=== PATIENT | female | born 1995 | race Caucasian/White ===

== ENCOUNTER 2017-11-08 05:49 | Emergency (ER) | payer MEDICAID, SELFPAY ==
[2017-11-08 05:50] VITALS: BP 150/94; PULSE 70; RESP 18; TEMP 36.5; O2SAT 96; BMI 27.6
--- NOTE | 2017-11-08 05:52 | ED.VISSUMM ---
- ER Visit Summary Date of Service: 11/08/17 Chief Complaint: [] Nausea and vomiting and diarrhea after eating [employer] History of Present Illness: The patient is a 21 F developed nausea vomiting 5 hours ago after eating pasta [employer]. 5 episodes of loose watery diarrhea. No home treatment. She has some stomach cramps diffusely. Physical Examination: Vital signs reviewed General: Well-nourished well-developed Head: Normocephalic atraumatic Eyes: Pupils equal round and reactive to light extraocular movements intact ENT: TMs clear no hemotympanum no trauma Neck: Nontender full range of motion Cardiovascular: Regular rate rhythm no murmurs normal S1-S2 Respiratory: No distress clear to auscultation bilaterally chest nontender Abdomen: Soft nontender nondistended normal bowel sounds no masses Back: Nontender no CVA tenderness Extremities: Nontender active range of motion ?4 extremities no trauma Skin: Normal color no trauma Neuro alert oriented cranial nerves II through XII intact normal strength sensation reflexes Test Results: [] Emergency Department Course and Treatment: This time patient has no evidence of dehydration. Resting comfortably. Given oral Zofran and Imodium. Offer IV fluids but patient declined. I do not feel she needs labs. Should last less than a day. I think she has food poisoning. Given a prescription for Zofran for home and will continue Imodium and Pepto-Bismol. Treatment Plan: [] Disposition: [] Impression: [] Nausea vomiting diarrhea suspected food poisoning This note was generated with [employer] dictation software. It may contain incorrect words, spelling, and punctuation that were not noted in review of the chart prior to signing ED Disposition - Plan for ED Patient: Chief Complaint: Nausea/Vomiting/Diarrhea Referrals: David Mckinney MD [Primary Care Provider] -
--- NOTE | 2017-11-08 05:53 | ED.DEP ---
ED Disposition - Plan for ED Patient: Disposition: Home or Assisted Living Chief Complaint: Nausea/Vomiting/Diarrhea Instructions: ED Gastroenteritis Vs Food Poison Prescriptions: Ondansetron [Zofran Odt] 8 mg PO Q8H PRN PRN #10 tab PRN Reason: Nausea Referrals: David Mckinney MD [Primary Care Provider] -
[2017-11-08] MEDS: Ondansetron ODT 4 MG Tablet 8 MG PO (05:57)
== END 2017-11-08 06:08 | disposition home or self-care (01) ==
LOC: ED 06:05
PROVIDERS: Emergency Provider Emergency Medicine; Family Provider Family Medicine; PCP Family Medicine
DX: R11.2 Nausea with vomiting, unspecified (principal); R19.7 Diarrhea, unspecified
CPT/HCPCS: 99283

== ENCOUNTER 2017-12-28 23:31 | Emergency (ER) | payer MEDICAID, SELFPAY ==
[2017-12-28 23:33] VITALS: BP 146/97; PULSE 85; RESP 14; TEMP 36.7; O2SAT 97; BMI 28.3
--- NOTE | 2017-12-29 01:38 | ED.DEP ---
ED Disposition - Plan for ED Patient: Chief Complaint: Wound Check Instructions: ED Fingernail Infec Referrals: David Mckinney MD [Primary Care Provider] -
[2017-12-29 01:51] VITALS: BP 148/99; PULSE 57; O2SAT 100
--- NOTE | 2017-12-29 01:55 | NURSING ---
DRY DRESSING APPLIED TO RIGHT MIDDLE FINGER TO ABSORB DRAINAGE.
--- NOTE | 2017-12-29 02:21 | ED.DCSUM_ITS ---
- ER Visit Summary Date of Service: 12/29/17 Chief Complaint: Right middle finger infection History of Present Illness: The patient is a 22 F presenting with right middle finger infection. She states this started last Friday. She was seen by her primary care physician on Friday and was put on Keflex. Her symptoms have not improved. She complains of persistent pain in the right middle finger. Denies fever. Denies other complaints. Physical Examination: Vitals are stable. Patient is afebrile. Alert no acute distress. HEENT exam is unremarkable. Neck is supple. Lungs are clear and equal bilaterally. Heart is regular rate and rhythm. Extremities right middle finger paronychia with no evidence of felon. Skin is warm and dry. No focal neurologic deficit. Remainder of exam is unremarkable. Emergency Department Course and Treatment: Digital block was performed. I&D was performed. Incised with 11 blade, small amount of pus was drained. Irrigated with saline. Patient tolerated this well. Advised to continue her antibiotics until complete. Advised to watch for worsening signs of infection. Advised to follow up with primary care physician. Advised return to ED if worsening complaints. Disposition: Discharge home Impression: Right middle finger paronychia, I&D This note was generated with [employer] dictation software. It may contain incorrect words, spelling, and punctuation that were not noted in review of the chart prior to signing ED Disposition - Plan for ED Patient: Disposition: Home or Assisted Living Chief Complaint: Wound Check Instructions: ED Fingernail Infec Referrals: David Mckinney MD [Primary Care Provider] -
== END 2017-12-29 01:55 | disposition home or self-care (01) ==
PROVIDERS: Emergency Provider Emergency Medicine; Family Provider Family Medicine; PCP Family Medicine
DX: L03.011 Cellulitis of right finger (principal); Z72.0 Tobacco use
CPT/HCPCS: 10060; 99282

== ENCOUNTER 2018-01-12 16:56 | Emergency (ER) | payer MEDICAID, SELFPAY ==
[2018-01-12 16:57] VITALS: BP 149/75; PULSE 98; RESP 16; TEMP 36.8; O2SAT 97; BMI 27.4
[2018-01-12 17:46] VITALS: O2SAT 99
--- NOTE | 2018-01-12 17:46 | ED.VISSUMM ---
- ER Visit Summary Date of Service: 01/12/18 Chief Complaint: [Cough] History of Present Illness: The patient is a 22 F [presents the emergency department with complaint of a cough that started about 4 days ago. Patient states that she was in [place] with family members and everybody got sick once they came back home. Patient's complaining of a sore throat and pain in both ears. Patient had low-grade fever up to 100 home. Patient is coughing up some clear phlegm at times. He denies any shortness of breath.] Physical Examination: [HEENT-PERRLA, EOMI. Cranial nerves II through XII grossly intact. TMs clear. Mucous membranes moist. No adenopathy. No pharyngeal erythema or exudates. Uvula in midline. No trismus. Cardiovascular-regular rate and rhythm without murmur or ectopy Lungs-clear to auscultation, chest wall stable without crepitus or subcu emphysema Abdomen-normoactive bowel sounds, soft, nontender, no rebound or rigidity, no peritoneal signs. Extremities-intact ?4, normal range of motion, normal pulses, atraumatic] Test Results: [None indicated] Emergency Department Course and Treatment: [I discussed with patient that I felt patient likely had a viral upper respiratory infection and recommended symptomatic treatment with antitussive. Patient advised to use ibuprofen and Tylenol for discomfort] Treatment Plan: [Patient follow-up primary care physician in 5-7 days. Patient will be given a prescription for Tessalon Perles] Disposition: [Discharged home in stable condition] Impression: [Viral upper respiratory infection] This note was generated with [employer] dictation software. It may contain incorrect words, spelling, and punctuation that were not noted in review of the chart prior to signing ED Disposition - Plan for ED Patient: Chief Complaint: Cold Sx Referrals: David Mckinney MD [Primary Care Provider] -
--- NOTE | 2018-01-12 17:48 | ED.DEP ---
ED Disposition - Plan for ED Patient: Chief Complaint: Cold Sx Instructions: ED Upper Resp Infec No Abx Tx Prescriptions: Benzonatate [Tessalon Perle] 200 mg PO TID PRN PRN #20 cap PRN Reason: Cough Referrals: David Mckinney MD [Primary Care Provider] - 5-7 Days
== END 2018-01-12 18:04 | disposition home or self-care (01) ==
PROVIDERS: Emergency Provider Emergency Medicine; Family Provider Family Medicine; PCP Family Medicine
DX: J06.9 Acute upper respiratory infection, unspecified (principal); Z72.0 Tobacco use
CPT/HCPCS: 99282

== ENCOUNTER 2018-03-13 14:35 | Emergency (ER) | payer MEDICAID, SELFPAY ==
[2018-03-13 14:36] VITALS: BP 129/84; PULSE 75; RESP 16; TEMP 37; O2SAT 98; BMI 27.9
--- NOTE | 2018-03-13 15:41 | ED.DCSUM_ITS ---
- ER Visit Summary Date of Service: 03/13/18 Chief Complaint: Sore throat History of Present Illness: The patient is a 22 F no significant past medical or surgical history. I have a 2-day history of sore throat. Patient also thinks she is early . Her menstrual periods several days late. She denies abdominal pain. She denies any pelvic pain or vaginal bleeding. She denies any fever. She has had some chills. Physical Examination: Vital signs are stable. Afebrile. Pulse ox 90% on room air no signs of hypoxia. Patient no distress. Does not look septic or toxic. H EENT exam minimal erythema posterior pharynx. Tonsils are not enlarged. They are not touching. Airway is patent. No exudate. No peritonsillar abscess. No drooling. No stridor. TMs are normal. Neck nontender. One mildly tender lymph node on the left. Trachea midline. Lungs clear to auscultation bilaterally. Heart regular rhythm no murmur. Abdomen soft and nontender. Normal bowel sounds. No peritoneal signs. Moving all 4 extremities. Neurovascular intact. Skin unremarkable. No rashes. Back nontender. Neurologically she is awake alert without focal motor deficits. Test Results: Discussed with patient and she deferred a rapid strep. She is already taken a test at home that was positive also. Emergency Department Course and Treatment: Clinically this appears to be a viral pharyngitis. She has no exudate. No significant lymphadenopathy. Treatment Plan: Plenty of fluids and rest. Warm salt water gargling. Chloraseptic spray. Tylenol. Disposition: Discharge Impression: Acute viral pharyngitis Reportedly first trimester This note was generated with [employer] (ac[employer] dictation software. It may contain incorrect words, spelling, and punctuation that were not noted in review of the chart prior to signing ED Disposition - Plan for ED Patient: Chief Complaint: Sore Throat Referrals: David Mckinney MD [Primary Care Provider] -
--- NOTE | 2018-03-13 15:41 | ED.DEP ---
ED Disposition - Plan for ED Patient: Disposition: Home or Assisted Living Chief Complaint: Sore Throat Instructions: ED Pharyngitis Viral Prescriptions: Amoxicillin 500 mg PO Q8 #30 tab Referrals: David Mckinney MD [Primary Care Provider] - 1 Week if not improving Additional Instructions: Plenty of fluids and rest. Warm salt water gargling. Chloraseptic spray. Tylenol for pain. If sore throat is getting worse instead of better you may take in 3 days but more than likely this is a virus and antibiotics will do you know good.
== END 2018-03-13 15:49 | disposition home or self-care (01) ==
PROVIDERS: Emergency Provider Emergency Medicine; Family Provider Family Medicine; PCP Family Medicine
DX: J02.9 Acute pharyngitis, unspecified (principal); Z32.01 Encounter for pregnancy test, result positive
CPT/HCPCS: 99282

== ENCOUNTER → 2018-03-25 20:31 | Outpatient (CLI) | payer MEDICAID, SELFPAY ==
[2018-03-25 22:22] LABS: Chlamydia Trachomatis by PCR Negative (Negative); Neisserai gonorrhoeae by PCR Negative (Negative); Probe Check PASS; Sample Adequacy Control PASS; Specimen Processing Control PASS
== END ==
PROVIDERS: Referring Provider Obstetrics & Gynecology; Visit Provider Obstetrics & Gynecology
DX: Z12.4 Encounter for screening for malignant neoplasm of cervix (principal); Z11.3 Encounter for screening for infections with a predominantly sexual mode of transmission
CPT/HCPCS: 87491; 87591; 88175; G0145

== ENCOUNTER → 2018-04-09 11:20 | Outpatient (CLI) | payer MEDICAID, SELFPAY ==
[2018-04-09 14:15] LABS: Absolute Lymphocyte Count 1.44 X10^3/ul (0.83-4.51); Basophil# 0.02 X10^3/uL; Basophil% 0.3 % (0-1); Color, Urine Yellow (Yellow); Eosinophil# 0.16 X10^3/uL; Eosinophils% 2.6 % (0-5); Glucose, Dipstick Normal (Normal); Hematocrit 37.8 % (37-47); Ketone-Dipstick Negative (Negative); Leukocyte Esterase-Dipstick 25 /ul (Negative); Lymphocyte # 1.44 X10^3/ul (4.0); Lymphocyte % 23.5 % (19-41); Mean Corp Hgb Conc 31.7 g/gl (32-36); Mean Corpuscular Hgb 26.1 pg (27.0-32.0); Mean Corpuscular Volume 82.4 fL (81-99); Mean Platelet Vol. 12.3 fl (6.2-12.0); Monocyte# 0.53 X10^3/uL; Monocyte% 8.7 % (0-10); Neutrophil # 3.96 X10^3/uL (2.7-7.7); Neutrophil % 64.7 % (47-70); Nitrite-Dipstick Negative (Negative); Occult Blood-Urine Negative /ul (Negative); POSITIVE COUNT NO; POSITIVE DIFFERENTIAL NO; POSITIVE MORPHOLOGY NO; Platelet Count 167 K/mm3 (150-450); Protein-Dipstick Negative (Negative); RBC Distribution Width CV 15.4 % (11.6-14.6); RBC Distribution Width SD 46.4 fl (35.1-43.9); Red Blood Count 4.59 M/mm3 (4.2-5.4); Urine Bilirubin Dipstick Negative (Negative); Urine Clarity Sl. Cloudy (Clear); Urine Urobilinogen 1 mg/dl (Normal); White Blood Count 6.1 K/mm3 (4.4-11.0)
[2018-04-09 14:29] LABS: Amphetamine Urine VISTA NEGATIVE (<1000 ng/mL); Barbiturate Urine VISTA NEGATIVE (< 200 ng/mL); Benzodiazepine Urine VISTA NEGATIVE (< 200 ng/mL); Cocaine Urine VISTA NEGATIVE (< 300 ng/mL); Ecstacy Urine VISTA NEGATIVE (< 500 ng/mL); Methadone Urine VISTA NEGATIVE (< 300 ng/mL); PCP Urine VISTA NEGATIVE (< 25 ng/mL); THC Urine VISTA NEGATIVE (< 50 ng/mL); Vista UDS pH Range 7
[2018-04-09 14:31] LABS: Thyroid Stim Hormone (TSH) 0.15 uIU/mL (0.358-3.74)
[2018-04-09 15:11] LABS: HIV - WCH Non-Reactive (Nonreactive); Rubella IgG 76.5 IU/mL
[2018-04-10 05:27] LABS: Prenatal RPR NONREACTIVE (NONREACTIVE)
[2018-04-10 08:21] LABS: HEPATITIS B SURFACE AG Negative (Negative); Hep C Antibodies <0.1 s/co ratio (0.0-0.9)
== END ==
PROVIDERS: Visit Provider Obstetrics & Gynecology
DX: Z34.81 Encounter for supervision of other normal pregnancy, first trimester (principal)
CPT/HCPCS: 36415; 80307; 81002; 84443; 85025; 86703; 86762; 86803; 87340

== ENCOUNTER 2018-04-09 16:27 | Emergency (ER) | payer MEDICAID, SELFPAY ==
[2018-04-09 16:28] VITALS: BP 161/99; PULSE 83; RESP 18; TEMP 37.1; O2SAT 98; BMI 27.9
--- NOTE | 2018-04-09 16:49 | EKG12_ITS ---
Test Reason : SYNCOPE Blood Pressure : / mmHG Vent. Rate : 062 BPM Atrial Rate : 062 BPM P-R Int : 138 ms QRS Dur : 076 ms QT Int : 418 ms P-R-T Axes : 017 059 016 degrees QTc Int : 424 ms Sinus rhythm with marked sinus arrhythmia Otherwise normal ECG Confirmed by SINAN TURNER, MONET ([id number]), communications editor VERENICE SCHERER ([id number] on 04/13/2018 12:45:41 PM Referred By: LEAH Confirmed By:MONET MENON MD
[2018-04-09] MEDS: 0.9% Normal Saline 1,000 ML 1000 ML IV (17:16)
[2018-04-09] MEDS: Ondansetron 4 MG/2 ML Vial IV (17:17)
[2018-04-09 17:52] VITALS: BP 120/70; BP 128/70; BP 128/72; BP 132/75; PULSE 70; PULSE 75; PULSE 78; PULSE 80; RESP 14; O2SAT 98
[2018-04-09 18:01] LABS: Anion Gap 7 (5-15); BUN 11 mg/dL (7-18); BUN/Creat Ratio 18.6 RATIO (10-20); Calcium,Total 9.1 mg/dL (8.5-10.1); Chloride 106 mmol/L (98-107); Creatinine, Serum 0.59 mg/dL (0.55-1.02); EST Glomerular Filtration Rate 136 mL/min (>60); Est Glom Filt Rate - Afr Amer 164 mL/min (>60); Estimated Creatinine Clearance 135.72 ml/min; Glucose 72 mg/dL (74-106); Potassium 3.9 mmol/L (3.5-5.1); Sodium Level 138 mmol/L (136-145)
--- NOTE | 2018-04-09 18:22 | ED.VISSUMM ---
- ER Visit Summary Date of Service: 04/09/18 Chief Complaint: Syncope History of Present Illness: The patient is a [address] Dotson and Dr. David Mckinney. She reports that she is a at 9 weeks . States that she had blood work this morning approximately 1130. She had a few crackers at noon, but has not eaten otherwise today. 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 States that she felt very hot. No diaphoresis. No chest pain, abdominal pain, or shortness of breath. She went into the bathroom and vomited twice. No blood or emesis. When walking back out of the bathroom she had a syncopal episode. She denies any injuries. She has never had anything like this before. Patient denies any vaginal bleeding or discharge. Physical Examination: Vitals: Stable. Afebrile. General: Well-nourished and well-developed. Head: Normocephalic atraumatic. Neck: Supple, no lymphadenopathy. No JVD. Nontender. Cardiovascular: Regular rate and rhythm. No murmurs. Respiratory: No respiratory distress. Clear to auscultation bilaterally. Abdominal: Soft, nontender, nondistended, normal bowel sounds. No guarding, rebound, or peritoneal signs. Back: Nontender. Extremities: Nontender, no edema. Skin: Normal color, no rash. Neurologic: Alert and oriented ?3. Cranial nerves II through XII are intact. Normal strength and sensation. Psych: Normal affect. Test Results: EKG is sinus at 62 with normal intervals. CBC is normal. Chem-7 is remarkable for a glucose of 72. UA is negative. TSH is 0.15. Emergency Department Course and Treatment: Patient was given a liter of normal saline. She is resting comfortably. She had negative orthostatic vital signs while here. Treatment Plan: Patient was discussed with Dr. Dotson. He reports that that TSH is normal for this stage of . She will be discharged with instructions to push fluids. Eat small frequent meals. Follow-up with Dr. Mckinney in 1-2 days if not improving. Return to the emergency department for any worsening symptoms. Disposition: To home in improved and stable condition. Impression: 1. Syncope. 2. First trimester . 3. Hypoglycemia. This note was generated with [employer] dictation software. It may contain incorrect words, spelling, and punctuation that were not noted in review of the chart prior to signing ED Disposition - Plan for ED Patient: Disposition: Home or Assisted Living Chief Complaint: Syncope Instructions: ED Fainting Unkn Cause Referrals: David Mckinney MD [Primary Care Provider] - 1-2 Days if not improving
[2018-04-09 18:42] VITALS: BP 118/70; PULSE 80; RESP 18; O2SAT 98
== END 2018-04-09 18:44 | disposition home or self-care (01) ==
LOC: ED 16:52
PROVIDERS: Emergency Provider Emergency Medicine; Family Provider Family Medicine; PCP Family Medicine
DX: O26.891 Other specified pregnancy related conditions, first trimester (principal); R55 Syncope and collapse; E16.2 Hypoglycemia, unspecified; Z3A.09 9 weeks gestation of pregnancy
CPT/HCPCS: 36415; 80048; 80307; 81002; 84443; 85025; 86703; 86762; 86803; 87340; 93005; 96361; 96374; 99284; J7030; J2405

== ENCOUNTER 2018-05-16 12:27 | Emergency (ER) | payer MEDICAID, SELFPAY ==
[2018-05-16 12:27] VITALS: BP 137/74; PULSE 104; RESP 14; TEMP 36.4; O2SAT 98; BMI 29.7
--- NOTE | 2018-05-16 12:51 | US_ITS ---
STUDY: SECOND AND THIRD TRIMESTER OBSTETRICAL ULTRASOUND - LIMITED REASON FOR EXAM: Female, 22 years old. Patient with pain. Evaluate well-being. LMP: 02/07/2018. PRIOR ULTRASOUND: None. TECHNIQUE: Transabdominal TECHNICAL QUALITY: Adequate. FINDINGS: There is a single intrauterine fetus. Fetus is in a variable presentation. There is demonstrated cardiac activity with a heart rate of 139 bpm. There is a normal amniotic fluid volume. The largest amniotic fluid pocket measures 3.5 cm. The amniotic fluid index (EDE) is measured. The placenta is posterior with a complete previa. There are Grade 0 placental changes. The cervix measures 3.9 cm cm in length. BIOMETRY: BPD: 27 mm: 14 weeks, 6 days HC: 98 mm: 14 weeks, 4 days AC: 80 mm: 14 weeks, 3 days FL: 13 mm: 14 weeks, 0 days Age by LMP: 14 weeks, 0 days. JANE by LMP: 11/14/2018. age by current US: 14 weeks, 3 days. JANE by current US: 11/11/2018. Estimated weight: 92 grams, +/- 14 grams, 48 percentile. US/OB Limited With Biometrics IMPRESSION: 1. Single live intrauterine fetus in variable presentation with an estimated gestational age of 14 weeks and 3 days. The JANE is 11/11/2018. 2. Posterior placenta with complete previa. 3. Follow-up exams are recommended. Electronically Signed: William Deutsch MD at 14:42 EST Tel , Service support ,
[2018-05-16] MEDS: 0.9% Normal Saline 1,000 ML 1000 ML IV (13:30)
[2018-05-16 14:03] LABS: Red Blood Cells-Urine 0 SEEN /hpf (0-5)
[2018-05-16 14:04] VITALS: RESP 18
[2018-05-16 14:11] LABS: Color, Urine Yellow (Yellow); Glucose, Dipstick Normal (Normal); Ketone-Dipstick 5 mg/dl (Negative); Leukocyte Esterase-Dipstick 100 /ul (Negative); Nitrite-Dipstick Negative (Negative); Occult Blood-Urine Negative /ul (Negative); Protein-Dipstick 15 mg/dl (Negative); Urine Bilirubin Dipstick Negative (Negative); Urine Clarity Sl. Cloudy (Clear); Urine Urobilinogen 1 mg/dl (Normal)
[2018-05-16 14:20] LABS: Bacteria 1+ /hpf (None Seen); Mucous, Urine 1+ /hpf (<or=2+); Squamous Epithelial Cells - UA 0-5 SEEN /hpf (5-10); White Blood Cells 0-5 SEEN /hpf (0-5)
--- NOTE | 2018-05-16 16:47 | ED.RN ---
PT LEFT ED PRIOR TO DC, PHYSICIAN NOTIFIED. PHYSICIAN TO CALL PT VIA PHONE FOR RESULTS REVIEW.
--- NOTE | 2018-05-16 16:53 | ED.VISSUMM ---
- ER Visit Summary Date of Service: 05/16/18 Chief Complaint: Abdominal pain vaginal bleeding History of Present Illness: The patient is a 22 F who was at 14 weeks has pelvic cramping only when she stands up. She had vaginal bleeding and spotting 1 week ago but that had resolved. She has no urinary symptoms. Physical Examination: Not appear in acute distress. Moist mucous membranes, no obvious facial deformity No C-spine tenderness supple neck. Regular rate and rhythm without any obvious murmurs Clear lungs bilaterally speaking in full sentences without any obvious respiratory distress Abdomen soft and nontender no guarding or rebound patient had no abdominal pain to palpation when she is lying down. exam was not done initially, patient eloped prior to me being able to do a pelvic exam. Moves all extremities without any difficulty or pain. Skin does not show any obvious rashes or lesions, no trauma. Alert oriented ?3 with no gross focal deficit Emergency Department Course and Treatment: Patient is found to have a placenta previa, this explains her symptoms. The ultrasound was done and patient apparently eloped prior to me being able to tell the patient about the diagnosis. I tried to call the phone number on record under the demographic sheet and this was unavailable. We will attempt to reach her via mail. 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 Disposition: Eloped prior to full evaluation Impression: Placenta previa This note was generated with [employer] dictation software. It may contain incorrect words, spelling, and punctuation that were not noted in review of the chart prior to signing ED Disposition - Plan for ED Patient: Chief Complaint: Abd Pain Referrals: David Mckinney MD [Primary Care Provider] -
--- NOTE | 2018-05-16 16:56 | ED.DCSUM_ITS ---
- ER Visit Summary Date of Service: 05/16/18 Chief Complaint: Abdominal pain vaginal bleeding History of Present Illness: The patient is a 22 F who was at 14 weeks has pelvic cramping only when she stands up. She had vaginal bleeding and spotting 1 week ago but that had resolved. She has no urinary symptoms. Physical Examination: Not appear in acute distress. Moist mucous membranes, no obvious facial deformity No C-spine tenderness supple neck. Regular rate and rhythm without any obvious murmurs Clear lungs bilaterally speaking in full sentences without any obvious respiratory distress Abdomen soft and nontender no guarding or rebound patient had no abdominal pain to palpation when she is lying down. exam was not done initially, patient eloped prior to me being able to do a pelvic exam. Moves all extremities without any difficulty or pain. Skin does not show any obvious rashes or lesions, no trauma. Alert oriented ?3 with no gross focal deficit Emergency Department Course and Treatment: Patient is found to have a placenta previa, this explains her symptoms. The ultrasound was done and patient apparently eloped prior to me being able to tell the patient about the diagnosis. I tried to call the phone number on record under the demographic sheet and this was unavailable. We will attempt to reach her via mail. 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 Disposition: Eloped prior to full evaluation Impression: Placenta previa This note was generated with [employer] dictation software. It may contain incorrect words, spelling, and punctuation that were not noted in review of the chart prior to signing ED Disposition - Plan for ED Patient: Chief Complaint: Abd Pain Referrals: David Mckinney MD [Primary Care Provider] -
--- NOTE | 2018-05-16 17:16 | ED.VISSUMM ---
- ER Visit Summary Date of Service: 05/16/18 Chief Complaint: [] History of Present Illness: The patient is a 22 F [] Physical Examination: [] Test Results: [] Emergency Department Course and Treatment: [] Treatment Plan: [] Disposition: [] Impression: [] This note was generated with [employer] dictation software. It may contain incorrect words, spelling, and punctuation that were not noted in review of the chart prior to signing ED Disposition - Plan for ED Patient: Chief Complaint: Abd Pain Instructions: Placenta Previa Referrals: David Mckinney MD [Primary Care Provider] - Additional Instructions: You left the emergency department prior to full evaluation. Your ultrasound is significant for something called placenta previa. This can have significant consequences on the life of your baby. 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 We attempted to call you but the number he gave us is out of service.
--- NOTE | 2018-05-16 17:18 | ED.DEP ---
ED Disposition - Plan for ED Patient: Chief Complaint: Abd Pain Instructions: Placenta Previa Referrals: David Mckinney MD [Primary Care Provider] - Additional Instructions: You left the emergency department prior to full evaluation. Your ultrasound is significant for something called placenta previa. This can have significant consequences on the life of your baby. 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 We attempted to call you but the number he gave us is out of service.
--- NOTE | 2018-05-16 19:29 | ED.RN ---
contact [facility] MARKETING UNDERWRITER about patient US results and Dr. Segal results. scallop raker nurse made aware of results . They will follow the patient at this time. no need for emergent follow up at this time
== END 2018-05-16 16:15 | disposition home or self-care (01) ==
LOC: ED 13:43
PROVIDERS: Emergency Provider Emergency Medicine; Family Provider Family Medicine; PCP Family Medicine
DX: O44.12 Complete placenta previa with hemorrhage, second trimester (principal); Z3A.14 14 weeks gestation of pregnancy
CPT/HCPCS: 76816; 81001; 96360; 99282; J7030; A4216

== ENCOUNTER → 2018-05-20 16:45 | Outpatient (CLI) | payer MEDICAID, SELFPAY ==
[2018-05-16 12:27] VITALS: BMI 29.7
--- OUTSIDE RECORDS SUMMARY | 2018-07-16 02:52 | XMS RPT_ITS ---
:1995 Author Organization OHIP Support Name Relationship Address Phone REBEKAH HURD Unavailable [address] + [place] [address] FIVE BELOW Unavailable [address] + [place] [address] REBEKAH HRUD Unavailable [address] + [place] [address] FIVE BELOW Unavailable [address] + [place] [address] REBEKAH HURD Unavailable [address] + [place] [address] SAVEALOT Unavailable [address] + [place] [address] REBEKAH HURD Unavailable [address] + [place] [address] SAVEALOT Unavailable [address] + [place] [address] REBEKAH HURD Unavailable [address] + [place] [address] LONG STEVEN SILVER Unavailable [address] + [place] [address] REBEKAH HURD Unavailable [address] + [place] [address] LONG STEVEN SILVER Unavailable . +. [place] [address] REBEKAH HURD Unavailable [address] + [place] [address] UE Unavailable Unavailable Unavailable REBEKAH HURD Unavailable [address] + [place] [address] UE Unavailable Unavailable Unavailable REBEKAH HURD Unavailable [address] + [place] [address] UE Unavailable Unavailable Unavailable REBEKAH HURD Unavailable [address] + [place] [address] VANNESSA ACOSTA Unavailable [address] [facility] [address] [address] UE Unavailable Unavailable Unavailable Care Team Providers Name Role Phone Mckinney, David Primary Care Unavailable Raul Yadav Attending Unavailable Mckinney, David Attending Unavailable Mckinney, David Primary Care Unavailable Mckinney, David Primary Care Unavailable Sarah Balderrama Attending Unavailable Mckinney, David Primary Care Unavailable Frank Boogie Attending Unavailable Mckinney, David Primary Care Unavailable Cesar Bertrand Attending Unavailable Gonzalo Dotson Attending Unavailable Gonzalo Dotson Referring Unavailable Gonzalo Dotson Attending Unavailable Jaydon López Attending Unavailable Mckinney, David Primary Care Unavailable Mckinney, David Primary Care Unavailable Alex Segal Attending Unavailable Gonzalo Dotson Attending Unavailable PROBLEMS PROBLEMS DATE TYPE CONDITION / CODE ATTENDING STATUS SOURCE 05/20/2018 Unknown Z34.81 - Gonzalo Dotson Active [place] Encounter for Community supervision of Hospital other normal Repository , first trimester / Z34.81(ICD-10) 05/20/2018 Unknown N39.0 - Urinary Gonzalo Dotson Active [place] tract infection, Community site not Hospital specified / Repository N39.0(ICD-10) 03/26/2018 Unknown Z12.4 - Encounter Gonzalo Dotson for screening for [facility] neoplasm of Repository cervix / Z12.4(ICD-10) PROCEDURES PROCEDURES No Procedure Records FoundRESULTS RESULTS Observed: 05/20/2018 Status: F Source: [place] CULTURE, URINE 3:00 PM [facility] REPOSITORY Urine Culture ORGANISM 1: Staphylococcus epidermidis [place] Count >100,000 Staphylococcus epidermidis: REACTION Benzylpenicillin NF >=0.5 R Cefoxitin *NF - Inducable Clindamycin Resistan - Gentamicin $ <=0.5 S Levofloxacin $ <=0.12 S Linezolid $$$$ 1 S Nitrofurantoin $ <=16 S Oxacillin NF <=0.25 S Rifampin $$ <=0.5 S Tetracycline NF <=1 S Vancomycin $ 1 S (NF) indicates non-formulary drug at [facility]. Approval by Infectious Disease Specialist required before non-formulary drugs may be ordered and/or dispensed. * CLSI guidelines does not recommend testing of cephalosporins. This interpretation is deduced from Beta-lactam/penicillin results. Performed By: #### M100.0650 #### [facility] [address] [place], [address] DISCHARGE INSTRUCTION Observed: 05/16/2018 Status: F Source: [place] 5:19 PM [facility] REPOSITORY [facility] Medical Records Department [address] [place] [address] Discharge Instruction 05/16/188 MR#: [id number] Acct: [id number] Name: NAE HOANG Rep #: [id number] : 1995 From: Alex Segal MD PCP: David Mckinney MD Status: REG ER ED Disposition - Plan for ED Patient: Chief Complaint: Abd Pain Instructions: Placenta Previa Referrals: David Mckinney MD [Primary Care Provider] - Additional Instructions: You left the emergency department prior to full evaluation. Your ultrasound is significant for something called placenta previa. This can have significant consequences on the life of your baby. You are not to have any sexual activity, your to be on light duty and bedrest, and you need to see her FINANCIAL SPECIALIST doctor right away. We attempted to call you but the number he gave us is out of service. What to do if you have Problems For any increased pain, shortness of breath, bleeding, nausea or vomiting, chest pain, or any unexpected problems, contact your Primary Care Provider. Call [facility] ([phone]) or report to the closest Emergency Room. Call 911 if necessary. 05/16/18 1719 <Electronically signed by Alex Segal MD> Date Alex Segal MD Cosigner Signature (If Indicated): Date CC: David Mckinney MD EMERGENCY DEPARTMENT Observed: 05/16/2018 Status: F Source: [place] SUMMARY 5:18 PM [facility] REPOSITORY [facility] Medical Records Department [address] [place] [address] Emergency Department Summary 05/16/18 1716 MR#: [id number] Acct: [id number] Name: NAE HOANG Rep #: [id number] : 1995 22 From: Alex Segal MD PCP: David Mckinney MD Status: REG ER - ER Visit Summary Date of Service: 05/16/18 Chief Complaint: [] History of Present Illness: The patient is a 22 F [] Physical Examination: [] Test Results: [] Emergency Department Course and Treatment: [] Treatment Plan: [] Disposition: [] Impression: [] This note was generated with Rent the Runwayation software. It may contain incorrect words, spelling, and punctuation that were not noted in review of the chart prior to signing ED Disposition - Plan for ED Patient: Chief Complaint: Abd Pain Instructions: Placenta Previa Referrals: David Mckinney MD [Primary Care Provider] - Additional Instructions: You left the emergency department prior to full evaluation. Your ultrasound is significant for something called placenta previa. This can have significant consequences on the life of your baby. You are not to have any sexual activity, your to be on light duty and bedrest, and you need to see her FINANCIAL SPECIALIST doctor right away. We attempted to call you but the number he gave us is out of service. What to do if you have Problems For any increased pain, shortness of breath, bleeding, nausea or vomiting, chest pain, or any unexpected problems, contact your Primary Care Provider. Call [facility] ([phone]) or report to the closest Emergency Room. Call 911 if necessary. 05/16/18 1718 <Electronically signed by Alex Segal MD> Date Alex Segal MD Cosigner Signature (If Indicated): Date CC: David Mckinney MD EMERGENCY DEPARTMENT Observed: 05/16/2018 Status: F Source: [place] SUMMARY 4:56 PM [facility] REPOSITORY [facility] Medical Records Department [address] [place] [address] Emergency Department Summary 05/16/18 1653 MR#: [id number] Acct: [id number] Name: NAE HOANG Rep #: [id number] : 1995 22 From: Alex Segal MD PCP: David Mckinney MD Status: REG ER - ER Visit Summary Date of Service: 05/16/18 Chief Complaint: Abdominal pain vaginal bleeding History of Present Illness: The patient is a 22 F who was at 14 weeks has pelvic cramping only when she stands up. She had vaginal bleeding and spotting 1 week ago but that had resolved. She has no urinary symptoms. Physical Examination: Not appear in acute distress. Moist mucous membranes, no obvious facial deformity No C-spine tenderness supple neck. Regular rate and rhythm without any obvious murmurs Clear lungs bilaterally speaking in full sentences without any obvious respiratory distress Abdomen soft and nontender no guarding or rebound patient had no abdominal pain to palpation when she is lying down. exam was not done initially, patient eloped prior to me being able to do a pelvic exam. Moves all extremities without any difficulty or pain. Skin does not show any obvious rashes or lesions, no trauma. Alert oriented 3 with no gross focal deficit Emergency Department Course and Treatment: Patient is found to have a placenta previa, this explains her symptoms. The ultrasound was done and patient apparently eloped prior to me being able to tell the patient about the diagnosis. I tried to call the phone number on record under the demographic sheet and this was unavailable. We will attempt to reach her via mail. She needs to be on bedrest and see her FINANCIAL SPECIALIST doctor right away. Disposition: Eloped prior to full evaluation Impression: Placenta previa This note was generated with Rent the Runwayation software. It may contain incorrect words, spelling, and punctuation that were not noted in review of the chart prior to signing ED Disposition - Plan for ED Patient: Chief Complaint: Abd Pain Referrals: David Mckinney MD [Primary Care Provider] - What to do if you have Problems For any increased pain, shortness of breath, bleeding, nausea or vomiting, chest pain, or any unexpected problems, contact your Primary Care Provider. Call [facility] ([phone]) or report to the closest Emergency Room. Call 911 if necessary. 05/16/18 2216 <Electronically signed by Alex Segal MD> Date Alex Segal MD Cosigner Signature (If Indicated): Date CC: David Mckinney MD URINALYSIS, COMPLETE Collected: 05/16/2018 Status: F Source: [place] 1:50 PM [facility] REPOSITORY Order Comment: Order Date: 05/16/18 Has pt arrived? Y How was Urine Obtained? CLEAN CATCH TYPE CODE TESTS RESULT OUT OF RANGE REFERENCE UNITS LAB L400.3000 Yellow COLOR Normal Yellow LAB L400.3050 Clear Normal CLARITY Sl. Cloudy LAB L400.3200 Normal mg/dl Normal GLUCOSE, UR Normal LAB L400.3300 Negative mg/dL Normal BILIRUBIN URINE Negative LAB L400.3400 Negative mg/dl High 5 KETONE UR LAB L400.3465 1.002-1.030 Normal SP.GR. DIPSTX 1.030 LAB L400.3550 5.0 - 8.0 pH UR Normal 5.0 LAB L400.3600 Negative mg/dl High PROT 15 DIPSTX LAB L400.3700 Normal mg/dl High 1 UROBILI LAB L400.3750 Negative Normal NITRITE UR Negative LAB L400.3780 Negative /ul Normal OCCULT BLOOD-UR Negative LAB L400.3800 Negative /ul High LEUK ESTERASE 100 LAB L400.4050 0-5 /hpf WBC Normal 0-5 SEEN LAB L400.4100 0-5 /hpf 0 Normal RBC-UA SEEN LAB L400.4150 5-10 /hpf SQUAM Normal EPI 0-5 SEEN LAB L400.4300 None Seen /hpf 1+ Normal BACTERIA LAB L400.4350 <or=2+ /hpf 1+ Normal MUCUS, URINE Performed By: #### L400.0001 #### [facility] [address] [place], [address] OB LIMITED WITH Observed: 05/16/2018 Status: F Source: [place] BIOMETRICS 12:55 PM [facility] REPOSITORY [facility] Imaging Services [address] [place] [address] OB Limited With Biometrics MR#: [id number] Acct: [id number] Name: NAE HOANG Rep #: [id number] : 1995 F 22 From: William Deutsch MD PCP: David Mckinney MD Status: REG ER Study: OB Limited With Biometrics Date of Exam: 05/16/18 Exam# [id number] Ordering Dr: Alex Segal MD STUDY: SECOND AND THIRD TRIMESTER OBSTETRICAL ULTRASOUND - LIMITED REASON FOR EXAM: Female, 22 years old. Patient with pain. Evaluate well-being. LMP: 02/07/2018. PRIOR ULTRASOUND: None. TECHNIQUE: Transabdominal TECHNICAL QUALITY: Adequate. FINDINGS: There is a single intrauterine fetus. Fetus is in a variable presentation. There is demonstrated cardiac activity with a heart rate of 139 bpm. There is a normal amniotic fluid volume. The largest amniotic fluid pocket measures 3.5 cm. The amniotic fluid index (EDE) is measured. The placenta is posterior with a complete previa. There are Grade 0 placental changes. The cervix measures 3.9 cm cm in length. BIOMETRY: BPD: 27 mm: 14 weeks, 6 days HC: 98 mm: 14 weeks, 4 days AC: 80 mm: 14 weeks, 3 days FL: 13 mm: 14 weeks, 0 days Age by LMP: 14 weeks, 0 days. [place] by LMP: 11/14/2018. age by current US: 14 weeks, 3 days. [place] by current US: 11/11/2018. Estimated weight: 92 grams, +/- 14 grams, 48 percentile. US/OB Limited With Biometrics IMPRESSION: 1. Single live intrauterine fetus in variable presentation with an estimated gestational age of 14 weeks and 3 days. The JANE is 11/11/2018. 2. Posterior placenta with complete previa. 3. Follow-up exams are recommended. Electronically Signed: William Deutsch MD at 14:42 EST Tel , Service support , CC: David Mckinney MD; Alex Segal MD Form Worker: Signed 12 LEAD ELECTROCARDIOGRAM Observed: 04/13/2018 Status: F Source: [place] 12:45 PM [facility] REPOSITORY [facility] Cardiovascular Services [address] [place] [address] 12 Lead EKG 04/09/18 1658 MR#: [id number] Acct: [id number] Name: NAE HOANG Rep #: [id number] : 1995 22 From: Alex Menon MD Attending Dr: Status: DEP ER Ordering Dr: Jaydon López MD Date: 04/09/18 Location: ED Sex: F C Admitted: Test Reason : SYNCOPE Blood Pressure : / mmHG Vent. Rate : 062 BPM Atrial Rate : 062 BPM P-R Int : 138 ms QRS Dur : 076 ms QT Int : 418 ms P-R-T Axes : 017 059 016 degrees QTc Int : 424 ms Sinus rhythm with marked sinus arrhythmia Otherwise normal ECG Confirmed by SINAN TURNER, ALEX ([id number]), supervising film or videotape editor VERENICE SCHERER ([id number]) on 04/13/2018 12:45:41 PM Referred By: LEAH Confirmed By:ALEX MENON MD 04/13/18 1245 Date Alex Menon MD CC: David Mckinney MD; Jaydon López MD Signed EMERGENCY DEPARTMENT Observed: 04/10/2018 Status: F Source: [place] SUMMARY 12:37 AM [facility] REPOSITORY [facility] Medical Records Department [address] [place] [address] Emergency Department Summary 04/09/18 1822 MR#: [id number] Acct: [id number] Name: NAE HOANG Rep #: [id number] : 1995 22 From: Jaydon López MD PCP: David Mckinney MD Status: DEP ER - ER Visit Summary Date of Service: 04/09/18 Chief Complaint: Syncope History of Present Illness: The patient is a [address] Dotson and Dr. David Mckinney. She reports that she is a at 9 weeks . States that she had blood work this morning approximately 1130. She had a few crackers at noon, but has not eaten otherwise today. Patient been standing at a eFolder work approximately 2-1/2 hours when she began feeling lightheaded and nauseated. States that she felt very hot. No diaphoresis. No chest pain, abdominal pain, or shortness of breath. She went into the bathroom and vomited twice. No blood or emesis. When walking back out of the bathroom she had a syncopal episode. She denies any injuries. She has never had anything like this before. Patient denies any vaginal bleeding or discharge. Physical Examination: Vitals: Stable. Afebrile. General: Well-nourished and well-developed. Head: Normocephalic atraumatic. Neck: Supple, no lymphadenopathy. No JVD. Nontender. Cardiovascular: Regular rate and rhythm. No murmurs. Respiratory: No respiratory distress. Clear to auscultation bilaterally. Abdominal: Soft, nontender, nondistended, normal bowel sounds. No guarding, rebound, or peritoneal signs. Back: Nontender. Extremities: Nontender, no edema. Skin: Normal color, no rash. Neurologic: Alert and oriented 3. Cranial nerves II through XII are intact. Normal strength and sensation. Psych: Normal affect. Test Results: EKG is sinus at 62 with normal intervals. CBC is normal. Chem-7 is remarkable for a glucose of 72. UA is negative. TSH is 0.15. Emergency Department Course and Treatment: Patient was given a liter of normal saline. She is resting comfortably. She had negative orthostatic vital signs while here. Treatment Plan: Patient was discussed with Dr. Dotson. He reports that that TSH is normal for this stage of . She will be discharged with instructions to push fluids. Eat small frequent meals. Follow-up with Dr. Mckinney in 1-2 days if not improving. Return to the emergency department for any worsening symptoms. Disposition: To home in improved and stable condition. Impression: 1. Syncope. 2. First trimester . 3. Hypoglycemia. This note was generated with Rent the Runwayation software. It may contain incorrect words, spelling, and punctuation that were not noted in review of the chart prior to signing ED Disposition - Plan for ED Patient: Disposition: Home or Assisted Living Chief Complaint: Syncope Instructions: ED Fainting Unkn Cause Referrals: David Mckinney MD [Primary Care Provider] - 1-2 Days if not improving What to do if you have Problems For any increased pain, shortness of breath, bleeding, nausea or vomiting, chest pain, or any unexpected problems, contact your Primary Care Provider. Call [facility] ([phone]) or report to the closest Emergency Room. Call 911 if necessary. 04/10/18 0037 <Electronically signed by Jaydon López MD> Date Jaydon López MD Cosigner Signature (If Indicated): Date CC: David Mckinney MD BASIC METABOLIC Collected: 04/09/2018 Status: F Source: [place] PROFILE (BMP) 5:20 PM [facility] REPOSITORY TYPE CODE TESTS RESULT OUT OF RANGE REFERENCE UNITS LAB L501.0100 74-106 mg/dL Low GLU 72 Result Comment: Please note revised GLUCOSE reference range effective 2017. LAB L501.1000 7-18 mg/dL Normal BUN 11 LAB L501.1100 0.55-1.02 mg/dL Normal CREAT,SERUM 0.59 Result Comment: The validity of the calculated GFR AND GFRAA in patients over 70 years has not been determined. Clinical correlation is essential. LAB L501.1110 >60 mL/min Normal EST GFR 136 Result Comment: Non- GFR Calc LAB L501.1115 >60 mL/min Normal EST GFR - AA 164 Result Comment: GFR Calc LAB L501.1255 ml/min Normal Estimated CRCL 135.72 LAB L501.1300 10-20 RATIO BUN/CRE Normal 18.6 LAB L501.2200 8.5-10 mg/dL .1 CA Normal 9.1 LAB L501.5300 136-14 mmol/L 5 NA Normal 138 LAB L501.5600 3.5-5. mmol/L 1 K Normal 3.9 LAB L501.5900 98-107 mmol/L CL Normal 106 LAB L501.6100 21.0-3 mmol/L 2.0 CO2 Normal 25.0 LAB L501.6200 5-15 GAP Normal 7 Performed By: #### L500.2500 #### [facility] [address] [place], [address] URINE DRUG SCREEN Collected: 04/09/2018 Status: F Source: [place] (Energy [employer]) 11:22 AM [facility] REPOSITORY Order Comment: List of Drugs Taken or Suspected? UNK TYPE CODE TESTS RESULT OUT OF RANGE REFERENCE UNITS LAB L505.0075 TO BE Normal CONFIRMED Result Comment: CONFIRMATORY TESTING FOR ALL POSITIVE URINE DRUG SCREEN RESULTS WILL ONLY BE SENT OUT UPON PHYSICIAN ORDER. VISTA Urine Drug Screen methods provide only preliminary analytical test results. A more specific alternate chemical method must be used in order to obtain a confirmed analytical result. Gas chromatography/mass spectrometery (GC/MS) is the preferred confirmatory method. Clinical consideration and professional judgement should be applied to any drug of abuse test result, particularly when preliminary positive results are used. URINE TCA TESTING MUST BE ORDERED SEPARATELY. USE TEST MNEMONIC: [facility] LAB L505.5005 VISTA UDS PH 7 Normal LAB L505.5015 <1000 ng/mL AMPHETAMINES Normal NEGATIVE LAB L505.5025 < 200 ng/mL BARBITIURATES Normal NEGATIVE LAB L505.5035 < 200 ng/mL BENZODIAZIPINE Normal NEGATIVE LAB L505.5045 < 300 ng/mL COCAINE Normal NEGATIVE LAB L505.5055 < 500 ng/mL ECSTACY Normal NEGATIVE LAB L505.5065 < 300 ng/mL METHADONE Normal NEGATIVE LAB L505.5075 < 300 ng/mL OPIATES Normal NEGATIVE LAB L505.5085 < 25 ng/mL PCP Normal NEGATIVE LAB L505.5095 < 50 ng/mL THC Normal NEGATIVE Performed By: #### L505.5000 #### [facility] [address] [place], [place], [id number] CBC W/DIFF, AUTOMATED Collected: 04/09/2018 Status: F Source: [place] 11:22 AM [facility] REPOSITORY TYPE CODE TESTS RESULT OUT OF RANGE REFERENCE UNITS LAB L100.1000 4.4-11.0 K/mm3 Normal WBC 6.1 LAB L100.1200 4.2-5.4 M/mm3 Normal RBC 4.59 LAB L100.1300 12.0-15.0 g/dl Normal HGB 12.0 LAB L100.1400 37-47 % Normal HCT 37.8 LAB L100.1500 81-99 fL Normal MCV 82.4 LAB L100.1600 27.0-32.0 pg Low MCH 26.1 LAB L100.1700 32-36 g/gl Low MCHC 31.7 LAB L100.1810 11.6-14.6 % High RDW CV 15.4 LAB L100.1820 35.1-43.9 fl High RDW SD 46.4 LAB L100.1900 150-450 K/mm3 Normal PLT 167 LAB L100.2000 6.2-12.0 fl High MPV 12.3 LAB L100.2100 47-70 % Normal NEUT% 64.7 LAB L100.2200 19-41 % Normal LY% 23.5 LAB L100.2300 0-10 % Normal MONO% 8.7 LAB L100.2400 0-5 % Normal EO% 2.6 LAB L100.2500 0-1 % Normal BASO% 0.3 LAB L100.2550 0.0-0.9 % Normal IM GRAN % 0.200 Result Comment: IG% - Immature Granulocytes (promyelocytes, myelocytes and metamyelocytes) > 1% indicates that a LEFT SHIFT is Present. LAB L100.2620 2.0-7.7 X10 3/uL Normal Absolute Neut 4.0 LAB L100.2720 0.83-4.51 X10 3/ul Normal Absolute Lymph 1.44 Performed By: #### L100.0100 #### [facility] [address] [place], [place], [address] URINALYSIS, ROUTINE Collected: 04/09/2018 Status: F Source: [place] (DIPSTICK) 11:22 AM [facility] REPOSITORY Order Comment: How was Urine Obtained? Urine, Random TYPE CODE TESTS RESULT OUT OF RANGE REFERENCE UNITS LAB L400.3000 Yellow COLOR Normal Yellow LAB L400.3050 Clear Normal CLARITY Sl. Cloudy LAB L400.3200 Normal mg/dl Normal GLUCOSE, UR Normal LAB L400.3300 Negative mg/dL Normal BILIRUBIN URINE Negative LAB L400.3400 Negative mg/dl Normal KETONE UR Negative LAB L400.3465 1.002-1.030 Normal SP.GR. DIPSTX 1.010 LAB L400.3550 5.0 - 8.0 pH UR Normal 7.0 LAB L400.3600 Negative mg/dl PROT Normal DIPSTX Negative LAB L400.3700 Normal mg/dl High 1 UROBILI LAB L400.3750 Negative Normal NITRITE UR Negative LAB L400.3780 Negative /ul Normal OCCULT BLOOD-UR Negative LAB L400.3800 Negative /ul High LEUK 25 ESTERASE Performed By: #### L400.2011 #### [facility] [address] [place], [place], [id number] THYROID STIM HORMONE Collected: 04/09/2018 Status: F Source: [place] (TSH) 11:22 AM [facility] REPOSITORY TYPE CODE TESTS RESULT OUT OF RANGE REFERENCE UNITS LAB L501.9520 0.358-3.74 uIU/mL Low TSH 0.15 Performed By: #### L501.9520 #### [facility] [address] [place], [place], [id number] RUBELLA IGG Collected: 04/09/2018 Status: F Source: [place] 11:22 AM [facility] REPOSITORY TYPE CODE TESTS RESULT OUT OF RANGE REFERENCE UNITS LAB L509.4000 IU/mL Normal Rubella IgG 76.5 Result Comment: Antibody results Interpretation of Immune Status < 5 IU/ml Presumed Non-immune 5 - < 10 IU/ml Equivocal > or = 10 IU/ml Presumed Immune Performed By: #### L509.4000, L3890.6005 #### [facility] [address] [facility] [place], [place], [id number] HIV - [facility] Collected: 04/09/2018 Status: F Source: [place] 11:22 AM [facility] REPOSITORY TYPE CODE TESTS RESULT OUT OF RANGE REFERENCE UNITS LAB L3890.6005 Nonreactive Normal HIV - [facility] Non-Reactive Performed By: #### L509.4000, L3890.6005 #### [facility] [address] [place], [place], [address] T AND S-NO Collected: 04/09/2018 Status: F Source: [place] CHARGE W/PNP 11:22 AM [facility] REPOSITORY Order Comment: Reason for Type AND Screen/Red Cells: Surgery? N TYPE CODE TESTS RESULT OUT OF RANGE REFERENCE UNITS LAB B10.0800 A Normal BLOOD POSITIVE TYPE GEL LAB B100.4050 Normal Ab SCREEN NEGATIVE GEL Performed By: #### B100.7550 #### [facility] [facility] [place], [place], [id number] RPR Collected: 04/09/2018 Status: F Source: [place] 11:22 AM [facility] REPOSITORY TYPE CODE TESTS RESULT OUT OF REFERENCE UNITS RANGE LAB L700.5100 NONREACTIVE Normal RPR NONREACTIVE Performed By: #### L700.5100 #### [facility] [address] [place] [address]. [place], [place], [address] HEPATITIS B SURFACE Collected: 04/09/2018 Status: F Source: [place] AG 11:22 AM [facility] REPOSITORY TYPE CODE TESTS RESULT OUT OF RANGE REFERENCE UNITS LAB L3100.0400 Negative Normal HB Negative SURF AG Result Comment: Performed at: [facility] [id number] Correctional Therapy Teacher: hCris Ott PhD, Phone: [phone] Performed By: #### L3100.0390, L3100.0625 #### [facility] (refer to report for specific site) refer to report for address and phone number HEPATITIS C ANTIBODIES Collected: 04/09/2018 Status: F Source: [place] 11:22 AM [facility] REPOSITORY TYPE CODE TESTS RESULT OUT OF RANGE REFERENCE UNITS LAB L3100.0650 0.0-0.9 s/co ratio Normal HEP C AB <0.1 Result Comment: Negative: < 0.8 Indeterminate: 0.8 - 0.9 Positive: > 0.9 The CDC recommends that a positive HCV antibody result be followed up with a HCV Nucleic Acid Amplification test (424918). Performed By: #### L3100.0390, L3100.0625 #### [facility] (refer to report for specific site) refer to report for address and phone number CT/NG [facility] BY PCR Collected: 03/25/2018 Status: F Source: ELGIN 11:30 AM [facility] REPOSITORY TYPE CODE TESTS RESULT OUT OF RANGE REFERENCE UNITS LAB L8200.2100 Negative Normal Chlam Negative Trac PCR LAB L8200.2200 Negative Normal NG by Negative PCR Performed By: #### L8200.1999 #### [facility] [address] [place], [address] PAP TEST I-G Collected: 03/25/2018 Status: F Source: ELGIN 11:30 AM [facility] REPOSITORY Order Comment: CYTOLOGY INFORMATION: - CLINICAL INFORMATION: - DATE LMP/MENOPAUSE: 02/07/18 LMP - COLLECTION VIAL: Thin Prep Vial - MANAGER OF SUPPLY CHAIN SOURCE: CERVICAL/ENDOCERVICAL - COLLECTION TECHNIQUE: BRUSH/SPATULA Specimen Comment: [id number] Specimen Comment: Source.............Cervix;Endocervix Specimen Comment: LMP / Prev Treat...VLE=[id number] Specimen Comment: No. of containers..01 ThinPrep Vial TYPE CODE TESTS RESULT OUT OF RANGE REFERENCE UNITS LAB L7400.0800 . Normal DIAGN Comment Result Comment: NEGATIVE FOR INTRAEPITHELIAL LESION AND MALIGNANCY. PREDOMINANCE OF COCCOBACILLI CONSISTENT WITH SHIFT IN VAGINAL KAYLENE IS PRESENT. THIS SPECIMEN WAS RESCREENED PART OF OUR SCHEDULE SUPERVISOR PROGRAM. LAB L7400.0900 . Normal ADEQ Comment Result Comment: Satisfactory for evaluation. Endocervical and/or squamous metaplastic cells (endocervical component) are present. LAB L7400.1400 . Normal PERFORM Comment Result Comment: Paris George, Eligibility Technician ([facility]) LAB L7400.1500 . Normal QC Comment REV Result Comment: Justine Martin, Supervisory Eligibility Technician ([facility]) LAB L7400.1465 . Normal TEST METHOD Comment Result Comment: This liquid based ThinPrep(R) pap test was screened with the use of an image guided system. Performed at: [facility] [id number] Correctional Therapy Teacher: Autumn Cancino MD, Phone: [phone] LAB L7400.7669 . Normal . COMM LAB L7400.2700 . Normal PAPSMR Comment Result Comment: The Pap smear is a screening test designed to aid in the detection of premalignant and malignant conditions of the uterine cervix. It is not a diagnostic procedure and should not be used as the sole means of detecting cervical cancer. Both false-positive and false-negative reports do occur. Performed By: #### L7400.0399 #### [facility] (refer to report for specific site) refer to report for address and phone number EMERGENCY DEPARTMENT Observed: 03/13/2018 Status: F Source: ELGIN SUMMARY 4:53 PM [facility] REPOSITORY [facility] Medical Records Department [address] [place] [address] Emergency Department Summary 03/13/18 1537 MR#: [id number] Acct: [id number] Name: NAE HOANG Rep #: [id number] : 1995 22 From: Cesar Bertrand MD PCP: David Mckinney MD Status: DEP ER - ER Visit Summary Date of Service: 03/13/18 Chief Complaint: Sore throat History of Present Illness: The patient is a 22 F no significant past medical or surgical history. I have a 2-day history of sore throat. Patient also thinks she is early . Her menstrual periods several days late. She denies abdominal pain. She denies any pelvic pain or vaginal bleeding. She denies any fever. She has had some chills. Physical Examination: Vital signs are stable. Afebrile. Pulse ox 90% on room air no signs of hypoxia. Patient no distress. Does not look septic or toxic. H EENT exam minimal erythema posterior pharynx. Tonsils are not enlarged. They are not touching. Airway is patent. No exudate. No peritonsillar abscess. No drooling. No stridor. TMs are normal. Neck nontender. One mildly tender lymph node on the left. Trachea midline. Lungs clear to auscultation bilaterally. Heart regular rhythm no murmur. Abdomen soft and nontender. Normal bowel sounds. No peritoneal signs. Moving all 4 extremities. Neurovascular intact. Skin unremarkable. No rashes. Back nontender. Neurologically she is awake alert without focal motor deficits. Test Results: Discussed with patient and she deferred a rapid strep. She is already taken a test at home that was positive also. Emergency Department Course and Treatment: Clinically this appears to be a viral pharyngitis. She has no exudate. No significant lymphadenopathy. Treatment Plan: Plenty of fluids and rest. Warm salt water gargling. Chloraseptic spray. Tylenol. Disposition: Discharge Impression: Acute viral pharyngitis Reportedly first trimester This note was generated with [employer] dictation software. It may contain incorrect words, spelling, and punctuation that were not noted in review of the chart prior to signing ED Disposition - Plan for ED Patient: Chief Complaint: Sore Throat Referrals: David Mckinney MD [Primary Care Provider] - What to do if you have Problems For any increased pain, shortness of breath, bleeding, nausea or vomiting, chest pain, or any unexpected problems, contact your Primary Care Provider. Call [facility] ([phone]) or report to the closest Emergency Room. Call 911 if necessary. 03/13/18 6383 <Electronically signed by Cesar Bertrand MD> Date Cesar Bertrand MD Cosigner Signature (If Indicated): Date CC: David Mckinney MD DISCHARGE INSTRUCTION Observed: 03/13/2018 Status: F Source: ELGIN 4[facility] PM [facility] Medical Records Department [address] [place] [address] Discharge Instruction 03/13/18 1541 MR#: [id number] Acct: [id number] Name: NAE HOANG Rep #: [id number] : 1995 22 From: Cesar Bertrand MD PCP: David Mckinney MD Status: [facility] ER ED Disposition - Plan for ED Patient: Disposition: Home or Assisted Living Chief Complaint: Sore Throat Instructions: ED Pharyngitis Viral Prescriptions: Amoxicillin 500 mg PO Q8 #30 tab Referrals: David Mckinney MD [Primary Care Provider] - 1 Week if not improving Additional Instructions: Plenty of fluids and rest. Warm salt water gargling. Chloraseptic spray. Tylenol for pain. If sore throat is getting worse instead of better you may take in 3 days but more than likely this is a virus and antibiotics will do you know good. What to do if you have Problems For any increased pain, shortness of breath, bleeding, nausea or vomiting, chest pain, or any unexpected problems, contact your Primary Care Provider. Call [facility] ([phone]) or report to the closest Emergency Room. Call 911 if necessary. 03/13/18 9467 <Electronically signed by Cesar Bertrand MD> Date Cesar Bertrand MD Cosigner Signature (If Indicated): Date CC: David Mckinney MD DISCHARGE INSTRUCTION Observed: 01/12/2018 Status: F Source: BARI 5:49 PM [facility] REPOSITORY [facility] Medical Records Department [address] [place] [address] Discharge Instruction 01/12/18 1748 MR#: [id number] Acct: [id number] Name: NAE HOANG Jemma Rep #: [id number] : 1995 22 From: Frank Boogie DO PCP: Hank TURNERDavid Status: PRE ER ED Disposition - Plan for ED Patient: Chief Complaint: Cold Sx Instructions: ED Upper Resp Infec No Abx Tx Prescriptions: Benzonatate [Tessalon Perle] 200 mg PO TID PRN PRN #20 cap PRN Reason: Cough Referrals: David Mckinney MD [Primary Care Provider] - 5-7 Days What to do if you have Problems For any increased pain, shortness of breath, bleeding, nausea or vomiting, chest pain, or any unexpected problems, contact your Primary Care Provider. Call [facility] ([phone]) or report to the closest Emergency Room. Call 911 if necessary. 01/12/181748 <Electronically signed by Frank Boogie DO> Date Frank Boogie DO Cosigner Signature (If Indicated): Date CC: David Mckinney MD EMERGENCY DEPARTMENT Observed: 01/12/2018 Status: F Source: ELGIN SUMMARY 5:48 PM [facility] REPOSITORY [facility] Medical Records Department [address] [facility] [place] [address] Emergency Department Summary 01/12/18 1746 MR#: [id number] Acct: [id number] Name: NAE HOANG Jemma Rep #: [id number] : 1995 22 From: Frank Boogie DO PCP: Hank TURNER,David Status: PRE ER - ER Visit Summary Date of Service: 01/12/18 Chief Complaint: [Cough] History of Present Illness: The patient is a 22 F [presents the emergency department with complaint of a cough that started about 4 days ago. Patient states that she was in [place] with family members and everybody got sick once they came back home. Patient's complaining of a sore throat and pain in both ears. Patient had low-grade fever up to 100 home. Patient is coughing up some clear phlegm at times. He denies any shortness of breath.] Physical Examination: [HEENT-PERRLA, EOMI. Cranial nerves II through XII grossly intact. TMs clear. Mucous membranes moist. No adenopathy. No pharyngeal erythema or exudates. Uvula in midline. No trismus. Cardiovascular-regular rate and rhythm without murmur or ectopy Lungs-clear to auscultation, chest wall stable without crepitus or subcu emphysema Abdomen-normoactive bowel sounds, soft, nontender, no rebound or rigidity, no peritoneal signs. Extremities-intact 4, normal range of motion, normal pulses, atraumatic] Test Results: [None indicated] Emergency Department Course and Treatment: [I discussed with patient that I felt patient likely had a viral upper respiratory infection and recommended symptomatic treatment with antitussive. Patient advised to use ibuprofen and Tylenol for discomfort] Treatment Plan: [Patient follow-up primary care physician in 5-7 days. Patient will be given a prescription for Tessalon Perles] Disposition: [Discharged home in stable condition] Impression: [Viral upper respiratory infection] This note was generated with [employer] dictation software. It may contain incorrect words, spelling, and punctuation that were not noted in review of the chart prior to signing ED Disposition - Plan for ED Patient: Chief Complaint: Cold Sx Referrals: David Mckinney MD [Primary Care Provider] - What to do if you have Problems For any increased pain, shortness of breath, bleeding, nausea or vomiting, chest pain, or any unexpected problems, contact your Primary Care Provider. Call [facility] ([phone]) or report to the closest Emergency Room. Call 911 if necessary. 01/12/18 1748 <Electronically signed by Frank Boogie DO> Date Frank Boogie DO Cosigner Signature (If Indicated): Date CC: David Mckinney MD EMERGENCY DEPARTMENT Observed: 12/29/2017 Status: F Source: BARI SUMMARY 2:21 AM [facility] REPOSITORY [facility] Medical Records Department [address] [place] [address] Emergency Department Summary 12/29/17 0217 MR#: [id number] Acct: [id number] Name: NAE HOANG Rep #: [id number] : 1995 22 From: Sarah Balderrama MD PCP: David Mckinney MD Status: DEP ER - ER Visit Summary Date of Service: 12/29/17 Chief Complaint: Right middle finger infection History of Present Illness: The patient is a 22 F presenting with right middle finger infection. She states this started last Friday. She was seen by her primary care physician on Friday and was put on Keflex. Her symptoms have not improved. She complains of persistent pain in the right middle finger. Denies fever. Denies other complaints. Physical Examination: Vitals are stable. Patient is afebrile. Alert no acute distress. HEENT exam is unremarkable. Neck is supple. Lungs are clear and equal bilaterally. Heart is regular rate and rhythm. Extremities right middle finger paronychia with no evidence of felon. Skin is warm and dry. No focal neurologic deficit. Remainder of exam is unremarkable. Emergency Department Course and Treatment: Digital block was performed. I AND D was performed. Incised with 11 blade, small amount of pus was drained. Irrigated with saline. Patient tolerated this well. Advised to continue her antibiotics until complete. Advised to watch for worsening signs of infection. Advised to follow up with primary care physician. Advised return to ED if worsening complaints. Disposition: Discharge home Impression: Right middle finger paronychia, I AND D This note was generated with [employer] dictation software. It may contain incorrect words, spelling, and punctuation that were not noted in review of the chart prior to signing ED Disposition - Plan for ED Patient: Disposition: Home or Assisted Living Chief Complaint: Wound Check Instructions: ED Fingernail Infec Referrals: David Mckinney MD [Primary Care Provider] - What to do if you have Problems For any increased pain, shortness of breath, bleeding, nausea or vomiting, chest pain, or any unexpected problems, contact your Primary Care Provider. Call [facility] ([phone]) or report to the closest Emergency Room. Call 911 if necessary. 12/29/17220 <Electronically signed by Sarah Balderrama MD> Date Sarah Balderrama MD Cosigner Signature (If Indicated): Date CC: David Mckinney MD DISCHARGE INSTRUCTION Observed: 12/29/2017 Status: F Source: BARI 1:39 AM [facility] REPOSITORY [facility] Medical Records Department [address] [place] [address] Discharge Instruction 12/29/17137 MR#: [id number] Acct: [id number] Name: NAE HOANG Rep #: [id number] : 1995 22 From: Sarah Balderrama MD PCP: David Mckinney MD Status: REG ER ED Disposition - Plan for ED Patient: Chief Complaint: Wound Check Instructions: ED Fingernail Infec Referrals: David Mckinney MD [Primary Care Provider] - What to do if you have Problems For any increased pain, shortness of breath, bleeding, nausea or vomiting, chest pain, or any unexpected problems, contact your Primary Care Provider. Call [facility] ([phone]) or report to the closest Emergency Room. Call 911 if necessary. 12/29/17138 <Electronically signed by Sarah Balderrama MD> Date Sarah Balderrama MD Cosigner Signature (If Indicated): Date CC: David Mckinney MD EMERGENCY DEPARTMENT Observed: 11/08/2017 Status: F Source: BARI SUMMARY 5:58 AM [facility] REPOSITORY [facility] Medical Records Department [address] [place] [address] Emergency Department Summary 11/08/17 0552 MR#: [id number] Acct: [id number] Name: NAE HOANG Rep #: [id number] : 1995 21 From: Raul Yadav MD PCP: David Mckinney MD Status: PRE ER - ER Visit Summary Date of Service: 11/08/17 Chief Complaint: [] Nausea and vomiting and diarrhea after eating [employer] History of Present Illness: The patient is a 21 F developed nausea vomiting 5 hours ago after eating pasta [employer]. 5 episodes of loose watery diarrhea. No home treatment. She has some stomach cramps diffusely. Physical Examination: Vital signs reviewed General: Well-nourished well-developed Head: Normocephalic atraumatic Eyes: Pupils equal round and reactive to light extraocular movements intact ENT: TMs clear no hemotympanum no trauma Neck: Nontender full range of motion Cardiovascular: Regular rate rhythm no murmurs normal S1-S2 Respiratory: No distress clear to auscultation bilaterally chest nontender Abdomen: Soft nontender nondistended normal bowel sounds no masses Back: Nontender no CVA tenderness Extremities: Nontender active range of motion 4 extremities no trauma Skin: Normal color no trauma Neuro alert oriented cranial nerves II through XII intact normal strength sensation reflexes Test Results: [] Emergency Department Course and Treatment: This time patient has no evidence of dehydration. Resting comfortably. Given oral Zofran and Imodium. Offer IV fluids but patient declined. I do not feel she needs labs. Should last less than a day. I think she has food poisoning. Given a prescription for Zofran for home and will continue Imodium and Pepto-Bismol. Treatment Plan: [] Disposition: [] Impression: [] Nausea vomiting diarrhea suspected food poisoning This note was generated with [employer] dictation software. It may contain incorrect words, spelling, and punctuation that were not noted in review of the chart prior to signing ED Disposition - Plan for ED Patient: Chief Complaint: Nausea/Vomiting/Diarrhea Referrals: David Mckinney MD [Primary Care Provider] - What to do if you have Problems For any increased pain, shortness of breath, bleeding, nausea or vomiting, chest pain, or any unexpected problems, contact your Primary Care Provider. Call [facility] ([phone]) or report to the closest Emergency Room. Call 911 if necessary. 11/08/1758 <Electronically signed by Raul Yadav MD> Date Raul Yadav MD Cosigner Signature (If Indicated): Date CC: David Mckinney MD DISCHARGE INSTRUCTION Observed: 11/08/2017 Status: F Source: ELGIN 5:58 AM [facility] REPOSITORY [facility] Medical Records Department [address] [place] [address] Discharge Instruction 11/08/17 0553 MR#: [id number] Acct: [id number] Name: NAE HOANG Jemma Rep #: [id number] : 1995 21 From: Raul Yadav MD PCP: David Mckinney MD Status: PRE ER ED Disposition - Plan for ED Patient: Disposition: Home or Assisted Living Chief Complaint: Nausea/Vomiting/Diarrhea Instructions: ED Gastroenteritis Vs Food Poison Prescriptions: Ondansetron [Zofran Odt] 8 mg PO Q8H PRN PRN #10 tab PRN Reason: Nausea Referrals: David Mckinney MD [Primary Care Provider] - What to do if you have Problems For any increased pain, shortness of breath, bleeding, nausea or vomiting, chest pain, or any unexpected problems, contact your Primary Care Provider. Call [facility] ([phone]) or report to the closest Emergency Room. Call 911 if necessary. 11/08/1758 <Electronically signed by Raul Yadav MD> Date Raul Yadav MD Cosigner Signature (If Indicated): Date CC: David Mckinney MD ALLERGIES ALLERGIES DATE TYPE / CODE NAME / CODE REACTION SEVERITY SOURCE 05/16/2018 Drug No Known Unknown [facility] Allergy/4160 Allergies/F00 Hospital 00285(SNOMED 7080661(RXNOR Repository CT) M) ENCOUNTERS ENCOUNTERS ADMIT/DISCHARGE ACCOUNT ADMITTING ENCOUNTER LOCATION SOURCE NUMBER CLASS 05/20/2018 [id number] Ambulatory [place] 7 [facility] ing:LABSPEC Repository 05/16/2018/ [id number] Emergency [place] [facility] 7 [facility] ing:ED Repository 04/09/2018/ [id number] Emergency [place] [facility] 4 [facility] ing:ED Repository 04/09/2018 [id number] Ambulatory [place] 4 [facility] ing:WOBLAB Repository 03/25/2018 [id number] Amb[place] 2 [facility] ing:LABSPEC Repository 03/13/2018/ [id number] Emergency [place] 8 9 [facility] ing:ED Repository 01/12/2018/ [id number] Emergency [place] 8 9 [facility] ing:ED Repository 12/28/2017/ [id number] Emergency [place] [facility] 2 [facility] ing:ED Repository 12/08/2017 [id number] Ambulatory [place] 9 [facility] ing:OPUS Repository 11/08/2017/ [id number] Emergency [place] [facility] 2 [facility] ing:ED Repository PAYERS PAYERS ENCOUNTER GUARANTOR PAYER SUBSCRIBER SOURCE 05/20/2018 NAE [place] Primary [id number] [id number] SPINK [facility] Number: [id number] [facility] [address]Nil: [phone] [id number] Repository [phone] () Date:2018-05-20[address]ATTN: [place] [address]YD: 05/20/2018 Secondary NOT GIVENUNK [place] Insurance:SELF PAY [facility] Number: Effective Repository Date:2018-05-20 05/16/2018 NAE D Primary NAE D [place] [id number] SPINK Insurance:CARESOURCEP CHURCHDOB: [facility] Number: [id number] Hospital [address]Utu: 330 [id number] Repository [phone] () Date:2018-05-16[address]ATTN: [place] [address]JD: 05/16/2018 Secondary NOT GIVENUNK [place] Insurance:SELF PAY [facility] Number: Effective Repository Date:2018-05-16 04/09/2018 NAE D Primary NAE D [place] [id number] SPINK Insurance:[employer]P CHURCHDOB: [facility] Number: [id number] Hospital [address]Fia: ([phone] [id number] Repository [phone] () Date:2018-04-09[address]ATTN: [place] [address]CI: 04/09/2018 Secondary NOT GIVENUNK [place] Insurance:SELF PAY [facility] Number: Effective Repository Date:2018-04-09 04/09/2018 NAE D Primary NAE D [place] [id number] SPINK Insurance:CAR[employer]OURCEP CHURCHDOB: [facility] Number: [id number] Hospital [address]Dlf: ([phone] [id number] Repository [phone] () Date:2018-04-09[address]ATTN: [place] [address]JL: 04/09/2018 Secondary NOT GIVENUNK [place] Insurance:SELF PAY [facility] Number: Effective Repository Date:2018-04-09 03/25/2018 NAE D Primary NAE D [place] [id number] SPINK Insurance:[employer] CHURCHDOB: [facility] Number: [id number] Hospital [address]Ztr: [phone] [id number] Repository [phone] () Date:2018-03-25[address]ATTN: [place] [address]RV: 03/25/2018 Secondary NOT GIVENUNK [place] Insurance:SELF PAY [facility] Number: Effective Repository Date:2018-03-25 03/13/2018 NAE D Primary NAE D [place] [id number] SPINK Insurance:[employer] CHURCHDOB: [facility] Number: [id number] Hospital [address]Maw: 330 [id number] Repository [phone] () Date:2018-03-13[address]ATTN: [place] [address]EQ: 03/13/2018 Secondary NOT GIVENUNK [place] Insurance:SELF PAY [facility] Number: Effective Repository Date:2018-03-13 01/12/2018 NAE D Primary NAE D [place] [id number] SPINK Insurance:[employer] CHURCHDOB: [facility] Number: [id number] Hospital [address]Bwk: 330 [id number] Repository [phone] () Date:2018-01-12[address]ATTN: [place] [address]JQ: 01/12/2018 Secondary NOT GIVENUNK [place] Insurance:SELF PAY [facility] Number: Effective Repository Date:2018-01-12 12/28/2017 NAE D Primary NAE D [place] [id number] SPINK Insurance:[employer]P CHURCHDOB: [facility] Number: [id number] Hospital [address]Fif: [phone] [id number] Repository [phone] () Date:2017-12-28[address]ATTN: [place] [address]TG: 12/28/2017 Secondary NOT GIVENUNK [place] Insurance:SELF PAY [facility] Number: Effective Repository Date:2017-12-28 12/08/2017 Nae D Primary Nae D [place] [id number] [place] Insurance:CARESOURCEP ChurchDOB: [facility] Number: [id number] Hospital [address]Nvg: [phone] [id number] Repository [phone] () Date:2017-12-03[address]ATTN: [place] [address]ZH: 12/08/2017 Secondary NOT GIVENUNK [place] Insurance:SELF PAY [facility] Number: Effective Repository Date:2017-12-03 11/08/2017 Nae D Primary Nae D [place] [id number] [place] Insurance:CARESOURCEP ChurchDOB: [facility] Number: [id number] Hospital [address]Qma: [phone]) [id number] Repository [phone] () Date:2017-11-08[address]ATTN: [place] [address]BF: 11/08/2017 Secondary NOT GIVENUNK [place] Insurance:SELF PAY [facility] Number: Effective Repository Date:2017-11-08
== END ==
PROVIDERS: Visit Provider Obstetrics & Gynecology
DX: O23.41 Unspecified infection of urinary tract in pregnancy, first trimester (principal); Z3A.00 Weeks of gestation of pregnancy not specified
CPT/HCPCS: 87077; 87086; 87088; 87186

== ENCOUNTER → 2018-08-19 14:34 | Outpatient (CLI) | payer MEDICAID, SELFPAY ==
[2018-08-19 17:37] LABS: Hematocrit 33.1 % (37-47); Hemoglobin 10.2 g/dl (12.0-15.0); Mean Corp Hgb Conc 30.8 g/gl (32-36); Mean Corpuscular Hgb 26.5 pg (27.0-32.0); Mean Platelet Vol. 12.3 fl (6.2-12.0); Platelet Count 199 K/mm3 (150-450); RBC Distribution Width CV 14.1 % (11.6-14.6); Red Blood Count 3.85 M/mm3 (4.2-5.4); White Blood Count 10.9 K/mm3 (4.4-11.0)
[2018-08-19 17:41] LABS: Scan Indicated on CBC? Y/N NO
[2018-08-19 18:21] LABS: Glucose Challenge Gest 1H 50g 103 mg/dL (70-140)
== END ==
PROVIDERS: Visit Provider Obstetrics & Gynecology
DX: Z34.83 Encounter for supervision of other normal pregnancy, third trimester (principal)
CPT/HCPCS: 82950; 85027

== ENCOUNTER 2018-10-07 14:35 | Outpatient (CLI) | payer MEDICAID, SELFPAY ==
[2018-10-07 14:56] VITALS: BMI 30.2
[2018-10-07 15:27] LABS: Color, Urine Yellow (Yellow); Glucose, Dipstick Normal (Normal); Ketone-Dipstick 5 mg/dl (Negative); Leukocyte Esterase-Dipstick 500 /ul (Negative); Nitrite-Dipstick Negative (Negative); Occult Blood-Urine Negative /ul (Negative); Protein-Dipstick Negative (Negative); Urine Bilirubin Dipstick Negative (Negative); Urine Clarity Cloudy (Clear); Urine Urobilinogen 1 mg/dl (Normal)
--- NOTE | 2018-10-07 17:14 | OB.TRI.NOTE ---
History of Present Illness Date of Service: 10/07/18 Was patient seen by the physician?: No Reason For Visit: R/O LABOR Date of Service: 10/07/18 Final JANE: 11/14/18 Final JANE Source: US <20 weeks Gestational age: 34 Weeks and 4 Days History of Present Illness: Admitted with mild contraction like pains. No signs of PPROM. Good movement. Allergies No Known Allergies Allergy (Verified 05/16/18 14:06) Laboratory Studies: Laboratory Tests 10/07/18 Range/Units 15:00 Urine Color Yellow (Yellow) Urine Clarity Cloudy (Clear) Urine pH 7.0 (5.0 - 8.0) Ur Specific [place] 1.010 (1.002-1.030) Urine Protein Negative (Negative) mg/dl Urine Glucose (UA) Normal (Normal) mg/dl Urine Ketones 5 H (Negative) mg/dl Urine Occult Blood Negative (Negative) /ul Urine Nitrite Negative (Negative) Urine Bilirubin Negative (Negative) mg/dL Urine Urobilinogen 1 H (Normal) mg/dl Ur Leukocyte Esterase 500 H (Negative) /ul Physical Exam General: Alert, Oriented x3, Cooperative, No apparent distress Cardiovascular: Regular rate, Regular Rhythm Lungs: Clear to auscultation, Normal air movement Abdomen: Soft, Non Tender, Non-Distended, Appropriate for Gestational Age Extremities:: No edema Neurological: Neuro grossly intact BANK COURIER: Normal external genitalia Estimated gestational size: Appropriate for gestational size Presentation: Cephalic Cervix Dilation (cm): 0 Station: -3 Effacement (%): 0 NST - FHR Rate Baby A Baseline: 120 Variability:: Moderate Accelerations:: 15 x 15 Decelerations:: None NST Reactive:: Yes, Appropriate for gestational age FHR Category:: Category I Uterine Activity:: irregular
--- NOTE | 2018-10-07 17:18 | OB.TRI.HP_ITS ---
History of Present Illness Date of Service: 10/07/18 Was patient seen by the physician?: No Reason For Visit: R/O LABOR Date of Service: 10/07/18 Final JANE: 11/14/18 Final JANE Source: US <20 weeks Gestational age: 34 Weeks and 4 Days History of Present Illness: Admitted with mild contraction like pains. No signs of PPROM. Good movement. Allergies No Known Allergies Allergy (Verified 05/16/18 14:06) Laboratory Studies: Laboratory Tests 10/07/18 Range/Units 15:00 Urine Color Yellow (Yellow) Urine Clarity Cloudy (Clear) Urine pH 7.0 (5.0 - 8.0) Ur Specific [place] 1.010 (1.002-1.030) Urine Protein Negative (Negative) mg/dl Urine Glucose (UA) Normal (Normal) mg/dl Urine Ketones 5 H (Negative) mg/dl Urine Occult Blood Negative (Negative) /ul Urine Nitrite Negative (Negative) Urine Bilirubin Negative (Negative) mg/dL Urine Urobilinogen 1 H (Normal) mg/dl Ur Leukocyte Esterase 500 H (Negative) /ul Physical Exam General: Alert, Oriented x3, Cooperative, No apparent distress Cardiovascular: Regular rate, Regular Rhythm Lungs: Clear to auscultation, Normal air movement Abdomen: Soft, Non Tender, Non-Distended, Appropriate for Gestational Age Extremities:: No edema Neurological: Neuro grossly intact TEXTILE BROKER: Normal external genitalia Estimated gestational size: Appropriate for gestational size Presentation: Cephalic Cervix Dilation (cm): 0 Station: -3 Effacement (%): 0 NST - FHR Rate Baby A Baseline: 120 Variability:: Moderate Accelerations:: 15 x 15 Decelerations:: None NST Reactive:: Yes, Appropriate for gestational age FHR Category:: Category I Uterine Activity:: irregular
== END 2018-10-07 17:05 | disposition home or self-care (01) ==
LOC: WPOUT 14:49 → WP 14:50
PROVIDERS: Referring Provider Obstetrics & Gynecology; Visit Provider Obstetrics & Gynecology
DX: O26.893 Other specified pregnancy related conditions, third trimester (principal); N85.8 Other specified noninflammatory disorders of uterus; Z3A.34 34 weeks gestation of pregnancy
CPT/HCPCS: 59025; 59050; 81002; 99218; G0378

== ENCOUNTER → 2018-10-12 17:36 | Outpatient (CLI) | payer MEDICAID, SELFPAY ==
[2018-10-07 14:56] VITALS: BMI 30.2
== END ==
PROVIDERS: Referring Provider Obstetrics & Gynecology; Visit Provider Obstetrics & Gynecology
DX: Z36.85 Encounter for antenatal screening for Streptococcus B (principal)
CPT/HCPCS: 87081

== ENCOUNTER 2018-10-28 14:25 | Outpatient (CLI) | payer MEDICAID, SELFPAY ==
[2018-10-28 14:49] VITALS: BMI 31.8
[2018-10-28 15:24] LABS: ROM Internal Control Test YES-OK TO RESULT pt. (Internal QC); ROM Patient Test Negative (Negative)
--- NOTE | 2018-10-29 01:01 | OB.TRI.NOTE ---
History of Present Illness Date of Service: 10/28/18 Was patient seen by the physician?: No Reason For Visit: R/O LABOR Date of Service: 10/28/18 Final JANE: 11/14/18 Final JANE Source: US <20 weeks Gestational age: 37 Weeks and 5 Days History of Present Illness: c/o contractions Allergies No Known Allergies Allergy (Verified 05/16/18 14:06) Laboratory Studies: Laboratory Tests 10/28/18 Range/Units 14:55 Vag Amniotic Fld Detect Negative (Negative) Physical Exam General: Alert, Oriented x3, Cooperative, No apparent distress Cardiovascular: Regular rate, Regular Rhythm Lungs: Clear to auscultation, Normal air movement Abdomen: Soft, Non Tender, Non-Distended, Gravid, Appropriate for Gestational Age Extremities:: No edema Neurological: Neuro grossly intact SENIOR STRATEGY ANALYST: Normal external genitalia Estimated gestational size: Appropriate for gestational size Presentation: Cephalic Cervix Dilation (cm): 1 Station: -3 Effacement (%): 0 NST - FHR Rate Baby A Baseline: 130s Variability:: Moderate Accelerations:: 15 x 15 Decelerations:: None NST Reactive:: Yes, Appropriate for gestational age FHR Category:: Category I Uterine Activity:: rare Impression/Plan No signs of active labor. No signs of SROM. Reassuring FHR tracing.
--- NOTE | 2018-10-29 01:04 | OB.TRI.HP_ITS ---
History of Present Illness Date of Service: 10/28/18 Was patient seen by the physician?: No Reason For Visit: R/O LABOR Date of Service: 10/28/18 Final JANE: 11/14/18 Final JANE Source: US <20 weeks Gestational age: 37 Weeks and 5 Days History of Present Illness: c/o contractions Allergies No Known Allergies Allergy (Verified 05/16/18 14:06) Laboratory Studies: Laboratory Tests 10/28/18 Range/Units 14:55 Vag Amniotic Fld Detect Negative (Negative) Physical Exam General: Alert, Oriented x3, Cooperative, No apparent distress Cardiovascular: Regular rate, Regular Rhythm Lungs: Clear to auscultation, Normal air movement Abdomen: Soft, Non Tender, Non-Distended, Gravid, Appropriate for Gestational Age Extremities:: No edema Neurological: Neuro grossly intact HUMAN RESOURCES RECRUITER: Normal external genitalia Estimated gestational size: Appropriate for gestational size Presentation: Cephalic Cervix Dilation (cm): 1 Station: -3 Effacement (%): 0 NST - FHR Rate Baby A Baseline: 130s Variability:: Moderate Accelerations:: 15 x 15 Decelerations:: None NST Reactive:: Yes, Appropriate for gestational age FHR Category:: Category I Uterine Activity:: rare Impression/Plan No signs of active labor. No signs of SROM. Reassuring FHR tracing.
== END 2018-10-28 16:55 | disposition home or self-care (01) ==
PROVIDERS: Referring Provider Obstetrics & Gynecology; Visit Provider Obstetrics & Gynecology
DX: O26.893 Other specified pregnancy related conditions, third trimester (principal); N85.8 Other specified noninflammatory disorders of uterus; Z3A.37 37 weeks gestation of pregnancy
CPT/HCPCS: 59025; 59050; 84112; 99218; G0378

== ENCOUNTER 2018-11-13 00:25 | Inpatient (IN) | payer MEDICAID, SELFPAY ==
[2018-11-12 23:38] VITALS: BMI 32.4
[2018-11-13] MEDS: Lactated Ringers 1,000 ML 50 ML IV ×3 (01:12→08:22)
[2018-11-13 01:27] LABS: Absolute Lymphocyte Count 2.48 X10^3/ul (0.83-4.51); Absolute Neutrophil Count 7.9 X10^3/uL (2.0-7.7); Basophil# 0.01 X10^3/uL; Basophil% 0.1 % (0-1); Eosinophils% 1.7 % (0-5); Hematocrit 32.8 % (37-47); Hemoglobin 10.5 g/dl (12.0-15.0); Lymphocyte # 2.48 X10^3/ul (4.0); Lymphocyte % 21.5 % (19-41); Mean Corpuscular Hgb 24.2 pg (27.0-32.0); Mean Corpuscular Volume 75.8 fL (81-99); Mean Platelet Vol. 12.5 fl (6.2-12.0); Monocyte% 7.8 % (0-10); Neutrophil # 7.87 X10^3/uL (2.7-7.7); Neutrophil % 68.4 % (47-70); POSITIVE COUNT NO; POSITIVE DIFFERENTIAL NO; POSITIVE MORPHOLOGY NO; Platelet Count 176 K/mm3 (150-450); RBC Distribution Width CV 15.5 % (11.6-14.6); RBC Distribution Width SD 41.4 fl (35.1-43.9); Red Blood Count 4.33 M/mm3 (4.2-5.4); White Blood Count 11.5 K/mm3 (4.4-11.0)
--- NOTE | 2018-11-13 02:24 | PCM.PN.BLA ---
Progress Note LABOR PROGRESS NOTE EFM 110-120s avg variability. accels to 150s UCs q 1 1/2 - 3 1/2 mins CX: 3/50/-2 on admission A/P: 39 wk EGA early labor. Admitted. GBS neg. Continue labor.
[2018-11-13] MEDS: fentaNYL-bupivacaine (epidural) 100 ML BAG EPIDURAL ×2 (03:55→08:09)
--- NOTE | 2018-11-13 07:50 | PCM.PN.BLA ---
Progress Note LABOR PROGRESS NOTE, late entry Comfortable w/ epidural AVSS no pitocin CX: 4 cm IBOW Very anterior. High. Vtx well applied against the cervix. AROM and scalp lead placed as difficult to monitor FHR EFM 110-120s , avg variability. Accels UCs 3-6 + min to now one UC in 12 mins A/P: Labor at 39 5/7 wk EGA. Early labor. ? adequacy of UCs vs poor steel pickler. order written for Pitocin prn. Watch progress. position changes for rotation and descent.
--- NOTE | 2018-11-13 07:59 | PN_ITS ---
Progress Note LABOR PROGRESS NOTE, late entry Comfortable w/ epidural AVSS no pitocin CX: 4 cm IBOW Very anterior. High. Vtx well applied against the cervix. AROM and scalp lead placed as difficult to monitor FHR EFM 110-120s , avg variability. Accels UCs 3-6 + min to now one UC in 12 mins A/P: Labor at 39 5/7 wk EGA. Early labor. ? adequacy of UCs vs poor pickle pumper. order written for Pitocin prn. Watch progress. position changes for rotation and descent.
[2018-11-13] MEDS: Oxytocin 30 units/NS 500 ml 30 UNITS/500 ML IV.SOLN IV (08:41)
[2018-11-13] MEDS: Oxytocin 30 units/NS 500 ml 30 UNITS/500 ML IV.SOLN 334 UNITS IV (12:10)
--- NOTE | 2018-11-13 12:16 | PCM.DCVAG ---
Discharge Diet: No Restrictions Discharge Activity: May Shower, May Take a Tub Bath May resume sexual activity in: 4-6 weeks Additional Activity Instructions:: Nothing in the vagina for 4-6 weeks. You may return to work/school in 6 weeks. Additional Instructions: If you experience any of the following, contact your healthcare provider. Bleeding that soaks a pad every hour for 2 hours Fever 100.4 or higher Unrelieved abdominal pain Problems urinating (including inability to urinate or burning while urinating). Visual changes Severe headache Flu-like symptoms Pain or redness in one of both of your breasts Pain, warmth, tenderness or swelling in your legs, especially the calf area Frequent nausea and vomiting Symptoms of depression or anxiety If you experience any of the following, call 911 or go to the nearest Emergency Room. Chest pain Problems breathing Seizure activity Partial or complete paralysis of a body part, slurred speech, weakness or drooping of the face, or a sudden inability to walk or hold your balance Allergies/Adverse Reactions: Allergies No Known Allergies Allergy (Verified 05/16/18 14:06) Medications to take at Discharge Ferrous Sulfate [Iron] 325 mg PO DAILY 10/07/18 Vits [Prenatabs FA] 1 tablet PO DAILY 10/07/18 Please Follow Up With: Gonzalo Dotson MD - [phone] When: Call to make an appointment with your doctor in 6 weeks. Primary Care Physician: Care Physician,No Primary [Primary Care Provider] - Test Results: Test results from this visit will be discussed in further detail at your follow-up appointment, if applicable. Proposed Discharge Date: 11/15/18
--- NOTE | 2018-11-13 12:18 | DCINST_ITS ---
Discharge Diet: No Restrictions Discharge Activity: May Shower, May Take a Tub Bath May resume sexual activity in: 4-6 weeks Additional Activity Instructions:: Nothing in the vagina for 4-6 weeks. You may return to work/school in 6 weeks. Additional Instructions: If you experience any of the following, contact your healthcare provider. * Bleeding that soaks a pad every hour for 2 hours * Fever 100.4 or higher * Unrelieved abdominal pain * Problems urinating (including inability to urinate or burning while urinating). * Visual changes * Severe headache * Flu-like symptoms * Pain or redness in one of both of your breasts * Pain, warmth, tenderness or swelling in your legs, especially the calf area * Frequent nausea and vomiting * Symptoms of depression or anxiety If you experience any of the following, call 911 or go to the nearest Emergency Room. * Chest pain * Problems breathing * Seizure activity * Partial or complete paralysis of a body part, slurred speech, weakness or drooping of the face, or a sudden inability to walk or hold your balance Allergies/Adverse Reactions: Allergies No Known Allergies Allergy (Verified 05/16/18 14:06) Medications to take at Discharge Ferrous Sulfate [Iron] 325 mg PO DAILY 10/07/18 Vits [Prenatabs FA] 1 tablet PO DAILY 10/07/18 Please Follow Up With: Gonzalo Dotson MD - [phone] When: Call to make an appointment with your doctor in 6 weeks. Primary Care Physician: Care Physician,No Primary [Primary Care Provider] - Test Results: Test results from this visit will be discussed in further detail at your follow- up appointment, if applicable. Proposed Discharge Date: 11/15/18
--- NOTE | 2018-11-13 12:18 | PCM.OPRPT ---
Vaginal Delivery Maternal Presentation: Active Labor 39 6/7 wk labor Method of Induction: Pitocin Amniotic Membrane Rupture Type: Artificial Amniotic Fluid Description: Clear Final JANE: 11/14/18 Final JANE Source: US <20 weeks Gestational age: 39 Weeks and 6 Days Date of Procedure: 11/13/18 Pre-Operative Diagnosis: 39 6/7 wk labor Post-Operative Diagnosis: same Surgery/ Procedure Performed: Spontaneous Vaginal Delivery Type of Anesthesia: Epidural Description of Procedure: of a marquez viable female over intact perineum. Head delivered ROHIT. OP and nares bulb suctioned on perineum. OP and nares bulb suctioned on perineum Shoulders delivered easily. to maternal abdomen for stimulation. Ap 8/9 Cord clamped x two and cut PP exam; no lacerations Placenta delivered by spont expression, expulsion. 3V cord normal appearing, intact with trailing membranes. EBL 250 cc Pt and tolerated delivery well. to recovery, stable condition Ray Patt counts correct times two. Presentation: Vertex, ROHIT Placental Delivery Description: Spontaneous, Expressed Placenta Disposition: [facility] Cord Vessel Description: 3 Vessels Cord Entanglement: None Estimated Blood Loss: 250 Infant A gender: Female (1 minute): 8 (5 minute): 9 Episiotomy Description: None Laceration: None Medications given after delivery: IV Pitocin Complications: None
[2018-11-13] MEDS: Oxytocin 30 units/NS 500 ml 30 UNITS/500 ML IV.SOLN 167 UNITS IV (12:41)
[2018-11-13 16:00] VITALS: BP 122/70; PULSE 91; RESP 16; TEMP 36.5
[2018-11-13] MEDS: Acetaminophen 500 MG Tablet 1000 MG PO (17:38)
[2018-11-13] MEDS: Ibuprofen 600 MG Tablet PO (19:51)
[2018-11-13 20:00] VITALS: BP 111/59; PULSE 69; RESP 16; TEMP 36.5
[2018-11-14] VITALS: BP 115/55; PULSE 65; RESP 18; TEMP 36.6
[2018-11-14] MEDS: Acetaminophen 500 MG Tablet 1000 MG PO ×2 (03:48→11:58)
[2018-11-14 03:50] VITALS: BP 103/56; PULSE 73; RESP 18; TEMP 36.5
--- NOTE | 2018-11-14 07:51 | PCM.PN.OB ---
Subjective: PPD#1 Doing well and would like to go home today. Breast feeding well. no concerns voiced. - Physical Exam General: Alert, Oriented x3, Cooperative, No apparent distress HEENT: Atraumatic Neck: Supple Neurological: Cranial nerves II-XII grossly intact Psych/Mental Status: Normal Affect Vital Signs Temp Pulse Resp BP 97.7 F L 73 18 103/56 L 11/14/18 03:50 11/14/18 03:50 11/14/18 03:50 11/14/18 03:50 Oxygen Delivery Method Room Air Weight: 88.5 kg Body Mass Index (BMI) 32.4 Intake and Output for Last 24 Hours 11/12/18 11/13/18 11/14/18 23:59 23:59 23:59 Intake Total 3329 / 3329 Output Total 2250 / 2250 Balance 1079 / 1079 Medical Necessity - Tobacco Use Smoking Status: Never smoker Assessment/Plan All Active Problems (spontaneous vaginal delivery) (Acute) 41 weeks gestation of (Acute) PPD#1 Stable postop. Dischg home today per pt request. RTO in 6 wk for check up.
--- NOTE | 2018-11-14 08:30 | CASEMGMT ---
Social Work Assessment Labor and Delivery Unit Date of Referral: 11/14/18 Time of Intervention: 8:30A Reason for Referral: SOCIAL CONCERNS History obtained from: [facility]S [facility] CHART Household composition: AREN LIVES HOME WITH MOTHER, REBEKAH HURD, STEP FATHER AND 2 YEAR OLD DAUGHTER, ARLENE HOANG. 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 Childcare/Caregiver(s): MOB STATES GOOD SUPPORT FROM FAMILY. MOB STATES HER MOTHER DOES NOT WORK AND WILL BE ABLE TO ASSIST WITH THAW SHED HEATER TENDER. Transportation: MOB DENIES ANY ISSUES Programs/Agencies Involved: [facility], [facility] Children Services/Legal Issues: NONE REPORTED Behavioral Health Issues: Mental Health History: NONE REPORTED Substance Use History: NONE REPORTED Family/Social Stressors: MOB STATES SHE AND ANI VILLASENOR ARE NO LONGER TOGETHER, BUT JACKLYN WILL HAVE SOME INVOLVEMENT WITH BABY. Support Systems: MOB STATES GOOD SUPPORT FROM PARENTS, GRANDPARENTS, EXTENDED FAMILY AND FRIENDS. Depression/Shaken Baby/Safe Sleeping ALL REVIEWED AND MOB DENIES ANY QUESTIONS. ASSESSMENT: MOB SITTING UP IN ROCKING CHAIR, BABY GIRL- [facility] IN [place] UPON THIS WORKER ENTERING ROOM. INTRODUCED ROLE AND REASON FOR REFERRAL. MOB VERBALIZED UNDERSTANDING OF REFERRAL. MOB STATES DELIVERY WENT WELL AND IS BREAST FEEDING, WHICH IS ALSO GOING WELL SO FAR. AREN STATES LIVES HOME WITH HER MOTHER AND STEP FATHER AND DAUGHTER-ARLENE. MOB REPORTS GOOD SUPPORT FROM FAMILY AND STATES HER MOTHER WILL BE ASSISTING WITH THAW SHED HEATER TENDER SHE DOES NOT WORK. MOB DENIES ANY MENTAL HEALTH OR SUBSTANCE ABUSE. MOB DENIES ANY NEEDS OR SERVICES AND IS HOPEFUL FOR D/C LATER THIS DAY. TURKISH RUBBER IS DR. JIM MCCLENDON. WILL UPDATE NURSERICHIE ON THE ABOVE PLAN: HOME BEFORE. RESOURCES OFFERED, MOB DENIES ANY NEEDS. No other services requested or indicated. -Elida Hassan, HORSES OR MULES TEAMSTER, ROUTE INSPECTOR
[2018-11-14] MEDS: Ferrous Sulfate 325 MG Tablet PO (09:35)
[2018-11-14 09:55] VITALS: BP 116/70; PULSE 50; RESP 12; TEMP 36.5
[2018-11-14] MEDS: Prenatal Vits Tablet 1 TABLET PO (11:59)
[2018-11-14 13:55] VITALS: BP 112/72; PULSE 53; RESP 12; TEMP 36.4
== END 2018-11-14 13:55 | disposition home or self-care (01) | DRG 560 ==
LOC: WPOUT 00:33 → WP 07:18
PROVIDERS: Admitting Provider Obstetrics & Gynecology; Visit Provider Obstetrics & Gynecology
DX: O80 Encounter for full-term uncomplicated delivery (principal); Z3A.39 39 weeks gestation of pregnancy; Z37.0 Single live birth; Z87.891 Personal history of nicotine dependence
CPT/HCPCS: 59050; 85025; 86850; 86900; 99218; J7120; G0378; J3490

== ENCOUNTER → 2018-11-17 12:48 | Outpatient (CLI) | payer MEDICAID, SELFPAY ==
[2018-11-12 23:38] VITALS: BMI 32.4
[2018-11-17 14:17] LABS: Absolute Lymphocyte Count 1.96 X10^3/ul (0.83-4.51); Absolute Neutrophil Count 8.3 X10^3/uL (2.0-7.7); Basophil# 0.03 X10^3/uL; Basophil% 0.3 % (0-1); Eosinophil# 0.34 X10^3/uL; Eosinophils% 2.9 % (0-5); Hematocrit 34.6 % (37-47); Hemoglobin 10.6 g/dl (12.0-15.0); Lymphocyte # 1.96 X10^3/ul (4.0); Mean Corp Hgb Conc 30.6 g/gl (32-36); Mean Corpuscular Volume 78.3 fL (81-99); Mean Platelet Vol. 11.7 fl (6.2-12.0); Monocyte# 0.85 X10^3/uL; Monocyte% 7.4 % (0-10); Neutrophil # 8.32 X10^3/uL (2.7-7.7); Neutrophil % 72.1 % (47-70); Platelet Count 199 K/mm3 (150-450); RBC Distribution Width CV 15.8 % (11.6-14.6); Red Blood Count 4.42 M/mm3 (4.2-5.4); White Blood Count 11.5 K/mm3 (4.4-11.0)
[2018-11-17 14:20] LABS: POSITIVE COUNT NO; POSITIVE DIFFERENTIAL NO
[2018-11-17 14:21] LABS: POSITIVE MORPHOLOGY NO
[2018-11-17 14:32] LABS: Anion Gap 9 (5-15); BUN 9 mg/dL (7-18); BUN/Creat Ratio 13.5 RATIO (10-20); Calcium,Total 8.6 mg/dL (8.5-10.1); Chloride 109 mmol/L (98-107); Creatinine, Serum 0.67 mg/dL (0.55-1.02); EST Glomerular Filtration Rate 118 mL/min (>60); Est Glom Filt Rate - Afr Amer 143 mL/min (>60); Ferritin 13 ng/mL (8-252); Glucose 70 mg/dL (74-106); Iron 43 ug/dL (50-170); Potassium 3.9 mmol/L (3.5-5.1); Sodium Level 141 mmol/L (136-145); Thyroid Stim Hormone (TSH) 0.89 uIU/mL (0.358-3.74)
== END ==
PROVIDERS: Referring Provider Family Medicine; Visit Provider Family Medicine
DX: H53.9 Unspecified visual disturbance (principal); D64.9 Anemia, unspecified; P59.9 Neonatal jaundice, unspecified
CPT/HCPCS: 36415; 80048; 82728; 83540; 84443; 85025

== ENCOUNTER → 2018-12-23 15:04 | Outpatient (CLI) | payer MEDICAID, SELFPAY ==
[2018-11-12 23:38] VITALS: BMI 32.4
[2018-12-23 17:28] LABS: hCG Titer Quant., Serum < 1 mIU/mL (1-3)
[2018-12-23 17:33] LABS: Progesterone Level 0.16 ng/mL (See Comment)
== END ==
PROVIDERS: Visit Provider Obstetrics & Gynecology
DX: Z30.9 Encounter for contraceptive management, unspecified (principal)
CPT/HCPCS: 36415; 84144; 84702

== ENCOUNTER 2019-02-17 22:08 | Emergency (ER) | payer MEDICAID, SELFPAY ==
[2018-11-12 23:38] VITALS: BMI 32.4
[2019-02-17 22:08] VITALS: BP 115/84; PULSE 79; RESP 16; TEMP 36.6; O2SAT 96; BMI 27.6
[2019-02-17] MEDS: 0.9% Normal Saline 1,000 ML 1000 ML IV (22:53)
[2019-02-17] MEDS: Ketorolac 30 MG/ML Syringe IV (22:53)
[2019-02-17 22:59] LABS: Red Blood Cells-Urine 0 SEEN /hpf (0-5)
[2019-02-17 23:01] LABS: Color, Urine Yellow (Yellow); Glucose, Dipstick Normal (Normal); Ketone-Dipstick 5 mg/dl (Negative); Leukocyte Esterase-Dipstick 100 /ul (Negative); Nitrite-Dipstick Negative (Negative); Occult Blood-Urine 150 /ul (Negative); Protein-Dipstick 30 mg/dl (Negative); Specific Gravity, Urine 1.025 (1.002-1.030); Urine Bilirubin Dipstick Negative (Negative); Urine Clarity Clear (Clear); Urine Urobilinogen 1 mg/dl (Normal)
[2019-02-17 23:03] LABS: Internal QC Validated? YES +Cl - CLEAR BKGD
[2019-02-17 23:03] LABS: Absolute Lymphocyte Count 2.78 X10^3/uL (0.83-4.51); Absolute Neutrophil Count 3.8 X10^3/uL (2.0-7.7); Basophil# 0.05 X10^3/uL; Basophil% 0.6 % (0-1); Eosinophil# 0.41 X10^3/uL; Eosinophils% 5.3 % (0-5); Hematocrit 39.4 % (37-47); Hemoglobin 12.5 g/dL (12.0-15.0); Lymphocyte # 2.78 X10^3/ul (4.0); Lymphocyte % 35.7 % (19-41); Mean Corp Hgb Conc 31.7 g/dL (32-36); Mean Corpuscular Hgb 26.7 pg (27.0-32.0); Monocyte# 0.71 X10^3/uL; Monocyte% 9.1 % (0-10); NRBC Flagged by Analyzer 0 % (0-5); Neutrophil # 3.82 X10^3/uL (2.7-7.7); Platelet Count 187 K/mm3 (150-450); RBC Distribution Width CV 13.7 % (11.6-14.6); RBC Distribution Width SD 41.8 fl (35.1-43.9); Red Blood Count 4.69 M/mm3 (4.2-5.4); White Blood Count 7.8 K/mm3 (4.4-11.0)
[2019-02-17 23:04] LABS: Pregnancy, Urine Negative Negative
[2019-02-17 23:08] LABS: Squamous Epithelial Cells - UA 5-10 SEEN /hpf (5-10); White Blood Cells 10-25 SEEN /hpf (0-5)
[2019-02-17 23:09] LABS: Mucous, Urine 2+ /hpf (<or=2+)
[2019-02-17 23:10] LABS: Bacteria RARE /hpf (None Seen)
[2019-02-17 23:18] LABS: AST(SGOT) 22 U/L (15-37); Alanine Aminotransfer ALT/SGPT 52 U/L (13-56); Albumin, Serum 3.8 g/dL (3.2-5.0); Alkaline Phosphatase 113 U/L (45-117); Anion Gap 3 (5-15); BUN 13 mg/dL (7-18); Calcium,Total 8.8 mg/dL (8.5-10.1); Chloride 110 mmol/L (98-107); Creatinine, Serum 0.82 mg/dL (0.55-1.02); EST Glomerular Filtration Rate 93 mL/min (>60); Est Glom Filt Rate - Afr Amer 113 mL/min (>60); Estimated Creatinine Clearance 96.83 ml/min; Globulin 3.9 g/dL (2.2-4.2); Glucose 86 mg/dL (74-106); Lipase 82 U/L (73-393); Potassium 3.7 mmol/L (3.5-5.1); Protein, Total 7.7 g/dL (6.4-8.2); Sodium Level 142 mmol/L (136-145)
--- NOTE | 2019-02-17 23:30 | ED.DCSUM_ITS ---
- ER Visit Summary Date of Service: 02/17/19 Chief Complaint: Pain History of Present Illness: The patient is a 23 F with upper abdominal pain and lumbar pain. Symptoms started this morning and gradually got worse. Nothing seemed to bring them on. Worse with bending and certain positions. Nothing seems to make it better. No history of this pain. No other associated symptoms Physical Examination: Afebrile and vital signs unremarkable. Alert and oriented. No acute distress. Heart regular. Lungs clear. Abdomen is diffusely tender, not just tender over the upper abdomen. There is no guarding or rebound. No distention. No CVA tenderness. She does have diffuse lumbar s pine tenderness to palpation with light touch. Skin appears normal. Test Results: CBC, CMP, lipase unremarkable. test negative. Urinalysis shows signs of infection. Cultures pending. Emergency Department Course and Treatment: Patient presents with back pain and abdominal pain. There are no other symptoms or features to guide diagnosis. I did start with basic labs and urine testing. She has signs of a UTI without any bleeding. No signs of sepsis or other complications. I suspect she may have pyelonephritis given that she is having back pain. I sent a urine culture and started treated with Keflex. She also received Toradol. On reevaluation, her pain had improved greatly. Will discharge on outpatient therapy Keflex 4 times a day for 14 days. Use [id number] remedies for pain. Follow-up with primary care. Treatment Plan: As above Disposition: Discharge Impression: 1. UTI pyelonephritis This note was generated with [employer] dictation software. It may contain incorrect words, spelling, and punctuation that were not noted in review of the chart prior to signing ED Disposition - Plan for ED Patient: Referrals: David Mckinney MD [Primary Care Provider] -
--- NOTE | 2019-02-17 23:34 | ED.DEP ---
ED Disposition - Plan for ED Patient: Instructions: Understanding Urinary Tract Infections (UTIs) Prescriptions: Cephalexin [Keflex] 500 mg PO Q6 14 Days #56 cap Prescription Printed Referrals: David Mckinney MD [Primary Care Provider] -
[2019-02-17] MEDS: Cephalexin 250 MG Capsule 500 MG PO (23:40)
[2019-02-17 23:42] VITALS: RESP 18
--- NOTE | 2019-02-17 23:42 | ED.RN ---
PT GIVEN WRITTEN AND VERBAL DISCHARGE INSTRUCTIONS AND HOME GOING PRESCRIPTIONS. PT VERBALIZES UNDERSTANDING AND DENIES ANY FURTHER QUESTIONS. PT IV D/C AND COVERED WITH 2X2 GAUZE AND PAPER TAPE.
--- NOTE | 2019-02-21 16:51 | ED.RN ---
PT CALLED IN AND STATED SHE HAD A VOICEMAIL FROM THE HOSPITAL BUT WAS NOT ABLE TO LISTEN TO IT. LOOKED INTO CHART, NOTICED THAT URINE CULTURE REPORTED POSITIVE. SPOKE TO DR LACY, PER DR LACY INSTRUCTED PT TO CONTINUE KEFLEX AND MAKE SURE SHE FOLLOWS UP WITH PRIMARY CARE DOCTOR. PT VERBALIZED UNDERSTANDING.
== END 2019-02-17 23:43 | disposition home or self-care (01) ==
LOC: ED 22:35
PROVIDERS: Emergency Provider Emergency Medicine; Family Provider Family Medicine; PCP Family Medicine
DX: N12 Tubulo-interstitial nephritis, not specified as acute or chronic (principal)
CPT/HCPCS: 80053; 81001; 81025; 83690; 85025; 87086; 87088; 96361; 96374; 99284; J7030; A4216

== ENCOUNTER → 2019-03-01 09:28 | Outpatient (CLI) | payer MEDICAID, SELFPAY ==
[2019-02-17 22:08] VITALS: BMI 27.6
--- NOTE | 2019-03-01 09:29 | US_ITS ---
STUDY: ULTRASOUND TRANSVAGINAL CLINICAL: Female, 23 years old. Pelvic pain, IUD placed in December, spotting since TECHNIQUE: Transvaginal COMPARISON: Previous study of April 24, 2017 FINDINGS: Normal uterine size measuring 7.4 x 5.4 x 4.4 cm. There are no myometrial masses. Normal endometrial thickness measuring 2.2 mm. There are no endometrial masses, and there is no fluid in the endometrial cavity. An IUD is seen appearing in adequate position. Normal uterine cervix. Normal right ovary, measuring 2.7 x 3.5 x 2.0 cm. There are multiple follicles without a dominant cyst. Normal left ovary, measuring 2.0 x 2.2 x 1.9 cm. There are multiple follicles without a dominant cyst. There is no free fluid in the pelvis. Polycystic ovary disease: No. US/Transvaginal Non- IMPRESSION: IUD present appearing in adequate position. Bilateral ovarian follicular cysts. There is no fluid in the cul-de-sac. Electronically Signed: Rudi Toledo MD at 17:01 EDT , Service support ,
== END ==
PROVIDERS: Family Provider Family Medicine; PCP Family Medicine; Referring Provider Family Medicine; Visit Provider Family Medicine
DX: R10.2 Pelvic and perineal pain (principal)
CPT/HCPCS: 76830

== ENCOUNTER → 2019-08-26 15:21 | Outpatient (CLI) | payer MEDICAID, SELFPAY ==
[2019-08-26 18:03] LABS: Chlamydia Trachomatis by PCR POSITIVE (Negative); Neisserai gonorrhoeae by PCR Negative (Negative); Probe Check PASS
== END ==
PROVIDERS: PCP Family Medicine; Visit Provider Obstetrics & Gynecology
DX: Z11.3 Encounter for screening for infections with a predominantly sexual mode of transmission (principal)
CPT/HCPCS: 87491; 87591

== ENCOUNTER → 2019-09-30 | Outpatient (CLI) | payer MEDICAID, SELFPAY ==
[2019-09-30 14:23] LABS: Absolute Lymphocyte Count 1.89 X10^3/uL (0.83-4.51); Absolute Neutrophil Count 4.7 X10^3/uL (2.0-7.7); Basophil# 0.04 X10^3/uL; Basophil% 0.6 % (0-1); Eosinophil# 0.17 X10^3/uL; Eosinophils% 2.4 % (0-5); Hematocrit 37.4 % (37-47); Lymphocyte # 1.89 X10^3/ul (4.0); Lymphocyte % 26.3 % (19-41); Mean Corp Hgb Conc 32.1 g/dL (32-36); Mean Corpuscular Hgb 27.3 pg (27.0-32.0); Mean Corpuscular Volume 85.2 fL (81-99); Mean Platelet Vol. 12.2 fl (6.2-12.0); Monocyte% 5.6 % (0-10); NRBC Flagged by Analyzer 0 % (0-5); Neutrophil # 4.65 X10^3/uL (2.7-7.7); Neutrophil % 64.5 % (47-70); Platelet Count 198 K/mm3 (150-450); RBC Distribution Width CV 14.2 % (11.6-14.6); RBC Distribution Width SD 43.7 fl (35.1-43.9); Red Blood Count 4.39 M/mm3 (4.2-5.4); White Blood Count 7.2 K/mm3 (4.4-11.0)
[2019-09-30 14:29] LABS: Color, Urine Yellow (Yellow); Glucose, Dipstick Normal (Normal); Ketone-Dipstick Negative (Negative); Leukocyte Esterase-Dipstick 100 /ul (Negative); Nitrite-Dipstick Negative (Negative); Occult Blood-Urine Negative /ul (Negative); Protein-Dipstick Negative (Negative); Specific Gravity, Urine 1.015 (1.002-1.030); Urine Bilirubin Dipstick Negative (Negative); Urine Clarity Cloudy (Clear); Urine Urobilinogen Normal (Normal)
[2019-09-30 14:40] LABS: Amphetamine Urine VISTA NEGATIVE (<1000 ng/mL); Barbiturate Urine VISTA NEGATIVE (< 200 ng/mL); Benzodiazepine Urine VISTA NEGATIVE (< 200 ng/mL); Cocaine Urine VISTA NEGATIVE (< 300 ng/mL); Ecstacy Urine VISTA NEGATIVE (< 500 ng/mL); Methadone Urine VISTA NEGATIVE (< 300 ng/mL); PCP Urine VISTA NEGATIVE (< 25 ng/mL); THC Urine VISTA NEGATIVE (< 50 ng/mL); Vista UDS pH Range 7
[2019-09-30 14:49] LABS: Thyroid Stim Hormone (TSH) 0.56 uIU/mL (0.358-3.74)
[2019-09-30 15:25] LABS: HIV - WCH Non-Reactive (Nonreactive); Hepatitis B Surface Antigen Non-Reactive (Nonreactive); Hepatitis C Antibody Non-Reactive (Nonreactive); Rubella IgG 39.8 IU/mL
[2019-10-07 00:51] LABS: Prenatal RPR NONREACTIVE (NONREACTIVE)
== END | disposition home or self-care (01) ==
LOC: LABSPEC 14:00
PROVIDERS: PCP Family Medicine; Referring Provider Obstetrics & Gynecology; Visit Provider Obstetrics & Gynecology
DX: Z34.81 Encounter for supervision of other normal pregnancy, first trimester (principal)
CPT/HCPCS: 80307; 81002; 84443; 85025; 86703; 86762; 86803; 87340

== ENCOUNTER → 2019-12-20 14:02 | Outpatient (CLI) | payer MEDICAID, SELFPAY | PROVIDERS: PCP Family Medicine; Visit Provider Obstetrics & Gynecology | DX: N39.0 Urinary tract infection, site not specified (principal) | CPT/HCPCS: 87086; 87088; 87186 ==

== ENCOUNTER → 2020-01-03 17:30 | Outpatient (CLI) | payer MEDICAID, SELFPAY | PROVIDERS: PCP Family Medicine; Referring Provider Obstetrics & Gynecology; Visit Provider Obstetrics & Gynecology | DX: O26.892 Other specified pregnancy related conditions, second trimester (principal); R30.0 Dysuria; Z3A.00 Weeks of gestation of pregnancy not specified | CPT/HCPCS: 87086; 87088 ==

== ENCOUNTER 2020-01-12 21:54 | Inpatient (IN) | payer MEDICAID, SELFPAY ==
[2020-01-12] VITALS (16 sets, daily range): BP systolic 121–144; BP diastolic 71–79; PULSE 105–115; TEMP 36.4–36.6; O2SAT 98–100; BMI 25.0
[2020-01-12] MEDS: Lactated Ringers 1,000 ML 50 ML IV (22:45)
[2020-01-12] MEDS: Lactated Ringers 500 ML 999 ML IV (22:50)
[2020-01-12 22:56] LABS: Absolute Neutrophil Count 20.6 X10^3/uL (2.0-7.7); Basophil# 0.08 X10^3/uL; Basophil% 0.3 % (0-1); Eosinophil# 0.07 X10^3/uL; Eosinophils% 0.3 % (0-5); Hematocrit 35.1 % (37-47); Hemoglobin 11.4 g/dL (12.0-15.0); Lymphocyte % 3.6 % (19-41); Mean Corp Hgb Conc 32.5 g/dL (32-36); Mean Corpuscular Hgb 27.5 pg (27.0-32.0); Mean Corpuscular Volume 84.6 fL (81-99); Mean Platelet Vol. 11.7 fl (6.2-12.0); Monocyte% 9.3 % (0-10); NRBC Flagged by Analyzer 0 % (0-5); Neutrophil # 20.62 X10^3/uL (2.7-7.7); Neutrophil % 82.9 % (47-70); POSITIVE DIFFERENTIAL YES; POSITIVE MORPHOLOGY YES; Platelet Count 178 K/mm3 (150-450); RBC Distribution Width CV 13.2 % (11.6-14.6); RBC Distribution Width SD 41.2 fl (35.1-43.9); Red Blood Count 4.15 M/mm3 (4.2-5.4); White Blood Count 24.9 K/mm3 (4.4-11.0)
[2020-01-12 22:59] LABS: Differential Indicated SCAN CRITERIA MET
[2020-01-12 23:18] LABS: Differential Comment SCANNED
[2020-01-12 23:40] LABS: Amphetamine Urine VISTA NEGATIVE (<1000 ng/mL); Barbiturate Urine VISTA NEGATIVE (< 200 ng/mL); Benzodiazepine Urine VISTA NEGATIVE (< 200 ng/mL); Cocaine Urine VISTA NEGATIVE (< 300 ng/mL); Ecstacy Urine VISTA NEGATIVE (< 500 ng/mL); Methadone Urine VISTA NEGATIVE (< 300 ng/mL); PCP Urine VISTA NEGATIVE (< 25 ng/mL); THC Urine VISTA NEGATIVE (< 50 ng/mL); Vista UDS pH Range 5
--- NOTE | 2020-01-12 23:55 | HP.PCM_ITS ---
- Problem List (1) 25 weeks gestation of Status: Acute (2) demise > 22 weeks, delivered, current hospitalization Status: Acute History Date of Admission: 01/12/20 Final JANE: 04/22/20 Final JANE Source: US <20 weeks Gestational age: 25 Weeks and 5 Days History of this : This is a 24 year-old, G [3], P [2], at 25 weeks gestational age. Allergies No Known Allergies Allergy (Verified 05/16/18 14:06) Home Medications: Home Medications Acetaminophen [Tylenol Extra Strength] 500 mg PO Q6H PRN PRN 01/12/20 Smoking Status: Former smoker Alcohol: None Substance Use Type: Methamphetamine - reports to RN x 1 week ago Number of Fetus(es): 1 History Past Pregnancies: PRIOR DELIVERY HISTORY DEL DATE GEST LAB WT LB WT OZ TYPE ANES LABOR TX 20 Feb 06 41 18 8 13 Vag Epidural No November 08 39 13 8 2 Vag Epidural No Labs: Mom's Labs & Results 01/12/20 01/12/20 01/12/20 22:45 22:45 22:56 WBC 24.9 H RBC 4.15 L Hgb 11.4 L Hct 35.1 L MCV 84.6 MCH 27.5 MCHC 32.5 RDW Std Deviation 41.2 RDW Coeff of Joe 13.2 Plt Count 178 MPV 11.7 Immature Gran % (Auto) 3.600 H Neut % (Auto) 82.9 H Lymph % (Auto) 3.6 L [place] % (Auto) 9.3 Eos % (Auto) 0.3 Baso % (Auto) 0.3 Absolute Neuts (auto) 20.6 H Absolute Lymphs (auto) 0.90 Nucleated RBC % 0 Differential Comment SCANNED Diff Path Review May foll Urine Color Urine Clarity Urine pH Ur Specific Christoval Urine Protein Urine Glucose (UA) Urine Ketones Urine Occult Blood Urine Nitrite Urine Bilirubin Urine Urobilinogen Ur Leukocyte Esterase Urine RBC Urine WBC Ur Squamous Epith Cells Urine Bacteria Urine Mucus Urine Opiates Screen Urine Methadone Screen Ur Barbiturates Screen Ur Phencyclidine Scrn Ur Amphetamines Screen U Methamphetamin-MDMA U Benzodiazepines Scrn Urine Cocaine Screen U Cannabinoids Screen Ur Drug Screen Comment COVID-19 (OFELIA) Pending Blood Type A POSITIVE Antibody Screen NEGATIVE 01/12/20 01/12/20 23:19 23:19 WBC RBC Hgb Hct MCV MCH MCHC RDW Std Deviation RDW Coeff of Joe Plt Count MPV Immature Gran % (Auto) Neut % (Auto) Lymph % (Auto) [place] % (Auto) Eos % (Auto) Baso % (Auto) Absolute Neuts (auto) Absolute Lymphs (auto) Nucleated RBC % Differential Comment Diff Path Review Urine Color Yellow Urine Clarity Clear Urine pH 5.0 Ur Specific Christoval 1.015 Urine Protein 30 H Urine Glucose (UA) 1000 H Urine Ketones 5 H Urine Occult Blood 250 H Urine Nitrite Negative Urine Bilirubin Negative Urine Urobilinogen 4 H Ur Leukocyte Esterase 500 H Urine RBC 5-10 SEEN Urine WBC 10-25 SEEN Ur Squamous Epith Cells 0-5 SEEN Urine Bacteria 0 SEEN Urine Mucus 0 SEEN Urine Opiates Screen NEGATIVE Urine Methadone Screen NEGATIVE Ur Barbiturates Screen NEGATIVE Ur Phencyclidine Scrn NEGATIVE Ur Amphetamines Screen NEGATIVE U Methamphetamin-MDMA NEGATIVE U Benzodiazepines Scrn NEGATIVE Urine Cocaine Screen NEGATIVE U Cannabinoids Screen NEGATIVE Ur Drug Screen Comment COVID-19 (OFELIA) Blood Type Antibody Screen Course Did the patient receive Yes care? Labs Blood Type: A RH: POSITIVE RPR/VDRL/Syphilis Nonreactive Rubella status Immune HbSAg Negative Date Done: 09/30/19 Chlamydia Positive Gonorrhea Negative HIV/AIDS Non-Reactive Group B Strep: Not Done Current Obstetrical History Gestational Diabetes No Incompetent Cervix No Infertility No IUGR No Macrosomia No Hypertension/Pre-eclampsia No Placenta Previa/Abruption No PTL/PROM No Uterine anomaly No Oligohydramnios No Polyhydramnios No Multiple gestation No Past Medical History Asthma No Diabetes No Hypertension No Heart disease No Mitral valve prolapse No Neurologic/Seizure disorder/ Yes: migraines Migraines Kidney disease No Liver disease No Varicosities No Clotting disorders/Hx of DVT No Thyroid Dysfunction No Other medical diseases No Psychiatric disorders No Major trauma No Abnormal PAP smear No Sleep apnea No Mammogram in the last 2 years No Social History Marital Status: SINGLE Alleged father Jad Weinstein Hx Smoking No Smoking Status Former smoker Substance Use Type Methamphetamine What date/time did you last last used methamphetamines 1 week ago use any of the above? Expected Infant Delivery Method: Spontaneous Vaginal Number of Visits: 6 Review of Systems Constitutional: Denies: Chills, Fever, Weight Change HEENT: Denies: Head Aches, Sinus Congestion, Sinus Drainage Cardiovascular: Denies: Chest Pain, Palpitations Respiratory: Denies: Cough, Shortness of breath at rest, Sputum production Gastrointestinal: Denies: Abdominal Pain, Nausea, Vomiting Genitourinary: Denies: Dysuria Musculoskeletal: Denies: Joint Pain, Joint Tenderness Skin: Denies: Rash, Wounds Neurological: Denies: Numbness, Tingling, Focal weakness Psychiatric: Denies: Anxiety, Depression, Homicidal Ideations, Suicidal Ideations Hematologic/ Lymphatic: Denies: Easy Bruising, Easy Bleeding Physical Exam Vitals: Vital Signs Temp Pulse BP Pulse Ox 98.7 F 136 H 156/81 H 100 01/13/20 01:11 01/13/20 02:04 01/13/20 02:04 01/13/20 01:11 General: Alert, Oriented x3, No apparent distress HEENT: Atraumatic, Normocephalic. Negative for: Thyromegaly, Lymphadenopathy Cardiovascular: Regular rate, Regular Rhythm Lungs: Clear to auscultation Abdomen: Bowel Sounds Present, Gravid Neurological: Deep Tendon Reflexes 2+/4 and Symmetrical, Neuro grossly intact UNIVERSITY EXTENSION SPECIALIST: Normal external genitalia. Negative for: Vulvar lesions Estimated gestational size: Appropriate for gestational size Presentation: Breech Cervix Dilation (cm): 2 - per MD Station: -2 Effacement (%): 75 Assessment/Plan All Active Problems 25 weeks gestation of (Acute) demise > 22 weeks, delivered, current hospitalization (Acute) (spontaneous vaginal delivery) (Acute) 41 weeks gestation of (Acute) A/P: This is a 24 year-old, G [3], P [2], at 25 weeks gestational age. Came into triage this evening with 9/[address] Dotson performed bedside ultrasound to reveal IUFD SVE per Dr. Dotson on admission /-2 Plans epidural for pain management Expect of 25 week male IUFD Procedure Criteria Procedure Type: Elective COVID Risk Discussion: The surgeon/proceduralist and patient have discussed in detail the risk of exposure to and/or potential harm posed by the COVID-19 virus with having a surgery/procedure at this time versus the risk of delaying the surgery/procedure. It is not possible to know either the risk of delaying the surgery or procedure or chance of getting an infection with perfect accuracy, but a joint decision was made between the patient and the surgeon/proceduralist to proceed at this time with the scheduled surgery/procedure as indicated on the consent form.
[2020-01-13] VITALS (23 sets, daily range): BP systolic 97–156; BP diastolic 55–81; PULSE 95–136; RESP 16–18; TEMP 36.6–37.3; O2SAT 99–100
--- NOTE | 2020-01-13 | PLAC_PTH ---
PATIENT: SHILPA HOANG LOC: WP U#:[id number] AGE/SX: ROOM: WP021 RE01/12/[address]: Kaitlynn Whittaker CNM : 1995 BED: 1 DIS: 01/13/2020 SPEC #: [id number] RECD: 01/13/20 02:36 STATUS: BRIE REMelani #: [id number] TERESA: 01/13/20 00:[address]: Kaitlynn Whittaker DEPT: SURGICAL PATHOLOGY RECD BY: Filipe García ENTERED: 01/13/20 10:19 SP TYPE: PLACENTA OTHR DR: Dr. David Mckinney MD Tissues: Placenta, NOS Procedures: Surgery Specimen Level V HEADER OPERATION: Vaginal delivery PRE-OP DIAGNOSIS: demise TISSUE SUBMITTED: Placenta MICROSCOPIC DIAGNOSIS Wright placenta (301 gm): Umbilical cord - trivascular with no inflammation. Placental membranes - consistent with acute chorioamnionitis. Placental disc - mild acute vasculitis of superficial placental vessels. Mildly increased intraparenchymal fibrin plaques. AM:zenia 01/17/20 MICROSCOPIC DESCRIPTION Slides are reviewed. GROSS DESCRIPTION SPECIMEN: PLACENTA / CLINICAL INFORMATION: A. Weight: Not noted B. Gestational Age: 25 weeks C. Sex: Male PLACENTAL WEIGHT (POST FIXATION): 301 gm PLACENTAL DIMENSIONS: 15 x 10 x 2.5 cm PLACENTAL SHAPE: Usual ovoid PLACENTAL WEIGHT FOR GESTATIONAL AGE: Within 10-99th percentile MEMBRANES - Present A. Insertion: Marginal B. Site of rupture from edge: At edge of placental disc C. Color of membrane: [place]-rocha D. Abnormalities: None UMBILICAL CORD - Present A. Color: [place]-rocha B. Insertion: Central C. Length: 36 cm D. Diameter: 1.4 cm, pink and lacerated E. Number of vessels: Three F. Abnormalities: None PLACENTAL DISC - Present A. Color of surface: [place]-rocha B. surface abnormalities: None C. Maternal cotyledons: Intact with minimal tears. Present are a few adherent blood clots. D. Attached retro placental clot: No clot E. Cut surface: Dark red and spongy F. Lesions: None G. Separate clot: Also received are multiple fragments of blood clot weighing 255 gm and measuring in aggregate 15 x 15 x 5 cm. SECTIONS SUBMITTED: 1. Membrane roll 2. Cord, maternal end 3. Cord, end 4. Placental disc, and maternal surfaces 5. Placental disc, and maternal surfaces 6. Placental disc, and maternal surfaces SJ:zenia 01/14/20 TC:2 CPT: 42762
[2020-01-13] MEDS: fentaNYL-bupivacaine (epidural) 100 ML BAG EPIDURAL (00:02)
[2020-01-13 00:23] LABS: Bacteria 0 SEEN /hpf (None Seen); Mucous, Urine 0 SEEN /hpf (<or=2+)
[2020-01-13 00:28] LABS: Color, Urine Yellow (Yellow); Glucose, Dipstick 1000 mg/dl (Normal); Ketone-Dipstick 5 mg/dl (Negative); Leukocyte Esterase-Dipstick 500 /ul (Negative); Nitrite-Dipstick Negative (Negative); Occult Blood-Urine 250 /ul (Negative); Protein-Dipstick 30 mg/dl (Negative); Specific Gravity, Urine 1.015 (1.002-1.030); Urine Bilirubin Dipstick Negative (Negative); Urine Clarity Clear (Clear); Urine Urobilinogen 4 mg/dl (Normal)
[2020-01-13 00:44] LABS: Red Blood Cells-Urine 5-10 SEEN /hpf (0-5); Squamous Epithelial Cells - UA 0-5 SEEN /hpf (5-10); White Blood Cells 10-25 SEEN /hpf (0-5)
[2020-01-13] MEDS: Oxytocin 30 units/NS 500 ml 30 UNITS/500 ML IV.SOLN 334 UNITS IV (01:45)
--- NOTE | 2020-01-13 02:18 | OP.PCM_ITS ---
Problem List (1) 25 weeks gestation of Status: Acute (2) demise > 22 weeks, delivered, current hospitalization Status: Acute Vaginal Delivery Maternal Presentation: Active Labor Amniotic Membrane Rupture Type: Spontaneous at home Amniotic Fluid Description: Clear Final JANE: 04/22/20 Final JANE Source: US <20 weeks Gestational age: 25 Weeks and 5 Days Date of Procedure: 01/13/20 Pre-Operative Diagnosis: IUFD Post-Operative Diagnosis: S/P Surgery/ Procedure Performed: Spontaneous Vaginal Delivery Type of Anesthesia: Epidural Description of Procedure: Panel Edge Painter called to bedside at 0123 with RN reporting that fetus was in the canal +2 station. On arrival to unit, patients mother at bedside with her. When attempting SVE, specification writer found male fetus had spontaneously delivered on the bed. Cord cut by CNM [facility] Placenta was noted to be sitting in the vaginal canal and easily manually removed by CNM. Small fragments of placenta manually expressed from uterus. Placenta appeared fragmented on inspection, will be sent to pathology. IV Pitocin started and fundus firmed well at u/3. No lacerations noted and EBL 150. Sponge count correct x2. Male fetus appears intact, whole on inspection. Patient declines Anora/ testing. Placental Delivery Description: Spontaneous Placenta Disposition: Routine to Lab Cord Entanglement: None Drain: Johnson to straight drain Estimated Blood Loss: 150 A gender: Male Episiotomy Description: None Laceration: None Medications given after delivery: IV Pitocin
--- NOTE | 2020-01-13 02:25 | DCINST_ITS ---
Discharge Diet: No Restrictions Discharge Activity: Return to Normal Activity, May not drive while taking narcotic pain medications., May Shower May resume sexual activity in: 4-6 weeks Additional Activity Instructions:: Nothing in the vagina for 4-6 weeks. You may return to work/school in 6 weeks. Call your doctor if your incision/area has: Continuous Slow Oozing, Sudden Increased Bleeding, Increased Pain/ Swelling, Increased Redness, Foul Smelling Discharge Additional Instructions: If you experience any of the following, contact your healthcare provider. * Bleeding that soaks a pad every hour for 2 hours * Fever 100.4 or higher * Unrelieved incision or abdominal pain * Swelling, redness, discharge or bleeding from your incision or episiotomy site * Your incision begins to separate * Problems urinating (including inability to urinate or burning while urinating). * Visual changes * Severe headache * Flu-like symptoms * Pain or redness in one of both of your breasts * Pain, warmth, tenderness or swelling in your legs, especially the calf area * Frequent nausea and vomiting * Symptoms of depression or anxiety If you experience any of the following, call 911 or go to the nearest Emergency Room. * Chest pain * Problems breathing * Seizure activity * Partial or complete paralysis of a body part, slurred speech, weakness or drooping of the face, or a sudden inability to walk or hold your balance Allergies/Adverse Reactions: Allergies No Known Allergies Allergy (Verified 05/16/18 14:06) Medications to take at Discharge Acetaminophen [Tylenol Extra Strength] 500 mg PO Q6H PRN PRN 01/12/20 Please Follow Up With: Gonzalo Dotson MD When: Call to make an appointment with your doctor in 6 weeks. Primary Care Physician: David Mckinney MD [Primary Care Provider] - Test Results: Test results from this visit will be discussed in further detail at your follow- up appointment, if applicable.
[2020-01-13 03:39] LABS: Pathology Specimen OB SEE PATHOLOGY REPORT
[2020-01-13] MEDS: 0.9% Saline Lock 10 ML Syringe IV (04:18)
[2020-01-13] MEDS: Ibuprofen 600 MG Tablet PO (09:30)
[2020-01-13] MEDS: Acetaminophen 500 MG Tablet 1000 MG PO (09:48)
[2020-01-13 12:10] LABS: Pathologist Review Reviewed
== END 2020-01-13 10:15 | disposition home or self-care (01) | DRG 560 ==
LOC: WPOUT 21:57 → WP 21:57
PROVIDERS: Obstetrics & Gynecology; Admitting Provider Obstetrics & Gynecology; PCP Family Medicine; Visit Provider Obstetrics & Gynecology
DX: O36.4XX0 Maternal care for intrauterine death, not applicable or unspecified (principal); Z3A.25 25 weeks gestation of pregnancy; Z37.1 Single stillbirth; Z87.891 Personal history of nicotine dependence
CPT/HCPCS: 76815; 80307; 81001; 85025; 86850; 86900; 86901; 87635; 88307; 99218; G2023; J7120; A4216; G0378; U0003

== ENCOUNTER 2020-01-15 13:48 | Emergency (ER) | payer MEDICAID, SELFPAY ==
[2020-01-12 21:16] VITALS: BMI 25.0
[2020-01-15] VITALS (9 sets, daily range): BP systolic 113–141; BP diastolic 73–83; PULSE 108–133; RESP 16–20; TEMP 37.1–39.6; O2SAT 98–99; BMI 25.2
--- NOTE | 2020-01-15 14:05 | US_ITS ---
STUDY: ULTRASOUND OF THE FEMALE PELVIS - COMPLETE REASON FOR EXAM: Female, 24 years old. Stillborn delivery at 25 weeks and 3 days. TECHNIQUE: Transabdominal and Transvaginal TECHNICAL QUALITY: Adequate. COMPARISON: 03/01/2019 FINDINGS: The uterus is anteverted and is in a midline position. The uterus measures 16.1 x 11.8 x 8.1 cm. Normal uterine cervix. The endometrium measures twenty-one mm in thickness, and is heterogeneous. There is no endometrial mass or retained products of conception identified. There is no demonstrated myometrial mass. The right ovary is visualized. The right ovary measures 4.4 x 3.3 x 2.7 cm. There is no right ovarian cyst or ovarian mass. There is no visualized right adnexal mass or complex lesion. There is normal arterial and normal venous vascularity. The left ovary is visualized. The left ovary measures 3.1 x 3.0 x 2.1 cm. There is no left ovarian cyst or ovarian mass. There is no visualized left adnexal mass or complex lesion. There is normal arterial and normal venous vascularity. There is no fluid in the cul-de-sac. US/Transvaginal Non- IMPRESSION: Thickened endometrium. No definite retained products of conception identified. Normal sonographic appearance of the ovaries. No evidence of ovarian torsion. Electronically Signed: Hernandez Castellon, at 15:53 EDT Tel , Service support ,
--- NOTE | 2020-01-15 14:07 | ED.VISSUMM ---
- ER Visit Summary Date of Service: 01/15/20 Chief Complaint: Fever, pelvic pain History of Present Illness: The patient is a 24 F who presents with fever and pelvic and lower abdominal pain that has been getting worse over the past 3 days. Patient states she had a recent stillborn 3 days ago. Patient states her pain has been getting worse since that time. Patient states her temperature at home was up to 102.8. Patient states she has been taking Tylenol with no improvement of her fever. Patient describes her pain as sharp. Patient states her pain is worse over the lower abdomen but also radiates into her back and left flank. Patient admits to some slight dysuria but denies any hematuria. Patient does admit to a cough. Physical Examination: Vital signs are stable except for tachycardia of 130. Patient does have a temperature of 102.1 here. Patient is in no acute distress. Oral mucosa is pink and moist. Neck is supple. Trachea is midline. There is no JVD. There is no lymphadenopathy. Heart was regular rate and rhythm. Lungs are clear and equal bilaterally. Abdomen is soft. Bowel sounds are normal. There is diffuse tenderness but worse over the lower abdomen. There is no rebound or guarding noted. Cranial nerves II through XII are intact. There are no focal motor or sensory deficits. Test Results: CBC showed a mild anemia with hemoglobin of 10.1 and hematocrit 32.6. Comprehensive metabolic profile was essentially within normal limits. Lipase was normal. Urinalysis shows 10-25 white blood cells and 10-25 red blood cells with 5-10 epithelial cells. Ultrasound of the pelvis was obtained. There is thickened endometrium but there is no retained products of conception. This was interpreted by the radiologist and reviewed by myself. Emergency Department Course and Treatment: Patient was given IV fluids. Patient was given morphine and Zofran. Patient was given Tylenol initially. Patient's temperature increased after this to 103. Patient was given ibuprofen. Patient is afebrile after this. Patient is feeling better. Dr. Dotson or his covering physician was paged. While awaiting for return phone call, patient states she wants to go home. Patient will be given prescription for Augmentin. Patient will sign out AGAINST MEDICAL ADVICE. Patient understands the risk. Patient understood that she can return if worse in any way. All questions were answered. Disposition: Discharge AGAINST MEDICAL ADVICE Impression: 1. Endometritis This note was generated with Dragon dictation software. It may contain incorrect words, spelling, and punctuation that were not noted in review of the chart prior to signing ED Disposition - Plan for ED Patient: Disposition: Against Medical Advice Diagnosis: Endometritis Instructions: ED PID Prescriptions: Amox/Clavulanate Tablet [Augmentin Tablet] 875 mg PO Q12H #20 tab Prescription Printed Referrals: Gonzalo Dotson MD [STAFF PHYSICIAN] - 3-5 Days
[2020-01-15 14:29] LABS: Hematocrit 32.6 % (37-47); Hemoglobin 10.1 g/dL (12.0-15.0); Mean Corpuscular Hgb 27.4 pg (27.0-32.0); Mean Corpuscular Volume 88.6 fL (81-99); Mean Platelet Vol. 11.3 fl (6.2-12.0); POSITIVE COUNT YES; POSITIVE MORPHOLOGY YES; Platelet Count 110 K/mm3 (150-450); RBC Distribution Width CV 13.7 % (11.6-14.6); RBC Distribution Width SD 44.2 fl (35.1-43.9); Red Blood Count 3.68 M/mm3 (4.2-5.4); White Blood Count 6.2 K/mm3 (4.4-11.0)
[2020-01-15 14:32] LABS: Differential Indicated MANUAL DIFF
[2020-01-15 14:46] LABS: ALB/GLOB Ratio 0.4 RATIO (0.9-2.4); AST(SGOT) 29 U/L (15-37); Alanine Aminotransfer ALT/SGPT 21 U/L (13-56); Alkaline Phosphatase 154 U/L (45-117); Anion Gap 5 (5-15); BUN 8 mg/dL (7-18); BUN/Creat Ratio 15.6 RATIO (10-20); Calcium,Total 8.3 mg/dL (8.5-10.1); Chloride 106 mmol/L (98-107); Creatinine, Serum 0.51 mg/dL (0.55-1.02); EST Glomerular Filtration Rate 158 mL/min (>60); Est Glom Filt Rate - Afr Amer 191 mL/min (>60); Estimated Creatinine Clearance 154.37 ml/min; Globulin 4.6 g/dL (2.2-4.2); Glucose 114 mg/dL (74-106); Lipase 55 U/L (73-393); Potassium 3.4 mmol/L (3.5-5.1); Protein, Total 6.6 g/dL (6.4-8.2); Sodium Level 136 mmol/L (136-145)
[2020-01-15] MEDS: Ondansetron 4 MG/2 ML Vial IV (14:50)
[2020-01-15] MEDS: Morphine 4 MG/ML Syringe IV (14:50)
[2020-01-15] MEDS: 0.9% Normal Saline 1,000 ML 1000 ML IV (14:52)
[2020-01-15] MEDS: Acetaminophen 500 MG Tablet 1000 MG PO (14:53)
[2020-01-15 15:00] LABS: Neutrophil-Band 4 % (0-5); Neutrophil-Segmented 81 % (47-70); Total Cells Counted 100 (MANUAL DIFF)
[2020-01-15 15:01] LABS: Hypochromasia 1+; Lymphocyte 10 % (19-41); Metamyelocyte 2 % (0-1); Monocyte 2 % (0-10); Myelocyte 1 (0-0); Platelet Estimate SLT DEC (ADEQ)
[2020-01-15 15:02] LABS: Absolute Lymphocyte Count 0.62 X10^3/uL (0.83-4.51); Absolute Neutrophil Count 5.3 X10^3/uL (2.0-7.7)
[2020-01-15] MEDS: Ibuprofen 600 MG Tablet PO (16:54)
[2020-01-15 17:06] LABS: Bacteria 0 SEEN /hpf (None Seen); Mucous, Urine 0 SEEN /hpf (<or=2+)
[2020-01-15 17:08] LABS: Color, Urine Yellow (Yellow); Glucose, Dipstick Normal (Normal); Ketone-Dipstick Negative (Negative); Leukocyte Esterase-Dipstick 100 /ul (Negative); Nitrite-Dipstick Negative (Negative); Occult Blood-Urine 150 /ul (Negative); Protein-Dipstick 30 mg/dl (Negative); Specific Gravity, Urine 1.015 (1.002-1.030); Urine Bilirubin Dipstick Negative (Negative); Urine Clarity Sl. Cloudy (Clear); Urine Urobilinogen 8 mg/dl (Normal)
[2020-01-15 17:16] LABS: Red Blood Cells-Urine 10-25 SEEN /hpf (0-5); Squamous Epithelial Cells - UA 5-10 SEEN /hpf (5-10); White Blood Cells 10-25 SEEN /hpf (0-5)
[2020-01-15] MEDS: Amox/Clavulanate 875 MG Tablet PO (19:58)
[2020-01-17 12:56] LABS: Pathologist Review Reviewed
== END 2020-01-15 19:59 | disposition left against medical advice (07) ==
PROVIDERS: Emergency Provider Emergency Medicine; PCP Family Medicine
DX: O86.12 Endometritis following delivery (principal); R93.89 Abnormal findings on diagnostic imaging of other specified body structures; R30.0 Dysuria
CPT/HCPCS: 76830; 80053; 81001; 83690; 85025; 93976; 96361; 96374; 96375; 99284; A4216; J2405

== ENCOUNTER 2020-07-20 19:31 | Emergency (ER) | payer MEDICAID, SELFPAY ==
[2020-01-15 13:50] VITALS: BMI 25.2
[2020-07-20 19:32] VITALS: BP 142/102; PULSE 108; RESP 18; TEMP 36.9; O2SAT 100
[2020-07-20 19:47] VITALS: TEMP 37.1; O2SAT 100
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
[2020-07-20 21:28] VITALS: BP 138/98; PULSE 100; RESP 18; O2SAT 95
[2020-07-20] MEDS: Naproxen 250 MG Tablet 500 MG PO (22:45)
[2020-07-20 22:46] VITALS: BP 130/83; PULSE 88; RESP 16; O2SAT 99
== END 2020-07-20 23:00 ==
PROVIDERS: Emergency Provider Emergency Medicine; PCP Family Medicine
DX: S40.012A Contusion of left shoulder, initial encounter (principal); S09.90XA Unspecified injury of head, initial encounter; V49.9XXA Car occupant (driver) (passenger) injured in unspecified traffic accident, initial encounter; Y93.9 Activity, unspecified; Y92.410 Unspecified street and highway as the place of occurrence of the external cause; Y99.9 Unspecified external cause status
CPT/HCPCS: 70450; 72125; 73030; 73610; 99284

== ENCOUNTER 2021-02-22 12:15 | Emergency (ER) | payer MEDICAID, SELFPAY ==
[2021-02-22 12:16] VITALS: BP 132/87; PULSE 92; RESP 18; TEMP 36.3; BMI 25.0
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
[2021-02-22] MEDS: Ibuprofen 400 MG Tablet 800 MG PO (14:20)
[2021-02-22] MEDS: cycloBENZAPRine HCl 10 MG Tablet PO (14:20)
== END 2021-02-22 14:26 | disposition home or self-care (01) ==
LOC: ED 14:09
PROVIDERS: Emergency Provider Emergency Medicine; PCP Family Medicine
DX: S16.1XXA Strain of muscle, fascia and tendon at neck level, initial encounter (principal); V43.62XA Car passenger injured in collision with other type car in traffic accident, initial encounter; Y99.8 Other external cause status; Y92.410 Unspecified street and highway as the place of occurrence of the external cause; F17.200 Nicotine dependence, unspecified, uncomplicated
CPT/HCPCS: 99283

== ENCOUNTER → 2021-04-23 08:30 | Outpatient (CLI) | payer MEDICAID, SELFPAY | PROVIDERS: PCP Family Medicine; Referring Provider Physician Assistant Surgical; Visit Provider Physician Assistant Surgical | DX: Z11.52 Encounter for screening for COVID-19 (principal) | CPT/HCPCS: 87635; U0005; U0003 ==

== ENCOUNTER → 2021-05-01 11:30 | Outpatient (CLI) | payer MEDICAID, SELFPAY | PROVIDERS: PCP Family Medicine; Referring Provider Physician Assistant Surgical; Visit Provider Physician Assistant Surgical | DX: Z11.52 Encounter for screening for COVID-19 (principal) | CPT/HCPCS: 87635; U0005; U0003 ==

== ENCOUNTER 2021-05-22 10:23 | Emergency (ER) | payer MEDICAID, SELFPAY ==
[2021-05-22 10:24] VITALS: BP 127/88; PULSE 79; RESP 16; TEMP 36.4; BMI 24.1
--- NOTE | 2021-05-22 11:43 | EX.ED.VIS.UR ---
HPI HPI - URI History of Present Illness Chief Complaint: Cough Informant: patient Onset/Context/Timing Onset: Days (3) Context: Gradual Onset Timing: Continuous Quality: cough Current Severity: Moderate Maximum Severity: Moderate Worsened by: - (nothing) Relieved by: - (nothing) Associated Symptoms Associated Symptoms: Positive for Myalgias, Diarrhea and Nonproductive cough; Negative for Sinus Pressure, Nausea, Vomiting, Shortness of Breath, Chest Pain and Hemoptysis Narrative Narrative: URI sx, entire household has covid. she was vaccinated w/ J&J vaccine. healthy otherwise. no dyspnea or pleuritic cp. ROS ROS ED Constitutional Constitutional ED: Reports body ache(s), chills, fatigue, fever(s), headache(s) and malaise Eyes Eyes: Denies change in vision or diplopia ENT ENT ED: Denies rhinorrhea or sore throat Cardiovascular Cardiovascular: Denies chest pain or palpitations Respiratory/Chest Respiratory/Chest: Reports cough; Denies dyspnea or dyspnea on exertion Gastrointestinal Gastrointestinal: Reports diarrhea; Denies abdominal pain, nausea or vomiting Genitourinary Genitourinary ED: Denies dysuria or hematuria Musculoskeletal Musculoskeletal: Denies back pain or neck pain Integumentary Denies abscess or rash Neurologic Neurologic: Reports headache(s); Denies paresthesias or weakness Psychiatric Psychiatric: Denies anxiety or suicidal thoughts PFSH PFSH Medical History no medical history no medical history Home Medications NK 05/22/21 [History Last Taken Unknown] Allergy/AdvReac Type Severity Reaction Status Date / Time No Known Allergies Allergy Verified 05/22/21 10:27 Surgical History no surgical history Social History Smoking Status: Former smoker EXAM Physical Exam Const Vital Signs: 05/22/21 10:24 05/22/21 11:00 Temperature 97.5 F L Temperature Source Temporal Pulse Rate 79 Respiratory Rate 16 Respiratory Effort Normal Non-Labored Respiratory Depth Normal Respiratory Pattern Normal Blood Pressure 127/88 H Blood Pressure Mean 101 Positive well nourished and well developed Constitutional Narrative: Well-appearing, no distress, conversive in full sentences. General Appearance ED: well developed and NAD HEENT Reports moist mucous membranes normocephalic and atraumatic Eyes PERRL and EOMs intact bilaterally Neck full ROM and supple Resp normal respiratory effort and clear to auscultation bilaterally Cardio regular rate, regular rhythm and no murmurs Rate: Negative for tachycardic GI non-tender and non-distended Auscultation: normoactive bowel sounds Palpation: soft Back/Spine no CVA tenderness General Back: other FROM Extremity normal to inspection and no calf tenderness General Extremety ED: Negative for edema, pulses abnormal or tenderness General Extremity: Negative for edema or pulses abnormal Neuro oriented x3, CN's II-XII intact bilaterally and no sensory deficits noted Sensorium / Orientation: awake and alert Motor Exam: strength 5/5 throughout Skin no rashes or lesions noted and no wounds MDM MDM MDM Narrative Medical decision making narrative: Rapid Covid is negative. Given her pretest probability being extremely high, I have performed a PCR send out and advised her to isolate as if she has it. Since her oxygenation is excellent as are the rest of her vital signs, she is not require any other tests or treatment at this time, given appropriate discharge instructions. Discharge Plan Triage Chief Complaint: Cough ED Provider: Nicolas Jay Dx/Rx/DC Orders Clinical Impression: Viral syndrome, Suspected COVID-19 virus infection Instructions: Coronavirus Disease 2019 (COVID-19): Caring for Yourself or Others Prescriptions: No Action NK RF: 0 Primary Care Provider: David Mckinney Referrals: David Mckinney MD [Primary Care Provider] - As Needed Activity Restrictions/Additional Instructions: Try to get a home portable pulse oximeter and closely watch your oxygen levels periodically. If you stay below 90% for more than a minute or so, and/or you are feeling like your breathing is getting worse, return to the emergency department for further evaluation. Disposition Disposition: Home, Self Care
[2021-05-22 12:24] VITALS: PULSE 82; O2SAT 100
== END 2021-05-22 12:29 | disposition home or self-care (01) ==
PROVIDERS: Emergency Provider Emergency Medicine; PCP Family Medicine
DX: B34.9 Viral infection, unspecified (principal); Z20.822 Contact with and (suspected) exposure to COVID-19; Z87.891 Personal history of nicotine dependence; R19.7 Diarrhea, unspecified; R05.9 Cough, unspecified; M79.10 Myalgia, unspecified site
CPT/HCPCS: 87426; 87635; 99282; U0005; U0003

== ENCOUNTER → 2021-06-07 15:14 | Outpatient (CLI) | payer MEDICAID, SELFPAY ==
[2021-06-12 20:07] LABS: Chlamydia By Nucleic Acid AMP Positive (Negative)
[2021-06-13 07:49] LABS: Gonococcus By Nucleic Acid AMP Negative (Negative)
[2021-06-15 09:05] LABS: HPV APTIMA, High Risk Negative (Negative)
[2021-06-15 09:51] LABS: HPV Reflexed? YES, CHARGE PATIENT
== END ==
PROVIDERS: PCP Family Medicine; Visit Provider Obstetrics & Gynecology
DX: Z12.4 Encounter for screening for malignant neoplasm of cervix (principal); Z11.3 Encounter for screening for infections with a predominantly sexual mode of transmission
CPT/HCPCS: 87491; 87591; 87624; 88175; G0145

== ENCOUNTER 2021-07-05 13:43 | Outpatient (CLI) | payer MEDICAID, SELFPAY ==
[2021-07-05 15:17] LABS: hCG Titer Quant., Serum 4587 mIU/mL (1-3)
[2021-07-09 15:07] LABS: Chlamydia By Nucleic Acid AMP Negative (Negative)
[2021-07-09 16:08] LABS: Gonococcus By Nucleic Acid AMP Negative (Negative)
== END 2021-07-05 23:59 | disposition short-term general hospital (02) ==
LOC: WOBLAB 13:44
PROVIDERS: PCP Family Medicine; Visit Provider Obstetrics & Gynecology
DX: Z34.81 Encounter for supervision of other normal pregnancy, first trimester (principal); Z11.3 Encounter for screening for infections with a predominantly sexual mode of transmission
CPT/HCPCS: 36415; 84702; 87491; 87591

== ENCOUNTER 2021-07-09 15:41 | Outpatient (CLI) | payer MEDICAID, SELFPAY ==
[2021-07-09 17:00] LABS: hCG Titer Quant., Serum 13377 mIU/mL (1-3)
== END 2021-07-09 23:59 | disposition short-term general hospital (02) ==
LOC: WOBLAB 15:42
PROVIDERS: PCP Family Medicine; Visit Provider Obstetrics & Gynecology
DX: Z34.81 Encounter for supervision of other normal pregnancy, first trimester (principal)
CPT/HCPCS: 36415; 84702

== ENCOUNTER 2021-08-01 09:30 | Outpatient (CLI) | payer MEDICAID, SELFPAY ==
[2021-08-01 10:34] LABS: Absolute Lymphocyte Count 1.99 X10^3/uL (0.83-4.51); Absolute Neutrophil Count 4.4 X10^3/uL (2.0-7.7); Basophil# 0.03 X10^3/uL; Basophil% 0.4 % (0-1); Eosinophil# 0.32 X10^3/uL; Eosinophils% 4.4 % (0-5); Hematocrit 36.4 % (37-47); Hemoglobin 12.2 g/dL (12.0-15.0); Lymphocyte # 1.99 X10^3/ul (0.83-4.51); Lymphocyte % 27.6 % (19-41); Mean Corp Hgb Conc 33.5 g/dL (32-36); Mean Corpuscular Volume 80.5 fL (81-99); Mean Platelet Vol. 11.8 fl (6.2-12.0); Monocyte# 0.47 X10^3/uL; Monocyte% 6.5 % (0-10); NRBC Flagged by Analyzer 0 % (0-5); Neutrophil # 4.36 X10^3/uL (2.7-7.7); Neutrophil % 60.7 % (47-70); Platelet Count 208 K/mm3 (150-450); RBC Distribution Width CV 16.2 % (11.6-14.6); RBC Distribution Width SD 47.8 fl (35.1-43.9); Red Blood Count 4.52 M/mm3 (4.2-5.4); White Blood Count 7.2 K/mm3 (4.4-11.0)
[2021-08-01 10:37] LABS: Color, Urine Yellow (Yellow); Glucose, Dipstick Normal (Normal); Ketone-Dipstick Negative (Negative); Leukocyte Esterase-Dipstick 100 /ul (Negative); Nitrite-Dipstick Negative (Negative); Occult Blood-Urine Negative /ul (Negative); Protein-Dipstick Negative (Negative); Specific Gravity, Urine 1.015 (1.002-1.030); Urine Bilirubin Dipstick Negative (Negative); Urine Clarity Sl. Cloudy (Clear); Urine Urobilinogen Normal (Normal)
[2021-08-01 10:58] LABS: Amphetamine Urine VISTA NEGATIVE (<1000 ng/mL); Barbiturate Urine VISTA NEGATIVE (< 200 ng/mL); Benzodiazepine Urine VISTA NEGATIVE (< 200 ng/mL); Cocaine Urine VISTA NEGATIVE (< 300 ng/mL); Ecstacy Urine VISTA NEGATIVE (< 500 ng/mL); Methadone Urine VISTA NEGATIVE (< 300 ng/mL); PCP Urine VISTA NEGATIVE (< 25 ng/mL); THC Urine VISTA NEGATIVE (< 50 ng/mL); Vista UDS pH Range 7
[2021-08-01 11:47] LABS: HIV - WCH Non-Reactive (Nonreactive); Hepatitis B Surface Antigen Non-Reactive (Nonreactive); Hepatitis C Antibody Non-Reactive (Nonreactive); Rubella IgG Reactive (Nonreactive); Syphilis Antibodies Non-reactive
[2021-08-01 12:09] LABS: Thyroid Stim Hormone (TSH) 0.43 uIU/mL (0.358-3.74)
== END 2021-08-01 23:59 | disposition home or self-care (01) ==
LOC: WOBLAB 09:31
PROVIDERS: PCP Family Medicine; Visit Provider Obstetrics & Gynecology
DX: Z34.81 Encounter for supervision of other normal pregnancy, first trimester (principal)
CPT/HCPCS: 36415; 80307; 81002; 84443; 85025; 86703; 86762; 86780; 86803; 87086; 87088; 87340

== ENCOUNTER 2021-09-13 11:19 | Emergency (ER) | payer MEDICAID, SELFPAY ==
[2021-09-13 11:20] VITALS: BP 133/94; PULSE 84; RESP 16; TEMP 36.7; O2SAT 100; BMI 27.3
--- NOTE | 2021-09-13 11:43 | EX.ED.DYSGE1 ---
HPI History of Present Illness Chief Complaint: General Illness Informant: patient Onset/Context/Timing Onset: Today Current Severity: Mild Maximum Severity: Mild Narrative Narrative: 25-year-old female no seen past medical history. Currently is 15 weeks . In her HOME VISITS NURSE's office they did a ultrasounds several weeks ago and it did show an intrauterine . She has had no vaginal bleeding. She has been feeling well. Today while at work while standing she felt weak. Said she kind of felt like she might pass out but did not. She got nauseated and diaphoretic. No LOC. No abdominal pain. No dysuria. No recent illness. No vomiting, diarrhea, fever or dysuria. Prior similar symptoms: Yes Recent Illness/Hospitalization: No PFSH PFSH Medical History Encounter for screening for COVID-19 Home Medications [id number] [ + Iron] tab PO 09/13/21 [History Last Taken Unknown] Allergy/AdvReac Type Severity Reaction Status Date / Time No Known Allergies Allergy Verified 09/13/21 11:22 Social History Smoking Status: Former smoker ROS ROS ED ROS Narrative Nausea. Review of Systems ROS Unobtainable: Denies due to encephalopathy Constitutional Constitutional ED: Denies fever(s) Eyes Eyes: Denies change in vision ENT ENT ED: Denies ear pain Cardiovascular Cardiovascular: Denies chest pain Respiratory/Chest Respiratory/Chest: Denies dyspnea Gastrointestinal Gastrointestinal: Reports nausea; Denies abdominal pain, constipation, diarrhea, melena or vomiting Genitourinary Genitourinary ED: Denies dysuria Musculoskeletal Musculoskeletal: Denies myalgias Integumentary Denies rash Neurologic Neurologic: Denies headache(s) Psychiatric Psychiatric: Denies depression Endocrine Endocrinology: Denies polyuria Allergic/Immunologic Allergic/Immunologic ED: Denies urticaria EXAM Physical Exam Narrative Exam Narrative: 25-year-old male no acute distress. Vital signs are stable and afebrile. Patient does not look septic toxic or in distress. H EENT exam unremarkable. Neck nontender. Lungs clear to auscultation. Heart regular rhythm no murmur. Rate about 80. Abdomen soft nondistended normal bowel sounds no peritoneal signs. Completely nontender. Moving all 4 extremities. Calves are nontender without edema or cords. Neurologically she is awake alert with no focal motor deficits. NIH is 0. Const Vital Signs: 09/13/21 11:20 09/13/21 11:52 09/13/21 12:02 Temperature 98.0 F Temperature Source Temporal Pulse Rate 84 Pulse Rate [Lying] 75 Pulse Rate [Sitting (for 1 minute prior to obtaining)] 73 Pulse Rate [Standing (for 1 minute prior to obtaining)] 73 Respiratory Rate 16 Respiratory Effort Normal Non-Labored Respiratory Pattern Normal Blood Pressure 133/94 H Blood Pressure [Lying] 109/65 Blood Pressure [Sitting (for 1 minute prior to obtaining)] 114/78 Blood Pressure [Standing (for 1 minute prior to obtaining)] 110/82 H Blood Pressure Mean 107 Blood Pressure Mean [Lying] 79 Blood Pressure Mean [Sitting (for 1 minute prior to obtaining)] 90 Blood Pressure Mean [Standing (for 1 minute prior to obtaining)] 91 Pulse Ox 100 Oxygen Delivery Method Room Air 09/13/21 14:29 Temperature Temperature Source Pulse Rate 76 Pulse Rate [Lying] Pulse Rate [Sitting (for 1 minute prior to obtaining)] Pulse Rate [Standing (for 1 minute prior to obtaining)] Respiratory Rate 15 Respiratory Effort Respiratory Pattern Blood Pressure 109/74 Blood Pressure [Lying] Blood Pressure [Sitting (for 1 minute prior to obtaining)] Blood Pressure [Standing (for 1 minute prior to obtaining)] Blood Pressure Mean 85 Blood Pressure Mean [Lying] Blood Pressure Mean [Sitting (for 1 minute prior to obtaining)] Blood Pressure Mean [Standing (for 1 minute prior to obtaining)] Pulse Ox 98 Oxygen Delivery Method Room Air Positive well nourished and well developed; Negative for obese, cachectic, contractures or unkempt General Appearance ED: well developed and NAD; Negative for unkempt, cachectic, contractures, cyanotic or diaphoretic Nutritional Appearance: Negative for cachectic or obese HEENT Reports moist mucous membranes Negative for trauma or tenderness Eyes PERRL and EOMs intact bilaterally Neck no lymphadenopathy, supple and no JVD General: Negative for tenderness Chest Wall inspection of chest normal and palpation of chest normal Resp normal respiratory effort and clear to auscultation bilaterally Effort and Inspection: Negative for pain with movement Auscultation: Negative for rales, rhonchi or wheezes Cardio regular rate, regular rhythm, S1 normal heart sound, S2 normal heart sound and no murmurs GI normal to inspection, nondistended, normoactive bowel sounds, non-tender, non-distended and no masses Inspection: Negative for abdominal distention Auscultation: normoactive bowel sounds Palpation: soft; Negative for tender, guarding or rebound tenderness present Back/Spine no CVA tenderness General Back: Negative for CVA tenderness Cervical Spine: Negative for cervical spine tenderness Thoracic Spine / Upper Back: Negative for thoracic spinal tenderness Extremity normal to inspection General Extremety ED: Negative for edema or tenderness General Extremity: Negative for edema Neuro oriented x3 and CN's II-XII intact bilaterally Sensorium / Orientation: alert; Negative for lethargic or stuporous Motor Exam: strength 5/5 throughout Psych mental status grossly normal Appearance: Negative for unkempt Mood & Affect: Negative for depressed or tearful Skin no rashes or lesions noted and No no wounds General Skin Exam: Negative for jaundice MDM MDM MDM Narrative Medical decision making narrative: 25-year-old female 15 weeks had a near syncopal episode exam is completely benign at this time. Screening labs are being obtained and orthostatic vital signs. Repeat exam patient is doing well at 2:30 PM to be discharged home. Orthostatic vital signs were negative per nursing. Lab Data Attestation: I reviewed the patient's lab results. Lab results narrative: CBC shows a white count 8. H&H 11.6 and 35.6. Electrolytes unremarkable gap of 3 normal BUN 8 creatinine 0.5. Glucose 78. Labs: Laboratory Results - last 24 hr 09/13/21 09/13/21 12:00 12:00 WBC 8.3 RBC 4.28 Hgb 11.6 L Hct 35.6 L MCV 83.2 MCH 27.1 MCHC 32.6 RDW Std Deviation 47.2 H RDW Coeff of Joe 15.8 H Plt Count 190 MPV 10.7 Immature Gran % (Auto) 0.600 Neut % (Auto) 67.2 Lymph % (Auto) 21.8 [place] % (Auto) 6.1 Eos % (Auto) 3.9 Baso % (Auto) 0.4 Absolute Neuts (auto) 5.6 Absolute Lymphs (auto) 1.80 Nucleated RBC % 0 Sodium 136 Potassium 4.0 Chloride 107 Carbon Dioxide 26.0 Anion Gap 3 L BUN 8 Creatinine 0.55 Estim Creat Clear Calc 141.92 Est GFR (MDRD) Af Amer 174 Est GFR (MDRD) Non-Af 144 BUN/Creatinine Ratio 14.5 Glucose 78 Calcium 8.9 Discharge Plan Triage Chief Complaint: General Illness ED Provider: Piter Bertrand Dx/Rx/DC Orders Clinical Impression: Near syncope, Second trimester Instructions: ED Near-Fainting, Uncertain Cause Prescriptions: No Action + Iron 1 mg Tablet PO RF: 0 Primary Care Provider: David Mckinney Referrals: David Mckinney MD [Primary Care Provider] - As Needed Gonzalo Dotson MD [STAFF PHYSICIAN] - As Needed Activity Restrictions/Additional Instructions: Plenty of fluids and rest. Follow-up with your HOME VISITS NURSE or primary care physician as needed. Disposition Disposition: Home, Self Care
[2021-09-13 12:02] VITALS: BP 109/65; BP 110/82; BP 114/78; PULSE 73; PULSE 75
[2021-09-13 12:12] LABS: Absolute Neutrophil Count 5.6 X10^3/uL (2.0-7.7); Basophil# 0.03 X10^3/uL; Basophil% 0.4 % (0-1); Eosinophil# 0.32 X10^3/uL; Eosinophils% 3.9 % (0-5); Hematocrit 35.6 % (37-47); Hemoglobin 11.6 g/dL (12.0-15.0); Lymphocyte % 21.8 % (19-41); Mean Corp Hgb Conc 32.6 g/dL (32-36); Mean Corpuscular Hgb 27.1 pg (27.0-32.0); Mean Corpuscular Volume 83.2 fL (81-99); Mean Platelet Vol. 10.7 fl (6.2-12.0); Monocyte% 6.1 % (0-10); NRBC Flagged by Analyzer 0 % (0-5); Neutrophil # 5.56 X10^3/uL (2.7-7.7); Neutrophil % 67.2 % (47-70); Platelet Count 190 K/mm3 (150-450); RBC Distribution Width CV 15.8 % (11.6-14.6); RBC Distribution Width SD 47.2 fl (35.1-43.9); Red Blood Count 4.28 M/mm3 (4.2-5.4); White Blood Count 8.3 K/mm3 (4.4-11.0)
[2021-09-13 12:29] LABS: Anion Gap 3 (5-15); BUN 8 mg/dL (7-18); BUN/Creat Ratio 14.5 RATIO (10-20); Calcium,Total 8.9 mg/dL (8.5-10.1); Chloride 107 mmol/L (98-107); Creatinine, Serum 0.55 mg/dL (0.55-1.02); EST Glomerular Filtration Rate 144 mL/min (>60); Est Glom Filt Rate - Afr Amer 174 mL/min (>60); Estimated Creatinine Clearance 141.92 ml/min; Glucose 78 mg/dL (74-106); Sodium Level 136 mmol/L (136-145)
[2021-09-13 14:29] VITALS: BP 109/74; PULSE 76; RESP 15; O2SAT 98
[2021-09-13 14:46] VITALS: PULSE 68; RESP 16; O2SAT 98
== END 2021-09-13 14:47 | disposition home or self-care (01) ==
PROVIDERS: Emergency Provider Emergency Medicine; PCP Family Medicine; Visit Provider Emergency Medicine
DX: O99.891 Other specified diseases and conditions complicating pregnancy (principal); R55 Syncope and collapse; R11.0 Nausea; Z3A.15 15 weeks gestation of pregnancy; Z87.891 Personal history of nicotine dependence
CPT/HCPCS: 80048; 85025; 99285

== ENCOUNTER 2021-11-03 21:05 | Outpatient (CLI) | payer MEDICAID, SELFPAY ==
[2021-11-03 21:23] VITALS: PULSE 95; O2SAT 98
[2021-11-03 21:27] VITALS: BMI 29.9
[2021-11-03 21:28] VITALS: PULSE 101; O2SAT 97
[2021-11-03 21:33] VITALS: BP 132/81; PULSE 99
[2021-11-03 22:29] LABS: Absolute Lymphocyte Count 2.51 X10^3/uL (0.83-4.51); Basophil# 0.03 X10^3/uL; Basophil% 0.3 % (0-1); Eosinophil# 0.18 X10^3/uL; Eosinophils% 1.6 % (0-5); Hematocrit 31.2 % (37-47); Hemoglobin 9.8 g/dL (12.0-15.0); Lymphocyte # 2.51 X10^3/ul (0.83-4.51); Lymphocyte % 22.1 % (19-41); Mean Corp Hgb Conc 31.4 g/dL (32-36); Mean Corpuscular Hgb 26.6 pg (27.0-32.0); Mean Corpuscular Volume 84.8 fL (81-99); Mean Platelet Vol. 11.3 fl (6.2-12.0); Monocyte# 0.61 X10^3/uL; Monocyte% 5.4 % (0-10); NRBC Flagged by Analyzer 0 % (0-5); Neutrophil # 7.96 X10^3/uL (2.7-7.7); Neutrophil % 69.8 % (47-70); Platelet Count 185 K/mm3 (150-450); RBC Distribution Width CV 14.8 % (11.6-14.6); RBC Distribution Width SD 45.6 fl (35.1-43.9); Red Blood Count 3.68 M/mm3 (4.2-5.4); White Blood Count 11.4 K/mm3 (4.4-11.0)
--- NOTE | 2021-11-03 23:08 | US_ITS ---
EXAM: US , LIMITED CLINICAL INDICATION: bleeding, hx of abruption. addie 03/05/22 -- Pls do transvaginal cervical length also.; TECHNIQUE: Real-time limited ultrasound of the maternal uterus with image documentation. This report was created using [employer] report generation technology. COMPARISON: None. FINDINGS: FETUS: Single live intrauterine fetus, cephalic presentation. measurements are symmetric and consistent with 23 weeks 2 days sonographically. HEART RATE: heart rate 158 bpm. PLACENTA: Anterior placenta, not low lying, no evidence of abruption or obvious marginal hemorrhage. 2 small anechoic foci deep in the placenta are not convincing for hemorrhage or abruption.Mildly lobulated contour of the placenta. AMNIOTIC FLUID: Adequate amniotic fluid volume. Largest amniotic fluid pocket 6 cm. CERVIX: The cervix measures 3.2 cm in length on the transabdominal exam with adjacent head, no overlying placenta. IMPRESSION: 1. No acute complications of identified. Single live IUP with symmetric measurements and adequate amniotic fluid volume. 2. No convincing retroplacental hemorrhage, marginal hemorrhage or placental abruption. Mildly lobulated contour of the placenta without significant calcifications. No previa. Electronically Signed: Delmis Watts MD at 2:15 EDT , EXAM: US , TRANSVAGINAL, LIMITED CLINICAL INDICATION: bleeding, hx of abruption. addie 03/05/22 -- Pls do transvaginal cervical length also.; TECHNIQUE: Real-time transvaginal obstetrical ultrasound of the maternal pelvis and a first trimester with image documentation. Transvaginal imaging was used for better evaluation of the fetus and adnexa. This report was created using [employer] report generation technology. CERVIX: Transvaginal images sent as a separate study. The cervix is closed and measures 3.8 cm and 3.4 cm in length. No placenta or hemorrhage over the cervix. Adjacent head. US/OB Limited With Biometrics IMPRESSION: Normal length of closed cervix. Electronically Signed: Delmis Watts MD at 2:17 EDT ,
[2021-11-03 23:09] LABS: International Normalized Ratio 1.1; Prothrombin Time (Protime)PT. 13.4 SECONDS (11.7-14.9)
--- NOTE | 2021-11-03 23:22 | OB.TRI.NOTE ---
HPI - General HPI Narrative NAE HOANG, is a 25 F who presents at 22 4/7 weeks gestation with c/o vaginal bleeding. She reports walking a lot today and when she went to the bathroom this evening she had bright red blood on tissue after wiping. Denies abdominal trauma, falls, constipation. Last intercourse > 24 hours ago. She has a history of 26w IUFD due to placental abruption. Maternal Data Information JANE Calculator Estimated Delivery Date Method Current WG Current Estimate 03/05/22 Ultrasound #1 22w 4d PFSH PFS Medical History (Updated 11/03/21 @ 23:[address] Kimberly Alejandre MD) Anxiety Cervical myofascial strain Encounter for screening for COVID-19 (spontaneous vaginal delivery) Home Medications rvqcprcj-tha-Ho-FA [ + Iron] 1 tab PO DAILY 09/13/21 [History Last Taken Unknown] Allergy/AdvReac Type Severity Reaction Status Date / Time No Known Allergies Allergy Verified 11/03/21 21:26 Social History (Updated 11/03/21 @ 23:[address] 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 : 1995 Age: 25 Address: [address] [place] [address] Phone: H) [phone] [facility] [place] [facility] [place] [id number] Emergency Contact: REBEKAH HURD [phone] ...................................................................... Final JANE: 03/05/22 By Ultrasound: 9 weeks 1 day PARITY: (G-Total Pregnancies P-Fullterm,Premature,Induced AB,Spont AB, Ectopics, Multiple,Living) JANE CONFIRMATION: By LMP: 06/02/21 Initial Exam: 03/09/22 By First Ultrasound Exam: 03/05/22 Final JANE: 03/05/22 OB PROBLEM LIST: Genetic testing declined. No meth x 6 months- continues w classes through 180. Closely spaced pregnancies LSIL on PAP--check colposcopy 8-12 weeks gestation ALLERGIES: No Known Allergies MEDICATIONS: 28 mg iron-800 mcg tablet One pill by mouth once a day promethazine 12.5 mg tablet one tab every 3 hours PRN for nausea SOCIAL HISTORY: Smoking - used to smoke but quit Alcohol Use - None Diet - balanced Diet, Occ tea and Water intake 3-4 bottles daily. Lifestyle - moderate stress lifestyle and single Exercise - active w home and family. Does yoga. 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 Rehab. No meth x 6 mo. Sexual Activity - did not discuss sexual history Residence - She and Rocky and two kids live w her mother. Place of - [place], [place] Spouse-Sig Other Name - Rocky Spouse-Sig Other Occupation - unemployed Spouse-Sig Other Phone No - [phone] Children Name(s) - Judith '17, Radha ('19) PRIOR DELIVERY HISTORY DEL DATE GEST LAB WT LB WT OZ TYPE ANES LABOR TX 20 Aug 17 41 18 8 13 Vag Epidural No Jan 09 26 3 1 14 Vag Epidural No November 08 39 13 8 2 Vag Epidural No ANTEPARTUM FLOW CHART VISIT GE RTC FU F F WI U U DATE WK MD WKS HT PN HR M SS BP ED WT WI GL D EF ST __ ____ ___ __ __ ___ __ __ __ ___ __ __ __ ___ __ Oct 10 JMW 4 20 + + 100/70 0 178 - - 16 Sep 03 JMW 5 14 + 122/62 0 169 tr ne Aug 01 JM 4 U+ 114/84 0 169 ne ne ANTEPARTUM NOTE(S): Oct 17 2021: US OK Sep 05 2021: No complaints voiced at this time, Declines AFP Aug 01 2021: Nausea at times COMPREHENSIVE ANTEPARTUM NOTE(S): Oct 17 2021: Nae and her mom are here for US at 20.1 w and visit. Feeling well. Baby starting to move most days. Excited about US photos and gender- male. No particular concerns today. MIKE. Aug 01 2021: NOB NURSE VISIT-- Nae and Rocky VILLASENOR are here for NOB nurse visit and consents. Nae is a 25 yo G 4 P 3 with a 26 week stillborn son. She has two girls at home ages 2 and 4 y. They live with her mother. She plans a vag del at [facility] w epidural using Dr David Mckinney for post disch ped care and is undecided about feeding method but leaning to . Nae has NKAD or latex. She quit Jul 05 2021: Nae presents here today with her (Mother) for Missed Menses appointment. 25 y.o. G 4 P 2 non-smoker with regular menses and LMP of 12-11-21 lasting her average of 4-5 days. UPT is positive today in our Office. Presents at 4 weeks 5 days with an approximate JANE of 03-09-22. Previous 's at [facility]. Has not started an OTC Vitamin yet, but plans to start one soon. Medication and Allergy Jul 05 2021: ok Jun 07 2021: Nae presents here today for concerns regarding having an STI check due to being in [facility] and rehab for the last year, after the of her son, she admits she relapsed. 25 y.o. G 3 P 2 non-smoker and is using nothing for control, but seeing her father of her children periodically. Currently taking an anxiety/depression medication, but unsure of the name and will call with name of same REVIEW OF SYSTEMS: GENERAL - Denies fever, or chills SKIN - Denies rash, new skin lesions, or change in moles EYES - Denies blurred vision, or change in visual acuity EARS - Denies ear pain, or difficulty hearing NOSE - Denies nasal congestion, discharge, or bleeding MOUTH - Denies sore throat, or difficulty swallowing NECK - Denies pain or swelling RESPIRATORY - Denies shortness of breath, cough, wheezing CARDIOVASCULAR - Denies palpitations, chest pain, orthopnea, PND, peripheral edema, syncope or claudication GASTROINTESTINAL - Denies nausea, vomiting, diarrhea, constipation, Denies abdominal pain, melena and or bright red blood GENITOURINARY - Denies dysuria, frequency of urination, urgency, or hesitancy MUSCULOSKELETAL - Denies joint or muscle pain, or back pain NEUROLOGICAL - Denies localized numbness, weakness, or tingling PSYCHIATRIC - Denies depression, anxiety, substance abuse or suicide attempts ENDOCRINE - Denies heat or cold intolerance, weight loss or gain, increasing thirst HEMATO-IMMUNOLOGIC - Denies easy bruising, bleeding, oral ulcerations or recurrent infections GENETICS SCREENING: Age 35+ years: No Thalassemia: No Neural Tube Defect: No Down Syndrome: No VIVIANA-SACHS: No Sickle Cell Disease: No Hemophilia: No Musc. Dystrophy: No Cystic Fibrosis: No-declines screening [place] Chorea: No Mental Retardation: No Fragile X: No Other genetic: No Other defects: No SABs/still births: Yes x1 Drugs since LMP: Yes INFECTION HISTORY: High risk AIDS: No High risk Hepatitis: No Exposed to TB: No Exposed to Herpes: No Rash/viral illness since LMP: No History of STD: No Comments: Recent Chlamydia treatment- May 2021. MENSTRUAL HISTORY: *Menses Amount/Duration: 4 daysMenses Regularity: RegularFrequency: monthlyMenarche (Age Onset): 12* LAB TEST(S) ORDERED SINCE:06/08/21 06/15/2021 PAP IG W/REFLEX HR HPV APTIMA 06/13/2021 CHLAMYDIA/GC OFELIA APTIMA 11/03/2021 PROTHROMBIN TIME W/INR 11/03/2021 PARTIAL THROMBOPLAST TIME 11/03/2021 CBC W/DIFF, AUTOMATED 08/02/2021 URINE CULTURE 08/01/2021 URINE DRUG SCREEN (VISTA) 08/01/2021 URINALYSIS, ROUTINE (DIPSTICK) 08/01/2021 THYROID STIM HORMONE (TSH) 08/01/2021 RUBELLA IGG 08/01/2021 T AND S-NO CHARGE W/PNP 08/01/2021 L509.8000 08/01/2021 HIV - [facility] 08/01/2021 HEPATITIS C ANTIBODY 08/01/2021 HEPATITIS B SURFACE ANTIGEN 08/01/2021 CBC W/DIFF, AUTOMATED 07/09/2021 HCG TITER QUANT., SERUM 07/09/2021 CHLAMYDIA/GC OFELIA APTIMA 07/05/2021 HCG TITER QUANT., SERUM == ==== Order Observation Description Value Ref_Range A* Site == ==== PARTIAL THROMBO NOTE [facility] PARTIAL THROMBO PTT 27.0 Seconds 24.1-36.2 ML PROTHROMBIN FABIAN NOTE [facility] PROTHROMBIN FABIAN PROTIME 13.4 SECONDS 11.7-14.9 ML PROTHROMBIN FABIAN INR 1.1 ML CBC W/DIFF, AUT NOTE [facility] CBC W/DIFF, AUT WBC 11.4 K/mm3 4.4-11.0 H ML CBC W/DIFF, AUT RBC 3.68 M/mm3 4.2-5.4 L ML CBC W/DIFF, AUT HGB 9.8 g/dL 12.0-15.0 L ML CBC W/DIFF, AUT HCT 31.2 37-47 L ML CBC W/DIFF, AUT MCV 84.8 fL 81-99 ML CBC W/DIFF, AUT MCH 26.6 pg 27.0-32.0 L ML CBC W/DIFF, AUT MCHC 31.4 g/dL 32-36 L ML CBC W/DIFF, AUT RDW CV 14.8 11.6-14.6 H ML CBC W/DIFF, AUT RDW SD 45.6 fl 35.1-43.9 H ML CBC W/DIFF, AUT PLT 185 K/mm3 150-450 ML CBC W/DIFF, AUT MPV 11.3 fl 6.2-12.0 ML CBC W/DIFF, AUT NEUT% 69.8 47-70 ML CBC W/DIFF, AUT LY% 22.1 19-41 ML CBC W/DIFF, AUT MONO% 5.4 0-10 ML CBC W/DIFF, AUT EO% 1.6 0-5 ML CBC W/DIFF, AUT BASO% 0.3 0-1 ML CBC W/DIFF, AUT IG% 0.800 0.0-0.9 ML IG% - Immature Granulocytes (promyelocytes, myelocytes and metamyelocytes) > 1% indicates that a LEFT SHIFT is Present. CBC W/DIFF, AUT ABSOLUTE NEUT 8.0 X10 3/uL 2.0-7.7 H ML CBC W/DIFF, AUT ABSOLUTE LYMPH 2.51 X10 3/uL 0.83-4.51 ML CBC W/DIFF, AUT NUCLEATED RBC 0 0-5 ML URINE CULTURE NOTE [facility] PN N [facility]~[address] [place], [address]~ T AND AB SCREEN GEL NEGATIVE ML THYROID STIM HO NOTE [facility] THYROID STIM HO TSH 0.43 uIU/mL 0.358-3.74 ML HEPATITIS C ANT NOTE [facility] HEPATITIS C ANT HEPATITIS C AB Non-Reactive Nonreactive ML Non Reactive: < 0.8 Equivocal: >/= 0.8 to < 1.0 Reactive: >/= 1.0 The CDC recommends that a reactive/equivocal HCV antibody result be followed up by the HCV Nucleic Acid Amplification test (580960) HEPATITIS B HERBERT NOTE HERNANDEZ HEPATITIS B HERBERT HEP B SURF AG Non-Reactive Nonreactive ML HIV - [facility] NOTE HERNANDEZ HIV - [facility] HIV Non-Reactive Nonreactive ML L509.8000 NOTE HERNAN[facility]Z L509.8000 SYPHILIS ABS Non-reactive ML RUBELLA IGG NOTE HERNAN[facility]Z RUBELLA IGG RUBELLA IGG Reactive Nonreactive ML Antibody Results Interpretation of Immune Status Non Reactive Presumed Non-Immune Equivocal Equivocal Reactive Presumed Immune URINE DRUG SCRE NOTE HERNANDEZ URINE DRUG SCRE VISTA UDS PH 7 ML URINE DRUG SCRE AMPHETAMINES NEGATIVE <1000 ng/mL ML URINE DRUG SCRE BARBITIURATES NEGATIVE < 200 ng/mL ML URINE DRUG SCRE BENZODIAZIPINE NEGATIVE < 200 ng/mL ML URINE DRUG SCRE COCAINE NEGATIVE < 300 ng/mL ML URINE DRUG SCRE ECSTACY NEGATIVE < 500 ng/mL ML URINE DRUG SCRE METHADONE NEGATIVE < 300 ng/mL ML URINE DRUG SCRE OPIATES NEGATIVE < 300 ng/mL ML URINE DRUG SCRE PCP NEGATIVE < 25 ng/mL ML URINE DRUG SCRE THC NEGATIVE < 50 ng/mL ML URINALYSIS, ROU NOTE HERNAN[facility]Z URINALYSIS, ROU COLOR Yellow Yellow ML URINALYSIS, ROU URINE CLARITY Sl. Cloudy Clear ML URINALYSIS, ROU GLUCOSE, UR Normal mg/dl Normal ML URINALYSIS, ROU BILIRUBIN URINE Negative mg/dL Negative ML URINALYSIS, ROU KETONE UR Negative mg/dl Negative ML URINALYSIS, ROU SP.GR. DIPSTX 1.015 1.002-1.030 ML URINALYSIS, ROU PH UR 8.0 5.0 - 8.0 ML URINALYSIS, ROU PROT DIPSTX Negative mg/dl Negative ML URINALYSIS, ROU UROBILI Normal mg/dl Normal ML URINALYSIS, ROU NITRITE Negative Negative ML URINALYSIS, ROU OCCULT BLOOD-UR Negative /ul Negative ML URINALYSIS, ROU LEUK ESTERASE 100 /ul Negative A ML CBC W/DIFF, AUT NOTE HERNANDEZ CBC W/DIFF, AUT WBC 7.2 K/mm3 4.4-11.0 ML CBC W/DIFF, AUT RBC 4.52 M/mm3 4.2-5.4 ML CBC W/DIFF, AUT HGB 12.2 g/dL 12.0-15.0 ML CBC W/DIFF, AUT HCT 36.4 37-47 L ML CBC W/DIFF, AUT MCV 80.5 fL 81-99 L ML CBC W/DIFF, AUT MCH 27.0 pg 27.0-32.0 ML CBC W/DIFF, AUT MCHC 33.5 g/dL 32-36 ML CBC W/DIFF, AUT RDW CV 16.2 11.6-14.6 H ML CBC W/DIFF, AUT RDW SD 47.8 fl 35.1-43.9 H ML CBC W/DIFF, AUT PLT 208 K/mm3 150-450 ML CBC W/DIFF, AUT MPV 11.8 fl 6.2-12.0 ML CBC W/DIFF, AUT NEUT% 60.7 47-70 ML CBC W/DIFF, AUT LY% 27.6 19-41 ML CBC W/DIFF, AUT MONO% 6.5 0-10 ML CBC W/DIFF, AUT EO% 4.4 0-5 ML CBC W/DIFF, AUT BASO% 0.4 0-1 ML CBC W/DIFF, AUT IG% 0.400 0.0-0.9 ML IG% - Immature Granulocytes (promyelocytes, myelocytes and metamyelocytes) > 1% indicates that a LEFT SHIFT is Present. CBC W/DIFF, AUT ABSOLUTE NEUT 4.4 X10 3/uL 2.0-7.7 ML CBC W/DIFF, AUT ABSOLUTE LYMPH 1.99 X10 3/uL 0.83-4.51 ML CBC W/DIFF, AUT NUCLEATED RBC 0 0-5 ML HCG TITER QUANT NOTE HERNANDEZ HCG TITER QUANT HCG QUANT. 06290 mIU/mL 1-3 H ML hCG levels with Gestational Age Gestational Age hCG mIU/mL (IU/L) 0.2 - 1 week 5 - 50 1-2 weeks 50 - 500 2-3 weeks 100 - 5000 3-4 weeks 500 - 86398 4-5 weeks 1000 - 07587 5-6 weeks 81677 - 100,000 6-8 weeks 38188 - 200,000 2-3 months 30955 - 100,000 CHLAMYDIA/GC NA NOTE HERNANDEZ CHLAMYDIA/GC NA CHLAMY,NUC ACID Negative Negative LCI CHLAMYDIA/GC NA GC BY NUC ACID Negative Negative LCI Performed at: =[address] [id number] [place]: Autumn Cancino MD, Phone: [phone] HCG TITER QUANT NOTE HERNANDEZ HCG TITER QUANT HCG QUANT. 4587 mIU/mL 1-3 H ML hCG levels with Gestational Age Gestational Age hCG mIU/mL (IU/L) 0.2 - 1 week 5 - 50 1-2 weeks 50 - 500 2-3 weeks 100 - 5000 3-4 weeks 500 - 97451 4-5 weeks 1000 - 73269 5-6 weeks 38888 - 100,000 6-8 weeks 98134 - 200,000 2-3 months 11052 - 100,000 PAP IG W/REFLEX NOTE HERNANDEZ PAP IG W/REFLEX DIAG Comment . A LCI EPITHELIAL CELL ABNORMALITY. LOW GRADE SQUAMOUS INTRAEPITHELIAL LESION (LSIL). PAP IG W/REFLEX ADEQ Comment . LCI Satisfactory for evaluation. Endocervical and/or squamous metaplastic cells (endocervical component) are present. PAP IG W/REFLEX PERFORM Comment . LCI Jose Alfredo Ewing, International Exchange Coordinator (ASCP) PAP IG W/REFLEX SIGN Comment . LCI Fátima Miles MD, Pathologist PAP IG W/REFLEX PATH.PROV.IDC-9 Comment . I R87.612 This liquid based ThinPrep(R) pap test was screened with the use of an image guided system. PAP IG W/REFLEX COMM . . LCI PAP IG W/REFLEX PAPSMR Comment . LCI The Pap smear is a screening test designed to aid in the detection of premalignant and malignant conditions of the uterine cervix. It is not a diagnostic procedure and should not be used as the sole means of detecting cervical cancer. Both false-positive and false-negative reports do occur. PAP IG W/REFLEX HPV RFLX Comment . LCI See below for HPV testing results. PAP IG W/REFLEX HPV APTIMA, HR Negative Negative LCI This nucleic acid amplification test detects fourteen high- risk HPV types (16,18,31,33,35,39,45,51,52,56,58,59,66,68) without differentiation. Performed at: [address], [place] [id number] [place]: Autumn Cancino MD, Phone: [phone] Performed at: =[address] [id number] [place]: Autumn Cancino MD, Phone: [phone] CHLAMYDIA/GC NA NOTE [facility] CHLAMYDIA/GC NA CHLAMY,NUC ACID Positive Negative A LCI CHLAMYDIA/GC NA GC BY NUC ACID Negative Negative LCI Performed at: =[address] [id number] [place]: Autumn Cancino MD, Phone: [phone] Mixed Gram Positive Organisms [place] Count 80,000-100,000 MIXC Mixed contaminants. Submit a new specimen if indicated. A POSITIVE History 4 Elective abortions 0 Hx Para 2 Spontaneous abortions 0 Hx # Term Pregnancies 2 Ectopic pregnancies 0 Hx # Pregnancies 1 Multiple births 0 # of living children 2 Past Pregnancies Del. Date Name GA/Weeks Outcome Route Bth Weight Gen Labor Lgth Anesthesia Del Locatn Provider FOB 02/09/17 [place] 41 live - full term [id number] Female 18 epidural [facility] Trey Alejandre 11/13/18 [place] 39 live - full term 8lb2oz Female 13 epidural [facility] Fanny KOWALSKI Constitutional Constitutional: Denies chills, fever(s), headache(s) or weakness Eyes Eyes: Denies change in vision Cardiovascular Cardiovascular: Denies abdominal pain, chest pain or dyspnea Gastrointestinal Gastrointestinal: Denies abdominal pain, constipation, cramping, diarrhea, nausea or vomiting Genitourinary Genitourinary: Denies burning urination, contractions, dysuria, urinary frequency or urinary urgency Physical Exam Const alert, oriented x3 and no apparent distress HEENT normocephalic Resp normal respiratory effort, normal air movement and clear to auscultation bilaterally Cardio regular rate and regular rhythm GI normal to inspection, nondistended, normoactive bowel sounds, soft to palpation, non-tender and non-distended GI Narrative: no suprapubic or bladder tenderness Inspection: gravid appearance of the vagina normal Speculum Exam - Cervix: cervical os closed OB / External & Speculum: bleeding and other no active bleeding with approximately 5 cc of blood with cervical mucus in the vaginal vault Extremity no calf tenderness and no pedal edema Assessment & Plan (1) 22 weeks gestation of : (2) Vaginal bleeding during , antepartum: PLAN: CBC with anemia Utox, coag pending Plan repeat CBC in am OB US to assess placentation further, cervical length, rule out partial placental abruption
[2021-11-03 23:31] VITALS: BP 127/72; PULSE 91
[2021-11-04 00:01] LABS: Amphetamine Urine VISTA NEGATIVE (<1000 ng/mL); Barbiturate Urine VISTA NEGATIVE (< 200 ng/mL); Benzodiazepine Urine VISTA NEGATIVE (< 200 ng/mL); Cocaine Urine VISTA NEGATIVE (< 300 ng/mL); Ecstacy Urine VISTA NEGATIVE (< 500 ng/mL); Methadone Urine VISTA NEGATIVE (< 300 ng/mL); PCP Urine VISTA NEGATIVE (< 25 ng/mL); THC Urine VISTA NEGATIVE (< 50 ng/mL); Vista UDS pH Range 5
[2021-11-04 04:22] VITALS: O2SAT 97
[2021-11-04 04:23] VITALS: BP 106/57; PULSE 83; TEMP 36.6
[2021-11-04 06:24] LABS: Absolute Lymphocyte Count 2.73 X10^3/uL (0.83-4.51); Absolute Neutrophil Count 5.5 X10^3/uL (2.0-7.7); Basophil# 0.04 X10^3/uL; Basophil% 0.4 % (0-1); Eosinophil# 0.29 X10^3/uL; Eosinophils% 3.1 % (0-5); Lymphocyte # 2.73 X10^3/ul (0.83-4.51); Lymphocyte % 29.1 % (19-41); Mean Corpuscular Hgb 26.3 pg (27.0-32.0); Mean Corpuscular Volume 84.8 fL (81-99); Mean Platelet Vol. 11.7 fl (6.2-12.0); Monocyte# 0.69 X10^3/uL; Monocyte% 7.4 % (0-10); NRBC Flagged by Analyzer 0 % (0-5); Neutrophil # 5.52 X10^3/uL (2.7-7.7); Neutrophil % 58.8 % (47-70); Platelet Count 184 K/mm3 (150-450); RBC Distribution Width SD 46.1 fl (35.1-43.9); Red Blood Count 3.42 M/mm3 (4.2-5.4); White Blood Count 9.4 K/mm3 (4.4-11.0)
[2021-11-04 06:53] VITALS: PULSE 80; O2SAT 98
--- NOTE | 2021-11-04 07:16 | PCM.PN.OB ---
Subjective Subjective Denies further vaginal bleeding. No contractions, leaking of fluid, cramping or abdominal pain. She feels well this morning. Objective Data Objective Data Vital Signs: Vital Signs Temp Pulse BP Pulse Ox 97.8 F 80 106/57 L 98 11/04/21 04:23 11/04/21 06:53 11/04/21 04:23 11/04/21 06:53 Weight: 81.647 kg Body Mass Index (BMI) 29.9 Lab / Micro Data Result Diagrams: 11/04/21 06:15 Labs: Laboratory Results - last 24 hr 11/03/21 22:05: WBC 11.4 H, RBC 3.68 L, Hgb 9.8 L, Hct 31.2 L, MCV 84.8, MCH 26.6 L, MCHC 31.4 L, RDW Std Deviation 45.6 H, RDW Coeff of Joe 14.8 H, Plt Count 185, MPV 11.3, Immature Gran % (Auto) 0.800, Neut % (Auto) 69.8, Lymph % (Auto) 22.1, [place] % (Auto) 5.4, Eos % (Auto) 1.6, Baso % (Auto) 0.3, Absolute Neuts (auto) 8.0 H, Absolute Lymphs (auto) 2.51, Nucleated RBC % 0 11/03/21 22:05: PT 13.4, INR 1.1, APTT 27.0 11/03/21 22:05: Blood Type A POSITIVE 11/03/21 22:28: Urine Opiates Screen NEGATIVE, Urine Methadone Screen NEGATIVE, Ur Barbiturates Screen NEGATIVE, Ur Phencyclidine Scrn NEGATIVE, Ur Amphetamines Screen NEGATIVE, MDMA (Ecstasy) Screen NEGATIVE, U Benzodiazepines Scrn NEGATIVE, Urine Cocaine Screen NEGATIVE, U Cannabinoids Screen NEGATIVE, Ur Drug Screen Comment 11/04/21 06:15: WBC 9.4, RBC 3.42 L, Hgb 9.0 L, Hct 29.0 L, MCV 84.8, MCH 26.3 L, MCHC 31.0 L, RDW Std Deviation 46.1 H, RDW Coeff of Joe 15.0 H, Plt Count 184, MPV 11.7, Immature Gran % (Auto) 1.200 H, Neut % (Auto) 58.8, Lymph % (Auto) 29.1, [place] % (Auto) 7.4, Eos % (Auto) 3.1, Baso % (Auto) 0.4, Absolute Neuts (auto) 5.5, Absolute Lymphs (auto) 2.73, Nucleated RBC % 0 Radiography Diagnostic Testing: Radiology Impression Obstetrics Ultrasound 11/03/21 23:08 IMPRESSION: Normal length of closed cervix. Electronically Signed: Delmis Watts MD at 2:17 EDT , Physical Exam Narrative GEN - NAD, AAO x 2 FHT 135 bpm ABD -soft, nontender, nondistended Assessment & Plan (1) 22 weeks gestation of : (2) Vaginal bleeding during , antepartum: PLAN: resolved, H/H stable US with no evidence of placental hematoma or abruption and cervical lengh 32mm on TVUS Plan repeat cervical length at office visit in 2 weeks d/c home
== END 2021-11-04 07:05 | disposition home or self-care (01) ==
LOC: WPOUT 21:17 → WP 21:17
PROVIDERS: PCP Family Medicine; Referring Provider Obstetrics & Gynecology; Visit Provider Obstetrics & Gynecology
DX: O46.92 Antepartum hemorrhage, unspecified, second trimester (principal); Z87.891 Personal history of nicotine dependence; Z3A.22 22 weeks gestation of pregnancy
CPT/HCPCS: 36415; 59025; 59050; 76815; 76816; 76817; 80307; 85025; 85610; 85730; 86900; 86901; 99218; G0378

== ENCOUNTER 2021-11-22 13:25 | Outpatient (CLI) | payer MEDICAID, SELFPAY ==
[2021-11-22 13:43] VITALS: BMI 30.7
[2021-11-22 13:52] VITALS: TEMP 36.8; O2SAT 99
[2021-11-22 13:53] VITALS: BP 123/57; PULSE 91
--- NOTE | 2021-11-22 18:34 | OB.TRI.HP_ITS ---
HPI - General HPI Narrative SHILPA HOANG, is a 25 F who presents with decreased movement and cramping Maternal Data Information JANE Calculator Estimated Delivery Date Method Current WG Current Estimate 03/05/22 Ultrasound #1 25w 2d PFSH PFS Medical History (Updated 11/22/21 @ 18:[address] Jose Alfredo Ewing MD) Anxiety Cervical myofascial strain Encounter for screening for COVID-19 (spontaneous vaginal delivery) Home Medications kcfrixfl-sie-Ke-FA [ + Iron] 1 tab PO DAILY 09/13/21 [History Last Taken 11/21/21 20:00] Allergy/AdvReac Type Severity Reaction Status Date / Time No Known Allergies Allergy Verified 11/03/21 21:26 Social History (Updated 11/03/21 @ 23:[address] 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 Date Name GA/Weeks Outcome Route Bth Weight Infant Gen Labor Lgth Anesthesia Del Locatn Provider FOB 02/09/17 [place] 41 live - full term [id number] Female 18 epi dural [facility] Trey Alejandre 11/13/18 [place] 39 live - full term 8lb2oz Female 13 ep idural [facility] Lucianokoaparna NST FHR Rate Baby A Baseline: 120 Variability:: Moderate Accelerations:: 10 x 10 Decelerations:: None NST Reactive:: Yes Uterine Activity:: Quiet Assessment & Plan (1) : PLAN: Patient arrives with decreased movement now feeling movement NST reactive. Pelvic cramping, cervix closed. Reassuring. Patient now asymptomatic. Okay to discharge home and follow-up scheduled appointment
== END 2021-11-22 16:26 | disposition home or self-care (01) ==
LOC: WPOUT 13:37 → WP 13:37
PROVIDERS: PCP Family Medicine; Referring Provider Obstetrics & Gynecology; Visit Provider Obstetrics & Gynecology
DX: O36.8120 Decreased fetal movements, second trimester, not applicable or unspecified (principal); Z87.891 Personal history of nicotine dependence; Z3A.25 25 weeks gestation of pregnancy
CPT/HCPCS: 59025; 59050; 99218; G0378

== ENCOUNTER → 2021-12-13 | Outpatient (CLI) | payer MEDICAID, SELFPAY ==
[2021-12-13 15:59] LABS: Hematocrit 31.6 % (37-47); Hemoglobin 9.9 g/dL (12.0-15.0); Mean Corp Hgb Conc 31.3 g/dL (32-36); Mean Corpuscular Hgb 26.7 pg (27.0-32.0); Mean Corpuscular Volume 85.2 fL (81-99); Mean Platelet Vol. 11.9 fl (6.2-12.0); Platelet Count 172 K/mm3 (150-450); RBC Distribution Width CV 15.7 % (11.6-14.6); RBC Distribution Width SD 48.6 fl (35.1-43.9); Red Blood Count 3.71 M/mm3 (4.2-5.4); White Blood Count 9.9 K/mm3 (4.4-11.0)
[2021-12-13 16:03] LABS: Glucose Challenge Gest 1H 50g 129 mg/dL (70-140)
== END | disposition home or self-care (01) ==
PROVIDERS: Obstetrics & Gynecology; PCP Family Medicine; Visit Provider Obstetrics & Gynecology
DX: Z34.83 Encounter for supervision of other normal pregnancy, third trimester (principal)
CPT/HCPCS: 36415; 82950; 85027

== ENCOUNTER 2021-12-22 21:17 | Emergency (ER) | payer MEDICAID, SELFPAY ==
[2021-12-22 21:18] VITALS: BP 115/96; PULSE 89; RESP 16; TEMP 36.6; O2SAT 97; BMI 31.6
--- NOTE | 2021-12-22 21:37 | ED.VIS.LOWEX ---
HPI History of Present Illness Chief Complaint: Lower Extremity Injury Informant: patient Onset/Context/Timing Onset: Today Context: Gradual Onset Current Severity: Moderate Maximum Severity: Moderate Narrative Narrative: Patient present secondary to swelling and pain of her distal right leg. She states she noted symptoms around 1 PM this afternoon and it has continued to worsen. She is currently 29 weeks . No recent falls or injuries. 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 ROS ROS ED Constitutional Constitutional ED: Denies chills or fever(s) Eyes Eyes: Denies change in vision or discharge from eye(s) ENT ENT ED: Denies discharge from eye(s), rhinorrhea or sore throat Cardiovascular Cardiovascular: Denies chest pain or palpitations Respiratory/Chest Respiratory/Chest: Denies cough or dyspnea Gastrointestinal Gastrointestinal: Denies abdominal pain, diarrhea, nausea or vomiting Genitourinary Genitourinary ED: Denies dysuria Musculoskeletal Musculoskeletal: Reports extremity pain; Denies back pain Integumentary Denies Abrasions or rash Neurologic Neurologic: Denies headache(s), paresthesias or weakness Allergic/Immunologic Allergic/Immunologic ED: Denies lip swelling or urticaria EXAM Physical Exam Const Vital Signs: 12/22/21 21:18 Temperature 97.8 F Temperature Source Temporal Pulse Rate 89 Respiratory Rate 16 Blood Pressure 115/96 H Blood Pressure Mean 102 Pulse Ox 97 Oxygen Delivery Method Room Air Positive well nourished and well developed General Appearance ED: well developed HEENT Reports normocephalic and head/scalp atraumatic Eyes PERRL and EOMs intact bilaterally Neck supple Chest Wall inspection of chest normal and palpation of chest normal Resp normal respiratory effort and clear to auscultation bilaterally Cardio regular rate and regular rhythm GI GI Narrative: Abdomen soft and gravid. Back/Spine no CVA tenderness Extremity Extremity Narrative: 2+ edema to right lower extremity. Mild tenderness in the right calf. No palpable cords. Strong distal pulses with good cap refill. Normal sensation throughout. Neuro oriented x3 and no sensory deficits noted Sensorium / Orientation: alert Motor Exam: strength 5/5 throughout Psych mental status grossly normal Skin no rashes or lesions noted MDM MDM MDM Narrative Medical decision making narrative: With patient having no acute injury I do not feel x-rays are indicated at this time. She will be treated with Tylenol and an Pierre wrap will be applied to her leg tonight to help with fluid reabsorption. She is coached on elevating her feet. She presents at a time when venous ultrasound is not available. She will return tomorrow for venous ultrasound of her leg to ensure no DVT. Discharge Plan Triage Chief Complaint: Lower Extremity Injury ED Provider: Margarita Griggs Dx/Rx/DC Orders Clinical Impression: Edema of right lower extremity Instructions: ED Peripheral Edema, Unilateral Prescriptions: No Action + Iron 1 mg Tablet 1 tab PO DAILY Other Ambulatory Orders: Venous Duplex US, Unilateral (Routine) Facility: [facility] - Location: [facility] Ordered By: Dr. Margarita Griggs ON-CALL NEEDED: Notify [facility] - Doppler Study Ordered (Stat) Location: None Selected Ordered By: Dr. Margarita Griggs Primary Care Provider: David Mckinney Referrals: David Mckinney MD [Primary Care Provider] - 5-7 Days Activity Restrictions/Additional Instructions: You will be called tomorrow to come in for venous ultrasound of your leg. This will ensure there is no evidence of a blood clot. Please use Tylenol as needed for pain. Disposition Disposition: Home, Self Care Discharge Date/Time: 12/22/21 21:49
[2021-12-22] MEDS: Acetaminophen 500 MG Tablet 1000 MG PO (21:46)
== END 2021-12-22 21:49 | disposition home or self-care (01) ==
LOC: ED 21:42
PROVIDERS: Emergency Provider Emergency Medicine; PCP Family Medicine; Visit Provider Emergency Medicine
DX: O26.893 Other specified pregnancy related conditions, third trimester (principal); R60.0 Localized edema; M79.604 Pain in right leg; Z3A.29 29 weeks gestation of pregnancy; Z87.891 Personal history of nicotine dependence
CPT/HCPCS: 99283

== ENCOUNTER → 2021-12-23 | Outpatient (CLI) | payer MEDICAID, SELFPAY ==
--- NOTE | 2021-12-23 12:04 | VDLE_ITS ---
Reason For Study: Swelling RIGHT GSV is normal. CFV is compressible, spontaneous, phasic, competent and demonstrates normal augmentation. FV is compressible, spontaneous, phasic, competent and demonstrates normal augmentation. POP V is compressible, spontaneous, phasic, competent and demonstrates normal augmentation. T/P Trunk is compressible. PTV is compressible. RT PerV is compressible. Procedure This is a venous duplex using B-mode, color flow and spectral Doppler. Exam performed portable in ED. A preliminary report was called and/or faxed to ED. VL/Venous Duplex US, Unilateral Interpretation Summary Deep veins of the right lower extremity are patent and compressible segmentally . There is no evidence of right lower extremity deep vein thrombosis. Valvular competence storm ears intact within the proximal deep venous system on the right . The right great saphenous vein a ppears patent and compressible segmentally. Ordering Physician: Margarita Griggs Referring Physician: David Mckinney Performed By: Sabine Justin, [place], RVT
== END | disposition home or self-care (01) ==
LOC: VL 11:57
PROVIDERS: PCP Family Medicine; Referring Provider Emergency Medicine; Visit Provider Emergency Medicine
DX: M79.89 Other specified soft tissue disorders (principal)
CPT/HCPCS: 93971

== ENCOUNTER → 2022-02-13 | Outpatient (CLI) | payer MEDICAID, SELFPAY | END | disposition home or self-care (01) | LOC: LABSPEC 16:43 | PROVIDERS: PCP Family Medicine; Visit Provider Obstetrics & Gynecology | DX: Z36.85 Encounter for antenatal screening for Streptococcus B (principal) | CPT/HCPCS: 87081 ==

== ENCOUNTER 2022-02-17 12:49 | Outpatient (CLI) | payer MEDICAID, SELFPAY ==
[2022-02-17] VITALS (20 sets, daily range): BP systolic 139; BP diastolic 69; PULSE 82–121; TEMP 36.9; O2SAT 97–99; BMI 33.1
[2022-02-17 13:39] LABS: ROM Internal Control Test YES-OK TO RESULT pt. (Internal QC); ROM Patient Test Negative (Negative)
--- NOTE | 2022-02-18 18:26 | PCM.PN.OB ---
Subjective Subjective 26-year-old G4, P3 at 37/5 weeks presenting with contractions to rule out labor, rule out rupture membranes. Objective Data Objective Data Vital Signs: Vital Signs Temp Pulse BP Pulse Ox 98.4 F 95 139/69 H 97 02/17/22 13:22 02/17/22 14:57 02/17/22 13:22 02/17/22 14:57 Weight: 90.265 kg Body Mass Index (BMI) 33.1 Physical Exam Narrative: Cervical exam unchanged per RN. NST FHR Rate Baby A Baseline: 135 Variability:: Moderate Accelerations:: 15 x 15 Decelerations:: None NST Reactive:: Yes Assessment & Plan (1) Irregular contractions: PLAN: Plan G4, P3 at 37/5 weeks. Not in labor, not ruptured. status reassuring. Discharged home with labor precautions.
== END 2022-02-17 15:11 | disposition home or self-care (01) ==
LOC: WPOUT 12:52 → WP 12:53
PROVIDERS: PCP Family Medicine; Visit Provider Student in an Organized Health Care Education/Training Program
DX: O47.1 False labor at or after 37 completed weeks of gestation (principal); Z3A.37 37 weeks gestation of pregnancy
CPT/HCPCS: 59025; 59050; 84112; G0378 ×2; 99218

== ENCOUNTER 2022-02-20 16:18 | Inpatient (IN) | payer MEDICAID, SELFPAY ==
[2022-02-20] VITALS (20 sets, daily range): BP systolic 103–150; BP diastolic 60–86; PULSE 82–101; TEMP 36.7–36.9; O2SAT 92–100; BMI 33.1
[2022-02-20] MEDS: LACTATED RINGERS 500 ML 999 ML IV ×2 (17:05→22:50)
[2022-02-20] MEDS: Lactated Ringers 1,000 ML 50 ML IV (17:11)
[2022-02-20 17:24] LABS: Hematocrit 31.9 % (37-47); Hemoglobin 10.1 g/dL (12.0-15.0); Mean Corp Hgb Conc 31.7 g/dL (32-36); Mean Corpuscular Hgb 26.4 pg (27.0-32.0); Mean Corpuscular Volume 83.3 fL (81-99); Mean Platelet Vol. 12.8 fl (6.2-12.0); Platelet Count 171 K/mm3 (150-450); RBC Distribution Width CV 14.6 % (11.6-14.6); Red Blood Count 3.83 M/mm3 (4.2-5.4); White Blood Count 10.5 K/mm3 (4.4-11.0)
[2022-02-20 17:38] LABS: AST(SGOT) 16 U/L (15-37); Alanine Aminotransfer ALT/SGPT 16 U/L (13-56); EST Glomerular Filtration Rate 204 mL/min (>60); Est Glom Filt Rate - Afr Amer 246 mL/min (>60); Estimated Creatinine Clearance 193.46 ml/min; LDH 170 U/L (84-246); Uric Acid 3.9 mg/dL (2.6-6.0)
[2022-02-20 18:13] LABS: Color, Urine Yellow (Yellow); Glucose, Dipstick 250 mg/dl (Normal); Ketone-Dipstick Negative (Negative); Leukocyte Esterase-Dipstick 500 /ul (Negative); Nitrite-Dipstick Negative (Negative); Occult Blood-Urine 250 /ul (Negative); Protein-Dipstick 15 mg/dl (Negative); Urine Bilirubin Dipstick Negative (Negative); Urine Clarity Sl. Cloudy (Clear); Urine Urobilinogen 1 mg/dl (Normal)
[2022-02-20 18:26] LABS: Protein, Urine (Random) 20.4 mg/dL (<11.9); Protein:Creat Ratio 187 mg/g CRE (0-200)
[2022-02-20 18:27] LABS: Amphetamine Urine VISTA NEGATIVE (<1000 ng/mL); Barbiturate Urine VISTA NEGATIVE (< 200 ng/mL); Benzodiazepine Urine VISTA NEGATIVE (< 200 ng/mL); Cocaine Urine VISTA NEGATIVE (< 300 ng/mL); Ecstacy Urine VISTA NEGATIVE (< 500 ng/mL); Methadone Urine VISTA NEGATIVE (< 300 ng/mL); PCP Urine VISTA NEGATIVE (< 25 ng/mL); THC Urine VISTA NEGATIVE (< 50 ng/mL); Vista UDS pH Range 6
[2022-02-20 18:40] LABS: Red Blood Cells-Urine 5-10 SEEN /hpf (0-5); Squamous Epithelial Cells - UA 10-25 SEEN /hpf (5-10); White Blood Cells 10-25 SEEN /hpf (0-5)
[2022-02-20 18:41] LABS: Bacteria 4+ /hpf (None Seen); Mucous, Urine 1+ /hpf (<or=2+); Trichomonas 0-5 SEEN /hpf (None Seen)
[2022-02-20 19:14] LABS: ALB/GLOB Ratio 0.6 RATIO (0.9-2.4); AST(SGOT) 16 U/L (15-37); Alanine Aminotransfer ALT/SGPT 16 U/L (13-56); Albumin, Serum 2.6 g/dL (3.2-5.0); Alkaline Phosphatase 194 U/L (45-117); Anion Gap 7 (5-15); BUN 7 mg/dL (7-18); Calcium,Total 8.7 mg/dL (8.5-10.1); Chloride 108 mmol/L (98-107); Creatinine, Serum 0.39 mg/dL (0.55-1.02); EST Glomerular Filtration Rate 214 mL/min (>60); Est Glom Filt Rate - Afr Amer 259 mL/min (>60); Estimated Creatinine Clearance 198.42 ml/min; Glucose 59 mg/dL (74-106); Potassium 3.8 mmol/L (3.5-5.1); Protein, Total 6.6 g/dL (6.4-8.2); Sodium Level 137 mmol/L (136-145)
--- NOTE | 2022-02-20 19:41 | PCM.HP.BLA ---
History and Physical Date of Admission: 02/20/22 Chief complaint: Induction of labor gestational hypertension History present illness: 26-year-old G4, P2 at 38 weeks and 1 day with JANE 03/05/2022 arrives with elevated blood pressures. Denies headache, vision changes, chest pain, shortness of breath, nausea vomit, right upper quadrant pain. Patient states good movement. Obstetrical history: G1: 41-week female 8 pounds 13 ounces G2: 39-week female 8 pounds 7 ounces G3: 26-week demise G4: Current Medications: vitamin Past medical history: None Past surgical history: None Allergies: No known drug allergies Family history: Denies history of DVT or PE Social history: Former smoker, former methamphetamine user, denies alcohol Review of systems: Besides above pertinent positives a full review of systems was performed and found to be negative Physical exam: Vitals: Blood pressure 123/70 pulse 82 temperature 98.1 ?F General: Normal-appearing no acute distress none HEENT: Normocephalic atraumatic no cervical of adenopathy Cardiac/respiratory: Denies accessory muscles, nonlabored breathing Abdomen: Soft, nontender, gravid Extremities: No peripheral edema normal peripheral pulses Psych: Normal affect normal demeanor nonpressured speech Labs: White blood cell count 10.5 hemoglobin 10.1 hematocrit 31.9% platelets 171. Creatinine 0.39 bilirubin 0.4. AST 16 ALT 16. LDH 170. Urine protein creatinine ratio 0.18. Blood type a positive antibody negative Assessment and plan: 26-year-old G4, P2 at 38 weeks and 1 day with gestational hypertension for induction of labor Admit labor and delivery CEFM Pitocin induction Gestational hypertension: Remains asymptomatic, HELLP labs within normal limits. We will continue to monitor blood pressures and treat appropriately. Anesthesia to see
[2022-02-20] MEDS: Oxytocin 30 units/NS 500 ml 30 UNITS/500 ML IV.SOLN IV (22:18)
[2022-02-21] VITALS (50 sets, daily range): BP systolic 103–136; BP diastolic 56–86; PULSE 72–103; RESP 16–18; TEMP 36.7–37.9; O2SAT 97–99
[2022-02-21] MEDS: fentaNYL-bupivacaine (epidural) 100 ML BAG EPIDURAL ×3 (00:02→09:49)
[2022-02-21] MEDS: Lactated Ringers 1,000 ML 200 ML IV ×2 (03:07→08:07)
--- NOTE | 2022-02-21 07:12 | PN.OBGYN_ITS ---
Subjective Subjective Patient seen and examined. Comfortable resting in bed. Objective Data Objective Data Vital Signs: Vital Signs Temp Pulse BP Pulse Ox 98.8 F 83 133/60 H 98 02/21/22 06:10 02/21/22 06:10 02/21/22 06:10 02/21/22 06:10 Weight: 90.265 kg Body Mass Index (BMI) 33.1 Intake & Output: Intake and Output for Last 24 Hours 02/19/22 02/20/22 02/21/22 23:59 23:59 23:59 Intake Total 1284.9 / 1284.9 910.30 / 910.30 Output Total 450 / 450 Balance 1284.9 / 1284.9 460.30 / 460.30 Lab / Micro Data Result Diagrams: 02/20/22 16:55 02/20/22 16:55 Labs: Laboratory Results - last 24 hr 02/20/22 16:55: WBC 10.5, RBC 3.83 L, Hgb 10.1 L, Hct 31.9 L, MCV 83.3, MCH 26.4 L, MCHC 31.7 L, RDW Std Deviation 44.0 H, RDW Coeff of Joe 14.6, Plt Count 171, MPV 12.8 H 02/20/22 16:55: Creatinine 0.40 L, Estim Creat Clear Calc 193.46, Est GFR (MDRD) Af Amer 246, Est GFR (MDRD) Non-Af 204, Uric Acid 3.9, AST 16, ALT 16, Lactate Dehydrogenase 170 02/20/22 16:55: Sodium 137, Potassium 3.8, Chloride 108 H, Carbon Dioxide 22.0, Anion Gap 7, BUN 7, Creatinine 0.39 L, Estim Creat Clear Calc 198.42, Est GFR (MDRD) Af Amer 259, Est GFR (MDRD) Non-Af 214, BUN/Creatinine Ratio 18.0, Gl ucose 59 L, Calcium 8.7, Total Bilirubin 0.40, AST 16, ALT 16, Alkaline Phosp hatase 194 H, Total Protein 6.6, Albumin 2.6 L, Globulin 4.0, Albumin/Globulin Ratio 0.6 L 02/20/22 16:55: Blood Type A POSITIVE, Antibody Screen NEGATIVE 02/20/22 17:50: Urine Color Yellow, Urine Clarity Sl. Cloudy, Urine pH 6.0, Ur Specific [place] 1.020, Urine Protein 15 H, Urine Glucose (UA) 250 H, Urine Ketones Negative, Urine Occult Blood 250 H, Urine Nitrite Negative, Urine Bilirubin Negative, Urine Urobilinogen 1 H, Ur Leukocyte Esterase 500 H, Urine RBC 5-10 SEEN, Urine WBC 10-25 SEEN, Ur Squamous Epith Cells 10-25 SEEN, Urine Bacteria 4+, Urine Mucus 1+, Urine Trichomonas 0-5 SEEN 02/20/22 17:50: U Random Total Protein 20.4 H, Urine Creatinine 109.00, Protein/Creatinin Ratio 187 02/20/22 17:50: Urine Opiates Screen NEGATIVE, Urine Methadone Screen NEGATIVE, Ur Barbiturates Screen NEGATIVE, Ur Phencyclidine Scrn NEGATIVE, Ur Amphetamines Screen NEGATIVE, MDMA (Ecstasy) Screen NEGATIVE, U Benzodiazepines Scrn NEGATIVE, Urine Cocaine Screen NEGATIVE, U Cannabinoids Screen NEGATIVE, Ur Drug Screen Comment Micro: Microbiology 02/20/22 17:15 Nasal Secretion SARS-CoV-2 Antigen (Rapid) - Final Physical Exam Const alert and oriented x3 HEENT normocephalic Resp normal respiratory effort GI non-tender and non-distended Inspection: gravid Narrative: /-1, AROM clear fluid Extremity no pedal edema NST FHR Rate Baby A Baseline: 135 Variability:: Moderate Accelerations:: 15 x 15 Decelerations:: None FHR Category:: Category I Assessment & Plan (1) Gestational hypertension: PLAN: Continued induction of labor for gestational hypertension. AROM this morning. Category 1. Continue titrating Pitocin as tolerated.
[2022-02-21] MEDS: Oxytocin 30 units/NS 500 ml 30 UNITS/500 ML IV.SOLN 334 UNITS IV (11:36)
[2022-02-21] MEDS: Methylergonovine 0.2 MG/ML Ampul IM (11:38)
--- NOTE | 2022-02-21 11:47 | EX.PCM.OBRPT ---
Maternal Data Information JANE Calculator Estimated Delivery Date Method Current WG Current Estimate 03/05/22 Ultrasound #1 38w 2d Vaginal Delivery Findings Description of Procedure: Normal spontaneous vaginal delivery of a viable male , vertex LASHONDA. Head and shoulders delivered with ease. Cord cut clamped. Baby handed off to patient. Placenta delivered via cord traction and fundal massage. Prophylactic Methergine IM given with quick and second stage. Second-degree midline perineal laceration noted and repaired in typical fashion. EBL 250 cc Apgars 8/9
[2022-02-21] MEDS: Acetaminophen 500 MG Tablet 1000 MG PO ×2 (14:21→21:31)
[2022-02-21] MEDS: Ibuprofen 600 MG Tablet PO ×2 (16:07→23:26)
[2022-02-22] VITALS (11 sets, daily range): BP systolic 116–127; BP diastolic 72–78; PULSE 64–78; RESP 16; TEMP 36.5–37.2; O2SAT 95–99
[2022-02-22] MEDS: Acetaminophen 500 MG Tablet 1000 MG PO ×2 (04:17→10:39)
[2022-02-22] MEDS: Ibuprofen 600 MG Tablet PO ×2 (08:01→14:12)
--- NOTE | 2022-02-22 08:02 | PCM.DC.BLA ---
Discharge Summary Date of Admission: 02/20/22 Date of Discharge: 02/22/22 Summary: Patient arrived in 02/20/2022 for induction of labor with gestational hypertension. Subsequently delivered vaginally on 02/21/2022. Routine recovery, blood pressures within normal limits on no medications. Labs stable. Nexplanon device placed 02/22/2022. Discharge home on 02/22/22 Meaningful Use Info Meaningful Use Diagnoses (Choose all that apply): None applicable Discharge Plan Admission Admit Date/Time: 02/20/22 16:18 Primary Reason for Your Visit: Induction of labor Attending Provider: Jose Alfredo Ewing Primary Care Provider: David Mckinney Instructions Additional Instructions / Restrictions: Regular diet. Weightbearing as tolerated. Okay to shower. No intercourse for 4 to 6 weeks. Call if chest pain, shortness of breath increased bleeding. Follow-up 1 week for blood pressure check, 4 to 6 weeks for visit Discharge Orders/Prescriptions Prescriptions: No Action + Iron 1 mg Tablet 1 tab PO DAILY ferrous sulfate [Iron (ferrous sulfate)] 325 mg (65 mg iron) Tablet 325 mg PO DAILY Referrals / Follow Up: David Mckinney MD [Primary Care Provider] - Disposition Disposition (needs filled in before D/C Order can be placed): Home, Self Care
--- NOTE | 2022-02-22 08:02 | PCM.PN.OB ---
Subjective Subjective No overnight complaints. Denies headache, vision change, chest pain, shortness of breath, nausea vomit, right upper quadrant pain. Objective Data Objective Data Vital Signs: Vital Signs Temp Pulse Resp BP Pulse Ox O2 Del Method 97.7 F L 78 16 120/78 95 Room Air 02/22/22 03:26 02/22/22 03:26 02/22/22 03:24 02/22/22 03:26 02/22/22 03:24 02/22/22 03:24 Oxygen Delivery Method Room Air Weight: 199 lb Body Mass Index (BMI) 33.1 Intake & Output: Intake and Output for Last 24 Hours 02/20/22 02/21/22 02/22/22 23:59 23:59 23:59 Intake Total 1284.9 / 1284.9 3203.87 / 3203.87 Output Total 2400 / 2400 Balance 1284.9 / 1284.9 803.87 / 803.87 Lab / Micro Data Result Diagrams: 02/20/22 16:55 02/20/22 16:55 Micro: Microbiology 02/20/22 17:15 Nasal Secretion SARS-CoV-2 Antigen (Rapid) - Final Physical Exam Const alert, oriented x3, no apparent distress, average body habitus, healthy appearing and well nourished HEENT normocephalic and moist oral mucous membranes Eyes PERRL Neck full ROM Resp normal respiratory effort, no retractions and no use of accessory muscles Extremity normal to inspection, full ROM and no clubbing, cyanosis or edema Neuro moves all extremities, no focal motor deficits and no sensory deficits noted Psych mental status grossly normal, affect normal, speech normal and activity/motor behavior normal Assessment & Plan (1) Gestational hypertension: PLAN: day 1 status post vaginal delivery. Gestational hypertension asymptomatic, labs stable. On no medications. Breast-feeding. Nexplanon insertion: Left arm sterilized 1% lidocaine 3 cc injected after appropriate measurements were taken. Nexplanon device inserted and incision covered with Steri-Strips and arm wrapped. Good hemostasis was noted
[2022-02-22] MEDS: Etonogestrel 68 MG IMPLANT SC (08:08)
--- NOTE | 2022-02-22 11:04 | CASEMGMT ---
Social Work Assessment Labor and Delivery Unit Date/Time of referral: 02/22/22 at 9:21am Referred by: Dr. Jose Alfredo Ewing Date/Time of Interventions? 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 Rocky is not the father of the other two daughters. MOB and FOB are not together, as per MOB they are best friends. JACKLYN has lived in the home for 5 years. He also helps with the other children. Guardian Status: MOB is guardian of the baby Medical History: MOB: History of anxiety and depression, gestational hypertension, lost baby in prior at 26 weeks Baby: Octaviano born 02/21/22, 4325grams. Baby's Apgars were 8 and 9 at 1 and 5 minutes. Baby is large for gestational age. Outreach Team Member: Dr. Mckinney Educational Status: Both MOB and FOB graduated high school Financial Concerns: MOB reports no concerns. 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 JACKLYN has some health issues and gets dialysis, he is in the process of getting disability. Supplies: AREN has all needed supplies including diapers, wipes, clothing, car seat, bassinet, bottles, formula. AREN does plan to breast feed. Childcare/Caregivers: AREN's mother will care for the baby when MOB returns to work. The older girls go to school. Programs/Agencies Involved: [facility]/Legal Issues: No current CSB case, pt is on probation(see below for additional information). Though the fathers of her other children are not involved, she does have one child support case open with one of the fathers. JACKLYN does have another child, MOB states there is no CSB involvement with this child either. Behavioral Health Issues: Mental Health History: AREN states has been diagnosed in the past with anxiety and depression. She has been on meds in the past but has not been on anything since her . MOB states she is doing okay not being on meds, will speak w/her PCP who prescribes meds if she feels she needs to go back on medication. 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 When she found out she was stopped using. She states when she lost her baby she had depression and started using heavily, states she went overboard. AREN denies using any other substances. She ended up getting arrested on drug related charges(possession) and spent 6 months in alf. She got out in March and went into rehab. AREN states has been sober since going into alf. She is still on probation. She is now in counseling at [facility] as well. She states nobody else is using in the home, pt states she would not be there if they were. SW inquired about CSB. She states there was a case open as her mom(the children's grandmother) had temporary custody when MOB was in alf. MOB states she has custody again however and the case was closed. Tox screen here on MOB negative, one was not done on baby. As per Dr. Wilson's note, AREN had negative tox screens during . Family/Social Stressors: She reports none Support systems: AREN's mother, Rocky(FOB), people she knows who are also in recovery who also have small children depression and anxiety/Shaken baby/Safe Sleeping/[facility] Resources/information on National suicide Hotline: SW reviewed all of this information w/MOB and in particular warning signs for depression. SW encouraged MOB to speak w/PCP or OB physician if she is having any symptoms. MOB states understanding. Assessment: MOB appropriate, answered all questions. MOB gazing at baby during assessment, appropriate interaction w/baby. MOB identifying no concerns for homegoing. SW did call CSB, spoke w/Mandy, just to make sure the CSB case is closed. Mandy confirmed it is closed, but did document the baby was born. No further needs at this time, baby home w/MOB and FOB at discharge. MELONIE Flores
--- NOTE | 2022-02-28 14:49 | NURSING ---
Follow up phone call attempted by this RN, waqasil left.
== END 2022-02-22 16:30 | disposition home or self-care (01) | DRG 560 ==
PROVIDERS: Admitting Provider Obstetrics & Gynecology; PCP Family Medicine; Visit Provider Obstetrics & Gynecology
DX: O13.4 Gestational [pregnancy-induced] hypertension without significant proteinuria, complicating childbirth (principal); Z37.0 Single live birth; O70.1 Second degree perineal laceration during delivery; Z3A.38 38 weeks gestation of pregnancy; Z87.891 Personal history of nicotine dependence
CPT/HCPCS: 59025; 59050; 80053; 80307; 81001; 82565; 82570; 83615; 84112; 84156; 84450; 84460; 84550; 85027; 86850; 86900; 86901; 87811; 99218; J7120; G0378

== ENCOUNTER → 2022-08-16 | Outpatient (CLI) | payer MEDICAID, SELFPAY | END | disposition home or self-care (01) | LOC: LABSPEC 10:44 | PROVIDERS: PCP Family Medicine; Visit Provider Obstetrics & Gynecology | DX: R30.0 Dysuria (principal) | CPT/HCPCS: 87086; 87088 ==

== ENCOUNTER → 2022-10-30 | Outpatient (CLI) | payer MEDICAID, SELFPAY ==
[2022-11-07 21:21] LABS: HPV Reflexed? NOT INDICATED
== END | disposition home or self-care (01) ==
LOC: LABSPEC 14:39
PROVIDERS: PCP Family Medicine; Visit Provider Obstetrics & Gynecology
DX: Z12.4 Encounter for screening for malignant neoplasm of cervix (principal)
CPT/HCPCS: 88175; G0145

== ENCOUNTER → 2022-12-26 | Outpatient (CLI) | payer MEDICAID, SELFPAY ==
[2022-12-26 15:04] LABS: Absolute Lymphocyte Count 1.94 X10^3/uL (0.83-4.51); Absolute Neutrophil Count 3.1 X10^3/uL (2.0-7.7); Basophil# 0.07 X10^3/uL; Basophil% 1.2 % (0-1); Eosinophil# 0.33 X10^3/uL; Eosinophils% 5.6 % (0-5); Hematocrit 43.5 % (37-47); Lymphocyte # 1.94 X10^3/ul (0.83-4.51); Mean Corp Hgb Conc 32.2 g/dL (32-36); Mean Corpuscular Hgb 27.5 pg (27.0-32.0); Mean Corpuscular Volume 85.3 fL (81-99); Mean Platelet Vol. 12.6 fl (6.2-12.0); Monocyte# 0.42 X10^3/uL; Monocyte% 7.1 % (0-10); NRBC Flagged by Analyzer 0 % (0-5); Neutrophil # 3.11 X10^3/uL (2.7-7.7); Neutrophil % 52.9 % (47-70); Platelet Count 215 K/mm3 (150-450); RBC Distribution Width CV 12.7 % (11.6-14.6); RBC Distribution Width SD 39.5 fl (35.1-43.9); White Blood Count 5.9 K/mm3 (4.4-11.0)
[2022-12-26 15:44] LABS: Ferritin 11 ng/mL (8-252); Iron 74 ug/dL (50-170); Iron Binding Capacity,Total 447 ug/dL (250-450); PERCENT IRON SATURATION 16.6 % (15.0-55.0)
== END | disposition home or self-care (01) ==
LOC: MFPLAB 11:58
PROVIDERS: PCP Family Medicine; Visit Provider Family Medicine
DX: E61.1 Iron deficiency (principal); R30.0 Dysuria
CPT/HCPCS: 36415; 82728; 83540; 83550; 85025; 87077; 87086; 87088; 87186

== ENCOUNTER 2023-01-08 15:14 | Emergency (ER) | payer MEDICAID, SELFPAY ==
[2023-01-08 15:15] VITALS: BP 122/78; PULSE 73; RESP 17; TEMP 36.2; O2SAT 98; BMI 29.6
--- NOTE | 2023-01-08 15:22 | RAD_ITS ---
EXAM: XR RIGHT TIBIA AND FIBULA, 2 VIEWS CLINICAL INDICATION: injury TECHNIQUE: Frontal and lateral views of the right tibia and fibula. COMPARISON: No relevant prior studies available. FINDINGS: BONES/JOINTS: Unremarkable. No acute fracture. No subluxation. Normal alignment. Preservation of the joint space. No sclerotic or destructive changes observed. SOFT TISSUES: Unremarkable. No soft tissue swelling or gas. No radiopaque foreign body. RAD/Tibia & Fibula 2 Views IMPRESSION: Negative right tibia and fibula x-rays. Electronically Signed: Maxi Rodriguez MD at 16:06 EDT ,
--- NOTE | 2023-01-08 15:24 | ED.VIS.LOWEX ---
HPI History of Present Illness Chief Complaint: Lower Extremity Injury Informant: patient Occured/Mechanism Mechanism/Context: Yes fall Onset/Context/Timing Onset: Days Context: Gradual Onset Current Severity: Mild Maximum Severity: Moderate Narrative Narrative: Patient presents secondary to right leg injury. Couple days ago she was coming in her house and stepped on a toy couch that her daughter had left leg out. She twisted her leg and fell. She has had pain distal to her right knee since that time. No paresthesias. She tried a dose of ibuprofen without improvement. She denies hip or back pain. [facility] Medical History Anxiety Cervical myofascial strain History of placental abruption depression (spontaneous vaginal delivery) Trauma Home Medications [id number] 1 mg tablet 1 tab PO DAILY 09/13/21 [History Last Taken 02/17/22 09:00] ferrous sulfate 325 mg (65 mg iron) tablet (Iron (ferrous sulfate)) 325 mg PO DAILY 02/17/22 [History Last Taken 02/14/22 21:00] naproxen 500 mg tablet (Naprosyn) 500 mg PO BID PRN pain #20 tabs 01/08/23 [Rx Last Taken Unknown] Allergy/AdvReac Type Severity Reaction Status Date / Time No Known Allergies Allergy Verified 01/08/23 15:15 Social History number of children: 2 Smoking Status: Former smoker alcohol intake: former 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 ROS ROS ED Constitutional Constitutional ED: Denies chills or fever(s) Eyes Eyes: Denies discharge from eye(s) ENT ENT ED: Denies discharge from eye(s) or sore throat Cardiovascular Cardiovascular: Denies chest pain Respiratory/Chest Respiratory/Chest: Denies cough or dyspnea Gastrointestinal Gastrointestinal: Denies abdominal pain, nausea or vomiting Genitourinary Genitourinary ED: Denies dysuria Musculoskeletal Musculoskeletal: Reports extremity pain; Denies back pain Integumentary Denies Abrasions or rash Neurologic Neurologic: Denies headache(s) or weakness Psychiatric Psychiatric: Denies anxiety or depression Allergic/Immunologic Allergic/Immunologic ED: Denies lip swelling or urticaria EXAM Physical Exam Const Vital Signs: 01/08/23 15:15 Temperature 97.2 F L Temperature Source Temporal Pulse Rate 73 Respiratory Rate 17 Blood Pressure 122/78 H Blood Pressure Mean 92 Pulse Ox 98 Oxygen Delivery Method Room Air Positive well nourished and well developed General Appearance ED: well developed HEENT Reports normocephalic and head/scalp atraumatic Eyes PERRL and EOMs intact bilaterally Neck supple Chest Wall inspection of chest normal and palpation of chest normal Resp normal respiratory effort and clear to auscultation bilaterally Cardio regular rate and regular rhythm GI normal to inspection, nondistended, normoactive bowel sounds Palpation: soft Extremity Extremity Narrative: Mild muscular tenderness throughout the right calf. No significant edema. No erythema, ecchymosis, or abrasions. Strong distal pulses. Good range of motion at all joints. Neuro oriented x3 and no sensory deficits noted Sensorium / Orientation: alert Motor Exam: strength 5/5 throughout Psych mental status grossly normal Skin no rashes or lesions noted MDM MDM MDM Narrative Medical decision making narrative: Patient given a dose of naproxen. Right tib-fib and right foot x-rays obtained to evaluate for fracture. Differential diagnosis includes contusion, sprain, strain, fracture. Radiography Diagnostic Testing: Clinical Impression(s) from Imaging Studies Tibia/Fibula X-Ray 01/08/23 15:22 IMPRESSION: Negative right tibia and fibula x-rays. Electronically Signed: Maxi Rodriguez MD at 16:06 EDT , Foot X-Ray 01/08/23 15:50 IMPRESSION: Negative right foot x-rays. Electronically Signed: Maxi Rodriguez MD at 16:06 EDT , Treatment and Re-Evaluation Narrative: Right tib-fib and right foot x-rays per my interpretation reveal no evidence of acute fracture. Test results discussed with the patient. She be given a prescription for naproxen and given a work note for tomorrow. Discharge Plan Triage Chief Complaint: Lower Extremity Injury ED Provider: Margarita Griggs Dx/Rx/DC Orders Clinical Impression: Contusion of leg, Fall Instructions: ED Contusion, Lower Extremity Prescriptions: New naproxen [Naprosyn] 500 mg tablet 500 mg PO BID PRN (Reason: pain) Qty: 20 0RF No Action + Iron 1 mg Tablet 1 tab PO DAILY ferrous sulfate [Iron (ferrous sulfate)] 325 mg (65 mg iron) Tablet 325 mg PO DAILY Stand Alone Forms: ED Work / School Excuse Primary Care Provider: David Mckinney Referrals: David Mckinney MD [Primary Care Provider] - 1 Week if not improving Disposition Disposition: Home, Self Care
[2023-01-08] MEDS: Naproxen 500 MG Tablet PO (15:32)
--- NOTE | 2023-01-08 15:50 | RAD_ITS ---
EXAM: XR RIGHT FOOT COMPLETE, 3 OR MORE VIEWS CLINICAL INDICATION: injury TECHNIQUE: Frontal, lateral and oblique views of the right foot. COMPARISON: No relevant prior studies available. FINDINGS: BONES/JOINTS: Unremarkable. No acute fracture. No subluxation. Normal alignment. Preservation of the joint space. No sclerotic or destructive changes observed. SOFT TISSUES: Unremarkable. No soft tissue swelling or gas. No radiopaque foreign body. RAD/Foot min 3 Views IMPRESSION: Negative right foot x-rays. Electronically Signed: Maxi Rodriguez MD at 16:06 EDT ,
[2023-01-08 16:23] VITALS: BP 126/76; PULSE 78; RESP 14; TEMP 36.6; O2SAT 99
== END 2023-01-08 16:30 | disposition home or self-care (01) ==
PROVIDERS: Emergency Provider Emergency Medicine; PCP Family Medicine; Visit Provider Emergency Medicine
DX: S80.10XA Contusion of unspecified lower leg, initial encounter (principal); W19.XXXA Unspecified fall, initial encounter; Z87.891 Personal history of nicotine dependence
CPT/HCPCS: 73590; 73630; 99283

== ENCOUNTER 2023-02-24 15:50 | Emergency (ER) | payer MEDICAID, SELFPAY ==
[2023-02-24 15:52] VITALS: BP 120/79; PULSE 106; RESP 18; TEMP 36.3; O2SAT 98; BMI 29.0
--- NOTE | 2023-02-24 16:24 | EX.ED.DYSGE1 ---
HPI History of Present Illness Chief Complaint: General Illness Informant: patient Onset/Context/Timing Onset: Days (2 days) Context: Gradual Onset Narrative Narrative: Patient presents with cold symptoms for the past 2 days. She reports cough and congestion with sore throat and headache. She complains of body aches. She did not have a COVID test. She is coughing up some yellow sputum. [facility] Medical History Anxiety Cervical myofascial strain History of placental abruption depression (spontaneous vaginal delivery) Trauma Home Medications [id number] 1 mg tablet 1 tab PO DAILY 09/13/21 [History Last Taken 02/17/22 09:00] ferrous sulfate 325 mg (65 mg iron) tablet (Iron (ferrous sulfate)) 325 mg PO DAILY 02/17/22 [History Last Taken 02/14/22 21:00] naproxen 500 mg tablet (Naprosyn) 500 mg PO BID PRN pain #20 tabs 01/08/23 [Rx Last Taken Unknown] Allergy/AdvReac Type Severity Reaction Status Date / Time No Known Allergies Allergy Verified 02/24/23 15:52 Social History number of children: 2 Smoking Status: Former smoker alcohol intake: former 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 ROS ROS ED Constitutional Constitutional ED: Reports chills; Denies fever(s) Eyes Eyes: Denies change in vision or discharge from eye(s) ENT ENT ED: Reports rhinorrhea, sore throat and other Details: Congestion ; Denies discharge from eye(s) Cardiovascular Cardiovascular: Denies chest pain or palpitations Respiratory/Chest Respiratory/Chest: Reports cough; Denies dyspnea Gastrointestinal Gastrointestinal: Denies abdominal pain, diarrhea, nausea or vomiting Genitourinary Genitourinary ED: Denies dysuria Musculoskeletal Musculoskeletal: Reports myalgias; Denies back pain or extremity pain Integumentary Denies Abrasions or rash Neurologic Neurologic: Reports headache(s); Denies weakness Psychiatric Psychiatric: Denies anxiety or depression Allergic/Immunologic Allergic/Immunologic ED: Denies lip swelling or urticaria EXAM Physical Exam Const Vital Signs: 02/24/23 15:52 02/24/23 16:26 Temperature 97.3 F L Temperature Source Temporal Pulse Rate 106 H Respiratory Rate 18 Respiratory Effort Normal Non-Labored Blood Pressure 120/79 Blood Pressure Mean 92 Pulse Ox 98 Oxygen Delivery Method Room Air Positive well nourished and well developed General Appearance ED: well developed HEENT Reports normocephalic and head/scalp atraumatic HEENT Narrative: TMs are clear bilaterally. Posterior pharynx examination reveals 1+ tonsils with posterior pharyngeal drainage. No exudate. Uvula midline. Eyes PERRL and EOMs intact bilaterally Neck supple Chest Wall inspection of chest normal and palpation of chest normal Resp normal respiratory effort and clear to auscultation bilaterally Cardio regular rate and regular rhythm GI non-tender Palpation: soft Extremity normal to inspection Neuro oriented x3 and no sensory deficits noted Sensorium / Orientation: alert Motor Exam: strength 5/5 throughout Psych mental status grossly normal Skin no rashes or lesions noted MDM MDM MDM Narrative Medical decision making narrative: Chest x-ray obtained to evaluate for acute lung pathology, cardiac size, or mediastinal abnormality. Swab for COVID and influenza obtained along with a swab for strep. Patient be given Naprosyn along with a dose of Decadron. Radiography Chest X-Ray - ED: 1 View, Read by ED Physician, Normal, Heart, Lungs, Mediastinum and No Infiltrates Treatment and Re-Evaluation :: Swab for COVID, influenza, and strep are all negative. Portable chest x-ray per my interpretation reveals no evidence of infiltrate. Test results are discussed with the patient. I believe she does have another virus causing a viral syndrome and supportive care as discussed. Return instructions given Discharge Plan Triage Chief Complaint: General Illness ED Provider: Margarita Griggs Dx/Rx/DC Orders Clinical Impression: Viral syndrome Instructions: ED Viral Syndrome (Adult) Prescriptions: No Action + Iron 1 mg Tablet 1 tab PO DAILY ferrous sulfate [Iron (ferrous sulfate)] 325 mg (65 mg iron) Tablet 325 mg PO DAILY naproxen [Naprosyn] 500 mg tablet 500 mg PO BID PRN (Reason: pain) Qty: 20 0RF Primary Care Provider: David Mckinney Referrals: David Mckinney MD [Primary Care Provider] - 10-14 Days if not better Disposition Disposition: Home, Self Care
--- NOTE | 2023-02-24 16:30 | RAD_ITS ---
INDICATION: cough EXAMINATION/TECHNIQUE: X-RAY - XR Chest 1 View COMPARISON: 05/26/2017. FINDINGS: LINES/DEVICES: None. LUNGS: No consolidation, edema or effusion. No pneumothorax. MEDIASTINUM AND CARDIOVASCULAR STRUCTURES: Cardiac silhouette not enlarged. Central airways and mediastinal contour are unremarkable. BONES AND SOFT TISSUES: Unremarkable. RAD/Chest 1 View (Portable) IMPRESSION: No radiographic evidence of acute cardiopulmonary disease. Electronically Signed: Zoë Vergara MD at 17:31 EDT Reading Location ID and State: [id number] / Tel , Service support ,
[2023-02-24] MEDS: dexAMETHasone 4 MG Tablet 10 MG PO (16:46)
[2023-02-24] MEDS: Naproxen 500 MG Tablet PO (16:47)
== END 2023-02-24 17:42 | disposition home or self-care (01) ==
PROVIDERS: Emergency Provider Emergency Medicine; PCP Family Medicine; Visit Provider Emergency Medicine
DX: B34.9 Viral infection, unspecified (principal); Z87.891 Personal history of nicotine dependence
CPT/HCPCS: 71045; 87428; 87880; 99282

== ENCOUNTER → 2023-03-12 | Outpatient (CLI) | payer MEDICAID, SELFPAY ==
[2023-03-12 10:36] LABS: Absolute Lymphocyte Count 1.89 X10^3/uL (0.83-4.51); Absolute Neutrophil Count 3.4 X10^3/uL (2.0-7.7); Basophil# 0.04 X10^3/uL; Basophil% 0.7 % (0-1); Eosinophil# 0.28 X10^3/uL; Eosinophils% 4.7 % (0-5); Hematocrit 42.5 % (37-47); Hemoglobin 13.3 g/dL (12.0-15.0); Lymphocyte # 1.89 X10^3/ul (0.83-4.51); Lymphocyte % 31.8 % (19-41); Mean Corp Hgb Conc 31.3 g/dL (32-36); Mean Corpuscular Hgb 26.9 pg (27.0-32.0); Mean Platelet Vol. 12.7 fl (6.2-12.0); Monocyte# 0.37 X10^3/uL; Monocyte% 6.2 % (0-10); NRBC Flagged by Analyzer 0 % (0-5); Neutrophil # 3.36 X10^3/uL (2.7-7.7); Neutrophil % 56.4 % (47-70); Platelet Count 183 K/mm3 (150-450); RBC Distribution Width CV 13.1 % (11.6-14.6); RBC Distribution Width SD 40.7 fl (35.1-43.9); Red Blood Count 4.94 M/mm3 (4.2-5.4)
[2023-03-15 00:06] LABS: Alternaria alternata <0.10 kU/L (Class 0); Aspergillus fumigatus <0.10 kU/L (Class 0); Bahia Grass <0.10 kU/L (Class 0); Beef <0.10 kU/L (Class 0); Bermuda Grass 0.12 kU/L (Class 0/I); Bluegrass, Kentucky <0.10 kU/L (Class 0); Cat Hair/Dander, Standard <0.10 kU/L (Class 0); Cedar, Mountain <0.10 kU/L (Class 0); Chocolate <0.10 kU/L (Class 0); Cladosporium herbarum <0.10 kU/L (Class 0); Cockroach, American <0.10 kU/L (Class 0); D farinae Mite <0.10 kU/L (Class 0); D pteronyssinus <0.10 kU/L (Class 0); Dog Epithelia <0.10 kU/L (Class 0); Egg, Whole <0.10 kU/L (Class 0); Elm, American White 0.27 kU/L (Class 0/I); Hazelnut Tree <0.10 kU/L (Class 0); Hickory, White <0.10 kU/L (Class 0); Johnson Grass 0.12 kU/L (Class 0/I); Maple/Box Elder 0.27 kU/L (Class 0/I); Milk (Cow) <0.10 kU/L (Class 0); Mucor racemosus <0.10 kU/L (Class 0); Mugwort <0.10 kU/L (Class 0); Mulberry, White 0.18 kU/L (Class 0/I); Nettle <0.10 kU/L (Class 0); Oak, White <0.10 kU/L (Class 0); Peanut 0.77 kU/L (Class II); Penicillium chrysogen <0.10 kU/L (Class 0); Pigweed, Rough <0.10 kU/L (Class 0); Plantain, English <0.10 kU/L (Class 0); Pork <0.10 kU/L (Class 0); Ragweed, Short/Common <0.10 kU/L (Class 0); Sheep Sorrel(Dock) <0.10 kU/L (Class 0); Soybean <0.10 kU/L (Class 0); Stemphylium herbarum <0.10 kU/L (Class 0); Sweet Gum <0.10 kU/L (Class 0); Sycamore, American <0.10 kU/L (Class 0); Walnut, (Food) 0.72 kU/L (Class II); Wheat 0.16 kU/L (Class 0/I)
== END | disposition home or self-care (01) ==
LOC: MTLAB 09:34
PROVIDERS: PCP Family Medicine; Referring Provider Family Medicine; Visit Provider Family Medicine
DX: T78.40XA Allergy, unspecified, initial encounter (principal)
CPT/HCPCS: 36415; 82785; 85025; 86003; 86005

== ENCOUNTER 2023-04-02 11:00 | Outpatient (RCR) | payer MEDICAID, SELFPAY ==
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
--- NOTE | 2023-04-16 11:19 | HP.PT.NRP ---
Patient Information Patient Information: SHILPA HOANG was seen in my office for initial evaluation on 03/05/23. The following Plan of Care was established for this patient: POC Established Initial Frequency: 1x/Week Initial Duration: 6 Weeks Anticipated Interventions Patient/Client Instruction: Educate patient on: Condition, Plan of Care and Risk Factors For the Purpose of:: To improve self management Therapeutic Exercise to Include: Strength training, Body mechanics, Postural training, Flexibilty training, Neuromotor development and Dynamic Lumbar Stabilization For the Purpose of:: To decrease pain, To improve muscle performance and motor function, To increase tolerance to activity/condition/position and To improve ability of physical actions for home/community/work/leisure Manual Therapy Techniques to Include: Soft tissue mobilization For the Purpose of:: To decrease pain and To improve nutrient delivery to tissue Cryotherapy (ice pack, ice massage): Yes Thermo therapy (hot pack): Yes For the Purpose of:: To decrease pain, To decrease swelling/inflammation and To improve nutrient delivery to tissue Last Seen Last Seen: This patient was last seen in our office 04/02/23. Pertinent comments regarding their Physical therapy will appear below: This patient has not returned to Physical Therapy and is appropriate to return to MD for further follow-up as needed. At this point I will be discontinuing this patient from physical therapy. I would be happy to see this patient again in the future if found appropriate by the physician. Thank you! Joanna England, PT, Cert MDT Balance/Gait/Functional tests Balance/Special Test Scores Oswestry Low Back Score: 22
== END 2023-04-02 19:00 | disposition home or self-care (01) ==
LOC: PT 11:00
PROVIDERS: PCP Family Medicine; Referring Provider Family Medicine; Visit Provider Family Medicine
DX: M54.9 Dorsalgia, unspecified (principal); G89.29 Other chronic pain; Z87.81 Personal history of (healed) traumatic fracture; R53.1 Weakness
CPT/HCPCS: 97162; 97530

== ENCOUNTER → 2023-05-01 | Outpatient (CLI) | payer MEDICAID, SELFPAY ==
[2023-05-01 17:34] LABS: Absolute Lymphocyte Count 2.12 X10^3/uL (0.83-4.51); Absolute Neutrophil Count 4.3 X10^3/uL (2.0-7.7); Basophil# 0.07 X10^3/uL; Basophil% 0.9 % (0-1); Eosinophils% 5.4 % (0-5); Hemoglobin 13.1 g/dL (12.0-15.0); Lymphocyte # 2.12 X10^3/ul (0.83-4.51); Lymphocyte % 28.7 % (19-41); Mean Corp Hgb Conc 31.2 g/dL (32-36); Mean Corpuscular Hgb 27.7 pg (27.0-32.0); Mean Corpuscular Volume 88.8 fL (81-99); Monocyte# 0.46 X10^3/uL; Monocyte% 6.2 % (0-10); NRBC Flagged by Analyzer 0 % (0-5); Neutrophil # 4.32 X10^3/uL (2.7-7.7); Neutrophil % 58.5 % (47-70); Platelet Count 215 K/mm3 (150-450); RBC Distribution Width CV 12.8 % (11.6-14.6); RBC Distribution Width SD 41.9 fl (35.1-43.9); Red Blood Count 4.73 M/mm3 (4.2-5.4); White Blood Count 7.4 K/mm3 (4.4-11.0)
[2023-05-01 19:20] LABS: AST(SGOT) 12 U/L (15-37); Alanine Aminotransfer ALT/SGPT 33 U/L (13-56); Albumin, Serum 3.9 g/dL (3.2-5.0); Alkaline Phosphatase 95 U/L (45-117); Anion Gap 6 (5-15); BUN 18 mg/dL (7-18); BUN/Creat Ratio 25.6 RATIO (10-20); Calcium,Total 8.8 mg/dL (8.5-10.1); Chloride 106 mmol/L (98-107); EST Glomerular Filtration Rate 107 mL/min (>60); Est Glom Filt Rate - Afr Amer 129 mL/min (>60); Globulin 3.9 g/dL (2.2-4.2); Glucose 90 mg/dL (74-106); Potassium 3.7 mmol/L (3.5-5.1); Prolactin 17.6 ng/mL; Protein, Total 7.8 g/dL (6.4-8.2); Sodium Level 138 mmol/L (136-145); Thyroid Stim Hormone (TSH) 0.63 uIU/mL (0.358-3.74)
== END | disposition home or self-care (01) ==
LOC: MFPLAB 14:43
PROVIDERS: PCP Family Medicine; Visit Provider Family Medicine
DX: N64.3 Galactorrhea not associated with childbirth (principal)
CPT/HCPCS: 36415; 80053; 84146; 84443; 85025

== ENCOUNTER 2023-05-11 17:06 | Emergency (ER) | payer MEDICAID, SELFPAY ==
[2023-05-11 17:06] VITALS: BP 119/98; PULSE 101; RESP 16; TEMP 36.4; O2SAT 98; BMI 29.5
--- NOTE | 2023-05-11 17:27 | EX.ED.DYSGE1 ---
HPI <DARIO Mcdaniel - Last Filed: 05/11/23 19:05> History of Present Illness Chief Complaint: Cold Sx Narrative Narrative: Patient presenting today with flulike symptoms that she has had for the past 3 days. She reports that multiple coworkers have tested positive for COVID. She has had nasal congestion, sneezing, head pressure, intermittent lightheadedness, nausea, cough, and fevers. She denies a PMH of any chronic health conditions. She denies any chest pain, abdominal pain, vomiting, and shortness of breath. PFSH <DARIO Mcdaniel - Last Filed: 05/11/23 19:05> PFSH Medical History Anxiety Cervical myofascial strain History of placental abruption depression (spontaneous vaginal delivery) Trauma Home Medications [id number] 1 mg tablet 1 tab PO DAILY 09/13/21 [History Last Taken 02/17/22 09:00] ferrous sulfate 325 mg (65 mg iron) tablet (Iron (ferrous sulfate)) 325 mg PO DAILY 02/17/22 [History Last Taken 02/14/22 21:00] naproxen 500 mg tablet (Naprosyn) 500 mg PO BID PRN pain #20 tabs 01/08/23 [Rx Last Taken Unknown] Allergy/AdvReac Type Severity Reaction Status Date / Time No Known Allergies Allergy Verified 05/11/23 17:06 Social History number of children: 2 Smoking Status: Former smoker alcohol intake: former 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 ROS <DARIO Mcdaniel - Last Filed: 05/11/23 19:05> ROS ED Constitutional Constitutional ED: Reports chills, fatigue and fever(s) ENT ENT ED: Reports nasal congestion and sinus pressure; Denies sore throat Cardiovascular Cardiovascular: Denies chest pain Respiratory/Chest Respiratory/Chest: Reports cough; Denies dyspnea or dyspnea on exertion Gastrointestinal Gastrointestinal: Reports nausea; Denies abdominal pain, diarrhea or vomiting Musculoskeletal Musculoskeletal: Denies arthralgias or myalgias Integumentary Denies rash Neurologic Neurologic: Denies weakness EXAM <DARIO Mcdaniel - Last Filed: 05/11/23 19:05> Physical Exam Const Vital Signs: 05/11/23 17:06 Temperature 97.5 F L Temperature Source Temporal Pulse Rate 101 H Respiratory Rate 16 Blood Pressure 119/98 H Blood Pressure Mean 105 Pulse Ox 98 Oxygen Delivery Method Room Air Positive well nourished, well developed and no apparent distress General Appearance ED: well developed HEENT Reports normocephalic and head/scalp atraumatic Mouth ED: Yes moist mucous membranes normal Throat: posterior oropharynx normal and uvula midline Eyes PERRL and EOMs intact bilaterally Neck full ROM and supple Chest Wall inspection of chest normal Resp normal respiratory effort and clear to auscultation bilaterally Cardio regular rate and regular rhythm GI soft to palpation, non-tender, non-distended and no masses Back/Spine normal ROM and normal to inspection Extremity normal to inspection and full ROM Neuro oriented x3, CN's II-XII intact bilaterally, moves all extremities, no focal motor deficits and no sensory deficits noted Sensorium / Orientation: awake and alert Psych mental status grossly normal and thought process normal Skin no rashes or lesions noted and no wounds <Dr. Nicolas Jay MD - Last Filed: 05/11/23 18:51> Physical Exam Const Vital Signs: 05/11/23 17:06 Temperature 97.5 F L Temperature Source Temporal Pulse Rate 101 H Respiratory Rate 16 Blood Pressure 119/98 H Blood Pressure Mean 105 Pulse Ox 98 Oxygen Delivery Method Room Air MDM <DARIO Mcdaniel - Last Filed: 05/11/23 19:05> [facility] MDM Narrative Medical decision making narrative: Patient presenting today with cold-like symptoms that she has had for the past 3 days. Several of her coworkers have tested positive for COVID and she is concerned that she could have the same. She is nontoxic-appearing, in no acute distress. Vitals are unremarkable. She will be tested for COVID and flu, these are negative, however, given her exposures I do think that this was a false negative and she likely does have COVID. Regardless, symptoms are consistent with viral illness. She has been given supportive care measures. She will be discharged home in stable condition. She will be given a work note and has been instructed to follow COVID precautions. <Dr. Nicolas Jay MD - Last Filed: 05/11/23 18:51> [facility] Treatment and Re-Evaluation Comments:: I have personally performed a face to face assessment of the patient and have reviewed the BRUNO Note. I performed a substantive portion of the visit including all aspects of the following. My baron findings include: History is 3 days of URI symptoms, no dyspnea, some nasal congestion, headache, both ears are aching, subjective fevers. Exposed to 3 coworkers that all subsequently diagnosed positive for COVID. Exam is well-appearing. TMs normal. Posterior oropharynx normal. No cervical lymphadenopathy or meningismus. Lungs clear to auscultation throughout. Medical Decison Making vital signs noted and unremarkable. COVID and flu swabs and supportive care. COVID-negative but we have high suspicion that this is a false negative. Given appropriate discharge instructions regarding this and a work note. Other additions or changes: [None] Discharge Plan Triage Chief Complaint: Cold Sx ED Midlevel Provider: Chantal Perez ED Provider: Nicolas Jay Dx/Rx/DC Orders Clinical Impression: Viral illness Instructions: ED Viral Syndrome (Adult) Prescriptions: No Action + Iron 1 mg Tablet 1 tab PO DAILY ferrous sulfate [Iron (ferrous sulfate)] 325 mg (65 mg iron) Tablet 325 mg PO DAILY naproxen [Naprosyn] 500 mg tablet 500 mg PO BID PRN (Reason: pain) Qty: 20 0RF Stand Alone Forms: ED Work / School Excuse Primary Care Provider: David Mckinney Referrals: David Mckinney MD [Primary Care Provider] - 5-7 Days Activity Restrictions/Additional Instructions: Follow-up with your PCP, return for any worsening of your symptoms. You can take [id number] cold and flu medications. Stay well-hydrated. Try to get a home portable pulse oximeter and closely watch your oxygen levels periodically. If you stay below 90% for more than a minute or so, and/or you are feeling like your breathing is getting worse, return to the emergency department for further evaluation. Currently, CDC recommendations state that you should stay home through day 5 of symptoms, then as long as symptoms are improving, if you need to go to work or somewhere else you may for days 6-10 as long as you are wearing a mask the entire time. If you are feeling better after day 10 you may resume life is normal. Disposition Disposition: Home, Self Care Discharge Date/Time: 05/11/23 18:55
== END 2023-05-11 18:55 | disposition home or self-care (01) ==
PROVIDERS: Emergency Provider Emergency Medicine; PCP Family Medicine; Visit Provider Emergency Medicine
DX: B34.9 Viral infection, unspecified (principal); Z87.891 Personal history of nicotine dependence
CPT/HCPCS: 87428; 99282

== ENCOUNTER 2023-06-10 10:54 | Emergency (ER) | payer MEDICAID, SELFPAY ==
[2023-06-10 10:55] VITALS: BP 118/82; PULSE 74; RESP 16; TEMP 36.2; O2SAT 100; BMI 29.4
--- NOTE | 2023-06-10 11:16 | EDS_ITS ---
HPI <PAULA Manuel - Last Filed: 06/10/23 11:55> History of Present Illness Chief Complaint: Weakness Narrative Narrative: Patient is a 27-year-old female with no stated medical history was a 4 para 3 who presents to the emergency department after a near syncopal episode. Patient states she woke up this morning feeling slightly nauseous. 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 Because she was at work, the work made her come here. She does feel much better at this time. She states that she would like a test because his last time this happened she was . Patient denies any chest pain or shortness of breath. Denies any recent travel, denies any history of blood clots in the legs or lungs. PFSH <PAULA Manuel - Last Filed: 06/10/23 11:55> PFSH Medical History Anxiety Cervical myofascial strain History of placental abruption depression (spontaneous vaginal delivery) Trauma Home Medications [id number] 1 mg tablet 1 tab PO DAILY 09/13/21 [History Last Taken 02/17/22 09:00] ferrous sulfate 325 mg (65 mg iron) tablet (Iron (ferrous sulfate)) 325 mg PO DAILY 02/17/22 [History Last Taken 02/14/22 21:00] naproxen 500 mg tablet (Naprosyn) 500 mg PO BID PRN pain #20 tabs 01/08/23 [Rx Last Taken Unknown] Allergy/AdvReac Type Severity Reaction Status Date / Time No Known Allergies Allergy Verified 05/11/23 17:06 Social History number of children: 2 Smoking Status: Former smoker alcohol intake: former 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 ROS <PAULA Manuel - Last Filed: 06/10/23 11:55> ROS ED ROS Narrative Constitutional: Negative for fever, chills, weight loss, weakness Eyes: Negative for vision loss, vision change, double vision ENT: Negative for any sore throat, ear pain, congestion Cardiovascular: Negative for any chest pain, tightness, palpitations Respiratory: Negative for any cough, sputum production, hemoptysis, dyspnea, dyspnea on exertion, orthopnea Gastrointestinal: Negative for any abdominal pain, nausea, vomiting, diarrhea, constipation, blood in stool, blood in vomit : Negative for any urinary frequency, dysuria, retention, blood in urine Muscle skeletal: Negative for any myalgias, arthralgias, neck pain, back pain Neurological: Negative for any headache, syncope, paresthesias. Positive for dizzy, near syncope Skin: Negative for any rashes, lumps, itching, abrasions, lacerations Psychiatric: Negative for any depression, anxiety, stress, suicidal ideation, homicidal ideation Hematologic: Negative for any easy bruising, excessive bruising, easy bleeding Allergies: Negative for any eczema, hives, rash EXAM <PAULA Manuel - Last Filed: 06/10/23 11:55> Physical Exam Narrative Exam Narrative: Vital signs reviewed. HEET: Head normocephalic atraumatic, TMs clear bilaterally. Posterior pharynx is clear, moist mucous membranes. Nares clear bilaterally. Pupils equal round reactive to light. Neck: Supple with no lymphadenopathy or tenderness. No signs of meningismus. Cardiac: Regular rate and rhythm no murmurs gallops or rubs, equal peripheral pulses bilaterally. Respiratory: Lungs clear to auscultation bilaterally. No chest tenderness. Abdomen: Soft, nontender, nondistended. No abdominal bruit or pulsatile masses. No hepatosplenomegaly Extremities: No peripheral edema, no signs of gross trauma or deformity. Active full range of motion of all extremities. Neuro: Cranial nerves II through XII intact, no focal neurological deficits. NIH stroke scale 0 Skin: Clean dry and intact with no rash, purpura, petechiae, vesicles or pustules. Backs/flank: No CVA tenderness, no midline spinal tenderness, no deformity. Psych: Normal mood and affect. No SI, HI or acute psychosis. Const Vital Signs: 06/10/23 10:55 Temperature 97.1 F L Temperature Source Temporal Pulse Rate 74 Respiratory Rate 16 Blood Pressure 118/82 H Blood Pressure Mean 94 Pulse Ox 100 Oxygen Delivery Method Room Air Positive well nourished and well developed General Appearance ED: well developed <Dr. David Felix, DO - Last Filed: 06/10/23 12:08> Physical Exam Const Vital Signs: 06/10/23 10:55 Temperature 97.1 F L Temperature Source Temporal Pulse Rate 74 Respiratory Rate 16 Blood Pressure 118/82 H Blood Pressure Mean 94 Pulse Ox 100 Oxygen Delivery Method Room Air [facility] <LA ManuelC - Last Filed: 06/10/23 11:55> [facility] Lab Data Labs: Laboratory Results - last 24 hr 06/10/23 11:25 Serum , Qual NEGATIVE Treatment and Re-Evaluation :: Patient appears generally well, patient appears nontoxic, vital signs are stable. Presenting to the emergency department with complaints of dizziness, nausea, near syncope. Differential diagnosis includes dehydration, orthostatic hypotension, POTS syndrome, . Patient will receive Zofran ODT, patient states she is generally asymptomatic at this time. However she still would like a test. She also requested a blood test. Patient received a serum test. Patient's serum blood was negative. Patient on reevaluation was feeling much better. Patient that she is asymptomatic. She was walking around the department and did not have any dizziness. She states that she would like a work note. She does not want any thing else done. She feels back to normal. All questions were answered, patient was given return precaution. All questions were answered, stable for discharge <Dr. David Felix, DO - Last Filed: 06/10/23 12:08> [facility] Narrative Medical decision making narrative: I have personally performed a face to face assessment of the patient and have reviewed the BRUNO Note. I performed a substantive portion of the visit including all aspects of the following. My baron findings include: History: Patient presents with generalized weakness that began today while she was at work. Patient states she felt lightheaded and felt like she was going to pass out. Patient states her employer told her to come to the emergency department today. Patient states last time she felt like this she was . Patient is concerned about . Exam: Vital signs are stable. Patient is afebrile. Patient is in no acute distress. Oral mucosa is pink and moist. Neck is supple. Trachea is midline. There is no JVD. Heart was regular rate and rhythm. Lungs are clear and equal bilaterally. Abdomen is soft. Bowel sounds are normal. There is no tenderness. Cranial nerves II through XII are intact. There are no focal motor or sensory deficits noted. Medical Decision Making: Differential diagnosis includes , ectopic , and viral illness. Serum hCG will be obtained to assess for . Serum hCG was reviewed and was negative. Patient was advised of her findings. Patient was instructed to drink plenty of fluids. Patient was instructed to follow-up with her primary care physician in 5 to 7 days. Patient understood and was agreeable with the plan. All questions were answered. Lab Data Labs: Laboratory Results - last 24 hr 06/10/23 11:25 Serum , Qual NEGATIVE Discharge Plan Triage Chief Complaint: Weakness ED Midlevel Provider: Alex Dubois ED Provider: David Felix Dx/Rx/DC Orders Clinical Impression: Near syncope Instructions: Causes of Syncope Prescriptions: No Action + Iron 1 mg Tablet 1 tab PO DAILY ferrous sulfate [Iron (ferrous sulfate)] 325 mg (65 mg iron) Tablet 325 mg PO DAILY naproxen [Naprosyn] 500 mg tablet 500 mg PO BID PRN (Reason: pain) Qty: 20 0RF Stand Alone Forms: ED Work / School Excuse Primary Care Provider: David Mckinney Referrals: David Mckinney MD [Primary Care Provider] - Activity Restrictions/Additional Instructions: Please ensure that you drink enough water. Please return here for any worsening symptoms Disposition Disposition: Home, Self Care
[2023-06-10] MEDS: Ondansetron ODT 4 MG Tablet PO (11:21)
[2023-06-10 11:41] LABS: Internal QC Validated? YES +Cl - CLEAR BKGD; Pregnancy, Serum, hCG Quali. NEGATIVE Negative
== END 2023-06-10 12:09 | disposition home or self-care (01) ==
PROVIDERS: Nurse Practitioner; Emergency Provider Emergency Medicine; PCP Family Medicine; Visit Provider Emergency Medicine
DX: R55 Syncope and collapse (principal); Z87.891 Personal history of nicotine dependence
CPT/HCPCS: 84703; 99282; A4216

== ENCOUNTER → 2023-07-04 | Outpatient (CLI) | payer MEDICAID, SELFPAY ==
[2023-07-04 16:50] LABS: Mucous, Urine 0 SEEN /hpf (<or=2+); Red Blood Cells-Urine 0 SEEN /hpf (0-5)
[2023-07-04 17:35] LABS: Absolute Lymphocyte Count 2.38 X10^3/uL (0.83-4.51); Absolute Neutrophil Count 6.4 X10^3/uL (2.0-7.7); Basophil# 0.08 X10^3/uL; Basophil% 0.8 % (0-1); Eosinophil# 0.74 X10^3/uL; Eosinophils% 7.3 % (0-5); Hematocrit 41.5 % (37-47); Hemoglobin 13.1 g/dL (12.0-15.0); Lymphocyte # 2.38 X10^3/ul (0.83-4.51); Lymphocyte % 23.5 % (19-41); Mean Corp Hgb Conc 31.6 g/dL (32-36); Mean Corpuscular Hgb 27.9 pg (27.0-32.0); Mean Corpuscular Volume 88.3 fL (81-99); Mean Platelet Vol. 12.6 fl (6.2-12.0); Monocyte# 0.47 X10^3/uL; Monocyte% 4.6 % (0-10); NRBC Flagged by Analyzer 0 % (0-5); Neutrophil % 63.4 % (47-70); Platelet Count 218 K/mm3 (150-450); RBC Distribution Width CV 12.5 % (11.6-14.6); RBC Distribution Width SD 40.8 fl (35.1-43.9); White Blood Count 10.1 K/mm3 (4.4-11.0)
[2023-07-04 17:38] LABS: Color, Urine Yellow (Yellow); Glucose, Dipstick Normal (Normal); Ketone-Dipstick Negative (Negative); Leukocyte Esterase-Dipstick 100 /ul (Negative); Nitrite-Dipstick Positive (Negative); Occult Blood-Urine 10 /ul (Negative); Protein-Dipstick Negative (Negative); Specific Gravity, Urine 1.015 (1.002-1.030); Urine Bilirubin Dipstick Negative (Negative); Urine Clarity Cloudy (Clear); Urine Urobilinogen Normal (Normal)
[2023-07-04 17:55] LABS: Bacteria 3+ /hpf (None Seen); Squamous Epithelial Cells - UA 5-10 SEEN /hpf (5-10); White Blood Cells 5-10 SEEN /hpf (0-5)
[2023-07-04 18:03] LABS: Internal QC Validated? YES +Cl - CLEAR BKGD; Pregnancy, Serum, hCG Quali. NEGATIVE Negative; Progesterone Level 2.17 ng/mL (See Comment)
== END | disposition home or self-care (01) ==
LOC: MFPLAB 16:48
PROVIDERS: PCP Family Medicine; Visit Provider Family Medicine
DX: Z34.90 Encounter for supervision of normal pregnancy, unspecified, unspecified trimester (principal); R30.0 Dysuria
CPT/HCPCS: 36415; 81001; 84144; 84703; 85025; 87077; 87086; 87088; 87186

== ENCOUNTER 2023-07-17 15:42 | Emergency (ER) | payer MEDICAID, SELFPAY ==
[2023-07-17 15:42] VITALS: BP 121/87; PULSE 89; RESP 18; TEMP 36.4; O2SAT 100; BMI 30.1
--- NOTE | 2023-07-17 15:45 | RAD_ITS ---
STUDY: X-RAY - RIGHT SHOULDER REASON FOR EXAM: Female, 27 years old. Pain after fall TECHNIQUE: 4 view(s) of the shoulder. COMPARISON: None. FINDINGS: Normal glenohumeral articulation. Normal acromioclavicular joint. Normal acromion. Normal humeral head and visualized proximal humerus. The soft tissue structures are unremarkable. Normal visualized pulmonary apex. RAD/Shoulder min 2 Views IMPRESSION: Normal x-ray examination of the shoulder. Electronically Signed: Norman Ryder MD at 16:49 EST ,
--- NOTE | 2023-07-17 15:45 | RAD_ITS ---
STUDY: X-RAY - RIGHT WRIST REASON FOR EXAM: Female, 27 years old. Pain after a fall TECHNIQUE: 3 view(s) of the wrist were obtained. COMPARISON: None. FINDINGS: Normal visualized distal radius and ulna. Normal radiocarpal articulation. Normal distal radioulnar articulation. Normal carpal bones. Normal carpal articulations. Normal carpometacarpal articulation of the thumb. Normal second through fifth carpometacarpal articulations. Normal visualized metacarpal bones. The soft tissue structures are unremarkable. RAD/Wrist min 3 Views IMPRESSION: Normal x-ray examination of the wrist. Electronically Signed: Norman Ryder MD at 16:48 EST ,
--- NOTE | 2023-07-17 16:50 | EX.ED.UPPERE ---
HPI History of Present Illness HPI Narrative: Slipped and fell on a wet floor while cleaning injuring her right shoulder and right wrist. She is right-hand dominant. Prior injury but no prior surgery or fracture. Did not hit her head no LOC. No other complaints. Chief Complaint: Upper Extremity Injury Informant: patient Occured/Mechanism Mechanism/Context: No injury and No blunt trauma Onset/Context/Timing Onset: Today and Hours Context: Sudden Onset Timing: Continuous Quality of Pain: Dull and Aching Current Severity: Mild Maximum Severity: Mild Associated Symptoms Associated Symptoms: Negative for Parasthesia, Weakness or Loss of Funtion Narrative Narrative: 27-year-old female was cleaning slipped and injured her right shoulder as she went down a tiled floor and right wrist. Prior similar symptoms: No Recent Illness/Hospitalization: No PFSH PFSH Medical History Anxiety Cervical myofascial strain History of placental abruption depression (spontaneous vaginal delivery) Trauma Home Medications [id number] 1 mg tablet 1 tab PO DAILY 09/13/21 [History Last Taken 02/17/22 09:00] ferrous sulfate 325 mg (65 mg iron) tablet (Iron (ferrous sulfate)) 325 mg PO DAILY 02/17/22 [History Last Taken 02/14/22 21:00] naproxen 500 mg tablet (Naprosyn) 500 mg PO BID PRN pain #20 tabs 01/08/23 [Rx Last Taken Unknown] Allergy/AdvReac Type Severity Reaction Status Date / Time No Known Allergies Allergy Verified 07/17/23 15:42 Social History number of children: 2 Smoking Status: Former smoker alcohol intake: former 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 Review of Systems ROS Unobtainable: Denies due to encephalopathy Constitutional Constitutional ED: Denies chills Eyes Eyes: Denies blurry vision ENT ENT ED: Denies ear pain Cardiovascular Cardiovascular: Denies chest pain Respiratory/Chest Respiratory/Chest: Denies cough or dyspnea Gastrointestinal Gastrointestinal: Denies abdominal pain Genitourinary Genitourinary ED: Denies dysuria Musculoskeletal Musculoskeletal: Denies back pain Integumentary Denies abscess Neurologic Neurologic: Denies headache(s) Psychiatric Psychiatric: Denies anxiety Endocrine Endocrinology: Denies cold intolerance Hematologic/Lymphatic Hematologic/Lymphatic: Denies easy bleeding, easy bruising or lymphadenopathy Allergic/Immunologic Allergic/Immunologic ED: Denies mouth swelling, tongue swelling or urticaria EXAM Physical Exam Narrative Exam Narrative: Well-appearing young female. Vital signs stable afebrile. HEENT exam unremarkable atraumatic. Pupils round reactive light. Extra motions are intact. Face and scalp nontender no hematomas. Neck nontender full range of motion. Trachea midline nontender. Back nontender spine nontender no bruising. Lungs clear to auscultation bilaterally. Heart regular rhythm no murmur. Rate about 90. Chest wall and ribs nontender. Abdomen soft nontender. Pelvic girdle intact. Moving all 4 extremities. Full range of motion no deformity both upper and lower extremities. 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 Dorsi plantarflexion intact. Mild tenderness right posterior upper shoulder no bruising. Full range of motion of the right shoulder. Able to lift her arm overhead. Full flexion extension of the right elbow nontender. Minimal tenderness to the dorsum of the right wrist no deformity normal radial pulse normal marketing automation manager strength and sensation of the right hand. Neurologically she is awake and alert with no focal motor deficits. Const Vital Signs: 07/17/23 15:42 Temperature 97.6 F L Temperature Source Temporal Pulse Rate 89 Respiratory Rate 18 Blood Pressure 121/87 H Blood Pressure Mean 98 Pulse Ox 100 Oxygen Delivery Method Room Air Positive well nourished and well developed; Negative for obese, cachectic, contractures or unkempt General Appearance ED: well developed and NAD; Negative for unkempt, cachectic, contractures, cyanotic or diaphoretic Nutritional Appearance: Negative for cachectic or obese HEENT Reports moist mucous membranes normocephalic and atraumatic; Negative for trauma or tenderness Eyes PERRL and EOMs intact bilaterally General Eye ED: Negative for other Neck full ROM and supple General: Negative for tenderness Chest Wall inspection of chest normal and palpation of chest normal Chest: Negative for other Resp normal respiratory effort and clear to auscultation bilaterally Effort and Inspection: Negative for pain with movement Auscultation: Negative for rales, rhonchi or wheezes Cardio regular rate, regular rhythm, S1 normal heart sound, S2 normal heart sound and no murmurs Rate: Negative for bradycardia or tachycardic Rhythm: Negative for abnormal rhythm GI non-tender, non-distended and no masses Inspection: Negative for abdominal distention Auscultation: normoactive bowel sounds Palpation: soft; Negative for tender or guarding Bladder / Kidney Exam: No other Back/Spine no CVA tenderness General Back: Negative for CVA tenderness Cervical Spine: Negative for cervical spine tenderness Thoracic Spine / Upper Back: Negative for thoracic spinal tenderness Lumbar Spine / Lower Back: Negative for lumbar spinal tenderness Extremity normal to inspection and full ROM Extremity Narrative: Mild tenderness right wrist. Mild tenderness right posterior shoulder. Full range of motion each. No swelling. No deformity. General Extremety ED: Negative for edema General Extremity: Negative for edema Neuro oriented x3, CN's II-XII intact bilaterally, moves all extremities, no focal motor deficits and no sensory deficits noted Sensorium / Orientation: alert, oriented to person, oriented to place and oriented to time; Negative for orientation impaired, lethargic or stuporous Motor Exam: strength 5/5 throughout Psych mental status grossly normal Appearance: Negative for unkempt Attitude: No agitated Mood & Affect: Negative for depressed, anxious or tearful Skin General Skin Exam: Negative for petechiae Lesions: no lesions Rashes: no rashes Trauma: no lacerations or abrasions; Negative for abrasion or laceration MDM MDM MDM Narrative Medical decision making narrative: 27-year-old fell cleaning x-rays were obtained in the right shoulder and wrist which were read as normal. No fracture or dislocation. Treated as a right shoulder strain and a right wrist sprain. Lab Data Labs: Right wrist x-ray 3 views interpreted by myself and the radiologist shows no acute abnormality. No fracture or dislocation. Right shoulder x-ray 4 views interpreted by myself and the radiologist shows no acute abnormality no fracture or dislocation. Radiography Diagnostic Testing: Clinical Impression(s) from Imaging Studies Shoulder X-Ray 07/17/23 15:45 IMPRESSION: Normal x-ray examination of the shoulder. Electronically Signed: Norman Ryder MD at 16:49 EST Reading Location ID and State: [address] [place] [address] , Service support , Wrist X-Ray 07/17/23 15:45 IMPRESSION: Normal x-ray examination of the wrist. Electronically Signed: Norman Ryder MD at 16:48 EST , Discharge Plan Triage Chief Complaint: Upper Extremity Injury ED Provider: Piter Bertrand Dx/Rx/DC Orders Clinical Impression: Muscle strain of right shoulder, Sprain of wrist, right Instructions: ED Muscle Strain, Extremity, ED Wrist Sprain Prescriptions: No Action + Iron 1 mg Tablet 1 tab PO DAILY ferrous sulfate [Iron (ferrous sulfate)] 325 mg (65 mg iron) Tablet 325 mg PO DAILY naproxen [Naprosyn] 500 mg tablet 500 mg PO BID PRN (Reason: pain) Qty: 20 0RF Primary Care Provider: David Mckinney Referrals: David Mckinney MD [Primary Care Provider] - 1 Week if not improving Activity Restrictions/Additional Instructions: Hot shower warm bath and heating pad to the right shoulder. You strained a muscle in your right shoulder. Ice and elevate the right wrist you have a right wrist sprain. Motrin, Advil or ibuprofen for pain and swelling. Tylenol for pain. Your x-rays were normal. Nothing broken or dislocated. This should progressively improve over the next week if not follow-up with your doctor to have it reevaluated. Disposition Disposition: Home, Self Care
--- OUTSIDE RECORDS SUMMARY | 2023-07-17 17:02 | XMS RPT_ITS | CCD ---
Author Name Unknown Address [address] [place] [address] Organization [facility] Care Team Providers Care Cell Reliner Name Role Phone Unavailable Primary Care Provider EVERARDO Pope Attending Unavailable Medications Current Medications Medication Drug Class(es) Dates Sig (Normalized) Sig (Original) amoxicillin 875 mg oral tablet (1 source) Penicillin-class Antibacterial Start: 06-07-2022 End: 06-14-2022 take 1 tablet by mouth twice daily amoxicillin (AMOXIL) 875 mg tablet Take 1 tablet by mouth twice daily for 7 days. 14 tablet 0 06/07/2022 06/14/2022 Active Problems Problem Classification Problem Date Documented Da te Episodic/Chronic Other upper respiratory infections (2 sources) Acute upper respiratory infection; Translations: [Acute upper respiratory infection, unspecified] Onset: 06-07-2022 Episodic Otitis media and related conditions (2 sources) Acute right otitis media; Translations: [Otitis media, unspecified, right ear] Onset: 06-07-2022 Episodic Results Test Name Value Interpretation Reference Range Facil ity Vital Signs Date Time Vital Sign Value Performing Clinician Faci lity 06-07-2022 18:58-0500 Body temperature 98.6 [degF] Everardo Patel APRN.CNP Work Phone: [facility] 06-07-2022 18:58-0500 Body weight 78.74 kg Everardo Patel APRN.CNP Work Phone: [facility] 06-07-2022 18:58-0500 Diastolic blood pressure 84 mm[Hg] Everardo Patel APRN.CNP Work Phone: [facility] 12-16-2022 18:58-0500 Heart rate 66 /min Evearrdo Patel APRN.RN CHEMICAL DEPENDENCY Work Phone: [facility] 06-07-2022 18:58-0500 Respiratory rate 18 /min Everardo Patel APRN.RN CHEMICAL DEPENDENCY Work Phone: [facility] 06-07-2022 18:58-0500 SaO2% (BldA) [Mass fraction] 100 % Everardo Patel APRN.RN CHEMICAL DEPENDENCY Work Phone: [facility] 06-07-2022 18:58-0500 Systolic blood pressure 136 mm[Hg] Everardo Patel APRN.RN CHEMICAL DEPENDENCY Work Phone: [facility] Encounters Encounter Date Encounter Type Care Provider Facility Start: 06-07-2022 End: 06-08-2022 ambulatory EVERARDO PATEL Facility:[facility] Start: 06-07-2022 End: 06-07-2022 Patient encounter procedure Everardo Patel APRN.RN CHEMICAL DEPENDENCY Work Phone: [facility] Plan of Treatment Date Care Activity Detail Author Start: 06-07-2022 End: 06-21-2022 Influenza virus A and B RNA and SARS-CoV-2 (COVID-19) N gene panel - Respiratory specimen by OFELIA with probe detection [facility] Work Phone: Payers Date Payer Category Payer Medicaid [facility] [id number] 2022-Present [phone] [address] [place] [address] Medicaid [id number] 2022 Medicaid [id number] Social History Date Type Detail Facility Start: 06-07-2022 Tobacco smoking stat us NMIS Never smoked tobacco [facility] Start: 06-07-2022 Tobacco use and exposure Smoke less tobacco non-user [facility] Start: 1995 Sex Assigned At Not on file [facility] Influenza virus A and B RNA and SARS-CoV-2 (COVID-19) N gene panel OFELIA+probe (Resp) 06-07-2022 Note Date & Type Note Facility 06-07-2022 Influenza virus A and B RNA and SARS-CoV-2 (COVID-19) N gene panel OFELIA+probe (Resp) COVID 19 RESULT: SARS-CoV-2 (Agent of COVID-19) Not Detected by RT-PCR or equivalent method. marina [id number] [employer] (NORBERT)_EUA This test was developed and its performance characteristics determined by [facility]'s [facility] [place]. This test has been authorized by FDA under an Emergency Use Authorization (EUA). This test has been validated in accordance with the FDA's Guidance Document Policy for Diagnostics Testing in Laboratories Certified to Perform High Complexity Testing under CLIA prior to Emergency use Authorization for Coronavirus Disease 2019 during the Public Health Emergency issued on August 21, 2019. Test performed by [facility], [facility] [place], [address] [place] [address]. INFLUENZA A PCR: Negative for Influenza A by RT-PCR INFLUENZA B PCR: Negative for Influenza B by RT-PCR [facility] Progress note 06-07-2022 Note Date & Type Note Facility 06-07-2022 Note HNO ID: [id number] Author: Everardo Patel APRN.RN CHEMICAL DEPENDENCY Service: ? Author Type: Nurse Practitioner Type: Progress Notes Filed: 06/07/2022 7:11 PM Note Text: CC: Patient presents with: Ear Pain: Bilateral ear pain and BROWNE-exposed to flu HPI: Nae Lawrence is a 26 year old female who presents to the office with complaint of head congestion and ear symptoms for a few days. Symptoms are worsening Associated symptoms includes ear pain. Denies fever, nausea, vomiting , and diarrhea. Treatments tried include nothing so far. with no relief of symptoms. Sick contacts: unknown. History of asthma, frequent episodes of bronchitis, chronic bronchitis, bronchiectasis or COPD: No Smoker: No Seasonal/environmental allergies: No The ROS is otherwise negative. The patient's pmh, medications, allergies, and past visits are reviewed. PHYSICAL EXAM: BP 136/84 Pulse 66 Temp 37 ?C (98.6 ?F) (Tympanic) Resp 18 Wt 78.7 kg (173 lb 9.6 oz) SpO2 100% General appearance: alert, cooperative, pleasant, in no acute distress Head: Normocephalic Eyes: EOM's intact, conjunctiva pink and moist, no icterus, sclera white, non-injected Ears: Right ear: External ear/canal- Normal, TM - erythematous, bulging. Left ear: External ear/canal- Normal, TM - erythematous Oropharynx:moist without lesions, No erythema, exudates or tonsillar hypertrophy. Heart: Negative. RRR without obvious murmur, gallop, or rubs. No ectopy. Lungs: clear to auscultation, without rales or wheeze, good air exchange History reviewed. No pertinent past medical history. No past surgical history on file. ALLERGIES Patient has no known allergies. MEDICATIONS amoxicillin (AMOXIL) 875 mg tablet Take 1 tablet by mouth twice daily for 7 days. No family history on file. Social History Tobacco Use Smoking status: Never Smokeless tobacco: Never ASSESSMENT/PLAN: 1. Acute otitis media, right - ICD9: 382.9, ICD10: H66.91 Amoxicillin twice a day for 7 days. Prescription instructions reviewed with patient as applicable. Potential red flag symptoms discussed with the patient. Reviewed appropriate action plan to take if red flag symptoms occur. Patient agreeable to treatment plan. Everardo Patel APRN.KAITLYNN [facility] Note 06-07-2022 Addendum Note - Everardo Patel APRN.KAITLYNN - 06/07/2022 7:56 PM EST Note Date & Type Note Facility 06-07-2022 Miscellaneous Notes Addended by: EVERARDO PATEL on: 06/07/2022 07:56 PM Modules accepted: Orders documented in this encounter [facility] History of Present illness Narrative 06-07-2022 Everardo Patel APRN.KAITLYNN - 06/07/2022 7:04 PM EST Note Date & Type Note Facility 06-07-2022 History of Presen t illness Narrative CC: Patient presents with: Ear Pain: Bilateral ear pain and BROWNE-exposed to flu HPI: Nae Lawrence is a 26 year old female who presents to the office with complaint of head congestion and ear symptoms for a few days. Symptoms are worsening Associated symptoms includes ear pain. Denies fever, nausea, vomiting , and diarrhea. Treatments tried include nothing so far. with no relief of symptoms. Sick contacts: unknown. History of asthma, frequent episodes of bronchitis, chronic bronchitis, bronchiectasis or COPD: No Smoker: No Seasonal/environmental allergies: No The ROS is otherwise negative. The patient's pmh, medications, allergies, and past visits are reviewed. PHYSICAL EXAM: BP 136/84 Pulse 66 Temp 37 C (98.6 F) (Tympanic) Resp 18 Wt 78.7 kg (173 lb 9.6 oz) SpO2 100% General appearance: alert, cooperative, pleasant, in no acute distress Head: Normocephalic Eyes: EOM's intact, conjunctiva pink and moist, no icterus, sclera white, non-injected Ears: Right ear: External ear/canal- Normal, TM - erythematous, bulging. Left ear: External ear/canal- Normal, TM - erythematous Oropharynx:moist without lesions, No erythema, exudates or tonsillar hypertrophy. Heart: Negative. RRR without obvious murmur, gallop, or rubs. No ectopy. Lungs: clear to auscultation, without rales or wheeze, good air exchange History reviewed. No pertinent past medical history. No past surgical history on file. ALLERGIES Patient has no known allergies. MEDICATIONS amoxicillin (AMOXIL) 875 mg tablet Take 1 tablet by mouth twice daily for 7 days. No family history on file. Social History Tobacco Use Smoking status: Never Smokeless tobacco: Never ASSESSMENT/PLAN: 1. Acute otitis media, right - ICD9: 382.9, ICD10: H66.91 Amoxicillin twice a day for 7 days. Prescription instructions reviewed with patient as applicable. Potential red flag symptoms discussed with the patient. Reviewed appropriate action plan to take if red flag symptoms occur. Patient agreeable to treatment plan. Everardo Patel APRN.KAITLYNN documented in this encounter [facility] Evaluation note Note Date & Type Note Facility documented in this encounter [facility] Health Concerns Infection Onset Date Last Indicated Resolved Time COVID-19 Rule-Out 06/07/2022 06/07/2022 Summary Purpose Family History No Family History Records Found Advance Directives No Advanced Directives Records Found Additional Source Comments Source Comments (unrecognize d section and content) In the event this informatio n is protected by the Federal Confidentiality of Alcohol and Drug Abuse Patient Records regulations: The Federal rules restrict any use of the information to criminally investigate or prosecute any alcohol or drug abuse patient.[facility] Reason for Visit (unrecogniz ed section and content) INFORMATION SOURCE (unrecogn ized section and content) FOR RECORDS PERTAINING TO PATIENTS WHO ARE OR HAVE BEEN ENROLLED IN A CHEMICAL DEPENDENCY/SUBSTANCEABUSE PROGRAM, SOME INFORMATION MAY BE OMITTED. This clinical summary was aggregated from multiple sources. Caution should be exercised in using it in the provision of clinical care. This summary normalizes information from multiple sources, and as a consequence, information in this document may materially change the coding, format and clinical context of patient data. In addition, data may be omitted in some cases. CLINICAL DECISIONS SHOULD BE BASED ON THE PRIMARY CLINICAL RECORDS. [facility] [employer] provides no warranty or guarantee of the accuracy or completeness of information in this document.
== END 2023-07-17 17:02 | disposition home or self-care (01) ==
LOC: ED 16:59
PROVIDERS: Emergency Provider Emergency Medicine; PCP Family Medicine; Visit Provider Emergency Medicine
DX: S46.911A Strain of unspecified muscle, fascia and tendon at shoulder and upper arm level, right arm, initial encounter (principal); Z87.891 Personal history of nicotine dependence; W19.XXXA Unspecified fall, initial encounter; S63.91XA Sprain of unspecified part of right wrist and hand, initial encounter
CPT/HCPCS: 73030; 73110; 99282

== ENCOUNTER 2023-08-10 10:17 | Emergency (ER) | payer MEDICAID, SELFPAY ==
[2023-08-10 10:18] VITALS: BP 112/46; PULSE 82; RESP 18; TEMP 36.4; O2SAT 99; BMI 30.2
--- NOTE | 2023-08-10 10:28 | EX.ED.DYSGE1 ---
HPI History of Present Illness Chief Complaint: General Illness [facility] PFS Medical History Anxiety Cervical myofascial strain History of placental abruption depression (spontaneous vaginal delivery) Trauma Home Medications [id number]-FA 1 mg tablet 1 tab PO DAILY 09/13/21 [History Last Taken 02/17/22 09:00] ferrous sulfate 325 mg (65 mg iron) tablet (Iron (ferrous sulfate)) 325 mg PO DAILY 02/17/22 [History Last Taken 02/14/22 21:00] naproxen 500 mg tablet (Naprosyn) 500 mg PO BID PRN pain #20 tabs 01/08/23 [Rx Last Taken Unknown] montelukast 10 mg tablet 10 mg PO DAILY 08/10/23 [History Last Taken Unknown] ondansetron 4 mg disintegrating tablet 4 mg PO Q8H PRN PRN Nausea #10 tabs 08/10/23 [Rx Last Taken Unknown] sertraline 100 mg tablet 100 mg PO Q24H 08/10/23 [History Last Taken Unknown] venlafaxine 37.5 mg capsule,extended release 24 hr 37.5 mg PO DAILY 08/10/23 [History Last Taken Unknown] Allergy/AdvReac Type Severity Reaction Status Date / Time No Known Allergies Allergy Verified 08/10/23 10:39 Social History number of children: 2 Smoking Status: Former smoker alcohol intake: former 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 EXAM Physical Exam Const Vital Signs: 08/10/23 10:18 08/10/23 10:42 08/10/23 11:54 Temperature 97.5 F L 98.1 F Temperature Source Temporal Oral Pulse Rate 82 62 Respiratory Rate 18 14 Respiratory Effort Normal Non-Labored Respiratory Pattern Normal Blood Pressure 112/46 L 131/76 H Blood Pressure Mean 68 94 Pulse Ox 99 100 Oxygen Delivery Method Room Air Room Air 08/10/23 12:47 Temperature 98.1 F Temperature Source Pulse Rate 62 Respiratory Rate 14 Respiratory Effort Respiratory Pattern Blood Pressure 124/87 H Blood Pressure Mean 99 Pulse Ox 100 Oxygen Delivery Method MDM MDM MDM Narrative Medical decision making narrative: HISTORY OF PRESENT ILLNESS: 27-year-old female presents with cough, congestion, nausea vomiting for last 2 days. No sick contacts at home and her . States he did not get tested. She denies any chest pain, shortness of breath or abdominal pain. Notes last episode of vomitus was this morning. Denies any hematemesis or bilious nature to her vomitus. Denies any urinary complaints. Notes body aches, headache. Patient denies sudden onset or thunderclap headache, denies maximal intensity within 1 minute, vomiting, neck pain, stiffness, changes in vision, fever, history malignancy, syncope, or seizures associated with headache. She denies any focal weakness, numbness or loss of sensation, denies any incoordination or loss ability to move. She denies any neck stiffness. REVIEW OF SYSTEMS: Pertinent positives: Cough, congestion, nausea vomiting Pertinent negatives: Chest pain, shortness of breath, focal weakness, photophobia or neck stiffness PHYSICAL EXAM: Nursing triage notes reviewed, Vital signs reviewed Constitutional: please see mdm HENT: MMM, no tonsillar edema, exudates Eyes: Pupils equal round and reactive to light, Extraocular muscles intact Neck: No stridor, no JVD, full neck ROM Lungs: Clear to auscultation, No wheezing or rales. No increased work of breathing, no conversational dyspnea, no accessory muscle use, no nasal flaring. No respiratory distress noted Heart: Regular rate and rhythm, No murmurs, No rubs and No gallops, 2+ distal pulses (radial, femoral, posterior tibial) in all extremities Abdomen: Soft, there is no tenderness, rigidity, rebound or guarding, no obvious peritoneal signs, no palpable pulsatile abdominal masses, no auscultated abdominal bruit : No CVAT Extremities: No edema Neuro: Alert and oriented x3, neuro exam at baseline, cranial nerves II through XII are intact. No pain with extraocular muscle movement. There is negative test of skew. 5 of 5 strength in upper and lower extremities in flexion extension. Intact sensation to light touch in upper and lower extremity dermatomes. No truncal or extremity ataxia. No dysdiadochokinesia. Normal gait. 2+ reflexes in upper and lower extremities. No meningeal signs. Negative Babinski. NIH of 0. Skin: No rash or lesions noted MEDICAL DECISION MAKING: Chief Complaint: Viral URI External records reviewed: Seen for similar symptoms in April 2023 Factors affecting care: none [facility] Narrative: The patient was initially hemodynamically stable. Exam without focal neurologic deficit, cardiopulmonary abnormality. Abdomen soft nontender. I considered the following differential diagnosis: COVID, flu, RSV, bacterial pneumonia, dehydration, electrolyte disturbance, I obtained a broad lab and imaging workup to further elucidate the etiology patient complaints. Symptomatic treatment in form of IV fluids and Zofran ALL IMAGES (IF OBTAINED) HAVE BEEN PERSONALLY REVIEWED AND INTERPRETED BY MYSELF. I have personally reviewed the patient's chest x-ray. Chest x-ray is unremarkable for pulmonary edema, pneumothorax, pneumonia or focal cardiopulmonary abnormality. CBC without leukocytosis, severe anemia, no thrombocytopenia. BMP without evidence of significant electrolyte abnormalities, no anion gap, no acute kidney injury. Upon reassessment patient noted complete resolution of symptoms. She was updated on results. She is appropriate discharge home. There is no clear life or limb threatening etiology that could be ascertained here in the emergency department. Patient was provided with a work note. She is given strict return precautions and follow-up instructions The patient and/or family, caregivers express understanding. The patient and/or family, caregivers agrees with the plan. Shared decision making: I will have a discussion with the patient and or visitors regarding risk/benefits of further testing or admission. They will be made aware of of the risk/benefits inherent in this decision they will be given the opportunity to voice understanding. Total critical care time today provided was at least 0 minutes. This excludes separately billable procedures. Critical care time (if documented) is secondary to the patient having high probability of clinically significant/life threatening deterioration in the patient's condition which required my urgent intervention. Impression: 1. Viral URI Dispo: Discharge This note was generated with [employer] dictation software. It may contain incorrect words, spelling, and punctuation that were not noted in review of the chart prior to signing. Lab Data Labs: Laboratory Results - last 24 hr 08/10/23 08/10/23 11:00 11:50 WBC 4.8 RBC 4.42 Hgb 12.1 Hct 37.7 MCV 85.3 MCH 27.4 MCHC 32.1 RDW Std Deviation 39.9 RDW Coeff of Joe 13.1 Plt Count 187 MPV 12.2 H Immature Gran % (Auto) 0.200 Neut % (Auto) 50.9 Lymph % (Auto) 32.8 [place] % (Auto) 9.4 Eos % (Auto) 6.1 H Baso % (Auto) 0.6 Absolute Neuts (auto) 2.4 Absolute Lymphs (auto) 1.57 Nucleated RBC % 0 Sodium 139 Potassium 3.8 Chloride 112 H Carbon Dioxide 24.0 Anion Gap 3 L BUN 9 Creatinine 0.60 Estim Creat Clear Calc 155.99 Est GFR (MDRD) Af Amer 156 Est GFR (MDRD) Non-Af 129 BUN/Creatinine Ratio 15.1 Glucose 85 Calcium 8.7 Total Bilirubin 0.30 AST 25 ALT 46 Alkaline Phosphatase 104 Total Protein 7.0 Albumin 3.3 Globulin 3.7 Albumin/Globulin Ratio 0.9 Urine Color Yellow Urine Clarity Sl. Cloudy Urine pH 6.0 Ur Specific [place] 1.015 Urine Protein Negative Urine Glucose (UA) Normal Urine Ketones Negative Urine Occult Blood Negative Urine Nitrite Negative Urine Bilirubin Negative Urine Urobilinogen 1 H Ur Leukocyte Esterase 500 H Urine RBC 0 SEEN Urine WBC 5-10 SEEN Ur Squamous Epith Cells 10-25 SEEN Urine Bacteria 3+ Urine Mucus 0 SEEN Urine Test Negative Radiography Diagnostic Testing: Clinical Impression(s) from Imaging Studies Chest X-Ray 08/10/23 10:44 IMPRESSION: No focal infiltrate or edema. Electronically Signed: Nicolas Alvarado MD at 11:11 EST , Discharge Plan Triage Chief Complaint: General Illness ED Provider: Kuldeep Vanegas Dx/Rx/DC Orders Clinical Impression: Acute dehydration, Viral upper respiratory infection, Nausea & vomiting Instructions: ED URI, Viral, No Abx (Adult), ED Vomiting (Adult) Prescriptions: New ondansetron 4 mg tablet,disintegrating 4 mg PO Q8H PRN PRN (Reason: Nausea) Qty: 10 0RF No Action + Iron 1 mg Tablet 1 tab PO DAILY ferrous sulfate [Iron (ferrous sulfate)] 325 mg (65 mg iron) Tablet 325 mg PO DAILY naproxen [Naprosyn] 500 mg tablet 500 mg PO BID PRN (Reason: pain) Qty: 20 0RF venlafaxine 37.5 mg capsule,extended release 24hr 37.5 mg PO DAILY Patient Comments: TAKE 1 CAPSULE BY MOUTH DAILY sertraline 100 mg tablet 100 mg PO Q24H Patient Comments: TAKE 1 TABLET BY MOUTH ONCE DAILY IN THE MORNING montelukast 10 mg tablet 10 mg PO DAILY Patient Comments: TAKE 1 TABLET BY MOUTH DAILY DIRECTED Stand Alone Forms: ED Work / School Excuse Primary Care Provider: David Mckinney Referrals: David Mckinney MD [Primary Care Provider] - Activity Restrictions/Additional Instructions: Thank you for trusting us with your care today! Given diagnosed with a viral upper respiratory tract infection, dehydration. Please try to take additional fluids by mouth I recommend Pedialyte, body armor or Gatorade. Please take Tylenol (2 pills, 650 mg), ibuprofen (2 pills, 400 mg) every 6 hours as needed for pain and fever control. Please take Zofran as needed for nausea and vomiting Please return to the emergency department if your symptoms change or worsen. Please follow with your primary care physician for further outpatient evaluation and management. Disposition Disposition: Home, Self Care Discharge Date/Time: 08/10/23 12:48
--- NOTE | 2023-08-10 10:44 | RAD_ITS ---
STUDY: X-RAY CHEST REASON FOR EXAM: Female, 27 years old. Cough TECHNIQUE: PA and lateral views of the chest. COMPARISON: None. FINDINGS: There are monitoring devices. Artifact from jewelry The lungs are clear and expanded. There is no demonstrated pleural abnormality. Normal size heart. Normal mediastinum and hermes. Normal visualized pulmonary arteries. Normal visualized aortic arch and descending thoracic aorta. There is mild wedging and chronic compression fractures of lower thoracic spine. Normal visualized ribs, clavicles, and shoulders. There is no demonstrated abnormality of the visualized soft tissue structures of the upper abdomen. RAD/Chest PA and Lateral IMPRESSION: No focal infiltrate or edema. Electronically Signed: Nicolas Alvarado MD at 11:11 EST ,
[2023-08-10] MEDS: 0.9% Normal Saline (1000mL) 1,000 ML 1000 ML IV (10:49)
[2023-08-10] MEDS: Ondansetron 4 MG/2 ML Vial IV (10:55)
--- OUTSIDE RECORDS SUMMARY | 2023-08-10 10:59 | XMS RPT_ITS | CCD ---
Author Name Unknown Address [address] [place] [address] Organization [facility] Care Team Providers Care Tax Adjuster Name Role Phone Unavailable Primary Care Provider [...] 98.6 [degF] Everardo Patel APRN.CNP Work Phone: [facility] 06-07-2022 18:58-0500 Body weight 78.74 kg Everardo Patel APRN.CNP Work Phone: [facility] 06-07-2022 18:58-0500 Diastolic blood pressure 84 mm[Hg] Everardo Patel APRN.CNP Work Phone: [facility] 12-16-2022 18:58-0500 Heart rate 66 /min Everardo Patel APRN.CUT OUT OPERATOR Work Phone: [facility] 06-07-2022 18:58-0500 Respiratory rate 18 /min Everardo Patel APRN.CUT OUT OPERATOR Work Phone: [facility] 06-07-2022 18:58-0500 SaO2% (BldA) [Mass fraction] 100 % Everardo Patel APRN.CUT OUT OPERATOR Work Phone: [facility] 06-07-2022 18:58-0500 Systolic blood pressure 136 mm[Hg] Everardo Patel APRN.CUT OUT OPERATOR Work Phone: [facility] Encounters Encounter Date Encounter Type Care Provider Facility Start: 06-07-2022 End: 06-08-2022 ambulatory EVERARDO PATEL Facility:[facility] Start: 06-07-2022 End: 06-07-2022 Patient encounter procedure Everardo Patel APRN.CUT OUT OPERATOR Work Phone: [facility] Plan of Treatment Date Care Activity Detail Author Start: 06-07-2022 End: 06-21-2022 Influenza virus A and B RNA and SARS-CoV-2 (COVID-19) N gene panel - Respiratory specimen by OFELIA with probe detection [facility] Work Phone: Payers Date Payer Category Payer Medicaid [facility] [id number] 2022-Present [phone] [address] [place] [address] Medicaid [id number] 2022 Medicaid [id number] Social History Date Type Detail Facility Start: 06-07-2022 Tobacco smoking stat us AKIS Never smoked tobacco [facility] Start: 06-07-2022 Tobacco use and exposure Smoke less tobacco non-user [facility] Start: 1995 Sex Assigned At Not on file [facility] Influenza virus A and B RNA and SARS-CoV-2 (COVID-19) N gene panel OFELIA+probe (Resp) 06-07-2022 Note Date & Type Note Facility 06-07-2022 Influenza virus A and B RNA and SARS-CoV-2 (COVID-19) N gene panel OFELIA+probe (Resp) COVID 19 RESULT: SARS-CoV-2 (Agent of COVID-19) Not Detected by RT-PCR or equivalent method. [place] [id number] (NORBERT)_EUA This test was developed and its performance characteristics determined by [facility]'s [facility] [place]. This test has been authorized by FDA under an Emergency Use Authorization (EUA). This test has been validated in accordance with the FDA's Guidance Document Policy for Diagnostics Testing in Laboratories Certified to Perform High Complexity Testing under CLIA prior to Emergency use Authorization for Coronavirus Disease 2019 during the Public Health Emergency issued on August 21, 2019. Test performed by [facility], [facility] [place], [address] [place] [address]. INFLUENZA A PCR: Negative for Influenza A by RT-PCR INFLUENZA B PCR: Negative for Influenza B by RT-PCR [facility] Progress note 06-07-2022 Note Date & Type Note Facility 06-07-2022 Note HNO ID: [id number] Author: Everardo Patel APRN.CUT OUT OPERATOR Service: ? Author Type: Nurse Practitioner Type: [...] agreeable to treatment plan. Everardo Patel APRN.KAITLYNN [facility] Note 06-07-2022 Addendum Note - Everardo Patel APRN.KAITLYNN - 06/07/2022 7:56 PM EST Note Date & Type Note Facility 06-07-2022 Miscellaneous Notes Addended by: EVERARDO PATEL on: 06/07/2022 07:56 PM Modules accepted: Orders documented in this encounter [facility] History of Present illness Narrative 06-07-2022 [...] Everardo Patel APRN.KAITLYNN documented in this encounter [facility] Evaluation note Note Date & Type Note Facility documented in this encounter [facility] Health Concerns Infection Onset Date Last [...] or prosecute any alcohol or drug abuse patient.[facility] Reason for Visit (unrecogniz ed section [...] BE BASED ON THE PRIMARY CLINICAL RECORDS. [facility] [employer] provides no warranty or guarantee of the accuracy or completeness of information in this document.
[2023-08-10 11:08] LABS: Absolute Lymphocyte Count 1.57 X10^3/uL (0.83-4.51); Absolute Neutrophil Count 2.4 X10^3/uL (2.0-7.7); Basophil# 0.03 X10^3/uL; Basophil% 0.6 % (0-1); Eosinophil# 0.29 X10^3/uL; Eosinophils% 6.1 % (0-5); Hematocrit 37.7 % (37-47); Hemoglobin 12.1 g/dL (12.0-15.0); Lymphocyte # 1.57 X10^3/ul (0.83-4.51); Lymphocyte % 32.8 % (19-41); Mean Corp Hgb Conc 32.1 g/dL (32-36); Mean Corpuscular Hgb 27.4 pg (27.0-32.0); Mean Corpuscular Volume 85.3 fL (81-99); Mean Platelet Vol. 12.2 fl (6.2-12.0); Monocyte# 0.45 X10^3/uL; Monocyte% 9.4 % (0-10); NRBC Flagged by Analyzer 0 % (0-5); Neutrophil # 2.44 X10^3/uL (2.7-7.7); Neutrophil % 50.9 % (47-70); Platelet Count 187 K/mm3 (150-450); RBC Distribution Width CV 13.1 % (11.6-14.6); RBC Distribution Width SD 39.9 fl (35.1-43.9); Red Blood Count 4.42 M/mm3 (4.2-5.4); White Blood Count 4.8 K/mm3 (4.4-11.0)
[2023-08-10 11:25] LABS: ALB/GLOB Ratio 0.9 RATIO (0.9-2.4); AST(SGOT) 25 U/L (15-37); Alanine Aminotransfer ALT/SGPT 46 U/L (13-56); Albumin, Serum 3.3 g/dL (3.2-5.0); Alkaline Phosphatase 104 U/L (45-117); Anion Gap 3 (5-15); BUN 9 mg/dL (7-18); BUN/Creat Ratio 15.1 RATIO (10-20); Calcium,Total 8.7 mg/dL (8.5-10.1); Chloride 112 mmol/L (98-107); EST Glomerular Filtration Rate 129 mL/min (>60); Est Glom Filt Rate - Afr Amer 156 mL/min (>60); Estimated Creatinine Clearance 155.99 ml/min; Globulin 3.7 g/dL (2.2-4.2); Glucose 85 mg/dL (74-106); Potassium 3.8 mmol/L (3.5-5.1); Sodium Level 139 mmol/L (136-145)
[2023-08-10 11:54] VITALS: BP 131/76; PULSE 62; RESP 14; TEMP 36.7; O2SAT 100
[2023-08-10 11:57] LABS: Mucous, Urine 0 SEEN /hpf (<or=2+); Red Blood Cells-Urine 0 SEEN /hpf (0-5)
[2023-08-10 12:01] LABS: Color, Urine Yellow (Yellow); Glucose, Dipstick Normal (Normal); Ketone-Dipstick Negative (Negative); Leukocyte Esterase-Dipstick 500 /ul (Negative); Nitrite-Dipstick Negative (Negative); Occult Blood-Urine Negative /ul (Negative); Protein-Dipstick Negative (Negative); Specific Gravity, Urine 1.015 (1.002-1.030); Urine Bilirubin Dipstick Negative (Negative); Urine Clarity Sl. Cloudy (Clear); Urine Urobilinogen 1 mg/dl (Normal)
[2023-08-10 12:07] LABS: Bacteria 3+ /hpf (None Seen); Squamous Epithelial Cells - UA 10-25 SEEN /hpf (5-10); White Blood Cells 5-10 SEEN /hpf (0-5)
[2023-08-10 12:35] LABS: Internal QC Validated? YES +Cl - CLEAR BKGD; Pregnancy, Urine Negative Negative
[2023-08-10 12:47] VITALS: BP 124/87; PULSE 62; RESP 14; TEMP 36.7; O2SAT 100
== END 2023-08-10 12:48 | disposition home or self-care (01) ==
PROVIDERS: Emergency Provider Emergency Medicine; PCP Family Medicine; Visit Provider Emergency Medicine
DX: J06.9 Acute upper respiratory infection, unspecified (principal); Z87.891 Personal history of nicotine dependence; R11.2 Nausea with vomiting, unspecified; E86.0 Dehydration; F41.9 Anxiety disorder, unspecified; Z79.899 Other long term (current) drug therapy
CPT/HCPCS: 71046; 80053; 81001; 81025; 85025; 87631; 96361; 96374; 99284; J7030; A4216; J2405

== ENCOUNTER 2023-11-23 08:25 | Emergency (ER) | payer MEDICAID, SELFPAY ==
[2023-11-23 08:25] VITALS: BP 123/79; PULSE 81; RESP 16; TEMP 36; O2SAT 97; BMI 31.4
--- NOTE | 2023-11-23 09:22 | US_ITS ---
INDICATION: abdominal pain EXAMINATION: Ultrasound US OB Transvaginal TECHNIQUE: Transvaginal (for optimal evaluation of the adnexa) pelvic ultrasound was performed. Grayscale, spectral waveform, and color flow Doppler evaluation of the adnexa. COMPARISON: November 04, 2021 FINDINGS: UTERUS: 11.4 x 6.3 x 8.4 cm. RIGHT OVARY: 3.9 x 2.0 x 1.9 cm. Normal. LEFT OVARY: 3.6 x 1.5 x 2.8 cm. There is a questionable 2.2 x 1.0 x 2.8 cm cyst within the left ovary. The Doppler flow to the left ovary is within normal limits. FREE FLUID: None. INTRAUTERINE GESTATIONAL SAC: Single. The mean sac diameter measures 2.47 cm. YOLK SAC: Identified POLE: Identified. The crown-rump length measures 0.97 cm. ESTIMATED GESTATION AGE: 7 weeks and 3 days. HEART MOTION: 124 bpm. PLACENTA: Not visualized due to age. SUBCHORIONIC HEMORRHAGE: None. AMNIOTIC FLUID: Qualitatively normal. US/Transvaginal w/Preg US IMPRESSION: Single live intrauterine . Estimated gestational age is 7 weeks and 3 days. Electronically Signed: Carly Glynn MD at 10:21 EDT ,
[2023-11-23 10:29] LABS: hCG Titer Quant., Serum 54925 mIU/mL (1-3)
[2023-11-23 10:39] LABS: Bacteria 0 SEEN /hpf (None Seen); Mucous, Urine 0 SEEN /hpf (<or=2+); Red Blood Cells-Urine 0 SEEN /hpf (0-5)
[2023-11-23 10:44] LABS: Color, Urine Yellow (Yellow); Glucose, Dipstick Normal (Normal); Ketone-Dipstick Negative (Negative); Leukocyte Esterase-Dipstick 25 /ul (Negative); Nitrite-Dipstick Negative (Negative); Occult Blood-Urine Negative /ul (Negative); Protein-Dipstick Negative (Negative); Urine Bilirubin Dipstick Negative (Negative); Urine Clarity Clear (Clear); Urine Urobilinogen Normal (Normal)
[2023-11-23 10:58] LABS: Squamous Epithelial Cells - UA 0-5 SEEN /hpf (5-10); White Blood Cells 0-5 SEEN /hpf (0-5)
[2023-11-23 11:00] VITALS: BP 120/68; PULSE 80; RESP 16; O2SAT 100
[2023-11-23 11:13] VITALS: BP 124/64; PULSE 80; RESP 16; TEMP 36.6; O2SAT 100
--- NOTE | 2023-11-23 15:46 | ED.VIS.GI ---
HPI HPI - GI History of Present Illness Chief Complaint: Abd Pain Narrative Narrative: 27-year-old female presenting with abdominal pain. She describes it is intermittent. Sometimes it is in the right side and sometimes to the left. She states she is 7 and half weeks . She is already had an ultrasound performed. She states nobody has done any blood work. Denies urinary or vaginal complaints. Denies fever or chills. She is not currently in any pain. [facility], [facility] Medical History History of placental abruption Trauma depression Anxiety Cervical myofascial strain (spontaneous vaginal delivery) Home Medications ?Medication ?Instructions ?Recorded ?Last Taken ?Type ihnyrhdn-yru-Hh-FA 1 mg 1 tab PO DAILY 09/13/21 02/17/22 09:00 History tablet ferrous sulfate 325 mg (65 mg 325 mg PO DAILY 02/17/22 02/14/22 21:00 History iron) tablet (Iron (ferrous sulfate)) naproxen 500 mg tablet (Naprosyn) 500 mg PO BID PRN pain #20 tabs 01/08/23 Unknown Rx montelukast 10 mg tablet 10 mg PO DAILY 08/10/23 Unknown History ondansetron 4 mg disintegrating 4 mg PO Q8H PRN PRN Nausea #10 tabs 08/10/23 Unknown Rx tablet sertraline 100 mg tablet 100 mg PO Q24H 08/10/23 Unknown History venlafaxine 37.5 mg 37.5 mg PO DAILY 08/10/23 Unknown History capsule,extended release 24 hr Allergy/AdvReac Type Severity Reaction Status Date / Time No Known Allergies Allergy Verified 11/23/23 08:27 Social History number of children: 2 Smoking Status: Current every day smoker tobacco type: cigarettes alcohol intake: former 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 ROS ROS ED Constitutional Constitutional ED: Denies chills, fever(s) or sweats Eyes Eyes: Denies blurry vision or change in vision ENT ENT ED: Denies ear pain or sore throat Cardiovascular Cardiovascular: Denies chest pain, palpitations or racing heartbeat Respiratory/Chest Respiratory/Chest: Denies cough, dyspnea or sputum Gastrointestinal Gastrointestinal: Reports abdominal pain; Denies constipation, diarrhea, nausea or vomiting Genitourinary Genitourinary ED: Denies dysuria, hematuria or urinary frequency Musculoskeletal Musculoskeletal: Denies arthralgias, myalgias or neck pain Integumentary Denies abscess, Abrasions or rash Neurologic Neurologic: Denies headache(s), paresthesias or weakness Psychiatric Psychiatric: Denies anxiety, depression, suicidal ideation or suicidal thoughts Endocrine Endocrinology: Denies polydipsia or polyuria EXAM Physical Exam Const Vital Signs: 11/23/23 08:25 11/23/23 11:00 11/23/23 11:13 Temperature 96.8 F L 98 F Temperature Source Temporal Pulse Rate 81 80 80 Respiratory Rate 16 16 16 Blood Pressure 123/79 H 120/68 124/64 H Blood Pressure Mean 93 85 84 Pulse Ox 97 100 100 Oxygen Delivery Method Room Air Positive well nourished General Appearance ED: NAD HEENT Reports moist mucous membranes normocephalic and atraumatic Resp normal respiratory effort Cardio regular rate and regular rhythm GI non-tender and non-distended Back/Spine no CVA tenderness Neuro CN's II-XII intact bilaterally Sensorium / Orientation: alert Motor Exam: strength 5/5 throughout Psych mental status grossly normal Skin no wounds MDM MDM MDM Narrative Medical decision making narrative: 27-year-old female presenting with abdominal pain. Differential includes for , round ligament pain, ectopic . She is currently 7-1/2 weeks she believes. She states that her first ultrasound was done to see how far along she was because because she was not sure. On examination she does not have any pain right now. Urinalysis is negative. hCG is 54,925. Obtained transvaginal ultrasound shows live intrauterine at 7 weeks 3 days. No other abnormalities noted heart tones noted to be 124 bpm. Patient counseled on findings. She will follow-up with OB. She does not know the name of the OB she is going to follow-up with which she has the information at home. Impression: 1. First trimester 2. Abdominal pain Lab Data Labs: Laboratory Results - last 24 hr 11/23/23 11/23/23 09:40 10:30 HCG, Quant [id number] H Urine Color Yellow Urine Clarity Clear Urine pH 8.0 Ur Specific [place] 1.010 Urine Protein Negative Urine Glucose (UA) Normal Urine Ketones Negative Urine Occult Blood Negative Urine Nitrite Negative Urine Bilirubin Negative Urine Urobilinogen Normal Ur Leukocyte Esterase 25 H Urine RBC 0 SEEN Urine WBC 0-5 SEEN Ur Squamous Epith Cells 0-5 SEEN Urine Bacteria 0 SEEN Urine Mucus 0 SEEN Radiography Diagnostic Testing: Clinical Impression(s) from Imaging Studies Obstetrics Ultrasound 11/23/23 09:22 IMPRESSION: Single live intrauterine . Estimated gestational age is 7 weeks and 3 days. Electronically Signed: Carly Glynn MD at 10:21 EDT , Discharge Plan Triage Chief Complaint: Abd Pain ED Provider: Phillip Bishop Dx/Rx/DC Orders Instructions: ED Abdominal Pain, Early Prescriptions: No Action + Iron 1 mg Tablet 1 tab PO DAILY ferrous sulfate [Iron (ferrous sulfate)] 325 mg (65 mg iron) Tablet 325 mg PO DAILY naproxen [Naprosyn] 500 mg tablet 500 mg PO BID PRN (Reason: pain) Qty: 20 0RF venlafaxine 37.5 mg capsule,extended release 24hr 37.5 mg PO DAILY Patient Comments: TAKE 1 CAPSULE BY MOUTH DAILY sertraline 100 mg tablet 100 mg PO Q24H Patient Comments: TAKE 1 TABLET BY MOUTH ONCE DAILY IN THE MORNING montelukast 10 mg tablet 10 mg PO DAILY Patient Comments: TAKE 1 TABLET BY MOUTH DAILY DIRECTED ondansetron 4 mg tablet,disintegrating 4 mg PO Q8H PRN PRN (Reason: Nausea) Qty: 10 0RF Primary Care Provider: David Mckinney Referrals: David Mckinney MD [Primary Care Provider] - Print Language: Guamanian Disposition Disposition: Home, Self Care Discharge Date/Time: 11/23/23 11:16
== END 2023-11-23 11:16 | disposition home or self-care (01) ==
PROVIDERS: Emergency Provider Student in an Organized Health Care Education/Training Program; PCP Family Medicine; Visit Provider Student in an Organized Health Care Education/Training Program
DX: O26.891 Other specified pregnancy related conditions, first trimester (principal); F17.200 Nicotine dependence, unspecified, uncomplicated; O99.331 Smoking (tobacco) complicating pregnancy, first trimester; Z3A.01 Less than 8 weeks gestation of pregnancy; R10.9 Unspecified abdominal pain
CPT/HCPCS: 76817; 81001; 84702; 99282; A4216

== ENCOUNTER 2023-11-30 09:04 | Emergency (ER) | payer MEDICAID, SELFPAY ==
[2023-11-30 09:05] VITALS: BP 122/88; PULSE 100; RESP 16; TEMP 36.3; O2SAT 100; BMI 31.2
[2023-11-30 09:07] VITALS: BP 122/88; PULSE 100; RESP 16; TEMP 36.3; O2SAT 100
[2023-11-30 10:07] VITALS: BP 122/96; PULSE 97; RESP 16; TEMP 36.7; O2SAT 97
--- NOTE | 2023-11-30 10:13 | EDS_ITS ---
HPI History of Present Illness Chief Complaint: Chest Other Informant: patient Onset/Context/Timing Onset: Today Context: Sudden Onset Timing: Continuous Quality: Sharp Location: Right chest Worsened by: Deep breathing, movement Relieved by: Rest Narrative Narrative: Patient presents with right-sided chest pain that began today. Patient states it began rather suddenly. Patient states it is over the right lower chest. Patient states it is worse with deep breathing and with movement. Patient states it is better with rest. Patient describes her pain as stabbing. Patient states it is constant. Patient denies any trauma or injury. Patient admits to some nausea and vomiting. Patient denies any shortness of breath. Patient denies any fevers or chills. Patient states she was recently started on amoxicillin for bacterial bronchitis. Patient states she had a culture done which showed haemophilus influenza B. [facility] Medical History History of placental abruption Trauma depression Anxiety Cervical myofascial strain (spontaneous vaginal delivery) Home Medications ?Medication ?Instructions ?Recorded ?Last Taken ?Type wnzklrba-hpm-Mx-FA 1 mg 1 tab PO DAILY 09/13/21 02/17/22 09:00 History tablet ferrous sulfate 325 mg (65 mg 325 mg PO DAILY 02/17/22 02/14/22 21:00 History iron) tablet (Iron (ferrous sulfate)) naproxen 500 mg tablet (Naprosyn) 500 mg PO BID PRN pain #20 tabs 01/08/23 Unknown Rx montelukast 10 mg tablet 10 mg PO DAILY 08/10/23 Unknown History ondansetron 4 mg disintegrating 4 mg PO Q8H PRN PRN Nausea #10 tabs 08/10/23 Unknown Rx tablet sertraline 100 mg tablet 100 mg PO Q24H 08/10/23 Unknown History venlafaxine 37.5 mg 37.5 mg PO DAILY 08/10/23 Unknown History capsule,extended release 24 hr Allergy/AdvReac Type Severity Reaction Status Date / Time No Known Allergies Allergy Verified 11/30/23 09:07 Surgical History no surgical history no surgical history Social History number of children: 2 Smoking Status: Current every day smoker tobacco type: cigarettes alcohol intake: former 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 ROS ROS ED Constitutional Constitutional ED: Denies chills or fever(s) Eyes Eyes: Denies blurry vision or change in vision ENT ENT ED: Denies rhinorrhea or sore throat Cardiovascular Cardiovascular: Reports chest pain; Denies palpitations Respiratory/Chest Respiratory/Chest: Denies cough or dyspnea Gastrointestinal Gastrointestinal: Reports nausea and vomiting Genitourinary Genitourinary ED: Denies dysuria or hematuria Musculoskeletal Musculoskeletal: Denies back pain or neck pain Integumentary Denies abscess or rash Neurologic Neurologic: Reports headache(s); Denies weakness Allergic/Immunologic Allergic/Immunologic ED: Denies mouth swelling or urticaria EXAM Physical Exam Const Vital Signs: 11/30/23 09:05 11/30/23 09:07 11/30/23 10:07 Temperature 97.4 F L 97.4 F L 98.1 F Temperature Source Temporal Temporal Oral Pulse Rate 100 100 97 Respiratory Rate 16 16 16 Respiratory Effort Blood Pressure 122/88 H 122/88 H 122/96 H Blood Pressure Mean 99 99 104 Pulse Ox 100 100 97 Oxygen Delivery Method Room Air Room Air Room Air 11/30/23 11:00 11/30/23 11:14 11/30/23 11:30 Temperature 97.2 F L 97.8 F Temperature Source Temporal Oral Pulse Rate 67 94 Respiratory Rate 15 20 H Respiratory Effort Normal Non-Labored Blood Pressure 125/77 H 135/94 H Blood Pressure Mean 93 107 Pulse Ox 98 93 Oxygen Delivery Method Room Air Room Air Positive well nourished and well developed General Appearance ED: well developed and NAD HEENT Reports moist mucous membranes Neck supple and no JVD Chest Wall Chest Narrative: There is tenderness to palpation over the right lower chest. There is no subcutaneous emphysema. There is no bony crepitance or step-off noted. Resp normal respiratory effort and clear to auscultation bilaterally Cardio regular rate and regular rhythm GI non-tender and non-distended Palpation: soft Extremity normal to inspection Neuro oriented x3, CN's II-XII intact bilaterally and no sensory deficits noted Psych mental status grossly normal MDM MDM MDM Narrative Medical decision making narrative: Differential diagnosis includes pneumothorax, rib fracture, intercostal strain, pneumonia, and bronchitis. Chest x-ray will be obtained to assess for pneumonia, pneumothorax, and rib fracture. CBC will be obtained to assess for leukocytosis and anemia. Basic metabolic profile will be obtained to assess for electrolyte abnormality and renal function. Lab Data Attestation: I reviewed the patient's lab results. Lab results narrative: CBC was reviewed and was within normal limits. Basic metabolic profile was reviewed. Potassium was slightly low at 3.3. The remainder was essentially within normal limits. Labs: Laboratory Results - last 24 hr 11/30/23 10:52 WBC 9.7 RBC 4.46 Hgb 12.3 Hct 36.9 L MCV 82.7 MCH 27.6 MCHC 33.3 RDW Std Deviation 40.4 RDW Coeff of Joe 13.5 Plt Count 220 MPV 11.0 Immature Gran % (Auto) 0.300 Neut % (Auto) 73.8 H Lymph % (Auto) 19.0 [place] % (Auto) 5.3 Eos % (Auto) 1.3 Baso % (Auto) 0.3 Absolute Neuts (auto) 7.1 Absolute Lymphs (auto) 1.83 Nucleated RBC % 0 Sodium 135 L Potassium 3.3 L Chloride 105 Carbon Dioxide 22.0 Anion Gap 8 BUN 7 Creatinine 0.48 L Estim Creat Clear Calc 184.61 Est GFR (MDRD) Af Amer 197 Est GFR (MDRD) Non-Af 163 BUN/Creatinine Ratio 14.4 Glucose 81 Calcium 9.3 Radiography Diagnostic Testing: Clinical Impression(s) from Imaging Studies Chest X-Ray 11/30/23 10:18 IMPRESSION: No radiographic evidence of acute cardiopulmonary disease. Electronically Signed: William Deutsch MD at 11:38 EDT , PA and lateral chest x-ray was obtained. There are 2 views. On my independent interpretation, lung connolly are clear. There is normal cardiac silhouette. Bony thorax is normal. There is no acute process noted. Radiologist also interpreted the x-ray and agrees. Treatment and Re-Evaluation :: Patient was given IV fluids. Patient was given a dose of Toradol. Patient was advised of her findings. Patient was advised that this could be a viral bronchitis causing her pain. It could also be muscular strain from coughing. Patient was instructed to continue with Tylenol and ibuprofen as needed for pain. Patient was instructed to follow-up with her primary care physician in 5 to 7 days. Patient stood and was agreeable with the plan. All questions were answered. Discharge Plan Triage Chief Complaint: Chest Other ED Provider: David Felix Dx/Rx/DC Orders Clinical Impression: Musculoskeletal chest pain, Bronchitis Instructions: ED Strain Chest Wall Prescriptions: No Action + Iron 1 mg Tablet 1 tab PO DAILY ferrous sulfate [Iron (ferrous sulfate)] 325 mg (65 mg iron) Tablet 325 mg PO DAILY naproxen [Naprosyn] 500 mg tablet 500 mg PO BID PRN (Reason: pain) Qty: 20 0RF venlafaxine 37.5 mg capsule,extended release 24hr 37.5 mg PO DAILY Patient Comments: TAKE 1 CAPSULE BY MOUTH DAILY sertraline 100 mg tablet 100 mg PO Q24H Patient Comments: TAKE 1 TABLET BY MOUTH ONCE DAILY IN THE MORNING montelukast 10 mg tablet 10 mg PO DAILY Patient Comments: TAKE 1 TABLET BY MOUTH DAILY DIRECTED ondansetron 4 mg tablet,disintegrating 4 mg PO Q8H PRN PRN (Reason: Nausea) Qty: 10 0RF Primary Care Provider: David Mckinney Referrals: David Mckinney MD [Primary Care Provider] - 5-7 Days Print Language: Uzbek Disposition Disposition: Home, Self Care
--- NOTE | 2023-11-30 10:18 | RAD_ITS ---
INDICATION: Chest pain EXAMINATION/TECHNIQUE: X-RAY - XR Chest 2 Views COMPARISON: Prior study dated: 06/09/2024 FINDINGS: LINES/DEVICES: None. LUNGS: No consolidation, edema or effusion. No pneumothorax. MEDIASTINUM AND CARDIOVASCULAR STRUCTURES: Cardiac silhouette not enlarged. Central airways and mediastinal contour are unremarkable. BONES AND SOFT TISSUES: Unremarkable. RAD/Chest PA and Lateral IMPRESSION: No radiographic evidence of acute cardiopulmonary disease. Electronically Signed: William Deutsch MD at 11:38 EDT ,
[2023-11-30 10:57] LABS: Absolute Lymphocyte Count 1.83 X10^3/uL (0.83-4.51); Absolute Neutrophil Count 7.1 X10^3/uL (2.0-7.7); Basophil# 0.03 X10^3/uL; Basophil% 0.3 % (0-1); Eosinophil# 0.13 X10^3/uL; Eosinophils% 1.3 % (0-5); Hematocrit 36.9 % (37-47); Hemoglobin 12.3 g/dL (12.0-15.0); Lymphocyte # 1.83 X10^3/ul (0.83-4.51); Mean Corp Hgb Conc 33.3 g/dL (32-36); Mean Corpuscular Hgb 27.6 pg (27.0-32.0); Mean Corpuscular Volume 82.7 fL (81-99); Monocyte# 0.51 X10^3/uL; Monocyte% 5.3 % (0-10); NRBC Flagged by Analyzer 0 % (0-5); Neutrophil # 7.12 X10^3/uL (2.7-7.7); Neutrophil % 73.8 % (47-70); Platelet Count 220 K/mm3 (150-450); RBC Distribution Width CV 13.5 % (11.6-14.6); RBC Distribution Width SD 40.4 fl (35.1-43.9); Red Blood Count 4.46 M/mm3 (4.2-5.4); White Blood Count 9.7 K/mm3 (4.4-11.0)
[2023-11-30] MEDS: 0.9% Normal Saline (1000mL) 1,000 ML 1000 ML IV (10:58)
[2023-11-30] MEDS: Ketorolac 30 MG/ML Syringe IV (10:58)
[2023-11-30 11:00] VITALS: BP 125/77; PULSE 67; RESP 15; TEMP 36.2; O2SAT 98
[2023-11-30 11:14] VITALS: BP 135/94; PULSE 94; RESP 20; TEMP 36.6; O2SAT 93
[2023-11-30 11:15] LABS: Anion Gap 8 (5-15); BUN 7 mg/dL (7-18); BUN/Creat Ratio 14.4 RATIO (10-20); Calcium,Total 9.3 mg/dL (8.5-10.1); Chloride 105 mmol/L (98-107); Creatinine, Serum 0.48 mg/dL (0.55-1.02); EST Glomerular Filtration Rate 163 mL/min (>60); Est Glom Filt Rate - Afr Amer 197 mL/min (>60); Estimated Creatinine Clearance 184.61 ml/min; Glucose 81 mg/dL (74-106); Potassium 3.3 mmol/L (3.5-5.1); Sodium Level 135 mmol/L (136-145)
[2023-11-30 12:51] VITALS: BP 125/77; PULSE 88; RESP 16; TEMP 36.7; O2SAT 98
== END 2023-11-30 12:51 | disposition home or self-care (01) ==
PROVIDERS: Emergency Provider Emergency Medicine; PCP Family Medicine; Visit Provider Emergency Medicine
DX: R07.89 Other chest pain (principal); R11.2 Nausea with vomiting, unspecified; J40 Bronchitis, not specified as acute or chronic; F17.200 Nicotine dependence, unspecified, uncomplicated
CPT/HCPCS: 71046; 80048; 85025; 99283; J7030; A4216

== ENCOUNTER 2024-01-06 10:06 | Emergency (ER) | payer MEDICAID, SELFPAY ==
[2024-01-06 10:07] VITALS: BP 133/87; PULSE 95; RESP 16; TEMP 36.2; O2SAT 97; BMI 29.8
--- NOTE | 2024-01-06 10:12 | ED.VIS.GI ---
HPI HPI - GI History of Present Illness Chief Complaint: Nausea/Vomiting Informant: patient Nausea/Vomiting/Emesis GI Symptom: Positive for Nausea; Negative for Vomiting Onset: Days Diarrhea/Melena/Hematochezia GI Symptom: Negative for Diarrhea, Melena or Hematochezia Associated Symptoms Associated Symptoms: Negative for Dysuria, Frequency or Hematuria Narrative Narrative: Patient presents with nausea, lightheadedness, dizziness, and polydipsia that has been getting worse over the past few days. Patient states it is gradually getting worse. Patient states he has been drinking lots of water but always feels thirsty. Patient is approximately 14 weeks . Patient denies any complications with the . Patient states she still feels the baby moving. Patient denies any vaginal bleeding or discharge. Patient denies any vomiting. Patient denies any diarrhea, melena, or hematochezia. Patient denies any dysuria, frequency, or hematuria. Patient states her lightheadedness and dizziness is worse with standing. Patient states she was at work today and felt like she was going to pass out. [facility] Medical History History of placental abruption Trauma depression Anxiety Cervical myofascial strain (spontaneous vaginal delivery) Home Medications ?Medication ?Instructions ?Recorded ?Last Taken ?Type sghmwyuc-[id number]-[id number]-FA 1 mg 1 tab PO DAILY 09/13/21 02/17/22 09:00 History tablet ferrous sulfate 325 mg (65 mg 325 mg PO DAILY 02/17/22 02/14/22 21:00 History iron) tablet (Iron (ferrous sulfate)) naproxen 500 mg tablet (Naprosyn) 500 mg PO BID PRN pain #20 tabs 01/08/23 Unknown Rx montelukast 10 mg tablet 10 mg PO DAILY 08/10/23 Unknown History ondansetron 4 mg disintegrating 4 mg PO Q8H PRN PRN Nausea #10 tabs 08/10/23 Unknown Rx tablet sertraline 100 mg tablet 100 mg PO Q24H 08/10/23 Unknown History venlafaxine 37.5 mg 37.5 mg PO DAILY 08/10/23 Unknown History capsule,extended release 24 hr Allergy/AdvReac Type Severity Reaction Status Date / Time No Known Allergies Allergy Verified 07/16/24 10:06 Surgical History no surgical history no surgical history Social History number of children: 2 Smoking Status: Current every day smoker tobacco type: cigarettes alcohol intake: former 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 ROS ROS ED Constitutional Constitutional ED: Denies chills or fever(s) ENT ENT ED: Denies rhinorrhea or sore throat Cardiovascular Cardiovascular: Denies chest pain or palpitations Respiratory/Chest Respiratory/Chest: Reports cough; Denies dyspnea Gastrointestinal Gastrointestinal: Reports nausea; Denies abdominal pain, diarrhea or vomiting Genitourinary Genitourinary ED: Denies dysuria, hematuria or urinary frequency Musculoskeletal Musculoskeletal: Denies back pain or neck pain Integumentary Denies abscess or rash Neurologic Neurologic: Denies headache(s) or weakness Endocrine Endocrinology: Reports polydipsia Allergic/Immunologic Allergic/Immunologic ED: Denies mouth swelling or urticaria EXAM Physical Exam Const Vital Signs: 01/06/24 10:07 Temperature 97.1 F L Temperature Source Temporal Pulse Rate 95 Respiratory Rate 16 Blood Pressure 133/87 H Blood Pressure Mean 102 Pulse Ox 97 Oxygen Delivery Method Room Air Positive well nourished and well developed General Appearance ED: well developed and NAD HEENT Reports moist mucous membranes Neck supple and no JVD Resp normal respiratory effort and clear to auscultation bilaterally Cardio regular rate and regular rhythm GI non-tender and non-distended Palpation: soft Extremity full ROM Neuro CN's II-XII intact bilaterally, moves all extremities and no sensory deficits noted Sensorium / Orientation: alert Motor Exam: strength 5/5 throughout Psych mental status grossly normal Skin no wounds MDM MDM MDM Narrative Medical decision making narrative: Differential diagnosis includes gestational diabetes, new onset diabetes, urinary tract infection, electrolyte abnormality, and gastritis. CBC will be obtained to assess for leukocytosis and anemia. Comprehensive metabolic profile will be obtained to assess for electrolyte abnormality, hepatic function, and renal function. Quantitative hCG will be obtained to assess for . Urinalysis will be obtained to assess for urinary tract infection and hematuria. Lab Data Attestation: I reviewed the patient's lab results. Lab results narrative: CBC was reviewed. There is a mild anemia with a hemoglobin of 11.3 and hematocrit of 34.6. Comprehensive metabolic profile was reviewed and was within normal limits. Quantitative hCG was reviewed [place] was [id number]. Urinalysis was reviewed. Leukocyte esterase was 500 with 5-10 white blood cells and 10-25 epithelial cells. There is 2+ bacteria. Labs: Laboratory Results - last 24 hr 01/06/24 01/06/24 10:30 11:09 WBC 6.7 RBC 4.10 L Hgb 11.3 L Hct 34.6 L MCV 84.4 MCH 27.6 MCHC 32.7 RDW Std Deviation 42.1 RDW Coeff of Joe 13.7 Plt Count 177 MPV 11.4 Immature Gran % (Auto) 0.400 Neut % (Auto) 65.5 Lymph % (Auto) 25.4 [place] % (Auto) 5.8 Eos % (Auto) 2.8 Baso % (Auto) 0.1 Absolute Neuts (auto) 4.4 Absolute Lymphs (auto) 1.70 Nucleated RBC % 0 Sodium 137 Potassium 3.6 Chloride 107 Carbon Dioxide 24.0 Anion Gap 6 BUN 10 Creatinine 0.58 Estim Creat Clear Calc 148.39 Est GFR (MDRD) Af Amer 161 Est GFR (MDRD) Non-Af 133 BUN/Creatinine Ratio 17.3 Glucose 96 Calcium 8.5 Total Bilirubin 0.20 AST 18 ALT 27 Alkaline Phosphatase 82 Total Protein 6.5 Albumin 2.9 L Globulin 3.6 Albumin/Globulin Ratio 0.8 L HCG, Quant 49102 H Urine Color Yellow Urine Clarity Sl. Cloudy Urine pH 5.0 Ur Specific [place] 1.020 Urine Protein 30 H Urine Glucose (UA) Normal Urine Ketones Negative Urine Occult Blood Negative Urine Nitrite Negative Urine Bilirubin Negative Urine Urobilinogen 4 H Ur Leukocyte Esterase 500 H Urine RBC 0 SEEN Urine WBC 5-10 SEEN Ur Squamous Epith Cells 10-25 SEEN Urine Bacteria 2+ Urine Mucus 2+ Treatment and Re-Evaluation :: Urine culture was ordered. Patient was advised of her findings. Patient was given a dose of Keflex here. Patient was given a prescription for Keflex. Patient was instructed to follow-up with her ORAL SURGERY PHYSICIAN in 3 to 5 days. Patient was instructed to return if worse in any way. Patient understood and was agreeable with the plan. All questions were answered. Discharge Plan Triage Chief Complaint: Nausea/Vomiting ED Provider: David Felix Dx/Rx/DC Orders Clinical Impression: Urinary tract infection, Instructions: ED , ED Cystitis Female Adult Prescriptions: No Action + Iron 1 mg Tablet 1 tab PO DAILY ferrous sulfate [Iron (ferrous sulfate)] 325 mg (65 mg iron) Tablet 325 mg PO DAILY naproxen [Naprosyn] 500 mg tablet 500 mg PO BID PRN (Reason: pain) Qty: 20 0RF venlafaxine 37.5 mg capsule,extended release 24hr 37.5 mg PO DAILY Patient Comments: TAKE 1 CAPSULE BY MOUTH DAILY sertraline 100 mg tablet 100 mg PO Q24H Patient Comments: TAKE 1 TABLET BY MOUTH ONCE DAILY IN THE MORNING montelukast 10 mg tablet 10 mg PO DAILY Patient Comments: TAKE 1 TABLET BY MOUTH DAILY DIRECTED ondansetron 4 mg tablet,disintegrating 4 mg PO Q8H PRN PRN (Reason: Nausea) Qty: 10 0RF Primary Care Provider: David Mckinney Referrals: David Mckinney MD [Primary Care Provider] - Kishor Veliz MD [Med Staff - Active Staff] - 3-5 Days Print Language: Georgian Disposition Disposition: Home, Self Care
[2024-01-06 10:44] LABS: Absolute Neutrophil Count 4.4 X10^3/uL (2.0-7.7); Basophil# 0.01 X10^3/uL; Basophil% 0.1 % (0-1); Eosinophil# 0.19 X10^3/uL; Eosinophils% 2.8 % (0-5); Hematocrit 34.6 % (37-47); Hemoglobin 11.3 g/dL (12.0-15.0); Lymphocyte % 25.4 % (19-41); Mean Corp Hgb Conc 32.7 g/dL (32-36); Mean Corpuscular Hgb 27.6 pg (27.0-32.0); Mean Corpuscular Volume 84.4 fL (81-99); Mean Platelet Vol. 11.4 fl (6.2-12.0); Monocyte# 0.39 X10^3/uL; Monocyte% 5.8 % (0-10); NRBC Flagged by Analyzer 0 % (0-5); Neutrophil # 4.38 X10^3/uL (2.7-7.7); Neutrophil % 65.5 % (47-70); Platelet Count 177 K/mm3 (150-450); RBC Distribution Width CV 13.7 % (11.6-14.6); RBC Distribution Width SD 42.1 fl (35.1-43.9); White Blood Count 6.7 K/mm3 (4.4-11.0)
[2024-01-06 10:59] LABS: ALB/GLOB Ratio 0.8 RATIO (0.9-2.4); AST(SGOT) 18 U/L (15-37); Alanine Aminotransfer ALT/SGPT 27 U/L (13-56); Albumin, Serum 2.9 g/dL (3.2-5.0); Alkaline Phosphatase 82 U/L (45-117); Anion Gap 6 (5-15); BUN 10 mg/dL (7-18); BUN/Creat Ratio 17.3 RATIO (10-20); Calcium,Total 8.5 mg/dL (8.5-10.1); Chloride 107 mmol/L (98-107); Creatinine, Serum 0.58 mg/dL (0.55-1.02); EST Glomerular Filtration Rate 133 mL/min (>60); Est Glom Filt Rate - Afr Amer 161 mL/min (>60); Estimated Creatinine Clearance 148.39 ml/min; Globulin 3.6 g/dL (2.2-4.2); Glucose 96 mg/dL (74-106); Potassium 3.6 mmol/L (3.5-5.1); Protein, Total 6.5 g/dL (6.4-8.2); Sodium Level 137 mmol/L (136-145)
[2024-01-06 11:16] LABS: hCG Titer Quant., Serum 30149 mIU/mL (1-3)
[2024-01-06 11:17] LABS: Red Blood Cells-Urine 0 SEEN /hpf (0-5)
[2024-01-06 11:22] LABS: Color, Urine Yellow (Yellow); Glucose, Dipstick Normal (Normal); Ketone-Dipstick Negative (Negative); Leukocyte Esterase-Dipstick 500 /ul (Negative); Nitrite-Dipstick Negative (Negative); Occult Blood-Urine Negative /ul (Negative); Protein-Dipstick 30 mg/dl (Negative); Urine Bilirubin Dipstick Negative (Negative); Urine Clarity Sl. Cloudy (Clear); Urine Urobilinogen 4 mg/dl (Normal)
[2024-01-06 11:37] LABS: Bacteria 2+ /hpf (None Seen); Mucous, Urine 2+ /hpf (<or=2+); Squamous Epithelial Cells - UA 10-25 SEEN /hpf (5-10); White Blood Cells 5-10 SEEN /hpf (0-5)
[2024-01-06 12:25] VITALS: BP 112/74; PULSE 68; RESP 14; TEMP 36.2; O2SAT 100
== END 2024-01-06 12:25 | disposition home or self-care (01) ==
PROVIDERS: Emergency Provider Emergency Medicine; PCP Family Medicine; Visit Provider Emergency Medicine
DX: O23.42 Unspecified infection of urinary tract in pregnancy, second trimester (principal); O99.332 Smoking (tobacco) complicating pregnancy, second trimester; F17.200 Nicotine dependence, unspecified, uncomplicated; Z3A.14 14 weeks gestation of pregnancy
CPT/HCPCS: 80053; 81001; 84702; 85025; 87086; 87088; 99282; J7040; A4216

== ENCOUNTER 2024-05-20 18:16 | Outpatient (CLI) | payer MEDICAID, SELFPAY ==
[2024-05-20 18:29] VITALS: PULSE 83; O2SAT 100
[2024-05-20 18:30] VITALS: BP 120/68; PULSE 82; RESP 15; TEMP 36.8; O2SAT 100
[2024-05-20 19:34] VITALS: BMI 29.7
--- NOTE | 2024-05-28 12:39 | OB.TRI.NOTE ---
HPI - General General Date of Service: 05/20/24 HPI Narrative SHILPA HOANG, is a 28 F who presents with decreased FM. Maternal Data Information JANE Calculator Estimated Delivery Date Method Current WG Current Estimate 07/04/24 Manual 34w 5d Final JANE: 07/04/24 [facility] Medical History History of placental abruption Trauma depression Anxiety Cervical myofascial strain (spontaneous vaginal delivery) Home Medications ?Medication ?Instructions ?Recorded ?Last Taken ?Type ajanarpr-gcy-[id number]-FA 1 mg 1 tab PO DAILY 09/13/21 02/17/22 09:00 History tablet ferrous sulfate 325 mg (65 mg 325 mg PO DAILY 02/17/22 02/14/22 21:00 History iron) tablet (Iron (ferrous sulfate)) sertraline 100 mg tablet 100 mg PO Q24H 08/10/23 05/19/24 History Allergy/AdvReac Type Severity Reaction Status Date / Time walnut (walnuts) Allergy Severe Swelling Verified 05/20/24 19:50 Social History number of children: 2 Smoking Status: Current every day smoker tobacco type: cigarettes alcohol intake: former 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 Date Name GA/Weeks Outcome Route Bth Weight Gen Labor Lgth Anesthesia Del Locatn Provider FOB 02/09/17 Piper 41 live - full term [id number] Female 18 epidural [facility] Trey Alejandre 11/13/18 Radha 39 live - full term 8lb2oz Female 13 epidural [facility] Fanny NST FHR Rate Baby A Baseline: 125 Variability:: Moderate Accelerations:: 15 x 15 Decelerations:: None NST Reactive:: Yes Uterine Activity:: quiet Assessment & Plan (1) Decreased movement: QUALIFIERS: Fetus number: single or unspecified fetus Trimester: third trimester Qualified Code(s): O36.8130 - Decreased movements, third trimester, not applicable or unspecified PLAN: reactive NST
== END 2024-05-20 20:05 | disposition home or self-care (01) ==
LOC: WPOUT 18:20 → WP 18:21
PROVIDERS: PCP Family Medicine; Visit Provider Obstetrics & Gynecology
DX: O36.8130 Decreased fetal movements, third trimester, not applicable or unspecified (principal); F17.210 Nicotine dependence, cigarettes, uncomplicated; O99.333 Smoking (tobacco) complicating pregnancy, third trimester; Z3A.00 Weeks of gestation of pregnancy not specified
CPT/HCPCS: 59025; 59050; 99221; G0378

== ENCOUNTER 2024-06-14 10:00 | Outpatient (CLI) | payer MEDICAID, SELFPAY ==
--- NOTE | 2024-06-14 10:45 | NURSING ---
Pt arrived on unit at 1000. Pt stated to this nurse that she felt baby move a lot yesterday and feels like he might have flipped. Per [place], this nurse also feels that baby may be vertex. Called Dr. Wei and reported findings. Asked if she could come confirm baby's position with ultrasound before starting Pt's IV and outpatient questions. Dr. Wei ok with holding off on Pt IV start and holding putting baby on the monitor until baby's position is confirmed. Dr. Wei or Dayana Connors CNM to come confirm Baby's position before starting anything per Dr. Wei.
--- NOTE | 2024-06-14 11:48 | NURSING ---
Dayana Connors CNM confirms vertex position with ultrasound. Pt good to go home.
== END 2024-06-14 11:50 | disposition home or self-care (01) ==
PROVIDERS: Anesthesiology; PCP Family Medicine; Referring Provider Advanced Practice Midwife; Visit Provider Advanced Practice Midwife
DX: Z00.00 Encounter for general adult medical examination without abnormal findings (principal)

== ENCOUNTER 2024-06-17 15:30 | Inpatient (IN) | payer MEDICAID, SELFPAY ==
[2024-06-17] VITALS (47 sets, daily range): BP systolic 110–146; BP diastolic 65–100; PULSE 86–114; RESP 14–16; TEMP 36.6–37.3; O2SAT 96–99; BMI 31.7
[2024-06-17 12:13] LABS: Hematocrit 27.7 % (37-47); Hemoglobin 8.6 g/dL (12.0-15.0); Mean Corpuscular Hgb 24.8 pg (27.0-32.0); Mean Corpuscular Volume 79.8 fL (81-99); Mean Platelet Vol. 12.5 fl (6.2-12.0); Platelet Count 143 K/mm3 (150-450); RBC Distribution Width SD 48.8 fl (35.1-43.9); Red Blood Count 3.47 M/mm3 (4.2-5.4); White Blood Count 10.8 K/mm3 (4.4-11.0)
[2024-06-17 12:37] LABS: Protein, Urine (Random) 30.5 mg/dL (<11.9); Protein:Creat Ratio 218 mg/g CRE (0-200)
[2024-06-17 12:43] LABS: AST(SGOT) 13 U/L (15-37); Alanine Aminotransfer ALT/SGPT 15 U/L (13-56); Creatinine, Serum 0.48 mg/dL (0.55-1.02); EST Glomerular Filtration Rate 164 mL/min (>60); Est Glom Filt Rate - Afr Amer 198 mL/min (>60); Estimated Creatinine Clearance 191.32 ml/min; Uric Acid 4.2 mg/dL (2.6-6.0)
--- NOTE | 2024-06-17 12:45 | OB.TRI.NOTE ---
HPI - General HPI Narrative SHILPA HOANG, is a 28 F who presents from office for elevated blood pressures. Patient reports having a migraine headache since yesterday. She has a history of GHTN with previous . Maternal Data Information JANE Calculator Estimated Delivery Date Method Current WG Current Estimate 07/04/24 Manual 37w 4d PFSH [facility] Medical History History of placental abruption Trauma depression Anxiety Cervical myofascial strain (spontaneous vaginal delivery) Home Medications ?Medication ?Instructions ?Recorded ?Last Taken ?Type synxyxsq-qfu-[id number]-FA 1 mg 1 tab PO DAILY 09/13/21 02/17/22 09:00 History tablet ferrous sulfate 325 mg (65 mg 325 mg PO DAILY 02/17/22 02/14/22 21:00 History iron) tablet (Iron (ferrous sulfate)) sertraline 100 mg tablet 100 mg PO Q24H 08/10/23 05/19/24 History aspirin 81 mg tablet,delayed 81 mg PO DAILY 06/17/24 06/14/24 21:00 History release 81 mg Allergy/AdvReac Type Severity Reaction Status Date / Time walnut (walnuts) Allergy Severe Swelling Verified 06/17/24 11:56 corn AdvReac Other Verified 06/17/24 11:56 Social History number of children: 2 Smoking Status: Current every day smoker tobacco type: cigarettes alcohol intake: former 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 Date Name GA/Weeks Outcome Route Bth Weight Gen Labor Lgth Anesthesia Del Locatn Provider FOB 02/09/17 Piper 41 live - full term [id number] Female 18 epidural [facility] Trey Alejandre 11/13/18 Radha 39 live - full term 8lb2oz Female 13 epidural [facility] Fanny Assessment & Plan (1) 37 weeks gestation of : (2) History of gestational hypertension: (3) Elevated blood pressure complicating in third trimester, antepartum:
[2024-06-17] MEDS: Sodium Ferric Gluconat/Sucrose 250 MG in 0.9% Normal Saline (250mL Bag) 250 ML 135 MG IV (13:15)
[2024-06-17] MEDS: Lactated Ringers 1,000 ML 50 ML IV (15:15)
[2024-06-17 17:04] LABS: Amphetamine Urine NEGATIVE (<1000 ng/mL); Barbiturate Urine NEGATIVE (< 200 ng/mL); Benzodiazepine Urine NEGATIVE (< 200 ng/mL); Cocaine Urine NEGATIVE (< 300 ng/mL); Ecstacy Urine NEGATIVE (< 500 ng/mL); Methadone Urine NEGATIVE (< 300 ng/mL); Opiates Urine NEGATIVE (< 300 ng/mL); PCP Urine NEGATIVE (< 25 ng/mL); THC Urine NEGATIVE (< 50 ng/mL); Vista UDS pH Range 5
--- NOTE | 2024-06-17 17:05 | HP.PCM.OB_ITS ---
HPI - General General Date of Admission: 06/17/24 HPI Narrative SHILPA HOANG, is a 28 F who presents from the office for elevated blood pressures. Maternal Data Information JANE Calculator Estimated Delivery Date Method Current WG Current Estimate 07/04/24 Manual 37w 4d PFSH [facility] Medical History (Updated 06/17/24 @ 17:08 by Johana Turner CNM) Depression Family history of hearing loss at age younger than 7 years Gestational HTN Stillborn, normal History of placental abruption Trauma depression Anxiety Cervical myofascial strain (spontaneous vaginal delivery) Home Medications ?Medication ?Instructions ?Recorded ?Last Taken ?Type qhodfpoo-oyq-Mo-FA 1 mg 1 tab PO DAILY 09/13/21 02/17/22 09:00 History tablet ferrous sulfate 325 mg (65 mg 325 mg PO DAILY 02/17/22 02/14/22 21:00 History iron) tablet (Iron (ferrous sulfate)) sertraline 100 mg tablet 100 mg PO Q24H 08/10/23 05/19/24 History aspirin 81 mg tablet,delayed 81 mg PO DAILY 06/17/24 06/14/24 21:00 History release 81 mg Allergy/AdvReac Type Severity Reaction Status Date / Time walnut (walnuts) Allergy Severe Swelling Verified 06/17/24 15:55 corn AdvReac Other Verified 06/17/24 15:55 Social History number of children: 2 Smoking Status: Former smoker alcohol intake: former 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 Date Name GA/Weeks Outcome Route Bth Weight Infant Gen Labor Lgth Anesthesia Del Locatn Provider FOB 02/09/17 Piper 41 live - full term [id number] Female 18 epi dural [facility] Trey Alejandre 11/13/18 Radha 39 live - full term 8lb2oz Female 13 ep idural [facility] Fanny NST FHR Rate Baby A Baseline: 140 Variability:: Moderate Accelerations:: 15 x 15 Decelerations:: None NST Reactive:: Yes FHR Category:: Category I Uterine Activity:: Irritability ROS Eyes Eyes: Denies blurry vision, change in vision or spots in vision ENT HEENT: Denies dizziness or headache(s) Cardiovascular Cardiovascular: Denies abdominal pain, chest pain or dyspnea Respiratory/Chest Respiratory/Chest: Denies cough, dyspnea, shortness of breath at rest or shortness of breath with exertion Gastrointestinal Gastrointestinal: Denies abdominal pain, diarrhea or vomiting Genitourinary Genitourinary: Denies change in urinary stream, difficulty urinating or dysuria Musculoskeletal Musculoskeletal: Reports none Integumentary Integumentary: Denies rash Neurologic Neurologic: Denies dizziness, headache(s), memory loss or weakness Psychiatric Psychiatric: Reports none Vital Signs Vital Signs Vital Signs: 06/17/24 11:36 06/17/24 11:36 06/17/24 11:36 Temperature Temperature Source Temporal Pulse Rate 100 Respiratory Rate Blood Pressure 142/100 H BP Systolic 142 BP Diastolic 100 Pulse Ox 06/17/24 11:36 06/17/24 11:36 06/17/24 11:37 Temperature 98.7 F Temperature Source Pulse Rate Respiratory Rate 16 Blood Pressure 146/82 H BP Systolic 146 BP Diastolic 82 Pulse Ox 06/17/24 11:37 06/17/24 11:53 06/17/24 11:53 Temperature Temperature Source Pulse Rate 96 97 Respiratory Rate Blood Pressure 131/74 H BP Systolic 131 BP Diastolic 74 Pulse Ox 06/17/24 12:09 06/17/24 12:09 06/17/24 12:23 Temperature Temperature Source Pulse Rate 106 H Respiratory Rate Blood Pressure 129/78 H 127/72 H BP Systolic 129 127 BP Diastolic 78 72 Pulse Ox 06/17/24 12:23 06/17/24 12:31 06/17/24 12:31 Temperature Temperature Source Pulse Rate 97 108 H Respiratory Rate Blood Pressure BP Systolic BP Diastolic Pulse Ox 98 06/17/24 12:36 06/17/24 12:36 06/17/24 12:39 Temperature Temperature Source Pulse Rate 96 Respiratory Rate Blood Pressure 110/65 BP Systolic 110 BP Diastolic 65 Pulse Ox 99 06/17/24 12:39 06/17/24 12:41 06/17/24 12:41 Temperature Temperature Source Pulse Rate 98 97 Respiratory Rate Blood Pressure BP Systolic BP Diastolic Pulse Ox 98 06/17/24 12:46 06/17/24 12:46 06/17/24 12:51 Temperature Temperature Source Pulse Rate 89 92 Respiratory Rate Blood Pressure BP Systolic BP Diastolic Pulse Ox 99 06/17/24 12:51 06/17/24 12:53 06/17/24 12:53 Temperature Temperature Source Pulse Rate 90 Respiratory Rate Blood Pressure 113/69 BP Systolic 113 BP Diastolic 69 Pulse Ox 99 06/17/24 12:56 06/17/24 12:56 06/17/24 13:01 Temperature Temperature Source Pulse Rate 104 H 93 Respiratory Rate Blood Pressure BP Systolic BP Diastolic Pulse Ox 99 06/17/24 13:01 06/17/24 13:06 06/17/24 13:06 Temperature Temperature Source Pulse Rate 94 Respiratory Rate Blood Pressure BP Systolic BP Diastolic Pulse Ox 98 98 06/17/24 13:08 06/17/24 13:08 06/17/24 13:11 Temperature Temperature Source Pulse Rate 94 97 Respiratory Rate Blood Pressure 117/67 BP Systolic 117 BP Diastolic 67 Pulse Ox 06/17/24 13:11 06/17/24 13:16 06/17/24 13:16 Temperature Temperature Source Pulse Rate 90 Respiratory Rate Blood Pressure BP Systolic BP Diastolic Pulse Ox 98 99 06/17/24 13:21 06/17/24 13:21 06/17/24 13:23 Temperature Temperature Source Pulse Rate 94 Respiratory Rate Blood Pressure 122/71 H BP Systolic 122 BP Diastolic 71 Pulse Ox 99 06/17/24 13:23 06/17/24 13:26 06/17/24 13:26 Temperature Temperature Source Pulse Rate 96 102 H Respiratory Rate Blood Pressure BP Systolic BP Diastolic Pulse Ox 99 06/17/24 13:31 06/17/24 13:31 06/17/24 13:36 Temperature Temperature Source Pulse Rate 91 96 Respiratory Rate Blood Pressure BP Systolic BP Diastolic Pulse Ox 98 06/17/24 13:36 06/17/24 13:39 06/17/24 13:39 Temperature Temperature Source Pulse Rate 93 Respiratory Rate Blood Pressure 122/72 H BP Systolic 122 BP Diastolic 72 Pulse Ox 98 06/17/24 13:41 06/17/24 13:41 06/17/24 13:46 Temperature Temperature Source Pulse Rate 100 92 Respiratory Rate Blood Pressure BP Systolic BP Diastolic Pulse Ox 98 06/17/24 13:46 06/17/24 13:53 06/17/24 13:53 Temperature Temperature Source Pulse Rate 90 Respiratory Rate Blood Pressure 118/68 BP Systolic 118 BP Diastolic 68 Pulse Ox 98 06/17/24 14:08 06/17/24 14:08 06/17/24 14:23 Temperature Temperature Source Pulse Rate 97 Respiratory Rate Blood Pressure 133/88 H 135/85 H BP Systolic 133 135 BP Diastolic 88 85 Pulse Ox 06/17/24 14:23 06/17/24 14:38 06/17/24 14:38 Temperature Temperature Source Pulse Rate 90 98 Respiratory Rate Blood Pressure 137/86 H BP Systolic 137 BP Diastolic 86 Pulse Ox 06/17/24 14:54 06/17/24 14:54 06/17/24 15:08 Temperature Temperature Source Pulse Rate 89 Respiratory Rate Blood Pressure 124/77 H 124/75 H BP Systolic 124 124 BP Diastolic 77 75 Pulse Ox 06/17/24 15:08 06/17/24 15:23 06/17/24 15:23 Temperature Temperature Source Pulse Rate 90 108 H Respiratory Rate Blood Pressure 126/87 H BP Systolic 126 BP Diastolic 87 Pulse Ox 06/17/24 15:39 06/17/24 15:39 06/17/24 15:53 Temperature Temperature Source Pulse Rate 94 Respiratory Rate Blood Pressure 138/91 H 137/90 H BP Systolic 138 137 BP Diastolic 91 90 Pulse Ox 06/17/24 15:53 06/17/24 16:08 06/17/24 16:08 Temperature Temperature Source Pulse Rate 98 86 Respiratory Rate Blood Pressure 137/95 H BP Systolic 137 BP Diastolic 95 Pulse Ox 06/17/24 16:24 06/17/24 16:24 Temperature Temperature Source Pulse Rate 93 Respiratory Rate Blood Pressure 135/94 H BP Systolic 135 BP Diastolic 94 Pulse Ox Weight Weight: 190 lb 14.725 oz Body Mass Index (BMI) 31.7 Physical Exam Const alert, oriented x3 and no apparent distress General Appearance: cooperative Orientation / Consciousness: awake Exam Limitations: no limitations HEENT normocephalic Head and Scalp: normal to inspection Eyes General Eye: normal appearance of both eyes Neck full ROM and no lymphadenopathy Lymph Lymphatic: no lymphadenopathy noted Chest inspection of chest normal Resp normal respiratory effort, normal air movement and clear to auscultation bilaterally Effort and Inspection: able to speak in complete sentences and symmetric chest movement Cardio regular rate and regular rhythm GI normal to inspection, nondistended, normoactive bowel sounds Manual OB Exam: presentation cephalic Back/Spine normal ROM Extremity full ROM and no calf tenderness Skin no rashes or lesions noted General Skin Exam: no breakdown Neuro oriented x3 and CN's II-XII intact bilaterally Psych mental status grossly normal and thought process normal Labs Labs Labs: Blood Type A POSITIVE Antibody Screen NEGATIVE Hct 27.7 % (37-47) L Hgb 8.6 g/dL (12.0-15.0) L Obstetrics Ultrasound Syphilis Total Ab Non-reactive Rubella IgG Antibody Reactive (Nonreactive) Hep Bs Antigen Non-Reactive (Nonreactive) Hepatitis C Antibody Non-Reactive (Nonreactive) Hepatitis C Ab (EIA) <0.1 s/co ratio (0.0-0.9) Chlamydia DNA (OFELIA) Negative (Negative) N.gonorrhoeae DNA (OFELIA) Negative (Negative) HIV 1&2 Antibody Non-Reactive (Nonreactive) Glucose 1 Hr 50 gm 129 mg/dL (70-140) Gest Glucose Tolerance MG/DL Group B Strep DNA Negative (Negative) Rhogam given: No Assessment & Plan (1) 37 weeks gestation of : (2) Positive GBS test: (3) Anemia affecting in third trimester: (4) Gestational thrombocytopenia: (5) History of drug use: COMMENT: History of Meth use- sober 2 years (6) Gestational hypertension: PLAN: Plan Blood pressures meet criteria for GHTN Admit to labor and delivery Routine labs Pre e labs normal Hgb. low at 8.6- patient receiving outpatient FE IV transfusions- Give Venofer 200 mg IV x 1 now GBS positive- start PCN 5 million units IV and continue with protocol Pain medications as indicated Dr. Cassidy notified of admission and is collaborating physician
[2024-06-17 17:19] LABS: Syphilis Antibodies Non-reactive
[2024-06-17] MEDS: Penicillin G Pot 5,000,000 UNITS in 0.9% Normal Saline (100mL MB+) 100 ML 150 UNITS IV (17:36)
[2024-06-17] MEDS: miSOPROStol 25 MCG TABLET PO ×2 (18:24→22:36)
--- NOTE | 2024-06-17 18:24 | PCM.PN.CNM ---
Subjective Subjective Patient seen at bedside. TAUS confirms vertex position. Objective Data Objective Data Vital Signs: Vital Signs Temp Pulse Resp BP Pulse Ox 98.7 F 93 16 135/94 H 98 06/17/24 11:36 06/17/24 16:24 06/17/24 11:36 06/17/24 16:24 06/17/24 13:46 Weight: 190 lb 14.725 oz Body Mass Index (BMI) 31.7 Intake & Output: Intake and Output for Last 24 Hours 06/15/24 06/16/24 06/17/24 23:59 23:59 23:59 Intake Total 270 / 270 Balance 270 / 270 Lab / Micro Data 06/17/24 11:45 06/17/24 11:45 Labs: Laboratory Results - last 24 hr 06/17/24 11:45: WBC 10.8, RBC 3.47 L, Hgb 8.6 L, Hct 27.7 L, MCV 79.8 L, MCH 24.8 L, MCHC 31.0 L, RDW Std Deviation 48.8 H, RDW Coeff of Joe 17.0 H, Plt Count 143 L, MPV 12.5 H, Creatinine 0.48 L, Estim Creat Clear Calc 191.32, Est GFR (MDRD) Af Amer 198, Est GFR (MDRD) Non-Af 164, Uric Acid 4.2, AST 13 L, ALT 15, U Random Total Protein 30.5 H, Urine Creatinine 140.00, Protein/Creatinin Ratio 218 H 06/17/24 15:30: Urine Opiates Screen NEGATIVE, Urine Methadone Screen NEGATIVE, Ur Barbiturates Screen NEGATIVE, Ur Phencyclidine Scrn NEGATIVE, Ur Amphetamines Screen NEGATIVE, MDMA (Ecstasy) Screen NEGATIVE, U Benzodiazepines Scrn NEGATIVE, Urine Cocaine Screen NEGATIVE, U Cannabinoids Screen NEGATIVE, Ur Drug Screen Comment , Syphilis Total Ab Non-reactive, Blood Type A POSITIVE, Antibody Screen NEGATIVE Assessment & Plan (1) Gestational hypertension: (2) History of drug use: COMMENT: History of Meth use- sober 2 years (3) Gestational thrombocytopenia: (4) Anemia affecting in third trimester: (5) Positive GBS test: (6) 37 weeks gestation of : PLAN: Plan CE- Closed/thick/high Vertex Start Cytotec 25 mcg PO x 1 dose now and will reevaluate CE Pain medications when indicated Dr. Cassidy updated on plan of care
[2024-06-17] MEDS: DiphenhydrAMINE 25 MG Capsule PO (19:24)
[2024-06-17] MEDS: Acetaminophen 500 MG Tablet PO (21:39)
[2024-06-17] MEDS: Penicillin G 3,000,000 Units 50 ML 100 UNITS IV (21:39)
[2024-06-18] VITALS (68 sets, daily range): BP systolic 114–148; BP diastolic 58–84; PULSE 72–104; RESP 14–17; TEMP 36.1–37.2; O2SAT 96–100
[2024-06-18] MEDS: Penicillin G 3,000,000 Units 50 ML 100 UNITS IV ×2 (01:32→05:42)
[2024-06-18] MEDS: fentaNYL-bupivacaine (epidural) 100 ML BAG EPIDURAL ×2 (03:24→09:11)
[2024-06-18] MEDS: Lactated Ringers 1,000 ML 50 ML IV (03:32)
[2024-06-18] MEDS: Oxytocin 15 Units/NS 250ml 15 UNITS/250 ML IV.SOLN 2 UNITS IV (03:32)
--- NOTE | 2024-06-18 06:58 | PCM.PN.OB ---
Subjective Subjective Patient seen at bedside. Comfortable with epidural. Objective Data Objective Data Vital Signs: Vital Signs Temp Pulse Resp BP Pulse Ox 98.2 F 96 14 126/63 H 99 06/18/24 06:25 06/18/24 06:26 06/18/24 06:25 06/18/24 06:26 06/18/24 04:44 Weight: 190 lb 14.725 oz Body Mass Index (BMI) 31.7 Intake & Output: Intake and Output for Last 24 Hours 06/16/24 06/17/24 06/18/24 23:59 23:59 23:59 Intake Total 657.5 / 657.5 877.66 / 877.66 Output Total 400 / 400 Balance 657.5 / 657.5 477.66 / 477.66 Lab / Micro Data 06/17/24 11:45 06/17/24 11:45 Labs: Laboratory Results - last 24 hr 06/17/24 11:45: WBC 10.8, RBC 3.47 L, Hgb 8.6 L, Hct 27.7 L, MCV 79.8 L, MCH 24.8 L, MCHC 31.0 L, RDW Std Deviation 48.8 H, RDW Coeff of Joe 17.0 H, Plt Count 143 L, MPV 12.5 H, Creatinine 0.48 L, Estim Creat Clear Calc 191.32, Est GFR (MDRD) Af Amer 198, Est GFR (MDRD) Non-Af 164, Uric Acid 4.2, AST 13 L, ALT 15, U Random Total Protein 30.5 H, Urine Creatinine 140.00, Protein/Creatinin Ratio 218 H 06/17/24 15:30: Urine Opiates Screen NEGATIVE, Urine Methadone Screen NEGATIVE, Ur Barbiturates Screen NEGATIVE, Ur Phencyclidine Scrn NEGATIVE, Ur Amphetamines Screen NEGATIVE, MDMA (Ecstasy) Screen NEGATIVE, U Benzodiazepines Scrn NEGATIVE, Urine Cocaine Screen NEGATIVE, U Cannabinoids Screen NEGATIVE, Ur Drug Screen Comment , Syphilis Total Ab Non-reactive, Blood Type A POSITIVE, Antibody Screen NEGATIVE Assessment & Plan (1) Gestational hypertension: (2) History of drug use: COMMENT: History of Meth use- sober 2 years (3) Gestational thrombocytopenia: (4) Anemia affecting in third trimester: (5) Positive GBS test: PLAN: Plan CE /-2- ballotable Cat. 1 tracing Pitocin 8 mu/min IV continue to increase per orders GBS positive- Continue PCN IV every [address] Alcala updated and assuming management
[2024-06-18] MEDS: Acetaminophen 500 MG Tablet PO (08:21)
--- NOTE | 2024-06-18 08:28 | PCM.PN.OB ---
Subjective Subjective Headache gone now. Feeling tired. Swelling has resolved. Reviewed BPs and symptoms to watch at home. Will send with sneha. Has an appointment on Friday Objective Data Objective Data Vital Signs: Vital Signs Temp Pulse Resp BP Pulse Ox 98.0 F 99 16 134/63 H 98 06/18/24 08:10 06/18/24 08:15 06/18/24 08:10 06/18/24 08:11 06/18/24 08:15 Weight: 86.6 kg Body Mass Index (BMI) 31.7 Intake & Output: Intake and Output for Last 24 Hours 06/16/24 06/17/24 06/18/24 23:59 23:59 23:59 Intake Total 657.5 / 657.5 877.66 / 877.66 Output Total 400 / 400 Balance 657.5 / 657.5 477.66 / 477.66 Lab / Micro Data 06/17/24 11:45 06/17/24 11:45 Labs: Laboratory Results - last 24 hr 06/17/24 11:45: WBC 10.8, RBC 3.47 L, Hgb 8.6 L, Hct 27.7 L, MCV 79.8 L, MCH 24.8 L, MCHC 31.0 L, RDW Std Deviation 48.8 H, RDW Coeff of Joe 17.0 H, Plt Count 143 L, MPV 12.5 H, Creatinine 0.48 L, Estim Creat Clear Calc 191.32, Est GFR (MDRD) Af Amer 198, Est GFR (MDRD) Non-Af 164, Uric Acid 4.2, AST 13 L, ALT 15, U Random Total Protein 30.5 H, Urine Creatinine 140.00, Protein/Creatinin Ratio 218 H 06/17/24 15:30: Urine Opiates Screen NEGATIVE, Urine Methadone Screen NEGATIVE, Ur Barbiturates Screen NEGATIVE, Ur Phencyclidine Scrn NEGATIVE, Ur Amphetamines Screen NEGATIVE, MDMA (Ecstasy) Screen NEGATIVE, U Benzodiazepines Scrn NEGATIVE, Urine Cocaine Screen NEGATIVE, U Cannabinoids Screen NEGATIVE, Ur Drug Screen Comment , Syphilis Total Ab Non-reactive, Blood Type A POSITIVE, Antibody Screen NEGATIVE ROS Constitutional Constitutional: Denies fatigue, fever(s) or malaise Eyes Eyes: Denies change in vision ENT HEENT: Denies dizziness or headache(s) Cardiovascular Cardiovascular: Denies chest pain, dyspnea or lightheadedness Respiratory/Chest Respiratory/Chest: Denies cough or dyspnea Gastrointestinal Gastrointestinal: Denies change in bowel habits Genitourinary Genitourinary: Denies burning urination or genital lesions Integumentary Integumentary: Denies rash Neurologic Neurologic: Denies confusion, dizziness, headache(s), numbness or weakness Physical Exam Const alert General Appearance: cooperative Assessment & Plan (1) hypertension: PLAN: Plan Discharge home with procardia and return precautions. Has appointment on 06/22
[2024-06-18] MEDS: Penicillin G 3,000,000 Units 50 ML 50 UNITS IV (09:35)
[2024-06-18] MEDS: Oxytocin 15 Units/NS 250ml 15 UNITS/250 ML IV.SOLN 83 UNITS IV (12:29)
--- NOTE | 2024-06-18 13:15 | OB.VAGDELI_ITS ---
Assessment & Plan (1) Gestational hypertension: QUALIFIERS: Trimester: third trimester Qualified Code(s): O13.3 - Gestational [-induced] hypertension without significant proteinuria, third trimester (2) 37 weeks gestation of : (3) (spontaneous vaginal delivery): Maternal Data Information JANE Calculator Estimated Delivery Date Method Current WG Current Estimate 07/04/24 Manual 37w 5d Final JANE: 07/04/24 Gestational age: 37+5 Vaginal Delivery Maternal Presentation Maternal Presentation: Medically Indicated Induction Maternal Presentation: IOL for GHTN Type of Induction: Pitocin and Amniotomy Medical Reason for Induction: Gestational Hypertension Vaginal Delivery Information Procedure Performed: Spontaneous Vaginal Delivery Surgeon/Practitioner: Margarita Alcala Date of Procedure: 06/18/24 Pre-Procedure Diagnosis: GHTN Post-Procedure Diagnosis: same Type of anesthesia: Epidural Estimated Blood Loss: 100 cc Time of Delivery: 11:56 Findings Description of procedure: Patient progressed to complete quickly after AROM. She pushed over and intact perineum to deliver OA with a nuchal cord around the neck x 1. It was easily reduced. The anterior and posterior shoulders delivered quickly followed the remainder of the body. The cried upon delivery and was placed on the maternal abdomen. The cord was clamped and cut after one minute. The placental delivered with manual traction. There were no lacerations in need of repair. 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
[2024-06-18] MEDS: Sertraline 100 MG Tablet PO (13:20)
[2024-06-18] MEDS: Acetaminophen 500 MG Tablet 1000 MG PO ×2 (15:39→22:30)
[2024-06-18] MEDS: Ibuprofen 600 MG Tablet PO (20:15)
[2024-06-19] VITALS (9 sets, daily range): BP systolic 131–140; BP diastolic 77–91; PULSE 71–96; RESP 16–18; TEMP 36.5–36.8; O2SAT 97–98
--- NOTE | 2024-06-19 04:48 | PCM.DC.SUM ---
Providers Date of Admission: 06/17/24 Date of Discharge: 06/18/24 Primary Care Physician: Dr. David Mckinney MD Reason For Visit: VAGINAL DELIVERY Diagnosis Discharge Diagnosis (1) Gestational hypertension: Status: Acute Code(s): O13.9 - Gestational [-induced] hypertension without significant proteinuria, unspecified trimester Qualifiers: Trimester: third trimester Qualified Code(s): O13.3 - Gestational [-induced] hypertension without significant proteinuria, third trimester (2) 37 weeks gestation of : Status: Acute Code(s): Z3A.37 - 37 weeks gestation of (3) (spontaneous vaginal delivery): Status: Acute Code(s): O80 - Encounter for full-term uncomplicated delivery Plan Discharge home with procardia and return precautions. Has appointment on 06/22 Medications at Discharge Home Medications kfrvlvvq-esl-Mv-FA 1 mg tablet 1 tab PO DAILY 09/13/21 ferrous sulfate 325 mg (65 mg iron) tablet (Iron (ferrous sulfate)) 325 mg PO DAILY 02/17/22 sertraline 100 mg tablet 100 mg PO Q24H 08/10/23 Hospital Course Operations None Procedures None Summary of Care Provided Minutes Spent on Discharge: 20 Hospital Course: IOL for GHTN. without complication. BP normal to mild. Asymptomatic. Breast feeding Physical Exam Const alert and no apparent distress Narrative: Fundus firm, below umbilicus. Weight / BMI Weight Weight: 86.6 kg Body Mass Index (BMI) 31.7 ABG / Lab / Microbiology Data 06/17/24 11:45 06/17/24 11:45 D/C Instructions May resume sexual activity in: 6 weeks DC O2, CPAP, BIPAP Needs Home O2 Discharge instructions: No Please Follow Up With: Martha Kelly MD When: Follow up with our office in 1-2 and 6 weeks or as needed. [phone] Meaningful Use Info Meaningful Use Meaningful Use Diagnoses (Choose all that apply): None applicable Ischemic Stroke Statin Dosing Therapy Reference: STATIN DOSE THERAPY REFERENCE: * Patients > 75 years receive moderate or high dose statin therapy. * Patients 75 years or YOUNGER should receive HIGH intensity statin dose unless contraindicated. You will be required to document reason for non-treatment if statin daily dose does not meet guidelines. HIGH DOSE STATIN THERAPY DAILY Atorvastatin > than or = to 40 mg Rosuvastatin > than or = to 20 mg Amlodipine + Atorvastatin > than or = to 2.5/40 mg Ezetimibe + Simvastatin 10/80 mg Simvastatin 80mg Discharge Plan Admission Admit Date/Time: 06/17/24 15:30 Primary Reason for Your Visit: HTN Attending Provider: Johana Turner Primary Care Provider: David Mckinney Discharge Orders/Prescriptions Prescriptions: Continued rfqywxha-isf-Ji-FA 1 mg Tablet 1 tab PO DAILY ferrous sulfate [Iron (ferrous sulfate)] 325 mg (65 mg iron) Tablet 325 mg PO DAILY sertraline 100 mg tablet 100 mg PO Q24H Patient Comments: TAKE 1 TABLET BY MOUTH ONCE DAILY IN THE MORNING Discontinued aspirin 81 mg tablet,delayed release (DR/EC) 81 mg PO DAILY Referrals / Follow Up: David Mckinney MD [Primary Care Provider] - Disposition Disposition (needs filled in before D/C Order can be placed): Home, Self Care
[2024-06-19] MEDS: Sertraline 100 MG Tablet PO (10:11)
[2024-06-19] MEDS: Acetaminophen 500 MG Tablet 1000 MG PO (10:13)
--- NOTE | 2024-06-19 11:41 | PCM.PN.OB ---
Subjective Subjective Doing well. Ambulating and voiding without difficulty. Mild lochia. Breast feeding. Objective Data Objective Data Vital Signs: Vital Signs Temp Pulse Resp BP Pulse Ox O2 Del Method 98.3 F 76 16 139/84 H 97 Room Air 06/19/24 08:38 06/19/24 11:29 06/19/24 08:38 06/19/24 11:29 06/19/24 04:05 06/19/24 04:05 Oxygen Delivery Method Room Air Weight: 86.6 kg Body Mass Index (BMI) 31.7 Intake & Output: Intake and Output for Last 24 Hours 06/17/24 06/18/24 06/19/24 23:59 23:59 23:59 Intake Total 657.5 / 657.5 / Output Total 2450 / 2450 Balance 657.5 / 657.5 -461.01 / -461.01 Lab / Micro Data 06/17/24 11:45 06/17/24 11:45 ROS Constitutional Constitutional: Denies fatigue, fever(s) or malaise Eyes Eyes: Denies change in vision ENT HEENT: Denies dizziness or headache(s) Cardiovascular Cardiovascular: Denies chest pain, dyspnea or lightheadedness Respiratory/Chest Respiratory/Chest: Denies cough or dyspnea Gastrointestinal Gastrointestinal: Denies change in bowel habits Genitourinary Genitourinary: Denies burning urination or genital lesions Integumentary Integumentary: Denies rash Neurologic Neurologic: Denies confusion, dizziness, headache(s), numbness or weakness Physical Exam Const alert and no apparent distress Narrative: Fundus firm, below umbilicus. Assessment & Plan (1) (spontaneous vaginal delivery): (2) Gestational hypertension: QUALIFIERS: Trimester: third trimester Qualified Code(s): O13.3 - Gestational [-induced] hypertension without significant proteinuria, third trimester PLAN: Plan Possible discharge this afternoon Reviewed BP monitoring
[2024-06-19] MEDS: Ibuprofen 600 MG Tablet PO (14:04)
--- NOTE | 2024-06-19 15:50 | CASEMGMT ---
Social Work Assessment Labor and Delivery Unit Patient Address: [address] [place] [address] Phone number: [phone] Date of Referral: 06/17/24 Time of Referral: 15:49 Referred By: Johana Turner Date of Intervention: 06/19/2024 Time of Intervention: 15:50 Reason for Referral: History of drug abuse, anxiety and depression History obtained from: Medical records, mother of baby (MOB) and father of baby (FOB).? Household composition: MOB (Nae Lawrence, age 27), FOB (Sarath Boateng), MOB?s daughters Judith, age 7, Radha, age 5, son Octaviano, age 2 and son Barry Lawrence, born 06/18/2024, all currently reside with ?s maternal grandmother (MGM), Gris. Patient's parent/guardian status: MOB and FOB have been together for 3 years and for 1 year. ??Both are actively involved and will be providing care for baby. Medical History: : 5, Para:Now 4, and 1 IAB. MOB received care through the [facility] beginning at 6 weeks and 4 days.? Visits appeared to be routine. Apgars: 8 and 9. Weight: 7lbs, 6 oz. Security Assessor: Dr. David Mckinney through [place]. Educational Status: MOB and FOB denied any issues or concerns with reading or writing. MOB is a high school graduate and the FOB went to school through some of his senior year. Financial Status: MOB and FOB reported their income is sufficient to meet the needs of their family at this time. MOB is currently a dxtx-na-warn mom however plans on getting a job in the future.? FOB is currently employed timekeeper as a counter clerk tractor parts at [employer]. Infant Supplies: MOB and FOB reported they have all the supplies they need for baby at this time including but not limited to: Car seat, bassinet, pack-n-play, crib, diapers, bottles, breast pump and clothing. Childcare/Caregiver(s):? MOB reported she will be the primary caregiver as a [id number]-ms-niyw mom and that ?s MGM will also be a big help when needed. FOB will help provide care during the time he is not at work and is at home. ? Transportation:? MOB and FOB reported they are both licensed drivers and have a reliable vehicle to take baby to and from all medical appointments. No transportation issues identified. Programs/Agencies Involved: [facility] is currently involved/Medicaid. AREN also reported she currently gets food stamps. WIC is involved, [facility] has previously been involved and MOB used to attend counseling through [facility]. [facility] has been involved and both MOB and FOB do have a legal history. JACKLYN just got off of a 2 year probation that was related to a paraphernalia charge. Children Services/Legal Issues:? Denied. Behavioral Health Issues: ??Mental Health History: MOB: Anxiety and Depression. MOB is currently on Zoloft which she reports works well and manages symptoms. FOAll denied any mental health issues. Substance Use History: MOB and FOAll both have a history of drug abuse, specifically meth.? MOB has been sober for 4 years and JACKLYN has been sober for 4 years from meth. ?Family History: ?s paternal grandfather (PGF) is reported to abuse meth, alcohol and ?anything he can get his hands on?. ???Drug Screens: MOB: All negative. : None obtained. ? Family/Social Stressors: After assessment, when psychosocial rehabilitation counselor was talking with the MOB alone, MOB described the FOB as ?mean? and stated she is in the process of preparing to file for a divorce and is also trying to get the FOB evicted from the home as he refuses to leave. MOB reported they recently and the MOB is going to get paternity testing done on as it may not be MOB?s , Sarath. MOB reported the ?FOB? was yelling at her earlier on this date because of the ?s name which is why the MOB asked ?s MFG to come to the hospital. MOB did deny any previous or current DV with the FOB and reported feeling safe at home. Support Systems: ?MOB identified her biggest supports as her mother, Gris. MOB stated the FOB is also supportive at times. Depression/Shaken Baby/Safe Sleeping: hop worker provided verbal and written education on PPD, Safe Sleeping and Shaken Baby.? Parents verbalized an understanding. ??? ASSESSMENT:? MOB and FOB provided consent to social work visit. Upon arrival, MOB was lying in the hospital bed and the FOB and MGM were by the crib getting dressed for discharge. Both MOB and FOB were ok with the MGM being present during the visit. hop worker observed positive interaction between all of the adults in the room and also observed positive interaction between the FOB and the MGM towards the as they were getting him dressed. Both MOB and FOB were verbally engaged throughout the visit and when psychosocial rehabilitation counselor asked the FOB and MGM step out of the room so the MOB could be interviewed alone, the FOB kissed before leaving the room. There was a time during the assessment when the MOB was holding and and MOB smiled at , was attentive and gentle with . No other needs or concerns noted at this time. Safe Plan of Care for related to substance use: N/A; not needed. ? PLAN:? Baby to be discharged home when ready.? hop worker also provided written information on depression, depression resources and [facility] as additional resources offered by psychosocial rehabilitation counselor which MOB and FOB accepted. No other services requested or indicated. Margarita Wood, SENIOR HEALTH EDUCATOR, FLATWORK FOLDER
== END 2024-06-19 16:30 | disposition home or self-care (01) | DRG 560 ==
LOC: WPOUT 15:38 → WP 15:41
PROVIDERS: Obstetrics & Gynecology; Admitting Provider Advanced Practice Midwife; PCP Family Medicine; Referring Provider Advanced Practice Midwife; Visit Provider Advanced Practice Midwife
DX: O13.4 Gestational [pregnancy-induced] hypertension without significant proteinuria, complicating childbirth (principal); Z37.0 Single live birth; D64.9 Anemia, unspecified; O99.02 Anemia complicating childbirth; O69.81X0 Labor and delivery complicated by cord around neck, without compression, not applicable or unspecified; Z3A.37 37 weeks gestation of pregnancy; O99.824 Streptococcus B carrier state complicating childbirth; Z79.82 Long term (current) use of aspirin; Z79.899 Other long term (current) drug therapy; Z87.891 Personal history of nicotine dependence
CPT/HCPCS: 59025; 59050; 76815; 80307; 82565; 82570; 84156; 84450; 84460; 84550; 85027; 86780; 86850; 86900; 86901; 99221; G0378; J2916

== ENCOUNTER 2024-10-02 22:37 | Emergency (ER) | payer MEDICAID, SELFPAY ==
[2024-10-02 22:37] VITALS: BP 137/85; PULSE 105; RESP 16; TEMP 36; O2SAT 98; BMI 26.1
--- NOTE | 2024-10-02 22:43 | EDS_ITS ---
HPI History of Present Illness Chief Complaint: Dental [facility] Medical History (Updated 10/02/24 @ 23:[address] Kuldeep Vanegas, DO) (spontaneous vaginal delivery) Depression Family history of hearing loss at age younger than 7 years Gestational HTN Stillborn, normal History of placental abruption Trauma depression Anxiety Cervical myofascial strain Home Medications ?Medication ?Instructions ?Recorded ?Last Taken ?Type dihywaax-zkv-Fh-FA 1 mg 1 tab PO DAILY pregna ncy 09/13/21 02/17/22 09:00 History tablet ferrous sulfate 325 mg (65 mg 325 mg PO DAILY pregnanc y 02/17/22 02/14/22 21:00 History iron) tablet (Iron (ferrous sulfate)) sertraline 100 mg tablet 100 mg PO Q24H 08/10/2304/24 History amoxicillin 875 mg-potassium 1 tab PO BID 7 days #14 t abs 10/02/24 Unknown Rx clavulanate 125 mg tablet Allergy/AdvReac Type Severity Reaction Status Date / Time walnut (walnuts) Allergy Severe Swelling Verified 10/02/24 22:37 corn AdvReac Other Verified 10/02/24 22:37 Social History number of children: 2 Smoking Status: Former smoker alcohol intake: former 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 Notes 5 days of dental pain that slightly improved afew days ago then today she noted some bleeding. Notes bleeding is improved since onset. Notes she has not seen dentistry. Notes she is early . No abd pain, vaginal bleeding, passage of tissue etc. REVIEW OF SYSTEMS: Pertinent positives: Dental pain, bleeding Pertinent negatives: Abdominal pain, vaginal discharge PHYSICAL EXAM: Nursing triage notes reviewed, Vital signs reviewed Constitutional: please see mdm HENT: MMM, bilateral TMs pearly rocha, no hyperemia or erythema. Poor dentition. Dental caries. No palpable abscess noted. No signs of ANUG. No active bleeding noted there does appear to be a clot along the right lower molar. No pooling secretions in the posterior oropharynx. No pharyngeal erythema or edema. Uvula midline. No submandibular edema Neck: No stridor, no JVD, full neck ROM, positive lymphadenopathy right anterior cervical chain Lungs: Clear to auscultation, No wheezing or rales. No increased work of breathing, no conversational dyspnea, no accessory muscle use, no nasal flaring. No respiratory distress noted Heart: Regular rate and rhythm, No murmurs, No rubs and No gallops, 2+ distal pulses (radial, femoral, posterior tibial) in all extremities. MEDICAL DECISION MAKING: Chief Complaint: please see HPI External records reviewed: Reviewed prior ED evaluation Factors affecting care: First trimester Social determinants of health: none History obtained from others: Significant other Consults: none [facility] Narrative: The patient was initially hemodynamically stable, afebrile and nontoxic- appearing. Exam without evidence of dental abscess, ANUG, ongoing bleeding. Exam most consistent with dental caries. Gave topical let here to further achieve hemostasis. Gave Tylenol. Gave prophylactic antibiotics. Instructed the patient not to take NSAIDs given early status. She had no related symptoms at this time. No indication for further testing in terms of labs. Gave dental resources The patient and/or family, caregivers express understanding. The patient and/or family, caregivers agrees with the plan. Shared decision making: I will have a discussion with the patient and or visitors regarding risk/benefits of further testing or admission. They will be made aware of of the risk/benefits inherent in this decision they will be given the opportunity to voice understanding. Total critical care time today provided was at least 0 minutes. This excludes separately billable procedures. Critical care time (if documented) is secondary to the patient having high probability of clinically significant/life threatening deterioration in the patient's condition which required my urgent intervention. Impression: 1. Acute dental pain 2. Gum hemorrhage (resolved) Dispo: Discharge This note was generated with Clever dictation software. It may contain incorrect words, spelling, and punctuation that were not noted in review of the chart prior to signing. Discharge Plan Triage Chief Complaint: Dental ED Provider: Kuldeep Vanegas Dx/Rx/DC Orders Clinical Impression: Gingiva hemorrhage, Pain due to dental caries Instructions: ED Dental Pain Prescriptions: New amoxicillin-pot clavulanate 875-125 mg tablet 1 tab PO BID 7 Days Qty: 14 0RF No Action [id number]-[id number]-[id number]-FA 1 mg Tablet 1 tab PO DAILY ferrous sulfate [Iron (ferrous sulfate)] 325 mg (65 mg iron) Tablet 325 mg PO DAILY sertraline 100 mg tablet 100 mg PO Q24H Patient Comments: TAKE 1 TABLET BY MOUTH ONCE DAILY IN THE MORNING Primary Care Provider: David Mckinney Referrals: David Mckinney MD [Primary Care Provider] - Activity Restrictions/Additional Instructions: Thank you for trusting us with your care today! Please take Tylenol (2 pills, 650 mg), every 6 hours as needed for pain and feve r control. Please take antibiotics until course completed. Please return to the emergency department if your symptoms change or worsen. Specifically develop vomiting, if you develop severe swelling underneath your jaw. Please follow with dentistry (separate handout/resources provided) for further outpatient evaluation and management. Print Language: Chinese Disposition Disposition: Home, Self Care Discharge Date/Time: 10/02/24 23:21
[2024-10-02 23:04] VITALS: BP 132/80; PULSE 100; RESP 16; TEMP 36; O2SAT 98
[2024-10-02] MEDS: Lidocaine/Epi/Tetracaine 50 ML 1 APPLIC TOPICAL (23:16)
[2024-10-02] MEDS: Amox/Clavulanate 875 MG Tablet PO (23:16)
== END 2024-10-02 23:21 | disposition home or self-care (01) ==
PROVIDERS: Emergency Provider Emergency Medicine; PCP Family Medicine; Visit Provider Emergency Medicine
DX: O99.611 Diseases of the digestive system complicating pregnancy, first trimester (principal); K02.9 Dental caries, unspecified; Z87.891 Personal history of nicotine dependence; K08.89 Other specified disorders of teeth and supporting structures; K06.8 Other specified disorders of gingiva and edentulous alveolar ridge; Z3A.00 Weeks of gestation of pregnancy not specified
CPT/HCPCS: 99283

== ENCOUNTER 2024-10-11 23:39 | Emergency (ER) | payer MEDICAID, SELFPAY ==
[2024-10-11 23:39] VITALS: BP 141/92; PULSE 80; RESP 16; TEMP 36.6; O2SAT 99; BMI 26.7
[2024-10-12] MEDS: Ondansetron 4 MG/2 ML Vial IV (00:17)
[2024-10-12] MEDS: 0.9% Normal Saline (1000mL) 1,000 ML 999 ML IV (00:17)
[2024-10-12 00:27] LABS: Absolute Lymphocyte Count 2.83 X10^3/uL (0.83-4.51); Basophil# 0.04 X10^3/uL; Basophil% 0.5 % (0-1); Eosinophil# 0.52 X10^3/uL; Eosinophils% 6.5 % (0-5); Hematocrit 37.6 % (37-47); Hemoglobin 12.2 g/dL (12.0-15.0); Lymphocyte # 2.83 X10^3/ul (0.83-4.51); Lymphocyte % 35.3 % (19-41); Mean Corp Hgb Conc 32.4 g/dL (32-36); Mean Corpuscular Hgb 26.1 pg (27.0-32.0); Mean Corpuscular Volume 80.5 fL (81-99); Mean Platelet Vol. 11.3 fl (6.2-12.0); Monocyte# 0.59 X10^3/uL; Monocyte% 7.4 % (0-10); NRBC Flagged by Analyzer 0 % (0-5); Neutrophil # 4.02 X10^3/uL (2.7-7.7); Neutrophil % 50.1 % (47-70); Platelet Count 213 K/mm3 (150-450); RBC Distribution Width CV 14.3 % (11.6-14.6); RBC Distribution Width SD 41.6 fl (35.1-43.9); Red Blood Count 4.67 M/mm3 (4.2-5.4)
[2024-10-12 00:50] LABS: AST(SGOT) 14 U/L (<=31); Alanine Aminotransfer ALT/SGPT 14 U/L (<=34); Albumin, Serum 4.3 g/dL (3.5-5.0); Alkaline Phosphatase 92 U/L (35-104); Anion Gap 11 (5-15); BUN 15 mg/dL (4-19); BUN/Creat Ratio 17.4 RATIO (10-20); Bilirubin, Direct 0.11 mg/dL (0.00-0.30); Calcium,Total 9.2 mg/dL (7.6-11.0); Carbon Dioxide 22.3 mmol/L (21.0-32.0); Chloride 104 mmol/L (98-108); Creatinine, Serum 0.87 mg/dL (0.70-1.20); EST Glomerular Filtration Rate 94 (>60); Estimated Creatinine Clearance 97.15 ml/min (50-250); Globulin 3.1 g/dL (2.2-4.2); Glucose 100 mg/dL (70-99); Lipase 26 U/L (13-75); Protein, Total 7.4 g/dL (5.9-8.4); Sodium Level 137 mmol/L (133-145); Total Bilirubin 0.25 mg/dL (0.00-1.30)
[2024-10-12 01:16] LABS: hCG Titer Quant., Serum 37256 mIU/mL (<9 non-preg)
[2024-10-12 01:24] LABS: Color, Urine Yellow (Yellow); Glucose, Dipstick Normal (Normal); Ketone-Dipstick Negative (Negative); Leukocyte Esterase-Dipstick 500 /ul (Negative); Mucous, Urine 0 SEEN /hpf (<or=2+); Nitrite-Dipstick Negative (Negative); Occult Blood-Urine Negative /ul (Negative); Protein-Dipstick 15 mg/dl (Negative); Red Blood Cells-Urine 0 SEEN /hpf (0-5); Specific Gravity, Urine 1.015 (1.002-1.030); Urine Bilirubin Dipstick Negative (Negative); Urine Clarity Sl. Cloudy (Clear); Urine Urobilinogen Normal (Normal); Urine pH 6.5 (5.0 - 8.0)
[2024-10-12 01:32] VITALS: BP 136/89; PULSE 83; RESP 12; O2SAT 97
[2024-10-12 01:59] LABS: White Blood Cells >100 SEEN /hpf (0-5)
[2024-10-12 02:00] LABS: Amorphous Sediment 2+; Bacteria 2+ /hpf (None Seen); Squamous Epithelial Cells - UA 25-50 SEEN /hpf (5-10)
[2024-10-12] MEDS: AMOXICILLIN 500 MG CAPSULE PO (02:08)
--- NOTE | 2024-10-12 02:14 | EX.ED.DYSGE1 ---
HPI History of Present Illness Chief Complaint: Nausea/Vomiting Informant: patient Narrative Narrative: Patient is a with 1 spontaneous miscarriage who reports that she is approximately 10 weeks . She states that her most recent was delivered at 37 weeks secondary to hypertension and has been doing well at home and is approximately 4 months old. She states that based on her last menstrual cycle she believes she is approximately 10 to 12 weeks . She reports that over the last 2 to 3 days she has been having lower abdominal cramping slightly greater on the left. She reports that she has been nauseated as well without bouts of vomiting. She denies any fevers or chills vaginal bleeding discharge or dysuria. She states that today the cramping has been slightly more intense than it has been over the past few days and secondary to this comes in for evaluation. [facility] Medical History (Updated 10/12/24 @ 02:[address] Rizwan Cárdenas DO) (spontaneous vaginal delivery) Depression Family history of hearing loss at age younger than 7 years Gestational HTN Stillborn, normal History of placental abruption Trauma depression Anxiety Cervical myofascial strain Home Medications ?Medication ?Instructions ?Recorded ?Last Taken ?Type emijpiil-ksd-Qt-FA 1 mg 1 tab PO DAILY 09/13/21 02/17/22 09:00 History tablet amoxicillin 500 mg capsule 500 mg PO TID 7 days #21 caps 10/12/24 Unknown Rx ondansetron 4 mg disintegrating 4 mg PO TID PRN nausea and 10/12/24 Unknown Rx tablet vomiting #21 tabs Allergy/AdvReac Type Severity Reaction Status Date / Time walnut (walnuts) Allergy Severe Swelling Verified 10/11/24 23:39 corn AdvReac Other Verified 10/11/24 23:39 Social History number of children: 2 Smoking Status: Former smoker alcohol intake: former 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 ROS ROS ED Constitutional Constitutional ED: Denies chills or fever(s) Eyes Eyes: Denies change in vision ENT ENT ED: Denies sore throat Cardiovascular Cardiovascular: Denies chest pain Respiratory/Chest Respiratory/Chest: Denies cough or dyspnea Gastrointestinal Gastrointestinal: Reports abdominal pain and nausea; Denies diarrhea or vomiting Genitourinary Genitourinary ED: Denies dysuria or hematuria Musculoskeletal Musculoskeletal: Denies back pain Integumentary Denies rash Neurologic Neurologic: Denies headache(s) Hematologic/Lymphatic Hematologic/Lymphatic: Denies easy bleeding or easy bruising EXAM Physical Exam Const Vital Signs: 10/11/24 23:39 10/12/24 01:32 Temperature 97.8 F Temperature Source Oral Pulse Rate 80 83 Respiratory Rate 16 12 Blood Pressure 141/92 H 136/89 H Blood Pressure Mean 108 104 Pulse Ox 99 97 Oxygen Delivery Method Room Air Room Air Positive well nourished and well developed General Appearance ED: well developed; Negative for pallor HEENT Reports dry mucous membranes HEENT Narrative: Mucous membranes are mildly dry and tacky No tongue or lip swelling no oral lesions no airway edema or compromise No secondary findings in the posterior pharynx to suggest infection Mouth ED: Yes dry mucous membranes Mouth: dry mucous membranes Eyes PERRL and EOMs intact bilaterally General Eye ED: Negative for scleral icterus Neck supple Neck Narrative: No nuchal rigidity or meningeal signs noted Resp normal respiratory effort and clear to auscultation bilaterally Cardio regular rate and regular rhythm Rate: other Other Details: Regular rate and rhythm without murmurs rubs or gallops Radial and carotid pulses are equal and symmetric GI non-distended and no masses GI Narrative: Abdomen is soft and nondistended with hyperactive bowel sounds There is mild pain with palpation in the right lower and suprapubic region. No voluntary guarding or rigidity. No pulsatile mass. The fundus is not palpated which is consistent with reported gestational age. Of note the patient reported her cramping has been in the left lower quadrant but there is no pain with palpation at this site. Auscultation: hyperactive bowel sounds Palpation: soft Back/Spine no CVA tenderness Extremity normal to inspection Extremity Narrative: No asymmetric edema no pitting edema negative Homans' sign bilaterally Neuro oriented x3, CN's II-XII intact bilaterally and no sensory deficits noted Sensorium / Orientation: alert Motor Exam: strength 5/5 throughout Psych mental status grossly normal Skin no rashes or lesions noted and no wounds Skin Narrative: Skin turgor is slightly increased General Skin Exam: Negative for jaundice or pallor MDM MDM MDM Narrative Medical decision making narrative: Patient presented to the ER with a soft nonsurgical abdomen. She reported nausea as well as lower abdominal cramping. Differential diagnosis is for viral stomach infection such as norovirus versus rotavirus versus hyperemesis gravidarum. As patient's physical exam does show changes consistent with mild dehydration there is concern for LEONA or clinically significant electrolyte abnormality. Patient also could have a potential UTI. There is concern for spontaneous miscarriage versus ectopic . Blood work revealed no clinically significant findings. White count is normal going against systemic infection creatinine is normal going against LEONA and electrolytes revealed no clinically significant changes. Patient's urine sample does show +2 bacteria but there is contamination. No blood is noted. As she is I will place her on antibiotics while the urine is sent for culture. I did do a bedside transabdominal ultrasound. Based on this study there appears to be a gestational sac and yolk sac within the uterus consistent with an IUP. The patient's quantitative hCG value is approximately 37,000 which does correlate with a 10 to 12-week status. At this time as the hCG value correlates with her reported gestational age bedside ultrasound does not reveal an empty uterus or obvious external mass and she has been pain-free with palpation in the location she was reported the most significant cramping/pain I do not feel there is need for an emergent formal ultrasound. I feel patient can wait a few hours until normal business functioning and have an outpatient ultrasound obtained to further assess her status. After IV hydration and Zofran patient reported feeling better. We discussed the need for emergent versus outpatient ultrasound in the next few hours. The patient states that as she has has had spontaneous improvement of her symptoms and she is not having bleeding she feels that outpatient ultrasound is also the most appropriate option. Therefore should be discharged home with prescriptions for Zofran and amoxicillin to help with potential UTI and nausea as well as an order form for outpatient transvaginal ultrasound to further assess her status. She agrees to return to the ER if she develops worsening pain fever or vaginal bleeding. History & Record Review Discussion w/independent historian: Patient Lab Data Attestation: I reviewed the patient's lab results. Labs: Laboratory Results - last 24 hr 10/11/24 10/12/24 10/12/24 00:22 00:19 01:18 WBC 8.0 RBC 4.67 Hgb 12.2 Hct 37.6 MCV 80.5 L MCH 26.1 L MCHC 32.4 RDW Std Deviation 41.6 RDW Coeff of Joe 14.3 Plt Count 213 MPV 11.3 Immature Gran % (Auto) 0.200 Neut % (Auto) 50.1 Lymph % (Auto) 35.3 [place] % (Auto) 7.4 Eos % (Auto) 6.5 H Baso % (Auto) 0.5 Absolute Neuts (auto) 4.0 Absolute Lymphs (auto) 2.83 Nucleated RBC % 0 Sodium 137 Potassium 4.0 Chloride 104 Carbon Dioxide 22.3 Anion Gap 11 BUN 15 Creatinine 0.87 Estim Creat Clear Calc 97.15 Est GFR (MDRD) Non-Af 94 BUN/Creatinine Ratio 17.4 Glucose 100 H Calcium 9.2 Total Bilirubin 0.25 Direct Bilirubin 0.11 AST 14 ALT 14 Alkaline Phosphatase 92 Total Protein 7.4 Albumin 4.3 Globulin 3.1 Lipase 26 HCG, Quant 61936 H Urine Color Yellow Urine Clarity Sl. Cloudy Urine pH 6.5 Ur Specific [place] 1.015 Urine Protein 15 H Urine Glucose (UA) Normal Urine Ketones Negative Urine Occult Blood Negative Urine Nitrite Negative Urine Bilirubin Negative Urine Urobilinogen Normal Ur Leukocyte Esterase 500 H Urine RBC 0 SEEN Urine WBC >100 SEEN Ur Squamous Epith Cells 25-50 SEEN Amorphous Sediment 2+ Urine Bacteria 2+ Urine Mucus 0 SEEN Blood Type A POSITIVE Discharge Plan Triage Chief Complaint: Nausea/Vomiting ED Provider: Rizwan Cárdenas Dx/Rx/DC Orders Clinical Impression: Abdominal pain affecting , UTI (urinary tract infection), Nausea, Mild dehydration Instructions: When to Call Up to ..., Abdominal Pain Prescriptions: New amoxicillin 500 mg capsule 500 mg PO TID 7 Days Qty: 21 0RF ondansetron 4 mg tablet,disintegrating 4 mg PO TID PRN (Reason: nausea and vomiting) Qty: 21 2RF No Action mrgcibmq-zsu-Hc-FA 1 mg Tablet 1 tab PO DAILY Other Ambulatory Orders: Transvaginal w/Preg US (Routine) Facility: [facility] - Location: [facility] Ordered By: Dr. Rizwan Cárdenas Primary Care Provider: David Mckinney Referrals: David Mckinney MD [Primary Care Provider] - Margarita Alcala MD [Med Staff - Active Staff] - Activity Restrictions/Additional Instructions: Your urine sample today showed changes concerning for a UTI and therefore take the antibiotic as directed. Continue with Zofran to prevent further bouts of nausea and keep yourself well-hydrated. In order to further assess the cause of your abdominal pain during obtain the outpatient transvaginal ultrasound as ordered. If you develop worsening pain a fever or vaginal bleeding or have any further concerns please return to the ER for repeat evaluation. Print Language: Belarusian Disposition Disposition: Home, Self Care Discharge Date/Time: 10/12/24 02:22
== END 2024-10-12 02:22 | disposition home or self-care (01) ==
PROVIDERS: Emergency Provider Emergency Medicine; PCP Family Medicine; Visit Provider Emergency Medicine
DX: O99.891 Other specified diseases and conditions complicating pregnancy (principal); O23.41 Unspecified infection of urinary tract in pregnancy, first trimester; O21.9 Vomiting of pregnancy, unspecified; Z87.891 Personal history of nicotine dependence; R10.9 Unspecified abdominal pain; Z3A.10 10 weeks gestation of pregnancy; O99.281 Endocrine, nutritional and metabolic diseases complicating pregnancy, first trimester; E86.0 Dehydration
CPT/HCPCS: 80048; 80076; 81001; 83690; 84702; 85025; 86900; 86901; 87086; 87088; 96361; 96374; 99284; A4216; J2405

== ENCOUNTER → 2024-10-21 | Outpatient (CLI) | payer MEDICAID, SELFPAY ==
--- NOTE | 2024-10-21 16:34 | US_ITS ---
PROCEDURE: TRANSVAGINAL W/PREG US 10/21/2024 REASON FOR EXAM: ABDOMINAL PAIN TECHNIQUE: High resolution obstetric ultrasound performed using a 2D transducer. Standard views obtained, including biometry, anatomy survey, and Doppler studies. FINDINGS Transabdominal and transvaginal imaging The uterus measures 12.1 x 7.8 x 6.3 cm and appears within limits. The cervix appears closed. The right ovary measures 3 x 1.9 x 1.7 cm and the left ovary measures 2.6 x 2.7 x 1 cm. The ovaries appear within limits. No evidence of adnexal mass. No free fluid seen. A single live intrauterine fundal portion of the uterus with heart tones 161 beats per minute measures 7 weeks and 6 days by mean sac diameter and 7 weeks 6 days by crown-rump length. Estimated gestational age by ultrasound 7 weeks and 6 days, JANE 06/03/2025. Estimated gestational age by LMP 9 weeks 1 day, JANE 05/25/2025. 3 mm yolk sac is present. There is a debi sac subchorionic hemorrhage measuring 2.4 x 0.9 x 1.5 cm. US/Transvaginal w/Preg US IMPRESSION: A single live intrauterine fundal portion of the uterus with he art tones 161 beats per minute. There is a debi sac subchorionic hemorrhage measuring 2.4 x 0.9 x 1.5 cm. Estimated gestational age by ultrasound 7 weeks and 6 days, JANE 06/03/2025. Est imated gestational age by LMP 9 weeks 1 day, JANE 05/25/2025. Reading Location: [id number]
== END | disposition home or self-care (01) ==
LOC: US 16:33
PROVIDERS: PCP Family Medicine; Referring Provider Emergency Medicine; Visit Provider Emergency Medicine
DX: R10.9 Unspecified abdominal pain (principal)
CPT/HCPCS: 76817

== ENCOUNTER 2024-12-11 13:46 | Emergency (ER) | payer MEDICAID, SELFPAY ==
[2024-12-11 13:47] VITALS: BP 132/79; PULSE 93; RESP 16; TEMP 37.1; O2SAT 99; BMI 28.6
--- NOTE | 2024-12-11 13:53 | ED.RN ---
consulted dr gomez pt sent to OB for evaluation.
--- NOTE | 2024-12-11 14:25 | EKG12_ITS ---
Test Reason : CP Blood Pressure : */* mmHG Vent. Rate : 75 BPM Atrial Rate : 75 BPM P-R Int : 132 ms QRS Dur : 82 ms QT Int : 402 ms P-R-T Axes : 15 66 49 degrees QTcB Int : 448 ms Normal sinus rhythm Normal ECG Confirmed by Josh Dudley ([id number]), film or videotape editor RADHAMES OSPINA ([id number]) on 12/14/2024 11:47:52 AM Referred By: [facility]G Confirmed By: Josh Dudley
--- NOTE | 2024-12-11 14:25 | EDS_ITS ---
HPI HPI - GI History of Present Illness Chief Complaint: Abd Pain Informant: patient Narrative Narrative: G5, P4 15-16 with gestation followed by [facility]. Awake and abdominal discomfort this morning that resolved she had lightheaded symptoms. No urinary symptoms. No vaginal bleeding. No cough. No chest pains. She has seen her OB team confirm intrauterine . Prior similar symptoms: No PFSH PFSH Medical History (spontaneous vaginal delivery) Depression Family history of hearing loss at age younger than 7 years Gestational HTN Stillborn, normal History of placental abruption Trauma depression Anxiety Cervical myofascial strain Home Medications ?Medication ?Instructions ?Recorded ?Last Taken ?Type mkooaxtb-vqi-Gp-FA 1 mg 1 tab PO DAILY pregna ncy 09/13/21 02/17/22 09:00 History tablet amoxicillin 500 mg capsule 500 mg PO TID 7 days #21 ca ps 10/12/24 Unknown Rx ondansetron 4 mg disintegrating 4 mg PO TID PRN nausea and 10/12/24 Unknown Rx tablet vomiting #21 tabs nitrofurantoin 100 mg PO Q12 #10 CAPSULES 0 12/11/24 Unknown Rx monohydrate/macrocrystals 100 mg capsule Allergy/AdvReac Type Severity Reaction Status Date / Time walnut (walnuts) Allergy Severe Swelling Verified 12/11/24 13:47 corn AdvReac Other Verified 12/11/24 13:47 Social History number of children: 2 Smoking Status: Former smoker alcohol intake: former 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 ROS ROS ED Constitutional Constitutional ED: Denies chills, fever(s) or sweats ENT ENT ED: Denies sore throat Cardiovascular Cardiovascular: Reports other Details: Lightheaded ; Denies chest pain, leg edema, palpitations or racing heartbeat Respiratory/Chest Respiratory/Chest: Denies cough, dyspnea or dyspnea on exertion Gastrointestinal Gastrointestinal: Reports abdominal pain; Denies diarrhea, nausea or vomiting Genitourinary Genitourinary ED: Denies dysuria, hematuria or urinary frequency Musculoskeletal Musculoskeletal: Denies back pain, extremity pain or neck pain Integumentary Denies rash or wounds Neurologic Neurologic: Denies headache(s), paresthesias or weakness EXAM Physical Exam Const Vital Signs: 12/11/24 13:47 Temperature 98.8 F Temperature Source Oral Pulse Rate 93 Respiratory Rate 16 Blood Pressure 132/79 H Blood Pressure Mean 96 Pulse Ox 99 Oxygen Delivery Method Room Air Positive well nourished and well developed General Appearance ED: well developed and NAD HEENT Reports moist mucous membranes normocephalic and atraumatic Eyes General Eye ED: Yes normal appearance of both eyes Neck full ROM Chest Wall Chest: Negative for tenderness Resp normal respiratory effort and normal air movement Effort and Inspection: symmetric chest movement; Negative for respiratory distress Cardio regular rate, regular rhythm and no murmurs Peripheral Pulses: pulses 2+ throughout GI normal to inspection, nondistended, normoactive bowel sounds and non-tender GI Narrative: Negative Langley's or McBurney's tenderness. Palpation: Negative for guarding or rebound tenderness present Extremity normal to inspection General Extremety ED: Negative for edema or tenderness General Extremity: Negative for edema Neuro oriented x3 and no sensory deficits noted Sensorium / Orientation: awake and alert Skin no rashes or lesions noted and no wounds MDM MDM MDM Narrative Medical decision making narrative: Interventions / MDM: Differential diagnosis: First trimester , abdominal pain, UTI and Diagnosis considered but do not suspect: N/A My EKG interpretation: Sinus rate of 75, no ST or T wave changes QTc 448. Imaging independently reviewed and interpreted by myself: N/A External documents reviewed: N/A Test considered but not ordered:N/A ED course: Transabdominal pain. Lightheaded symptoms. EKG normal. Will check abdominal labs and urine. Will reevaluate. 1515: Bedside ultrasound intrauterine heart tone 154. Symptoms staying away. Labs stable normal lipase normal creatinine normal electrolytes white count 7.5. Awaiting urine. While awaiting urine, patient reported nursing she had to leave but she has children at home. Discussed with patient we will call her with results. 2255: Results of the urine positive for infection urine culture sent. Called the patient left message to hop picker prescription at her pharmacy. Re-evaluation: stable Disposition discussed with patient/family/significant other: Patient Case discussed with consulting clinician: N/A This note was generated with [employer] dictation software. It may contain incorrect words, spelling, and punctuation that were not noted in checking the note before signing. Lab Data Attestation: I reviewed the patient's lab results. Labs: Laboratory Results - last 24 hr 12/11/24 12/11/24 14:30 15:40 WBC 7.5 RBC 3.98 L Hgb 11.0 L Hct 34.1 L MCV 85.7 MCH 27.6 MCHC 32.3 RDW Std Deviation 45.6 H RDW Coeff of Joe 14.6 Plt Count 176 MPV 12.0 Immature Gran % (Auto) 0.400 Neut % (Auto) 69.3 Lymph % (Auto) 20.5 [place] % (Auto) 4.6 Eos % (Auto) 4.7 Baso % (Auto) 0.5 Absolute Neuts (auto) 5.2 Absolute Lymphs (auto) 1.53 Nucleated RBC % 0 Sodium 137 Potassium 3.5 Chloride 107 Carbon Dioxide 18.6 L Anion Gap 12 BUN 6 Creatinine 0.53 L Estim Creat Clear Calc 164.63 Est GFR (MDRD) Non-Af 130 BUN/Creatinine Ratio 12.0 Glucose 125 H Calcium 8.5 Total Bilirubin 0.24 AST 17 ALT 16 Alkaline Phosphatase 85 Total Protein 6.2 Albumin 3.3 L Globulin 2.9 Albumin/Globulin Ratio 1.1 Lipase 22 Urine Color Straw Urine Clarity Cloudy Urine pH 6.0 Ur Specific [place] 1.025 Urine Protein 15 H Urine Glucose (UA) Normal Urine Ketones Negative Urine Occult Blood Negative Urine Nitrite Negative Urine Bilirubin Negative Urine Urobilinogen Normal Ur Leukocyte Esterase 500 H Urine RBC 0-5 SEEN Urine WBC 10-25 SEEN Ur Squamous Epith Cells 0-5 SEEN Urine Bacteria 2+ Urine Mucus 0 SEEN Discharge Plan Triage Chief Complaint: Abd Pain ED Provider: [place] Dx/Rx/DC Orders Clinical Impression: Abdominal pain, Second trimester , UTI in Instructions: 2nd Trimester [employer], ED Abdominal Pain Unkn Cause Fem Prescriptions: New nitrofurantoin monohyd/m-cryst 100 mg capsule 100 mg PO Q12 Qty: 10 0RF No Action pknitptw-nrb-Qx-FA 1 mg Tablet 1 tab PO DAILY amoxicillin 500 mg capsule 500 mg PO TID 7 Days Qty: 21 0RF ondansetron 4 mg tablet,disintegrating 4 mg PO TID PRN (Reason: nausea and vomiting) Qty: 21 2RF Primary Care Provider: David Mckinney Referrals: David Mckinney MD [Primary Care Provider] - Margarita Alcala MD [Med Staff - Active Staff] - Keep Vianey appointment Activity Restrictions/Additional Instructions: heart rate 154 on bedside ultrasound. Your abdominal labs were normal. Your urine results were pending however you needed to leave before results. No urinary symptoms. Keep your follow-up with your OB team. Print Language: Latvian Disposition Disposition: Home, Self Care Discharge Date/Time: 12/11/24 16:00
--- OUTSIDE RECORDS SUMMARY | 2024-12-11 14:43 | XMS RPT_ITS | CCD ---
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 CORN 11/10/2023 5 - Intolerance SEASONAL ALLERGIES 11/10/2023 3 - Cough Date Reviewed: 11/18/2024 Reviewed by: Shahzad Romero MA - Fully Assessed Reason for Visit: PRAF [4193] Prescriptions as of 11/19/2024 - aspirin, enteric coated (ECOTRIN LOW STRENGTH) 81 mg EC tablet Take 1 tablet by mouth once daily. - ondansetron orally disintegrating (ZOFRAN ODT) 4 mg disintegrating tablet TAKE 1 TABLET BY MOUTH THREE TIMES DAILY NEEDED FOR NAUSEA and FOR VOMITING - pantoprazole DR (PROTONIX) 20 mg tablet Take 1 tablet by mouth once daily. - PNV no.393-[id number]-[id number] e 29-1 mg tab Take 1 tablet by mouth once daily. - ferrous sulfate 325 mg (65 mg iron) tablet Take 1 tablet by mouth once daily. Problem List As Of Date 11/19/2024 Noted Resolved Supervision of high risk in third tri*11/13/2023 07/01/2024 History of IUFD [Z87.59] 11/13/2023 11/13/2023 Endometritis [N71.9] 11/13/2023 07/01/2024 History of gestational hypertension [Z87.59] 11/13/2023 History of IUFD [Z87.59] 11/13/2023 07/01/2024 History of drug abuse (HCC) [F19.11] 11/13/2023 Antepartum anemia complicating in thi*04/14/2024 07/01/2024 Polyhydramnios in third trimester [O40.3XX0] 05/14/2024 07/29/2024 Obesity complicating , third trimester*06/03/2024 07/01/2024 Benign gestational thrombocytopenia in third tr*06/03/2024 07/01/2024 Maternal iron deficiency anemia complicating pr*06/09/2024 Breech presentation with problem [O32*06/11/2024 07/01/2024 Positive GBS test [B95.1] 06/14/2024 07/01/2024 Late care (HCC) [O09.30] 11/18/2024 Generalized anxiety disorder [F41.1] Vapes nicotine containing substance [Z72.0] 11/18/2024 Encounter for supervision of high risk pregnanc*11/18/2024 Encounter Status:Closed by JUSTIN VALENTINO on 11/19/24 Normal [facility] PCINUDCE79 PLUSon 11-19-2024 Cell-free DNA./Cell-free DNA.total Dosage of chromosome-specific cfDNA (cfDNA) [Molar fraction] 16% Normal [facility] Comment on above: Order Comment: Speci men Type: BLOOD SPECIMENOrdering Facility: [facility] Address: [address] [place] [address] Performed By: #### M AT21 ####[employer] LABCLIA [id number] [facility] [place] [address] Chr 13+18+21+X+Y aneuploidy Dosage of chromosome-specific cfDNA Ql (cfDNA) Negative Normal [facility] Comment on above: Order Comment: Speci men Type: BLOOD SPECIMENOrdering Facility: [facility] Address: [address] [place] [address] Performed By: #### M AT21 ####[employer] LABCLIA [id number] [place] [id number] Chr 21 trisomy Dosage of chromosome-specific cfDNA Ql (cfDNA) Negative Normal [facility] Comment on above: Order Comment: Speci men Type: BLOOD SPECIMENOrdering Facility: [facility] Address: [address] [place] [address] Performed By: #### M AT21 ####[facility] LABCLIA [id number] [place] [address] Chr X and Y aneuploidy risk Sequencing Ql (cfDNA) [Interp] Not detected Normal [facility] Comment on above: Order Comment: Speci men Type: BLOOD SPECIMENOrdering Facility: [facility] Address: [address] [place] [address] Result Comment: Not Detected Not Detected Performed By: #### M AT21 ####[facility] LABCLIA [id number] [place] [address] Citation Jose (Reference lab test) Comment Normal [facility] Comment on above: Order Comment: Speci men Type: BLOOD SPECIMENOrdering Facility: [facility] Address: [address] [place] [address] Result Comment: 1. P sonali HAYS, et al. Jahaira Med. 2012;14(3):296-305. 2. Latha WADE, et al. Prenat Diag. 2013;33(6):591-597. 3. Bryn C, et al. Clin Chem. 2015 Apr;61(4):608-616. 4. Paul HAYS, et al. Jahaira Med. 2011;13(11):913-920. 5. ACOG/[facility] Practice Bulletin No. 226, Mar 2020. Performed By: #### M AT21 ####[facility] LABCLIA [id number] [place] [address] Gestational age Estimated from conception date Marquez Normal [facility] Comment on above: Order Comment: Speci men Type: BLOOD SPECIMENOrdering Facility: [facility] Address: [address] [place] [address] Performed By: #### M AT21 ####[facility] LABCLIA [id number] [place] [address] GESTATIONALAGE AGE > OR = 9W Yes Normal [facility] Comment on above: Order Comment: Speci men Type: BLOOD SPECIMENOrdering Facility: [facility] Address: [address] [place] [address] Performed By: #### M AT21 ####[facility] LABCLIA [id number] [place] [address] Laboratory comment Jose (Report) Comment Normal [facility] Comment on above: Order Comment: Speci men Type: BLOOD SPECIMENOrdering Facility: [facility] Address: [address] [place] [address] Result Comment: The MaterniT(R) 21 PLUS laboratory-developed test (LDT) analyzes circulating cell-free DNA from a maternal blood sample. This test is used for screening purposes and not diagnostic. Clinical correlation is recommended. Validation data on twin pregnancies is limited and the ability of this test to detect aneuploidy in higher multiple gestations has not yet been validated. Performed By: #### M AT21 ####[employer] LABCLIA [id number] [place] [address] director of user experience name Nom (Provider) Comment Normal [facility] Comment on above: Order Comment: Speci men Type: BLOOD SPECIMENOrdering Facility: [facility] Address: [address] [place] [address] Result Comment: This specimen showed an expected representation of chromosome 21, 18 and 13 material. Clinical correlation is suggested. Comment Torito Butler MD, PhD, Director, Minus Performed By: #### M AT21 ####[employer] LABCLIA [id number] [place] [address] LIMITATIONS OF THE TEST Comment Normal [facility] Comment on above: Order Comment: Speci men Type: BLOOD SPECIMENOrdering Facility: [facility] Address: [address] [place] [address] [place] [address] Result Comment: Kayli talbot the results of these tests are highly reliable, discordant results, including inaccurate sex prediction, may occur due to placental, maternal, or mosaicism or neoplasm; vanishing twin; prior maternal organ transplant; or other causes. These tests are screening tests and not diagnostic; they do not replace the accuracy and precision of diagnosis with CVS or amniocentesis. A patient with a positive test result should be referred for genetic counseling and offered invasive diagnosis for confirmation of test results.[5] The results of this testing, including the benefits and limitations, should be discussed with a qualified healthcare provider. management decisions, including termination of the , should not be based on the results of these tests alone. The healthcare provider is responsible for the use of this information in the management of their patient. Sex chromosomal aneuploidies are not reportable for known multiple gestations. A negative result does not ensure an unaffected nor does it exclude the possibility of other chromosomal abnormalities or defects which are not a part of these tests. An uninformative result may be reported, the causes of which may include, but are not limited to, insufficient sequencing coverage, noise or artifacts in the region, amplification or sequencing bias, or insufficient fraction. These tests are not intended to identify pregnancies at risk for neural tube defects or ventral wall defects. Testing for whole chromosome abnormalities (including sex chromosomes) and for subchromosomal abnormalities could lead to the potential discovery of both and maternal genomic abnormalities that could have major, minor, or no, clinical significance. Evaluating the significance of a positive or a non-reportable result may involve both invasive testing and additional studies on the mother. Such investigations may lead to a diagnosis of maternal chromosomal or subchromosomal abnormalities, which on occasion may be associated with benign or malignant maternal neoplasms. These tests may not accurately identify triploidy, balanced rearrangements, or the precise location of subchromosomal duplications or deletions; these may be detected by diagnosis with CVS or amniocentesis. The ability to report results may be impacted by maternal BMI, maternal weight, maternal systemic lupus erythematosus (SLE) and/or by certain pharmaceutical agents such as low molecular weight heparin (for example: Lovenox(R), Xaparin(R), Clexane(R) and Fragmin(R)). Performed By: #### M AT21 ####[employer] [facility] LABCLIA [id number] [place] [address] Monosomy X risk Dosage of chromosome-specific cfDNA Ql (Plasma cell-free+WBC DNA) [Interp] Not detected Normal [facility] Comment on above: Order Comment: Costa bergeron Type: BLOOD SPECIMENOrdering Facility: [facility] Address: [address] [place] [address] Performed By: #### M AT21 ####[facility] LABCLIA [id number] [place] [address] NEGATIVE PREDICTIVE VALUE Note Normal [facility] Comment on above: Order Comment: Costa elyssa Type: BLOOD SPECIMENOrdering Facility: [facility] Address: [address] [place] [address] Result Comment: The Negative Predictive Value (NPV) for trisomy 21, 18, and 13 is greater than 99%. The NPV for SCA and ESS cannot be calculated as SCA and ESS are only reported when an abnormality is detected. Performed By: #### M AT21 ####[employer] LABCLIA [id number] [place] [address] PERFORMANCE CHARACTERISTICS Note Normal [facility] Comment on above: Order Comment: Costa bergeron Type: BLOOD SPECIMENOrdering Facility: [facility] Address: [address] [place] [address] Result Comment: ! Sex ! Accuracy: 99.4% ! ! ! ! Region (associated syndrome) ! Est. Sens# ! Est. Spec ! ! ! ! Trisomy 21 (Down Syndrome) ! 99.1% ! 99.9% ! ! ! ! Trisomy 18 (Millan Syndrome) ! >99.9% ! 99.6% ! ! ! ! Trisomy 13 (Patau Syndrome) ! 91.7% ! 99.7% ! ! ! ! Sex Chromosome Aneuploidies## ! 96.2% ! 99.7% ! ! ! * As reported in ISCA database nstd37 [https://www.ncbi.nlm.nih.gov/dbvar/studies/nstd37/ ] # Estimated Sensitivity. Sensitivity estimated across the observed size distribution of each syndrome [per ISCA database nstd37] and across the range of fractions observed in routine clinical NIPT. Actual sensitivity can also be influenced by other factors such as the size of the event, total sequence counts, amplification bias, or sequence bias. ## Marquez gestation only. Performed By: #### M AT21 ####[employer] [id number] [place] [address] POSITIVE PREDICTIVE VALUE N/A Normal [facility] Comment on above: Order Comment: Speci men Type: BLOOD SPECIMENOrdering Facility: [facility] Address: [address] [place] [address] Performed By: #### M AT21 ####[facility] LABCLIA [id number] [place] [address] Reference Lab Test Method Comment Normal [facility] Comment on above: Order Comment: Speci men Type: BLOOD SPECIMENOrdering Facility: [facility] Address: [address] [place] [address] Result Comment: See Notes Circulating cell-free DNA was purified from the plasma component of maternal blood. The extracted DNA was then converted into a genomic DNA library for aneuploidy analysis of chromosomes 21, 18, and 13 via next generation sequencing.[1] Optional findings based on the test order include sex chromosome aneuploidy (SCA)[2], and enhanced sequencing series (ESS)[3], which will only be reported on as an additional finding when an abnormality is detected. SCA testing includes information on X and Y representation, while ESS testing includes deletions in selected regions (22q, 15q, 11q, 8q, 5p, 4p, 1p) and trisomy of chromosomes 16 and 22. Performed By: #### M AT21 ####[employer] LABCLIA [id number] [place] [address] Service comment (Unsp spec) [Interp] Comment Normal [facility] Comment on above: Order Comment: Speci men Type: BLOOD SPECIMENOrdering Facility: [facility] Address: [address] [place] [address] Result Comment: See Notes [employer] is a subsidiary of [employer], using the brand [facility]. This test was developed and its performance characteristics determined by [employer]. It has not been cleared or approved by the Food and Drug Administration. This laboratory is certified under the Clinical Laboratory Improvement Amendments (CLIA) as qualified to perform high complexity clinical laboratory testing and accredited by the [employer] (CAP). If there is future clinical need for adding MaterniT GENOME testing, this specimen will be available until term. [facility] samples will not be retained beyond 60 days. [facility] patients will have to send a new sample for re-sequencing ([facility] Test Code: 639922). Performed By: #### M AT21 ####[employer] LABCLIA [id number] [place] [address] Sex Dosage of chromosome-specific cfDNA Nom (cfDNA) Comment Normal [facility] Comment on above: Order Comment: Speci men Type: BLOOD SPECIMENOrdering Facility: [facility] Address: [address] [place] [address] Result Comment: Cons istent with Female Performed By: #### M AT21 ####[facility] LABCLIA [id number] [place] [address] Test performance information Jose (Unsp spec) Comment Normal [facility] Comment on above: Order Comment: Speci men Type: BLOOD SPECIMENOrdering Facility: [facility] Address: [address] [place] [address] Result Comment: The performance characteristics of the MaterniT(R) 21 PLUS laboratory-developed test (LDT) have been determined in a clinical validation study with women at increased risk for chromosomal aneuploidy.[1-4] Performed By: #### M AT21 ####[employer] LABCLIA [id number] [place] [address] Trisomy 13 risk Dosage of chromosome-specific cfDNA Ql (cfDNA) [Interp] Negative Normal [facility] Comment on above: Order Comment: Speci men Type: BLOOD SPECIMENOrdering Facility: [facility] Address: [address] [place] [address] Performed By: #### M AT21 ####[facility] LABCLIA [id number] [place] [address] Trisomy 18 risk Dosage of chromosome-specific cfDNA Ql (Plasma cell-free+WBC DNA) [Interp] Negative Normal [facility] Comment on above: Order Comment: Speci men Type: BLOOD SPECIMENOrdering Facility: [facility] Address: [address] [place] [address] Performed By: #### M AT21 ####[employer] LABCLIA [id number] [place] [address] C. trachomatis+N. gonorrhoea e DNA OFELIA+probe Ql (Unsp spec)on 11-18-2024 C. trachomatis rRNA OFELIA+probe Ql (Unsp spec) Not detected Normal Not detected [facility] Comment on above: Order Comment: Speci men Type: BLOOD SPECIMEN [facility] Address: [address] [place] [address] Performed By: #### 5 8410-2 #### [facility] CLIA [id number] [address] [place] [address] N. gonorrhoeae rRNA OFELIA+probe Ql (Unsp spec) Not detected Normal Not detected [facility] Comment on above: Order Comment: Speci men Type: BLOOD SPECIMEN [facility] Address: [address] [place] [address] Performed By: #### 5 8410-2 #### [facility] CLIA [id number] [address] [place] [address] OF [facility] POC QUILL MACHINE OPERATOR ULTRASOUNDon 11-19-19 25 Indication Viability; confirm cardiac activity, Uncertain dates Impression Single intrauterine gestational sac, cardiac activity is visualized, CRL indicates discrepancy from clinical dates, JANE based on today's ultrasound Recommendations Follow up for 1st Trimester Anatomy with Nuchal Translucency as clinically indicated if desired. Method Transabdominal ultrasound examination. Marquez . Number of fetuses: 1 Dating LMP on: 08/19/2024 GA by LMP 13 w + 0 d JANE by LMP: 05/26/2025 Ultrasound examination on: 11/18/2024 GA by U/S based upon: CRL GA by U/S 12 w + 1 d JANE by U/S: 06/01/2025 Assigned: based on ultrasound (CRL), selected on 11/18/2024 Assigned GA 12 w + 1 d Assigned JANE: 06/01/2025 Biometry Standard CRL 56.0 mm 12w 1d 37% Hadlock Assessment CRL 56.0 mm 12w 1d 37% Hadlock Performed By: Johana Turner CNM Read By: Johana Turner CNM MATERNAL MEDICINE [facility] Radiology Study observation (narrative) [facility] CBC panel Auto (Bld)on 11-11 Erythrocyte distribution width (RBC) [Ratio] 15.1 % High 11.5-15.0 [facility] Comment on above: Order Comment: Speci men Type: BLOOD SPECIMEN [facility] Address: [address] [place] [address] Performed By: #### 5 8410-2 #### [facility] CLIA [id number] [address] [place] [address] [place] Hematocrit (Bld) [Volume fraction] 34.1 % Low 36.0-46.0 [facility] Comment on above: Order Comment: Speci men Type: BLOOD SPECIMEN [facility] Address: [address] [place] [address] Performed By: #### 5 8410-2 #### [facility] CLIA [id number] [address] [place] [address] [place] Hemoglobin (Bld) [Mass/Vol] 11.0 g/dL Low 11.5-15.5 [facility] Comment on above: Order Comment: Speci men Type: BLOOD SPECIMEN [facility] Address: [address] [place] [address] Performed By: #### 5 8410-2 #### [facility] CLIA [id number] [address] [place] [address] [place] MCH (RBC) [Entitic mass] 26.8 pg Normal 26.0-34.0 [facility] Comment on above: Order Comment: Speci men Type: BLOOD SPECIMEN [facility] Address: [address] [place] [address] Performed By: #### 5 8410-2 #### [facility] [id number] [address] [place] [address] [place] MCHC (RBC) [Mass/Vol] 32.3 g/dL Normal 30.5-36.0 [facility] Comment on above: Order Comment: Speci men Type: BLOOD SPECIMEN [facility] Address: [address] [place] [address] Performed By: #### 5 8410-2 #### [facility] CLIA [id number] [address] [place] [address] [place] MCV (RBC) [Entitic vol] 83.2 fL Normal 80.0-100.0 [facility] Comment on above: Order Comment: Speci men Type: BLOOD SPECIMEN [facility] Address: [address] [place] [address] Performed By: #### 5 8410-2 #### [facility] CLIA [id number] [address] [place] [address] [place] Nucleated RBC (Bld) [#/Vol] 10*3/uL Normal <0.01 [facility] Comment on above: Order Comment: Speci men Type: BLOOD SPECIMEN [facility] Address: [address] [place] [address] Performed By: #### 5 8410-2 #### [facility] CLIA [id number] [address] [place] [address] [place] Platelet mean volume (Bld) [Entitic vol] 10.9 fL Normal 9.0-12.7 [facility] Comment on above: Order Comment: Speci men Type: BLOOD SPECIMEN [facility] Address: [address] [place] [address] Performed By: #### 5 8410-2 #### [facility] CLIA [id number] [address] [place] [address] [place] Platelets (Bld) [#/Vol] 197 10*3/uL Normal 150-400 [facility] Comment on above: Order Comment: Speci men Type: BLOOD SPECIMEN [facility] Address: [address] [place] [address] Performed By: #### 5 8410-2 #### [facility] [id number] [address] [place] [address] [place] RBC (Bld) [#/Vol] 4.10 10*6/uL Normal 3.90-5.20 [facility] Comment on above: Order Comment: Speci men Type: BLOOD SPECIMEN [facility] Address: [address] [place] [address] Performed By: #### 5 8410-2 #### [facility] [id number] [address] [place] [address] [place] WBC (Bld) [#/Vol] 6.72 10*3/uL Normal 3.70-11.00 [facility] Comment on above: Order Comment: Speci men Type: BLOOD SPECIMEN [facility] Address: [address] [place] [address] Performed By: #### 5 8410-2 #### [facility] [id number] [address] [place] [address] [place] HBV surface Ag Ser Qlon 10-22 HBV surface Ag Ql (S) Negative Normal Negative [facility] Comment on above: Order Comment: Speci men Type: BLOOD SPECIMENOrdering Facility: [facility] Address: [address] [place] [address] Performed By: #### 5 195-3, 20882-5, 70330-6 ####[facility] LABCLIA [id number] [place] [address] [place] HCV Ab Ser Qlon 11-11-2024 HCV Ab Ql (S) Negative Normal Negative [facility] Comment on above: Order Comment: Speci men Type: BLOOD SPECIMENOrdering Facility: [facility] Address: [address] [place] [address] Result Comment: The result suggests no evidence of infection with Hepatitis C virus. Should recent infection be suspected, repeat testing may be considered 4-6 weeks after this draw. Performed By: #### 1 6128-1 ####[facility] LABIA [id number] [place] [address] [place] HIV 1+2 Ab IA Qlon 5 HIV 1 and 2 Ab IA.rapid Nom (S/P/Bld) Normal [facility] Comment on above: Order Comment: Speci men Type: BLOOD SPECIMENOrdering Facility: [facility] Address: [address] [place] [address] Result Comment: Test not indicated. Performed By: #### 5 195-3, 22062-5, 52775-9 ####[facility] [id number] [place] [address] [place] HIV 1+2 Ab+HIV1 p24 Ag IA Ql Non-Reactive Normal Nonreactive [facility] Comment on above: Order Comment: Speci men Type: BLOOD SPECIMENOrdering Facility: [facility] Address: [address] [place] [address] Performed By: #### 5 195-3, 87897-0, 80624-4 ####[facility] [id number] [place] [address] [place] HIV immunoassay testing algorithm interpretation (S/P/Bld) [Interp] Normal [facility] Comment on above: Order Comment: Speci men Type: BLOOD SPECIMENOrdering Facility: [facility] Address: [address] [place] [address] Result Comment: No e vidence of HIV-1 or HIV-2 infection. Should recent infection be suspected, repeat testing may be considered 2-3 weeks after this draw. [place] Rev. Code 3701.243(E): This information has been disclosed to you from confidential records protected from disclosure by state law. You shall make no further disclosure of this information without the specific, written, and informed release of the individual to whom it pertains or as otherwise permitted by state law. A general authorization for the release of medical or other information is not sufficient for the purpose of the release of HIV test results or diagnoses. Performed By: #### 5 195-3, 22190-9, 80234-0 ####[facility] [id number] [address] OF [facility] HbA1c (Bld)on 11-11-2024 Average glucose Estimated from glycated hemoglobin (Bld) [Mass/Vol] 88 mg/dL Normal [facility] Comment on above: Order Comment: Speci men Type: BLOOD SPECIMENOrdering Facility: [facility] Address: [address] [place] [address] Result Comment: eAG: (Estimated average glucose) is a calculated value from HgbA1c and is automotive leasing sales representative of the average blood glucose level in the last 2-3 month period. Performed By: #### 5 5454-3 ####[facility] LABIA [id number] [address] STATES [facility] HbA1c (Bld) [Mass fraction] 4.7 % Normal 4.3-5.6 [facility] Comment on above: Order Comment: Speci men Type: BLOOD SPECIMENOrdering Facility: [facility] Address: [address] [place] [address] Result Comment: Amer [place] Diabetes Association guidelines indicate that patients with HgbA1c in the range 5.7-6.4% are at increased risk for development of diabetes, and intervention by lifestyle modification may be beneficial. HgbA1c greater or equal to 6.5% is considered diagnostic of diabetes. Performed By: #### 5 5454-3 ####[facility]IA [id number] [address] OF [place] RUBELLA IGG ANTIBODYon 11-11 RUBELLA IGG AB, QUAL Positive Normal Positive [facility] Comment on above: Order Comment: Speci men Type: BLOOD SPECIMENOrdering Facility: [facility] Address: [address] [place] [address] Result Comment: The result suggests recent or past exposure to Rubella virus or history of Rubella vaccination. Positive result may also be seen due to presence of passively-transferred antibodies. Please correlate with patient's history. Performed By: #### R UBIGG ####[facility] LABIA [id number] [place] [id number] [place] Reagin and Treponema pallidu m IgG and IgM [Interp]on 11-11-2024 T. pallidum IgG+IgM IA Ql (S) Non-Reactive Normal Nonreactive [facility] Comment on above: Order Comment: Speci men Type: BLOOD SPECIMENOrdering Facility: [facility] Address: [address] [place] [address] Performed By: #### 5 195-3, 14691-2, 78016-4 ####[facility] LABIA [id number] [place] [address] [place] Reagin+T pallidum IgG+IgM Se rPl-Impon 11-11-2024 Reagin and Treponema pallidum IgG and IgM [Interp] Cannot exclude recent Treponemal infection if specimen collected within 7-10 days after appearance of suspect lesions or 2-3 weeks after an exposure. Clinical correlation is required. Normal [facility] Comment on above: Order Comment: Speci men Type: BLOOD SPECIMENOrdering Facility: [facility] Address: [address] [place] [address] Performed By: #### 5 195-3, 41198-6, 17473-8 ####[facility]IA [id number] [place] [id number] [place] TYPE + SCREEN PRENATALon ABO A Normal [facility] Comment on above: Order Comment: Speci men Type: BLOOD SPECIMEN [facility] Address: [address] [place] [address] Performed By: #### 5 8410-2 #### [facility] CLIA [id number] [address] [place] [address] [place] Rh Nom (Bld) Positive Normal [facility] Comment on above: Order Comment: Speci men Type: BLOOD SPECIMEN [facility] Address: [address] [place] [address] Performed By: #### 5 8410-2 #### [facility] CLIA [id number] [address] [place] [address] TYPE AND SCREEN EXPIRATION 11/14/2024 23:59 Normal [facility] Comment on above: Order Comment: Speci men Type: BLOOD SPECIMEN [facility] Address: [address] [place] [address] Performed By: #### 5 8410-2 #### [facility] CLIA [id number] [address] [place] [id number] [place] [address] [place] Transvaginal w/Preg USon Transvaginal w/Preg US [facility] [address] [place] [address] Transvaginal w/Preg US MR#: [id number] Acct: [id number] Name: SHILPA HOANG Rep #: [id number] : 1995 F 28 From: Keyon Tapia MD PCP: Dr. David Mckinney MD Status: REG CLI Study: Transvaginal w/Preg US Date of Exam: 10/21/24 Exam# [id number] Ordering Dr: Rizwan Cárdenas DO PROCEDURE: TRANSVAGINAL W/PREG US 10/21/2024 REASON FOR EXAM: ABDOMINAL PAIN TECHNIQUE: High resolution obstetric ultrasound performed using a 2D transducer. Standard views obtained, including biometry, anatomy survey, and Doppler studies. FINDINGS Transabdominal and transvaginal imaging The uterus measures 12.1 x 7.8 x 6.3 cm and appears within limits. The cervix appears closed. The right ovary measures 3 x 1.9 x 1.7 cm and the left ovary measures 2.6 x 2.7 x 1 cm. The ovaries appear within limits. No evidence of adnexal mass. No free fluid seen. A single live intrauterine fundal portion of the uterus with heart tones 161 beats per minute measures 7 weeks and 6 days by mean sac diameter and 7 weeks 6 days by crown-rump length. Estimated gestational age by ultrasound 7 weeks and 6 days, JANE 06/03/2025. Estimated gestational age by LMP 9 weeks 1 day, JANE 05/25/2025. 3 mm yolk sac is present. There is a debi sac subchorionic hemorrhage measuring 2.4 x 0.9 x 1.5 cm. US/Transvaginal w/Preg US IMPRESSION: A single live intrauterine fundal portion of the uterus with heart tones 161 beats per minute. There is a debi sac subchorionic hemorrhage measuring 2.4 x 0.9 x 1.5 cm. Estimated gestational age by ultrasound 7 weeks and 6 days, JANE 06/03/2025. Estimated gestational age by LMP 9 weeks 1 day, JANE 05/25/2025. Reading Location: [id number] CC: Dr. David Mckinney MD; Rizwan Cárdenas DO Sterile Tech: Signed Normal [facility] Urine Cultureon 10-14-2024 URC Below infection leve l. Mixed Gram Positive Organisms [place] Count 1000-10,000 MIXC Mixed contaminants. Submit a new specimen if indicated. Normal [facility] Comment on above: Performed By: #### L 100.0100, L500.4050, L700.8000 #### [facility] [address] [place], [address] [facility] 10-13-2024 [facility] Telephone (OBiRatesWM) SHILPA HOANG ([id number]) 1995 F Date Time Provider Department 10/13/24 SARAH HUBER OBGYWM During your visit today, we recorded the following information about you: Emily ScottMARYAM 10/13/2024 4:39 PM Signed Lmp: 08/18/24 and was seen at [facility] for cramping yesterday and was told she was . Patient dx w/ UTI and given amoxicillin and zofran [place] nausea. [place] [address] and ED doctor told her she was 10 to 12 weeks. Denies vaginal bleeding, no fever. Patient has new ob appointment 10/25/24. Patient asking if she needs seen sooner for ED f/u. Sarah Huber MD 10/13/2024 5:36 PM Signed No- 10/25 is fine. Margarita Hearn RN 10/14/2024 8:27 AM Signed Left message for patient to call office. CHANA Gonzalez Trisha, RN 10/14/2024 8:33 AM Signed Patient notified. Anca Broussard RN Allergies As of Date: 10/13/2024 Noted Allergy Reaction WALNUT 11/10/2023 10 - Anaphylaxis CORN 11/10/2023 5 - Intolerance SEASONAL ALLERGIES 11/10/2023 3 - Cough Date Reviewed: 09/16/2024 Reviewed by: Hortencia Gould APRN.NEON PUMPER - Fully Assessed Reason for Visit: Patient Update [1234] Cmt: ED follow up Prescriptions as of 10/14/2024 - albuterol HFA (PROVENTIL HFA, VENTOLIN HFA) 90 mcg/actuation inhaler INHALE 2 PUFFS BY MOUTH and into the lungs EVERY 4 HOURS NEEDED for cough - sertraline (ZOLOFT) 100 mg tablet Take 100 mg by mouth once daily. - acetaminophen (TYLENOL) 500 mg tablet - ferrous sulfate 325 mg (65 mg iron) tablet Take 1 tablet by mouth once daily. Problem List As Of Date 10/13/2024 Noted Resolved Supervision of high risk in third tri*11/13/2023 07/01/2024 History of IUFD [Z87.59] 11/13/2023 11/13/2023 Endometritis [N71.9] 11/13/2023 07/01/2024 History of gestational hypertension [Z87.59] 11/13/2023 History of IUFD [Z87.59] 11/13/2023 07/01/2024 History of drug abuse (HCC) [F19.11] 11/13/2023 Antepartum anemia complicating in thi*04/14/2024 07/01/2024 Polyhydramnios in third trimester [O40.3XX0] 05/14/2024 07/29/2024 Obesity complicating , third trimester*06/03/2024 07/01/2024 Benign gestational thrombocytopenia in third tr*06/03/2024 07/01/2024 Maternal iron deficiency anemia complicating pr*06/09/2024 Breech presentation with problem [O32*06/11/2024 07/01/2024 Positive GBS test [B95.1] 06/14/2024 07/01/2024 Encounter Status:Closed by ANCA BROUSSARD on 10/14/24 Normal [facility] Absolute lymphocyte countOrd ered By: Rizwan Cárdenas on 10-12-2024 Lymphocytes Auto (Unsp spec) [#/Vol] 2.83 10*3/uL 0.83-4.51 [facility] Absolute neutrophil countOrd ered By: Rizwan Cárdenas on 10-12-2024 Neutrophils (Bld) [#/Vol] 4.0 10*3/uL 2.0-7.7 [facility] Amorphous sediment detection in urine sediment by light microscopyOrdered By: Rizwan Cárdenas on 10-12-2024 Amorphous sediment LM Ql (Urine sed) 2+ [facility] Anion gap in Serum or Plasma Ordered By: Rizwan Cárdenas on 10-12-2024 Anion gap [Moles/Vol] 11 mmol/L 5-15 [facility] Automated lymphocyte count a s percentage of total leukocytesOrdered By: Rizwan Cárdenas on 10-12-2024 Lymphocytes/100 WBC Auto (Unsp spec) 35.3 % 19-41 [facility] [id number] 10-12-2024 ABO and Rh group Nom (Bld) Blood group A Rh(D) positive Normal [facility] Comment on above: Performed By: #### L 505.5000 #### [facility] [address] [place], [address] BUN/creatinine ratioOrdered By: Rizwan Cárdenas on 10-12-2024 Urea nitrogen/Creatinine [Mass ratio] 17.4 mg/mg 10- [facility] Basic Metabolic Profile (BMP )on 10-12-2024 BUN/CRE 17.4 RATIO Normal - [facility] Comment on above: Performed By: #### L 505.5000 #### [facility] [address] [place], [address] Calcium [Mass/Vol] 9.2 mg/dL Normal 7.6-11.0 [facility] Comment on above: Performed By: #### L 505.5000 #### [facility] [address] [place], [address] Chloride [Moles/Vol] 104 mmol/L Normal 98-108 [facility] Comment on above: Performed By: #### L 505.5000 #### [facility] [address] [place], [address] CO2 [Moles/Vol] 22.3 mmol/L Normal 21.0-32.0 [facility] Comment on above: Performed By: #### L 505.5000 #### [facility] [address] [place], [address] Creatinine [Mass/Vol] 0.87 mg/dL Normal 0.70-1.20 [facility] Comment on above: Performed By: #### L 505.5000 #### [facility] [address] [place], [address] ECRCL 97.15 ml/min Normal 50-250 [facility] Comment on above: Performed By: #### L 505.5000 #### [facility] [address] [place], [address] GAP 11 Normal 5-15 [facility] Comment on above: Performed By: #### L 505.5000 #### [facility] [address] [place], [address] GFR/1.73 sq M.predicted among non-blacks MDRD (S/P/Bld) [Vol rate/Area] 94 mL/min/{1.73_m2} Normal >60 [facility] Comment on above: Result Comment: mL/m in/1.73m2 CKD-EPI Creatinine Equation (2020) Performed By: #### L 505.5000 #### [facility] [address] [place], [address] Glucose [Mass/Vol] 100 mg/dL High 70-99 [facility] Comment on above: Performed By: #### L 505.5000 #### [facility] [address] [place], [address] Potassium [Moles/Vol] 4.0 mmol/L Normal 3.3-5.1 [facility] Comment on above: Performed By: #### L 505.5000 #### [facility] [address] [place], [address] Sodium [Moles/Vol] 137 mmol/L Normal 133-145 [facility] Comment on above: Performed By: #### L 505.5000 #### [facility] [address] [place], [address] Urea nitrogen [Mass/Vol] 15 mg/dL Normal 4-19 [facility] Comment on above: Performed By: #### L 505.5000 #### [facility] [address] [place], [address] Basophil percentageOrdered B y: Rizwan Cárdenas on 10-12-2024 Basophils/100 WBC (Bld) 0.5 % 0-1 [facility] Bilirubin Test strip Ql (U)O rdered By: Rizwan Cárdenas on 10-12-2024 Bilirubin Ql (U) Negative Negative [facility] Bilirubin directOrdered By: Rizwan Cárdenas on 10-12-2024 Bilirubin.direct [Mass/Vol] 0.11 mg/dL 0.00-0.30 [facility] Bilirubin, totalOrdered By: Rizwan Cárdenas on 10-12-2024 Bilirubin [Mass/Vol] 0.25 mg/dL 0.00-1.30 [facility] CBC W/Diff, Automatedon 09-22 Absolute Lymph 2.83 X10 3/uL Normal 0.83-4.51 [facility] Comment on above: Performed By: #### L 505.5000 #### [facility] [address] [place], [address] Absolute Neut 4.0 X10 3/uL Normal 2.0-7.7 [facility] Comment on above: Performed By: #### L 505.5000 #### [facility] [address] [place], [address] Basophils/100 WBC (Bld) 0.5 % Normal 0-1 [facility] Comment on above: Performed By: #### L 505.5000 #### [facility] [address] [place], [address] Eosinophils/100 WBC (Bld) 6.5 % High 0-5 [facility] Comment on above: Performed By: #### L 505.5000 #### [facility] [address] [place], [address] Erythrocyte distribution width (RBC) [Ratio] 14.3 % Normal 11.6-14.6 [facility] Comment on above: Performed By: #### L 505.5000 #### [facility] [address] [place], [address] Hematocrit (Bld) [Volume fraction] 37.6 % Normal 37-47 [facility] Comment on above: Performed By: #### L 505.5000 #### [facility] [address] [place], [address] Hemoglobin (Bld) [Mass/Vol] 12.2 g/dL Normal 12.0-15.0 [facility] Comment on above: Performed By: #### L 505.5000 #### [facility] [address] [place], [address] IG% 0.200 Normal 0.0-0.9 [facility] Comment on above: Result Comment: IG% - Immature Granulocytes (promyelocytes, myelocytes and metamyelocytes) > 1% indicates that a LEFT SHIFT is Present. Performed By: #### L 505.5000 #### [facility] [address] [place], [address] Lymphocytes/100 WBC (Bld) 35.3 % Normal 19-41 [facility] Comment on above: Performed By: #### L 505.5000 #### [facility] [address] [place], [address] MCH (RBC) [Entitic mass] 26.1 pg Low 27.0-32.0 [facility] Comment on above: Performed By: #### L 505.5000 #### [facility] [address] [place], [address] MCHC (RBC) [Mass/Vol] 32.4 g/dL Normal 32-36 [facility] Comment on above: Performed By: #### L 505.5000 #### [facility] [address] [place], [address] MCV (RBC) [Entitic vol] 80.5 fL Low 81-99 [facility] Comment on above: Performed By: #### L 505.5000 #### [facility] [address] [place], [address] Monocytes/100 WBC (Bld) 7.4 % Normal 0-10 [facility] Comment on above: Performed By: #### L 505.5000 #### [facility] [address] [place], [address] Neutrophils/100 WBC (Bld) 50.1 % Normal 47-70 [facility] Comment on above: Performed By: #### L 505.5000 #### [facility] [address] [place], [address] Nucleated RBC (Bld) [#/Vol] 0 10*3/uL Normal 0-5 [facility] Comment on above: Performed By: #### L 505.5000 #### [facility] [address] [place], [address] Platelet mean volume (Bld) [Entitic vol] 11.3 fL Normal 6.2-12.0 [facility] Comment on above: Performed By: #### L 505.5000 #### [facility] [address] [place], [address] Platelets (Bld) [#/Vol] 213 10*3/uL Normal 150-450 [facility] Comment on above: Performed By: #### L 505.5000 #### [facility] [address] [place], [address] RBC (Bld) [#/Vol] 4.67 10*6/uL Normal 4.2-5.4 [facility] Comment on above: Performed By: #### L 505.5000 #### [facility] [address] [place], [address] RDW SD 41.6 fl Normal 35.1-43.9 [facility] Comment on above: Performed By: #### L 505.5000 #### [facility] [address] [place], [address] WBC (Bld) [#/Vol] 8.0 10*3/uL Normal 4.4-11.0 [facility] Comment on above: Performed By: #### L 505.5000 #### [facility] [address] [place], [address] Carbon dioxide, total [Moles /volume] in Central venous bloodOrdered By: Rizwan Cárdenas on 10-12-2024 CO2 [Moles/Vol] 22.3 mmol/L 21.0-32.0 [facility] Chloride assayOrdered By: Chelsi Cárdenas on 10-12-2024 Chloride [Moles/Vol] 104 mmol/L 98-108 [facility] Emergency Department Summary on 10-12-2024 Emergency Department Summary [facility] Medical Records Department [address] [place] [address] Emergency Department Summary 10/12/24 MR#: [id number] Acct: [id number] Name: SHILPA HOANG Rep #: [id number] : 1995 28 From: Rizwan Cárdenas DO PCP: Dr. David Mckinney MD Status:DEP ER Location: ED HPI History of Present Illness Chief Complaint: Nausea/Vomiting Informant: patient Narrative Narrative: Patient is a with 1 spontaneous miscarriage who reports that she is approximately 10 weeks . She states that her most recent was delivered at 37 weeks secondary to hypertension and has been doing well at home and is approximately 4 months old. She states that based on her last menstrual cycle she believes she is approximately 10 to 12 weeks . She reports that over the last 2 to 3 days she has been having lower abdominal cramping slightly greater on the left. She reports that she has been nauseated as well without bouts of vomiting. She denies any fevers or chills vaginal bleeding discharge or dysuria. She states that today the cramping has been slightly more intense than it has been over the past few days and secondary to this comes in for evaluation. [facility] Medical History (Updated 10/12/24 @ 02:[address] Rizwan Cárdenas DO) (spontaneous vaginal delivery) Depression Family history of hearing loss at age younger than 7 years Gestational HTN Stillborn, normal History of placental abruption Trauma depression Anxiety Cervical myofascial strain Home Medications ???Medication ???Instructions ???Recorded ???Last Taken ???Type ekvftxmj-xau-Cw-FA 1 mg 1 tab PO DAILY 09/13/21 02/17/22 09:00 History tablet amoxicillin 500 mg capsule 500 mg PO TID 7 days #21 caps 09/22 08/17 Unknown Rx ondansetron 4 mg disintegrating 4 mg PO TID PRN nausea and 5 Unknown Rx tablet vomiting #21 tabs Allergy/AdvReac Type Severity Reaction Status Date / Time walnut (walnuts) Allergy Severe Swelling Verified 10/11/24 23:39 corn AdvReac Other Verified 10/11/24 23:39 Social History number of children: 2 Smoking Status: Former smoker alcohol intake: former 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 ROS ROS ED Constitutional Constitutional ED: Denies chills or fever(s) Eyes Eyes: Denies change in vision ENT ENT ED: Denies sore throat Cardiovascular Cardiovascular: Denies chest pain Respiratory/Chest Respiratory/Chest: Denies cough or dyspnea Gastrointestinal Gastrointestinal: Reports abdominal pain and nausea; Denies diarrhea or vomiting Genitourinary Genitourinary ED: Denies dysuria or hematuria Musculoskeletal Musculoskeletal: Denies back pain Integumentary Denies rash Neurologic Neurologic: Denies headache(s) Hematologic/Lymphatic Hematologic/Lymphatic: Denies easy bleeding or easy bruising EXAM Physical Exam Const Vital Signs: 10/11/24 23:39 10/12/24 01:32 Temperature 97.8 F Temperature Source Oral Pulse Rate 80 83 Respiratory Rate 16 12 Blood Pressure 141/92 H 136/89 H Blood Pressure Mean 108 104 Pulse Ox 99 97 Oxygen Delivery Method Room Air Room Air Positive well nourished and well developed General Appearance ED: well developed; Negative for pallor HEENT Reports dry mucous membranes HEENT Narrative: Mucous membranes are mildly dry and tacky No tongue or lip swelling no oral lesions no airway edema or compromise No secondary findings in the posterior pharynx to suggest infection Mouth ED: Yes dry mucous membranes Mouth: dry mucous membranes Eyes PERRL and EOMs intact bilaterally General Eye ED: Negative for scleral icterus Neck supple Neck Narrative: No nuchal rigidity or meningeal signs noted Resp normal respiratory effort and clear to auscultation bilaterally Cardio regular rate and regular rhythm Rate: other Other Details: Regular rate and rhythm without murmurs rubs or gallops Radial and carotid pulses are equal and symmetric GI non-distended and no masses GI Narrative: Abdomen is soft and nondistended with hyperactive bowel sounds There is mild pain with palpation in the right lower and suprapubic region. No voluntary guarding or rigidity. No pulsatile mass. The fundus is not palpated which is consistent with reported gestational age. Of note the patient reported her cramping has been in the left lower quadrant but there is no pain with palpation at this site. Auscultation: hyperactive bowel sounds Palpation: soft Back/Spine no CVA tenderness Extremity normal to inspection Extremity Narrative: No asymmetric edema no pitting edema negative Homans' sign bilaterally Neuro oriented x3, CN's II-XI (more content not included)... Normal [facility] Eosinophil percentageOrdered By: Rizwan Cárdenas on 10-12-2024 Eosinophils/100 WBC (Bld) 6.5 % High 0-5 [facility] Epithelial cells.squamous LM Ql (Urine sed)Ordered By: Rizwan Cárdenas on 10-12-2024 Epithelial cells.squamous LM.HPF (Urine sed) [#/Area] 25 /[HPF] 5-10 [facility] Erythrocyte distribution wid th (RBC) [Ratio]Ordered By: Rizwan Cárdenas on 10-12-2024 Erythrocyte distribution width (RBC) [Entitic vol] 41.6 fL 35.1-43.9 [facility] Erythrocyte distribution wid th ratioOrdered By: Rizwan Cárdenas on 10-12-2024 Erythrocyte distribution width (RBC) [Ratio] 14.3 % 11.6-14.6 [facility] Erythrocyte distribution wid th standard deviationOrdered By: Rizwan Cárdenas on 10-12-2024 Erythrocyte distribution width (RBC) [Ratio] 41.6 fl 35.1-43.9 [facility] Estimation of creatinine morgan aranceOrdered By: Rizwan Cárdenas on 10-12-2024 Estimated Creatinine Clearance Calc 97.15 ml/min 50-250 [facility] GFR/1.73 sq M.predicted ankita g non-blacks MDRD (S/P/Bld) [Vol rate/Area]Ordered By: Rizwan Cárdenas on 10-12-2024 Estimated GFR (MDRD) Non-Af Amer 94 >60 [facility] Comment on above: mL/min/1.73m2 CKD-EP I Creatinine Equation (2020) Glomerular filtration rate ( GFR) estimation/1.73 sq m using serum, plasma, or whole bOrdered By: Rizwan Cárdenas on 10-12-2024 GFR/1.73 sq M.predicted among non-blacks MDRD (S/P/Bld) [Vol rate/Area] 94 mL/min/{1.73_m2} >60 [facility] Comment on above: mL/min/1.73m2 CKD-EP I Creatinine Equation (2020) Glucose Ql (U)Ordered By: Chelsi Cárdenas on 10-12-2024 Urine Glucose (UA) Normal mg/dl Normal [facility] HCG ( test) QlOrder ed By: Rizwan Cárdeans on 10-12-2024 Human Chorionic Gonadotropin, Quant 27348 mIU/mL High <9 [facility] Comment on above: Gestational Age0.2-1 Week: 5-50 mIU/mL1-2 Weeks: 50-500 mIU/mL2-3 Weeks: 100-5000 mIU/mL3-4 Weeks: 500-10,000 mIU/mL4-5 Weeks:1000-50,000 mIU/mL5-6 Weeks: 10,000-100,000 mIU/mL6-8 Weeks: 15,000-200,000 mIU/mL2-3 Months:10,000-100,000 mIU/mL Hematocrit Auto (Bld) [Volum e fraction]Ordered By: Rizwan Cárdenas on 10-12-2024 Hematocrit (Bld) [Volume fraction] 37.6 % 37-47 [facility] Hemoglobin measurementOrdere d By: Rizwan Cárdenas on 10-12-2024 Hemoglobin (Bld) [Mass/Vol] 12.2 g/dL 12.0-15.0 [facility] Immature granulocytes/100 WB C Auto (Bld)Ordered By: Rizwan Cárdenas on 10-12-2024 Immature granulocytes/100 WBC (Bld) 0.200 % 0.0-0.9 [facility] Comment on above: IG% - Immature Granu locytes (promyelocytes, myelocytes and metamyelocytes) > 1% indicates that a LEFT SHIFT is Present. Ketones Test strip Ql (U)Ord ered By: Rizwan Cárdenas on 10-12-2024 Ketones Ql (U) Negative Negative [facility] - Chemistry and C hemistry - challengeOrdered By: Rizwan Cárdenas on 10-12-2024 AST [Catalytic activity/Vol] 14 U/L <32 [facility] Lipaseon 10-12-2024 Lipase [Catalytic activity/Vol] 26 U/L Normal 13-75 [facility] Comment on above: Result Comment: Raj redman note: LIPASE revised reference range effective 22. New Lipase methodology. Expected to produce lower values than the previous assay method. NEW Reference Range: 13 - 75 U/L Performed By: #### L 505.5000 #### [facility] [address] [facility] [address] Lipase measurementOrdered By : Rizwan Cárdenas on 10-12-2024 Lipase [Catalytic activity/Vol] 26 U/L 13-75 [facility] Comment on above: Please note:LIPASE r evised reference range effective 22. New Lipase methodology. Expected to produce lower values than the previous assay method. NEW Reference Range: 13 - 75 U/L Liver Profileon 10-12-2024 Albumin [Mass/Vol] 4.3 g/dL Normal 3.5-5.0 [facility] Comment on above: Performed By: #### L 505.5000 #### [facility] [address] [facility] [address] ALK PHOS 92 U/L Normal 35-104 [facility] Comment on above: Performed By: #### L 505.5000 #### [facility] [address] [place], [address] ALT [Catalytic activity/Vol] 14 U/L Normal <=34 [facility] Comment on above: Performed By: #### L 505.5000 #### [facility] [address] [place], [address] AST [Catalytic activity/Vol] 14 U/L Normal <=31 [facility] Comment on above: Performed By: #### L 505.5000 #### [facility] [address] [place], [address] Bilirubin [Mass/Vol] 0.25 mg/dL Normal 0.00-1.30 [facility] Comment on above: Performed By: #### L 505.5000 #### [facility] [address] [place], [address] Bilirubin.direct [Mass/Vol] 0.11 mg/dL Normal 0.00-0.30 [facility] Comment on above: Performed By: #### L 505.5000 #### [facility] [address] [place], [address] Globulin (S) [Mass/Vol] 3.1 g/dL Normal 2.2-4.2 [facility] Comment on above: Performed By: #### L 505.5000 #### [facility] [address] [place], [address] T PROT 7.4 g/dL Normal 5.9-8.4 [facility] Comment on above: Performed By: #### L 505.5000 #### [facility] [address] [place], [address] Lymphocytes Auto (Unsp spec) [#/Vol]Ordered By: Rizwan Cárdenas on 10-12-2024 Lymphocytes (Bld) [#/Vol] 2.83 10*3/uL 0.83-4.51 [facility] Lymphocytes/100 WBC Auto (Un sp spec)Ordered By: Rizwan Cárdenas on 10-12-2024 Lymphocytes/100 WBC (Bld) 35.3 % 19-41 [facility] MCV (mean corpuscular volume ) determinationOrdered By: Rizwan Cárdenas on 10-12-2024 MCV (RBC) [Entitic vol] 80.5 fL Low 81-99 [facility] Mean corpuscular hemoglobin (MCH) determinationOrdered By: Rizwan Cárdenas on 10-12-2024 MCH (RBC) [Entitic mass] 26.1 pg Low 27.0-32.0 [facility] Mean corpuscular hemoglobin concentration (MCHC) determinationOrdered By: Rizwan Cárdenas on 10-12-2024 MCHC (RBC) [Mass/Vol] 32.4 g/dL 32-36 [facility] Mean platelet volume determi nationOrdered By: Rizwan Cárdenas on 10-12-2024 Platelet mean volume (Bld) [Entitic vol] 11.3 fL 6.2-12.0 [facility] Microscopic analysis of urin e for red blood cells (RBC)Ordered By: Rizwan Cárdenas on 10-12-2024 Microscopic analysis of urine for red blood cells (RBC) 0 SEEN /hpf 0-5 [facility] Urine RBC 0 SEEN /hpf 0-5 [facility] Monocyte percentageOrdered B y: Rizwan Cárdenas on 10-12-2024 Monocytes/100 WBC (Bld) 7.4 % 0-10 [facility] Mucus LM Ql (Urine sed)Order ed By: Rizwan Cárdenas on 10-12-2024 Mucus Ql (Urine sed) 0 SEEN /hpf [facility] Neutrophil percentageOrdered By: Rizwan Cárdenas on 10-12-2024 Neutrophils/100 WBC (Bld) 50.1 % 47-70 [facility] Nitrite Test strip Ql (U)Ord ered By: Rizwan Cárdenas on 10-12-2024 Nitrite Ql (U) Negative Negative [facility] Nucleated red blood cell per centageOrdered By: Rizwan Cárdenas on 10-12-2024 Nucleated RBC/100 WBC (Bld) [Ratio] 0 % 0-5 [facility] Platelet countOrdered By: Chelsi Cárdenas on 10-12-2024 Platelets (Bld) [#/Vol] 213 10*3/uL 150-450 [facility] Potassium (Unsp spec) [Mass/ Vol]Ordered By: Rizwan Cárdenas on 10-12-2024 Potassium [Moles/Vol] 4.0 mmol/L 3.3-5.1 [facility] Potassium measurement (mass/ volume)Ordered By: Rizwan Cárdenas on 10-12-2024 Potassium (Unsp spec) [Mass/Vol] 4.0 mmol/L 3.3-5.1 [facility] Protein Test strip Ql (U)Ord ered By: Rizwan Cárdenas on 10-12-2024 Protein Ql (U) 15 mg/dl High Negative [facility] RBC Auto (Bld) [#/Vol]Ordere d By: Rizwan Cárdenas on 10-12-2024 RBC (Bld) [#/Vol] 4.67 10*6/uL 4.2-5.4 [facility] Serum creatinine measurement (mass/volume)Ordered By: Rizwan Cárdenas on 10-12-2024 Creatinine [Mass/Vol] 0.87 mg/dL 0.70-1.20 [facility] Serum globulin measurementOr dered By: Rizwan Cárdenas on 10-12-2024 Globulin (S) [Mass/Vol] 3.1 g/dL 2.2-4.2 [facility] Serum glucose measurement (m ass/volume)Ordered By: Rizwan Cárdenas on 10-12-2024 Glucose [Mass/Vol] 100 mg/dL High 70-99 [facility] Serum human chorionic gonado tropin detection for pregnancyOrdered By: Rizwan Cárdenas on 10-12-2024 HCG ( test) Ql [address] mIU/mL High <9 [facility] Comment on above: Gestational Age0.2-1 Week: 5-50 mIU/mL1-2 Weeks: 50-500 mIU/mL2-3 Weeks: 100-5000 mIU/mL3-4 Weeks: 500-10,000 mIU/mL4-5 Weeks:1000-50,000 mIU/mL5-6 Weeks: 10,000-100,000 mIU/mL6-8 Weeks: 15,000-200,000 mIU/mL2-3 Months:10,000-100,000 mIU/mL Serum or plasma alanine rivero otransferase (ALT) measurementOrdered By: Rizwan Cárdenas on 10-12-2024 ALT [Catalytic activity/Vol] 14 U/L <35 [facility] Serum or plasma albumin roopa urement (mass/volume)Ordered By: Rizwan Cárdenas on 10-12-2024 Albumin [Mass/Vol] 4.3 g/dL 3.5-5.0 [facility] Serum or plasma alkaline robert sphatase measurementOrdered By: Rizwan Cárdenas on 10-12-2024 ALP [Catalytic activity/Vol] 92 U/L 35-104 [facility] Serum or plasma calcium roopa urement (mass/volume)Ordered By: Rizwan Cárdenas on 10-12-2024 Calcium [Mass/Vol] 9.2 mg/dL 7.6-11.0 [facility] Serum or plasma urea nitroge n measurement (mass/volume)Ordered By: Rizwan Cárdenas on 10-12-2024 Urea nitrogen [Mass/Vol] 15 mg/dL 4-19 [facility] Sodium levelOrdered By: Nav Cárdenas on 10-12-2024 Sodium [Moles/Vol] 137 mmol/L 133-145 [facility] Squamous epithelial cells de tection in urine sediment by light microscopyOrdered By: Rizwan Cárdenas on 10-12-2024 Epithelial cells.squamous LM Ql (Urine sed) 25-50 SEEN /hpf 5-10 [facility] Total proteinOrdered By: Giancarlo Cárdenas on 10-12-2024 Protein [Mass/Vol] 7.4 g/dL 5.9-8.4 [facility] Urinalysis, Completeon 10-12 AMORPHOUS 2+ Normal [facility] Comment on above: Order Comment: CLEAN CATCH Performed By: #### L 505.5000 #### [facility] [address] [place], [address] BACTERIA 2+ /hpf Normal None Seen [facility] Comment on above: Order Comment: CLEAN CATCH Performed By: #### L 505.5000 #### [facility] [address] [place], [address] EPI,SQUAMOUS 25-50 SEEN Normal 5-10 [facility] Comment on above: Order Comment: CLEAN CATCH Performed By: #### L 505.5000 #### [facility] [address] [place], [address] WBC >100 SEEN Normal 0-5 [facility] Comment on above: Order Comment: CLEAN CATCH Performed By: #### L 505.5000 #### [facility] [address] [place], [address] BILIRUBIN URINE Negative Normal Negative [facility] Comment on above: Order Comment: CLEAN CATCH Performed By: #### L 505.5000 #### [facility] [address] [place], [address] Clarity (U) Sl. Cloudy Normal Clear [facility] Comment on above: Order Comment: CLEAN CATCH Performed By: #### L 505.5000 #### [facility] [address] [place] [id number] Color (U) Yellow Normal Yellow [facility] Comment on above: Order Comment: CLEAN CATCH Performed By: #### L 505.5000 #### [facility] [address] [place] [address] GLUCOSE, UR Normal Normal Normal [facility] Comment on above: Order Comment: CLEAN CATCH Performed By: #### L 505.5000 #### [facility] [address] [place] [address] KETONE UR Negative Normal Negative [facility] Comment on above: Order Comment: CLEAN CATCH Performed By: #### L 505.5000 #### [facility] [address] [place], [place], [facility] LEUK ESTERASE 500 /ul Abnormal Negative [facility] Comment on above: Order Comment: CLEAN CATCH Performed By: #### L 505.5000 #### [facility] [address] [place] [address] Mucus Ql (Urine sed) 0 SEEN Normal [facility] Comment on above: Order Comment: CLEAN CATCH Performed By: #### L 505.5000 #### [facility] [address] [place], [address] Nitrite Ql (U) Negative Normal Negative [facility] Comment on above: Order Comment: CLEAN CATCH Performed By: #### L 505.5000 #### [facility] [address] [place] [phone] OCCULT BLOOD-UR Negative Normal Negative [facility] Comment on above: Order Comment: CLEAN CATCH Performed By: #### L 505.5000 #### [facility] [address] [place], [address] pH UR 6.5 Normal 5.0 - 8.0 [facility] Comment on above: Order Comment: CLEAN CATCH Performed By: #### L 505.5000 #### [facility] [address] [place], [address] PROT DIPSTX 15 mg/dl Abnormal Negative [facility] Comment on above: Order Comment: CLEAN CATCH Performed By: #### L 505.5000 #### [facility] [address] [place], [address] RBC 0 SEEN Normal 0-5 [facility] Comment on above: Order Comment: CLEAN CATCH Performed By: #### L 505.5000 #### [facility] [address] [place], [address] SP.GR. DIPSTX 1.015 Normal 1.002-1.030 [facility] Comment on above: Order Comment: CLEAN CATCH Performed By: #### L 505.5000 #### [facility] [address] [place], [address] UROBILI Normal Normal Normal [facility] Comment on above: Order Comment: CLEAN CATCH Performed By: #### L 505.5000 #### [facility] [address] [place], [address] Urine blood detectionOrdered By: Rizwan Cárdenas on 10-12-2024 Urine Occult Blood Negative Negative [facility] Urine clarityOrdered By: Giancarlo Cárdenas on 10-12-2024 Clarity (U) Sl. Cloudy Clear [facility] Urine color determinationOrd ered By: Rizwan Cárdenas on 10-12-2024 Color (U) Yellow Yellow [facility] Urine cultureOrdered By: Giancarlo Cárdenas on 10-12-2024 Bacteria identified Cx Nom (U) Positive Abnormal [facility] Urine glucose detectionOrder ed By: Rizwan Cárdenas on 10-12-2024 Glucose Ql (U) Normal mg/dl Normal [facility] Urine leukocyte esterase det ection by dipstickOrdered By: Rizwan Cárdenas on 10-12-2024 Leukocyte esterase Test strip Ql (U) 500 /ul High Negative [facility] Urine pHOrdered By: Rizwan rivera on 10-12-2024 pH (U) 6.5 [pH] 5.0 - 8.0 [facility] Urine sediment bacteria coun t by microscopy (number/high power field)Ordered By: Rizwan Cárdenas on 10-12-2024 Bacteria LM.HPF (Urine sed) [#/Area] 2 /[HPF] None Seen [facility] Urine specific gravity measu rementOrdered By: Rizwan Cárdenas on 10-12-2024 Specific gravity (U) [Rel density] 1.015 1.002-1.030 [facility] Urine urobilinogen measureme ntOrdered By: Rizwan Cárdenas on 10-12-2024 Urobilinogen Ql (U) Normal mg/dl Normal [facility] Urobilinogen Ql (U)Ordered B y: Rizwan Cárdenas on 10-12-2024 Urine Urobilinogen Normal mg/dl Normal [facility] White blood cell (WBC) count Ordered By: Rizwan Cárdenas on 10-12-2024 WBC (Bld) [#/Vol] 8.0 10*3/uL 4.4-11.0 [facility] White blood cell countOrdere d By: Rizwan Cárdenas on 10-12-2024 Urine WBC >100 SEEN /hpf 0-5 [facility] White blood cell count >100 SEEN /hpf 0-5 [facility] hCG Titer Quant., Serumon HCG QUANT. 10629 mIU/mL High <9 non-preg [facility] Comment on above: Result Comment: Gest ational Age 0.2-1 Week: 5-50 mIU/mL 1-2 Weeks: 50-500 mIU/mL 2-3 Weeks: 100-5000 mIU/mL 3-4 Weeks: 500-10,000 mIU/mL 4-5 Weeks:1000-50,000 mIU/mL 5-6 Weeks: 10,000-100,000 mIU/mL 6-8 Weeks: 15,000-200,000 mIU/mL 2-3 Months:10,000-100,000 mIU/mL Performed By: #### L 505.5000 #### [facility] [address] [place], [address] [facility]24 [facility] Telephone ([id number]) SHILPA HOANG ([id number]) 1995 F Date Time Provider Department 10/08/24 MARGARITA HERNANDEZ [id number] During your visit today, we recorded the following information about you: Margarita Hernandez RN 10/08/2024 1:36 PM Signed ----- Message from Jennifer Carrizales sent at 10/08/2024 1:32 PM EDT ----- Regarding: New OB - Answered yes to condition that could affect Patient has been identified by name and Date of : Yes Patient: Shilpa Hoang Date of : 1995 Provider for this encounter : LUNA [facility] Reason for call: 1st OB visit Was an appointment scheduled: No Reason for requesting visit (RFV/signs and symptoms/diagnosis) : New , patient answered yes to having condition that could affect (hypertension) Person calling: self Return call to: self Call patient at: [phone] (cell), it is OK to leave message Payor: [facility] / Plan: [facility] MEDICAID / Product Type: Medicaid / Margarita Calzada RN 10/08/2024 1:41 PM Signed Call placed to patient to triage for new OB appt. Name and identified. LMP? 08/19/2024 Gestational age 7w1d When did you have a + test? A week ago PNV? Not yet Any cats in the home? no If so, is patient aware of litter box precautions? Pelvic pain? no Miscarriage and ectopic precautions given Vaginal bleeding? no Patient given bleeding precautions. Nausea with or without vomiting? mild If patient is vomiting, how often and is she keeping down fluids? No vomiting at this time Patient given precautions for vomiting Any medical history that can effect the ? GHTN that lead to CHTN. No meds at this time. Office/provider patient wishes to establish care to? [facility] Patient aware to sign up for My Chart if she does not already have it, so she can receive the transitional care manager messages. Will forward this encounter to the schedulers in this office. Carla Mckinney RN 10/13/2024 10:27 AM Signed Patient has appt - closing encounter. Carla Mckinney RN Allergies As of Date: 10/08/2024 Noted Allergy Reaction WALNUT 11/10/2023 10 - Anaphylaxis CORN 11/10/2023 5 - Intolerance SEASONAL ALLERGIES 11/10/2023 3 - Cough Date Reviewed: 09/16/2024 Reviewed by: Hortencia Gould, ADONIS.NEON PUMPER - Fully Assessed Reason for Visit: Sustainability Director - Other [3602] Cmt: Initial OB RN CC pool Prescriptions as of 10/13/2024 - albuterol HFA (PROVENTIL HFA, VENTOLIN HFA) 90 mcg/actuation inhaler INHALE 2 PUFFS BY MOUTH and into the lungs EVERY 4 HOURS NEEDED for cough - sertraline (ZOLOFT) 100 mg tablet Take 100 mg by mouth once daily. - acetaminophen (TYLENOL) 500 mg tablet - ferrous sulfate 325 mg (65 mg iron) tablet Take 1 tablet by mouth once daily. Problem List As Of Date 10/08/2024 Noted Resolved Supervision of high risk in third tri*11/13/2023 07/01/2024 History of IUFD [Z87.59] 11/13/2023 11/13/2023 Endometritis [N71.9] 11/13/2023 07/01/2024 History of gestational hypertension [Z87.59] 11/13/2023 History of IUFD [Z87.59] 11/13/2023 07/01/2024 History of drug abuse (HCC) [F19.11] 11/13/2023 Antepartum anemia complicating in thi*04/14/2024 07/01/2024 Polyhydramnios in third trimester [O40.3XX0] 05/14/2024 07/29/2024 Obesity complicating , third trimester*06/03/2024 07/01/2024 Benign gestational thrombocytopenia in third tr*06/03/2024 07/01/2024 Maternal iron deficiency anemia complicating pr*06/09/2024 Breech presentation with problem [O32*06/11/2024 07/01/2024 Positive GBS test [B95.1] 06/14/2024 07/01/2024 Encounter Status:Closed by [facility] [place] on 10/13/24 Normal [facility] Emergency Department Summary on 10-02-2024 Emergency Department Summary [facility] Medical Records Department [address] [place] [address] Emergency Department Summary 10/02/24 MR#: [id number] Acct: [id number] Name: SHILPA HOANG Rep #: [id number] : 1995 28 From: Kuldeep Vanegas DO PCP: Dr. David Mckinney MD Status:DEP ER Location: ED [facility] History of Present Illness Chief Complaint: Dental PFSH [facility] Medical History (Updated 10/02/24 @ 23:[address] Kuldeep Vanegas DO) (spontaneous vaginal delivery) Depression Family history of hearing loss at age younger than 7 years Gestational HTN Stillborn, normal History of placental abruption Trauma depression Anxiety Cervical myofascial strain Home Medications ???Medication ???Instructions ???Recorded ???Last Taken ???Type ladptrfa-pym-Ub-FA 1 mg 1 tab PO DAILY 09/13/21 02/17/22 09:00 History tablet ferrous sulfate 325 mg (65 mg 325 mg PO DAILY 02/17/22 02/14/22 21:00 History iron) tablet (Iron (ferrous sulfate)) sertraline 100 mg tablet 100 mg PO Q24H 08/10/23 05/19/24 H istory amoxicillin 875 mg-potassium 1 tab PO BID 7 days #14 tabs 10/02 Unknown Rx clavulanate 125 mg tablet Allergy/AdvReac Type Severity Reaction Status Date / Time walnut (walnuts) Allergy Severe Swelling Verified 10/02/24 22:37 corn AdvReac Other Verified 10/02/24 22:37 Social History number of children: 2 Smoking Status: Former smoker alcohol intake: former 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 Notes 5 days of dental pain that slightly improved afew days ago then today she noted some bleeding. Notes bleeding is improved since onset. Notes she has not seen dentistry. Notes she is early . No abd pain, vaginal bleeding, passage of tissue etc. REVIEW OF SYSTEMS: Pertinent positives: Dental pain, bleeding Pertinent negatives: Abdominal pain, vaginal discharge PHYSICAL EXAM: Nursing triage notes reviewed, Vital signs reviewed Constitutional: please see mdm HENT: MMM, bilateral TMs pearly rocha, no hyperemia or erythema. Poor dentition. Dental caries. No palpable abscess noted. No signs of ANUG. No active bleeding noted there does appear to be a clot along the right lower molar. No pooling secretions in the posterior oropharynx. No pharyngeal erythema or edema. Uvula midline. No submandibular edema Neck: No stridor, no JVD, full neck ROM, positive lymphadenopathy right anterior cervical chain Lungs: Clear to auscultation, No wheezing or rales. No increased work of breathing, no conversational dyspnea, no accessory muscle use, no nasal flaring. No respiratory distress noted Heart: Regular rate and rhythm, No murmurs, No rubs and No gallops, 2+ distal pulses (radial, femoral, posterior tibial) in all extremities. MEDICAL DECISION MAKING: Chief Complaint: please see HPI External records reviewed: Reviewed prior ED evaluation Factors affecting care: First trimester Social determinants of health: none History obtained from others: Significant other Consults: none MDM Narrative: The patient was initially hemodynamically stable, afebrile and nontoxic-appearing. Exam without evidence of dental abscess, ANUG, ongoing bleeding. Exam most consistent with dental caries. Gave topical let here to further achieve hemostasis. Gave Tylenol. Gave prophylactic antibiotics. Instructed the patient not to take NSAIDs given early status. She had no related symptoms at this time. No indication for further testing in terms of labs. Gave dental resources The patient and/or family, caregivers express understanding. The patient and/or family, caregivers agrees with the plan. Shared decision making: I will have a discussion with the patient and or visitors regarding risk/benefits of further testing or admission. They will be made aware of of the risk/benefits inherent in this decision they will be given the opportunity to voice understanding. Total critical care time today provided was at least 0 minutes. This excludes separately billable procedures. Critical care time (if documented) is secondary to the patient having high probability of clinically significant/life t (more content not included)... 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 Shilpa presents today for IUD insertion for contraception. Patient's last menstrual period was 08/19/2024. States her menses should have started a couple of days ago. She had unprotected intercourse a week ago. Does not want IUD inserted if IUD would possible disrupt a . Thought about cancelling this appointment but decided to keep it to discuss options. .ASSESSMENT/PLAN: 1. Encounter for IUD insertion - ICD9: V25.11, ICD10: Z30.430 - IUD not inserted today. She will call to reschedule when she starts her menses and will not have intercourse until that appointment. - UA DIP,URINE HCG (POC) - negative Follow-up at IUD insertion. All questions answered to her satisfaction. Hortencia Gould APRN.KAITLYNN I spent a total of 15 minutes on the date of the service which included preparing to see the patient, [id number] patient care, completing clinical documentation, obtaining and/or reviewing separately obtained history, performing a medically appropriate examination, counseling and educating the patient/family/caregive r, and ordering medications, tests, or procedures. Babita Blankenship LPN 09/16/2024 1:33 PM Signed POST IUD INSTRUCTIONS You may have irregular bleeding during the first 3 months of use. You may have mild-severe cramping for the next 48 hours. You may use over the counter medication (Motrin, Tylenol) as needed. Your IUD must be removed or replaced based on the following table: IUD Type Removed or replaced within: Hilda 3 years Kyleena 5 years Mirena 8 years Liletta 8 years Paragard 10 years Call the office for signs/symptoms of infection such as severe cramping, fever, or unusual bleeding. Check for string placement as instructed by your doctor. If you have any additional questions, please contact the office. Referring Provider: SHARDA VALERO [[id number]] Allergies As of Date: 09/16/2024 Noted Allergy Reaction WALNUT 11/10/2023 10 - Anaphylaxis CORN 11/10/2023 5 - Intolerance SEASONAL ALLERGIES 11/10/2023 3 - Cough Date Reviewed: 09/16/2024 Reviewed by: Hortencia Gould APRN.CNP - Fully Assessed Reason for Visit: Insertion Of IUD [291] Primary Visit Diagnosis:Encounter for IUD insertion [Z30.430] Order(s):UA DIP,URINE HCG (POC) [0829000] Order #: [id number] Prescriptions as of 09/16/2024 - albuterol HFA (PROVENTIL HFA, VENTOLIN HFA) 90 mcg/actuation inhaler INHALE 2 PUFFS BY MOUTH and into the lungs EVERY 4 HOURS NEEDED for cough - sertraline (ZOLOFT) 100 mg tablet Take 100 mg by mouth once daily. - acetaminophen (TYLENOL) 500 mg tablet - ferrous sulfate 325 mg (65 mg iron) tablet Take 1 tablet by mouth once daily. Problem List As Of Date 09/16/2024 Noted Resolved Supervision of high risk in third tri*11/13/2023 07/01/2024 History of IUFD [Z87.59] 11/13/2023 11/13/2023 Endometritis [N71.9] 11/13/2023 07/01/2024 History of gestational hypertension [Z87.59] 11/13/2023 History of IUFD [Z87.59] 11/13/2023 07/01/2024 History of drug abuse (HCC) [F19.11] 11/13/2023 Antepartum anemia complicating in thi*04/14/2024 07/01/2024 Polyhydramnios in third trimester [O40.3XX0] 05/14/2024 07/29/2024 Obesity complicating , third trimester*06/03/2024 07/01/2024 Benign gestational thrombocytopenia in third tr*06/03/2024 07/01/2024 Maternal iron deficiency anemia complicating pr*06/09/2024 Breech presentation with problem [O32*06/11/2024 07/01/2024 Positive GBS test [B95.1] 06/14/2024 07/01/2024 Other instructions from your clinician: POST IUD INSTRUCTIONS You may have irregular bleeding during the first 3 months of use. You may have mild-severe cramping for the next 48 hours. You may use over the counter medication (Motrin, Tylenol) as needed. Your IUD must be removed or replaced based on the following table: IUD Type Removed or replaced within: Hilda 3 years Kyleena 5 years Mirena 8 years Liletta 8 years Paragard 10 years Call the office for signs/symptoms of infection such as severe cramping, fever, or unusual bleeding. Check for string placement as instructed by your doctor. If you have any additional questions, please contact the office. Encounter Status:Closed by HORTENCIA GOULD on 09/16/24 Normal [facility] UA DIP,URINE HCG (POC)on Beta HCG ( test) Ql (U) Negative Negative [facility] Comment on above: Location:[facility], [address] [facility], [place] [address] Human Resource Internship (POCT) Internal QC OK [facility] Location:[facility], [facility] [address] POINT OF CARE [facility] CNCOon 08-12-2024 CNCO Letter Text Normal [facility] PAP TESTon 07-29-2024 ADEQUACY Normal [facility] Comment on above: Order Comment: Speci men Type: BLOOD SPECIMEN Ordering Facility: [facility] Address: [address] [place] [address] Result Comment: Sati sfactory for interpretation. Obscuring inflammation Performed By: #### 5 8410-2 #### [facility] CLIA [id number] [address] [place] [address] [place] CASE REPORT Normal [facility] Comment on above: Order Comment: Gingeri men Type: BLOOD SPECIMEN Ordering Facility: [facility] Address: [address] [place] [address] Result Comment: Gyne cologic Cytology Report Case: [id number] Authorizing Provider: Sharda Valero APRN.NEON PUMPER Collected: 07/29/2024 01:48 PM Ordering Location: OB/Gynecology Received: 07/29/2024 04:10 PM First Screen: Aramouni, Ailyn, CT, ASCP Specimen: Pap Test, ThinPrep, Cervix Performed By: #### 5 8410-2 #### [facility] CLIA [id number] [address] [place] [address] [place] CLINICAL HISTORY, CYTOLOGY, INSTRUCTIONAL SUPPORT SPECIALIST Normal [facility] Comment on above: Order Comment: Speci men Type: BLOOD SPECIMEN Ordering Facility: [facility] Address: [address] [place] [address] Result Comment: Post (Indicate Weeks) No Menses, Other (Specify) Performed By: #### 5 8410-2 #### [facility] CLIA [id number] [address] [place] [address] [place] CYTOLOGY PAP OTHER INTERPRETATION Trichomonas vaginalis. Normal [facility] Comment on above: Order Comment: Speci men Type: BLOOD SPECIMEN Ordering Facility: [facility] Address: [address] [place] [address] Performed By: #### 5 8410-2 #### [facility] CLIA [id number] [address] [place] [address] [place] FINAL PERFORMING LAB Normal [facility] Comment on above: Order Comment: Speci men Type: BLOOD SPECIMEN Ordering Facility: [facility] Address: [address] [place] [address] Result Comment: Tech nical component, yeast stacker screening performed at [facility], [address] [place], [place] [id number] CLIA# [id number] Diagnostic interpretation performed at [facility], [address] [place] [address] CLIA# [id number] Paper Carrier: Cordell Shields M.D. Performed By: #### 5 8410-2 #### [facility] CLIA [id number] [address] [place] [address] [place] INTERPRETATION, CYTOLOGY, INSTRUCTIONAL SUPPORT SPECIALIST Normal [facility] Comment on above: Order Comment: Speci men Type: BLOOD SPECIMEN Ordering Facility: [facility] Address: [address] [place] [address] Result Comment: Nega tive for intraepithelial lesion or malignancy. at 1633 EST Performed By: #### 5 8410-2 #### [facility] CLIA [id number] [address] [place] [address] [place] PAP DISCLAIMER COMMENT The Pap Smear is a screening test for cervical cancer. False negative results occur with all screening tests, emphasizing the need for rescreening at recommended intervals, and clinical correlation. Normal [facility] Comment on above: Order Comment: Speci men Type: BLOOD SPECIMEN Ordering Facility: [facility] Address: [facility] [place] [address] Performed By: #### 5 8410-2 #### [facility] CLIA [id number] [address] OF [place] MR/OB.VAGDELIon 06-18-2024 MR/OB.VAGDELI [facility] Medical Records Department [address] [place] [address] OB VAGINAL DELIVERY 06/18/24 1315 MR#: [id number] Acct: [id number] Name: SHILPA HOANG Rep #: [id number] : 1995 28 From: Margarita Alcala MD PCP: Dr. David Mckinney MD Status:ADM IN Location: [id number] Assessment Plan (1) Gestational hypertension: QUALIFIERS: Trimester: third trimester Qualified Code(s): O13.3 - Gestational [-induced] hypertension without significant proteinuria, third trimester (2) 37 weeks gestation of : (3) (spontaneous vaginal delivery): Maternal Data Information JANE Calculator Estimated Delivery Date Method Current WG Current Estimate 07/04/24 Manual 37w 5d Final JANE: 07/04/24 Gestational age: 37+5 Vaginal Delivery Maternal Presentation Maternal Presentation: Medically Indicated Induction Maternal Presentation: IOL for GHTN Type of Induction: Pitocin and Amniotomy Medical Reason for Induction: Gestational Hypertension Vaginal Delivery Information Procedure Performed: Spontaneous Vaginal Delivery Surgeon/Practitioner: Margarita Alcala Date of Procedure: 06/18/24 Pre-Procedure Diagnosis: GHTN Post-Procedure Diagnosis: same Type of anesthesia: Epidural Estimated Blood Loss: 100 cc Time of Delivery: 11:56 Findings Description of procedure: Patient progressed to complete quickly after AROM. She pushed over and intact perineum to deliver OA with a nuchal cord around the neck x 1. It was easily reduced. The anterior and posterior shoulders delivered quickly followed the remainder of the body. The infant cried upon delivery and was placed on the maternal abdomen. The cord was clamped and cut after one minute. The placental delivered with manual traction. There were no lacerations in need of repair. Presentation: Vertex and ROHIT Amniotic Membrane Rupture Type: Artificial Amniotic Fluid Description: Clear Placental Delivery Description: Spontaneous Placenta Disposition: [facility] Cord Vessel Description: 3 Vessels Cord Entanglement: Around neck x 1, loose Nuchal Cord Compression: Without compression Infant A Gender: Male (1 minute): 8 (5 minute): 9 Delayed Cord Clamping: Yes Control Chemist used car lot attendant: No Post Vaginal Deli Medications given after delivery: IV Pitocin Episiotomy Description: None Laceration: None Complication Complications: No 06/18/241801 Cosigner Signature (if applicable): CC: RUBINA Turner; Dr. David Mckinney MD; Dr. Margarita Alcala MD Signed Normal [facility] Urine Drug Screen (VISTA)on 06-18-2024 AMPHETAMINES Normal <1000 ng/mL [facility] Comment on above: Result Comment: Canc elled via OM: MD Ordered Performed By: #### L 505.5000 #### [facility] [address] [facility] [place] [id number] BARBITIURATES Normal < 200 ng/mL [facility] Comment on above: Result Comment: Canc elled via OM: MD Ordered Performed By: #### L 505.5000 #### [facility] [address] [facility] [address] BENZODIAZIPINE Normal < 200 ng/mL [facility] Comment on above: Result Comment: Canc elled via OM: MD Ordered Performed By: #### L 505.5000 #### [facility] [address] [facility] [id number] COCAINE Normal < 300 ng/mL [facility] Comment on above: Result Comment: Canc elled via OM: MD Ordered Performed By: #### L 505.5000 #### [facility] [address] [place], [address] DRUG CONFIRM Normal [facility] Comment on above: Result Comment: Canc elled via OM: MD Ordered Performed By: #### L 505.5000 #### [facility] [address] [place], [address] ECSTACY Normal < 500 ng/mL [facility] Comment on above: Result Comment: Canc elled via OM: MD Ordered Performed By: #### L 505.5000 #### [facility] [address] [place], [address] METHADONE Normal < 300 ng/mL [facility] Comment on above: Result Comment: Canc elled via OM: MD Ordered Performed By: #### L 505.5000 #### [facility] [address] [place], [address] OPIATES Normal < 300 ng/mL [facility] Comment on above: Result Comment: Canc elled via OM: MD Ordered Performed By: #### L 505.5000 #### [facility] [address] [place], [address] PCP Normal < 25 ng/mL [facility] Comment on above: Result Comment: Canc elled via OM: MD Ordered Performed By: #### L 505.5000 #### [facility] [address] [place], [address] THC Normal < 50 ng/mL [facility] Comment on above: Result Comment: Canc elled via OM: MD Ordered Performed By: #### L 505.5000 #### [facility] [address] [place], [address] VISTA UDS PH Normal [facility] Comment on above: Result Comment: Canc elled via OM: MD Ordered Performed By: #### L 505.5000 #### [facility] [address] [place], [address] AST(SGOT)on 12-26-2024 AST [Catalytic activity/Vol] 13 U/L Low 15-37 [facility] Comment on above: Performed By: #### L 100.0100, L500.4050, L700.8000 #### [facility] [address] [place], [address] Alanine Aminotransferas (SGP T)on 06-17-2024 ALT [Catalytic activity/Vol] 15 U/L Normal 13-56 [facility] Comment on above: Performed By: #### L 100.0100, L500.4050, L700.8000 #### [facility] [address] [place], [address] CBC-Complete Blood Cnt No Di ffon 06-17-2024 Erythrocyte distribution width (RBC) [Ratio] 17.0 % High 11.6-14.6 [facility] Comment on above: Performed By: #### L 100.0100, L500.4050, L700.8000 #### [facility] [address] [place], [address] Hematocrit (Bld) [Volume fraction] 27.7 % Low 37-47 [facility] Comment on above: Performed By: #### L 100.0100, L500.4050, L700.8000 #### [facility] [address] [place], [address] Hemoglobin (Bld) [Mass/Vol] 8.6 g/dL Low 12.0-15.0 [facility] Comment on above: Performed By: #### L 100.0100, L500.4050, L700.8000 #### [facility] [address] [place], [address] MCH (RBC) [Entitic mass] 24.8 pg Low 27.0-32.0 [facility] Comment on above: Performed By: #### L 100.0100, L500.4050, L700.8000 #### [facility] [address] [place], [address] MCHC (RBC) [Mass/Vol] 31.0 g/dL Low 32-36 [facility] Comment on above: Performed By: #### L 100.0100, L500.4050, L700.8000 #### [facility] [address] [place], [address] MCV (RBC) [Entitic vol] 79.8 fL Low 81-99 [facility] Comment on above: Performed By: #### L 100.0100, L500.4050, L700.8000 #### [facility] [address] [place], [address] Platelet mean volume (Bld) [Entitic vol] 12.5 fL High 6.2-12.0 [facility] Comment on above: Performed By: #### L 100.0100, L500.4050, L700.8000 #### [facility] [address] [place], [address] Platelets (Bld) [#/Vol] 143 10*3/uL Low 150-450 [facility] Comment on above: Performed By: #### L 100.0100, L500.4050, L700.8000 #### [facility] [address] [place], [address] RBC (Bld) [#/Vol] 3.47 10*6/uL Low 4.2-5.4 [facility] Comment on above: Performed By: #### L 100.0100, L500.4050, L700.8000 #### [facility] [address] [place], [address] RDW SD 48.8 fl High 35.1-43.9 [facility] Comment on above: Performed By: #### L 100.0100, L500.4050, L700.8000 #### [facility] [address] [place], [address] WBC (Bld) [#/Vol] 10.8 10*3/uL Normal 4.4-11.0 [facility] Comment on above: Performed By: #### L 100.0100, L500.4050, L700.8000 #### [facility] [address] [place], [address] Erythrocyte distribution wid th (RBC) [Ratio]Ordered By: Johana Turner on 06-17-2024 Erythrocyte distribution width (RBC) [Entitic vol] 48.8 fL High 35.1-43.9 [facility] Erythrocyte distribution wid th ratioOrdered By: Johana Turner on 06-17-2024 Erythrocyte distribution width (RBC) [Ratio] 17.0 % High 11.6-14.6 [facility] Estimated glomerular filtrat ion rate (GFR) AmericanOrdered By: Johana Turner on 06-17-2024 Estimated GFR (MDRD) Amer 198 mL/min >60 [facility] Comment on above: GFR Calc Estimation of creatinine morgan aranceOrdered By: Johana Turner on 06-17-2024 Estimated Creatinine Clearance Calc 191.32 ml/min [facility] Glomerular filtration rate ( GFR) estimationOrdered By: Johana Turner on 06-17-2024 Estimated GFR (MDRD) Non-Af Amer 164 mL/min >60 [facility] Comment on above: Non- GFR Calc H AND P Exam - OB/GYNon 05-24 H&P Exam - CORE INSERTER [facility] Medical Records Department [address] [place] [address] H P Exam - CORE INSERTER 06/17/24 1705 MR#: [id number] Acct: [id number] Name: SHILPA HOANG Rep #: [id number] : 1995 28 From: Johana Turner CNNilda PCP: Dr. David Mckinney MD Status:ADM IN Location: [id number] HPI - General General Date of Admission: 06/17/24 HPI Narrative SHILPA HOANG, is a 28 F who presents from the office for elevated blood pressures. Maternal Data Information JANE Calculator Estimated Delivery Date Method Current WG Current Estimate 07/04/24 Manual 37w 4d PFSH PFSH Medical History (Updated 06/17/24 @ 17:08 by Johana Turner CNM) Depression Family history of hearing loss at age younger than 7 years Gestational HTN Stillborn, normal History of placental abruption Trauma depression Anxiety Cervical myofascial strain (spontaneous vaginal delivery) Home Medications ???Medication ???Instructions ???Recorded ???Last Taken ???Type oomicelv-cet-Mc-FA 1 mg 1 tab PO DAILY 09/13/21 02/17/22 09:00 History tablet ferrous sulfate 325 mg (65 mg 325 mg PO DAILY 02/17/22 02/14/22 21:00 History iron) tablet (Iron (ferrous sulfate)) sertraline 100 mg tablet 100 mg PO Q24H 08/10/23 05/19/24 History aspirin 81 mg tablet,delayed 81 mg PO DAILY 06/17/24 06/14/24 21:00 History release 81 mg Allergy/AdvReac Type Severity Reaction Status Date / Time walnut (walnuts) Allergy Severe Swelling Verified 06/17/24 15:55 corn AdvReac Other Verified 06/17/24 15:55 Social History number of children: 2 Smoking Status: Former smoker alcohol intake: former 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 Date Name GA/Weeks Outcome Route Bth Weight Infant Gen Labor Lgth Anesthesia Del Locatn Provider FOB 02/09/17 Piper 41 live - full term [id number] Female 18 epidural [facility] [place] 11/13/18 Radha 39 live - full term [id number] Female 13 epidural [facility] [place] NST FHR Rate Baby A Baseline: 140 Variability:: Moderate Accelerations:: 15 x 15 Decelerations:: None NST Reactive:: Yes FHR Category:: Category I Uterine Activity:: Irritability ROS Eyes Eyes: Denies blurry vision, change in vision or spots in vision ENT HEENT: Denies dizziness or headache(s) Cardiovascular Cardiovascular: Denies abdominal pain, chest pain or dyspnea Respiratory/Chest Respiratory/Chest: Denies cough, dyspnea, shortness of breath at rest or shortness of breath with exertion Gastrointestinal Gastrointestinal: Denies abdominal pain, diarrhea or vomiting Genitourinary Genitourinary: Denies change in urinary stream, difficulty urinating or dysuria Musculoskeletal Musculoskeletal: Reports none Integumentary Integumentary: Denies rash Neurologic Neurologic: Denies dizziness, headache(s), memory loss or weakness Psychiatric Psychiatric: Reports none Vital Signs Vital Signs Vital Signs: 06/17/24 11:36 06/17/24 11:36 06/17/24 11:36 Temperature Temperature Source Temporal Pulse Rate 100 Respiratory Rate Blood Pressure 142/100 H BP Systolic 142 BP Diastolic 100 Pulse Ox 06/17/24 11:36 06/17/24 11:36 06/17/24 11:37 Temperature 98.7 F Temperature Source Pulse Rate Respiratory Rate 16 Blood Pressure 146/82 H BP Systolic 146 BP Diastolic 82 Pulse Ox 06/17/24 11:37 06/17/24 11:53 06/17/24 11:53 Temperature Temperature Source Pulse Rate 96 97 Respiratory Rate Blood Pressure 131/74 H BP Systolic 131 BP Diastolic 74 Pulse Ox 06/17/24 12:09 06/17/24 12:09 06/17/24 12:23 Temperature Temperature Source Pulse Rate 106 H Respiratory Rate Blood Pressure 129/78 H 127/72 H BP Systolic 129 127 BP Diastolic 78 72 Pulse Ox 06/17/24 12:23 06/17/24 12:31 06/17/24 12:31 Temperature Temperature Source Pulse Rate 97 108 H Respiratory Rate Blood Pressure BP Systolic BP Diastolic Pulse Ox 98 06/17/24 12:36 06/17/24 12:36 06/17/24 12:39 Temperature Temperature Source Pulse Rate 96 Respiratory Rate Blood Pressure 110/65 BP Systolic 110 BP Diastolic 65 Pulse Ox 99 06/17/24 12:39 06/17/24 12:41 06/17/24 12:41 Temperature Temperature Source Pulse Rate 98 97 Respiratory Rate Blood Pressure BP (more content not included)... Normal [facility] Hematocrit Auto (Bld) [Volum e fraction]Ordered By: Johana Turner on 06-17-2024 Hematocrit (Bld) [Volume fraction] 27.7 % Low 37-47 [facility] Hemoglobin measurementOrdere d By: Johana Turner on 06-17-2024 Hemoglobin (Bld) [Mass/Vol] 8.6 g/dL Low 12.0-15.0 [facility] L509.8000on 06-17-2024 Syphilis Abs Non-Reactive Normal [facility] Comment on above: Performed By: #### L 505.5000 #### [facility] [address] [place], [place], [id number] Laboratory - Chemistry and C hemistry - challengeOrdered By: Johana Turner on 06-17-2024 AST [Catalytic activity/Vol] 13 U/L Low 15-37 [facility] MCV (mean corpuscular volume ) determinationOrdered By: Johana Turner on 06-17-2024 MCV (RBC) [Entitic vol] 79.8 fL Low 81-99 [facility] Mean corpuscular hemoglobin (MCH) determinationOrdered By: Johana Turner on 06-17-2024 MCH (RBC) [Entitic mass] 24.8 pg Low 27.0-32.0 [facility] Mean corpuscular hemoglobin concentration (MCHC) determinationOrdered By: Johana Turner on 06-17-2024 MCHC (RBC) [Mass/Vol] 31.0 g/dL Low 32-36 [facility] Mean platelet volume determi nationOrdered By: Johana Turner on 06-17-2024 Platelet mean volume (Bld) [Entitic vol] 12.5 fL High 6.2-12.0 [facility] Methadone, urineOrdered By: Johana Turner on 06-17-2024 Urine Methadone Screen Negative < 300 ng/mL [facility] No Panel InformationOrdered By: Johana Turner on 06-17-2024 Urine Drug Screen Comment [facility] Comment on above: CONFIRMATORY TESTING FOR ALL POSITIVE URINE DRUG SCREENRESULTS WILL ONLY BE SENT OUT UPON PHYSICIAN ORDER. VISTA Urine Drug Screen methods provide only preliminaryanalytical test results. A more specific alternate chemicalmethod must be used in order to obtain a confirmedanalytical result. Gas chromatography/mass spectrometery(GC/MS) is the preferred confirmatory method. Clinicalconsideration and professional judgement should be appliedto any drug of abuse test result, particularly whenpreliminary positive results are used. URINE TCA TESTING MUST BE ORDERED SEPARATELY. USE TESTMNEMONIC: [facility] Platelet countOrdered By: Alanna Turner on 06-17-2024 Platelets (Bld) [#/Vol] 143 10*3/uL Low 150-450 [facility] Protein+Creatinine Ratio,Uri neon 06-17-2024 PROT:CRE RATIO 218 mg/g CRE High 0-200 [facility] Comment on above: Performed By: #### L 100.0100, L500.4050, L700.8000 #### [facility] [address] [place], [address] Protein (U) [Mass/Vol] 30.5 mg/dL High <11.9 [facility] Comment on above: Performed By: #### L 100.0100, L500.4050, L700.8000 #### [facility] [address] [place], [address] UR CREAT 140.00 mg/dL Normal NO RANGE EST. [facility] Comment on above: Performed By: #### L 100.0100, L500.4050, L700.8000 #### [facility] [address] [place], [address] Protein/Creatinine (U) [Mass ratio]Ordered By: Johana Turner on 06-17-2024 Urine Protein/Creatinine Ratio 218 mg/g CRE High 0-200 [facility] Quantitative urine opiates m easurementOrdered By: Johana Turner on 06-17-2024 Opiates Ql (U) Negative < 300 ng/mL [facility] RBC Auto (Bld) [#/Vol]Ordere d By: Johana Turner on 06-17-2024 RBC (Bld) [#/Vol] 3.47 10*6/uL Low 4.2-5.4 [facility] Random urine protein measure mentOrdered By: Johana Turner on 06-17-2024 Protein (U) [Mass/Vol] 30.5 mg/dL High 0.0-11.8 [facility] Serum Creatinine AND GFRon 1 08-18-2023 Creatinine [Mass/Vol] 0.48 mg/dL Low 0.55-1.02 [facility] Comment on above: Result Comment: The validity of the calculated GFR GFRAA in patients over 70 years has not been determined. Clinical correlation is essential. Performed By: #### L 100.0100, L500.4050, L700.8000 #### [facility] [address] [place], [address] ECRCL 191.32 ml/min Normal [facility] Comment on above: Performed By: #### L 100.0100, L500.4050, L700.8000 #### [facility] [address] [place], [address] EST GFR - AA 198 mL/min Normal >60 [facility] Comment on above: Result Comment: Afri can Tunisian GFR Calc Performed By: #### L 100.0100, L500.4050, L700.8000 #### [facility] [address] [place], [address] GFR/1.73 sq M.predicted among non-blacks MDRD (S/P/Bld) [Vol rate/Area] 164 mL/min/{1.73_m2} Normal >60 [facility] Comment on above: Result Comment: Non- GFR Calc Performed By: #### L 100.0100, L500.4050, L700.8000 #### [facility] [address] [place], [address] Serum or plasma alanine rivero otransferase (ALT) measurementOrdered By: Johana Turner on 06-17-2024 ALT [Catalytic activity/Vol] 15 U/L 13-56 [facility] Serum or plasma creatinine m easurement (mass/volume)Ordered By: Johana Turner on 06-17-2024 Creatinine [Mass/Vol] 0.48 mg/dL Low 0.55-1.02 [facility] Comment on above: The validity of the calculated GFR & GFRAA in patients over 70 years has not been determined. Clinical correlation is essential. Serum or plasma uric acid me asurement (mass/volume)Ordered By: Johana Turner on 06-17-2024 Urate [Mass/Vol] 4.2 mg/dL 2.6-6.0 [facility] Comment on above: The drugs N-Acetylcy steine and Metamizole may falsely depress this assay. Treponema sp Ab Ql (S)Ordere d By: Olivia Cassidy on 06-17-2024 Syphilis Total Antibody Non-Reactive [facility] Type AND Screenon 06-17-2024 ABO and Rh group Nom (Bld) Blood group A Rh(D) positive Normal [facility] Comment on above: Order Comment: Labor Performed By: #### L 100.0100, L500.4050, L700.8000 #### [facility] [address] [place], [place], [id number] URINE OB DIP B/Oon Glucose Ql (U) Negative Neg mg/dL [facility] Protein.monoclonal (U) [Mass/Vol] Negative Neg mg/dL [facility] Uric Acidon 06-17-2024 URIC 4.2 mg/dL Normal 2.6-6.0 [facility] Comment on above: Result Comment: The drugs N-Acetylcysteine and Metamizole may falsely depress this assay. Performed By: #### L 100.0100, L500.4050, L700.8000 #### [facility] [address] [place], [place], [id number] Urine Drug Screen (VISTA)on 06-17-2024 AMPHETAMINES Negative Normal <1000 ng/mL [facility] Comment on above: Order Comment: amphe tamines Performed By: #### L 100.0100, L500.4050, L700.8000 #### [facility] [address] [facility] [address] BARBITIURATES Negative Normal < 200 ng/mL [facility] Comment on above: Order Comment: amphe tamines Performed By: #### L 100.0100, L500.4050, L700.8000 #### [facility] [address] [place] [id number] BENZODIAZIPINE Negative Normal < 200 ng/mL [facility] Comment on above: Order Comment: amphe tamines Performed By: #### L 100.0100, L500.4050, L700.8000 #### [facility] [address] [place] [id number] COCAINE Negative Normal < 300 ng/mL [facility] Comment on above: Order Comment: amphe tamines Performed By: #### L 100.0100, L500.4050, L700.8000 #### [facility] [address] [place] [id number] ECSTACY Negative Normal < 500 ng/mL [facility] Comment on above: Order Comment: amphe tamines Performed By: #### L 100.0100, L500.4050, L700.8000 #### [facility] [address] [place] [id number] METHADONE Negative Normal < 300 ng/mL [facility] Comment on above: Order Comment: amphe tamines Performed By: #### L 100.0100, L500.4050, L700.8000 #### [facility] [address] [place] [address] OPIATES Negative Normal < 300 ng/mL [facility] Comment on above: Order Comment: amphe tamines Performed By: #### L 100.0100, L500.4050, L700.8000 #### [facility] [address] [place] [id number] PCP Negative Normal < 25 ng/mL [facility] Comment on above: Order Comment: amphe tamines Performed By: #### L 100.0100, L500.4050, L700.8000 #### [facility] [address] [place], [address] THC Negative Normal < 50 ng/mL [facility] Comment on above: Order Comment: amphe tamines Performed By: #### L 100.0100, L500.4050, L700.8000 #### [facility] [address] [place], [place], [address] VISTA UDS PH 5 Normal [facility] Comment on above: Order Comment: amphe tamines Performed By: #### L 100.0100, L500.4050, L700.8000 #### [facility] [address] [place], [place], [id number] Urine amphetamine measuremen tOrdered By: Johana Turner on 06-17-2024 Amphetamines Ql (U) Negative <1000 ng/mL [facility] Urine barbiturates measureme ntOrdered By: Johana Turner on 06-17-2024 Urine Barbiturates Screen Negative < 200 ng/mL [facility] Urine benzodiazepine levelOr dered By: Johana Turner on 06-17-2024 Benzodiazepines Ql (U) Negative < 200 ng/mL [facility] Urine cocaine levelOrdered B y: Johana Turner on 06-17-2024 Cocaine Ql (U) Negative < 300 ng/mL [facility] Urine creatinine measurement (mass/volume)Ordered By: Johana Turner on 06-17-2024 Creatinine (U) [Mass/Vol] 140.00 mg/dL NO RANGE EST. [facility] Urine ryhce-4-fhsjoteztjmjzt abinol (THC) measurementOrdered By: Johana Turner on 06-17-2024 Cannabinoids Screen Ql (U) Negative < 50 ng/mL [facility] Urine methylenedioxymethamph etamine (MDMA) measurementOrdered By: Johana Turner on 06-17-2024 MDMA (Ecstasy) Screen Negative < 500 ng/mL [facility] Urine phencyclidine (PCP) de tectionOrdered By: Johana Turner on 06-17-2024 Phencyclidine Ql (U) Negative < 25 ng/mL [facility] White blood cell (WBC) count Ordered By: Johana Turner on 06-17-2024 WBC (Bld) [#/Vol] 10.8 10*3/uL 4.4-11.0 [facility] CNPNon 06-14-2024 CNPN Telephone (OBGYWM) SHILPA HOANG ([id number]) 1995 F Date Time Provider Department 06/14/24 SARAH HUBER OBGYWM During your visit today, we recorded the following information about you: Jennifer Roldan 06/14/2024 10:[address] [facility] OB is requesting HANDP to be faxed to [phone]. Margarita Hearn RN 06/14/2024 11:06 AM Signed Faxed via [employer]. Margarita Hearn RN Allergies As of Date: 06/14/2024 Noted Allergy Reaction WALNUT 11/10/2023 10 - Anaphylaxis CORN 11/10/2023 5 - Intolerance SEASONAL ALLERGIES 11/10/2023 3 - Cough Date Reviewed: 06/11/2024 Reviewed by: Terrie Ramirez MA - Fully Assessed Reason for Visit: Release Of Medical Records [2017] Prescriptions as of 06/14/2024 - FLUoxetine HCl 20 mg tablet Take 1 tablet by mouth every afternoon. - AMOXICILLIN ORAL Take by mouth. - acetaminophen (TYLENOL) 500 mg tablet - ferrous sulfate 325 mg (65 mg iron) tablet Take 1 tablet by mouth once daily. - folic acid 1 mg tablet Take 1 tablet by mouth once daily. - aspirin, enteric coated (ECOTRIN LOW STRENGTH) 81 mg EC tablet Take 1 tablet by mouth once daily. Problem List As Of Date 06/14/2024 Noted Resolved Supervision of high risk in third tri*11/13/2023 History of IUFD [Z87.59] 11/13/2023 11/13/2023 Endometritis [N71.9] 11/13/2023 History of gestational hypertension [Z87.59] 11/13/2023 History of IUFD [Z87.59] 11/13/2023 History of drug abuse (HCC) [F19.11] 11/13/2023 Antepartum anemia complicating in thi*04/14/2024 Polyhydramnios in third trimester [O40.3XX0] 05/14/2024 Obesity complicating , third trimester*06/03/2024 Benign gestational thrombocytopenia in third tr*06/03/2024 Maternal iron deficiency anemia complicating pr*06/09/2024 Breech presentation with problem [O32*06/11/2024 Positive GBS test [B95.1] 06/14/2024 Encounter Status:Closed by MARGARITA HEARN on 06/14/24 Normal [facility] Examination level ultrasound on 06-12-2024 [facility] Examination level ultrasound on 06-11-2024 Radiology Study observation (narrative) [facility] ROUTINE, GROUP B ST REP PCRon 06-11-2024 ROUTINE, GROUP B STREP PCR GROUP B STREP PCR: Positive for Group B Streptococcus by PCR. Abnormal [facility] Comment on above: Performed By: #### G BPCR ####[facility] LABCLIA [id number] [place] [address] [place] URINE OB DIP B/Oon Glucose Ql (U) Negative Neg mg/dL [facility] Protein.monoclonal (U) [Mass/Vol] trace Neg mg/dL [facility] FERRITINon 06-05-2024 Ferritin [Mass/Vol] 11.4 ng/mL Low 14.7 - 2 05.1 ng/mL [facility] Ferritin [Mass/Vol]on 12-14- 2024 Interpretation and review of laboratory results Abnormal [facility] Iron and Iron binding capaci ty panelon 06-05-2024 Interpretation and review of laboratory results Abnormal [facility] Iron [Mass/Vol] 25 ug/dL Low 41 - 186 ug/dL [facility] Iron binding capacity [Mass/Vol] 490 ug/dL High 232 - 386 ug/dL [facility] Iron/TIBC [Molar ratio] 5.1 % Low 15.0 - 57.0 % [facility] Ferritin SerPl-mCncon 2023 Ferritin [Mass/Vol] 11.4 ng/mL Low 14.7-205.1 [facility] Comment on above: Order Comment: Speci men Type: BLOOD SPECIMENOrdering Facility: [facility] Address: [address] [place] [address] Performed By: #### 2 276-4, 41310-2 ####[facility] LABCLIA [id number] [place] [address] [place] Iron and Iron binding capaci ty panelon 06-04-2024 Iron [Mass/Vol] 25 ug/dL Low 41-186 [facility] Comment on above: Order Comment: Speci men Type: BLOOD SPECIMENOrdering Facility: [facility] Address: [address] [place] [address] Performed By: #### 2 276-4, 22661-9 ####[facility] LABCLIA [id number] [place] [address] [place] Iron binding capacity [Mass/Vol] 490 ug/dL High 232-386 [facility] Comment on above: Order Comment: Speci men Type: BLOOD SPECIMENOrdering Facility: [facility] Address: [address] [place] [address] Performed By: #### 2 276-4, 99898-3 ####[facility] LABCLIA [id number] [place] [address] [place] Iron/TIBC [Molar ratio] 5.1 % Low 15.0-57.0 [facility] Comment on above: Order Comment: Speci men Type: BLOOD SPECIMENOrdering Facility: [facility] Address: [address] [place] [address] Performed By: #### 2 276-4, 85776-7 ####[facility] LABCLIA [id number] [place] [id number] STATES OF [facility] CBC panel Auto (Bld)on 06-03 Erythrocyte distribution width (RBC) [Ratio] 16.8 % High 11.5 - 15.0 % [facility] Hematocrit (Bld) [Volume fraction] 27.9 % Low 36.0 - 46.0 % [facility] Hemoglobin (Bld) [Mass/Vol] 8.8 g/dL Low 11.5 - 15.5 g/dL [facility] Interpretation and review of laboratory results Abnormal [facility] MCH (RBC) [Entitic mass] 26.0 pg 26.0 - 34.0 pg [facility] MCHC (RBC) [Mass/Vol] 31.5 g/dL 30.5 - 36.0 g/dL [facility] MCV (RBC) [Entitic vol] 82.3 fL 80.0 - 100.0 fL [facility] Nucleated RBC (Bld) [#/Vol] NINF [facility] Platelet mean volume (Bld) [Entitic vol] 12.5 fL 9.0 - 12.7 fL [facility] Platelets (Bld) [#/Vol] 123 10*3/uL Low [facility] Comment on above: No clot detected. RBC (Bld) [#/Vol] 3.39 10*6/uL Low 3.90 - 5.2 0 m/uL [facility] WBC (Bld) [#/Vol] 9.56 10*3/uL [facility] Erythrocyte distribution width (RBC) [Ratio] 16.8 % High 11.5-15.0 [facility] Comment on above: Order Comment: Speci men Type: BLOOD SPECIMEN [facility] Address: [address] [place] [address] Performed By: #### 5 8410-2 #### [facility] CLIA [id number] [address] [place] [address] [place] Hematocrit (Bld) [Volume fraction] 27.9 % Low 36.0-46.0 [facility] Comment on above: Order Comment: Speci men Type: BLOOD SPECIMEN [facility] Address: [address] [place] [address] Performed By: #### 5 8410-2 #### [facility] [id number] [address] [place] [address] [place] Hemoglobin (Bld) [Mass/Vol] 8.8 g/dL Low 11.5-15.5 [facility] Comment on above: Order Comment: Speci men Type: BLOOD SPECIMEN [facility] Address: [address] [place] [address] Performed By: #### 5 8410-2 #### [facility] [id number] [address] [place] [address] [place] MCH (RBC) [Entitic mass] 26.0 pg Normal 26.0-34.0 [facility] Comment on above: Order Comment: Speci men Type: BLOOD SPECIMEN [facility] Address: [address] [place] [address] Performed By: #### 5 8410-2 #### [facility] [id number] [address] [place] [address] [place] MCHC (RBC) [Mass/Vol] 31.5 g/dL Normal 30.5-36.0 [facility] Comment on above: Order Comment: Speci men Type: BLOOD SPECIMEN [facility] Address: [address] [place] [address] Performed By: #### 5 8410-2 #### [facility] CLIA [id number] [address] [place] [address] [place] MCV (RBC) [Entitic vol] 82.3 fL Normal 80.0-100.0 C [facility] Comment on above: Order Comment: Speci men Type: BLOOD SPECIMEN [facility] Address: [address] [place] [address] Performed By: #### 5 8410-2 #### [facility] CLIA [id number] [address] [place] [address] [place] Nucleated RBC (Bld) [#/Vol] 10*3/uL Normal <0.01 [facility] Comment on above: Order Comment: Speci men Type: BLOOD SPECIMEN [facility] Address: [address] [place] [address] Performed By: #### 5 8410-2 #### [facility] CLIA [id number] [address] [place] [address] [place] Platelet mean volume (Bld) [Entitic vol] 12.5 fL Normal 9.0-12.7 [facility] Comment on above: Order Comment: Speci men Type: BLOOD SPECIMEN [facility] Address: [address] [place] [address] Performed By: #### 5 8410-2 #### [facility] CLIA [id number] [address] [place] [address] [place] Platelets (Bld) [#/Vol] 123 10*3/uL Low 150-400 [facility] Comment on above: Order Comment: Speci men Type: BLOOD SPECIMEN [facility] Address: [address] [place] [address] Result Comment: No c lot detected. Performed By: #### 5 8410-2 #### [facility] CLIA [id number] [address] [place] [address] [place] RBC (Bld) [#/Vol] 3.39 10*6/uL Low 3.90-5.20 [facility] Comment on above: Order Comment: Speci men Type: BLOOD SPECIMEN [facility] Address: [address] [place] [address] [place] [address] Performed By: #### 5 8410-2 #### [facility] CLIA [id number] [address] [place] [address] [place] WBC (Bld) [#/Vol] 9.56 10*3/uL Normal 3.70-11.00 [facility] Comment on above: Order Comment: Speci men Type: BLOOD SPECIMEN [facility] Address: [address] [place] [id number] Performed By: #### 5 8410-2 #### [facility] CLIA [id number] [address] [place] [address] OF [facility] CNPKaelyn 06-03-2024 RUTH Telephone (OBGYWM) SHILPA HOANG ([id number]) 1995 F Date Time Provider Department 06/03/24 HALLE ORELLANA During your visit today, we recorded the following information about you: Halle Orellana APRN.CNP 06/03/2024 3:08 PM Signed Hemoglobin 8.8. Blood management referral placed. Please assist in arranging. GLORIA Oscar Jennifer, RN 06/03/2024 3:16 PM Signed Patient will need to have iron studies drawn first before Blood Management can work on referral. Please file pending orders. Will then call patient. CHANA Gonzalez Jennifer, RN 06/03/2024 3:54 PM Signed 35w4d Patient notified. Will have iron studies drawn tomorrow. Margarita Hearn RN Allergies As of Date: 06/03/2024 Noted Allergy Reaction WALNUT 11/10/2023 10 - Anaphylaxis CORN 11/10/2023 5 - Intolerance SEASONAL ALLERGIES 11/10/2023 3 - Cough Date Reviewed: 06/03/2024 Reviewed by: Halle Orellana APRN.NEON PUMPER - Fully Assessed Reason for Visit: Results [95] Primary Visit Diagnosis:Anemia complicating , third trimester [O99.013] Other Visit Diagnosis:Antepartum anemia complicating in third trimester [O99.013] Order(s):BLOOD MANAGEMENT REFERRAL [9149512] Order #: [id number]: 1 FERRITIN [SQFERR] Order #: [id number] FUTURE IRON AND TIBC [SQIRON] Order #: [id number] FUTURE Prescriptions as of 06/07/2024 - FLUoxetine HCl 20 mg tablet Take 1 tablet by mouth every afternoon. - AMOXICILLIN ORAL Take by mouth. - acetaminophen (TYLENOL) 500 mg tablet - ferrous sulfate 325 mg (65 mg iron) tablet Take 1 tablet by mouth once daily. - folic acid 1 mg tablet Take 1 tablet by mouth once daily. - aspirin, enteric coated (ECOTRIN LOW STRENGTH) 81 mg EC tablet Take 1 tablet by mouth once daily. Problem List As Of Date 06/03/2024 Noted Resolved Supervision of high risk in third tri*11/13/2023 History of IUFD [Z87.59] 11/13/2023 11/13/2023 Endometritis [N71.9] 11/13/2023 History of gestational hypertension [Z87.59] 11/13/2023 History of IUFD [Z87.59] 11/13/2023 History of drug abuse (HCC) [F19.11] 11/13/2023 Antepartum anemia complicating in thi*04/14/2024 Polyhydramnios in third trimester [O40.3XX0] 05/14/2024 Obesity complicating , third trimester*06/03/2024 Benign gestational thrombocytopenia in third tr*06/03/2024 Encounter Status:Closed by KHUSHBOO ABRAHAM on 06/07/24 Normal [facility] URINE OB DIP B/OOrdered By: Alicia Holliday on 06-03-2024 Glucose Ql (U) Negative Neg mg/dL [facility] Interpretation and review of laboratory results Normal [facility] Protein.monoclonal (U) [Mass/Vol] Negative Neg mg/dL [facility] OB Triage Physician Noteon 1 07-29-2023 OB Triage Physician Note [facility] Medical Records Department [address] [place] [address] OB Triage Physician Note 05/28/24 1239 MR#: [id number] Acct: [id number] Name: SHILPA HOANG Rep #: [id number] : 1995 28 From: Jeanette Patel MD PCP: Dr. David Mckinney MD Status:DEP CLI Y Location: [facility] HPI - General General Date of Service: 05/20/24 HPI Narrative SHILPA HOANG, is a 28 F who presents with decreased FM. Maternal Data Information JANE Calculator Estimated Delivery Date Method Current WG Current Estimate 07/04/24 Manual 34w 5d Final JANE: 07/04/24 [facility] Medical History History of placental abruption Trauma depression Anxiety Cervical myofascial strain (spontaneous vaginal delivery) Home Medications ???Medication ???Instructions ???Recorded ???Last Taken ???Type gosslxzc-vrs-Oy-FA 1 mg 1 tab PO DAILY 09/13/21 02/17/22 09:00 History tablet ferrous sulfate 325 mg (65 mg 325 mg PO DAILY 02/17/22 02/14/22 21:00 History iron) tablet (Iron (ferrous sulfate)) sertraline 100 mg tablet 100 mg PO Q24H 08/10/23 05/19/24 History Allergy/AdvReac Type Severity Reaction Status Date / Time walnut (walnuts) Allergy Severe Swelling Verified 05/20/24 19:50 Social History number of children: 2 Smoking Status: Current every day smoker tobacco type: cigarettes alcohol intake: former 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 Date Name GA/Weeks Outcome Route Bth Weight Infant Gen Labor Lgth Anesthesia Del Locatn Provider FOB 02/09/17 Piper 41 live - full term [id number] Female [address] [facility] [place] 11/13/18 Radha 39 live - full term 8lb2oz Female [address] [facility] [place] NST FHR Rate Baby A Baseline: 125 Variability:: Moderate Accelerations:: 15 x 15 Decelerations:: None NST Reactive:: Yes Uterine Activity:: quiet Assessment Plan (1) Decreased movement: QUALIFIERS: Fetus number: single or unspecified fetus Trimester: third trimester Qualified Code(s): O36.8130 - Decreased movements, third trimester, not applicable or unspecified PLAN: reactive NST 05/28/24 1241 Date Jeanette Patel MD Cosign Signature (if applicable): Date CC: Dr. David Mckinney MD; Dr. Jeanette Patel MD Signed Normal [facility] URINE OB DIP B/Oon 4 Glucose Ql (U) Negative Neg mg/dL [facility] Interpretation and review of laboratory results Normal [facility] Protein.monoclonal (U) [Mass/Vol] Negative Neg mg/dL [facility] Examination level ultrasound on 05-12-2024 [facility] Radiology Study observation (narrative) Judie easton [facility] ([id number]) 1995 F Date Time Provider Department 04/29/24 JESS, MARGARITA OBGYWM During your visit today, we recorded the following information about you: Nicci Mckeon RN 04/29/2024 9:36 AM Signed Margarita Alcala MD P [facility] Ob-Director Style Pool This patient is also suppose to be weekly NSTs at 32 weeks because of HX of IUFD ([facility] recommended) She was suppose to schedule theses as she left and it does not appear she did. Nicci Mckeon RN 04/29/2024 9:36 AM Signed Pt notified of need for weekly NSTs starting at 32 weeks. Appointments set up for next 3 weeks. Nicci Mckeon RN Allergies As of Date: 04/29/2024 Noted Allergy Reaction WALNUT 11/10/2023 10 - Anaphylaxis CORN 11/10/2023 5 - Intolerance SEASONAL ALLERGIES 11/10/2023 3 - Cough Date Reviewed: 04/28/2024 Reviewed by: Margarita Alcala MD - Fully Assessed Prescriptions as of 04/29/2024 - FLUoxetine HCl 20 mg tablet Take 1 tablet by mouth every afternoon. - AMOXICILLIN ORAL Take by mouth. - acetaminophen (TYLENOL) 500 mg tablet - ferrous sulfate 325 mg (65 mg iron) tablet Take 1 tablet by mouth once daily. - folic acid 1 mg tablet Take 1 tablet by mouth once daily. - aspirin, enteric coated (ECOTRIN LOW STRENGTH) 81 mg EC tablet Take 1 tablet by mouth once daily. Problem List As Of Date 04/29/2024 Noted Resolved Encounter for supervision of normal i*11/13/2023 History of IUFD [Z87.59] 11/13/2023 11/13/2023 Endometritis [N71.9] 11/13/2023 History of gestational hypertension [Z87.59] 11/13/2023 History of IUFD [Z87.59] 11/13/2023 History of drug abuse (HCC) [F19.11] 11/13/2023 Antepartum anemia complicating in thi*04/14/2024 Encounter Status:Closed by NICCI MCKEON on 04/29/24 [facility] 04-22-2024 [facility] Telephone (OBGYWM) SHILPA HOANG ([id number]) 1995 F Date Time Provider Department 04/22/24 JOHANA TURNERWNilda During your visit today, we recorded the following information about you: Margarita Hearn RN 04/22/2024 12:49 PM Signed .29w4d Patient called with c/o pelvic pain and pressure. Last night her pain was a 6 out of 10. The pain stopped this morning at 6 AM, but she still has the pelvic pressure. Denies leaking of fluid, urinary frequency or dysuria. Would you like patient seen in office today? If so, where can patient be added. Thank you. CHANA Gonzalez Courtney, APRN.CNM 04/22/2024 3:08 PM Signed If patient is not having any current pain or cramping, and feeling positive movement, I am fine for her to monitor at home. She can be seen tomorrow in office if needed. Johana Turner APRN.ANIL Margarita Hearn RN 04/22/2024 4:43 PM Signed Left detailed message on identified voicemail. Margarita Hearn RN Allergies As of Date: 04/22/2024 Noted Allergy Reaction WALNUT 11/10/2023 10 - Anaphylaxis CORN 11/10/2023 5 - Intolerance SEASONAL ALLERGIES 11/10/2023 3 - Cough Date Reviewed: 04/14/2024 Reviewed by: Margarita Alcala MD - Fully Assessed Reason for Visit: OB Pain [Other] Prescriptions as of 04/22/2024 - FLUoxetine HCl 20 mg tablet Take 1 tablet by mouth every afternoon. - AMOXICILLIN ORAL Take by mouth. - acetaminophen (TYLENOL) 500 mg tablet - ferrous sulfate 325 mg (65 mg iron) tablet Take 1 tablet by mouth once daily. - folic acid 1 mg tablet Take 1 tablet by mouth once daily. - aspirin, enteric coated (ECOTRIN LOW STRENGTH) 81 mg EC tablet Take 1 tablet by mouth once daily. Problem List As Of Date 04/22/2024 Noted Resolved Encounter for supervision of normal i*11/13/2023 History of IUFD [Z87.59] 11/13/2023 11/13/2023 Endometritis [N71.9] 11/13/2023 History of gestational hypertension [Z87.59] 11/13/2023 History of IUFD [Z87.59] 11/13/2023 History of drug abuse (HCC) [F19.11] 11/13/2023 Antepartum anemia complicating in thi*04/14/2024 Encounter Status:Closed by JOHANA TURNER on 04/22/24 Normal [facility] 04-19-2024 CNPN Telephone (OGFVWE) SHILPA HOANG ([id number]) 1995 F Date Time Provider Department 04/19/24 NURSE LOG SNAKER [facility] O[facility] During your visit today, we recorded the following information about you: Carla Mckinney RN 04/19/2024 8:48 AM Signed 3rd risk assessment form submitted 04/19/24 Carla Mckinney RN Allergies As of Date: 04/19/2024 Noted Allergy Reaction WALNUT 11/10/2023 10 - Anaphylaxis CORN 11/10/2023 5 - Intolerance SEASONAL ALLERGIES 11/10/2023 3 - Cough Date Reviewed: 04/14/2024 Reviewed by: Margarita Alcala MD - Fully Assessed Reason for Visit: PRAF [4193] Prescriptions as of 04/19/2024 - FLUoxetine HCl 20 mg tablet Take 1 tablet by mouth every afternoon. - AMOXICILLIN ORAL Take by mouth. - acetaminophen (TYLENOL) 500 mg tablet - ferrous sulfate 325 mg (65 mg iron) tablet Take 1 tablet by mouth once daily. - folic acid 1 mg tablet Take 1 tablet by mouth once daily. - aspirin, enteric coated (ECOTRIN LOW STRENGTH) 81 mg EC tablet Take 1 tablet by mouth once daily. Problem List As Of Date 04/19/2024 Noted Resolved Encounter for supervision of normal i*11/13/2023 History of IUFD [Z87.59] 11/13/2023 11/13/2023 Endometritis [N71.9] 11/13/2023 History of gestational hypertension [Z87.59] 11/13/2023 History of IUFD [Z87.59] 11/13/2023 History of drug abuse (HCC) [F19.11] 11/13/2023 Antepartum anemia complicating in thi*04/14/2024 Encounter Status:Closed by CARLA MCKINNEY on 04/19/24 Normal [facility] Examination level ultrasound on 04-14-2024 [facility] Radiology Study observation (narrative) [facility] CBC W Auto Differential pane l (Bld)on 04-13-2024 Basophils (Bld) [#/Vol] 0.04 10*3/uL Normal <0.11 [facility] Comment on above: Order Comment: Speci men Type: BLOOD SPECIMENOrdering Facility: [facility] Address: [address] [place] [address] Performed By: #### 5 7021-8 ####[facility] [id number] [place] [address] [place] Basophils/100 WBC (Bld) 0.4 % Normal [facility] Comment on above: Order Comment: Speci men Type: BLOOD SPECIMENOrdering Facility: [facility] Address: [address] [place] [address] Performed By: #### 5 7021-8 ####[facility] [id number] [place] [address] [place] Differential cell count method Nom (Bld) Auto Normal [facility] Comment on above: Order Comment: Speci men Type: BLOOD SPECIMENOrdering Facility: [facility] Address: [address] [place] [address] Performed By: #### 5 7021-8 ####[facility] [id number] [place] [address] [place] Eosinophils (Bld) [#/Vol] 0.21 10*3/uL Normal <0.46 [facility] Comment on above: Order Comment: Speci men Type: BLOOD SPECIMENOrdering Facility: [facility] Address: [address] [place] [address] Performed By: #### 5 7021-8 ####[facility]OSPITALQINGA [id number] [place] [address] [place] Eosinophils/100 WBC (Bld) 2.3 % Normal [facility] Comment on above: Order Comment: Speci men Type: BLOOD SPECIMENOrdering Facility: [facility] Address: [address] [place] [address] Performed By: #### 5 7021-8 ####[facility] [id number] [place] [address] [place] Erythrocyte distribution width (RBC) [Ratio] 13.7 % Normal 11.5-15.0 [facility] Comment on above: Order Comment: Speci men Type: BLOOD SPECIMENOrdering Facility: [facility] Address: [address] [place] [address] Performed By: #### 5 7021-8 ####[facility]ITALQINGMere [id number] [place] [address] [place] Hematocrit (Bld) [Volume fraction] 32.2 % Low 36.0-46.0 [facility] Comment on above: Order Comment: Speci men Type: BLOOD SPECIMENOrdering Facility: [facility] Address: [address] [place] [address] Performed By: #### 5 7021-8 ####[facility]ITALNCLIA [id number] [place] [address] [place] Hemoglobin (Bld) [Mass/Vol] 10.2 g/dL Low 11.5-15.5 [facility] Comment on above: Order Comment: Speci men Type: BLOOD SPECIMENOrdering Facility: [facility] Address: [address] [place] [address] Performed By: #### 5 7021-8 ####[facility]ITALNCTHE [facility] [id number] [place] [address] [place] Immature granulocytes (Bld) [#/Vol] 0.14 10*3/uL High <0.10 [facility] Comment on above: Order Comment: Speci men Type: BLOOD SPECIMENOrdering Facility: [facility] Address: [address] [place] [address] Performed By: #### 5 7021-8 ####[facility] [id number] [place] [address] [place] Immature granulocytes/100 WBC (Bld) 1.5 % Normal [facility] Comment on above: Order Comment: Speci men Type: BLOOD SPECIMENOrdering Facility: [facility] Address: [address] [place] [address] Performed By: #### 5 7021-8 ####[facility] [id number] [place] [address] [place] Lymphocytes (Bld) [#/Vol] 2.19 10*3/uL Normal 1.00-4.00 [facility] Comment on above: Order Comment: Speci men Type: BLOOD SPECIMENOrdering Facility: [facility] Address: [address] [place] [address] Performed By: #### 5 7021-8 ####[facility] [id number] [place] [address] [place] Lymphocytes/100 WBC (Bld) 23.5 % Normal [facility] Comment on above: Order Comment: Speci men Type: BLOOD SPECIMENOrdering Facility: [facility] Address: [address] [place] [address] Performed By: #### 5 7021-8 ####[facility] HOSPITALJOON [id number] [address] [place] [facility] MCH (RBC) [Entitic mass] 26.6 pg Normal 26.0-34.0 [facility] Comment on above: Order Comment: Speci men Type: BLOOD SPECIMENOrdering Facility: [facility] Address: [address] [place] [address] Performed By: #### 5 7021-8 ####[facility]ITALNCT[facility] [id number] [place] [address] [place] MCHC (RBC) [Mass/Vol] 31.7 g/dL Normal 30.5-36.0 [facility] Comment on above: Order Comment: Speci men Type: BLOOD SPECIMENOrdering Facility: [facility] Address: [address] [place] [address] Performed By: #### 5 7021-8 ####[facility] [id number] [place] [address] [place] MCV (RBC) [Entitic vol] 83.9 fL Normal 80.0-100.0 [facility] Comment on above: Order Comment: Speci men Type: BLOOD SPECIMENOrdering Facility: [facility] Address: [address] [place] [address] Performed By: #### 5 7021-8 ####[facility]ITALNCLIA [id number] [place] [address] [place] Monocytes (Bld) [#/Vol] 0.49 10*3/uL Normal <0.87 [facility] Comment on above: Order Comment: Speci men Type: BLOOD SPECIMENOrdering Facility: [facility] Address: [address] [place] [address] Performed By: #### 5 7021-8 ####[facility] CASEYWBRENDALIA [id number] [place] [address] [place] Monocytes/100 WBC (Bld) 5.3 % Normal [facility] Comment on above: Order Comment: Speci men Type: BLOOD SPECIMENOrdering Facility: [facility] Address: [address] [place] [address] Performed By: #### 5 7021-8 ####[facility] [id number] [place] [address] [place] Neutrophils (Bld) [#/Vol] 6.23 10*3/uL Normal 1.45-7.50 [facility] Comment on above: Order Comment: Speci men Type: BLOOD SPECIMENOrdering Facility: [facility] Address: [address] [place] [address] Performed By: #### 5 7021-8 ####[facility] [id number] [place] [address] [place] Neutrophils/100 WBC (Bld) 67.0 % Normal [facility] Comment on above: Order Comment: Speci men Type: BLOOD SPECIMENOrdering Facility: [facility] Address: [address] [place] [address] Performed By: #### 5 7021-8 ####[facility]ITALA [id number] [place] [address] [place] Nucleated RBC (Bld) [#/Vol] 10*3/uL Normal <0.01 [facility] Comment on above: Order Comment: Speci men Type: BLOOD SPECIMENOrdering Facility: [facility] Address: [address] [place] [address] Performed By: #### 5 7021-8 ####[facility]ITALNCLIA [id number] [place] [address] [place] Nucleated RBC/100 WBC (Bld) [Ratio] 0.0 /100 WBC Normal [facility] Comment on above: Order Comment: Speci men Type: BLOOD SPECIMENOrdering Facility: [facility] Address: [address] [place] [address] Performed By: #### 5 7021-8 ####[facility]ITALNCT[facility] [id number] [place] [address] [place] Platelet mean volume (Bld) [Entitic vol] 11.5 fL Normal 9.0-12.7 [facility] Comment on above: Order Comment: Speci men Type: BLOOD SPECIMENOrdering Facility: [facility] Address: [address] [place] [address] Performed By: #### 5 7021-8 ####[facility] [id number] [place] [address] [place] Platelets (Bld) [#/Vol] 176 10*3/uL Normal 150-400 [facility] Comment on above: Order Comment: Speci men Type: BLOOD SPECIMENOrdering Facility: [facility] Address: [address] [place] [address] Performed By: #### 5 7021-8 ####[facility] [id number] [place] [address] [place] RBC (Bld) [#/Vol] 3.84 10*6/uL Low 3.90-5.20 [facility] Comment on above: Order Comment: Speci men Type: BLOOD SPECIMENOrdering Facility: [facility] Address: [address] [place] [address] Performed By: #### 5 7021-8 ####[facility] [id number] [place] [address] [place] WBC (Bld) [#/Vol] 9.30 10*3/uL Normal 3.70-11.00 [facility] Comment on above: Order Comment: Speci men Type: BLOOD SPECIMENOrdering Facility: [facility] Address: [address] [place], [place] [address] Performed By: #### 5 7021-8 ####[facility] [id number] [place] [address] [place] GESTATIONAL GLUCOSE SCREEN, 1-HOUR, 50 GRAM, NON-FASTINGon 04-13-2024 Glucose [Mass/Vol] 119 mg/dL Normal 74-134 [facility] Comment on above: Order Comment: Costa bergeron Type: BLOOD SPECIMEN [facility] Address: [address] [place] [address] Result Comment: [facility] Congress of Obstetricians and Gynecologists (Jamel/Amber) guidelines state a gestational diabetes mellitus positive screen is made, in women not previously diagnosed with overt diabetes, when the 1 hr plasma glucose level is equal to or above 140 mg/dL. The [facility] Order Make Up Clerk and [facility] recommends a 135 mg/dL cutoff. Performed By: #### 5 8410-2 #### [facility] CLIA [id number] [address] [place] [address] [place] Reagin and Treponema pallidu m IgG and IgM [Interp]on 04-13-2024 T. pallidum IgG+IgM IA Ql (S) Non-Reactive Normal Nonreactive [facility] Comment on above: Order Comment: Costa bergeron Type: BLOOD SPECIMEN [facility] Address: [address] [place], [place] [address] Performed By: #### 5 8410-2 #### [facility] CLIA [id number] [address] [place] [address] [place] Reagin+T pallidum IgG+IgM Se rPl-Impon 04-13-2024 Reagin and Treponema pallidum IgG and IgM [Interp] Cannot exclude recent Treponemal infection if specimen collected within 7-10 days after appearance of suspect lesions or 2-3 weeks after an exposure. Clinical correlation is required. Normal [facility] Comment on above: Order Comment: Speci men Type: BLOOD SPECIMEN [facility] Address: [address] [place] [id number] Performed By: #### 5 8410-2 #### [facility] CLIA [id number] [address] [place] [id number] [place] Examination level ultrasound on 03-17-2024 [facility] Radiology Study observation (narrative) Judie easton [facility] CNPNon 02-18-2024 CNPN Telephone (OGFVWE) SHILPA HOANG ([id number]) 1995 F Date Time Provider Department 02/18/24 [facility] During your visit today, we recorded the following information about you: Carla Mckinney RN 02/18/2024 9:53 AM Signed 2nd risk assessment form submitted 02/18/24 Carla Mckinney RN Allergies As of Date: 02/18/2024 Noted Allergy Reaction WALNUT 11/10/2023 10 - Anaphylaxis CORN 11/10/2023 5 - Intolerance SEASONAL ALLERGIES 11/10/2023 3 - Cough Date Reviewed: 02/17/2024 Reviewed by: Margarita Alcala MD - Fully Assessed Reason for Visit: PRAF [4193] Prescriptions as of 02/18/2024 - amoxicillin-clavulanate potassium (AUGMENTIN) 875-125 mg per tablet Take 1 tablet by mouth every 12 hours. - ferrous sulfate 325 mg (65 mg iron) tablet Take 1 tablet by mouth once daily. - folic acid 1 mg tablet Take 1 tablet by mouth once daily. - aspirin, enteric coated (ECOTRIN LOW STRENGTH) 81 mg EC tablet Take 1 tablet by mouth once daily. Problem List As Of Date 02/18/2024 Noted Resolved Encounter for supervision of normal i*11/13/2023 History of IUFD [Z87.59] 11/13/2023 11/13/2023 Endometritis [N71.9] 11/13/2023 History of gestational hypertension [Z87.59] 11/13/2023 History of IUFD [Z87.59] 11/13/2023 History of drug abuse (HCC) [F19.11] 11/13/2023 Encounter Status:Closed by CARLA MCKINNEY on 02/18/24 Normal [facility] Examination level ultrasound on 02-17-2024 Indication Detailed anatomic survey, History of intrauterine demise, Maternal obesity, BMI >30 Impression The patient is referred for a detailed anatomic survey. - Single, live, intrauterine . - biometry is consistent with the established gestational age. - No malformations were visualized on a complete detailed anatomic survey. - The amniotic fluid volume is normal amount. - The placenta is anterior, fundal. - The Transabdominal cervical length measures 42.9 mm with no evidence of funneling or other dynamic changes. - Not all structural malformations can be detected by ultrasound examination. Recommendations Monthly growth ultrasound Maternal Assessment Height 163 cm Height (ft) 5 ft Height (in) 4 in Weight 78 kg Weight (lb) 173 lb BMI 29.70 kg/m Physical Exam Initial weight (lb) 177 lb Initial BMI 30.38 kg/m Method Transabdominal ultrasound examination. View: Adequate visualization Marquez . Number of fetuses: 1 Dating LMP on: 09/28/2023 GA by LMP 20 w + 2 d JANE by LMP: 07/04/2024 Ultrasound examination on: 02/17/2024 GA by U/S based upon: AC, BPD, Femur, HC GA by U/S 20 w + 1 d JANE by U/S: 07/05/2024 Assigned: based on the LMP, selected on 01/01/2024 Assigned GA 20 w + 2 d Assigned JANE: 07/04/2024 General Evaluation Cardiac activity present. FHR 151 bpm. movements: present. Presentation: oblique, breech Placenta: Placental site: anterior, fundal Umbilical cord: Cord vessels: 3 vessel cord, normal insertion. Insertion site: normal insertion Amniotic fluid: Amount of AF: normal amount. MVP 4.4 cm Growth Overview Exam date GA BPD (mm) HC (mm) AC (mm) FL (mm) HL (mm) EFW (g) 02/17/2024 20w 2d 45.5 28% 176 44% 165.3 83% 28.6 14% 28.8 20% 349 49% Biometry Standard BPD 45.5 mm 19w 5d 28% Hadlock OFD 64.2 mm 20w 3d 80% Nicolaides HC 176.0 mm 20w 1d 44% Ed Cerebellum tr 21.5 mm 20w 2d 73% Hill Nuchal fold 3.4 mm AC 165.3 mm 21w 4d 83% Hadlock Femur 28.6 mm 18w 6d 14% Ed Humerus 28.8 mm 19w 2d 20% Ed EFW 349 g 20w 2d 49% Hadlock EFW (lb) 0 lb EFW (oz) 12 oz EFW by: Hadlock (HC-AC-FL) Extended [employer] Installer 5.9 mm CM 2.1 mm <1% Nicolaides Nasal bone 7.0 mm Extremities / Bony Struc FL / HC 0.17 4% Hadlock Other Structures FHR 151 bpm Anatomy Cranium: normal Lateral ventricles: normal Choroid plexus: normal Midline falx: normal Cavum septi pellucidi: normal Cerebellum: normal Cisterna magna: normal Head / Neck Vermis: normal Neck: normal Nuchal fold: normal Lips: normal Profile: normal Nose: normal Face Maxilla: normal Mandible: normal Orbits: normal Lens: normal 4-chamber view: normal RVOT view: normal LVOT view: normal 3-vessel view: normal 1-zkzpge-ljhhcou view: normal Heart / Thorax Situs: situs solitus (normal) Aortic arch view: normal SVC: normal IVC: normal Cardiac axis: normal Rt lung: normal Lt lung: normal Diaphragm: normal Cord insertion: normal Stomach: normal Kidneys: normal Bladder: normal Genitals: normal Abdomen Abdom. wall: normal Cervical spine: normal Thoracic spine: normal Lumbar spine: normal Sacral spine: normal Arms: normal Legs: normal Rt upper arm: normal Rt forearm: normal Rt hand: normal Rt fingers: normal Lt upper arm: normal Lt forearm: normal Lt hand: normal Lt fingers: normal Rt upper leg: normal Rt lower leg: normal Rt foot: normal Lt upper leg: normal Lt lower leg: normal Lt foot: normal sex: male Wants to know sex: yes Maternal Structures Uterus / Cervix Uterus: Visualized Cervix: Visualized Approach: Transabdominal Cervical length 42.9 mm Other: Patient declined transvaginal ultrasound for cervical length. Performed By: Yue Milan RDMS Read By: Tyler [place] M.D. MATERNAL MEDICINE [facility] Radiology Study observation (narrative) [facility] SEQUENTIAL SCN SECOND TRIMon 01-20-2024 AFP [Mass/Vol] 15.5 ng/mL Normal [facility] Comment on above: Order Comment: Speci men Type: BLOOD SPECIMENOrdering Facility: [facility] Address: [address] [place] [address] Performed By: #### S EQ2 ####[facility] LABCLIA [id number] [place] [address] AFP adjusted [MoM] 0.56 Normal [facility] Comment on above: Order Comment: Speci men Type: BLOOD SPECIMENOrdering Facility: [facility] Address: [address] [place] [address] Performed By: #### S EQ2 ####[employer] LABCLIA [id number] [place] [address] [age] Normal [facility] Comment on above: Order Comment: Speci men Type: BLOOD SPECIMENOrdering Facility: [facility] Address: [address] [place] [address] Performed By: #### S EQ2 ####[facility] LABCLIA [id number] [place] [address] Collection date (Specimen) Date: Normal [facility] Comment on above: Order Comment: Speci men Type: BLOOD SPECIMENOrdering Facility: [facility] Address: [address] [place] [address] Result Comment: 12/23 Performed By: #### S EQ2 ####[facility] LABCLIA [id number] [place] [address] E3.unconjugated [Mass/Vol] 0.84 ng/mL Normal [facility] Comment on above: Order Comment: Speci men Type: BLOOD SPECIMENOrdering Facility: [facility] Address: [address] [place] [address] Performed By: #### S EQ2 ####[facility] LABCLIA [id number] [place] [address] E3.unconjugated adjusted [MoM] 0.95 Normal [facility] Comment on above: Order Comment: Speci men Type: BLOOD SPECIMENOrdering Facility: [facility] Address: [address] [place] [address] Performed By: #### S EQ2 ####[facility] LABCLIA [id number] [place] [address] [place] Rump length US 72.3 mm Normal [facility] Comment on above: Order Comment: Speci men Type: BLOOD SPECIMENOrdering Facility: [facility] Address: [address] [place] [address] Performed By: #### S EQ2 ####[facility] LABCLIA [id number] [place] [address] Nuchal fold [Multiple of the median] Thickness US 0.88 Normal [facility] Comment on above: Order Comment: Speci men Type: BLOOD SPECIMENOrdering Facility: [facility] Address: [address] [place] [address] Performed By: #### S EQ2 ####[facility] LABCLIA [id number] [place] [address] Nuchal fold Thickness US 1.4 mm Normal [facility] Comment on above: Order Comment: Speci men Type: BLOOD SPECIMENOrdering Facility: [facility] Address: [address] [place] [address] Performed By: #### S EQ2 ####[facility] LABCLIA [id number] [place] [address] First and Second trimester integrated maternal screen [Interp] Comment Normal [facility] Comment on above: Order Comment: Speci men Type: BLOOD SPECIMENOrdering Facility: [facility] Address: [address] [place] [address] Result Comment: Scre en Negative for Open Spina Bifida. Comment Screen Negative for Down syndrome Comment Screen Negative for Trisomy 18 Performed By: #### S EQ2 ####[facility] LABCLIA [id number] [place] [address] FIRST TRIMESTER SAMPLE Comment Normal [facility] Comment on above: Order Comment: Speci men Type: BLOOD SPECIMENOrdering Facility: [facility] Address: [address] [place] [address] Performed By: #### S EQ2 ####[facility] LABCLIA [id number] [place] [address] Gestational age 15.9 weeks Normal [facility] [facility] Comment on above: Order Comment: Speci men Type: BLOOD SPECIMENOrdering Facility: [facility] Address: [address] [place] [address] Performed By: #### S EQ2 ####[facility] LABCLIA [id number] [place] [address] HCG adjusted [MoM] 1.25 Normal [facility] Comment on above: Order Comment: Speci men Type: BLOOD SPECIMENOrdering Facility: [facility] Address: [address] [place] [address] Performed By: #### S EQ2 ####[facility] LABCLIA [id number] [place] [address] HCG Qn 41.6 IU/mL Normal [facility] Comment on above: Order Comment: Speci men Type: BLOOD SPECIMENOrdering Facility: [facility] Address: [address] [place] [address] Performed By: #### S EQ2 ####[facility] LABCLIA [id number] [place] [address] Inhibin A [Mass/Vol] 114.6 pg/mL Normal [facility] Comment on above: Order Comment: Speci men Type: BLOOD SPECIMENOrdering Facility: [facility] Address: [address] [place] [address] Performed By: #### S EQ2 ####[facility] LABCLIA [id number] [place] [address] Inhibin A adjusted [MoM] 0.81 Normal [facility] Comment on above: Order Comment: Speci men Type: BLOOD SPECIMENOrdering Facility: [facility] Address: [address] [place] [address] Performed By: #### S EQ2 ####[facility] LABCLIA [id number] [place] [address] Insulin dependent diabetes mellitus Ql No Normal [facility] Comment on above: Order Comment: Speci men Type: BLOOD SPECIMENOrdering Facility: [facility] Address: [address] [place] [address] Performed By: #### S EQ2 ####[facility] LABCLIA [id number] [place] [address] Laboratory comment Jose (Report) Comment Normal [facility] Comment on above: Order Comment: Speci men Type: BLOOD SPECIMENOrdering Facility: [facility] Address: [address] [place] [address] Result Comment: The [place] [employer] recommends that all women be counseled regarding the differences between screening and invasive diagnostic testing. Performed By: #### S EQ2 ####[facility] LABCLIA [id number] [place] [address] Mother's race Normal [facility] Comment on above: Order Comment: Speci men Type: BLOOD SPECIMENOrdering Facility: [facility] Address: [address] [place] [address] Performed By: #### S EQ2 ####[facility] LABCLIA [id number] [place] [address] Neural tube defect risk Qn (fetus) Screening Risk: Normal [facility] Comment on above: Order Comment: Speci men Type: BLOOD SPECIMENOrdering Facility: [facility] Address: [address] [place] [address] Result Comment: <1 [place] [id number] Performed By: #### S EQ2 ####[facility] LABCLIA [id number] [place] [address] NOTE: Comment Normal [facility] Comment on above: Order Comment: Speci men Type: BLOOD SPECIMENOrdering Facility: [facility] Address: [address] [place] [address] Result Comment: Raj redman verify all clinical data used in this risk assessment and call [phone] with any corrections. Betzy Nuñez, Ph.D., [facility] Director References: Available upon request Open Spina Bifida (OSB) MoM Cutoffs Marquez 2.5 Black 2.8 IDD 2.0 Twins 4.5 Risk Cutoffs Down Syndrome (DS) cutoff 1:270 Trisomy 18 (T18) cutoff 1:100 For further inquiries contact [employer] Customer Service at [phone]. This test was developed and its performance characteristics determined by [employer]. It has not been cleared or approved by the Food and Drug Administration. Performed By: #### S EQ2 ####[facility] LABCLIA [id number] [place] [address] Number of fetuses by US 1 Normal [facility] Comment on above: Order Comment: Speci men Type: BLOOD SPECIMENOrdering Facility: [facility] Address: [address] [place] [address] Performed By: #### S EQ2 ####[employer] LABCLIA [id number] [place] [address] associated plasma protein A [Mass/Vol] 396.8 ng/mL Normal [facility] Comment on above: Order Comment: Speci men Type: BLOOD SPECIMENOrdering Facility: [facility] Address: [address] [place] [address] Performed By: #### S EQ2 ####[facility] LABCLIA [id number] [place] [address] associated plasma protein A adjusted [MoM] 0.38 Normal [facility] Comment on above: Order Comment: Speci men Type: BLOOD SPECIMENOrdering Facility: [facility] Address: [address] [place] [address] Performed By: #### S EQ2 ####[facility] LABCLIA [id number] [place] [address] RESULTS Report Normal [facility] Comment on above: Order Comment: Speci men Type: BLOOD SPECIMENOrdering Facility: [facility] Address: [address] [place] [address] Performed By: #### S EQ2 ####[facility] LABCLIA [id number] [place] [address] SECOND TRIMESTER SAMPLE Comment Normal [facility] Comment on above: Order Comment: Speci men Type: BLOOD SPECIMENOrdering Facility: [facility] Address: [address] [place] [address] Performed By: #### S EQ2 ####[facility] LABCLIA [id number] [place] [address] [employer] [Identifier] [id number] Normal [facility] Comment on above: Order Comment: Speci men Type: BLOOD SPECIMENOrdering Facility: [facility] Address: [address] [place] [address] Performed By: #### S EQ2 ####[facility] LABCLIA [id number] [place] [address] Trisomy 18 risk Based on maternal age Qn (fetus) Age Risk: Normal [facility] Comment on above: Order Comment: Speci men Type: BLOOD SPECIMENOrdering Facility: [facility] Address: [address] [place] [address] Result Comment: [id number] Performed By: #### S EQ2 ####[facility] LABCLIA [id number] [place] [address] Trisomy 18 risk Qn (fetus) Screening Risk: Normal [facility] Comment on above: Order Comment: Speci men Type: BLOOD SPECIMENOrdering Facility: [facility] Address: [address] [place] [address] Result Comment: <1 i n [id number] Performed By: #### S EQ2 ####[facility] LABCLIA [id number] [place] [address] Trisomy 21 risk Based on maternal age Qn (fetus) Age Risk: Normal [facility] Comment on above: Order Comment: Speci men Type: BLOOD SPECIMENOrdering Facility: [facility] Address: [address] [place] [address] Result Comment: 1 in 8 Performed By: #### S EQ2 ####[facility] LABCLIA [id number] [place] [address] Trisomy 21 risk Qn (fetus) Screening Risk: Normal [facility] Comment on above: Order Comment: Speci men Type: BLOOD SPECIMENOrdering Facility: [facility] Address: [address] [place] [address] Result Comment: 1 in 3800 Performed By: #### S EQ2 ####[facility] LABCLIA [id number] [place] [address] Ultrasound date Date: Normal [facility] Comment on above: Order Comment: Speci men Type: BLOOD SPECIMENOrdering Facility: [facility] Address: [address] [place] [address] Result Comment: 12/21 Performed By: #### S EQ2 ####[facility] LABCLIA [id number] [place] [address] Urine Cultureon 01-07-2024 URC Mixed Gram Positive Organisms [place] Count 1000-10,000 MIXC Mixed contaminants. Submit a new specimen if indicated. Normal [facility] Comment on above: Performed By: #### L 100.0100, L500.4050, L700.8000 #### [facility] [address] [place], [address] CBC W/Diff, Automatedon 12-21 Absolute Lymph 1.70 X10 3/uL Normal 0.83-4.51 [facility] Comment on above: Performed By: #### L 100.0100, L500.4050, L700.8000 #### [facility] [address] [place], [address] Absolute Neut 4.4 X10 3/uL Normal 2.0-7.7 [facility] Comment on above: Performed By: #### L 100.0100, L500.4050, L700.8000 #### [facility] [address] [place], [address] Basophils/100 WBC (Bld) 0.1 % Normal 0-1 [facility] Comment on above: Performed By: #### L 100.0100, L500.4050, L700.8000 #### [facility] [address] [place], [address] Eosinophils/100 WBC (Bld) 2.8 % Normal 0-5 [facility] Comment on above: Performed By: #### L 100.0100, L500.4050, L700.8000 #### [facility] [address] [place], [address] Erythrocyte distribution width (RBC) [Ratio] 13.7 % Normal 11.6-14.6 [facility] Comment on above: Performed By: #### L 100.0100, L500.4050, L700.8000 #### [facility] [address] [place], [address] Hematocrit (Bld) [Volume fraction] 34.6 % Low 37-47 [facility] Comment on above: Performed By: #### L 100.0100, L500.4050, L700.8000 #### [facility] [address] [place], [address] Hemoglobin (Bld) [Mass/Vol] 11.3 g/dL Low 12.0-15.0 [facility] Comment on above: Performed By: #### L 100.0100, L500.4050, L700.8000 #### [facility] [address] [place], [address] IG% 0.400 Normal 0.0-0.9 [facility] Comment on above: Result Comment: IG% - Immature Granulocytes (promyelocytes, myelocytes and metamyelocytes) > 1% indicates that a LEFT SHIFT is Present. Performed By: #### L 100.0100, L500.4050, L700.8000 #### [facility] [address] [place], [address] Lymphocytes/100 WBC (Bld) 25.4 % Normal 19-41 [facility] Comment on above: Performed By: #### L 100.0100, L500.4050, L700.8000 #### [facility] [address] [facility] [place], [address] MCH (RBC) [Entitic mass] 27.6 pg Normal 27.0-32.0 [facility] Comment on above: Performed By: #### L 100.0100, L500.4050, L700.8000 #### [facility] [address] [facility] [place], [address] MCHC (RBC) [Mass/Vol] 32.7 g/dL Normal 32-36 [facility] Comment on above: Performed By: #### L 100.0100, L500.4050, L700.8000 #### [facility] [address] [facility] [place], [address] MCV (RBC) [Entitic vol] 84.4 fL Normal 81-99 [facility] Comment on above: Performed By: #### L 100.0100, L500.4050, L700.8000 #### [facility] [address] [place], [address] Monocytes/100 WBC (Bld) 5.8 % Normal 0-10 [facility] Comment on above: Performed By: #### L 100.0100, L500.4050, L700.8000 #### [facility] [address] [place], [address] Neutrophils/100 WBC (Bld) 65.5 % Normal 47-70 [facility] Comment on above: Performed By: #### L 100.0100, L500.4050, L700.8000 #### [facility] [address] [place], [address] Nucleated RBC (Bld) [#/Vol] 0 10*3/uL Normal 0-5 [facility] Comment on above: Performed By: #### L 100.0100, L500.4050, L700.8000 #### [facility] [address] [place], [address] Platelet mean volume (Bld) [Entitic vol] 11.4 fL Normal 6.2-12.0 [facility] Comment on above: Performed By: #### L 100.0100, L500.4050, L700.8000 #### [facility] [address] [place], [address] Platelets (Bld) [#/Vol] 177 10*3/uL Normal 150-450 [facility] Comment on above: Performed By: #### L 100.0100, L500.4050, L700.8000 #### [facility] [address] [place], [address] RBC (Bld) [#/Vol] 4.10 10*6/uL Low 4.2-5.4 [facility] Comment on above: Performed By: #### L 100.0100, L500.4050, L700.8000 #### [facility] [address] [place], [address] RDW SD 42.1 fl Normal 35.1-43.9 [facility] Comment on above: Performed By: #### L 100.0100, L500.4050, L700.8000 #### [facility] [address] [place], [address] WBC (Bld) [#/Vol] 6.7 10*3/uL Normal 4.4-11.0 [facility] Comment on above: Performed By: #### L 100.0100, L500.4050, L700.8000 #### [facility] [address] [place], [address] Comprehensive Metabolic Prof [facility] 01-06-2024 Albumin [Mass/Vol] 2.9 g/dL Low 3.2-5.0 [facility] Comment on above: Performed By: #### L 100.0100, L500.4050, L700.8000 #### [facility] [address] [place], [address] Albumin/Globulin [Mass ratio] 0.8 {ratio} Low 0.9-2.4 [facility] Comment on above: Performed By: #### L 100.0100, L500.4050, L700.8000 #### [facility] [address] [place], [address] ALK P 82 U/L Normal 45-117 [facility] Comment on above: Performed By: #### L 100.0100, L500.4050, L700.8000 #### [facility] [address] [place], [address] ALT [Catalytic activity/Vol] 27 U/L Normal 13-56 [facility] Comment on above: Performed By: #### L 100.0100, L500.4050, L700.8000 #### [facility] [address] [place], [address] AST [Catalytic activity/Vol] 18 U/L Normal 15-37 [facility] Comment on above: Performed By: #### L 100.0100, L500.4050, L700.8000 #### [facility] [address] [place], [address] Bilirubin [Mass/Vol] 0.20 mg/dL Normal 0.20-1.00 [facility] Comment on above: Result Comment: For patients on eltrombopag therapy, use of Dimension [place] TBIL is not recommended. Performed By: #### L 100.0100, L500.4050, L700.8000 #### [facility] [address] [place], [address] BUN/CRE 17.3 RATIO Normal 10-20 [facility] Comment on above: Performed By: #### L 100.0100, L500.4050, L700.8000 #### [facility] [address] [place], [address] CA,Total 8.5 mg/dL Normal 8.5-10.1 [facility] Comment on above: Performed By: #### L 100.0100, L500.4050, L700.8000 #### [facility] [address] [place], [address] Chloride [Moles/Vol] 107 mmol/L Normal 98-107 [facility] Comment on above: Performed By: #### L 100.0100, L500.4050, L700.8000 #### [facility] [address] [place], [address] CO2 [Moles/Vol] 24.0 mmol/L Normal 21.0-32.0 [facility] Comment on above: Performed By: #### L 100.0100, L500.4050, L700.8000 #### [facility] [address] [place], [address] Creatinine [Mass/Vol] 0.58 mg/dL Normal 0.55-1.02 [facility] Comment on above: Result Comment: The validity of the calculated GFR GFRAA in patients over 70 years has not been determined. Clinical correlation is essential. Performed By: #### L 100.0100, L500.4050, L700.8000 #### [facility] [address] [place], [address] ECRCL 148.39 ml/min Normal [facility] Comment on above: Performed By: #### L 100.0100, L500.4050, L700.8000 #### [facility] [address] [place], [address] EST GFR - AA 161 mL/min Normal >60 [facility] Comment on above: Result Comment: Afri can [place] GFR Calc Performed By: #### L 100.0100, L500.4050, L700.8000 #### [facility] [address] [place], [address] GAP 6 Normal 5-15 [facility] Comment on above: Performed By: #### L 100.0100, L500.4050, L700.8000 #### [facility] [address] [place], [address] GFR/1.73 sq M.predicted among non-blacks MDRD (S/P/Bld) [Vol rate/Area] 133 mL/min/{1.73_m2} Normal >60 [facility] Comment on above: Result Comment: Non- GFR Calc Performed By: #### L 100.0100, L500.4050, L700.8000 #### [facility] [address] [place], [address] Globulin (S) [Mass/Vol] 3.6 g/dL Normal 2.2-4.2 [facility] Comment on above: Performed By: #### L 100.0100, L500.4050, L700.8000 #### [facility] [address] [place], [address] Glucose [Mass/Vol] 96 mg/dL Normal 74-106 [facility] Comment on above: Performed By: #### L 100.0100, L500.4050, L700.8000 #### [facility] [address] [place], [address] Potassium [Moles/Vol] 3.6 mmol/L Normal 3.5-5.1 [facility] Comment on above: Performed By: #### L 100.0100, L500.4050, L700.8000 #### [facility] [address] [place], [address] Sodium [Moles/Vol] 137 mmol/L Normal 136-145 [facility] Comment on above: Performed By: #### L 100.0100, L500.4050, L700.8000 #### [facility] [address] [place], [address] T PROT 6.5 g/dL Normal 6.4-8.2 [facility] Comment on above: Performed By: #### L 100.0100, L500.4050, L700.8000 #### [facility] [address] [place], [address] Urea nitrogen [Mass/Vol] 10 mg/dL Normal 7-18 [facility] Comment on above: Performed By: #### L 100.0100, L500.4050, L700.8000 #### [facility] [address] [place], [address] Emergency Department Summary on 01-06-2024 Emergency Department Summary [facility] Medical Records Department [address] [place] [address] Emergency Department Summary 01/06/24 MR#: [id number] Acct: [id number] Name: SHILPA HOANG Rep #: [id number] : 1995 28 From: David Felix DO PCP: Dr. David Mckinney MD Status:DEP ER Location: ED HPI HPI - GI History of Present Illness Chief Complaint: Nausea/Vomiting Informant: patient Nausea/Vomiting/Emesis GI Symptom: Positive for Nausea; Negative for Vomiting Onset: Days Diarrhea/Melena/Hematoc hezia GI Symptom: Negative for Diarrhea, Melena or Hematochezia Associated Symptoms Associated Symptoms: Negative for Dysuria, Frequency or Hematuria Narrative Narrative: Patient presents with nausea, lightheadedness, dizziness, and polydipsia that has been getting worse over the past few days. Patient states it is gradually getting worse. Patient states he has been drinking lots of water but always feels thirsty. Patient is approximately 14 weeks . Patient denies any complications with the . Patient states she still feels the baby moving. Patient denies any vaginal bleeding or discharge. Patient denies any vomiting. Patient denies any diarrhea, melena, or hematochezia. Patient denies any dysuria, frequency, or hematuria. Patient states her lightheadedness and dizziness is worse with standing. Patient states she was at work today and felt like she was going to pass out. [facility] Medical History History of placental abruption Trauma depression Anxiety Cervical myofascial strain (spontaneous vaginal delivery) Home Medications ???Medication ???Instructions ???Recorded ???Last Taken ???Type hfnwqhjo-gfk-Iy-FA 1 mg 1 tab PO DAILY 09/13/21 02/17/22 09:00 History tablet ferrous sulfate 325 mg (65 mg 325 mg PO DAILY 02/17/22 02/14/22 21:00 History iron) tablet (Iron (ferrous sulfate)) naproxen 500 mg tablet (Naprosyn) 500 mg PO BID PRN pain #20 tabs 01/08/23 Unknown Rx montelukast 10 mg tablet 10 mg PO DAILY 08/10/23 Unknown History ondansetron 4 mg disintegrating 4 mg PO Q8H PRN PRN Nausea #10 tabs 08/10/23 Unknown Rx tablet sertraline 100 mg tablet 100 mg PO Q24H 08/10/23 Unknown History venlafaxine 37.5 mg 37.5 mg PO DAILY 08/10/23 Unknown History capsule,extended release 24 hr Allergy/AdvReac Type Severity Reaction Status Date / Time No Known Allergies Allergy Verified 01/06/24 10:06 Surgical History no surgical history no surgical history Social History number of children: 2 Smoking Status: Current every day smoker tobacco type: cigarettes alcohol intake: former 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 ROS ROS ED Constitutional Constitutional ED: Denies chills or fever(s) ENT ENT ED: Denies rhinorrhea or sore throat Cardiovascular Cardiovascular: Denies chest pain or palpitations Respiratory/Chest Respiratory/Chest: Reports cough; Denies dyspnea Gastrointestinal Gastrointestinal: Reports nausea; Denies abdominal pain, diarrhea or vomiting Genitourinary Genitourinary ED: Denies dysuria, hematuria or urinary frequency Musculoskeletal Musculoskeletal: Denies back pain or neck pain Integumentary Denies abscess or rash Neurologic Neurologic: Denies headache(s) or weakness Endocrine Endocrinology: Reports polydipsia Allergic/Immunologic Allergic/Immunologic ED: Denies mouth swelling or urticaria EXAM Physical Exam Const Vital Signs: 01/06/24 10:07 Temperature 97.1 F L Temperature Source Temporal Pulse Rate 95 Respiratory Rate 16 Blood Pressure 133/87 H Blood Pressure Mean 102 Pulse Ox 97 Oxygen Delivery Method Room Air Positive well nourished and well developed General Appearance ED: well developed and NAD HEENT Reports moist mucous membranes Neck supple and no JVD Resp normal respiratory effort and clear to auscultation bilaterally Cardio regular rate and regular rhythm GI non-tender and non-distended Palpation: soft Extremity full ROM Neuro CN's II-XII intact bilaterally, moves all extremities and no sensory deficits noted Sensorium / Orientation: alert Motor Exam: strength 5/5 throughout Psych mental status grossly normal Skin no wounds MDM MDM MDM Narrative Medical decision making narrative: Differential diagnosis includes gestational diabetes, new onset diabetes, urinary tract infection, electrolyte abnormality, and gastritis. CBC will be obtained to assess for leukocytosis and anemia. Comprehensive metabolic profile will be obtained to assess for electrolyte abnormality, hepatic function, and renal function. Quantitative hC (more content not included)... Normal [facility] Urinalysis, Completeon 01-05 BACTERIA 2+ /hpf Normal None Seen [facility] Comment on above: Order Comment: COLLE CTOR TO SPECIFY Performed By: #### L 400.0001 #### [facility] [address] [place], [address] EPI,SQUAMOUS 10-25 SEEN Normal 5-10 [facility] Comment on above: Order Comment: ANTONIA CTOR TO SPECIFY Performed By: #### L 400.0001 #### [facility] [address] [place], [address] Mucus Ql (Urine sed) 2+ /hpf Normal [facility] Comment on above: Order Comment: ANTONIA CTOR TO SPECIFY Performed By: #### L 400.0001 #### [facility] [address] [place], [address] WBC 5-10 SEEN Normal 0-5 [facility] Comment on above: Order Comment: ANTONIA CTOR TO SPECIFY Performed By: #### L 400.0001 #### [facility] [address] [place], [address] RBC 0 SEEN Normal 0-5 [facility] Comment on above: Order Comment: ANTONIA CTOR TO SPECIFY Performed By: #### L 400.0001 #### [facility] [address] [place], [address] hCG Titer Quant., Serumon HCG QUANT. 42532 mIU/mL High 1-3 [facility] Comment on above: Result Comment: hCG levels with Gestational Age Gestational Age hCG mIU/mL (IU/L) 0.2 - 1 week 5 - 50 1-2 weeks 50 - 500 2-3 weeks 100 - 5000 3-4 weeks 500 - 91623 4-5 weeks 1000 - 59046 5-6 weeks 49419 - 100,000 6-8 weeks 52070 - 200,000 2-3 months 80153 - 100,000 Performed By: #### L 100.0100, L500.4050, L700.8000 #### [facility] [address] [place], [address] CBC panel Auto (Bld)on 12-31 Erythrocyte distribution width (RBC) [Ratio] 14.2 % 11.5 - 15.0 % [facility] Hematocrit (Bld) [Volume fraction] 37.5 % 36.0 - 46.0 % [facility] Hemoglobin (Bld) [Mass/Vol] 12.4 g/dL 11.5 - 15.5 g/dL [facility] Interpretation and review of laboratory results Normal [facility] MCH (RBC) [Entitic mass] 28.1 pg 26.0 - 34.0 pg [facility] MCHC (RBC) [Mass/Vol] 33.1 g/dL 30.5 - 36.0 g/dL [facility] MCV (RBC) [Entitic vol] 85.0 fL 80.0 - 100.0 fL [facility] Nucleated RBC (Bld) [#/Vol] NINF [facility] Platelet mean volume (Bld) [Entitic vol] 12.1 fL 9.0 - 12.7 fL [facility] Platelets (Bld) [#/Vol] 181 10*3/uL [facility] RBC (Bld) [#/Vol] 4.41 10*6/uL 3.90 - 5.2 0 m/uL [facility] WBC (Bld) [#/Vol] 9.21 10*3/uL [facility] Erythrocyte distribution width (RBC) [Ratio] 14.2 % Normal 11.5-15.0 [facility] Comment on above: Order Comment: Speci men Type: BLOOD SPECIMEN Ordering Facility: [facility] Address: [address] [place] [address] Performed By: #### 5 8410-2 #### [facility] [id number] [address] [place] [address] STATES OF [facility] Hematocrit (Bld) [Volume fraction] 37.5 % Normal 36.0-46.0 [facility] Comment on above: Order Comment: Speci men Type: BLOOD SPECIMEN Ordering Facility: [facility] Address: [address] [place] [address] Performed By: #### 5 8410-2 #### [facility] [id number] [address] [place] [address] [place] Hemoglobin (Bld) [Mass/Vol] 12.4 g/dL Normal 11.5-15.5 [facility] Comment on above: Order Comment: Speci men Type: BLOOD SPECIMEN Ordering Facility: [facility] Address: [address] [place] [address] Performed By: #### 5 8410-2 #### [facility] CLIA [id number] [address] [place] [address] [place] MCH (RBC) [Entitic mass] 28.1 pg Normal 26.0-34.0 [facility] Comment on above: Order Comment: Speci men Type: BLOOD SPECIMEN Ordering Facility: [facility] Address: [address] [place] [address] Performed By: #### 5 8410-2 #### [facility] CLIA [id number] [address] [place] [address] [place] MCHC (RBC) [Mass/Vol] 33.1 g/dL Normal 30.5-36.0 [facility] Comment on above: Order Comment: Speci men Type: BLOOD SPECIMEN Ordering Facility: [facility] Address: [address] [place] [address] Performed By: #### 5 8410-2 #### [facility] CLIA [id number] [address] [place] [address] [place] MCV (RBC) [Entitic vol] 85.0 fL Normal 80.0-100.0 [facility] Comment on above: Order Comment: Speci men Type: BLOOD SPECIMEN Ordering Facility: [facility] Address: [address] [place] [address] Performed By: #### 5 8410-2 #### [facility] CLIA [id number] [address] [place] [address] [place] Nucleated RBC (Bld) [#/Vol] 10*3/uL Normal <0.01 [facility] Comment on above: Order Comment: Speci men Type: BLOOD SPECIMEN Ordering Facility: [facility] Address: [address] [place] [address] Performed By: #### 5 8410-2 #### [facility] CLIA [id number] [address] [place] [address] [place] Platelet mean volume (Bld) [Entitic vol] 12.1 fL Normal 9.0-12.7 [facility] Comment on above: Order Comment: Speci men Type: BLOOD SPECIMEN Ordering Facility: [facility] Address: [address] [place] [address] Performed By: #### 5 8410-2 #### [facility] CLIA [id number] [address] [place] [address] [place] Platelets (Bld) [#/Vol] 181 10*3/uL Normal 150-400 [facility] Comment on above: Order Comment: Speci men Type: BLOOD SPECIMEN Ordering Facility: [facility] Address: [address] [place] [address] Performed By: #### 5 8410-2 #### [facility] CLIA [id number] [address] [place] [address] [place] RBC (Bld) [#/Vol] 4.41 10*6/uL Normal 3.90-5.20 [facility] Comment on above: Order Comment: Speci men Type: BLOOD SPECIMEN Ordering Facility: [facility] Address: [address] [place], [place] [address] Performed By: #### 5 8410-2 #### [facility] CLIA [id number] [address] [place] [address] [place] WBC (Bld) [#/Vol] 9.21 10*3/uL Normal 3.70-11.00 [facility] Comment on above: Order Comment: Speci men Type: BLOOD SPECIMEN Ordering Facility: [facility] Address: [address] [place] [address] Performed By: #### 5 8410-2 #### [facility] CLIA [id number] [address] [place] [address] [place] nuchal translucency me asured by Abdi 01-01-2024 Indication First trimester anatomic survey IUFD 26 weeks, Obesity, BMI >30 Impression REMOTE READ The patient is referred for a first trimester anatomy scan including nuchal translucency measurement as clinically indicated. - Single, live, intrauterine . - [place] rump length measurement is consistent with the established gestational age. - A qualitative screen of the nuchal translucency and other anatomic structures were unremarkable on a complete first trimester anatomic assessment. - Not all structural malformations can be detected by ultrasound examination. Maternal Structures: Right Ovary: Size 21 mm x 19 mm x 14 mm Left Ovary: Size 33 mm x 27 mm x 17 mm Recommendations - A standard anatomic survey at 16 weeks and a detailed exam at 20 weeks is recommended for increased risk. Maternal Assessment Height 163 cm Height (ft) 5 ft Height (in) 4 in Physical Exam Initial weight (lb) 177 lb Initial BMI 30.38 kg/m Maternal assessment other: 5 Para 3 Method Transabdominal ultrasound examination Marquez . Number of fetuses: 1 Dating LMP on: 09/28/2023 GA by LMP 13 w + 4 d JANE by LMP: 07/04/2024 Ultrasound examination on: 01/01/2024 GA by U/S based upon: CRL GA by U/S 13 w + 3 d JANE by U/S: 07/05/2024 Assigned: based on the LMP, selected on 01/01/2024 Assigned GA 13 w + 4 d Assigned JANE: 07/04/2024 General Evaluation Cardiac activity present Placenta: anterior Cord vessels: 3 vessel cord Amniotic fluid: normal amount Biometry Standard FHR 160 bpm CRL 72.3 mm 13w 3d 36% Hadlock NT 1.40 mm First Trimester Anatomy Calvarium: normal Falx cerebri: normal Choroid plexus: normal Profile: normal Nasal bone: normal Retronasal triangle: normal Maxilla: normal Mandible: normal Nuchal translucency: Subjectively normal Situs: normal Cardiac position: normal Cardiac axis: normal 4-chamber view: normal 4-chamber view with color: normal 4-yuacza-tosynkk view: normal Abdominal cord insertion: normal Stomach: normal Kidneys: normal Bladder: normal Color doppler of perivesical umbilical arteries: normal Vertebral alignment: normal Arms: normal Hands: normal Legs: normal Feet: normal Maternal Structures Uterus / Cervix Uterus: Visualized Uterus length 138 mm Uterus width 94 mm Uterus height 72 mm Uterus Vol 486.8 cm Ovaries / Tubes / Adnexa Rt ovary: Visualized Rt ovary D1 21 mm Rt ovary D2 19 mm Rt ovary D3 14 mm Rt ovary Vol 2.9 cm Lt ovary: Visualized Lt ovary D1 33 mm Lt ovary D2 27 mm Lt ovary D3 17 mm Lt ovary Vol 7.6 cm Performed By: Khushboo Easley, THEODORE, RVT Read By: Tyler [place] M.D. MATERNAL MEDICINE [facility] Radiology Study observation (narrative) [facility] HBV surface Ag Ser Qlon 12-21 HBV surface Ag Ql (S) Negative Normal Negative [facility] Comment on above: Order Comment: Speci men Type: BLOOD SPECIMENOrdering Facility: [facility] Address: [address] [place] [address] Performed By: #### 5 195-3, 73882-6, 70565-3 ####[facility] [id number] [place] [address] [place] HCV Ab Ser Qlon 01-01-2024 HCV Ab Ql (S) Negative Normal Negative [facility] Comment on above: Order Comment: Speci men Type: BLOOD SPECIMENOrdering Facility: [facility] Address: [address] [place] [address] Result Comment: The result suggests no evidence of active infection with Hepatitis C virus. Should recent infection be suspected, repeat testing may be considered 4-6 weeks after this draw. Performed By: #### 1 6128-1 ####[facility] [id number] [place] [address] [place] HIV 1+2 Ab IA Qlon HIV 1 and 2 Ab IA.rapid Nom (S/P/Bld) Normal [facility] Comment on above: Order Comment: Speci men Type: BLOOD SPECIMENOrdering Facility: [facility] Address: [address] [place] [address] Result Comment: Test not indicated. Performed By: #### 5 195-3, 14267-2, 19841-8 ####[facility] [id number] [place] [address] [place] HIV 1+2 Ab+HIV1 p24 Ag IA Ql Non-Reactive Normal Nonreactive [facility] Comment on above: Order Comment: Speci men Type: BLOOD SPECIMENOrdering Facility: [facility] Address: [address] [place] [address] Performed By: #### 5 195-3, 12833-7, 66822-0 ####[facility] [id number] [place] [address] [place] HIV immunoassay testing algorithm interpretation (S/P/Bld) [Interp] Normal [facility] Comment on above: Order Comment: Speci men Type: BLOOD SPECIMENOrdering Facility: [facility] Address: [address] [place] [address] Result Comment: No e vidence of HIV-1 or HIV-2 infection. Should recent infection be suspected, repeat testing may be considered 2-3 weeks after this draw. [place] Rev. Code 3701.243(E): This information has been disclosed to you from confidential records protected from disclosure by state law. ???You shall make no further disclosure of this information without the specific, written, and informed release of the individual to whom it pertains or as otherwise permitted by state law. A general authorization for the release of medical or other information is not sufficient for the purpose of the release of HIV test results or diagnoses. Performed By: #### 5 195-3, 83292-5, 80056-7 ####[facility] LABIA [id number] [place] [address] [place] HbA1c (Bld)on 01-01-2024 Average glucose Estimated from glycated hemoglobin (Bld) [Mass/Vol] 82 mg/dL Normal [facility] Comment on above: Order Comment: Speci men Type: BLOOD SPECIMENOrdering Facility: [facility] Address: [address] [place] [address] Result Comment: eAG: (Estimated average glucose) is a calculated value from HgbA1c and is automotive leasing sales representative of the average blood glucose level in the last 2-3 month period. Performed By: #### 5 5454-3 ####[facility] LABCLIA [id number] [place] [address] [place] HbA1c (Bld) [Mass fraction] 4.5 % Normal 4.3-5.6 [facility] Comment on above: Order Comment: Speci men Type: BLOOD SPECIMENOrdering Facility: [facility] Address: [address] [place] [address] Result Comment: Amer [place] Diabetes Association guidelines indicate that patients with HgbA1c in the range 5.7-6.4% are at increased risk for development of diabetes, and intervention by lifestyle modification may be beneficial. HgbA1c greater or equal to 6.5% is considered diagnostic of diabetes. Performed By: #### 5 5454-3 ####[facility] LABCLIA [id number] [place] [address] [place] RUBELLA IGG ANTIBODYon 12-31 RUBELLA IGG AB, QUAL Positive Normal Positive [facility] Comment on above: Order Comment: Gingeri elyssa Type: BLOOD SPECIMEN [facility] Facility: [facility] Address: [address] [place] [address] Result Comment: The result suggests recent or past exposure to Rubella virus or history of Rubella vaccination. Positive result may also be seen due to presence of passively-transferred antibodies. Please correlate with patient's history. Performed By: #### 5 8410-2 #### [facility] CLIA [id number] [address] [place] [address] [place] Reagin and Treponema pallidu m IgG and IgM [Interp]on 01-01-2024 T. pallidum IgG+IgM IA Ql (S) Non-Reactive Normal Nonreactive [facility] Comment on above: Order Comment: Speci men Type: BLOOD SPECIMENOrdering Facility: [facility] Address: [address] [place] [address] Performed By: #### 5 195-3, 16980-2, 96547-4 ####[facility] LABCLIA [id number] [place] [address] [place] Reagin+T pallidum IgG+IgM Se rPl-Impon 01-01-2024 Reagin and Treponema pallidum IgG and IgM [Interp] Cannot exclude recent Treponemal infection if specimen collected within 7-10 days after appearance of suspect lesions or 2-3 weeks after an exposure. Clinical correlation is required. Normal [facility] Comment on above: Order Comment: Speci men Type: BLOOD SPECIMENOrdering Facility: [facility] Address: [address] [place] [address] Performed By: #### 5 195-3, 42554-8, 74815-9 ####[facility] LABCLIA [id number] [place] [address] [place] SEQUENTIAL SCN FIRST TRIMEST Zac 01-01-2024 Age at delivery 28.5 yr Normal [facility] Comment on above: Order Comment: Speci men Type: BLOOD SPECIMENOrdering Facility: [facility] Address: [address] [place] [address] Performed By: #### S EQ1 ####[facility] LABCLIA [id number] [place] [address] [place] Rump length US 72.3 mm Normal [facility] Comment on above: Order Comment: Speci men Type: BLOOD SPECIMENOrdering Facility: [facility] Address: [address] [place] [address] Performed By: #### S EQ1 ####[facility] LABCLIA [id number] [place] [address] Nuchal fold [Multiple of the median] Thickness US 0.88 Normal [facility] Comment on above: Order Comment: Speci men Type: BLOOD SPECIMENOrdering Facility: [facility] Address: [address] [place] [address] Performed By: #### S EQ1 ####[facility] LABCLIA [id number] [place] [address] Nuchal fold Thickness US 1.4 mm Normal [facility] Comment on above: Order Comment: Speci men Type: BLOOD SPECIMENOrdering Facility: [facility] Address: [address] [place] [address] Performed By: #### S EQ1 ####[facility] LABCLIA [id number] [place] [address] First and Second trimester integrated maternal screen [Interp] Comment Normal [facility] Comment on above: Order Comment: Speci men Type: BLOOD SPECIMENOrdering Facility: [facility] Address: [address] [place] [address] Result Comment: The risk for Down syndrome is less than the 1:45 cutoff. Comment The risk for trisomy 18 is less than the 1:100 cutoff. Performed By: #### S EQ1 ####[facility] LABCLIA [id number] [place] [address] Gestational age 13.1 weeks Normal [facility] Comment on above: Order Comment: Speci men Type: BLOOD SPECIMENOrdering Facility: [facility] Address: [address] [place] [address] Performed By: #### S EQ1 ####[facility] LABCLIA [id number] [place] [address] HCG adjusted [MoM] 0.81 Normal [facility] Comment on above: Order Comment: Speci men Type: BLOOD SPECIMENOrdering Facility: [facility] Address: [address] [place] [address] Performed By: #### S EQ1 ####[facility] LABCLIA [id number] [place] [address] HCG Qn 59.5 IU/mL Normal [facility] Comment on above: Order Comment: Speci men Type: BLOOD SPECIMENOrdering Facility: [facility] Address: [address] [place] [address] Performed By: #### S EQ1 ####[facility] LABCLIA [id number] [place] [address] Laboratory comment Jose (Report) Comment Normal [facility] Comment on above: Order Comment: Speci men Type: BLOOD SPECIMENOrdering Facility: [facility] Address: [address] [place] [address] Result Comment: Raj redman submit a second trimester sample between 15.0 - 21.9 weeks gestation to complete risk assessment for Down syndrome, trisomy 18 and open spina bifida. The [place] [employer] recommends that all women be counseled regarding the differences between screening and invasive diagnostic testing. Performed By: #### S EQ1 ####[facility] LABCLIA [id number] [place] [address] Mother's race Normal [facility] Comment on above: Order Comment: Speci men Type: BLOOD SPECIMENOrdering Facility: [facility] Address: [address] [place] [address] Performed By: #### S EQ1 ####[facility] LABCLIA [id number] [place] [address] NOTE: Comment Normal [facility] Comment on above: Order Comment: Specraul bergeron Type: BLOOD SPECIMENOrdering Facility: [facility] Address: [address] [place] [address] Result Comment: Raj redman verify all clinical data used in this risk assessment and call [phone] with any corrections. Betzy Nuñez, Ph.D., [facility] Director References: Available upon request Open Spina Bifida (OSB) MoM Cutoffs Marquez 2.5 Black 2.8 IDD 2.0 Twins 4.5 Risk Cutoffs Down Syndrome (DS) cutoff 1:270 Trisomy 18 (T18) cutoff 1:100 For further inquiries contact [employer] Customer Service at [phone]. This test was developed and its performance characteristics determined by [facility]. It has not been cleared or approved by the Food and Drug Administration. Performed By: #### S EQ1 ####[facility] LABCLIA [id number] [place] [address] Number of fetuses by US 1 Normal C [facility] Comment on above: Order Comment: Speci men Type: BLOOD SPECIMENOrdering Facility: [facility] Address: [address] [place] [address] Performed By: #### S EQ1 ####[facility] LABCLIA [id number] [place] [address] associated plasma protein A [Mass/Vol] 396.8 ng/mL Normal [facility] Comment on above: Order Comment: Speci men Type: BLOOD SPECIMENOrdering Facility: [facility] Address: [address] [place] [address] Performed By: #### S EQ1 ####[facility] LABCLIA [id number] [place] [address] associated plasma protein A adjusted [MoM] 0.38 Normal [facility] Comment on above: Order Comment: Speci men Type: BLOOD SPECIMENOrdering Facility: [facility] Address: [address] [place] [address] Performed By: #### S EQ1 ####[facility] LABCLIA [id number] [place] [address] RESULTS Report Normal [facility] Comment on above: Order Comment: Speci men Type: BLOOD SPECIMENOrdering Facility: [facility] Address: [address] [place] [address] Performed By: #### S EQ1 ####[facility] LABCLIA [id number] [place] [address] [employer] [Identifier] [id number] Normal [facility] Comment on above: Order Comment: Speci men Type: BLOOD SPECIMENOrdering Facility: [facility] Address: [address] [place] [address] Performed By: #### S EQ1 ####[facility] LABCLIA [id number] [place] [address] SUBMIT PART 2 SAMPLE USING Date: Normal [facility] Comment on above: Order Comment: Speci men Type: BLOOD SPECIMENOrdering Facility: [facility] Address: [address] [place] [address] Result Comment: Sequ ential 2 Test Code 652996 Based on gest age provided, draw sample after: 01/14/2024 Performed By: #### S EQ1 ####[facility] LABCLIA [id number] [place] [address] Trisomy 18 risk Based on maternal age Qn (fetus) Age Risk: Normal [facility] Comment on above: Order Comment: Speci men Type: BLOOD SPECIMENOrdering Facility: [facility] Address: [address] [place] [address] Result Comment: 1 in 3654 Performed By: #### S EQ1 ####[facility] LABCLIA [id number] [place] [address] Trisomy 18 risk Qn (fetus) Screening Risk: Normal [facility] Comment on above: Order Comment: Speci men Type: BLOOD SPECIMENOrdering Facility: [facility] Address: [address] [place] [address] Result Comment: 1 in 1700 Performed By: #### S EQ1 ####[facility] LABCLIA [id number] [place] [address] Trisomy 21 risk Based on maternal age Qn (fetus) Age Risk: Normal [facility] Comment on above: Order Comment: Speci men Type: BLOOD SPECIMENOrdering Facility: [facility] Address: [address] [place] [address] Result Comment: 1 in 938 Performed By: #### S EQ1 ####[facility] LABCLIA [id number] [place] [address] Trisomy 21 risk Qn (fetus) Screening Risk: Normal [facility] Comment on above: Order Comment: Speci men Type: BLOOD SPECIMENOrdering Facility: [facility] Address: [address] [place] [address] Result Comment: 1 in 6000 Performed By: #### S EQ1 ####[facility] LABCLIA [id number] [place] [address] Ultrasound date Date: Normal [facility] Comment on above: Order Comment: Speci men Type: BLOOD SPECIMENOrdering Facility: [facility] Address: [address] [place] [address] Result Comment: 12/21 Performed By: #### S EQ1 ####[facility] LABCLIA [id number] [place] [address] TYPE + SCREEN PRENATALon ABO A Normal [facility] Comment on above: Order Comment: Speci men Type: BLOOD SPECIMEN [facility] Address: [address] [place] [address] Performed By: #### 5 8410-2 #### [facility] CLIA [id number] [address] [place] [address] [place] HISTORICAL AB SCR STATUS Negative Normal [facility] Comment on above: Order Comment: Speci men Type: BLOOD SPECIMEN [facility] Address: [address] [place] [address] Performed By: #### 5 8410-2 #### [facility] CLIA [id number] [address] [place] [address] [place] Rh Nom (Bld) Positive Normal [facility] Comment on above: Order Comment: Speci men Type: BLOOD SPECIMEN [facility] Address: [address] [place] [address] Performed By: #### 5 8410-2 #### [facility] CLIA [id number] [address] [place] [address] [place] TYPE AND SCREEN EXPIRATION 01/04/2024 23:59 Normal [facility] Comment on above: Order Comment: Speci men Type: BLOOD SPECIMEN [facility] Address: [address] [place] [address] Performed By: #### 5 8410-2 #### [facility] CLIA [id number] [address] OF [facility] Tay 12-22-2023 CNPN Telephone (OBGYWM) NATALYASHILPA ([id number]) 1995 F Date Time Provider Department 12/22/23 SARAH HUBER OBGYWM During your visit today, we recorded the following information about you: Margarita Hearn RN 12/22/2023 2:43 PM Signed 12w1d Patient asking for medication for N/V. Has tried Vitamin B6 without the [employer] and had little relief. Vomiting once a day. Keeping fluids down. Eating very little. Recommended patient eat small snacks and include some protein to keep BS regulated. Can something be called in for her? CHANA Gonzalez Deidre, MD 12/22/2023 2:52 PM Signed Phenergan ordered Khushboo Abraham RN 12/22/2023 3:04 PM Signed Patient notified and voiced understanding. Please file pended order. CHANA Gleason Deidre, MD 12/22/2023 3:06 PM Signed signed Allergies As of Date: 12/22/2023 Noted Allergy Reaction WALNUT 11/10/2023 10 - Anaphylaxis CORN 11/10/2023 5 - Intolerance SEASONAL ALLERGIES 11/10/2023 3 - Cough Date Reviewed: 11/13/2023 Reviewed by: Rachana Montanez LPN - Fully Assessed Reason for Visit: OB N/V [Other] Order(s):promethazine (PHENERGAN) 12.5 mg tabletTake 1 tablet by mouth every 6 hours as needed for nausea/vomiting.Disp: 30 tabletRfl: 0 Prescriptions as of 12/22/2023 - promethazine (PHENERGAN) 12.5 mg tablet Take 1 tablet by mouth every 6 hours as needed for nausea/vomiting. - aspirin, enteric coated (ECOTRIN LOW STRENGTH) 81 mg EC tablet Take 1 tablet by mouth once daily. Problem List As Of Date 12/22/2023 Noted Resolved Encounter for supervision of normal i*11/13/2023 History of IUFD [Z87.59] 11/13/2023 11/13/2023 Endometritis [N71.9] 11/13/2023 History of gestational hypertension [Z87.59] 11/13/2023 History of IUFD [Z87.59] 11/13/2023 History of drug abuse (HCC) [F19.11] 11/13/2023 Prescriptions ordered this encounter Disp Refills Start End PROMETHAZINE 12.5 MG TABLET 30 t* 0 12/22/2023 01/21/2024 Route: ORAL Sig: Take 1 tablet by mouth every 6 hours as needed for nausea/vomiting. Encounter Status:Closed by NICCI MCKEON on 12/22/23 Normal [facility] Basic Metabolic Profile (BMP )on 11-30-2023 BUN/CRE 14.4 RATIO Normal 10-20 [facility] Comment on above: Performed By: #### L 100.0100, L500.2500 #### [facility] [address] [place], [address] CA,Total 9.3 mg/dL Normal 8.5-10.1 [facility] Comment on above: Performed By: #### L 100.0100, L500.2500 #### [facility] [address] [place], [address] Chloride [Moles/Vol] 105 mmol/L Normal 98-107 [facility] Comment on above: Performed By: #### L 100.0100, L500.2500 #### [facility] [address] [facility] [place] [place], [address] CO2 [Moles/Vol] 22.0 mmol/L Normal 21.0-32.0 [facility] Comment on above: Performed By: #### L 100.0100, L500.2500 #### [facility] [address] [place], [address] Creatinine [Mass/Vol] 0.48 mg/dL Low 0.55-1.02 [facility] Comment on above: Result Comment: The validity of the calculated GFR GFRAA in patients over 70 years has not been determined. Clinical correlation is essential. Performed By: #### L 100.0100, L500.2500 #### [facility] [address] [place], [address] ECRCL 184.61 ml/min Normal [facility] Comment on above: Performed By: #### L 100.0100, L500.2500 #### [facility] [address] [place], [address] EST GFR - AA 197 mL/min Normal >60 [facility] Comment on above: Result Comment: Afri can Tun[place]ian GFR Calc Performed By: #### L 100.0100, L500.2500 #### [facility] [address] [place], [address] GAP 8 Normal 5-15 [facility] Comment on above: Performed By: #### L 100.0100, L500.2500 #### [facility] [address] [place], [address] GFR/1.73 sq M.predicted among non-blacks MDRD (S/P/Bld) [Vol rate/Area] 163 mL/min/{1.73_m2} Normal >60 [facility] Comment on above: Result Comment: Non- GFR Calc Performed By: #### L 100.0100, L500.2500 #### [facility] [address] [place], [address] Glucose [Mass/Vol] 81 mg/dL Normal 74-106 [facility] Comment on above: Performed By: #### L 100.0100, L500.2500 #### [facility] [address] [place], [address] Potassium [Moles/Vol] 3.3 mmol/L Low 3.5-5.1 [facility] Comment on above: Performed By: #### L 100.0100, L500.2500 #### [facility] [address] [place], [address] Sodium [Moles/Vol] 135 mmol/L Low 136-145 [facility] Comment on above: Performed By: #### L 100.0100, L500.2500 #### [facility] [address] [place], [address] Urea nitrogen [Mass/Vol] 7 mg/dL Normal 7-18 [facility] Comment on above: Performed By: #### L 100.0100, L500.2500 #### [facility] [address] [place], [address] CBC W/Diff, Automatedon 06-0 9-2024 Absolute Lymph 1.83 X10 3/uL Normal 0.83-4.51 [facility] Comment on above: Performed By: #### L 100.0100, L500.2500 #### [facility] [address] [place], [address] Absolute Neut 7.1 X10 3/uL Normal 2.0-7.7 [facility] Comment on above: Performed By: #### L 100.0100, L500.2500 #### [facility] [address] [place], [address] Basophils/100 WBC (Bld) 0.3 % Normal 0-1 [facility] Comment on above: Performed By: #### L 100.0100, L500.2500 #### [facility] [address] [place], [address] Eosinophils/100 WBC (Bld) 1.3 % Normal 0-5 [facility] Comment on above: Performed By: #### L 100.0100, L500.2500 #### [facility] [address] [place], [address] Erythrocyte distribution width (RBC) [Ratio] 13.5 % Normal 11.6-14.6 [facility] Comment on above: Performed By: #### L 100.0100, L500.2500 #### [facility] [address] [place], [address] Hematocrit (Bld) [Volume fraction] 36.9 % Low 37-47 [facility] Comment on above: Performed By: #### L 100.0100, L500.2500 #### [facility] [address] [place], [address] Hemoglobin (Bld) [Mass/Vol] 12.3 g/dL Normal 12.0-15.0 [facility] Comment on above: Performed By: #### L 100.0100, L500.2500 #### [facility] [address] [place], [address] IG% 0.300 Normal 0.0-0.9 [facility] Comment on above: Result Comment: IG% - Immature Granulocytes (promyelocytes, myelocytes and metamyelocytes) > 1% indicates that a LEFT SHIFT is Present. Performed By: #### L 100.0100, L500.2500 #### [facility] [address] [place], [address] Lymphocytes/100 WBC (Bld) 19.0 % Normal 19-41 [facility] Comment on above: Performed By: #### L 100.0100, L500.2500 #### [facility] [address] [place], [address] MCH (RBC) [Entitic mass] 27.6 pg Normal 27.0-32.0 [facility] Comment on above: Performed By: #### L 100.0100, L500.2500 #### [facility] [address] [place], [address] MCHC (RBC) [Mass/Vol] 33.3 g/dL Normal 32-36 [facility] Comment on above: Performed By: #### L 100.0100, L500.2500 #### [facility] [address] [place], [address] MCV (RBC) [Entitic vol] 82.7 fL Normal 81-99 [facility] Comment on above: Performed By: #### L 100.0100, L500.2500 #### [facility] [address] [place], [address] Monocytes/100 WBC (Bld) 5.3 % Normal 0-10 [facility] Comment on above: Performed By: #### L 100.0100, L500.2500 #### [facility] [address] [place], [address] Neutrophils/100 WBC (Bld) 73.8 % High 47-70 [facility] Comment on above: Performed By: #### L 100.0100, L500.2500 #### [facility] [address] [place], [address] Nucleated RBC (Bld) [#/Vol] 0 10*3/uL Normal 0-5 [facility] Comment on above: Performed By: #### L 100.0100, L500.2500 #### [facility] [address] [place], [address] Platelet mean volume (Bld) [Entitic vol] 11.0 fL Normal 6.2-12.0 [facility] Comment on above: Performed By: #### L 100.0100, L500.2500 #### [facility] [address] [place], [address] Platelets (Bld) [#/Vol] 220 10*3/uL Normal 150-450 [facility] Comment on above: Performed By: #### L 100.0100, L500.2500 #### [facility] [address] [place], [address] RBC (Bld) [#/Vol] 4.46 10*6/uL Normal 4.2-5.4 [facility] Comment on above: Performed By: #### L 100.0100, L500.2500 #### [facility] [address] [place], [address] RDW SD 40.4 fl Normal 35.1-43.9 [facility] Comment on above: Performed By: #### L 100.0100, L500.2500 #### [facility] [address] [place], [address] WBC (Bld) [#/Vol] 9.7 10*3/uL Normal 4.4-11.0 [facility] Comment on above: Performed By: #### L 100.0100, L500.2500 #### [facility] [address] [place], [address] Chest PA and Lateralon 11-29 Chest PA and Lateral [facility] Imaging Services [address] [place] [address] Chest PA and Lateral MR#: [id number] Acct: [id number] Name: SHILPA HOANG Rep #: [id number] : 1995 F 27 From: William Easton PCP: Dr. David Mckinney MD Status: [facility] ER Study: Chest PA and Lateral Date of Exam: 11/30/23 Exam# [id number] Ordering Dr: [place] [id number] INDICATION: Chest pain EXAMINATION/TECHNIQUE: X-RAY - XR Chest 2 Views COMPARISON: Prior study dated: 06/09/2024 FINDINGS: LINES/DEVICES: None. LUNGS: No consolidation, edema or effusion. No pneumothorax. MEDIASTINUM AND CARDIOVASCULAR STRUCTURES: Cardiac silhouette not enlarged. Central airways and mediastinal contour are unremarkable. BONES AND SOFT TISSUES: Unremarkable. RAD/Chest PA and Lateral IMPRESSION: No radiographic evidence of acute cardiopulmonary disease. Electronically Signed: William Deutsch MD at 11:38 EDT , CC: Dr. David Felix DO; Dr. David Mckinney MD Sterile Tech: Signed Normal [facility] Emergency Department Summary on 11-30-2023 Emergency Department Summary [facility] Medical Records Department [address] [place] [address] Emergency Department Summary 11/30/23 MR#: [id number] Acct: [id number] Name: SHILPA HOANG Rep #: [id number] : 1995 27 From: David Felix DO PCP: Dr. David Mckinney MD Status:DEP ER Location: ED HPI History of Present Illness Chief Complaint: Chest Other Informant: patient Onset/Context/Timing Onset: Today Context: Sudden Onset Timing: Continuous Quality: Sharp Location: Right chest Worsened by: Deep breathing, movement Relieved by: Rest Narrative Narrative: Patient presents with right-sided chest pain that began today. Patient states it began rather suddenly. Patient states it is over the right lower chest. Patient states it is worse with deep breathing and with movement. Patient states it is better with rest. Patient describes her pain as stabbing. Patient states it is constant. Patient denies any trauma or injury. Patient admits to some nausea and vomiting. Patient denies any shortness of breath. Patient denies any fevers or chills. Patient states she was recently started on amoxicillin for bacterial bronchitis. Patient states she had a culture done which showed haemophilus influenza B. [facility] Medical History History of placental abruption Trauma depression Anxiety Cervical myofascial strain (spontaneous vaginal delivery) Home Medications ???Medication ???Instructions ???Recorded ???Last Taken ???Type frkhgliv-cvj-Ho-FA 1 mg 1 tab PO DAILY 09/13/21 02/17/22 09:00 History tablet ferrous sulfate 325 mg (65 mg 325 mg PO DAILY 02/17/22 02/14/22 21:00 History iron) tablet (Iron (ferrous sulfate)) naproxen 500 mg tablet (Naprosyn) 500 mg PO BID PRN pain #20 tabs 01/08/23 Unknown Rx montelukast 10 mg tablet 10 mg PO DAILY 08/10/23 Unknown History ondansetron 4 mg disintegrating 4 mg PO Q8H PRN PRN Nausea #10 tabs 08/10/23 Unknown Rx tablet sertraline 100 mg tablet 100 mg PO Q24H 08/10/23 Unknown History venlafaxine 37.5 mg 37.5 mg PO DAILY 08/10/23 Unknown History capsule,extended release 24 hr Allergy/AdvReac Type Severity Reaction Status Date / Time No Known Allergies Allergy Verified 11/30/23 09:07 Surgical History no surgical history no surgical history Social History number of children: 2 Smoking Status: Current every day smoker tobacco type: cigarettes alcohol intake: former 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 ROS ROS ED Constitutional Constitutional ED: Denies chills or fever(s) Eyes Eyes: Denies blurry vision or change in vision ENT ENT ED: Denies rhinorrhea or sore throat Cardiovascular Cardiovascular: Reports chest pain; Denies palpitations Respiratory/Chest Respiratory/Chest: Denies cough or dyspnea Gastrointestinal Gastrointestinal: Reports nausea and vomiting Genitourinary Genitourinary ED: Denies dysuria or hematuria Musculoskeletal Musculoskeletal: Denies back pain or neck pain Integumentary Denies abscess or rash Neurologic Neurologic: Reports headache(s); Denies weakness Allergic/Immunologic Allergic/Immunologic ED: Denies mouth swelling or urticaria EXAM Physical Exam Const Vital Signs: 11/30/23 09:05 11/30/23 09:07 11/30/23 10:07 Temperature 97.4 F L 97.4 F L 98.1 F Temperature Source Temporal Temporal Oral Pulse Rate 100 100 97 Respiratory Rate 16 16 16 Respiratory Effort Blood Pressure 122/88 H 122/88 H 122/96 H Blood Pressure Mean 99 99 104 Pulse Ox 100 100 97 Oxygen Delivery Method Room Air Room Air Room Air 11/30/23 11:00 11/30/23 11:14 11/30/23 11:30 Temperature 97.2 F L 97.8 F Temperature Source Temporal Oral Pulse Rate 67 94 Respiratory Rate 15 20 H Respiratory Effort Normal Non-Labored Blood Pressure 125/77 H 135/94 H Blood Pressure Mean 93 107 Pulse Ox 98 93 Oxygen Delivery Method Room Air Room Air Positive well nourished and well developed General Appearance ED: well developed and NAD HEENT Reports moist mucous membranes Neck supple and no JVD Chest Wall Chest Narrative: There is tenderness to palpation over the right lower chest. There is no subcutaneous emphysema. There is no bony crepitance or step-off noted. Resp normal respiratory effort and clear to auscultation bilaterally Cardio regular rate and regular rhythm GI non-tender and non-distended Palpation: soft Extremity normal to inspection Neuro oriented x3, CN's II-XII intact bilaterally and no sensory deficits noted Psych mental status grossly normal MDM MDM MDM Narrative Medical decision (more content not included)... Normal [facility] Emergency Department Summary on 11-23-2023 Emergency Department Summary [facility] Medical Records Department [address] [place] [address] Emergency Department Summary 11/23/23 MR#: [id number] Acct: [id number] Name: SHILPA HOANG Rep #: [id number] : 1995 27 From: Phillip Bishop DO PCP: Dr. David Mckinney MD Status:DEP ER Location: ED HPI HPI - GI History of Present Illness Chief Complaint: Abd Pain Narrative Narrative: 27-year-old female presenting with abdominal pain. She describes it is intermittent. Sometimes it is in the right side and sometimes to the left. She states she is 7 and half weeks . She is already had an ultrasound performed. She states nobody has done any blood work. Denies urinary or vaginal complaints. Denies fever or chills. She is not currently in any pain. PFSH PFSH Medical History History of placental abruption Trauma depression Anxiety Cervical myofascial strain (spontaneous vaginal delivery) Home Medications ???Medication ???Instructions ???Recorded ???Last Taken ???Type titkgmpu-wwg-An-FA 1 mg 1 tab PO DAILY 09/13/21 02/17/22 09:00 History tablet ferrous sulfate 325 mg (65 mg 325 mg PO DAILY 02/17/22 02/14/22 21:00 History iron) tablet (Iron (ferrous sulfate)) naproxen 500 mg tablet (Naprosyn) 500 mg PO BID PRN pain #20 tabs 01/08/23 Unknown Rx montelukast 10 mg tablet 10 mg PO DAILY 08/10/23 Unknown History ondansetron 4 mg disintegrating 4 mg PO Q8H PRN PRN Nausea #10 tabs 08/10/23 Unknown Rx tablet sertraline 100 mg tablet 100 mg PO Q24H 08/10/23 Unknown History venlafaxine 37.5 mg 37.5 mg PO DAILY 08/10/23 Unknown History capsule,extended release 24 hr Allergy/AdvReac Type Severity Reaction Status Date / Time No Known Allergies Allergy Verified 11/23/23 08:27 Social History number of children: 2 Smoking Status: Current every day smoker tobacco type: cigarettes alcohol intake: former 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 ROS ROS ED Constitutional Constitutional ED: Denies chills, fever(s) or sweats Eyes Eyes: Denies blurry vision or change in vision ENT ENT ED: Denies ear pain or sore throat Cardiovascular Cardiovascular: Denies chest pain, palpitations or racing heartbeat Respiratory/Chest Respiratory/Chest: Denies cough, dyspnea or sputum Gastrointestinal Gastrointestinal: Reports abdominal pain; Denies constipation, diarrhea, nausea or vomiting Genitourinary Genitourinary ED: Denies dysuria, hematuria or urinary frequency Musculoskeletal Musculoskeletal: Denies arthralgias, myalgias or neck pain Integumentary Denies abscess, Abrasions or rash Neurologic Neurologic: Denies headache(s), paresthesias or weakness Psychiatric Psychiatric: Denies anxiety, depression, suicidal ideation or suicidal thoughts Endocrine Endocrinology: Denies polydipsia or polyuria EXAM Physical Exam Const Vital Signs: 11/23/23 08:25 11/23/23 11:00 11/23/23 11:13 Temperature 96.8 F L 98 F Temperature Source Temporal Pulse Rate 81 80 80 Respiratory Rate 16 16 16 Blood Pressure 123/79 H 120/68 124/64 H Blood Pressure Mean 93 85 84 Pulse Ox 97 100 100 Oxygen Delivery Method Room Air Positive well nourished General Appearance ED: NAD HEENT Reports moist mucous membranes normocephalic and atraumatic Resp normal respiratory effort Cardio regular rate and regular rhythm GI non-tender and non-distended Back/Spine no CVA tenderness Neuro CN's II-XII intact bilaterally Sensorium / Orientation: alert Motor Exam: strength 5/5 throughout Psych mental status grossly normal Skin no wounds MDM MDM MDM Narrative Medical decision making narrative: 27-year-old female presenting with abdominal pain. Differential includes for , round ligament pain, ectopic . She is currently 7-1/2 weeks she believes. She states that her first ultrasound was done to see how far along she was because because she was not sure. On examination she does not have any pain right now. Urinalysis is negative. hCG is 54,925. Obtained transvaginal ultrasound shows live intrauterine at 7 weeks 3 days. No other abnormalities noted heart tones noted to be 124 bpm. Patient counseled on findings. She will follow-up with OB. She does not know the name of the OB she is going to follow-up with which she has the information at home. Impression: 1. First trimester 2. Abdominal pain Lab Data Labs: Laboratory Results - last 24 hr 11/23/23 11/23/23 09:40 10:30 HCG, Quant [id number] H Urine Color Yellow Urine Clarity Clear Urine pH 8.0 Ur Specif (more content not included)... Normal [facility] Transvaginal w/Preg USon Transvaginal w/Preg [facility] Imaging Services [address] [place] [address] Transvaginal w/Preg MR#: [id number] Acct: [id number] Name: SHILPA HOANG Rep #: [id number] : 1995 F 27 From: Carly Glynn MD PCP: Dr. David Mckinney MD Status: [facility] Study: Transvaginal w/Preg US Date of Exam: 11/23/23 Exam# [id number] Ordering Dr: [place] [id number] INDICATION: abdominal pain EXAMINATION: Ultrasound US OB Transvaginal TECHNIQUE: Transvaginal (for optimal evaluation of the adnexa) pelvic ultrasound was performed. Grayscale, spectral waveform, and color flow Doppler evaluation of the adnexa. COMPARISON: November 04, 2021 FINDINGS: UTERUS: 11.4 x 6.3 x 8.4 cm. RIGHT OVARY: 3.9 x 2.0 x 1.9 cm. Normal. LEFT OVARY: 3.6 x 1.5 x 2.8 cm. There is a questionable 2.2 x 1.0 x 2.8 cm cyst within the left ovary. The Doppler flow to the left ovary is within normal limits. FREE FLUID: None. INTRAUTERINE GESTATIONAL SAC: Single. The mean sac diameter measures 2.47 cm. YOLK SAC: Identified POLE: Identified. The crown-rump length measures 0.97 cm. ESTIMATED GESTATION AGE: 7 weeks and 3 days. HEART MOTION: 124 bpm. PLACENTA: Not visualized due to age. SUBCHORIONIC HEMORRHAGE: None. AMNIOTIC FLUID: Qualitatively normal. US/Transvaginal w/Preg US IMPRESSION: Single live intrauterine . Estimated gestational age is 7 weeks and 3 days. Electronically Signed: Carly Glynn MD at 10:21 EDT , CC: Dr. Phillip Bishop DO; Dr. David Mckinney MD Sterile Tech: Signed Normal [facility] Urinalysis, Completeon 11-22 EPI,SQUAMOUS 0-5 SEEN Normal 5-10 [facility] Comment on above: Order Comment: ANTONIA CTOR TO SPECIFY Performed By: #### L 400.0001 #### [facility] [address] [place], [address] WBC 0-5 SEEN Normal 0-5 [facility] Comment on above: Order Comment: ANTONIA CTOR TO SPECIFY Performed By: #### L 400.0001 #### [facility] [address] [place], [address] BACTERIA 0 SEEN Normal None Seen [facility] Comment on above: Order Comment: ANTONIA CTOR TO SPECIFY Performed By: #### L 400.0001 #### [facility] [address] [place], [address] Mucus Ql (Urine sed) 0 SEEN Normal [facility] Comment on above: Order Comment: ANTONIA CTOR TO SPECIFY Performed By: #### L 400.0001 #### [facility] [address] [place], [address] RBC 0 SEEN Normal 0-5 [facility] Comment on above: Order Comment: ANTONIA CTOR TO SPECIFY Performed By: #### L 400.0001 #### [facility] [address] [place], [address] hCG Titer Quant., Serumon HCG QUANT. 45850 mIU/mL High 1-3 [facility] Comment on above: Result Comment: hCG levels with Gestational Age Gestational Age hCG mIU/mL (IU/L) 0.2 - 1 week 5 - 50 1-2 weeks 50 - 500 2-3 weeks 100 - 5000 3-4 weeks 500 - 38553 4-5 weeks 1000 - 97936 5-6 weeks 67302 - 100,000 6-8 weeks 69167 - 200,000 2-3 months 13467 - 100,000 Performed By: #### L 505.5000 #### [facility] [address] [place], [address] C. trachomatis+N. gonorrhoea e DNA OFELIA+probe Ql (Unsp spec)on 11-14-2023 C. trachomatis rRNA OFELIA+probe Ql (Unsp spec) Negative Negative for Chlamydia trachomatis by amplificaton [facility] Interpretation and review of laboratory results Normal [facility] N. gonorrhoeae rRNA OFELIA+probe Ql (Unsp spec) Negative Negative for Neisseria gonorrhoeae by amplification [facility] QUILL MACHINE OPERATOR ULTRASOUNDon 11-13-19 Indication Confirmation of intrauterine . Confirmation of cardiac activity Impression 1. Single, live, intrauterine . 2. An intrauterine gestational sac with a yolk sac and pole are present. 3. [place] rump length measurement is consistent with the established gestational age. 4. heart tones are within normal limits. Recommendations Follow up as clinically indicated. Method Transvaginal ultrasound examination. View: Adequate visualization Marquez . Number of embryos: 1 Dating LMP on: 09/28/2023 GA by LMP 6 w + 4 d JANE by LMP: 07/04/2024 Ultrasound examination on: 11/13/2023 GA by U/S based upon: CRL GA by U/S 5 w + 5 d JANE by U/S: 07/10/2024 Assigned: based on the LMP, selected on 11/13/2023 Assigned GA 6 w + 4 d Assigned JANE: 07/04/2024 Biometry Standard FHR 107 bpm CRL 2.1 mm 5w 5d <1% [facility] Assessment Gestational sac: visualized Location: intrauterine Yolk sac: visualized Embryo: visualized CRL 2.1 mm 5w 5d <1% [facility] Cardiac activity: present FHR 107 bpm General Evaluation Cardiac activity present. FHR 107 bpm Performed By: Sharda Valero CNP Read By: Sharda Valero CNP MATERNAL MEDICINE [facility] Radiology Study observation (narrative) [facility] Absolute lymphocyte countOrd ered By: Kuldeep Vanegas on 08-10-2023 Lymphocytes Auto (Unsp spec) [#/Vol] 1.57 10*3/uL 0.83-4.51 [facility] Automated lymphocyte count a s percentage of total leukocytesOrdered By: Kuldeep Vanegas on 08-10-2023 Lymphocytes/100 WBC Auto (Unsp spec) 32.8 % 19-41 [facility] Basophil percentageOrdered B y: Kuldeep Vanegas on 08-10-2023 Basophil percentage 5-10 SEEN /hpf 0-5 [facility] Basophils/100 WBC (Bld) 0.6 % 0-1 [facility] Bilirubin [Mass/Vol] 0.30 mg/dL 0.20-1.00 [facility] Comment on above: For patients on eltr ombopag therapy, use of Dimension [place] TBIL is not recommended. Chloride [Moles/Vol] 112 mmol/L 98-107 [facility] Eosinophils/100 WBC (Bld) 6.1 % 0-5 [facility] Glucose [Mass/Vol] 85 mg/dL 74-106 [facility] Hemoglobin (Bld) [Mass/Vol] 12.1 g/dL 12.0-15.0 [facility] Monocytes/100 WBC (Bld) 9.4 % 0-10 [facility] Neutrophils (Bld) [#/Vol] 2.4 10*3/uL 2.0-7.7 [facility] Neutrophils/100 WBC (Bld) 50.9 % 47-70 [facility] Potassium [Moles/Vol] 3.8 mmol/L 3.5-5.1 [facility] Protein [Mass/Vol] 7.0 g/dL 6.4-8.2 [facility] Sodium [Moles/Vol] 139 mmol/L 136-145 [facility] WBC (Bld) [#/Vol] 4.8 10*3/uL 4.4-11.0 [facility] Bilirubin Test strip Ql (U)O rdered By: Kuldeep Vanegas on 08-10-2023 Bilirubin Ql (U) Negative Negative [facility] Determination of erythrocyte mean corpuscular volume (MCV)Ordered By: Kuldeep Vanegas on 08-10-2023 MCV (RBC) [Entitic vol] 85.3 fL 81-99 [facility] Erythrocyte distribution wid th ratioOrdered By: Kuldeep Vanegas on 08-10-2023 Erythrocyte distribution width (RBC) [Ratio] 13.1 % 11.6-14.6 [facility] Erythrocyte distribution wid th standard deviationOrdered By: Kuldeep Vanegas on 08-10-2023 Erythrocyte distribution width (RBC) [Entitic vol] 39.9 fL 35.1-43.9 [facility] Hematocrit Auto (Bld) [Volum e fraction]Ordered By: Kuldeep Vanegas on 08-10-2023 Hematocrit (Bld) [Volume fraction] 37.7 % 37-47 [facility] Immature granulocytes/100 WB C Auto (Bld)Ordered By: Kuldeep Vanegas on 08-10-2023 Immature granulocytes/100 WBC (Bld) 0.200 % 0.0-0.9 [facility] Comment on above: IG% - Immature Granu locytes (promyelocytes, myelocytes and metamyelocytes) > 1% indicates that a LEFT SHIFT is Present. Ketones Test strip Ql (U)Ord ered By: Kuldeep Vanegas on 08-10-2023 Ketones Ql (U) Negative Negative [facility] Laboratory - Chemistry and C hemistry - challengeOrdered By: Kuldeep Vanegas on 08-10-2023 HCG ( test) Ql (U) Negative [facility] Comment on above: Very dilute urine sp ecimens, as indicated by a low specificgravity, may not contain automotive leasing sales representative levels of hCG. If is still suspected, a first morning urinespecimen should be collected 48 hours later and tested. Albumin/Globulin [Mass ratio] 0.9 {ratio} 0.9-2.4 [facility] ALP [Catalytic activity/Vol] 104 U/L 45-117 [facility] ALT [Catalytic activity/Vol] 46 U/L 13-56 [facility] CO2 [Moles/Vol] 24.0 mmol/L 21.0-32.0 [facility] Globulin (S) [Mass/Vol] 3.7 g/dL 2.2-4.2 [facility] Urea nitrogen/Creatinine [Mass ratio] 15.1 mg/mg 10-20 [facility] Laboratory - Hematology and Cell countsOrdered By: Kuldeep Vanegas on 08-10-2023 MCH (RBC) [Entitic mass] 27.4 pg 27.0-32.0 [facility] MCHC (RBC) [Mass/Vol] 32.1 g/dL 32-36 [facility] Nucleated RBC/100 WBC (Bld) [Ratio] 0 % 0-5 [facility] Platelet mean volume (Bld) [Entitic vol] 12.2 fL 6.2-12.0 [facility] Platelets (Bld) [#/Vol] 187 10*3/uL 150-450 [facility] - Microbiology an d Antimicrobial susceptibilityOrdered By: Kuldeep Vanegas on 08-10-2023 SARS-CoV-2 (COVID-19) RNA OFELIA+probe Ql (Unsp spec) [facility] Mucus LM Ql (Urine sed)Order ed By: Kuldeep Vanegas on 08-10-2023 Mucus Ql (Urine sed) 0 SEEN /hpf [facility] Nitrite Test strip Ql (U)Ord ered By: Kuldeep Vanegas on 08-10-2023 Nitrite Ql (U) Negative Negative [facility] No Panel InformationOrdered By: Kuldeep Vanegas on 08-10-2023 Urine RBC 0 SEEN /hpf 0-5 [facility] Estimated Creatinine Clearance Calc 155.99 ml/min [facility] Estimated GFR (MDRD) Amer 156 mL/min >60 [facility] Comment on above: GFR Calc Estimated GFR (MDRD) Non-Af Amer 129 mL/min >60 [facility] Comment on above: Non- GFR Calc Protein Test strip Ql (U)Ord ered By: Kuldeep Vanegas on 08-10-2023 Protein Ql (U) Negative Negative [facility] RBC Auto (Bld) [#/Vol]Ordere d By: Kuldeep Vanegas on 08-10-2023 RBC (Bld) [#/Vol] 4.42 10*6/uL 4.2-5.4 [facility] Serum or plasma calcium roopa urement (mass/volume)Ordered By: Kuldeep Vanegas on 08-10-2023 Calcium [Mass/Vol] 8.7 mg/dL 8.5-10.1 [facility] Serum or plasma creatinine m easurement (mass/volume)Ordered By: Kuldeep Vanegas on 08-10-2023 Creatinine [Mass/Vol] 0.60 mg/dL 0.55-1.02 [facility] Comment on above: The validity of the calculated GFR & GFRAA in patients over 70 years has not been determined. Clinical correlation is essential. Serum or plasma urea nitroge n measurement (mass/volume)Ordered By: Kuldeep Vanegas on 08-10-2023 Urea nitrogen [Mass/Vol] 9 mg/dL 7-18 [facility] Squamous epithelial cells de tection in urine sediment by light microscopyOrdered By: Kuldeep Vanegas on 08-10-2023 Epithelial cells.squamous LM Ql (Urine sed) 10-25 SEEN /hpf 5-10 [facility] Thin prep Papanicolaou smear with manual screeningOrdered By: Kuldeep Vanegas on 08-10-2023 Thin prep Papanicolaou smear with manual screening 3.3 g/dL 3.2-5.0 [facility] Thin prep Papanicolaou smear with manual screening 25 U/L 15-37 [facility] Thin prep Papanicolaou smear with manual screening 3 5-15 [facility] Urine blood detectionOrdered By: Kuldeep Vanegas on 08-10-2023 RBC Ql (U) Negative Negative [facility] Urine clarityOrdered By: Iker Vanegas on 08-10-2023 Clarity (U) Sl. Cloudy Clear [facility] Urine color determinationOrd ered By: Kuldeep Vanegas on 08-10-2023 Color (U) Yellow Yellow [facility] Urine glucose detectionOrder ed By: Kuldeep Vanegas on 08-10-2023 Glucose Ql (U) Normal mg/dl Normal [facility] Urine leukocyte esterase det ection by dipstickOrdered By: Kuldeep Vanegas on 08-10-2023 Leukocyte esterase Test strip Ql (U) 500 /ul Negative [facility] Urine pHOrdered By: Kuldeep patel on 08-10-2023 pH (U) 6.0 [pH] 5.0 - 8.0 [facility] Urine sediment bacteria coun t by microscopy (number/high power field)Ordered By: Kuldeep Vanegas on 08-10-2023 Bacteria LM.HPF (Urine sed) [#/Area] 3 /[HPF] None Seen [facility] Urine specific gravity measu rementOrdered By: Kuldeep Vanegas on 08-10-2023 Specific gravity (U) [Rel density] 1.015 1.002-1.030 [facility] Urine urobilinogen measureme ntOrdered By: Kuldeep Vanegas on 08-10-2023 Urobilinogen Ql (U) 1 mg/dl Normal [facility] Absolute lymphocyte countOrd ered By: David Mckinney on 07-04-2023 Lymphocytes Auto (Unsp spec) [#/Vol] 2.38 10*3/uL 0.83-4.51 [facility] Basophil percentageOrdered B y: David Mckinney on 07-04-2023 Basophil percentage 5-10 SEEN /hpf 0-5 [facility] Basophils/100 WBC (Bld) 0.8 % 0-1 [facility] Eosinophils/100 WBC (Bld) 7.3 % 0-5 [facility] Neutrophils (Bld) [#/Vol] 6.4 10*3/uL 2.0-7.7 [facility] Neutrophils/100 WBC (Bld) 63.4 % 47-70 [facility] WBC (Bld) [#/Vol] 10.1 10*3/uL 4.4-11.0 [facility] Beta hCG serum qualOrdered B y: David Mckinney on 07-04-2023 Beta HCG ( test) Ql Negative [facility] Bilirubin Test strip Ql (U)O rdered By: David Mckinney on 07-04-2023 Bilirubin Ql (U) Negative Negative [facility] Blood erythrocytes count (nu mber/volume)Ordered By: David Mckinney on 07-04-2023 RBC (Bld) [#/Vol] 4.70 10*6/uL 4.2-5.4 [facility] Blood hemoglobin measurement (mass/volume)Ordered By: David Mckinney on 07-04-2023 Hemoglobin (Bld) [Mass/Vol] 13.1 g/dL 12.0-15.0 [facility] Blood lymphocytes/100 leukoc ytesOrdered By: David Mckinney on 07-04-2023 Lymphocytes/100 WBC (Bld) 23.5 % 19-41 [facility] Blood monocytes/100 leukocyt esOrdered By: David Mckinney on 07-04-2023 Monocytes/100 WBC (Bld) 4.6 % 0-10 [facility] Blood platelet mean volumeOr dered By: David Mckinney on 07-04-2023 Platelet mean volume (Bld) [Entitic vol] 12.6 fL 6.2-12.0 [facility] Culture, urineOrdered By: Davidson Mckinney on 07-04-2023 Bacteria identified Cx Nom (U) Escherichia coli [facility] Determination of erythrocyte mean corpuscular volume (MCV)Ordered By: David Mckinney on 07-04-2023 MCV (RBC) [Entitic vol] 88.3 fL 81-99 [facility] Hematocrit Auto (Bld) [Volum e fraction]Ordered By: David Mckinney on 07-04-2023 Hematocrit (Bld) [Volume fraction] 41.5 % 37-47 [facility] Ketones Test strip Ql (U)Ord ered By: David Mckinney on 07-04-2023 Ketones Ql (U) Negative Negative [facility] Laboratory - Hematology and Cell countsOrdered By: David Mckinney on 07-04-2023 Erythrocyte distribution width (RBC) [Entitic vol] 40.8 fL 35.1-43.9 [facility] Erythrocyte distribution width (RBC) [Ratio] 12.5 % 11.6-14.6 [facility] Immature granulocytes/100 WBC (Bld) 0.400 % 0.0-0.9 [facility] Comment on above: IG% - Immature Granu locytes (promyelocytes, myelocytes and metamyelocytes) > 1% indicates that a LEFT SHIFT is Present. MCH (RBC) [Entitic mass] 27.9 pg 27.0-32.0 [facility] Nucleated RBC/100 WBC (Bld) [Ratio] 0 % 0-5 [facility] MCHC Auto (RBC) [Mass/Vol]Or dered By: David Mckinney on 07-04-2023 MCHC (RBC) [Mass/Vol] 31.6 g/dL 32-36 [facility] Mucus LM Ql (Urine sed)Order ed By: David Mckinney on 07-04-2023 Mucus Ql (Urine sed) 0 SEEN /hpf [facility] Nitrite Test strip Ql (U)Ord ered By: David Mckinney on 07-04-2023 Nitrite Ql (U) Positive Negative [facility] Platelets bldOrdered By: Maya Mckinney on 01-12-2024 Platelets (Bld) [#/Vol] 218 10*3/uL 150-450 [facility] Protein Test strip Ql (U)Ord ered By: David Mckinney on 07-04-2023 Protein Ql (U) Negative Negative [facility] Serum or plasma progesterone measurement (mass/volume)Ordered By: David Mckinney on 07-04-2023 Progesterone [Mass/Vol] 2.17 ng/mL See Comment [facility] Comment on above: Progesterone Referen ce Table: UNITS Female: Follicular 0.15 - 1.40 ng/mL Luteal 3.34 - 25.56 ng/mL Mid-luteal 4.44 - 28.03 ng/mL Postmenopausal 0.0 - 0.73 ng/mL : 1st Trimester 11.22 - 90.00 ng/mL 2nd Trimester 25.55 - 89.40 ng/mL 3rd Trimester 48.40 -422.50 ng/mL Squamous epithelial cells de tection in urine sediment by light microscopyOrdered By: David Mckinney on 07-04-2023 Epithelial cells.squamous LM Ql (Urine sed) 5-10 SEEN /hpf 5-10 [facility] Urine blood detectionOrdered By: David Mckinney on 07-04-2023 RBC Ql (U) 10 /ul Negative [facility] RBC Ql (U) 0 SEEN /hpf 0-5 [facility] Urine clarityOrdered By: Maya Mckinney on 07-04-2023 Clarity (U) Cloudy Clear [facility] Urine color determinationOrd ered By: David Mckinney on 07-04-2023 Color (U) Yellow Yellow [facility] Urine glucose detectionOrder ed By: David Mckinney on 07-04-2023 Glucose Ql (U) Normal mg/dl Normal [facility] Urine leukocyte esterase det ection by dipstickOrdered By: David Mckinney on 07-04-2023 Leukocyte esterase Test strip Ql (U) 100 /ul Negative [facility] Urine pHOrdered By: David aviles on 07-04-2023 pH (U) 6.0 [pH] 5.0 - 8.0 [facility] Urine sediment bacteria coun t by microscopy (number/high power field)Ordered By: David Mckinney on 07-04-2023 Bacteria LM.HPF (Urine sed) [#/Area] 3 /[HPF] None Seen [facility] Urine specific gravity measu rementOrdered By: David Mckinney on 07-04-2023 Specific gravity (U) [Rel density] 1.015 1.002-1.030 [facility] Urobilinogen Auto test strip Ql (U)Ordered By: David Mckinney on 07-04-2023 Urobilinogen Ql (U) Normal mg/dl Normal [facility] Beta hCG serum qualOrdered B y: Alex Dubois on 06-10-2023 Beta HCG ( test) Ql Negative [facility] Influenza virus A and B and SARS-CoV-2 (COVID-19) Ag panel - Upper respiratory specimOrdered By: Chantal Perez on 05-11-2023 SARS-CoV-2 (COVID-19) RNA OFELIA+probe Ql (Resp) [facility] Upper respiratory specimen i nfluenza A virus, influenza B virus, and severe acute respiratory syndromOrdered By: Chantal Perez on 05-11-2023 Upper respiratory specimen influenza A virus, influenza B virus, and severe acute respiratory syndrom [facility] Absolute lymphocyte countOrd ered By: David Mckinney on 05-01-2023 Lymphocytes Auto (Unsp spec) [#/Vol] 2.12 10*3/uL 0.83-4.51 [facility] Basophil percentageOrdered B y: David Mckinney on 05-01-2023 Basophils/100 WBC (Bld) 0.9 % 0-1 [facility] Bilirubin [Mass/Vol] 0.30 mg/dL 0.20-1.00 [facility] Comment on above: For patients on eltr ombopag therapy, use of Dimension [place] TBIL is not recommended. Chloride [Moles/Vol] 106 mmol/L 98-107 [facility] Eosinophils/100 WBC (Bld) 5.4 % 0-5 [facility] Glucose [Mass/Vol] 90 mg/dL 74-106 [facility] Neutrophils (Bld) [#/Vol] 4.3 10*3/uL 2.0-7.7 [facility] Neutrophils/100 WBC (Bld) 58.5 % 47-70 [facility] Potassium [Moles/Vol] 3.7 mmol/L 3.5-5.1 [facility] Protein [Mass/Vol] 7.8 g/dL 6.4-8.2 [facility] Sodium [Moles/Vol] 138 mmol/L 136-145 [facility] WBC (Bld) [#/Vol] 7.4 10*3/uL 4.4-11.0 [facility] Blood erythrocytes count (nu mber/volume)Ordered By: David Mckinney on 05-01-2023 RBC (Bld) [#/Vol] 4.73 10*6/uL 4.2-5.4 [facility] Blood hemoglobin measurement (mass/volume)Ordered By: David Mckinney on 05-01-2023 Hemoglobin (Bld) [Mass/Vol] 13.1 g/dL 12.0-15.0 [facility] Blood lymphocytes/100 leukoc ytesOrdered By: David Mckinney on 05-01-2023 Lymphocytes/100 WBC (Bld) 28.7 % 19-41 [facility] Blood monocytes/100 leukocyt esOrdered By: David Mckinney on 05-01-2023 Monocytes/100 WBC (Bld) 6.2 % 0-10 [facility] Blood platelet mean volumeOr dered By: David Mckinney on 05-01-2023 Platelet mean volume (Bld) [Entitic vol] 13.0 fL 6.2-12.0 [facility] Determination of erythrocyte mean corpuscular volume (MCV)Ordered By: David Mckinney on 05-01-2023 MCV (RBC) [Entitic vol] 88.8 fL 81-99 [facility] Hematocrit Auto (Bld) [Volum e fraction]Ordered By: David Mckinney on 05-01-2023 Hematocrit (Bld) [Volume fraction] 42.0 % 37-47 [facility] Laboratory - Chemistry and C hemistry - challengeOrdered By: David Mckinney on 05-01-2023 ALP [Catalytic activity/Vol] 95 U/L 45-117 [facility] ALT [Catalytic activity/Vol] 33 U/L 13-56 [facility] CO2 [Moles/Vol] 26.0 mmol/L 21.0-32.0 [facility] Globulin (S) [Mass/Vol] 3.9 g/dL 2.2-4.2 [facility] Urea nitrogen/Creatinine [Mass ratio] 25.6 mg/mg 10-20 [facility] - Hematology and Cell countsOrdered By: David Mckinney on 05-01-2023 Erythrocyte distribution width (RBC) [Entitic vol] 41.9 fL 35.1-43.9 [facility] Erythrocyte distribution width (RBC) [Ratio] 12.8 % 11.6-14.6 [facility] Immature granulocytes/100 WBC (Bld) 0.300 % 0.0-0.9 [facility] Comment on above: IG% - Immature Granu locytes (promyelocytes, myelocytes and metamyelocytes) > 1% indicates that a LEFT SHIFT is Present. MCH (RBC) [Entitic mass] 27.7 pg 27.0-32.0 [facility] Nucleated RBC/100 WBC (Bld) [Ratio] 0 % 0-5 [facility] MCHC Auto (RBC) [Mass/Vol]Or dered By: David Mckinney on 05-01-2023 MCHC (RBC) [Mass/Vol] 31.2 g/dL 32-36 [facility] No Panel InformationOrdered By: David Mckinney on 05-01-2023 Estimated GFR (MDRD) Amer 129 mL/min >60 [facility] Comment on above: GFR Calc Estimated GFR (MDRD) Non-Af Amer 107 mL/min >60 [facility] Comment on above: Non- GFR Calc Thyroid Stimulating Hormone (TSH) 0.63 uIU/mL 0.358-3.74 [facility] Platelets bldOrdered By: Maya Mckinney on 05-01-2023 Platelets (Bld) [#/Vol] 215 10*3/uL 150-450 [facility] Serum or plasma albumin roopa urement (mass/volume)Ordered By: David Mckinney on 05-01-2023 Albumin [Mass/Vol] 3.9 g/dL 3.2-5.0 [facility] Serum or plasma albumin/glob ulin mass ratioOrdered By: David Mckinney on 05-01-2023 Albumin/Globulin [Mass ratio] 1.0 {ratio} 0.9-2.4 [facility] Serum or plasma calcium roopa urement (mass/volume)Ordered By: David Mckinney on 05-01-2023 Calcium [Mass/Vol] 8.8 mg/dL 8.5-10.1 [facility] Serum or plasma creatinine m easurement (mass/volume)Ordered By: David Mckniney on 05-01-2023 Creatinine [Mass/Vol] 0.70 mg/dL 0.55-1.02 [facility] Comment on above: The validity of the calculated GFR & GFRAA in patients over 70 years has not been determined. Clinical correlation is essential. Serum or plasma prolactin me asurement (mass/volume)Ordered By: David Mckinney on 05-01-2023 Prolactin [Mass/Vol] 17.6 ng/mL [facility] Comment on above: NORMAL REFERENCE RAN GES FEMALE NON- 2.2 - 30.3 ng/mL 8.1 - 347.6 ng/mL POST-MENOPAUSAL 0.7 - 31.5 ng/mL MALE 2.5 - 17.4 ng/mL Serum or plasma urea nitroge n measurement (mass/volume)Ordered By: David Mckinney on 05-01-2023 Urea nitrogen [Mass/Vol] 18 mg/dL 7-18 [facility] Thin prep Papanicolaou smear with manual screeningOrdered By: David Mckinney on 05-01-2023 Thin prep Papanicolaou smear with manual screening 12 U/L 15-37 [facility] Thin prep Papanicolaou smear with manual screening 6 5-15 [facility] Absolute lymphocyte countOrd ered By: David Mckinney on 03-12-2023 Lymphocytes Auto (Unsp spec) [#/Vol] 1.89 10*3/uL 0.83-4.51 [facility] Alternaria alternata IgE ser umOrdered By: David Mckinney on 03-12-2023 A. alternata IgE Qn (S) <0.10 kU/L Class 0 [facility] A. alternata IgE Qn (S) Not Reportable [facility] Basophil percentageOrdered B y: David Mckinney on 03-12-2023 Basophils/100 WBC (Bld) 0.7 % 0-1 [facility] Eosinophils/100 WBC (Bld) 4.7 % 0-5 [facility] Neutrophils (Bld) [#/Vol] 3.4 10*3/uL 2.0-7.7 [facility] Neutrophils/100 WBC (Bld) 56.4 % 47-70 [facility] WBC (Bld) [#/Vol] 6.0 10*3/uL 4.4-11.0 [facility] Blood erythrocytes count (nu mber/volume)Ordered By: David Mckinney on 03-12-2023 RBC (Bld) [#/Vol] 4.94 10*6/uL 4.2-5.4 [facility] Blood hemoglobin measurement (mass/volume)Ordered By: David Mckinney on 03-12-2023 Hemoglobin (Bld) [Mass/Vol] 13.3 g/dL 12.0-15.0 [facility] Blood lymphocytes/100 leukoc ytesOrdered By: David Mckinney on 03-12-2023 Lymphocytes/100 WBC (Bld) 31.8 % 19-41 [facility] Blood monocytes/100 leukocyt esOrdered By: David Mckinney on 03-12-2023 Monocytes/100 WBC (Bld) 6.2 % 0-10 [facility] Blood platelet mean volumeOr dered By: David Mckinney on 03-12-2023 Platelet mean volume (Bld) [Entitic vol] 12.7 fL 6.2-12.0 [facility] Chocolate RASTOrdered By: Davidson Mckinney on 03-12-2023 Chocolate IgE Qn (S) <0.10 kU/L Class 0 [facility] Comment on above: Effective March 24, 2023 [id number] Allergen Profile, BasicFood be made non-orderable. [facility] offers [id number](14). Determination of erythrocyte mean corpuscular volume (MCV)Ordered By: David Mckinney on 03-12-2023 MCV (RBC) [Entitic vol] 86.0 fL 81-99 [facility] Hematocrit Auto (Bld) [Volum e fraction]Ordered By: David Mckinney on 03-12-2023 Hematocrit (Bld) [Volume fraction] 42.5 % 37-47 [facility] Laboratory - AllergyOrdered By: David Mckinney on 03-12-2023 Sweet gum IgE RAST class (S) <0.10 kU/L Class 0 [facility] - Hematology and Cell countsOrdered By: David Mckinney on 03-12-2023 Erythrocyte distribution width (RBC) [Entitic vol] 40.7 fL 35.1-43.9 [facility] Erythrocyte distribution width (RBC) [Ratio] 13.1 % 11.6-14.6 [facility] Immature granulocytes/100 WBC (Bld) 0.200 % 0.0-0.9 [facility] Comment on above: IG% - Immature Granu locytes (promyelocytes, myelocytes and metamyelocytes) > 1% indicates that a LEFT SHIFT is Present. MCH (RBC) [Entitic mass] 26.9 pg 27.0-32.0 [facility] Nucleated RBC/100 WBC (Bld) [Ratio] 0 % 0-5 [facility] - Miscellaneous t estsOrdered By: David Mckinney on 03-12-2023 Service comment (Unsp spec) [Interp] Comment . [facility] Comment on above: Levels of Specific I gE Class Description of Class ----- < 0.10 0 Negative 0.10 - 0.31 0/I Equivocal/Low 0.32 - 0.55 I Low 0.56 - 1.40 II Moderate 1.41 - 3.90 III High 3.91 - 19.00 IV Very High 19.01 - 100.00 V Very High >100.00 [facility] MCHC Auto (RBC) [Mass/Vol]Or dered By: David Mckinney on 03-12-2023 MCHC (RBC) [Mass/Vol] 31.3 g/dL 32-36 [facility] No Panel InformationOrdered By: David Mckinney on 03-12-2023 Aspergillus fumigatus Allergen <0.10 kU/L Class 0 [facility] Common Ragweed (Short) Allergen <0.10 kU/L Class 0 [facility] Gabonese Plantain Allergen (RAST) <0.10 kU/L Class 0 [facility] Maple ([place]) Allergen IgE Ab 0.27 kU/L Class 0/I [facility] Seafood Group Allergens (RAST) Negative . [facility] Comment on above: Allergens in this mi x are: Blue mussel Fish [place] Shrimp TunaEffective March 24, 2023 [id number] Food Mix(Seafoods) will be made non-orderable. [facility] [id number] Allergens(5). [place] Tree Allergen <0.10 kU/L Class 0 [facility] Cat Hair Allergen Not Reportable [facility] Immunoglobulin E See comment [facility] Comment on above: TEST RESULT LIMITSCl ass Description: Levels of Specific IgE Class Description of Class ----- < 0.10 0 Negative 0.10 - 0.31 0/I Equivocal/Low 0.32 - 0.55 I Low 0.56 - 1.40 II Moderate 1.41 - 3.90 III High 3.91 - 19.00 IV Very High19.01 - 100.00 V Very High >100.00 Very [id number] D pteronyssinus <0.10 kU/L Class 5W013-SuV D farinae <0.10 kU/L Class 8H398-BwK Cat Dander <0.10 kU/L Class 4W167-PlS Dog Dander <0.10 kU/L Class 1R979-AfK B[place] Grass 0.11 Abnormal kU/L Class 0/VA363-GxC [place] Grass, Perennial <0.10 kU/L Class 8Z761-NdX Reece Grass 0.10 Abnormal kU/L Class 0/TP763-JvN Bahia Grass <0.10 kU/L Class 0*X248-OjE Cockroach, Tunisian <0.10 kU/L Class 3S980-IeN Penicillium chrysogen <0.10 kU/L Class 9A966-NmZ Cladosporium herbarum <0.10 kU/L Class 9R722-XfN Aspergillus fumigatus <0.10 kU/L Class 7Q270-YbV Mucor racemosus <0.10 kU/L Class 9W948-CmW Alternaria alternata <0.10 kU/L Class 0V096-DcR Stemphylium herbarum <0.10 kU/L Class 6X821-NsN Elm, Tunisian 0.27 Abnormal kU/L Class 0/PB024-KfM Eucalyptus <0.10 kU/L Class 8W304-JaE Maple/[place] 0.37 Abnormal kU/L Class MK500-VtZ Strang, Argentine <0.10 kU/L Class 0*J414-YuJ Pepper Tree 0.20 Abnormal kU/L Class 0/I*O842-OlC Cheraw, Live/Radha <0.10 kU/L Class 3U062-AoV Privet, Common <0.10 kU/L Class 0*I805-RqN Bayberry/Sweet Gale <0.10 kU/L Class 0Q539-ZfA Palm, Batista <0.10 kU/L Class 6C692-IvY Ragweed, Short 0.11 Abnormal kU/L Class 0/PN782-JdL Plantain, Gabonese <0.10 kU/L Class 5V342-KyF Long's Quarters <0.10 kU/L Class 1B477-HnQ Sheep [place] <0.10 kU/L Class 0*N137-RwP Fennel, Dog <0.10 kU/L Class 0Tests with asterisk (*) were developed and had performancecharacteristics determined by [facility]. These tests have not been cleared or approved by the U.S. Food and Drug Administration.The FDA has determined that such clearance or approval is notnecessary. These tests are used for clinical purposes. These tests should not be regarded as investigational or for research. ____ TESTING PERFORMED AT [facility] [employer] [facility]. ORIGINAL REPORT ON FILE IN LAB CONTAINS ADDITIONAL TEST SITE INFORMATION. Mouse Urine Allergen IgE Antibody Not Reportable [facility] Platelets bldOrdered By: Maya Mckinney on 03-12-2023 Platelets (Bld) [#/Vol] 183 10*3/uL 150-450 [facility] Rough pigweed specific IgE a ntibody assayOrdered By: David Mckinney on 03-12-2023 Rough Pigweed IgE Qn (S) <0.10 kU/L Class 0 [facility] Serum Aspergillus fumigatus IgE antibody assay (units/volume)Ordered By: David Mckinney on 03-12-2023 A. fumigatus IgE Qn (S) Not Reportable [facility] Serum Bermuda grass IgE anti body assay (units/volume)Ordered By: David Mckinney on 03-12-2023 Bermuda grass IgE Qn (S) 0.12 kU/L Class 0/I [facility] Bermuda grass IgE Qn (S) Not Reportable [facility] Serum Cladosporium herbarum IgE antibody assay (units/volume)Ordered By: David Mckinney on 03-12-2023 C. herbarum IgE Qn (S) <0.10 kU/L Class 0 [facility] C. herbarum IgE Qn (S) Not Reportable [facility] Serum Dermatophagoides farin ae specific IgE antibody assay (units/volume)Ordered By: David Mckinney on 03-12-2023 Tunisian house dust mite IgE Qn (S) <0.10 kU/L Class 0 [facility] Serum house dust mi te IgE antibody assay (units/volume)Ordered By: David Mckinney on 03-12-2023 house dust mite IgE Qn (S) <0.10 kU/L Class 0 [facility] house dust mite IgE Qn (S) Not Reportable [facility] Serum Reece grass IgE anti body assay (units/volume)Ordered By: David Mckinney on 03-12-2023 Reece grass IgE Qn (S) 0.12 kU/L Class 0/I [facility] Serum [place] blue grass Ig E antibody assay (units/volume)Ordered By: David Mckinney on 03-12-2023 [place] blue grass IgE Qn (S) <0.10 kU/L Class 0 [facility] Serum Mucor racemosus IgE an tibody assay (units/volume)Ordered By: David Mckinney on 03-12-2023 Mucor racemosus IgE Qn (S) <0.10 kU/L Class 0 [facility] Serum Penicillium notatum Ig E antibody assay (units/volume)Ordered By: David Mckinney on 03-12-2023 P. notatum IgE Qn (S) <0.10 kU/L Class 0 [facility] Serum Periplaneta americana IgE antibody assay (units/volume)Ordered By: David Mckinney on 03-12-2023 Tunisian Cockroach IgE Qn (S) <0.10 kU/L Class 0 [facility] Serum Swiss thistle specif ic IgE antibody assayOrdered By: David Mckinney on 03-12-2023 Saltwort IgE Qn (S) Not Reportable [facility] Serum bahia grass IgE antibo dy assay (units/volume)Ordered By: David Mckinney on 03-12-2023 Bahia grass IgE Qn (S) <0.10 kU/L Class 0 [facility] Serum beef IgE antibody assa y (units/volume)Ordered By: David Mckinney on 03-12-2023 Beef IgE Qn (S) <0.10 kU/L Class 0 [facility] Serum birch specific IgE ant ibody assayOrdered By: David Mckinney on 03-12-2023 Silver Birch IgE Qn (S) Not Reportable [facility] Serum black walnut IgE antib pinky assay (units/volume)Ordered By: David Mckinney on 03-12-2023 Black [place] IgE Qn (S) 0.72 kU/L Class II [facility] Comment on above: Performed at: [address] [id number] Director: Jordan Chew MD, Phone: [phone] Black [place] IgE Qn (S) Not Reportable [facility] Serum cat dander IgE antibod y assay (units/volume)Ordered By: David Mckinney on 03-12-2023 Cat dander IgE Qn (S) <0.10 kU/L Class 0 [facility] Serum corn IgE antibody assa y (units/volume)Ordered By: David Mckinney on 03-12-2023 [place] IgE Qn (S) 0.60 kU/L Class II [facility] Serum cottonwood IgE antibod y assay (units/volume)Ordered By: David Mckinney on 03-12-2023 Brule IgE Qn (S) Not Reportable [facility] Serum cow milk IgE antibody assay (units/volume)Ordered By: David Mckinney on 03-12-2023 Cow milk IgE Qn (S) <0.10 kU/L Class [address] [facility] [place] dog epithelium IgE ant ibody assay (units/volume)Ordered By: David Mckinney on 03-12-2023 Dog epithelium IgE Qn (S) <0.10 kU/L Class 0 [facility] Serum hazelnut pollen IgE an tibody assay (units/volume)Ordered By: David Mckinney on 03-12-2023 Hazelnut Pollen IgE Qn (S) <0.10 kU/L Class 0 [facility] Serum mountain cedar specifi c IgE antibody assayOrdered By: David Mckinney on 03-12-2023 Mountain Juniper IgE Qn (S) <0.10 kU/L Class 0 [facility] Serum mugwort IgE antibody a ssay (units/volume)Ordered By: David Mckinney on 03-12-2023 Mugwort IgE Qn (S) <0.10 kU/L Class 0 [facility] Serum nettle IgE antibody as say (units/volume)Ordered By: David Mckinney on 03-12-2023 Nettle IgE Qn (S) <0.10 kU/L Class 0 [facility] Serum peanut IgE antibody as say (units/volume)Ordered By: David Mckinney on 03-12-2023 Peanut IgE Qn (S) 0.77 kU/L Class II [facility] Serum pecan or hickory nut I gE antibody assay (units/volume)Ordered By: David Mckinney on 03-12-2023 Pecan or [place] Nut IgE Qn (S) Not Reportable [facility] Serum pork IgE antibody assa y (units/volume)Ordered By: David Mckinney on 03-12-2023 Pork IgE Qn (S) <0.10 kU/L Class 0 [facility] Serum sheep sorrel IgE antib pinky assay (units/volume)Ordered By: David Mckinney on 03-12-2023 Sheep [place] IgE Qn (S) <0.10 kU/L Class 0 [facility] Sheep [place] IgE Qn (S) Not Reportable [facility] Serum soybean IgE antibody a ssay (units/volume)Ordered By: David Mckinney on 03-12-2023 Soybean IgE Qn (S) <0.10 kU/L Class 0 [facility] Serum prosper IgE antibody a ssay (units/volume)Ordered By: David Mckinney on 03-12-2023 Prosper IgE Qn (S) Not Reportable [facility] Serum wheat IgE antibody ass ay (units/volume)Ordered By: David Mckinney on 03-12-2023 Wheat IgE Qn (S) 0.16 kU/L Class 0/I [facility] Serum white deandre IgE antibody assay (units/volume)Ordered By: David Mckinney on 03-12-2023 White Deandre IgE Qn (S) Not Reportable [facility] Serum white elm IgE antibody assay (units/volume)Ordered By: David Mckinney on 03-12-2023 White Elm IgE Qn (S) 0.27 kU/L Class 0/I [facility] White Elm IgE Qn (S) Not Reportable [facility] Serum white hickory IgE anti body assay (units/volume)Ordered By: David Mckinney on 03-12-2023 White [place] IgE Qn (S) <0.10 kU/L Class 0 [facility] Serum white mulberry IgE ant ibody assay (units/volume)Ordered By: David Mckinney on 03-12-2023 White mulberry IgE Qn (S) 0.18 kU/L Class 0/I [facility] White mulberry IgE Qn (S) Not Reportable [facility] Serum white oak IgE antibody assay (units/volume)Ordered By: David Mckinney on 03-12-2023 [place] IgE Qn (S) <0.10 kU/L Class 0 [facility] Serum whole egg IgE antibody assay (units/volume)Ordered By: David Mckinney on 03-12-2023 Whole Egg IgE Qn (S) <0.10 kU/L Class 0 [facility] Stemphylium herbarum IgE ser umOrdered By: David Mckinney on 03-12-2023 Stemphylium botryosum IgE Qn (S) <0.10 kU/L Class 0 [facility] Influenza virus A and B and SARS-CoV-2 (COVID-19) Ag panel - Upper respiratory specimOrdered By: Margarita Griggs on 02-24-2023 SARS-CoV-2 (COVID-19) RNA OFELIA+probe Ql (Resp) [facility] SARS-CoV-2 (COVID-19) RNA OFELIA+probe Ql (Resp) [facility] Throat Streptococcus pyogene s antigen detection by immunofluorescenceOrdered By: Margarita Griggs on 02-24-2023 S. pyogenes Ag IF Ql (Throat) [facility] S. pyogenes Ag IF Ql (Throat) [facility] Absolute lymphocyte countOrd ered By: Zamzam Olson on 12-26-2022 Lymphocytes Auto (Unsp spec) [#/Vol] 1.94 10*3/uL 0.83-4.51 [facility] Basophil percentageOrdered B y: Zamzam Olson on 12-26-2022 Basophils/100 WBC (Bld) 1.2 % 0-1 [facility] Eosinophils/100 WBC (Bld) 5.6 % 0-5 [facility] Neutrophils (Bld) [#/Vol] 3.1 10*3/uL 2.0-7.7 [facility] Neutrophils/100 WBC (Bld) 52.9 % 47-70 [facility] WBC (Bld) [#/Vol] 5.9 10*3/uL 4.4-11.0 [facility] Blood erythrocytes count (nu mber/volume)Ordered By: Zamzam Olson on 12-26-2022 RBC (Bld) [#/Vol] 5.10 10*6/uL 4.2-5.4 [facility] Blood hemoglobin measurement (mass/volume)Ordered By: Zamzam Olson on 12-26-2022 Hemoglobin (Bld) [Mass/Vol] 14.0 g/dL 12.0-15.0 [facility] Blood lymphocytes/100 leukoc ytesOrdered By: Zamzam Olson on 12-26-2022 Lymphocytes/100 WBC (Bld) 33.0 % 19-41 [facility] Blood monocytes/100 leukocyt esOrdered By: Zamzam Olson on 12-26-2022 Monocytes/100 WBC (Bld) 7.1 % 0-10 [facility] Blood platelet mean volumeOr dered By: Zamzam Olson on 12-26-2022 Platelet mean volume (Bld) [Entitic vol] 12.6 fL 6.2-12.0 [facility] Culture, urineOrdered By: Ame Olson on 12-26-2022 Bacteria identified Cx Nom (U) Escherichia coli [facility] Determination of erythrocyte mean corpuscular volume (MCV)Ordered By: Zamzam Olson on 12-26-2022 MCV (RBC) [Entitic vol] 85.3 fL 81-99 [facility] Hematocrit Auto (Bld) [Volum e fraction]Ordered By: Zamzam Olson on 12-26-2022 Hematocrit (Bld) [Volume fraction] 43.5 % 37-47 [facility] Iron measurement (mass/mass) Ordered By: Zamzam Olson on 12-26-2022 Iron (Unsp spec) [Mass/Mass] 74 ug/dL 50-170 [facility] Laboratory - Hematology and Cell countsOrdered By: Zamzam Olson on 12-26-2022 Erythrocyte distribution width (RBC) [Entitic vol] 39.5 fL 35.1-43.9 [facility] Erythrocyte distribution width (RBC) [Ratio] 12.7 % 11.6-14.6 [facility] Immature granulocytes/100 WBC (Bld) 0.200 % 0.0-0.9 [facility] Comment on above: IG% - Immature Granu locytes (promyelocytes, myelocytes and metamyelocytes) > 1% indicates that a LEFT SHIFT is Present. MCH (RBC) [Entitic mass] 27.5 pg 27.0-32.0 [facility] Nucleated RBC/100 WBC (Bld) [Ratio] 0 % 0-5 [facility] MCHC Auto (RBC) [Mass/Vol]Or dered By: Zamzam Olson on 12-26-2022 MCHC (RBC) [Mass/Vol] 32.2 g/dL 32-36 [facility] No Panel InformationOrdered By: Zamzam Olson on 12-26-2022 Total Iron Binding Capacity 447 ug/dL 250-450 [facility] Platelets bldOrdered By: Elizabeth Olson on 12-26-2022 Platelets (Bld) [#/Vol] 215 10*3/uL 150-450 [facility] Serum or plasma ferritin naersh surement (mass/volume)Ordered By: Kaushalnora Wesley on 12-26-2022 Ferritin [Mass/Vol] 11 ng/mL 8-252 [facility] Serum or plasma iron saturat ion measurement (mass fraction)Ordered By: Kaushalnora Olson on 12-26-2022 Iron saturation [Mass fraction] 16.6 % 15.0-55.0 [facility] Cervical or vagninal specime n microscopic examination by cytology stain (reported asOrdered By: Jorge Ewing on 10-30-2022 Cytology report Cyto stain Doc (Cvx/Vag) Comment . [facility] Comment on above: The Pap smear is a s creening test designed to aid in thedetection of premalignant and malignant conditions of theuterine cervix. It is not a diagnostic procedure andshould not be used as the sole means of detecting cervicalcancer. Both false-positive and false-negative reports dooccur. Laboratory - CytologyOrdered By: Jorge Ewing on 10-30-2022 Jacker Feeder Cyto stain Nom (Cvx/Vag) [ID] Comment . [facility] Comment on above: Francesco Walsh totskylerologist (ASCP) Laboratory - Miscellaneous t estsOrdered By: Jorge Ewing on 10-30-2022 Service comment (Unsp spec) [Interp] Comment . [facility] Comment on above: This liquid based Th inPrep(R) pap test was screened withthe use of an image guided system. Service comment (Unsp spec) [Interp] . . [facility] No Panel InformationOrdered By: Jorge Ewing on 10-30-2022 Human Papillomavirus Screen Comment . [facility] Comment on above: The HPV DNA reflex c tenisha were not met with this specimenresult therefore, no HPV testing was performed.Performed at: [address] [id number] Director: Autumn Cancino MD, Phone: [phone] Pathology report final diagnosis Narrative Comment . [facility] Comment on above: NEGATIVE FOR INTRAEP ITHELIAL LESION OR MALIGNANCY.TRICHOMONAS VAGINALIS IS PRESENT. Culture, urineOrdered By: Dr Tameka Ewing on 08-17-2022 Bacteria identified Cx Nom (U) Positive [facility] Basophil percentageon 2021 Basophil percentage 10-25 SEEN /hpf 0-5 [facility] Work Phone: [phone] Bilirubin [Mass/Vol] 0.40 mg/dL 0.20-1.00 [facility] Work Phone: [phone] Comment on above: For patients on eltr ombopag therapy, use of Dimension [place] TBIL is not recommended. Chloride [Moles/Vol] 108 mmol/L 98-107 [facility] Work Phone: [phone] Glucose [Mass/Vol] 59 mg/dL 74-106 [facility] Work Phone: [phone] Potassium [Moles/Vol] 3.8 mmol/L 3.5-5.1 [facility] Work Phone: [phone] Protein [Mass/Vol] 6.6 g/dL 6.4-8.2 [facility] Work Phone: Sodium [Moles/Vol] 137 mmol/L 136-145 [facility] Work Phone: [phone] WBC (Bld) [#/Vol] 10.5 10*3/uL 4.4-11.0 [facility] Work Phone: Bilirubin Test strip Ql (U)o n 02-20-2022 Bilirubin Ql (U) Negative Negative [facility] Work Phone: [phone] Blood erythrocytes count (nu mber/volume)on 02-20-2022 RBC (Bld) [#/Vol] 3.83 10*6/uL 4.2-5.4 [facility] Work Phone: [phone] Blood hemoglobin measurement (mass/volume)on 02-20-2022 Hemoglobin (Bld) [Mass/Vol] 10.1 g/dL 12.0-15.0 [facility] Work Phone: Blood platelet mean volumeon 02-20-2022 Platelet mean volume (Bld) [Entitic vol] 12.8 fL 6.2-12.0 [facility] Work Phone: Determination of erythrocyte mean corpuscular volume (MCV)on 02-20-2022 MCV (RBC) [Entitic vol] 83.3 fL 81-99 [facility] Work Phone: Hematocrit Auto (Bld) [Volum e fraction]on 02-20-2022 Hematocrit (Bld) [Volume fraction] 31.9 % 37-47 [facility] Work Phone: Ketones Test strip Ql (U)on 02-20-2022 Ketones Ql (U) Negative Negative [facility] Work Phone: Laboratory - Chemistry and C hemistry - challengeon 02-20-2022 ALP [Catalytic activity/Vol] 194 U/L 45-117 [facility] Work Phone: ALT [Catalytic activity/Vol] 16 U/L 13-56 [facility] Work Phone: CO2 [Moles/Vol] 22.0 mmol/L 21.0-32.0 [facility] Work Phone: Globulin (S) [Mass/Vol] 4.0 g/dL 2.2-4.2 [facility] Work Phone: Urea nitrogen/Creatinine [Mass ratio] 18.0 mg/mg 10-20 [facility] Work Phone: Laboratory - Drug toxicology on 02-20-2022 Benzodiazepines Ql (U) Negative < 200 ng/mL [facility] Work Phone: Cannabinoids Screen Ql (U) Negative < 50 ng/mL [facility] Work Phone: Cocaine Ql (U) Negative < 300 ng/mL [facility] Work Phone: Opiates Ql (U) Negative < 300 ng/mL [facility] Work Phone: Laboratory - Hematology and Cell countson 02-20-2022 Erythrocyte distribution width (RBC) [Entitic vol] 44.0 fL 35.1-43.9 [facility] Work Phone: Erythrocyte distribution width (RBC) [Ratio] 14.6 % 11.6-14.6 [facility] Work Phone: MCH (RBC) [Entitic mass] 26.4 pg 27.0-32.0 [facility] Work Phone: MCHC Auto (RBC) [Mass/Vol]on 02-20-2022 MCHC (RBC) [Mass/Vol] 31.7 g/dL 32-36 [facility] Work Phone: Mucus LM Ql (Urine sed)on Mucus Ql (Urine sed) 1+ /hpf [facility] Work Phone: Nitrite Test strip Ql (U)on 02-20-2022 Nitrite Ql (U) Negative Negative [facility] Work Phone: No Panel Informationon 02-20 MDMA (Ecstasy) Screen Negative < 500 ng/mL [facility] Work Phone: Urine Barbiturates Screen Negative < 200 ng/mL [facility] Work Phone: Urine Drug Screen Comment [facility] Work Phone: Comment on above: CONFIRMATORY TESTING FOR ALL POSITIVE URINE DRUG SCREENRESULTS WILL ONLY BE SENT OUT UPON PHYSICIAN ORDER. VISTA Urine Drug Screen methods provide only preliminaryanalytical test results. A more specific alternate chemicalmethod must be used in order to obtain a confirmedanalytical result. Gas chromatography/mass spectrometery(GC/MS) is the preferred confirmatory method. Clinicalconsideration and professional judgement should be appliedto any drug of abuse test result, particularly whenpreliminary positive results are used. URINE TCA TESTING MUST BE ORDERED SEPARATELY. USE TESTMNEMONIC: [facility] Urine Methadone Screen Negative < 300 ng/mL [facility] Work Phone: Urine Trichomonas 0-5 SEEN /hpf None Seen [facility] Work Phone: Estimated Creatinine Clearance Calc 198.42 ml/min [facility] Work Phone: Estimated GFR (MDRD) Amer 259 mL/min >60 [facility] Work Phone: Comment on above: GFR Calc Estimated GFR (MDRD) Non-Af Amer 214 mL/min >60 [facility] Work Phone: Comment on above: Non- GFR Calc Platelets bldon 02-20-2022 Platelets (Bld) [#/Vol] 171 10*3/uL 150-450 [facility] Work Phone: Protein Test strip Ql (U)on 02-20-2022 Protein Ql (U) 15 mg/dl Negative [facility] Work Phone: Serum or plasma albumin roopa urement (mass/volume)on 02-20-2022 Albumin [Mass/Vol] 2.6 g/dL 3.2-5.0 [facility] Work Phone: Serum or plasma albumin/glob ulin mass ratioon 02-20-2022 Albumin/Globulin [Mass ratio] 0.6 {ratio} 0.9-2.4 [facility] Work Phone: Serum or plasma calcium roopa urement (mass/volume)on 02-20-2022 Calcium [Mass/Vol] 8.7 mg/dL 8.5-10.1 [facility] Work Phone: Serum or plasma creatinine m easurement (mass/volume)on 02-20-2022 Creatinine [Mass/Vol] 0.39 mg/dL 0.55-1.02 [facility] Work Phone: Comment on above: The validity of the calculated GFR & GFRAA in patients over 70 years has not been determined. Clinical correlation is essential. Serum or plasma urea nitroge n measurement (mass/volume)on 02-20-2022 Urea nitrogen [Mass/Vol] 7 mg/dL 7-18 [facility] Work Phone: Serum or plasma uric acid me asurement (mass/volume)on 02-20-2022 Urate [Mass/Vol] 3.9 mg/dL 2.6-6.0 [facility] Work Phone: Comment on above: The drugs N-Acetylcy steine and Metamizole may falsely depress this assay. Squamous epithelial cells de tection in urine sediment by light microscopyon 02-20-2022 Epithelial cells.squamous LM Ql (Urine sed) 10-25 SEEN /hpf 5-10 [facility] Work Phone: Thin prep Papanicolaou smear with manual screeningon 02-20-2022 Thin prep Papanicolaou smear with manual screening 16 U/L 15-37 [facility] Work Phone: Thin prep Papanicolaou smear with manual screening 7 5-15 [facility] Work Phone: Thin prep Papanicolaou smear with manual screening 170 U/L 84-246 [facility] Work Phone: Urine amphetamine measuremen t (moles/volume)on 02-20-2022 Amphetamine (U) [Moles/Vol] Negative <1000 ng/mL [facility] Work Phone: Urine blood detectionon - RBC Ql (U) 250 /ul Negative [facility] Work Phone: RBC Ql (U) 5-10 SEEN /hpf 0-5 [facility] Work Phone: Urine clarityon 02-20-2022 Clarity (U) Sl. Cloudy Clear [facility] Work Phone: Urine color determinationon 02-20-2022 Color (U) Yellow Yellow [facility] Work Phone: Urine creatinine measurement (mass/volume)on 02-20-2022 Creatinine (U) [Mass/Vol] 109.00 mg/dL NO RANGE EST. [facility] Work Phone: Urine glucose detectionon Glucose Ql (U) 250 mg/dl Normal [facility] Work Phone: Urine leukocyte esterase det ection by dipstickon 02-20-2022 Leukocyte esterase Test strip Ql (U) 500 /ul Negative [facility] Work Phone: Urine pHon 02-20-2022 pH (U) 6.0 [pH] 5.0 - 8.0 [facility] Work Phone: Urine phencyclidine (PCP) de tectionon 02-20-2022 Phencyclidine Ql (U) Negative < 25 ng/[facility]: Urine protein measurement (m ass/volume)on 02-20-2022 Protein (U) [Mass/Vol] 20.4 mg/dL 0.0-11.8 [facility] Work Phone: Urine protein/creatinine mas s ratioon 02-20-2022 Protein/Creatinine (U) [Mass ratio] 187 mg/g CRE 0-200 [facility] Work Phone: Urine sediment bacteria coun t by microscopy (number/high power field)on 02-20-2022 Bacteria LM.HPF (Urine sed) [#/Area] 4 /[HPF] None Seen [facility] Work Phone: Urine specific gravity measu rementon 02-20-2022 Specific gravity (U) [Rel density] 1.020 1.002-1.030 [facility] Work Phone: Urobilinogen Auto test strip Ql (U)on 02-20-2022 Urobilinogen Ql (U) 1 mg/dl Normal [facility] Work Phone: No Panel Informationon 02-17 Vaginal Amniotic Fluid Detection Negative Negative [facility] Work Phone: Comment on above: Amniotic fluid not p resent indicates No Rupture of FetalMembranes at time of specimen collection. Basophil percentageon 2021 WBC (Bld) [#/Vol] 9.9 10*3/uL 4.4-11.0 [facility] Work Phone: Blood erythrocytes count (nu mber/volume)on 12-13-2021 RBC (Bld) [#/Vol] 3.71 10*6/uL 4.2-5.4 [facility] Work Phone: Blood hemoglobin measurement (mass/volume)on 12-13-2021 Hemoglobin (Bld) [Mass/Vol] 9.9 g/dL 12.0-15.0 [facility] Work Phone: [phone] Blood platelet mean volumeon 12-13-2021 Platelet mean volume (Bld) [Entitic vol] 11.9 fL 6.2-12.0 [facility] Work Phone: Determination of erythrocyte mean corpuscular volume (MCV)on 12-13-2021 MCV (RBC) [Entitic vol] 85.2 fL 81-99 [facility] Work Phone: Gestational diabetes screen 1-hour screen with 50g oral glucose loadon 12-13-2021 Glucose 1 Hr post 50 g glucose PO [Mass/Vol] 129 mg/dL 70-140 [facility] Work Phone: [phone] Hematocrit Auto (Bld) [Volum e fraction]on 12-13-2021 Hematocrit (Bld) [Volume fraction] 31.6 % 37-47 [facility] Work Phone: Laboratory - Hematology and Cell countson 12-13-2021 Erythrocyte distribution width (RBC) [Entitic vol] 48.6 fL 35.1-43.9 [facility] Work Phone: Erythrocyte distribution width (RBC) [Ratio] 15.7 % 11.6-14.6 [facility] Work Phone: [phone] MCH (RBC) [Entitic mass] 26.7 pg 27.0-32.0 [facility] Work Phone: [phone] MCHC Auto (RBC) [Mass/Vol]on 12-13-2021 MCHC (RBC) [Mass/Vol] 31.3 g/dL 32-36 [facility] Work Phone: [phone] Platelets bldon 12-13-2021 Platelets (Bld) [#/Vol] 172 10*3/uL 150-450 [facility] Work Phone: Absolute lymphocyte counton 11-04-2021 Lymphocytes Auto (Unsp spec) [#/Vol] 2.73 10*3/uL 0.83-4.51 [facility] Work Phone: Basophil percentageon 2021 Basophils/100 WBC (Bld) 0.4 % 0-1 [facility] Work Phone: Eosinophils/100 WBC (Bld) 3.1 % 0-5 [facility] Work Phone: Neutrophils (Bld) [#/Vol] 5.5 10*3/uL 2.0-7.7 [facility] Work Phone: Neutrophils/100 WBC (Bld) 58.8 % 47-70 [facility] Work Phone: WBC (Bld) [#/Vol] 9.4 10*3/uL 4.4-11.0 [facility] Work Phone: Blood erythrocytes count (nu mber/volume)on 11-04-2021 RBC (Bld) [#/Vol] 3.42 10*6/uL 4.2-5.4 [facility] Work Phone: Blood hemoglobin measurement (mass/volume)on 11-04-2021 Hemoglobin (Bld) [Mass/Vol] 9.0 g/dL 12.0-15.0 [facility] Work Phone: Blood lymphocytes/100 leukoc yteson 11-04-2021 Lymphocytes/100 WBC (Bld) 29.1 % 19-41 [facility] Work Phone: Blood monocytes/100 leukocyt eson 11-04-2021 Monocytes/100 WBC (Bld) 7.4 % 0-10 [facility] Work Phone: Blood platelet mean volumeon 11-04-2021 Platelet mean volume (Bld) [Entitic vol] 11.7 fL 6.2-12.0 [facility] Work Phone: Determination of erythrocyte mean corpuscular volume (MCV)on 11-04-2021 MCV (RBC) [Entitic vol] 84.8 fL 81-99 [facility] Work Phone: Hematocrit Auto (Bld) [Volum e fraction]on 11-04-2021 Hematocrit (Bld) [Volume fraction] 29.0 % 37-47 [facility] Work Phone: [phone] Laboratory - Hematology and Cell countson 11-04-2021 Erythrocyte distribution width (RBC) [Entitic vol] 46.1 fL 35.1-43.9 [facility] Work Phone: Erythrocyte distribution width (RBC) [Ratio] 15.0 % 11.6-14.6 [facility] Work Phone: Immature granulocytes/100 WBC (Bld) 1.200 % 0.0-0.9 [facility] Work Phone: Comment on above: IG% - Immature Granu locytes (promyelocytes, myelocytes and metamyelocytes) > 1% indicates that a LEFT SHIFT is Present. MCH (RBC) [Entitic mass] 26.3 pg 27.0-32.0 [facility] Work Phone: Nucleated RBC/100 WBC (Bld) [Ratio] 0 % 0-5 [facility] Work Phone: MCHC Auto (RBC) [Mass/Vol]on 11-04-2021 MCHC (RBC) [Mass/Vol] 31.0 g/dL 32-36 [facility] Work Phone: Platelets bldon 11-04-2021 Platelets (Bld) [#/Vol] 184 10*3/uL 150-450 [facility] Work Phone: [phone] INR in Blood by Coagulation assayon 11-03-2021 INR Coag (Bld) [Relative time] 1.1 {INR} [facility] Work Phone: [phone] Laboratory - Coagulationon 0 11-03-2021 aPTT Coag (Bld) [Time] 27.0 s 24.1-36.2 [facility] Work Phone: PT Coag (PPP) [Time] 13.4 s 11.7-14.9 [facility] Work Phone: Laboratory - Drug toxicology on 11-03-2021 Amphetamines Ql (U) Negative <1000 ng/mL [facility] Work Phone: Benzodiazepines Ql (U) Negative < 200 ng/mL [facility] Work Phone: Cannabinoids Screen Ql (U) Negative < 50 ng/mL [facility] Work Phone: Cocaine Ql (U) Negative < 300 ng/mL [facility] Work Phone: Opiates Ql (U) Negative < 300 ng/mL [facility] Work Phone: No Panel Informationon 11-03 MDMA (Ecstasy) Screen Negative < 500 ng/mL [facility] Work Phone: Urine Barbiturates Screen Negative < 200 ng/mL [facility] Work Phone: Urine Drug Screen Comment [facility] Work Phone: Comment on above: CONFIRMATORY TESTING FOR ALL POSITIVE URINE DRUG SCREENRESULTS WILL ONLY BE SENT OUT UPON PHYSICIAN ORDER. VISTA Urine Drug Screen methods provide only preliminaryanalytical test results. A more specific alternate chemicalmethod must be used in order to obtain a confirmedanalytical result. Gas chromatography/mass spectrometery(GC/MS) is the preferred confirmatory method. Clinicalconsideration and professional judgement should be appliedto any drug of abuse test result, particularly whenpreliminary positive results are used. URINE TCA TESTING MUST BE ORDERED SEPARATELY. USE TESTMNEMONIC: [facility] Urine Methadone Screen Negative < 300 ng/mL [facility] Work Phone: Urine phencyclidine (PCP) de tectionon 11-03-2021 Phencyclidine Ql (U) Negative < 25 ng/mL [facility] Work Phone: Absolute lymphocyte counton 09-13-2021 Lymphocytes Auto (Unsp spec) [#/Vol] 1.80 10*3/uL 0.83-4.51 [facility] Work Phone: Basophil percentageon 2021 Basophils/100 WBC (Bld) 0.4 % 0-1 [facility] Work Phone: Chloride [Moles/Vol] 107 mmol/L 98-107 [facility] Work Phone: Eosinophils/100 WBC (Bld) 3.9 % 0-5 [facility] Work Phone: Glucose [Mass/Vol] 78 mg/dL 74-106 [facility] Work Phone: Neutrophils (Bld) [#/Vol] 5.6 10*3/uL 2.0-7.7 [facility] Work Phone: Neutrophils/100 WBC (Bld) 67.2 % 47-70 [facility] Work Phone: Potassium [Moles/Vol] 4.0 mmol/L 3.5-5.1 [facility] Work Phone: Sodium [Moles/Vol] 136 mmol/L 136-145 [facility] Work Phone: WBC (Bld) [#/Vol] 8.3 10*3/uL 4.4-11.0 [facility] Work Phone: Blood erythrocytes count (nu mber/volume)on 09-13-2021 RBC (Bld) [#/Vol] 4.28 10*6/uL 4.2-5.4 [facility] Work Phone: Blood hemoglobin measurement (mass/volume)on 09-13-2021 Hemoglobin (Bld) [Mass/Vol] 11.6 g/dL 12.0-15.0 [facility] Work Phone: Blood lymphocytes/100 leukoc yteson 09-13-2021 Lymphocytes/100 WBC (Bld) 21.8 % 19-41 [facility] Work Phone: Blood monocytes/100 leukocyt eson 09-13-2021 Monocytes/100 WBC (Bld) 6.1 % 0-10 [facility] Work Phone: Blood platelet mean volumeon 09-13-2021 Platelet mean volume (Bld) [Entitic vol] 10.7 fL 6.2-12.0 [facility] Work Phone: Determination of erythrocyte mean corpuscular volume (MCV)on 09-13-2021 MCV (RBC) [Entitic vol] 83.2 fL 81-99 [facility] Work Phone: Hematocrit Auto (Bld) [Volum e fraction]on 09-13-2021 Hematocrit (Bld) [Volume fraction] 35.6 % 37-47 [facility] Work Phone: Laboratory - Chemistry and C hemistry - challengeon 09-13-2021 CO2 [Moles/Vol] 26.0 mmol/L 21.0-32.0 [facility] Work Phone: Urea nitrogen/Creatinine [Mass ratio] 14.5 mg/mg 10-20 [facility] Work Phone: Laboratory - Hematology and Cell countson 09-13-2021 Erythrocyte distribution width (RBC) [Entitic vol] 47.2 fL 35.1-43.9 [facility] Work Phone: [phone] Erythrocyte distribution width (RBC) [Ratio] 15.8 % 11.6-14.6 [facility] Work Phone: Immature granulocytes/100 WBC (Bld) 0.600 % 0.0-0.9 [facility] Work Phone: Comment on above: IG% - Immature Granu locytes (promyelocytes, myelocytes and metamyelocytes) > 1% indicates that a LEFT SHIFT is Present. MCH (RBC) [Entitic mass] 27.1 pg 27.0-32.0 [facility] Work Phone: [phone] Nucleated RBC/100 WBC (Bld) [Ratio] 0 % 0-5 [facility] Work Phone: MCHC Auto (RBC) [Mass/Vol]on 09-13-2021 MCHC (RBC) [Mass/Vol] 32.6 g/dL 32-36 [facility] Work Phone: No Panel Informationon 09-13 Estimated Creatinine Clearance Calc 141.92 ml/min [facility] Work Phone: Estimated GFR (MDRD) Amer 174 mL/min >60 [facility] Work Phone: Comment on above: GFR Calc Estimated GFR (MDRD) Non-Af Amer 144 mL/min >60 [facility] Work Phone: Comment on above: Non- GFR Calc Platelets bldon 09-13-2021 Platelets (Bld) [#/Vol] 190 10*3/uL 150-450 [facility] Work Phone: Serum or plasma calcium roopa urement (mass/volume)on 09-13-2021 Calcium [Mass/Vol] 8.9 mg/dL 8.5-10.1 [facility] Work Phone: Serum or plasma creatinine m easurement (mass/volume)on 09-13-2021 Creatinine [Mass/Vol] 0.55 mg/dL 0.55-1.02 [facility] Work Phone: Comment on above: The validity of the calculated GFR & GFRAA in patients over 70 years has not been determined. Clinical correlation is essential. Serum or plasma urea nitroge n measurement (mass/volume)on 09-13-2021 Urea nitrogen [Mass/Vol] 8 mg/dL 7-18 [facility] Work Phone: Thin prep Papanicolaou smear with manual screeningon 09-13-2021 Thin prep Papanicolaou smear with manual screening 3 5-15 [facility] Work Phone: Absolute lymphocyte counton 08-01-2021 Lymphocytes Auto (Unsp spec) [#/Vol] 1.99 10*3/uL 0.83-4.51 [facility] Work Phone: Basophil percentageon 2021 Basophils/100 WBC (Bld) 0.4 % 0-1 [facility] Work Phone: Eosinophils/100 WBC (Bld) 4.4 % 0-5 [facility] Work Phone: Neutrophils (Bld) [#/Vol] 4.4 10*3/uL 2.0-7.7 [facility] Work Phone: Neutrophils/100 WBC (Bld) 60.7 % 47-70 [facility] Work Phone: WBC (Bld) [#/Vol] 7.2 10*3/uL 4.4-11.0 [facility] Work Phone: [phone] Bilirubin Test strip Ql (U)o n 08-01-2021 Bilirubin Ql (U) Negative Negative [facility] Work Phone: Blood erythrocytes count (nu mber/volume)on 08-01-2021 RBC (Bld) [#/Vol] 4.52 10*6/uL 4.2-5.4 [facility] Work Phone: [phone] Blood hemoglobin measurement (mass/volume)on 08-01-2021 Hemoglobin (Bld) [Mass/Vol] 12.2 g/dL 12.0-15.0 [facility] Work Phone: Blood lymphocytes/100 leukoc yteson 08-01-2021 Lymphocytes/100 WBC (Bld) 27.6 % 19-41 [facility] Work Phone: Blood monocytes/100 leukocyt eson 08-01-2021 Monocytes/100 WBC (Bld) 6.5 % 0-10 [facility] Work Phone: Blood platelet mean volumeon 08-01-2021 Platelet mean volume (Bld) [Entitic vol] 11.8 fL 6.2-12.0 [facility] Work Phone: [phone] Culture, urineon 08-01-2021 Bacteria identified Cx Nom (U) Positive [facility] Work Phone: [phone] Determination of erythrocyte mean corpuscular volume (MCV)on 08-01-2021 MCV (RBC) [Entitic vol] 80.5 fL 81-99 [facility] Work Phone: HIV 1 and HIV-2 antibody ass ay with HIV-1 p24 antigen detectionon 08-01-2021 HIV 1+2 Ab+HIV1 p24 Ag IA Ql Non-Reactive Nonreactive [facility] Work Phone: Hematocrit Auto (Bld) [Volum e fraction]on 08-01-2021 Hematocrit (Bld) [Volume fraction] 36.4 % 37-47 [facility] Work Phone: Ketones Test strip Ql (U)on 08-01-2021 Ketones Ql (U) Negative Negative [facility] Work Phone: Laboratory - Drug toxicology on 08-01-2021 Amphetamines Ql (U) Negative [facility] Work Phone: Benzodiazepines Ql (U) Negative [facility] Work Phone: Cannabinoids Screen Ql (U) Negative [facility] Work Phone: Cocaine Ql (U) Negative [facility] Work Phone: Opiates Ql (U) Negative [facility] Work Phone: Laboratory - Hematology and Cell countson 08-01-2021 Erythrocyte distribution width (RBC) [Entitic vol] 47.8 fL 35.1-43.9 [facility] Work Phone: Erythrocyte distribution width (RBC) [Ratio] 16.2 % 11.6-14.6 [facility] Work Phone: Immature granulocytes/100 WBC (Bld) 0.400 % 0.0-0.9 [facility] Work Phone: Comment on above: IG% - Immature Granu locytes (promyelocytes, myelocytes and metamyelocytes) > 1% indicates that a LEFT SHIFT is Present. MCH (RBC) [Entitic mass] 27.0 pg 27.0-32.0 [facility] Work Phone: Nucleated RBC/100 WBC (Bld) [Ratio] 0 % 0-5 [facility] Work Phone: MCHC Auto (RBC) [Mass/Vol]on 08-01-2021 MCHC (RBC) [Mass/Vol] 33.5 g/dL 32-36 [facility] Work Phone: Nitrite Test strip Ql (U)on 08-01-2021 Nitrite Ql (U) Negative Negative [facility] Work Phone: No Panel Informationon 08-01 Hepatitis B Surface Antigen Non-Reactive Nonreactive [facility] Work Phone: Hepatitis C Antibody Non-Reactive Nonreactive [facility] Work Phone: Comment on above: Non Reactive: < 0.8 Equivocal: >/= 0.8 to < 1.0 Reactive: >/= 1.0The [facility] recommends that a reactive/equivocal HCV antibody result be followed up by the HCV Nucleic Acid Amplificationtest (150957) Rubella IgG Antibody Reactive Nonreactive [facility] Work Phone: Comment on above: Antibody Results Int erpretation of Immune Status Non Reactive Presumed Non-Immune Equivocal Equivocal Reactive Presumed Immune Thyroid Stimulating Hormone (TSH) 0.43 uIU/mL 0.358-3.74 [facility] Work Phone: Urine Barbiturates Screen Negative [facility] Work Phone: Urine Drug Screen Comment [facility] Work Phone: Comment on above: CONFIRMATORY TESTING FOR ALL POSITIVE URINE DRUG SCREENRESULTS WILL ONLY BE SENT OUT UPON PHYSICIAN ORDER. VISTA Urine Drug Screen methods provide only preliminaryanalytical test results. A more specific alternate chemicalmethod must be used in order to obtain a confirmedanalytical result. Gas chromatography/mass spectrometery(GC/MS) is the preferred confirmatory method. Clinicalconsideration and professional judgement should be appliedto any drug of abuse test result, particularly whenpreliminary positive results are used. URINE TCA TESTING MUST BE ORDERED SEPARATELY. USE TESTMNEMONIC: [facility] Urine Methadone Screen Negative [facility] Work Phone: Urine Methamphetamine-MDMA Screen Negative [facility] Work Phone: Platelets bldon 08-01-2021 Platelets (Bld) [#/Vol] 208 10*3/uL 150-450 [facility] Work Phone: [phone] Protein Test strip Ql (U)on 08-01-2021 Protein Ql (U) Negative Negative [facility] Work Phone: [phone] Serum Treponema species anti body detectionon 08-01-2021 Treponema sp Ab Ql (S) Non-Reactive [facility] Work Phone: [phone] Urine blood detectionon - RBC Ql (U) Negative Negative [facility] Work Phone: [phone] Urine clarityon 08-01-2021 Clarity (U) Sl. Cloudy Clear [facility] Work Phone: [phone] Urine color determinationon 08-01-2021 Color (U) Yellow Yellow [facility] Work Phone: [phone] Urine glucose detectionon Glucose Ql (U) Normal mg/dl Normal [facility] Work Phone: [phone] Urine leukocyte esterase det ection by dipstickon 08-01-2021 Leukocyte esterase Test strip Ql (U) 100 /ul Negative [facility] Work Phone: [phone] Urine pHon 08-01-2021 pH (U) 8.0 [pH] [facility] Work Phone: [phone] Urine phencyclidine (PCP) de tectionon 08-01-2021 Phencyclidine Ql (U) Negative [facility] Work Phone: [phone] Urine specific gravity measu rementon 08-01-2021 Specific gravity (U) [Rel density] 1.015 [facility] Work Phone: [phone] Urobilinogen Auto test strip Ql (U)on 08-01-2021 Urobilinogen Ql (U) Normal mg/dl Normal [facility] Work Phone: [phone] No Panel Informationon 07-19 POC SARS CoV-2 Antigen Negative [facility] Work Phone: [phone] Serum or plasma choriogonado tropin detectionon 07-09-2021 HCG ( test) Ql 11554 mIU/mL <4 [facility] Work Phone: Comment on above: hCG levels with Gest ational AgeGestational Age hCG mIU/mL (IU/L)0.2 - 1 week 5 - 501-2 weeks 50 - 5002-3 weeks 100 - 90607-4 weeks 500 - 426108-7 weeks 1000 - 237990-3 weeks 04089 - 100,0006-8 weeks 37583 - 200,0002-3 months 26246 - 100,000 No Panel Information Group B Streptococcus Culture Group B Beta Streptococcus is not isolated. [facility] Work Phone: Vital Signs Date Time Vital Sign Value Performing Clinician Facility 11-18-2024 13:12-0400 Body height 165.1 cm Johana Turner BARTENDER MANAGER.CNM Work Phone: [facility] 11-18-2024 13:12-0400 Body mass index (BMI) [Ratio] 26.79 kg/m2 Johana Turner BARTENDER MANAGER.CNM Work Phone: [facility] 11-18-2024 13:12-0400 Body weight 73.03 kg Johana Turner BARTENDER MANAGER.CNM Work Phone: [facility] 11-18-2024 13:12-0400 Diastolic blood pressure 82 mm[Hg] Johana Plotts BARTENDER MANAGER.CNM Work Phone: [facility] 11-18-2024 13:12-0400 Systolic blood pressure 118 mm[Hg] Johana Turner BARTENDER MANAGER.CNM Work Phone: [facility] 10-12-2024 01:32-0400 Diastolic blood pressure 89 mm[Hg] Dr. David Mckinney MD Work Phone: [facility] 10-12-2024 01:32-0400 Heart rate 83 /min Dr. David Mckinney MD Work Phone: [facility] 10-12-2024 01:32-0400 Respiratory rate 12 /min Dr. David Mckinney MD Work Phone: [facility] 10-12-2024 01:32-0400 SaO2% (BldA) [Mass fraction] 97 % Dr. David Mckinney MD Work Phone: [facility] 10-12-2024 01:32-0400 Systolic blood pressure 136 mm[Hg] Dr. David Easton Work Phone: [phone] [place] [address] 10-11-2024 23:39-0400 Body height 165.[address] David Mckinney MD Work Phone: [phone] [place] [address] 10-11-2024 23:39-0400 Body mass index (BMI) [Ratio] 26.7 kg/m2 Dr. David Mckinney MD Work Phone: [phone])[phone] [place] [address] 10-11-2024 23:39-0400 Body temperature 97.8 [degF] Dr. David Mckinney MD Work Phone: [phone])459-080703 [place] [address] 10-11-2024 23:39-0400 Body weight 72.[address] David Mckinney MD Work Phone: 0(051)802-423334 [place] [address] 10-02-2024 23:04-0400 Body temperature 96.8 [degF] Dr. David Mckinney MD Work Phone: 8(859)980-388834 [place] [address] 10-02-2024 23:04-0400 Diastolic blood pressure 80 mm[Hg] Dr. David Mckinney MD Work Phone: 6(093)795-386834 [place] [address] 10-02-2024 23:04-0400 Heart rate 100 /min Dr. David Mckinney MD Work Phone: 3(058)919-535734 [place] [address] 10-02-2024 23:04-0400 Respiratory rate 16 /min Dr. David Mckinney MD Work Phone: 0(672)653-921834 [place] [address] 10-02-2024 23:04-0400 SaO2% (BldA) [Mass fraction] 98 % Dr. David Mckinney MD Work Phone: 2(174)310-613034 [place] [address] 10-02-2024 23:04-0400 Systolic blood pressure 132 mm[Hg] Dr. David Easton Work Phone: 0(074)506-402934 [place] [address] 10-02-2024 22:37-0400 Body height 165.[address] David Mckinney MD Work Phone: [facility] 10-02-2024 22:37-0400 Body mass index (BMI) [Ratio] 26.1 kg/m2 Dr. David Mckinney MD Work Phone: [facility] 10-02-2024 22:37-0400 Body weight 71.[address] David Mckinney MD Work Phone: [facility] 09-16-2024 14:38-0400 Body mass index (BMI) [Ratio] 27.88 kg/m2 Hortencia Gould BARTENDER MANAGER.NEON PU[employer]ER Work Phone: [facility] 09-16-2024 14:38-0400 Body weight 73.66 kg Hortencia Gould BARTENDER MANAGER.[employer]ON [employer] Work Phone: [facility] 09-16-2024 14:38-0400 Diastolic blood pressure 65 mm[Hg] Hortencia Gould BARTENDER MANAGER.[employer]ON PU[employer]ER Work Phone: [facility] 09-16-2024 14:38-0400 Systolic blood pressure 106 mm[Hg] Hortencia Gould BARTENDER MANAGER.[employer]ON PU[employer]ER Work Phone: [facility] 07-29-2024 13:20-0500 Body height 162.6 cm Sharda Grenola BARTENDER MANAGER.NEON PU[employer]ER Work Phone: [facility] 07-29-2024 13:20-0500 Body mass index (BMI) [Ratio] 29.01 kg/m2 Sharda Grenola BARTENDER MANAGER.[employer]ON PU[employer]ER Work Phone: [facility] 07-29-2024 13:20-0500 Body weight 76.66 kg Sharda Grenola BARTENDER MANAGER.[employer]ON PU[employer]ER Work Phone: [facility] 07-29-2024 13:20-0500 Diastolic blood pressure 76 mm[Hg] Sharda Grenola BARTENDER MANAGER.NEON PU[employer]ER Work Phone: [facility] 07-29-2024 13:20-0500 Systolic blood pressure 112 mm[Hg] Sharda Anjum BARTENDER MANAGER.NEON PU[employer]ER Work Phone: [facility] 07-01-2024 11:22-0500 Body mass index (BMI) [Ratio] 28.97 kg/m2 Jeanette Patel MD Work Phone: [facility] 07-01-2024 11:22-0500 Body weight 76.57 kg Jeanette Patel MD Work Phone: [facility] 07-01-2024 11:22-0500 Diastolic blood pressure 84 mm[Hg] Jeanette Patel MD Work Phone: [facility] 07-01-2024 11:22-0500 Systolic blood pressure 120 mm[Hg] Jeanette Patel MD Work Phone: [facility] 06-19-2024 14:07-0500 Diastolic blood pressure 86 mm[Hg] Dr. Dvaid Mckinney MD Work Phone: [facility] 06-19-2024 14:07-0500 Heart rate 76 /min Dr. David Mckinney MD Work Phone: [facility] 06-19-2024 14:07-0500 Systolic blood pressure 135 mm[Hg] Dr. David Easton Work Phone: [facility] 06-19-2024 14:00-0500 Body temperature 98 [degF] Dr. David Mckinney MD Work Phone: [facility] 06-19-2024 14:00-0500 Respiratory rate 16 /min Dr. David Mckinney MD Work Phone: [facility] 06-19-2024 04:05-0500 SaO2% (BldA) [Mass fraction] 97 % Dr. David Mckinney MD Work Phone: [facility] 06-17-2024 11:34-0500 Body mass index (BMI) [Ratio] 31.7 kg/m2 Dr. David Mckinney MD Work Phone: [facility] 06-17-2024 11:34-0500 Body weight 86.[address] David Mckinney MD Work Phone: [facility] 06-17-2024 08:46-0500 Body mass index (BMI) [Ratio] 32.61 kg/m2 Nst Wstr Work Phone: [facility] 06-17-2024 08:46-0500 Body weight 86.18 kg Nst Wstr Work Phone: [facility] 06-17-2024 08:46-0500 Diastolic blood pressure 88 mm[Hg] Nst Wstr Work Phone: [facility] 06-17-2024 08:46-0500 Systolic blood pressure 131 mm[Hg] Nst Wstr Work Phone: [facility] 06-11-2024 10:53-0500 Body mass index (BMI) [Ratio] 33.3 kg/m2 Sarah Solomon MD Work Phone: [facility] 06-11-2024 10:53-0500 Body weight 88 kg Sarah Solomon MD Work Phone: [facility] 06-11-2024 10:53-0500 Diastolic blood pressure 82 mm[Hg] Sarah Solomon MD Work Phone: [facility] 06-11-2024 10:53-0500 Systolic blood pressure 124 mm[Hg] Sarah Solomon MD Work Phone: [facility] 06-03-2024 13:57-0500 Body mass index (BMI) [Ratio] 33.47 kg/m2 Halle Orellana APRN.NEON PUMPER Work Phone: [facility] 06-03-2024 13:57-0500 Body weight 88.45 kg Hallelobo Orellana BARTENDER MANAGER.NEON PU[employer]ER Work Phone: [facility] 06-03-2024 13:57-0500 Diastolic blood pressure 83 mm[Hg] Halle Haury BARTENDER MANAGER.[employer]ON PU[employer]ER Work Phone: [facility] 06-03-2024 13:57-0500 Systolic blood pressure 121 mm[Hg] Halle Haury BARTENDER MANAGER.[employer]ON PU[employer]ER Work Phone: [facility] 05-25-2024 13:29-0500 Body mass index (BMI) [Ratio] 33.64 kg/m2 Jeanette Patel MD Work Phone: [facility] 05-25-2024 13:29-0500 Body weight 88.91 kg Jeanette Patel MD Work Phone: [facility] 05-25-2024 13:29-0500 Diastolic blood pressure 79 mm[Hg] Jeanette Patel MD Work Phone: [facility] Comment on above: machine (LT) arm 05-25-2024 13:29-0500 Systolic blood pressure 122 mm[Hg] Jeanette Patel MD Work Phone: [facility] Comment on above: machine (LT) arm 05-12-2024 15:35-0500 Body mass index (BMI) [Ratio] 31.93 kg/m2 Sarah Solomon MD Work Phone: [facility] 05-12-2024 15:35-0500 Body weight 84.37 kg Sarah Solomon MD Work Phone: [facility] 05-12-2024 15:35-0500 Diastolic blood pressure 74 mm[Hg] Sarah Solomon MD Work Phone: [facility] 05-12-2024 15:35-0500 Systolic blood pressure 110 mm[Hg] Sarah Solomon MD Work Phone: [facility] 04-28-2024 13:36-0500 Body mass index (BMI) [Ratio] 31.76 kg/m2 Margarita Alcala MD Work Phone: [facility] 04-28-2024 13:36-0500 Body weight 83.92 kg Margarita Alcala MD Work Phone: [facility] 04-28-2024 13:36-0500 Diastolic blood pressure 78 mm[Hg] Margarita Alcala MD Work Phone: [facility] 04-28-2024 13:36-0500 Systolic blood pressure 122 mm[Hg] Margarita Alcala MD Work Phone: [facility] 04-14-2024 10:28-0400 Body mass index (BMI) [Ratio] 30.97 kg/m2 Margarita Alcala MD Work Phone: [facility] 04-14-2024 10:28-0400 Body weight 81.83 kg Margarita Alcala MD Work Phone: [facility] 04-14-2024 10:28-0400 Diastolic blood pressure 62 mm[Hg] Margarita Alcala MD Work Phone: [facility] 04-14-2024 10:28-0400 Systolic blood pressure 100 mm[Hg] Margarita Alcala MD Work Phone: [facility] 04-02-2024 16:17-0400 Body mass index (BMI) [Ratio] 30.73 kg/m2 Marcela Connors BARTENDER MANAGER.CNM Work Phone: [facility] 04-02-2024 16:17-0400 Body weight 81.19 kg Marcela Connors BARTENDER MANAGER.CNM Work Phone: [facility] 04-02-2024 16:17-0400 Diastolic blood pressure 68 mm[Hg] Marcela Connors BARTENDER MANAGER.CNM Work Phone: [facility] 04-02-2024 16:17-0400 Systolic blood pressure 116 mm[Hg] Marcela Connors BARTENDER MANAGER.CNM Work Phone: [facility] 03-17-2024 15:01-0400 Body mass index (BMI) [Ratio] 30.04 kg/m2 Jt Lugo MD Work Phone: [facility] 03-17-2024 15:01-0400 Body weight 79.38 kg Jt Lugo MD Work Phone: [facility] 03-17-2024 15:01-0400 Diastolic blood pressure 62 mm[Hg] Jt Lugo MD Work Phone: [facility] 03-17-2024 15:01-0400 Systolic blood pressure 114 mm[Hg] Jt Lugo MD Work Phone: [facility] 02-17-2024 11:06-0400 Body mass index (BMI) [Ratio] 29.7 kg/m2 Margarita Alcala MD Work Phone: [facility] 02-17-2024 11:06-0400 Body weight 78.47 kg Margarita Alcala MD Work Phone: [facility] 02-17-2024 11:06-0400 Diastolic blood pressure 76 mm[Hg] Margarita Alcala MD Work Phone: [facility] 02-17-2024 11:06-0400 Systolic blood pressure 116 mm[Hg] Margarita Alcala MD Work Phone: [facility] 02-17-2024 08:30-0400 Body mass index (BMI) [Ratio] 29.7 kg/m2 Tyler Farrell MD Work Phone: [facility] 02-17-2024 08:30-0400 Body weight 78.47 kg Tyler Farrell MD Work Phone: [facility] 02-17-2024 08:30-0400 Diastolic blood pressure 76 mm[Hg] Tyler Easton Work Phone: [facility] 02-17-2024 08:30-0400 Systolic blood pressure 116 mm[Hg] Tyler Farrell MD Work Phone: [facility] 01-20-2024 14:48-0400 Body weight 80.2872 kg HALLE REYNA [facility] Comment on above: Order Comment: Specimen Type: BLOOD SPEC IMENOrdering Facility: [facility] Address: [address] [place] [id number] Performed By: #### S EQ2 ####[facility] LABCLIA [id number] [place] [address] 01-20-2024 14:21-0400 Body mass index (BMI) [Ratio] 29.18 kg/m2 Sarah Solomon MD Work Phone: [facility] 01-20-2024 14:21-0400 Body weight 77.11 kg Sarah Solomon MD Work Phone: [facility] 01-20-2024 14:21-0400 Diastolic blood pressure 78 mm[Hg] Sarah Solomon MD Work Phone: [facility] 01-20-2024 14:21-0400 Systolic blood pressure 114 mm[Hg] Sarah Solomon MD Work Phone: [facility] 01-01-2024 10:39-0400 Body weight 80.2872 kg HALLE ORELLANA [facility] Comment on above: Order Comment: Specimen Type: BLOOD SPEC IMENOrdering Facility: [facility] Address: [address] [place] [address] Performed By: #### S EQ1 ####[employer] LABCLIA [id number] [place] [address] 01-01-2024 09:55-0400 Body mass index (BMI) [Ratio] 30.38 kg/m2 Jeanette Patel MD Work Phone: [facility] 01-01-2024 09:55-0400 Body weight 80.29 kg Jeanette Patel MD Work Phone: [facility] 01-01-2024 09:55-0400 Diastolic blood pressure 68 mm[Hg] Jeanette Patel MD Work Phone: [facility] 01-01-2024 09:55-0400 Systolic blood pressure 110 mm[Hg] Jeanette Patel MD Work Phone: [facility] 12-01-2023 12:02-0400 Body mass index (BMI) [Ratio] 30.73 kg/m2 Tyshawn Lorenzana MD Work Phone: [facility] 12-01-2023 12:02-0400 Body weight 81.19 kg Tyshawn Lorenzana MD Work Phone: [facility] 12-01-2023 12:02-0400 Diastolic blood pressure 76 mm[Hg] Tyshawn Lorenzana MD Work Phone: [facility] 12-01-2023 12:02-0400 Systolic blood pressure 112 mm[Hg] Tyshawn Lorenzana MD Work Phone: [facility] 11-13-2023 14:35-0400 Body height 162.6 cm Sharda Grenola BARTENDER MANAGER.NEON PUMPER Work Phone: [facility] 11-13-2023 14:35-0400 Body mass index (BMI) [Ratio] 30.52 kg/m2 Sharda Anjum BARTENDER MANAGER.NEON PUMPER Work Phone: [facility] 11-13-2023 14:35-0400 Body weight 80.65 kg Sharda Anjum BARTENDER MANAGER.NEON PUMPER Work Phone: [facility] 11-13-2023 14:35-0400 Diastolic blood pressure 80 mm[Hg] Sharda Grenola BARTENDER MANAGER.NEON PUMPER Work Phone: [facility] 11-13-2023 14:35-0400 Systolic blood pressure 120 mm[Hg] Sharda Anjum BARTENDER MANAGER.NEON PUMPER Work Phone: [facility] 08-10-2023 12:47-0500 Body temperature 98.1 [degF] [facility] 08-10-2023 12:47-0500 Diastolic blood pressure 87 mm[Hg] [facility] 08-10-2023 12:47-0500 Heart rate 62 /min [facility] 08-10-2023 12:47-0500 Respiratory rate 14 /min [facility] 08-10-2023 12:47-0500 SaO2% (BldA) [Mass fraction] 100 % [facility] 08-10-2023 12:47-0500 Systolic blood pressure 124 mm[Hg] [facility] 08-10-2023 10:18-0500 Body height 167.64 cm [facility] 08-10-2023 10:18-0500 Body mass index (BMI) [Ratio] 30.2 kg/m2 [facility] 08-10-2023 10:18-0500 Body weight 84.91 kg [facility] 07-17-2023 15:42-0500 Body height 167.64 cm [facility] 07-17-2023 15:42-0500 Body mass index (BMI) [Ratio] 30.1 kg/m2 [facility] 07-17-2023 15:42-0500 Body temperature 97.6 [degF] [facility] 07-17-2023 15:42-0500 Body weight 84.68 kg [facility] 07-17-2023 15:42-0500 Diastolic blood pressure 87 mm[Hg] [facility] 07-17-2023 15:42-0500 Heart rate 89 /min [facility] 07-17-2023 15:42-0500 Respiratory rate 18 /min [facility] 07-17-2023 15:42-0500 SaO2% (BldA) [Mass fraction] 100 % [facility] 07-17-2023 15:42-0500 Systolic blood pressure 121 mm[Hg] [facility] 06-10-2023 10:55-0500 Body height 167.64 cm [facility] 06-10-2023 10:55-0500 Body mass index (BMI) [Ratio] 29.4 kg/m2 [facility] 06-10-2023 10:55-0500 Body temperature 97.1 [degF] [facility] 06-10-2023 10:55-0500 Body weight 82.59 kg [facility] 06-10-2023 10:55-0500 Diastolic blood pressure 82 mm[Hg] [facility] 06-10-2023 10:55-0500 Heart rate 74 /min [facility] 06-10-2023 10:55-0500 Respiratory rate 16 /min [facility] 06-10-2023 10:55-0500 SaO2% (BldA) [Mass fraction] 100 % [facility] 06-10-2023 10:55-0500 Systolic blood pressure 118 mm[Hg] [facility] 05-11-2023 17:06-0500 Body height 167.64 cm [facility] 05-11-2023 17:06-0500 Body mass index (BMI) [Ratio] 29.5 kg/m2 [facility] 05-11-2023 17:06-0500 Body temperature 97.5 [degF] [facility] 05-11-2023 17:06-0500 Body weight 83 kg [facility] 05-11-2023 17:06-0500 Diastolic blood pressure 98 mm[Hg] [facility] 05-11-2023 17:06-0500 Heart rate 101 /min [facility] 05-11-2023 17:06-0500 Respiratory rate 16 /min [facility] 05-11-2023 17:06-0500 SaO2% (BldA) [Mass fraction] 98 % [facility] 05-11-2023 17:06-0500 Systolic blood pressure 119 mm[Hg] [facility] 02-24-2023 15:52-0400 Body height 167.64 cm [facility] 02-24-2023 15:52-0400 Body mass index (BMI) [Ratio] 29 kg/m2 [facility] 02-24-2023 15:52-0400 Body temperature 97.3 [degF] [facility] 02-24-2023 15:52-0400 Body weight 81.78 kg [facility] 02-24-2023 15:52-0400 Diastolic blood pressure 79 mm[Hg] [facility] 02-24-2023 15:52-0400 Heart rate 106 /min [facility] 02-24-2023 15:52-0400 Respiratory rate 18 /min [facility] 02-24-2023 15:52-0400 SaO2% (BldA) [Mass fraction] 98 % [facility] 02-24-2023 15:52-0400 Systolic blood pressure 120 mm[Hg] [facility] 01-08-2023 16:23-0400 Body temperature 97.8 [degF] [facility] 01-08-2023 16:23-0400 Diastolic blood pressure 76 mm[Hg] [facility] 01-08-2023 16:23-0400 Heart rate 78 /min [facility] 01-08-2023 16:23-0400 Respiratory rate 14 /min [facility] 01-08-2023 16:23-0400 SaO2% (BldA) [Mass fraction] 99 % [facility] 01-08-2023 16:23-0400 Systolic blood pressure 126 mm[Hg] [facility] 01-08-2023 15:15-0400 Body height 167.64 cm [facility] 01-08-2023 15:15-0400 Body mass index (BMI) [Ratio] 29.6 kg/m2 [facility] 01-08-2023 15:15-0400 Body weight 83.27 kg [facility] 06-07-2022 18:58-0500 Body temperature 98.6 [degF] Everardo Patel APRN.NEON PUMPER Work Phone: [facility] 06-07-2022 18:58-0500 Body weight 78.74 kg Everardo Patel APRN.NEON PUMPER Work Phone: [facility] 06-07-2022 18:58-0500 Diastolic blood pressure 84 mm[Hg] Everardo Patel APRN.NEON PUMPER Work Phone: [facility] 06-07-2022 18:58-0500 Heart rate 66 /min Everardo Patel APRN.NEON PUMPER Work Phone: [facility] 06-07-2022 18:58-0500 Respiratory rate 18 /min Everardo Patel APRN.NEON PUMPER Work Phone: [facility] 06-07-2022 18:58-0500 SaO2% (BldA) [Mass fraction] 100 % Everardo Patel APRN.NEON PUMPER Work Phone: [facility] 06-07-2022 18:58-0500 Systolic blood pressure 136 mm[Hg] Everardo Patel APRN.NEON PUMPER Work Phone: [facility] 02-22-2022 16:09-0400 Body temperature 98.7 [degF] [facility] Work Phone: 02-22-2022 16:09-0400 Diastolic blood pressure 77 mm[Hg] [facility] Work Phone: 02-22-2022 16:09-0400 Heart rate 72 /min [facility] Work Phone: 02-22-2022 16:09-0400 Respiratory rate 16 /min [facility] Work Phone: 02-22-2022 16:09-0400 SaO2% (BldA) [Mass fraction] 98 % [facility] Work Phone: 02-22-2022 16:09-0400 Systolic blood pressure 116 mm[Hg] [facility] Work Phone: 02-20-2022 16:39-0400 Body height 165.1 cm [facility] Work Phone: 02-20-2022 16:39-0400 Body mass index (BMI) [Ratio] 33.1 kg/m2 [facility] Work Phone: 02-20-2022 16:39-0400 Body weight 90.26 kg [facility] Work Phone: 02-17-2022 14:57-0400 Heart rate 95 /min [facility] Work Phone: 02-17-2022 14:57-0400 SaO2% (BldA) [Mass fraction] 97 % [facility] Work Phone: 02-17-2022 13:22-0400 Body temperature 98.4 [degF] [facility] Work Phone: 02-17-2022 13:22-0400 Diastolic blood pressure 69 mm[Hg] [facility] Work Phone: 02-17-2022 13:22-0400 Systolic blood pressure 139 mm[Hg] [facility] Work Phone: 02-17-2022 12:53-0400 Body height 165.1 cm [facility] Work Phone: 02-17-2022 12:53-0400 Body mass index (BMI) [Ratio] 33.1 kg/m2 [facility] Work Phone: 02-17-2022 12:53-0400 Body weight 90.26 kg [facility] Work Phone: 12-22-2021 21:18-0400 Body height 165.1 cm [facility] Work Phone: 12-22-2021 21:18-0400 Body mass index (BMI) [Ratio] 31.6 kg/m2 [facility] Work Phone: 12-22-2021 21:18-0400 Body temperature 97.8 [degF] [facility] Work Phone: 12-22-2021 21:18-0400 Body weight 86.18 kg [facility] Work Phone: 12-22-2021 21:18-0400 Diastolic blood pressure 96 mm[Hg] [facility] Work Phone: 12-22-2021 21:18-0400 Heart rate 89 /min [facility] Work Phone: 12-22-2021 21:18-0400 Respiratory rate 16 /min [facility] Work Phone: 12-22-2021 21:18-0400 SaO2% (BldA) [Mass fraction] 97 % [facility] Work Phone: 12-22-2021 21:18-0400 Systolic blood pressure 115 mm[Hg] [facility] Work Phone: 11-22-2021 13:53-0400 Diastolic blood pressure 57 mm[Hg] [facility] Work Phone: 11-22-2021 13:53-0400 Heart rate 91 /min [facility] Work Phone: 11-22-2021 13:53-0400 Systolic blood pressure 123 mm[Hg] [facility] Work Phone: 11-22-2021 13:52-0400 Body temperature 98.2 [degF] [facility] Work Phone: 11-22-2021 13:52-0400 SaO2% (BldA) [Mass fraction] 99 % [facility] Work Phone: 11-22-2021 13:43-0400 Body height 165.1 cm [facility] Work Phone: 11-22-2021 13:43-0400 Body mass index (BMI) [Ratio] 30.7 kg/m2 [facility] Work Phone: 11-22-2021 13:43-0400 Body weight 83.9 kg [facility] Work Phone: 11-04-2021 06:53-0400 Heart rate 80 /min Dr. David Mckinney Work Phone: [facility] Work Phone: 11-04-2021 06:53-0400 SaO2% (BldA) [Mass fraction] 98 % Dr. David Mckinney Work Phone: [facility] Work Phone: 11-04-2021 04:23-0400 Body temperature 97.8 [degF] Dr. David Mckinney Work Phone: [facility] Work Phone: 11-04-2021 04:23-0400 Diastolic blood pressure 57 mm[Hg] Dr. David Mckinney Work Phone: [facility] Work Phone: 11-04-2021 04:23-0400 Systolic blood pressure 106 mm[Hg] Dr. David Mckinney Work Phone: [facility] Work Phone: 11-03-2021 21:27-0400 Body height 165.[address] David Mckinney Work Phone: [facility] Work Phone: 11-03-2021 21:27-0400 Body mass index (BMI) [Ratio] 29.9 kg/m2 Dr. David Mckinney Work Phone: [facility] Work Phone: 11-03-2021 21:27-0400 Body weight 81.[address] David Mckinney Work Phone: [facility] Work Phone: 09-13-2021 14:46-0400 Heart rate 68 /min Dr. David Mckinney Work Phone: [facility] Work Phone: 09-13-2021 14:46-0400 Respiratory rate 16 /min Dr. David Mckinney Work Phone: [facility] Work Phone: 09-13-2021 14:46-0400 SaO2% (BldA) [Mass fraction] 98 % Dr. Dvaid Mckinney Work Phone: [facility] Work Phone: 09-13-2021 14:29-0400 Diastolic blood pressure 74 mm[Hg] Dr. David Mckinney Work Phone: [facility] Work Phone: 09-13-2021 14:29-0400 Systolic blood pressure 109 mm[Hg] Dr. David Mckinney Work Phone: [facility] Work Phone: 09-13-2021 11:20-0400 Body mass index (BMI) [Ratio] 27.3 kg/m2 Dr. David Mckinney Work Phone: [facility] Work Phone: 09-13-2021 11:20-0400 Body temperature 98 [degF] Dr. David Mckinney Work Phone: [facility] Work Phone: 09-13-2021 11:20-0400 Body weight 74.[address] David Mckinney Work Phone: [facility] Work Phone: 07-19-2021 09:45-0500 Body mass index (BMI) [Ratio] 27.9 kg/m2 Dr. David Mckinney Work Phone: [facility] Work Phone: 07-19-2021 09:45-0500 Body temperature 98 [degF] Dr. David Mckinney Work Phone: [facility] Work Phone: 07-19-2021 09:45-0500 Body weight 76.[address] David Mckinney Work Phone: [facility] Work Phone: 07-19-2021 09:45-0500 Diastolic blood pressure 72 mm[Hg] Dr. David Mckinney Work Phone: [facility] Work Phone: 07-19-2021 09:45-0500 Heart rate 111 /min Dr. David Mckinney Work Phone: [facility] Work Phone: 07-19-2021 09:45-0500 Respiratory rate 16 /min Dr. David Mckinney Work Phone: [facility] Work Phone: 07-19-2021 09:45-0500 SaO2% (BldA) [Mass fraction] 99 % Dr. David Mckinney Work Phone: [facility] Work Phone: 07-19-2021 09:45-0500 Systolic blood pressure 116 mm[Hg] Dr. David Mckinney Work Phone: [facility] Work Phone: Encounters Encounter Date Encounter Type Care Provider Facility Start: 11-19-2024 End: 11-19-2024 ambulatory JOHANA TURNER Facility:[facility] Start: 11-19-2024 End: 11-19-2024 Telephone encounter Justin Valentino RN Obstetrics/Gynecolo gy Comment on above: [facility] Start: 11-18-2024 End: 11-18-2024 Patient encounter procedure Johana Turner BARTENDER MANAGER.CNM Work Phone: OB/Gynecology Comment on above: with uncer tain dates, antepartum (HCC) (Primary Dx); 12 weeks gestation of (HCC); History of gestational hypertension; Late care (HCC); Generalized anxiety disorder; History of drug abuse (HCC); Vapes nicotine containing substance; Encounter for supervision of high risk in second trimester, antepartum (HCC); History of IUFD Start: 11-18-2024 End: 11-18-2024 ambulatory JOHANA TURNER Facility:[facility] Start: 11-11-2024 End: 11-11-2024 ambulatory SHARDA VALERO Facility:[facility] Start: 10-22-2024 End: 10-22-2024 E-mail encounter from caregiver Halle Orellana APRNTamekaNEON PUMPER Work Phone: OB/Gynecology Start: 10-22-2024 End: 10-22-2024 Patient encounter procedure Halle Orellana APRAlexandraNEON PUMPER Work Phone: OB/Gynecology Comment on above: New Ob appointment Start: 10-21-2024 End: 10-21-[address] David Mckinney MD Work Phone: [facility] Work Phone: Start: 10-21-2024 End: 10-21-2024 Patient encounter procedure Rizwan Cárdenas DO -Ultrasound, [facility] Work Phone: Start: 10-21-2024 End: 10-21-2024 ambulatory [facility] Facility:[facility] Start: 10-11-2024 End: 10-12-2024 Emergency department patient visit Dr. David Mckinney MD Work Phone: -Emergency Department Work Phone: Start: 10-08-2024 End: 10-13-2024 Telephone encounter Margraita Hernandez RN Maternal Medicine Comment on above: Sustainability Director - O ther (Initial OB RN CC pool/) Start: 10-02-2024 End: 10-02-2024 Emergency department patient visit Dr. David Mckinney MD Work Phone: -Emergency Department Work Phone: Start: 09-16-2024 End: 09-16-2024 ambulatory HORTENCIA GOULD Facility:[facility] Start: 09-16-2024 End: 09-16-2024 Patient encounter procedure Hortencia Gould APRN.NEON PUMPER Work Phone: OB/Gynecology Comment on above: Encounter for IUD in sertion (Primary Dx) Start: 08-06-2024 End: 10-06-2024 Follow-up encounter Sharda Valero ADONIS.NEON PUMPER Work Phone: OB/Gynecology Comment on above: Results Start: 07-29-2024 End: 07-29-2024 ambulatory SHARDA VALERO Facility:[facility] Start: 07-29-2024 End: 07-29-2024 Patient encounter procedure Sharda Valero BARTENDER MANAGER.NEON PUMPER Work Phone: OB/Gynecology Comment on above: care and examination (Primary Dx); Screening for malignant neoplasm of cervix; Encounter for other general counseling or advice on contraception Start: 07-14-2024 Encounter for genera l adult medical examination without abnormal findings [facility] Start: 07-01-2024 End: 07-01-2024 ambulatory MARGARITA ALCALA Facility:[facility] Start: 07-01-2024 End: 07-01-2024 Patient encounter procedure Jeanette Patel MD Work Phone: OB/Gynecology Comment on above: care and examination immediately after delivery (Primary Dx) Start: 06-18-2024 End: 06-21-2024 ambulatory Margarita Alcala MD Work Phone: OB/Gynecology Comment on above: Ob Delivery Note Start: 06-17-2024 End: 06-19-2024 Evaluation and management of inpatient Johana Turner CNM -[facility] Work Phone: Start: 06-17-2024 End: 06-17-2024 ambulatory JOHANA TURNER Facility:[facility] Start: 06-17-2024 End: 06-17-2024 Patient encounter procedure Johana Turner BARTENDER MANAGER.CNM Work Phone: OB/Gynecology Comment on above: Supervision of high risk in third trimester (Primary Dx); Antepartum anemia complicating in third trimester; Polyhydramnios in third trimester complication, single or unspecified fetus; Obesity affecting in third trimester, unspecified obesity type; History of gestational hypertension; History of IUFD Start: 06-14-2024 End: 06-14-2024 Telephone encounter Sarah Solomon MD Work Phone: OB/Gynecology Comment on above: Release Of Medical R ecords Start: 06-14-2024 End: 06-14-2024 ambulatory Marcela Connors Facility:[facility] Start: 06-14-2024 End: 06-14-2024 Patient encounter procedure Marcelabria Connors CNM [facility] Work Phone: Start: 06-11-2024 End: 06-11-2024 ambulatory SARAH SOLOMON Facility:[facility] Start: 06-11-2024 End: 06-11-2024 Patient encounter procedure Sarah Solomon MD Work Phone: OB/Gynecology Comment on above: Supervision of high risk in third trimester (Primary Dx); Antepartum anemia complicating in third trimester; History of gestational hypertension; History of IUFD; Leg swelling in in third trimester; Breech presentation with problem, single or unspecified fetus; 36 weeks gestation of Encounter for ultras ound to check growth (Primary Dx); Polyhydramnios in third trimester complication, single or unspecified fetus; History of IUFD; Obesity affecting in third trimester, unspecified obesity type; 36 weeks gestation of Start: 06-09-2024 End: 06-09-2024 ambulatory Carlos Morales RNdocumentation analyst [facility] Comment on above: Blood Management Start: 06-04-2024 End: 06-04-2024 ambulatory HALLE ORELLANA Facility:[facility] Start: 06-03-2024 End: 06-03-2024 Patient encounter procedure Halle Orellana APRN.CNP Work Phone: OB/Gynecology Comment on above: Supervision of high risk in third trimester (Primary Dx); 35 weeks gestation of ; Polyhydramnios in third trimester complication, single or unspecified fetus; History of IUFD; History of gestational hypertension; Antepartum anemia complicating in third trimester; Obesity affecting in third trimester, unspecified obesity type Start: 06-03-2024 End: 06-03-2024 ambulatory HALLE ORELLANA Facility:[facility] Start: 06-03-2024 End: 06-07-2024 Telephone encounter Halle Orellana APRN.CNP Work Phone: OB/Gynecology Comment on above: Results Start: 05-25-2024 End: 05-25-2024 ambulatory JEANETTE PATEL Facility:[facility] Start: 05-25-2024 End: 05-25-2024 Patient encounter procedure Jeanette Patel MD Work Phone: OB/Gynecology Comment on above: Supervision of high risk in third trimester (Primary Dx); 34 weeks gestation of Start: 05-20-2024 End: 05-20-2024 ambulatory Deanna Olivares RN NURSE DIAMOND SETTER Comment on above: Patient Update Start: 05-12-2024 End: 05-12-2024 Patient encounter procedure [employer] [facility] Maternal Medicine Comment on above: Encounter for ultras ound to check growth (Primary Dx); 32 weeks gestation of ; History of IUFD; Supervision of other high risk pregnancies, third trimester; Polyhydramnios in third trimester complication, single or unspecified fetus Supervision of high risk in third trimester (Primary Dx); History of IUFD; 32 weeks gestation of Start: 05-12-2024 End: 05-12-2024 ambulatory JT LUGO Facility:[facility] Start: 04-29-2024 End: 04-29-2024 Telephone encounter Margarita Alcala MD Work Phone: OB/Gynecology Start: 04-28-2024 End: 04-28-2024 ambulatory MARGARITA ALCALA Facility:[facility] Start: 04-28-2024 End: 04-28-2024 Office outpatient visit 15 minutes Margarita Alcala MD Work Phone: OB/Gynecology Comment on above: Supervision of high risk in third trimester (Primary Dx); 30 weeks gestation of ; History of IUFD Start: 04-22-2024 End: 04-22-2024 Telephone encounter Johana Turner APRN.CNM Work Phone: OB/Gynecology Comment on above: OB Pain Start: 04-19-2024 End: 04-19-2024 Telephone encounter Nurse [employer] Shelley Mathews Work Phone: Obstetrics/Gynecology Comment on above: PRAF Start: 04-14-2024 End: 04-14-2024 Patient encounter procedure [employer] [facility] [employer] Work Phone: Maternal Medicine Comment on above: Encounter for ultras ound to check growth (Primary Dx); History of IUFD; 28 weeks gestation of ; Polyhydramnios in third trimester complication, single or unspecified fetus Supervision of other high risk pregnancies, third trimester (Primary Dx); Polyhydramnios in third trimester complication, single or unspecified fetus; History of IUFD Start: 04-14-2024 End: 04-14-2024 ambulatory MARGARITA ALCALA Facility:[facility] Start: 04-14-2024 End: 04-14-2024 Office outpatient visit 15 minutes Margarita Alcala MD Work Phone: OB/Gynecology Comment on above: 28 weeks gestation o f (Primary Dx); Supervision of high risk in second trimester; History of IUFD; Need for vaccination Start: 04-13-2024 End: 04-13-2024 ambulatory JT LUGO Facility:[facility] Start: 04-02-2024 End: 04-02-2024 ambulatory MARCELA CONNORS Facility:[facility] Start: 04-02-2024 End: 04-02-2024 Patient encounter procedure Marcela Connors APRN.CNM Work Phone: OB/Gynecology Comment on above: Supervision of high risk in second trimester (Primary Dx); Abdominal pain during in second trimester; 26 weeks gestation of Start: 03-17-2024 End: 03-17-2024 ambulatory JEANETTE PATEL Facility:[facility] Start: 03-17-2024 End: 03-17-2024 Patient encounter procedure Jt Lugo MD Work Phone: OB/Gynecology Comment on above: Supervision of high risk in second trimester (Primary Dx); History of IUFD; History of gestational hypertension; 24 weeks gestation of Encounter for ultras ound to check growth (Primary Dx); History of IUFD; 24 weeks gestation of Start: 02-18-2024 End: 02-18-2024 Telephone encounter Nurse [employer] Shelley Mathews Work Phone: Obstetrics/Gynecology Comment on above: PRAF Start: 02-17-2024 End: 02-17-2024 Office outpatient visit 15 minutes Margarita Alcala MD Work Phone: OB/Gynecology Comment on above: Encounter for superv ision of other normal in second trimester (Primary Dx); 20 weeks gestation of ; History of IUFD; History of gestational hypertension Start: 02-17-2024 End: 02-17-2024 [facility] Start: 02-17-2024 End: 02-17-2024 ambulatory JEANETTE PATEL Facility:[facility] Start: 02-17-2024 End: 02-17-2024 Patient encounter procedure Tyler Farrell MD Work Phone: Maternal Medicine Comment on above: History of IUFD (Loida yaniv Dx); Encounter for supervision of other normal in second trimester; History of gestational hypertension; History of drug abuse (HCC); 20 weeks gestation of ; Obesity affecting in second trimester, unspecified obesity type History of IUFD (Loida yaniv Dx) Start: 01-20-2024 End: 01-20-2024 [facility] Start: 01-20-2024 End: 01-20-2024 Patient encounter procedure Sarah Solomon MD Work Phone: OB/Gynecology Comment on above: Supervision of high risk in second trimester (Primary Dx); History of IUFD; History of gestational hypertension; 16 weeks gestation of Start: 01-08-2024 ambulatory Jeanette Easton Work Phone: OB/Gynecology Comment on above: 14 weeks pregt Start: 01-06-2024 Telephone encounter Jeanette daly MD Work Phone: OB/Gynecology Comment on above: Opened In Error Start: 01-06-2024 End: 01-06-2024 Emergency department patient visit David Mckinney Facility:[facility] Start: 01-01-2024 End: 01-01-2024 ambulatory JEANETTE PATEL Facility:[facility] Start: 01-01-2024 End: 01-01-2024 ambulatory SHARDA VALERO Facility:[facility] Start: 01-01-2024 End: 01-01-2024 Patient encounter procedure Jeanette Patel MD Work Phone: OB/Gynecology Comment on above: Encounter for superv ision of other normal in second trimester (Primary Dx); 13 weeks gestation of ; History of IUFD Encounter for (NT) n uchal translucency scan (Primary Dx); 13 weeks gestation of ; Encounter for screening for malformation using ultrasound Start: 12-22-2023 Telephone encounter Sarah Solomon MD Work Phone: OB/Gynecology Comment on above: OB N/V Start: 12-01-2023 End: 12-01-2023 ambulatory TYSHAWN OLRENZANA Facility:[facility] Start: 12-01-2023 End: 12-01-2023 Patient encounter procedure Tyshawn Lorenzana MD Work Phone: OB/Gynecology Comment on above: Encounter for superv ision of normal in multigravida in first trimester (Primary Dx); 9 weeks gestation of Start: 11-30-2023 End: 11-30-2023 Emergency department patient visit [facility] Start: 11-23-2023 End: 11-23-2023 Emergency department patient visit [facility] Start: 11-14-2023 Telephone encounter Liza Champagne RN Obstetrics/Gynecology Comment on above: PRAF Start: 11-13-2023 End: 11-13-2023 Patient encounter procedure Sharda Valero APRN.CNP Work Phone: OB/Gynecology Comment on above: 6 weeks gestation of (Primary Dx); care, subsequent in first trimester; Encounter for supervision of normal in multigravida in first trimester; History of gestational hypertension; History of IUFD Start: 08-10-2023 End: 08-10-2023 Emergency department patient visit [facility] Work Phone: Start: 07-17-2023 End: 07-17-2023 Emergency department patient visit [facility] Work Phone: Start: 07-04-2023 End: 07-04-2023 ambulatory [facility] Work Phone: Start: 07-04-2023 End: 07-04-2023 Patient encounter procedure [facility] Start: 06-10-2023 End: 06-10-2023 Emergency department patient visit [facility] Work Phone: Start: 05-11-2023 End: 05-11-2023 Emergency department patient visit [facility] Work Phone: Start: 05-01-2023 End: 05-01-2023 ambulatory [facility] Work Phone: Start: 05-01-2023 End: 05-01-2023 Patient encounter procedure [facility] Start: 04-02-2023 End: 04-02-2023 ambulatory [facility] Work Phone: Start: 04-02-2023 End: 04-02-2023 Discharged Recurring [facility] Work Phone: Start: 03-12-2023 End: 03-12-2023 Patient encounter procedure [facility] Work Phone: Start: 02-24-2023 End: 02-24-2023 Emergency department patient visit [facility] Work Phone: Start: 01-08-2023 End: 01-08-2023 Emergency department patient visit [facility] Work Phone: Start: 12-26-2022 End: 12-26-2022 ambulatory [facility] Work Phone: Start: 12-26-2022 End: 12-26-2022 Patient encounter procedure [facility] Start: 10-30-2022 End: 10-30-2022 ambulatory [facility] Work Phone: Start: 10-30-2022 End: 10-30-2022 Patient encounter procedure [facility]Laboratory, Specimen Start: 08-16-2022 End: 08-16-2022 ambulatory [facility] Work Phone: Start: 08-16-2022 End: 08-16-2022 Patient encounter procedure [facility], Specimen Start: 06-07-2022 End: 06-07-2022 Patient encounter procedure Everardo Jorge [facility] Work Phone: [facility] Comment on above: Acute otitis media, right (Primary Dx); URI, acute Start: 02-20-2022 End: 02-22-2022 [facility] Start: 02-17-2022 End: 02-17-2022 ambulatory [facility] Work Phone: Start: 02-17-2022 End: 02-17-2022 Patient encounter procedure [facility] Outpatients Start: 02-13-2022 End: 02-13-2022 ambulatory [facility] Work Phone: Start: 02-13-2022 End: 02-13-2022 Patient encounter procedure [facility], Specimen Start: 12-23-2021 End: 12-23-2021 Patient encounter procedure [facility] Start: 12-22-2021 End: 12-22-2021 Emergency department patient visit [facility] Start: 12-13-2021 End: 12-13-2021 Patient encounter procedure [facility], [place] fitting 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 David Mckinney Work Phone: [facility], Outpatients Start: 09-13-2021 End: 09-13-2021 Emergency department patient [facility] Start: 08-01-2021 End: 08-01-[address] David Mckinney Work Phone: [facility], [place] fitting supervisor Off Start: 07-19-2021 End: 07-19-[address] David Mckinney Work Phone: [facility] Start: 07-09-2021 End: 07-09-[address] David Mckinney Work Phone: [facility], [place] fitting supervisor Off Procedures Date Procedure Procedure Detail Performing Clinician Start: 11-18-2024 Us uterus l imited 1/ fetuses Johana Turner APRNTamekaCNNilda Work Phone: Start: 11-11-2024 Antibody screen HALLE DURBIN Comment on above: Order Comment: Speci men Type: BLOOD SPECIMEN Ordering Facility: [facility] Address: [address] [place] [address] Performed By: #### 5 8410-2 #### [facility] [id number] [address] [place] [address] [place] Start: 10-21-2024 Transvaginal obstetr ic ultrasonography Dr. David Mckinney MD Work Phone: Start: 10-12-[address] David Mckinney MD Work Phone: Start: 10-12-2024 Urnls dip stick/tabl et reagent auto microscopy Dr. David Mckinney MD Work Phone: Start: 10-12-[address] David Mckinney MD Work Phone: Start: 09-16-2024 UA DIP,URINE HCG (POC) Hortencia Gould APRN.NEON PUMPER Work Phone: Start: 06-17-2024 Urnls dip stick/tabl et rgnt non-auto w/o micrscp Johana Turner BARTENDER MANAGER.CNM Work Phone: Start: 06-11-2024 Urnls dip stick/tabl et rgnt non-auto w/o micrscp Sarah Solomon MD Work Phone: Start: 06-11-2024 Us preg uterus after 1st trimest / gestation Jt Lugo MD Work Phone: Start: 06-03-2024 Urnls dip stick/tabl et rgnt non-auto w/o micrscp Halle Reyna BARTENDER MANAGER.NEON PUMPER Work Phone: Start: 05-25-2024 Urnls dip stick/tabl et rgnt non-auto w/o micrscp Jeanette Patel MD Work Phone: Start: 05-12-2024 RSV VACCINE, BIVALEN T (ABRYSVO) Sarah Solomon MD Work Phone: Start: 05-12-2024 Us preg uterus after 1st trimest 1/1st gestation Jt Lugo MD Work Phone: Start: 04-14-2024 Us preg uterus after 1st trimest /1st gestation Jeanette Patel MD Work Phone: Start: 03-17-2024 Us preg uterus after 1st trimest / gestation Jeanette Patel MD Work Phone: Start: 02-17-2024 Us preg uterus after 1st trimest /1st gestation Jeanette Patel MD Work Phone: Start: 01-01-2024 Antibody screen HALLE H GIFTY Comment on above: Order Comment: Speci men Type: BLOOD SPECIMEN Ordering Facility: [facility] Address: [address] [place] [address] [place] [address] Performed By: #### 5 8410-2 #### [facility] [id number] [address] [place] [address] [place] Start: 01-01-2024 Us nuchal moncada slucency 1st gestation Sharda Laif BARTENDER MANAGER.NEON PUMPER Work Phone: Start: 11-13-2023 Iadna chlamydia trac homatis amplified probe tq Sharda Laif BARTENDER MANAGER.NEON PUMPER Work Phone: Start: 11-13-2023 Us uterus l imited 1/> fetuses Shardadodie Laif BARTENDER MANAGER.NEON PUMPER Work Phone: Start: 08-10-2023 SARS-CoV-2, Influenz a & RSV (PCR) Start: 08-10-2023 Plain chest X-ray Start: 07-17-2023 Plain X-ray of shoulder Start: 07-17-2023 Plain x-ray of wrist Start: 07-04-2023 Bacteria identified in Urine by Culture Start: 07-04-2023 Urine culture Start: 05-11-2023 SARS-CoV-2 & FLU Ant igen (Rapid) Start: 05-11-2023 Viral antigen assay Start: 02-24-2023 Plain chest X-ray Start: 02-24-2023 SARS-CoV-2 & FLU Ant igen (Rapid) Start: 02-24-2023 Streptococcus pyogen es antigen assay Start: 01-08-2023 X-ray of both feet Start: 01-08-2023 Plain X-ray of tibia and fibula Start: 12-26-2022 Urine culture Start: 11-04-2021 Transvaginal obstetr ic ultrasonography Dr. David Mckinney Work Phone: Start: 11-03-2021 Ultrasound scan for growth Dr. David Mckinney Work Phone: Start: 08-01-[address] David Mckinney Work Phone: Group B Streptococcu s Culture Urine culture Viral antigen assay Plan of Treatment Date Care Activity Detail Author Start: 04-14-2034 Urine microalbumin profile DTaP,Tdap,Td Vaccine (8 - Td or Tdap) [facility] Start: 07-29-2027 Screening for malign ant neoplasm of cervix Cervical Cancer Screening [facility] Start: 08-01-2025 End: 08-01-2025 Patient encounter procedure 08/01/2025 3:30 PM EST Office Visit OB/Gynecology [address] [place] [address] Sharda Valero APRN.NEON PUMPER [address] [place] [address] Annual OB/Gynecology Comment on above: Annual Start: 02-21-2025 Influenza vaccination Influenz a Vaccine (Season Ended) [facility] Start: 12-17-2024 End: 12-17-2024 Patient encounter procedure 12/17/2024 12:50 PM EDT Routine Office Visit OB/Gynecology [address] [place] [address] Margarita Alcala MD [address] [place] [address] 1st OB - LMP 08/19/24 OB/Gynecology Comment on above: 1st OB - LMP 08/19/24 Start: 11-22-2024 End: 11-22-2024 Patient encounter procedure 11/22/2024 12:50 PM EDT Routine Office Visit OB/Gynecology [address] [place] [address] Margarita Alcala MD [address] [place] [address] New ob lmp 08/19/24 OB/Gynecology Comment on above: New ob lmp 08/19/24 Start: 11-18-2024 End: 02-17-2025 Chromosome 21 trisomy [Presence] in Blood or Tissue by Cytogenetics [facility] Comment on above: Expected: 11/18/2024 , Expires: 02/17/2025 Start: 11-18-2024 End: 11-18-2025 OBSTETRIC ULTRASOUND WHI OBSTETRIC ULTRASOUND WHI Anc Imaging Routine with uncertain dates, antepartum (HCC) 12 weeks gestation of (HCC) Expected: 11/18/2024, Expires: 11/18/2025 [facility] Comment on above: Expected: 11/18/2024 , Expires: 11/18/2025 Start: 11-18-2024 End: 02-17-2025 TYPE + SCREEN TYPE + SCREEN Blood Bank Routine with uncertain dates, antepartum (HCC) 12 weeks gestation of (HCC) Expected: 11/18/2024, Expires: 02/17/2025 [facility] Work Phone: Comment on above: Expected: 11/18/2024 , Expires: 02/17/2025 Start: 11-12-2024 End: 02-11-2025 CBC panel - Blood by Automated count COMPLETE BLOOD COUNT Lab Routine 6 weeks gestation of care, subsequent in first trimester Expected: 11/12/2024, Expires: 02/11/2025 [facility] Work Phone: Comment on above: Expected: 11/12/2024 , Expires: 02/11/2025 Start: 11-12-2024 End: 02-11-2025 Hemoglobin A1c in Blood HEMOGLOBIN A1C Lab Routine 6 weeks gestation of care, subsequent in first trimester Expected: 11/12/2024, Expires: 02/11/2025 [facility] Comment on above: Expected: 11/12/2024 , Expires: 02/11/2025 Start: 11-12-2024 End: 02-11-2025 Hepatitis B virus surface Ag [Presence] in Serum HEPATITIS B SURFACE ANTIGEN Lab Routine 6 weeks gestation of care, subsequent in first trimester Expected: 11/12/2024, Expires: 02/11/2025 [facility] Comment on above: Expected: 11/12/2024 , Expires: 02/11/2025 Start: 11-12-2024 End: 02-11-2025 Hepatitis C virus Ab [Presence] in Serum HEPATITIS C ANTIBODY IA WITH CONFIRMATION Lab Routine 6 weeks gestation of care, subsequent in first trimester Expected: 11/12/2024, Expires: 02/11/2025 [facility] Comment on above: Expected: 11/12/2024 , Expires: 02/11/2025 Start: 11-12-2024 End: 02-11-2025 HIV 1+2 Ab [Presence] in Serum or Plasma by Immunoassay HIV 1/2 COMBO WITH REFLEX TO DIFFERENTIATION Lab Routine 6 weeks gestation of care, subsequent in first trimester Expected: 11/12/2024, Expires: 02/11/2025 [facility] Comment on above: Expected: 11/12/2024 , Expires: 02/11/2025 Start: 11-12-2024 End: 02-11-2025 RUBELLA IGG ANTIBODY RUBELLA IGG ANTIBODY Lab Routine 6 weeks gestation of care, subsequent in first trimester Expected: 11/12/2024, Expires: 02/11/2025 [facility] Comment on above: Expected: 11/12/2024 , Expires: 02/11/2025 Start: 11-12-2024 End: 02-11-2025 SYPHILIS TOTAL W/REFLEX SYPHILIS TOTAL W/REFLEX Lab Routine 6 weeks gestation of care, subsequent in first trimester Expected: 11/12/2024, Expires: 02/11/2025 [facility] Comment on above: Expected: 11/12/2024 , Expires: 02/11/2025 Start: 11-12-2024 End: 02-11-2025 TYPE + SCREEN TYPE + SCREEN Blood Bank Routine 6 weeks gestation of care, subsequent in first trimester Expected: 11/12/2024, Expires: 02/11/2025 [facility] Comment on above: Expected: 11/12/2024 , Expires: 02/11/2025 Start: 11-12-2024 End: 11-12-2024 ambulatory 11/12/2024 11:15 AM EDT Results Only [place] [facility] [address] [place] [address] [place] [facility] Start: 10-25-2024 End: 10-25-2024 Patient encounter procedure 10/25/2024 11:00 AM EDT Initial Office Visit OB/Gynecology [address] [place] [address] Halle Orellana APRN.NEON PUMPER [address] [place] [address] New ob lmp 08/19/24 OB/Gynecology Comment on above: New ob lmp 08/19/24 Start: 10-12-2024 Bacteria identified in Urine by Culture Urine Culture [facility] Start: 10-12-2024 Transvaginal obstetr ic ultrasonography [facility] Start: 10-12-2024 [facility] Start: 10-02-2024 End: 10-02-2024 [facility] Start: 08-03-2024 End: 08-03-2024 Patient encounter procedure 08/03/2024 9:30 AM EST Office Visit OB/Gynecology [address] [place] [address] Sharda Valero, ADONIS.NEON PUMPER [address] [place] [address] IUD insert OB/Gynecology Comment on above: IUD insert Start: 07-29-2024 End: 07-29-2024 Patient encounter procedure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 cervical lesions, physiologic discharge present, normal appearing perineal body and perianal region BIMANUAL: uterus normal size, shape and consistency, no adnexal masses, and non-tender NEURO: alert and oriented x3,exam grossly non-focal EXTREMITIES: normal ASSESSMENT AND PLAN: 28 year old status post with normal course. Contraception plan: IUD - Mirena Follow up: RTC for insertion of IUD Sharda Valero APRN.NEON PUMPER [facility] 07-29-2024 History of Presen t illness Narrative VISIT Shilpa Hoang is a 28 year old year old here for visit. Delivery Summary: 06/18/24 ROS/ Recovery: Feeding: Bottle feeding problems: n/a Menses since delivery: n/a Menstrual pattern prior to : Regular periods [place] since delivery: Not resumed Depression: denies symptoms of depression. OB Depression and Anxiety Screening- This Encounter (since 07/28/2024) Over the past 2 weeks have you felt down, depressed, or hopeless? Negative Over the past two weeks, have you felt little interest or pleasure in doing things? Negative Feeling nervous, anxious or on edge 0-Not at all Not being able to stop or control worrying 0-Not al all Anxiety Pre-Screening Total (If >/= 3 additional questions will be reviewed) 0 Emotional support: Yes Bowel symptoms: No nausea, vomiting, or diarrhea, No heartburn or reflux symptoms, Negative for abdominal discomfort, blood in stools or black stools, and change in bowel habits Abdomen: She reports no incisional redness, tenderness, erythema Bladder symptoms: No dysuria, gross hematuria, urinary frequency, urinary urgency, or incontinence Other issues: None Last Pap: none in epic PAST MEDICAL HISTORY Diagnosis Date 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) Generalized anxiety disorder PAST SURGICAL HISTORY Procedure Laterality Date NONE FAMILY HISTORY Problem Relation Age of Onset Hypertension Mother Asthma Mother Cancer Father No Known Problems Sister No Known Problems Sister Hypertension Maternal Grandmother Hypertension Maternal Grandfather Diabetes Maternal Grandfather No Known Problems Paternal Grandmother No Known Problems Paternal Grandfather Seizures Half-brother No Known Problems Half-brother No Known Problems Half-brother Social History Tobacco Use Smoking status: Former Current packs/day: 2.00 Types: Cigarettes Passive exposure: Current Smokeless tobacco: Never Vaping Use Vaping status: Never Used Substance Use Topics Alcohol use: Not Currently Drug use: Not Currently Types: Amphetamines Comment: No drug use since 2020 PHYSICAL EXAMINATION: SENSITIVE EXAM: The sensitive examination was discussed with the Patient or Patient's Authorized Frozen Food Department Manager. As applicable, any other physician, advance practice provider, medical student, or other health professional student that will be observing or involved in the sensitive examination for educational or training purposes was discussed with the Patient or Authorized Frozen Food Department Manager. The Patient or Authorized Frozen Food Department Manager has agreed to proceed with the sensitive examination. (Sensitive examination includes inspection and/or palpation of the breasts, pelvis, prostate and anorectal regions). BP 112/76 Ht 5' 4 (1.63m) Wt 169 lb (76.7kg) LMP 09/28/2023 BMI 28.99 kg/(m^2). GENERAL: pleasant, female in no apparent distress HEENT: Normocephalic, atraumatic, mucus membranes moist, and no lesions NECK: Supple, full range of motion, no adenopathy, and thyroid normal DERMATOLOGY: Normal, without lesions, non-icteric, and non-hirsute BREAST: soft, non-tender, symmetric, no dominant mass, normal nipple-areolar complex, no lymphadenopathy, and no nipple discharge CHEST: Normal inspiratory effort ABDOMEN: soft, non-tender, and no masses. INCISION: N/A PELVIC: external genitalia normal, normal Bartholin's glands, urethra, [place]'s glands, no vulvar lesions, no cervical lesions, physiologic discharge present, normal appearing perineal body and perianal region BIMANUAL: uterus normal size, shape and consistency, no adnexal masses, and non-tender NEURO: alert and oriented x3,exam grossly non-focal EXTREMITIES: normal ASSESSMENT AND PLAN: 28 year old status post with normal course. Contraception plan: IUD - Mirena Follow up: RTC for insertion of IUD Sharda Valero APRN.KAITLYNN documented in this encounter [facility] 07-01-2024 Note HNO ID: [id number] Author: JEANETTE PATEL MD Service: ? Author Type: Physician Type: Progress Notes Filed: 07/01/2024 12:42 Note Text: EARLY VISIT Shilpa Hoang is a 28 year old here for 2 week visit. Delivery Summary: 06/18/2024 ROS: General: Denies any fever or chills Hypertension Screening: Headache? No. Visual Changes? No Epigastric Pain? No Increased Swelling? No Taking any BP medications at home? Yes - she can't remember the name If applicable, monitoring BP at home? (If Yes, include results) Yes / 130's/90's Mood: normal Depression: denies symptoms of depression. OB Depression and Anxiety Screening- This Encounter (since 06/30/2024) Over the past 2 weeks have you felt down, depressed, or hopeless? Negative Over the past two weeks, have you felt little interest or pleasure in doing things?? Negative Feeling nervous, anxious or on edge 1-Several days Not being able to stop or control worrying 1-Several days Anxiety Pre-Screening Total (If >/= 3 additional questions will be reviewed) 2 Feeding: Breast feeding problems: Trouble with getting full supply of milk Bladder: No dysuria, gross hematuria, urinary frequency, urinary urgency, or incontinence Bowel symptoms: Negative for abdominal discomfort, blood in stools or black stools and change in bowel habits Abdomen: N/A Bleeding: light flow Bottom and Perineum: No issues Sleep: no sleep concerns and sleeps in bassinet/crib in parent's room, feels rested [place] since delivery: Not resumed Emotional support: Yes Exercise: N/A Other issues: None SENSITIVE EXAM: Sensitive exam not performed. PHYSICAL EXAMINATION: BP 120/84 Wt 76.6 kg (168 lb 12.8 oz) LMP 09/28/2023 (Approximate) Yes BMI 28.97 kg/m? General: pleasant,female in no apparent distress, AANDO x 3. Skin warm and intact. Breast: Deferred Abdomen: Deferred /Incision: N/A Pelvic: Deferred Bimanual: Deferred ASSESSMENT AND PLAN: 28 year old status post with normal course. and course complicated by gestational hypertension. Contraception plan: undecided . Reinforced 6-week pelvic rest. Encouraged condom usage should patient deviate. Education: resources provided - see MA/RN note Gestational hypertension - continue BP monitoring at home AND send log weekly. Patient to message BP med later today (likely procardia XL). Follow up: Return to Clinic for 6 week visit and as needed Jeanette Patel MD [facility] 07-01-2024 History of Presen t illness Narrative EARLY VISIT Shilpa Hoang is a 28 year old here for 2 week visit. Delivery Summary: 06/18/2024 ROS: General: Denies any fever or chills Hypertension Screening: Headache? No. Visual Changes? No Epigastric Pain? No Increased Swelling? No Taking any BP medications at home? Yes - she can't remember the name If applicable, monitoring BP at home? (If Yes, include results) Yes / 130's/90's Mood: normal Depression: denies symptoms of depression. OB Depression and Anxiety Screening- This Encounter (since 06/30/2024) Over the past 2 weeks have you felt down, depressed, or hopeless? Negative Over the past two weeks, have you felt little interest or pleasure in doing things? Negative Feeling nervous, anxious or on edge 1-Several days Not being able to stop or control worrying 1-Several days Anxiety Pre-Screening Total (If >/= 3 additional questions will be reviewed) 2 Feeding: Breast feeding problems: Trouble with getting full supply of milk Bladder: No dysuria, gross hematuria, urinary frequency, urinary urgency, or incontinence Bowel symptoms: Negative for abdominal discomfort, blood in stools or black stools and change in bowel habits Abdomen: N/A Bleeding: light flow Bottom and Perineum: No issues Sleep: no sleep concerns and sleeps in bassinet/crib in parent's room, feels rested [place] since delivery: Not resumed Emotional support: Yes Exercise: N/A Other issues: None SENSITIVE EXAM: Sensitive exam not performed. PHYSICAL EXAMINATION: BP 120/84 Wt 76.6 kg (168 lb 12.8 oz) LMP 09/28/2023 (Approximate) Yes BMI 28.97 kg/m General: pleasant,female in no apparent distress, A&O x 3. Skin warm and intact. Breast: Deferred Abdomen: Deferred /Incision: N/A Pelvic: Deferred Bimanual: Deferred ASSESSMENT AND PLAN: 28 year old status post with normal course. and course complicated by gestational hypertension. Contraception plan: undecided . Reinforced 6-week pelvic rest. Encouraged condom usage should patient deviate. Education: resources provided - see MA/RN note Gestational hypertension - continue BP monitoring at home & send log weekly. Patient to message BP med later today (likely procardia XL). Follow up: Return to Clinic for 6 week visit and as needed Jeanette Patel MD documented in this encounter [facility] 06-21-2024 Note HNO ID: [id number] Author: MARGARITA HEARN RN Service: ? Author Type: Registered Nurse Type: Progress Notes Filed: 06/21/2024 10:56 Note Text: Patient delivered via at [facility] on 06/18/24 per Margarita Alcala MD . See OB Outcome note. Margarita Hearn RN [facility] 06-21-2024 History of Presen t illness Narrative Patient delivered via at [facility] on 06/18/24 per Margarita Alcala MD . See OB Outcome note. Margarita Hearn RN documented in this encounter [facility] 06-19-2024 Note [facility] Medical Records Department [address] [place] [address] Discharge Summary 06/19/24 0448 MR#: [id number] Acct: [id number] Name: SHILPA HOANG Rep #: [id number] : 1995 28 From: Margarita Alcala MD PCP: Dr. David Mckinney MD Status:DIS IN Location: [id number] Providers Date of Admission: 06/17/24 Date of Discharge: 06/18/24 Primary Care Physician: Dr. David Mckinney MD Reason For Visit: VAGINAL DELIVERY Diagnosis Discharge Diagnosis (1) Gestational hypertension: Status: Acute Code(s): O13.9 - Gestational [-induced] hypertension without significant proteinuria, unspecified trimester Qualifiers: Trimester: third trimester Qualified Code(s): O13.3 - Gestational [-induced] hypertension without significant proteinuria, third trimester (2) 37 weeks gestation of : Status: Acute Code(s): Z3A.37 - 37 weeks gestation of (3) (spontaneous vaginal delivery): Status: Acute Code(s): O80 - Encounter for full-term uncomplicated delivery Plan Discharge home with procardia and return precautions. Has appointment on 06/22 Medications at Discharge Home Medications [id number]-[id number]-FA 1 mg tablet 1 tab PO DAILY 09/13/21 ferrous sulfate 325 mg (65 mg iron) tablet (Iron (ferrous sulfate)) 325 mg PO DAILY 02/17/22 sertraline 100 mg tablet 100 mg PO Q24H 08/10/23 Hospital Course Operations None Procedures None Summary of Care Provided Minutes Spent on Discharge: 20 Hospital Course: IOL for GHTN. without complication. BP normal to mild. Asymptomatic. Breast feeding Physical Exam Const alert and no apparent distress Narrative: Fundus firm, below umbilicus. Weight / BMI Weight Weight: 86.6 kg Body Mass Index (BMI) 31.7 ABG / Lab / Microbiology Data 06/17/24 11:45 06/17/24 11:45 D/C Instructions May resume sexual activity in: 6 weeks DC O2, CPAP, BIPAP Needs Home O2 Discharge instructions: No Please Follow Up With: Jt Lugo MD When: Follow up with our office in 1-2 and 6 weeks or as needed. [phone] Meaningful Use Info Meaningful Use Meaningful Use Diagnoses (Choose all that apply): None applicable Ischemic Stroke Statin Dosing Therapy Reference: STATIN DOSE THERAPY REFERENCE: * Patients > 75 years receive moderate or high dose statin therapy. * Patients 75 years or YOUNGER should receive HIGH intensity statin dose unless contraindicated. You will be required to document reason for non-treatment if statin daily dose does not meet guidelines. HIGH DOSE STATIN THERAPY DAILY Atorvastatin > than or = to 40 mg Rosuvastatin > than or = to 20 mg Amlodipine + Atorvastatin > than or = to 2.5/40 mg Ezetimibe + Simvastatin 10/80 mg Simvastatin 80mg Discharge Plan Admission Admit Date/Time: 06/17/24 15:30 Primary Reason for Your Visit: HTN Attending Provider: Johana Turner Primary Care Provider: David Mckinney Discharge Orders/Prescriptions Prescriptions: Continued pfvvchwk-erz-Pl-FA 1 mg Tablet 1 tab PO DAILY ferrous sulfate [Iron (ferrous sulfate)] 325 mg (65 mg iron) Tablet 325 mg PO DAILY sertraline 100 mg tablet 100 mg PO Q24H Patient Comments: TAKE 1 TABLET BY MOUTH ONCE DAILY IN THE MORNING Discontinued aspirin 81 mg tablet,delayed release (DR/EC) 81 mg PO DAILY Referrals / Follow Up: David Mckinney MD [Primary Care Provider] - Disposition Disposition (needs filled in before D/C Order can be placed): Home, Self Care 06/20/24 9915 Cosigner Signature (if applicable): CC: Dr. David Mckinney MD; Dr. Margarita Alcala MD Signed [facility] 06-17-2024 Evaluation note Diagnosis Onset Date Resolution 37 weeks gestation of acute June 17, 2 024 3:30pm Anemia affecting in third trimester acute June 17 024 3:30pm Gestational hypertension acute June 17, 2024 3:30pm Gestational thrombocytopenia acute June 17, 2024 3:30pm History of drug use acute Decem kadie 2023 3:30pm Positive GBS test acute Decembe r 2023 3:30pm hypertension acute D ecember 2023 3:30pm (spontaneous vaginal delivery) acute June 17 024 3:30pm [facility] Work Phone: [phone] 724-832612-26-2024 Progress note* Quick Notes - Johana Turner APRN.RUBINA - 06/17/2024 8:46 AM EST S: Shilpa Hoang is a 28 year old female who presents at 37 weeks for routine OB with NST. NST reactive. Patient planned on ECV but was vertex upon arrival. Positive movements. C/O migraine since yesterday. Taking Tylenol with minimal relief. Reports long history of migraines. Denies chest pain, shortness of breath, RUQ pain, vaginal bleeding, leakage of fluid, or dysuria. O: See flow sheet Gen: No apparent distress Abd: Gravid, nontender True BP today - 131/88 ASSESSMENT/PLAN: 1. Supervision of high risk in third trimester - ICD9: V23.9, ICD10: O09.93 (primary diagnosis) 2. Antepartum anemia complicating in third trimester - ICD9: 648.23, 285.9, ICD10: O99.013 3. Polyhydramnios in third trimester complication, single or unspecified fetus - ICD9: 657.03, ICD10: O40.3XX0 4. Obesity affecting in third trimester, unspecified obesity type - ICD9: 649.13, ICD10: O99.213 5. History of gestational hypertension - ICD9: V13.29, ICD10: Z87.59 6. History of IUFD - ICD9: V13.29, ICD10: Z87.59 - NST reactive - Blood pressures elevated- with headache and hx of GHTN, patient sent to L&D for monitoring and Pre e labs - Dr. Cassidy involved with plan of care - RTO 1 week for NST/PEGGY Turner APRN.CNM [facility]12-26-2024 Miscellaneous Notes* Quick Notes - Johana Turner APRN.CNM - 06/17/2024 8:46 AM EST S: Shilpa Hoang is a 28 year old female who presents at 37 weeks for routine OB with NST. NST reactive. Patient planned on ECV but was vertex upon arrival. Positive movements. C/O migraine since yesterday. Taking Tylenol with minimal relief. Reports long history of migraines. Denies chest pain, shortness of breath, RUQ pain, vaginal bleeding, leakage of fluid, or dysuria. O: See flow sheet Gen: No apparent distress Abd: Gravid, nontender True BP today - 131/88 ASSESSMENT/PLAN: 1. Supervision of high risk in third trimester - ICD9: V23.9, ICD10: O09.93 (primary diagnosis) 2. Antepartum anemia complicating in third trimester - ICD9: 648.23, 285.9, ICD10: O99.013 3. Polyhydramnios in third trimester complication, single or unspecified fetus - ICD9: 657.03, ICD10: O40.3XX0 4. Obesity affecting in third trimester, unspecified obesity type - ICD9: 649.13, ICD10: O99.213 5. History of gestational hypertension - ICD9: V13.29, ICD10: Z87.59 6. History of IUFD - ICD9: V13.29, ICD10: Z87.59 - NST reactive - Blood pressures elevated- with headache and hx of GHTN, patient sent to L&D for monitoring and Pre e labs - Dr. Cassidy involved with plan of care - RTO 1 week for NST/PEGGY Turner APRN.CNM [facility]24 NoteHNO ID: [id number] Author: JOHANA TURNER APRN.CNM Service: ? Author Type: Bench Examiner Type: Progress Notes Filed: 06/17/2024 10:25 Note Text: NST SUMMARY PROVIDER ASSESSMENT AND INTERPRETATION Shilpa Hoang is a 28 year old female, , who is at 37w4d with an JANE of 07/04/2024, by Last Menstrual Period dating method. Indications for NST: Obesity and Previous IUFD Baseline: 135 Variability: Moderate Accelerations: Present 15 X 15 Decelerations: None Contractions: TOCO: None Interpretation: Reactive SIGNATURE: Joh[facility] History of Present illness Narrative* Johana Turner APRN.CNM - 06/17/2024 8:45 AM EST NST SUMMARY PROVIDER ASSESSMENT AND INTERPRETATION Shilpa Hoang is a 28 year old female, , who is at 37w4d with an JANE of 07/04/2024, by Last Menstrual Period dating method. Indications for NST: Obesity and Previous IUFD Baseline: 135 Variability: Moderate Accelerations: Present 15 X 15 Decelerations: None Contractions: TOCO: None Interpretation: Reactive SIGNATURE: Johana Turner APRN.CNM [facility] Instructions* Patient Instructions* Terrie Ramirez MA - 06/17/2024 8:43 AM EST SEQUENTIAL SCREENINGS The [facility] offers sequential screenings for women who are interested in screenings for chromosomal abnormalities and certain defects during a . The sequential screen combinesultrasound and blood tests to determine the risk of chromosomal abnormalities, including Down's Syndrome (Trisomy 21) and Trisomy 18, as well as open neural tube defects including spina bifida. Ultrasound examination is performed between 11 weeks and 13 weeks gestational age. Blood tests are drawn after the ultrasound and again later in the between 15 and 21 weeks gestational age. Please let your physician know if you are interested in this testing. It will require an appointment withour technician's helper. This is not an ultrasound performed by a physician in our office during a routine visit. SIGNS AND SYMPTOMS OF LABOR 1. Contractions every 10 minutes or more often 2. Clear, pink, or brownish fluid (water) leaking from vagina 3. Feeling that baby is pushing down, pressure 4. Low, dull backache 5. Cramps that feel like a period 6. Cramps with or without diarrhea If you notice any of the above symptoms, contact our office at [phone] and ask to speak with anurse. After hours, you can call doctors registry at [phone] OR call [facility] at [phone] ask to have the doctor nurse practitioner hospitalist paged. If you consider this an emergency, dial 9-7-4 or go to your nearest emergency department. NEED HELP? Are you dealing with a violent or abusive relationship? Are you a victim of rape or sexual assult? Call [facility] ([place]) 24 hour Crisis Hotline: 984.636.6562 or 400-590-4175. MANUAL Your Guide to a Healthy manual is now on-line. Visit the [email or web address] to download your free copy documented in this encounter[facility] Telephone encounter Note * Telephone Encounter - Margarita Hearn RN - 06/14/2024 11:06 AM EST Faxed via [employer]. Margarita Hearn RN [facility]12-23-2024 Miscellaneous Notes* Telephone Encounter - Margarita Hearn RN - 06/14/2024 11:06 AM EST Faxed via [employer]. Margarita Hearn RN * Telephone Encounter - Jennifer Roldan - 06/14/2024 10:[address] [facility] OB is requesting H&P to be faxed to [phone]. documented in this encounter[facility]24 Telephone encounter Note * Telephone Encounter - Jennifer Roldan - 06/14/2024 10:[address] [facility] OB is requesting H&P to be faxed to [phone]. [facility]12-21-2024 Note Indication Evaluation of growth, Evaluation of well-being History of intrauterine demise 26 weeks, Maternal obesity, BMI >30 Impression - Single, live, intrauterine . - The biometry is consistent with the assigned gestational dating. - The EFW is 3157 g, at the 69%. AC is at the 95%. - The amniotic fluid volume is mild polyhydramnios with an MVP of 7.7 cm and an EDE of 24.2 cm. - The placenta is posterior, fundal. - BPP 6/8. - No malformations visualized on a limited survey as detailed below. Recommendations For office NST Continue planned surveillance Maternal Assessment Height 163 cm Height (ft) 5 ft Height (in) 4 in Physical Exam Initial weight (lb) 177 lb Initial BMI 30.38 kg/m Maternal assessment other: 5 Para 3 Method Transabdominal ultrasound examination. View: Suboptimal view: limited by late gestational age Marquez . Number of fetuses: 1 Dating LMP on: 09/28/2023 GA by LMP 36 w + 5 d JANE by LMP: 07/04/2024 GA by prior assessment 36 w + 5 d JANE by prior assessment: 07/04/2024 Ultrasound examination on: 06/11/2024 GA by U/S based upon: AC, BPD, Femur GA by U/S 36 w + 4 d JANE by U/S: 07/05/2024 Assigned: based on the LMP, selected on 01/01/2024 Assigned GA 36 w + 5 d Assigned JANE: 07/04/2024 General Evaluation Cardiac activity present. FHR 124 bpm. movements: present. Presentation: breech Placenta: Placental site: posterior, fundal Umbilical cord: Cord vessels: 3 vessel cord Amniotic fluid: Amount of AF: mild polyhydramnios. MVP 7.7 cm. EDE 24.2 cm. Q1 7.1 cm, Q2 5.9 cm, Q3 7.7 cm, Q4 3.5 cm Biophysical Profile 0: breathing movements 2: Gross body movements 2: tone 2: Amniotic fluid volume 6/8 Biophysical profile score Growth Overview Exam date GA BPD (mm) HC (mm) AC (mm) FL (mm) HL (mm) EFW (g) 02/17/2024 20w 2d 45.5 28% 176 44% 165.3 83% 28.6 14% 28.8 20% 349 49% 03/17/2024 24w 3d 59.6 39% 231.7 66% 207.7 70% 40.9 24% 713 47% 04/14/2024 28w 3d 73.5 72% 275.5 74% 244.1 50% 47.9 4% 1163 24% 05/12/2024 32w 3d 87.4 98% 323.5 94% 299.4 87% 57.9 10% 2154 66% 06/11/2024 36w 5d 94.5 95% 346.7 89% 345.7 95% 63.6 2% 3157 69% Biometry Standard BPD 94.5 mm 38w 4d 95% Hadlock OFD 122.4 mm -/- 90% Nicolaides HC 346.7 mm -/- 89% Ed AC 345.7 mm 38w 3d 95% Hadlock Femur 63.6 mm 32w 5d 2% Ed EFW 3,157 g 37w 4d 69% Hadlock EFW (lb) 6 lb EFW (oz) 15 oz EFW by: Hadlock (HC-AC-FL) [employer] 5.7 mm Extremities / Bony Struc FL / HC 0.18 Other Structures FHR 124 bpm Anatomy Lateral ventricles: normal Cavum septi pellucidi: normal Cerebellum: normal Cisterna magna: normal 4-chamber view: normal RVOT view: normal LVOT view: normal 3-vessel view: normal Heart / Thorax Situs: situs solitus (normal) Diaphragm: normal Stomach: normal Kidneys: normal Bladder: normal sex: male Wants to know sex: yes Performed By: Khushboo Easley RDMS, RVT Read By: Tyler Farrell M.D.MATERNAL [id number] NoteHNO ID: [id number] Author: SARAH HUBER MD Service: ? Author Type: Physician Type: Progress Notes Filed: 06/11/2024 12:05 Note Text: NST SUMMARY PROVIDER ASSESSMENT AND INTERPRETATION Shilpa Hoang is a 28 year old female, , who is at 36w5d with an JANE of 07/04/2024, by Last Menstrual Period dating method. Indications for NST: Other: BPP 6/8, -2 breathing, h/o IUFD (trauma) Baseline: 120 Variability: Moderate Accelerations: Present 15 X 15 Decelerations: None Contractions: TOCO: None Interpretation: Category I and Reactive SIGNATURE: Sarah Warner [facility]12-20-2024 History of Present illness Narrative* Sarah Huber MD - 06/11/2024 12:04 PM EST NST SUMMARY PROVIDER ASSESSMENT AND INTERPRETATION Shilpa Hoang is a 28 year old female, , who is at 36w5d with an JANE of 07/04/2024, by Last Menstrual Period dating method. Indications for NST: Other: BPP 6/8, -2 breathing, h/o IUFD (trauma) Baseline: 120 Variability: Moderate Accelerations: Present 15 X 15 Decelerations: None Contractions: TOCO: None Interpretation: Category I and Reactive SIGNATURE: Sarah Warner MD documented in this encounter[facility]12-[facility]-2024 Progress note* Quick Notes - Sarah Huber MD - 06/11/2024 12:00 PM EST DM-Pt doing well. Denies vaginal Bleeding, Leaking fluid, or regular Contractions. Pt reports good movement. Pt with rash - reports eczema all over body- legs/arm/face Physical Exam: Gen: female in no apparent distress Abd: soft, Gravid. Non tender to palpation. See flow sheet @ 36.5 weeks Assessment & Plan Supervision of high risk in third trimester BPP 6/8 -2 breathing, NST today Orders: URINE OB DIP B/O Antepartum anemia complicating in third trimester History of gestational hypertension History of IUFD Growth every 4 weeks- pending today- EDE wnl now (h/o poly at 28cm) Leg swelling in in third trimester Discussed relief measures Breech presentation with problem, single or unspecified fetus - discussed ECV vs primary cs at 39 weeks. Pt would like to proceed with ECV. Risks benefits reviewed. Consent signed. Scheduled for 06/14/24 36 weeks gestation of Orders: ROUTINE, GROUP B STREP PCR Sarah Warner MD [facility]12-20-2024 Miscellaneous Notes* Quick Notes - Sarah Huber MD - 06/11/2024 12:00 PM EST DM-Pt doing well. Denies vaginal Bleeding, Leaking fluid, or regular Contractions. Pt reports good movement. Pt with rash - reports eczema all over body- legs/arm/face Physical Exam: Gen: female in no apparent distress Abd: soft, Gravid. Non tender to palpation. See flow sheet @ 36.5 weeks Assessment & Plan Supervision of high risk in third trimester BP 68 -2 breathing, NST today Orders: URINE OB DIP B/O Antepartum anemia complicating in third trimester History of gestational hypertension History of IUFD Growth every 4 weeks- pending today- EDE wnl now (h/o poly at 28cm) Leg swelling in in third trimester Discussed relief measures Breech presentation with problem, single or unspecified fetus - discussed ECV vs primary cs at 39 weeks. Pt would like to proceed with ECV. Risks benefits reviewed. Consent signed. Scheduled for 06/14/24 36 weeks gestation of Orders: ROUTINE, GROUP B STREP PCR Sarah Warner MD documented in this encounterKind[facility]12-[facility]-2024 Instructions* Patient Instructions* Terrie RamirezELIGIO - 06/11/2024 10:48 AM EST SEQUENTIAL SCREENINGS The [facility] offers sequential screenings for women who are interested in screenings for chromosomal abnormalities and certain defects during a . The sequential screen combinesultrasound and blood tests to determine the risk of chromosomal abnormalities, including Down's Syndrome (Trisomy 21) and Trisomy 18, as well as open neural tube defects including spina bifida. Ultrasound examination is performed between 11 weeks and 13 weeks gestational age. Blood tests are drawn after the ultrasound and again later in the between 15 and 21 weeks gestational age. Please let your physician know if you are interested in this testing. It will require an appointment withour technician's helper. This is not an ultrasound performed by a physician in our office during a routine visit. SIGNS AND SYMPTOMS OF LABOR 1. Contractions every 10 minutes or more often 2. Clear, pink, or brownish fluid (water) leaking from vagina 3. Feeling that baby is pushing down, pressure 4. Low, dull backache 5. Cramps that feel like a period 6. Cramps with or without diarrhea If you notice any of the above symptoms, contact our office at [phone] and ask to speak with anurse. After hours, you can call doctors registry at [phone] OR call [facility] at [phone] ask to have the doctor nurse practitioner hospitalist paged. If you consider this an emergency, dial 9--1 or go to your nearest emergency department. NEED HELP? Are you dealing with a violent or abusive relationship? Are you a victim of rape or sexual assult? Call [facility] ([place]) 24 hour Crisis Hotline: 334.273.6453 or 394-150-0040. MANUAL Your Guide to a Healthy manual is now on-line. Visit the [email or web address] to download your free copy documented in this encounterKind[facility]12-18-2024 NoteHNO ID: [id number] Author: CARLOS MORALES RN Service: ? Author Type: Registered Nurse Type: Progress Notes Filed: 06/09/2024 13:23 Note Text: Patient referred to Blood Management for evaluation and treatment of pre-surgical anemia and/or iron deficiency. Non-surgical: anemia in Date of surgery: NA Medical/Surgical History: PAST MEDICAL HISTORY Diagnosis Date 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) Generalized anxiety disorder No past surgical history on file. Other significant Medical/Surgical history: - None Current Outpatient Medications Medication Sig FLUoxetine HCl 20 mg tablet Take 1 tablet by mouth every afternoon. AMOXICILLIN ORAL Take by mouth. (Patient not taking: Reported on 05/25/2024) acetaminophen (TYLENOL) 500 mg tablet ferrous sulfate 325 mg (65 mg iron) tablet Take 1 tablet by mouth once daily. folic acid 1 mg tablet Take 1 tablet by mouth once daily. aspirin, enteric coated (ECOTRIN LOW STRENGTH) 81 mg EC tablet Take 1 tablet by mouth once daily. No current facility-administered medications for this visit. Current medications that may affect iron absorption and/or blood loss: - Aspirin Baseline laboratory values: WBC (k/uL) Date Value 06/03/2024 9.56 RBC (m/uL) Date Value 06/03/2024 3.39 (L) Hemoglobin (g/dL) Date Value 06/03/2024 8.8 (L) Hematocrit (%) Date Value 06/03/2024 27.9 (L) MCV (fL) Date Value 06/03/2024 82.3 MCH (pg) Date Value 06/03/2024 26.0 MCHC (g/dL) Date Value 06/03/2024 31.5 RDW-CV (%) Date Value 06/03/2024 16.8 (H) Platelet Count (k/uL) Date Value 06/03/2024 123 (L) MPV (fL) Date Value 06/03/2024 12.5 Iron Date Value Ref Range Status 06/04/2024 25 (L) 41 - 186 ug/dL Final TIBC Date Value Ref Range Status 06/04/2024 490 (H) 232 - 386 ug/dL Final Ferritin Date Value Ref Range Status 06/04/2024 11.4 (L) 14.7 - 205.1 ng/mL Final Transferrin Saturation Date Value Ref Range Status 06/04/2024 5.1 (L) 15.0 - 57.0 % Final Assess for the need to augment a patient?s natural red blood cell production: - Blood transfusion avoidance - Iron depletion Recommendations according to Blood Management patient care guidelines: - Iron Sucrose 200 mg, IV infusion, dose(s) 5 total iron deficit using Ganzoni equation = 928 mg (Pre- wt 81 kg/goal hgb 11 g/dl) Clinical information is sent to a provider for review and evaluation for treatment.[facility]12-18-20[facility] History of Present illness Narrative* Carlos Morales, CHANA - 06/09/2024 1:16 PM EST Patient referred to Blood Management for evaluation and treatment of pre- surgical anemia and/or iron deficiency. Non-surgical: anemia in Date of surgery: NA Medical/Surgical History: PAST MEDICAL HISTORY Diagnosis Date 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) Generalized anxiety disorder No past surgical history on file. Other significant Medical/Surgical history: - None Current Outpatient Medications Medication Sig FLUoxetine HCl 20 mg tablet Take 1 tablet by mouth every afternoon. AMOXICILLIN ORAL Take by mouth. (Patient not taking: Reported on 05/25/2024) acetaminophen (TYLENOL) 500 mg tablet ferrous sulfate 325 mg (65 mg iron) tablet Take 1 tablet by mouth once daily. folic acid 1 mg tablet Take 1 tablet by mouth once daily. aspirin, enteric coated (ECOTRIN LOW STRENGTH) 81 mg EC tablet Take 1 tablet by mouth once daily. No current facility-administered medications for this visit. Current medications that may affect iron absorption and/or blood loss: - Aspirin Baseline laboratory values: WBC (k/uL) Date Value 06/03/2024 9.56 RBC (m/uL) Date Value 06/03/2024 3.39 (L) Hemoglobin (g/dL) Date Value 06/03/2024 8.8 (L) Hematocrit (%) Date Value 06/03/2024 27.9 (L) MCV (fL) Date Value 06/03/2024 82.3 MCH (pg) Date Value 06/03/2024 26.0 MCHC (g/dL) Date Value 06/03/2024 31.5 RDW-CV (%) Date Value 06/03/2024 16.8 (H) Platelet Count (k/uL) Date Value 06/03/2024 123 (L) MPV (fL) Date Value 06/03/2024 12.5 Iron Date Value Ref Range Status 06/04/2024 25 (L) 41 - 186 ug/dL Final TIBC Date Value Ref Range Status 06/04/2024 490 (H) 232 - 386 ug/dL Final Ferritin Date Value Ref Range Status 06/04/2024 11.4 (L) 14.7 - 205.1 ng/mL Final Transferrin Saturation Date Value Ref Range Status 06/04/2024 5.1 (L) 15.0 - 57.0 % Final Assess for the need to augment a patient s natural red blood cell production: - Blood transfusion avoidance - Iron depletion Recommendations according to Blood Management patient care guidelines: - Iron Sucrose 200 mg, IV infusion, dose(s) 5 total iron deficit using Ganzoni equation = 928 mg (Pre- wt 81 kg/goal hgb 11 g/dl) Clinical information is sent to a provider for review and evaluation for treatment. documented [facility] Telephone encounter Note * Telephone Encounter - Margarita Hearn RN - 06/03/2024 3:54 PM EST 35w4d Patient notified. Will have iron studies drawn tomorrow. Margarita Hearn RN [facility]12-12-2024 Miscellaneous Notes* Telephone Encounter - Margarita Hearn RN - 06/03/2024 3:54 PM EST 35w4d Patient notified. Will have iron studies drawn tomorrow. Margarita Hearn RN * Telephone Encounter - Margarita Hearn RN - 06/03/2024 3:15 PM EST Patient will need to have iron studies drawn first before Blood Management can work on referral. Please file pending orders. Will then call patient. Margarita Hearn RN * Telephone Encounter - Halle Orellana APRN.CNP - 06/03/2024 3:07 PM EST Hemoglobin 8.8. Blood management referral placed. Please assist in arranging. Halle Orellana APRN.CNP documented in this [facility]24 Telephone encounter Note * Telephone Encounter - Margarita Hearn RN - 06/03/2024 3:15 PM EST Patient will need to have iron studies drawn first before Blood Management can work on referral. Please file pending orders. Will then call patient. Margarita Hearn RN [facility]12-12-2024 Telephone encounter Note* Telephone Encounter - Halle Orellana APRN.CNP - 06/03/2024 3:07 PM EST Hemoglobin 8.8. Blood management referral placed. Please assist in arranging. Halle Orellana APRN.CNP [facility]12-12-2024 NoteHNO ID: [id number] Author: HALLE ORELLANA APRN.CNP Service: ? Author Type: Nurse Practitioner Type: Procedures Filed: 06/03/2024 14:58 Note Text: NST SUMMARY PROVIDER ASSESSMENT AND INTERPRETATION Indications for NST: Previous IUFD Baseline: 120 Variability: Moderate Accelerations: Present 15 X 15 Decelerations: None Interpretation: Reactive SIGNATURE: Halle Orellana APRN.CNPLou[facility] Procedure note* Halle Orellana APRN.CNP - 06/03/2024 2:04 PM EST NST SUMMARY PROVIDER ASSESSMENT AND INTERPRETATION Indications for NST: Previous IUFD Baseline: 120 Variability: Moderate Accelerations: Present 15 X 15 Decelerations: None Interpretation: Reactive SIGNATURE: Halle Orellana APRN.CNP [facility]12-12-2024 Procedure note* Halle Orellana APRN.CNP - 06/03/2024 2:04 PM EST NST SUMMARY PROVIDER ASSESSMENT AND INTERPRETATION Indications for NST: Previous IUFD Baseline: 120 Variability: Moderate Accelerations: Present 15 X 15 Decelerations: None Interpretation: Reactive SIGNATURE: Halle Orellana APRN.CNP documented in this encounterKindred [facility]12-12-2024 Progress note* Quick Notes - Halle Orellana APRN.CNP - 06/03/2024 1:46 PM EST EH - S: Shilpa is a 28 year old female who presents at 35w4d for a routine visit. Feeling movement. Denies headache, visual changes, chest pain, shortness of breath, vaginal bleeding, leakage of fluid, or dysuria. Feeling well, no complaints. O: See flow sheet Gen: No apparent distress Abd: Gravid, nontender, S=D ASSESSMENT/PLAN: 1. Supervision of high risk in third trimester - ICD9: V23.9, ICD10: O09.93 (primary diagnosis) 2. 35 weeks gestation of - ICD9: V22.2, ICD10: Z3A.35 - GBS next visit at 36 weeks 3. Polyhydramnios in third trimester complication, single or unspecified fetus - ICD9: 657.03, ICD10: O40.3XX0 - 28.8 cm on 05/12/24 - Growth scheduled for 06/11 4. History of IUFD - ICD9: V13.29, ICD10: Z87.59 - Continue weekly NST - Growth every 4 weeks 5. History of gestational hypertension - ICD9: V13.29, ICD10: Z87.59 - BP remains stable 6. Antepartum anemia complicating in third trimester - ICD9: 648.23, 285.9, ICD10: O99.013 - 10.2 on 04/13 - Continue oral iron - Recheck CBC today Labor precautions and kick counts reviewed. RTO 1 in week or sooner as needed. Halle Orellana APRN.NEON PUMPER [facility]12-12-2024 Miscellaneous Notes* Quick Notes - Halle Orellana APRN.NEON PUMPER - 06/03/2024 1:46 PM EST EH - S: Shilpa is a 28 year old female who presents at 35w4d for a routine visit. Feeling movement. Denies headache, visual changes, chest pain, shortness of breath, vaginal bleeding, leakage of fluid, or dysuria. Feeling well, no complaints. O: See flow sheet Gen: No apparent distress Abd: Gravid, nontender, S=D ASSESSMENT/PLAN: 1. Supervision of high risk in third trimester - ICD9: V23.9, ICD10: O09.93 (primary diagnosis) 2. 35 weeks gestation of - ICD9: V22.2, ICD10: Z3A.35 - GBS next visit at 36 weeks 3. Polyhydramnios in third trimester complication, single or unspecified fetus - ICD9: 657.03, ICD10: O40.3XX0 - 28.8 cm on 05/12/24 - Growth scheduled for 06/11 4. History of IUFD - ICD9: V13.29, ICD10: Z87.59 - Continue weekly NST - Growth every 4 weeks 5. History of gestational hypertension - ICD9: V13.29, ICD10: Z87.59 - BP remains stable 6. Antepartum anemia complicating in third trimester - ICD9: 648.23, 285.9, ICD10: O99.013 - 10.2 on 04/13 - Continue oral iron - Recheck CBC today Labor precautions and kick counts reviewed. RTO 1 in week or sooner as needed. Halle Orellana APRN.NEON PUMPER documented in this encounterKind[facility]12-12-2024 Instructions* Patient Instructions* Alicia Holliday MA - 06/03/2024 1:45 PM EST SEQUENTIAL SCREENINGS The [facility] offers sequential screenings for women who are interested in screenings for chromosomal abnormalities and certain defects during a . The sequential screen combinesultrasound and blood tests to determine the risk of chromosomal abnormalities, including Down's Syndrome (Trisomy 21) and Trisomy 18, as well as open neural tube defects including spina bifida. Ultrasound examination is performed between 11 weeks and 13 weeks gestational age. Blood tests are drawn after the ultrasound and again later in the between 15 and 21 weeks gestational age. Please let your physician know if you are interested in this testing. It will require an appointment withour technician's helper. This is not an ultrasound performed by a physician in our office during a routine visit. SIGNS AND SYMPTOMS OF LABOR 1. Contractions every 10 minutes or more often 2. Clear, pink, or brownish fluid (water) leaking from vagina 3. Feeling that baby is pushing down, pressure 4. Low, dull backache 5. Cramps that feel like a period 6. Cramps with or without diarrhea If you notice any of the above symptoms, contact our office at [phone] and ask to speak with anurse. After hours, you can call doctors registry at [phone] OR call [facility] at [phone] ask to have the doctor nurse practitioner hospitalist paged. If you consider this an emergency, dial 9-1-1 or go to your nearest emergency department. NEED HELP? Are you dealing with a violent or abusive relationship? Are you a victim of rape or sexual assult? Call [facility] ([place]) 24 hour Crisis Hotline: 230.176.2451 or 367-797-0469. MANUAL Your Guide to a Healthy manual is now on-line. Visit the [email or web address] to download your free copy documented in this encounterKindred [facility]12-03-2024 NoteHNO ID: [id number] Author: JEANETTE PATEL MD Service: ? Author Type: Physician Type: Progress Notes Filed: 05/25/2024 13:45 Note Text: NST SUMMARY PROVIDER ASSESSMENT AND INTERPRETATION Shilpa Hoang is a 28 year old female, , who is at 34w2d with an JANE of 07/04/2024, by Last Menstrual Period dating method. Indications for NST: IUGR Baseline: 125 Variability: Moderate Accelerations: Present 15 X 15 Decelerations: None Contractions: TOCO: None Interpretation: Reactive SIGNATURE: Jeanette Patel [facility]12-03-2024 History of Present illness Narrative* Jeanette Patel MD - 05/25/2024 1:45 PM EST NST SUMMARY PROVIDER ASSESSMENT AND INTERPRETATION Shilpa Hoang is a 28 year old female, , who is at 34w2d with an JANE of 07/04/2024, by Last Menstrual Period dating method. Indications for NST: IUGR Baseline: 125 Variability: Moderate Accelerations: Present 15 X 15 Decelerations: None Contractions: TOCO: None Interpretation: Reactive SIGNATURE: Jeanette Patel MD documented in this encounterKind[facility]12-[facility]-2024 Progress note* Quick Notes - Jeanette Patel MD - 05/25/2024 1:37 PM EST KJ - VB No. LOF No. CTXS No. Movement: present. Other c/o: No. Medication list reviewed. Physical Exam See Flow Sheet Gen: no accute distress, well appearing A/P 34w2d Estimated Date of Delivery: 07/04/24 H/o IUFD - continue weekly NSTs PTL precautions reviewed, Kick counts reviewed. Jeanette Patel MD [facility]12-03-2024 Miscellaneous Notes* Quick Notes - Jeanette Patel MD - 05/25/2024 1:37 PM EST KJ - VB No. LOF No. CTXS No. Movement: present. Other c/o: No. Medication list reviewed. Physical Exam See Flow Sheet Gen: no accute distress, well appearing A/P 34w2d Estimated Date of Delivery: 07/04/24 H/o IUFD - continue weekly NSTs PTL precautions reviewed, Kick counts reviewed. Jeanette Patel MD documented in this encounterKind[facility]12-03-2024 Instructions* Patient Instructions* Babita Blankenship LPN - 05/25/2024 1:15 PM EST SEQUENTIAL SCREENINGS The [facility] offers sequential screenings for women who are interested in screenings for chromosomal abnormalities and certain defects during a . The sequential screen combinesultrasound and blood tests to determine the risk of chromosomal abnormalities, including Down's Syndrome (Trisomy 21) and Trisomy 18, as well as open neural tube defects including spina bifida. Ultrasound examination is performed between 11 weeks and 13 weeks gestational age. Blood tests are drawn after the ultrasound and again later in the between 15 and 21 weeks gestational age. Please let your physician know if you are interested in this testing. It will require an appointment withour technician's helper. This is not an ultrasound performed by a physician in our office during a routine visit. SIGNS AND SYMPTOMS OF LABOR 1. Contractions every 10 minutes or more often 2. Clear, pink, or brownish fluid (water) leaking from vagina 3. Feeling that baby is pushing down, pressure 4. Low, dull backache 5. Cramps that feel like a period 6. Cramps with or without diarrhea If you notice any of the above symptoms, contact our office at [phone] and ask to speak with anurse. After hours, you can call doctors registry at [phone] OR call [facility] at [phone] ask to have the doctor nurse practitioner hospitalist paged. If you consider this an emergency, dial 9--1 or go to your nearest emergency department. NEED HELP? Are you dealing with a violent or abusive relationship? Are you a victim of rape or sexual assult? Call [facility] ([place]) 24 hour Crisis Hotline: 333.596.1562 or 476-642-3369. MANUAL Your Guide to a Healthy manual is now on-line. Visit [email or web address] to download your free copy documented in this encounterKind[facility]11-28-2024 Telephone encounter Note * Telephone Encounter - Rex Nam RN - 05/20/2024 3:57 PM EST Reason for call: Patient's calling regarding [employer] page sent. Patient missed the call fromprovider, requesting that another page be sent. Outcome: Conferenced to [place] [employer] Answering Service [ ] to speak with provider priscilla for Dr. Alcala. Per Boo at answering service, calls needs to be handled by [employer]. Transferred to [facility] tool grinder operator (), states that page was sent for [employer] nurse practitioner hospitalist. Updated patient's on plan of care, verbalized understanding, no further questions/concerns at this time. GO TO THE EMERGENCY ROOM OR CALL 911 IF: * You develop any new symptoms * Your condition worsens * You are concerned or anxious about your condition for any other reason. If you have any questions, you can call Nurse ammonium nitrate neutralizer back. [facility]-28-2024 Miscellaneous Notes* Telephone Encounter - Rex Nam RN - 05/20/2024 3:57 PM EST Reason for call: Patient's calling regarding [employer] page sent. Patient missed the call fromprovider, requesting that another page be sent. Outcome: Conferenced to [place] [employer] [facility] [facility]swering Service [ ] to speak with provider priscilla for Dr. Alcala. Per Boo at answering service, calls needs to be handled by Cu[employer]. Transferred to [facility] tool grinder operator (), states that page was sent for [employer] nurse practitioner hospitalist. Updated patient's on plan of care, verbalized understanding, no further questions/concerns at this time. GO TO THE EMERGENCY ROOM OR CALL 911 IF: * You develop any new symptoms * Your condition worsens * You are concerned or anxious about your condition for any other reason. If you have any questions, you can call Nurse ammonium nitrate neutralizer back. documented in this encounterKindred [facility]11-28-2024 Telephone encounter Note * Telephone Encounter - Deanna Olivares RN - 05/20/2024 3:36 PM EST Patient calling regarding she is 34 weeks and is having swelling in her feet and hands. Conferenced to [place] [employer] Answering [phone] to speak with provider nurse practitioner hospitalist for Dr. Margarita Alcala. [facility]11-28-2024 Miscellaneous Notes* Telephone Encounter - Deanna Olivares RN - 05/20/2024 3:36 PM EST Patient calling regarding she is 34 weeks and is having swelling in her feet and hands. Conferenced to [place] [employer] Answering [phone] to speak with provider nurse practitioner hospitalist for Dr. Margarita Alcala. documented in this encounterKindred [facility]11-20-2024 Progress note* Quick Notes - Sarah Huber MD - 05/12/2024 3:59 PM EST DM-Pt doing well. Denies vaginal Bleeding, Leaking fluid, or regular Contractions. Pt reports good movement. Had growth us and bpp today. Physical Exam: Gen: female in no apparent distress Abd: soft, Gravid. Non tender to palpation. See flow sheet @ 32.3 [facility] Assessment & Plan Supervision of high risk in third trimester History of IUFD 32 weeks gestation of Orders: RSV VACCINE, BIVALENT (ABRYSVO) weekly NSTs Kick counts , RTO 2 wks routine OB, NST weekly Needs to start Iron Sarah Warner MD [facility]11-20-2024 Miscellaneous Notes* Quick Notes - Sarah Huber MD - 05/12/2024 3:59 PM EST DM-Pt doing well. Denies vaginal Bleeding, Leaking fluid, or regular Contractions. Pt reports good movement. Had growth us and bpp today. Physical Exam: Gen: female in no apparent distress Abd: soft, Gravid. Non tender to palpation. See flow sheet @ 32.3 [facility] Assessment & Plan Supervision of high risk in third trimester History of IUFD 32 weeks gestation of Orders: RSV VACCINE, BIVALENT (ABRYSVO) weekly NSTs Kick counts , RTO 2 wks routine OB, NST weekly Needs to start Iron Sarah Warner MD documented in this encounterKindred [facility]11-20-2024 Note Indication Evaluation of growth, Evaluation of well-being IUFD 26 weeks, Maternal obesity, BMI >30 Impression REMOTE READ - Single, live, intrauterine . - The biometry is consistent with the assigned gestational dating. - The EFW is 2154 g, at the 66%. AC is at the 87%. - The amniotic fluid volume is mild polyhydramnios with an MVP of 8.7 cm and an EDE of 28.8 cm. - The placenta is anterior, fundal. - BPP 01/28. - No malformations visualized on a limited survey as detailed below. Recommendations Continue testing Maternal Assessment Height 163 cm Height (ft) 5 ft Height (in) 4 in Physical Exam Initial weight (lb) 177 lb Initial BMI 30.38 kg/m Maternal assessment other: 5 Para 3 Method Transabdominal ultrasound examination Marquez . Number of fetuses: 1 Dating LMP on: 09/28/2023 GA by LMP 32 w + 3 d JANE by LMP: 07/04/2024 GA by prior assessment 32 w + 3 d JANE by prior assessment: 07/04/2024 Ultrasound examination on: 05/12/2024 GA by U/S based upon: AC, BPD, Femur, HC GA by U/S 33 w + 6 d JANE by U/S: 06/24/2024 Assigned: based on the LMP, selected on 01/01/2024 Assigned GA 32 w + 3 d Assigned JANE: 07/04/2024 General Evaluation Cardiac activity present. FHR 138 bpm. movements: present. Presentation: cephalic Placenta: Placental site: anterior, fundal Umbilical cord: Cord vessels: 3 vessel cord Amniotic fluid: Amount of AF: mild polyhydramnios. MVP 8.7 cm. EDE 28.8 cm. Q1 6.7 cm, Q2 8.7 cm, Q3 5.3 cm, Q4 8.1 cm Biophysical Profile 2: breathing movements 2: Gross body movements 2: tone 2: Amniotic fluid volume 8 Biophysical profile score Growth Overview Exam date GA BPD (mm) HC (mm) AC (mm) FL (mm) HL (mm) EFW (g) 02/17/2024 20w 2d 45.5 28% 176 44% 165.3 83% 28.6 14% 28.8 20% 349 49% 03/17/2024 24w 3d 59.6 39% 231.7 66% 207.7 70% 40.9 24% 713 47% 04/14/2024 28w 3d 73.5 72% 275.5 74% 244.1 50% 47.9 4% 1163 24% 05/12/2024 32w 3d 87.4 98% 323.5 94% 299.4 87% 57.9 10% 2154 66% Biometry Standard BPD 87.4 mm 35w 2d 98% Hadlock OFD 114.3 mm 35w 5d 91% Nicolaides HC 323.5 mm 35w 5d 94% Ed AC 299.4 mm 33w 6d 87% Hadlock Femur 57.9 mm 30w 2d 10% Ed EFW 2,154 g 33w 0d 66% Hadlock EFW (lb) 4 lb EFW (oz) 12 oz EFW by: Hadlock (HC-AC-FL) Extended [employer] Installer 3.5 mm Extremities / Bony Struc FL / HC 0.18 Other Structures FHR 138 bpm Anatomy Lateral ventricles: normal Cavum septi pellucidi: normal Cerebellum: normal Cisterna magna: normal 4-chamber view: normal RVOT view: normal LVOT view: normal 3-vessel view: normal Heart / Thorax Situs: situs solitus (normal) Diaphragm: normal Stomach: normal Kidneys: normal Bladder: normal sex: male Wants to know sex: yes Performed By: Khushboo Easley RDMS, RVT Read By: Tyler Farrell M.D.MATERNAL [id number] Instructions* Patient Instructions* Terrie Ramirez MA - 05/12/2024 3:26 PM EST SEQUENTIAL SCREENINGS The [facility] offers sequential screenings for women who are interested in screenings for chromosomal abnormalities and certain defects during a . The sequential screen combinesultrasound and blood tests to determine the risk of chromosomal abnormalities, including Down's Syndrome (Trisomy 21) and Trisomy 18, as well as open neural tube defects including spina bifida. Ultrasound examination is performed between 11 weeks and 13 weeks gestational age. Blood tests are drawn after the ultrasound and again later in the between 15 and 21 weeks gestational age. Please let your physician know if you are interested in this testing. It will require an appointment withour technician's helper. This is not an ultrasound performed by a physician in our office during a routine visit. SIGNS AND SYMPTOMS OF LABOR 1. Contractions every 10 minutes or more often 2. Clear, pink, or brownish fluid (water) leaking from vagina 3. Feeling that baby is pushing down, pressure 4. Low, dull backache 5. Cramps that feel like a period 6. Cramps with or without diarrhea If you notice any of the above symptoms, contact our office at [phone] and ask to speak with anurse. After hours, you can call [facility] at [phone] OR call [facility] at [phone] ask to have the doctor nurse practitioner hospitalist paged. If you consider this an emergency, dial or go to your nearest emergency department. NEED HELP? Are you dealing with a violent or abusive relationship? Are you a victim of rape or sexual assult? Call [facility] ([place]) 24 hour Crisis Hotline: 554.248.4594 or 231-211-6600. MANUAL Your Guide to a Healthy manual is now on-line. Visit [email or web address] to download your free copy documented in this encounterKind[facility]24 Telephone encounter Note * Telephone Encounter - Nicci Mckeon RN - 04/29/2024 9:35 AM EST Pt notified of need for weekly NSTs starting at 32 weeks. Appointments set up for next 3 weeks. Nicci Mckeon RN [facility]11-07-2024 Telephone encounter Note* Telephone Encounter - Nicci Mckeon RN - 04/29/2024 9:35 AM EST Images from the original note were not included. Margarita Alcala MD [facility] Ob-Director Style Pool This patient is also suppose to be weekly NSTs at 32 weeks because of HX of IUFD ([facility] recommended) She was suppose to schedule theses as she left and it does not appear she did. [facility]11-07-2024 Miscellaneous Notes* Telephone Encounter - Nicci Mckeon RN - 04/29/2024 9:35 AM EST Pt notified of need for weekly NSTs starting at 32 weeks. Appointments set up for next 3 weeks. Nicci Mckeon RN * Telephone Encounter - Nicci Mckeon RN - 04/29/2024 9:35 AM EST Images from the original note were not included. Margarita Alcala MD [facility] Ob-Director Style Pool This patient is also suppose to be weekly NSTs at 32 weeks because of HX of IUFD ([facility] recommended) She was suppose to schedule theses as she left and it does not appear she did. documented in this encounterKind[facility]-2024 Progress note* Quick Notes - Margarita Alcala MD - 04/28/2024 5:04 PM EST S: Shilpa Hoang is a 28 year old female who presents at 07/04/2024, by Last Menstrual Period for aroutine visit. Denies headache, visual changes, chest pain, shortness of breath, vaginal bleeding, leakage of fluid, or dysuria. Feeling well, no complaints. Good movement, No contractions O: See flow sheet Gen: No apparent distress Abd: Gravid, nontender ASSESSMENT/PLAN: 1. Supervision of high risk in third trimester - ICD9: V23.9, ICD10: O09.93 (primary diagnosis) 2. 30 weeks gestation of - ICD9: V22.2, ICD10: Z3A.30 PTL precautions 3. History of IUFD - ICD9: V13.29, ICD10: Z87.59 Weekly NSTs at 32 weeks - NON-STRESS TEST Margarita Alcala MD [facility]11-06-2024 Miscellaneous Notes* Quick Notes - Margarita Alcala MD - 04/28/2024 5:04 PM EST S: Shilpa Hoang is a 28 year old female who presents at 07/04/2024, by Last Menstrual Period for aroutine visit. Denies headache, visual changes, chest pain, shortness of breath, vaginal bleeding, leakage of fluid, or dysuria. Feeling well, no complaints. Good movement, No contractions O: See flow sheet Gen: No apparent distress Abd: Gravid, nontender ASSESSMENT/PLAN: 1. Supervision of high risk in third trimester - ICD9: V23.9, ICD10: O09.93 (primary diagnosis) 2. 30 weeks gestation of - ICD9: V22.2, ICD10: Z3A.30 PTL precautions 3. History of IUFD - ICD9: V13.29, ICD10: Z87.59 Weekly NSTs at 32 weeks - NON-STRESS TEST Margarita Alcala MD documented in this encounterKind[facility]11-[facility]-2024 Instructions* Patient Instructions* Terrie Ramirez MA - 04/28/2024 1:29 PM EST SEQUENTIAL SCREENINGS The [facility] offers sequential screenings for women who are interested in screenings for chromosomal abnormalities and certain defects during a . The sequential screen combinesultrasound and blood tests to determine the risk of chromosomal abnormalities, including Down's Syndrome (Trisomy 21) and Trisomy 18, as well as open neural tube defects including spina bifida. Ultrasound examination is performed between 11 weeks and 13 weeks gestational age. Blood tests are drawn after the ultrasound and again later in the between 15 and 21 weeks gestational age. Please let your physician know if you are interested in this testing. It will require an appointment withour technician's helper. This is not an ultrasound performed by a physician in our office during a routine visit. SIGNS AND SYMPTOMS OF LABOR 1. Contractions every 10 minutes or more often 2. Clear, pink, or brownish fluid (water) leaking from vagina 3. Feeling that baby is pushing down, pressure 4. Low, dull backache 5. Cramps that feel like a period 6. Cramps with or without diarrhea If you notice any of the above symptoms, contact our office at [phone] and ask to speak with anurse. After hours, you can call doctors registry at [phone] OR call [facility] at [phone] ask to have the doctor nurse practitioner hospitalist paged. If you consider this an emergency, dial 9--1 or go to your nearest emergency department. NEED HELP? Are you dealing with a violent or abusive relationship? Are you a victim of rape or sexual assult? Call [facility] ([place]) 24 hour Crisis Hotline: 772.972.4368 or 155-653-4626. MANUAL Your Guide to a Healthy manual is now on-line. Visit [email or web address] to download your free copy documented in this encounter[facility] Telephone encounter Note * Telephone Encounter - Margarita Hearn RN - 04/22/2024 4:43 PM EDT Left detailed message on identified voicemail. Margarita Hearn RN [facility]10-31-2024 Miscellaneous Notes* Telephone Encounter - Margarita Hearn RN - 04/22/2024 4:43 PM EDT Left detailed message on identified voicemail. Margarita Hearn RN * Telephone Encounter - Johana Turner APRN.CNM - 04/22/2024 3:06 PM EDT If patient is not having any current pain or cramping, and feeling positive movement, I am fine forher to monitor at home. She can be seen tomorrow in office if needed. Johana Turner APRN.CNM * Telephone Encounter - Margarita Hearn RN - 04/22/2024 12:47 PM EDT .29w4d Patient called with c/o pelvic pain and pressure. Last night her pain was a 6 out of 10. The pain stopped this morning at 6 AM, but she still has the pelvic pressure. Denies leaking of fluid, urinaryfrequency or dysuria. Would you like patient seen in office today? If so, where can patient be added. Thank you. Margarita Hearn RN documented in this [facility]10-31-2024 Telephone encounter Note * Telephone Encounter - Johana Turner APRN.CNM - 04/22/2024 3:06 PM EDT If patient is not having any current pain or cramping, and feeling positive movement, I am fine forher to monitor at home. She can be seen tomorrow in office if needed. Johana Turner APRN.CNM [facility] Work Phone: 1(117) 406-577110-31-2024 Telephone encounter Note* Telephone Encounter - Margarita Hearn RN - 04/22/2024 12:47 PM EDT .29w4d Patient called with c/o pelvic pain and pressure. Last night her pain was a 6 out of 10. The pain stopped this morning at 6 AM, but she still has the pelvic pressure. Denies leaking of fluid, urinaryfrequency or dysuria. Would you like patient seen in office today? If so, where can patient be added. Thank you. Margarita Hearn RN [facility]10-28-2024 Telephone encounter Note* Telephone Encounter - Carla Mckinney RN - 04/19/2024 8:48 AM EDT 3rd risk assessment form submitted 04/19/24 Carla Mckinney RN [facility]10-28-2024 Miscellaneous Notes* Telephone Encounter - Carla Mckinney RN - 04/19/2024 8:48 AM EDT 3rd risk assessment form submitted 04/19/24 Carla D Faye RN documented in this encounterKindred [facility]10-23-2024 Note Indication Evaluation of growth Maternal obesity, BMI >30, IUFD 26 weeks Impression REMOTE READ - Single, live, intrauterine . - The biometry is consistent with the assigned gestational dating. - The EFW is 1163 g, at the 24%. AC is at the 50%. - The amniotic fluid volume is mild polyhydramnios with an MVP of 8.1 cm and an EDE of 23.8 cm. - The placenta is anterior, fundal. - No malformations visualized on a limited survey as detailed below. Ultrasound Consultation Mild polyhydramnios was identified. Polyhydramnios is typically defined by an amniotic fluid index > 24 cm or a MVP > 8 cm. The leading diagnosis for increased fluid in the third trimester is idiopathic (i.e. normal variant). The differential diagnosis also includes maternal conditions such as diabetes mellitus or insulin resistance. Rare causes include hydrops, absence of swallowing which can be secondary to neurologic conditions or GI obstruction such as esophageal atresia or duodenal atresia. There is no evidence of any structural abnormalities on ultrasound. With any ultrasound there is potential for non-visualized malformations. Recommend repeat assessment of growth and fluid in four weeks. Recommendations Growth in four weeks Maternal Assessment Height 163 cm Height (ft) 5 ft Height (in) 4 in Physical Exam Initial weight (lb) 177 lb Initial BMI 30.38 kg/m Maternal assessment other: 5 Para 3 Method Transabdominal ultrasound examination. View: Suboptimal view: limited by late gestational age Marquez . Number of fetuses: 1 Dating LMP on: 09/28/2023 GA by LMP 28 w + 3 d JANE by LMP: 07/04/2024 GA by prior assessment 28 w + 3 d JANE by prior assessment: 07/04/2024 Ultrasound examination on: 04/14/2024 GA by U/S based upon: AC, BPD, Femur, HC GA by U/S 28 w + 3 d JANE by U/S: 07/04/2024 Assigned: based on the LMP, selected on 01/01/2024 Assigned GA 28 w + 3 d Assigned JANE: 07/04/2024 General Evaluation Cardiac activity present. FHR 138 bpm. movements: present. Presentation: breech Placenta: Placental site: anterior, fundal Umbilical cord: Cord vessels: 3 vessel cord Amniotic fluid: Amount of AF: mild polyhydramnios. MVP 8.1 cm. EDE 23.8 cm. Q1 3.9 cm, Q2 6.5 cm, Q3 5.3 cm, Q4 8.1 cm Growth Overview Exam date GA BPD (mm) HC (mm) AC (mm) FL (mm) HL (mm) EFW (g) 02/17/2024 20w 2d 45.5 28% 176 44% 165.3 83% 28.6 14% 28.8 20% 349 49% 03/17/2024 24w 3d 59.6 39% 231.7 66% 207.7 70% 40.9 24% 713 47% 04/14/2024 28w 3d 73.5 72% 275.5 74% 244.1 50% 47.9 4% 1163 24% Biometry Standard BPD 73.5 mm 29w 3d 72% Hadlock OFD 98.0 mm 29w 0d 76% Nicolaides HC 275.5 mm 29w 3d 74% Ed AC 244.1 mm 28w 5d 50% Hadlock Femur 47.9 mm 26w 1d 4% Ed EFW 1,163 g 27w 5d 24% Hadlock EFW (lb) 2 lb EFW (oz) 9 oz EFW by: Hadlock (HC-AC-FL) [employer] Installer 3.5 mm Extremities / Bony Struc FL / HC 0.17 Other Structures FHR 138 bpm Anatomy Lateral ventricles: normal Cavum septi pellucidi: normal Cerebellum: normal Cisterna magna: normal 4-chamber view: normal RVOT view: normal LVOT view: normal 3-vessel view: normal Heart / Thorax Situs: situs solitus (normal) Diaphragm: normal Stomach: normal Kidneys: normal Bladder: normal sex: male Wants to know sex: yes Performed By: Khushboo Easley RDMS, RVT Read By: Tyler Farrell M.D.MATERNAL [id number] Progress note* Quick Notes - Margarita Alcaal MD - 04/14/2024 10:42 AM EDT S: Shilpa Hoang is a 28 year old female who presents at 07/04/2024, by Last Menstrual Period for aroutine visit. Denies headache, visual changes, chest pain, shortness of breath, vaginal bleeding, leakage of fluid, or dysuria. Feeling well, no complaints. Good movement, No contractions O: See flow sheet Gen: No apparent distress Abd: Gravid, nontender TDAp today Declined LARC US- EFW 27%, EDE 23 Reviewed 28 week labs Hgb 10.2- has iron supplement but hasn't been taking it ASSESSMENT/PLAN: 1. 28 weeks gestation of - ICD9: V22.2, ICD10: Z3A.28 (primary diagnosis) 2. Supervision of high risk in second trimester - ICD9: V23.9, ICD10: O09.92 3. History of IUFD - ICD9: V13.29, ICD10: Z87.59 With trauma 4. Need for vaccination - ICD9: V05.9, ICD10: Z23 Tdap today Margarita Alcala MD [facility]10-23-2024 Miscellaneous Notes* Quick Notes - Margarita Alcala MD - 04/14/2024 10:42 AM EDT S: Shilpa Hoang is a 28 year old female who presents at 07/04/2024, by Last Menstrual Period for aroutine visit. Denies headache, visual changes, chest pain, shortness of breath, vaginal bleeding, leakage of fluid, or dysuria. Feeling well, no complaints. Good movement, No contractions O: See flow sheet Gen: No apparent distress Abd: Gravid, nontender TDAp today Declined LARC US- EFW 27%, EDE 23 Reviewed 28 week labs Hgb 10.2- has iron supplement but hasn't been taking it ASSESSMENT/PLAN: 1. 28 weeks gestation of - ICD9: V22.2, ICD10: Z3A.28 (primary diagnosis) 2. Supervision of high risk in second trimester - ICD9: V23.9, ICD10: O09.92 3. History of IUFD - ICD9: V13.29, ICD10: Z87.59 With trauma 4. Need for vaccination - ICD9: V05.9, ICD10: Z23 Tdap today Margarita Alcala MD documented in this encounterKindred [facility]10-23-2024 NoteHNO ID: [id number] Author: IDA CISNEROS MA Service: ? Author Type: [employer] Business [employer] Type: Progress Notes Filed: 04/14/2024 11:09 Note Text: Patient identified by name and date of . Shilpa Hoang presents today for a vaccination of Tdap. Patient denies an allergy to latex: yes Patient denies a severe (life-threatening) allergy to a previous dose of Tdap, DTP, DTaP, DT or Td vaccine. Yes Patient denies history of epilepsy or neurological problems: Yes Patient is afebrile and denies being moderately or severely ill: Yes Patient denies history of Guillain-Stinnett Syndrome (a severe paralytic illness): Yes Tdap Adacel injection was given without incident. See immunizations for details of immunizations administered today. VIS sheet provided: Yes Provider Margarita Alcala MD was present in office at time of injection. Ida Cisneros [facility]10-23-2024 History of Present illness Narrative* Ida Cisneros MA - 04/14/2024 10:28 AM EDT Patient identified by name and date of . Shilpa Hoang presents today for a vaccination of Tdap. Patient denies an allergy to latex: yes Patient denies a severe (life-threatening) allergy to a previous dose of Tdap, DTP, DTaP, DT or Td vaccine. Yes Patient denies history of epilepsy or neurological problems: Yes Patient is afebrile and denies being moderately or severely ill: Yes Patient denies history of Guillain-Stinnett Syndrome (a severe paralytic illness): Yes Tdap Adacel injection was given without incident. See immunizations for details of immunizations administered today. VIS sheet provided: Yes Provider Margarita Alcala MD was present in office at time of injection. Ida Cisneros MA documented in this encounterKindred [facility]10-23-2024 Instructions* Patient Instructions* Ida Cisneros MA - 04/14/2024 10:26 AM EDT SEQUENTIAL SCREENINGS The [facility] offers sequential screenings for women who are interested in screenings for chromosomal abnormalities and certain defects during a . The sequential screen combinesultrasound and blood tests to determine the risk of chromosomal abnormalities, including Down's Syndrome (Trisomy 21) and Trisomy 18, as well as open neural tube defects including spina bifida. Ultrasound examination is performed between 11 weeks and 13 weeks gestational age. Blood tests are drawn after the ultrasound and again later in the between 15 and 21 weeks gestational age. Please let your physician know if you are interested in this testing. It will require an appointment withour technician's helper. This is not an ultrasound performed by a physician in our office during a routine visit. SIGNS AND SYMPTOMS OF LABOR 1. Contractions every 10 minutes or more often 2. Clear, pink, or brownish fluid (water) leaking from vagina 3. Feeling that baby is pushing down, pressure 4. Low, dull backache 5. Cramps that feel like a period 6. Cramps with or without diarrhea If you notice any of the above symptoms, contact our office at [phone] and ask to speak with anurse. After hours, you can call doctors registry at [phone] OR call [facility] at [phone] ask to have the doctor nurse practitioner hospitalist paged. If you consider this an emergency, dial 9-1-0 or go to your nearest emergency department. NEED HELP? Are you dealing with a violent or abusive relationship? Are you a victim of rape or sexual assult? Call [facility] ([facility] 24 hour Crisis Hotline: 747.478.9258 or 841-359-5377. MANUAL Your Guide to a Healthy manual is now on-line. Visit [email or web address] to download your free copy documented in this encounterKindred [facility]10-11-2024 Progress note* Quick Notes - Marcela Connors APRN.CNM - 04/02/2024 4:21 PM EDT KEARA-S: Shilpa Hoang is a 28 year old female who presents at 26w5d with JANE:07/04/2024, by Last Menstrual Period for a routine visit. Denies headache, visual changes, chest pain, shortness of breath, vaginal bleeding, leakage of fluid, or dysuria. Dry cough, aches, hot flashes. No fever, no sinus pressure. Went to urgent care and given Amoxicillin. Pressure coming and going and will stay for several minutes. No urinary complaints. O: See flow sheet Gen: No apparent distress Abd: Gravid, nontender ASSESSMENT/PLAN: 1. Supervision of high risk in second trimester 2. Abdominal pain during in second trimester -Reviewed URI and can cause all over body aches. Rest, hydration, warm bath and continue course of Amoxicillin. If worsening or new symptoms arise to call. -No signs of PTL at this time but reviewed. 3. 27 weeks gestation of PTL precautions reviewed and when to call RTO as scheduled for routine visit Marcela Connors APRN.CNM [facility] Work Phone: 1(565) 929-324410-11-2024 Miscellaneous Notes* Quick Notes - Marcela Connors APRN.CNM - 04/02/2024 4:21 PM EDT KEARA-S: Shilpa Hoang is a 28 year old female who presents at 26w5d with JANE:07/04/2024, by Last Menstrual Period for a routine visit. Denies headache, visual changes, chest pain, shortness of breath, vaginal bleeding, leakage of fluid, or dysuria. Dry cough, aches, hot flashes. No fever, no sinus pressure. Went to urgent care and given Amoxicillin. Pressure coming and going and will stay for several minutes. No urinary complaints. O: See flow sheet Gen: No apparent distress Abd: Gravid, nontender ASSESSMENT/PLAN: 1. Supervision of high risk in second trimester 2. Abdominal pain during in second trimester -Reviewed URI and can cause all over body aches. Rest, hydration, warm bath and continue course of Amoxicillin. If worsening or new symptoms arise to call. -No signs of PTL at this time but reviewed. 3. 27 weeks gestation of PTL precautions reviewed and when to call RTO as scheduled for routine visit Marcela Connors APRN.CNM documented in this encounterKindred [facility]10-11-2024 Instructions* Patient Instructions* Shahzad Romero MA - 04/02/2024 4:18 PM EDT SEQUENTIAL SCREENINGS The [facility] offers sequential screenings for women who are interested in screenings for chromosomal abnormalities and certain defects during a . The sequential screen combinesultrasound and blood tests to determine the risk of chromosomal abnormalities, including Down's Syndrome (Trisomy 21) and Trisomy 18, as well as open neural tube defects including spina bifida. Ultrasound examination is performed between 11 weeks and 13 weeks gestational age. Blood tests are drawn after the ultrasound and again later in the between 15 and 21 weeks gestational age. Please let your physician know if you are interested in this testing. It will require an appointment withour technician's helper. This is not an ultrasound performed by a physician in our office during a routine visit. SIGNS AND SYMPTOMS OF LABOR 1. Contractions every 10 minutes or more often 2. Clear, pink, or brownish fluid (water) leaking from vagina 3. Feeling that baby is pushing down, pressure 4. Low, dull backache 5. Cramps that feel like a period 6. Cramps with or without diarrhea If you notice any of the above symptoms, contact our office at [phone] and ask to speak with anurse. After hours, you can call doctors registry at [phone] OR call [facility] at [phone] ask to have the doctor nurse practitioner hospitalist paged. If you consider this an emergency, dial 9-1-1 or go to your nearest emergency department. NEED HELP? Are you dealing with a violent or abusive relationship? Are you a victim of rape or sexual assult? Call [facility] ([place]) 24 hour Crisis Hotline: 429.973.6884 or 072-300-6053. MANUAL Your Guide to a Healthy manual is now on-line. Visit [email or web address] to download your free copy documented in this encounterKindred [facility]09-25-2024 Note Indication Evaluation of growth IUFD 26 weeks, Obesity, BMI >30 Impression REMOTE READ - Single, live, intrauterine . - The biometry is consistent with the assigned gestational dating. - The EFW is 713 g, at the 47%. AC is at the 70%. - Amniotic fluid volume is normal amount with an MVP of 5.1 cm and EDE of 15.4 cm. - The placenta is anterior, fundal. - No malformations visualized on a limited survey as detailed below. Recommendations Growth in four weeks Maternal Assessment Height 163 cm Height (ft) 5 ft Height (in) 4 in Physical Exam Initial weight (lb) 177 lb Initial BMI 30.38 kg/m Maternal assessment other: 5 Para 3 Method Transabdominal ultrasound examination Marquez . Number of fetuses: 1 Dating LMP on: 09/28/2023 GA by LMP 24 w + 3 d JANE by LMP: 07/04/2024 GA by prior assessment 24 w + 3 d JANE by prior assessment: 07/04/2024 Ultrasound examination on: 03/17/2024 GA by U/S based upon: AC, BPD, Femur, HC GA by U/S 24 w + 4 d JANE by U/S: 07/03/2024 Assigned: based on the LMP, selected on 01/01/2024 Assigned GA 24 w + 3 d Assigned JANE: 07/04/2024 General Evaluation Cardiac activity present. FHR 140 bpm. movements: present. Presentation: cephalic Placenta: Placental site: anterior, fundal Umbilical cord: Cord vessels: 3 vessel cord Amniotic fluid: Amount of AF: normal amount. MVP 5.1 cm. EDE 15.4 cm. Q1 3.0 cm, Q2 5.1 cm, Q3 4.7 cm, Q4 2.7 cm Growth Overview Exam date GA BPD (mm) HC (mm) AC (mm) FL (mm) HL (mm) EFW (g) 02/17/2024 20w 2d 45.5 28% 176 44% 165.3 83% 28.6 14% 28.8 20% 349 49% 03/17/2024 24w 3d 59.6 39% 231.7 66% 207.7 70% 40.9 24% 713 47% Biometry Standard BPD 59.6 mm 24w 2d 39% Hadlock OFD 83.9 mm 25w 2d 89% Nicolaides HC 231.7 mm 25w 0d 66% Ed AC 207.7 mm 25w 2d 70%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 aspirin Jeanette Patel MD [facility]07-11-2024 Miscellaneous Notes* Quick Notes - Jeanette Patel MD - 01/01/2024 10:47 AM EDT KJ - VB No. LOF No. CTXS No. Movement: absent. Other c/o: No. Medication list reviewed. Physical Exam See Flow Sheet Gen: no accute distress, well appearing A/P 13w4d Estimated Date of Delivery: 07/04/24 NT with sequential H/o IUFD - MFM consult with Anatomy US H/o gestational hypertension - continue aspirin Jeanette Patel MD documented in this encounterKindred [facility]07-11-2024 Instructions* Patient Instructions* Shahzad Romero MA - 01/01/2024 9:55 AM EDT SEQUENTIAL SCREENINGS The [facility] offers sequential screenings for women who are interested in screenings for chromosomal abnormalities and certain defects during a . The sequential screen combinesultrasound and blood tests to determine the risk of chromosomal abnormalities, including Down's Syndrome (Trisomy 21) and Trisomy 18, as well as open neural tube defects including spina bifida. Ultrasound examination is performed between 11 weeks and 13 weeks gestational age. Blood tests are drawn after the ultrasound and again later in the between 15 and 21 weeks gestational age. Please let your physician know if you are interested in this testing. It will require an appointment withour technician's helper. This is not an ultrasound performed by a physician in our office during a routine visit. SIGNS AND SYMPTOMS OF LABOR 1. Contractions every 10 minutes or more often 2. Clear, pink, or brownish fluid (water) leaking from vagina 3. Feeling that baby is pushing down, pressure 4. Low, dull backache 5. Cramps that feel like a period 6. Cramps with or without diarrhea If you notice any of the above symptoms, contact our office at [phone] and ask to speak with anurse. After hours, you can call doctors registry at [phone] OR call [facility] at [phone] ask to have the doctor nurse practitioner hospitalist paged. If you consider this an emergency, dial 9-1-4 or go to your nearest emergency department. NEED HELP? Are you dealing with a violent or abusive relationship? Are you a victim of rape or sexual assult? Call [facility] ([place]) 24 hour Crisis Hotline: 325.653.3407 or 038-342-1287. MANUAL Your Guide to a Healthy manual is now on-line. Visit [email or web address] to download your free copy documented in this encounterKindred [facility]07-01-2024 Telephone encounter Note * Telephone Encounter - Sarah Huber MD - 12/22/2023 3:06 PM EDT signed [facility] Miscellaneous Notes* Telephone Encounter - Sarah Huber MD - 12/22/2023 3:06 PM EDT signed * Telephone Encounter - Khushboo Abraham RN - 12/22/2023 3:04 PM EDT Patient notified and voiced understanding. Please file pended order. Khushboo Abraham RN * Telephone Encounter - Sarah Huber MD - 12/22/2023 2:51 PM EDT Phenergan ordered * Telephone Encounter - Margarita Hearn RN - 12/22/2023 2:41 PM EDT 12w1d Patient asking for medication for N/V. Has tried Vitamin B6 without the Unisom and had little relief. Vomiting once a day. Keeping fluids down. Eating very little. Recommended patient eat small snacks and include some protein to keep BS regulated. Can something be called in for her? Margarita Hearn RN documented in this encounterKindred [facility]07-01-2024 Telephone encounter Note * Telephone Encounter - Khushboo Abraham RN - 12/22/2023 3:04 PM EDT Patient notified and voiced understanding. Please file pended order. Khushboo Abraham RN [facility]07-01-2024 Telephone encounter Note* Telephone Encounter - Sarah Huber MD - 12/22/2023 2:51 PM EDT Phenergan ordered [facility]07-01-2024 Telephone encounter Note* Telephone Encounter - Margarita Hearn RN - 12/22/2023 2:41 PM EDT 12w1d Patient asking for medication for N/V. Has tried Vitamin B6 without the Unisom and had little relief. Vomiting once a day. Keeping fluids down. Eating very little. Recommended patient eat small snacks and include some protein to keep BS regulated. Can something be called in for her? Margarita Hearn RN [facility]-20[facility] Progress note* Quick Notes - Tyshawn Lorenzana MD - 12/01/2023 12:16 PM EDT Pt is a multip presenting at 9w1d with c/o cramping in the absence of UTI and concerns regarding status. Recent trips t0 [facility] ER with dx of URI/viral and currently on amox per Dr. Irina Mckinney, Pt denies bleeding and is refraining from intercourse (last time 2 days ago) with exacerbation of cramps. Trans abdominal sono reveals heart activity. IMP viable IUP at 9w1d Plan no intercourse and otherwise activity other than heavy lifting. RTO PNC as scheduled Tyshawn Lorenzana MD . [facility] Work Phone: [phone] 198-561406-10-2024 Miscellaneous Notes* Quick Notes - Tyshawn Lorenzana MD - 12/01/2023 12:16 PM EDT Pt is a multip presenting at 9w1d with c/o cramping in the absence of UTI and concerns regarding status. Recent trips t0 [facility] ER with dx of URI/viral and currently on amox per Dr. Irina Mckinney, Pt denies bleeding and is refraining from intercourse (last time 2 days ago) with exacerbation of cramps. Trans abdominal sono reveals heart activity. IMP viable IUP at 9w1d Plan no intercourse and otherwise activity other than heavy lifting. RTO PNC as scheduled Tyshawn Lorenzana MD . documented in this encounterKind[facility]-10-[facility]24 Instructions* Patient Instructions* La Bowden MA - 12/01/2023 12:00 PM EDT SEQUENTIAL SCREENINGS The [facility] offers sequential screenings for women who are interested in screenings for chromosomal abnormalities and certain defects during a . The sequential screen combinesultrasound and blood tests to determine the risk of chromosomal abnormalities, including Down's Syndrome (Trisomy 21) and Trisomy 18, as well as open neural tube defects including spina bifida. Ultrasound examination is performed between 11 weeks and 13 weeks gestational age. Blood tests are drawn after the ultrasound and again later in the between 15 and 21 weeks gestational age. Please let your physician know if you are interested in this testing. It will require an appointment withour technician's helper. This is not an ultrasound performed by a physician in our office during a routine visit. SIGNS AND SYMPTOMS OF LABOR 1. Contractions every 10 minutes or more often 2. Clear, pink, or brownish fluid (water) leaking from vagina 3. Feeling that baby is pushing down, pressure 4. Low, dull backache 5. Cramps that feel like a period 6. Cramps with or without diarrhea If you notice any of the above symptoms, contact our office at [phone] and ask to speak with anurse. After hours, you can call doctors registry at [phone] OR call [facility] at [phone] ask to have the doctor nurse practitioner hospitalist paged. If you consider this an emergency, dial [phone] or go to your nearest emergency department. NEED HELP? Are you dealing with a violent or abusive relationship? Are you a victim of rape or sexual assult? Call [facility] ([place]) 24 hour Crisis Hotline: 243.658.9430 or 321-121-3028. MANUAL Your Guide to a Healthy manual is now on-line. Visit [email or web address] to download your free copy documented in this encounterKindred [facility]05-24-2024 Telephone encounter Note * Telephone Encounter - Liza Champagne RN - 11/14/2023 9:56 AM EDT 1st risk assessment form submitted 11/14/2023 6w 5d today [facility] Miscellaneous Notes* Telephone Encounter - Liza Champagne RN - 11/14/2023 9:56 AM EDT 1st risk assessment form submitted 11/14/2023 6w 5d today documented in this encounterKindred [facility]05-20-2024 History of Present illness Narrative* Sharda Valero APRN.KAITLYNN - 11/10/2023 3:12 PM EDT INITIAL OB ASSESSMENT HPI: Shilpa is a 27 year old No obstetric history on file. White here to establish Obstetrical Care. NoLMP recorded. from OB Dating Form. was unplanned but accepted Complaints: Abdominal pain OB History No obstetric history on file. Previous history: Prior : never History of 4th degree laceration: No History of shoulder dystocia: No History of Hypertensive disorders including pre-eclampsia or gestational hypertension: Yes History of gestational diabetes: No Patient's Risk Screening for delivery: Have you had a prior marquez between 20w and 36w6d? Yes Did you present in active spontaneous labor or have ruptured membranes, or advanced cervical dilation (greater than or equal to4 cm) or effacement? Yes How many pregnancies have you had before? 5 Did you have a previous baby with a GBS Infection? No Please select all that apply for any prior : N/A MEDICAL/PSYCHOSOCIAL HISTORY: History of hemorrhage or bleeding concerns: No Thyroid Disease: No History of chronic hypertension: No History of pre-existing diabetes: No No results found for: ABORHD No weight on file for this encounter. Last Pap: 2021 History of abnormal pap: Yes Prior treatment for cervical dysplasia: none. History of STDs: chlamydia Partner History of STDs: None and chlamydia Did you have a partner with Herpes? No Tobacco use: No E-Cigarette/Vaping Use: No Caffeine use: Yes Drug use: No Alcohol use: No Multivitamin with Folic acid: No Would refuse blood transfusion if medically necessary: No Social Needs: How often does this describe you? I don't have enough money to pay my bills: Sometimes Within the past 12 months, have you worried that your food would run out before you had money to buy more? Never In the past 12 months, has lack of reliable transportation kept you from going to medical appointments or work, or from getting things needed for daily living? Never In the past 12 months, have you had any concerns about having a place to live, or about the condition or quality of your housing? Never Would you like more information on any of the following (please check all that apply)? Social History: Do you have any history of depression, anxiety, PTSD, or other mood problems? Yes Do you have a history of abuse or trauma that may impact your experience? No Are you currently employed? Yes Depression/Anxiety Screening: denies, admits to symptoms of depression. OB Depression and Anxiety Screening- This Encounter (since 11/09/2023) None Genetic Screening: Partner present: No Patient verbalized knowledge of partner family health history: Yes Do you or your partner have any personal or family history of defects not previously discussed: No Do you have history of a complicated by anomaly, genetic condition, or demise: No Low Dose ASA Screening: Screening for low dose aspirin use for the prevention of pre-eclampsia: High risk factors: high BP during last Moderate risk ractors: Obesity (body mass index greater than 30) OB Risk Screening: Completed, no positive findings documented. 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 No past surgical history on file. No current outpatient medications on file. No current facility-administered medications for this visit. Allergies As of Date: 11/13/2023 (No Known Allergies) Fully Assessed 06/07/2022 Does patient have penicillin allergy: No REVIEW OF SYSTEMS: GENERAL: Negative for: Fever or Chills HEENT: Negative for: Headache, Impaired Vision, Ringing in Ears, Nosebleeds NECK: Negative for: Swelling, Pain, Stiffness RESPIRATORY: Negative for: Cough, Shortness of breath, Wheezing GASTROINTESTINAL: Negative for: Heartburn, Constipation, Diarrhea, Blood in stool, Vomiting and Positive for: Nausea MUSCULOSKELETAL: Negative for: Muscle or joint pain, stiffness, Joint swelling NEUROLOGIC/PSYCHIATRIC: Negative for: Weakness, Paralysis, Numbness, Tingling, Tremor, Anxiety, Depression, Memory loss SKIN: Negative for: Rash, Itching GENITOURINARY: Negative for: vaginal itching, vaginal discharge, hematuria or dysuria PHYSICAL EXAM: There were no vitals taken for this visit. GENERAL: pleasant in no apparent distress DERMATOLOGY: Normal, without lesions, non-icteric, and non-hirsute NECK: Supple, full range of motion, no adenopathy, and thyroid normal CHEST: Normal inspiratory effort BREAST: soft, non-tender, symmetric, no dominant mass, normal nipple-areolar complex, no lymphadenopathy, and no nipple discharge ABDOMEN: soft, non-tender, and no masses NEURO: alert and oriented x3,exam grossly non-focal PELVIS: External genitalia normal without lesions. Perineal body intact. No vaginal or cervical lesions. Cervix closed. No adnexal masses or tenderness. Clinical Pelvimetry: Pelvimetry clinically assessed as adequate Limited OB ultrasound exam: single intrauterine , positive cardiac activity, and POCUS performed. +cardiac activity, CRL consistent with LMP. Sharda Valero, BARTENDER MANAGER.NEON PUMPER ASSESSMENT: 27 year old No obstetric history on file. at Unknown wks gestational age PLAN: 1) Patient oriented to practice. Patient given new OB orientation folder. Discussed nutrition, folic acid supplementation, dietary guidelines, exercise, smoking, alcohol, caffeine, and drug use. Discussed gestational weight gain guidelines. Discussed routine OB labs including STD/HIV. Discussed how to access Your guide to a health and the Veterinary Anatomist. Discussed hemoglobin electrophoresis. Patient: Declines Reviewed midwifery and marketing and public relations manager services that are available. 2) Screening: Hemoglobin A1C: ordered Baby Aspirin: The patient has been counseled about the potential benefits of low dose aspirin in and our recommendation that this be offered to all patients, regardless of whether they meet the high risk criteria specified above. She Accepts Aneuploidy Screening: Discussed aneuploidy screening, nuchal translucency/first trimester early anatomy ultrasound and NIPT. The risks/benefits and limitations of NIPT/aneuploidy screening were reviewed including the potential for false negative and false positive results. The availability of genetic counseling was reviewed. Information on aneuploidy screening was provided. The patient chooses toproceed with First trimester early anatomy ultrasound (12-13w6d) Myriad Carrier Screening: Discussed myriad carrier screening. We discussed the availability of professional-society guided carrier screening and reviewed the conditions screened and limitations of screening. The availability of genetic counseling was reviewed. Information on carrier screening was provided. The patient will check with insurance 3) Patient offered option of Virtual Visits. Patient unsure. May consider in future. 4) Obesity (BMI >30), will order early glucose screen or Hemoglobin A1C. Follow up in 5 weeks or sooner prn. Sharda Valero APRN.KAITLYNN documented in this encounterKindred [facility]05-20-2024 Instructions* Patient Instructions* Rachana Montanez LPN - 11/10/2023 3:12 PM EDT Please select the following link to access the [facility] Your Guide to a Healthy . [email or web address] Please select the following link to access the [facility] Your Guide to a Healthy . [email or web address] documented in this encounterKindred Hospital [facility]01-25-2024 Discharge summary Author Piter Bertrand [facility] July 17, 2023 4:54pm Note Date/Time July 17, 2023 4 :55pm [facility] Medical Records Department [address] [place] [address] Emergency Department Summary 07/17/23 MR#: [id number] Acct: [id number] Name: SHILPA HOANG Rep #:[id number] : 1995 27 From: Piter Bertrand MD PCP: Dr. David Mckinney MD Status:PRE ER Location: ED HPI History of Present Illness HPI Narrative: Slipped and fell on a wet floor while cleaning injuring her right shoulder and right wrist. She is right-hand dominant. Prior injury but no prior surgery or fracture. Did not hit her head no LOC. No other complaints. Chief Complaint: Upper Extremity Injury Informant: patient Occured/Mechanism Mechanism/Context: No injury and No blunt trauma Onset/Context/Timing Onset: Today and Hours Context: Sudden Onset Timing: Continuous Quality of Pain: Dull and Aching Current Severity: Mild Maximum Severity: Mild Associated Symptoms Associated Symptoms: Negative for Parasthesia, Weakness or Loss of Funtion Narrative Narrative: 27-year-old female was cleaning slipped and injured her right shoulder as she went down a tiled floor and right wrist. Prior similar symptoms: No Recent Illness/Hospitalization: No PFSH PFSH Medical History Anxiety Cervical myofascial strain History of placental abruption depression (spontaneous vaginal delivery) Trauma Home Medications [id number]-FA 1 mg tablet 1 tab PO DAILY 09/13/21 [History Last Taken 02/17/22 09:00] ferrous sulfate 325 mg (65 mg iron) tablet (Iron (ferrous sulfate)) 325 mg PO DAILY 02/17/22 [History Last Taken 02/14/22 21:00] naproxen 500 mg tablet (Naprosyn) 500 mg PO BID PRN pain #20 tabs 01/08/23 [Rx Last Taken Unknown] Allergy/AdvReac Type Severity Reaction Status Date / Time No Known Allergies Allergy Verified 07/17/23 15:42 Social History number of children: 2 Smoking Status: Former smoker alcohol intake: former 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 Review of Systems ROS Unobtainable: Denies due to encephalopathy Constitutional Constitutional ED: Denies chills Eyes Eyes: Denies blurry vision ENT ENT ED: Denies ear pain Cardiovascular Cardiovascular: Denies chest pain Respiratory/Chest Respiratory/Chest: Denies cough or dyspnea Gastrointestinal Gastrointestinal: Denies abdominal pain Genitourinary Genitourinary ED: Denies dysuria Musculoskeletal Musculoskeletal: Denies back pain Integumentary Denies abscess Neurologic Neurologic: Denies headache(s) Psychiatric Psychiatric: Denies anxiety Endocrine Endocrinology: Denies cold intolerance Hematologic/Lymphatic Hematologic/Lymphatic: Denies easy bleeding, easy bruising or lymphadenopathy Allergic/Immunologic Allergic/Immunologic ED: Denies mouth swelling, tongue swelling or urticaria EXAM Physical Exam Narrative Exam Narrative: Well-appearing young female. Vital signs stable afebrile. HEENT exam unremarkable atraumatic. Pupils round reactive light. Extra motions are intact. Face and scalp nontender no hematomas. Neck nontender full range of motion. Trachea midline nontender. Back nontender spine nontender no bruising. Lungs clear to auscultation bilaterally. Heart regular rhythm no murmur. Rateabout 90. Chest wall and ribs nontender. Abdomen soft nontender. Pelvic girdle intact. Moving all 4 extremities. Full range of motion no deformity both upper and lower extremities. 5 out of 5 tester regulator strength bilaterally. Dorsi plantarflexion intact. Mild tenderness right posterior upper shoulder no bruising. Full range of motion of the right shoulder. Able to lift her arm overhead. Full flexion extension of the right elbow nontender. Minimal tenderness to the dorsum of the right wrist no deformity normal radial pulse normal tester regulator strength and sensation of the right hand. Neurologically she is awake and alert with no focal motor deficits. Const Vital Signs: 07/17/23 15:42 Temperature 97.6 F L Temperature Source Temporal Pulse Rate 89 Respiratory Rate 18 Blood Pressure 121/87 H Blood Pressure Mean 98 Pulse Ox 100 Oxygen Delivery Method Room Air Positive well nourished and well developed; Negative for obese, cachectic, contractures or unkempt General Appearance ED: well developed and NAD; Negative for unkempt, cachectic, contractures, cyanotic or diaphoretic Nutritional Appearance: Negative for cachectic or obese HEENT Reports moist mucous membranes normocephalic and atraumatic; Negative for trauma or tenderness Eyes PERRL and EOMs intact bilaterally General Eye ED: Negative for other Neck full ROM and supple General: Negative for tenderness Chest Wall inspection of chest normal and palpation of chest normal Chest: Negative for other Resp normal respiratory effort and clear to auscultation bilaterally Effort and Inspection: Negative for pain with movement Auscultation: Negative for rales, rhonchi or wheezes Cardio regular rate, regular rhythm, S1 normal heart sound, S2 normal heart sound and no murmurs Rate: Negative for bradycardia or tachycardic Rhythm: Negative for abnormal rhythm GI non-tender, non-distended and no masses Inspection: Negative for abdominal distention Auscultation: normoactive bowel sounds Palpation: soft; Negative for tender or guarding Bladder / Kidney Exam: No other Back/Spine no CVA tenderness General Back: Negative for CVA tenderness Cervical Spine: Negative for cervical spine tenderness Thoracic Spine / Upper Back: Negative for thoracic spinal tenderness Lumbar Spine / Lower Back: Negative for lumbar spinal tenderness Extremity normal to inspection and full ROM Extremity Narrative: Mild tenderness right wrist. Mild tenderness right posterior shoulder. Full range of motion each. No swelling. No deformity. General Extremety ED: Negative for edema General Extremity: Negative for edema Neuro oriented x3, CN's II-XII intact bilaterally, moves all extremities, no focal motor deficits and no sensory deficits noted Sensorium / Orientation: alert, oriented to person, oriented to place and oriented to time; Negative for orientation impaired, lethargic or stuporous Motor Exam: strength 5/5 throughout Psych mental status grossly normal Appearance: Negative for unkempt Attitude: No agitated Mood & Affect: Negative for depressed, anxious or tearful Skin General Skin Exam: Negative for petechiae Lesions: no lesions Rashes: no rashes Trauma: no lacerations or abrasions; Negative for abrasion or laceration MDM MDM MDM Narrative Medical decision making narrative: 27-year-old fell cleaning x-rays were obtained in the right shoulder and wrist which were read as normal. No fracture or dislocation. Treated as a right shoulder strain and a right wrist sprain. Lab Data Labs: Right wrist x-ray 3 views interpreted by myself and the radiologist shows no acute abnormality. No fracture or dislocation. Right shoulder x-ray 4 views interpreted by myself and the radiologist shows no acute abnormality no fracture or dislocation. Radiography Diagnostic Testing: Clinical Impression(s) from Imaging Studies Shoulder X-Ray 07/17/23 15:45 IMPRESSION: Normal x-ray examination of the shoulder. Electronically Signed: Norman Ryder MD at 16:49 EST Reading Location ID and State: [facility] / [place] , Service support , Wrist X-Ray 07/17/23 15:45 IMPRESSION: Normal x-ray examination of the wrist. Electronically Signed: Norman Ryder MD at 16:48 EST , Discharge Plan Triage Chief Complaint: Upper Extremity Injury ED Provider: Piter Bertrand Dx/Rx/DC Orders Clinical Impression: Muscle strain of right shoulder, Sprain of wrist, right Instructions: ED Muscle Strain, Extremity, ED Wrist Sprain Prescriptions: No Action + Iron 1 mg Tablet 1 tab PO DAILY ferrous sulfate [Iron (ferrous sulfate)] 325 mg (65 mg iron) Tablet 325 mg PO DAILY naproxen [Naprosyn] 500 mg tablet 500 mg PO BID PRN (Reason: pain) Qty: 20 0RF Primary Care Provider: David Mckinney Referrals: David Mckinney MD [Primary Care Provider] - 1 Week if not improving Activity Restrictions/Additional Instructions: Hot shower warm bath and heating pad to the right shoulder. You strained a muscle in your right shoulder. Ice and elevate the right wrist you have a rightwrist sprain. Motrin, Advil or ibuprofen for pain and swelling. Tylenol for pain. Your x-rays were normal. Nothing broken or dislocated. This should progressively improve over the next week if not follow-up with your doctor to have it reevaluated. Disposition Disposition: Home, Self Care What to do if you have Problems For any increased pain, shortness of breath, bleeding, nausea or vomiting, chestpain, or any unexpected problems, contact your Primary Care Provider. Call Doctors Registry ([phone]) or report to the closest Emergency Room. Call 911 if necessary. 07/17/23 6989 <Electronically signed by Piter Bertrand MD> Cosigner Signature (if applicable): CC: Dr. David Mckinney MD ~ Signed [facility] Work Phone: 1(848) 405-901810-25-2023 Discharge summary Author Jaonna England [facility] April 16, 2023 11:19am Note Date/Time April 16, 2023 1 1:19am [facility] Physical [facility] [address] [place] [address]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 gestation of state, incidental Obesity affecting in second trimester, unspecified obesity type Supervision of high risk in second trimester- Primary Unspecified high-risk History of IUFD History of gestational hypertension 24 weeks gestation of state, incidental Supervision of high risk in third trimester- Primary Unspecified high-risk Antepartum anemia complicating in third trimester History of gestational hypertension History of IUFD Leg swelling in in third trimester Breech presentation with problem, single or unspecified fetus 36 weeks gestation of state, incidental care and examination immediately after delivery- Primary [facility] Diagnosis History of IUFD- Primary Encounter for supervision of other normal in second trimester History of gestational hypertension History of drug abuse (HCC) Other, mixed, or unspecified nondependent drug abuse, in remission 20 weeks gestation of state, incidental Obesity affecting in second trimester, unspecified obesity type Supervision of high risk in second trimester- Primary Unspecified high-risk History of IUFD History of gestational hypertension 24 weeks gestation of state, incidental Supervision of high risk in third trimester- Primary Unspecified high-risk Antepartum anemia complicating in third trimester History of gestational hypertension History of IUFD Leg swelling in in third trimester Breech presentation with problem, single or unspecified fetus 36 weeks gestation of state, incidental care and examination- Primary Routine follow-up Screening for malignant neoplasm of cervix Screening for malignant neoplasm of the cervix Encounter for other general counseling or advice on contraception documented in this encounter [facility] note* Diagnosis History of IUFD- Primary Encounter for supervision of other normal in second trimester History of gestational hypertension History of drug abuse (HCC) Other, mixed, or unspecified nondependent drug abuse, in remission 20 weeks gestation of state, incidental Obesity affecting in second trimester, unspecified obesity type Supervision of high risk in second trimester- Primary Unspecified high-risk History of IUFD History of gestational hypertension 24 weeks gestation of state, incidental Supervision of high risk in third trimester- Primary Unspecified high-risk Antepartum anemia complicating in third trimester History of gestational hypertension History of IUFD Leg swelling in in third trimester Breech presentation with problem, single or unspecified fetus 36 weeks gestation of state, incidental Encounter for IUD insertion- Primary Encounter for insertion of intrauterine contraceptive device [facility] History of [facility]- Primary Encounter for supervision of other normal in second trimester ([facility]) History of gestational hypertension History of drug abuse ([facility]) Other, mixed, or unspecified nondependent drug abuse, in remission 20 weeks gestation of ([facility]) state, incidental Obesity affecting in second trimester, unspecified obesity type ([facility]) Supervision of high risk in second trimester ([facility])- Primary Unspecified high-risk History of IUFD History of gestational hypertension 24 weeks gestation of ([facility]) state, incidental Supervision of high risk in third trimester ([facility])- Primary Unspecified high-risk Antepartum anemia complicating in third trimester ([facility]) History of gestational hypertension History of IUFD Leg swelling in in third trimester ([facility]) Breech presentation with problem, single or unspecified fetus ([facility]) 36 weeks gestation of ([facility]) state, incidental with uncertain dates, antepartum ([facility])- Primary state, incidental 12 weeks gestation of ([facility]) state, incidental History of gestational hypertension Late care ([facility]) Insufficient care Generalized anxiety disorder History of drug abuse ([facility]) Other, mixed, or unspecified nondependent drug abuse, in remission Vapes nicotine containing substance Encounter for supervision of high risk in second trimester, antepartum ([facility]) History of IUFD [facility] Work Phone: Hospital Discharge instructionsAmbulatory Orders* ON- CALL NEEDED: [facility]ify [facility] Doppler Study Ordered Location: None Selected Additional Instructions You will be called tomorrow to come in for venous ultrasound of your leg. This will ensure there is no evidence of a blood clot. Please use Tylenol as needed for pain.[facility] Work Phone: Hospital Discharge instructionsWParkview Health Work Phone: Hospital Discharge instructions Additional Instructions Follow-up with your PCP, return for any worsening of your symptoms. You can take [id number] cold and flu medications. Stay well-hydrated. Try to get a home portable pulse oximeter and closely watch your oxygen levels periodically. If you stay below 90% for more than a minute or so, and/or you are feeling like your breathing is getting worse, return to the emergency department for further evaluation. Currently, CDC recommendations state that you should stay home through day 5 of symptoms, then as long as symptoms are improving, if you need to go to work or somewhere else you may for days 6-10 as long as you are wearing a mask the entire time. If you are feeling better after day 10 you may resume life is normal.[facility] Work Phone: Hospital Discharge instructions Additional Instructions Please ensure that you drink enough water. Please return here for any worsening symptomsWParkview Health Work Phone: Hospital Discharge instructions Additional Instructions Hot shower warm bath and heating pad to the right shoulder. You strained a muscle in your right shoulder. Ice and elevate the right wrist you have a right wrist sprain. Motrin, Advil or ibuprofen for pain and swelling. Tylenol for pain. Your x-rays were normal. Nothing broken or dislocated. This should progressively improve over the next week if not follow-up with your doctor to have it reevaluated.[facility] Work Phone: Hospital Discharge instructions Additional Instructions Thank you for trusting us with your care today! Given diagnosed with a viral upper respiratory tract infection, dehydration. Please try to take additional fluids by mouth I recommend Pedialyte, body armor or Gatorade. Please take Tylenol (2 pills, 650 mg), ibuprofen (2 pills, 400 mg) every 6 hours as needed for pain and fever control. Please take Zofran as needed for nausea and vomiting Please return to the emergency department if your symptoms change or worsen. Please follow with your primary care physician for further outpatient evaluation and management.[facility] Work Phone: Hospital Discharge instructions Additional Instructions Thank you for trusting us with your care today! Please take Tylenol (2 pills, 650 mg), every 6 hours as needed for pain and fever control. Please take antibiotics until course completed. Please return to the emergency department if your symptoms change or worsen. Specifically develop vomiting, if you develop severe swelling underneath your jaw. Please follow with dentistry (separate handout/resources provided) for further outpatient evaluation and management.[facility] Work Phone: Hospital Discharge instructions Additional Instructions Your urine sample today showed changes concerning for a UTI and therefore take the antibiotic as directed. Continue with Zofran to prevent further bouts of nausea and keep yourself well-hydrated. In order to further assess the cause of your abdominal pain during obtain the outpatient transvaginal ultrasound as ordered. If you develop worsening pain a fever or vaginal bleeding or have any further concerns please return to the ER for repeat evaluation.[facility] Work Phone: Reason for referral (narrative)* Diagnostic Procedure Only (Routine) - Authorized Specialty Diagnoses / Procedures Referred By Contac t Referred To Contact [facility] Diagnoses 6 weeks gestation of Procedures NUCHAL TRANSLUCENCY WHI US NUCHAL TRANSLUCENCY 1ST GESTATION Sharda Valero APRN.CNP [address] [place] [address] [place] [id number] [place] [id number] Referral ID Status Reason Start Date Expiration Date Visits Requested Visits Authorized [id number] Authorized Auto-Generat ed Referral 11/13/2023 11/12/2024 1 1 [facility] for referral (narrative)* Diagnostic Procedure Only (Routine) - New Request Specialty Diagnoses / Procedures Referred By Contac t Referred To Contact [facility] Diagnoses History of IUFD Procedures OBSTETRIC ULTRASOUND WHI US PREG UTERUS AFTER 1ST TRIMEST GESTATION Jeanette Patel MD [address] [place] [address] [facility] [place] [address] Referral ID Status Reason Start Date Expiration Date Visits Requested Visits Authorized [id number] New Request Auto-Generat ed Referral 02/17/2024 02/16/2025 2 1 [facility] for referral (narrative)* Diagnostic Procedure Only (Routine) - New Request Specialty Diagnoses / Procedures Referred By Contac t Referred To Contact [facility] Diagnoses Supervision of other high risk pregnancies, third trimester Polyhydramnios in third trimester complication, single or unspecified fetus History of IUFD Procedures OBSTETRIC ULTRASOUND WHI US PREG UTERUS AFTER 1ST TRIMEST GESTATION Jt Lugo MD [address] [place] [address] [address] Referral ID Status Reason Start Date Expiration Date Visits Requested Visits Authorized [id number] New Request Auto-Generat ed Referral 04/14/2025 3 1 [facility] for referral (narrative)* Outpatient Procedure (Routine) - New Request Specialty Diagnoses / Procedures Referred By Contac t Referred To Contact [facility] Diagnoses History of IUFD Procedures NON-STRESS TEST NON-STRESS TEST Margarita Alcala MD [address] [place] [address] [address] Referral ID Status Reason Start Date Expiration Date Visits Requested Visits Authorized [id number] New Request Auto-Generat ed Referral 04/28/2024 04/28/2025 1 1 [facility] for referral (narrative)* Outpatient Procedure (Routine) - Authorized Specialty Diagnoses / Procedures Referred By Contac t Referred To Contact [facility] Diagnoses Encounter for other general counseling or advice on contraception Procedures INSERT INTRAUTERINE DEVICE LEVONORGESTREL IU 52MG 5 YR INSERT INTRAUTERINE DEVICE Sharda Valero APRN.CNP [address] [place] [address] [address] Referral ID Status Reason Start Date Expiration Date Visits Requested Visits Authorized [id number] Authorized Auto-Generat ed Referral 07/29/2024 07/29/2025 1 1 [facility])No reason for referral information availableWParkview Health Work Phone: Chief Complaint and Reason for Visit Chief Complaint REPEAT HCG COVID FOR TRAVEL DIZZINESS, ABD PAIN R/O LABOR Reason for Visit 22 weeks gestation o f Vaginal bleeding during , antepartum Chief Complaint DIZZINESS, ABD PAIN R/O LABOR RULE OUT LABOR Reason for Visit 22 weeks gestation o f Vaginal bleeding during , antepartum Chief Complaint DIZZINESS, ABD PAIN R/O LABOR RULE OUT LABOR Reason for Visit 22 weeks gestation o f Vaginal bleeding during , antepartum Chief Complaint DIZZINESS, ABD PAIN R/O LABOR RULE OUT LABOR RIGHT FOOT SWELLING Reason for Visit 22 weeks gestation o f Vaginal bleeding during , antepartum Chief Complaint DIZZINESS, ABD PAIN R/O LABOR RULE OUT LABOR RIGHT FOOT SWELLING E ORDER Reason for Visit 22 weeks gestation o f Vaginal bleeding during , antepartum Chief Complaint R/O LABOR RULE OUT LABOR RIGHT FOOT SWELLING E ORDER RULE OUT LABOR VAG DELIVERY Reason for Visit 22 weeks gestation o f Vaginal bleeding during , antepartum Irregular contractions Gestational hypertension Chief Complaint R/O LABOR RULE OUT LABOR RIGHT FOOT SWELLING E ORDER RULE OUT LABOR Reason for Visit 22 weeks gestation o f Vaginal bleeding during , antepartum Chief Complaint right leg Chief Complaint right leg general illness Chief Complaint right leg general illness BACK PAIN/RX HERE Chief Complaint general illness BACK PAIN/RX HERE COLD SX Chief Complaint general illness BACK PAIN/RX HERE COLD SX weakness Chief Complaint BACK PAIN/RX HERE COLD SX weakness Chief Complaint BACK PAIN/RX HERE COLD SX weakness ARM INJURY Chief Complaint COLD SX weakness ARM INJURY GENERAL ILLNESS Chief Complaint Admit Date VERSION June 14, 2024 10:00am VAGINAL DELIVERY June 17, 2024 3:30pm DENTAL October 02, 2024 10: 37pm Reason for Visit Admit Date 37 weeks gestation of June 17, 2024 3:30pm Anemia affecting in third trim dayanna June 17, 2024 3:30pm Gestational hypertension June 17, 2024 3:30pm Gestational thrombocytopenia June 172023 3:30pm History of drug use June 17, 2024 3:30pm Positive GBS test June 17, 2024 3:30pm hypertension June 17, 2 024 3:30pm (spontaneous vaginal delivery) Decem kadie 2023 3:30pm Chief Complaint Admit Date VERSION June 14, 2024 10:00am VAGINAL DELIVERY June 17, 2024 3:30pm DENTAL October 02, 2024 10: 37pm NAUSEA October 11, 2024 11: 39pm Chief Complaint Admit Date DENTAL October 02, 2024 10: 37pm NAUSEA October 11, 2024 11: 39pm ABD PAIN October 21, 2024 4:31pm Advance Directives No Advanced Directives Records Found Advance Directive Response Recorded Date/ Time Advance Directives No June 30, 2016 6:49pm Living Will No September 13, 2021 11:23am Power of Button Reclaimer No September 13 11:23am Advance Directive Response Recorded Date/ Time Advance Directives No June 30, 2016 6:49pm Living Will No December 22, 2021 9 :23pm Power of Button Reclaimer No December 22, 2021 9:23pm Advance Directive Response Recorded Date/ Time Advance Directives No June 30, 2016 6:49pm Living Will No February 20 5:12pm Power of Button Reclaimer No February 20 2 022 5:12pm Advance Directive Response Recorded Date/ Time Advance Directives No June 30, 2016 5:49pm Living Will No February 20 4:12pm Power of Button Reclaimer No February 20 2 022 4:12pm Advance Directive Response Recorded Date/ Time Advance Directives No June 30, 2016 6:49pm Living Will No January 08, 2023 3:14pm Power of Button Reclaimer No January 08 3:14pm Advance Directive Response Recorded Date/ Time Advance Directives No June 30, 2016 6:49pm Living Will No February 24, 2 023 4:26pm Power of Button Reclaimer No February 24, 2023 4:26pm Advance Directive Response Recorded Date/ Time Advance Directives No June 30, 2016 5:49pm Living Will No February 24, 2 023 3:26pm Power of Button Reclaimer No February 24, 2023 3:26pm Advance Directive Response Recorded Date/ Time Advance Directives No June 30, 2016 5:49pm Living Will No May 11, 2 023 5:41pm Power of Button Reclaimer No May 11, 2023 5:41pm Advance Directive Response Recorded Date/ Time Advance Directives No June 30, 2016 5:49pm Living Will No June 10, 023 12:08pm Power of Button Reclaimer No June 10, 2023 12:08pm Advance Directive Response Recorded Date/ Time Advance Directives No June 30, 2016 5:49pm Living Will No July 17 4:36pm Power of Button Reclaimer No July 17, 2023 4:36pm Advance Directive Response Recorded Date/ Time Advance Directives No June 30, 2016 5:49pm Living Will No August 10 024 10:41am Power of Button Reclaimer No August 10, 2023 10:41am Advance Directive Response Recorded Date/ Time Living Will No October 02, 2024 10:46pm Do you have a Healthcare Power of Button Reclaimer? No October 02, 2024 10:46pm Living Will No June 17 024 4:41pm Do you have a Healthcare Power of Button Reclaimer? No June 17, 2024 4:41pm Advance Directives No June 30, 2016 6:49pm Advance Directive Response Recorded Date/ Time Living Will No October 02, 2024 10:46pm Do you have a Healthcare Power of Button Reclaimer? No October 02, 2024 10:46pm Living Will No June 17 4:41pm Do you have a Healthcare Power of Button Reclaimer? No June 17, 2024 4:41pm Living Will No October 11, 2024 11:41pm Do you have a Healthcare Power of Button Reclaimer? No October 11, 2024 11:41pm Advance Directives No June 30, 2016 6:49pm Advance Directive Response Recorded Date/ Time Living Will No October 02, 2024 10:46pm Do you have a Healthcare Power of Button Reclaimer? No October 02, 2024 10:46pm Living Will No October 11, 2024 11:41pm Do you have a Healthcare Power of Button Reclaimer? No October 11, 2024 11:41pm Advance Directives No June 30, 2016 6:49pm Health Concerns Infection Onset Date Last Indicated Resolved Time COVID-19 Rule-Out 06/07/2022 06/07/2022 Reason for Referral Specialty Diagnoses / Procedures Referred By Contac t Referred To Contact Diagnoses History of IUFD Procedures CONSULT TO MATERNAL MEDI OFFICE/OUTPATIENT [facility] 60 MINUTES Jeanette Patel MD [address] [place] [address] Referral ID Status Reason Start Date Expiration Date Visits Requested Visits Authorized [id number] Authorized PCP Requested Referral Auto-Generate d Referral 01/01/2024 12/31/2024 1 1 Specialty Diagnoses / Procedures Referred By Contjerry t Referred To Contact [facility] Diagnoses Encounter for supervision of other normal in second trimester History of IUFD Procedures OBSTETRIC ULTRASOUND WHI US PREG UTERUS AFTER 1ST TRIMEST GESTATION Jeanette Patel MD [address] [place] [address] [facility] [address] [place] [address] Referral ID Status Reason Start Date Expiration Date Visits Requested Visits Authorized [id number] Authorized Auto-Generat ed Referral 01/01/2024 12/31/2024 1 1 Summary Purpose Family History No Family History Records FoundNo Family History Records Found Additional Source Comments Goals (unrecognized section and content) Goals may be documented in a n alternate sectionGoals may be documented in an alternate sectionGoals may be documented in an alternate sectionGoals may be documented in an alternate sectionGoals may be documented in an alternate sectionGoals may be documented in an alternate sectionGoals may be documented in an alternate sectionGoals may be documented in an alternate sectionGoals may be documented in an alternate sectionGoals may be documented in an alternate sectionGoals may be documented in an alternate sectionGoals may be documented in an alternate sectionGoals may be documented in an alternate sectionGoals may be documented in an alternate sectionGoals may be documented in an alternate sectionGoals may be documented in an alternate sectionGoals may be documented in an alternate sectionGoals may be documented in an alternate sectionGoals may be documented in an alternate sectionGoals may be documented in an alternate section Source Comments (unrecognize d section and content) In the event this informatio n is protected by the Federal Confidentiality of Alcohol and Drug Abuse Patient Records regulations: The Federal rules restrict any use of the information to criminally investigate or prosecute any alcohol or drug abuse patient.[facility] the event this information is protected by the Federal Confidentiality of Alcohol and Drug Abuse Patient Records regulations: The Federal rules restrict any use of the information to criminally investigate or prosecute any alcohol or drug abuse patient.[facility]imaIn the event this information is protected by the Federal Confidentiality of Alcohol and Drug Abuse Patient Records regulations: The Federal rules restrict any use of the information to criminally investigate or prosecute any alcohol or drug abuse patient.[facility]imaIn the event this information is protected by the Federal Confidentiality of Alcohol and Drug Abuse Patient Records regulations: The Federal rules restrict any use of the information to criminally investigate or prosecute any alcohol or drug abuse patient.[facility]imaIn the event this information is protected by the Federal Confidentiality of Alcohol and Drug Abuse Patient Records regulations: The Federal rules restrict any use of the information to criminally investigate or prosecute any alcohol or drug abuse patient.[facility]imaIn the event this information is protected by the Federal Confidentiality of Alcohol and Drug Abuse Patient Records regulations: The Federal rules restrict any use of the information to criminally investigate or prosecute any alcohol or drug abuse patient.[facility]imaIn the event this information is protected by the Federal Confidentiality of Alcohol and Drug Abuse Patient Records regulations: The Federal rules restrict any use of the information to criminally investigate or prosecute any alcohol or drug abuse patient.[facility]imaIn the event this information is protected by the Federal Confidentiality of Alcohol and Drug Abuse Patient Records regulations: The Federal rules restrict any use of the information to criminally investigate or prosecute any alcohol or drug abuse patient.[facility]imaIn the event this information is protected by the Federal Confidentiality of Alcohol and Drug Abuse Patient Records regulations: The Federal rules restrict any use of the information to criminally investigate or prosecute any alcohol or drug abuse patient.[facility]imaIn the event this information is protected by the Federal Confidentiality of Alcohol and Drug Abuse Patient Records regulations: The Federal rules restrict any use of the information to criminally investigate or prosecute any alcohol or drug abuse patient.[facility]imaIn the event this information is protected by the Federal Confidentiality of Alcohol and Drug Abuse Patient Records regulations: The Federal rules restrict any use of the information to criminally investigate or prosecute any alcohol or drug abuse patient.[facility]imaIn the event this information is protected by the Federal Confidentiality of Alcohol and Drug Abuse Patient Records regulations: The Federal rules restrict any use of the information to criminally investigate or prosecute any alcohol or drug abuse patient.[facility]imaIn the event this information is protected by the Federal Confidentiality of Alcohol and Drug Abuse Patient Records regulations: The Federal rules restrict any use of the information to criminally investigate or prosecute any alcohol or drug abuse patient.[facility]imaIn the event this information is protected by the Federal Confidentiality of Alcohol and Drug Abuse Patient Records regulations: The Federal rules restrict any use of the information to criminally investigate or prosecute any alcohol or drug abuse patient.[facility]imaIn the event this information is protected by the Federal Confidentiality of Alcohol and Drug Abuse Patient Records regulations: The Federal rules restrict any use of the information to criminally investigate or prosecute any alcohol or drug abuse patient.[facility]imaIn the event this information is protected by the Federal Confidentiality of Alcohol and Drug Abuse Patient Records regulations: The Federal rules restrict any use of the information to criminally investigate or prosecute any alcohol or drug abuse patient.[facility]imaIn the event this information is protected by the Federal Confidentiality of Alcohol and Drug Abuse Patient Records regulations: The Federal rules restrict any use of the information to criminally investigate or prosecute any alcohol or drug abuse patient.[facility]imaIn the event this information is protected by the Federal Confidentiality of Alcohol and Drug Abuse Patient Records regulations: The Federal rules restrict any use of the information to criminally investigate or prosecute any alcohol or drug abuse patient.[facility]imaIn the event this information is protected by the Federal Confidentiality of Alcohol and Drug Abuse Patient Records regulations: The Federal rules restrict any use of the information to criminally investigate or prosecute any alcohol or drug abuse patient.[facility]imaIn the event this information is protected by the Federal Confidentiality of Alcohol and Drug Abuse Patient Records regulations: The Federal rules restrict any use of the information to criminally investigate or prosecute any alcohol or drug abuse patient.[facility]imaIn the event this information is protected by the Federal Confidentiality of Alcohol and Drug Abuse Patient Records regulations: The Federal rules restrict any use of the information to criminally investigate or prosecute any alcohol or drug abuse patient.[facility]imaIn the event this information is protected by the Federal Confidentiality of Alcohol and Drug Abuse Patient Records regulations: The Federal rules restrict any use of the information to criminally investigate or prosecute any alcohol or drug abuse patient.[facility]imaIn the event this information is protected by the Federal Confidentiality of Alcohol and Drug Abuse Patient Records regulations: The Federal rules restrict any use of the information to criminally investigate or prosecute any alcohol or drug abuse patient.[facility]imaIn the event this information is protected by the Federal Confidentiality of Alcohol and Drug Abuse Patient Records regulations: The Federal rules restrict any use of the information to criminally investigate or prosecute any alcohol or drug abuse patient.[facility]imaIn the event this information is protected by the Federal Confidentiality of Alcohol and Drug Abuse Patient Records regulations: The Federal rules restrict any use of the information to criminally investigate or prosecute any alcohol or drug abuse patient.[facility]imaIn the event this information is protected by the Federal Confidentiality of Alcohol and Drug Abuse Patient Records regulations: The Federal rules restrict any use of the information to criminally investigate or prosecute any alcohol or drug abuse patient.[facility]imaIn the event this information is protected by the Federal Confidentiality of Alcohol and Drug Abuse Patient Records regulations: The Federal rules restrict any use of the information to criminally investigate or prosecute any alcohol or drug abuse patient.[facility]imaIn the event this information is protected by the Federal Confidentiality of Alcohol and Drug Abuse Patient Records regulations: The Federal rules restrict any use of the information to criminally investigate or prosecute any alcohol or drug abuse patient.[facility]imaIn the event this information is protected by the Federal Confidentiality of Alcohol and Drug Abuse Patient Records regulations: The Federal rules restrict any use of the information to criminally investigate or prosecute any alcohol or drug abuse patient.[facility]imaIn the event this information is protected by the Federal Confidentiality of Alcohol and Drug Abuse Patient Records regulations: The Federal rules restrict any use of the information to criminally investigate or prosecute any alcohol or drug abuse patient.[facility]imaIn the event this information is protected by the Federal Confidentiality of Alcohol and Drug Abuse Patient Records regulations: The Federal rules restrict any use of the information to criminally investigate or prosecute any alcohol or drug abuse patient.[facility] the event this information is protected by the Federal Confidentiality of Alcohol and Drug Abuse Patient Records regulations: The Federal rules restrict any use of the information to criminally investigate or prosecute any alcohol or drug abuse patient.[facility]ima[facility] the event this information is protected by the Federal Confidentiality of Alcohol and Drug Abuse Patient Records regulations: The Federal rules restrict any use of the information to criminally investigate or prosecute any alcohol or drug abuse patient.[facility]ima[facility] the event this information is protected by the Federal Confidentiality of Alcohol and Drug Abuse Patient Records regulations: The Federal rules restrict any use of the information to criminally investigate or prosecute any alcohol or drug abuse patient.[facility]ima[facility] the event this information is protected by the Federal Confidentiality of Alcohol and Drug Abuse Patient Records regulations: The Federal rules restrict any use of the information to criminally investigate or prosecute any alcohol or drug abuse patient.[facility]ima[facility] the event this information is protected by the Federal Confidentiality of Alcohol and Drug Abuse Patient Records regulations: The Federal rules restrict any use of the information to criminally investigate or prosecute any alcohol or drug abuse patient.[facility]ima[facility] the event this information is protected by the Federal Confidentiality of Alcohol and Drug Abuse Patient Records regulations: The Federal rules restrict any use of the information to criminally investigate or prosecute any alcohol or drug abuse patient.[facility]ima[facility] the event this information is protected by the Federal Confidentiality of Alcohol and Drug Abuse Patient Records regulations: The Federal rules restrict any use of the information to criminally investigate or prosecute any alcohol or drug abuse patient.[facility]ima[facility] the event this information is protected by the Federal Confidentiality of Alcohol and Drug Abuse Patient Records regulations: The Federal rules restrict any use of the information to criminally investigate or prosecute any alcohol or drug abuse patient.[facility]ima[facility] the event this information is protected by the Federal Confidentiality of Alcohol and Drug Abuse Patient Records regulations: The Federal rules restrict any use of the information to criminally investigate or prosecute any alcohol or drug abuse patient.[facility]ima[facility] the event this information is protected by the Federal Confidentiality of Alcohol and Drug Abuse Patient Records regulations: The Federal rules restrict any use of the information to criminally investigate or prosecute any alcohol or drug abuse patient.[facility]ima[facility] the event this information is protected by the Federal Confidentiality of Alcohol and Drug Abuse Patient Records regulations: The Federal rules restrict any use of the information to criminally investigate or prosecute any alcohol or drug abuse patient.[facility]ima[facility] the event this information is protected by the Federal Confidentiality of Alcohol and Drug Abuse Patient Records regulations: The Federal rules restrict any use of the information to criminally investigate or prosecute any alcohol or drug abuse patient.[facility]imaIn the event this information is protected by the Federal Confidentiality of Alcohol and Drug Abuse Patient Records regulations: The Federal rules restrict any use of the information to criminally investigate or prosecute any alcohol or drug abuse patient.[facility]imaIn the event this information is protected by the Federal Confidentiality of Alcohol and Drug Abuse Patient Records regulations: The Federal rules restrict any use of the information to criminally investigate or prosecute any alcohol or drug abuse patient.[facility] Reason for Visit (unrecogniz ed section and content) Reason Comments Ear Pain Bilateral ear pain a nd HERNADEZ-exposed to flu Reason Comments Initial OB Visit Reason Comments PRAF Reason Comments OB N/V Reason Onset Date Comments Care 01/01/2024 Reason Comments US Specialty Diagnoses / Procedures Referred By Nina salazar Referred To Contact [facility] Diagnoses 6 weeks gestation of Procedures NUCHAL TRANSLUCENCY WHI US NUCHAL TRANSLUCENCY 1ST GESTATION Sharda Valero, BARTENDER MANAGER.NEON PUMPER [address] [place] [address] [facility] [address] [place] [address] Referral ID Status Reason Start Date Expiration Date V isits Requested Visits Authorized [id number] Closed Auto-Generate d Referral 11/13/2023 11/12/2024 1 1 Reason Comments Consult Ordered by Dr. Patel Specialty Diagnoses / Procedures Referred By Nina salazar Referred To Contact [facility] Diagnoses Encounter for supervision of other normal in second trimester History of IUFD Procedures OBSTETRIC ULTRASOUND WHI US PREG UTERUS AFTER 1ST TRIMEST GESTATION Jeanette Patel MD [address] [place] [address] [address] Referral ID Status Reason Start Date Expiration Date V isits Requested Visits Authorized [id number] Closed Auto-Generate d Referral 01/01/2024 12/31/2024 1 1 Reason Onset Date Comments Care 02/17/2024 Reason Onset Date Comments Care 03/17/2024 Pt reported inte rmittent bilateral swelling feet. Specialty Diagnoses / Procedures Referred By Nina t Referred To Contact [facility] Diagnoses History of IUFD Procedures OBSTETRIC ULTRASOUND WHI US PREG UTERUS AFTER 1ST TRIMEST GESTATION Jeanette Patel MD [address] [place] [address] [address] Referral ID Status Reason Start Date Expiration Date V isits Requested Visits Authorized [id number] Closed Auto-Generate d Referral 02/17/2024 02/16/2025 2 1 Reason Onset Date Comments Care 04/02/2024 Reason Onset Date Comments Care 04/14/2024 Reason Comments Opened In Error Reason Onset Date Comments Care 12/01/2023 Reason Comments OB Pain Reason Onset Date Comments Care 04/28/2024 Specialty Diagnoses / Procedures Referred By Contac t Referred To Contact [facility] Diagnoses Supervision of other high risk pregnancies, third trimester Polyhydramnios in third trimester complication, single or unspecified fetus History of IUFD Procedures OBSTETRIC ULTRASOUND WHI US PREG UTERUS AFTER 1ST TRIMEST GESTATION Jt Lugo MD [address] [place] [address] [address] Referral ID Status Reason Start Date Expiration Date Visits Requested Visits Authorized [id number] Authorized Auto-Generat ed Referral 06/22/2024 3 3 Reason Onset Date Comments Care 05/12/2024 Reason Comments Patient Update Reason Onset Date Comments Care 05/25/2024 Patient c/o bila teral swelling hands/feet x1 week, denied Hernadez. Reason Onset Date Comments Care 06/03/2024 Reason Comments Results Reason Comments Blood Management Reason Onset Date Comments Care 06/11/2024 Reason Comments Release Of Medical Records Reason Onset Date Comments Care 06/17/2024 Reason Comments Ob Delivery Note Reason Comments Early Reason Comments Care Reason Onset Date Comments Insertion Of IUD 09/16/2024 Specialty Diagnoses / Procedures Referred By Contac t Referred To Contact [facility] Diagnoses Encounter for other general counseling or advice on contraception Procedures INSERT INTRAUTERINE DEVICE LEVONORGESTREL IU 52MG 5 YR INSERT INTRAUTERINE DEVICE Sharda Valero APRN.[employer]ON PUMPER [address] [place] [address] Phone: tel: fax: [facility] [address] [place] [address] Referral ID Status Reason Start Date Expiration Date V isits Requested Visits Authorized [id number] Closed Auto-Generate d Referral 07/29/2024 07/29/2025 1 1 Reason Onset Date Comments Results 08/06/2024 Reason Comments Sustainability Director - Other Initial OB RN C C pool Care Teams (unrecognized sec tion and content) Team Status: Active Member Role Status Dates Dr. David Mckinney MD Family Provider Active Dr. David Mckinney MD Primary Care Provider Active Team Status: Inactive Member Role Status Dates Dr. David Mckinney MD Primary Care Provider Active Dr. Jorge Ewing MD Attending Provider Active Team Status: Inactive Member Role Status Dates Dr. David Mckinney MD Primary Care Provider Active Zamzam Olson MD Attending Provider Active Team Status: Inactive Member Role Status Dates Dr. David Mckinney MD Primary Care Provider Active Dr. Margarita Griggs MD Emergency Provider Active Team Status: Inactive Member Role Status Dates Dr. David Mckinney MD Primary Care Provider Active Dr. Margarita Griggs MD Attending Provider, Emergency Provider Active Team Status: Inactive Member Role Status Dates Dr. David Mckinney MD Primary Care Provide r, Attending Provider, Referring Provider Active Team Status: Inactive Member Role Status Dates Dr. David Mckinney MD Primary Care Provider, Attending P rovider Active Team Status: Inactive Member Role Status Dates Dr. David Mckinney MD Primary Care Provider Active Dr. Nicolas Jay MD Emergency Provider Active Team Status: Inactive Member Role Status Dates Dr. David Mckinney MD Primary Care Provider Active Dr. Nicolas Jay MD Attending Provider, Emergency Provider Active Team Status: Inactive Member Role Status Dates Dr. David Mckinney MD Primary Care Provider Active Dr. David Felix DO Emergency Provider Active Team Status: Inactive Member Role Status Dates Dr. David Mckinney MD Primary Care Provider Active Dr. David Felix DO Attending Provider, Emergency P rovider Active Team Status: Inactive Member Role Status Dates Dr. David Mckinney MD Primary Care Provider Active Dr. Piter Bertrand MD Emergency Provider Active Team Status: Inactive Member Role Status Dates Dr. David Mckinney MD Primary Care Provider Active Dr. Piter Bertrand MD Attending Provider, Emergency Pro vider Active Team Status: Inactive Member Role Status Dates Dr. David Mckinney MD Primary Care Provider Active Dr. Kuldeep Vanegas DO Emergency Provider Active Team Status: Active Member Role Status Dates Dr. David Mckinney MD Primary Care Provider Active Team Status: Inactive Member Role Status Dates Dr. David Mckinney MD Primary Care Provider Active Start: June 14, 2024 End: June 14, 2024 Marcela Connors CNM Attending Provider Active St art: June 14, 2024 End: June 14, 2024 Marcela Connors CNM Referring Provider Active St art: June 14, 2024 End: June 14, 2024 Team Status: Inactive Member Role Status Dates Dr. David Mckinney MD Primary Care Provider Active Start: June 17, 2024 End: June 19, 2024 Johana Turner CNM Admit Provider Active Star t: June 17, 2024 End: June 19, 2024 Johana Turner CNM Attending Provider Active Start: June 17, 2024 End: June 19, 2024 Johana Turner CNM Referring Provider Active Start: June 17, 2024 End: June 19, 2024 Team Status: Inactive Member Role Status Dates Dr. David Mckinney MD Primary Care Provider Active Start: October 02, 2024 End: October 02, 2024 Dr. Kuldeep Vanegas DO Emergency Provider Active Start: October 02, 2024 End: October 02, 2024 Team Status: Inactive Member Role Status Dates Dr. David Mckinney MD Primary Care Provider Active Start: October 02, 2024 End: October 02, 2024 Dr. Kuldeep Vanegas DO Attending Provider Active Start: October 02, 2024 End: October 02, 2024 Dr. Kuldeep Vanegas DO Emergency Provider Active Start: October 02, 2024 End: October 02, 2024 Team Status: Inactive Member Role Status Dates Dr. David Mckinney MD Primary Care Provider Active Start: October 11, 2024 End: October 12, 2024 Dr. Rizwan Cárdenas DO Emergency Provider Active Start: October 11, 2024 End: October 12, 2024 Team Status: Inactive Member Role Status Dates Dr. David Mckinney MD Primary Care Provider Active Start: October 11, 2024 End: October 12, 2024 Dr. Rizwan Cárdenas DO Attending Provider Active Start: October 11, 2024 End: October 12, 2024 Dr. Rizwan Cárdenas DO Emergency Provider Active Start: October 11, 2024 End: October 12, 2024 Team Status: Inactive Member Role Status Dates Dr. David Mckinney MD Primary Care Provider Active Start: October 21, 2024 End: October 21, 2024 Dr. Rizwan Cárdenas DO Attending Provider Active Start: October 21, 2024 End: October 21, 2024 Dr. Rizwan Cárdenas DO Referring Provider Active Start: October 21, 2024 End: October 21, 2024 INFORMATION SOURCE (unrecogn ized section and content) DATE CREATED AUTHOR 10/31/2024 [facility] DATE CREATED AUTHOR AUTHOR'S ANGUSIZ ATION 11/26/2024 [facility] FOR RECORDS PERTAINING TO PATIENTS WHO ARE [...] BE BASED ON THE PRIMARY CLINICAL RECORDS. [employer] provides no warranty or guarantee of the accuracy or completeness of information in this document.
[2024-12-11 14:44] LABS: Absolute Lymphocyte Count 1.53 X10^3/uL (0.83-4.51); Absolute Neutrophil Count 5.2 X10^3/uL (2.0-7.7); Basophil# 0.04 X10^3/uL; Basophil% 0.5 % (0-1); Eosinophil# 0.35 X10^3/uL; Eosinophils% 4.7 % (0-5); Hematocrit 34.1 % (37-47); Lymphocyte # 1.53 X10^3/ul (0.83-4.51); Lymphocyte % 20.5 % (19-41); Mean Corp Hgb Conc 32.3 g/dL (32-36); Mean Corpuscular Hgb 27.6 pg (27.0-32.0); Mean Corpuscular Volume 85.7 fL (81-99); Monocyte# 0.34 X10^3/uL; Monocyte% 4.6 % (0-10); NRBC Flagged by Analyzer 0 % (0-5); Neutrophil # 5.18 X10^3/uL (2.7-7.7); Neutrophil % 69.3 % (47-70); Platelet Count 176 K/mm3 (150-450); RBC Distribution Width CV 14.6 % (11.6-14.6); RBC Distribution Width SD 45.6 fl (35.1-43.9); Red Blood Count 3.98 M/mm3 (4.2-5.4); White Blood Count 7.5 K/mm3 (4.4-11.0)
[2024-12-11 15:11] LABS: ALB/GLOB Ratio 1.1 RATIO (0.9-2.4); AST(SGOT) 17 U/L (<=31); Alanine Aminotransfer ALT/SGPT 16 U/L (<=34); Albumin, Serum 3.3 g/dL (3.5-5.0); Alkaline Phosphatase 85 U/L (35-104); Anion Gap 12 (5-15); BUN 6 mg/dL (4-19); Calcium,Total 8.5 mg/dL (7.6-11.0); Carbon Dioxide 18.6 mmol/L (21.0-32.0); Chloride 107 mmol/L (98-108); Creatinine, Serum 0.53 mg/dL (0.70-1.20); EST Glomerular Filtration Rate 130 (>60); Estimated Creatinine Clearance 164.63 ml/min (50-250); Globulin 2.9 g/dL (2.2-4.2); Glucose 125 mg/dL (70-99); Lipase 22 U/L (13-75); Potassium 3.5 mmol/L (3.3-5.1); Protein, Total 6.2 g/dL (5.9-8.4); Sodium Level 137 mmol/L (133-145); Total Bilirubin 0.24 mg/dL (0.00-1.30)
[2024-12-11 15:52] LABS: Mucous, Urine 0 SEEN /hpf (<or=2+)
[2024-12-11 16:50] LABS: Color, Urine Straw (Yellow); Glucose, Dipstick Normal (Normal); Ketone-Dipstick Negative (Negative); Leukocyte Esterase-Dipstick 500 /ul (Negative); Nitrite-Dipstick Negative (Negative); Occult Blood-Urine Negative /ul (Negative); Protein-Dipstick 15 mg/dl (Negative); Specific Gravity, Urine 1.025 (1.002-1.030); Urine Bilirubin Dipstick Negative (Negative); Urine Clarity Cloudy (Clear); Urine Urobilinogen Normal (Normal)
[2024-12-11 17:40] LABS: White Blood Cells 10-25 SEEN /hpf (0-5)
[2024-12-11 17:41] LABS: Bacteria 2+ /hpf (None Seen); Red Blood Cells-Urine 0-5 SEEN /hpf (0-5); Squamous Epithelial Cells - UA 0-5 SEEN /hpf (5-10)
== END 2024-12-11 16:00 | disposition home or self-care (01) ==
PROVIDERS: Emergency Provider Emergency Medicine; PCP Family Medicine; Visit Provider Emergency Medicine
DX: O99.891 Other specified diseases and conditions complicating pregnancy (principal); R10.9 Unspecified abdominal pain; Z87.891 Personal history of nicotine dependence; O23.42 Unspecified infection of urinary tract in pregnancy, second trimester; Z3A.00 Weeks of gestation of pregnancy not specified
CPT/HCPCS: 80053; 81001; 83690; 85025; 93005; 99283; A4216

== ENCOUNTER → 2025-02-01 | Outpatient (CLI) | payer MEDICAID, SELFPAY ==
[2025-02-01 11:59] LABS: Hematocrit 30.6 % (37-47); Hemoglobin 10.0 g/dL (12.0-15.0); Immature Granulocytes Count 0.050 X10^3/uL (0.0-0.0); Mean Corp Hgb Conc 32.7 g/dL (32-36); Mean Corpuscular Volume 85.7 fL (81-99); Mean Platelet Vol. 12.6 fl (6.2-12.0); NRBC Flagged by Analyzer 0 % (0-5); Platelet Count 180 K/mm3 (150-450); RBC Distribution Width CV 14.9 % (11.6-14.6); RBC Distribution Width SD 46.1 fl (35.1-43.9); Red Blood Count 3.57 M/mm3 (4.2-5.4); White Blood Count 8.4 K/mm3 (4.4-11.0)
[2025-02-01 13:19] LABS: AST(SGOT) 12 U/L (<=31); Alanine Aminotransfer ALT/SGPT 11 U/L (<=34); Albumin, Serum 3.1 g/dL (3.5-5.0); Alkaline Phosphatase 99 U/L (35-104); Anion Gap 12 (5-15); BUN 5 mg/dL (4-19); BUN/Creat Ratio 10.3 RATIO (10-20); Calcium,Total 8.2 mg/dL (7.6-11.0); Carbon Dioxide 19.0 mmol/L (21.0-32.0); Chloride 106 mmol/L (98-108); Ferritin 11 ng/mL (22-378); Globulin 2.8 g/dL (2.2-4.2); Glucose 94 mg/dL (70-99); Potassium 3.3 mmol/L (3.3-5.1)
--- OUTSIDE RECORDS SUMMARY | 2025-02-01 20:11 | XMS RPT_ITS | CCD ---
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 BLOOD SPECIMENOrdering Facility: [facility] Address: [address] [place] [address] Performed By: #### 5 8410-2 ####[facility] [id number] [place] [address] [place] Hematocrit (Bld) [Volume fraction] 33.7 % Low 36.0-46.0 [facility] Comment on above: Order Comment: Speci men Type: BLOOD SPECIMENOrdering Facility: [facility] Address: [address] [place] [address] Performed By: #### 5 8410-2 ####[facility] [id number] [place] [address] [place] Hemoglobin (Bld) [Mass/Vol] 11.2 g/dL Low 11.5-15.5 [facility] Comment on above: Order Comment: Speci men Type: BLOOD SPECIMENOrdering Facility: [facility] Address: [address] [place] [address] Performed By: #### 5 8410-2 ####[facility] [id number] [place] [address] [place] MCH (RBC) [Entitic mass] 27.7 pg Normal 26.0-34.0 [facility] Comment on above: Order Comment: Speci men Type: BLOOD SPECIMENOrdering Facility: [facility] Address: [address] [place] [address] Performed By: #### 5 8410-2 ####[facility] [id number] [place] [address] [place] MCHC (RBC) [Mass/Vol] 33.2 g/dL Normal 30.5-36.0 [facility] Comment on above: Order Comment: Speci men Type: BLOOD SPECIMENOrdering Facility: [facility] Address: [address] [place] [address] Performed By: #### 5 8410-2 ####[facility]ENTERJOON [id number] [place] [address] [place] MCV (RBC) [Entitic vol] 83.2 fL Normal 80.0-100.0 [facility] Comment on above: Order Comment: Speci men Type: BLOOD SPECIMENOrdering Facility: [facility] Address: [address] [place] [address] Performed By: #### 5 8410-2 ####[facility]ENTER[facility] [id number] [place] [address] [place] Nucleated RBC (Bld) [#/Vol] 10*3/uL Normal <0.01 [facility] Comment on above: Order Comment: Speci men Type: BLOOD SPECIMENOrdering Facility: [facility] Address: [address] [place] [address] Performed By: #### 5 8410-2 ####[facility] CENTERQINGA [id number] [place] [address] [place] Platelet mean volume (Bld) [Entitic vol] 11.5 fL Normal 9.0-12.7 [facility] Comment on above: Order Comment: Speci men Type: BLOOD SPECIMENOrdering Facility: [facility] Address: [address] [place] [address] Performed By: #### 5 8410-2 ####[facility] CENTERNCLIMere [id number] [place] [address] [place] Platelets (Bld) [#/Vol] 203 10*3/uL Normal 150-400 [facility] Comment on above: Order Comment: Speci men Type: BLOOD SPECIMENOrdering Facility: [facility] Address: [address] [place] [address] Performed By: #### 5 8410-2 ####[facility] ERWNCLIA [id number] [place] [address] [place] RBC (Bld) [#/Vol] 4.05 10*6/uL Normal 3.90-5.20 [facility] Comment on above: Order Comment: Speci men Type: BLOOD SPECIMENOrdering Facility: [facility] Address: [address] [place] [address] Performed By: #### 5 8410-2 ####[facility] CENTERNCA [id number] [place] [address] [place] WBC (Bld) [#/Vol] 11.61 10*3/uL High 3.70-11.00 [facility] Comment on above: Order Comment: Speci men Type: BLOOD SPECIMENOrdering Facility: [facility] Address: [address] [place] [address] Performed By: #### 5 8410-2 ####[facility]ENTERNCLIA [id number] [place] [address] [place] Comprehensive metabolic 2000 panelon 01-10-2025 Albumin [Mass/Vol] 3.7 g/dL Low 3.9-4.9 [facility] Comment on above: Order Comment: Speci men Type: BLOOD SPECIMENOrdering Facility: [facility] Address: [address] [place], [place] [address] Performed By: #### 2 4323-8 ####[facility]ENTERNCLIA [id number] [place] [address] [place] ALP [Catalytic activity/Vol] 97 U/L Normal 34-123 [facility] Comment on above: Order Comment: Speci men Type: BLOOD SPECIMENOrdering Facility: [facility] Address: [address] [place] [address] Performed By: #### 2 4323-8 ####[facility] ERJamalNCLIA [id number] [place] [address] [place] ALT [Catalytic activity/Vol] 7 U/L Normal 7-38 [facility] Comment on above: Order Comment: Speci men Type: BLOOD SPECIMENOrdering Facility: [facility] Address: [address] [place] [address] Performed By: #### 2 4323-8 ####[facility]ENTERNCLIA [id number] [place] [address] [place] Anion gap [Moles/Vol] 14 mmol/L Normal 8-15 [facility] Comment on above: Order Comment: Speci men Type: BLOOD SPECIMENOrdering Facility: [facility] Address: [address] [place] [address] Performed By: #### 2 4323-8 ####[facility]ENTERNCLIA [id number] [place] [address] [place] AST [Catalytic activity/Vol] 9 U/L Low 13-35 [facility] Comment on above: Order Comment: Speci men Type: BLOOD SPECIMENOrdering Facility: [facility] Address: [address] [place] [address] Performed By: #### 2 4323-8 ####[facility]ENTERNCLIA [id number] [place] [address] [place] Bilirubin [Mass/Vol] 0.2 mg/dL Normal 0.2-1.3 [facility] Comment on above: Order Comment: Speci men Type: BLOOD SPECIMENOrdering Facility: [facility] Address: [address] [place] [address] Performed By: #### 2 4323-8 ####[facility] MILLWNCLIA [id number] [place] [address] [place] Calcium [Mass/Vol] 9.1 mg/dL Normal 8.5-10.2 [facility] Comment on above: Order Comment: Speci men Type: BLOOD SPECIMENOrdering Facility: [facility] Address: [address] [place] [address] Performed By: #### 2 4323-8 ####[facility] ERWNCLIA [id number] [place] [address] [place] Chloride [Moles/Vol] 102 mmol/L Normal 98-107 [facility] Comment on above: Order Comment: Speci men Type: BLOOD SPECIMENOrdering Facility: [facility] Address: [address] [place] [address] Performed By: #### 2 4323-8 ####[facility]ITALLIA [id number] [place] [address] [place] CO2 [Moles/Vol] 19 mmol/L Low 22-30 [facility] Comment on above: Order Comment: Speci men Type: BLOOD SPECIMENOrdering Facility: [facility] Address: [address] [place] [address] Performed By: #### 2 4323-8 ####[facility]ENTERNCLIA [id number] [place] [address] [place] Creatinine [Mass/Vol] 0.45 mg/dL Low 0.58-0.96 [facility] Comment on above: Order Comment: Speci men Type: BLOOD SPECIMENOrdering Facility: [facility] Address: [address] [place] [address] Performed By: #### 2 4323-8 ####[facility]ENTERNCLIA [id number] [place] [address] [place] eGFRcr SerPlBld CKD-EPI 2021 135 mL/min/1.73m??? Normal >=60 [facility] Comment on above: Order Comment: Costa bergeron Type: BLOOD SPECIMENOrdering Facility: [facility] Address: [address] [place] [address] Result Comment: Sameera mated Glomerular Filtration Rate (eGFR) is calculated using the 2020 CKD-EPI creatinine equation. This equation utilizes serum creatinine, sex, and age as parameters. The creatinine assay has traceable calibration to isotope dilution-mass spectrometry. Refer to KDIGO guidelines for clinical interpretation. In patients with unstable renal function, e.g. those with acute kidney injury, the eGFR may not accurately reflect actual GFR. Performed By: #### 2 4323-8 ####[facility] [id number] [place] [address] [place] Glucose [Mass/Vol] 105 mg/dL High 74-99 [facility] Comment on above: Order Comment: Costa bergeron Type: BLOOD SPECIMENOrdering Facility: [facility] Address: [address] [place] [address] Result Comment: The [place] Diabetes [employer] (ADA) provides guidance for cutoff values for fasting glucose and random glucose. The ADA defines fasting as no caloric intake for at least 8 hours. Fasting plasma glucose results between 100 to 125 mg/dL indicate increased risk for diabetes (prediabetes). Fasting plasma glucose results greater than or equal to 126 mg/dL meet the criteria for diagnosis of diabetes. In the absence of unequivocal hyperglycemia, results should be confirmed by repeat testing. In a patient with classic symptoms of hyperglycemia or hyperglycemic crisis, random plasma glucose results greater than or equal to 200 mg/dL meet the criteria for diagnosis of diabetes. Reference: Standards of Medical Care in Diabetes 2016, [place] Diabetes Association. Diabetes Care. 2016.39(Suppl 1). Performed By: #### 2 4323-8 ####[facility] [id number] [place] [address] [place] Potassium [Moles/Vol] 4.2 mmol/L Normal 3.7-5.1 [facility] Comment on above: Order Comment: Speci men Type: BLOOD SPECIMENOrdering Facility: [facility] Address: [address] [place] [address] Performed By: #### 2 4323-8 ####[facility] CASEYWNCLIA [id number] [place] [address] [place] Protein [Mass/Vol] 6.8 g/dL Normal 6.3-8.0 [facility] Comment on above: Order Comment: Speci men Type: BLOOD SPECIMENOrdering Facility: [facility] Address: [address] [place] [address] Performed By: #### 2 4323-8 ####[facility]ENTERNCLIA [id number] [place] [address] [place] Sodium [Moles/Vol] 135 mmol/L Low 136-144 [facility] Comment on above: Order Comment: Speci men Type: BLOOD SPECIMENOrdering Facility: [facility] Address: [address] [place] [address] Performed By: #### 2 4323-8 ####[facility] CENTERNCLIA [id number] [place] [address] [place] Urea nitrogen [Mass/Vol] 9 mg/dL Normal 7-21 [facility] Comment on above: Order Comment: Speci men Type: BLOOD SPECIMENOrdering Facility: [facility] Address: [address] [place] [address] Performed By: #### 2 4323-8 ####[facility] ERWNCLIA [id number] [place] [address] [place] ONNJAYNS22 PLUSon 01-10-2025 Cell-free DNA./Cell-free DNA.total Dosage of chromosome-specific cfDNA (cfDNA) [Molar fraction] Normal [facility] Comment on above: Order Comment: Speci men Type: BLOOD SPECIMENOrdering Facility: [facility] Address: [address] [place] [address] Performed By: #### M AT21 ####[facility] LABCLIA [id number] [place] [address] Chr 13+18+21+X+Y aneuploidy Dosage of chromosome-specific cfDNA Ql (cfDNA) Abnormal [facility] Comment on above: Order Comment: Speci men Type: BLOOD SPECIMENOrdering Facility: [facility] Address: [address] [place] [address] Result Comment: Test not performed. Performed By: #### M AT21 ####[facility] LABCLIA [id number] [place] [address] Citation Jose (Reference lab test) Comment Normal [facility] Comment on above: Order Comment: Speci men Type: BLOOD SPECIMENOrdering Facility: [facility] Address: [address] [place] [address] Result Comment: 1. P sonali HAYS, et al. Jahaira Med. 2012;14(3):296-305. 2. Latha WADE et al. Prenat Diag. 2013;33(6):591-597. 3. Clemente C, et al. Clin Chem. 2015 Apr;61(4):608-616. 4. Paul HAYS, et al. Jahaira Med. 2011;13(11):913-920. 5. ACOG/SMFM Practice Bulletin No. 226, Mar 2020. Performed By: #### M AT21 ####[facility] LABCLIA [id number] [place] [address] Gestational age Estimated from conception date Marquez Normal [facility] Comment on above: Order Comment: Speci men Type: BLOOD SPECIMENOrdering Facility: [facility] Address: [address] [place] [address] Performed By: #### M AT21 ####[facility] LABCLIA [id number] [place] [address] GESTATIONALAGE AGE > OR = 9W Yes Normal [facility] Comment on above: Order Comment: Speci men Type: BLOOD SPECIMENOrdering Facility: [facility] Address: [address] [place] [address] Performed By: #### M AT21 ####[facility] LABCLIA [id number] [place] [address] Laboratory comment Jose (Report) Comment Normal [facility] Comment on above: Order Comment: Costa bergerno Type: BLOOD SPECIMENOrdering Facility: [facility] Address: [address] [place] [address] Result Comment: The MaterniT(R) 21 PLUS laboratory-developed test (LDT) analyzes circulating cell-free DNA from a maternal blood sample. This test is used for screening purposes and not diagnostic. Clinical correlation is recommended. Validation data on twin pregnancies is limited and the ability of this test to detect aneuploidy in higher multiple gestations has not yet been validated. Performed By: #### M AT21 ####[facility] LABCLIA [id number] [place] [address] grants director name Nom (Provider) Comment Normal [facility] Comment on above: Order Comment: Costa bergeron Type: BLOOD SPECIMENOrdering Facility: [facility] Address: [address] [place] [address] Result Comment: Test not performed. Duplicate tests ordered. For inquiries, the physician may contact Client Services at [phone]. Comment Torito Butler MD, PhD, Director, [employer] Performed By: #### M AT21 ####[facility] LABCLIA [id number] [place] [address] LIMITATIONS OF THE TEST Comment Normal [facility] Comment on above: Order Comment: Costa bergeron Type: BLOOD SPECIMENOrdering Facility: [facility] Address: [address] [place] [address] Result Comment: Kayli talbot the results of [...] and Fragmin(R)). Performed By: #### M AT21 ####[facility] LABIA [id number] [place] [address] NEGATIVE PREDICTIVE VALUE Comment Normal [facility] Comment on above: Order Comment: Speci men Type: BLOOD SPECIMENOrdering Facility: [facility] Address: [address] [place] [address] [place] [address] Result Comment: The Negative Predictive Value (NPV) for trisomy 21, 18, and 13 is greater than 99%. The NPV for SCA and ESS cannot be calculated as SCA and ESS are only reported when an abnormality is detected. Performed By: #### M AT21 ####[facility] LABNORTHEASTERN [facility] [id number] [place] [address] PERFORMANCE CHARACTERISTICS Comment Normal [facility] Comment on above: Order Comment: Gingeri elyssa Type: BLOOD SPECIMENOrdering Facility: [facility] Address: [address] [place] [address] Result Comment: ! Sex ! Accuracy: 99.4% [...] gestation only. Performed By: #### M AT21 ####[employer] [id number] [place] [address] Reference Lab Test Method Comment Normal [facility] Comment on above: Order Comment: Speci men Type: BLOOD SPECIMENOrdering Facility: [facility] Address: [address] [place] [address] Result Comment: Circ ulating cell-free DNA was purified from the plasma [...] and 22. Performed By: #### M AT21 ####[facility] [facility] LABAngstroIA [id number] [place] [address] Service comment ([facility] spec) [Interp] Comment Normal [facility] Comment on above: Order Comment: Costa bergeron Type: BLOOD SPECIMENOrdering Facility: [facility] Address: [address] [place] [address] Result Comment: [employer] is a subsidiary of [employer], using the brand [employer]. This test was developed and its performance characteristics determined by [employer]. It has not been cleared or approved by the Food and Drug Administration. This laboratory is certified under the Clinical Laboratory Improvement Amendments (CLIA) as qualified to perform high complexity clinical laboratory testing and accredited by the College of [place] [employer] (CAP). Performed By: #### M AT21 ####[facility] SystemsIA [id number] [place] [address] Test performance information Jose (Unsp spec) Comment Normal [facility] Comment on above: Order Comment: Costa bergeron Type: BLOOD SPECIMENOrdering Facility: [facility] Address: [address] [place] [address] Result Comment: The performance characteristics of the MaterniT(R) 21 PLUS laboratory-developed test (LDT) have been determined in a clinical validation study with women at increased risk for chromosomal aneuploidy.[1-4] Performed By: #### M AT21 ####[facility] LABCLIA [id number] [place] [address] Prot/Creat Uron 01-10-2025 Protein/Creatinine (U) [Mass ratio] 0.14 mg/mg Normal <0.15 [facility] Comment on above: Order Comment: Costa bergeron Type: BLOOD SPECIMEN [facility] Address: [address] [place] [address] Result Comment: Adul t Proteinuria Categories: <0.15 mg/mg is considered normal to mildly increased 0.15 - 0.50 mg/mg is considered moderately increased >0.50 mg/mg is considered severely increased KDIGO. (2013). KDIGO 2012 Clinical Practice Guideline for the Evaluation and Management of Chronic Kidney Disease. Official Journal of the International Society of Nephrology, 3(1), 1-150. Performed By: #### 5 195-3, 23889-8, 14432-6 #### [facility] CLIA [id number] [address] [place] [address] [place] Protein/Creatinine (U) [Mass ratio]on 01-10-2025 Creatinine (U) [Mass/Vol] 79.9 mg/dL Normal 20.0-300.0 [facility] Comment on above: Order Comment: Speci men Type: BLOOD SPECIMEN [facility] Address: [address] [place] [address] Performed By: #### 5 195-3, 06135-7, 33263-7 #### [facility] CLIA [id number] [address] [place] [address] [place] Protein (U) [Mass/Vol] 11 mg/dL Normal 0-20 [facility] Comment on above: Order Comment: Speci men Type: BLOOD SPECIMEN [facility] Address: [address] [place] [address] Performed By: #### 5 195-3, 81747-0, 66064-5 #### [facility] CLIA [id number] [address] [place] [address] [place] TOXICOLOGY SCREEN, ROUTINE U RINEon 01-10-2025 Amphetamines Confirm (U) [Mass/Vol] Negative Normal Negative [facility] Comment on above: Order Comment: Speci men Type: BLOOD SPECIMEN [facility] Address: [address] [place] [address] Result Comment: Cuto ff threshold at 1000 ng/mL. Performed By: #### 5 195-3, 38601-8, 07137-9 #### [facility] CLIA [id number] [address] [place] [address] [place] BARBITURATES, URINE Negative Normal Negative [facility] Comment on above: Order Comment: Speci men Type: BLOOD SPECIMEN [facility] Address: [address] [place] [address] Result Comment: Cuto ff threshold at 200 ng/mL. Performed By: #### 5 195-3, 39402-5, 66082-2 #### [facility] CLIA [id number] [address] [place] [address] [place] BENZODIAZEPINES, URINE Negative Normal Negative [facility] Comment on above: Order Comment: Speci men Type: BLOOD SPECIMEN [facility] Address: [address] [place] [address] Result Comment: Cuto ff threshold at 200 ng/mL. Performed By: #### 5 195-3, 05459-1, 98891-0 #### [facility] CLIA [id number] [address] [place] [address] [place] Cannabinoids Screen Ql (U) Negative Normal Negative [facility] Comment on above: Order Comment: Speci men Type: BLOOD SPECIMEN [facility] Address: [address] [place] [address] Result Comment: Cuto ff threshold at 50 ng/mL. Performed By: #### 5 195-3, 86340-8, 37910-8 #### [facility] CLIA [id number] [address] [place] [address] [place] Cocaine Ql (U) Negative Normal Negative [facility] Comment on above: Order Comment: Speci men Type: BLOOD SPECIMEN [facility] Address: [address] [place] [address] Result Comment: Cuto ff threshold at 300 ng/mL. Performed By: #### 5 195-3, 18550-2, 97801-1 #### [facility] CLIA [id number] [address] [place] [address] [place] Ethanol (U) [Mass/Vol] <11 Normal <11 [facility] Comment on above: Order Comment: Speci men Type: BLOOD SPECIMEN [facility] Address: [address] [place] [address] Performed By: #### 5 195-3, 09339-4, 56190-5 #### [facility] CLIA [id number] [address] [place] [address] [place] fentaNYL Screen Ql (U) Negative Normal Negative [facility] Comment on above: Order Comment: Speci men Type: BLOOD SPECIMEN [facility] Address: [address] [place] [address] Result Comment: Cuto ff threshold at 5 ng/mL. Performed By: #### 5 195-3, 62400-0, 86527-7 #### [facility] CLIA [id number] [address] [place] [address] [place] Opiates Screen Ql (U) Negative Normal Negative [facility] Comment on above: Order Comment: Speci men Type: BLOOD SPECIMEN [facility] Address: [address] [place] [address] Result Comment: Cuto ff threshold at 300 ng/mL. Performed By: #### 5 195-3, 87116-7, 42094-2 #### [facility] CLIA [id number] [address] [place] [address] [place] oxyCODONE cutoff Screen (U) [Mass/Vol] Negative Normal Negative [facility] Comment on above: Order Comment: Speci men Type: BLOOD SPECIMEN [facility] Address: [address] [place] [address] Result Comment: Cuto ff threshold at 100 ng/mL. Performed By: #### 5 195-3, 41350-5, 05581-5 #### [facility] CLIA [id number] [address] [place] [address] [place] Phencyclidine Ql (U) Negative Normal Negative [facility] Comment on above: Order Comment: Speci men Type: BLOOD SPECIMEN [facility] Address: [address] [place] [address] Result Comment: Cuto ff threshold at 25 ng/mL. Performed By: #### 5 195-3, 67778-9, 75912-7 #### [facility] CLIA [id number] [address] [place] [address] [place] [facility] 12 Lead EKGon 12-11-2024 12 Lead EKG [facility] Cardiovascular Services [address] [place] [address] 12 Lead EKG 12/11/24 1413 MR#: [id number] Acct: [id number] Name: SHILPA HOANG Rep #: [id number] : 1995 28 From: Josh Dudley MD Attending Dr: Status: DEP ER Ordering Dr: Lake Mirza DO Date: 12/11/24 Location: ED Sex: F C Admitted: Test Reason : CP Blood Pressure : */* mmHG Vent. Rate : 75 BPM Atrial Rate : 75 BPM P-R Int : 132 ms QRS Dur : 82 ms QT Int : 402 ms P-R-T Axes : 15 66 49 degrees QTcB Int : 448 ms Normal sinus rhythm Normal ECG Confirmed by Josh Dudley ([id number]), newspaper copy editor IDA OSPINA ([id number]) on 12/14/2024 11:47:52 AM Referred By: UG Confirmed By: Josh Dudley 12/14/24 1147 Date Josh Dudley MD CC: Dr. David Mckinney MD; Dr. Lake Mirza DO Signed Normal [facility] Absolute lymphocyte countOrd ered By: Lake Mirza on 12-11-2024 Lymphocytes Auto (Unsp spec) [#/Vol] 1.53 10*3/uL 0.83-4.51 [facility] Absolute neutrophil countOrd ered By: Lake Mirza on 12-11-2024 Neutrophils (Bld) [#/Vol] 5.2 10*3/uL 2.0-7.7 [facility] Anion gap in Serum or Plasma Ordered By: Lake Mirza on 12-11-2024 Anion gap [Moles/Vol] 12 mmol/L 5-15 [facility] Automated lymphocyte count a s percentage of total leukocytesOrdered By: Lake Mirza on 12-11-2024 Lymphocytes/100 WBC Auto (Unsp spec) 20.5 % - [facility] BUN/creatinine ratioOrdered By: Lake Mirza on 12-11-2024 Urea nitrogen/Creatinine [Mass ratio] 12.0 mg/mg 10-20 [facility] Basophil percentageOrdered B y: Lake Mirza on 12-11-2024 Basophils/100 WBC (Bld) 0.5 % 0-1 [facility] Bilirubin Test strip Ql (U)O rdered By: Lake Mirza on 12-11-2024 Bilirubin Ql (U) Negative Negative [facility] Bilirubin, totalOrdered By: Lake Mirza on 12-11-2024 Bilirubin [Mass/Vol] 0.24 mg/dL 0.00-1.30 [facility] CBC W/Diff, Automatedon 11-22 Absolute Lymph 1.53 X10 3/uL Normal 0.83-4.51 [facility] Comment on above: Performed By: #### L 100.0100, L500.4050, L501.2450 ####[facility] [address] [place], [address] Absolute Neut 5.2 X10 3/uL Normal 2.0-7.7 [facility] Comment on above: Performed By: #### L 100.0100, L500.4050, L501.2450 ####[facility] [address] [place], [address] Basophils/100 WBC (Bld) 0.5 % Normal 0-1 [facility] Comment on above: Performed By: #### L 100.0100, L500.4050, L501.2450 ####[facility] [address] [place], [address] Eosinophils/100 WBC (Bld) 4.7 % Normal 0-5 [facility] Comment on above: Performed By: #### L 100.0100, L500.4050, L501.2450 ####[facility] [address] [place], [address] Erythrocyte distribution width (RBC) [Ratio] 14.6 % Normal 11.6-14.6 [facility] Comment on above: Performed By: #### L 100.0100, L500.4050, L501.2450 ####[facility] [address] [place], [address] Hematocrit (Bld) [Volume fraction] 34.1 % Low 37-47 [facility] Comment on above: Performed By: #### L 100.0100, L500.4050, L501.2450 ####[facility] [address] [place], [address] Hemoglobin (Bld) [Mass/Vol] 11.0 g/dL Low 12.0-15.0 [facility] Comment on above: Performed By: #### L 100.0100, L500.4050, L501.2450 ####[facility] [address] [place], [address] IG% 0.400 Normal 0.0-0.9 [facility] Comment on above: Result Comment: IG% - Immature Granulocytes (promyelocytes, myelocytes and metamyelocytes) > 1% indicates that a LEFT SHIFT is Present. Performed By: #### L 100.0100, L500.4050, L501.2450 ####[facility] [address] [place], [address] Lymphocytes/100 WBC (Bld) 20.5 % Normal 19-41 [facility] Comment on above: Performed By: #### L 100.0100, L500.4050, L501.2450 ####[facility] [address] [place], [address] MCH (RBC) [Entitic mass] 27.6 pg Normal 27.0-32.0 [facility] Comment on above: Performed By: #### L 100.0100, L500.4050, L501.2450 ####[facility] [address] [place], [address] MCHC (RBC) [Mass/Vol] 32.3 g/dL Normal 32-36 [facility] Comment on above: Performed By: #### L 100.0100, L500.4050, L501.2450 ####[facility] [address] [place], [address] MCV (RBC) [Entitic vol] 85.7 fL Normal 81-99 [facility] Comment on above: Performed By: #### L 100.0100, L500.4050, L501.2450 ####[facility] [address] [place], [address] Monocytes/100 WBC (Bld) 4.6 % Normal 0-10 [facility] Comment on above: Performed By: #### L 100.0100, L500.4050, L501.2450 ####[facility] [address] [place], [address] Neutrophils/100 WBC (Bld) 69.3 % Normal 47-70 [facility] Comment on above: Performed By: #### L 100.0100, L500.4050, L501.2450 ####[facility] [address] [place], [address] Nucleated RBC (Bld) [#/Vol] 0 10*3/uL Normal 0-5 [facility] Comment on above: Performed By: #### L 100.0100, L500.4050, L501.2450 ####[facility] [address] [place], [address] Platelet mean volume (Bld) [Entitic vol] 12.0 fL Normal 6.2-12.0 [facility] Comment on above: Performed By: #### L 100.0100, L500.4050, L501.2450 ####[facility] [address] [place], [address] Platelets (Bld) [#/Vol] 176 10*3/uL Normal 150-450 [facility] Comment on above: Performed By: #### L 100.0100, L500.4050, L501.2450 ####[facility] [address] [place], [address] RBC (Bld) [#/Vol] 3.98 10*6/uL Low 4.2-5.4 [facility] Comment on above: Performed By: #### L 100.0100, L500.4050, L501.2450 ####[facility] [address] [place], [address] RDW SD 45.6 fl High 35.1-43.9 [facility] Comment on above: Performed By: #### L 100.0100, L500.4050, L501.2450 ####[facility] [address] [place], [address] WBC (Bld) [#/Vol] 7.5 10*3/uL Normal 4.4-11.0 [facility] Comment on above: Performed By: #### L 100.0100, L500.4050, L501.2450 ####[facility] [address] [place], [address] Carbon dioxide, total [Moles /volume] in Central venous bloodOrdered By: Lake Mirza on 12-11-2024 CO2 [Moles/Vol] 18.6 mmol/L Low 21.0-32.0 [facility] Chloride assayOrdered By: Bhavik Mirza on 12-11-2024 Chloride [Moles/Vol] 107 mmol/L 98-108 [facility] Comprehensive Metabolic Prof ilon 12-11-2024 Albumin [Mass/Vol] 3.3 g/dL Low 3.5-5.0 [facility] Comment on above: Performed By: #### L 100.0100, L500.4050, L501.2450 ####[facility] [address] [place], [address] Albumin/Globulin [Mass ratio] 1.1 {ratio} Normal 0.9-2.4 [facility] Comment on above: Performed By: #### L 100.0100, L500.4050, L501.2450 ####[facility] [address] [place], [address] ALK PHOS 85 U/L Normal 35-104 [facility] Comment on above: Performed By: #### L 100.0100, L500.4050, L501.2450 ####[facility] [address] [place], [address] ALT [Catalytic activity/Vol] 16 U/L Normal <=34 [facility] Comment on above: Performed By: #### L 100.0100, L500.4050, L501.2450 ####[facility] [address] [place], [address] AST [Catalytic activity/Vol] 17 U/L Normal <=31 [facility] Comment on above: Performed By: #### L 100.0100, L500.4050, L501.2450 ####[facility] [address] [place], [address] Bilirubin [Mass/Vol] 0.24 mg/dL Normal 0.00-1.30 [facility] Comment on above: Performed By: #### L 100.0100, L500.4050, L501.2450 ####[facility] [address] [place], [address] BUN/CRE 12.0 RATIO Normal 10-20 [facility] Comment on above: Performed By: #### L 100.0100, L500.4050, L501.2450 ####[facility] [address] [place], [address] Calcium [Mass/Vol] 8.5 mg/dL Normal 7.6-11.0 [facility] Comment on above: Performed By: #### L 100.0100, L500.4050, L501.2450 ####[facility] [address] [place], [address] Chloride [Moles/Vol] 107 mmol/L Normal 98-108 [facility] Comment on above: Performed By: #### L 100.0100, L500.4050, L501.2450 ####[facility] [address] [place], [address] CO2 [Moles/Vol] 18.6 mmol/L Low 21.0-32.0 [facility] Comment on above: Performed By: #### L 100.0100, L500.4050, L501.2450 ####[facility] [address] [place], [address] Creatinine [Mass/Vol] 0.53 mg/dL Low 0.70-1.20 [facility] Comment on above: Performed By: #### L 100.0100, L500.4050, L501.2450 ####[facility] [address] [place], [address] ECRCL 164.63 ml/min Normal 50-250 [facility] Comment on above: Performed By: #### L 100.0100, L500.4050, L501.2450 ####[facility] [address] [place], [address] GAP 12 Normal 5-15 [facility] Comment on above: Performed By: #### L 100.0100, L500.4050, L501.2450 ####[facility] [address] [place], [address] GFR/1.73 sq M.predicted among non-blacks MDRD (S/P/Bld) [Vol rate/Area] 130 mL/min/{1.73_m2} Normal >60 [facility] Comment on above: Result Comment: mL/m in/1.73m2 CKD-EPI Creatinine Equation (2020) Performed By: #### L 100.0100, L500.4050, L501.2450 ####[facility] [address] [place], [address] Globulin (S) [Mass/Vol] 2.9 g/dL Normal 2.2-4.2 [facility] Comment on above: Performed By: #### L 100.0100, L500.4050, L501.2450 ####[facility] [address] [place], [address] Glucose [Mass/Vol] 125 mg/dL High 70-99 [facility] Comment on above: Performed By: #### L 100.0100, L500.4050, L501.2450 ####[facility] [address] [place], [address] Potassium [Moles/Vol] 3.5 mmol/L Normal 3.3-5.1 [facility] Comment on above: Performed By: #### L 100.0100, L500.4050, L501.2450 ####[facility] [address] [place], [address] Sodium [Moles/Vol] 137 mmol/L Normal 133-145 [facility] Comment on above: Performed By: #### L 100.0100, L500.4050, L501.2450 ####[facility] [address] [place], [address] T PROT 6.2 g/dL Normal 5.9-8.4 [facility] Comment on above: Performed By: #### L 100.0100, L500.4050, L501.2450 ####[facility] [address] [place], [address] Urea nitrogen [Mass/Vol] 6 mg/dL Normal 4-19 [facility] Comment on above: Performed By: #### L 100.0100, L500.4050, L501.2450 ####[facility] [address] [place], [address] Emergency Department Summary on 12-11-[address] [facility] Medical Records Department [address] [place] [address] Emergency Department Summary 12/11/24 MR#: [id number] Acct: [id number] Name: SHILPA HOANG Rep #: [id number] : 1995 28 From: [place] PCP: Dr. David Mckinney MD Status:DEP ER Location: ED HPI HPI - GI History of Present Illness Chief Complaint: Abd Pain Informant: patient Narrative Narrative: G5, P4 15-16 with gestation followed by [facility]. Awake and abdominal discomfort this morning that resolved she had lightheaded symptoms. No urinary symptoms. No vaginal bleeding. No cough. No chest pains. She has seen her OB team confirm intrauterine . Prior similar symptoms: No PFSH PFSH Medical History (spontaneous vaginal delivery) Depression Family history of hearing loss at age younger than 7 years Gestational HTN Stillborn, normal History of placental abruption Trauma depression Anxiety Cervical myofascial strain Home Medications ???Medication ???Instructions ???Recorded ???Last Taken ???Type gmhooxzn-znj-Be-FA 1 mg 1 tab PO DAILY 09/13/21 02/17/22 09:00 History tablet amoxicillin 500 mg capsule 500 mg PO TID 7 days #21 caps 09/22 08/17 Unknown Rx ondansetron 4 mg disintegrating 4 mg PO TID PRN nausea and 5 Unknown Rx tablet vomiting #21 tabs nitrofurantoin 100 mg PO Q12 #10 CAPSULES 5 Unknown Rx monohydrate/macrocrysta ls 100 mg capsule Allergy/AdvReac Type Severity Reaction Status Date / Time walnut (walnuts) Allergy Severe Swelling Verified 12/11/24 13:47 corn AdvReac Other Verified 12/11/24 13:47 Social History number of children: 2 Smoking Status: Former smoker alcohol intake: former 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 ROS ROS ED Constitutional Constitutional ED: Denies chills, fever(s) or sweats ENT ENT ED: Denies sore throat Cardiovascular Cardiovascular: Reports other Details: Lightheaded ; Denies chest pain, leg edema, palpitations or racing heartbeat Respiratory/Chest Respiratory/Chest: Denies cough, dyspnea or dyspnea on exertion Gastrointestinal Gastrointestinal: Reports abdominal pain; Denies diarrhea, nausea or vomiting Genitourinary Genitourinary ED: Denies dysuria, hematuria or urinary frequency Musculoskeletal Musculoskeletal: Denies back pain, extremity pain or neck pain Integumentary Denies rash or wounds Neurologic Neurologic: Denies headache(s), paresthesias or weakness EXAM Physical Exam Const Vital Signs: 12/11/24 13:47 Temperature 98.8 F Temperature Source Oral Pulse Rate 93 Respiratory Rate 16 Blood Pressure 132/79 H Blood Pressure Mean 96 Pulse Ox 99 Oxygen Delivery Method Room Air Positive well nourished and well developed General Appearance ED: well developed and NAD HEENT Reports moist mucous membranes normocephalic and atraumatic Eyes General Eye ED: Yes normal appearance of both eyes Neck full ROM Chest Wall Chest: Negative for tenderness Resp normal respiratory effort and normal air movement Effort and Inspection: symmetric chest movement; Negative for respiratory distress Cardio regular rate, regular rhythm and no murmurs Peripheral Pulses: pulses 2+ throughout GI normal to inspection, nondistended, normoactive bowel sounds and non-tender GI Narrative: Negative Langley's or McBurney's tenderness. Palpation: Negative for guarding or rebound tenderness present Extremity normal to inspection General Extremety ED: Negative for edema or tenderness General Extremity: Negative for edema Neuro oriented x3 and no sensory deficits noted Sensorium / Orientation: awake and alert Skin no rashes or lesions noted and no wounds MDM MDM MDM Narrative Medical decision making narrative: Interventions / MDM: Differential diagnosis: First trimester , abdominal pain, UTI and Diagnosis considered but do not suspect: N/A My EKG interpretation: Sinus rate of 75, no ST or T wave changes QTc 448. Imaging independently reviewed and interpreted by myself: N/A External documents reviewed: N/A Test considered but not ordered:N/A ED course: Transabdominal pain. Lightheaded symptoms. EKG normal. Will check abdominal labs and urine. Will reevaluate. 1515: Bedside ultrasound intrauterine heart tone 154. Symptoms staying away. Labs stable normal lipase normal creatinine normal electrolytes white count 7.5. Awaiting urine. While awaiting urine, patient reported nursing she had to leave but she has children at home. Discussed with patient we will call her with results. 22 (more content not included)... Normal [facility] Eosinophil percentageOrdered By: Lake Mirza on 12-11-2024 Eosinophils/100 WBC (Bld) 4.7 % 0-5 [facility] Erythrocyte distribution wid th ratioOrdered By: Lake Mirza on 12-11-2024 Erythrocyte distribution width (RBC) [Ratio] 14.6 % 11.6-14.6 [facility] Erythrocyte distribution wid th standard deviationOrdered By: Lake Mirza on 12-11-2024 Erythrocyte distribution width (RBC) [Ratio] 45.6 fl High 35.1-43.9 [facility] Glomerular filtration rate ( GFR) estimation/1.73 sq m using serum, plasma, or whole bOrdered By: Lake Mirza on 12-11-2024 GFR/1.73 sq M.predicted among non-blacks MDRD (S/P/Bld) [Vol rate/Area] 130 mL/min/{1.73_m2} >60 [facility] Comment on above: mL/min/1.73m2 CKD-EP I Creatinine Equation (2020) Hematocrit Auto (Bld) [Volum e fraction]Ordered By: Lake Mirza on 12-11-2024 Hematocrit (Bld) [Volume fraction] 34.1 % Low 37-47 [facility] Hemoglobin measurementOrdere d By: Lake Mirza on 12-11-2024 Hemoglobin (Bld) [Mass/Vol] 11.0 g/dL Low 12.0-15.0 [facility] Immature granulocytes/100 WB C Auto (Bld)Ordered By: Lake Mirza on 12-11-2024 Immature granulocytes/100 WBC (Bld) 0.400 % 0.0-0.9 [facility] Comment on above: IG% - Immature Granu locytes (promyelocytes, myelocytes and metamyelocytes) > 1% indicates that a LEFT SHIFT is Present. Ketones Test strip Ql (U)Ord ered By: Lake Mirza on 12-11-2024 Ketones Ql (U) Negative Negative [facility] Laboratory - Chemistry and C hemistry - challengeOrdered By: Lake Mirza on 12-11-2024 AST [Catalytic activity/Vol] 17 U/L <32 [facility] Lipaseon 12-11-2024 Lipase [Catalytic activity/Vol] 22 U/L Normal 13-75 [facility] Comment on above: Result Comment: Plea se note: LIPASE revised reference range effective 22. New Lipase methodology. Expected to produce lower values than the previous assay method. NEW Reference Range: 13 - 75 U/L Performed By: #### L 100.0100, L500.4050, L501.2450 ####[facility] [address] [place], [address] Lipase measurementOrdered By : Lake Mirza on 12-11-2024 Lipase [Catalytic activity/Vol] 22 U/L 13-75 [facility] Comment on above: Please note:LIPASE r evised reference range effective 22. New Lipase methodology. Expected to produce lower values than the previous assay method. NEW Reference Range: 13 - 75 U/L MCV (mean corpuscular volume ) determinationOrdered By: Lake Mirza on 12-11-2024 MCV (RBC) [Entitic vol] 85.7 fL 81-99 [facility] Mean corpuscular hemoglobin (MCH) determinationOrdered By: Lake Mirza on 12-11-2024 MCH (RBC) [Entitic mass] 27.6 pg 27.0-32.0 [facility] Mean corpuscular hemoglobin concentration (MCHC) determinationOrdered By: Lake Mirza on 12-11-2024 MCHC (RBC) [Mass/Vol] 32.3 g/dL 32-36 [facility] Mean platelet volume determi nationOrdered By: Lake Mirza on 12-11-2024 Platelet mean volume (Bld) [Entitic vol] 12.0 fL 6.2-12.0 [facility] Microscopic analysis of urin e for red blood cells (RBC)Ordered By: Lake Mirza on 12-11-2024 Microscopic analysis of urine for red blood cells (RBC) 0-5 SEEN /hpf 0-5 [facility] Monocyte percentageOrdered B y: Lake Mirza on 12-11-2024 Monocytes/100 WBC (Bld) 4.6 % 0-10 [facility] Mucus LM Ql (Urine sed)Order ed By: Lake Mirza on 12-11-2024 Mucus Ql (Urine sed) 0 SEEN /hpf [facility] Neutrophil percentageOrdered By: Lake Mirza on 12-11-2024 Neutrophils/100 WBC (Bld) 69.3 % 47-70 [facility] Nitrite Test strip Ql (U)Ord ered By: Lake Mirza on 12-11-2024 Nitrite Ql (U) Negative Negative [facility] Nucleated red blood cell per centageOrdered By: Lake Mirza on 12-11-2024 Nucleated RBC/100 WBC (Bld) [Ratio] 0 % 0-5 [facility] Platelet countOrdered By: Bhavik Mirza on 12-11-2024 Platelets (Bld) [#/Vol] 176 10*3/uL 150-450 [facility] Potassium measurement (mass/ volume)Ordered By: Lake Mirza on 12-11-2024 Potassium (Unsp spec) [Mass/Vol] 3.5 mmol/L 3.3-5.1 [facility] Protein Test strip Ql (U)Ord ered By: Lake Mirza on 12-11-2024 Protein Ql (U) 15 mg/dl High Negative [facility] RBC Auto (Bld) [#/Vol]Ordere d By: Lake Mirza on 12-11-2024 RBC (Bld) [#/Vol] 3.98 10*6/uL Low 4.2-5.4 [facility] Serum creatinine measurement (mass/volume)Ordered By: Lake Mirza on 12-11-2024 Creatinine [Mass/Vol] 0.53 mg/dL Low 0.70-1.20 [facility] Serum globulin measurementOr dered By: Lake Mirza on 12-11-2024 Globulin (S) [Mass/Vol] 2.9 g/dL 2.2-4.2 [facility] Serum glucose measurement (m ass/volume)Ordered By: Lake Mirza on 12-11-2024 Glucose [Mass/Vol] 125 mg/dL High 70-99 [facility] Serum or plasma alanine rivero otransferase (ALT) measurementOrdered By: Lake Mirza on 12-11-2024 ALT [Catalytic activity/Vol] 16 U/L <35 [facility] Serum or plasma albumin roopa urement (mass/volume)Ordered By: Lkae Mirza on 12-11-2024 Albumin [Mass/Vol] 3.3 g/dL Low 3.5-5.0 [facility] Serum or plasma albumin/glob ulin mass ratioOrdered By: Lake Mirza on 12-11-2024 Albumin/Globulin [Mass ratio] 1.1 {ratio} 0.9-2.4 [facility] Serum or plasma alkaline robert sphatase measurementOrdered By: Lake Mirza on 12-11-2024 ALP [Catalytic activity/Vol] 85 U/L 35-104 [facility] Serum or plasma calcium roopa urement (mass/volume)Ordered By: Lake Mirza on 12-11-2024 Calcium [Mass/Vol] 8.5 mg/dL 7.6-11.0 [facility] Serum or plasma urea nitroge n measurement (mass/volume)Ordered By: Lake Mirza on 12-11-2024 Urea nitrogen [Mass/Vol] 6 mg/dL 4-19 [facility] Sodium levelOrdered By: Lake Mirza on 12-11-2024 Sodium [Moles/Vol] 137 mmol/L 133-145 [facility] Squamous epithelial cells de tection in urine sediment by light microscopyOrdered By: Lake Mirza on 12-11-2024 Epithelial cells.squamous LM Ql (Urine sed) 0-5 SEEN /hpf 5-10 [facility] Total proteinOrdered By: Danny Mirza on 12-11-2024 Protein [Mass/Vol] 6.2 g/dL 5.9-8.4 [facility] Urinalysis, Completeon 12-11 BACTERIA 2+ /hpf Normal None Seen [facility] Comment on above: Order Comment: CLEAN CATCH Performed By: #### L 400.0001 ####[facility] [address] [place], [address] EPI,SQUAMOUS 0-5 SEEN Normal 5-10 [facility] Comment on above: Order Comment: CLEAN CATCH Performed By: #### L 400.0001 ####[facility] [address] [place], [address] RBC 0-5 SEEN Normal 0-5 [facility] Comment on above: Order Comment: CLEAN CATCH Performed By: #### L 400.0001 ####[facility] [address] [place], [address] WBC 10-25 SEEN Normal 0-5 [facility] Comment on above: Order Comment: CLEAN CATCH Performed By: #### L 400.0001 ####[facility] [address] [place], [address] Mucus Ql (Urine sed) 0 SEEN Normal [facility] Comment on above: Order Comment: CLEAN CATCH Performed By: #### L 400.0001 ####[facility] [address] [place], [place], [address] Urine clarityOrdered By: Danny Mirza on 12-11-2024 Clarity (U) Cloudy Clear [facility] Urine color determinationOrd ered By: Lake Mirza on 12-11-2024 Color (U) Straw Yellow [facility] Urine glucose detectionOrder ed By: Lake Mirza on 12-11-2024 Glucose Ql (U) Normal mg/dl Normal [facility] Urine leukocyte esterase det ection by dipstickOrdered By: Lake Mirza on 12-11-2024 Leukocyte esterase Test strip Ql (U) 500 /ul High Negative [facility] Urine pHOrdered By: Lake Mirza on 12-11-2024 pH (U) 6.0 [pH] 5.0 - 8.0 [facility] Urine sediment bacteria coun t by microscopy (number/high power field)Ordered By: Lake Mirza on 12-11-2024 Bacteria LM.HPF (Urine sed) [#/Area] 2 /[HPF] None Seen [facility] Urine specific gravity measu rementOrdered By: Lake Mirza on 12-11-2024 Specific gravity (U) [Rel density] 1.025 1.002-1.030 [facility] Urine urobilinogen measureme ntOrdered By: Lake Mirza on 12-11-2024 Urobilinogen Ql (U) Normal mg/dl Normal [facility] White blood cell (WBC) count Ordered By: Lake Mirza on 12-11-2024 WBC (Bld) [#/Vol] 7.5 10*3/uL 4.4-11.0 [facility] White blood cell countOrdere d By: Lake Mirza on 12-11-2024 White blood cell count 10-25 SEEN /hpf 0-5 [facility] CNPNon 11-19-2024 CNPN Telephone (FARIDAOBA) SHILPA HOANG ([id number]) 1995 F Date Time Provider Department 11/19/24 [...] tablet by mouth once daily. - PNV no.[id number] e 29-1 mg tab Take 1 tablet [...] Encounter Status:Closed by JUSTIN VALENTINO on 11/19/24 [facility] [id number] PLUSon 05-30-2025 Cell-free DNA./Cell-free DNA.total Dosage of chromosome-specific cfDNA (cfDNA) [Molar fraction] 16% Normal [facility] Comment on above: Order Comment: Speci men Type: BLOOD SPECIMENOrdering Facility: [facility] Address: [address] [place] [address] Performed By: #### M AT21 ####[facility] LABCLIA [id number] [place] [address] Chr 13+18+21+X+Y aneuploidy Dosage of chromosome-specific cfDNA Ql (cfDNA) Negative Normal [facility] Comment on above: Order Comment: Speci men Type: BLOOD SPECIMENOrdering Facility: [facility] Address: [address] [place] [address] Performed By: #### M AT21 ####[employer] LABCLIA [id number] [place] [address] Chr 21 trisomy Dosage of chromosome-specific cfDNA Ql (cfDNA) Negative Normal [facility] Comment on above: Order Comment: Speci men Type: BLOOD SPECIMENOrdering Facility: [facility] Address: [address] [place] [address] Performed By: #### M AT21 ####[employer] LABCLIA [id number] [place] [address] Chr X and Y aneuploidy risk Sequencing Ql (cfDNA) [Interp] Not detected Normal [facility] Comment on above: Order Comment: Speci men Type: BLOOD SPECIMENOrdering Facility: [facility] Address: [address] [place] [address] Result Comment: Not Detected Not Detected Performed By: #### M AT21 ####[employer] LABCLIA [id number] [place] [address] Citation Jose (Reference lab test) Comment Normal [facility] Comment on above: Order Comment: Speci men Type: BLOOD SPECIMENOrdering Facility: [facility] Address: [address] [place] [address] Result Comment: 1. Abdirahman HAYS, et al. Jahaira Med. 2012;14(3):296-305. 2. Latha WADE et al. Prenat Diag. 2013;33(6):591-597. 3. Clemente C, et al. Clin Chem. 2015 Apr;61(4):608-616. 4. Paul HAYS et al. Jahaira Med. 2011;13(11):913-920. 5. ACOG/SMFM Practice Bulletin No. 226, Mar 2020. Performed By: #### M AT21 ####[facility] LABCLIA [id number] [place] [address] Gestational age Estimated from conception date Marquez Normal [facility] Comment on above: Order Comment: Costa bergeron Type: BLOOD SPECIMENOrdering Facility: [facility] Address: [address] [place] [address] Performed By: #### M AT21 ####[facility] LABCLIA [id number] [place] [address] GESTATIONALAGE AGE > OR = 9W Yes Normal [facility] Comment on above: Order Comment: Speci elyssa Type: BLOOD SPECIMENOrdering Facility: [facility] Address: [address] [place] [address] Performed By: #### M AT21 ####[facility] LABCLIA [id number] [place] [address] Laboratory comment Jose (Report) Comment Normal [facility] Comment on above: Order Comment: Costa bergeron Type: BLOOD SPECIMENOrdering Facility: [facility] Address: [address] [place] [address] Result Comment: The MaterniT(R) 21 PLUS laboratory-developed test (LDT) analyzes circulating cell-free DNA from a maternal blood sample. This test is used for screening purposes and not diagnostic. Clinical correlation is recommended. Validation data on twin pregnancies is limited and the ability of this test to detect aneuploidy in higher multiple gestations has not yet been validated. Performed By: #### M AT21 ####[facility] LABCLIA [id number] [place] [address] grants director name Nom (Provider) Comment Normal [facility] Comment on above: Order Comment: Speci men Type: BLOOD SPECIMENOrdering Facility: [facility] Address: [address] [place] [address] Result Comment: This specimen showed an expected representation of chromosome 21, 18 and 13 material. Clinical correlation is suggested. Comment Torito Butler MD, PhD, Director, [employer] Performed By: #### M AT21 ####[facility] LABCLIA [id number] [place] [address] LIMITATIONS OF THE TEST Comment [facility] Comment on above: Order Comment: Speci men Type: BLOOD SPECIMENOrdering Facility: [facility] Address: [address] [place] [address] Result Comment: Kayli talbot the results of [...] and Fragmin(R)). Performed By: #### M AT21 ####[employer] [id number] [place] [address] Monosomy X risk Dosage of chromosome-specific cfDNA Ql (Plasma cell-free+WBC DNA) [Interp] Not detected Normal [facility] Comment on above: Order Comment: Costa bergeron Type: BLOOD SPECIMENOrdering Facility: [facility] Address: [address] [place] [address] Performed By: #### M AT21 ####[employer] Storage SystemsIA [id number] [place] [address] NEGATIVE PREDICTIVE VALUE Note Normal [facility] Comment on above: Order Comment: Costa bergeron Type: BLOOD SPECIMENOrdering Facility: [facility] Address: [address] [place] [address] Result Comment: The Negative Predictive Value (NPV) for trisomy 21, 18, and 13 is greater than 99%. The NPV for SCA and ESS cannot be calculated as SCA and ESS are only reported when an abnormality is detected. Performed By: #### M AT21 ####[employer] Storage SystemsIA [id number] [place] [address] PERFORMANCE CHARACTERISTICS Note Normal [facility] Comment on above: Order Comment: Costa bergeron Type: BLOOD SPECIMENOrdering Facility: [facility] Address: [address] [place] [address] Result Comment: ! Sex ! Accuracy: 99.4% [...] ! ! ! * As reported in [facility] database nstd37 [https://www.ncbi.nlm.nih.gov/dbvar/studies/nstd37/ ] # Estimated Sensitivity. [...] gestation only. Performed By: #### M AT21 ####[employer] LABAngstroIA [id number] [place] [address] POSITIVE PREDICTIVE VALUE N/A Normal [facility] Comment on above: Order Comment: Speci men Type: BLOOD SPECIMENOrdering Facility: [facility] Address: [address] [place] [address] Performed By: #### M AT21 ####[employer] LABCLIA [id number] [place] [address] Reference Lab Test Method Comment Normal [facility] Comment on above: Order Comment: Gingeri elyssa Type: BLOOD SPECIMENOrdering Facility: [facility] Address: [address] [place] [address] Result Comment: See Notes Circulating cell-free DNA [...] and 22. Performed By: #### M AT21 ####[facility] LABCLIA [id number] [place] [address] Service comment (Unsp spec) [Interp] Comment Normal [facility] Comment on above: Order Comment: Speci men Type: BLOOD SPECIMENOrdering Facility: [facility] Address: [address] [place] [address] Result Comment: See Notes [employer]. is a subsidiary of [employer], using the brand [employer]. This test was developed and its performance characteristics determined by [employer]. It has not been cleared or approved by the Food and Drug Administration. This laboratory is certified under the Clinical Laboratory Improvement Amendments (CLIA) as qualified to perform high complexity clinical laboratory testing and accredited by the [employer] (CAP). If there is future clinical need for adding MaterniT GENOME testing, this specimen will be available until term. [facility] samples will not be retained beyond 60 days. [facility] patients will have to send a new sample for re-sequencing ([facility] Test Code: 517120). Performed By: #### M AT21 ####[employer] LABCLIA [id number] [place] [address] Sex Dosage of chromosome-specific cfDNA Nom (cfDNA) Comment Normal [facility] Comment on above: Order Comment: Speci men Type: BLOOD SPECIMENOrdering Facility: [facility] Address: [address] [place] [address] Result Comment: Cons istent with Female Performed By: #### M AT21 ####[employer] LABAngstroIA [id number] [place] [address] Test performance information Jose (Unsp spec) Comment Normal [facility] Comment on above: Order Comment: Speci men Type: BLOOD SPECIMENOrdering Facility: [facility] Address: [address] [place] [address] Result Comment: The performance characteristics of the MaterniT(R) 21 PLUS laboratory-developed test (LDT) have been determined in a clinical validation study with women at increased risk for chromosomal aneuploidy.[1-4] Performed By: #### M AT21 ####[employer] LABCLIA [id number] [place] [address] Trisomy 13 risk Dosage of chromosome-specific cfDNA Ql (cfDNA) [Interp] Negative Normal [facility] Comment on above: Order Comment: Speci men Type: BLOOD SPECIMENOrdering Facility: [facility] Address: [address] [place] [address] Performed By: #### M AT21 ####[employer] LABCLIA [id number] [place] [address] Trisomy 18 risk Dosage of chromosome-specific cfDNA Ql (Plasma cell-free+WBC DNA) [Interp] Negative Normal [facility] Comment on above: Order Comment: Speci men Type: BLOOD SPECIMENOrdering Facility: [facility] Address: [address] [place] [address] Performed By: #### M AT21 ####[employer] LABCLIA [id number] [place] [address] C. trachomatis+N. gonorrhoea e DNA OFELIA+probe Ql (Unsp spec)on 11-18-2024 C. trachomatis rRNA OFELIA+probe Ql (Unsp spec) Not detected Normal Not detected [facility] Comment on above: Order Comment: Speci men Type: BLOOD SPECIMEN [facility] Address: [address] [place] [address] Performed By: #### 5 195-3, 64688-1, 81307-1 #### [facility] CLIA [id number] [address] [place] [address] [place] N. gonorrhoeae rRNA OFELAI+probe Ql (Unsp spec) Not detected Normal Not detected [facility] Comment on above: Order Comment: Speci men Type: BLOOD SPECIMEN [facility] Address: [address] [place] [address] Performed By: #### 5 195-3, 45380-7, 80256-1 #### [facility] CLIA [id number] [address] [place] [address] [place] POC DIETETIC TECH ULTRASOUNDon 11-19-19 Indication Viability; confirm cardiac activity, Uncertain dates [...] Read By: Johana Turner CNM MATERNAL MEDICINE [facility] Radiology Study observation (narrative) [facility] CBC panel Auto (Bld)on 11-11 Erythrocyte distribution width (RBC) [Ratio] 15.1 % High 11.5-15.0 [facility] Comment on above: Order Comment: Costa bergeron Type: BLOOD SPECIMEN [facility] Address: [address] [place] [address] Performed By: #### 5 195-3, 83044-5, 28708-2 #### [facility] CLIA [id number] [address] [place] [address] [place] Hematocrit (Bld) [Volume fraction] 34.1 % Low 36.0-46.0 [facility] Comment on above: Order Comment: Costa bergeron Type: BLOOD SPECIMEN [facility] Address: [address] [place] [address] Performed By: #### 5 195-3, 76100-7, 14311-3 #### [facility] CLIA [id number] [address] [place] [address] [place] Hemoglobin (Bld) [Mass/Vol] 11.0 g/dL Low 11.5-15.5 [facility] Comment on above: Order Comment: Costa bergeron Type: BLOOD SPECIMEN [facility] Address: [address] [place] [address] Performed By: #### 5 195-3, 09683-3, 89640-9 #### [facility] CLIA [id number] [address] [place] [address] [place] MCH (RBC) [Entitic mass] 26.8 pg Normal 26.0-34.0 [facility] Comment on above: Order Comment: Speci men Type: BLOOD SPECIMEN [facility] Address: [address] [place] [address] Performed By: #### 5 195-3, 87921-5, 38162-2 #### [facility] CLIA [id number] [address] [place] [address] [place] MCHC (RBC) [Mass/Vol] 32.3 g/dL Normal 30.5-36.0 [facility] Comment on above: Order Comment: Speci men Type: BLOOD SPECIMEN [facility] Address: [address] [place] [address] Performed By: #### 5 195-3, 47513-5, 72362-7 #### [facility] CLIA [id number] [address] [place] [address] [place] MCV (RBC) [Entitic vol] 83.2 fL Normal 80.0-100.0 C [facility] Comment on above: Order Comment: Speci men Type: BLOOD SPECIMEN [facility] Address: [address] [place] [address] Performed By: #### 5 195-3, 06495-2, 13543-4 #### [facility] CLIA [id number] [address] [place] [address] [place] Nucleated RBC (Bld) [#/Vol] 10*3/uL Normal <0.01 [facility] Comment on above: Order Comment: Speci men Type: BLOOD SPECIMEN [facility] Address: [address] [place] [address] Performed By: #### 5 195-3, 11476-1, 39861-3 #### [facility] CLIA [id number] [address] [place] [address] [place] Platelet mean volume (Bld) [Entitic vol] 10.9 fL Normal 9.0-12.7 [facility] Comment on above: Order Comment: Speci men Type: BLOOD SPECIMEN [facility] Address: [address] [place] [address] Performed By: #### 5 195-3, 55579-9, 90259-6 #### [facility] CLIA [id number] [address] [place] [address] [place] Platelets (Bld) [#/Vol] 197 10*3/uL Normal 150-400 [facility] Comment on above: Order Comment: Speci men Type: BLOOD SPECIMEN [facility] Address: [address] [place] [address] Performed By: #### 5 195-3, 68745-0, 39793-8 #### [facility] CLIA [id number] [address] [place] [address] [place] RBC (Bld) [#/Vol] 4.10 10*6/uL Normal 3.90-5.20 [facility] Comment on above: Order Comment: Speci men Type: BLOOD SPECIMEN [facility] Address: [address] [place] [address] Performed By: #### 5 195-3, 28704-2, 70863-8 #### [facility] CLIA [id number] [address] [place] [address] [place] WBC (Bld) [#/Vol] 6.72 10*3/uL Normal 3.70-11.00 [facility] Comment on above: Order Comment: Speci men Type: BLOOD SPECIMEN [facility] Address: [address] [place], [place] [address] Performed By: #### 5 195-3, 82116-2, 72124-9 #### [facility] CLIA [id number] [address] [place] [address] [place] HBV surface Ag Ser Qlon 10-22 HBV surface Ag Ql (S) Negative Normal Negative [facility] Comment on above: Order Comment: Speci men Type: BLOOD SPECIMEN [facility] Address: [address] [place] [address] Performed By: #### 5 195-3, 00059-1, 58715-2 #### [facility] CLIA [id number] [address] [place] [address] [place] HCV Ab Ser Qlon 11-11-2024 HCV Ab Ql (S) Negative Normal Negative [facility] Comment on above: Order Comment: Speci men Type: BLOOD SPECIMENOrdering Facility: [facility] Address: [address] [place] [address] Result Comment: The result suggests no evidence of infection with Hepatitis C virus. Should recent infection be suspected, repeat testing may be considered 4-6 weeks after this draw. Performed By: #### 1 6128-1 ####[facility] LABCLIA [id number] [place] [address] [place] HIV 1+2 Ab IA Qlon HIV 1 and 2 Ab IA.rapid Nom (S/P/Bld) Normal [facility] Comment on above: Order Comment: Speci men Type: BLOOD SPECIMEN [facility] Address: [address] [place] [address] Result Comment: Test not indicated. Performed By: #### 5 195-3, 63745-6, 74655-8 #### [facility] CLIA [id number] [address] [place] [address] [place] HIV 1+2 Ab+HIV1 p24 Ag IA Ql Non-Reactive Normal Nonreactive [facility] Comment on above: Order Comment: Speci men Type: BLOOD SPECIMEN [facility] Address: [address] [place] [address] Performed By: #### 5 195-3, 06414-9, 09081-5 #### [facility] CLIA [id number] [address] [place] [address] [place] HIV immunoassay testing algorithm interpretation (S/P/Bld) [Interp] Normal [facility] Comment on above: Order Comment: Speci men Type: BLOOD SPECIMEN [facility] Address: [address] [place] [address] Result Comment: No e vidence of HIV-1 or HIV-2 infection. Should recent infection be suspected, repeat testing may be considered 2-3 weeks after this draw. [place] Rev. Code 3701.243(E): This information has been [...] or diagnoses. Performed By: #### 5 195-3, 45681-5, 78839-3 #### [facility] CLIA [id number] [address] [place] [address] [place] HbA1c (Bld)on 11-11-2024 Average glucose Estimated from glycated hemoglobin (Bld) [Mass/Vol] 88 mg/dL Normal [facility] Comment on above: Order Comment: Speci men Type: BLOOD SPECIMENOrdering Facility: [facility] Address: [address] [place] [address] Result Comment: eAG: (Estimated average glucose) is a calculated value from HgbA1c and is ict sales representative of the average blood glucose level in the last 2-3 month period. Performed By: #### 5 5454-3 ####[facility] LABCLIA [id number] [place] [address] [place] HbA1c (Bld) [Mass fraction] 4.7 % Normal 4.3-5.6 [facility] Comment on above: Order Comment: Costa bergeron Type: BLOOD SPECIMENOrdering Facility: [facility] Address: [address] [place] [address] Result Comment: Amer ican Diabetes Association guidelines indicate that patients with HgbA1c in the range 5.7-6.4% are at increased risk for development of diabetes, and intervention by lifestyle modification may be beneficial. HgbA1c greater or equal to 6.5% is considered diagnostic of diabetes. Performed By: #### 5 5454-3 ####[facility] LABCLIA [id number] [address] RUBELLA IGG ANTIBODYon 11-11 RUBELLA IGG AB, QUAL Positive Normal Positive [facility] Comment on above: Order Comment: Costa bergeron Type: BLOOD SPECIMENOrdering Facility: [facility] Address: [address] [place] [address] Result Comment: The result suggests recent or past exposure to Rubella virus or history of Rubella vaccination. Positive result may also be seen due to presence of passively-transferred antibodies. Please correlate with patient's history. Performed By: #### R UBIGG ####[facility] LABCLIA [id number] [address] [place] Reagin and Treponema pallidu m IgG and IgM [Interp]on 11-11-2024 T. pallidum IgG+IgM IA Ql (S) Non-Reactive Normal Nonreactive [facility] Comment on above: Order Comment: Costa bergeron Type: BLOOD SPECIMEN [facility] Address: [address] [place] [address] Performed By: #### 5 195-3, 20473-9, 63396-6 #### [facility] CLIA [id number] [address] [place] [address] [place] Reagin+T pallidum IgG+IgM Se rPl-Impon 11-11-2024 Reagin and Treponema pallidum IgG and IgM [Interp] Cannot exclude recent Treponemal infection if specimen collected within 7-10 days after appearance of suspect lesions or 2-3 weeks after an exposure. Clinical correlation is required. Normal [facility] Comment on above: Order Comment: Speci men Type: BLOOD SPECIMEN [facility] Address: [address] [place] [address] Performed By: #### 5 195-3, 67424-4, 17535-1 #### [facility] CLIA [id number] [address] [place] [address] [place] TYPE + SCREEN PRENATALon ABO A Normal [facility] Comment on above: Order Comment: Speci men Type: BLOOD SPECIMEN [facility] Address: [address] [place] [address] Performed By: #### 5 195-3, 09184-8, 15432-1 #### [facility] CLIA [id number] [address] [place] [address] [place] Rh Nom (Bld) Positive Normal [facility] Comment on above: Order Comment: Speci men Type: BLOOD SPECIMEN [facility] Address: [address] [place] [address] Performed By: #### 5 195-3, 15816-0, 33701-2 #### [facility] CLIA [id number] [address] [place] [address] [place] TYPE AND SCREEN EXPIRATION 11/14/2024 23:59 Normal [facility] Comment on above: Order Comment: Speci men Type: BLOOD SPECIMEN [facility] Address: [address] [place] [address] Performed By: #### 5 195-3, 90734-5, 07686-7 #### [facility] CLIA [id number] [address] [place] [address] [place] Transvaginal w/Preg USon Transvaginal w/Preg US [facility] [address] [place], [place] [address] Transvaginal w/Preg US MR#: [id number] Acct: [id number] Name: SHILPA HOANG Rep #: [id number] : 1995 F 28 From: Keyon Tapia MD PCP: Dr. David Mckinney MD Status: REG CLI Study: Transvaginal w/Preg US Date of Exam: 10/21/24 Exam# [id number] Ordering Dr: Rizwan Cárdenas DO PROCEDURE: TRANSVAGINAL [...] weeks 1 day, JANE 05/25/2025. Reading Location: [id number] CC: Dr. David Mckinney MD; Rizwan Cárdenas DO Newsperson: Signed Normal [facility] Urine Cultureon 10-14-2024 URC Below infection leve l. Mixed Gram Positive Organisms [place] Count 1000-10,000 MIXC Mixed contaminants. Submit a new specimen if indicated. Normal [facility] Comment on above: Performed By: #### L 501.1105, L100.0500, L501.1400, L501.4100, L501.4405, L501.0900 #### [facility] [address] [place], [place], [address] [facility] CNPN Telephone (OBGYWM) SHILPA HOANG ([id number]) 1995 F Date Time Provider Department 10/13/24 SARAH HUBER OBGYWM During your visit today, we recorded the following information about you: Emily ScottMARYAM 10/13/2024 4:39 PM Signed Lmp: 08/18/24 and was seen [facility] yesterday and was told she was . Patient dx w/ UTI and given amoxicillin and zofran [place]. [place] [address] and ED doctor told her she was 10 to 12 weeks. Denies vaginal bleeding, no fever. Patient has new ob appointment 10/25/24. Patient asking if she needs seen sooner for ED f/u. Sarah Huber MD 10/13/2024 5:36 PM Signed No- 10/25 is fine. Margarita Hearn, CHANA 10/14/2024 8:27 AM Signed Left message for patient to call office. Margarita HighCHANA adam Trisha, RN 10/14/2024 8:33 AM Signed Patient notified. Anca Broussard RN Allergies As of Date: 10/13/2024 Noted Allergy Reaction WALNUT 11/10/2023 10 - Anaphylaxis CORN 11/10/2023 5 - Intolerance SEASONAL ALLERGIES 11/10/2023 3 - Cough Date Reviewed: 09/16/2024 Reviewed by: Hortencia Gould APRN.LEGAL ADVISOR - Fully Assessed Reason for Visit: Patient [...] Status:Closed by ANCA BROUSSARD on 10/14/24 Normal [facility] Absolute lymphocyte countOrd ered By: Rizwan Cárdenas on 10-12-2024 Lymphocytes Auto (Unsp spec) [#/Vol] 2.83 10*3/uL 0.83-4.51 [facility] Absolute neutrophil countOrd ered By: Rizwan Cárdenas on 10-12-2024 Neutrophils (Bld) [#/Vol] 4.0 10*3/uL 2.0-7.7 [facility] Amorphous sediment detection in urine sediment by light microscopyOrdered By: Rizwan Cárdenas on 10-12-2024 Amorphous sediment LM Ql (Urine sed) 2+ [facility] Anion gap in Serum or Plasma Ordered By: Rizwan Cárdenas on 10-12-2024 Anion gap [Moles/Vol] 11 mmol/L 5-15 [facility] Automated lymphocyte count a s percentage of total leukocytesOrdered By: Rizwan Cárdenas on 10-12-2024 Lymphocytes/100 WBC Auto (Unsp spec) 35.3 % 19-41 [facility] [id number] 10-12-2024 ABO and Rh group Nom (Bld) Blood group A Rh(D) positive Normal [facility] Comment on above: Performed By: #### L 500.2500, B882-1, L501.2450, L500.3400, L700.8000, L100.0100 ####[facility] [address] [place], [place], [id number] BUN/creatinine ratioOrdered By: Rizwan Cárdenas on 10-12-2024 Urea nitrogen/Creatinine [Mass ratio] 17.4 mg/mg 10- [facility] Basic Metabolic Profile (BMP )on 10-12-2024 BUN/CRE 17.4 RATIO Normal 04-11 [facility] Comment on above: Performed By: #### L 500.2500, B882-1, L501.2450, L500.3400, L700.8000, L100.0100 #### [facility] [address] [place], [address] Calcium [Mass/Vol] 9.2 mg/dL Normal 7.6-11.0 [facility] Comment on above: Performed By: #### L 500.2500, B882-1, L501.2450, L500.3400, L700.8000, L100.0100 #### [facility] [address] [place], [address] Chloride [Moles/Vol] 104 mmol/L Normal 98-108 [facility] Comment on above: Performed By: #### L 500.2500, B882-1, L501.2450, L500.3400, L700.8000, L100.0100 #### [facility] [address] [place], [address] CO2 [Moles/Vol] 22.3 mmol/L Normal 21.0-32.0 [facility] Comment on above: Performed By: #### L 500.2500, B882-1, L501.2450, L500.3400, L700.8000, L100.0100 #### [facility] [address] [place], [address] Creatinine [Mass/Vol] 0.87 mg/dL Normal 0.70-1.20 [facility] Comment on above: Performed By: #### L 500.2500, B882-1, L501.2450, L500.3400, L700.8000, L100.0100 #### [facility] [address] [place], [address] ECRCL 97.15 ml/min Normal 50-250 [facility] Comment on above: Performed By: #### L 500.2500, B882-1, L501.2450, L500.3400, L700.8000, L100.0100 #### [facility] [address] [place], [address] GAP 11 Normal 5-15 [facility] Comment on above: Performed By: #### L 500.2500, B882-1, L501.2450, L500.3400, L700.8000, L100.0100 #### [facility] [address] [place], [address] GFR/1.73 sq M.predicted among non-blacks MDRD (S/P/Bld) [Vol rate/Area] 94 mL/min/{1.73_m2} Normal >60 [facility] Comment on above: Result Comment: mL/m in/1.73m2 CKD-EPI Creatinine Equation (2020) Performed By: #### L 500.2500, B882-1, L501.2450, L500.3400, L700.8000, L100.0100 #### [facility] [address] [place], [address] Glucose [Mass/Vol] 100 mg/dL High 70-99 [facility] Comment on above: Performed By: #### L 500.2500, B882-1, L501.2450, L500.3400, L700.8000, L100.0100 #### [facility] [address] [place], [address] Potassium [Moles/Vol] 4.0 mmol/L Normal 3.3-5.1 [facility] Comment on above: Performed By: #### L 500.2500, B882-1, L501.2450, L500.3400, L700.8000, L100.0100 #### [facility] [address] [place], [address] Sodium [Moles/Vol] 137 mmol/L Normal 133-145 [facility] Comment on above: Performed By: #### L 500.2500, B882-1, L501.2450, L500.3400, L700.8000, L100.0100 #### [facility] [address] [place], [address] Urea nitrogen [Mass/Vol] 15 mg/dL Normal 4-19 [facility] Comment on above: Performed By: #### L 500.2500, B882-1, L501.2450, L500.3400, L700.8000, L100.0100 #### [facility] [address] [place], [address] Basophil percentageOrdered B y: Rizwan Cárdenas on 10-12-2024 Basophils/100 WBC (Bld) 0.5 % 0-1 [facility] Bilirubin Test strip Ql (U)O rdered By: Rizwan Cárdenas on 10-12-2024 Bilirubin Ql (U) Negative Negative [facility] Bilirubin directOrdered By: Rizwan Cárdenas on 10-12-2024 Bilirubin.direct [Mass/Vol] 0.11 mg/dL 0.00-0.30 [facility] Bilirubin, totalOrdered By: Rizwan Cárdenas on 10-12-2024 Bilirubin [Mass/Vol] 0.25 mg/dL 0.00-1.30 [facility] CBC W/Diff, Automatedon 09-22 Absolute Lymph 2.83 X10 3/uL Normal 0.83-4.51 [facility] Comment on above: Performed By: #### L 500.2500, B882-1, L501.2450, L500.3400, L700.8000, L100.0100 #### [facility] [address] [place], [address] Absolute Neut 4.0 X10 3/uL Normal 2.0-7.7 [facility] Comment on above: Performed By: #### L 500.2500, B882-1, L501.2450, L500.3400, L700.8000, L100.0100 #### [facility] [address] [place], [address] Basophils/100 WBC (Bld) 0.5 % Normal 0-1 [facility] Comment on above: Performed By: #### L 500.2500, B882-1, L501.2450, L500.3400, L700.8000, L100.0100 #### [facility] [address] [place], [address] Eosinophils/100 WBC (Bld) 6.5 % High 0-5 [facility] Comment on above: Performed By: #### L 500.2500, B882-1, L501.2450, L500.3400, L700.8000, L100.0100 #### [facility] [address] [place], [address] Erythrocyte distribution width (RBC) [Ratio] 14.3 % Normal 11.6-14.6 [facility] Comment on above: Performed By: #### L 500.2500, B882-1, L501.2450, L500.3400, L700.8000, L100.0100 #### [facility] [address] [place], [address] Hematocrit (Bld) [Volume fraction] 37.6 % Normal 37-47 [facility] Comment on above: Performed By: #### L 500.2500, B882-1, L501.2450, L500.3400, L700.8000, L100.0100 #### [facility] [address] [place], [address] Hemoglobin (Bld) [Mass/Vol] 12.2 g/dL Normal 12.0-15.0 [facility] Comment on above: Performed By: #### L 500.2500, B882-1, L501.2450, L500.3400, L700.8000, L100.0100 #### [facility] [address] [place], [address] IG% 0.200 Normal 0.0-0.9 [facility] Comment on above: Result Comment: IG% - Immature Granulocytes (promyelocytes, myelocytes and metamyelocytes) > 1% indicates that a LEFT SHIFT is Present. Performed By: #### L 500.2500, B882-1, L501.2450, L500.3400, L700.8000, L100.0100 #### [facility] [address] [place], [address] Lymphocytes/100 WBC (Bld) 35.3 % Normal 19-41 [facility] Comment on above: Performed By: #### L 500.2500, B882-1, L501.2450, L500.3400, L700.8000, L100.0100 #### [facility] [address] [place], [address] MCH (RBC) [Entitic mass] 26.1 pg Low 27.0-32.0 [facility] Comment on above: Performed By: #### L 500.2500, B882-1, L501.2450, L500.3400, L700.8000, L100.0100 #### [facility] [address] [place], [address] MCHC (RBC) [Mass/Vol] 32.4 g/dL Normal 32-36 [facility] Comment on above: Performed By: #### L 500.2500, B882-1, L501.2450, L500.3400, L700.8000, L100.0100 #### [facility] [address] [place], [address] MCV (RBC) [Entitic vol] 80.5 fL Low 81-99 [facility] Comment on above: Performed By: #### L 500.2500, B882-1, L501.2450, L500.3400, L700.8000, L100.0100 #### [facility] [address] [place], [address] Monocytes/100 WBC (Bld) 7.4 % Normal 0-10 [facility] Comment on above: Performed By: #### L 500.2500, B882-1, L501.2450, L500.3400, L700.8000, L100.0100 #### [facility] [address] [place], [address] Neutrophils/100 WBC (Bld) 50.1 % Normal 47-70 [facility] Comment on above: Performed By: #### L 500.2500, B882-1, L501.2450, L500.3400, L700.8000, L100.0100 #### [facility] [address] [place], [address] Nucleated RBC (Bld) [#/Vol] 0 10*3/uL Normal 0-5 [facility] Comment on above: Performed By: #### L 500.2500, B882-1, L501.2450, L500.3400, L700.8000, L100.0100 #### [facility] [address] [place], [address] Platelet mean volume (Bld) [Entitic vol] 11.3 fL Normal 6.2-12.0 [facility] Comment on above: Performed By: #### L 500.2500, B882-1, L501.2450, L500.3400, L700.8000, L100.0100 #### [facility] [address] [place], [address] Platelets (Bld) [#/Vol] 213 10*3/uL Normal 150-450 [facility] Comment on above: Performed By: #### L 500.2500, B882-1, L501.2450, L500.3400, L700.8000, L100.0100 #### [facility] [address] [place], [address] RBC (Bld) [#/Vol] 4.67 10*6/uL Normal 4.2-5.4 [facility] Comment on above: Performed By: #### L 500.2500, B882-1, L501.2450, L500.3400, L700.8000, L100.0100 #### [facility] [address] [place], [address] RDW SD 41.6 fl Normal 35.1-43.9 [facility] Comment on above: Performed By: #### L 500.2500, B882-1, L501.2450, L500.3400, L700.8000, L100.0100 #### [facility] [address] [place], [address] WBC (Bld) [#/Vol] 8.0 10*3/uL Normal 4.4-11.0 [facility] Comment on above: Performed By: #### L 500.2500, B882-1, L501.2450, L500.3400, L700.8000, L100.0100 #### [facility] [address] [place], [address] Carbon dioxide, total [Moles /volume] in Central venous bloodOrdered By: Rizwan Cárdenas on 10-12-2024 CO2 [Moles/Vol] 22.3 mmol/L 21.0-32.0 [facility] Chloride assayOrdered By: Chelsi Cárdenas on 10-12-2024 Chloride [Moles/Vol] 104 mmol/L 98-108 [facility] Emergency Department Summary on 10-12-[address] [facility] Medical Records Department [address] [place] [address] Emergency Department Summary 10/12/24 MR#: [id number] Acct: [id number] Name: SHILPA HOANG Rep #: [id number] : 1995 28 From: Rizwan Cárdenas DO [...] secondary to this comes in for evaluation. [facility] Medical History (Updated 10/12/24 @ 02:[address] Rizwan Cárdenas, ) (spontaneous vaginal delivery) Depression Family history of hearing loss at age younger than 7 years Gestational HTN Stillborn, normal History of placental abruption Trauma depression Anxiety Cervical myofascial strain Home Medications ???Medication ???Instructions ???Recorded ???Last Taken ???Type [id number] 1 mg 1 tab PO DAILY 09/13/21 [...] CN's II-XI (more content not included)... Normal [facility] Eosinophil percentageOrdered By: Rizwan Cárdenas on 10-12-2024 Eosinophils/100 WBC (Bld) 6.5 % High 0-5 [facility] Epithelial cells.squamous LM Ql (Urine sed)Ordered By: Rizwan Cárdenas on 10-12-2024 Epithelial cells.squamous LM.HPF (Urine sed) [#/Area] 25 /[HPF] 5-10 [facility] Erythrocyte distribution wid th (RBC) [Ratio]Ordered By: Rizwan Cárdenas on 10-12-2024 Erythrocyte distribution width (RBC) [Entitic vol] 41.6 fL 35.1-43.9 [facility] Erythrocyte distribution wid th ratioOrdered By: Rizwan Cárdenas on 10-12-2024 Erythrocyte distribution width (RBC) [Ratio] 14.3 % 11.6-14.6 [facility] Erythrocyte distribution wid th standard deviationOrdered By: Rizwan Cárdenas on 10-12-2024 Erythrocyte distribution width (RBC) [Ratio] 41.6 fl 35.1-43.9 [facility] Estimation of creatinine morgan aranceOrdered By: Rizwan Cárdenas on 10-12-2024 Estimated Creatinine Clearance Calc 97.15 ml/min 50-250 [facility] GFR/1.73 sq M.predicted ankita g non-blacks MDRD (S/P/Bld) [Vol rate/Area]Ordered By: Rizwan Cárdenas on 10-12-2024 Estimated GFR (MDRD) Non-Af Amer 94 >60 [facility] Comment on above: mL/min/1.73m2 CKD-EP I Creatinine Equation (2020) Glomerular filtration rate ( GFR) estimation/1.73 sq m using serum, plasma, or whole bOrdered By: Rizwan Cárdenas on 10-12-2024 GFR/1.73 sq M.predicted among non-blacks MDRD (S/P/Bld) [Vol rate/Area] 94 mL/min/{1.73_m2} >60 [facility] Comment on above: mL/min/1.73m2 CKD-EP I Creatinine Equation (2020) Glucose Ql (U)Ordered By: Chelsi Cárdenas on 10-12-2024 Urine Glucose (UA) Normal mg/dl Normal [facility] HCG ( test) QlOrder ed By: Rizwan Cárdenas on 10-12-2024 Human Chorionic Gonadotropin, Quant 23330 mIU/mL High <9 [facility] Comment on above: Gestational Age0.2-1 Week: 5-50 mIU/mL1-2 Weeks: 50-500 mIU/mL2-3 Weeks: 100-5000 mIU/mL3-4 Weeks: 500-10,000 mIU/mL4-5 Weeks:1000-50,000 mIU/mL5-6 Weeks: 10,000-100,000 mIU/mL6-8 Weeks: 15,000-200,000 mIU/mL2-3 Months:10,000-100,000 mIU/mL Hematocrit Auto (Bld) [Volum e fraction]Ordered By: Rizwan Cárdenas on 10-12-2024 Hematocrit (Bld) [Volume fraction] 37.6 % 37-47 [facility] Hemoglobin measurementOrdere d By: Rizwan Cárdenas on 10-12-2024 Hemoglobin (Bld) [Mass/Vol] 12.2 g/dL 12.0-15.0 [facility] Immature granulocytes/100 WB C Auto (Bld)Ordered By: Rizwan Cárdenas on 10-12-2024 Immature granulocytes/100 WBC (Bld) 0.200 % 0.0-0.9 [facility] Comment on above: IG% - Immature Granu locytes (promyelocytes, myelocytes and metamyelocytes) > 1% indicates that a LEFT SHIFT is Present. Ketones Test strip Ql (U)Ord ered By: Rizwan Cárdenas on 10-12-2024 Ketones Ql (U) Negative Negative [facility] - Chemistry and C hemistry - challengeOrdered By: Rizwan Cárdenas on 10-12-2024 AST [Catalytic activity/Vol] 14 U/L <32 [facility] Lipaseon 10-12-2024 Lipase [Catalytic activity/Vol] 26 U/L Normal 13-75 [facility] Comment on above: Result Comment: Raj redman note: LIPASE revised reference range effective 22. New Lipase methodology. Expected to produce lower values than the previous assay method. NEW Reference Range: 13 - 75 U/L Performed By: #### L 500.2500, B882-1, L501.2450, L500.3400, L700.8000, L100.0100 ####[facility] [address] [place], [place], [id number] Lipase measurementOrdered By : Rizwan Cárdenas on 10-12-2024 Lipase [Catalytic activity/Vol] 26 U/L 13-75 [facility] Comment on above: Please note:LIPASE r evised reference range effective 22. New Lipase methodology. Expected to produce lower values than the previous assay method. NEW Reference Range: 13 - 75 U/L Liver Profileon 10-12-2024 Albumin [Mass/Vol] 4.3 g/dL Normal 3.5-5.0 [facility] Comment on above: Performed By: #### L 500.2500, B882-1, L501.2450, L500.3400, L700.8000, L100.0100 ####[facility] [address] [place], [address] ALK PHOS 92 U/L Normal 35-104 [facility] Comment on above: Performed By: #### L 500.2500, B882-1, L501.2450, L500.3400, L700.8000, L100.0100 ####[facility] [address] [place], [address] ALT [Catalytic activity/Vol] 14 U/L Normal <=34 [facility] Comment on above: Performed By: #### L 500.2500, B882-1, L501.2450, L500.3400, L700.8000, L100.0100 ####[facility] [address] [place], [address] AST [Catalytic activity/Vol] 14 U/L Normal <=31 [facility] Comment on above: Performed By: #### L 500.2500, B882-1, L501.2450, L500.3400, L700.8000, L100.0100 ####[facility] [address] [place], [address] Bilirubin [Mass/Vol] 0.25 mg/dL Normal 0.00-1.30 [facility] Comment on above: Performed By: #### L 500.2500, B882-1, L501.2450, L500.3400, L700.8000, L100.0100 ####[facility] [address] [place], [address] Bilirubin.direct [Mass/Vol] 0.11 mg/dL Normal 0.00-0.30 [facility] Comment on above: Performed By: #### L 500.2500, B882-1, L501.2450, L500.3400, L700.8000, L100.0100 ####[facility] [address] [place], [address] Globulin (S) [Mass/Vol] 3.1 g/dL Normal 2.2-4.2 [facility] Comment on above: Performed By: #### L 500.2500, B882-1, L501.2450, L500.3400, L700.8000, L100.0100 ####[facility] [address] [place], [address] T PROT 7.4 g/dL Normal 5.9-8.4 [facility] Comment on above: Performed By: #### L 500.2500, B882-1, L501.2450, L500.3400, L700.8000, L100.0100 ####[facility] [address] [place], [address] Lymphocytes Auto (Unsp spec) [#/Vol]Ordered By: Rizwan Cárdenas on 10-12-2024 Lymphocytes (Bld) [#/Vol] 2.83 10*3/uL 0.83-4.51 [facility] Lymphocytes/100 WBC Auto (Un sp spec)Ordered By: Rizwan Cárdenas on 10-12-2024 Lymphocytes/100 WBC (Bld) 35.3 % 19-41 [facility] MCV (mean corpuscular volume ) determinationOrdered By: Rizwan Cárdenas on 10-12-2024 MCV (RBC) [Entitic vol] 80.5 fL Low 81-99 [facility] Mean corpuscular hemoglobin (MCH) determinationOrdered By: Rizwan Cárdenas on 10-12-2024 MCH (RBC) [Entitic mass] 26.1 pg Low 27.0-32.0 [facility] Mean corpuscular hemoglobin concentration (MCHC) determinationOrdered By: Rizwan Cárdenas on 10-12-2024 MCHC (RBC) [Mass/Vol] 32.4 g/dL 32-36 [facility] Mean platelet volume determi nationOrdered By: Rizwan Cárdenas on 10-12-2024 Platelet mean volume (Bld) [Entitic vol] 11.3 fL 6.2-12.0 [facility] Microscopic analysis of urin e for red blood cells (RBC)Ordered By: Rizwan Cárdenas on 10-12-2024 Microscopic analysis of urine for red blood cells (RBC) 0 SEEN /hpf 0-5 [facility] Urine RBC 0 SEEN /hpf 0-5 [facility] Monocyte percentageOrdered B y: Rizwan Cárdenas on 10-12-2024 Monocytes/100 WBC (Bld) 7.4 % 0-10 [facility] Mucus LM Ql (Urine sed)Order ed By: Rizwan Cárdenas on 10-12-2024 Mucus Ql (Urine sed) 0 SEEN /hpf [facility] Neutrophil percentageOrdered By: Rizwan Cárdenas on 10-12-2024 Neutrophils/100 WBC (Bld) 50.1 % 47-70 [facility] Nitrite Test strip Ql (U)Ord ered By: Rizwan Cárdenas on 10-12-2024 Nitrite Ql (U) Negative Negative [facility] Nucleated red blood cell per centageOrdered By: Rizwan Cárdenas on 10-12-2024 Nucleated RBC/100 WBC (Bld) [Ratio] 0 % 0-5 [facility] Platelet countOrdered By: hCelsi Cárdenas on 10-12-2024 Platelets (Bld) [#/Vol] 213 10*3/uL 150-450 [facility] Potassium (Unsp spec) [Mass/ Vol]Ordered By: Rizwan Cárdenas on 10-12-2024 Potassium [Moles/Vol] 4.0 mmol/L 3.3-5.1 [facility] Potassium measurement (mass/ volume)Ordered By: Rizwan Cárdenas on 10-12-2024 Potassium (Unsp spec) [Mass/Vol] 4.0 mmol/L 3.3-5.1 [facility] Protein Test strip Ql (U)Ord ered By: Rizwan Cárdenas on 10-12-2024 Protein Ql (U) 15 mg/dl High Negative [facility] RBC Auto (Bld) [#/Vol]Ordere d By: Rizwan Cárdenas on 10-12-2024 RBC (Bld) [#/Vol] 4.67 10*6/uL 4.2-5.4 [facility] Serum creatinine measurement (mass/volume)Ordered By: Rizwan Cárdenas on 10-12-2024 Creatinine [Mass/Vol] 0.87 mg/dL 0.70-1.20 [facility] Serum globulin measurementOr dered By: Rizwan Cárdenas on 10-12-2024 Globulin (S) [Mass/Vol] 3.1 g/dL 2.2-4.2 [facility] Serum glucose measurement (m ass/volume)Ordered By: Rizwan Cárdenas on 10-12-2024 Glucose [Mass/Vol] 100 mg/dL High 70-99 [facility] Serum human chorionic gonado tropin detection for pregnancyOrdered By: Rizwan Cárdenas on 10-12-2024 HCG ( test) [place]l [address] mIU/mL High <9 [facility] Comment on above: Gestational Age0.2-1 Week: 5-50 mIU/mL1-2 Weeks: 50-500 mIU/mL2-3 Weeks: 100-5000 mIU/mL3-4 Weeks: 500-10,000 mIU/mL4-5 Weeks:1000-50,000 mIU/mL5-6 Weeks: 10,000-100,000 mIU/mL6-8 Weeks: 15,000-200,000 mIU/mL2-3 Months:10,000-100,000 mIU/mL Serum or plasma alanine rivero otransferase (ALT) measurementOrdered By: Rizwan Cárdenas on 10-12-2024 ALT [Catalytic activity/Vol] 14 U/L <35 [facility] Serum or plasma albumin roopa urement (mass/volume)Ordered By: Rizwan Cárdenas on 10-12-2024 Albumin [Mass/Vol] 4.3 g/dL 3.5-5.0 [facility] Serum or plasma alkaline robert sphatase measurementOrdered By: Rizwan Cárdenas on 10-12-2024 ALP [Catalytic activity/Vol] 92 U/L 35-104 [facility] Serum or plasma calcium roopa urement (mass/volume)Ordered By: Rizwan Cárdenas on 10-12-2024 Calcium [Mass/Vol] 9.2 mg/dL 7.6-11.0 [facility] Serum or plasma urea nitroge n measurement (mass/volume)Ordered By: Rizwan Cárdenas on 10-12-2024 Urea nitrogen [Mass/Vol] 15 mg/dL 4-19 [facility] Sodium levelOrdered By: Nav Cárdenas on 10-12-2024 Sodium [Moles/Vol] 137 mmol/L 133-145 [facility] Squamous epithelial cells de tection in urine sediment by light microscopyOrdered By: Rizwan Cárdenas on 10-12-2024 Epithelial cells.squamous LM Ql (Urine sed) 25-50 SEEN /hpf - [facility] Total proteinOrdered By: Giancarlo Cárdenas on 10-12-2024 Protein [Mass/Vol] 7.4 g/dL 5.9-8.4 [facility] Urinalysis, Completeon 10-12 AMORPHOUS 2+ Normal [facility] Comment on above: Order Comment: CLEAN CATCH Performed By: #### L 501.1105, L100.0500, L501.1400, L501.4100, L501.4405, L501.0900 #### [facility] [address] [place], [address] BACTERIA 2+ /hpf Normal None Seen [facility] Comment on above: Order Comment: CLEAN CATCH Performed By: #### L 501.1105, L100.0500, L501.1400, L501.4100, L501.4405, L501.0900 #### [facility] [address] [place], [address] EPI,SQUAMOUS 25-50 SEEN Normal -10 [facility] Comment on above: Order Comment: CLEAN CATCH Performed By: #### L 501.1105, L100.0500, L501.1400, L501.4100, L501.4405, L501.0900 #### [facility] [address] [place], [address] WBC >100 SEEN Normal 0-5 [facility] Comment on above: Order Comment: CLEAN CATCH Performed By: #### L 501.1105, L100.0500, L501.1400, L501.4100, L501.4405, L501.0900 #### [facility] [address] [place], [address] BILIRUBIN URINE Negative Normal Negative [facility] Comment on above: Order Comment: CLEAN CATCH Performed By: #### L 501.1105, L100.0500, L501.1400, L501.4100, L501.4405, L501.0900 #### [facility] [address] [place], [address] Clarity (U) Sl. Cloudy Normal Clear [facility] Comment on above: Order Comment: CLEAN CATCH Performed By: #### L 501.1105, L100.0500, L501.1400, L501.4100, L501.4405, L501.0900 #### [facility] [address] [place], [address] Color (U) Yellow Normal Yellow [facility] Comment on above: Order Comment: CLEAN CATCH Performed By: #### L 501.1105, L100.0500, L501.1400, L501.4100, L501.4405, L501.0900 #### [facility] [address] [place], [address] GLUCOSE, UR Normal Normal Normal [facility] Comment on above: Order Comment: CLEAN CATCH Performed By: #### L 501.1105, L100.0500, L501.1400, L501.4100, L501.4405, L501.0900 #### [facility] [address] [place], [address] KETONE UR Negative Normal Negative [facility] Comment on above: Order Comment: CLEAN CATCH Performed By: #### L 501.1105, L100.0500, L501.1400, L501.4100, L501.4405, L501.0900 #### [facility] [address] [place], [address] LEUK ESTERASE 500 /ul Abnormal Negative [facility] Comment on above: Order Comment: CLEAN CATCH Performed By: #### L 501.1105, L100.0500, L501.1400, L501.4100, L501.4405, L501.0900 #### [facility] [address] [place], [address] Mucus Ql (Urine sed) 0 SEEN Normal [facility] Comment on above: Order Comment: CLEAN CATCH Performed By: #### L 501.1105, L100.0500, L501.1400, L501.4100, L501.4405, L501.0900 #### [facility] [address] [place], [address] Nitrite Ql (U) Negative Normal Negative [facility] Comment on above: Order Comment: CLEAN CATCH Performed By: #### L 501.1105, L100.0500, L501.1400, L501.4100, L501.4405, L501.0900 #### [facility] [address] [place], [address] OCCULT BLOOD-UR Negative Normal Negative [facility] Comment on above: Order Comment: CLEAN CATCH Performed By: #### L 501.1105, L100.0500, L501.1400, L501.4100, L501.4405, L501.0900 #### [facility] [address] [place], [address] pH UR 6.5 Normal 5.0 - 8.0 [facility] Comment on above: Order Comment: CLEAN CATCH Performed By: #### L 501.1105, L100.0500, L501.1400, L501.4100, L501.4405, L501.0900 #### [facility] [address] [place], [address] PROT DIPSTX 15 mg/dl Abnormal Negative [facility] Comment on above: Order Comment: CLEAN CATCH Performed By: #### L 501.1105, L100.0500, L501.1400, L501.4100, L501.4405, L501.0900 #### [facility] [address] [place], [address] RBC 0 SEEN Normal 0-5 [facility] Comment on above: Order Comment: CLEAN CATCH Performed By: #### L 501.1105, L100.0500, L501.1400, L501.4100, L501.4405, L501.0900 #### [facility] [address] [place], [address] SP.GR. DIPSTX 1.015 Normal 1.002-1.030 [facility] Comment on above: Order Comment: CLEAN CATCH Performed By: #### L 501.1105, L100.0500, L501.1400, L501.4100, L501.4405, L501.0900 #### [facility] [address] [place], [address] UROBILI Normal Normal Normal [facility] Comment on above: Order Comment: CLEAN CATCH Performed By: #### L 501.1105, L100.0500, L501.1400, L501.4100, L501.4405, L501.0900 #### [facility] [address] [place], [address] Urine blood detectionOrdered By: Rizwan Cárdenas on 10-12-2024 Urine Occult Blood Negative Negative [facility] Urine clarityOrdered By: Giancarlo Cárdenas on 10-12-2024 Clarity (U) Sl. Cloudy Clear [facility] Urine color determinationOrd ered By: Rizwan Cárdenas on 10-12-2024 Color (U) Yellow Yellow [facility] Urine cultureOrdered By: Giancarlo Cárdenas on 10-12-2024 Bacteria identified Cx Nom (U) Positive Abnormal [facility] Urine glucose detectionOrder ed By: Rizwan Cárdenas on 10-12-2024 Glucose Ql (U) Normal mg/dl Normal [facility] Urine leukocyte esterase det ection by dipstickOrdered By: Rizwan Cárdenas on 10-12-2024 Leukocyte esterase Test strip Ql (U) 500 /ul High Negative [facility] Urine pHOrdered By: Rizwan rivera on 10-12-2024 pH (U) 6.5 [pH] 5.0 - 8.0 [facility] Urine sediment bacteria coun t by microscopy (number/high power field)Ordered By: Rizwan Cárdenas on 10-12-2024 Bacteria LM.HPF (Urine sed) [#/Area] 2 /[HPF] None Seen [facility] Urine specific gravity measu rementOrdered By: Rizwan Cárdenas on 10-12-2024 Specific gravity (U) [Rel density] 1.015 1.002-1.030 [facility] Urine urobilinogen measureme ntOrdered By: Rizwan Cárdenas on 10-12-2024 Urobilinogen Ql (U) Normal mg/dl Normal [facility] Urobilinogen Ql (U)Ordered B y: Rizwan Cárdenas on 10-12-2024 Urine Urobilinogen Normal mg/dl Normal [facility] White blood cell (WBC) count Ordered By: Rizwan Cárdenas on 10-12-2024 WBC (Bld) [#/Vol] 8.0 10*3/uL 4.4-11.0 [facility] White blood cell countOrdere d By: Rizwan Cárdenas on 10-12-2024 Urine WBC >100 SEEN /hpf 0-5 [facility] White blood cell count >100 SEEN /hpf 0-5 [facility] hCG Titer Quant., Serumon HCG QUANT. 37736 mIU/mL High <9 non-preg [facility] Comment on above: Result Comment: Gest ational Age 0.2-1 Week: 5-50 mIU/mL 1-2 Weeks: 50-500 mIU/mL 2-3 Weeks: 100-5000 mIU/mL 3-4 Weeks: 500-10,000 mIU/mL 4-5 Weeks:1000-50,000 mIU/mL 5-6 Weeks: 10,000-100,000 mIU/mL 6-8 Weeks: 15,000-200,000 mIU/mL 2-3 Months:10,000-100,000 mIU/mL Performed By: #### L 500.2500, B882-1, L501.2450, L500.3400, L700.8000, L100.0100 ####[facility] [address] [place], [address] [facility] 10-08-2024 [facility] Telephone ([id number]) SHILPA HOANG ([id number]) 1995 F Date Time Provider Department 10/08/24 MARGARITA HERNANDEZ [id number] During your visit today, we recorded the [...] Return call to: self Call patient at: [phone] (cell), it is OK to leave message Payor: [facility] MEDICAID / Plan: [facility] MEDICAID / Product Type: Medicaid / Margarita [...] Office/provider patient wishes to establish care to? [place] Patient aware to sign up for My Chart if she does not already have it, so she can receive the certified social workers in health care messages. Will forward this encounter to the schedulers in this office. Carla Mckinney, CHANA 10/13/2024 10:27 AM Signed Patient has appt - closing encounter. Carla Mckinney RN Allergies As of Date: 10/08/2024 Noted Allergy Reaction WALNUT 11/10/2023 10 - Anaphylaxis CORN 11/10/2023 5 - Intolerance SEASONAL ALLERGIES 11/10/2023 3 - Cough Date Reviewed: 09/16/2024 Reviewed by: Hortencia Gould, HIGH SCHOOL COACH.LEGAL ADVISOR - Fully Assessed Reason for Visit: Hose Builder - Other [9308] Cmt: Initial OB RN CC pool Prescriptions [...] Status:Closed by [place] on 10/13/24 Normal [facility] Emergency Department Summary on 10-02-[address] [facility] Medical Records Department [address] [place] [address] Emergency Department Summary 10/02/24 MR#: [id number] Acct: [id number] Name: SHILPA HOANG Rep #: [id number] : 1995 28 From: Kuldeep Vanegas DO PCP: Dr. David Mckinney MD Status:DEP ER Location: ED [facility] History of Present Illness Chief Complaint: Dental PFSH PFS Medical History (Updated 10/02/24 @ 23:[address] Kuldeep Vanegas DO) (spontaneous vaginal delivery) Depression Family history of hearing loss at age younger than 7 years Gestational HTN Stillborn, normal History of placental abruption Trauma depression Anxiety Cervical myofascial strain Home Medications ???Medication ???Instructions ???Recorded ???Last Taken ???Type adgawdgr-mmx-Gx-FA 1 mg 1 tab PO DAILY 09/13/21 [...] 98 98 Oxygen Delivery Method Room Air [facility] Narrative Medical decision making narrative: HISTORY OF [...] significant/life t (more content not included)... 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 Shilpa presents today for IUD insertion for [...] which included preparing to see the patient, [id number] patient care, completing clinical documentation, obtaining and/or [...] contact the office. Referring Provider: SHARDA VALERO [[id number]] Allergies As of Date: 09/16/2024 Noted Allergy Reaction WALNUT 11/10/2023 10 - Anaphylaxis CORN 11/10/2023 5 - Intolerance SEASONAL ALLERGIES 11/10/2023 3 - Cough Date Reviewed: 09/16/2024 Reviewed by: Hortencia Gould APRN.LEGAL ADVISOR - Fully Assessed Reason for Visit: Insertion Of IUD [291] Primary Visit Diagnosis:Encounter for IUD insertion [Z30.430] Order(s):UA DIP,URINE HCG (POC) [4774902] Order #: [id number]. #[id number] Prescriptions as of 09/16/2024 - albuterol [...] Status:Closed by HORTENCIA GOULD on 09/16/24 Normal [facility] UA DIP,URINE HCG (POC)on Beta HCG ( test) Ql (U) Negative Negative [facility] Comment on above: Location:[facility], [address] [place] [address], [facility] [address] Edi Architect (POCT) Internal QC OK [facility] Location:[facility], [address] [place] [address], [place], [address] [facility] POINT OF CARE [facility] CNCOon 08-12-2024 CNCO Letter Text Normal [facility] PAP TESTon 07-29-2024 ADEQUACY Normal [facility] Comment on above: Order Comment: Speci men Type: BLOOD SPECIMEN Ordering Facility: [facility] Address: [address] [place] [address] Result Comment: Sati sfactory for interpretation. Obscuring inflammation Performed By: #### 5 195-3, 83397-1, 70055-2 #### [facility] CLIA [id number] [address] [place], [place] [address] [address] [place] CASE REPORT Normal [facility] Comment on above: Order Comment: Speci men Type: BLOOD SPECIMEN Ordering Facility: [facility] Address: [address] [place] [address] Result Comment: Gyne cologic Cytology Report Case: [id number] Authorizing Provider: Sharda Valero APRN.LEGAL ADVISOR Collected: 07/29/2024 01:48 PM Ordering Location: OB/Gynecology Received: 07/29/2024 04:10 PM First Screen: Aramouni, Ailyn, CT, ASCP Specimen: Pap Test, ThinPrep, Cervix Performed By: #### 5 195-3, 08310-2, 85710-7 #### [facility] CLIA [id number] [address] [place] [address] [place] CLINICAL HISTORY, CYTOLOGY, LEGAL EXECUTIVE ASSISTANT Normal [facility] Comment on above: Order Comment: Speci men Type: BLOOD SPECIMEN Ordering Facility: [facility] Address: [address] [place] [address] Result Comment: Post (Indicate Weeks) No Menses, Other (Specify) Performed By: #### 5 195-3, 38581-5, 22039-9 #### [facility] CLIA [id number] [address] [place] [address] [place] CYTOLOGY PAP OTHER INTERPRETATION Trichomonas vaginalis. Normal [facility] Comment on above: Order Comment: Speci men Type: BLOOD SPECIMEN Ordering Facility: [facility] Address: [address] [place] [address] Performed By: #### 5 195-3, 48492-9, 29751-5 #### [facility] CLIA [id number] [address] [place] [address] [place] FINAL PERFORMING LAB Normal [facility] Comment on above: Order Comment: Speci men Type: BLOOD SPECIMEN Ordering Facility: [facility] Address: [address] [place] [address] Result Comment: Tech nical component, university services program associate screening performed at [facility], [address] [place] [address] CLIA# [id number] Diagnostic interpretation performed at [facility], [address] [place] [address] CLIA# [id number] Embedded Software Developer: Cordell Shields M.D. Performed By: #### 5 195-3, 28048-2, 91369-6 #### [facility] CLIA [id number] [address] [place] [address] [place] INTERPRETATION, CYTOLOGY, LEGAL EXECUTIVE ASSISTANT Normal [facility] Comment on above: Order Comment: Speci men Type: BLOOD SPECIMEN Ordering Facility: [facility] Address: [address] [place] [address] Result Comment: Nega tive for intraepithelial lesion or malignancy. at 1633 EST Performed By: #### 5 195-3, 74587-4, 39914-2 #### [facility] CLIA [id number] [address] [place], [place] [address] [place] PAP DISCLAIMER COMMENT The Pap Smear is a screening test for cervical cancer. False negative results occur with all screening tests, emphasizing the need for rescreening at recommended intervals, and clinical correlation. Normal [facility] Comment on above: Order Comment: Speci men Type: BLOOD SPECIMEN Ordering Facility: [facility] Address: [address] [place] [address] Performed By: #### 5 195-3, 10564-6, 40577-0 #### [facility] CLIA [id number] [address] [place], [place] [address] [place] MR/OB.VAGDELIon 06-18-2024 MR/OB.VAGDELI [facility] Medical Records Department [address] [place] [address] OB VAGINAL DELIVERY 06/18/24 1315 MR#: [id number] Acct: [id number] Name: SHILPA HOANG Rep #: [id number] : 1995 28 From: Margarita Alcala MD PCP: Dr. David Mckinney MD Status:ADM IN Location: [id number] Assessment Plan (1) Gestational hypertension: QUALIFIERS: Trimester: [...] followed the remainder of the body. The cried upon delivery and was placed on [...] 1, loose Nuchal Cord Compression: Without compression A Gender: Male (1 minute): 8 (5 minute): 9 Delayed Cord Clamping: Yes Liaison Planner mental retardation aide: No Post Vaginal Deli Medications given after delivery: IV Pitocin Episiotomy Description: None Laceration: None Complication Complications: No 06/18/241801 Cosigner Signature (if applicable): CC: RUBINA Turner; Dr. David Mckinney MD; Dr. Margarita Alcala MD Signed Normal [facility] Urine Drug Screen (VISTA)on 06-18-2024 AMPHETAMINES Normal <1000 ng/mL [facility] Comment on above: Result Comment: Brad rangel via OM: Ordered Performed By: #### L 505.5000 ####[facility] [address] [place], [place], [address] BARBITIURATES Normal < 200 ng/mL [facility] Comment on above: Result Comment: Canc elled via OM: MD Ordered Performed By: #### L 505.5000 ####[facility] [address] [place], [address] BENZODIAZIPINE Normal < 200 ng/mL [facility] Comment on above: Result Comment: Canc elled via OM: MD Ordered Performed By: #### L 505.5000 ####[facility] [address] [place], [address] COCAINE Normal < 300 ng/mL [facility] Comment on above: Result Comment: Canc elled via OM: MD Ordered Performed By: #### L 505.5000 ####[facility] [address] [place], [address] DRUG CONFIRM Normal [facility] Comment on above: Result Comment: Canc elled via OM: MD Ordered Performed By: #### L 505.5000 ####[facility] [address] [place], [address] ECSTACY Normal < 500 ng/mL [facility] Comment on above: Result Comment: Canc elled via OM: MD Ordered Performed By: #### L 505.5000 ####[facility] [address] [place], [address] METHADONE Normal < 300 ng/mL [facility] Comment on above: Result Comment: Canc elled via OM: MD Ordered Performed By: #### L 505.5000 ####[facility] [address] [place], [address] OPIATES Normal < 300 ng/mL [facility] Comment on above: Result Comment: Canc elled via OM: MD Ordered Performed By: #### L 505.5000 ####[facility] [address] [place], [address] PCP Normal < 25 ng/mL [facility] Comment on above: Result Comment: Canc elled via OM: MD Ordered Performed By: #### L 505.5000 ####[facility] [address] [place], [address] THC Normal < 50 ng/mL [facility] Comment on above: Result Comment: Canc elled via OM: MD Ordered Performed By: #### L 505.5000 ####[facility] [address] [place], [address] VISTA UDS PH Normal [facility] Comment on above: Result Comment: Canc elled via OM: MD Ordered Performed By: #### L 505.5000 ####[facility] [address] [place], [address] AST(SGOT)on 06-17-2024 AST [Catalytic activity/Vol] 13 U/L Low 15-37 [facility] Comment on above: Performed By: #### L 501.1105, L100.0500, L501.1400, L501.4100, L501.4405, L501.0900 #### [facility] [address] [place], [address] Alanine Aminotransferas (SGP T)on 06-17-2024 ALT [Catalytic activity/Vol] 15 U/L Normal 13-56 [facility] Comment on above: Performed By: #### L 501.1105, L100.0500, L501.1400, L501.4100, L501.4405, L501.0900 #### [facility] [address] [place], [address] CBC-Complete Blood Cnt No Di ffon 06-17-2024 Erythrocyte distribution width (RBC) [Ratio] 17.0 % High 11.6-14.6 [facility] Comment on above: Performed By: #### L 501.1105, L100.0500, L501.1400, L501.4100, L501.4405, L501.0900 #### [facility] [address] [place], [address] Hematocrit (Bld) [Volume fraction] 27.7 % Low 37-47 [facility] Comment on above: Performed By: #### L 501.1105, L100.0500, L501.1400, L501.4100, L501.4405, L501.0900 #### [facility] [address] [place], [address] Hemoglobin (Bld) [Mass/Vol] 8.6 g/dL Low 12.0-15.0 [facility] Comment on above: Performed By: #### L 501.1105, L100.0500, L501.1400, L501.4100, L501.4405, L501.0900 #### [facility] [address] [place], [address] MCH (RBC) [Entitic mass] 24.8 pg Low 27.0-32.0 [facility] Comment on above: Performed By: #### L 501.1105, L100.0500, L501.1400, L501.4100, L501.4405, L501.0900 #### [facility] [address] [place], [address] MCHC (RBC) [Mass/Vol] 31.0 g/dL Low 32-36 [facility] Comment on above: Performed By: #### L 501.1105, L100.0500, L501.1400, L501.4100, L501.4405, L501.0900 #### [facility] [address] [place], [address] MCV (RBC) [Entitic vol] 79.8 fL Low 81-99 [facility] Comment on above: Performed By: #### L 501.1105, L100.0500, L501.1400, L501.4100, L501.4405, L501.0900 #### [facility] [address] [place], [address] Platelet mean volume (Bld) [Entitic vol] 12.5 fL High 6.2-12.0 [facility] Comment on above: Performed By: #### L 501.1105, L100.0500, L501.1400, L501.4100, L501.4405, L501.0900 #### [facility] [address] [place], [address] Platelets (Bld) [#/Vol] 143 10*3/uL Low 150-450 [facility] Comment on above: Performed By: #### L 501.1105, L100.0500, L501.1400, L501.4100, L501.4405, L501.0900 #### [facility] [address] [place], [address] RBC (Bld) [#/Vol] 3.47 10*6/uL Low 4.2-5.4 [facility] Comment on above: Performed By: #### L 501.1105, L100.0500, L501.1400, L501.4100, L501.4405, L501.0900 #### [facility] [address] [place] [place], [address] RDW SD 48.8 fl High 35.1-43.9 [facility] Comment on above: Performed By: #### L 501.1105, L100.0500, L501.1400, L501.4100, L501.4405, L501.0900 #### [facility] [address] [place], [address] WBC (Bld) [#/Vol] 10.8 10*3/uL Normal 4.4-11.0 [facility] Comment on above: Performed By: #### L 501.1105, L100.0500, L501.1400, L501.4100, L501.4405, L501.0900 #### [facility] [address] [place], [address] Erythrocyte distribution wid th (RBC) [Ratio]Ordered By: Johana Turner on 06-17-2024 Erythrocyte distribution width (RBC) [Entitic vol] 48.8 fL High 35.1-43.9 [facility] Erythrocyte distribution wid th ratioOrdered By: Johana Turner on 06-17-2024 Erythrocyte distribution width (RBC) [Ratio] 17.0 % High 11.6-14.6 [facility] Estimated glomerular filtrat ion rate (GFR) AmericanOrdered By: Johana Turner on 06-17-2024 Estimated GFR (MDRD) Amer 198 mL/min >60 [facility] Comment on above: GFR Calc Estimation of creatinine morgan aranceOrdered By: Johana Turner on 06-17-2024 Estimated Creatinine Clearance Calc 191.32 ml/min [facility] Glomerular filtration rate ( GFR) estimationOrdered By: Johana Turner on 06-17-2024 Estimated GFR (MDRD) Non-Af Amer 164 mL/min >60 [facility] Comment on above: Non- GFR Calc H AND P Exam - OB/GYNon 05-24 H&P Exam - INDUSTRIAL COOK [facility] Medical Records Department [address] [place] [address] H P Exam - INDUSTRIAL COOK 06/17/24 1705 MR#: [id number] Acct: [id number] Name: SHILPA HOANGN Rep #: [id number] : 1995 28 From: Johana Turner CNM PCP: Dr. David Mckinney MD Status:ADM IN Location: [id number] HPI - General General Date of Admission: [...] Medications ???Medication ???Instructions ???Recorded ???Last Taken ???Type jtuthmlo-tjh-Ki-FA 1 mg 1 tab PO DAILY 09/13/21 [...] 02/09/17 Piper 41 live - full term [id number] Female 18 epidural WC [place] 11/13/18 Radha 39 live [...] Pressure BP (more content not included)... Normal [facility] Hematocrit Auto (Bld) [Volum e fraction]Ordered By: Johana Turner on 06-17-2024 Hematocrit (Bld) [Volume fraction] 27.7 % Low 37-47 [facility] Hemoglobin measurementOrdere d By: Johana Turner on 06-17-2024 Hemoglobin (Bld) [Mass/Vol] 8.6 g/dL Low 12.0-15.0 [facility] L509.8000on 06-17-2024 Syphilis Abs Non-Reactive Normal [facility] Comment on above: Performed By: #### L 509.8000 ####[facility] [address] [place], [address] Laboratory - Chemistry and C hemistry - challengeOrdered By: Johana Turner on 06-17-2024 AST [Catalytic activity/Vol] 13 U/L Low 15-37 [facility] MCV (mean corpuscular volume ) determinationOrdered By: Johana Turner on 06-17-2024 MCV (RBC) [Entitic vol] 79.8 fL Low 81-99 [facility] Mean corpuscular hemoglobin (MCH) determinationOrdered By: Johana Turner on 06-17-2024 MCH (RBC) [Entitic mass] 24.8 pg Low 27.0-32.0 [facility] Mean corpuscular hemoglobin concentration (MCHC) determinationOrdered By: Johana Turner on 06-17-2024 MCHC (RBC) [Mass/Vol] 31.0 g/dL Low 32-36 [facility] Mean platelet volume determi nationOrdered By: Johana Turner on 06-17-2024 Platelet mean volume (Bld) [Entitic vol] 12.5 fL High 6.2-12.0 [facility] Methadone, urineOrdered By: Johana Turner on 06-17-2024 Urine Methadone Screen Negative < 300 ng/mL [facility] No Panel InformationOrdered By: Johana Turner on 06-17-2024 Urine Drug Screen Comment [facility] Comment on above: CONFIRMATORY TESTING FOR [...] Platelets (Bld) [#/Vol] 143 10*3/uL Low 150-450 [facility] Protein+Creatinine Ratio,Uri neon 06-17-2024 PROT:CRE RATIO 218 mg/g CRE High 0-200 [facility] Comment on above: Performed By: #### L 501.1105, L100.0500, L501.1400, L501.4100, L501.4405, L501.0900 #### [facility] [address] [place], [address] Protein (U) [Mass/Vol] 30.5 mg/dL High <11.9 [facility] Comment on above: Performed By: #### L 501.1105, L100.0500, L501.1400, L501.4100, L501.4405, L501.0900 #### [facility] [address] [place], [address] UR CREAT 140.00 mg/dL Normal NO RANGE EST. [facility] Comment on above: Performed By: #### L 501.1105, L100.0500, L501.1400, L501.4100, L501.4405, L501.0900 #### [facility] [address] [place], [address] Protein/Creatinine (U) [Mass ratio]Ordered By: Johana Turner on 06-17-2024 Urine Protein/Creatinine Ratio 218 mg/g CRE High 0-200 [facility] Quantitative urine opiates m easurementOrdered By: Johana Turner on 06-17-2024 Opiates Ql (U) Negative < 300 ng/mL [facility] RBC Auto (Bld) [#/Vol]Ordere d By: Johana Turner on 06-17-2024 RBC (Bld) [#/Vol] 3.47 10*6/uL Low 4.2-5.4 [facility] Random urine protein measure mentOrdered By: Johana Turner on 06-17-2024 Protein (U) [Mass/Vol] 30.5 mg/dL High 0.0-11.8 [facility] Serum Creatinine AND GFRon 1 08-18-2023 Creatinine [Mass/Vol] 0.48 mg/dL Low 0.55-1.02 [facility] Comment on above: Result Comment: The validity of the calculated GFR GFRAA in patients over 70 years has not been determined. Clinical correlation is essential. Performed By: #### L 501.1105, L100.0500, L501.1400, L501.4100, L501.4405, L501.0900 #### [facility] [address] [place], [address] ECRCL 191.32 ml/min Normal [facility] Comment on above: Performed By: #### L 501.1105, L100.0500, L501.1400, L501.4100, L501.4405, L501.0900 #### [facility] [address] [place], [address] EST GFR - AA 198 mL/min Normal >60 [facility] Comment on above: Result Comment: Afri can Syrian GFR Calc Performed By: #### L 501.1105, L100.0500, L501.1400, L501.4100, L501.4405, L501.0900 #### [facility] [address] [place], [address] GFR/1.73 sq M.predicted among non-blacks MDRD (S/P/Bld) [Vol rate/Area] 164 mL/min/{1.73_m2} Normal >60 [facility] Comment on above: Result Comment: Non- GFR Calc Performed By: #### L 501.1105, L100.0500, L501.1400, L501.4100, L501.4405, L501.0900 #### [facility] [address] [place], [address] Serum or plasma alanine rivero otransferase (ALT) measurementOrdered By: Johana Turner on 06-17-2024 ALT [Catalytic activity/Vol] 15 U/L [facility] Serum or plasma creatinine m easurement (mass/volume)Ordered By: Johana Turner on 06-17-2024 Creatinine [Mass/Vol] 0.48 mg/dL Low 0.55-1.02 [facility] Comment on above: The validity of the calculated GFR & GFRAA in patients over 70 years has not been determined. Clinical correlation is essential. Serum or plasma uric acid me asurement (mass/volume)Ordered By: Johana Turner on 06-17-2024 Urate [Mass/Vol] 4.2 mg/dL 2.6-6.0 [facility] Comment on above: The drugs N-Acetylcy steine and Metamizole may falsely depress this assay. Treponema sp Ab Ql (S)Ordere d By: Soy Cassidy on 06-17-2024 Syphilis Total Antibody Non-Reactive [facility] Type AND Screenon 06-17-2024 ABO and Rh group Nom (Bld) Blood group A Rh(D) positive Normal [facility] Comment on above: Order Comment: Labor Performed By: #### L 501.1105, L100.0500, L501.1400, L501.4100, L501.4405, L501.0900 #### [facility] [address] [place], [address] URINE OB DIP B/Oon Glucose Ql (U) Negative Neg mg/dL [facility] Protein.monoclonal (U) [Mass/Vol] Negative Neg mg/dL [facility] Uric Acidon 06-17-2024 URIC 4.2 mg/dL Normal 2.6-6.0 [facility] Comment on above: Result Comment: The drugs N-Acetylcysteine and Metamizole may falsely depress this assay. Performed By: #### L 501.1105, L100.0500, L501.1400, L501.4100, L501.4405, L501.0900 #### [facility] [address] [place], [address] Urine Drug Screen (VISTA)on 06-17-2024 AMPHETAMINES Negative Normal <1000 ng/mL [facility] Comment on above: Order Comment: amphe tamines Performed By: #### L 501.1105, L100.0500, L501.1400, L501.4100, L501.4405, L501.0900 #### [facility] [address] [place], [address] BARBITIURATES Negative Normal < 200 ng/mL [facility] Comment on above: Order Comment: amphe tamines Performed By: #### L 501.1105, L100.0500, L501.1400, L501.4100, L501.4405, L501.0900 #### [facility] [address] [place], [place], [facility] BENZODIAZIPINE Negative Normal < 200 ng/mL [facility] Comment on above: Order Comment: amphe tamines Performed By: #### L 501.1105, L100.0500, L501.1400, L501.4100, L501.4405, L501.0900 #### [facility] [address] [place], [place], [facility] COCAINE Negative Normal < 300 ng/mL [facility] Comment on above: Order Comment: amphe tamines Performed By: #### L 501.1105, L100.0500, L501.1400, L501.4100, L501.4405, L501.0900 #### [facility] [address] [place], [address] ECSTACY Negative Normal < 500 ng/mL [facility] Comment on above: Order Comment: amphe tamines Performed By: #### L 501.1105, L100.0500, L501.1400, L501.4100, L501.4405, L501.0900 #### [facility] [address] [place], [address] METHADONE Negative Normal < 300 ng/mL [facility] Comment on above: Order Comment: amphe tamines Performed By: #### L 501.1105, L100.0500, L501.1400, L501.4100, L501.4405, L501.0900 #### [facility] [address] [place], [address] OPIATES Negative Normal < 300 ng/mL [facility] Comment on above: Order Comment: amphe tamines Performed By: #### L 501.1105, L100.0500, L501.1400, L501.4100, L501.4405, L501.0900 #### [facility] [address] [place], [address] PCP Negative Normal < 25 ng/mL [facility] Comment on above: Order Comment: amphe tamines Performed By: #### L 501.1105, L100.0500, L501.1400, L501.4100, L501.4405, L501.0900 #### [facility] [address] [place], [address] THC Negative Normal < 50 ng/mL [facility] Comment on above: Order Comment: amphe tamines Performed By: #### L 501.1105, L100.0500, L501.1400, L501.4100, L501.4405, L501.0900 #### [facility] [address] [place], [address] VISTA UDS PH 5 Normal [facility] Comment on above: Order Comment: amphe tamines Performed By: #### L 501.1105, L100.0500, L501.1400, L501.4100, L501.4405, L501.0900 #### [facility] [address] [place], [address] Urine amphetamine measuremen tOrdered By: Johana Turner on 06-17-2024 Amphetamines Ql (U) Negative <1000 ng/mL [facility] Urine barbiturates measureme ntOrdered By: Johana Turner on 06-17-2024 Urine Barbiturates Screen Negative < 200 ng/mL [facility] Urine benzodiazepine levelOr dered By: Johana Turner on 06-17-2024 Benzodiazepines Ql (U) Negative < 200 ng/mL [facility] Urine cocaine levelOrdered B y: Johana Turner on 06-17-2024 Cocaine Ql (U) Negative < 300 ng/mL [facility] Urine creatinine measurement (mass/volume)Ordered By: Johana Turner on 06-17-2024 Creatinine (U) [Mass/Vol] 140.00 mg/dL NO RANGE EST. [facility] Urine cyvbh-2-lwszkillitnjqi abinol (THC) measurementOrdered By: Johana Turner on 06-17-2024 Cannabinoids Screen Ql (U) Negative < 50 ng/mL [facility] Urine methylenedioxymethamph etamine (MDMA) measurementOrdered By: Johana Turner on 06-17-2024 MDMA (Ecstasy) Screen Negative < 500 ng/mL [facility] Urine phencyclidine (PCP) de tectionOrdered By: Johana Turner on 06-17-2024 Phencyclidine Ql (U) Negative < 25 ng/mL [facility] White blood cell (WBC) count Ordered By: Johana Turner on 06-17-2024 WBC (Bld) [#/Vol] 10.8 10*3/uL 4.4-11.0 [facility] CNPNon 06-14-2024 CNPN Telephone (OBGYWM) SHILPA HOANG ([id number]) 1995 F Date Time Provider Department 06/14/24 SARAH HUBER During your visit today, we recorded the following information about you: Jennifer Roldan 06/14/2024 10:30 AM Signed [facility] is requesting HANDP to be faxed to [phone]. Margarita Hearn RN 06/14/2024 11:06 AM Signed Faxed via [employer]. Margarita Hearn RN Allergies As of Date: [...] Status:Closed by MARGARITA HEARN on 06/14/24 Normal [facility] Examination level ultrasound on 06-12-2024 [facility] Examination level ultrasound on 06-11-2024 Radiology Study observation (narrative) [facility] ROUTINE, GROUP B ST REP PCRon 06-11-2024 ROUTINE, GROUP B STREP PCR GROUP B STREP PCR: Positive for Group B Streptococcus by PCR. Abnormal [facility] Comment on above: Performed By: #### 5 195-3, 96354-3, 64843-8 #### [facility] CLIA [id number] [address] [place] [address] [place] URINE OB DIP B/Oon Glucose Ql (U) Negative Neg mg/dL [facility] Protein.monoclonal (U) [Mass/Vol] trace Neg mg/dL [facility] FERRITINon 06-05-2024 Ferritin [Mass/Vol] 11.4 ng/mL Low 14.7 - 2 05.1 ng/mL [facility] Ferritin [Mass/Vol]on 2023 Interpretation and review of laboratory results Abnormal [facility] Iron and Iron binding capaci ty panelon 06-05-2024 Interpretation and review of laboratory results Abnormal [facility] Iron [Mass/Vol] 25 ug/dL Low 41 - 186 ug/dL [facility] Iron binding capacity [Mass/Vol] 490 ug/dL High 232 - 386 ug/dL [facility] Iron/TIBC [Molar ratio] 5.1 % Low 15.0 - 57.0 % [facility] Ferritin SerPl-mCncon 2023 Ferritin [Mass/Vol] 11.4 ng/mL Low 14.7-205.1 [facility] Comment on above: Order Comment: Speci men Type: BLOOD SPECIMENOrdering Facility: [facility] Address: [address] [place] [address] Performed By: #### 2 276-4, 11533-1 ####[facility] [id number] [address] [place] Iron and Iron binding capaci ty panelon 06-04-2024 Iron [Mass/Vol] 25 ug/dL Low 41-186 [facility] Comment on above: Order Comment: Speci men Type: BLOOD SPECIMENOrdering Facility: [facility] Address: [address] [place] [address] Performed By: #### 2 276-4, 16444-8 ####[facility]CLIA [id number] [place] [address] [place] Iron binding capacity [Mass/Vol] 490 ug/dL High 232-386 [facility] Comment on above: Order Comment: Speci men Type: BLOOD SPECIMENOrdering Facility: [facility] Address: [address] [place] [address] Performed By: #### 2 276-4, 15841-8 ####[facility]CLIA [id number] [place] [address] [place] Iron/TIBC [Molar ratio] 5.1 % Low 15.0-57.0 [facility] Comment on above: Order Comment: Speci men Type: BLOOD SPECIMENOrdering Facility: [facility] Address: [address] [place] [address] Performed By: #### 2 276-4, 88296-2 ####[facility]IA [id number] [place] [address] [place] CBC panel Auto (Bld)on 06-03 Erythrocyte distribution width (RBC) [Ratio] 16.8 % High 11.5 - 15.0 % [facility] Hematocrit (Bld) [Volume fraction] 27.9 % Low 36.0 - 46.0 % [facility] Hemoglobin (Bld) [Mass/Vol] 8.8 g/dL Low 11.5 - 15.5 g/dL [facility] Interpretation and review of laboratory results Abnormal [facility] MCH (RBC) [Entitic mass] 26.0 pg 26.0 - 34.0 pg [facility] MCHC (RBC) [Mass/Vol] 31.5 g/dL 30.5 - 36.0 g/dL [facility] MCV (RBC) [Entitic vol] 82.3 fL 80.0 - 100.0 fL [facility] Nucleated RBC (Bld) [#/Vol] NINF [facility] Platelet mean volume (Bld) [Entitic vol] 12.5 fL 9.0 - 12.7 fL [facility] Platelets (Bld) [#/Vol] 123 10*3/uL Low [facility] Comment on above: No clot detected. RBC (Bld) [#/Vol] 3.39 10*6/uL Low 3.90 - 5.2 0 m/uL [facility] WBC (Bld) [#/Vol] 9.56 10*3/uL [facility] Erythrocyte distribution width (RBC) [Ratio] 16.8 % High 11.5-15.0 [facility] Comment on above: Order Comment: Speci men Type: BLOOD SPECIMEN Ordering Facility: [facility] Address: [address] [place] [address] Performed By: #### 5 195-3, 25648-2, 31464-0 #### [facility] CLIA [id number] [address] [place] [address] [place] [facility] Hematocrit (Bld) [Volume fraction] 27.9 % Low 36.0-46.0 [facility] Comment on above: Order Comment: Gingeri men Type: BLOOD SPECIMEN Ordering Facility: [facility] Address: [address] [place] [address] Performed By: #### 5 195-3, 15728-6, 09325-9 #### [facility] CLIA [id number] [address] [place] [address] [place] Hemoglobin (Bld) [Mass/Vol] 8.8 g/dL Low 11.5-15.5 [facility] Comment on above: Order Comment: Speci men Type: BLOOD SPECIMEN Ordering Facility: [facility] Address: [address] [place] [address] Performed By: #### 5 195-3, 51917-5, 24438-2 #### [facility] CLIA [id number] [address] [place] [address] [place] MCH (RBC) [Entitic mass] 26.0 pg Normal 26.0-34.0 [facility] Comment on above: Order Comment: Speci men Type: BLOOD SPECIMEN Ordering Facility: [facility] Address: [address] [place] [address] Performed By: #### 5 195-3, 13024-7, 32719-9 #### [facility] CLIA [id number] [address] [place] [address] [place] MCHC (RBC) [Mass/Vol] 31.5 g/dL Normal 30.5-36.0 [facility] Comment on above: Order Comment: Speci men Type: BLOOD SPECIMEN Ordering Facility: [facility] Address: [address] [place] [address] Performed By: #### 5 195-3, 42176-5, 93211-3 #### [facility] CLIA [id number] [address] [place] [address] [place] MCV (RBC) [Entitic vol] 82.3 fL Normal 80.0-100.0 [facility] Comment on above: Order Comment: Speci men Type: BLOOD SPECIMEN Ordering Facility: [facility] Address: [address] [place] [address] Performed By: #### 5 195-3, 51026-0, 96640-1 #### [facility] CLIA [id number] [address] [place] [address] [place] Nucleated RBC (Bld) [#/Vol] 10*3/uL Normal <0.01 [facility] Comment on above: Order Comment: Speci men Type: BLOOD SPECIMEN Ordering Facility: [facility] Address: [address] [place] [address] Performed By: #### 5 195-3, 71065-7, 21847-4 #### [facility] CLIA [id number] [address] [place] [address] [place] Platelet mean volume (Bld) [Entitic vol] 12.5 fL Normal 9.0-12.7 [facility] Comment on above: Order Comment: Speci men Type: BLOOD SPECIMEN Ordering Facility: [facility] Address: [address] [place] [address] Performed By: #### 5 195-3, 26406-7, 94689-7 #### [facility] CLIA [id number] [address] [place] [address] [place] Platelets (Bld) [#/Vol] 123 10*3/uL Low 150-400 [facility] Comment on above: Order Comment: Speci men Type: BLOOD SPECIMEN Ordering Facility: [facility] Address: [address] [place] [address] Result Comment: No c lot detected. Performed By: #### 5 195-3, 79862-6, 50859-2 #### [facility] CLIA [id number] [address] [place] [address] [place] RBC (Bld) [#/Vol] 3.39 10*6/uL Low 3.90-5.20 [facility] Comment on above: Order Comment: Speci men Type: BLOOD SPECIMEN Ordering Facility: [facility] Address: [address] [place] [address] Performed By: #### 5 195-3, 48513-8, 82037-1 #### [facility] CLIA [id number] [address] [place] [address] [place] WBC (Bld) [#/Vol] 9.56 10*3/uL Normal 3.70-11.00 [facility] Comment on above: Order Comment: Speci men Type: BLOOD SPECIMEN Ordering Facility: [facility] Address: [address] [place] [address] Performed By: #### 5 195-3, 80189-9, 16620-4 #### [facility] CLIA [id number] [address] [place] [address] [facility] Tay 06-03-2024 KAITLYNNN Telephone (OBGYWM) NATALYASHILPA ([id number]) 1995 F Date Time Provider Department 06/03/24 HALLE ORELLANA OBGYWM During your visit today, we recorded the following information about you: Halle Orellana APRN.CNP 06/03/2024 3:08 PM Signed Hemoglobin 8.8. Blood management referral placed. Please assist in arranging. Halle Orellana APRN.Margarita Quintanilla RN 06/03/2024 3:16 PM Signed Patient will [...] Date Reviewed: 06/03/2024 Reviewed by: Halle Orellana APRN.CNP - Fully Assessed Reason for Visit: Results [95] Primary Visit Diagnosis:Anemia complicating , third trimester [O99.013] Other Visit Diagnosis:Antepartum anemia complicating in third trimester [O99.013] Order(s):BLOOD MANAGEMENT REFERRAL [[id number]] Order #: [id number]: 1 FERRITIN [SQFERR] Order #: [id number] FUTURE IRON AND TIBC [SQIRON] Order #: [id number] FUTURE Prescriptions as of 06/07/2024 - FLUoxetine [...] Status:Closed by KHUSHBOO ABRAHAM on 06/07/24 Normal [facility] URINE OB DIP B/OOrdered By: Alicia Holliday on 06-03-2024 Glucose Ql (U) Negative Neg mg/dL [facility] Interpretation and review of laboratory results Normal [facility] Protein.monoclonal (U) [Mass/Vol] Negative Neg mg/dL [facility] OB Triage Physician Noteon 1 07-29-2023 OB Triage Physician Note [facility] Medical Records Department [address] [place] [address] OB Triage Physician Note 05/28/24 1239 MR#: [id number] Acct: [id number] Name: SHILPA HOANG Rep #: [id number] : 1995 28 From: Jeanette Patel MD PCP: Dr. David Mckinney MD Status:DEP CLI Y Location: [facility] HPI - General General Date of Service: 05/20/24 HPI Narrative SHILPA HOANG, is a 28 F who presents with decreased FM. Maternal Data Information JANE Calculator Estimated Delivery Date Method Current WG Current Estimate 07/04/24 Manual 34w 5d Final JANE: 07/04/24 PFSH PFSH Medical History History of placental abruption Trauma depression Anxiety Cervical myofascial strain (spontaneous vaginal delivery) Home Medications ???Medication ???Instructions ???Recorded ???Last Taken ???Type yijdrxzf-bvf-Rf-FA 1 mg 1 tab PO DAILY 09/13/21 [...] 02/09/17 Piper 41 live - full term [id number] Female 18 epidural [facility] [place] 11/13/18 Radha 39 live - full term [id number] Female 13 epidural [facility] [place] NST FHR Rate Baby A Baseline: 125 Variability:: Moderate Accelerations:: 15 x 15 Decelerations:: None NST Reactive:: Yes Uterine Activity:: quiet Assessment Plan (1) Decreased movement: QUALIFIERS: Fetus number: single or unspecified fetus Trimester: third trimester Qualified Code(s): O36.8130 - Decreased movements, third trimester, not applicable or unspecified PLAN: reactive NST 05/28/24 1241 Date Jeanette Patel MD Cosigner Signature (if applicable): Date CC: Dr. David Mckinney MD; Dr. Jeanette Patel MD Signed Normal [facility] URINE OB DIP B/Oon Glucose Ql (U) Negative Neg mg/dL [facility] Interpretation and review of laboratory results Normal [facility] Protein.monoclonal (U) [Mass/Vol] Negative Neg mg/dL [facility] Examination level ultrasound on 05-12-2024 [facility] Radiology Study observation (narrative) [facility] CNPNon 04-29-2024 CNPN Telephone (OBGYWM) SHILPA HOANG ([id number]) 1995 F Date Time Provider Department 04/29/24 MARGARITA ALCALA During your visit today, we recorded the following information about you: Nicci Mckeon RN 04/29/2024 9:36 AM Signed Margarita Alcala MD P Wstr [employer] Professor Pool This patient is also suppose to [...] Encounter Status:Closed by NICCI MCKEON on 04/29/24 [facility] 04-22-2024 CNPN Telephone (OBGYWM) SHILPA HOANG ([id number]) 1995 F Date Time Provider Department 04/22/24 JOHANA TURNER OBERIKAWNilda During your visit today, we recorded the following information about you: Margarita Hearn, CHANA 04/22/2024 12:49 PM Signed .29w4d Patient called [...] be added. Thank you. CHANA Gonzalez Courtney, APRN.RUBINA 04/22/2024 3:08 PM Signed If patient is not having any current pain or cramping, and feeling positive movement, I am fine for her to monitor at home. She can be seen tomorrow in office if needed. 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 DENNISW ERICK OGFVWE During your visit today, we recorded [...] Status:Closed by CARLA MCKINNEY on 04/19/24 Normal [facility] Examination level ultrasound on 04-14-2024 [facility] Radiology Study observation (narrative) Luizan [facility] CBC W Auto Differential pane l (Bld)on 04-13-2024 Basophils (Bld) [#/Vol] 0.04 10*3/uL Normal <0.11 [facility] Comment on above: Order Comment: Speci men Type: BLOOD SPECIMEN [facility]ing Facility: [facility] Address: [address] [place] [address] Performed By: #### 5 7021-8 #### [facility] CLIA [id number] [address] [place] [address] [place] Basophils/100 WBC (Bld) 0.4 % Normal [facility] Comment on above: Order Comment: Speci men Type: BLOOD SPECIMEN Ordering Facility: [facility] Address: [address] [place] [address] Performed By: #### 5 7021-8 #### [facility] CLIA [id number] [address] [place] [address] [place] Differential cell count method Nom (Bld) Auto Normal [facility] Comment on above: Order Comment: Speci men Type: BLOOD SPECIMEN Ordering Facility: [facility] Address: [address] [place] [address] Performed By: #### 5 7021-8 #### [facility] CLIA [id number] [address] [place] [address] [place] Eosinophils (Bld) [#/Vol] 0.21 10*3/uL Normal <0.46 [facility] Comment on above: Order Comment: Speci men Type: BLOOD SPECIMEN Ordering Facility: [facility] Address: [address] [place] [address] Performed By: #### 5 7021-8 #### [facility] CLIA [id number] [address] [place] [address] [place] Eosinophils/100 WBC (Bld) 2.3 % Normal [facility] Comment on above: Order Comment: Speci men Type: BLOOD SPECIMEN Ordering Facility: [facility] Address: [address] [place] [address] Performed By: #### 5 7021-8 #### [facility] CLIA [id number] [address] [place] [address] [place] Erythrocyte distribution width (RBC) [Ratio] 13.7 % Normal 11.5-15.0 [facility] Comment on above: Order Comment: Speci men Type: BLOOD SPECIMEN Ordering Facility: [facility] Address: [address] [place] [address] Performed By: #### 5 7021-8 #### [facility] CLIA [id number] [address] [place] [address] [place] Hematocrit (Bld) [Volume fraction] 32.2 % Low 36.0-46.0 [facility] Comment on above: Order Comment: Speci men Type: BLOOD SPECIMEN Ordering Facility: [facility] Address: [address] [place] [address] Performed By: #### 5 7021-8 #### [facility] CLIA [id number] [address] [place] [address] [place] Hemoglobin (Bld) [Mass/Vol] 10.2 g/dL Low 11.5-15.5 [facility] Comment on above: Order Comment: Speci men Type: BLOOD SPECIMEN Ordering Facility: [facility] Address: [address] [place] [address] Performed By: #### 5 7021-8 #### [facility] CLIA [id number] [address] [place] [address] [place] Immature granulocytes (Bld) [#/Vol] 0.14 10*3/uL High <0.10 [facility] Comment on above: Order Comment: Speci men Type: BLOOD SPECIMEN Ordering Facility: [facility] Address: [address] [place] [address] Performed By: #### 5 7021-8 #### [facility] CLIA [id number] [address] [place] [address] [place] Immature granulocytes/100 WBC (Bld) 1.5 % Normal [facility] Comment on above: Order Comment: Speci men Type: BLOOD SPECIMEN Ordering Facility: [facility] Address: [address] [place] [address] Performed By: #### 5 7021-8 #### [facility] CLIA [id number] [address] [place] [address] [place] Lymphocytes (Bld) [#/Vol] 2.19 10*3/uL Normal 1.00-4.00 [facility] Comment on above: Order Comment: Speci men Type: BLOOD SPECIMEN Ordering Facility: [facility] Address: [address] [place] [address] Performed By: #### 5 7021-8 #### [facility] CLIA [id number] [address] [place] [address] [place] Lymphocytes/100 WBC (Bld) 23.5 % Normal [facility] Comment on above: Order Comment: Speci men Type: BLOOD SPECIMEN Ordering Facility: [facility] Address: [address] [place] [address] Performed By: #### 5 7021-8 #### [facility] CLIA [id number] [address] [place] [address] [place] MCH (RBC) [Entitic mass] 26.6 pg Normal 26.0-34.0 [facility] Comment on above: Order Comment: Speci men Type: BLOOD SPECIMEN Ordering Facility: [facility] Address: [address] [place] [address] Performed By: #### 5 7021-8 #### [facility] CLIA [id number] [address] [place] [address] [place] MCHC (RBC) [Mass/Vol] 31.7 g/dL Normal 30.5-36.0 [facility] Comment on above: Order Comment: Speci men Type: BLOOD SPECIMEN Ordering Facility: [facility] Address: [address] [place] [address] Performed By: #### 5 7021-8 #### [facility] CLIA [id number] [address] [place] [address] [place] MCV (RBC) [Entitic vol] 83.9 fL Normal 80.0-100.0 [facility] Comment on above: Order Comment: Speci men Type: BLOOD SPECIMEN Ordering Facility: [facility] Address: [address] [place] [address] Performed By: #### 5 7021-8 #### [facility] CLIA [id number] [address] [place] [address] [place] Monocytes (Bld) [#/Vol] 0.49 10*3/uL Normal <0.87 [facility] Comment on above: Order Comment: Speci men Type: BLOOD SPECIMEN Ordering Facility: [facility] Address: [address] [place] [address] Performed By: #### 5 7021-8 #### [facility] CLIA [id number] [address] [place] [address] [place] Monocytes/100 WBC (Bld) 5.3 % Normal [facility] Comment on above: Order Comment: Speci men Type: BLOOD SPECIMEN Ordering Facility: [facility] Address: [address] [place] [address] Performed By: #### 5 7021-8 #### [facility] CLIA [id number] [address] [place] [address] [place] Neutrophils (Bld) [#/Vol] 6.23 10*3/uL Normal 1.45-7.50 [facility] Comment on above: Order Comment: Speci men Type: BLOOD SPECIMEN Ordering Facility: [facility] Address: [address] [place] [address] Performed By: #### 5 7021-8 #### [facility] CLIA [id number] [address] [place] [address] [place] Neutrophils/100 WBC (Bld) 67.0 % Normal [facility] Comment on above: Order Comment: Speci men Type: BLOOD SPECIMEN Ordering Facility: [facility] Address: [address] [place] [address] Performed By: #### 5 7021-8 #### [facility] CLIA [id number] [address] [place] [address] [place] Nucleated RBC (Bld) [#/Vol] 10*3/uL Normal <0.01 [facility] Comment on above: Order Comment: Speci men Type: BLOOD SPECIMEN Ordering Facility: [facility] Address: [address] [place] [address] Performed By: #### 5 7021-8 #### [facility] CLIA [id number] [address] [place] [address] [place] Nucleated RBC/100 WBC (Bld) [Ratio] 0.0 /100 WBC Normal [facility] Comment on above: Order Comment: Speci men Type: BLOOD SPECIMEN Ordering Facility: [facility] Address: [address] [place] [address] Performed By: #### 5 7021-8 #### [facility] CLIA [id number] [address] [place] [address] [place] Platelet mean volume (Bld) [Entitic vol] 11.5 fL Normal 9.0-12.7 [facility] Comment on above: Order Comment: Speci men Type: BLOOD SPECIMEN Ordering Facility: [facility] Address: [address] [place] [address] Performed By: #### 5 7021-8 #### [facility] CLIA [id number] [address] [place] [address] [place] Platelets (Bld) [#/Vol] 176 10*3/uL Normal 150-400 [facility] Comment on above: Order Comment: Speci men Type: BLOOD SPECIMEN Ordering Facility: [facility] Address: [address] [place] [address] Performed By: #### 5 7021-8 #### [facility] CLIA [id number] [address] [place] [address] [place] RBC (Bld) [#/Vol] 3.84 10*6/uL Low 3.90-5.20 [facility] Comment on above: Order Comment: Speci men Type: BLOOD SPECIMEN Ordering Facility: [facility] Address: [address] [place] [address] Performed By: #### 5 7021-8 #### [facility] CLIA [id number] [address] [place] [address] [place] WBC (Bld) [#/Vol] 9.30 10*3/uL Normal 3.70-11.00 [facility] Comment on above: Order Comment: Speci men Type: BLOOD SPECIMEN Ordering Facility: [facility] Address: [address] [place] [address] Performed By: #### 5 7021-8 #### [facility] CLIA [id number] [address] [place] [address] [place] GESTATIONAL GLUCOSE SCREEN, 1-HOUR, 50 GRAM, NON-FASTINGon 04-13-2024 Glucose [Mass/Vol] 119 mg/dL Normal 74-134 [facility] Comment on above: Order Comment: Speci men Type: BLOOD SPECIMEN Ordering Facility: [facility] Address: [address] [place] [address] Result Comment: [facility] Congress of Obstetricians and Gynecologists (Jamel/Amber) guidelines state a gestational diabetes mellitus positive screen is made, in women not previously diagnosed with overt diabetes, when the 1 hr plasma glucose level is equal to or above 140 mg/dL. The [facility] [employer] [facility] [employer] recommends a 135 mg/dL cutoff. Performed By: #### 5 195-3, 22811-6, 76150-5 #### [facility] CLIA [id number] [address] [place] [address] [place] Reagin and Treponema pallidu m IgG and IgM [Interp]on 04-13-2024 T. pallidum IgG+IgM IA Ql (S) Non-Reactive Normal Nonreactive [facility] Comment on above: Order Comment: Speci men Type: BLOOD SPECIMEN Ordering Facility: [facility] Address: [address] [place] [address] Performed By: #### 5 195-3, 99330-1, 78491-7 #### [facility] CLIA [id number] [address] [place] [address] [place] Reagin+T pallidum IgG+IgM Se rPl-Impon 04-13-2024 Reagin and Treponema pallidum IgG and IgM [Interp] Cannot exclude recent Treponemal infection if specimen collected within 7-10 days after appearance of suspect lesions or 2-3 weeks after an exposure. Clinical correlation is required. Normal [facility] Comment on above: Order Comment: Costa bergeron Type: BLOOD SPECIMEN Ordering Facility: [facility] Address: [address] [place] [address] Performed By: #### 5 195-3, 45117-5, 82515-7 #### [facility] IA [id number] [address] [place], [place] [address] [place] Examination level ultrasound on 03-17-2024 [facility] Radiology Study observation (narrative) Judie Cross 02-18-2024 RUTH Telephone (OGFVWE) SHILPA HOANG ([id number]) 1995 F Date Time Provider Department 02/18/24 NURSE [employer]SET [facility] During your visit today, we recorded the following information about you: Carla Mckinney, RN 02/18/2024 9:53 AM Signed 2nd risk [...] Status:Closed by CARLA MCKINNEY on 02/18/24 Normal [facility] Examination level ultrasound on 02-17-2024 Indication Detailed [...] 12 oz EFW by: [employer]lock (HC-AC-FL) [employer] Reinforcing [employer] Erector 5.9 mm CM 2.1 mm <1% Nicolaides [...] normal LVOT view: normal 3-vessel view: normal 5-xiwuul-bpiwsxa view: normal Heart / Thorax Situs: situs [...] By: Yue Milan RDMS Read By: Tyler Farrlel M.D. MATERNAL MEDICINE [facility] Radiology Study observation (narrative) [facility] SEQUENTIAL SCN SECOND TRIMon 01-20-2024 AFP [Mass/Vol] 15.5 ng/mL Normal [facility] Comment on above: Order Comment: Speci men Type: BLOOD SPECIMENOrdering Facility: [facility] Address: [address] [place] [address] Performed By: #### S EQ2 ####[facility] LABCLIA [id number] [place] [address] AFP adjusted [MoM] 0.56 [facility] Comment on above: Order Comment: Speci men Type: BLOOD SPECIMENOrdering Facility: [facility] Address: [address] [place] [address] Performed By: #### S EQ2 ####[facility] LABCLIA [id number] [place] [address] [age] Normal [facility] Comment on above: Order Comment: Speci men Type: BLOOD SPECIMENOrdering Facility: [facility] Address: [address] [place] [address] Performed By: #### S EQ2 ####[facility] LABCLIA [id number] [place] [address] Collection date (Specimen) Date: Normal [facility] Comment on above: Order Comment: Speci men Type: BLOOD SPECIMENOrdering Facility: [facility] Address: [address] [place] [address] Result Comment: 12/23 Performed By: #### S EQ2 ####[facility] LABCLIA [id number] [place] [address] E3.unconjugated [Mass/Vol] 0.84 ng/mL Normal [facility] Comment on above: Order Comment: Speci men Type: BLOOD SPECIMENOrdering Facility: [facility] Address: [address] [place] [address] Performed By: #### S EQ2 ####[facility] LABCLIA [id number] [place] [address] E3.unconjugated adjusted [MoM] 0.95 Normal [facility] Comment on above: Order Comment: Speci men Type: BLOOD SPECIMENOrdering Facility: [facility] Address: [address] [place] [address] Performed By: #### S EQ2 ####[facility] LABCLIA [id number] [place] [address] [place] Rump length US 72.3 mm Normal [facility] Comment on above: Order Comment: Speci men Type: BLOOD SPECIMENOrdering Facility: [facility] Address: [address] [place] [address] Performed By: #### S EQ2 ####[facility] LABCLIA [id number] [place] [address] Nuchal fold [Multiple of the median] Thickness US 0.88 Normal [facility] Comment on above: Order Comment: Speci men Type: BLOOD SPECIMENOrdering Facility: [facility] Address: [address] [place] [address] Performed By: #### S EQ2 ####[facility] LABCLIA [id number] [place] [address] Nuchal fold Thickness US 1.4 mm Normal [facility] Comment on above: Order Comment: Speci men Type: BLOOD SPECIMENOrdering Facility: [facility] Address: [address] [place] [address] Performed By: #### S EQ2 ####[facility] LABCLIA [id number] [place] [address] First and Second trimester integrated maternal screen [Interp] Comment Normal [facility] Comment on above: Order Comment: Speci men Type: BLOOD SPECIMENOrdering Facility: [facility] Address: [address] [place] [address] Result Comment: Scre en Negative for Open Spina Bifida. Comment Screen Negative for Down syndrome Comment Screen Negative for Trisomy 18 Performed By: #### S EQ2 ####[facility] LABCLIA [id number] [place] [address] FIRST TRIMESTER SAMPLE Comment Normal [facility] Comment on above: Order Comment: Speci men Type: BLOOD SPECIMENOrdering Facility: [facility] Address: [address] [place] [address] Performed By: #### S EQ2 ####[facility] LABCLIA [id number] [place] [address] Gestational age 15.9 weeks Normal [facility] Comment on above: Order Comment: Speci men Type: BLOOD SPECIMENOrdering Facility: [facility] Address: [address] [place] [address] Performed By: #### S EQ2 ####[facility] LABCLIA [id number] [place] [address] HCG adjusted [MoM] 1.25 [facility] Comment on above: Order Comment: Speci men Type: BLOOD SPECIMENOrdering Facility: [facility] Address: [address] [place] [address] Performed By: #### S EQ2 ####[facility] LABCLIA [id number] [place] [address] HCG Qn 41.6 IU/mL Normal [facility] Comment on above: Order Comment: Speci men Type: BLOOD SPECIMENOrdering Facility: [facility] Address: [address] [place] [address] Performed By: #### S EQ2 ####[facility] LABCLIA [id number] [place] [address] Inhibin A [Mass/Vol] 114.6 pg/mL Normal [facility] Comment on above: Order Comment: Speci men Type: BLOOD SPECIMENOrdering Facility: [facility] Address: [address] [place] [address] Performed By: #### S EQ2 ####[facility] LABCLIA [id number] [place] [address] Inhibin A adjusted [MoM] 0.81 Normal [facility] Comment on above: Order Comment: Speci men Type: BLOOD SPECIMENOrdering Facility: [facility] Address: [address] [place] [address] Performed By: #### S EQ2 ####[facility] LABCLIA [id number] [place] [address] Insulin dependent diabetes mellitus Ql No Normal [facility] Comment on above: Order Comment: Speci men Type: BLOOD SPECIMENOrdering Facility: [facility] Address: [address] [place] [address] Performed By: #### S EQ2 ####[facility] LABCLIA [id number] [place] [address] Laboratory comment Jose (Report) Comment Normal [facility] Comment on above: Order Comment: Speci men Type: BLOOD SPECIMENOrdering Facility: [facility] Address: [address] [place] [address] Result Comment: The [place] [employer] recommends that all women be counseled regarding the differences between screening and invasive diagnostic testing. Performed By: #### S EQ2 ####[facility] LABCLIA [id number] [place] [address] Mother's race Normal [facility] Comment on above: Order Comment: Speci men Type: BLOOD SPECIMENOrdering Facility: [facility] Address: [address] [place] [address] Performed By: #### S EQ2 ####[facility] LABCLIA [id number] [place] [address] Neural tube defect risk Qn (fetus) Screening Risk: Normal [facility] Comment on above: Order Comment: Speci men Type: BLOOD SPECIMENOrdering Facility: [facility] Address: [address] [place] [address] Result Comment: <1 [place] n [phone] Performed By: #### S EQ2 ####[facility] LABCLIA [id number] [place] [address] NOTE: Comment Normal [facility] Comment on above: Order Comment: Speci men Type: BLOOD SPECIMENOrdering Facility: [facility] Address: [address] [place] [address] Result Comment: Raj redman verify all clinical data used in this risk assessment and call [phone] with any corrections. Betzy Nuñez, Ph.D., [facility] Director References: Available upon request Open Spina Bifida (OSB) MoM Cutoffs Marquez 2.5 Black 2.8 IDD 2.0 Twins 4.5 Risk Cutoffs Down Syndrome (DS) cutoff 1:270 Trisomy 18 (T18) cutoff 1:100 For further inquiries contact [employer] Customer Service at [phone]. This test was developed and its performance characteristics determined by [facility]. It has not been cleared or approved by the Food and Drug Administration. Performed By: #### S EQ2 ####[facility] LABCLIA [id number] [place] [address] Number of fetuses by US 1 Normal C [facility] Comment on above: Order Comment: Speci men Type: BLOOD SPECIMENOrdering Facility: [facility] Address: [address] [place] [address] Performed By: #### S EQ2 ####[facility] LABCLIA [id number] [place] [address] associated plasma protein A [Mass/Vol] 396.8 ng/mL Normal [facility] Comment on above: Order Comment: Speci men Type: BLOOD SPECIMENOrdering Facility: [facility] Address: [address] [place] [address] Performed By: #### S EQ2 ####[facility] LABCLIA [id number] [place] [address] associated plasma protein A adjusted [MoM] 0.38 Normal [facility] Comment on above: Order Comment: Speci men Type: BLOOD SPECIMENOrdering Facility: [facility] Address: [address] [place] [address] Performed By: #### S EQ2 ####[facility] LABCLIA [id number] [place] [address] RESULTS Report Normal [facility] Comment on above: Order Comment: Speci men Type: BLOOD SPECIMENOrdering Facility: [facility] Address: [address] [place] [address] Performed By: #### S EQ2 ####[facility] LABCLIA [id number] [place] [address] SECOND TRIMESTER SAMPLE Comment Normal [facility] Comment on above: Order Comment: Speci men Type: BLOOD SPECIMENOrdering Facility: [facility] Address: [address] [place] [address] Performed By: #### S EQ2 ####[facility] LABCLIA [id number] [place] [address] Customer Support Engineer [Identifier] [id number] Normal [facility] Comment on above: Order Comment: Speci men Type: BLOOD SPECIMENOrdering Facility: [facility] Address: [address] [place] [address] Performed By: #### S EQ2 ####[facility] LABCLIA [id number] [place] [address] Trisomy 18 risk Based on maternal age Qn (fetus) Age Risk: Normal [facility] Comment on above: Order Comment: Speci men Type: BLOOD SPECIMENOrdering Facility: [facility] Address: [address] [place] [address] Result Comment: 1 in [phone] Performed By: #### S EQ2 ####[facility] LABCLIA [id number] [place] [address] Trisomy 18 risk Qn (fetus) Screening Risk: Normal [facility] Comment on above: Order Comment: Speci men Type: BLOOD SPECIMENOrdering Facility: [facility] Address: [address] [place] [address] Result Comment: <1 i n [phone] Performed By: #### S EQ2 ####[facility] LABCLIA [id number] [place] [address] Trisomy 21 risk Based on maternal age Qn (fetus) Age Risk: Normal [facility] Comment on above: Order Comment: Speci men Type: BLOOD SPECIMENOrdering Facility: [facility] Address: [address] [place] [address] Result Comment: 1 in 93 Performed By: #### S EQ2 ####[facility] LABCLIA [id number] [place] [address] Trisomy 21 risk Qn (fetus) Screening Risk: Normal [facility] Comment on above: Order Comment: Speci men Type: BLOOD SPECIMENOrdering Facility: [facility] Address: [address] [place] [address] Result Comment: 1 in [phone] Performed By: #### S EQ2 ####[facility] LABCLIA [id number] [place] [address] Ultrasound date Date: Normal [facility] Comment on above: Order Comment: Speci men Type: BLOOD SPECIMENOrdering Facility: [facility] Address: [address] [place] [address] Result Comment: 12/21 Performed By: #### S EQ2 ####[facility] LABCLIA [id number] [place] [address] CBC panel Auto (Bld)on 12-31 Erythrocyte distribution width (RBC) [Ratio] 14.2 % 11.5 - 15.0 % [facility] Hematocrit (Bld) [Volume fraction] 37.5 % 36.0 - 46.0 % [facility] Hemoglobin (Bld) [Mass/Vol] 12.4 g/dL 11.5 - 15.5 g/dL [facility] Interpretation and review of laboratory results Normal [facility] MCH (RBC) [Entitic mass] 28.1 pg 26.0 - 34.0 pg [facility] MCHC (RBC) [Mass/Vol] 33.1 g/dL 30.5 - 36.0 g/dL [facility] MCV (RBC) [Entitic vol] 85.0 fL 80.0 - 100.0 fL [facility] Nucleated RBC (Bld) [#/Vol] NINF [facility] Platelet mean volume (Bld) [Entitic vol] 12.1 fL 9.0 - 12.7 fL [facility] Platelets (Bld) [#/Vol] 181 10*3/uL [facility] RBC (Bld) [#/Vol] 4.41 10*6/uL 3.90 - 5.2 0 m/uL [facility] WBC (Bld) [#/Vol] 9.21 10*3/uL [facility] nuchal translucency me asured by Abdi 01-01-2024 Indication First trimester anatomic survey IUFD 26 weeks, Obesity, BMI >30 Impression REMOTE READ The patient is referred for a first trimester anatomy scan including nuchal translucency measurement as clinically indicated. - Single, live, intrauterine . - [place] rump length measurement is consistent with the [...] view: normal 4-chamber view with color: normal 2-jqjcpz-wanamux view: normal Abdominal cord insertion: normal Stomach: [...] Read By: Tyler Farrell M.D. MATERNAL MEDICINE [facility] Radiology Study observation (narrative) [facility] C. trachomatis+N. gonorrhoea e DNA OFELIA+probe Ql (Unsp spec)on 11-14-2023 C. trachomatis rRNA OFELIA+probe Ql (Unsp spec) Negative Negative for Chlamydia trachomatis by amplificaton [facility] Interpretation and review of laboratory results Normal [facility] N. gonorrhoeae rRNA OFELIA+probe Ql (Unsp spec) Negative Negative for Neisseria gonorrhoeae by amplification [facility] POC DIETETIC TECH ULTRASOUNDon 11-13-19 Indication Confirmation of intrauterine . Confirmation of cardiac activity Impression 1. Single, live, intrauterine . 2. An intrauterine gestational sac with a yolk sac and pole are present. 3. [place] rump length measurement is consistent with the [...] Read By: Sharda Valero CNP MATERNAL MEDICINE [facility] Radiology Study observation (narrative) [facility] Absolute lymphocyte countOrd ered By: Kuldeep Vanegas on 08-10-2023 Lymphocytes Auto (Unsp spec) [#/Vol] 1.57 10*3/uL 0.83-4.51 [facility] Automated lymphocyte count a s percentage of total leukocytesOrdered By: Kuldeep Vanegas on 08-10-2023 Lymphocytes/100 WBC Auto (Unsp spec) 32.8 % 19-41 [facility] Basophil percentageOrdered B y: Kuldeep Vanegas on 08-10-2023 Basophil percentage 5-10 SEEN /hpf 0-5 [facility] Basophils/100 WBC (Bld) 0.6 % 0-1 [facility] Bilirubin [Mass/Vol] 0.30 mg/dL 0.20-1.00 [facility] [facility] Comment on above: For patients on eltr ombopag therapy, use of Dimension [place] TBIL is not recommended. Chloride [Moles/Vol] 112 mmol/L 98-107 [facility] Eosinophils/100 WBC (Bld) 6.1 % 0-5 [facility] Glucose [Mass/Vol] 85 mg/dL 74-106 [facility] Hemoglobin (Bld) [Mass/Vol] 12.1 g/dL 12.0-15.0 [facility] Monocytes/100 WBC (Bld) 9.4 % 0-10 [facility] Neutrophils (Bld) [#/Vol] 2.4 10*3/uL 2.0-7.7 [facility] Neutrophils/100 WBC (Bld) 50.9 % 47-70 [facility] Potassium [Moles/Vol] 3.8 mmol/L 3.5-5.1 [facility] Protein [Mass/Vol] 7.0 g/dL 6.4-8.2 [facility] Sodium [Moles/Vol] 139 mmol/L 136-145 [facility] WBC (Bld) [#/Vol] 4.8 10*3/uL 4.4-11.0 [facility] Bilirubin Test strip Ql (U)O rdered By: Kuldeep Vanegas on 08-10-2023 Bilirubin Ql (U) Negative Negative [facility] Determination of erythrocyte mean corpuscular volume (MCV)Ordered By: Kuldeep Vanegas on 08-10-2023 MCV (RBC) [Entitic vol] 85.3 fL 81-99 [facility] Erythrocyte distribution wid th ratioOrdered By: Kuldeep Vanegas on 08-10-2023 Erythrocyte distribution width (RBC) [Ratio] 13.1 % 11.6-14.6 [facility] Erythrocyte distribution wid th standard deviationOrdered By: Kuldeep Vanegas on 08-10-2023 Erythrocyte distribution width (RBC) [Entitic vol] 39.9 fL 35.1-43.9 [facility] Hematocrit Auto (Bld) [Volum e fraction]Ordered By: Kuldeep Vanegas on 08-10-2023 Hematocrit (Bld) [Volume fraction] 37.7 % 37-47 [facility] Immature granulocytes/100 WB C Auto (Bld)Ordered By: Kuldeep Vanegas on 08-10-2023 Immature granulocytes/100 WBC (Bld) 0.200 % 0.0-0.9 [facility] Comment on above: IG% - Immature Granu locytes (promyelocytes, myelocytes and metamyelocytes) > 1% indicates that a LEFT SHIFT is Present. Ketones Test strip Ql (U)Ord ered By: Kuldeep Vanegas on 08-10-2023 Ketones Ql (U) Negative Negative [facility] Laboratory - Chemistry and C hemistry - challengeOrdered By: Kuldeep Vanegas on 08-10-2023 HCG ( test) Ql (U) Negative [facility] Comment on above: Very dilute urine sp ecimens, as indicated by a low specificgravity, may not contain ict sales representative levels of hCG. If is still suspected, a first morning urinespecimen should be collected 48 hours later and tested. Albumin/Globulin [Mass ratio] 0.9 {ratio} 0.9-2.4 [facility] ALP [Catalytic activity/Vol] 104 U/L 45-117 [facility] ALT [Catalytic activity/Vol] 46 U/L 13-56 [facility] CO2 [Moles/Vol] 24.0 mmol/L 21.0-32.0 [facility] Globulin (S) [Mass/Vol] 3.7 g/dL 2.2-4.2 [facility] Urea nitrogen/Creatinine [Mass ratio] 15.1 mg/mg 10-20 [facility] - Hematology and Cell countsOrdered By: Kuldeep Vanegas on 08-10-2023 MCH (RBC) [Entitic mass] 27.4 pg 27.0-32.0 [facility] MCHC (RBC) [Mass/Vol] 32.1 g/dL 32-36 [facility] Nucleated RBC/100 WBC (Bld) [Ratio] 0 % 0-5 [facility] Platelet mean volume (Bld) [Entitic vol] 12.2 fL 6.2-12.0 [facility] Platelets (Bld) [#/Vol] 187 10*3/uL 150-450 [facility] - Microbiology an d Antimicrobial susceptibilityOrdered By: Kuldeep Vanegas on 08-10-2023 SARS-CoV-2 (COVID-19) RNA OFELIA+probe Ql (Unsp spec) [facility] Mucus LM Ql (Urine sed)Order ed By: Kuldeep Vanegas on 08-10-2023 Mucus Ql (Urine sed) 0 SEEN /hpf [facility] Nitrite Test strip Ql (U)Ord ered By: Kuldeep Vanegas on 08-10-2023 Nitrite Ql (U) Negative Negative [facility] No Panel InformationOrdered By: Kuldeep Vanegas on 08-10-2023 Urine RBC 0 SEEN /hpf 0-5 [facility] Estimated Creatinine Clearance Calc 155.99 ml/min [facility] Estimated GFR (MDRD) Amer 156 mL/min >60 [facility] Comment on above: GFR Calc Estimated GFR (MDRD) Non-Af Amer 129 mL/min >60 [facility] Comment on above: Non- GFR Calc Protein Test strip Ql (U)Ord ered By: Kuldeep Vanegas on 08-10-2023 Protein Ql (U) Negative Negative [facility] RBC Auto (Bld) [#/Vol]Ordere d By: Kuldeep Vanegas on 08-10-2023 RBC (Bld) [#/Vol] 4.42 10*6/uL 4.2-5.4 [facility] [place] Serum or plasma calcium roopa urement (mass/volume)Ordered By: Kuldeep Vanegas on 08-10-2023 Calcium [Mass/Vol] 8.7 mg/dL 8.5-10.1 [facility] Serum or plasma creatinine m easurement (mass/volume)Ordered By: Kuldeep Vanegas on 08-10-2023 Creatinine [Mass/Vol] 0.60 mg/dL 0.55-1.02 [facility] Comment on above: The validity of the calculated GFR & GFRAA in patients over 70 years has not been determined. Clinical correlation is essential. Serum or plasma urea nitroge n measurement (mass/volume)Ordered By: Kuldeep Vanegas on 08-10-2023 Urea nitrogen [Mass/Vol] 9 mg/dL 7-18 [facility] Squamous epithelial cells de tection in urine sediment by light microscopyOrdered By: Kuldeep Vanegas on 08-10-2023 Epithelial cells.squamous LM Ql (Urine sed) 10-25 SEEN /hpf 5-10 [facility] Thin prep Papanicolaou smear with manual screeningOrdered By: Kuldeep Vanegas on 08-10-2023 Thin prep Papanicolaou smear with manual screening 3.3 g/dL 3.2-5.0 [facility] Thin prep Papanicolaou smear with manual screening 25 U/L 15-37 [facility] Thin prep Papanicolaou smear with manual screening 3 5-15 [facility] Urine blood detectionOrdered By: Kuldeep Vanegas on 08-10-2023 RBC Ql (U) Negative Negative [facility] Urine clarityOrdered By: Iker Vanegas on 08-10-2023 Clarity (U) Sl. Cloudy Clear [facility] Urine color determinationOrd ered By: Kuldeep Vanegas on 08-10-2023 Color (U) Yellow Yellow [facility] Urine glucose detectionOrder ed By: Kuldeep Vanegas on 08-10-2023 Glucose Ql (U) Normal mg/dl Normal [facility] Urine leukocyte esterase det ection by dipstickOrdered By: Kuldeep Vanegas on 08-10-2023 Leukocyte esterase Test strip Ql (U) 500 /ul Negative [facility] Urine pHOrdered By: Kuldeep patel on 08-10-2023 pH (U) 6.0 [pH] 5.0 - 8.0 [facility] Urine sediment bacteria coun t by microscopy (number/high power field)Ordered By: Kuldeep Vanegas on 08-10-2023 Bacteria LM.HPF (Urine sed) [#/Area] 3 /[HPF] None Seen [facility] Urine specific gravity measu rementOrdered By: Kuldeep Vanegas on 08-10-2023 Specific gravity (U) [Rel density] 1.015 1.002-1.030 [facility] Urine urobilinogen measureme ntOrdered By: Kuldeep Vanegas on 08-10-2023 Urobilinogen Ql (U) 1 mg/dl Normal [facility] [place] Absolute lymphocyte countOrd ered By: David Mckinney on 07-04-2023 Lymphocytes Auto (Unsp spec) [#/Vol] 2.38 10*3/uL 0.83-4.51 [facility] Basophil percentageOrdered B y: David Mckinney on 07-04-2023 Basophil percentage 5-10 SEEN /hpf 0-5 [facility] Basophils/100 WBC (Bld) 0.8 % 0-1 [facility] Eosinophils/100 WBC (Bld) 7.3 % 0-5 [facility] Neutrophils (Bld) [#/Vol] 6.4 10*3/uL 2.0-7.7 [facility] Neutrophils/100 WBC (Bld) 63.4 % 47-70 [facility] WBC (Bld) [#/Vol] 10.1 10*3/uL 4.4-11.0 [facility] [place] Beta hCG serum qualOrdered B y: David Mckinney on 07-04-2023 Beta HCG ( test) Ql Negative [facility] Bilirubin Test strip Ql (U)O rdered By: David Mckinney on 07-04-2023 Bilirubin Ql (U) Negative Negative [facility] Blood erythrocytes count (nu mber/volume)Ordered By: David Mckinney on 07-04-2023 RBC (Bld) [#/Vol] 4.70 10*6/uL 4.2-5.4 [facility] [place] Blood hemoglobin measurement (mass/volume)Ordered By: David Mckinney on 07-04-2023 Hemoglobin (Bld) [Mass/Vol] 13.1 g/dL 12.0-15.0 [facility] Blood lymphocytes/100 leukoc ytesOrdered By: David Mckinney on 07-04-2023 Lymphocytes/100 WBC (Bld) 23.5 % 19-41 [facility] Blood monocytes/100 leukocyt esOrdered By: David Mckinney on 07-04-2023 Monocytes/100 WBC (Bld) 4.6 % 0-10 [facility] Blood platelet mean volumeOr dered By: David Mckinney on 07-04-2023 Platelet mean volume (Bld) [Entitic vol] 12.6 fL 6.2-12.0 [facility] Culture, urineOrdered By: Davidson Mckinney on 07-04-2023 Bacteria identified Cx Nom (U) Escherichia coli [facility] Determination of erythrocyte mean corpuscular volume (MCV)Ordered By: David Mckinney on 07-04-2023 MCV (RBC) [Entitic vol] 88.3 fL 81-99 [facility] Hematocrit Auto (Bld) [Volum e fraction]Ordered By: David Mckinney on 07-04-2023 Hematocrit (Bld) [Volume fraction] 41.5 % 37-47 [facility] Ketones Test strip Ql (U)Ord ered By: David Mckinney on 07-04-2023 Ketones Ql (U) Negative Negative [facility] - Hematology and Cell countsOrdered By: David Mckinney on 07-04-2023 Erythrocyte distribution width (RBC) [Entitic vol] 40.8 fL 35.1-43.9 [facility] Erythrocyte distribution width (RBC) [Ratio] 12.5 % 11.6-14.6 [facility] Immature granulocytes/100 WBC (Bld) 0.400 % 0.0-0.9 [facility] Comment on above: IG% - Immature Granu locytes (promyelocytes, myelocytes and metamyelocytes) > 1% indicates that a LEFT SHIFT is Present. MCH (RBC) [Entitic mass] 27.9 pg 27.0-32.0 [facility] Nucleated RBC/100 WBC (Bld) [Ratio] 0 % 0-5 [facility] MCHC Auto (RBC) [Mass/Vol]Or dered By: David Mckinney on 07-04-2023 MCHC (RBC) [Mass/Vol] 31.6 g/dL 32-36 [facility] Mucus LM Ql (Urine sed)Order ed By: David Mckinney on 07-04-2023 Mucus Ql (Urine sed) 0 SEEN /hpf [facility] Nitrite Test strip Ql (U)Ord ered By: David Mckinney on 07-04-2023 Nitrite Ql (U) Positive Negative [facility] Platelets bldOrdered By: Maya Mckinney on 07-04-2023 Platelets (Bld) [#/Vol] 218 10*3/uL 150-450 [facility] Protein Test strip Ql (U)Ord ered By: David Mckinney on 07-04-2023 Protein Ql (U) Negative Negative [facility] Serum or plasma progesterone measurement (mass/volume)Ordered By: David Mckinney on 07-04-2023 Progesterone [Mass/Vol] 2.17 ng/mL See Comment [facility] Comment on above: Progesterone Referen ce [...] Ql (Urine sed) 5-10 SEEN /hpf 5-10 [facility] Urine blood detectionOrdered By: David Mckinney on 07-04-2023 RBC Ql (U) 10 /ul Negative [facility] RBC Ql (U) 0 SEEN /hpf 0-5 [facility] Urine clarityOrdered By: Maya Mckinney on 07-04-2023 Clarity (U) Cloudy Clear [facility] Urine color determinationOrd ered By: David Mckinney on 07-04-2023 Color (U) Yellow Yellow [facility] Urine glucose detectionOrder ed By: David Mckinney on 07-04-2023 Glucose Ql (U) Normal mg/dl Normal [facility] Urine leukocyte esterase det ection by dipstickOrdered By: David Mckinney on 07-04-2023 Leukocyte esterase Test strip Ql (U) 100 /ul Negative [facility] Urine pHOrdered By: David aviles on 07-04-2023 pH (U) 6.0 [pH] 5.0 - 8.0 [facility] Urine sediment bacteria coun t by microscopy (number/high power field)Ordered By: David Mckinney on 07-04-2023 Bacteria LM.HPF (Urine sed) [#/Area] 3 /[HPF] None Seen [facility] Urine specific gravity measu rementOrdered By: David Mckinney on 07-04-2023 Specific gravity (U) [Rel density] 1.015 1.002-1.030 [facility] Urobilinogen Auto test strip Ql (U)Ordered By: David Mckinney on 07-04-2023 Urobilinogen Ql (U) Normal mg/dl Normal [facility] Beta hCG serum qualOrdered B y: Alex Dubois on 06-10-2023 Beta HCG ( test) Ql Negative [facility] Influenza virus A and B and SARS-CoV-2 (COVID-19) Ag panel - Upper respiratory specimOrdered By: Chantal Perez on 05-11-2023 SARS-CoV-2 (COVID-19) RNA OFELIA+probe Ql (Resp) [facility] Upper respiratory specimen i nfluenza A virus, influenza B virus, and severe acute respiratory syndromOrdered By: Chantal Perez on 05-11-2023 Upper respiratory specimen influenza A virus, influenza B virus, and severe acute respiratory syndrom [facility] Absolute lymphocyte countOrd ered By: David Mckinney on 05-01-2023 Lymphocytes Auto (Unsp spec) [#/Vol] 2.12 10*3/uL 0.83-4.51 [facility] Basophil percentageOrdered B y: David Mckinney on 05-01-2023 Basophils/100 WBC (Bld) 0.9 % 0-1 [facility] Bilirubin [Mass/Vol] 0.30 mg/dL 0.20-1.00 [facility] Comment on above: For patients on eltr ombopag therapy, use of Dimension [place] TBIL is not recommended. Chloride [Moles/Vol] 106 mmol/L 98-107 [facility] Eosinophils/100 WBC (Bld) 5.4 % 0-5 [facility] Glucose [Mass/Vol] 90 mg/dL 74-106 [facility] Neutrophils (Bld) [#/Vol] 4.3 10*3/uL 2.0-7.7 [facility] Neutrophils/100 WBC (Bld) 58.5 % 47-70 [facility] Potassium [Moles/Vol] 3.7 mmol/L 3.5-5.1 [facility] Protein [Mass/Vol] 7.8 g/dL 6.4-8.2 [facility] Sodium [Moles/Vol] 138 mmol/L 136-145 [facility] WBC (Bld) [#/Vol] 7.4 10*3/uL 4.4-11.0 [facility] Blood erythrocytes count (nu mber/volume)Ordered By: David Mckinney on 05-01-2023 RBC (Bld) [#/Vol] 4.73 10*6/uL 4.2-5.4 [facility] [place] Blood hemoglobin measurement (mass/volume)Ordered By: David Mckinney on 05-01-2023 Hemoglobin (Bld) [Mass/Vol] 13.1 g/dL 12.0-15.0 [facility] Blood lymphocytes/100 leukoc ytesOrdered By: David Mckinney on 05-01-2023 Lymphocytes/100 WBC (Bld) 28.7 % 19-41 [facility] Blood monocytes/100 leukocyt esOrdered By: David Mckinney on 05-01-2023 Monocytes/100 WBC (Bld) 6.2 % 0-10 [facility] Blood platelet mean volumeOr dered By: David Mckinney on 05-01-2023 Platelet mean volume (Bld) [Entitic vol] 13.0 fL 6.2-12.0 [facility] Determination of erythrocyte mean corpuscular volume (MCV)Ordered By: David Mckinney on 05-01-2023 MCV (RBC) [Entitic vol] 88.8 fL 81-99 [facility] Hematocrit Auto (Bld) [Volum e fraction]Ordered By: David Mckinney on 05-01-2023 Hematocrit (Bld) [Volume fraction] 42.0 % 37-47 [facility] - Chemistry and C hemistry - challengeOrdered By: David Mckinney on 05-01-2023 ALP [Catalytic activity/Vol] 95 U/L 45-117 [facility] ALT [Catalytic activity/Vol] 33 U/L 13-56 [facility] CO2 [Moles/Vol] 26.0 mmol/L 21.0-32.0 [facility] Globulin (S) [Mass/Vol] 3.9 g/dL 2.2-4.2 [facility] Urea nitrogen/Creatinine [Mass ratio] 25.6 mg/mg 10-20 [facility] - Hematology and Cell countsOrdered By: David Mckinney on 05-01-2023 Erythrocyte distribution width (RBC) [Entitic vol] 41.9 fL 35.1-43.9 [facility] Erythrocyte distribution width (RBC) [Ratio] 12.8 % 11.6-14.6 [facility] Immature granulocytes/100 WBC (Bld) 0.300 % 0.0-0.9 [facility] Comment on above: IG% - Immature Granu locytes (promyelocytes, myelocytes and metamyelocytes) > 1% indicates that a LEFT SHIFT is Present. MCH (RBC) [Entitic mass] 27.7 pg 27.0-32.0 [facility] Nucleated RBC/100 WBC (Bld) [Ratio] 0 % 0-5 [facility] MCHC Auto (RBC) [Mass/Vol]Or dered By: David Mckinney on 05-01-2023 MCHC (RBC) [Mass/Vol] 31.2 g/dL 32-36 [facility] No Panel InformationOrdered By: David Mckinney on 05-01-2023 Estimated GFR (MDRD) Amer 129 mL/min >60 [facility] Comment on above: GFR Calc Estimated GFR (MDRD) Non-Af Amer 107 mL/min >60 [facility] Comment on above: Non- GFR Calc Thyroid Stimulating Hormone (TSH) 0.63 uIU/mL 0.358-3.74 [facility] Platelets bldOrdered By: Maya Mckinney on 05-01-2023 Platelets (Bld) [#/Vol] 215 10*3/uL 150-450 [facility] Serum or plasma albumin roopa urement (mass/volume)Ordered By: David Mckinney on 05-01-2023 Albumin [Mass/Vol] 3.9 g/dL 3.2-5.0 [facility] Serum or plasma albumin/glob ulin mass ratioOrdered By: David Mckinney on 05-01-2023 Albumin/Globulin [Mass ratio] 1.0 {ratio} 0.9-2.4 [facility] Serum or plasma calcium roopa urement (mass/volume)Ordered By: David Mckinney on 05-01-2023 Calcium [Mass/Vol] 8.8 mg/dL 8.5-10.1 [facility] Serum or plasma creatinine m easurement (mass/volume)Ordered By: David Mckinney on 05-01-2023 Creatinine [Mass/Vol] 0.70 mg/dL 0.55-1.02 [facility] Comment on above: The validity of the calculated GFR & GFRAA in patients over 70 years has not been determined. Clinical correlation is essential. Serum or plasma prolactin me asurement (mass/volume)Ordered By: David Mckinney on 05-01-2023 Prolactin [Mass/Vol] 17.6 ng/mL [facility] Comment on above: NORMAL REFERENCE RAN GES FEMALE NON- 2.2 - 30.3 ng/mL 8.1 - 347.6 ng/mL POST-MENOPAUSAL 0.7 - 31.5 ng/mL MALE 2.5 - 17.4 ng/mL Serum or plasma urea nitroge n measurement (mass/volume)Ordered By: David Mckinney on 05-01-2023 Urea nitrogen [Mass/Vol] 18 mg/dL 7-18 [facility] Thin prep Papanicolaou smear with manual screeningOrdered By: David Mckinney on 05-01-2023 Thin prep Papanicolaou smear with manual screening 12 U/L 15-37 [facility] Thin prep Papanicolaou smear with manual screening 6 5-15 [facility] Absolute lymphocyte countOrd ered By: David Mckinney on 03-12-2023 Lymphocytes Auto (Unsp spec) [#/Vol] 1.89 10*3/uL 0.83-4.51 [facility] Alternaria alternata IgE ser umOrdered By: David Mckinney on 03-12-2023 A. alternata IgE Qn (S) <0.10 kU/L Class 0 [facility] A. alternata IgE Qn (S) Not Reportable [facility] Basophil percentageOrdered B y: David Mckinney on 03-12-2023 Basophils/100 WBC (Bld) 0.7 % 0-1 [facility] Eosinophils/100 WBC (Bld) 4.7 % 0-5 [facility] Neutrophils (Bld) [#/Vol] 3.4 10*3/uL 2.0-7.7 [facility] Neutrophils/100 WBC (Bld) 56.4 % 47-70 [facility] WBC (Bld) [#/Vol] 6.0 10*3/uL 4.4-11.0 [facility] Blood erythrocytes count (nu mber/volume)Ordered By: David Mckinnye on 03-12-2023 RBC (Bld) [#/Vol] 4.94 10*6/uL 4.2-5.4 [facility] [place] Blood hemoglobin measurement (mass/volume)Ordered By: David Mckinney on 03-12-2023 Hemoglobin (Bld) [Mass/Vol] 13.3 g/dL 12.0-15.0 [facility] Blood lymphocytes/100 leukoc ytesOrdered By: David Mckinney on 03-12-2023 Lymphocytes/100 WBC (Bld) 31.8 % 19-41 [facility] Blood monocytes/100 leukocyt esOrdered By: David Mckinney on 03-12-2023 Monocytes/100 WBC (Bld) 6.2 % 0-10 [facility] Blood platelet mean volumeOr dered By: David Mckinney on 03-12-2023 Platelet mean volume (Bld) [Entitic vol] 12.7 fL 6.2-12.0 [facility] Chocolate RASTOrdered By: Davidson Mckinney on 03-12-2023 Chocolate IgE Qn (S) <0.10 kU/L Class 0 [facility] Comment on above: Effective March 24, 2023 [id number] Allergen Profile, BasicFood be made non-orderable. [facility] offers [id number](14). Determination of erythrocyte mean corpuscular volume (MCV)Ordered By: David Mckinney on 03-12-2023 MCV (RBC) [Entitic vol] 86.0 fL 81-99 [facility] Hematocrit Auto (Bld) [Volum e fraction]Ordered By: David Mckinney on 03-12-2023 Hematocrit (Bld) [Volume fraction] 42.5 % 37-47 [facility] - AllergyOrdered By: David Mckinney on 03-12-2023 Sweet gum IgE RAST class (S) <0.10 kU/L Class 0 [facility] - Hematology and Cell countsOrdered By: David Mckinney on 03-12-2023 Erythrocyte distribution width (RBC) [Entitic vol] 40.7 fL 35.1-43.9 [facility] Erythrocyte distribution width (RBC) [Ratio] 13.1 % 11.6-14.6 [facility] Immature granulocytes/100 WBC (Bld) 0.200 % 0.0-0.9 [facility] Comment on above: IG% - Immature Granu locytes (promyelocytes, myelocytes and metamyelocytes) > 1% indicates that a LEFT SHIFT is Present. MCH (RBC) [Entitic mass] 26.9 pg 27.0-32.0 [facility] Nucleated RBC/100 WBC (Bld) [Ratio] 0 % 0-5 [facility] - Miscellaneous t estsOrdered By: David Mckinney on 03-12-2023 Service comment (Unsp spec) [Interp] Comment . [facility] Comment on above: Levels of Specific [...] 03-12-2023 MCHC (RBC) [Mass/Vol] 31.3 g/dL 32-36 [facility] No Panel InformationOrdered By: David Mckinney on 03-12-2023 Aspergillus fumigatus Allergen <0.10 kU/L Class 0 [facility] Common Ragweed (Short) Allergen <0.10 kU/L Class 0 [facility] Venezuelan Plantain Allergen (RAST) <0.10 kU/L Class 0 [facility] Maple (Troup) Allergen IgE Ab 0.27 kU/L Class 0/I [facility] Seafood Group Allergens (RAST) Negative . [facility] Comment on above: Allergens in this mi x are: Blue mussel Fish [place] Shrimp TunaEffective March 24, 2023 [id number] Food Mix(Seafoods) will be made non-orderable. [facility] [id number] Allergens(5). [place] Tree Allergen <0.10 kU/L Class 0 [facility] Cat Hair Allergen Not Reportable [facility] Immunoglobulin E See comment [facility] Comment on above: TEST RESULT LIMITSCl ass Description: Levels of Specific IgE Class Description of Class ----- < 0.10 0 Negative 0.10 - 0.31 0/I Equivocal/Low 0.32 - 0.55 I Low 0.56 - 1.40 II Moderate 1.41 - 3.90 III High 3.91 - 19.00 IV Very High19.01 - 100.00 V Very High >100.00 Very ImdtD234-RzL D pteronyssinus <0.10 kU/L Class 2N438-MqN D farinae <0.10 kU/L Class 0D153-FeQ Cat Dander <0.10 kU/L Class 9Z659-OoA Dog Dander <0.10 kU/L Class 3I009-HlA Bermuda Grass 0.11 Abnormal kU/L Class 0/JS971-UgF [place] Grass, Perennial <0.10 kU/L Class 8W499-DjG Reece Grass 0.10 Abnormal kU/L Class 0/OE563-BwB Bahia Grass <0.10 kU/L Class 0*V925-HzQ Cockroach, Syrian <0.10 kU/L Class 8V815-DbE Penicillium chrysogen <0.10 kU/L Class 1Q891-WgF Cladosporium herbarum <0.10 kU/L Class 8S199-HdE Aspergillus fumigatus <0.10 kU/L Class 3B547-GvM Mucor racemosus <0.10 kU/L Class 9F216-ThC Alternaria alternata <0.10 kU/L Class 4S875-QbD Stemphylium herbarum <0.10 kU/L Class 0E312-MgX Elm, Syrian 0.27 Abnormal kU/L Class 0/TA368-UvF Eucalyptus <0.10 kU/L Class 3T442-FvN Maple/Troup 0.37 Abnormal kU/L Class YN117-NfN [place]ley, Serbian <0.10 kU/L Class 0*D903-GmV Pepper Tree 0.20 Abnormal kU/L Class 0/I*G999-ZkA [place], Live/Radha <0.10 kU/L Class 2N759-JaP Privet, Common <0.10 kU/L Class 0*B615-WbU Bayberry/Sweet Gale <0.10 kU/L Class 9I039-HsU Palm, Batista <0.10 kU/L Class 9X882-RaY Ragweed, Short 0.11 Abnormal kU/L Class 0/NY581-OxQ Plantain, Venezuelan <0.10 kU/L Class 4F143-FxR Long's Quarters <0.10 kU/L Class 4N800-EyA Sheep [place] <0.10 kU/L Class 0*G751-AwW Fennel, Dog <0.10 kU/L Class 0Tests with asterisk (*) were developed and had performancecharacteristics determined by [facility]. These tests have not been cleared or approved by the U.S. Food and Drug Administration.The FDA has determined that such clearance or approval is notnecessary. These tests are used for clinical purposes. These tests should not be regarded as investigational or for research. ____ TESTING PERFORMED AT [facility]. ORIGINAL REPORT ON FILE IN LAB CONTAINS ADDITIONAL TEST SITE INFORMATION. Mouse Urine Allergen IgE Antibody Not Reportable [facility] Platelets bldOrdered By: Maya Mckinney on 03-12-2023 Platelets (Bld) [#/Vol] 183 10*3/uL 150-450 [facility] Rough pigweed specific IgE a ntibody assayOrdered By: David Mckinney on 03-12-2023 Rough Pigweed IgE Qn (S) <0.10 kU/L Class 0 [facility] Serum Aspergillus fumigatus IgE antibody assay (units/volume)Ordered By: David Mckinney on 03-12-2023 A. fumigatus IgE Qn (S) Not Reportable [facility] Serum Bermuda grass IgE anti body assay (units/volume)Ordered By: David Mckinney on 03-12-2023 Bermuda grass IgE Qn (S) 0.12 kU/L Class 0/I [facility] Bermuda grass IgE Qn (S) Not Reportable [facility] Serum Cladosporium herbarum IgE antibody assay (units/volume)Ordered By: David Mckinney on 03-12-2023 C. herbarum IgE Qn (S) <0.10 kU/L Class 0 [facility] C. herbarum IgE Qn (S) Not Reportable [facility] Serum Dermatophagoides farin ae specific IgE antibody assay (units/volume)Ordered By: David Mckineny on 03-12-2023 Syrian house dust mite IgE Qn (S) <0.10 kU/L Class 0 [facility] Serum house dust mi te IgE antibody assay (units/volume)Ordered By: David Mckinney on 03-12-2023 house dust mite IgE Qn (S) <0.10 kU/L Class 0 [facility] house dust mite IgE Qn (S) Not Reportable [facility] Serum Reece grass IgE anti body assay (units/volume)Ordered By: David Mckinney on 03-12-2023 Reece grass IgE Qn (S) 0.12 kU/L Class 0/I [facility] Serum [place] blue grass Ig E antibody assay (units/volume)Ordered By: David Mckinney on 03-12-2023 [place] blue grass IgE Qn (S) <0.10 kU/L Class 0 [facility] Serum Mucor racemosus IgE an tibody assay (units/volume)Ordered By: David Mckinney on 03-12-2023 Mucor racemosus IgE Qn (S) <0.10 kU/L Class 0 [facility] Serum Penicillium notatum Ig E antibody assay (units/volume)Ordered By: David Mckinney on 03-12-2023 P. notatum IgE Qn (S) <0.10 kU/L Class 0 [facility] Serum Periplaneta americana IgE antibody assay (units/volume)Ordered By: David Mckinney on 03-12-2023 Syrian Cockroach IgE Qn (S) <0.10 kU/L Class 0 [facility] Serum Polish thistle specif ic IgE antibody assayOrdered By: David Mckinney on 03-12-2023 Saltwort IgE Qn (S) Not Reportable [facility] Serum bahia grass IgE antibo dy assay (units/volume)Ordered By: David Mckinney on 03-12-2023 Bahia grass IgE Qn (S) <0.10 kU/L Class 0 [facility] Serum beef IgE antibody assa y (units/volume)Ordered By: David Mckinney on 03-12-2023 Beef IgE Qn (S) <0.10 kU/L Class 0 [facility] Serum birch specific IgE ant ibody assayOrdered By: David Mckinney on 03-12-2023 Silver Birch IgE Qn (S) Not Reportable [facility] Serum black walnut IgE antib pinky assay (units/volume)Ordered By: David Mckinney on 03-12-2023 Black [place] IgE Qn (S) 0.72 kU/L Class II [facility] Comment on above: Performed at: [address] [id number] Director: Jordan Chew MD, Phone: [phone] Black [place] IgE Qn (S) Not Reportable [facility] Serum cat dander IgE antibod y assay (units/volume)Ordered By: David Mckinney on 03-12-2023 Cat dander IgE Qn (S) <0.10 kU/L Class 0 [facility] Serum corn IgE antibody assa y (units/volume)Ordered By: David Mckinney on 03-12-2023 [place] IgE Qn (S) 0.60 kU/L Class II [facility] Serum cottonwood IgE antibod y assay (units/volume)Ordered By: David Mckinney on 03-12-2023 [place] IgE Qn (S) Not Reportable [facility] Serum cow milk IgE antibody assay (units/volume)Ordered By: David Mckinney on 03-12-2023 Cow milk IgE Qn (S) <0.10 kU/L Class 0 [facility] [place] Serum dog epithelium IgE ant ibody assay (units/volume)Ordered By: David Mckinney on 03-12-2023 Dog epithelium IgE Qn (S) <0.10 kU/L Class 0 [facility] Serum hazelnut pollen IgE an tibody assay (units/volume)Ordered By: David Mckinney on 03-12-2023 Hazelnut Pollen IgE Qn (S) <0.10 kU/L Class 0 [facility] Serum mountain cedar specifi c IgE antibody assayOrdered By: David Mckinney on 03-12-2023 Mountain Juniper IgE Qn (S) <0.10 kU/L Class 0 [facility] Serum mugwort IgE antibody a ssay (units/volume)Ordered By: David Mckinney on 03-12-2023 Mugwort IgE Qn (S) <0.10 kU/L Class 0 [facility] Serum nettle IgE antibody as say (units/volume)Ordered By: David Mckinney on 03-12-2023 Nettle IgE Qn (S) <0.10 kU/L Class 0 [facility] Serum peanut IgE antibody as say (units/volume)Ordered By: David Mckinney on 03-12-2023 Peanut IgE Qn (S) 0.77 kU/L Class II [facility] Serum pecan or hickory nut I gE antibody assay (units/volume)Ordered By: David Mckinney on 03-12-2023 Pecan or Luce Nut IgE Qn (S) Not Reportable [facility] Serum pork IgE antibody assa y (units/volume)Ordered By: David Mckinney on 03-12-2023 Pork IgE Qn (S) <0.10 kU/L Class 0 [facility] Serum sheep sorrel IgE antib pinky assay (units/volume)Ordered By: David Mckinney on 03-12-2023 [place] IgE Qn (S) <0.10 kU/L Class 0 [facility] Sheep [place] IgE Qn (S) Not Reportable [facility] Serum soybean IgE antibody a ssay (units/volume)Ordered By: David Mckinney on 03-12-2023 Soybean IgE Qn (S) <0.10 kU/L Class 0 [facility] Serum prosper IgE antibody a ssay (units/volume)Ordered By: David Mckinney on 03-12-2023 Prosper IgE Qn (S) Not Reportable [facility] Serum wheat IgE antibody ass ay (units/volume)Ordered By: David Mckinney on 03-12-2023 Wheat IgE Qn (S) 0.16 kU/L Class 0/I [facility] Serum white deandre IgE antibody assay (units/volume)Ordered By: David Mckinney on 03-12-2023 White Deandre IgE Qn (S) Not Reportable [facility] Serum white elm IgE antibody assay (units/volume)Ordered By: David Mckinney on 03-12-2023 White Elm IgE Qn (S) 0.27 kU/L Class 0/I [facility] White Elm IgE Qn (S) Not Reportable [facility] Serum white hickory IgE anti body assay (units/volume)Ordered By: David Mckinney on 03-12-2023 White Luce IgE Qn (S) <0.10 kU/L Class 0 [facility] Serum white mulberry IgE ant ibody assay (units/volume)Ordered By: David Mckinney on 03-12-2023 White mulberry IgE Qn (S) 0.18 kU/L Class 0/I [facility] White mulberry IgE Qn (S) Not Reportable [facility] Serum white oak IgE antibody assay (units/volume)Ordered By: David Mckinney on 03-12-2023 Conception IgE Qn (S) <0.10 kU/L Class 0 [facility] Serum whole egg IgE antibody assay (units/volume)Ordered By: David Mckinney on 03-12-2023 Whole Egg IgE Qn (S) <0.10 kU/L Class 0 [facility] Stemphylium herbarum IgE ser umOrdered By: David Mckinney on 03-12-2023 Stemphylium botryosum IgE Qn (S) <0.10 kU/L Class 0 [facility] Influenza virus A and B and SARS-CoV-2 (COVID-19) Ag panel - Upper respiratory specimOrdered By: Margarita Griggs on 02-24-2023 SARS-CoV-2 (COVID-19) RNA OFELIA+probe Ql (Resp) [facility] SARS-CoV-2 (COVID-19) RNA OFELIA+probe Ql (Resp) [facility] Throat Streptococcus pyogene s antigen detection by immunofluorescenceOrdered By: Margarita Griggs on 02-24-2023 S. pyogenes Ag IF Ql (Throat) [facility] S. pyogenes Ag IF Ql (Throat) [facility] Absolute lymphocyte countOrd ered By: Zamzam Olson on 12-26-2022 Lymphocytes Auto (Unsp spec) [#/Vol] 1.94 10*3/uL 0.83-4.51 [facility] Basophil percentageOrdered B y: Zamzam Olson on 12-26-2022 Basophils/100 WBC (Bld) 1.2 % 0-1 [facility] Eosinophils/100 WBC (Bld) 5.6 % 0-5 [facility] Neutrophils (Bld) [#/Vol] 3.1 10*3/uL 2.0-7.7 [facility] Neutrophils/100 WBC (Bld) 52.9 % 47-70 [facility] WBC (Bld) [#/Vol] 5.9 10*3/uL 4.4-11.0 [facility] Blood erythrocytes count (nu mber/volume)Ordered By: Zamzam Olson on 12-26-2022 RBC (Bld) [#/Vol] 5.10 10*6/uL 4.2-5.4 [facility] [place] Blood hemoglobin measurement (mass/volume)Ordered By: Zamzam Olson on 12-26-2022 Hemoglobin (Bld) [Mass/Vol] 14.0 g/dL 12.0-15.0 [facility] Blood lymphocytes/100 leukoc ytesOrdered By: Zamzam Olson on 12-26-2022 Lymphocytes/100 WBC (Bld) 33.0 % 19-41 [facility] Blood monocytes/100 leukocyt esOrdered By: Zamzam Olson on 12-26-2022 Monocytes/100 WBC (Bld) 7.1 % 0-10 [facility] Blood platelet mean volumeOr dered By: Zamzam Olson on 12-26-2022 Platelet mean volume (Bld) [Entitic vol] 12.6 fL 6.2-12.0 [facility] Culture, urineOrdered By: Ame Olson on 12-26-2022 Bacteria identified Cx Nom (U) Escherichia coli [facility] Determination of erythrocyte mean corpuscular volume (MCV)Ordered By: Zamzam Olson on 12-26-2022 MCV (RBC) [Entitic vol] 85.3 fL 81-99 [facility] Hematocrit Auto (Bld) [Volum e fraction]Ordered By: Zamzam Olson on 12-26-2022 Hematocrit (Bld) [Volume fraction] 43.5 % 37-47 [facility] Iron measurement (mass/mass) Ordered By: Zamzam Olson on 12-26-2022 Iron (Unsp spec) [Mass/Mass] 74 ug/dL 50-170 [facility] Laboratory - Hematology and Cell countsOrdered By: Zamzam Olson on 12-26-2022 Erythrocyte distribution width (RBC) [Entitic vol] 39.5 fL 35.1-43.9 [facility] Erythrocyte distribution width (RBC) [Ratio] 12.7 % 11.6-14.6 [facility] Immature granulocytes/100 WBC (Bld) 0.200 % 0.0-0.9 [facility] Comment on above: IG% - Immature Granu locytes (promyelocytes, myelocytes and metamyelocytes) > 1% indicates that a LEFT SHIFT is Present. MCH (RBC) [Entitic mass] 27.5 pg 27.0-32.0 [facility] Nucleated RBC/100 WBC (Bld) [Ratio] 0 % 0-5 [facility] MCHC Auto (RBC) [Mass/Vol]Or dered By: Zamzam Olson on 12-26-2022 MCHC (RBC) [Mass/Vol] 32.2 g/dL 32-36 [facility] No Panel InformationOrdered By: Zamzam Olson on 12-26-2022 Total Iron Binding Capacity 447 ug/dL 250-450 [facility] Platelets bldOrdered By: Elizabeth Olson on 12-26-2022 Platelets (Bld) [#/Vol] 215 10*3/uL 150-450 [facility] Serum or plasma ferritin naresh surement (mass/volume)Ordered By: Zamzam Olson on 12-26-2022 Ferritin [Mass/Vol] 11 ng/mL 8-252 [facility] [place] Serum or plasma iron saturat ion measurement (mass fraction)Ordered By: Zamzam Olson on 12-26-2022 Iron saturation [Mass fraction] 16.6 % 15.0-55.0 [facility] Cervical or vagninal specime n microscopic examination by cytology stain (reported asOrdered By: Jorge Ewing on 10-30-2022 Cytology report Cyto stain Doc (Cvx/Vag) Comment . [facility] Comment on above: The Pap smear is a s creening test designed to aid in thedetection of premalignant and malignant conditions of theuterine cervix. It is not a diagnostic procedure andshould not be used as the sole means of detecting cervicalcancer. Both false-positive and false-negative reports dooccur. Laboratory - CytologyOrdered By: Jorge Ewing on 10-30-2022 Anesthesiologist Assistant Certified Cyto stain Nom (Cvx/Vag) [ID] Comment . [facility] Comment on above: Francesco Walsh totskylerologist (ASCP) Laboratory - Miscellaneous t estsOrdered By: Jorge Ewing on 10-30-2022 Service comment (Unsp spec) [Interp] Comment . [facility] Comment on above: This liquid based Th inPrep(R) pap test was screened withthe use of an image guided system. Service comment (Unsp spec) [Interp] . . [facility] No Panel InformationOrdered By: Jorge Ewing on 10-30-2022 Human Papillomavirus Screen Comment . [facility] Comment on above: The HPV DNA reflex c tenisha were not met with this specimenresult therefore, no HPV testing was performed.Performed at: [address], [place] [id number] Director: Autumn Cancino MD, Phone: [phone] Pathology report final diagnosis Narrative Comment . [facility] Comment on above: NEGATIVE FOR INTRAEP ITHELIAL LESION OR MALIGNANCY.TRICHOMONAS VAGINALIS IS PRESENT. Culture, urineOrdered By: Dr Tameka Ewing on 08-17-2022 Bacteria identified Cx Nom (U) Positive [facility] Basophil percentageon 2021 Basophil percentage 10-25 SEEN /hpf 0-5 [facility] Work Phone: [phone] Bilirubin [Mass/Vol] 0.40 mg/dL 0.20-1.00 [facility] Work Phone: [phone] Comment on above: For patients on eltr ombopag therapy, use of Dimension [place] TBIL is not recommended. Chloride [Moles/Vol] 108 mmol/L 98-107 [facility] Work Phone: Glucose [Mass/Vol] 59 mg/dL 74-106 [facility] Work Phone: [phone] Potassium [Moles/Vol] 3.8 mmol/L 3.5-5.1 [facility] Work Phone: [phone] Protein [Mass/Vol] 6.6 g/dL 6.4-8.2 [facility] Work Phone: [phone] Sodium [Moles/Vol] 137 mmol/L 136-145 [facility] Work Phone: [phone] WBC (Bld) [#/Vol] 10.5 10*3/uL 4.4-11.0 [facility] Work Phone: [phone] Bilirubin Test strip Ql (U)o n 02-20-2022 Bilirubin Ql (U) Negative Negative [facility] Work Phone: [phone] Blood erythrocytes count (nu mber/volume)on 02-20-2022 RBC (Bld) [#/Vol] 3.83 10*6/uL 4.2-5.4 [facility] Work Phone: Blood hemoglobin measurement (mass/volume)on 02-20-2022 Hemoglobin (Bld) [Mass/Vol] 10.1 g/dL 12.0-15.0 [facility] Work Phone: Blood platelet mean volumeon 02-20-2022 Platelet mean volume (Bld) [Entitic vol] 12.8 fL 6.2-12.0 [facility] Work Phone: Determination of erythrocyte mean corpuscular volume (MCV)on 02-20-2022 MCV (RBC) [Entitic vol] 83.3 fL 81-99 [facility] Work Phone: Hematocrit Auto (Bld) [Volum e fraction]on 02-20-2022 Hematocrit (Bld) [Volume fraction] 31.9 % 37-47 [facility] Work Phone: Ketones Test strip Ql (U)on 02-20-2022 Ketones Ql (U) Negative Negative [facility] Work Phone: Laboratory - Chemistry and C hemistry - challengeon 02-20-2022 ALP [Catalytic activity/Vol] 194 U/L 45-117 [facility] Work Phone: ALT [Catalytic activity/Vol] 16 U/L 13-56 [facility] Work Phone: CO2 [Moles/Vol] 22.0 mmol/L 21.0-32.0 [facility] Work Phone: Globulin (S) [Mass/Vol] 4.0 g/dL 2.2-4.2 [facility] Work Phone: Urea nitrogen/Creatinine [Mass ratio] 18.0 mg/mg 10-20 [facility] Work Phone: Laboratory - Drug toxicology on 02-20-2022 Benzodiazepines Ql (U) Negative < 200 ng/mL [facility] Work Phone: Cannabinoids Screen Ql (U) Negative < 50 ng/mL [facility] Work Phone: Cocaine Ql (U) Negative < 300 ng/mL [facility] Work Phone: Opiates Ql (U) Negative < 300 ng/mL [facility] Work Phone: Laboratory - Hematology and Cell countson 02-20-2022 Erythrocyte distribution width (RBC) [Entitic vol] 44.0 fL 35.1-43.9 [facility] Work Phone: Erythrocyte distribution width (RBC) [Ratio] 14.6 % 11.6-14.6 [facility] Work Phone: MCH (RBC) [Entitic mass] 26.4 pg 27.0-32.0 [facility] Work Phone: MCHC Auto (RBC) [Mass/Vol]on 02-20-2022 MCHC (RBC) [Mass/Vol] 31.7 g/dL 32-36 [facility] Work Phone: Mucus LM Ql (Urine sed)on Mucus Ql (Urine sed) 1+ /hpf [facility] Work Phone: Nitrite Test strip Ql (U)on 02-20-2022 Nitrite Ql (U) Negative Negative [facility] Work Phone: No Panel Informationon 02-20 MDMA (Ecstasy) Screen Negative < 500 ng/mL [facility] Work Phone: Urine Barbiturates Screen Negative < 200 ng/mL [facility] Work Phone: Urine Drug Screen Comment [facility] Work Phone: Comment on above: CONFIRMATORY [...] Methadone Screen Negative < 300 ng/mL [facility] Work Phone: Urine Trichomonas 0-5 SEEN /hpf None Seen [facility] Work Phone: Estimated Creatinine Clearance Calc 198.42 ml/min [facility] Work Phone: Estimated GFR (MDRD) Amer 259 mL/min >60 [facility] Work Phone: Comment on above: GFR Calc Estimated GFR (MDRD) Non-Af Amer 214 mL/min >60 [facility] Work Phone: Comment on above: Non- GFR Calc Platelets bldon 02-20-2022 Platelets (Bld) [#/Vol] 171 10*3/uL 150-450 [facility] Work Phone: Protein Test strip Ql (U)on 02-20-2022 Protein Ql (U) 15 mg/dl Negative [facility] Work Phone: Serum or plasma albumin roopa urement (mass/volume)on 02-20-2022 Albumin [Mass/Vol] 2.6 g/dL 3.2-5.0 [facility] Work Phone: Serum or plasma albumin/glob ulin mass ratioon 02-20-2022 Albumin/Globulin [Mass ratio] 0.6 {ratio} 0.9-2.4 [facility] Work Phone: Serum or plasma calcium roopa urement (mass/volume)on 02-20-2022 Calcium [Mass/Vol] 8.7 mg/dL 8.5-10.1 [facility] Work Phone: Serum or plasma creatinine m easurement (mass/volume)on 02-20-2022 Creatinine [Mass/Vol] 0.39 mg/dL 0.55-1.02 [facility] Work Phone: Comment on above: The validity of the calculated GFR & GFRAA in patients over 70 years has not been determined. Clinical correlation is essential. Serum or plasma urea nitroge n measurement (mass/volume)on 02-20-2022 Urea nitrogen [Mass/Vol] 7 mg/dL 7-18 [facility] Work Phone: Serum or plasma uric acid me asurement (mass/volume)on 02-20-2022 Urate [Mass/Vol] 3.9 mg/dL 2.6-6.0 [facility] Work Phone: Comment on above: The drugs N-Acetylcy steine and Metamizole may falsely depress this assay. Squamous epithelial cells de tection in urine sediment by light microscopyon 02-20-2022 Epithelial cells.squamous LM Ql (Urine sed) 10-25 SEEN /hpf 5-10 [facility] Work Phone: Thin prep Papanicolaou smear with manual screeningon 02-20-2022 Thin prep Papanicolaou smear with manual screening 16 U/L 15-37 [facility] Work Phone: Thin prep Papanicolaou smear with manual screening 7 5-15 [facility] Work Phone: Thin prep Papanicolaou smear with manual screening 170 U/L 84-246 [facility] Work Phone: Urine amphetamine measuremen t (moles/volume)on 02-20-2022 Amphetamine (U) [Moles/Vol] Negative <1000 ng/mL [facility] Work Phone: Urine blood detectionon 08- RBC Ql (U) 250 /ul Negative [facility] Work Phone: RBC Ql (U) 5-10 SEEN /hpf 0-5 [facility] Work Phone: Urine clarityon 02-20-2022 Clarity (U) Sl. Cloudy Clear [facility] Work Phone: Urine color determinationon 02-20-2022 Color (U) Yellow Yellow [facility] Work Phone: Urine creatinine measurement (mass/volume)on 02-20-2022 Creatinine (U) [Mass/Vol] 109.00 mg/dL NO RANGE EST. [facility] Work Phone: Urine glucose detectionon Glucose Ql (U) 250 mg/dl Normal [facility] Work Phone: [phone] Urine leukocyte esterase det ection by dipstickon 02-20-2022 Leukocyte esterase Test strip Ql (U) 500 /ul Negative [facility] Work Phone: [phone] Urine pHon 02-20-2022 pH (U) 6.0 [pH] 5.0 - 8.0 [facility] Work Phone: Urine phencyclidine (PCP) de tectionon 02-20-2022 Phencyclidine Ql (U) Negative < 25 ng/mL [facility] Work Phone: Urine protein measurement (m ass/volume)on 02-20-2022 Protein (U) [Mass/Vol] 20.4 mg/dL 0.0-11.8 [facility] Work Phone: [phone] Urine protein/creatinine mas s ratioon 02-20-2022 Protein/Creatinine (U) [Mass ratio] 187 mg/g CRE 0-200 [facility] Work Phone: Urine sediment bacteria coun t by microscopy (number/high power field)on 02-20-2022 Bacteria LM.HPF (Urine sed) [#/Area] 4 /[HPF] None Seen [facility] Work Phone: Urine specific gravity measu rementon 02-20-2022 Specific gravity (U) [Rel density] 1.020 1.002-1.030 [facility] Work Phone: Urobilinogen Auto test strip Ql (U)on 02-20-2022 Urobilinogen Ql (U) 1 mg/dl Normal [facility] [place] Work Phone: No Panel Informationon 02-17 Vaginal Amniotic Fluid Detection Negative Negative [facility] Work Phone: Comment on above: Amniotic fluid not p resent indicates No Rupture of FetalMembranes at time of specimen collection. Basophil percentageon 2021 WBC (Bld) [#/Vol] 9.9 10*3/uL 4.4-11.0 [facility] Work Phone: Blood erythrocytes count (nu mber/volume)on 12-13-2021 RBC (Bld) [#/Vol] 3.71 10*6/uL 4.2-5.4 [facility] Work Phone: Blood hemoglobin measurement (mass/volume)on 12-13-2021 Hemoglobin (Bld) [Mass/Vol] 9.9 g/dL 12.0-15.0 [facility] Work Phone: Blood platelet mean volumeon 12-13-2021 Platelet mean volume (Bld) [Entitic vol] 11.9 fL 6.2-12.0 [facility] Work Phone: Determination of erythrocyte mean corpuscular volume (MCV)on 12-13-2021 MCV (RBC) [Entitic vol] 85.2 fL 81-99 [facility] Work Phone: Gestational diabetes screen 1-hour screen with 50g oral glucose loadon 12-13-2021 Glucose 1 Hr post 50 g glucose PO [Mass/Vol] 129 mg/dL 70-140 [facility] Work Phone: Hematocrit Auto (Bld) [Volum e fraction]on 12-13-2021 Hematocrit (Bld) [Volume fraction] 31.6 % 37-47 [facility] Work Phone: Laboratory - Hematology and Cell countson 12-13-2021 Erythrocyte distribution width (RBC) [Entitic vol] 48.6 fL 35.1-43.9 [facility] Work Phone: Erythrocyte distribution width (RBC) [Ratio] 15.7 % 11.6-14.6 [facility] Work Phone: MCH (RBC) [Entitic mass] 26.7 pg 27.0-32.0 [facility] Work Phone: MCHC Auto (RBC) [Mass/Vol]on 12-13-2021 MCHC (RBC) [Mass/Vol] 31.3 g/dL 32-36 [facility] Work Phone: Platelets bldon 12-13-2021 Platelets (Bld) [#/Vol] 172 10*3/uL 150-450 [facility] Work Phone: Absolute lymphocyte counton 11-04-2021 Lymphocytes Auto (Unsp spec) [#/Vol] 2.73 10*3/uL 0.83-4.51 [facility] Work Phone: Basophil percentageon 2021 Basophils/100 WBC (Bld) 0.4 % 0-1 [facility] Work Phone: Eosinophils/100 WBC (Bld) 3.1 % 0-5 [facility] Work Phone: Neutrophils (Bld) [#/Vol] 5.5 10*3/uL 2.0-7.7 [facility] Work Phone: Neutrophils/100 WBC (Bld) 58.8 % 47-70 [facility] Work Phone: WBC (Bld) [#/Vol] 9.4 10*3/uL 4.4-11.0 [facility] Work Phone: Blood erythrocytes count (nu mber/volume)on 11-04-2021 RBC (Bld) [#/Vol] 3.42 10*6/uL 4.2-5.4 [facility] Work Phone: Blood hemoglobin measurement (mass/volume)on 11-04-2021 Hemoglobin (Bld) [Mass/Vol] 9.0 g/dL 12.0-15.0 [facility] Work Phone: Blood lymphocytes/100 leukoc yteson 11-04-2021 Lymphocytes/100 WBC (Bld) 29.1 % 19-41 [facility] Work Phone: Blood monocytes/100 leukocyt eson 11-04-2021 Monocytes/100 WBC (Bld) 7.4 % 0-10 [facility] Work Phone: Blood platelet mean volumeon 11-04-2021 Platelet mean volume (Bld) [Entitic vol] 11.7 fL 6.2-12.0 [facility] Work Phone: [phone] Determination of erythrocyte mean corpuscular volume (MCV)on 11-04-2021 MCV (RBC) [Entitic vol] 84.8 fL 81-99 [facility] Work Phone: Hematocrit Auto (Bld) [Volum e fraction]on 11-04-2021 Hematocrit (Bld) [Volume fraction] 29.0 % 37-47 [facility] Work Phone: Laboratory - Hematology and Cell countson 11-04-2021 Erythrocyte distribution width (RBC) [Entitic vol] 46.1 fL 35.1-43.9 [facility] Work Phone: [phone] Erythrocyte distribution width (RBC) [Ratio] 15.0 % 11.6-14.6 [facility] Work Phone: [phone] Immature granulocytes/100 WBC (Bld) 1.200 % 0.0-0.9 [facility] Work Phone: [phone] Comment on above: IG% - Immature Granu locytes (promyelocytes, myelocytes and metamyelocytes) > 1% indicates that a LEFT SHIFT is Present. MCH (RBC) [Entitic mass] 26.3 pg 27.0-32.0 [facility] Work Phone: [phone] Nucleated RBC/100 WBC (Bld) [Ratio] 0 % 0-5 [facility] Work Phone: MCHC Auto (RBC) [Mass/Vol]on 11-04-2021 MCHC (RBC) [Mass/Vol] 31.0 g/dL 32-36 [facility] Work Phone: Platelets bldon 11-04-2021 Platelets (Bld) [#/Vol] 184 10*3/uL 150-450 [facility] Work Phone: [phone] INR in Blood by Coagulation assayon 11-03-2021 INR Coag (Bld) [Relative time] 1.1 {INR} [facility] Work Phone: Laboratory - Coagulationon 0 11-03-2021 aPTT Coag (Bld) [Time] 27.0 s 24.1-36.2 [facility] Work Phone: PT Coag (PPP) [Time] 13.4 s 11.7-14.9 [facility] Work Phone: Laboratory - Drug toxicology on 11-03-2021 Amphetamines Ql (U) Negative <1000 ng/mL [facility] Work Phone: Benzodiazepines Ql (U) Negative < 200 ng/mL [facility] Work Phone: Cannabinoids Screen Ql (U) Negative < 50 ng/mL [facility] Work Phone: Cocaine Ql (U) Negative < 300 ng/mL [facility] Work Phone: Opiates Ql (U) Negative < 300 ng/mL [facility] Work Phone: No Panel Informationon 11-03 MDMA (Ecstasy) Screen Negative < 500 ng/mL [facility] Work Phone: Urine Barbiturates Screen Negative < 200 ng/mL [facility] Work Phone: Urine Drug Screen Comment [facility] Work Phone: Comment on above: CONFIRMATORY [...] Urine Methadone Screen Negative < 300 ng/mL [facility] Work Phone: Urine phencyclidine (PCP) de tectionon 11-03-2021 Phencyclidine Ql (U) Negative < 25 ng/mL [facility] Work Phone: Absolute lymphocyte counton 09-13-2021 Lymphocytes Auto (Unsp spec) [#/Vol] 1.80 10*3/uL 0.83-4.51 [facility] Work Phone: Basophil percentageon 2021 Basophils/100 WBC (Bld) 0.4 % 0-1 [facility] Work Phone: Chloride [Moles/Vol] 107 mmol/L 98-107 [facility] Work Phone: Eosinophils/100 WBC (Bld) 3.9 % 0-5 [facility] Work Phone: Glucose [Mass/Vol] 78 mg/dL 74-106 [facility] Work Phone: Neutrophils (Bld) [#/Vol] 5.6 10*3/uL 2.0-7.7 [facility] Work Phone: Neutrophils/100 WBC (Bld) 67.2 % 47-70 [facility] Work Phone: Potassium [Moles/Vol] 4.0 mmol/L 3.5-5.1 [facility] Work Phone: Sodium [Moles/Vol] 136 mmol/L 136-145 [facility] Work Phone: WBC (Bld) [#/Vol] 8.3 10*3/uL 4.4-11.0 [facility] Work Phone: Blood erythrocytes count (nu mber/volume)on 09-13-2021 RBC (Bld) [#/Vol] 4.28 10*6/uL 4.2-5.4 [facility] [place] Work Phone: Blood hemoglobin measurement (mass/volume)on 09-13-2021 Hemoglobin (Bld) [Mass/Vol] 11.6 g/dL 12.0-15.0 [facility] Work Phone: Blood lymphocytes/100 leukoc yteson 03-24-2022 Lymphocytes/100 WBC (Bld) 21.8 % 19-41 [facility] Work Phone: Blood monocytes/100 leukocyt eson 09-13-2021 Monocytes/100 WBC (Bld) 6.1 % 0-10 [facility] Work Phone: Blood platelet mean volumeon 09-13-2021 Platelet mean volume (Bld) [Entitic vol] 10.7 fL 6.2-12.0 [facility] Work Phone: [phone] Determination of erythrocyte mean corpuscular volume (MCV)on 09-13-2021 MCV (RBC) [Entitic vol] 83.2 fL 81-99 [facility] Work Phone: [phone] Hematocrit Auto (Bld) [Volum e fraction]on 09-13-2021 Hematocrit (Bld) [Volume fraction] 35.6 % 37-47 [facility] Work Phone: [phone] Laboratory - Chemistry and C hemistry - challengeon 09-13-2021 CO2 [Moles/Vol] 26.0 mmol/L 21.0-32.0 [facility] Work Phone: [phone] Urea nitrogen/Creatinine [Mass ratio] 14.5 mg/mg 10-20 [facility] Work Phone: [phone] Laboratory - Hematology and Cell countson 09-13-2021 Erythrocyte distribution width (RBC) [Entitic vol] 47.2 fL 35.1-43.9 [facility] Work Phone: [phone] Erythrocyte distribution width (RBC) [Ratio] 15.8 % 11.6-14.6 [facility] Work Phone: [phone] Immature granulocytes/100 WBC (Bld) 0.600 % 0.0-0.9 [facility] Work Phone: [phone] Comment on above: IG% - Immature Granu locytes (promyelocytes, myelocytes and metamyelocytes) > 1% indicates that a LEFT SHIFT is Present. MCH (RBC) [Entitic mass] 27.1 pg 27.0-32.0 [facility] Work Phone: [phone] Nucleated RBC/100 WBC (Bld) [Ratio] 0 % 0-5 [facility] Work Phone: MCHC Auto (RBC) [Mass/Vol]on 09-13-2021 MCHC (RBC) [Mass/Vol] 32.6 g/dL 32-36 [facility] Work Phone: No Panel Informationon 09-13 Estimated Creatinine Clearance Calc 141.92 ml/min [facility] Work Phone: Estimated GFR (MDRD) Amer 174 mL/min >60 [facility] Work Phone: Comment on above: GFR Calc Estimated GFR (MDRD) Non-Af Amer 144 mL/min >60 [facility] Work Phone: Comment on above: Non- GFR Calc Platelets bldon 09-13-2021 Platelets (Bld) [#/Vol] 190 10*3/uL 150-450 [facility] Work Phone: Serum or plasma calcium roopa urement (mass/volume)on 09-13-2021 Calcium [Mass/Vol] 8.9 mg/dL 8.5-10.1 [facility] Work Phone: Serum or plasma creatinine m easurement (mass/volume)on 09-13-2021 Creatinine [Mass/Vol] 0.55 mg/dL 0.55-1.02 [facility] Work Phone: Comment on above: The validity of the calculated GFR & GFRAA in patients over 70 years has not been determined. Clinical correlation is essential. Serum or plasma urea nitroge n measurement (mass/volume)on 09-13-2021 Urea nitrogen [Mass/Vol] 8 mg/dL 7-18 [facility] Work Phone: Thin prep Papanicolaou smear with manual screeningon 09-13-2021 Thin prep Papanicolaou smear with manual screening 3 5-15 [facility] Work Phone: Absolute lymphocyte counton 08-01-2021 Lymphocytes Auto (Unsp spec) [#/Vol] 1.99 10*3/uL 0.83-4.51 [facility] Work Phone: Basophil percentageon 2021 Basophils/100 WBC (Bld) 0.4 % 0-1 [facility] Work Phone: Eosinophils/100 WBC (Bld) 4.4 % 0-5 [facility] Work Phone: Neutrophils (Bld) [#/Vol] 4.4 10*3/uL 2.0-7.7 [facility] Work Phone: Neutrophils/100 WBC (Bld) 60.7 % 47-70 [facility] Work Phone: WBC (Bld) [#/Vol] 7.2 10*3/uL 4.4-11.0 [facility] Work Phone: [phone] Bilirubin Test strip Ql (U)o n 08-01-2021 Bilirubin Ql (U) Negative Negative [facility] Work Phone: [phone] Blood erythrocytes count (nu mber/volume)on 08-01-2021 RBC (Bld) [#/Vol] 4.52 10*6/uL 4.2-5.4 [facility] [place] Work Phone: [phone] Blood hemoglobin measurement (mass/volume)on 08-01-2021 Hemoglobin (Bld) [Mass/Vol] 12.2 g/dL 12.0-15.0 [facility] Work Phone: Blood lymphocytes/100 leukoc yteson 08-01-2021 Lymphocytes/100 WBC (Bld) 27.6 % 19-41 [facility] Work Phone: Blood monocytes/100 leukocyt eson 08-01-2021 Monocytes/100 WBC (Bld) 6.5 % 0-10 [facility] Work Phone: Blood platelet mean volumeon 08-01-2021 Platelet mean volume (Bld) [Entitic vol] 11.8 fL 6.2-12.0 [facility] Work Phone: [phone] Culture, urineon 08-01-2021 Bacteria identified Cx Nom (U) Positive [facility] Work Phone: Determination of erythrocyte mean corpuscular volume (MCV)on 08-01-2021 MCV (RBC) [Entitic vol] 80.5 fL 81-99 [facility] Work Phone: HIV 1 and HIV-2 antibody ass ay with HIV-1 p24 antigen detectionon 08-01-2021 HIV 1+2 Ab+HIV1 p24 Ag IA Ql Non-Reactive Nonreactive [facility] Work Phone: Hematocrit Auto (Bld) [Volum e fraction]on 08-01-2021 Hematocrit (Bld) [Volume fraction] 36.4 % 37-47 [facility] Work Phone: Ketones Test strip Ql (U)on 08-01-2021 Ketones Ql (U) Negative Negative [facility] Work Phone: Laboratory - Drug toxicology on 08-01-2021 Amphetamines Ql (U) Negative [facility] [place] Work Phone: Benzodiazepines Ql (U) Negative [facility] Work Phone: Cannabinoids Screen Ql (U) Negative [facility] Work Phone: Cocaine Ql (U) Negative [facility] Work Phone: Opiates Ql (U) Negative [facility] Work Phone: Laboratory - Hematology and Cell countson 08-01-2021 Erythrocyte distribution width (RBC) [Entitic vol] 47.8 fL 35.1-43.9 [facility] Work Phone: Erythrocyte distribution width (RBC) [Ratio] 16.2 % 11.6-14.6 [facility] Work Phone: Immature granulocytes/100 WBC (Bld) 0.400 % 0.0-0.9 [facility] Work Phone: Comment on above: IG% - Immature Granu locytes (promyelocytes, myelocytes and metamyelocytes) > 1% indicates that a LEFT SHIFT is Present. MCH (RBC) [Entitic mass] 27.0 pg 27.0-32.0 [facility] Work Phone: Nucleated RBC/100 WBC (Bld) [Ratio] 0 % 0-5 [facility] Work Phone: MCHC Auto (RBC) [Mass/Vol]on 08-01-2021 MCHC (RBC) [Mass/Vol] 33.5 g/dL 32-36 [facility] Work Phone: Nitrite Test strip Ql (U)on 08-01-2021 Nitrite Ql (U) Negative Negative [facility] Work Phone: No Panel Informationon 08-01 Hepatitis B Surface Antigen Non-Reactive Nonreactive [facility] Work Phone: Hepatitis C Antibody Non-Reactive Nonreactive [facility] Work Phone: Comment on above: Non Reactive: < 0.8 Equivocal: >/= 0.8 to < 1.0 Reactive: >/= 1.0The CDC recommends that a reactive/equivocal HCV antibody result be followed up by the HCV Nucleic Acid Amplificationtest (907068) Rubella IgG Antibody Reactive Nonreactive [facility] Work Phone: Comment on above: Antibody Results Int erpretation of Immune Status Non Reactive Presumed Non-Immune Equivocal Equivocal Reactive Presumed Immune Thyroid Stimulating Hormone (TSH) 0.43 uIU/mL 0.358-3.74 [facility] Work Phone: Urine Barbiturates Screen Negative [facility] Work Phone: Urine Drug Screen Comment [facility] Work Phone: Comment on above: CONFIRMATORY [...] USE TESTMNEMONIC: [facility] Urine Methadone Screen Negative [facility] Work Phone: [phone] Urine Methamphetamine-MDMA Screen Negative [facility] Work Phone: [phone] Platelets bldon 08-01-2021 Platelets (Bld) [#/Vol] 208 10*3/uL 150-450 [facility] Work Phone: [phone] Protein Test strip Ql (U)on 08-01-2021 Protein Ql (U) Negative Negative [facility] Work Phone: [phone] Serum Treponema species anti body detectionon 08-01-2021 Treponema sp Ab Ql (S) Non-Reactive [facility] Work Phone: [phone] Urine blood detectionon - RBC Ql (U) Negative Negative [facility] Work Phone: [phone] Urine clarityon 08-01-2021 Clarity (U) Sl. Cloudy Clear [facility] Work Phone: [phone] Urine color determinationon 08-01-2021 Color (U) Yellow Yellow [facility] Work Phone: [phone] Urine glucose detectionon Glucose Ql (U) Normal mg/dl Normal [facility] Work Phone: [phone] Urine leukocyte esterase det ection by dipstickon 08-01-2021 Leukocyte esterase Test strip Ql (U) 100 /ul Negative [facility] Work Phone: [phone] Urine pHon 08-01-2021 pH (U) 8.0 [pH] [facility] Work Phone: [phone] Urine phencyclidine (PCP) de tectionon 08-01-2021 Phencyclidine Ql (U) Negative [facility] Work Phone: [phone] Urine specific gravity measu rementon 08-01-2021 Specific gravity (U) [Rel density] 1.015 [facility] Work Phone: [phone] Urobilinogen Auto test strip Ql (U)on 08-01-2021 Urobilinogen Ql (U) Normal mg/dl Normal [facility] Work Phone: No Panel Informationon 07-19 POC SARS CoV-2 Antigen Negative [facility] Work Phone: Serum or plasma choriogonado tropin detectionon 07-09-2021 HCG ( test) Ql 7[address]80 mIU/mL <4 [facility] Work Phone: Comment on above: hCG levels with Gest ational AgeGestational Age hCG mIU/mL (IU/L)0.2 - 1 week 5 - 501-2 weeks 50 - 5002-3 weeks 100 - 11773-9 weeks 500 - 758979-3 weeks 1000 - 956122-8 weeks 14508 - 100,0006-8 weeks 46800 - 200,0002-3 months 95790 - 100,000 No Panel Information Group B Streptococcus Culture Group B Beta Streptococcus is not isolated. [facility] Work Phone: Vital Signs Date Time Vital Sign Value Performing Clinician Facility 01-28-2025 10:32-0400 Body height 165.[address] David Mckinney MD Work Phone: [facility] 01-12-2025 09:53-0400 Body mass index (BMI) [Ratio] 28.12 kg/m2 Sarah Solomon MD Work Phone: [facility] [place] 01-12-2025 09:53-0400 Body weight 76.66 kg Sarah Solomon MD Work Phone: [facility] [place] 01-12-2025 09:53-0400 Diastolic blood pressure 70 mm[Hg] Sarah Solomon MD Work Phone: [facility] [place] 01-12-2025 09:53-0400 Systolic blood pressure 108 mm[Hg] Sarah Solomon MD Work Phone: [facility] [place] 12-31-2024 13:21-0400 Body mass index (BMI) [Ratio] 26.63 kg/m2 Soy Cassidy MD Work Phone: [facility] [place] 12-31-2024 13:21-0400 Body weight 72.58 kg Soy Cassidy MD Work Phone: [facility] [place] 12-31-2024 13:21-0400 Diastolic blood pressure 88 mm[Hg] Soy Cassidy MD Work Phone: [facility] [place] 12-31-2024 13:21-0400 Systolic blood pressure 128 mm[Hg] Soy Cassidy MD Work Phone: [facility] [place] 12-11-2024 13:47-0400 Body height 165.[address] David Mckinney MD Work Phone: [facility] 12-11-2024 13:47-0400 Body mass index (BMI) [Ratio] 28.6 kg/m2 Dr. David Mckinney MD Work Phone: [facility] 12-11-2024 13:47-0400 Body temperature 98.8 [degF] Dr. David Mckinney MD Work Phone: [facility] 12-11-2024 13:47-0400 Body weight 78.[address] David Mckinney MD Work Phone: [facility] 12-11-2024 13:47-0400 Diastolic blood pressure 79 mm[Hg] Dr. David Mckinney MD Work Phone: [facility] 12-11-2024 13:47-0400 Heart rate 93 /min Dr. David Mckinney MD Work Phone: [facility] 12-11-2024 13:47-0400 Respiratory rate 16 /min Dr. David Mckinney MD Work Phone: [facility] 12-11-2024 13:47-0400 SaO2% (BldA) [Mass fraction] 99 % Dr. David Mckinney MD Work Phone: [facility] 12-11-2024 13:47-0400 Systolic blood pressure 132 mm[Hg] Dr. David Easton Work Phone: [facility] 11-18-2024 13:12-0400 Body height 165.1 cm Johana Plotts [employer].CNM Work Phone: [facility] [place] 11-18-2024 13:12-0400 Body mass index (BMI) [Ratio] 26.79 kg/m2 Johana Turner [employer]CHO[employer].CNM Work Phone: [facility] [place] 11-18-2024 13:12-0400 Body weight 73.03 kg Johana Turner [employer]IGH [employer]CHO[employer].CNM Work Phone: [facility] [place] 11-18-2024 13:12-0400 Diastolic blood pressure 82 mm[Hg] Johana Turner [employer].CNM Work Phone: [facility] [place] 11-18-2024 13:12-0400 Systolic blood pressure 118 mm[Hg] Johana Turner [employer]CHO[employer].CNM Work Phone: [facility] [place] 10-12-2024 01:32-0400 Diastolic blood pressure 89 mm[Hg] Dr. David Mckinney MD Work Phone: [facility] 10-12-2024 01:32-0400 Heart rate 83 /min Dr. David Mckinney MD Work Phone: [facility] 10-12-2024 01:32-0400 Respiratory rate 12 /min Dr. David Mckinney MD Work Phone: [facility] 10-12-2024 01:32-0400 SaO2% (BldA) [Mass fraction] 97 % Dr. David Mckinney MD Work Phone: [facility] 10-12-2024 01:32-0400 Systolic blood pressure 136 mm[Hg] Dr. David Easton Work Phone: [facility] 10-11-2024 23:39-0400 Body height 165.[address] David Mckinney MD Work Phone: [facility] 10-11-2024 23:39-0400 Body mass index (BMI) [Ratio] 26.7 kg/m2 Dr. David Mckinney MD Work Phone: [facility] 10-11-2024 23:39-0400 Body temperature 97.8 [degF] Dr. David Mckinney MD Work Phone: [facility] 10-11-2024 23:39-0400 Body weight 72.[address] David Mckinney MD Work Phone: 3(713)474-442058 [place] [address] 10-02-2024 23:04-0400 Body temperature 96.8 [degF] Dr. David Mckinney MD Work Phone: [phone])136-17[address] [place] [address] 10-02-2024 23:04-0400 Diastolic blood pressure 80 mm[Hg] Dr. David Mckinney MD Work Phone: 6(740)196-698991 [place] [address] 10-02-2024 23:04-0400 Heart rate 100 /min Dr. David Mckinney MD Work Phone: [phone])281-902791 [place] [address] 10-02-2024 23:04-0400 Respiratory rate 16 /min Dr. David Mckinney MD Work Phone: 8(108)244-702891 [place] [address] 10-02-2024 23:04-0400 SaO2% (BldA) [Mass fraction] 98 % Dr. David Mckinney MD Work Phone: [phone])477-866891 [place] [address] 10-02-2024 23:04-0400 Systolic blood pressure 132 mm[Hg] Dr. David Easton Work Phone: 0(987)424-343158 [place] [address] 10-02-2024 22:37-0400 Body height 165.[address] David Mckinney MD Work Phone: 9(690)710-984291 [place] [address] 10-02-2024 22:37-0400 Body mass index (BMI) [Ratio] 26.1 kg/m2 Dr. David Mckinney MD Work Phone: 6(599)503-937458 [place] [address] 10-02-2024 22:37-0400 Body weight 71.[address] David Mckinney MD Work Phone: 7(073)458-226691 [place] [address] 09-16-2024 14:38-0400 Body mass index (BMI) [Ratio] 27.88 kg/m2 Hortencia Gould APRN.CNP Work Phone: [facility] [place] 09-16-2024 14:38-0400 Body weight 73.66 kg Hortencia Gould HIGH SCHOOL COACH.LEGAL ADVISOR Work Phone: [facility] [place] 09-16-2024 14:38-0400 Diastolic blood pressure 65 mm[Hg] Hortencia Gould HIGH SCHO[employer] COACH.LEGAL ADVISOR Work Phone: [facility] [place] 09-16-2024 14:38-0400 Systolic blood pressure 106 mm[Hg] Hortencia Gould HIGH SCHOOL COACH.LEGAL ADVISOR Work Phone: [facility] [place] 07-29-2024 13:20-0500 Body height 162.6 cm Sharda Anjum HIGH SCHOOL COACH.LEGAL ADVISOR Work Phone: [facility] [place] 07-29-2024 13:20-0500 Body mass index (BMI) [Ratio] 29.01 kg/m2 Sharda Anjum HIGH SCHOOL COACH.LEGAL ADVISOR Work Phone: [facility] [place] 07-29-2024 13:20-0500 Body weight 76.66 kg Sharda Anjum HIGH SCHOOL COACH.LEGAL ADVISOR Work Phone: [facility] [place] 07-29-2024 13:20-0500 Diastolic blood pressure 76 mm[Hg] Sharda Dallas [employer]IGH SCHO[employer] COACH.LEGAL ADVISOR Work Phone: [facility] [place] 07-29-2024 13:20-0500 Systolic blood pressure 112 mm[Hg] Sharda Dallas HIGH SCHOOL COACH.LEGAL ADVISOR Work Phone: [facility] [place] 07-01-2024 11:22-0500 Body mass index (BMI) [Ratio] 28.97 kg/m2 Jeanette Patel MD Work Phone: [facility] [place] 07-01-2024 11:22-0500 Body weight 76.57 kg Jeanette Patel MD Work Phone: [facility] [place] 07-01-2024 11:22-0500 Diastolic blood pressure 84 mm[Hg] Jeanette Patel MD Work Phone: [facility] [place] 07-01-2024 11:22-0500 Systolic blood pressure 120 mm[Hg] Jeanette Patel MD Work Phone: [facility] [place] 06-19-2024 14:07-0500 Diastolic blood pressure 86 mm[Hg] Dr. David Mckinney MD Work Phone: [facility] 06-19-2024 14:07-0500 Heart rate 76 /min Dr. David Mckinney MD Work Phone: [facility] 06-19-2024 14:07-0500 Systolic blood pressure 135 mm[Hg] Dr. David Easton Work Phone: [facility] 06-19-2024 14:00-0500 Body temperature 98 [degF] Dr. David Mckinney MD Work Phone: [facility] 06-19-2024 14:00-0500 Respiratory rate 16 /min Dr. David Mckinney MD Work Phone: [facility] 06-19-2024 04:05-0500 SaO2% (BldA) [Mass fraction] 97 % Dr. David Mckinney MD Work Phone: [facility] 06-17-2024 11:34-0500 Body mass index (BMI) [Ratio] 31.7 kg/m2 Dr. David Mckinney MD Work Phone: [facility] 06-17-2024 11:34-0500 Body weight 86.[address] David Mckinney MD Work Phone: [facility] 06-17-2024 08:46-0500 Body mass index (BMI) [Ratio] 32.61 kg/m2 Nst Wstr Work Phone: [facility] [place] 06-17-2024 08:46-0500 Body weight 86.18 kg Nst Wstr Work Phone: [facility] [place] 06-17-2024 08:46-0500 Diastolic blood pressure 88 mm[Hg] Nst Wstr Work Phone: [facility] [place] 06-17-2024 08:46-0500 Systolic blood pressure 131 mm[Hg] Nst Wstr Work Phone: [facility] [place] 06-11-2024 10:53-0500 Body mass index (BMI) [Ratio] 33.3 kg/m2 Sarah Solomon MD Work Phone: [facility] [place] 06-11-2024 10:53-0500 Body weight 88 kg Sarah Solomon MD Work Phone: [facility] [place] 06-11-2024 10:53-0500 Diastolic blood pressure 82 mm[Hg] Sarah Solomon MD Work Phone: [facility] [place] 06-11-2024 10:53-0500 Systolic blood pressure 124 mm[Hg] Sarah Solomon MD Work Phone: [facility] [place] 06-03-2024 13:57-0500 Body mass index (BMI) [Ratio] 33.47 kg/m2 Halle Haury [employer]IGH SCHOOL COACH.LEGAL ADVISOR Work Phone: [facility] [place] 06-03-2024 13:57-0500 Body weight 88.45 kg Halle Haury HIGH SCHOOL COACH.LEGAL ADVISOR Work Phone: [facility] [place] 06-03-2024 13:57-0500 Diastolic blood pressure 83 mm[Hg] Halle Haury HIGH SCHOOL COACH.LEGAL ADVISOR Work Phone: [facility] [place] 06-03-2024 13:57-0500 Systolic blood pressure 121 mm[Hg] Halle Haury HIGH SCHOOL COACH.LEGAL ADVISOR Work Phone: [facility] [place] 05-25-2024 13:29-0500 Body mass index (BMI) [Ratio] 33.64 kg/m2 Jeanette Patel MD Work Phone: [facility] [place] 05-25-2024 13:29-0500 Body weight 88.91 kg Jeanette Patel MD Work Phone: [facility] [place] 05-25-2024 13:29-0500 Diastolic blood pressure 79 mm[Hg] Jeanette Patel MD Work Phone: [facility] [place] Comment on above: machine (LT) arm 05-25-2024 13:29-0500 Systolic blood pressure 122 mm[Hg] Jeanette Patel MD Work Phone: [facility] Comment on above: machine (LT) arm 05-12-2024 15:35-0500 Body mass index (BMI) [Ratio] 31.93 kg/m2 Sarah Solomon MD Work Phone: [facility] [place] 05-12-2024 15:35-0500 Body weight 84.37 kg Sarah Solomon MD Work Phone: [facility] [place] 05-12-2024 15:35-0500 Diastolic blood pressure 74 mm[Hg] Sarah Solomon MD Work Phone: [facility] [place] 05-12-2024 15:35-0500 Systolic blood pressure 110 mm[Hg] Sarah Solomon MD Work Phone: [facility] [place] 04-28-2024 13:36-0500 Body mass index (BMI) [Ratio] 31.76 kg/m2 Margarita Alcala MD Work Phone: [facility] [place] 04-28-2024 13:36-0500 Body weight 83.92 kg Margarita Alcala MD Work Phone: [facility] [place] 04-28-2024 13:36-0500 Diastolic blood pressure 78 mm[Hg] Margarita Alcala MD Work Phone: [facility] [place] 04-28-2024 13:36-0500 Systolic blood pressure 122 mm[Hg] Margarita Alcala MD Work Phone: [facility] [place] 04-14-2024 10:28-0400 Body mass index (BMI) [Ratio] 30.97 kg/m2 Margarita Alcala MD Work Phone: [facility] [place] 04-14-2024 10:28-0400 Body weight 81.83 kg Margarita Alcala MD Work Phone: [facility] [place] 04-14-2024 10:28-0400 Diastolic blood pressure 62 mm[Hg] Margarita Alcala MD Work Phone: [facility] [place] 04-14-2024 10:28-0400 Systolic blood pressure 100 mm[Hg] Margarita Alcala MD Work Phone: [facility] [place] 04-02-2024 16:17-0400 Body mass index (BMI) [Ratio] 30.73 kg/m2 Marcela Connors [employer]IGH [employer]CHO[employer] COACH.CNM Work Phone: [facility] [place] 04-02-2024 16:17-0400 Body weight 81.19 kg Marcela Waylon [employer]CHOOL COACH.CNM Work Phone: [facility] [place] 04-02-2024 16:17-0400 Diastolic blood pressure 68 mm[Hg] Marcela Connors [employer]CHO[employer] COACH.CNM Work Phone: [facility] [place] 04-02-2024 16:17-0400 Systolic blood pressure 116 mm[Hg] Marcelabria Connors HIGH SCHO[employer] COACH.CNM Work Phone: [facility] [place] 03-17-2024 15:01-0400 Body mass index (BMI) [Ratio] 30.04 kg/m2 Jt Lugo MD Work Phone: [facility] [place] 03-17-2024 15:01-0400 Body weight 79.38 kg Jt Lugo MD Work Phone: [facility] [place] 03-17-2024 15:01-0400 Diastolic blood pressure 62 mm[Hg] Jt Lugo MD Work Phone: [facility] [facility] [place] 03-17-2024 15:01-0400 Systolic blood pressure 114 mm[Hg] Jt Lugo MD Work Phone: [facility] [place] 02-17-2024 11:06-0400 Body mass index (BMI) [Ratio] 29.7 kg/m2 Margarita Alcala MD Work Phone: [facility] [place] 02-17-2024 11:06-0400 Body weight 78.47 kg Margarita Alcala MD Work Phone: [facility] [place] 02-17-2024 11:06-0400 Diastolic blood pressure 76 mm[Hg] Margartia Alcala MD Work Phone: [facility] [place] 02-17-2024 11:06-0400 Systolic blood pressure 116 mm[Hg] Margarita Alcala MD Work Phone: [facility] [place] 02-17-2024 08:30-0400 Body mass index (BMI) [Ratio] 29.7 kg/m2 Tyler Farrell MD Work Phone: [facility] [place] 02-17-2024 08:30-0400 Body weight 78.47 kg Tyler Farrell MD Work Phone: [facility] [place] 02-17-2024 08:30-0400 Diastolic blood pressure 76 mm[Hg] Tyler Easton Work Phone: [facility] [place] 02-17-2024 08:30-0400 Systolic blood pressure 116 mm[Hg] Tyler Farrell MD Work Phone: [facility] [place] 01-20-2024 14:48-0400 Body weight 80.2872 kg SHARDA VALERO [facility] Comment on above: Order Comment: Specimen Type: BLOOD SPEC IMENOrdering Facility: [facility] Address: [address] [place] [address] Performed By: #### S EQ2 ####[facility] [id number] [place] [address] 01-20-2024 14:21-0400 Body mass index (BMI) [Ratio] 29.18 kg/m2 Sarah Solomon MD Work Phone: [facility] [place] 01-20-2024 14:21-0400 Body weight 77.11 kg Sarah Solomon MD Work Phone: [facility] [place] 01-20-2024 14:21-0400 Diastolic blood pressure 78 mm[Hg] Sarah Solomon MD Work Phone: [facility] [place] 01-20-2024 14:21-0400 Systolic blood pressure 114 mm[Hg] Sarah Solomon MD Work Phone: [facility] [place] 01-01-2024 09:55-0400 Body mass index (BMI) [Ratio] 30.38 kg/m2 Jeanette Patel MD Work Phone: [facility] [place] 01-01-2024 09:55-0400 Body weight 80.29 kg Jeanette Patel MD Work Phone: [facility] [place] 01-01-2024 09:55-0400 Diastolic blood pressure 68 mm[Hg] Jeanette Patel MD Work Phone: [facility] [place] 01-01-2024 09:55-0400 Systolic blood pressure 110 mm[Hg] Jeanette Patel MD Work Phone: [facility] [place] 12-01-2023 12:02-0400 Body mass index (BMI) [Ratio] 30.73 kg/m2 Tyshawn Lorenzana MD Work Phone: [facility] [place] 12-01-2023 12:02-0400 Body weight 81.19 kg Tyshawn Lorenzana MD Work Phone: [facility] [place] 12-01-2023 12:02-0400 Diastolic blood pressure 76 mm[Hg] Tyshawn Lorenzana MD Work Phone: [facility] [place] 12-01-2023 12:02-0400 Systolic blood pressure 112 mm[Hg] Tyshawn Lorenzana MD Work Phone: [facility] [place] 11-13-2023 14:35-0400 Body height 162.6 cm Sharda Dallas HIGH SCHOOL COACH.LEGAL ADVISOR Work Phone: [facility] [place] 11-13-2023 14:35-0400 Body mass index (BMI) [Ratio] 30.52 kg/m2 Sharda Anjum HIGH SCHOOL COACH.LEGAL ADVISOR Work Phone: [facility] [place] 11-13-2023 14:35-0400 Body weight 80.65 kg Sharda Dallas HIGH SCHOOL COACH.LEGAL ADVISOR Work Phone: [facility] [place] 11-13-2023 14:35-0400 Diastolic blood pressure 80 mm[Hg] Sharda Dallas HIGH SCHOOL COACH.LEGAL ADVISOR Work Phone: [facility] [place] 11-13-2023 14:35-0400 Systolic blood pressure 120 mm[Hg] Sharda Dallas HIGH SCHOOL COACH.LEGAL ADVISOR Work Phone: [facility] [place] 08-10-2023 12:47-0500 Body temperature 98.1 [degF] [facility] 08-10-2023 12:47-0500 Diastolic blood pressure 87 mm[Hg] [facility] 08-10-2023 12:47-0500 Heart rate 62 /min [facility] 08-10-2023 12:47-0500 Respiratory rate 14 /min [facility] 08-10-2023 12:47-0500 SaO2% (BldA) [Mass fraction] 100 % [facility] 08-10-2023 12:47-0500 Systolic blood pressure 124 mm[Hg] [facility] 08-10-2023 10:18-0500 Body height 167.64 cm [facility] 08-10-2023 10:18-0500 Body mass index (BMI) [Ratio] 30.2 kg/m2 [facility] 08-10-2023 10:18-0500 Body weight 84.91 kg [facility] 07-17-2023 15:42-0500 Body height 167.64 cm [facility] 07-17-2023 15:42-0500 Body mass index (BMI) [Ratio] 30.1 kg/m2 [facility] 07-17-2023 15:42-0500 Body temperature 97.6 [degF] [facility] 07-17-2023 15:42-0500 Body weight 84.68 kg [facility] 07-17-2023 15:42-0500 Diastolic blood pressure 87 mm[Hg] [facility] 07-17-2023 15:42-0500 Heart rate 89 /min [facility] 07-17-2023 15:42-0500 Respiratory rate 18 /min [facility] 07-17-2023 15:42-0500 SaO2% (BldA) [Mass fraction] 100 % [facility] 07-17-2023 15:42-0500 Systolic blood pressure 121 mm[Hg] [facility] 06-10-2023 10:55-0500 Body height 167.64 cm [facility] 06-10-2023 10:55-0500 Body mass index (BMI) [Ratio] 29.4 kg/m2 [facility] 06-10-2023 10:55-0500 Body temperature 97.1 [degF] [facility] 06-10-2023 10:55-0500 Body weight 82.59 kg [facility] 06-10-2023 10:55-0500 Diastolic blood pressure 82 mm[Hg] [facility] 06-10-2023 10:55-0500 Heart rate 74 /min [facility] 06-10-2023 10:55-0500 Respiratory rate 16 /min [facility] 06-10-2023 10:55-0500 SaO2% (BldA) [Mass fraction] 100 % [facility] 06-10-2023 10:55-0500 Systolic blood pressure 118 mm[Hg] [facility] 05-11-2023 17:06-0500 Body height 167.64 cm [facility] 05-11-2023 17:06-0500 Body mass index (BMI) [Ratio] 29.5 kg/m2 [facility] 05-11-2023 17:06-0500 Body temperature 97.5 [degF] [facility] 05-11-2023 17:06-0500 Body weight 83 kg [facility] 05-11-2023 17:06-0500 Diastolic blood pressure 98 mm[Hg] [facility] 05-11-2023 17:06-0500 Heart rate 101 /min [facility] 05-11-2023 17:06-0500 Respiratory rate 16 /min [facility] 05-11-2023 17:06-0500 SaO2% (BldA) [Mass fraction] 98 % [facility] 05-11-2023 17:06-0500 Systolic blood pressure 119 mm[Hg] [facility] 02-24-2023 15:52-0400 Body height 167.64 cm [facility] 02-24-2023 15:52-0400 Body mass index (BMI) [Ratio] 29 kg/m2 [facility] 02-24-2023 15:52-0400 Body temperature 97.3 [degF] [facility] 02-24-2023 15:52-0400 Body weight 81.78 kg [facility] 02-24-2023 15:52-0400 Diastolic blood pressure 79 mm[Hg] [facility] 02-24-2023 15:52-0400 Heart rate 106 /min [facility] 02-24-2023 15:52-0400 Respiratory rate 18 /min [facility] 02-24-2023 15:52-0400 SaO2% (BldA) [Mass fraction] 98 % [facility] 02-24-2023 15:52-0400 Systolic blood pressure 120 mm[Hg] [facility] 01-08-2023 16:23-0400 Body temperature 97.8 [degF] [facility] 01-08-2023 16:23-0400 Diastolic blood pressure 76 mm[Hg] [facility] 01-08-2023 16:23-0400 Heart rate 78 /min [facility] 01-08-2023 16:23-0400 Respiratory rate 14 /min [facility] 01-08-2023 16:23-0400 SaO2% (BldA) [Mass fraction] 99 % [facility] 01-08-2023 16:23-0400 Systolic blood pressure 126 mm[Hg] [facility] 01-08-2023 15:15-0400 Body height 167.64 cm [facility] 01-08-2023 15:15-0400 Body mass index (BMI) [Ratio] 29.6 kg/m2 [facility] 01-08-2023 15:15-0400 Body weight 83.27 kg [facility] 06-07-2022 18:58-0500 Body temperature 98.6 [degF] Everardo Patel APRN.LEGAL ADVISOR Work Phone: [facility] [place] 06-07-2022 18:58-0500 Body weight 78.74 kg Everardo Patel APRN.LEGAL ADVISOR Work Phone: [facility] [place] 06-07-2022 18:58-0500 Diastolic blood pressure 84 mm[Hg] Everardo Patel APRN.LEGAL ADVISOR Work Phone: [facility] [place] 06-07-2022 18:58-0500 Heart rate 66 /min Everardo Patel APRN.LEGAL ADVISOR Work Phone: [facility] [place] 06-07-2022 18:58-0500 Respiratory rate 18 /min Everardo Patel APRN.LEGAL ADVISOR Work Phone: [facility] [place] 06-07-2022 18:58-0500 SaO2% (BldA) [Mass fraction] 100 % Everardo Patel APRN.LEGAL ADVISOR Work Phone: [facility] [place] 06-07-2022 18:58-0500 Systolic blood pressure 136 mm[Hg] Everardo Patel APRN.LEGAL ADVISOR Work Phone: [facility] [place] 02-22-2022 16:09-0400 Body temperature 98.7 [degF] [facility] Work Phone: 02-22-2022 16:09-0400 Diastolic blood pressure 77 mm[Hg] [facility] Work Phone: 02-22-2022 16:09-0400 Heart rate 72 /min [facility] Work Phone: 02-22-2022 16:09-0400 Respiratory rate 16 /min [facility] Work Phone: 02-22-2022 16:09-0400 SaO2% (BldA) [Mass fraction] 98 % [facility] Work Phone: 02-22-2022 16:09-0400 Systolic blood pressure 116 mm[Hg] [facility] Work Phone: 02-20-2022 16:39-0400 Body height 165.1 cm [facility] Work Phone: 02-20-2022 16:39-0400 Body mass index (BMI) [Ratio] 33.1 kg/m2 [facility] Work Phone: 02-20-2022 16:39-0400 Body weight 90.26 kg [facility] Work Phone: 02-17-2022 14:57-0400 Heart rate 95 /min [facility] Work Phone: 02-17-2022 14:57-0400 SaO2% (BldA) [Mass fraction] 97 % [facility] Work Phone: 02-17-2022 13:22-0400 Body temperature 98.4 [degF] [facility] Work Phone: 02-17-2022 13:22-0400 Diastolic blood pressure 69 mm[Hg] [facility] Work Phone: 02-17-2022 13:22-0400 Systolic blood pressure 139 mm[Hg] [facility] Work Phone: 02-17-2022 12:53-0400 Body height 165.1 cm [facility] Work Phone: 02-17-2022 12:53-0400 Body mass index (BMI) [Ratio] 33.1 kg/m2 [facility] Work Phone: 02-17-2022 12:53-0400 Body weight 90.26 kg [facility] Work Phone: 12-22-2021 21:18-0400 Body height 165.1 cm [facility] Work Phone: 12-22-2021 21:18-0400 Body mass index (BMI) [Ratio] 31.6 kg/m2 [facility] Work Phone: 12-22-2021 21:18-0400 Body temperature 97.8 [degF] [facility] Work Phone: 12-22-2021 21:18-0400 Body weight 86.18 kg [facility] Work Phone: 12-22-2021 21:18-0400 Diastolic blood pressure 96 mm[Hg] [facility] Work Phone: 12-22-2021 21:18-0400 Heart rate 89 /min [facility] Work Phone: 12-22-2021 21:18-0400 Respiratory rate 16 /min [facility] Work Phone: 12-22-2021 21:18-0400 SaO2% (BldA) [Mass fraction] 97 % [facility] Work Phone: 12-22-2021 21:18-0400 Systolic blood pressure 115 mm[Hg] [facility] Work Phone: 11-22-2021 13:53-0400 Diastolic blood pressure 57 mm[Hg] [facility] Work Phone: 11-22-2021 13:53-0400 Heart rate 91 /min [facility] Work Phone: 11-22-2021 13:53-0400 Systolic blood pressure 123 mm[Hg] [facility] Work Phone: 11-22-2021 13:52-0400 Body temperature 98.2 [degF] [facility] Work Phone: 11-22-2021 13:52-0400 SaO2% (BldA) [Mass fraction] 99 % [facility] Work Phone: 11-22-2021 13:43-0400 Body height 165.1 cm [facility] Work Phone: 11-22-2021 13:43-0400 Body mass index (BMI) [Ratio] 30.7 kg/m2 [facility] Work Phone: 11-22-2021 13:43-0400 Body weight 83.9 kg [facility] Work Phone: 11-04-2021 06:53-0400 Heart rate 80 /min Dr. David Mckinney Work Phone: [facility] Work Phone: 11-04-2021 06:53-0400 SaO2% (BldA) [Mass fraction] 98 % Dr. David Mckinney Work Phone: [facility] Work Phone: 11-04-2021 04:23-0400 Body temperature 97.8 [degF] Dr. David Mckinney Work Phone: [facility] Work Phone: 11-04-2021 04:23-0400 Diastolic blood pressure 57 mm[Hg] Dr. David Mckinney Work Phone: [facility] Work Phone: 11-04-2021 04:23-0400 Systolic blood pressure 106 mm[Hg] Dr. David Mckinney Work Phone: [facility] Work Phone: 11-03-2021 21:27-0400 Body height 165.[address] David Mckinney Work Phone: [facility] Work Phone: 11-03-2021 21:27-0400 Body mass index (BMI) [Ratio] 29.9 kg/m2 Dr. David Mckinney Work Phone: [facility] Work Phone: 11-03-2021 21:27-0400 Body weight 81.[address] David Mckinney Work Phone: [facility] Work Phone: 09-13-2021 14:46-0400 Heart rate 68 /min Dr. David Mckinney Work Phone: [facility] Work Phone: 09-13-2021 14:46-0400 Respiratory rate 16 /min Dr. David Mckinney Work Phone: [facility] Work Phone: 09-13-2021 14:46-0400 SaO2% (BldA) [Mass fraction] 98 % Dr. David Mckinney Work Phone: [facility] Work Phone: 09-13-2021 14:29-0400 Diastolic blood pressure 74 mm[Hg] Dr. David Mckinney Work Phone: [facility] Work Phone: 09-13-2021 14:29-0400 Systolic blood pressure 109 mm[Hg] Dr. David Mckinney Work Phone: [facility] Work Phone: 09-13-2021 11:20-0400 Body mass index (BMI) [Ratio] 27.3 kg/m2 Dr. David Mckinney Work Phone: [facility] Work Phone: 09-13-2021 11:20-0400 Body temperature 98 [degF] Dr. David Mckinney Work Phone: [facility] Work Phone: 09-13-2021 11:20-0400 Body weight 74.[address] David Mckinney Work Phone: [facility] Work Phone: 07-19-2021 09:45-0500 Body mass index (BMI) [Ratio] 27.9 kg/m2 Dr. David Mckinney Work Phone: [facility] Work Phone: 07-19-2021 09:45-0500 Body temperature 98 [degF] Dr. David Mckinney Work Phone: [facility] Work Phone: 07-19-2021 09:45-0500 Body weight 76.[address] David Mckinney Work Phone: [facility] Work Phone: 07-19-2021 09:45-0500 Diastolic blood pressure 72 mm[Hg] Dr. David Mckinney Work Phone: [facility] Work Phone: 07-19-2021 09:45-0500 Heart rate 111 /min Dr. David Mckinney Work Phone: [facility] Work Phone: 07-19-2021 09:45-0500 Respiratory rate 16 /min Dr. David Mckinney Work Phone: [facility] Work Phone: 07-19-2021 09:45-0500 SaO2% (BldA) [Mass fraction] 99 % Dr. David Mckinney Work Phone: [facility] Work Phone: 07-19-2021 09:45-0500 Systolic blood pressure 116 mm[Hg] Dr. David Mckinney Work Phone: [facility] Work Phone: Encounters Encounter Date Encounter Type Care Provider Facility Start: 01-28-2025 End: 01-28-2025 Patient encounter procedure Kale Zimmerman [place] [facility] Work Phone: Start: 01-28-2025 End: 01-28-[address] David Mckinney MD Work Phone: [facility] Start: 01-13-2025 End: 01-13-2025 Telephone encounter Nurse Shot Man [facility] Work Phone: Obstetrics/Gynecology Comment on above: PRAF Start: 01-12-2025 End: 01-12-2025 Patient encounter procedure Sarah Solomon MD Work Phone: OB/Gynecology Comment on above: Encounter for superv ision of high risk in second trimester, antepartum (HCC) (Primary Dx); Chronic hypertension complicating or reason for care during childbirth (HCC); Late care (HCC); History of gestational hypertension; History of drug abuse (HCC); Vapes nicotine containing substance; 20 weeks gestation of (HCC) Encounter for umma arnel screening for malformation using ultrasound (HCC) (Primary Dx); 20 weeks gestation of (HCC) Start: 01-12-2025 End: 01-12-2025 ambulatory SARAH SOLOMON Facility:[facility] Start: 01-10-2025 End: 01-10-2025 ambulatory SOY CASSIDY Facility:[facility] Start: 12-31-2024 End: 12-31-2024 ambulatory SOY CASSIDY Facility:[facility] Start: 12-31-2024 End: 12-31-2024 Patient encounter procedure Soy Cassidy MD Work Phone: OB/Gynecology Comment on above: History of gestation al hypertension (Primary Dx); History of drug abuse (HCC); Late care (HCC); Encounter for supervision of high risk in second trimester, antepartum (HCC); Vapes nicotine containing substance; Generalized anxiety disorder; 18 weeks gestation of (HCC); Dysuria; Elevated blood pressure reading without diagnosis of hypertension Start: 2024 End: 2024 ambulatory Jo Sweeney RN NURSE ELECTRICAL DESIGNER DRAFTER Comment on above: Headache Start: 12-11-2024 End: 12-11-2024 Emergency department patient visit Dr. David Mckinney MD Work Phone: -Emergency Department Work Phone: Start: 11-25-2024 End: 01-25-2025 Follow-up encounter Johana Turner APRN.CNM Work Phone: OB/Gynecology Start: 11-19-2024 End: 11-19-2024 ambulatory JOHANA TRAN Facility:[facility] Start: 11-19-2024 End: 11-19-2024 Telephone encounter Justin Valentino RN Obstetrics/Gynecolo gy Comment on above: PRAF Start: 11-18-2024 End: 11-18-2024 Patient encounter procedure Johana Turner APRN.CNM Work Phone: OB/Gynecology Comment on above: with uncer tain dates, antepartum (HCC) (Primary Dx); 12 weeks gestation of (HCC); History of gestational hypertension; Late care (HCC); Generalized anxiety disorder; History of drug abuse (HCC); Vapes nicotine containing substance; Encounter for supervision of high risk in second trimester, antepartum (HCC); History of IUFD Start: 11-18-2024 End: 11-18-2024 ambulatory JOHANA TRAN Facility:[facility] Start: 11-11-2024 End: 11-11-2024 ambulatory SHARDA NIEVESF Facility:[facility] Start: 10-22-2024 End: 10-22-2024 E-mail encounter from caregiver Halle Orellana APRN.CNP Work Phone: OB/Gynecology Start: 10-22-2024 End: 10-22-2024 Patient encounter procedure Halle Orellana APRN.CNP Work Phone: OB/Gynecology Comment on above: New Ob appointment Start: 10-21-2024 End: 10-21-[address] David Mckinney MD Work Phone: [facility] Work Phone: Start: 10-21-2024 End: 10-21-2024 Patient encounter procedure Rizwan Cárdenas DO -Ultrasound, [facility] Work Phone: Start: 10-21-2024 End: 10-21-2024 ambulatory David Mckinney Facility:[facility] Start: 10-11-2024 End: 10-12-2024 Emergency department patient visit Dr. David Mckinney MD Work Phone: -Emergency Department Work Phone: Start: 10-08-2024 End: 10-13-2024 Telephone encounter Margarita Hernandez RN Maternal Medicine Comment on above: Hose Builder - O ther (Initial OB RN CC pool/) Start: 10-02-2024 End: 10-02-2024 Emergency department patient visit Dr. David Mckinney MD Work Phone: -Emergency Department Work Phone: Start: 09-16-2024 End: 09-16-2024 ambulatory SHARDA BEE SPRING Facility:[facility] Start: 09-16-2024 End: 09-16-2024 Patient encounter procedure Hortencia Gould APRN.LEGAL ADVISOR Work Phone: OB/Gynecology Comment on above: Encounter for IUD in sertion (Primary Dx) Start: 08-06-2024 End: 10-06-2024 Follow-up encounter Sharda Valero APRN.LEGAL ADVISOR Work Phone: OB/Gynecology Comment on above: Results Start: 07-29-2024 End: 07-29-2024 ambulatory [facility] Facility:[facility] Start: 07-29-2024 End: 07-29-2024 Patient encounter procedure Sharda Valero APRN.CNP Work Phone: OB/Gynecology Comment on above: care and examination (Primary Dx); Screening for malignant neoplasm of cervix; Encounter for other general counseling or advice on contraception Start: 07-14-2024 Encounter for genera l adult medical examination without abnormal findings Marcela Connors [facility] Start: 07-01-2024 End: 07-01-2024 ambulatory MARGARITA ALCALA Facility:[facility] Start: 07-01-2024 End: 07-01-2024 Patient encounter procedure Jeanette Patel MD Work Phone: OB/Gynecology Comment on above: care and examination immediately after delivery (Primary Dx) Start: 06-18-2024 End: 06-21-2024 ambulatory Margarita Alcala MD Work Phone: OB/Gynecology Comment on above: Ob Delivery Note Start: 06-17-2024 End: 06-19-2024 Evaluation and management of inpatient Johana Turner CNM [facility] Work Phone: Start: 06-17-2024 End: 06-17-2024 ambulatory [facility] Facility:[facility] Start: 06-17-2024 End: 06-17-2024 Patient encounter procedure Johana Ethanbruna HIGH SCHOOL COACH.CNM Work Phone: OB/Gynecology Comment on above: Supervision [...] R ecords Start: 06-14-2024 End: 06-14-2024 ambulatory David Mckinney Facility:[facility] Start: 06-14-2024 End: 06-14-2024 Patient encounter procedure Marcela Connors CN[facility] Work Phone: Start: 06-11-2024 End: 06-11-2024 ambulatory [facility] Facility:[facility] Start: 06-11-2024 End: 06-11-2024 Patient encounter procedure [...] Start: 06-09-2024 End: 06-09-2024 ambulatory Carlos Morales RNfashion stylist Ma in [place] Comment on above: Blood Management Start: 06-04-2024 End: 06-04-2024 ambulatory HALLE ORELLANA Facility:[facility] Start: 06-03-2024 End: 06-03-2024 Patient encounter procedure [...] Start: 06-03-2024 End: 06-03-2024 ambulatory HALLE ORELLANA Facility:[facility] Start: 06-03-2024 End: 06-07-2024 Telephone encounter Halle Orellana APRN.LEGAL ADVISOR Work Phone: OB/Gynecology Comment on above: Results Start: 05-25-2024 End: 05-25-2024 ambulatory JEANETTE PATEL Facility:[facility] Start: 05-25-2024 End: 05-25-2024 Patient encounter procedure Jeanette Patel MD Work Phone: OB/Gynecology Comment on above: Supervision of high risk in third trimester (Primary Dx); 34 weeks gestation of Start: 05-20-2024 End: 05-20-2024 ambulatory Deanna Olivares RN NURSE ELECTRICAL DESIGNER DRAFTER Comment on above: Patient Update Start: 05-12-2024 End: 05-12-2024 Patient encounter procedure Whi Tech 1 Shot Man [facility] Maternal Medicine Comment on [...] Start: 05-12-2024 End: 05-12-2024 ambulatory JT LUGO Facility:[facility] Start: 04-29-2024 End: 04-29-2024 Telephone encounter Margarita Alcala MD Work Phone: OB/Gynecology Start: 04-28-2024 End: 04-28-2024 ambulatory MARGARITA ALCALA Facility:[facility] Start: 04-28-2024 End: 04-28-2024 Office outpatient visit 15 minutes Margarita Alcala MD Work Phone: OB/Gynecology Comment on above: Supervision of high risk in third trimester (Primary Dx); 30 weeks gestation of ; History of IUFD Start: 04-22-2024 End: 04-22-2024 Telephone encounter Johana Turner APRN.CNM Work Phone: OB/Gynecology Comment on above: OB Pain Start: 04-19-2024 End: 04-19-2024 Telephone encounter Nurse Shot Man Shelley Mathews Work Phone: Obstetrics/Gynecology Comment on above: PRAF Start: 04-14-2024 End: 04-14-2024 Patient encounter procedure Shot Man [facility] [employer] [employer] Work Phone: Maternal [...] Start: 04-14-2024 End: 04-14-2024 ambulatory MARGARITA ALCALA Facility:[facility] Start: 04-14-2024 End: 04-14-2024 Office outpatient visit 15 minutes Margarita Alcala MD Work Phone: OB/Gynecology Comment on above: 28 weeks gestation o f (Primary Dx); Supervision of high risk in second trimester; History of IUFD; Need for vaccination Start: 04-13-2024 End: 04-13-2024 ambulatory JT LUGO Facility:[facility] Start: 04-02-2024 End: 04-02-2024 ambulatory MARCELA CONNORS Facility:[facility] Start: 04-02-2024 End: 04-02-2024 Patient encounter procedure Marcela Waylon EPPS Work Phone: OB/Gynecology Comment on above: Supervision of high risk in second trimester (Primary Dx); Abdominal pain during in second trimester; 26 weeks gestation of Start: 03-17-2024 End: 03-17-2024 ambulatory JT LUGO Facility:[facility] Start: 03-17-2024 End: 03-17-2024 Patient encounter procedure Jt Lugo MD Work Phone: OB/Gynecology Comment on above: Supervision of high risk in second trimester (Primary Dx); History of IUFD; History of gestational hypertension; 24 weeks gestation of Encounter for ultras ound to check growth (Primary Dx); History of IUFD; 24 weeks gestation of Start: 02-18-2024 End: 02-18-2024 Telephone encounter Nurse Shot Man Shelley Mathews Work Phone: Obstetrics/Gynecology Comment on above: PRAF Start: 02-17-2024 End: 02-17-2024 Office outpatient visit 15 minutes Margarita Alcala MD Work Phone: OB/Gynecology Comment on above: Encounter for superv ision of other normal in second trimester (Primary Dx); 20 weeks gestation of ; History of IUFD; History of gestational hypertension Start: 02-17-2024 End: 02-17-2024 ambulatory JEANETTE PATEL Facility:[facility] Start: 02-17-2024 End: 02-17-2024 ambulatory TYLER FARRELL Facility:[facility] Start: 02-17-2024 End: 02-17-2024 Patient encounter [...] yaniv Dx) Start: 01-20-2024 End: 01-20-2024 ambulatory JEANETTE PATEL Facility:[facility] Start: 01-20-2024 End: 01-20-2024 Patient encounter procedure [...] Comment on above: Opened In Error Start: 01-01-2024 End: 01-01-2024 Patient encounter procedure [...] above: OB N/V Start: 12-01-2023 End: 12-01-2023 Patient encounter procedure Tyshawn Lorenzana MD Work Phone: OB/Gynecology Comment on above: Encounter for superv ision of normal in multigravida in first trimester (Primary Dx); 9 weeks gestation of Start: 11-14-2023 Telephone encounter Liza Champagne RN Obstetrics/Gynecology Comment on above: PRAF Start: 11-13-2023 End: 11-13-2023 Patient encounter procedure Sharda nAjum RIVERALEGAL ADVISOR Work Phone: OB/Gynecology Comment on above: 6 weeks gestation of (Primary Dx); care, subsequent in first trimester; Encounter for supervision of normal in multigravida in first trimester; History of gestational hypertension; History of IUFD Start: 08-10-2023 End: 08-10-2023 Emergency department patient visit [facility] Work Phone: Start: 07-17-2023 End: 07-17-2023 Emergency department patient visit [facility] Work Phone: Start: 07-04-2023 End: 07-04-2023 ambulatory [facility] Work Phone: Start: 07-04-2023 End: 07-04-2023 Patient encounter procedure [facility] Start: 06-10-2023 End: 06-10-2023 Emergency department patient visit [facility] Work Phone: Start: 05-11-2023 End: 05-11-2023 Emergency department patient visit [facility] Work Phone: Start: 05-01-2023 End: 05-01-2023 ambulatory [facility] Work Phone: Start: 05-01-2023 End: 05-01-2023 Patient encounter procedure [facility] Start: 04-02-2023 End: 04-02-2023 ambulatory [facility] Work Phone: Start: 04-02-2023 End: 04-02-2023 Discharged Recurring [facility] Work Phone: Start: 03-12-2023 End: 03-12-2023 Patient encounter procedure [facility] Work Phone: Start: 02-24-2023 End: 02-24-2023 Emergency department patient visit [facility] Work Phone: Start: 01-08-2023 End: 01-08-2023 Emergency department patient visit [facility] Work Phone: Start: 12-26-2022 End: 12-26-2022 ambulatory [facility] Work Phone: Start: 12-26-2022 End: 12-26-2022 [facility] encounter [facility] Start: 10-30-2022 End: 10-30-2022 ambulatory [facility] Work Phone: Start: 10-30-2022 End: 10-30-2022 Patient encounter procedure [facility], Specimen Start: 08-16-2022 End: 08-16-2022 ambulatory [facility] Work Phone: Start: 08-16-2022 End: 08-16-2022 Patient encounter procedure [facility], Specimen Start: 06-07-2022 End: 06-07-2022 Patient encounter procedure Everardo Patel APRN.[facility] Work Phone: [facility] Comment on above: Acute otitis media, right (Primary Dx); URI, acute Start: 02-20-2022 End: 02-22-2022 Evaluation and management of inpatient [facility] Start: 02-17-2022 End: 02-17-2022 ambulatory [facility] Work Phone: Start: 02-17-2022 End: 02-17-2022 Patient encounter procedure [facility] Outpatients Start: 02-13-2022 End: 02-13-2022 ambulatory [facility] Work Phone: Start: 02-13-2022 End: 02-13-2022 Patient encounter procedure [facility], Specimen Start: 12-23-2021 End: 12-23-2021 Patient encounter procedure [facility] Start: 12-22-2021 End: 12-22-2021 [facility] Start: 12-13-2021 End: 12-13-2021 Patient encounter procedure [facility] [place] ground mixer Off Start: 11-22-2021 End: 11-22-2021 Patient encounter procedure [facility] Outpatients Start: 11-03-2021 End: 11-04-[address] David Mckinney Work Phone: [facility], Outpatients Start: 09-13-2021 End: 09-13-2021 Emergency department patient visit Dr. David Mckinney [facility] Start: 08-01-2021 End: 08-01-[address] David Mckinney Work Phone: [facility] [place] ground mixer Off Start: 07-19-2021 End: 07-19-[address] David Mckinney Work Phone: [facility] Start: 07-09-2021 End: 07-09-[address] David Mckinney Work Phone: [facility] ground mixer Off Procedures Date Procedure Procedure Detail Performing Clinician Start: 01-12-2025 Us preg uterus after 1st trimest 1/1st gestation Johana Turner HIGH SCHO[employer] COACH.CNM Work Phone: Start: 12-11-2024 Urnls dip stick/tabl et reagent auto microscopy Dr. David Mckinney MD Work Phone: Start: 12-11-[address] David Mckinney MD Work Phone: Start: 11-18-2024 Us uterus l imited 1/> fetuses Johana Turner HIGH SCHO[employer] COACH.CNM Work Phone: Start: 11-11-2024 Antibody screen SHARDA Munguia ETCALF Comment on above: Order Comment: Speci men Type: BLOOD SPECIMEN Ordering Facility: [facility] Address: [address] [place], [place] [id number] Performed By: #### 5 [id number], [id number], [id number] #### [facility] CLIA [id number] [address] [place] [address] [place] Start: 10-21-2024 Transvaginal obstetr ic ultrasonography Dr. David Mckinney MD Work Phone: Start: 10-12-[address] David Mckinney MD Work Phone: Start: 10-12-2024 Urnls dip stick/tabl et reagent auto microscopy Dr. David Mckinney MD Work Phone: Start: 10-12-[address] David Mckinney MD Work Phone: Start: 09-16-2024 UA DIP,URINE HCG (POC) Hortencia Gould HIGH SCHOOL COACH.LEGAL ADVISOR Work Phone: Start: 06-17-2024 Urnls dip stick/tabl et rgnt non-auto w/o micrscp Johana Turner [employer]IGH SCHO[employer] COACH.CNM Work Phone: Start: 06-11-2024 Urnls dip stick/tabl et rgnt non-auto w/o micrscp Sarah Solomon MD Work Phone: Start: 06-11-2024 Us preg uterus after 1st trimest 06/23 gestation Jt Lugo MD Work Phone: Start: 06-03-2024 Urnls dip stick/tabl et rgnt non-auto w/o micrscp Halle Orellana HIGH SCHOOL COACH.LEGAL ADVISOR Work Phone: Start: 05-25-2024 Urnls dip stick/tabl et rgnt non-auto w/o micrscp Jeanette Patel MD Work Phone: Start: 05-12-2024 RSV VACCINE, BIVALEN T (ABRYSVO) Sarah Solomon MD Work Phone: Start: 05-12-2024 Us preg uterus after 1st trimest 06/23 gestation Jt Lugo MD Work Phone: Start: 04-14-2024 Us preg uterus after 1st trimest 06/23 gestation Jeanette Patel MD Work Phone: Start: 03-17-2024 Us preg uterus after 1st trimest 06/23 gestation Jeanette Patel MD Work Phone: Start: 02-17-2024 Us preg uterus after 1st trimest 06/23 gestation Jeanette Patel MD Work Phone: Start: 01-01-2024 Us nuchal moncada slucency 1st gestation [facility] HIGH SCHOOL COACH.LEGAL ADVISOR Work Phone: Start: 11-13-2023 Iadna chlamydia trac homatis amplified probe tq [facility] HIGH SCHOOL COACH.LEGAL ADVISOR Work Phone: Start: 11-13-2023 [facility] l [facility] [employer]IGH S[facility]OL COACH.LEGAL ADVISOR Work Phone: Start: 08-10-2023 SARS-CoV-2, Influenz a [...] DTaP,Tdap,Td Vaccine (8 - Td or Tdap) [facility] Start: 07-29-2027 Screening for malign ant neoplasm of cervix Cervical Cancer Screening [facility] Start: 08-01-2025 End: 08-01-2025 Patient encounter procedure 08/01/2025 3:30 PM EST Office Visit OB/Gynecology [address] [place], [place] [id number] Sharda Valero APRN.LEGAL ADVISOR [address] [place] [address] Annual OB/Gynecology Comment on above: Annual Start: 02-21-[address] [facility] Start: 02-09-2025 End: 02-09-2025 Patient encounter procedure 02/09/2025 10:10 AM EDT Routine Office Visit OB/Gynecology [address] [place] [address] Jt Lugo MD [address] [place] [address] OB OB/Gynecology Comment on above: OB Start: 01-12-2025 End: 01-12-2025 Patient encounter procedure [facility] Comment on above: Anatomy Anatomy US at 9am /O B Start: 12-31-2024 End: 04-01-2025 Bacteria identified in Urine by Culture BACTERIAL CULTURE, URINE Microbiology Routine Dysuria Expected: 12/31/2024, Expires: 04/01/2025 [facility] Comment on above: Expected: 12/31/2024 , Expires: 04/01/2025 Start: 12-31-2024 End: 04-01-2025 CBC panel - Blood by Automated count COMPLETE BLOOD COUNT Lab Routine History of gestational hypertension 18 weeks gestation of (HCC) Expected: 12/31/2024, Expires: 04/01/2025 [facility] Comment on above: Expected: 12/31/2024 , Expires: 04/01/2025 Start: 12-31-2024 End: 04-01-2025 Comprehensive metabolic 2000 panel - Serum or Plasma COMPREHENSIVE METABOLIC PANEL Lab Routine History of gestational hypertension Expected: 12/31/2024, Expires: 04/01/2025 [facility] Work Phone: Comment on above: Expected: 12/31/2024 , Expires: 04/01/2025 Start: 12-31-2024 End: 04-01-2025 Protein/Creatinine [Mass Ratio] in Urine PROTEIN / CREATININE RATIO Lab Routine History of gestational hypertension Expected: 12/31/2024, Expires: 04/01/2025 [facility] Comment on above: Expected: 12/31/2024 , Expires: 04/01/2025 Start: 12-31-2024 End: 04-01-2025 TOXICOLOGY SCREEN, ROUTINE URINE TOXICOLOGY SCREEN, ROUTINE URINE Lab Routine History of drug abuse (HCC) Expected: 12/31/2024 (Approximate), Expires: 04/01/2025 [facility] Comment on above: Expected: 12/31/2024 (Approximate), Expires: 04/01/2025 Start: 12-31-2024 End: 12-31-2024 Patient encounter procedure 12/31/2024 1:10 PM EDT Routine Office Visit OB/Gynecology [address] [place] [address] Soy Cassidy MD [address] [place] [address] 1st OB - LMP 08/19/24 OB/Gynecology Comment on above: 1st OB - LMP 08/19/24 Start: 12-17-2024 End: 12-17-2024 Patient encounter procedure 12/17/2024 12:50 PM EDT Routine Office Visit OB/Gynecology [address] [place] [address] Margarita Alcala MD [address] [place] [address] 1st OB - LMP 08/19/24 OB/Gynecology Comment on above: 1st OB - LMP 08/19/24 Start: 12-11-2024 [facility] Start: 12-11-2024 [facility] Start: 11-22-2024 End: 11-22-2024 Patient encounter procedure 11/22/2024 12:50 PM EDT Routine Office Visit OB/Gynecology [address] [place] [address] Margarita Alcala MD [address] [place] [address] New ob lmp 08/19/24 OB/Gynecology Comment on above: New ob lmp 08/19/24 Start: 11-18-2024 End: 02-17-2025 Chromosome 21 trisomy [Presence] in Blood or Tissue by Cytogenetics [facility] Comment on above: Expected: 11/18/2024 , Expires: 02/17/2025 Start: 11-18-2024 End: 11-18-2025 OBSTETRIC ULTRASOUND WHI OBSTETRIC ULTRASOUND WHI Anc Imaging Routine with uncertain dates, antepartum (HCC) 12 weeks gestation of (HCC) Expected: 11/18/2024, Expires: 11/18/2025 [facility] Comment on above: Expected: 11/18/2024 , Expires: 11/18/2025 Start: 11-18-2024 End: 02-17-2025 TYPE + SCREEN TYPE + SCREEN Blood Bank Routine with uncertain dates, antepartum (HCC) 12 weeks gestation of (HCC) Expected: 11/18/2024, Expires: 02/17/2025 [facility] Work Phone: Comment on above: Expected: 11/18/2024 , Expires: 02/17/2025 Start: 11-12-2024 End: 02-11-2025 CBC panel - Blood by Automated count COMPLETE BLOOD COUNT Lab Routine 6 weeks gestation of care, subsequent in first trimester Expected: 11/12/2024, Expires: 02/11/2025 [facility] Work Phone: Comment on above: Expected: 11/12/2024 , Expires: 02/11/2025 Start: 11-12-2024 End: 02-11-2025 Hemoglobin A1c in Blood HEMOGLOBIN A1C Lab Routine 6 weeks gestation of care, subsequent in first trimester Expected: 11/12/2024, Expires: 02/11/2025 [facility] Comment on above: Expected: 11/12/2024 , Expires: 02/11/2025 Start: 11-12-2024 End: 02-11-2025 Hepatitis B virus surface Ag [Presence] in Serum HEPATITIS B SURFACE ANTIGEN Lab Routine 6 weeks gestation of care, subsequent in first trimester Expected: 11/12/2024, Expires: 02/11/2025 [facility] Comment on above: Expected: 11/12/2024 , Expires: 02/11/2025 Start: 11-12-2024 End: 02-11-2025 Hepatitis C virus Ab [Presence] in Serum HEPATITIS C ANTIBODY IA WITH CONFIRMATION Lab Routine 6 weeks gestation of care, subsequent in first trimester Expected: 11/12/2024, Expires: 02/11/2025 [facility] Comment on above: Expected: 11/12/2024 , Expires: 02/11/2025 Start: 11-12-2024 End: 02-11-2025 HIV 1+2 Ab [Presence] in Serum or Plasma by Immunoassay HIV 1/2 COMBO WITH REFLEX TO DIFFERENTIATION Lab Routine 6 weeks gestation of care, subsequent in first trimester Expected: 11/12/2024, Expires: 02/11/2025 [facility] Comment on above: Expected: 11/12/2024 , Expires: 02/11/2025 Start: 11-12-2024 End: 02-11-2025 RUBELLA IGG ANTIBODY RUBELLA IGG ANTIBODY Lab Routine 6 weeks gestation of care, subsequent in first trimester Expected: 11/12/2024, Expires: 02/11/2025 [facility] Comment on above: Expected: 11/12/2024 , Expires: 02/11/2025 Start: 11-12-2024 End: 02-11-2025 SYPHILIS TOTAL W/REFLEX SYPHILIS TOTAL W/REFLEX Lab Routine 6 weeks gestation of care, subsequent in first trimester Expected: 11/12/2024, Expires: 02/11/2025 [facility] Comment on above: Expected: 11/12/2024 , Expires: 02/11/2025 Start: 11-12-2024 End: 02-11-2025 TYPE + SCREEN TYPE + SCREEN Blood Bank Routine 6 weeks gestation of care, subsequent in first trimester Expected: 11/12/2024, Expires: 02/11/2025 [facility] Comment on above: Expected: 11/12/2024 , Expires: 02/11/2025 Start: 11-12-2024 End: 11-12-2024 ambulatory 11/12/2024 11:15 AM EDT Results Only [place] [place] [facility] [address] [place] [address] [facility] Start: 10-25-2024 End: 10-25-2024 Patient encounter procedure 10/25/2024 11:00 AM EDT Initial Office Visit OB/Gynecology [address] [place] [address] Halle Orellana APRN.LEGAL ADVISOR [address] [place] [address] New ob lmp 08/19/24 OB/Gynecology Comment on above: New ob lmp 08/19/24 Start: 10-12-2024 Bacteria identified in Urine by Culture Urine Culture [facility] Start: 10-12-2024 Transvaginal obstetr ic ultrasonography [facility] Start: 10-12-2024 [facility] Start: 10-02-2024 End: 10-02-2024 [facility] Start: 08-03-2024 End: 08-03-2024 Patient encounter procedure 08/03/2024 9:30 AM EST Office Visit OB/Gynecology [address] [place] [address] Sharda Valero APRN.LEGAL ADVISOR [address] [place] [address] IUD insert OB/Gynecology Comment on above: IUD insert Start: 07-29-2024 End: 07-29-2024 Patient encounter procedure 07/29/2024 1:30 PM EST Office Visit OB/Gynecology [address] [place] [address] Sharda Valero APRN.LEGAL ADVISOR [address] [place] [address] PP OB/Gynecology Comment on above: PP Start: 07-05-2024 End: 07-05-2024 ambulatory 07/05/2024 1:30 PM EST Infusion Center Hematology/Oncology [address] [place] [address] 200 MG IRON SUCROSE 5/ 5 DOSES AUTH 06/22 * Hematology/Oncology Comment on above: 200 MG IRON SUCROSE 5/ 5 DOSES AUTH 06/22 * Start: 06-30-2024 End: 06-30-2024 ambulatory 06/30/2024 3:00 PM EST Infusion Center Hematology/Oncology [address] [place] [address] 200 MG IRON SUCROSE 3/ 5 DOSES AUTH 06/22 * Hematology/Oncology Comment on above: 200 MG IRON SUCROSE 3/ 5 DOSES AUTH 06/22 * Start: 06-28-2024 End: 06-28-2024 ambulatory 06/28/2024 9:00 AM EST Infusion Center Hematology/Oncology [address] [place] [address] 200 MG IRON SUCROSE / 5 DOSES AUTH 06/22 * Hematology/Oncology Comment on above: 200 MG IRON SUCROSE / 5 DOSES AUTH 06/22 * Start: 06-22-2024 End: 06-22-2024 ambulatory 06/22/2024 8:30 AM EST Infusion Center Hematology/Oncology [address] [place] [address] 200 MG IRON SUCROSE 2/ 5 DOSES AUTH 06/22 * Hematology/Oncology Comment on above: 200 MG IRON SUCROSE 2/ 5 DOSES AUTH 06/22 * Start: 06-19-2024 Patient discharge [facility] Start: 06-18-2024 Administration of medication [facility] Start: 06-18-2024 Application of ice collar, cap or bag [facility] Start: 06-18-2024 Catheterization of vein [facility] Start: 06-18-2024 Introduction of urin liu catheter [facility] Start: 06-18-2024 Measuring intake and output [facility] Start: 06-18-2024 Notification of physician [facility] Start: 06-18-2024 Procedure discontinued [facility] Start: 06-18-2024 Provision of activit y privileges [facility] Start: 06-18-2024 Vital signs measurements [facility] Start: 06-18-2024 End: 06-18-2024 [facility] Start: 06-18-2024 Documentation procedure [facility] Start: 06-17-2024 Admission procedure [facility] Start: 06-17-2024 End: 06-17-2024 ambulatory 06/17/2024 3:00 PM [facility] Infusion Center Hematology/Oncology [address] [place] [address] START 200 MG IRON SUCROSE 1/ 5 DOSES AUTH EXP 06/22 * Hematology/Oncology Comment on above: START 200 MG IRON FLYNN CROSE 1/ 5 DOSES AUTH EXP 06/22 * Start: 06-17-2024 End: 06-17-2024 Patient encounter procedure OB/Gynecology Comment on above: OB Routine OB/NST Start: 06-17-2024 Consultation [facility] Start: 06-14-2024 Bertrand's obstetrical version Version with Anesthesia (Not Applicable) [facility] Start: 06-14-2024 Catheterization of vein [facility] Start: 06-14-2024 Nonstress test [facility] Start: 06-14-2024 [facility] Start: 06-11-2024 End: 06-11-2024 Patient encounter procedure [...] RSV Vaccine (1 - Risk 1-dose series) [facility] Start: 04-28-2024 End: 04-28-2024 Patient encounter procedure 04/28/2024 1:30 PM EST Routine Office Visit OB/Gynecology [address] [place] [id number] Margarita Alcala MD [address] [place] [address] Routine OB OB/Gynecology Comment on above: Routine OB Start: 04-14-2024 End: 04-14-2024 Patient encounter procedure Maternal Medicine Comment on above: Growth US OB Routine OB/Growth Start: 04-13-2024 End: 04-13-2024 Patient encounter procedure OB/Gynecology Comment on above: [facility]GGY Start: 03-19-2024 End: 03-19-2024 ambulatory 03/19/2024 2:00 PM EDT Results Only [place] [facility] [address] [place] [address] Bari Medina [facility] Start: 03-17-2024 End: 03-17-2024 Patient encounter procedure OB/Gynecology Comment on above: growth OB Start: 03-17-2024 End: 06-16-2024 CBC W Auto Differential panel - Blood COMPLETE BLOOD COUNT AND DIFFERENTIAL Lab Routine History of IUFD History of gestational hypertension Supervision of high risk in second trimester 24 weeks gestation of Expected: 03/17/2024, Expires: 06/16/2024 [facility] Comment on above: Expected: 03/17/2024 , Expires: 06/16/2024 Start: 03-17-2024 End: 06-16-2024 GESTATIONAL GLUCOSE SCREEN, 1-HOUR, 50 GRAM, NON-FASTING GESTATIONAL GLUCOSE SCREEN, 1-HOUR, 50 GRAM, NON-FASTING Lab Routine History of IUFD History of gestational hypertension Supervision of high risk in second trimester 24 weeks gestation of Expected: 03/17/2024, Expires: 06/16/2024 [facility] Work Phone: Comment on above: Expected: 03/17/2024 , Expires: 06/16/2024 Start: 03-17-2024 End: 06-16-2024 SYPHILIS TOTAL W/REFLEX SYPHILIS TOTAL W/REFLEX Lab Routine History of IUFD History of gestational hypertension Supervision of high risk in second trimester 24 weeks gestation of Expected: 03/17/2024, Expires: 06/16/2024 [facility] Comment on above: Expected: 03/17/2024 , Expires: 06/16/2024 Start: 03-16-2024 End: 03-16-2024 Patient encounter procedure 03/16/2024 10:10 AM EDT Routine Office Visit OB/Gynecology [address] [place], [place] [id number] Jt Lugo MD [address] [place], [place] [id number] [facility]GG[facility] OB/Gynecology Comment on above: PEGGY Start: 02-22-2024 Covid-19 Vaccine ( season) Covid-19 Vaccine ( season) [facility] Start: 02-22-[address] [facility] Start: 02-17-2024 End: 02-17-2024 Patient encounter procedure [facility] Comment on above: Anatomy OB AnatomyMFM consult Start: 01-20-2024 End: 01-20-2024 Patient encounter procedure Maternal Medicine Comment on above: Growth/MFM CONSULT OB Start: 01-01-2024 End: 04-01-2024 Hemoglobin A1c in Blood [facility] Comment on above: Expected: 01/01/2024 , Expires: 04/01/2024 Start: 01-01-2024 End: 04-01-2024 Hepatitis B virus surface Ag [Presence] in Serum [facility] Comment on above: Expected: 01/01/2024 , Expires: 04/01/2024 Start: 01-01-2024 End: 04-01-2024 Hepatitis C virus Ab [Presence] in Serum [facility] Comment on above: Expected: 01/01/2024 , Expires: 04/01/2024 Start: 01-01-2024 End: 04-01-2024 HIV 1+2 Ab [Presence] in Serum or Plasma by Immunoassay [facility] Comment on above: Expected: 01/01/2024 , Expires: 04/01/2024 Start: 01-01-2024 End: 12-31-2024 OBSTETRIC ULTRASOUND WHI OBSTETRIC ULTRASOUND WHI Anc Imaging Routine Encounter for supervision of other normal in second trimester History of IUFD Expected: 01/01/2024, Expires: 12/31/2024 [facility] Work Phone: Comment on above: Expected: 01/01/2024 , Expires: 12/31/2024 Start: 01-01-2024 End: 04-01-2024 RUBELLA IGG ANTIBODY [facility] Comment on above: Expected: 01/01/2024 , Expires: 04/01/2024 Start: 01-01-2024 End: 04-01-2024 SEQUENTIAL SCN FIRST TRIMESTER [facility] Comment on above: Expected: 01/01/2024 , Expires: 04/01/2024 Start: 01-01-2024 End: 04-01-2024 SEQUENTIAL SCN SECOND TRIM SEQUENTIAL SCN SECOND TRIM Lab Routine Encounter for supervision of other normal in second trimester Expected: 01/01/2024, Expires: 04/01/2024 [facility] [place] Comment on above: Expected: 01/01/2024 , Expires: 04/01/2024 Start: 01-01-2024 End: 04-01-2024 SYPHILIS TOTAL W/REFLEX [facility] [place] Comment on above: Expected: 01/01/2024 , Expires: 04/01/2024 Start: 01-01-2024 End: 04-01-2024 TYPE + SCREEN [facility] [place] Comment on above: Expected: 01/01/2024 , Expires: 04/01/2024 Start: 01-01-2024 End: 01-01-2024 Patient encounter procedure OB/Gynecology Comment on above: Nuchal ob LMP 09/27 Start: 11-13-2023 End: 11-12-2024 NUCHAL TRANSLUCENCY WHI NUCHAL TRANSLUCENCY WHI Anc Imaging Routine 6 weeks gestation of Expected: 11/13/2023, Expires: 11/12/2024 [facility] Comment on above: Expected: 11/13/2023 , Expires: 11/12/2024 Start: 08-10-2023 [facility] Start: 07-17-2023 [facility] Start: 06-23-2023 Behavioral Health Screening Behavioral Health Screening [facility] [place] Start: 02-24-2023 [facility] Start: 02-24-2023 Streptococcus pyogen es antigen assay Group A Streptococcus Rapid Screen [facility] Start: 02-21-2023 Covid-19 Vaccine ( season) Covid-19 Vaccine () [facility] Start: 06-07-2022 End: 06-21-2022 Influenza virus A and B RNA and SARS-CoV-2 (COVID-19) N gene panel - Respiratory specimen by OFELIA with probe detection [facility] Work Phone: Comment on above: Expected: 06/07/2022 , Expires: 06/21/2022 Start: 02-22-2022 Patient discharge [facility] Work Phone: Start: 02-22-2022 Consultation [facility] Work Phone: Start: 02-21-2022 Influenza vaccination INFLUENZA (#1) [facility] Start: 02-21-2022 Administration of medication [facility] Work Phone: Start: 02-21-2022 Application of ice collar, cap or bag [facility] Work Phone: Start: 02-21-2022 Catheterization of vein [facility] Work Phone: Start: 02-21-2022 Introduction of urin liu catheter [facility] Work Phone: Start: 02-21-2022 Measuring intake and output [facility] Work Phone: Start: 02-21-2022 Notification of physician [facility] Work Phone: Start: 02-21-2022 Procedure discontinued [facility] Work Phone: Start: 02-21-2022 Provision of activit y privileges [facility] Work Phone: Start: 02-21-2022 Vital signs measurements [facility] Work Phone: Start: 02-21-2022 [facility] Work Phone: Start: 02-20-2022 Admission procedure [facility] Work Phone: Start: 02-17-2022 Eval c/v amniotic fl uid protein qual ea specimen EVAL AMNIOTIC FLUID PROTEIN [facility] Work Phone: Start: 02-17-2022 monitoring lab or phys written report MONITOR W/REPORT [facility] Work Phone: Start: 02-17-2022 nonstress test NON-STRES S TEST [facility] Work Phone: Start: 02-17-2022 Nonstress test [facility] Work Phone: Start: 02-17-2022 Obstetric monitoring [facility] Work Phone: Start: 02-17-2022 Vital signs measurements [facility] Work Phone: Start: 02-17-2022 [facility] Work Phone: Start: 02-17-2022 Patient discharge [facility] Work Phone: Start: 12-22-2021 US.doppler Lower extremity vein [facility] Work Phone: Start: 12-22-2021 [facility] Work Phone: Start: 11-22-2021 Nonstress test [facility] Work Phone: Start: 11-22-2021 Obstetric monitoring [facility] Work Phone: Start: 11-22-2021 Vital signs measurements [facility] Work Phone: Start: 11-22-2021 [facility] Work Phone: Start: 11-04-2021 [facility] Start: 11-03-2021 Nonstress test [facility] Work Phone: Start: 11-03-2021 Obstetric monitoring [facility] Work Phone: Start: 11-03-2021 Vital signs measurements [facility] Work Phone: Start: 11-03-2021 End: 11-03-2021 [facility] Work Phone: Start: 06-23-2021 DEPRESSION ASSESSMENT DEPRESSION ASS ESSMENT [facility] [place] Start: 03-13-2021 COVID-19 VACCINE (2 - Moderna series) COVID-19 VACCINE (2 - Moderna series) [facility] [place] Start: 03-19-2020 Urine microalbumin profile DTaP,Tdap,Td Vaccine (7 - Td or Tdap) [facility] [place] Start: 2017 PAP TESTING PAP TESTING [facility] [place] Start: 2017 Screening for malign ant neoplasm of cervix [facility] Start: 12-28-2015 Urine microalbumin profile DTAP,TDAP,TD (1 - Tdap) [facility] [place] Start: 2014 Anxiety Screening Anxiety Screening [facility] Start: 2014 Depression Screening Depression Scre ening [facility] Start: 2014 HEPATITIS C SCREENING HEPATITIS C [facility] Start: 2014 Hepatitis C screening [facility]atitis [facility] Start: 2014 HIV SCREENING HIV SCREENING [facility] Start: 2014 HIV screening HIV Screening [facility] Start: 2010 PEDS TO ADULT TRANSI TION ANNUAL ASSESSMENT PEDS TO ADULT TRANSITION ANNUAL ASSESSMENT [facility] Start: 2008 PEDS TO ADULT TRANSI TION INITIAL DISCUSSION PEDS TO ADULT TRANSITION INITIAL DISCUSSION [facility] [place] Start: 12-28-2007 HPV VACCINE (1 - 2-d ose series) HPV VACCINE (1 - 2-dose series) [facility] [place] Start: 1996 HEPATITIS B (1 of 3 - 3-dose series) HEPATITIS B (1 of 3 - 3-dose series) [facility] Bacteria identified in Urine by Culture URINE CULTURE Microbiology Routine 6 weeks gestation of care, subsequent in first trimester 11/13/2023 3:27 PM EDT [facility] Bilirubin measuremen t, urine [facility] Chlamydia trachomatis+Neisseria gonorrhoeae DNA [Presence] in Unspecified specimen by OFELIA with probe detection GONORRHEA/CHLAMYDIA NAAT Lab Routine with uncertain dates, antepartum (HCC) 12 weeks gestation of (HCC) 11/18/2024 1:57 PM EDT [facility] nonstress test NON-S TRESS TEST Procedures Routine History of IUFD Ordered: 04/28/2024 [facility] Work Phone: Comment on above: Ordered: 04/28/2024 Hemoglobin [Presence ] in Urine [facility] Insertion intrauteri ne device iud INSERT INTRAUTERINE DEVICE Procedures Routine Encounter for other general counseling or advice on contraception Ordered: 07/29/2024 [facility] Work Phone: Comment on above: Ordered: 07/29/2024 Measurement of keton es in urine using dipstick [facility] Microscopic urinalysis [facility] End: 04-16-2024 OBSTETRIC ULTRASOUND WHI OBSTETRIC ULTRASOUND WHI Anc Imaging Routine History of IUFD Once per month for 2 Occurrences starting 02/17/2024 until 04/16/2024 [facility] Work Phone: Comment on above: Once per month for 2 Occurrences starting 02/17/2024 until 04/16/2024 End: 07-23-2024 OBSTETRIC ULTRASOUND WHI OBSTETRIC ULTRASOUND WHI Anc Imaging Routine Supervision of other high risk pregnancies, third trimester Polyhydramnios in third trimester complication, single or unspecified fetus History of IUFD Every 3 weeks for 3 Occurrences starting 04/14/2024 until 07/23/2024 [facility] Work Phone: Comment on above: Every 3 weeks for 3 Occurrences starting 04/14/2024 until 07/23/2024 End: 05-31-2025 OBSTETRIC ULTRASOUND WHI OBSTETRIC ULTRASOUND I Anc Imaging Routine Encounter for supervision of high risk in second trimester, antepartum (HCC) Chronic hypertension complicating or reason for care during childbirth (HCC) Once per month for 6 Occurrences starting 01/12/2025 until 05/31/2025 [facility] Work Phone: Comment on above: Once per month for 6 Occurrences starting 01/12/2025 until 05/31/2025 Organism count, microscopic method [facility] PAP TEST PAP TEST Lab Tonny chase care and examination Screening for malignant neoplasm of cervix 07/29/2024 1:48 PM EST [facility] Path report.final Dx Spec [facility] Patient Education [facility] Work Phone: Patient referral [facility] Work Phone: pH of Urine [facility] ROUTINE, GR OUP B STREP PCR ROUTINE, GROUP B STREP PCR Microbiology Routine 36 weeks gestation of 06/11/2024 11:55 AM EST [facility] Work Phone: Specific gravity of Urine [facility] Urine culture [facility] Urine dipstick for glucose [facility] Urine dipstick for leukocyte esterase [facility] Urine dipstick for nitrite [facility] Urine dipstick for protein [facility] Urine examination [facility] Urine microscopy: epithelial cells [facility] Urine microscopy: re d cells [facility] URINE OB DIP B/O URINE OB DIP B/ O Lab Routine Encounter for supervision of normal in multigravida in first trimester 9 weeks gestation of Ordered: 12/01/2023 [facility] Work Phone: Comment on above: Ordered: 12/01/2023 Urobilinogen [Presen ce] in Urine [facility] White blood cell count [facility] Immunizations Immunization Date Immunization Notes Care Provider Darya mallory 05-12-2024 respiratory syncytia l virus (RSV) vaccine, bivalent (ABRYSVO) Whi Mob [facility] 04-14-2024 tetanus toxoid, redu anju diphtheria toxoid, and acellular pertussis vaccine, adsorbed Margarita Alcala MD Work Phone: [facility] 02-13-2021 COVID-19 original vaccine, full dose, monovalent (MODERNA) Margarita Alcala MD Work Phone: [facility] [place] 02-10-2017 measles, mumps and rubella virus vaccine Dr. David Mckinney Work Phone: [facility] 01-05-2014 human papilloma viru s vaccine, quadrivalent Margarita Alcala MD Work Phone: [facility] [place] 03-19-2010 human papilloma viru s vaccine, quadrivalent Margarita Alcala MD Work Phone: [facility] [place] 03-19-2010 tetanus toxoid, redu anju diphtheria toxoid, and acellular pertussis vaccine, adsorbed Margarita Alcala MD Work Phone: [facility] [place] 03-19-2010 varicella virus vaccine Jo-Ann Alcala MD Work Phone: [facility] [place] 01-05-2001 diphtheria, tetanus toxoids and acellular pertussis vaccine, unspecified formulation Margarita Alcala MD Work Phone: [facility] [place] 01-05-2001 measles, mumps and rubella virus vaccine Margarita Alcala MD Work Phone: [facility] [place] 01-05-2001 poliovirus vaccine, inactivated Margarita Alcala MD Work Phone: [facility] [place] 09-20-1999 varicella virus vaccine Jo-Ann Alcala MD Work Phone: [facility] [place] 09-10-1999 diphtheria, tetanus toxoids and acellular pertussis vaccine, unspecified formulation Margarita Alcala MD Work Phone: [facility] [place] 11-13-1998 diphtheria, tetanus toxoids and acellular pertussis vaccine, unspecified formulation Margarita Alcala MD Work Phone: [facility] [place] 11-13-1998 poliovirus vaccine, inactivated Margarita Alcala MD Work Phone: [facility] [place] 02-21-1998 haemophilus influenz ae type b vaccine, HbOC conjugate Margarita Alcala MD Work Phone: [facility] [place] 02-21-1998 hepatitis B vaccine, pediatric or pediatric/adolescent dosage Margarita Alcala MD Work Phone: [facility] 02-21-1998 measles, mumps and rubella virus vaccine Margarita Alcala MD Work Phone: [facility] 12-20-1997 diphtheria, tetanus toxoids and acellular pertussis vaccine, unspecified formulation Margarita Alcala MD Work Phone: [facility] [place] 12-20-1997 haemophilus influenz ae type b vaccine, HbOC conjugate Margarita Alcala MD Work Phone: [facility] [place] 12-20-1997 poliovirus vaccine, inactivated Margarita Alcala MD Work Phone: [facility] [place] 11-11-1997 diphtheria, tetanus toxoids and acellular pertussis vaccine, unspecified formulation Margarita Alcala MD Work Phone: [facility] [place] 11-11-1997 haemophilus influenz ae type b vaccine, HbOC conjugate Margarita Alcala MD Work Phone: [facility] [place] 11-11-1997 hepatitis B vaccine, pediatric or pediatric/adolescent dosage Margarita Alcala MD Work Phone: [facility] [place] 11-11-1997 poliovirus vaccine, inactivated Margarita Alcala MD Work Phone: [facility] 1996 hepatitis B vaccine, pediatric or pediatric/adolescent dosage Margarita Alcala MD Work Phone: [facility] [place] Payers Date Payer Category Payer Self-pay [id number] 2022 Medicaid [id number] 2017 Unknown [id number] 2017 Unknown [id number] [id number] Unknown [id number] [id number] Unknown [id number] [id number] Unknown [id number] [id number] Unknown [id number] [id number] Unknown [id number] [id number] Unknown [id number] [id number] [id number] Unknown [id number] [id number] Social History Date Type Detail Facility [facility] Work Phone: Start: 11-03-2021 End: 08-10-2023 Tobacco smoking status NDIS Unknown if ever smoked [facility] Start: 01-13-2020 None [facility] Start: 1995 Sex Assigned At Female W [facility] Start: 06-07-2022 End: 11-13-2023 Tobacco smoking status NDIS Never smoked tobacco [facility] Start: 06-07-2022 End: 02-17-2024 Tobacco use and exposure Smokeless tobacco non-user [facility] Start: 1995 Sex Assigned At Not on file C [facility] History of tobacco use Passive smoker [facility] Start: 11-13-2023 End: 11-18-2024 Alcohol intake Ex-drinker (finding) [facility] Start: 11-13-2023 End: 11-18-2024 History of Social function [facility] Start: 11-13-2023 End: 11-18-2024 Tobacco use panel [facility] National Score (1-100), lower number is lower risk 90 [facility] Start: 11-10-2023 Education 13 [facility] Start: 10-12-2023 [facility] Start: 11-12-2023 Gender identity Identifies as female gender (finding) [facility] Start: 11-12-2023 Sexual orientation Heterosexual (troy de paz) [facility] Start: 02-17-2024 End: 01-28-2025 Tobacco smoking status NHIS Ex-smoker [facility] History of tobacco use Current smoker [facility] History of tobacco use Cigarette Smoker [facility] Start: 10-02-2024 End: 10-12-2024 Sex Female (finding) [facility] NEGATED: Highlighted row [facility] Goals Date Patient Goal Desired Activity /State Personal health goal Personal health goal Mental Status Date Assessment Result Facility 08-10-2023 Cognitive function Level Of Cons ciousness Awake;Alert;Appropriate;Follow s Commands [facility] Work Phone: 06-10-2023 Cognitive function Level Of Cons ciousness Awake;Alert;Appropriate;Drowsy [facility] Work Phone: 05-11-2023 Cognitive function Level Of Cons ciousness Awake;Alert;Appropriate [facility] Work Phone: 02-24-2023 Cognitive function Level Of Cons ciousness Awake;Alert;Appropriate [facility] Work Phone: 09-13-2021 Cognitive function Level Of Cons ciousness Awake;Alert;Appropriate;Follow s Commands [facility] Work Phone: Clinical Notes 02-22-2022 to 01-13-2025 Telephone Encounter - Carla Mckinney RN - 01/13/2025 9:59 AM EDTTelephone Encounter - Carla Mckinney, RN - 01/13/2025 9:59 AM EDTPatient Soy Leon MD - 01/04/2025 8:29 AM EDT Note Date & Type Note Facility 01-13-2025 Telephone encount er Note 2nd risk assessment form submitted 01/13/25 Carla Mckinney RN [facility] [place] 01-13-2025 Miscellaneous Notes Formattin g of this note might be different from the original. 2nd risk assessment form submitted 01/13/25 Carla Mckinney RN documented in this encounter [facility] 01-12-2025 Progress note Formatting of t his note might be different from the original. DM-Pt doing well. Denies vaginal Bleeding, Leaking fluid, or regular Contractions. Pt reports good movement. Was started on labetalol 100mg tid by PCP- doing well average bp at home 130/70s- reports has an occasional low. Physical Exam: Gen: female in no apparent distress Abd: soft, Gravid. Non tender to palpation. See flow sheet @ 20.1 weeks Assessment & Plan Encounter for supervision of high risk in second trimester, antepartum ([facility]) Orders: OBSTETRIC ULTRASOUND WHI; Standing Chronic hypertension complicating or reason for care during childbirth ([facility]) Continue Labetalol 100mg tid Continue PO ASA Discussed changing positions slowly if has frequent low BP notify office. Orders: OBSTETRIC ULTRASOUND WHI; Standing Late care ([facility]) History of gestational hypertension Continue ASA History of drug abuse ([facility]) Vapes nicotine containing substance 20 weeks gestation of ([facility]) Anatomy us pending today RTO 4 wks Sarah Warner MD [facility] [place] 01-12-2025 Miscellaneous Notes Formattin g of this note might be different from the original. DM-Pt doing well. Denies vaginal Bleeding, Leaking fluid, or regular Contractions. Pt reports good movement. Was started on labetalol 100mg tid by PCP- doing well average bp at home 130/70s- reports has an occasional low. Physical Exam: Gen: female in no apparent distress Abd: soft, Gravid. Non tender to palpation. See flow sheet @ 20.1 weeks Assessment & Plan Encounter for supervision of high risk in second trimester, antepartum (HCC) Orders: OBSTETRIC ULTRASOUND WHI; Standing Chronic hypertension complicating or reason for care during childbirth (HCC) Continue Labetalol 100mg tid Continue PO ASA Discussed changing positions slowly if has frequent low BP notify office. Orders: OBSTETRIC ULTRASOUND WHI; Standing Late care (HCC) History of gestational hypertension Continue ASA History of drug abuse (HCC) Vapes nicotine containing substance 20 weeks gestation of (HCC) Anatomy us pending today RTO 4 wks Sarah Warner MD documented in this encounter [facility] 01-12-2025 Instructions Terrie Ramirez MA - 01/12/2025 9:10 AM EDT SEQUENTIAL SCREENINGS The [facility] offers sequential screenings for women who are interested in screenings for chromosomal abnormalities and certain defects during a . The sequential screen combines ultrasound and blood tests to determine the risk [...] this testing. It will require an appointment with our pulmonary function technician. This is not an ultrasound performed by [...] the above symptoms, contact our office at [phone] and ask to speak with a nurse. After hours, you can call doctors registry at [phone] OR call [facility] at [phone] and ask to have the doctor hospice nurse practitioner paged. If you consider this an emergency, dial [phone]- or go to your nearest emergency department. NEED HELP? Are you dealing with a violent or abusive relationship? Are you a victim of rape or sexual assult? Call [facility] ([place]) 24 hour Crisis Hotline: 395.676.9548 or 737-774-2061. MANUAL Your Guide to a Healthy manual is now on-line. Visit [email or web address] to download your free copy documented in this encounter [facility] 01-04-2025 Note HNO ID: [id number] Author: SOY CASSIDY MD Service: ? Author Type: Physician Type: Progress Notes Filed: 01/04/2025 08:40 Note Text: SW- pt doing well. No pain, vb, lof. PE: Gen- NAD well appearing Abd- Soft, NT See flowsheet A/p 19 wk gestation History of drug use: Sober for 5-6 years. Discussed urine drug screen with next urine sample with patient and her partner. The patient consents to having a urine drug screen completed H/o gHTN: Possible cHTN? Patient reports at PCP's office her BP was 140's/80's and home her BP today was 142/88. Her PCP started her on Labetalol 100 mg TID. Cont home BP monitoring. Discussed importance of calling our office or coming into our office for further management rather than PCP office throughout . Check baseline pre e labs. Growth US q 4 weeks and antepartum testing 32 weeks UTI: Patient reports completion of antibiotic as prescribed by her PCP for UTI. Unable to provide urine sample today. Needs CFC and orders placed for lab Schedule anatomy US RTO for anatomy US and visit Soy Cassidy DO [facility] 01-04-2025 History of Presen t illness Narrative SW- pt doing well. No pain, vb, lof. PE: Gen- NAD well appearing Abd- Soft, NT See flowsheet A/p 19 wk gestation History of drug use: Sober for 5-6 years. Discussed urine drug screen with next urine sample with patient and her partner. The patient consents to having a urine drug screen completed H/o gHTN: Possible cHTN? Patient reports at PCP's office her BP was 140's/80's and home her BP today was 142/88. Her PCP started her on Labetalol 100 mg TID. Cont home BP monitoring. Discussed importance of calling our office or coming into our office for further management rather than PCP office throughout . Check baseline pre e labs. Growth US q 4 weeks and antepartum testing 32 weeks UTI: Patient reports completion of antibiotic as prescribed by her PCP for UTI. Unable to provide urine sample today. Needs CFC and orders placed for lab Schedule anatomy US RTO for anatomy US and visit Soy Cassidy DO documented in this encounter [facility] 12-31-2024 Progress note Formatting of t his note might be different from the original. SW- No pain, vb, lof. Feeling flutters PE: Gen- NAD, well appearing See flowsheet A/p 18 wk gestation - Possible cHTN? Patient reports BP at PCP office was 140's/80's. At home she reports most recent BP 142/88. PCP started her on Labetalol 100 mg TID. Discussed LDA. Discussed home BP monitoring - Recently completed antibiotic for UTI through PCP. Recommend urine CFC - Sober for 6 year [facility] 12-31-2024 Miscellaneous Notes Formattin g of this note might be different from the original. SW- No pain, vb, lof. Feeling flutters PE: Gen- NAD, well appearing See flowsheet A/p 18 wk gestation - Possible cHTN? Patient reports BP at PCP office was 140's/80's. At home she reports most recent BP 142/88. PCP started her on Labetalol 100 mg TID. Discussed LDA. Discussed home BP monitoring - Recently completed antibiotic for UTI through PCP. Recommend urine CFC - Sober for 6 year documented in this encounter [facility] [place] 12-31-2024 Emily Vu LPN - 12/31/2024 1:17 PM EDT SEQUENTIAL SCREENINGS The [facility] offers sequential screenings for women who are interested in screenings for chromosomal abnormalities and certain defects during a . The sequential screen combines ultrasound and blood tests to determine the risk [...] this testing. It will require an appointment with our pulmonary function technician. This is not an ultrasound performed by [...] the above symptoms, contact our office at [phone] and ask to speak with a nurse. After hours, you can call doctors registry at [phone] OR call [facility] at [phone] and ask to have the doctor hospice nurse practitioner paged. If you consider this an emergency, dial 9-1-8 or go to your nearest emergency department. NEED HELP? Are you dealing with a violent or abusive relationship? Are you a victim of rape or sexual assult? Call [facility] ([place]) 24 hour Crisis Hotline: 636.842.6096 or 415-659-3840. MANUAL Your Guide to a Healthy manual is now on-line. Visit [email or web address] [email or web address] to download your free copy documented in this encounter [facility] 2024 Telephone encount er Note Reason for Call: H/A and numbness of the right side of her face Outcome: She is calling 911 [facility] 2024 Miscellaneous Notes Formattin g of this note might be different from the original. Reason for Call: H/A and numbness of the right side of her face Outcome: She is calling 911 Reason for Disposition [1] Numbness of the face, arm or leg on one side of the body AND [2] new-onset C/o 8/10 H/A and numbness of the right side of her face. Protocols used: - Jxgiakba-CWUMC-TW documented in this encounter [facility] 2024 Telephone encount er Note Reason for Disposition [1] Numbness of the face, arm or leg on one side of the body AND [2] new-onset C/o 8/10 H/A and numbness of the right side of her face. Protocols used: - Lbcztwqb-FVUVQ-ED [facility] 11-19-2024 Telephone encount er Note 1st risk assessment form submitted 11/19/24. Justin Valentino RN [facility] 11-19-2024 Miscellaneous Notes Formattin g of this note might be different from the original. 1st risk assessment form submitted 11/19/24. Justin Valentino RN documented in this encounter [facility] 11-18-2024 Progress note Formatting of t his note might be different from the original. Patient is at 12w4d gestation here for NOB. This is patient's first visit. See progress note. Johana Turner APRN.CNM [facility] 11-18-2024 Miscellaneous Notes Formattin g of this note might be different from the original. Patient is at 12w4d gestation here for NOB. This is patient's first visit. See progress note. Johana Turner APRN.CNM documented in this encounter [facility] 11-18-2024 Instructions Shahzad Romero MA - 11/18/2024 12:58 PM EDT Please select the following link to access the [facility] Your Guide to a Healthy . [email or web address] documented in this encounter [facility] 11-18-2024 Note HNO ID: [id number] Author: JOHANA TURNER APRN.CNM Service: ? Author Type: [employer] Line Worker Type: Progress Notes Filed: 11/18/2024 14:45 Note [...] the following (please check all that apply)? [employer] Worker care Social History: Do you have any [...] Status: Partner: Name: Sarath Age: 33 Occupation: [employer] Gender: Male PAST MEDICAL HISTORY Diagnosis Date Drug addiction in remission ([facility]) Generalized anxiety disorder Polyhydramnios in third trimester ([facility]) 05/14/2024 PAST SURGICAL HISTORY Procedure Laterality Date [...] medications for this (more content not included)... [facility] 11-18-2024 History of Presen t illness Narrative [...] the following (please check all that apply)? [employer] Worker care Social History: Do you have any [...] Status: Partner: Name: Sarath Age: 33 Occupation: [employer] Gender: Male PAST MEDICAL HISTORY Diagnosis Date Drug addiction in remission ([facility]) Generalized anxiety disorder Polyhydramnios in third trimester ([facility]) 05/14/2024 PAST SURGICAL HISTORY Procedure Laterality Date [...] Anxiety, Depression, Memory loss Hx of depression. [facility] physician . Zoloft 50 mg PO daily- stopped when found out SKIN: Negative for: Rash, Itching GENITOURINARY: Negative for: vaginal itching, vaginal discharge, hematuria or dysuria SENSITIVE EXAM: The sensitive examination was discussed with the Patient or Patient's Authorized Cribbing Setter. As applicable, any other physician, advance practice provider, medical student, or other health professional student that will be observing or involved in the sensitive examination for educational or training purposes was discussed with the Patient or Authorized Cribbing Setter. The Patient or Authorized Cribbing Setter has agreed to proceed with the sensitive [...] activity, and crown-rump length 12w 2 days [facility] to room for dating verification SBIRT Shilpa Hoang was given the 4P's screening [...] Your guide to a health and the Optical Laboratory Technician. 2) Screening: Hemoglobin A1C: ordered Baby Aspirin: [...] in 4 weeks for PEGGY or sooner pravi Turner APRN.CNM documented in this encounter [facility] 10-22-2024 Radiology Diagnostic study note [facility] Services [address] [place] [address] Transvaginal w/Preg US MR#: [id number] Acct: [id number] Name: SHILPA HOANG Rep #: [id number] : 1995 F 28 From: Peggy Tapia MD PCP: Dr. David Mckinney MD Status: [facility] CLI Study:Transvaginal w/Preg US Date of Exam: 10/21/24 Exam# [id number] Ordering Dr: Chelsi Cárdenas DO PROCEDURE: TRANSVAGINAL [...] weeks 1 day, JANE 05/25/2025. Reading Location: [id number] CC: Dr. David Mckinney MD; Rizwan Cárdenas DO ~ [place]: Signed [facility] 10-13-2024 Telephone encount er Note Patient has appt - closing encounter. Carla Mckinney RN [facility] 10-13-2024 Miscellaneous Notes Formattin g of this [...] have it, so she can receive the certified social workers in health care messages. Will forward this encounter to the [...] Return call to: self Call patient at: [phone] (cell), it is OK to leave message Payor: [facility] Plan: [facility] MEDICAID / Product Type: Medicaid / Jennifer Roldan documented in this encounter [facility] 10-08-2024 Telephone encount er Note Call placed [...] have it, so she can receive the certified social workers in health care messages. Will forward this encounter to the schedulers in this office. [facility] 10-08-2024 Telephone encount er Note ----- Message [...] Return call to: self Call patient at: [phone] (cell), it is OK to leave message Payor: [employer] MEDICAID / Plan: [facility] MEDICAID / Product Type: Medicaid / Jennifer Roldan [facility] 09-16-2024 Note HNO ID: [id number] Author: HORTENCIA GOULD APRN.CNP Service: ? Author Type: Nurse Practitioner Type: Progress Notes Filed: 09/16/2024 17:11 Note Text: Patient declined salesforce business analyst. Shilpa presents today for IUD insertion for [...] questions answered to her satisfaction. Hortencia Gould APRN.CNP I spent a total of 15 minutes on the date of the service which included preparing to see the patient, [id number] patient care, completing clinical documentation, obtaining and/or reviewing separately obtained history, performing a medically appropriate examination, counseling and educating the patient/family/caregiver, and ordering medications, tests, or procedures. [facility] 09-16-2024 History of Presen t illness Narrative Patient declined salesforce business analyst. Shilpa presents today for IUD insertion for [...] questions answered to her satisfaction. Hortencia Gould APRN.CNP I spent a total of 15 minutes on the date of the service which included preparing to see the patient, jexq-cw-roks patient care, completing clinical documentation, obtaining and/or reviewing separately obtained history, performing a medically appropriate examination, counseling and educating the patient/family/caregiver, and ordering medications, tests, or procedures. documented in this encounter [facility] 09-16-2024 Instructions Babita Blankenship LPN - 09/16/2024 [...] contact the office. documented in this encounter [facility] 08-06-2024 Telephone encount er Note Please let the pt know that her Pap is normal, but it showed that she was Trich positive. I would like her to come in for a vaginal culture to confirm as pap is not the reliable test. Sharda Valero APRN.CNP [facility] 08-06-2024 Miscellaneous Notes Formattin g of this note might be different from the original. Please let the pt know that her Pap is normal, but it showed that she was Trich positive. I would like her to come in for a vaginal culture to confirm as pap is not the reliable test. Sharda Valero APRN.CNP documented in this encounter [facility] 07-29-2024 Note HNO ID: [id number] Author: SHARDA VALERO APRN.CNP Service: ? Author Type: Nurse Practitioner Type: Progress Notes Filed: 07/29/2024 13:46 Note Text: VISIT Shilpa Hoang is a 28 year old year old here for visit. Delivery Summary: 06/18/24 ROS/ Recovery: Feeding: Bottle feeding problems: n/a Menses since delivery: n/a Menstrual pattern prior to : Regular periods [place] since delivery: Not resumed Depression: denies symptoms [...] discussed with the Patient or Patient's Authorized Cribbing Setter. As applicable, any other physician, advance practice provider, medical student, or other health professional student that will be observing or involved in the sensitive examination for educational or training purposes was discussed with the Patient or Authorized Cribbing Setter. The Patient or Authorized Cribbing Setter has agreed to proceed with the sensitive [...] external genitalia normal, normal Bartholin's glands, urethra, [place]'s glands, no vulvar lesions, no cervical lesions, physiologic discharge present, normal appearing perineal body and perianal region BIMANUAL: uterus normal size, shape and consistency, no adnexal masses, and non-tender NEURO: alert and oriented x3,exam grossly non-focal EXTREMITIES: normal ASSESSMENT AND PLAN: 28 year old status post with normal course. Contraception plan: IUD - Mirena Follow up: RTC for insertion of IUD Sharda Valero APRN.[facility] 07-29-2024 History of Presen t illness Narrative VISIT Shilpa Hoang is a 28 year old year old here for visit. Delivery Summary: 06/18/24 ROS/ Recovery: Feeding: Bottle feeding problems: n/a Menses since delivery: n/a Menstrual pattern prior to : Regular periods [place] since delivery: Not resumed Depression: denies symptoms [...] discussed with the Patient or Patient's Authorized Cribbing Setter. As applicable, any other physician, advance practice provider, medical student, or other health professional student that will be observing or involved in the sensitive examination for educational or training purposes was discussed with the Patient or Authorized Cribbing Setter. The Patient or Authorized Cribbing Setter has agreed to proceed with the sensitive [...] external genitalia normal, normal Bartholin's glands, urethra, [place]'s glands, no vulvar lesions, no cervical lesions, physiologic discharge present, normal appearing perineal body and perianal region BIMANUAL: uterus normal size, shape and consistency, no adnexal masses, and non-tender NEURO: alert and oriented x3,exam grossly non-focal EXTREMITIES: normal ASSESSMENT AND PLAN: 28 year old status post with normal course. Contraception plan: IUD - Mirena Follow up: RTC for insertion of IUD Sharda Valero APRN.LEGAL ADVISOR documented in this encounter [facility] 07-01-2024 Note HNO ID: [id number] Author: JEANETTE PATEL MD Service: ? Author [...] in bassinet/crib in parent's room, feels rested [place] since delivery: Not resumed Emotional support: Yes [...] visit and as needed Jeanette Patel MD [facility] 07-01-2024 History of Presen t illness Narrative [...] in bassinet/crib in parent's room, feels rested [place] since delivery: Not resumed Emotional support: Yes [...] Jeanette Patel MD documented in this encounter [facility] 06-21-2024 Note HNO ID: [id number] Author: MARGARITA HEARN RN Service: ? Author Type: Registered Nurse Type: Progress Notes Filed: 06/21/2024 10:56 Note Text: Patient delivered via at [facility] on 06/18/24 per Margarita Alcala MD . See OB Outcome note. Margarita Hearn RN [facility] 06-21-2024 History of Presen t illness Narrative Patient delivered via at [facility] on 06/18/24 per Margarita Alcala MD . See OB Outcome note. Margarita Hearn RN documented in this encounter [facility] 06-19-2024 Note [facility] Medical Records Department [address] [place] [address] Discharge Summary 06/19/24 0448 MR#: [id number] Acct: [id number] Name: SHILPA HOANG Rep #: [id number] : 1995 From: Margarita Alcala MD PCP: Dr. David Mckinney MD Status:DIS IN Location: PS240-1 Providers Date of Admission: 06/17/24 Date of [...] on 06/22 Medications at Discharge Home Medications wwdukmse-qez-Nj-FA 1 mg tablet 1 tab PO DAILY [...] 1-2 and 6 weeks or as needed. [phone] Meaningful Use Info Meaningful Use Meaningful Use [...] Provider: David Mckinney Discharge Orders/Prescriptions Prescriptions: Continued qtrgmgza-efz-Rj-FA 1 mg Tablet 1 tab PO DAILY [...] can be placed): Home, Self Care 06/20/24 1515 Cosigner Signature (if applicable): CC: Dr. David Mckinney MD; Dr. Margarita Alcala MD Signed [facility] 06-17-2024 Evaluation note Diagnosis Onset Date Resolution 37 weeks gestation of acute June 17 3:30pm Anemia affecting in third trimester acute June 17 3:30pm Gestational hypertension acute June 17, 2024 3:30pm Gestational thrombocytopenia acute Ivan 26th, 2024 3:30pm History of drug use acute Decem kadie 2023 3:30pm Positive GBS test acute Decembe r 2023 3:30pm hypertension acute D ecember 2023 3:30pm (spontaneous vaginal delivery) acute June 17, 2 024 3:30pm [facility] Work Phone: [phone] Progress note* Quick Notes - Johana Turner APRN.CNM - [...] RTO 1 week for NST/PEGGY Turner APRN.CNM [facility]12-26-2024 Miscellaneous Notes* Quick Notes - Johana Turner [...] of care - RTO 1 week for MADI/PEGGY Turner APRN.CNM [facility] [place] NoteHNO ID: [id number] Author: JOHANA TURNER APRN.CNM Service: ? Author Type: [employer] Line Worker Type: Progress Notes Filed: 06/17/2024 10:25 Note [...] TOCO: None Interpretation: Reactive SIGNATURE: Joh[facility] Turner APRN.[facility] History of Present illness Narrative* Johana Turner [...] SIGNATURE: Johana Turner APRN.CNM [facility] [place] Instructions* Patient Instructions* Terrie Ramirez MA - 06/17/2024 8:43 AM EST SEQUENTIAL SCREENINGS The [facility] offers sequential screenings for women who are [...] testing. It will require an appointment withour pulmonary function technician. This is not an ultrasound performed by [...] the above symptoms, contact our office at [phone] and ask to speak with anurse. After hours, you can call doctors registry at [phone] OR call [facility] at [phone] ask to have the doctor hospice nurse practitioner paged. If you consider this an emergency, dial 02-21- or go to your nearest emergency department. NEED HELP? Are you dealing with a violent or abusive relationship? Are you a victim of rape or sexual assult? Call [facility] 24 hour Crisis Hotline: 858.527.2269 or 441-887-4029. MANUAL Your Guide to a Healthy manual is now on-line. Visit [email or web address] to download your free copy [facility] [place] Telephone encounter Note * Telephone Encounter - Margarita Hearn RN - 06/14/2024 11:06 AM EST Faxed via [employer]. Margarita Hearn RN [facility]12-23-2024 Miscellaneous Notes* Telephone Encounter - Margarita Hearn RN - 06/14/2024 11:06 AM EST Faxed via [employer]. Margarita Hearn, RN * Telephone Encounter - Jennifer Roldan - 06/14/2024 10:28 AM EST [facility] OB is requesting H&P to be faxed to [phone]. [facility] [place] Telephone encounter Note * Telephone Encounter - Jennifer Roldan - 06/14/2024 10:28 AM EST [facility] OB is requesting H&P to be faxed to [phone]. [facility]12-21-2024 Note Indication Evaluation of growth, Evaluation of [...] 15 oz EFW by: [employer] (HC-AC-FL) Extended Reinforcing Steel Erector 5.7 mm Extremities / Bony Struc [place] [...] to know sex: yes Performed By: Khushboo Easley, THEODORE, RVT Read By: Tyler Farrell M.D.MATERNAL [id number] NoteHNO ID: [id number] Author: SARAH HUBER MD Service: ? Author [...] None Interpretation: Category I and Reactive SIGNATURE: [facility] History of Present illness Narrative* Sarah Huber [...] SIGNATURE: Sarah Warner MD documented [facility] [place] Progress note* Quick Notes - Sarah Huber [...] GROUP B STREP PCR Sarah Warner MD [facility]12-20-2024 Miscellaneous Notes* Quick Notes - Sarah Huber [...] Supervision of high risk in third trimester [facility] [place] 11/28 -2 breathing, NST today Orders: URINE [...] PCR Sarah Warner MD documented in [facility] [place] Instructions* Patient Instructions* Terrie Ramirez MA - 06/11/2024 10:48 AM EST SEQUENTIAL SCREENINGS The [facility] offers sequential screenings for women who are [...] testing. It will require an appointment withour pulmonary function technician. This is not an ultrasound performed by [...] the above symptoms, contact our office at [phone] and ask to speak with anurse. After hours, you can call doctors registry at [phone] OR call [facility] at [phone] ask to have the doctor hospice nurse practitioner paged. If you consider this an emergency, dial 9-1-1 or go to your nearest emergency department. NEED HELP? Are you dealing with a violent or abusive relationship? Are you a victim of rape or sexual assult? Call [facility] 24 hour Crisis Hotline: 810.914.2299 or 450-100-9529. MANUAL Your Guide to a Healthy manual is now on-line. Visit [email or web address] to download your free copy documented [facility] [place]24 NoteHNO ID: [id number] Author: CARLOS MORALES RN Service: ? Author [...] a provider for review and evaluation for treatment.[facility]12-18-2024 History of Present illness Narrative* Carlos Morales RN - 06/09/2024 1:16 PM EST Patient referred [...] and evaluation for treatment. documented [facility] [place] Telephone encounter Note * Telephone Encounter - Margarita Hearn RN - 06/03/2024 3:54 PM EST 35w4d Patient notified. Will have iron studies drawn tomorrow. Margarita Hearn RN [facility]12-12-2024 Miscellaneous Notes* Telephone Encounter - Margarita Hearn RN - 06/03/2024 3:54 PM EST 35w4d Patient notified. Will have iron studies drawn tomorrow. Margarita Hearn RN * Telephone Encounter - Margarita Hearn RN - 06/03/2024 3:15 PM EST Patient will need to have iron studies drawn first before Blood Management can work on referral. Please file pending orders. Will then call patient. Margarita Highman, RN * Telephone Encounter - Halle Orellana APRN.CNP - 06/03/2024 3:07 PM EST Hemoglobin 8.8. Blood management referral placed. Please assist in arranging. Halle Orellana APRN.CNP documented in [facility] [place] Telephone encounter Note * Telephone Encounter - Margarita Hearn RN - 06/03/2024 3:15 PM EST Patient will need to have iron studies drawn first before Blood Management can work on referral. Please file pending orders. Will then call patient. Margarita Hearn RN [facility]12-12-2024 Telephone encounter Note* Telephone Encounter - Halle Orellana APRN.CNP - 06/03/2024 3:07 PM EST Hemoglobin 8.8. Blood management referral placed. Please assist in arranging. Halle Orellana APRN.CNP [facility]12-12-2024 NoteHNO ID: [id number] Author: HALLE ORELLANA APRN.CNP Service: ? Author Type: Nurse Practitioner Type: Procedures Filed: 06/03/2024 14:58 Note Text: NST SUMMARY PROVIDER ASSESSMENT AND INTERPRETATION Indications for NST: Previous IUFD Baseline: 120 Variability: Moderate Accelerations: Present 15 X 15 Decelerations: None Interpretation: Reactive SIGNATURE: [facility] Procedure note* Halle Orellana APRN.CNP - 06/03/2024 2:04 PM EST NST SUMMARY PROVIDER ASSESSMENT AND INTERPRETATION Indications for NST: Previous IUFD Baseline: 120 Variability: Moderate Accelerations: Present 15 X 15 Decelerations: None Interpretation: Reactive SIGNATURE: Halle Orellana APRN.CNP [facility] [place]12-12-2024 Procedure note* Halle Orellana APRN.CNP - 06/03/2024 2:04 PM EST NST SUMMARY PROVIDER ASSESSMENT AND INTERPRETATION Indications for NST: Previous IUFD Baseline: 120 Variability: Moderate Accelerations: Present 15 X 15 Decelerations: None Interpretation: Reactive SIGNATURE: Halle Orellana APRN.CNP documented in this encounter[facility] [place] Progress note* Quick Notes - Halle Orellana [...] week or sooner as needed. Halle Orellana APRN.KAITLYNN [facility] [place]12-12-2024 Miscellaneous Notes* Quick Notes - Halle Orellana APRN.CNP - [...] week or sooner as needed. Halle Orellana APRN.CNP documented in this encounterSelect [facility] [place] Instructions* Patient Instructions* Alicia Holliday MA - 06/03/2024 1:45 PM EST SEQUENTIAL SCREENINGS The [facility] [place] offers sequential screenings for women who are [...] testing. It will require an appointment withour pulmonary function technician. This is not an ultrasound performed by [...] the above symptoms, contact our office at [phone] and ask to speak with anurse. After hours, you can call doctors registry at [phone] OR call [facility] at [phone] ask to have the doctor hospice nurse practitioner paged. If you consider this an emergency, dial 9-1-1 or go to your nearest emergency department. NEED HELP? Are you dealing with a violent or abusive relationship? Are you a victim of rape or sexual assult? Call [facility] ([place]) 24 hour Crisis Hotline: 776.787.4564 or 841-615-6984. MANUAL Your Guide to a Healthy manual is now on-line. Visit [email or web address] to download your free copy documented in this encounterSelect [facility] [place]24 NoteHNO ID: [id number] Author: JEANETTE PATEL MD Service: ? Author [...] Contractions: TOCO: None Interpretation: Reactive SIGNATURE: Jeanette Ptael [facility]12-03-2024 History of Present illness Narrative* Jeanette [...] SIGNATURE: Jeanette Patel MD documented in this encounterSelect [facility] [place] Progress note* Quick Notes - Jeanette Patel MD - 05/25/2024 1:37 PM EST KJ - VB No. LOF No. CTXS No. Movement: present. Other c/o: No. Medication list reviewed. Physical Exam See Flow Sheet Gen: no accute distress, well appearing A/P 34w2d Estimated Date of Delivery: 07/04/24 H/o IUFD - continue weekly NSTs PTL precautions reviewed, Kick counts reviewed. Jeanette Patel MD [facility] [place]12-03-2024 Miscellaneous Notes* Quick Notes - Jeanette Patel [...] reviewed. Jeanette Patel MD documented in this encounterSelect [facility] [place]12-[facility]-2024 Instructions* Patient Instructions* Babita Blankenship LPN - 05/25/2024 1:15 PM EST SEQUENTIAL SCREENINGS The [facility] [place] offers sequential screenings for women who are [...] testing. It will require an appointment withour pulmonary function technician. This is not an ultrasound performed by [...] the above symptoms, contact our office at [phone] and ask to speak with anurse. After hours, you can call doctors registry at [phone] OR call [facility] at [phone] ask to have the doctor hospice nurse practitioner paged. If you consider this an emergency, dial 9--0 or go to your nearest emergency department. NEED HELP? Are you dealing with a violent or abusive relationship? Are you a victim of rape or sexual assult? Call [facility] ([place]) 24 hour Crisis Hotline: 253.953.9938 or 194-882-8129. MANUAL Your Guide to a Healthy manual is now on-line. Visit [email or web address] to download your free copy documented in this encounterSelect [facility] [place]11-28-2024 Telephone encounter Note * Telephone Encounter - Rex Nam RN - 05/20/2024 3:57 PM EST Reason for call: Patient's calling regarding [employer] page sent. Patient missed the call fromprovider, requesting that another page be sent. Outcome: Conferenced to [place] [employer] [facility] [ ] to speak with provider oncall for Dr. Alcala. Per Boo at answering service, calls needs to be handled by Cueto. Transferred to [facility] proof operator (), states that page was sent for [employer] hospice nurse practitioner. Updated patient's on plan of care, verbalized understanding, no further questions/concerns at this time. GO TO THE EMERGENCY ROOM OR CALL 911 IF: * You develop any new symptoms * Your condition worsens * You are concerned or anxious about your condition for any other reason. If you have any questions, you can call Nurse etch operator [employer] back. [facility] [place]11-28-2024 Miscellaneous Notes* Telephone Encounter - Rex Nam RN - 05/20/2024 3:57 PM EST Reason for call: Patient's calling regarding [employer] page sent. Patient missed the call fromprovider, requesting that another page be sent. Outcome: Conferenced to [place] [employer] [facility] [ ] to speak with provider priscilla for Dr. Alcala. Per Boo at answering service, calls needs to be handled by Nory. Transferred to [facility] proof operator (), states that page was sent for [employer] hospice nurse practitioner. Updated patient's on plan of care, verbalized understanding, no further questions/concerns at this time. GO TO THE EMERGENCY ROOM OR CALL 911 IF: * You develop any new symptoms * Your condition worsens * You are concerned or anxious about your condition for any other reason. If you have any questions, you can call Nurse etch operator [employer] back. documented in this encounterSelect [facility] [place]11-28-2024 Telephone encounter Note * Telephone Encounter - Deanna Olivares RN - 05/20/2024 3:36 PM EST Patient calling regarding she is 34 weeks and is having swelling in her feet and hands. Conferenced to [place] [employer] [facility] [phone] to speak with provider hospice nurse practitioner for Dr. Margarita Alcala. [facility] [place]11-28-2024 Miscellaneous Notes* Telephone Encounter - Deanna Olivares RN - 05/20/2024 3:36 PM EST Patient calling regarding she is 34 weeks and is having swelling in her feet and hands. Conferenced to [place] [employer] [facility] [phone] to speak with provider hospice nurse practitioner for Dr. Margarita Alcala. documented in this encounterSelect [facility] [place]2024 Progress note* Quick Notes - Sarah Huber MD - 05/12/2024 3:59 PM EST DM-Pt doing well. Denies vaginal Bleeding, Leaking fluid, or regular Contractions. Pt reports good movement. Had growth us and bpp today. Physical Exam: Gen: female in no apparent distress Abd: soft, Gravid. Non tender to palpation. See flow sheet @ 32.3 [facility] Assessment & Plan Supervision of high risk in third trimester History of IUFD 32 weeks gestation of Orders: RSV VACCINE, BIVALENT (ABRYSVO) weekly NSTs Kick counts , RTO 2 wks routine OB, NST weekly Needs to start Iron Sarah Warner MD [facility] [place]11-20-2024 Miscellaneous Notes* Quick Notes - Sarah Huber MD - 05/12/2024 3:59 PM EST DM-Pt doing well. Denies vaginal Bleeding, Leaking fluid, or regular Contractions. Pt reports good movement. Had growth us and bpp today. Physical Exam: Gen: female in no apparent distress Abd: soft, Gravid. Non tender to palpation. See flow sheet @ 32.3 [facility] Assessment & Plan Supervision of high risk in third trimester History of IUFD 32 weeks gestation of Orders: RSV VACCINE, BIVALENT (ABRYSVO) weekly NSTs Kick counts , RTO 2 wks routine OB, NST weekly Needs to start Iron Sarah Warner MD documented in this encounterSelect [facility] [place]2024 Note Indication Evaluation of growth, Evaluation of [...] movements 2: tone 2: Amniotic fluid volume 01/28 Biophysical profile score Growth Overview Exam date [...] 12 oz EFW by: Hadlock (HC-AC-FL) Extended Reinforcing Steel Erector 3.5 mm Extremities / Bony Struc FL [...] RDMS, RVT Read By: Tyler Farrell M.D.MATERNAL [id number] Instructions* Patient Instructions* Terrie Ramirez MA - 05/12/2024 3:26 PM EST SEQUENTIAL SCREENINGS The [facility] [place] offers sequential screenings for women who are [...] testing. It will require an appointment withour pulmonary function technician. This is not an ultrasound performed by [...] the above symptoms, contact our office at [phone] and ask to speak with anurse. After hours, you can call doctors registry at [phone] OR call [facility] at [phone] ask to have the doctor hospice nurse practitioner paged. If you consider this an emergency, dial or go to your nearest emergency department. NEED HELP? Are you dealing with a violent or abusive relationship? Are you a victim of rape or sexual assult? Call [facility] ([place]) 24 hour Crisis Hotline: 485.136.6164 or 612-608-3046. MANUAL Your Guide to a Healthy manual is now on-line. Visit [email or web address] to download your free copy documented in this encounterSelect [facility] [place]11-07-2024 Telephone encounter Note * Telephone Encounter - Nicci Mckeon RN - 04/29/2024 9:35 AM EST Pt notified of need for weekly NSTs starting at 32 weeks. Appointments set up for next 3 weeks. Nicci Mckeon RN [facility] [place]11-07-2024 Telephone encounter Note* Telephone Encounter - Nicci Mckeon RN - 04/29/2024 9:35 AM EST Images from the original note were not included. Margarita Alcala MD P [facility] [[email or web address] [employer]Contracts Law Professor Pool This patient is also suppose to be weekly NSTs at 32 weeks because of HX of IUFD (MFM recommended) She was suppose to schedule theses as she left and it does not appear she did. [facility] [place]11-07-2024 Miscellaneous Notes* Telephone Encounter - Nicci Mckeon RN - 04/29/2024 9:35 AM EST Pt notified of need for weekly NSTs starting at 32 weeks. Appointments set up for next 3 weeks. Nicci Mckeon RN * Telephone Encounter - Nicci Mckeon RN - 04/29/2024 9:35 AM EST Images from the original note were not included. Margarita Alcala MD P [facility] [[email or web address]] Ob-Contracts Law Professor Pool This patient is also suppose to be weekly NSTs at 32 weeks because of HX of IUFD (MFM recommended) She was suppose to schedule theses as she left and it does not appear she did. documented in this encounterSelect [facility] [place]11-06-2024 Progress note* Quick Notes - Margarita Alcala [...] weeks - NON-STRESS TEST Margarita Alcala MD [facility] [place]11-06-2024 Miscellaneous Notes* Quick Notes - Margarita Alcala [...] TEST Margarita Alcala MD documented in this encounterSelect [facility] [place]11-06-2024 Instructions* Patient Instructions* Terrie Ramirez MA - 04/28/2024 1:29 PM EST SEQUENTIAL SCREENINGS The [facility] [place] offers sequential screenings for women who are [...] testing. It will require an appointment withour pulmonary function technician. This is not an ultrasound performed by [...] the above symptoms, contact our office at [phone] and ask to speak with anurse. After hours, you can call doctors registry at [phone] OR call [facility] at [phone] ask to have the doctor hospice nurse practitioner paged. If you consider this an emergency, dial 9-1-9 or go to your nearest emergency department. NEED HELP? Are you dealing with a violent or abusive relationship? Are you a victim of rape or sexual assult? Call [facility] ([facility] 24 hour Crisis Hotline: 463.919.3218 or 885-435-7103. MANUAL Your Guide to a Healthy manual is now on-line. Visit [email or web address]/[email or web address] to download your free copy documented in this encounterSelect [facility] [place]10-31-2024 Telephone encounter Note * Telephone Encounter - Margarita Hearn RN - 04/22/2024 4:43 PM EDT Left detailed message on identified voicemail. Margarita Hearn RN [facility] [place]10-31-2024 Miscellaneous Notes* Telephone Encounter - Margarita Hearn [...] you. Margarita Hearn RN documented in this encounterSelect Medical [facility] [place]10-31-2024 Telephone encounter Note * Telephone Encounter - Johana Turner APRN.CNM - 04/22/2024 3:06 PM EDT If patient is not having any current pain or cramping, and feeling positive movement, I am fine forher to monitor at home. She can be seen tomorrow in office if needed. Johana Turner APRN.CNM [facility] [place] Work Phone: 1(749) 486-844110-31-2024 Telephone encounter Note* Telephone Encounter - Margarita [...] can patient be added. Thank you. Margarita Hearn, RN [facility] [place]10-28-2024 Telephone encounter Note* Telephone Encounter - Carla Mckinney RN - 04/19/2024 8:48 AM EDT 3rd risk assessment form submitted 04/19/24 Carla Mckinney RN [facility] [place]10-28-2024 Miscellaneous Notes* Telephone Encounter - Carla Mckinney RN - 04/19/2024 8:48 AM EDT 3rd risk assessment form submitted 04/19/24 Carla Mckinney RN documented in this encounterSelect [facility] [place]10-23-2024 Note Indication Evaluation of growth Maternal obesity, [...] 9 oz EFW by: Hadlock (HC-AC-FL) Extended Reinforcing Steel Erector 3.5 mm Extremities / Bony Struc FL [...] RDMS, RVT Read By: Tyler Farrell M.D.MATERNAL [id number] Progress note* Quick Notes - Margarita Alcala [...] ICD10: Z23 Tdap today Margarita Alcala MD [facility] [place]10-23-2024 Miscellaneous Notes* Quick Notes - Margarita Alcala [...] today Margarita Alcala MD documented in this encounterSelect [facility] [place]10-23-2024 NoteHNO ID: [id number] Author: IDA CISNEROS MA Service: ? Author Type: Painting Technician Type: Progress Notes Filed: 04/14/2024 11:09 Note [...] severely ill: Yes Patient denies history of Guillain-[place] Syndrome (a severe paralytic illness): Yes Tdap Adacel injection was given without incident. See immunizations for details of immunizations administered today. VIS sheet provided: Yes Provider Margarita Alcala MD was present in office at time of injection. [facility] History of Present illness Narrative* Ida Cisneros [...] severely ill: Yes Patient denies history of Guillain-[place] Syndrome (a severe paralytic illness): Yes Tdap Adacel injection was given without incident. See immunizations for details of immunizations administered today. VIS sheet provided: Yes Provider Margarita Alcala MD was present in office at time of injection. Ida Cisneros MA documented in this encounterSelect Medical [facility] [place]-2024 Instructions* Patient Instructions* Ida Cisneros MA - 04/14/2024 10:26 AM EDT SEQUENTIAL SCREENINGS The [facility] [place] offers sequential screenings for women who are [...] testing. It will require an appointment withour pulmonary function technician. This is not an ultrasound performed by [...] the above symptoms, contact our office at [phone] and ask to speak with anurse. After hours, you can call doctors registry at [phone] OR call [facility] at [phone] ask to have the doctor hospice nurse practitioner paged. If you consider this an emergency, dial or go to your nearest emergency department. NEED HELP? Are you dealing with a violent or abusive relationship? Are you a victim of rape or sexual assult? Call [facility] ([place]) 24 hour Crisis Hotline: 225.601.9537 or 453-277-8746. MANUAL Your Guide to a Healthy manual is now on-line. Visit [email or web address] to download your free copy documented in this encounterSelect [facility] [place]10-[facility]-2024 Progress note* Quick Notes - Marcela Connors APRN.CNM - 04/02/2024 4:21 PM EDT FRANCISS: Shilpa Hoang is a 28 year old [...] scheduled for routine visit Marcela Connors APRN.CNM [facility] [place] Work Phone: [phone] Miscellaneous Notes* Quick Notes - Marcela Connors [...] visit Marcela Connors APRN.CNM documented in this encounterSelect Medical [facility] [place]10-11-2024 Instructions* Patient Instructions* Shahzad Romero MA - 04/02/2024 4:18 PM EDT SEQUENTIAL SCREENINGS The [facility] [place] offers sequential screenings for women who are [...] testing. It will require an appointment withour pulmonary function technician. This is not an ultrasound performed by [...] the above symptoms, contact our office at [phone] and ask to speak with anurse. After hours, you can call doctors registry at [phone] OR call [facility] at [phone] ask to have the doctor hospice nurse practitioner paged. If you consider this an emergency, dial 9-1-4 or go to your nearest emergency department. NEED HELP? Are you dealing with a violent or abusive relationship? Are you a victim of rape or sexual assult? Call [facility] ([place]) 24 hour Crisis Hotline: 736.915.4177 or 763-401-6865. MANUAL Your Guide to a Healthy manual is now on-line. Visit [email or web address] to download your free copy documented in this encounterSelect Medical [facility] [place]09-25-2024 Note Indication Evaluation of growth IUFD 26 [...] 9 oz EFW by: Hadlock (HC-AC-FL) Extended Reinforcing Steel Erector 3.3 mm Extremities / Bony Struc FL [...] RDMS, RVT Read By: Tyler Farrell M.D.MATERNAL [id number] Progress note* Quick Notes - Jt Lugo [...] SYPHILIS TOTAL W/REFLEX; Future Jt Lugo M.D. [facility] [place]09-25-2024 Miscellaneous Notes* Quick Notes - Jt Lugo [...] Future Jt Lugo M.D. documented in this encounterSelect Medical [facility] [place]09-25-2024 Instructions* Patient Instructions* Babita Blankenship LPN - 03/17/2024 2:46 PM EDT SEQUENTIAL SCREENINGS The [facility] [place] offers sequential screenings for women who are [...] testing. It will require an appointment withour pulmonary function technician. This is not an ultrasound performed by [...] the above symptoms, contact our office at [phone] and ask to speak with anurse. After hours, you can call doctors registry at [phone] OR call [facility] at [phone] ask to have the doctor hospice nurse practitioner paged. If you consider this an emergency, dial 91-0 or go to your nearest emergency department. NEED HELP? Are you dealing with a violent or abusive relationship? Are you a victim of rape or sexual assult? Call [facility] 24 hour Crisis Hotline: 424.927.2169 or 639-334-3348. MANUAL Your Guide to a Healthy manual is now on-line. Visit [email or web address] to download your free copy SEQUENTIAL SCREENINGS The [facility] [place] offers sequential screenings for women who are [...] testing. It will require an appointment withour pulmonary function technician. This is not an ultrasound performed by [...] the above symptoms, contact our office at [phone] and ask to speak with anurse. After hours, you can call doctors registry at [phone] OR call [facility] at [phone] ask to have the doctor hospice nurse practitioner paged. If you consider this an emergency, dial 02-21-1 or go to your nearest emergency department. NEED HELP? Are you dealing with a violent or abusive relationship? Are you a victim of rape or sexual assult? Call [facility] ([place]) 24 hour Crisis Hotline: 771.911.1833 or 247-076-3465. MANUAL Your Guide to a Healthy manual is now on-line. Visit [email or web address] to download your free copy documented in this encounterSelect [facility] [place]24 Telephone encounter Note * Telephone Encounter - Carla Mckinney RN - 02/18/2024 9:53 AM EDT 2nd risk assessment form submitted 02/18/24 Carla Mckinney RN [facility] [place]08-28-2024 Miscellaneous Notes* Telephone Encounter - Carla Mckinney RN - 02/18/2024 9:53 AM EDT 2nd risk assessment form submitted 02/18/24 Carla Mckinney RN documented in this encounterSelect [facility] [place]08-27-2024 Progress note* Quick Notes - Margarita Alcala [...] ICD10: Z87.59 Nml BP Margarita Alcala MD [facility] [place]08-27-2024 Miscellaneous Notes* Quick Notes - Margarita Alcala [...] BP Margarita Alcala MD documented in this encounterSelect [facility] [place]08-27-2024 Instructions* Patient Instructions* Ida Cisneros MA - 02/17/2024 9:23 AM EDT SEQUENTIAL SCREENINGS The [facility] [place] offers sequential screenings for women who are [...] testing. It will require an appointment withour pulmonary function technician. This is not an ultrasound performed by [...] the above symptoms, contact our office at [phone] and ask to speak with anurse. After hours, you can call doctors registry at [phone] OR call [facility] at [phone] ask to have the doctor hospice nurse practitioner paged. If you consider this an emergency, dial 9-1-1 or go to your nearest emergency department. NEED HELP? Are you dealing with a violent or abusive relationship? Are you a victim of rape or sexual assult? Call [facility] ([place]) 24 hour Crisis Hotline: 598.165.9946 or 129-212-5554. MANUAL Your Guide to a Healthy manual is now on-line. Visit [email or web address]/[email or web address] to download your free copy documented in this encounterSelect Medical Cleveland [facility] [place]08-27-2024 NoteHNO ID: [id number] Author: TYLER FARRELL MD Service: ? Author Type: Physician Type: Progress Notes Filed: 02/17/2024 09:38 Note Text: [employer] [place] OUTPATIENT VISIT DATE February 17, 2024 OUTPATIENT VISIT TYPE CONSULT REFERRING PROVIDER: Jeanette Patel MD Recommendations from today's consultation will be conveyed through the electronic medical record. 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 [employer] OUTPATIENT VISIT DATE February 17, 2024 OUTPATIENT VISIT TYPE CONSULT REFERRING PROVIDER: Jeanette Patel MD Recommendations from today's consultation will be conveyed through the electronic medical record. History of Present Illness: 28 year old at 20w2d with Estimated Date of Delivery: 07/04/24 presenting for consultation with Maternal- Medicine at the [facility] [place] in the setting of complicated history of [...] Living: Demise, Comments: IUFD, placenta fragmented-manually removed, [id number], pt went to [facility] for fever and [...] Reported on 02/17/2024) Allergies: ALLERGIES Allergen Reactions [place] Anaphylaxis [employer] Intolerance Seasonal Allergies Cough Social History: Social [...] Recommendations: Problem List Items Addressed This Visit INDUSTRIAL [employer]OOK History of gestational hypertension - Primary Current [...] 17, 2024 9:08 AM documented [facility] [place] Miscellaneous Notes* Quick Notes - Sarah Huber MD - 01/20/2024 3:03 PM EDT DM-Pt doing well. Denies vaginal Bleeding, Leaking fluid, or regular Contractions. Pt reports good movement Physical Exam: Gen: female in no apparent distress Abd: soft, Gravid. Non tender to palpation. See flow sheet A/P: @ 16.2 weeks 1) anatomy us scheduled with [facility] 2) continue ASA 3) second trimester screen today 4) RTO 4 wks. Sarah Warner MD documented in [facility] [place] Progress note* Quick Notes - Sarah Huber MD - 01/20/2024 3:03 PM EDT DM-Pt doing well. Denies vaginal Bleeding, Leaking fluid, or regular Contractions. Pt reports good movement Physical Exam: Gen: female in no apparent distress Abd: soft, Gravid. Non tender to palpation. See flow sheet A/P: @ 16.2 weeks 1) anatomy us scheduled with M 2) continue ASA 3) second trimester screen today 4) RTO 4 wks. Sarah Warner MD [facility] [place]07-19-2024 Telephone encounter Note* Telephone Encounter - Jeanette Patel MD - 01/09/2024 10:37 AM EDT Noted & agree Jeanette Patel MD [facility] [place]07-19-2024 Miscellaneous Notes* Telephone Encounter - Jeanette Patel [...] pain. Margarita Hearn RN documented in this encounter[facility] [place] Telephone encounter Note * Telephone Encounter - Margarita Hearn RN - 01/09/2024 8:36 AM EDT 14w5d Called and spoke with patient. She had light pink spotting during intercourse. Once intercourse discontinued, her spotting stopped. Not having any this morning. Denies pain last night or today. Advised to call the office if her bleeding returns or if she develops pain. Margarita Hearn RN [facility] [place]07-11-2024 Progress note* Quick Notes - Jeanette Patel [...] hypertension - continue aspirin Jeanette Patel MD [facility] [place]07-11-2024 Miscellaneous Notes* Quick Notes - Jeanette Patel [...] aspirin Jeanette Patel MD documented [facility] [place] Instructions* Patient Instructions* Shahzad Romero MA - 01/01/2024 9:55 AM EDT SEQUENTIAL SCREENINGS The [facility] [place] offers sequential screenings for women who are [...] testing. It will require an appointment withour pulmonary function technician. This is not an ultrasound performed by [...] the above symptoms, contact our office at [phone] and ask to speak with anurse. After hours, you can call doctors registry at [phone] OR call [facility] at [phone] ask to have the doctor hospice nurse practitioner paged. If you consider this an emergency, dial 9--6 or go to your nearest emergency department. NEED HELP? Are you dealing with a violent or abusive relationship? Are you a victim of rape or sexual assult? Call [facility] ([place]) 24 hour Crisis Hotline: 669.375.9889 or 263-071-0450. MANUAL Your Guide to a Healthy manual is now on-line. Visit [email or web address] to download your free copy documented [facility] [place] Telephone encounter Note * Telephone Encounter - Sarah Huber MD - 12/22/2023 3:06 PM EDT signed [facility] [place]07-01-2024 Miscellaneous Notes* Telephone Encounter - Sarah Huber MD - 12/22/2023 3:06 PM EDT signed * Telephone Encounter - Khushboo bAraham RN - 12/22/2023 3:04 PM EDT Patient [...] her? Margarita Hearn RN documented in this encounter[facility] [place] Telephone encounter Note * Telephone Encounter - Khushboo Abraham RN - 12/22/2023 3:04 PM EDT Patient notified and voiced understanding. Please file pended order. Khushboo Abraham RN [facility] [place]07-01-2024 Telephone encounter Note* Telephone Encounter - Sarah Huber MD - 12/22/2023 2:51 PM EDT Phenergan ordered [facility] [place]07-01-2024 Telephone encounter Note* Telephone Encounter - Margarita [...] called in for her? Margarita Hearn RN [facility] [place]06-10-2024 Progress note* Quick Notes - Tyshawn Lorenzana MD - 12/01/2023 12:16 PM EDT Pt is a multip presenting at 9w1d with c/o cramping in the absence of UTI and concerns regarding status. Recent trips t0 [facility] ER with dx of URI/viral and currently on amox per Dr. Irina Mckinney, Pt denies bleeding and is refraining from intercourse (last time 2 days ago) with exacerbation of cramps. Trans abdominal sono reveals heart activity. IMP viable IUP at 9w1d Plan no intercourse and otherwise activity other than heavy lifting. RTO PNC as scheduled Tyshawn Lorenzana MD . [facility] [place] Work Phone: 1(942) 707-375206-10-2024 Miscellaneous Notes* Quick Notes - Tyshawn Lorenzana MD - 12/01/2023 12:16 PM EDT Pt is a multip presenting at 9w1d with c/o cramping in the absence of UTI and concerns regarding status. Recent trips t0 [facility] ER with dx of URI/viral and currently on amox per Dr. Irina Mckinney, Pt denies bleeding and is refraining from intercourse (last time 2 days ago) with exacerbation of cramps. Trans abdominal sono reveals heart activity. IMP viable IUP at 9w1d Plan no intercourse and otherwise activity other than heavy lifting. RTO PNC as scheduled Tyshawn Lorenzana MD . documented in this encounter[facility] [place] Instructions* Patient Instructions* La Bowden MA - 12/01/2023 12:00 PM EDT SEQUENTIAL SCREENINGS The [facility] [place] offers sequential screenings for women who are [...] testing. It will require an appointment withour pulmonary function technician. This is not an ultrasound performed by [...] the above symptoms, contact our office at [phone] and ask to speak with anurse. After hours, you can call doctors registry at [phone] OR call [facility] at [phone] ask to have the doctor hospice nurse practitioner paged. If you consider this an emergency, dial 1 or go to your nearest emergency department. NEED HELP? Are you dealing with a violent or abusive relationship? Are you a victim of rape or sexual assult? Call [facility] ([place]) 24 hour Crisis Hotline: 257.297.5771 or 897-631-7697. MANUAL Your Guide to a Healthy manual is now on-line. Visit [email or web address] to download your free copy documented in this encounter[facility] [place] Telephone encounter Note * Telephone Encounter - Liza Champagne RN - 11/14/2023 9:56 AM EDT 1st risk assessment form submitted 11/14/2023 6w 5d today [facility] [place]05-24-2024 Miscellaneous Notes* Telephone Encounter - Liza Champagne RN - 11/14/2023 9:56 AM EDT 1st risk assessment form submitted 11/14/2023 6w 5d today documented in this encounter[facility] [place]24 History of Present illness Narrative* Sharda Valero APRN.LEGAL ADVISOR - 11/10/2023 3:12 PM EDT INITIAL OB [...] Status:Co-habitating Partner: Name: Sarath Age: 31 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 Sharda Valero APRN.CNP ASSESSMENT: 27 year old No obstetric history on file. at Unknown wks gestational age PLAN: 1) Patient oriented to practice. Patient given new OB orientation folder. Discussed nutrition, folic acid supplementation, dietary guidelines, exercise, smoking, alcohol, caffeine, and drug use. Discussed gestational weight gain guidelines. Discussed routine OB labs including STD/HIV. Discussed how to access Your guide to a health and the Optical Laboratory Technician. Discussed hemoglobin electrophoresis. Patient: Declines Reviewed midwifery and sales support rep services that are available. 2) Screening: Hemoglobin [...] 5 weeks or sooner prn. Sharda Valero APRN.CNP documented in this encounter[facility] [place]-20-2024 Instructions* Patient Instructions* Rachana Mnotanez LPN - 11/10/2023 3:12 PM EDT Please select the following link to access the [facility] [place] Your Guide to a Healthy . [email or web address] Please select the following link to access the [facility] [place] Your Guide to a Healthy . [email or web address] documented in this encounterSelect [facility] [place]01-[facility]-2024 Discharge summary Author Piter Bertrand [facility] July 17, 2023 4:54pm Note Date/Time July 17, 2023 4 :55pm [facility] Medical Records Department [address] [place] [address] Emergency Department Summary 07/17/23 MR#: [id number] Acct: [id number] Name: SHILPA HOANG Rep #:[id number] : [...] depression (spontaneous vaginal delivery) Trauma Home Medications [id number] 1 mg tablet 1 tab PO DAILY [...] and lower extremities. 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 Dorsi plantarflexion intact. Mild tenderness right posterior upper shoulder no bruising. Full range of motion of the right shoulder. Able to lift her arm overhead. Full flexion extension of the right elbow nontender. Minimal tenderness to the dorsum of the right wrist no deformity normal radial pulse normal retail delivery driver strength and sensation of the right hand. [...] 16:49 EST Reading Location ID and State: [address] [place] [address] , Service support , Wrist X-Ray 07/17/23 [...] your Primary Care Provider. Call Doctors Registry ([phone]) or report to the closest Emergency Room. Call 911 if necessary. 07/17/23 8877 <Electronically signed by Piter Bertrand MD> Cosigner Signature (if applicable): CC: Dr. David Mckinney MD ~ Signed [facility] Work Phone: 1(115) 447-717210-25-2023 Discharge summary Author Joanna England [facility] April 16, 2023 11:19am Note Date/Time April 16, 2023 1 1:19am [facility] Physical Therapy [facility] [address] [place] [address] [address] [place] [address] / REHABILITATION SERVICES DISCHARGE SUMMARY MR#: [id number] Acct: [id number] Name: SHILPA HOANG Rep #: [id number] : 1995 27 From: Joanna England PT, Cert. T Referring Dr.: Dr. David Mckinney MD Status: REG [facility] Insurance: [facility] SELF PAY INSURANCE Patient Information Patient Information: [...] Dr. David Mckinney MD ~ DENICE Signed [facility] Work Phone: 1(326) 194-611105-10-2023 NotePap Smear Specimen AdequacyMay 2022 1:29pmComment.Satisfactory for evaluation. Endocervical and/or squamous metaplasticcells (endocervical component)are present.Areas of partially obscuring inflammatory exudate are present.[facility] INTER[facility]ACED A#[id number] HospitalComp[facility] on above:Satisfactory for evaluation. Endocervical and/or squamous metaplasticcells (endocervical component)are present.Areas of partially obscuring inflammatory exudate are present.10-30-2022 NotePap Smear Specimen AdequacyMay 2022 1:29pmComment.Satisfactory for evaluation. Endocervical and/or squamous metaplasticcells (endocervical component)are present.Areas of partially obscuring inflammatory exudate are present.[facility] INTERFACED A#[id number] HospitalComprom[facility] on above:Satisfactory for evaluation. Endocervical and/or squamous metaplasticcells (endocervical component)are present.Areas of partially obscuring inflammatory exudate are present.10-30-2022 NotePap Smear Specimen AdequacyMay 2022 1:29pmComment. Satisfactory for evaluation. Endocervical and/or squamous metaplasticcells (endocervical component)are present.Areas of partially obscuring inflammatory exudate are present.[facility] INTERFACED A#[id number] Hospital Comment on above:Satisfactory for evaluation. Endocervical and/or squamous metaplasticcells (endocervical component)are present.Areas of partially obscuring inflammatory exudate are present.06-07-2022 Miscellaneous Notes* Addendum Note - Everardo Patel APRN.CNP - 06/07/2022 7:56 PM ESTAddended by: EVERARDO PATEL on: 06/07/2022 07:56 PM Modules accepted: Orders documented in this encounter[facility] [place] History of Present illness Narrative* Everardo Patel APRN.CNP - 06/07/2022 7:04 PM EST CC: Patient [...] Patient agreeable to treatment plan. Everardo Patel APRN.LEGAL ADVISOR documented in this encounter[facility] [place]-2022 Hospital Discharge instructions Additional Instructions Regular diet. Weightbearing as tolerated. Okay to shower. No intercourse for 4 to 6 weeks. Call if chest pain, shortness of breath increased bleeding. Follow-up 1 week for blood pressure check, 4 to 6 weeks for visit Date of Discharge: 02/22/22[facility] Work Phone: Evaluation note* Diagnosis Onset Date Resolution Status 22 weeks gestation of acute Vaginal bleeding during , antepartum acute [facility] Work Phone: Evaluation note* Diagnosis Onset Date Resolution Status 22 weeks gestation of acute Vaginal bleeding during , antepartum acute [facility] Work Phone: evaluation note* Diagnosis Onset Date Resolution Status 22 weeks gestation of acute Vaginal bleeding during , antepartum acute acute Irregular contractions acute Gestational hypertension acu [facility] Work Phone: evaluation note* Diagnosis Acute otitis media, right- Primary Unspecified otitis media URI, acute Acute upper respiratory infections of unspecified site documented [facility] this encounter [facility] noteNo assessment information availableWTriHealth Work Phone: Evaluation note* Diagnosis 6 weeks gestation of - Primary state, incidental care, subsequent in first trimester Encounter for supervision of normal in multigravida in first trimester History of gestational hypertension History of IUFD documented in this encounter [facility] note* Diagnosis Encounter for supervision of other normal in second trimester- Primary 13 weeks gestation of state, incidental History of IUFD documented in this encounter [facility] note* Diagnosis Encounter for (NT) nuchal translucency scan- Primary Other specified screening 13 weeks gestation of state, incidental Encounter for screening for malformation using ultrasound documented in this encounter [facility] note* Diagnosis Supervision of high risk in second trimester- Primary Unspecified high-risk History of IUFD History of gestational hypertension 16 weeks gestation of state, incidental documented in this encounter [facility] note* Diagnosis History of IUFD- Primary Encounter [...] at 32 weeks documented in this encounter [facility] note* Diagnosis History of IUFD- Primary Encounter [...] of gestational hypertension documented in this encounter [facility] note* Diagnosis History of IUFD- Primary Encounter for supervision of other normal in second trimester History of gestational hypertension History of drug abuse (HCC) Other, mixed, or unspecified nondependent drug abuse, in remission 20 weeks gestation of state, incidental Obesity affecting in second trimester, unspecified obesity type History of IUFD- Primary documented in this encounter [facility] note* Diagnosis History of IUFD- Primary Encounter [...] TOTAL W/REFLEX; Future documented in this encounter [facility] note* Diagnosis History of IUFD- Primary Encounter [...] of state, incidental documented in this encounter [facility] note* Diagnosis History of IUFD- Primary Encounter [...] of state, incidental documented in this encounter [facility] note* Diagnosis History of IUFD- Primary Encounter [...] unspecified single disease [facility]* Diagnosis History of IUFD- Primary Encounter [...] or unspecified fetus [facility]* Diagnosis History of IUFD- Primary Encounter [...] History of IUFD documented [facility] this encounter [facility]* Diagnosis Encounter for supervision of normal in multigravida in first trimester- Primary 9 weeks gestation of state, incidental documented in this encounter [facility] note* Diagnosis History of IUFD- Primary Encounter [...] History of IUFD documented in this encounter [facility] note* Diagnosis History of IUFD- Primary Encounter [...] of state, incidental documented in this encounter [facility] note* Diagnosis History of IUFD- Primary Encounter [...] History of IUFD documented in this encounter [facility] note* Diagnosis History of IUFD- Primary Encounter [...] of state, incidental documented in this encounter [facility]* Diagnosis History of IUFD- Primary Encounter [...] unspecified obesity type [facility]* Diagnosis History of IUFD- Primary Encounter [...] in third trimester [facility]* Diagnosis History of IUFD- Primary Encounter [...] third trimester- Primary documented in this encounter [facility] note* Diagnosis History of IUFD- Primary Encounter [...] of high risk in third trimester BPP / -2 breathing, NST today Orders: URINE OB [...] poly at 28cm) documented [facility]* Diagnosis History of IUFD- Primary Encounter [...] of state, incidental documented in this encounter [facility] note* Diagnosis History of IUFD- Primary Encounter [...] History of IUFD documented in this encounter [facility] note* Diagnosis History of IUFD- Primary Encounter [...] after delivery- Primary documented in this encounter [facility]* Diagnosis History of IUFD- Primary Encounter [...] advice on contraception documented in this encounter [facility]* Diagnosis History of IUFD- Primary Encounter [...] intrauterine contraceptive device [facility]* Diagnosis History of IUFD- Primary Encounter for supervision of other normal in second trimester (HCC) History of gestational hypertension History of drug abuse (HCC) Other, mixed, or unspecified nondependent drug abuse, in remission 20 weeks gestation of (HCC) state, incidental Obesity affecting in second trimester, unspecified obesity type ([facility]) Supervision of high risk in second trimester ([facility])- Primary Unspecified high-risk History of IUFD History of gestational hypertension 24 weeks gestation of ([facility]) state, incidental Supervision of high risk in third trimester ([facility])- Primary Unspecified high-risk Antepartum anemia complicating in third trimester ([facility]) History of gestational hypertension History of IUFD Leg swelling in in third trimester ([facility]) Breech presentation with problem, single or unspecified fetus ([facility]) 36 weeks gestation of ([facility]) state, incidental with uncertain dates, antepartum ([facility])- Primary state, incidental 12 weeks gestation of ([facility]) state, incidental History of gestational hypertension Late care ([facility]) Insufficient care Generalized anxiety disorder History of drug abuse ([facility]) Other, mixed, or unspecified nondependent drug abuse, in remission Vapes nicotine containing substance Encounter for supervision of high risk in second trimester, antepartum ([facility]) History of IUFD documented in this encounter [facility]* Diagnosis History of IUFD- Primary Encounter for supervision of other normal in second trimester ([facility]) History of gestational hypertension History of drug abuse ([facility]) Other, mixed, or unspecified nondependent drug abuse, in remission 20 weeks gestation of ([facility]) state, incidental Obesity affecting in second trimester, unspecified obesity type ([facility]) Supervision of high risk in second trimester ([facility])- Primary Unspecified high-risk History of IUFD History of gestational hypertension 24 weeks gestation of ([facility] [facility]) state, incidental Supervision of high risk in third trimester ([facility])- Primary Unspecified high-risk Antepartum anemia complicating in third trimester ([facility]) History of gestational hypertension History of IUFD Leg swelling in in third trimester ([facility]) Breech presentation with problem, single or unspecified fetus ([facility]) 36 weeks gestation of ([facility]) state, incidental History of gestational hypertension- Primary History of drug abuse ([facility]) Other, mixed, or unspecified nondependent drug abuse, in remission Late care ([facility]) Insufficient care Encounter for supervision of high risk in second trimester, antepartum ([facility]) Vapes nicotine containing substance Generalized anxiety disorder 18 weeks gestation of ([facility]) state, incidental Dysuria Elevated blood pressure reading without diagnosis of hypertension documented in [facility] Diagnosis History of IUFD- Primary Encounter for supervision of other normal in second trimester ([facility]) History of gestational hypertension History of drug abuse ([facility]) Other, mixed, or unspecified nondependent drug abuse, in remission 20 weeks gestation of ([facility]) state, incidental Obesity affecting in second trimester, unspecified obesity type ([facility]) Supervision of high risk in second trimester ([facility])- Primary Unspecified high-risk History of IUFD History of gestational hypertension 24 weeks gestation of ([facility]) state, incidental Supervision of high risk in third trimester ([facility])- Primary Unspecified high-risk Antepartum anemia complicating in third trimester ([facility]) History of gestational hypertension History of IUFD Leg swelling in in third trimester ([facility]) Breech presentation with problem, single or unspecified fetus ([facility]) 36 weeks gestation of ([facility]) state, incidental Encounter for supervision of high risk in second trimester, antepartum ([facility])- Primary Chronic hypertension complicating or reason for care during childbirth ([facility]) Benign essential hypertension complicating , childbirth, and the puerperium, unspecified as to episode of care Late care ([facility]) Insufficient care History of gestational hypertension History of drug abuse ([facility]) Other, mixed, or unspecified nondependent drug abuse, in remission Vapes nicotine containing substance 20 weeks gestation of ([facility]) state, incidental * Assessment & Plan Note - Sarah Huber MD - 01/12/2025 10:10 AM EDTAssociated Problem(s): Encounter for supervision of high risk in second trimester, antepartum ([facility]) Orders: OBSTETRIC ULTRASOUND WHI; Standing * Assessment & Plan Note - Sarah Huber MD - 01/12/2025 10:10 AM EDTAssociated Problem(s): Chronic hypertension complicating or reason for care during childbirth ([facility]) Continue Labetalol 100mg tid Continue PO ASA Discussed changing positions slowly if has frequent low BP notify office. Orders: OBSTETRIC ULTRASOUND WHI; Standing * Assessment & Plan Note - Sarah Huber MD - 01/12/2025 10:10 AM EDTAssociated Problem(s): Late care ([facility]) * Assessment & Plan Note - Sarah Huber MD - 01/12/2025 10:10 AM EDTAssociated Problem(s): History of gestational hypertension Continue ASA * Assessment & Plan Note - Sarah Huber MD - 01/12/2025 10:10 AM EDTAssociated Problem(s): History of drug abuse ([facility]) * Assessment & Plan Note - Sarah Huber MD - 01/12/2025 10:10 AM EDTAssociated Problem(s): Vapes nicotine containing substance documented [facility] this encounter [facility]* Diagnosis History of IUFD- Primary Encounter for supervision of other normal in second trimester ([facility]) History of gestational hypertension History of drug abuse ([facility]) Other, mixed, or unspecified nondependent drug abuse, in remission 20 weeks gestation of ([facility]) state, incidental Obesity affecting in second trimester, unspecified obesity type ([facility]) Supervision of high risk in second trimester ([facility])- Primary Unspecified high-risk History of IUFD History of gestational hypertension 24 weeks gestation of ([facility]) state, incidental Supervision of high risk in third trimester ([facility])- Primary Unspecified high-risk Antepartum anemia complicating in third trimester ([facility]) History of gestational hypertension History of IUFD Leg swelling in in third trimester ([facility]) Breech presentation with problem, single or unspecified fetus ([facility]) 36 weeks gestation of ([facility]) state, incidental Encounter for screening for malformation using ultrasound ([facility])- Primary 20 weeks gestation of ([facility]) state, incidental Encounter for supervision of high risk in second trimester, antepartum ([facility])- Primary Chronic hypertension complicating or reason for care during childbirth ([facility]) Benign essential hypertension complicating , childbirth, and the puerperium, unspecified as to episode of care Late care ([facility]) Insufficient care History of gestational hypertension History of drug abuse ([facility]) Other, mixed, or unspecified nondependent drug abuse, in remission Vapes nicotine containing substance 20 weeks gestation of ([facility]) state, incidental [facility]WT[facility] Work Phone: Hospital Discharge instructionsAmbulatory Orders* ON- CALL NEEDED: [facility]ify [facility] - Doppler Study Ordered Location: None Selected Additional Instructions You will be called tomorrow to come in for venous ultrasound of your leg. This will ensure there is no evidence of a blood clot. Please use Tylenol as needed for pain.[facility] Work Phone: Hospital Discharge instructionsWTriHealth Work Phone: Hospital Discharge instructions Additional Instructions Follow-up with your PCP, return for any worsening of your symptoms. You can take [id number] cold and flu medications. Stay well-hydrated. Try [...] day 10 you may resume life is normal.[facility] Work Phone: Hospital Discharge instructions Additional Instructions Please ensure that you drink enough water. Please return here for any worsening symptomsW[facility]Ber[facility] Work Phone: Hospital Discharge instructions Additional [...] follow-up with your doctor to have it reevaluated.[facility] Work Phone: Hospital Discharge instructions Additional [...] care physician for further outpatient evaluation and management.[facility] Work Phone: Hospital Discharge instructions Additional [...] handout/resources provided) for further outpatient evaluation and management.[facility] Work Phone: Hospital Discharge instructions Additional [...] please return to the ER for repeat evaluation.[facility] Work Phone: Hospital Discharge instructions Additional Instructions heart rate 154 on bedside ultrasound. Your abdominal labs were normal. Your urine results were pending however you needed to leave before results. No urinary symptoms. Keep your follow-up with your OB team.[facility] Work Phone: Reason for referral (narrative)* Diagnostic Procedure Only (Routine) - Authorized Specialty Diagnoses / Procedures Referred By Contac t Referred To Contact [facility] Diagnoses 6 weeks gestation of Procedures NUCHAL TRANSLUCENCY WHI US NUCHAL TRANSLUCENCY 1ST GESTATION Sharda Valero APRN.CNP [address] [place] [address] [place] [id number] [place] [id number] Referral ID Status Reason Start Date Expiration Date Visits Requested Visits Authorized [id number] Authorized Auto-Generat ed Referral 11/13/2023 11/12/2024 1 1 [facility] for referral (narrative)* Diagnostic Procedure Only (Routine) - New Request Specialty Diagnoses / Procedures Referred By Contac t Referred To Contact [facility] Diagnoses History of IUFD Procedures OBSTETRIC ULTRASOUND WHI US PREG UTERUS AFTER 1ST TRIMEST GESTATION Jeanette Patel MD [address] [place] [address] [facility] [place] [address] Referral ID Status Reason Start Date Expiration Date Visits Requested Visits Authorized [id number] New Request Auto-Generat ed Referral 02/17/2024 02/16/2025 2 1 [facility] for referral (narrative)* Diagnostic Procedure Only (Routine) - New Request Specialty Diagnoses / Procedures Referred By Contac t Referred To Contact [facility] Diagnoses Supervision of other high risk pregnancies, third trimester Polyhydramnios in third trimester complication, single or unspecified fetus History of IUFD Procedures OBSTETRIC ULTRASOUND WHI US PREG UTERUS AFTER 1ST TRIMEST GESTATION Jt Lugo MD [address] [place] [address] [address] Referral ID Status Reason Start Date Expiration Date Visits Requested Visits Authorized [id number] New Request Auto-Generat ed Referral 04/14/2025 3 1 [facility] for referral (narrative)* Outpatient Procedure (Routine) - New Request Specialty Diagnoses / Procedures Referred By Contac t Referred To Contact [facility] Diagnoses History of IUFD Procedures NON-STRESS TEST NON-STRESS TEST Margarita Alcala MD [address] [place] [address] [address] Referral ID Status Reason Start Date Expiration Date Visits Requested Visits Authorized [id number] New Request Auto-Generat ed Referral 04/28/2024 04/28/2025 1 1 [facility] for referral (narrative)* Outpatient Procedure (Routine) - Authorized Specialty Diagnoses / Procedures Referred By Contac t Referred To Contact [facility] Diagnoses Encounter for other general counseling or advice on contraception Procedures INSERT INTRAUTERINE DEVICE LEVONORGESTREL IU 52MG 5 YR INSERT INTRAUTERINE DEVICE Sharda Valero APRN.CNP [address] [place] [address] [address] Referral ID Status Reason Start Date Expiration Date Visits Requested Visits Authorized [id number] Authorized Auto-Generat ed Referral 07/29/2024 07/29/2025 1 1 [facility] (narrative)No reason for referral information availableWTriHealth Work Phone: Chief Complaint and Reason for [...] 39pm ABD PAIN October 21, 2024 4:31pm Chief Complaint Admit Date DENTAL October 02, 2024 10: 37pm NAUSEA October 11, 2024 11: 39pm ABD PAIN October 21, 2024 4:31pm abd pain December 11, 2024 1:46 pm Chief Complaint Admit Date DENTAL October 02, 2024 10: 37pm NAUSEA October 11, 2024 11: 39pm ABD PAIN October 21, 2024 4:31pm abd pain December 11, 2024 1:46 pm [facility] January 28 2 025 10:34am Advance Directives No Advanced Directives Records Found Advance Directive Response Recorded Date/ Time Advance Directives No June 30, 2016 6:49pm Living Will No September 13, 2021 11:23am Power of Rippler No September 13 11:23am Advance Directive Response Recorded Date/ Time Advance Directives No June 30, 2016 6:49pm Living Will No December 22, 2021 9 :23pm Power of Rippler No December 22, 2021 9:23pm Advance Directive Response Recorded Date/ Time Advance Directives No June 30, 2016 6:49pm Living Will No February 20 5:12pm Power of Rippler No February 20 022 5:12pm Advance Directive Response Recorded Date/ Time Advance Directives No June 30, 2016 5:49pm Living Will No February 20 4:12pm Power of Rippler No February 20 022 4:12pm Advance Directive Response Recorded Date/ Time Advance Directives No June 30, 2016 6:49pm Living Will No January 08, 2023 3:14pm Power of Rippler No January 08 3:14pm Advance Directive Response Recorded Date/ Time Advance Directives No June 30, 2016 6:49pm Living Will No February 24 023 4:26pm Power of Rippler No February 24, 2023 4:26pm Advance Directive Response Recorded Date/ Time Advance Directives No June 30, 2016 5:49pm Living Will No February 24, 2 023 3:26pm Power of Rippler No February 24, 2023 3:26pm Advance Directive Response Recorded Date/ Time Advance Directives No June 30, 2016 5:49pm Living Will No May 11, 2 023 5:41pm Power of Rippler No May 11, 2023 5:41pm Advance Directive Response Recorded Date/ Time Advance Directives No June 30, 2016 5:49pm Living Will No June 10, 2 023 12:08pm Power of Rippler No June 10, 2023 12:08pm Advance Directive Response Recorded Date/ Time Advance Directives No June 30, 2016 5:49pm Living Will No July 17 4:36pm Power of Rippler No July 17, 2023 4:36pm Advance Directive Response Recorded Date/ Time Advance Directives No June 30, 2016 5:49pm Living Will No August 10 024 10:41am Power of Rippler No August 10, 2023 10:41am Advance Directive Response Recorded Date/ Time Living Will No October 02, 2024 10:46pm Do you have a Healthcare Power of Rippler? No October 02, 2024 10:46pm Living Will No June 17 024 4:41pm Do you have a Healthcare Power of Rippler? No June 17, 2024 4:41pm Advance Directives No June 30, 2016 6:49pm Advance Directive Response Recorded Date/ Time Living Will No October 02, 2024 10:46pm Do you have a Healthcare Power of Rippler? No October 02, 2024 10:46pm Living Will No June 17, 2 024 4:41pm Do you have a Healthcare Power of Rippler? No June 17, 2024 4:41pm Living Will No October 11, 2024 11:41pm Do you have a Healthcare Power of Rippler? No October 11, 2024 11:41pm Advance Directives No June 30, 2016 6:49pm Advance Directive Response Recorded Date/ Time Living Will No October 02, 2024 10:46pm Do you have a Healthcare Power of Rippler? No October 02, 2024 10:46pm Living Will No October 11, 2024 11:41pm Do you have a Healthcare Power of Rippler? No October 11, 2024 11:41pm Advance Directives No June 30, 2016 6:49pm Advance Directive Response Recorded Date/ Time Living Will No October 02, 2024 10:46pm Do you have a Healthcare Power of Rippler? No October 02, 2024 10:46pm Living Will No October 11, 2024 11:41pm Do you have a Healthcare Power of Rippler? No October 11, 2024 11:41pm Do you have a Healthcare Power of Rippler? No December 11, 2024 2:19pm Advance Directives No June 30, 2016 6:49pm Advance Directive Response Recorded Date/ Time Advance Directives No January 28 025 10:32am Living Will No October 02, 2024 10:46pm Do you have a Healthcare Power of Rippler? No October 02, 2024 10:46pm Living Will No October 11, 2024 11:41pm Do you have a Healthcare Power of Rippler? No October 11, 2024 11:41pm Do you have a Healthcare Power of Rippler? No December 11, 2024 2:19pm Health Concerns Infection Onset Date Last Indicated Resolved Time COVID-19 Rule-Out 06/07/2022 06/07/2022 Reason for Referral Specialty Diagnoses / Procedures Referred By Contac t Referred To Contact Diagnoses History of IUFD Procedures CONSULT TO MATERNAL MEDI OFFICE/OUTPATIENT [facility] 60 MINUTES Jeanette Patel MD [address] [place] [address] Referral ID Status Reason Start Date Expiration Date Visits Requested Visits Authorized [id number] Authorized PCP Requested Referral Auto-Generate d Referral 01/01/2024 12/31/2024 1 1 Specialty Diagnoses / Procedures Referred By Contac t Referred To Contact [facility] Diagnoses Encounter for supervision of other normal in second trimester History of IUFD Procedures OBSTETRIC ULTRASOUND WHI US PREG UTERUS AFTER 1ST TRIMEST GESTATION Jeanette Patel MD [address] [place] [address] [facility] [address] [place] [address] Referral ID Status Reason Start Date Expiration Date Visits Requested Visits Authorized [id number] Authorized Auto-Generat ed Referral 01/01/2024 12/31/2024 1 [...] or prosecute any alcohol or drug abuse patient.[facility] the event this information is protected by the Federal Confidentiality of Alcohol and Drug Abuse Patient Records regulations: The Federal rules restrict any use of the information to criminally investigate or prosecute any alcohol or drug abuse patient.[facility] the event this information is protected by the Federal Confidentiality of Alcohol and Drug Abuse Patient Records regulations: The Federal rules restrict any use of the information to criminally investigate or prosecute any alcohol or drug abuse patient.[facility] [place]In the event this information is protected by the Federal Confidentiality of Alcohol and Drug Abuse Patient Records regulations: The Federal rules restrict any use of the information to criminally investigate or prosecute any alcohol or drug abuse patient.[facility] [place] the event this information is protected by the Federal Confidentiality of Alcohol and Drug Abuse Patient Records regulations: The Federal rules restrict any use of the information to criminally investigate or prosecute any alcohol or drug abuse patient.[facility] [place]In the event this information is protected by the Federal Confidentiality of Alcohol and Drug Abuse Patient Records regulations: The Federal rules restrict any use of the information to criminally investigate or prosecute any alcohol or drug abuse patient.[facility] [place] the event this information is protected by the Federal Confidentiality of Alcohol and Drug Abuse Patient Records regulations: The Federal rules restrict any use of the information to criminally investigate or prosecute any alcohol or drug abuse patient.[facility] [place]In the event this information is protected by the Federal Confidentiality of Alcohol and Drug Abuse Patient Records regulations: The Federal rules restrict any use of the information to criminally investigate or prosecute any alcohol or drug abuse patient.[facility] [place]woodIn the event this information is protected by the Federal Confidentiality of Alcohol and Drug Abuse Patient Records regulations: The Federal rules restrict any use of the information to criminally investigate or prosecute any alcohol or drug abuse patient.[facility] [place]woodIn the event this information is protected by the Federal Confidentiality of Alcohol and Drug Abuse Patient Records regulations: The Federal rules restrict any use of the information to criminally investigate or prosecute any alcohol or drug abuse patient.[facility] [place]woodIn the event this information is protected by the Federal Confidentiality of Alcohol and Drug Abuse Patient Records regulations: The Federal rules restrict any use of the information to criminally investigate or prosecute any alcohol or drug abuse patient.[facility] [place]woodIn the event this information is protected by the Federal Confidentiality of Alcohol and Drug Abuse Patient Records regulations: The Federal rules restrict any use of the information to criminally investigate or prosecute any alcohol or drug abuse patient.[facility] [place]woodIn the event this information is protected by the Federal Confidentiality of Alcohol and Drug Abuse Patient Records regulations: The Federal rules restrict any use of the information to criminally investigate or prosecute any alcohol or drug abuse patient.[facility] [place]woodIn the event this information is protected by the Federal Confidentiality of Alcohol and Drug Abuse Patient Records regulations: The Federal rules restrict any use of the information to criminally investigate or prosecute any alcohol or drug abuse patient.[facility] [place]woodIn the event this information is protected by the Federal Confidentiality of Alcohol and Drug Abuse Patient Records regulations: The Federal rules restrict any use of the information to criminally investigate or prosecute any alcohol or drug abuse patient.[facility] [place]In the event this information is protected by the Federal Confidentiality of Alcohol and Drug Abuse Patient Records regulations: The Federal rules restrict any use of the information to criminally investigate or prosecute any alcohol or drug abuse patient.[facility] [place]woodIn the event this information is protected by the Federal Confidentiality of Alcohol and Drug Abuse Patient Records regulations: The Federal rules restrict any use of the information to criminally investigate or prosecute any alcohol or drug abuse patient.[facility] [place]In the event this information is protected by the Federal Confidentiality of Alcohol and Drug Abuse Patient Records regulations: The Federal rules restrict any use of the information to criminally investigate or prosecute any alcohol or drug abuse patient.[facility] [place]woodIn the event this information is protected by the Federal Confidentiality of Alcohol and Drug Abuse Patient Records regulations: The Federal rules restrict any use of the information to criminally investigate or prosecute any alcohol or drug abuse patient.[facility] [place]woodIn the event this information is protected by the Federal Confidentiality of Alcohol and Drug Abuse Patient Records regulations: The Federal rules restrict any use of the information to criminally investigate or prosecute any alcohol or drug abuse patient.[facility] [place]woodIn the event this information is protected by the Federal Confidentiality of Alcohol and Drug Abuse Patient Records regulations: The Federal rules restrict any use of the information to criminally investigate or prosecute any alcohol or drug abuse patient.[facility] [place]woodIn the event this information is protected by the Federal Confidentiality of Alcohol and Drug Abuse Patient Records regulations: The Federal rules restrict any use of the information to criminally investigate or prosecute any alcohol or drug abuse patient.[facility] [place]woodIn the event this information is protected by the Federal Confidentiality of Alcohol and Drug Abuse Patient Records regulations: The Federal rules restrict any use of the information to criminally investigate or prosecute any alcohol or drug abuse patient.[facility] [place]woodIn the event this information is protected by the Federal Confidentiality of Alcohol and Drug Abuse Patient Records regulations: The Federal rules restrict any use of the information to criminally investigate or prosecute any alcohol or drug abuse patient.[facility] [place]woodIn the event this information is protected by the Federal Confidentiality of Alcohol and Drug Abuse Patient Records regulations: The Federal rules restrict any use of the information to criminally investigate or prosecute any alcohol or drug abuse patient.[facility] [place]woodIn the event this information is protected by the Federal Confidentiality of Alcohol and Drug Abuse Patient Records regulations: The Federal rules restrict any use of the information to criminally investigate or prosecute any alcohol or drug abuse patient.[facility], [place]woodIn the event this information is protected by the Federal Confidentiality of Alcohol and Drug Abuse Patient Records regulations: The Federal rules restrict any use of the information to criminally investigate or prosecute any alcohol or drug abuse patient.[facility], [place]woodIn the event this information is protected by the Federal Confidentiality of Alcohol and Drug Abuse Patient Records regulations: The Federal rules restrict any use of the information to criminally investigate or prosecute any alcohol or drug abuse patient.[facility], [place]woodIn the event this information is protected by the Federal Confidentiality of Alcohol and Drug Abuse Patient Records regulations: The Federal rules restrict any use of the information to criminally investigate or prosecute any alcohol or drug abuse patient.[facility], [place]woodIn the event this information is protected by the Federal Confidentiality of Alcohol and Drug Abuse Patient Records regulations: The Federal rules restrict any use of the information to criminally investigate or prosecute any alcohol or drug abuse patient.[facility], [place]woodIn the event this information is protected by the Federal Confidentiality of Alcohol and Drug Abuse Patient Records regulations: The Federal rules restrict any use of the information to criminally investigate or prosecute any alcohol or drug abuse patient.[facility], [place]woodIn the event this information is protected by the Federal Confidentiality of Alcohol and Drug Abuse Patient Records regulations: The Federal rules restrict any use of the information to criminally investigate or prosecute any alcohol or drug abuse patient.[facility], [place]woodIn the event this information is protected by the Federal Confidentiality of Alcohol and Drug Abuse Patient Records regulations: The Federal rules restrict any use of the information to criminally investigate or prosecute any alcohol or drug abuse patient.[facility], [place]woodIn the event this information is protected by the Federal Confidentiality of Alcohol and Drug Abuse Patient Records regulations: The Federal rules restrict any use of the information to criminally investigate or prosecute any alcohol or drug abuse patient.[facility], [place]woodIn the event this information is protected by the Federal Confidentiality of Alcohol and Drug Abuse Patient Records regulations: The Federal rules restrict any use of the information to criminally investigate or prosecute any alcohol or drug abuse patient.[facility], [place]woodIn the event this information is protected by the Federal Confidentiality of Alcohol and Drug Abuse Patient Records regulations: The Federal rules restrict any use of the information to criminally investigate or prosecute any alcohol or drug abuse patient.[facility], [place]woodIn the event this information is protected by the Federal Confidentiality of Alcohol and Drug Abuse Patient Records regulations: The Federal rules restrict any use of the information to criminally investigate or prosecute any alcohol or drug abuse patient.[facility], [place]woodIn the event this information is protected by the Federal Confidentiality of Alcohol and Drug Abuse Patient Records regulations: The Federal rules restrict any use of the information to criminally investigate or prosecute any alcohol or drug abuse patient.[facility], [place]woodIn the event this information is protected by the Federal Confidentiality of Alcohol and Drug Abuse Patient Records regulations: The Federal rules restrict any use of the information to criminally investigate or prosecute any alcohol or drug abuse patient.[facility], [place]woodIn the event this information is protected by the Federal Confidentiality of Alcohol and Drug Abuse Patient Records regulations: The Federal rules restrict any use of the information to criminally investigate or prosecute any alcohol or drug abuse patient.[facility], [place]woodIn the event this information is protected by the Federal Confidentiality of Alcohol and Drug Abuse Patient Records regulations: The Federal rules restrict any use of the information to criminally investigate or prosecute any alcohol or drug abuse patient.[facility], [place]woodIn the event this information is protected by the Federal Confidentiality of Alcohol and Drug Abuse Patient Records regulations: The Federal rules restrict any use of the information to criminally investigate or prosecute any alcohol or drug abuse patient.[facility], [place]woodIn the event this information is protected by the Federal Confidentiality of Alcohol and Drug Abuse Patient Records regulations: The Federal rules restrict any use of the information to criminally investigate or prosecute any alcohol or drug abuse patient.[facility], [place]woodIn the event this information is protected by the Federal Confidentiality of Alcohol and Drug Abuse Patient Records regulations: The Federal rules restrict any use of the information to criminally investigate or prosecute any alcohol or drug abuse patient.[facility], [place]woodIn the event this information is protected by the Federal Confidentiality of Alcohol and Drug Abuse Patient Records regulations: The Federal rules restrict any use of the information to criminally investigate or prosecute any alcohol or drug abuse patient.[facility], [place]woodIn the event this information is protected by the Federal Confidentiality of Alcohol and Drug Abuse Patient Records regulations: The Federal rules restrict any use of the information to criminally investigate or prosecute any alcohol or drug abuse patient.[facility], [place]woodIn the event this information is protected by the Federal Confidentiality of Alcohol and Drug Abuse Patient Records regulations: The Federal rules restrict any use of the information to criminally investigate or prosecute any alcohol or drug abuse patient.[facility], [place]woodIn the event this information is protected by the Federal Confidentiality of Alcohol and Drug Abuse Patient Records regulations: The Federal rules restrict any use of the information to criminally investigate or prosecute any alcohol or drug abuse patient.[facility], [place]woodIn the event this information is protected by the Federal Confidentiality of Alcohol and Drug Abuse Patient Records regulations: The Federal rules restrict any use of the information to criminally investigate or prosecute any alcohol or drug abuse patient.[facility], [place]woodIn the event this information is protected by the Federal Confidentiality of Alcohol and Drug Abuse Patient Records regulations: The Federal rules restrict any use of the information to criminally investigate or prosecute any alcohol or drug abuse patient.[facility], [place]woodIn the event this information is protected by the Federal Confidentiality of Alcohol and Drug Abuse Patient Records regulations: The Federal rules restrict any use of the information to criminally investigate or prosecute any alcohol or drug abuse patient.[facility] [place] Reason for Visit (unrecogniz ed section and content) Reason Comments Ear Pain Bilateral ear pain a nd HERNADEZ-exposed to flu Reason Comments Initial OB Visit Reason Comments PRAF Reason Comments OB N/V Reason Onset Date Comments Care 01/01/2024 Reason Comments US Specialty Diagnoses / Procedures Referred By Contac t Referred To Contact 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 Patel Specialty Diagnoses / Procedures Referred By Contac t Referred To Contact [facility] Diagnoses Encounter for supervision of other normal in second trimester History of IUFD Procedures OBSTETRIC ULTRASOUND WHI US PREG UTERUS AFTER 1ST TRIMEST GESTATION Jeanette Patel MD [address] [place] [address] [address] Referral ID Status Reason Start Date Expiration Date V isits Requested Visits Authorized [id number] Closed Auto-Generate d Referral 01/01/2024 12/31/2024 1 1 Reason Onset Date Comments Care 02/17/2024 Reason Onset Date Comments Care 03/17/2024 Pt reported inte rmittent bilateral swelling feet. Specialty Diagnoses / Procedures Referred By Contac t Referred To Contact [facility] Diagnoses History of IUFD Procedures OBSTETRIC ULTRASOUND WHI US PREG UTERUS AFTER 1ST TRIMEST GESTATION Jeanette Patel MD [address] [place] [address] [address] Referral ID Status Reason Start Date Expiration Date V isits Requested Visits Authorized [id number] Closed Auto-Generate d Referral 02/17/2024 02/16/2025 2 1 Reason Onset Date Comments Care 04/02/2024 Reason Onset Date Comments Care 04/14/2024 Reason Comments Opened In Error Reason Onset Date Comments Care 12/01/2023 Reason Comments OB Pain Reason Onset Date Comments Care 04/28/2024 Specialty Diagnoses / Procedures Referred By Contac t Referred To Contact [facility] Diagnoses Supervision of other high risk pregnancies, third trimester Polyhydramnios in third trimester complication, single or unspecified fetus History of IUFD Procedures OBSTETRIC ULTRASOUND WHI US PREG UTERUS AFTER 1ST TRIMEST GESTATION Jt Lugo MD [address] [place] [address] [address] Referral ID Status Reason Start Date Expiration Date Visits Requested Visits Authorized [id number] Authorized Auto-Generat ed Referral 4 06/22/2024 3 3 Reason Onset Date Comments [...] Referred By Contac t Referred To Contact [facility] Diagnoses Encounter for other general counseling or advice on contraception Procedures INSERT INTRAUTERINE DEVICE LEVONORGESTREL IU 52MG 5 YR INSERT INTRAUTERINE DEVICE Sharda Valero APRN.KAITLYNN [address] [place] [address] Phone: tel: fax: [address] [address] Referral ID Status Reason Start Date Expiration Date V isits Requested Visits Authorized [id number] Closed Auto-Generate d Referral 07/29/2024 07/29/2025 1 1 Reason Onset Date Comments Results 08/06/2024 Reason Comments 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 CHANA saravia Reason Comments Headache Reason Onset Date Comments Care 12/31/2024 Reason Onset Date Comments Care 01/12/2025 Specialty Diagnoses / Procedures Referred By Contac t Referred To Contact [facility] Diagnoses with uncertain dates, antepartum (HCC) 13 weeks gestation of (HCC) Procedures OBSTETRIC ULTRASOUND WHI US PREG UTERUS AFTER 1ST TRIMEST GESTATION Johana Turner APRN.CNM [address] [place] [address] Phone: tel: fax: [facility] [address] [place] [address] Referral ID Status Reason Start Date Expiration Date V isits Requested Visits Authorized [id number] Closed Auto-Generate d Referral 11/18/2024 11/18/2025 1 1 Care Teams (unrecognized sec tion and content) [...] October 21, 2024 End: October 21, 2024 Team Status: Inactive Member Role Status Dates Dr. David Mckinney MD Primary Care Provider Active Start: December 11, 2024 End: December 11, 2024 Dr. Lake Mirza DO Emergency Provider Active Start : December 11, 2024 End: December 11, 2024 Team Status: Active Member Role/Relationship Status Dates Dr. David Mckinney MD Primary Care Provider Active Team Status: Inactive Member Role/Relationship Status Dates Dr. David Mckinney MD Primary Care Provider Active Start: October 02, 2024 End: October 02, 2024 Dr. Kuldeep Vanegas DO Attending Provider Active Start: October 02, 2024 End: October 02, 2024 Dr. Kuldeep Vanegas DO Emergency Provider Active Start: October 02, 2024 End: October 02, 2024 Team Status: Inactive Member Role/Relationship Status Dates Dr. David Mckinney MD Primary Care Provider Active Start: October 11, 2024 End: October 12, 2024 Dr. Rizwan Cárdenas DO Attending Provider Active Start: October 11, 2024 End: October 12, 2024 Dr. Rizwan Cárdenas DO Emergency Provider Active Start: October 11, 2024 End: October 12, 2024 Team Status: Inactive Member Role/Relationship Status Dates Dr. David Mckinney MD Primary Care Provider Active Start: October 21, 2024 End: October 21, 2024 Dr. Rizwan Cárdenas DO Attending Provider Active Start: October 21, 2024 End: October 21, 2024 Dr. Rizwan Cárdenas DO Referring Provider Active Start: October 21, 2024 End: October 21, 2024 Team Status: Inactive Member Role/Relationship Status Dates Dr. David Mckinney MD Primary Care Provider Active Start: December 11, 2024 End: December 11, 2024 Dr. Lake Mirza DO Attending Provider Active Start : December 11, 2024 End: December 11, 2024 Dr. Lake Mirza DO Emergency Provider Active Start : December 11, 2024 End: December 11, 2024 Team Status: Inactive Member Role/Relationship Status Dates Dr. David Mckinney MD Primary Care Provider Active Start: January 28, 2025 End: January 28, 2025 Dr. David Mckinney MD Referring Provider Active St art: January 28, 2025 End: January 28, 2025 Kale BISHOP PA Attending Provider Active Sta rt: January 28, 2025 End: January 28, 2025 INFORMATION SOURCE (unrecogn ized section and content) DATE CREATED AUTHOR 01/15/2025 [facility] DATE CREATED AUTHOR AUTHOR'S ORGANIZ ATION 01/30/2025 [facility] FOR RECORDS PERTAINING TO PATIENTS WHO ARE [...] BE BASED ON THE PRIMARY CLINICAL RECORDS. [employer] provides no warranty or guarantee of the accuracy or completeness of information in this document.
== END | disposition home or self-care (01) ==
LOC: MFPLAB 10:33
PROVIDERS: PCP Family Medicine; Referring Provider Family Medicine; Visit Provider Family Medicine
DX: R42 Dizziness and giddiness (principal); R55 Syncope and collapse; E86.0 Dehydration
CPT/HCPCS: 36415; 80053; 82728; 84443; 85025

== ENCOUNTER → 2025-02-03 | Outpatient (CLI) | payer MEDICAID, SELFPAY ==
[2025-02-03 15:55] LABS: Mucous, Urine 0 SEEN /hpf (<or=2+)
[2025-02-03 19:52] LABS: Color, Urine Yellow (Yellow); Glucose, Dipstick Normal (Normal); Ketone-Dipstick Negative (Negative); Leukocyte Esterase-Dipstick Negative /ul (Negative); Nitrite-Dipstick Negative (Negative); Occult Blood-Urine Negative /ul (Negative); Protein-Dipstick Negative (Negative); Specific Gravity, Urine 1.010 (1.002-1.030); Urine Bilirubin Dipstick Negative (Negative)
[2025-02-03 22:05] LABS: Red Blood Cells-Urine 0-5 SEEN /hpf (0-5); Squamous Epithelial Cells - UA 0-5 SEEN /hpf (5-10)
== END | disposition home or self-care (01) ==
LOC: LABSPEC 15:50
PROVIDERS: PCP Family Medicine; Referring Provider Family Medicine; Visit Provider Family Medicine
DX: E86.0 Dehydration (principal)
CPT/HCPCS: 81001; 87086; 87088

== ENCOUNTER 2025-03-10 12:30 | Emergency (ER) | payer MEDICAID, SELFPAY ==
[2025-03-10 12:30] VITALS: BP 119/89; PULSE 90; RESP 18; TEMP 36.6; O2SAT 98; BMI 28.3
--- NOTE | 2025-03-10 14:27 | EDS_ITS ---
HPI HPI - URI History of Present Illness Chief Complaint: Cough Informant: patient Narrative Narrative: Patient is a 29-year-old female is currently 28 weeks presenting for URI symptoms and headache. States that she has had 3 days of nonproductive cough, fatigue, headache that is pressure in her head, congestion and some mild shortness of breath. Denies any nausea or vomiting. Notes some mild swelling of her legs but not sure along its been there. She thought she was fatigued and was anemic but then developed more URI symptoms. Was worried her headache could be related to her blood pressure being high or preeclampsia so she came to the ER. She denies any vaginal bleeding, leakage of fluids and reports good movement from the baby. Follows with [facility]. Been taking Tylenol for symptoms her last dose was last night. No other complaints or concerns reported at this time. Unsure of any sick contacts. ROS ROS ED Constitutional Constitutional ED: Denies chills or fever(s) ENT ENT ED: Reports ear pain, rhinorrhea, sore throat and other Details: Nasal congestion Cardiovascular Cardiovascular: Denies chest pain Respiratory/Chest Respiratory/Chest: Reports cough and dyspnea Gastrointestinal Gastrointestinal: Denies nausea or vomiting Genitourinary Genitourinary ED: Reports other Details: 28 weeks . Denies any leakage of fluid or vaginal bleeding ; Denies urinary frequency Musculoskeletal Musculoskeletal: Denies arthralgias or myalgias Neurologic Neurologic: Reports headache(s); Denies paresthesias or weakness Hematologic/Lymphatic Hematologic/Lymphatic: Denies easy bleeding or easy bruising [facility] Medical History (spontaneous vaginal delivery) Depression Family history of hearing loss at age younger than 7 years Gestational HTN Stillborn, normal History of placental abruption Trauma depression Anxiety Cervical myofascial strain Home Medications ?Medication ?Instructions ?Recorded ?Last Taken ?Type uskrbbii-zqh-Tf-FA 1 mg 1 tab PO DAILY pregna ncy 09/13/21 02/17/22 09:00 History tablet amoxicillin 500 mg capsule 500 mg PO TID 7 days #21 ca ps 10/12/24 Unknown Rx ondansetron 4 mg disintegrating 4 mg PO TID PRN nausea and 10/12/24 Unknown Rx tablet vomiting #21 tabs nitrofurantoin 100 mg PO Q12 #10 CAPSULES 0 12/11/24 Unknown Rx monohydrate/macrocrystals 100 mg capsule fluticasone propionate 50 1 spray intranasal BID 2 weantione ks #16 03/10/25 Unknown Rx mcg/actuation nasal grams spray,suspension (Flonase Allergy Relief) pseudoephedrine-guaifenesin ER 120 1 tab PO Q12H PRN c old symptoms 03/10/25 Unknown Rx mg-1,200 mg tab,extend release #20 tabs 12hr (Mucinex D Maximum Strength) Allergy/AdvReac Type Severity Reaction Status Date / Time walnut (walnuts) Allergy Severe Swelling Verified 03/10/25 12:31 corn AdvReac Other Verified 03/10/25 12:31 Social History number of children: 2 Smoking Status: Former smoker alcohol intake: former 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 EXAM Physical Exam Const Vital Signs: 03/10/25 12:30 03/10/25 12:47 03/10/25 14:30 Temperature 98 F Temperature Source Temporal Pulse Rate 90 81 Respiratory Rate 18 14 Respiratory Depth Normal Respiratory Pattern Normal Blood Pressure 119/89 H 121/79 H Blood Pressure Mean 99 93 Pulse Ox 98 98 Oxygen Delivery Method Room Air Room Air Room Air 03/10/25 14:53 Temperature 97 F L Temperature Source Pulse Rate 98 Respiratory Rate 14 Respiratory Depth Respiratory Pattern Blood Pressure 115/79 Blood Pressure Mean 91 Pulse Ox 98 Oxygen Delivery Method Positive well nourished and well developed General Appearance ED: well developed HEENT Reports moist mucous membranes HEENT Narrative: Uvula midline. No trismus. Slightly hoarse voice consistent with laryngitis. Nasal congestion present. Normal bilateral tympanic membranes and ear canals. Serous fluid noted behind the left TM. Face and Sinus: sinus tenderness Throat: posterior oropharynx normal; Negative for tonsils abnormal Neck supple, no meningeal signs and no JVD Resp normal respiratory effort Cardio no murmurs Rate: regular rate Rhythm: regular rhythm GI non-tender and non-distended GI Narrative: Gravid abdomen above the level of the umbilicus present. Extremity normal to inspection Extremity Narrative: Trace pitting edema lower legs. Neuro oriented x3 Sensorium / Orientation: alert Psych mental status grossly normal Skin Lesions: no lesions Rashes: no rashes MDM MDM MDM Narrative Medical decision making narrative: Patient evaluated for 3 days of worsening viral symptoms. Also has associated headache. Is approximately 28 weeks . Differential includes sinus headache, viral syndrome, COVID. Blood pressure normal in the ER low suspicion for preeclampsia/eclampsia. Headache is consistent with her viral syndrome. She is clear breath sounds bilaterally and no fever so lower suspicion for pneumonia. Patient treated symptomatically ER with Mucinex and Tylenol. On repeat evaluation she does seem more comfortable. Case is discussed with [facility] call for [facility], Dr. Kelly. She is comfortable with patient be discharged home with symptomatic treatment. Confirms that decongestants are safe in at this point. Patient be discharged home with prescription for Mucinex DM and Flonase. Also counseled she can use Afrin but not to use it for more than 3 days in a row because of the risk of rebound rhinorrhea. Can also take Tylenol as needed for headache. Given return precautions. Discharged home in stable condition. Management Discussion w/another healthcare provider: [facility] Discharge Plan Triage Chief Complaint: Cough ED Provider: Mindy Jorge Dx/Rx/DC Orders Clinical Impression: Acute viral syndrome Instructions: ED Viral Syndrome (Adult) Prescriptions: New fluticasone propionate [Flonase Allergy Relief] 50 mcg/actuation spray,suspension 1 spray intranasal BID 14 Days Qty: 16 0RF Rx Instructions: administer into each nostril pseudoephedrine-guaifenesin [Mucinex D Maximum Strength] 120-1,200 mg tablet extended release 12 hr 1 tab PO Q12H PRN (Reason: cold symptoms) Qty: 20 0RF No Action ygiiafgd-rsb-Hm-FA 1 mg Tablet 1 tab PO DAILY amoxicillin 500 mg capsule 500 mg PO TID 7 Days Qty: 21 0RF ondansetron 4 mg tablet,disintegrating 4 mg PO TID PRN (Reason: nausea and vomiting) Qty: 21 2RF nitrofurantoin monohyd/m-cryst 100 mg capsule 100 mg PO Q12 Qty: 10 0RF Primary Care Provider: David Mckinney Referrals: David Mckinney MD [Primary Care Provider, Family Practice] Activity Restrictions/Additional Instructions: Follow up with your family doctor and [facility]. You may take zpgg-cud-ddbznxf decongestant such as Tylenol Cold and flu or Mucinex DM. You been given a prescription for Mucinex DM. You may also use Flonase which is available inux-gkj-xjgfmtd. Use as directed do not use for more than 3 days because of the increased risk of rebound congestion. If you have worsening symptoms, fever or difficulty breathing please return to the emergency room. Print Language: Colombian Disposition Disposition: Home, Self Care Discharge Date/Time: 03/10/25 14:55
[2025-03-10 14:30] VITALS: BP 121/79; PULSE 81; RESP 14; O2SAT 98
[2025-03-10 14:53] VITALS: BP 115/79; PULSE 98; RESP 14; TEMP 36.1; O2SAT 98
== END 2025-03-10 14:55 | disposition home or self-care (01) ==
PROVIDERS: Emergency Provider Emergency Medicine; PCP Family Medicine; Visit Provider Emergency Medicine
DX: O98.513 Other viral diseases complicating pregnancy, third trimester (principal); O99.013 Anemia complicating pregnancy, third trimester; Z87.891 Personal history of nicotine dependence; Z3A.28 28 weeks gestation of pregnancy; R06.02 Shortness of breath; B34.9 Viral infection, unspecified; D64.9 Anemia, unspecified; R51.9 Headache, unspecified; R05.9 Cough, unspecified
CPT/HCPCS: 87631; 99282

== ENCOUNTER 2025-04-09 16:10 | Emergency (ER) | payer MEDICAID, SELFPAY ==
[2025-04-09 16:11] VITALS: BP 135/90; PULSE 120; RESP 18; TEMP 36.6; O2SAT 99
--- OUTSIDE RECORDS SUMMARY | 2025-04-09 17:21 | XMS RPT_ITS | CCD ---
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 easy bruising PFSH PFSH Medical History (spontaneous vaginal delivery) Depression Family history of hearing loss at age younger than 7 years Gestational HTN Stillborn, normal History of placental abruption Trauma depression Anxiety Cervical myofascial strain Home Medications ???Medication ???Instructions ???Recorded ???Last Taken ???Type veqbxlyc-ktz-Pp-FA 1 mg 1 tab PO DAILY 09/13/21 02/17/22 09:00 History tablet amoxicillin 500 mg capsule 500 mg PO TID 7 days #21 caps 09/22 08/17 Unknown Rx ondansetron 4 mg disintegrating 4 mg PO TID PRN nausea and 5 Unknown Rx tablet vomiting #21 tabs nitrofurantoin 100 mg PO Q12 #10 CAPSULES 5 Unknown Rx monohydrate/macrocrysta ls 100 mg capsule fluticasone propionate 50 1 spray intranasal BID 2 weeks #16 03/10/25 Unknown Rx mcg/actuation nasal grams spray,suspension (Flonase Allergy Relief) pseudoephedrine-guaifen esin ER 120 1 tab PO Q12H PRN cold symptoms 03/10/25 Unknown Rx mg-1,200 mg tab,extend release #20 tabs 12hr (Mucinex D Maximum Strength) Allergy/AdvReac Type Severity Reaction Status Date / Time walnut (walnuts) Allergy Severe Swelling Verified 03/10/25 12:31 corn AdvReac Other Verified 03/10/25 12:31 Social History number of children: 2 Smoking Status: Former smoker alcohol intake: former 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 EXAM Physical Exam Const Vital Signs: 03/10/25 12:30 03/10/25 12:47 03/10/25 14:30 Temperature 98 F Temperature Source Temporal Pulse Rate 90 81 Respiratory Rate 18 14 Respiratory Depth Normal Respiratory Pattern Normal Blood Pressure 119/89 H 121/79 H Blood Pressure Mean 99 93 Pulse Ox 98 98 Oxygen Delivery Method Room Air Room Air Room Air 03/10/25 14:53 Temperature 97 F L Temperature Source Pulse Rate 98 Respiratory Rate 14 Respiratory Depth Respiratory Pattern Blood Pressure 115/79 Blood Pressure Mean 91 Pulse Ox 98 Oxygen Delivery Method Positive well nourished and well developed General Appearance ED: well developed HEENT Reports moist mucous membranes HEENT Narrative: Uvula midline. No trismus. Slightly hoarse voice consistent with laryngitis. Nasal congestion present. Normal bilateral tympanic membranes and ear canals. Serous fluid noted behind the left TM. Face and Sinus: sinus tenderness Throat: posterior oropharynx normal; Negative for tonsils abnormal Neck supple, no meningeal signs and no JVD Resp normal respiratory effort Cardio no murmurs Rate: regular rate Rhythm: regular rhythm GI non-tender and non-diste (more content not included)... Normal [facility] Influenza virus A and B and SARS-CoV-2 (COVID-19) and Respiratory syncytial virus RNAOrdered By: Mindy Jorge on 03-10-2025 SARS-CoV-2 (COVID-19) RNA OFELIA+probe Ql (Unsp spec) [facility] M100.678on 03-10-2025 M100.678 Normal Reference Ran ge = Negative GeneXpert Instrument, PCR method SARS-CoV-2 (COVID 19) Negative INFLUENZA A Negative INFLUENZA B Negative RSV PCR Negative Normal [facility] Comment on above: Performed By: #### L 501.4100, L501.0900, L501.1105, L100.0500, L501.1400, L501.4405 #### [facility] [address] [place] [address]. [place], [place], [id number] CBC W Auto Differential pane l (Bld)on 02-10-2025 Basophils (Bld) [#/Vol] 0.05 10*3/uL Normal <0.11 [facility] Comment on above: Order Comment: Speci men Type: BLOOD SPECIMEN Ordering Facility: [facility] Address: [address] [place] [address] Performed By: #### 7 3752-8 #### [facility] CLIA [id number] [address] [place] [address] [address] [place] Basophils/100 WBC (Bld) 0.4 % Normal [facility] Comment on above: Order Comment: Speci men Type: BLOOD SPECIMEN Ordering Facility: [facility] Address: [address] [place] [address] Performed By: #### 7 3752-8 #### [facility] CLIA [id number] [address] [place] [address] [place] Differential cell count method Nom (Bld) Auto Normal [facility] Comment on above: Order Comment: Speci men Type: BLOOD SPECIMEN Ordering Facility: [facility] Address: [address] [place] [address] Performed By: #### 7 3752-8 #### [facility] CLIA [id number] [address] [place] [address] [place] Eosinophils (Bld) [#/Vol] 0.47 10*3/uL High <0.46 [facility] Comment on above: Order Comment: Speci men Type: BLOOD SPECIMEN Ordering Facility: [facility] Address: [address] [place] [address] Performed By: #### 7 3752-8 #### [facility] CLIA [id number] [address] [place] [address] [place] Eosinophils/100 WBC (Bld) 4.0 % Normal [facility] Comment on above: Order Comment: Speci men Type: BLOOD SPECIMEN Ordering Facility: [facility] Address: [address] [place] [address] Performed By: #### 7 3752-8 #### [facility] CLIA [id number] [address] [place] [address] [place] Erythrocyte distribution width (RBC) [Ratio] 14.9 % Normal 11.5-15.0 [facility] Comment on above: Order Comment: Speci men Type: BLOOD SPECIMEN Ordering Facility: [facility] Address: [address] [place] [address] Performed By: #### 7 3752-8 #### [facility] CLIA [id number] [address] [place] [address] [place] Hematocrit (Bld) [Volume fraction] 34.0 % Low 36.0-46.0 [facility] Comment on above: Order Comment: Speci men Type: BLOOD SPECIMEN Ordering Facility: [facility] Address: [address] [place] [address] Performed By: #### 7 3752-8 #### [facility] CLIA [id number] [address] [place] [address] [place] Hemoglobin (Bld) [Mass/Vol] 10.5 g/dL Low 11.5-15.5 [facility] Comment on above: Order Comment: Speci men Type: BLOOD SPECIMEN Ordering Facility: [facility] Address: [address] [place] [address] Performed By: #### 7 3752-8 #### [facility] CLIA [id number] [address] [place] [address] [place] Immature granulocytes (Bld) [#/Vol] 0.12 10*3/uL High <0.10 [facility] Comment on above: Order Comment: Speci men Type: BLOOD SPECIMEN Ordering Facility: [facility] Address: [address] [place] [address] Performed By: #### 7 3752-8 #### [facility] CLIA [id number] [address] [place] [address] [place] Immature granulocytes/100 WBC (Bld) 1.0 % Normal [facility] Comment on above: Order Comment: Speci men Type: BLOOD SPECIMEN Ordering Facility: [facility] Address: [address] [place] [address] Performed By: #### 7 3752-8 #### [facility] CLIA [id number] [address] [place] [address] [place] Lymphocytes (Bld) [#/Vol] 2.78 10*3/uL Normal 1.00-4.00 [facility] Comment on above: Order Comment: Speci men Type: BLOOD SPECIMEN Ordering Facility: [facility] Address: [address] [place] [address] Performed By: #### 7 3752-8 #### [facility] CLIA [id number] [address] [place] [address] [place] Lymphocytes/100 WBC (Bld) 23.4 % Normal [facility] Comment on above: Order Comment: Speci men Type: BLOOD SPECIMEN Ordering Facility: [facility] Address: [address] [place] [address] Performed By: #### 7 3752-8 #### [facility] CLIA [id number] [address] [place] [address] [place] MCH (RBC) [Entitic mass] 27.0 pg Normal 26.0-34.0 [facility] Comment on above: Order Comment: Speci men Type: BLOOD SPECIMEN Ordering Facility: [facility] Address: [address] [place] [address] Performed By: #### 7 3752-8 #### [facility] CLIA [id number] [address] [place] [address] [place] MCHC (RBC) [Mass/Vol] 30.9 g/dL Normal 30.5-36.0 [facility] Comment on above: Order Comment: Speci men Type: BLOOD SPECIMEN Ordering Facility: [facility] Address: [address] [place] [address] Performed By: #### 7 3752-8 #### [facility] CLIA [id number] [address] [place] [address] [place] MCV (RBC) [Entitic vol] 87.4 fL Normal 80.0-100.0 [facility] Comment on above: Order Comment: Speci men Type: BLOOD SPECIMEN Ordering Facility: [facility] Address: [address] [place] [address] Performed By: #### 7 3752-8 #### [facility] CLIA [id number] [address] [place] [address] [place] Monocytes (Bld) [#/Vol] 0.86 10*3/uL Normal <0.87 [facility] Comment on above: Order Comment: Speci men Type: BLOOD SPECIMEN Ordering Facility: [facility] Address: [address] [place] [address] Performed By: #### 7 3752-8 #### [facility] CLIA [id number] [address] [place] [address] [place] Monocytes/100 WBC (Bld) 7.2 % Normal [facility] Comment on above: Order Comment: Speci men Type: BLOOD SPECIMEN Ordering Facility: [facility] Address: [address] [place] [address] Performed By: #### 7 3752-8 #### [facility] CLIA [id number] [address] [place] [address] [place] Neutrophils (Bld) [#/Vol] 7.61 10*3/uL High 1.45-7.50 [facility] Comment on above: Order Comment: Speci men Type: BLOOD SPECIMEN Ordering Facility: [facility] Address: [address] [place] [address] Performed By: #### 7 3752-8 #### [facility] CLIA [id number] [address] [place] [address] [place] Neutrophils/100 WBC (Bld) 64.0 % Normal [facility] Comment on above: Order Comment: Speci men Type: BLOOD SPECIMEN Ordering Facility: [facility] Address: [address] [place] [address] Performed By: #### 7 3752-8 #### [facility] CLIA [id number] [address] [place] [address] [place] Nucleated RBC (Bld) [#/Vol] 10*3/uL Normal <0.01 [facility] Comment on above: Order Comment: Speci men Type: BLOOD SPECIMEN Ordering Facility: [facility] Address: [address] [place] [address] Performed By: #### 7 3752-8 #### [facility] CLIA [id number] [address] [place] [address] [place] Nucleated RBC/100 WBC (Bld) [Ratio] 0.0 /100 WBC Normal [facility] Comment on above: Order Comment: Speci men Type: BLOOD SPECIMEN Ordering Facility: [facility] Address: [address] [place] [address] Performed By: #### 7 3752-8 #### [facility] CLIA [id number] [address] [place] [address] [place] Platelet mean volume (Bld) [Entitic vol] 12.4 fL Normal 9.0-12.7 [facility] Comment on above: Order Comment: Speci men Type: BLOOD SPECIMEN Ordering Facility: [facility] Address: [address] [place] [address] Performed By: #### 7 3752-8 #### [facility] CLIA [id number] [address] [place] [address] [place] Platelets (Bld) [#/Vol] 223 10*3/uL Normal 150-400 [facility] Comment on above: Order Comment: Speci men Type: BLOOD SPECIMEN Ordering Facility: [facility] Address: [address] [place] [address] Performed By: #### 7 3752-8 #### [facility] CLIA [id number] [address] [place] [address] [place] RBC (Bld) [#/Vol] 3.89 10*6/uL Low 3.90-5.20 [facility] Comment on above: Order Comment: Speci men Type: BLOOD SPECIMEN Ordering Facility: [facility] Address: [address] [place] [address] Performed By: #### 7 3752-8 #### [facility] CLIA [id number] [address] [place] [address] [place] WBC (Bld) [#/Vol] 11.89 10*3/uL High 3.70-11.00 [facility] Comment on above: Order Comment: Speci men Type: BLOOD SPECIMEN Ordering Facility: [facility] Address: [address] [place] [address] Performed By: #### 7 3752-8 #### [facility] CLIA [id number] [address] [place] [address] [place] Ferritin SerPl-ncon 2024 Ferritin [Mass/Vol] 16.4 ng/mL Normal 14.7-205.1 [facility] Comment on above: Order Comment: Speci men Type: BLOOD SPECIMEN Ordering Facility: [facility] Address: [address] [place] [address] Performed By: #### 7 3752-8 #### [facility] CLIA [id number] [address] [place] [address] [place] Iron and Iron binding capaci panelon 02-10-2025 Iron [Mass/Vol] 60 ug/dL Normal 41-186 [facility] Comment on above: Order Comment: Speci men Type: BLOOD SPECIMEN Ordering Facility: [facility] Address: [address] [place] [address] Performed By: #### 7 3752-8 #### [facility] CLIA [id number] [address] [place] [address] [place] Iron binding capacity [Mass/Vol] >560 High 232-386 [facility] Comment on above: Order Comment: Speci men Type: BLOOD SPECIMEN Ordering Facility: [facility] Address: [address] [place] [address] Performed By: #### 7 3752-8 #### [facility] CLIA [id number] [address] [place] [address] [place] Iron/TIBC [Molar ratio] <10.7 Low 15.0-57.0 [facility] Comment on above: Order Comment: Speci men Type: BLOOD SPECIMEN Ordering Facility: [facility] Address: [address] [place] [address] Performed By: #### 7 3752-8 #### [facility] CLIA [id number] [address] [place] [address] [place] Reagin and Treponema pallidu m IgG and IgM [Interp]on 02-10-2025 T. pallidum IgG+IgM IA Ql (S) Non-Reactive Normal Nonreactive [facility] Comment on above: Order Comment: Speci men Type: BLOOD SPECIMEN Ordering Facility: [facility] Address: [address] [place] [address] Performed By: #### 7 3752-8 #### [facility] CLIA [id number] [address] [place] [address] [place] Reagin+T pallidum IgG+IgM Se rPl-Impon 02-10-2025 Reagin and Treponema pallidum IgG and IgM [Interp] Cannot exclude recent Treponemal infection if specimen collected within 7-10 days after appearance of suspect lesions or 2-3 weeks after an exposure. Clinical correlation is required. Normal [facility] Comment on above: Order Comment: Speci men Type: BLOOD SPECIMEN Ordering Facility: [facility] Address: [address] [place] [address] Performed By: #### 7 3752-8 #### [facility] CLIA [id number] [address] [place] [address] [place] URINE OB DIP B/Oon 5 Glucose Ql (U) Negative Neg mg/dL [facility] Interpretation and review of laboratory results Normal [facility] Protein.monoclonal (U) [Mass/Vol] Negative Neg mg/dL [facility] Urine Cultureon 02-05-2025 URC Below infection leve l. Mixed Gram Positive Organisms [place] Count 1000-10,000 MIXC Mixed contaminants. Submit a new specimen if indicated. Normal [facility] Comment on above: Performed By: #### M 100.2200, L400.0001 #### [facility] [address] [place], [place], [id number] Bilirubin Test strip Ql (U)O rdered By: David Mckinney on 02-03-2025 Bilirubin Ql (U) Negative Negative [facility] Ketones Test strip Ql (U)Ord ered By: David Mckinney on 02-03-2025 Ketones Ql (U) Negative Negative [facility] Microscopic analysis of urin e for red blood cells (RBC)Ordered By: David Mckinney on 02-03-2025 Microscopic analysis of urine for red blood cells (RBC) 0-5 SEEN /hpf 0-5 [facility] Mucus LM Ql (Urine sed)Order ed By: David Mckinney on 02-03-2025 Mucus Ql (Urine sed) 0 SEEN /hpf [facility] Nitrite Test strip Ql (U)Ord ered By: David Mckinney on 02-03-2025 Nitrite Ql (U) Negative Negative [facility] Protein Test strip Ql (U)Ord ered By: David Mckinney on 02-03-2025 Protein Ql (U) Negative Negative [facility] Squamous epithelial cells de tection in urine sediment by light microscopyOrdered By: David Mckinney on 02-03-2025 Epithelial cells.squamous LM Ql (Urine sed) 0-5 SEEN /hpf 5-10 [facility] Urinalysis, Completeon 02-03 EPI,SQUAMOUS 0-5 SEEN Normal 5-10 [facility] Comment on above: Order Comment: CLEAN CATCH Performed By: #### M 100.2200, L400.0001 #### [facility] [address] [place], [address] RBC 0-5 SEEN Normal 0-5 [facility] Comment on above: Order Comment: CLEAN CATCH Performed By: #### M 100.2200, L400.0001 #### [facility] [address] [place], [address] WBC 0-5 SEEN Normal 0-5 [facility] Comment on above: Order Comment: CLEAN CATCH Performed By: #### M 100.2200, L400.0001 #### [facility] [address] [place], [address] BACTERIA 0 SEEN Normal None Seen [facility] Comment on above: Order Comment: CLEAN CATCH Performed By: #### M 100.2200, L400.0001 #### [facility] [address] [place], [address] Mucus Ql (Urine sed) 0 SEEN Normal [facility] Comment on above: Order Comment: CLEAN CATCH Performed By: #### M 100.2200, L400.0001 #### [facility] [address] [place], [address] Urine clarityOrdered By: Maya Mckinney on 02-03-2025 Clarity (U) Clear Clear [facility] Urine color determinationOrd ered By: David Mckinney on 02-03-2025 Color (U) Yellow Yellow [facility] Urine cultureOrdered By: Maya Mckinney on 02-03-2025 Bacteria identified Cx Nom (U) Positive Abnormal [facility] Urine glucose detectionOrder ed By: David Mckinney on 02-03-2025 Glucose Ql (U) Normal mg/dl Normal [facility] Urine leukocyte esterase det ection by dipstickOrdered By: David Mckinney on 02-03-2025 Leukocyte esterase Test strip Ql (U) Negative Negative [facility] Urine pHOrdered By: David aviles on 02-03-2025 pH (U) 7.0 [pH] 5.0 - 8.0 [facility] Urine sediment bacteria coun t by microscopy (number/high power field)Ordered By: David Mckinney on 02-03-2025 Bacteria LM.HPF (Urine sed) [#/Area] 0 /[HPF] None Seen [facility] Urine specific gravity measu rementOrdered By: David Mckinney on 02-03-2025 Specific gravity (U) [Rel density] 1.010 1.002-1.030 [facility] Urine urobilinogen measureme ntOrdered By: David Mckinney on 02-03-2025 Urobilinogen Ql (U) Normal mg/dl Normal [facility] White blood cell countOrdere d By: David Mckinney on 02-03-2025 White blood cell count 0-5 SEEN /hpf 0-5 [facility] Office Visit Reporton 2024 Office Visit Report [facility] [address] [place] [address] OFFICE VISIT Date of Service: 01/28/25 MR#: [id number] Acct: [id number] Patient: SHILPA HOANG Rep #: [id number] : 1995 Provider: DARIO Pizano Age/Sex: 29/F Location: [facility] Status: Signed Intake Vital Signs 12/11/24 13:47 01/28/25 10:32 Height 5 ft 5 in 5 ft 5 in Intake Visit Reasons: [employer] BAT/[employer].. ONLY DID BAT Allergies walnut (walnuts) Allergy (Severe, Verified 12/11/24 13:47) Swelling corn Adverse Reaction (Verified 12/11/24 13:47) Other Office Procedures [facility] Billing Sheet Testing Breath Alcohol in [facility]: Yes 02/03/25 0750 Date Kale BISHOP Cosigner Signature: Date (if applicable) CC: Normal [facility] Absolute lymphocyte countOrd ered By: David Mckinney on 02-01-2025 Lymphocytes Auto (Unsp spec) [#/Vol] 2.15 10*3/uL 0.83-4.51 [facility] Absolute neutrophil countOrd ered By: David Mckinney on 02-01-2025 Neutrophils (Bld) [#/Vol] 5.4 10*3/uL 2.0-7.7 [facility] Anion gap in Serum or Plasma Ordered By: David Mckinney on 02-01-2025 Anion gap [Moles/Vol] 12 mmol/L 5-15 [facility] Automated lymphocyte count a s percentage of total leukocytesOrdered By: David Mckinney on 02-01-2025 Lymphocytes/100 WBC Auto (Unsp spec) 25.6 % 19-41 [facility] BUN/creatinine ratioOrdered By: David Mckinney on 02-01-2025 Urea nitrogen/Creatinine [Mass ratio] 10.3 mg/mg 10-20 [facility] Basophil percentageOrdered B y: David Mckinney on 02-01-2025 Basophils/100 WBC (Bld) 0.5 % 0-1 [facility] Bilirubin, totalOrdered By: David Mckinney on 02-01-2025 Bilirubin [Mass/Vol] 0.17 mg/dL 0.00-1.30 [facility] CBC W/Diff, Automatedon 01-21 Absolute Lymph 2.15 X10 3/uL Normal 0.83-4.51 [facility] Comment on above: Performed By: #### L 501.4100, L501.0900, L501.1105, L100.0500, L501.1400, L501.4405 #### [facility] [address] [place], [address] Absolute Neut 5.4 X10 3/uL Normal 2.0-7.7 [facility] Comment on above: Performed By: #### L 501.4100, L501.0900, L501.1105, L100.0500, L501.1400, L501.4405 #### [facility] [address] [place], [address] Basophils/100 WBC (Bld) 0.5 % Normal 0-1 [facility] Comment on above: Performed By: #### L 501.4100, L501.0900, L501.1105, L100.0500, L501.1400, L501.4405 #### [facility] [address] [place], [address] Eosinophils/100 WBC (Bld) 5.1 % High 0-5 [facility] Comment on above: Performed By: #### L 501.4100, L501.0900, L501.1105, L100.0500, L501.1400, L501.4405 #### [facility] [address] [place], [address] Erythrocyte distribution width (RBC) [Ratio] 14.9 % High 11.6-14.6 [facility] Comment on above: Performed By: #### L 501.4100, L501.0900, L501.1105, L100.0500, L501.1400, L501.4405 #### [facility] [address] [place], [address] Hematocrit (Bld) [Volume fraction] 30.6 % Low 37-47 [facility] Comment on above: Performed By: #### L 501.4100, L501.0900, L501.1105, L100.0500, L501.1400, L501.4405 #### [facility] [address] [place], [address] Hemoglobin (Bld) [Mass/Vol] 10.0 g/dL Low 12.0-15.0 [facility] Comment on above: Performed By: #### L 501.4100, L501.0900, L501.1105, L100.0500, L501.1400, L501.4405 #### [facility] [address] [place], [address] IG% 0.600 Normal 0.0-0.9 [facility] Comment on above: Result Comment: IG% - Immature Granulocytes (promyelocytes, myelocytes and metamyelocytes) > 1% indicates that a LEFT SHIFT is Present. Performed By: #### L 501.4100, L501.0900, L501.1105, L100.0500, L501.1400, L501.4405 #### [facility] [address] [place], [address] Lymphocytes/100 WBC (Bld) 25.6 % Normal 19-41 [facility] Comment on above: Performed By: #### L 501.4100, L501.0900, L501.1105, L100.0500, L501.1400, L501.4405 #### [facility] [address] [place], [address] MCH (RBC) [Entitic mass] 28.0 pg Normal 27.0-32.0 [facility] Comment on above: Performed By: #### L 501.4100, L501.0900, L501.1105, L100.0500, L501.1400, L501.4405 #### [facility] [address] [place], [address] MCHC (RBC) [Mass/Vol] 32.7 g/dL Normal 32-36 [facility] Comment on above: Performed By: #### L 501.4100, L501.0900, L501.1105, L100.0500, L501.1400, L501.4405 #### [facility] [address] [place], [address] MCV (RBC) [Entitic vol] 85.7 fL Normal 81-99 [facility] Comment on above: Performed By: #### L 501.4100, L501.0900, L501.1105, L100.0500, L501.1400, L501.4405 #### [facility] [address] [place], [address] Monocytes/100 WBC (Bld) 4.5 % Normal 0-10 [facility] Comment on above: Performed By: #### L 501.4100, L501.0900, L501.1105, L100.0500, L501.1400, L501.4405 #### [facility] [address] [place], [address] Neutrophils/100 WBC (Bld) 63.7 % Normal 47-70 [facility] Comment on above: Performed By: #### L 501.4100, L501.0900, L501.1105, L100.0500, L501.1400, L501.4405 #### [facility] [address] [place], [address] Nucleated RBC (Bld) [#/Vol] 0 10*3/uL Normal 0-5 [facility] Comment on above: Performed By: #### L 501.4100, L501.0900, L501.1105, L100.0500, L501.1400, L501.4405 #### [facility] [address] [place], [address] Platelet mean volume (Bld) [Entitic vol] 12.6 fL High 6.2-12.0 [facility] Comment on above: Performed By: #### L 501.4100, L501.0900, L501.1105, L100.0500, L501.1400, L501.4405 #### [facility] [address] [place], [address] Platelets (Bld) [#/Vol] 180 10*3/uL Normal 150-450 [facility] Comment on above: Performed By: #### L 501.4100, L501.0900, L501.1105, L100.0500, L501.1400, L501.4405 #### [facility] [address] [place], [address] RBC (Bld) [#/Vol] 3.57 10*6/uL Low 4.2-5.4 [facility] Comment on above: Performed By: #### L 501.4100, L501.0900, L501.1105, L100.0500, L501.1400, L501.4405 #### [facility] [address] [place], [address] RDW SD 46.1 fl High 35.1-43.9 [facility] Comment on above: Performed By: #### L 501.4100, L501.0900, L501.1105, L100.0500, L501.1400, L501.4405 #### [facility] [address] [place], [address] WBC (Bld) [#/Vol] 8.4 10*3/uL Normal 4.4-11.0 [facility] Comment on above: Performed By: #### L 501.4100, L501.0900, L501.1105, L100.0500, L501.1400, L501.4405 #### [facility] [address] [place], [address] Carbon dioxide, total [Moles /volume] in Central venous bloodOrdered By: David Mckinney on 02-01-2025 CO2 [Moles/Vol] 19.0 mmol/L Low 21.0-32.0 [facility] Chloride assayOrdered By: Davidson Mckinney on 02-01-2025 Chloride [Moles/Vol] 106 mmol/L 98-108 [facility] Comprehensive Metabolic Prof ilon 02-01-2025 Albumin [Mass/Vol] 3.1 g/dL Low 3.5-5.0 [facility] Comment on above: Performed By: #### L 501.4100, L501.0900, L501.1105, L100.0500, L501.1400, L501.4405 #### [facility] [address] [place], [address] Albumin/Globulin [Mass ratio] 1.1 {ratio} Normal 0.9-2.4 [facility] Comment on above: Performed By: #### L 501.4100, L501.0900, L501.1105, L100.0500, L501.1400, L501.4405 #### [facility] [address] [place], [address] ALK PHOS 99 U/L Normal 35-104 [facility] Comment on above: Performed By: #### L 501.4100, L501.0900, L501.1105, L100.0500, L501.1400, L501.4405 #### [facility] [address] [place], [address] ALT [Catalytic activity/Vol] 11 U/L Normal <=34 [facility] Comment on above: Performed By: #### L 501.4100, L501.0900, L501.1105, L100.0500, L501.1400, L501.4405 #### [facility] [address] [place], [address] AST [Catalytic activity/Vol] 12 U/L Normal <=31 [facility] Comment on above: Performed By: #### L 501.4100, L501.0900, L501.1105, L100.0500, L501.1400, L501.4405 #### [facility] [address] [place], [address] Bilirubin [Mass/Vol] 0.17 mg/dL Normal 0.00-1.30 [facility] Comment on above: Performed By: #### L 501.4100, L501.0900, L501.1105, L100.0500, L501.1400, L501.4405 #### [facility] [address] [place], [address] BUN/CRE 10.3 RATIO Normal 10-20 [facility] Comment on above: Performed By: #### L 501.4100, L501.0900, L501.1105, L100.0500, L501.1400, L501.4405 #### [facility] [address] [place], [address] Calcium [Mass/Vol] 8.2 mg/dL Normal 7.6-11.0 [facility] Comment on above: Performed By: #### L 501.4100, L501.0900, L501.1105, L100.0500, L501.1400, L501.4405 #### [facility] [address] [place], [address] Chloride [Moles/Vol] 106 mmol/L Normal 98-108 [facility] Comment on above: Performed By: #### L 501.4100, L501.0900, L501.1105, L100.0500, L501.1400, L501.4405 #### [facility] [address] [place], [address] CO2 [Moles/Vol] 19.0 mmol/L Low 21.0-32.0 [facility] Comment on above: Performed By: #### L 501.4100, L501.0900, L501.1105, L100.0500, L501.1400, L501.4405 #### [facility] [address] [place], [address] Creatinine [Mass/Vol] 0.45 mg/dL Low 0.70-1.20 [facility] Comment on above: Performed By: #### L 501.4100, L501.0900, L501.1105, L100.0500, L501.1400, L501.4405 #### [facility] [address] [place], [address] GAP 12 Normal 5-15 [facility] Comment on above: Performed By: #### L 501.4100, L501.0900, L501.1105, L100.0500, L501.1400, L501.4405 #### [facility] [address] [place], [address] GFR/1.73 sq M.predicted among non-blacks MDRD (S/P/Bld) [Vol rate/Area] 134 mL/min/{1.73_m2} Normal >60 [facility] Comment on above: Result Comment: mL/m in/1.73m2 CKD-EPI Creatinine Equation (2020) Performed By: #### L 501.4100, L501.0900, L501.1105, L100.0500, L501.1400, L501.4405 #### [facility] [address] [place], [address] Globulin (S) [Mass/Vol] 2.8 g/dL Normal 2.2-4.2 [facility] Comment on above: Performed By: #### L 501.4100, L501.0900, L501.1105, L100.0500, L501.1400, L501.4405 #### [facility] [address] [place], [address] Glucose [Mass/Vol] 94 mg/dL Normal 70-99 [facility] Comment on above: Performed By: #### L 501.4100, L501.0900, L501.1105, L100.0500, L501.1400, L501.4405 #### [facility] [address] [place], [address] Potassium [Moles/Vol] 3.3 mmol/L Normal 3.3-5.1 [facility] Comment on above: Performed By: #### L 501.4100, L501.0900, L501.1105, L100.0500, L501.1400, L501.4405 #### [facility] [address] [place], [address] Sodium [Moles/Vol] 137 mmol/L Normal 133-145 [facility] Comment on above: Performed By: #### L 501.4100, L501.0900, L501.1105, L100.0500, L501.1400, L501.4405 #### [facility] [address] [place], [address] T PROT 5.9 g/dL Normal 5.9-8.4 [facility] Comment on above: Performed By: #### L 501.4100, L501.0900, L501.1105, L100.0500, L501.1400, L501.4405 #### [facility] [address] [place], [address] Urea nitrogen [Mass/Vol] 5 mg/dL Normal 4-19 [facility] Comment on above: Performed By: #### L 501.4100, L501.0900, L501.1105, L100.0500, L501.1400, L501.4405 #### [facility] [address] [place], [place], [address] Eosinophil percentageOrdered By: David Mckinney on 02-01-2025 Eosinophils/100 WBC (Bld) 5.1 % High 0-5 [facility] Erythrocyte distribution wid th ratioOrdered By: David Mckinney on 02-01-2025 Erythrocyte distribution width (RBC) [Ratio] 14.9 % High 11.6-14.6 [facility] Erythrocyte distribution wid th standard deviationOrdered By: David Mckinney on 02-01-2025 Erythrocyte distribution width (RBC) [Ratio] 46.1 fl High 35.1-43.9 [facility] Ferritinon 02-01-2025 Ferritin [Mass/Vol] 11 ng/mL Low 22-378 [facility] Comment on above: Performed By: #### L 501.4100, L501.0900, L501.1105, L100.0500, L501.1400, L501.4405 #### [facility] [address] [place], [address] Glomerular filtration rate ( GFR) estimation/1.73 sq m using serum, plasma, or whole bOrdered By: David Mckinney on 02-01-2025 GFR/1.73 sq M.predicted among non-blacks MDRD (S/P/Bld) [Vol rate/Area] 134 mL/min/{1.73_m2} >60 [facility] Comment on above: mL/min/1.73m2 CKD-EP I Creatinine Equation (2020) Hematocrit Auto (Bld) [Volum e fraction]Ordered By: David Mckinney on 02-01-2025 Hematocrit (Bld) [Volume fraction] 30.6 % Low 37-47 [facility] Hemoglobin measurementOrdere d By: David Mckinney on 02-01-2025 Hemoglobin (Bld) [Mass/Vol] 10.0 g/dL Low 12.0-15.0 [facility] Immature granulocytes/100 WB C Auto (Bld)Ordered By: David Mckinney on 02-01-2025 Immature granulocytes/100 WBC (Bld) 0.600 % 0.0-0.9 [facility] Comment on above: IG% - Immature Granu locytes (promyelocytes, myelocytes and metamyelocytes) > 1% indicates that a LEFT SHIFT is Present. Laboratory - Chemistry and C hemistry - challengeOrdered By: David Mckinney on 02-01-2025 AST [Catalytic activity/Vol] 12 U/L <32 [facility] MCV (mean corpuscular volume ) determinationOrdered By: David Mckinney on 02-01-2025 MCV (RBC) [Entitic vol] 85.7 fL 81-99 [facility] Mean corpuscular hemoglobin (MCH) determinationOrdered By: David Mckinney on 02-01-2025 MCH (RBC) [Entitic mass] 28.0 pg 27.0-32.0 [facility] Mean corpuscular hemoglobin concentration (MCHC) determinationOrdered By: David Mckinney on 02-01-2025 MCHC (RBC) [Mass/Vol] 32.7 g/dL 32-36 [facility] Mean platelet volume determi nationOrdered By: David Mckinney on 02-01-2025 Platelet mean volume (Bld) [Entitic vol] 12.6 fL High 6.2-12.0 [facility] Monocyte percentageOrdered B y: David Mckinney on 02-01-2025 Monocytes/100 WBC (Bld) 4.5 % 0-10 [facility] Neutrophil percentageOrdered By: David Mckinney on 02-01-2025 Neutrophils/100 WBC (Bld) 63.7 % 47-70 [facility] Nucleated red blood cell per centageOrdered By: David Mckinney on 02-01-2025 Nucleated RBC/100 WBC (Bld) [Ratio] 0 % 0-5 [facility] Platelet countOrdered By: Davidson Mckinney on 02-01-2025 Platelets (Bld) [#/Vol] 180 10*3/uL 150-450 [facility] Potassium measurement (mass/ volume)Ordered By: David Mckinney on 02-01-2025 Potassium (Unsp spec) [Mass/Vol] 3.3 mmol/L 3.3-5.1 [facility] RBC Auto (Bld) [#/Vol]Ordere d By: David Mckinney on 02-01-2025 RBC (Bld) [#/Vol] 3.57 10*6/uL Low 4.2-5.4 [facility] Serum creatinine measurement (mass/volume)Ordered By: David Mckinney on 02-01-2025 Creatinine [Mass/Vol] 0.45 mg/dL Low 0.70-1.20 [facility] Serum globulin measurementOr dered By: David Mckinney on 02-01-2025 Globulin (S) [Mass/Vol] 2.8 g/dL 2.2-4.2 [facility] Serum glucose measurement (m ass/volume)Ordered By: David Mckinney on 02-01-2025 Glucose [Mass/Vol] 94 mg/dL 70-99 [facility] Serum or plasma alanine rivero otransferase (ALT) measurementOrdered By: David Mckinney on 02-01-2025 ALT [Catalytic activity/Vol] 11 U/L <35 [facility] Serum or plasma albumin roopa urement (mass/volume)Ordered By: David Mckinney on 02-01-2025 Albumin [Mass/Vol] 3.1 g/dL Low 3.5-5.0 [facility] Serum or plasma albumin/glob ulin mass ratioOrdered By: David Mckinney on 02-01-2025 Albumin/Globulin [Mass ratio] 1.1 {ratio} 0.9-2.4 [facility] Serum or plasma alkaline robert sphatase measurementOrdered By: aDvid Mckinney on 02-01-2025 ALP [Catalytic activity/Vol] 99 U/L 35-104 [facility] Serum or plasma calcium roopa urement (mass/volume)Ordered By: David Mckinney on 02-01-2025 Calcium [Mass/Vol] 8.2 mg/dL 7.6-11.0 [facility] Serum or plasma ferritin naresh surement (mass/volume)Ordered By: David Mckinney on 02-01-2025 Ferritin [Mass/Vol] 11 ng/mL Low 22-378 [facility] Serum or plasma urea nitroge n measurement (mass/volume)Ordered By: David Mckinney on 02-01-2025 Urea nitrogen [Mass/Vol] 5 mg/dL 4-19 [facility] Sodium levelOrdered By: David Mckinney on 02-01-2025 Sodium [Moles/Vol] 137 mmol/L 133-145 [facility] TSH DL <= 0.005 mIU/L QnOrde red By: David Mckinney on 02-01-2025 TSH Qn 0.340 uIU/mL 0.300-4.200 [facility] Thyroid Stim Hormone (TSH)on 02-01-2025 TSH 0.340 uIU/mL Normal 0.300-4.200 [facility] Comment on above: Performed By: #### L 501.4100, L501.0900, L501.1105, L100.0500, L501.1400, L501.4405 #### [facility] [address] [place] [address], [address] Total proteinOrdered By: Maya Mckinney on 02-01-2025 Protein [Mass/Vol] 5.9 g/dL 5.9-8.4 [facility] White blood cell (WBC) count Ordered By: David Mckinney on 02-01-2025 WBC (Bld) [#/Vol] 8.4 10*3/uL 4.4-11.0 [facility] CNPNon 01-13-2025 CNPN Telephone (OGFVWE) SHILPA HOANG ([id number]) 1995 F Date Time Provider Department 01/13/25 [employer] [employer] FRJamal LIPSCOMB OGFVWE During your visit today, we recorded the following information about you: Carla Mckinney, RN 01/13/2025 10:05 AM Signed 2nd risk [...] tablet by mouth once daily. - PNV no.214-yjcw-ncfaxpngiey e 29-1 mg tab Take 1 tablet [...] Status:Closed by CARLA MCKINNEY on 01/13/25 Normal [facility] Examination level ultrasound on 01-12-2025 Indication Standard [...] 12 oz EFW by: Hadlock (HC-AC-FL) Extended Human Machine Interface Engineer 6.0 mm CM 4.1 mm 22% Nicolaides [...] normal LVOT view: normal 3-vessel view: normal 8-rzrieo-ipdfwnd view: normal Heart / Thorax Situs: situs [...] By: Khushboo Easley RDMS, RVT Read By: Vilma Farrell M.D. MATERNAL MEDICINE [facility] Radiology Study observation (narrative) [facility] Bacteria Ur Culton Bacteria identified Cx Nom (U) ORGANISM ID: 1 10,000 -<50,000 CFU/ml Normal urogenital casimiro Normal [facility] Comment on above: Performed By: #### 6 30-4 ####[facility] LABCLIA [id number] [place] [address] [place] CBC panel Auto (Bld)on 01-10 Erythrocyte distribution width (RBC) [Ratio] 14.5 % Normal 11.5-15.0 [facility] Comment on above: Order Comment: Speci men Type: BLOOD SPECIMENOrdering Facility: [facility] Address: [address] [place] [address] Performed By: #### 5 8410-2 ####[facility] CASEYANGELA [id number] [place] [address] [place] Hematocrit (Bld) [Volume fraction] 33.7 % Low 36.0-46.0 [facility] Comment on above: Order Comment: Speci men Type: BLOOD SPECIMENOrdering Facility: [facility] Address: [address] [place] [address] Performed By: #### 5 8410-2 ####[facility] HOSPITALNCMICHELLE [id number] [place] [address] [place] Hemoglobin (Bld) [Mass/Vol] 11.2 g/dL Low 11.5-15.5 [facility] Comment on above: Order Comment: Speci men Type: BLOOD SPECIMENOrdering Facility: [facility] Address: [address] [place] [address] Performed By: #### 5 8410-2 ####[facility] HOSPITALNCA [id number] [place] [address] [place] MCH (RBC) [Entitic mass] 27.7 pg Normal 26.0-34.0 [facility] Comment on above: Order Comment: Speci men Type: BLOOD SPECIMENOrdering Facility: [facility] Address: [address] [place] [address] Performed By: #### 5 8410-2 ####[facility] HOSPITALNCLIA [id number] [place] [address] [place] MCHC (RBC) [Mass/Vol] 33.2 g/dL Normal 30.5-36.0 [facility] Comment on above: Order Comment: Speci men Type: BLOOD SPECIMENOrdering Facility: [facility] Address: [address] [place] [address] Performed By: #### 5 8410-2 ####[facility] HOSPITALBRENDALIA [id number] [place] [address] [place] MCV (RBC) [Entitic vol] 83.2 fL Normal 80.0-100.0 [facility] Comment on above: Order Comment: Speci men Type: BLOOD SPECIMENOrdering Facility: [facility] Address: [address] [place] [address] Performed By: #### 5 8410-2 ####[facility] [id number] [place] [address] [place] Nucleated RBC (Bld) [#/Vol] 10*3/uL Normal <0.01 [facility] Comment on above: Order Comment: Speci men Type: BLOOD SPECIMENOrdering Facility: [facility] Address: [address] [place] [address] Performed By: #### 5 8410-2 ####[facility] [id number] [place] [address] [place] Platelet mean volume (Bld) [Entitic vol] 11.5 fL Normal 9.0-12.7 [facility] Comment on above: Order Comment: Speci men Type: BLOOD SPECIMENOrdering Facility: [facility] Address: [address] [place] [address] Performed By: #### 5 8410-2 ####[facility] [id number] [place] [address] [place] Platelets (Bld) [#/Vol] 203 10*3/uL Normal 150-400 [facility] Comment on above: Order Comment: Speci men Type: BLOOD SPECIMENOrdering Facility: [facility] Address: [address] [place] [address] Performed By: #### 5 8410-2 ####[facility] [id number] [place] [address] [place] RBC (Bld) [#/Vol] 4.05 10*6/uL Normal 3.90-5.20 [facility] Comment on above: Order Comment: Speci men Type: BLOOD SPECIMENOrdering Facility: [facility] Address: [address] [place] [address] Performed By: #### 5 8410-2 ####[facility] HOSPITALQINGA [id number] [place] [address] [place] WBC (Bld) [#/Vol] 11.61 10*3/uL High 3.70-11.00 [facility] Comment on above: Order Comment: Speci men Type: BLOOD SPECIMENOrdering Facility: [facility] Address: [address] [place] [address] Performed By: #### 5 8410-2 ####[facility] HOSPITALNCMICHELLE [id number] [place] [address] [place] Comprehensive metabolic 2000 panelon 01-10-2025 Albumin [Mass/Vol] 3.7 g/dL Low 3.9-4.9 [facility] Comment on above: Order Comment: Speci men Type: BLOOD SPECIMENOrdering Facility: [facility] Address: [address] [place] [address] Performed By: #### 2 4323-8 ####[facility] HOSPITALQINGA [id number] [place] [address] [place] ALP [Catalytic activity/Vol] 97 U/L Normal 34-123 [facility] Comment on above: Order Comment: Speci men Type: BLOOD SPECIMENOrdering Facility: [facility] Address: [address] [place] [address] Performed By: #### 2 4323-8 ####[facility] HOSPITALWNCLIA [id number] [place] [address] [place] ALT [Catalytic activity/Vol] 7 U/L Normal 7-38 [facility] Comment on above: Order Comment: Speci men Type: BLOOD SPECIMENOrdering Facility: [facility] Address: [address] [place] [address] Performed By: #### 2 4323-8 ####[facility] HOSPITALWNCLIA [id number] [place] [address] [place] Anion gap [Moles/Vol] 14 mmol/L Normal 8-15 [facility] Comment on above: Order Comment: Speci men Type: BLOOD SPECIMENOrdering Facility: [facility] Address: [address] [place] [address] Performed By: #### 2 4323-8 ####[facility] SPRINGFIELDLIA [id number] [place] [address] [place] AST [Catalytic activity/Vol] 9 U/L Low 13-35 [facility] Comment on above: Order Comment: Speci men Type: BLOOD SPECIMENOrdering Facility: [facility] Address: [address] [place] [address] Performed By: #### 2 4323-8 ####[facility] [id number] [place] [address] [place] Bilirubin [Mass/Vol] 0.2 mg/dL Normal 0.2-1.3 [facility] Comment on above: Order Comment: Speci men Type: BLOOD SPECIMENOrdering Facility: [facility] Address: [address] [place] [address] Performed By: #### 2 4323-8 ####[facility] SPRINGFIELDLIA [id number] [place] [address] [place] Calcium [Mass/Vol] 9.1 mg/dL Normal 8.5-10.2 [facility] Comment on above: Order Comment: Speci men Type: BLOOD SPECIMENOrdering Facility: [facility] Address: [address] [place] [address] Performed By: #### 2 4323-8 ####[facility] HOSPITALWNCLIA [id number] [place] [address] [place] Chloride [Moles/Vol] 102 mmol/L Normal 98-107 [facility] Comment on above: Order Comment: Speci men Type: BLOOD SPECIMENOrdering Facility: [facility] Address: [address] [place] [address] Performed By: #### 2 4323-8 ####[facility] SPRINGFIELDLIA [id number] [place] [address] [place] CO2 [Moles/Vol] 19 mmol/L Low 22-30 [facility] Comment on above: Order Comment: Speci men Type: BLOOD SPECIMENOrdering Facility: [facility] Address: [address] [place] [address] Performed By: #### 2 4323-8 ####[facility] SPRINGFIELDLIA [id number] [place] [address] [place] Creatinine [Mass/Vol] 0.45 mg/dL Low 0.58-0.96 [facility] Comment on above: Order Comment: Speci men Type: BLOOD SPECIMENOrdering Facility: [facility] Address: [address] [place] [address] Performed By: #### 2 4323-8 ####[facility] [id number] [place] [address] [place] eGFRcr SerPlBld CKD-EPI 2020 135 mL/min/1.73m??? Normal >=60 [facility] Comment on above: Order Comment: Speci men Type: BLOOD SPECIMENOrdering Facility: [facility] Address: [address] [place] [address] Result Comment: Sameera mated Glomerular Filtration Rate [...] actual GFR. Performed By: #### 2 4323-8 ####[facility]AL[facility] [id number] [place] [address] [place] Glucose [Mass/Vol] 105 mg/dL High 74-99 [facility] Comment on above: Order Comment: Speci men Type: BLOOD SPECIMENOrdering Facility: [facility] Address: [address] [place] [address] Result Comment: The [place] Diabetes Association (ADA) provides guidance for cutoff [...] Standards of Medical Care in Diabetes 2016, [place] Diabetes Association. Diabetes Care. 2016.39(Suppl 1). Performed By: #### 2 4323-8 ####[facility]FIEL[facility] [id number] [place] [address] [place] Potassium [Moles/Vol] 4.2 mmol/L Normal 3.7-5.1 [facility] Comment on above: Order Comment: Speci men Type: BLOOD SPECIMENOrdering Facility: [facility] Address: [address] [place] [address] Performed By: #### 2 4323-8 ####[facility]ITAL[facility]CL[facility] [id number] [place] [address] [place] Protein [Mass/Vol] 6.8 g/dL Normal 6.3-8.0 [facility] Comment on above: Order Comment: Speci men Type: BLOOD SPECIMENOrdering Facility: [facility] Address: [address] [place] [address] Performed By: #### 2 4323-8 ####[facility] [id number] [place] [address] [place] Sodium [Moles/Vol] 135 mmol/L Low 136-144 [facility] Comment on above: Order Comment: Speci men Type: BLOOD SPECIMENOrdering Facility: [facility] Address: [address] [place] [address] Performed By: #### 2 4323-8 ####[facility] [id number] [place] [address] [place] Urea nitrogen [Mass/Vol] 9 mg/dL Normal 7-21 [facility] Comment on above: Order Comment: Speci men Type: BLOOD SPECIMENOrdering Facility: [facility] Address: [address] [place] [address] Performed By: #### 2 4323-8 ####[facility] [id number] [place] [address] [place] [id number] PLUSon 01-10-2025 Cell-free DNA./Cell-free DNA.total Dosage of chromosome-specific cfDNA (cfDNA) [Molar fraction] Normal [facility] Comment on above: Order Comment: Speci men Type: BLOOD SPECIMENOrdering Facility: [facility] Address: [address] [place] [address] Performed By: #### M AT21 ####[facility] LABCLIA [id number] [place] [address] Chr 13+18+21+X+Y aneuploidy Dosage of chromosome-specific cfDNA Ql (cfDNA) Abnormal [facility] Comment on above: Order Comment: Speci men Type: BLOOD SPECIMENOrdering Facility: [facility] Address: [address] [place] [address] Result Comment: Test not performed. Performed By: #### M AT21 ####[facility] LABCLIA [id number] [place] [address] Citation Jose (Reference lab test) Comment Normal [facility] Comment on above: Order Comment: Speci men Type: BLOOD SPECIMENOrdering Facility: [facility] Address: [address] [place] [address] Result Comment: 1. P sonali HAYS et al. Jahaira Med. 2012;14(3):296-305. 2. Latha WADE, et al. Prenat Diag. 2013;33(6):591-597. 3. Bryn C, et al. Clin Chem. 2015 Sep;61(4):608-616. 4. Paul HAYS et al. Jahaira Med. 2011;13(11):913-920. 5. ACOG/SMFM Practice Bulletin No. 226, Mar 2020. Performed By: #### M AT21 ####[facility] LABCLIA [id number] [place] [address] Gestational age Estimated from conception date Marquez Normal [facility] Comment on above: Order Comment: Speci men Type: BLOOD SPECIMENOrdering Facility: [facility] Address: [address] [place] [address] Performed By: #### M AT21 ####[facility] LABCLIA [id number] [place] [address] GESTATIONALAGE AGE > OR = 9W Yes Normal [facility] Comment on above: Order Comment: Speci men Type: BLOOD SPECIMENOrdering Facility: [facility] Address: [address] [place] [address] Performed By: #### M AT21 ####[facility] LABCLIA [id number] [place] [address] Laboratory comment Jose (Report) Comment Normal [facility] Comment on above: Order Comment: Speci men Type: BLOOD SPECIMENOrdering Facility: [facility] Address: [address] [place], [place] [address] Result Comment: The MaterniT(R) 21 PLUS laboratory-developed test (LDT) analyzes circulating cell-free DNA from a maternal blood sample. This test is used for screening purposes and not diagnostic. Clinical correlation is recommended. Validation data on twin pregnancies is limited and the ability of this test to detect aneuploidy in higher multiple gestations has not yet been validated. Performed By: #### M AT21 ####[facility] LABCLIA [id number] [place] [phone] television newscast director name Nom (Provider) Comment Normal [facility] Comment on above: Order Comment: Speci men Type: BLOOD SPECIMENOrdering Facility: [facility] Address: [address] [place] [address] Result Comment: Test not performed. Duplicate tests ordered. For inquiries, the physician may contact Client Services at [phone]. Comment Torito Butler MD, PhD, Director, [employer] Performed By: #### M AT21 ####[facility] LABCLIA [id number] [place] [address] LIMITATIONS OF THE TEST Comment Normal [facility] Comment on above: Order Comment: Speci men Type: BLOOD SPECIMENOrdering Facility: [facility] Address: [address] [place] [address] Result Comment: Kayli talbot the results of [...] and Fragmin(R)). Performed By: #### M AT21 ####[employer] [id number] [place] [address] NEGATIVE PREDICTIVE VALUE Comment Normal [facility] Comment on above: Order Comment: Costa bergeron Type: BLOOD SPECIMENOrdering Facility: [facility] Address: [address] [place] [address] Result Comment: The Negative Predictive Value (NPV) for trisomy 21, 18, and 13 is greater than 99%. The NPV for SCA and ESS cannot be calculated as SCA and ESS are only reported when an abnormality is detected. Performed By: #### M AT21 ####[facility] WindIA [id number] [place] [address] PERFORMANCE CHARACTERISTICS Comment Normal [facility] Comment on above: Order Comment: Costa bergeron Type: BLOOD SPECIMENOrdering Facility: [facility] Address: [address] [place] [address], [place] [address] Result Comment: ! Sex ! Accuracy: 99.4% [...] gestation only. Performed By: #### M AT21 ####[facility] LABCLIA [id number] [place] [phone] Reference Lab Test Method Comment Normal [facility] Comment on above: Order Comment: Speci men Type: BLOOD SPECIMENOrdering Facility: [facility] Address: [address] [place] [address] Result Comment: Circ ulating cell-free DNA was [...] and 22. Performed By: #### M AT21 ####[facility] LABCLIA [id number] [place] [address] Service comment (Unsp spec) [Interp] Comment Normal [facility] Comment on above: Order Comment: Speci men Type: BLOOD SPECIMENOrdering Facility: [facility] Address: [address] [place] [address] Result Comment: [employer] is a subsidiary of [employer], using the brand [employer]. This test was developed and its performance characteristics determined by [employer]. It has not been cleared or approved by the Food and Drug Administration. This laboratory is certified under the Clinical Laboratory Improvement Amendments (CLIA) as qualified to perform high complexity clinical laboratory testing and accredited by the College of [place] Pathologists (CAP). Performed By: #### M AT21 ####[facility] LABCLIA [id number] [place] [address] Test performance information Jose (Unsp spec) Comment Normal [facility] Comment on above: Order Comment: Speci men Type: BLOOD SPECIMENOrdering Facility: [facility] Address: [address] [place] [address] Result Comment: The performance characteristics of the MaterniT(R) 21 PLUS laboratory-developed test (LDT) have been determined in a clinical validation study with women at increased risk for chromosomal aneuploidy.[1-4] Performed By: #### M AT21 ####[facility] LABCLIA [id number] [place] [address] Prot/Creat Uron 01-10-2025 Protein/Creatinine (U) [Mass ratio] 0.14 mg/mg Normal <0.15 [facility] Comment on above: Order Comment: Speci men Type: URINE SPECIMENOrdering Facility: [facility] Address: [address] [place] [address] Result Comment: Adul t Proteinuria Categories: <0.15 mg/mg is considered normal to mildly increased 0.15 - 0.50 mg/mg is considered moderately increased >0.50 mg/mg is considered severely increased KDIGO. (2013). KDIGO 2012 Clinical Practice Guideline for the Evaluation and Management of Chronic Kidney Disease. Official Journal of the International Society of Nephrology, 3(1), 1-150. Performed By: #### 2 890-2, UTOX2 ####[facility] LABCLIA [id number] [place] [address] [place] Protein/Creatinine (U) [Mass ratio]on 01-10-2025 Creatinine (U) [Mass/Vol] 79.9 mg/dL Normal 20.0-300.0 [facility] Comment on above: Order Comment: Speci men Type: URINE SPECIMENOrdering Facility: [facility] Address: [address] [place] [address] Performed By: #### 2 890-2, UTOX2 ####[facility] LABCLIA [id number] [place] [id number] [place] Protein (U) [Mass/Vol] 11 mg/dL Normal 0-20 [facility] Comment on above: Order Comment: Speci men Type: URINE SPECIMENOrdering Facility: [facility] Address: [address] [place] [address] Performed By: #### 2 890-2, UTOX2 ####[facility] LABIA [id number] [place] [address] [place] TOXICOLOGY SCREEN, ROUTINE U RINEon 01-10-2025 Amphetamines Confirm (U) [Mass/Vol] Negative Normal Negative [facility] Comment on above: Order Comment: Speci men Type: URINE SPECIMENOrdering Facility: [facility] Address: [address] [place] [address] Result Comment: Cuto ff threshold at 1000 ng/mL. Performed By: #### 2 890-2, UTOX2 ####[facility] LABIA [id number] [place] [address] [place] BARBITURATES, URINE Negative Normal Negative [facility] Comment on above: Order Comment: Speci men Type: URINE SPECIMENOrdering Facility: [facility] Address: [address] [place] [address] Result Comment: Cuto ff threshold at 200 ng/mL. Performed By: #### 2 890-2, UTOX2 ####[facility] LABIA [id number] [place] [id number] [place] BENZODIAZEPINES, URINE Negative Normal Negative [facility] Comment on above: Order Comment: Speci men Type: URINE SPECIMENOrdering Facility: [facility] Address: [address] [place] [address] Result Comment: Cuto ff threshold at 200 ng/mL. Performed By: #### 2 890-2, UTOX2 ####[facility] [id number] [place] [address] [place] Cannabinoids Screen Ql (U) Negative Normal Negative [facility] Comment on above: Order Comment: Speci men Type: URINE SPECIMENOrdering Facility: [facility] Address: [address] [place] [address] Result Comment: Cuto ff threshold at 50 ng/mL. Performed By: #### 2 890-2, UTOX2 ####[facility] [id number] [address] [place] Cocaine Ql (U) Negative Normal Negative [facility] Comment on above: Order Comment: Speci men Type: URINE SPECIMENOrdering Facility: [facility] Address: [address] [place] [address] Result Comment: Cuto ff threshold at 300 ng/mL. Performed By: #### 2 890-2, UTOX2 ####[facility] [id number] [place] [address] [place] Ethanol (U) [Mass/Vol] <11 Normal <11 [facility] Comment on above: Order Comment: Speci men Type: URINE SPECIMENOrdering Facility: [facility] Address: [address] [place] [address] Performed By: #### 2 890-2, UTOX2 ####[facility] [id number] [place] [address] [place] fentaNYL Screen Ql (U) Negative Normal Negative Cl [facility] Comment on above: Order Comment: Speci men Type: URINE SPECIMENOrdering Facility: [facility] Address: [address] [place] [address] Result Comment: Cuto ff threshold at 5 ng/mL. Performed By: #### 2 890-2, UTOX2 ####[facility] [id number] [place] [address] [place] Opiates Screen Ql (U) Negative Normal Negative [facility] Comment on above: Order Comment: Speci men Type: URINE SPECIMENOrdering Facility: [facility] Address: [address] [place] [address] Result Comment: Cuto ff threshold at 300 ng/mL. Performed By: #### 2 890-2, UTOX2 ####[facility] [id number] [place] [address] [place] oxyCODONE cutoff Screen (U) [Mass/Vol] Negative Normal Negative [facility] Comment on above: Order Comment: Speci men Type: URINE SPECIMENOrdering Facility: [facility] Address: [address] [place] [address] Result Comment: Cuto ff threshold at 100 ng/mL. Performed By: #### 2 890-2, UTOX2 ####[facility] [id number] [place] [address] [place] Phencyclidine Ql (U) Negative Normal Negative [facility] Comment on above: Order Comment: Speci men Type: URINE SPECIMENOrdering Facility: [facility] Address: [address] [place] [address] Result Comment: Cuto ff threshold at 25 ng/mL. Performed By: #### 2 890-2, UTOX2 ####[facility] [id number] [place] [address] [place] 12 Lead EKGon 12-11-2024 12 Lead EKG [facility] [address] [place] [address] 12 Lead EKG 12/11/24 1413 MR#: [id number] Acct: [id number] Name: NATALYASHILPA ZAINAB Rep #: [id number] : 1995 28 From: Josh Dudley MD [...] rhythm Normal ECG Confirmed by Josh Dudley ([id number]), editorial clerk IDA OSPINA ([id number]) on 12/14/2024 11:47:52 AM Referred By: UG Confirmed By: Josh Dudley 12/14/24 1147 Date Josh Dudley MD CC: Dr. David Mckinney MD; Dr. Lake Mirza DO Signed Normal [facility] Absolute lymphocyte countOrd ered By: Lake Mirza on 12-11-2024 Lymphocytes Auto (Unsp spec) [#/Vol] 1.53 10*3/uL 0.83-4.51 [facility] Absolute neutrophil countOrd ered By: Lake Mirza on 12-11-2024 Neutrophils (Bld) [#/Vol] 5.2 10*3/uL 2.0-7.7 [facility] Anion gap in Serum or Plasma Ordered By: Lake Mirza on 12-11-2024 Anion gap [Moles/Vol] 12 mmol/L - [facility] Automated lymphocyte count a s percentage of total leukocytesOrdered By: Lake Mirza on 12-11-2024 Lymphocytes/100 WBC Auto (Unsp spec) 20.5 % - [facility] BUN/creatinine ratioOrdered By: Lake Mirza on 12-11-2024 Urea nitrogen/Creatinine [Mass ratio] 12.0 mg/mg 10- [facility] Basophil percentageOrdered B y: Lake Mirza on 12-11-2024 Basophils/100 WBC (Bld) 0.5 % 0-1 [facility] Bilirubin Test strip Ql (U)O rdered By: Lake Mirza on 12-11-2024 Bilirubin Ql (U) Negative Negative [facility] Bilirubin, totalOrdered By: Lake Mirza on 12-11-2024 Bilirubin [Mass/Vol] 0.24 mg/dL 0.00-1.30 [facility] CBC W/Diff, Automatedon 11-22 Absolute Lymph 1.53 X10 3/uL Normal 0.83-4.51 [facility] Comment on above: Performed By: #### L 501.4100, L501.0900, L501.1105, L100.0500, L501.1400, L501.4405 #### [facility] [address] [place], [address] Absolute Neut 5.2 X10 3/uL Normal 2.0-7.7 [facility] Comment on above: Performed By: #### L 501.4100, L501.0900, L501.1105, L100.0500, L501.1400, L501.4405 #### [facility] [address] [place], [address] Basophils/100 WBC (Bld) 0.5 % Normal 0-1 [facility] Comment on above: Performed By: #### L 501.4100, L501.0900, L501.1105, L100.0500, L501.1400, L501.4405 #### [facility] [address] [place], [address] Eosinophils/100 WBC (Bld) 4.7 % Normal 0-5 [facility] Comment on above: Performed By: #### L 501.4100, L501.0900, L501.1105, L100.0500, L501.1400, L501.4405 #### [facility] [address] [place], [address] Erythrocyte distribution width (RBC) [Ratio] 14.6 % Normal 11.6-14.6 [facility] Comment on above: Performed By: #### L 501.4100, L501.0900, L501.1105, L100.0500, L501.1400, L501.4405 #### [facility] [address] [place], [address] Hematocrit (Bld) [Volume fraction] 34.1 % Low 37-47 [facility] Comment on above: Performed By: #### L 501.4100, L501.0900, L501.1105, L100.0500, L501.1400, L501.4405 #### [facility] [address] [place], [address] Hemoglobin (Bld) [Mass/Vol] 11.0 g/dL Low 12.0-15.0 [facility] Comment on above: Performed By: #### L 501.4100, L501.0900, L501.1105, L100.0500, L501.1400, L501.4405 #### [facility] [address] [place], [address] IG% 0.400 Normal 0.0-0.9 [facility] Comment on above: Result Comment: IG% - Immature Granulocytes (promyelocytes, myelocytes and metamyelocytes) > 1% indicates that a LEFT SHIFT is Present. Performed By: #### L 501.4100, L501.0900, L501.1105, L100.0500, L501.1400, L501.4405 #### [facility] [address] [place], [address] Lymphocytes/100 WBC (Bld) 20.5 % Normal 19-41 [facility] Comment on above: Performed By: #### L 501.4100, L501.0900, L501.1105, L100.0500, L501.1400, L501.4405 #### [facility] [address] [place], [address] MCH (RBC) [Entitic mass] 27.6 pg Normal 27.0-32.0 [facility] Comment on above: Performed By: #### L 501.4100, L501.0900, L501.1105, L100.0500, L501.1400, L501.4405 #### [facility] [address] [place], [address] MCHC (RBC) [Mass/Vol] 32.3 g/dL Normal 32-36 [facility] Comment on above: Performed By: #### L 501.4100, L501.0900, L501.1105, L100.0500, L501.1400, L501.4405 #### [facility] [address] [place], [address] MCV (RBC) [Entitic vol] 85.7 fL Normal 81-99 [facility] Comment on above: Performed By: #### L 501.4100, L501.0900, L501.1105, L100.0500, L501.1400, L501.4405 #### [facility] [address] [place], [address] Monocytes/100 WBC (Bld) 4.6 % Normal 0-10 [facility] Comment on above: Performed By: #### L 501.4100, L501.0900, L501.1105, L100.0500, L501.1400, L501.4405 #### [facility] [address] [place], [address] Neutrophils/100 WBC (Bld) 69.3 % Normal 47-70 [facility] Comment on above: Performed By: #### L 501.4100, L501.0900, L501.1105, L100.0500, L501.1400, L501.4405 #### [facility] [address] [place], [address] Nucleated RBC (Bld) [#/Vol] 0 10*3/uL Normal 0-5 [facility] Comment on above: Performed By: #### L 501.4100, L501.0900, L501.1105, L100.0500, L501.1400, L501.4405 #### [facility] [address] [place], [address] Platelet mean volume (Bld) [Entitic vol] 12.0 fL Normal 6.2-12.0 [facility] Comment on above: Performed By: #### L 501.4100, L501.0900, L501.1105, L100.0500, L501.1400, L501.4405 #### [facility] [address] [place], [address] Platelets (Bld) [#/Vol] 176 10*3/uL Normal 150-450 [facility] Comment on above: Performed By: #### L 501.4100, L501.0900, L501.1105, L100.0500, L501.1400, L501.4405 #### [facility] [address] [place], [address] RBC (Bld) [#/Vol] 3.98 10*6/uL Low 4.2-5.4 [facility] Comment on above: Performed By: #### L 501.4100, L501.0900, L501.1105, L100.0500, L501.1400, L501.4405 #### [facility] [address] [place], [address] RDW SD 45.6 fl High 35.1-43.9 [facility] Comment on above: Performed By: #### L 501.4100, L501.0900, L501.1105, L100.0500, L501.1400, L501.4405 #### [facility] [address] [place], [address] WBC (Bld) [#/Vol] 7.5 10*3/uL Normal 4.4-11.0 [facility] Comment on above: Performed By: #### L 501.4100, L501.0900, L501.1105, L100.0500, L501.1400, L501.4405 #### [facility] [address] [place], [address] Carbon dioxide, total [Moles /volume] in Central venous bloodOrdered By: Lake Mirza on 12-11-2024 CO2 [Moles/Vol] 18.6 mmol/L Low 21.0-32.0 [facility] Chloride assayOrdered By: Bhavik Mirza on 12-11-2024 Chloride [Moles/Vol] 107 mmol/L 98-108 [facility] Comprehensive Metabolic Prof ilon 12-11-2024 Albumin [Mass/Vol] 3.3 g/dL Low 3.5-5.0 [facility] Comment on above: Performed By: #### L 501.4100, L501.0900, L501.1105, L100.0500, L501.1400, L501.4405 #### [facility] [address] [place], [address] Albumin/Globulin [Mass ratio] 1.1 {ratio} Normal 0.9-2.4 [facility] Comment on above: Performed By: #### L 501.4100, L501.0900, L501.1105, L100.0500, L501.1400, L501.4405 #### [facility] [address] [place], [address] ALK PHOS 85 U/L Normal 35-104 [facility] Comment on above: Performed By: #### L 501.4100, L501.0900, L501.1105, L100.0500, L501.1400, L501.4405 #### [facility] [address] [place], [address] ALT [Catalytic activity/Vol] 16 U/L Normal <=34 [facility] Comment on above: Performed By: #### L 501.4100, L501.0900, L501.1105, L100.0500, L501.1400, L501.4405 #### [facility] [address] [place], [address] AST [Catalytic activity/Vol] 17 U/L Normal <=31 [facility] Comment on above: Performed By: #### L 501.4100, L501.0900, L501.1105, L100.0500, L501.1400, L501.4405 #### [facility] [address] [place], [address] Bilirubin [Mass/Vol] 0.24 mg/dL Normal 0.00-1.30 [facility] Comment on above: Performed By: #### L 501.4100, L501.0900, L501.1105, L100.0500, L501.1400, L501.4405 #### [facility] [address] [place], [address] BUN/CRE 12.0 RATIO Normal 10-20 [facility] Comment on above: Performed By: #### L 501.4100, L501.0900, L501.1105, L100.0500, L501.1400, L501.4405 #### [facility] [address] [place], [address] Calcium [Mass/Vol] 8.5 mg/dL Normal 7.6-11.0 [facility] Comment on above: Performed By: #### L 501.4100, L501.0900, L501.1105, L100.0500, L501.1400, L501.4405 #### [facility] [address] [place], [address] Chloride [Moles/Vol] 107 mmol/L Normal 98-108 [facility] Comment on above: Performed By: #### L 501.4100, L501.0900, L501.1105, L100.0500, L501.1400, L501.4405 #### [facility] [address] [place], [address] CO2 [Moles/Vol] 18.6 mmol/L Low 21.0-32.0 [facility] Comment on above: Performed By: #### L 501.4100, L501.0900, L501.1105, L100.0500, L501.1400, L501.4405 #### [facility] [address] [place], [address] Creatinine [Mass/Vol] 0.53 mg/dL Low 0.70-1.20 [facility] Comment on above: Performed By: #### L 501.4100, L501.0900, L501.1105, L100.0500, L501.1400, L501.4405 #### [facility] [address] [place], [address] ECRCL 164.63 ml/min Normal 50-250 [facility] Comment on above: Performed By: #### L 501.4100, L501.0900, L501.1105, L100.0500, L501.1400, L501.4405 #### [facility] [address] [place], [address] GAP 12 Normal 5-15 [facility] Comment on above: Performed By: #### L 501.4100, L501.0900, L501.1105, L100.0500, L501.1400, L501.4405 #### [facility] [address] [place], [address] GFR/1.73 sq M.predicted among non-blacks MDRD (S/P/Bld) [Vol rate/Area] 130 mL/min/{1.73_m2} Normal >60 [facility] Comment on above: Result Comment: mL/m in/1.73m2 CKD-EPI Creatinine Equation (2020) Performed By: #### L 501.4100, L501.0900, L501.1105, L100.0500, L501.1400, L501.4405 #### [facility] [address] [place], [address] Globulin (S) [Mass/Vol] 2.9 g/dL Normal 2.2-4.2 [facility] Comment on above: Performed By: #### L 501.4100, L501.0900, L501.1105, L100.0500, L501.1400, L501.4405 #### [facility] [address] [place], [address] Glucose [Mass/Vol] 125 mg/dL High 70-99 [facility] Comment on above: Performed By: #### L 501.4100, L501.0900, L501.1105, L100.0500, L501.1400, L501.4405 #### [facility] [address] [place], [address] Potassium [Moles/Vol] 3.5 mmol/L Normal 3.3-5.1 [facility] Comment on above: Performed By: #### L 501.4100, L501.0900, L501.1105, L100.0500, L501.1400, L501.4405 #### [facility] [address] [place], [address] Sodium [Moles/Vol] 137 mmol/L Normal 133-145 [facility] Comment on above: Performed By: #### L 501.4100, L501.0900, L501.1105, L100.0500, L501.1400, L501.4405 #### [facility] [address] [place], [address] T PROT 6.2 g/dL Normal 5.9-8.4 [facility] Comment on above: Performed By: #### L 501.4100, L501.0900, L501.1105, L100.0500, L501.1400, L501.4405 #### [facility] [address] [place], [address] Urea nitrogen [Mass/Vol] 6 mg/dL Normal 4-19 [facility] Comment on above: Performed By: #### L 501.4100, L501.0900, L501.1105, L100.0500, L501.1400, L501.4405 #### [facility] [address] [place], [address] Emergency Department Summary on 12-11-2024 Emergency Department Summary [facility] Medical Records Department [address] [place] [address] Emergency Department Summary 12/11/24 MR#: [id number] Acct: [id number] Name: SHILPA HOANG Rep #: [id number] : 1995 28 From: [place] PCP: Dr. David Mckinney MD Status:DEP ER Location: ED HPI HPI - GI History of Present Illness Chief Complaint: Abd Pain Informant: patient Narrative Narrative: G5, P4 15-16 with gestation followed by [facility]. Awake and abdominal discomfort this morning [...] Medications ???Medication ???Instructions ???Recorded ???Last Taken ???Type [id number]-[id number] 1 mg 1 tab PO DAILY 09/13/21 [...] results. 22 (more content not included)... Normal [facility] Eosinophil percentageOrdered By: [place] on 12-11-2024 Eosinophils/100 WBC (Bld) 4.7 % 0-5 [facility] Erythrocyte distribution wid th ratioOrdered By: [place] on 12-11-2024 Erythrocyte distribution width (RBC) [Ratio] 14.6 % 11.6-14.6 [facility] Erythrocyte distribution wid th standard deviationOrdered By: [place] on 12-11-2024 Erythrocyte distribution width (RBC) [Ratio] 45.6 fl High 35.1-43.9 [facility] Glomerular filtration rate ( GFR) estimation/1.73 sq m using serum, plasma, or whole bOrdered By: [place] on 12-11-2024 GFR/1.73 sq M.predicted among non-blacks MDRD (S/P/Bld) [Vol rate/Area] 130 mL/min/{1.73_m2} >60 [facility] Comment on above: mL/min/1.73m2 CKD-EP I Creatinine Equation (2020) Hematocrit Auto (Bld) [Volum e fraction]Ordered By: [place] on 12-11-2024 Hematocrit (Bld) [Volume fraction] 34.1 % Low 37-47 [facility] Hemoglobin measurementOrdere d By: [place] on 12-11-2024 Hemoglobin (Bld) [Mass/Vol] 11.0 g/dL Low 12.0-15.0 [facility] Immature granulocytes/100 WB C Auto (Bld)Ordered By: [place] on 12-11-2024 Immature granulocytes/100 WBC (Bld) 0.400 % 0.0-0.9 [facility] Comment on above: IG% - Immature Granu locytes (promyelocytes, myelocytes and metamyelocytes) > 1% indicates that a LEFT SHIFT is Present. Ketones Test strip Ql (U)Ord ered By: [place] on 12-11-2024 Ketones Ql (U) Negative Negative [facility] - Chemistry and C hemistry - challengeOrdered By: [place] on 12-11-2024 AST [Catalytic activity/Vol] 17 U/L <32 [facility] Lipaseon 12-11-2024 Lipase [Catalytic activity/Vol] 22 U/L Normal 13-75 [facility] Comment on above: Result Comment: Raj redman note: LIPASE revised reference range effective 22. New Lipase methodology. Expected to produce lower values than the previous assay method. NEW Reference Range: 13 - 75 U/L Performed By: #### L 501.4100, L501.0900, L501.1105, L100.0500, L501.1400, L501.4405 #### [facility] [address] [place], [address] Lipase measurementOrdered By : [place] on 12-11-2024 Lipase [Catalytic activity/Vol] 22 U/L 13-75 [facility] Comment on above: Please note:LIPASE r evised reference range effective 22. New Lipase methodology. Expected to produce lower values than the previous assay method. NEW Reference Range: 13 - 75 U/L MCV (mean corpuscular volume ) determinationOrdered By: [place] on 12-11-2024 MCV (RBC) [Entitic vol] 85.7 fL 81-99 [facility] Mean corpuscular hemoglobin (MCH) determinationOrdered By: [place] on 12-11-2024 MCH (RBC) [Entitic mass] 27.6 pg 27.0-32.0 [facility] Mean corpuscular hemoglobin concentration (MCHC) determinationOrdered By: [place] on 12-11-2024 MCHC (RBC) [Mass/Vol] 32.3 g/dL 32-36 [facility] Mean platelet volume determi nationOrdered By: [place] on 12-11-2024 Platelet mean volume (Bld) [Entitic vol] 12.0 fL 6.2-12.0 [facility] Microscopic analysis of urin e for red blood cells (RBC)Ordered By: [place] on 12-11-2024 Microscopic analysis of urine for red blood cells (RBC) 0-5 SEEN /hpf 0-5 [facility] Monocyte percentageOrdered B y: [place] on 12-11-2024 Monocytes/100 WBC (Bld) 4.6 % 0-10 [facility] Mucus LM Ql (Urine sed)Order ed By: [place] on 12-11-2024 Mucus Ql (Urine sed) 0 SEEN /hpf [facility] Neutrophil percentageOrdered By: [place] on 12-11-2024 Neutrophils/100 WBC (Bld) 69.3 % 47-70 [facility] Nitrite Test strip Ql (U)Ord ered By: [place] on 12-11-2024 Nitrite Ql (U) Negative Negative [facility] Nucleated red blood cell per centageOrdered By: [place] on 12-11-2024 Nucleated RBC/100 WBC (Bld) [Ratio] 0 % 0-5 [facility] Platelet countOrdered By: Bhavik Mirza on 12-11-2024 Platelets (Bld) [#/Vol] 176 10*3/uL 150-450 [facility] Potassium measurement (mass/ volume)Ordered By: [place] on 12-11-2024 Potassium (Unsp spec) [Mass/Vol] 3.5 mmol/L 3.3-5.1 [facility] Protein Test strip Ql (U)Ord ered By: [place] on 12-11-2024 Protein Ql (U) 15 mg/dl High Negative [facility] RBC Auto (Bld) [#/Vol]Ordere d By: [place] on 12-11-2024 RBC (Bld) [#/Vol] 3.98 10*6/uL Low 4.2-5.4 [facility] Serum creatinine measurement (mass/volume)Ordered By: [place] on 12-11-2024 Creatinine [Mass/Vol] 0.53 mg/dL Low 0.70-1.20 [facility] Serum globulin measurementOr dered By: [place] on 12-11-2024 Globulin (S) [Mass/Vol] 2.9 g/dL 2.2-4.2 [facility] Serum glucose measurement (m ass/volume)Ordered By: [place] on 12-11-2024 Glucose [Mass/Vol] 125 mg/dL High 70-99 [facility] Serum or plasma alanine rivero otransferase (ALT) measurementOrdered By: [place] on 12-11-2024 ALT [Catalytic activity/Vol] 16 U/L <35 [facility] Serum or plasma albumin roopa urement (mass/volume)Ordered By: [place] on 12-11-2024 Albumin [Mass/Vol] 3.3 g/dL Low 3.5-5.0 [facility] Serum or plasma albumin/glob ulin mass ratioOrdered By: [place] on 12-11-2024 Albumin/Globulin [Mass ratio] 1.1 {ratio} 0.9-2.4 [facility] Serum or plasma alkaline robert sphatase measurementOrdered By: [place] on 12-11-2024 ALP [Catalytic activity/Vol] 85 U/L 35-104 [facility] Serum or plasma calcium roopa urement (mass/volume)Ordered By: [place] on 12-11-2024 Calcium [Mass/Vol] 8.5 mg/dL 7.6-11.0 [facility] Serum or plasma urea nitroge n measurement (mass/volume)Ordered By: [place] on 12-11-2024 Urea nitrogen [Mass/Vol] 6 mg/dL 4-19 [facility] Sodium levelOrdered By: [place] on 12-11-2024 Sodium [Moles/Vol] 137 mmol/L 133-145 [facility] Squamous epithelial cells de tection in urine sediment by light microscopyOrdered By: [place] on 12-11-2024 Epithelial cells.squamous LM Ql (Urine sed) 0-5 SEEN /hpf 5-10 [facility] Total proteinOrdered By: Danny Mirza on 12-11-2024 Protein [Mass/Vol] 6.2 g/dL 5.9-8.4 [facility] Urinalysis, Completeon 12-11 BACTERIA 2+ /hpf Normal None Seen [facility] Comment on above: Order Comment: CLEAN CATCH Performed By: #### L 501.4100, L501.0900, L501.1105, L100.0500, L501.1400, L501.4405 #### [facility] [address] [place], [address] EPI,SQUAMOUS 0-5 SEEN Normal -10 [facility] Comment on above: Order Comment: CLEAN CATCH Performed By: #### L 501.4100, L501.0900, L501.1105, L100.0500, L501.1400, L501.4405 #### [facility] [address] [place], [address] RBC 0-5 SEEN Normal 0-5 [facility] Comment on above: Order Comment: CLEAN CATCH Performed By: #### L 501.4100, L501.0900, L501.1105, L100.0500, L501.1400, L501.4405 #### [facility] [address] [place], [address] WBC 10-25 SEEN Normal 0-5 [facility] Comment on above: Order Comment: CLEAN CATCH Performed By: #### L 501.4100, L501.0900, L501.1105, L100.0500, L501.1400, L501.4405 #### [facility] [address] [place], [address] Mucus Ql (Urine sed) 0 SEEN Normal [facility] Comment on above: Order Comment: CLEAN CATCH Performed By: #### L 501.4100, L501.0900, L501.1105, L100.0500, L501.1400, L501.4405 #### [facility] [place], [address] Urine clarityOrdered By: Danny Mirza on 12-11-2024 Clarity (U) Cloudy Clear [facility] Urine color determinationOrd ered By: [place] on 12-11-2024 Color (U) Straw Yellow [facility] Urine glucose detectionOrder ed By: [place] on 12-11-2024 Glucose Ql (U) Normal mg/dl Normal [facility] Urine leukocyte esterase det ection by dipstickOrdered By: [place] on 12-11-2024 Leukocyte esterase Test strip Ql (U) 500 /ul High Negative [facility] Urine pHOrdered By: [place] on 12-11-2024 pH (U) 6.0 [pH] 5.0 - 8.0 [facility] Urine sediment bacteria coun t by microscopy (number/high power field)Ordered By: [place] on 12-11-2024 Bacteria LM.HPF (Urine sed) [#/Area] 2 /[HPF] None Seen [facility] Urine specific gravity measu rementOrdered By: [place] on 12-11-2024 Specific gravity (U) [Rel density] 1.025 1.002-1.030 [facility] Urine urobilinogen measureme ntOrdered By: [place] on 12-11-2024 Urobilinogen Ql (U) Normal mg/dl Normal [facility] White blood cell (WBC) count Ordered By: [place] on 12-11-2024 WBC (Bld) [#/Vol] 7.5 10*3/uL 4.4-11.0 [facility] White blood cell countOrdere d By: [place] on 12-11-2024 White blood cell count 10-25 SEEN /hpf 0-5 [facility] CNPNon 11-19-2024 CNPN Telephone ([employer]) NATALYASHILPA ([id number]) 1995 F Date Time Provider Department 11/19/24 [...] tablet by mouth once daily. - PNV no.837-qlmd-flubhboxzlp e 29-1 mg tab Take 1 tablet [...] Status:Closed by JUSTIN VALENTINO on 11/19/24 Normal [facility] [id number] PLUSon 11-19-2024 Cell-free DNA./Cell-free DNA.total Dosage of chromosome-specific cfDNA (cfDNA) [Molar fraction] 16% Normal [facility] Comment on above: Order Comment: Speci men Type: BLOOD SPECIMENOrdering Facility: [facility] Address: [address] [place] [address] Performed By: #### M AT21 ####[employer] LABCLIA [id number] [place] [address] Chr 13+18+21+X+Y aneuploidy Dosage of chromosome-specific cfDNA Ql (cfDNA) Negative Normal [facility] Comment on above: Order Comment: Speci men Type: BLOOD SPECIMENOrdering Facility: [facility] Address: [address] [place] [address] Performed By: #### M AT21 ####[facility] LABCLIA [id number] [place] [address] Chr 21 trisomy Dosage of chromosome-specific cfDNA Ql (cfDNA) Negative Normal [facility] Comment on above: Order Comment: Speci men Type: BLOOD SPECIMENOrdering Facility: [facility] Address: [address] [place] [address] Performed By: #### M AT21 ####[facility] LABCLIA [id number] [place] [address] Chr X and Y aneuploidy risk Sequencing Ql (cfDNA) [Interp] Not detected Normal [facility] Comment on above: Order Comment: Speci men Type: BLOOD SPECIMENOrdering Facility: [facility] Address: [address] [place] [address] Result Comment: Not Detected Not Detected Performed By: #### M AT21 ####[facility] LABCLIA [id number] [place] [address] Citation Jose (Reference lab test) Comment Normal [facility] Comment on above: Order Comment: Speci men Type: BLOOD SPECIMENOrdering Facility: [facility] Address: [address] [place] [address] Result Comment: 1. P sonali HAYS, et al. Jahaira Med. 2012;14(3):296-305. 2. Latha WADE et al. Prenat Diag. 2013;33(6):591-597. 3. Bryn C, et al. Clin Chem. 2015 Apr;61(4):608-616. 4. Paul HAYS et al. Jahaira Med. 2011;13(11):913-920. 5. ACOG/SMFM Practice Bulletin No. 226, Mar 2020. Performed By: #### M AT21 ####[facility] LABCLIA [id number] [place] [address] Gestational age Estimated from conception date Marquez Normal [facility] Comment on above: Order Comment: Speci men Type: BLOOD SPECIMENOrdering Facility: [facility] Address: [address] [place] [address] Performed By: #### M AT21 ####[facility] LABCLIA [id number] [place] [address] GESTATIONALAGE AGE > OR = 9W Yes Normal [facility] Comment on above: Order Comment: Speci men Type: BLOOD SPECIMENOrdering Facility: [facility] Address: [address] [place] [address] Performed By: #### M AT21 ####[facility] LABCLIA [id number] [place] [id number] Laboratory comment Jose (Report) Comment Normal [facility] Comment on above: Order Comment: Costa bergeron Type: BLOOD SPECIMENOrdering Facility: [facility] Address: [address] [place] [address] Result Comment: The MaterniT(R) 21 PLUS laboratory-developed test (LDT) analyzes circulating cell-free DNA from a maternal blood sample. This test is used for screening purposes and not diagnostic. Clinical correlation is recommended. Validation data on twin pregnancies is limited and the ability of this test to detect aneuploidy in higher multiple gestations has not yet been validated. Performed By: #### M AT21 ####[employer] WindIA [id number] [place] [address] television newscast director name Nom (Provider) Comment Normal [facility] Comment on above: Order Comment: Costa bergeron Type: BLOOD SPECIMENOrdering Facility: [facility] Address: [address] [place] [address] Result Comment: This specimen showed an expected representation of chromosome 21, 18 and 13 material. Clinical correlation is suggested. Comment Torito Butler MD, PhD, Director, [employer] Performed By: #### M AT21 ####[employer] [id number] [place] [address] LIMITATIONS OF THE TEST Comment Normal [facility] Comment on above: Order Comment: Costa bergeron Type: BLOOD SPECIMENOrdering Facility: [facility] Address: [address] [place] [address] Result Comment: Kayli talbot the results of [...] and Fragmin(R)). Performed By: #### M AT21 ####nooked LABAlfrescoIA [id number] [place] [address] Monosomy X risk Dosage of chromosome-specific cfDNA Ql (Plasma cell-free+WBC DNA) [Interp] Not detected Normal [facility] Comment on above: Order Comment: Speci men Type: BLOOD SPECIMENOrdering Facility: [facility] Address: [address] [place] [address] Performed By: #### M AT21 ####[employer] LABCLIA [id number] [place] [address] NEGATIVE PREDICTIVE VALUE Note Normal [facility] Comment on above: Order Comment: Speci men Type: BLOOD SPECIMENOrdering Facility: [facility] Address: [address] [place] [address] Result Comment: The Negative Predictive Value (NPV) for trisomy 21, 18, and 13 is greater than 99%. The NPV for SCA and ESS cannot be calculated as SCA and ESS are only reported when an abnormality is detected. Performed By: #### M AT21 ####[facility] LABIA [id number] [place] [address] PERFORMANCE CHARACTERISTICS Note Normal [facility] Comment on above: Order Comment: Costa bergeron Type: BLOOD SPECIMENOrdering Facility: [facility] Address: [address] [place] [address] Result Comment: ! Sex ! Accuracy: 99.4% [...] ! ! ! * As reported in [facility] database nstd37 [https://www.ncbi.nlm.nih.gov/dbvar/studies/nstd37/ ] # Estimated Sensitivity. Sensitivity estimated across the observed size distribution of each syndrome [per [facility] database nstd37] and across the range of fractions observed in routine clinical NIPT. Actual sensitivity can also be influenced by other factors such as the size of the event, total sequence counts, amplification bias, or sequence bias. ## Marquez gestation only. Performed By: #### M AT21 ####[employer] [id number] [place] [address] POSITIVE PREDICTIVE VALUE N/A Normal [facility] Comment on above: Order Comment: Costa bergeron Type: BLOOD SPECIMENOrdering Facility: [facility] Address: [address] [place] [address] Performed By: #### M AT21 ####[employer] LABCLIA [id number] [place] [address] Reference Lab Test Method Comment Normal [facility] Comment on above: Order Comment: Costa bergeron Type: BLOOD SPECIMENOrdering Facility: [facility] Address: [address] [place] [address] Result Comment: See Notes Circulating cell-free DNA [...] and 22. Performed By: #### M AT21 ####[employer] LABCLIA [id number] [place] [address] Service comment (Unsp spec) [Interp] Comment Normal [facility] Comment on above: Order Comment: Speci men Type: BLOOD SPECIMENOrdering Facility: [facility] Address: [address] [place] [address] Result Comment: See Notes [employer] is a subsidiary of [employer], using the brand [employer]. This test was developed and its performance characteristics determined by [employer]. It has not been cleared or approved by the Food and Drug Administration. This laboratory is certified under the Clinical Laboratory Improvement Amendments (CLIA) as qualified to perform high complexity clinical laboratory testing and accredited by the [employer] ([employer]). If there is future clinical need for adding MaterniT GENOME testing, this specimen will be available until term. [facility] samples will not be retained beyond 60 days. [facility] patients will have to send a new sample for re-sequencing ([facility] Test Code: [id number]). Performed By: #### M AT21 ####[employer] LABCLIA [id number] [place] [address] Sex Dosage of chromosome-specific cfDNA Nom (cfDNA) Comment Normal [facility] Comment on above: Order Comment: Speci men Type: BLOOD SPECIMENOrdering Facility: [facility] Address: [address] [place] [address] Result Comment: Cons istent with Female Performed By: #### M AT21 ####[facility] LABCLIA [id number] [place] [address] Test performance information Jose (Unsp spec) Comment Normal [facility] Comment on above: Order Comment: Speci men Type: BLOOD SPECIMENOrdering Facility: [facility] Address: [address] [place] [address] Result Comment: The performance characteristics of the MaterniT(R) 21 PLUS laboratory-developed test (LDT) have been determined in a clinical validation study with women at increased risk for chromosomal aneuploidy.[1-4] Performed By: #### M AT21 ####[facility] LABCLIA [id number] [place] [address] Trisomy 13 risk Dosage of chromosome-specific cfDNA Ql (cfDNA) [Interp] Negative Normal [facility] Comment on above: Order Comment: Speci men Type: BLOOD SPECIMENOrdering Facility: [facility] Address: [address] [place] [address] Performed By: #### M AT21 ####[employer] LABCLIA [id number] [place] [address] Trisomy 18 risk Dosage of chromosome-specific cfDNA Ql (Plasma cell-free+WBC DNA) [Interp] Negative Normal [facility] Comment on above: Order Comment: Speci men Type: BLOOD SPECIMENOrdering Facility: [facility] Address: [address] [place] [address] Performed By: #### M AT21 ####[employer] LABCLIA [id number] [place] [address] C. trachomatis+N. gonorrhoea e DNA OFELIA+probe Ql (Unsp spec)on 11-18-2024 C. trachomatis rRNA OFELIA+probe Ql (Unsp spec) Not detected Normal Not detected [facility] Comment on above: Order Comment: Speci men Type: SWABOrdering Facility: [facility] Address: [address] [place] [address] Performed By: #### 3 6902-5 ####[facility] LABCLIA [id number] [address] OF [place] N. gonorrhoeae rRNA OFELIA+probe Ql (Unsp spec) Not detected Normal Not detected [facility] Comment on above: Order Comment: Speci men Type: SWABOrdering Facility: [facility] Address: [address] [place], [place] [address] Performed By: #### 3 6902-5 ####[facility] LABCLIA [id number] [facility] [id number] [place] [address] [place] POC AUDIOLOGY ASSISTANT ULTRASOUNDon 11-19-19 25 Indication Viability; confirm cardiac [...] Johana Turner CNM MATERNAL MEDICINE [facility] Radiology Study observation (narrative) [facility] CBC panel Auto (Bld)on 11-11 Erythrocyte distribution width (RBC) [Ratio] 15.1 % High 11.5-15.0 [facility] Comment on above: Order Comment: Speci men Type: BLOOD SPECIMEN [facility] Address: [address] [place], [place] [address] [address] Performed By: #### 5 8410-2 #### [facility] CLIA [id number] [address] [place] [address] [place] Hematocrit (Bld) [Volume fraction] 34.1 % Low 36.0-46.0 [facility] Comment on above: Order Comment: Speci men Type: BLOOD SPECIMEN [facility] Address: [address] [place] [address] Performed By: #### 5 8410-2 #### [facility] CLIA [id number] [address] [place] [address] [place] Hemoglobin (Bld) [Mass/Vol] 11.0 g/dL Low 11.5-15.5 [facility] Comment on above: Order Comment: Speci men Type: BLOOD SPECIMEN [facility] Address: [address] [place] [address] Performed By: #### 5 8410-2 #### [facility] [id number] [address] [place] [address] [place] MCH (RBC) [Entitic mass] 26.8 pg Normal 26.0-34.0 [facility] Comment on above: Order Comment: Speci men Type: BLOOD SPECIMEN [facility] Address: [address] [place] [address] Performed By: #### 5 8410-2 #### [facility] [id number] [address] [place] [address] [place] MCHC (RBC) [Mass/Vol] 32.3 g/dL Normal 30.5-36.0 [facility] Comment on above: Order Comment: Speci men Type: BLOOD SPECIMEN [facility] Address: [address] [place] [address] Performed By: #### 5 8410-2 #### [facility] [id number] [address] [place] [address] [place] MCV (RBC) [Entitic vol] 83.2 fL Normal 80.0-100.0 [facility] Comment on above: Order Comment: Speci men Type: BLOOD SPECIMEN [facility] Address: [address] [place] [address] Performed By: #### 5 8410-2 #### [facility] CLIA [id number] [address] [place] [address] [place] Nucleated RBC (Bld) [#/Vol] 10*3/uL Normal <0.01 [facility] Comment on above: Order Comment: Speci men Type: BLOOD SPECIMEN [facility] Address: [address] [place] [address] Performed By: #### 5 8410-2 #### [facility] CLIA [id number] [address] [place] [address] [place] Platelet mean volume (Bld) [Entitic vol] 10.9 fL Normal 9.0-12.7 [facility] Comment on above: Order Comment: Speci men Type: BLOOD SPECIMEN [facility] Address: [address] [place] [address] Performed By: #### 5 8410-2 #### [facility] CLIA [id number] [address] [place] [address] [place] Platelets (Bld) [#/Vol] 197 10*3/uL Normal 150-400 [facility] Comment on above: Order Comment: Speci men Type: BLOOD SPECIMEN [facility] Address: [address] [place] [address] Performed By: #### 5 8410-2 #### [facility] CLIA [id number] [address] [place] [address] [place] RBC (Bld) [#/Vol] 4.10 10*6/uL Normal 3.90-5.20 [facility] Comment on above: Order Comment: Speci men Type: BLOOD SPECIMEN [facility] Address: [address] [place] [address] Performed By: #### 5 8410-2 #### [facility] CLIA [id number] [address] [place] [address] [place] WBC (Bld) [#/Vol] 6.72 10*3/uL Normal 3.70-11.00 [facility] Comment on above: Order Comment: Speci men Type: BLOOD SPECIMEN [facility] Address: [address] [place] [address] Performed By: #### 5 8410-2 #### [facility] [id number] [address] [place] [address] [place] HBV surface Ag Ser Qlon 10-22 HBV surface Ag Ql (S) Negative Normal Negative [facility] Comment on above: Order Comment: Speci men Type: BLOOD SPECIMENOrdering Facility: [facility] Address: [address] [place] [address] Performed By: #### 5 195-3, 70130-0, 47546-1 ####[facility] LABCLIA [id number] [place] [address] [place] HCV Ab Ser Qlon 11-11-2024 HCV Ab Ql (S) Negative Normal Negative [facility] Comment on above: Order Comment: Speci men Type: BLOOD SPECIMENOrdering Facility: [facility] Address: [address] [place] [address] Result Comment: The result suggests no evidence of infection with Hepatitis C virus. Should recent infection be suspected, repeat testing may be considered 4-6 weeks after this draw. Performed By: #### 1 6128-1 ####[facility] LABCLIA [id number] [place] [address] [place] HIV 1+2 Ab IA Qlon HIV 1 and 2 Ab IA.rapid Nom (S/P/Bld) Normal [facility] Comment on above: Order Comment: Speci men Type: BLOOD SPECIMENOrdering Facility: [facility] Address: [address] [place] [address] Result Comment: Test not indicated. Performed By: #### 5 195-3, 28320-2, 88744-0 ####[facility] LABIA [id number] [place] [id number] [place] HIV 1+2 Ab+HIV1 p24 Ag IA Ql Non-Reactive Normal Nonreactive [facility] Comment on above: Order Comment: Speci men Type: BLOOD SPECIMENOrdering Facility: [facility] Address: [address] [place] [address] Performed By: #### 5 195-3, 12364-5, 16241-9 ####[facility] [id number] [place] [address] [place] HIV immunoassay testing algorithm interpretation (S/P/Bld) [Interp] Normal [facility] Comment on above: Order Comment: Speci men Type: BLOOD SPECIMENOrdering Facility: [facility] Address: [address] [place] [address] Result Comment: No e vidence of HIV-1 or HIV-2 infection. Should recent infection be suspected, repeat testing may be considered 2-3 weeks after this draw. [place] Rev. Code 3701.243(E): This information has been [...] or diagnoses. Performed By: #### 5 195-3, 01913-6, 07399-6 ####[facility] [id number] [address] [address] [place] HbA1c (Bld)on 11-11-2024 Average glucose Estimated from glycated hemoglobin (Bld) [Mass/Vol] 88 mg/dL Normal [facility] Comment on above: Order Comment: Speci men Type: BLOOD SPECIMENOrdering Facility: [facility] Address: [address], [place] [address] Result Comment: eAG: (Estimated average glucose) is a calculated value from HgbA1c and is passenger service representative of the average blood glucose level in the last 2-3 month period. Performed By: #### 5 5454-3 ####[facility] LABIA [id number] [place] [address] [place] HbA1c (Bld) [Mass fraction] 4.7 % Normal 4.3-5.6 [facility] Comment on above: Order Comment: Speci men Type: BLOOD SPECIMENOrdering Facility: [facility] Address: [address] [place] [address] Result Comment: [place] Diabetes Association guidelines indicate that patients with HgbA1c in the range 5.7-6.4% are at increased risk for development of diabetes, and intervention by lifestyle modification may be beneficial. HgbA1c greater or equal to 6.5% is considered diagnostic of diabetes. Performed By: #### 5 5454-3 ####[facility] LABIA [id number] [address] [place] RUBELLA IGG ANTIBODYon 11-11 RUBELLA IGG AB, QUAL Positive Normal Positive [facility] Comment on above: Order Comment: Costa bergeron Type: BLOOD SPECIMENOrdering Facility: [facility] Address: [address] [place] [address] Result Comment: The result suggests recent or past exposure to Rubella virus or history of Rubella vaccination. Positive result may also be seen due to presence of passively-transferred antibodies. Please correlate with patient's history. Performed By: #### R UBIGG ####[facility] LABIA [id number] [place] [address] [place] Reagin and Treponema pallidu m IgG and IgM [Interp]on 11-11-2024 T. pallidum IgG+IgM IA Ql (S) Non-Reactive Normal Nonreactive [facility] Comment on above: Order Comment: Costa [facility] Type: BLOOD SPECIMENOrdering Facility: [facility] Address: [address] [place] [address] Performed By: #### 5 195-3, 02819-7, 03858-3 ####[facility] LABCLIA [id number] [place] [address] [place] Reagin+T pallidum IgG+IgM Se rPl-Impon 11-11-2024 Reagin and Treponema pallidum IgG and IgM [Interp] Cannot exclude recent Treponemal infection if specimen collected within 7-10 days after appearance of suspect lesions or 2-3 weeks after an exposure. Clinical correlation is required. Normal [facility] Comment on above: Order Comment: Speci men Type: BLOOD SPECIMENOrdering Facility: [facility] Address: [address] [place] [address] Performed By: #### 5 195-3, 17871-6, 73024-3 ####[facility] LABIA [id number] [place] [address] [place] TYPE + SCREEN PRENATALon ABO A Normal [facility] Comment on above: Order Comment: Speci men Type: BLOOD SPECIMENOrdering Facility: [facility] Address: [address] [place] [address] Performed By: #### T SPN ####[facility] BLOOD BANKIA [id number] [place] [address] [place] Rh Nom (Bld) Positive Normal [facility] Comment on above: Order Comment: Speci men Type: BLOOD SPECIMENOrdering Facility: [facility] Address: [address] [place] [address] Performed By: #### T SPN ####[facility] BLOOD BANKIA [id number] [place] [address] [place] TYPE AND SCREEN EXPIRATION 11/14/2024 23:59 Normal [facility] Comment on above: Order Comment: Speci men Type: BLOOD SPECIMENOrdering Facility: [facility] Address: [address] [place] [address] Performed By: #### T SPN ####[facility] BLOOD BANKIA [id number] [address] [address] [place] Transvaginal w/Preg USon Transvaginal w/Preg US [facility] [address] [place] [address] Transvaginal w/Preg US MR#: [id number] Acct: [id number] Name: SHILPA HOANG Rep #: [id number] : 1995 F 28 From: Keyon Tapia MD PCP: Dr. David Mckinney MD Status: REG CLI Study: Transvaginal w/Preg US Date of Exam: 10/21/24 Exam# [id number] Ordering Dr: Rizwan Cárdenas DO PROCEDURE: TRANSVAGINAL [...] weeks 1 day, JANE 05/25/2025. Reading Location: [id number] CC: Dr. David Mckinney MD; Rizwan Cárdenas DO Banquet Manager: Signed Normal [facility] Urine Cultureon 10-14-2024 URC Below infection leve l. Mixed Gram Positive Organisms [place] Count 1000-10,000 MIXC Mixed contaminants. Submit a new specimen if indicated. Normal [facility] Comment on above: Performed By: #### L 501.4100, L501.0900, L501.1105, L100.0500, L501.1400, L501.4405 #### [facility] [address] [place], [address] [facility] CNPN Telephone (OBGYWM) SHILPA HOANG ([id number]) 1995 F Date Time Provider Department 10/13/24 SARAH HUBER OBGYWM During your visit today, we recorded the following information about you: Tyler EmilyMARYAM 10/13/2024 4:39 PM Signed Lmp: 08/18/24 and was seen at health system for cramping yesterday and was told she was . Patient dx w/ UTI and given amoxicillin and zofran [place]. [place] [address] and ED doctor told her she was 10 to 12 weeks. Denies vaginal bleeding, no fever. Patient has new ob appointment 10/25/24. Patient asking if she needs seen sooner for ED f/u. Sarah Huber MD 10/13/2024 5:36 PM Signed No- 5/5 is fine. Margarita Haern RN 10/14/2024 8:27 AM Signed Left message for patient to call office. CHANA Gonzalez Trisha, RN 10/14/2024 8:33 AM Signed Patient notified. Anca Broussard RN Allergies As of Date: 10/13/2024 Noted Allergy Reaction WALNUT 11/10/2023 10 - Anaphylaxis CORN 11/10/2023 5 - Intolerance SEASONAL ALLERGIES 11/10/2023 3 - Cough Date Reviewed: 09/16/2024 Reviewed by: Hortencia Gould, ADONIS.COSTUME SHOP COORDINATOR - Fully Assessed Reason for Visit: Patient [...] Status:Closed by ANCA BROUSSARD on 10/14/24 Normal [facility] Absolute lymphocyte countOrd ered By: Rizwan Cárdenas on 10-12-2024 Lymphocytes Auto (Unsp spec) [#/Vol] 2.83 10*3/uL 0.83-4.51 [facility] Absolute neutrophil countOrd ered By: Rizwan Cárdenas on 10-12-2024 Neutrophils (Bld) [#/Vol] 4.0 10*3/uL 2.0-7.7 [facility] Amorphous sediment detection in urine sediment by light microscopyOrdered By: Rizwan Cárdenas on 10-12-2024 Amorphous sediment LM Ql (Urine sed) 2+ [facility] Anion gap in Serum or Plasma Ordered By: Rizwan Cárdenas on 10-12-2024 Anion gap [Moles/Vol] 11 mmol/L 5-15 [facility] Automated lymphocyte count a s percentage of total leukocytesOrdered By: Rizwan Cárdenas on 10-12-2024 Lymphocytes/100 WBC Auto (Unsp spec) 35.3 % 19-41 [facility] [id number] 10-12-2024 ABO and Rh group Nom (Bld) Blood group A Rh(D) positive Normal [facility] Comment on above: Performed By: #### L 501.4100, L501.0900, L501.1105, L100.0500, L501.1400, L501.4405 #### [facility] [address] [place], [place], [id number] BUN/creatinine ratioOrdered By: Rizwan Cárdenas on 10-12-2024 Urea nitrogen/Creatinine [Mass ratio] 17.4 mg/mg - [facility] Basic Metabolic Profile (BMP )on 10-12-2024 BUN/CRE 17.4 RATIO Normal 04-11 [facility] Comment on above: Performed By: #### L 100.0100, L500.2500, B882-1, L501.2450, L500.3400, L700.8000 #### [facility] [address] [place], [address] Calcium [Mass/Vol] 9.2 mg/dL Normal 7.6-11.0 [facility] Comment on above: Performed By: #### L 100.0100, L500.2500, B882-1, L501.2450, L500.3400, L700.8000 #### [facility] [address] [place], [address] Chloride [Moles/Vol] 104 mmol/L Normal 98-108 [facility] Comment on above: Performed By: #### L 100.0100, L500.2500, B882-1, L501.2450, L500.3400, L700.8000 #### [facility] [address] [place], [address] CO2 [Moles/Vol] 22.3 mmol/L Normal 21.0-32.0 [facility] Comment on above: Performed By: #### L 100.0100, L500.2500, B882-1, L501.2450, L500.3400, L700.8000 #### [facility] [address] [place], [address] Creatinine [Mass/Vol] 0.87 mg/dL Normal 0.70-1.20 [facility] Comment on above: Performed By: #### L 100.0100, L500.2500, B882-1, L501.2450, L500.3400, L700.8000 #### [facility] [address] [place], [address] ECRCL 97.15 ml/min Normal 50-250 [facility] Comment on above: Performed By: #### L 100.0100, L500.2500, B882-1, L501.2450, L500.3400, L700.8000 #### [facility] [address] [place], [address] GAP 11 Normal 5-15 [facility] Comment on above: Performed By: #### L 100.0100, L500.2500, B882-1, L501.2450, L500.3400, L700.8000 #### [facility] [address] [place], [address] GFR/1.73 sq M.predicted among non-blacks MDRD (S/P/Bld) [Vol rate/Area] 94 mL/min/{1.73_m2} Normal >60 [facility] Comment on above: Result Comment: mL/m in/1.73m2 CKD-EPI Creatinine Equation (2020) Performed By: #### L 100.0100, L500.2500, B882-1, L501.2450, L500.3400, L700.8000 #### [facility] [address] [place], [address] Glucose [Mass/Vol] 100 mg/dL High 70-99 [facility] Comment on above: Performed By: #### L 100.0100, L500.2500, B882-1, L501.2450, L500.3400, L700.8000 #### [facility] [address] [place], [address] Potassium [Moles/Vol] 4.0 mmol/L Normal 3.3-5.1 [facility] Comment on above: Performed By: #### L 100.0100, L500.2500, B882-1, L501.2450, L500.3400, L700.8000 #### [facility] [address] [place], [address] Sodium [Moles/Vol] 137 mmol/L Normal 133-145 [facility] Comment on above: Performed By: #### L 100.0100, L500.2500, B882-1, L501.2450, L500.3400, L700.8000 #### [facility] [address] [place], [address] Urea nitrogen [Mass/Vol] 15 mg/dL Normal 4-19 [facility] Comment on above: Performed By: #### L 100.0100, L500.2500, B882-1, L501.2450, L500.3400, L700.8000 #### [facility] [address] [place], [address] Basophil percentageOrdered B y: Rizwan Cárdenas on 10-12-2024 Basophils/100 WBC (Bld) 0.5 % 0-1 [facility] Bilirubin Test strip Ql (U)O rdered By: Rizwan Cárdenas on 10-12-2024 Bilirubin Ql (U) Negative Negative [facility] Bilirubin directOrdered By: Rizwan Cárdenas on 10-12-2024 Bilirubin.direct [Mass/Vol] 0.11 mg/dL 0.00-0.30 [facility] Bilirubin, totalOrdered By: Rizwan Cárdenas on 10-12-2024 Bilirubin [Mass/Vol] 0.25 mg/dL 0.00-1.30 [facility] CBC W/Diff, Automatedon 09-22 Absolute Lymph 2.83 X10 3/uL Normal 0.83-4.51 [facility] Comment on above: Performed By: #### L 100.0100, L500.2500, B882-1, L501.2450, L500.3400, L700.8000 #### [facility] [address] [place], [address] Absolute Neut 4.0 X10 3/uL Normal 2.0-7.7 [facility] Comment on above: Performed By: #### L 100.0100, L500.2500, B882-1, L501.2450, L500.3400, L700.8000 #### [facility] [address] [place], [address] Basophils/100 WBC (Bld) 0.5 % Normal 0-1 [facility] Comment on above: Performed By: #### L 100.0100, L500.2500, B882-1, L501.2450, L500.3400, L700.8000 #### [facility] [address] [place], [address] Eosinophils/100 WBC (Bld) 6.5 % High 0-5 [facility] Comment on above: Performed By: #### L 100.0100, L500.2500, B882-1, L501.2450, L500.3400, L700.8000 #### [facility] [address] [place], [address] Erythrocyte distribution width (RBC) [Ratio] 14.3 % Normal 11.6-14.6 [facility] Comment on above: Performed By: #### L 100.0100, L500.2500, B882-1, L501.2450, L500.3400, L700.8000 #### [facility] [address] [place], [address] Hematocrit (Bld) [Volume fraction] 37.6 % Normal 37-47 [facility] Comment on above: Performed By: #### L 100.0100, L500.2500, B882-1, L501.2450, L500.3400, L700.8000 #### [facility] [address] [place], [address] Hemoglobin (Bld) [Mass/Vol] 12.2 g/dL Normal 12.0-15.0 [facility] Comment on above: Performed By: #### L 100.0100, L500.2500, B882-1, L501.2450, L500.3400, L700.8000 #### [facility] [address] [place], [address] IG% 0.200 Normal 0.0-0.9 [facility] Comment on above: Result Comment: IG% - Immature Granulocytes (promyelocytes, myelocytes and metamyelocytes) > 1% indicates that a LEFT SHIFT is Present. Performed By: #### L 100.0100, L500.2500, B882-1, L501.2450, L500.3400, L700.8000 #### [facility] [address] [place], [address] Lymphocytes/100 WBC (Bld) 35.3 % Normal 19-41 [facility] Comment on above: Performed By: #### L 100.0100, L500.2500, B882-1, L501.2450, L500.3400, L700.8000 #### [facility] [address] [place], [address] MCH (RBC) [Entitic mass] 26.1 pg Low 27.0-32.0 [facility] Comment on above: Performed By: #### L 100.0100, L500.2500, B882-1, L501.2450, L500.3400, L700.8000 #### [facility] [address] [place], [address] MCHC (RBC) [Mass/Vol] 32.4 g/dL Normal 32-36 [facility] Comment on above: Performed By: #### L 100.0100, L500.2500, B882-1, L501.2450, L500.3400, L700.8000 #### [facility] [address] [place], [address] MCV (RBC) [Entitic vol] 80.5 fL Low 81-99 [facility] Comment on above: Performed By: #### L 100.0100, L500.2500, B882-1, L501.2450, L500.3400, L700.8000 #### [facility] [address] [place], [address] Monocytes/100 WBC (Bld) 7.4 % Normal 0-10 [facility] Comment on above: Performed By: #### L 100.0100, L500.2500, B882-1, L501.2450, L500.3400, L700.8000 #### [facility] [address] [place], [address] Neutrophils/100 WBC (Bld) 50.1 % Normal 47-70 [facility] Comment on above: Performed By: #### L 100.0100, L500.2500, B882-1, L501.2450, L500.3400, L700.8000 #### [facility] [address] [place], [address] Nucleated RBC (Bld) [#/Vol] 0 10*3/uL Normal 0-5 [facility] Comment on above: Performed By: #### L 100.0100, L500.2500, B882-1, L501.2450, L500.3400, L700.8000 #### [facility] [address] [place], [address] Platelet mean volume (Bld) [Entitic vol] 11.3 fL Normal 6.2-12.0 [facility] Comment on above: Performed By: #### L 100.0100, L500.2500, B882-1, L501.2450, L500.3400, L700.8000 #### [facility] [address] [place], [address] Platelets (Bld) [#/Vol] 213 10*3/uL Normal 150-450 [facility] Comment on above: Performed By: #### L 100.0100, L500.2500, B882-1, L501.2450, L500.3400, L700.8000 #### [facility] [address] [place], [address] RBC (Bld) [#/Vol] 4.67 10*6/uL Normal 4.2-5.4 [facility] Comment on above: Performed By: #### L 100.0100, L500.2500, B882-1, L501.2450, L500.3400, L700.8000 #### [facility] [address] [place], [address] RDW SD 41.6 fl Normal 35.1-43.9 [facility] Comment on above: Performed By: #### L 100.0100, L500.2500, B882-1, L501.2450, L500.3400, L700.8000 #### [facility] [address] [place], [address] WBC (Bld) [#/Vol] 8.0 10*3/uL Normal 4.4-11.0 [facility] Comment on above: Performed By: #### L 100.0100, L500.2500, B882-1, L501.2450, L500.3400, L700.8000 #### [facility] [address] [place], [address] Carbon dioxide, total [Moles /volume] in Central venous bloodOrdered By: Rizwan Cárdenas on 10-12-2024 CO2 [Moles/Vol] 22.3 mmol/L 21.0-32.0 [facility] Chloride assayOrdered By: Chelsi Cárdenas on 10-12-2024 Chloride [Moles/Vol] 104 mmol/L 98-108 [facility] Emergency Department Summary on 10-12-2024 Emergency Department Summary [facility] Medical Records Department [address] [place] [address] Emergency Department Summary 10/12/24 MR#: [id number] Acct: [id number] Name: SHILPA HOANG Rep #: [id number] : 1995 28 From: Rizwan Cárdenas DO [...] secondary to this comes in for evaluation. [facility] Medical History (Updated 10/12/24 @ 02:[address] Rizwan Cárdenas DO) (spontaneous vaginal delivery) Depression Family history of hearing loss at age younger than 7 years Gestational HTN Stillborn, normal History of placental abruption Trauma depression Anxiety Cervical myofascial strain Home Medications ???Medication ???Instructions ???Recorded ???Last Taken ???Type jubncojt-tpa-Xh-FA 1 mg 1 tab PO DAILY 09/13/21 [...] CN's II-XI (more content not included)... Normal [facility] Eosinophil percentageOrdered By: Rizwan Cárdenas on 10-12-2024 Eosinophils/100 WBC (Bld) 6.5 % High 0-5 [facility] Epithelial cells.squamous LM Ql (Urine sed)Ordered By: Rizwan Cárdenas on 10-12-2024 Epithelial cells.squamous LM.HPF (Urine sed) [#/Area] 25 /[HPF] 5-10 [facility] Erythrocyte distribution wid th (RBC) [Ratio]Ordered By: Rizwan Cárdenas on 10-12-2024 Erythrocyte distribution width (RBC) [Entitic vol] 41.6 fL 35.1-43.9 [facility] Erythrocyte distribution wid th ratioOrdered By: Rizwan Cárdenas on 10-12-2024 Erythrocyte distribution width (RBC) [Ratio] 14.3 % 11.6-14.6 [facility] Erythrocyte distribution wid th standard deviationOrdered By: Rizwan Cárdenas on 10-12-2024 Erythrocyte distribution width (RBC) [Ratio] 41.6 fl 35.1-43.9 [facility] Estimation of creatinine morgan aranceOrdered By: Rizwan Cárdenas on 10-12-2024 Estimated Creatinine Clearance Calc 97.15 ml/min 50-250 [facility] GFR/1.73 sq M.predicted ankita g non-blacks MDRD (S/P/Bld) [Vol rate/Area]Ordered By: Rizwan Cárdenas on 10-12-2024 Estimated GFR (MDRD) Non-Af Amer 94 >60 [facility] Comment on above: mL/min/1.73m2 CKD-EP I Creatinine Equation (2020) Glomerular filtration rate ( GFR) estimation/1.73 sq m using serum, plasma, or whole bOrdered By: Rizwan Cárdenas on 10-12-2024 GFR/1.73 sq M.predicted among non-blacks MDRD (S/P/Bld) [Vol rate/Area] 94 mL/min/{1.73_m2} >60 [facility] Comment on above: mL/min/1.73m2 CKD-EP I Creatinine Equation (2020) Glucose Ql (U)Ordered By: Chelsi Cárdenas on 10-12-2024 Urine Glucose (UA) Normal mg/dl Normal [facility] HCG ( test) QlOrder ed By: Rizwan Cárdenas on 10-12-2024 Human Chorionic Gonadotropin, Quant 09522 mIU/mL High <9 [facility] Comment on above: Gestational Age0.2-1 Week: 5-50 mIU/mL1-2 Weeks: 50-500 mIU/mL2-3 Weeks: 100-5000 mIU/mL3-4 Weeks: 500-10,000 mIU/mL4-5 Weeks:1000-50,000 mIU/mL5-6 Weeks: 10,000-100,000 mIU/mL6-8 Weeks: 15,000-200,000 mIU/mL2-3 Months:10,000-100,000 mIU/mL Hematocrit Auto (Bld) [Volum e fraction]Ordered By: Rizwan Cárdenas on 10-12-2024 Hematocrit (Bld) [Volume fraction] 37.6 % 37-47 [facility] Hemoglobin measurementOrdere d By: Rizwan Cárdenas on 10-12-2024 Hemoglobin (Bld) [Mass/Vol] 12.2 g/dL 12.0-15.0 [facility] Immature granulocytes/100 WB C Auto (Bld)Ordered By: Rizwan Cárdenas on 10-12-2024 Immature granulocytes/100 WBC (Bld) 0.200 % 0.0-0.9 [facility] Comment on above: IG% - Immature Granu locytes (promyelocytes, myelocytes and metamyelocytes) > 1% indicates that a LEFT SHIFT is Present. Ketones Test strip Ql (U)Ord ered By: Rizwan Cárdenas on 10-12-2024 Ketones Ql (U) Negative Negative [facility] Laboratory - Chemistry and C hemistry - challengeOrdered By: Rizwan Cárdenas on 10-12-2024 AST [Catalytic activity/Vol] 14 U/L <32 [facility] Lipaseon 10-12-2024 Lipase [Catalytic activity/Vol] 26 U/L Normal 13-75 [facility] Comment on above: Result Comment: Raj redman note: LIPASE revised reference range effective 22. New Lipase methodology. Expected to produce lower values than the previous assay method. NEW Reference Range: 13 - 75 U/L Performed By: #### L 501.4100, L501.0900, L501.1105, L100.0500, L501.1400, L501.4405 #### [facility] [address] [place], [address] Lipase measurementOrdered By : Rizwan Cárdenas on 10-12-2024 Lipase [Catalytic activity/Vol] 26 U/L 13-75 [facility] Comment on above: Please note:LIPASE r evised reference range effective 22. New Lipase methodology. Expected to produce lower values than the previous assay method. NEW Reference Range: 13 - 75 U/L Liver Profileon 10-12-2024 Albumin [Mass/Vol] 4.3 g/dL Normal 3.5-5.0 [facility] Comment on above: Performed By: #### L 501.4100, L501.0900, L501.1105, L100.0500, L501.1400, L501.4405 #### [facility] [address] [place], [address] ALK PHOS 92 U/L Normal 35-104 [facility] Comment on above: Performed By: #### L 501.4100, L501.0900, L501.1105, L100.0500, L501.1400, L501.4405 #### [facility] [address] [place], [address] ALT [Catalytic activity/Vol] 14 U/L Normal <=34 [facility] Comment on above: Performed By: #### L 501.4100, L501.0900, L501.1105, L100.0500, L501.1400, L501.4405 #### [facility] [address] [place], [address] AST [Catalytic activity/Vol] 14 U/L Normal <=31 [facility] Comment on above: Performed By: #### L 501.4100, L501.0900, L501.1105, L100.0500, L501.1400, L501.4405 #### [facility] [address] [place], [address] Bilirubin [Mass/Vol] 0.25 mg/dL Normal 0.00-1.30 [facility] Comment on above: Performed By: #### L 501.4100, L501.0900, L501.1105, L100.0500, L501.1400, L501.4405 #### [facility] [address] [place], [address] Bilirubin.direct [Mass/Vol] 0.11 mg/dL Normal 0.00-0.30 [facility] Comment on above: Performed By: #### L 501.4100, L501.0900, L501.1105, L100.0500, L501.1400, L501.4405 #### [facility] [address] [place], [address] Globulin (S) [Mass/Vol] 3.1 g/dL Normal 2.2-4.2 [facility] Comment on above: Performed By: #### L 501.4100, L501.0900, L501.1105, L100.0500, L501.1400, L501.4405 #### [facility] [address] [place], [address] T PROT 7.4 g/dL Normal 5.9-8.4 [facility] Comment on above: Performed By: #### L 501.4100, L501.0900, L501.1105, L100.0500, L501.1400, L501.4405 #### [facility] [address] [place], [address] Lymphocytes Auto (Unsp spec) [#/Vol]Ordered By: Rizwan Cárdenas on 10-12-2024 Lymphocytes (Bld) [#/Vol] 2.83 10*3/uL 0.83-4.51 [facility] Lymphocytes/100 WBC Auto (Un sp spec)Ordered By: Rizwan Cárdenas on 10-12-2024 Lymphocytes/100 WBC (Bld) 35.3 % 19-41 [facility] MCV (mean corpuscular volume ) determinationOrdered By: Rizwan Cárdenas on 10-12-2024 MCV (RBC) [Entitic vol] 80.5 fL Low 81-99 [facility] Mean corpuscular hemoglobin (MCH) determinationOrdered By: Rizwan Cárdenas on 10-12-2024 MCH (RBC) [Entitic mass] 26.1 pg Low 27.0-32.0 [facility] Mean corpuscular hemoglobin concentration (MCHC) determinationOrdered By: Rizwan Cárdenas on 10-12-2024 MCHC (RBC) [Mass/Vol] 32.4 g/dL 32-36 [facility] Mean platelet volume determi nationOrdered By: Rizwan Cárdenas on 10-12-2024 Platelet mean volume (Bld) [Entitic vol] 11.3 fL 6.2-12.0 [facility] Microscopic analysis of urin e for red blood cells (RBC)Ordered By: Rizwan Cárdenas on 10-12-2024 Microscopic analysis of urine for red blood cells (RBC) 0 SEEN /hpf 0-5 [facility] Urine RBC 0 SEEN /hpf 0-5 [facility] Monocyte percentageOrdered B y: Rizwan Cárdenas on 10-12-2024 Monocytes/100 WBC (Bld) 7.4 % 0-10 [facility] Mucus LM Ql (Urine sed)Order ed By: Rizwan Cárdenas on 10-12-2024 Mucus Ql (Urine sed) 0 SEEN /hpf [facility] Neutrophil percentageOrdered By: Rizwan Cárdenas on 10-12-2024 Neutrophils/100 WBC (Bld) 50.1 % 47-70 [facility] Nitrite Test strip Ql (U)Ord ered By: Rizwan Cárdenas on 10-12-2024 Nitrite Ql (U) Negative Negative [facility] Nucleated red blood cell per centageOrdered By: Rizwan Cárdenas on 10-12-2024 Nucleated RBC/100 WBC (Bld) [Ratio] 0 % 0-5 [facility] Platelet countOrdered By: Chelsi Cárdenas on 10-12-2024 Platelets (Bld) [#/Vol] 213 10*3/uL 150-450 [facility] Potassium (Unsp spec) [Mass/ Vol]Ordered By: Rizwan Cárdenas on 10-12-2024 Potassium [Moles/Vol] 4.0 mmol/L 3.3-5.1 [facility] Potassium measurement (mass/ volume)Ordered By: Rizwan Cárdenas on 10-12-2024 Potassium (Unsp spec) [Mass/Vol] 4.0 mmol/L 3.3-5.1 [facility] Protein Test strip Ql (U)Ord ered By: Rizwan Cárdenas on 10-12-2024 Protein Ql (U) 15 mg/dl High Negative [facility] RBC Auto (Bld) [#/Vol]Ordere d By: Rizwan Cárdenas on 10-12-2024 RBC (Bld) [#/Vol] 4.67 10*6/uL 4.2-5.4 [facility] Serum creatinine measurement (mass/volume)Ordered By: Rizwan Cárdenas on 10-12-2024 Creatinine [Mass/Vol] 0.87 mg/dL 0.70-1.20 [facility] Serum globulin measurementOr dered By: Rizwan Cárdenas on 10-12-2024 Globulin (S) [Mass/Vol] 3.1 g/dL 2.2-4.2 [facility] Serum glucose measurement (m ass/volume)Ordered By: Rizwan Cárdenas on 10-12-2024 Glucose [Mass/Vol] 100 mg/dL High 70-99 [facility] Serum human chorionic gonado tropin detection for pregnancyOrdered By: Rizwan Cárdenas on 10-12-2024 HCG ( test) [place]l [address] mIU/mL High <9 [facility] Comment on above: Gestational Age0.2-1 Week: 5-50 mIU/mL1-2 Weeks: 50-500 mIU/mL2-3 Weeks: 100-5000 mIU/mL3-4 Weeks: 500-10,000 mIU/mL4-5 Weeks:1000-50,000 mIU/mL5-6 Weeks: 10,000-100,000 mIU/mL6-8 Weeks: 15,000-200,000 mIU/mL2-3 Months:10,000-100,000 mIU/mL Serum or plasma alanine rivero otransferase (ALT) measurementOrdered By: Rizwan Cárdenas on 10-12-2024 ALT [Catalytic activity/Vol] 14 U/L <35 [facility] Serum or plasma albumin roopa urement (mass/volume)Ordered By: Rizwan Cárdenas on 10-12-2024 Albumin [Mass/Vol] 4.3 g/dL 3.5-5.0 [facility] Serum or plasma alkaline robert sphatase measurementOrdered By: Rizwan Cárdenas on 10-12-2024 ALP [Catalytic activity/Vol] 92 U/L 35-104 [facility] Serum or plasma calcium roopa urement (mass/volume)Ordered By: Rizwan Cárdenas on 10-12-2024 Calcium [Mass/Vol] 9.2 mg/dL 7.6-11.0 [facility] Serum or plasma urea nitroge n measurement (mass/volume)Ordered By: Rizwan Cárdenas on 10-12-2024 Urea nitrogen [Mass/Vol] 15 mg/dL 4-19 [facility] Sodium levelOrdered By: Nav Cárdenas on 10-12-2024 Sodium [Moles/Vol] 137 mmol/L 133-145 [facility] Squamous epithelial cells de tection in urine sediment by light microscopyOrdered By: Rizwan Cárdenas on 10-12-2024 Epithelial cells.squamous LM Ql (Urine sed) 25-50 SEEN /hpf 5-10 [facility] Total proteinOrdered By: Giancarlo Cárdenas on 10-12-2024 Protein [Mass/Vol] 7.4 g/dL 5.9-8.4 [facility] Urinalysis, Completeon 10-12 AMORPHOUS 2+ Normal [facility] Comment on above: Order Comment: CLEAN CATCH Performed By: #### L 501.4100, L501.0900, L501.1105, L100.0500, L501.1400, L501.4405 #### [facility] [address] [place], [address] BACTERIA 2+ /hpf Normal None Seen [facility] Comment on above: Order Comment: CLEAN CATCH Performed By: #### L 501.4100, L501.0900, L501.1105, L100.0500, L501.1400, L501.4405 #### [facility] [address] [place], [address] EPI,SQUAMOUS 25-50 SEEN Normal 5-10 [facility] Comment on above: Order Comment: CLEAN CATCH Performed By: #### L 501.4100, L501.0900, L501.1105, L100.0500, L501.1400, L501.4405 #### [facility] [address] [place], [address] WBC >100 SEEN Normal 0-5 [facility] Comment on above: Order Comment: CLEAN CATCH Performed By: #### L 501.4100, L501.0900, L501.1105, L100.0500, L501.1400, L501.4405 #### [facility] [address] [place], [address] BILIRUBIN URINE Negative Normal Negative [facility] Comment on above: Order Comment: CLEAN CATCH Performed By: #### L 501.4100, L501.0900, L501.1105, L100.0500, L501.1400, L501.4405 #### [facility] [address] [place], [address] Clarity (U) Sl. Cloudy Normal Clear [facility] Comment on above: Order Comment: CLEAN CATCH Performed By: #### L 501.4100, L501.0900, L501.1105, L100.0500, L501.1400, L501.4405 #### [facility] [address] [place], [address] Color (U) Yellow Normal Yellow [facility] Comment on above: Order Comment: CLEAN CATCH Performed By: #### L 501.4100, L501.0900, L501.1105, L100.0500, L501.1400, L501.4405 #### [facility] [address] [place], [address] GLUCOSE, UR Normal Normal Normal [facility] Comment on above: Order Comment: CLEAN CATCH Performed By: #### L 501.4100, L501.0900, L501.1105, L100.0500, L501.1400, L501.4405 #### [facility] [address] [place], [address] KETONE UR Negative Normal Negative [facility] Comment on above: Order Comment: CLEAN CATCH Performed By: #### L 501.4100, L501.0900, L501.1105, L100.0500, L501.1400, L501.4405 #### [facility] [address] [place], [address] LEUK ESTERASE 500 /ul Abnormal Negative [facility] Comment on above: Order Comment: CLEAN CATCH Performed By: #### L 501.4100, L501.0900, L501.1105, L100.0500, L501.1400, L501.4405 #### [facility] [address] [place], [address] Mucus Ql (Urine sed) 0 SEEN Normal [facility] Comment on above: Order Comment: CLEAN CATCH Performed By: #### L 501.4100, L501.0900, L501.1105, L100.0500, L501.1400, L501.4405 #### [facility] [address] [place], [address] Nitrite Ql (U) Negative Normal Negative [facility] Comment on above: Order Comment: CLEAN CATCH Performed By: #### L 501.4100, L501.0900, L501.1105, L100.0500, L501.1400, L501.4405 #### [facility] [address] [place], [address] OCCULT BLOOD-UR Negative Normal Negative [facility] Comment on above: Order Comment: CLEAN CATCH Performed By: #### L 501.4100, L501.0900, L501.1105, L100.0500, L501.1400, L501.4405 #### [facility] [address] [place], [address] pH UR 6.5 Normal 5.0 - 8.0 [facility] Comment on above: Order Comment: CLEAN CATCH Performed By: #### L 501.4100, L501.0900, L501.1105, L100.0500, L501.1400, L501.4405 #### [facility] [address] [place], [address] PROT DIPSTX 15 mg/dl Abnormal Negative [facility] Comment on above: Order Comment: CLEAN CATCH Performed By: #### L 501.4100, L501.0900, L501.1105, L100.0500, L501.1400, L501.4405 #### [facility] [address] [place], [address] RBC 0 SEEN Normal 0-5 [facility] Comment on above: Order Comment: CLEAN CATCH Performed By: #### L 501.4100, L501.0900, L501.1105, L100.0500, L501.1400, L501.4405 #### [facility] [address] [place], [address] SP.GR. DIPSTX 1.015 Normal 1.002-1.030 [facility] Comment on above: Order Comment: CLEAN CATCH Performed By: #### L 501.4100, L501.0900, L501.1105, L100.0500, L501.1400, L501.4405 #### [facility] [address] [place], [address] UROBILI Normal Normal Normal [facility] Comment on above: Order Comment: CLEAN CATCH Performed By: #### L 501.4100, L501.0900, L501.1105, L100.0500, L501.1400, L501.4405 #### [facility] [place], [address] Urine blood detectionOrdered By: Rizwan Cárdenas on 10-12-2024 Urine Occult Blood Negative Negative [facility] Urine clarityOrdered By: Giancarlo Cárdenas on 10-12-2024 Clarity (U) Sl. Cloudy Clear [facility] Urine color determinationOrd ered By: Rizwan Cárdenas on 10-12-2024 Color (U) Yellow Yellow [facility] Urine cultureOrdered By: Giancarlo Cárdenas on 10-12-2024 Bacteria identified Cx Nom (U) Positive Abnormal [facility] Urine glucose detectionOrder ed By: Rizwan Cárdenas on 10-12-2024 Glucose Ql (U) Normal mg/dl Normal [facility] Urine leukocyte esterase det ection by dipstickOrdered By: Rizwan Cárdenas on 10-12-2024 Leukocyte esterase Test strip Ql (U) 500 /ul High Negative [facility] Urine pHOrdered By: Rizwan rivera on 10-12-2024 pH (U) 6.5 [pH] 5.0 - 8.0 [facility] Urine sediment bacteria coun t by microscopy (number/high power field)Ordered By: Rizwan Cárdenas on 10-12-2024 Bacteria LM.HPF (Urine sed) [#/Area] 2 /[HPF] None Seen [facility] Urine specific gravity measu rementOrdered By: Rizwan Cárdenas on 10-12-2024 Specific gravity (U) [Rel density] 1.015 1.002-1.030 [facility] Urine urobilinogen measureme ntOrdered By: Rizwan Cárdenas on 10-12-2024 Urobilinogen Ql (U) Normal mg/dl Normal [facility] Urobilinogen Ql (U)Ordered B y: Rizwan Cárdenas on 10-12-2024 Urine Urobilinogen Normal mg/dl Normal [facility] White blood cell (WBC) count Ordered By: Rizwan Cárdenas on 10-12-2024 WBC (Bld) [#/Vol] 8.0 10*3/uL 4.4-11.0 [facility] White blood cell countOrdere d By: Rizwan Cárdenas on 10-12-2024 Urine WBC >100 SEEN /hpf 0-5 [facility] White blood cell count >100 SEEN /hpf 0-5 [facility] hCG Titer Quant., Serumon HCG QUANT. 41152 mIU/mL High <9 non-preg [facility] Comment on above: Result Comment: Gest ational Age 0.2-1 Week: 5-50 mIU/mL 1-2 Weeks: 50-500 mIU/mL 2-3 Weeks: 100-5000 mIU/mL 3-4 Weeks: 500-10,000 mIU/mL 4-5 Weeks:1000-50,000 mIU/mL 5-6 Weeks: 10,000-100,000 mIU/mL 6-8 Weeks: 15,000-200,000 mIU/mL 2-3 Months:10,000-100,000 mIU/mL Performed By: #### L 501.4100, L501.0900, L501.1105, L100.0500, L501.1400, L501.4405 #### [facility] [address] [place], [address] [facility] 10-08-2024 [facility] Telephone ([id number]) SHILPA HOANG ([id number]) 1995 F Date Time Provider Department 10/08/24 MARGARITA HERNANDEZ [id number] During your visit today, we recorded the [...] : 1995 Provider for this encounter : CC [facility] Reason for call: 1st OB visit Was an appointment scheduled: No Reason for requesting visit (RFV/signs and symptoms/diagnosis) : New , patient answered yes to having condition that could affect (hypertension) Person calling: self Return call to: self Call patient at: [phone] (cell), it is OK to leave message Payor: [facility] MEDICAID / Plan: [facility] MEDICAID / Product Type: Medicaid / Jennifer Margarita Thomas RN 10/08/2024 1:41 PM Signed Call placed [...] have it, so she can receive the direct care specialist messages. Will forward this encounter to the schedulers in this office. Carla Mckinney RN 10/13/2024 10:27 AM Signed Patient has appt - closing encounter. Carla Mckinney RN Allergies As of Date: 10/08/2024 Noted Allergy Reaction WALNUT 11/10/2023 10 - Anaphylaxis CORN 11/10/2023 5 - Intolerance SEASONAL ALLERGIES 11/10/2023 3 - Cough Date Reviewed: 09/16/2024 Reviewed by: Hortencia Gould APRN.COSTUME SHOP COORDINATOR - Fully Assessed Reason for Visit: 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 [3602] Cmt: Initial OB RN [...] Encounter Status:Closed by BLAKE PLAZA on 10/13/24 [facility] Emergency Department Summary on 10-02-2024 Emergency Department Summary [facility] Medical Records Department [address] [place] [address] Emergency Department Summary 10/02/24 MR#: [id number] Acct: [id number] Name: SHILPA HOANG Rep #: [id number] : 1995 28 From: Kuldeep Vanegas DO PCP: Dr. David Mckinney MD Status:DEP ER Location: ED HPI History of Present Illness Chief Complaint: Dental PFSH PFS Medical History (Updated 10/02/24 @ 23:[address] Kuldeep Vanegas DO) (spontaneous vaginal delivery) Depression Family history of hearing loss at age younger than 7 years Gestational HTN Stillborn, normal History of placental abruption Trauma depression Anxiety Cervical myofascial strain Home Medications ???Medication ???Instructions ???Recorded ???Last Taken ???Type oqhdhyee-xul-Wu-FA 1 mg 1 tab PO DAILY 09/13/21 [...] 98 98 Oxygen Delivery Method Room Air [facility] MDM Narrative Medical decision making narrative: HISTORY [...] obtained from others: Significant other Consults: none [facility] Narrative: The patient was initially hemodynamically stable, [...] significant/life t (more content not included)... 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 Shilpa presents today for IUD insertion for [...] which included preparing to see the patient, [id number] patient care, completing clinical documentation, obtaining and/or [...] contact the office. Referring Provider: SHARDA VALERO [[id number]] Allergies As of Date: 09/16/2024 Noted Allergy Reaction WALNUT 11/10/2023 10 - Anaphylaxis CORN 11/10/2023 5 - Intolerance SEASONAL ALLERGIES 11/10/2023 3 - Cough Date Reviewed: 09/16/2024 Reviewed by: Hortencia Gould APRN.COSTUME SHOP COORDINATOR - Fully Assessed Reason for Visit: Insertion Of IUD [291] Primary Visit Diagnosis:Encounter for IUD insertion [Z30.430] Order(s):UA DIP,URINE HCG (POC) [2274786] Order #: [id number]. #:[id number] Prescriptions as of 09/16/2024 - albuterol [...] Status:Closed by HORTENCIA GOULD on 09/16/24 Normal [facility] UA DIP,URINE HCG (POC)on Beta HCG ( test) Ql (U) Negative Negative [facility] Comment on above: Location:[facility] [address], [place], [address] Lube Man (POCT) Internal QC OK [facility] [facility], [facility], [place], [place], [id number] [place] [address] POINT OF CARE [facility] CNCOon 08-12-2024 CNCO Letter Text Normal [facility] PAP TESTon 07-29-2024 ADEQUACY Normal [facility] Comment on above: Order Comment: Speci men Type: BLOOD SPECIMEN Ordering Facility: [facility] Address: [address] [place] [address] Result Comment: Sati sfactory for interpretation. Obscuring inflammation Performed By: #### 7 3752-8 #### [facility] CLIA [id number] [address] [place], [place] [address] [place] [address] [place] CASE REPORT Normal [facility] Comment on above: Order Comment: Speci men Type: BLOOD SPECIMEN Ordering Facility: [facility] Address: [address] [place] [address] Result Comment: Gyne cologic Cytology Report Case: [id number] Authorizing Provider: Sharda Valero APRN.COSTUME SHOP COORDINATOR Collected: 07/29/2024 01:48 PM Ordering Location: OB/Gynecology Received: 07/29/2024 04:10 PM First Screen: Aramouni, Ailyn, CT, ASCP Specimen: Pap Test, ThinPrep, Cervix Performed By: #### 7 3752-8 #### [facility] CLIA [id number] [address] [place] [address] [place] CLINICAL HISTORY, CYTOLOGY, UNIVERSITY ARCHIVIST Normal [facility] Comment on above: Order Comment: Speci men Type: BLOOD SPECIMEN Ordering Facility: [facility] Address: [address] [place] [address] Result Comment: Post (Indicate Weeks) No Menses, Other (Specify) Performed By: #### 7 3752-8 #### [facility] CLIA [id number] [address] [place] [address] STATES OF [facility] CYTOLOGY PAP OTHER INTERPRETATION Trichomonas vaginalis. Normal [facility] Comment on above: Order Comment: Speci men Type: BLOOD SPECIMEN Ordering Facility: [facility] Address: [address] [place] [address] Performed By: #### 7 3752-8 #### [facility] CLIA [id number] [address] [place] [address] STATES OF GIRISH FINAL PERFORMING LAB Normal [facility] Comment on above: Order Comment: Speci men Type: BLOOD SPECIMEN Ordering Facility: [facility] Address: [address] [place] [address] Result Comment: Tech nical component, baking assistant screening performed at [facility], [address] [place] [address] CLIA# [id number] Diagnostic interpretation performed at [facility], [address] [place] [address] CLIA# [id number] Veterinary Surgeon: Cordell Shields M.D. Performed By: #### 7 3752-8 #### [facility] CLIA [id number] [address] [place] [address] [place] INTERPRETATION, CYTOLOGY, UNIVERSITY ARCHIVIST Normal [facility] Comment on above: Order Comment: Speci men Type: BLOOD SPECIMEN Ordering Facility: [facility] Address: [address] [place] [address] Result Comment: Nega tive for intraepithelial lesion or malignancy. at 1633 EST Performed By: #### 7 3752-8 #### [facility] CLIA [id number] [address] [place] [address] [place] PAP DISCLAIMER COMMENT The Pap Smear is a screening test for cervical cancer. False negative results occur with all screening tests, emphasizing the need for rescreening at recommended intervals, and clinical correlation. Normal [facility] Comment on above: Order Comment: Speci men Type: BLOOD SPECIMEN Ordering Facility: [facility] Address: [address] [place] [address] Performed By: #### 7 3752-8 #### [facility] CLIA [id number] [address] [place] [address] [place] MR/OB.VAGDELIon 06-18-2024 [facility] Department [address] [place] [address] OB VAGINAL DELIVERY 06/18/24 1315 MR#: [id number] Acct: [id number] Name: SHILPA HOANG Rep #: [id number] : 1995 28 From: Margarita Alcala MD PCP: Dr. 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 David Mckinney MD; Dr. Margarita Alcala MD Signed Normal [facility] Urine Drug Screen (VISTA)on 06-18-2024 AMPHETAMINES Normal <1000 ng/mL [facility] Comment on above: Result Comment: Brad rangel via OM: Ordered Performed By: #### L 501.4100, L501.0900, L501.1105, L100.0500, L501.1400, L501.4405 #### [facility] [place], [address] BARBITIURATES Normal < 200 ng/mL [facility] Comment on above: Result Comment: Canc elled via OM: MD Ordered Performed By: #### L 501.4100, L501.0900, L501.1105, L100.0500, L501.1400, L501.4405 #### [facility] [address] [place], [address] BENZODIAZIPINE Normal < 200 ng/mL [facility] Comment on above: Result Comment: Canc elled via OM: MD Ordered Performed By: #### L 501.4100, L501.0900, L501.1105, L100.0500, L501.1400, L501.4405 #### [facility] [address] [place], [address] COCAINE Normal < 300 ng/mL [facility] Comment on above: Result Comment: Canc elled via OM: MD Ordered Performed By: #### L 501.4100, L501.0900, L501.1105, L100.0500, L501.1400, L501.4405 #### [facility] [address] [place], [address] DRUG CONFIRM Normal [facility] Comment on above: Result Comment: Canc elled via OM: MD Ordered Performed By: #### L 501.4100, L501.0900, L501.1105, L100.0500, L501.1400, L501.4405 #### [facility] [address] [place], [address] ECSTACY Normal < 500 ng/mL [facility] Comment on above: Result Comment: Canc elled via OM: MD Ordered Performed By: #### L 501.4100, L501.0900, L501.1105, L100.0500, L501.1400, L501.4405 #### [facility] [address] [place], [address] METHADONE Normal < 300 ng/mL [facility] Comment on above: Result Comment: Canc elled via OM: MD Ordered Performed By: #### L 501.4100, L501.0900, L501.1105, L100.0500, L501.1400, L501.4405 #### [facility] [address] [place], [address] OPIATES Normal < 300 ng/mL [facility] Comment on above: Result Comment: Canc elled via OM: MD Ordered Performed By: #### L 501.4100, L501.0900, L501.1105, L100.0500, L501.1400, L501.4405 #### [facility] [address] [place], [address] PCP Normal < 25 ng/mL [facility] Comment on above: Result Comment: Canc elled via OM: MD Ordered Performed By: #### L 501.4100, L501.0900, L501.1105, L100.0500, L501.1400, L501.4405 #### [facility] [address] [place], [address] THC Normal < 50 ng/mL [facility] Comment on above: Result Comment: Canc elled via OM: MD Ordered Performed By: #### L 501.4100, L501.0900, L501.1105, L100.0500, L501.1400, L501.4405 #### [facility] [address] [place], [address] VISTA UDS PH Normal [facility] Comment on above: Result Comment: Canc elled via OM: MD Ordered Performed By: #### L 501.4100, L501.0900, L501.1105, L100.0500, L501.1400, L501.4405 #### [facility] [address] [place], [address] AST(SGOT)on 06-17-2024 AST [Catalytic activity/Vol] 13 U/L Low 15-37 [facility] Comment on above: Performed By: #### L 501.4100, L501.0900, L501.1105, L100.0500, L501.1400, L501.4405 #### [facility] [address] [place], [address] Alanine Aminotransferas (SGP T)on 06-17-2024 ALT [Catalytic activity/Vol] 15 U/L Normal 13-56 [facility] Comment on above: Performed By: #### L 501.4100, L501.0900, L501.1105, L100.0500, L501.1400, L501.4405 #### [facility] [address] [facility] [place], [address] CBC-Complete Blood Cnt No Di ffon 06-17-2024 Erythrocyte distribution width (RBC) [Ratio] 17.0 % High 11.6-14.6 [facility] Comment on above: Performed By: #### L 501.4100, L501.0900, L501.1105, L100.0500, L501.1400, L501.4405 #### [facility] [address] [facility] [place], [address] Hematocrit (Bld) [Volume fraction] 27.7 % Low 37-47 [facility] Comment on above: Performed By: #### L 501.4100, L501.0900, L501.1105, L100.0500, L501.1400, L501.4405 #### [facility] [address] [place], [address] Hemoglobin (Bld) [Mass/Vol] 8.6 g/dL Low 12.0-15.0 [facility] Comment on above: Performed By: #### L 501.4100, L501.0900, L501.1105, L100.0500, L501.1400, L501.4405 #### [facility] [address] [place], [address] MCH (RBC) [Entitic mass] 24.8 pg Low 27.0-32.0 [facility] Comment on above: Performed By: #### L 501.4100, L501.0900, L501.1105, L100.0500, L501.1400, L501.4405 #### [facility] [address] [place], [address] MCHC (RBC) [Mass/Vol] 31.0 g/dL Low 32-36 [facility] Comment on above: Performed By: #### L 501.4100, L501.0900, L501.1105, L100.0500, L501.1400, L501.4405 #### [facility] [address] [place], [address] MCV (RBC) [Entitic vol] 79.8 fL Low 81-99 [facility] Comment on above: Performed By: #### L 501.4100, L501.0900, L501.1105, L100.0500, L501.1400, L501.4405 #### [facility] [address] [place], [address] Platelet mean volume (Bld) [Entitic vol] 12.5 fL High 6.2-12.0 [facility] Comment on above: Performed By: #### L 501.4100, L501.0900, L501.1105, L100.0500, L501.1400, L501.4405 #### [facility] [address] [place], [address] Platelets (Bld) [#/Vol] 143 10*3/uL Low 150-450 [facility] Comment on above: Performed By: #### L 501.4100, L501.0900, L501.1105, L100.0500, L501.1400, L501.4405 #### [facility] [address] [place], [address] RBC (Bld) [#/Vol] 3.47 10*6/uL Low 4.2-5.4 [facility] Comment on above: Performed By: #### L 501.4100, L501.0900, L501.1105, L100.0500, L501.1400, L501.4405 #### [facility] [address] [place], [address] RDW SD 48.8 fl High 35.1-43.9 [facility] Comment on above: Performed By: #### L 501.4100, L501.0900, L501.1105, L100.0500, L501.1400, L501.4405 #### [facility] [address] [place], [address] WBC (Bld) [#/Vol] 10.8 10*3/uL Normal 4.4-11.0 [facility] Comment on above: Performed By: #### L 501.4100, L501.0900, L501.1105, L100.0500, L501.1400, L501.4405 #### [facility] [address] [place], [address] Erythrocyte distribution wid th (RBC) [Ratio]Ordered By: Johana Turner on 06-17-2024 Erythrocyte distribution width (RBC) [Entitic vol] 48.8 fL High 35.1-43.9 [facility] Erythrocyte distribution wid th ratioOrdered By: Johana Turner on 06-17-2024 Erythrocyte distribution width (RBC) [Ratio] 17.0 % High 11.6-14.6 [facility] Estimated glomerular filtrat ion rate (GFR) AmericanOrdered By: Johana Turner on 06-17-2024 Estimated GFR (MDRD) Amer 198 mL/min >60 [facility] Comment on above: GFR Calc Estimation of creatinine morgan aranceOrdered By: Johana Turner on 06-17-2024 Estimated Creatinine Clearance Calc 191.32 ml/min [facility] Glomerular filtration rate ( GFR) estimationOrdered By: Johana Turner on 06-17-2024 Estimated GFR (MDRD) Non-Af Amer 164 mL/min >60 [facility] Comment on above: Non- GFR Calc H AND P Exam - OB/GYNon 05-24 H&P Exam - HISTORICAL INTERPRETER [facility] Medical Records Department [address] [place] [address] H P Exam - HISTORICAL INTERPRETER 06/17/24 1705 MR#: [id number] Acct: [id number] Name: SHILPA HOANG Rep #: [id number] : 1995 28 From: Johana Turner CNM PCP: Dr. David Mckinney MD Status:ADM IN Location: [id number] HPI - General General Date of Admission: [...] Medications ???Medication ???Instructions ???Recorded ???Last Taken ???Type bzsoqtsc-esz-Yc-FA 1 mg 1 tab PO DAILY 09/13/21 [...] 02/09/17 Piper 42 live - full term [id number] Female 18 epidural [facility] 11/13/18 Bethany 40 live - full term 8lb2oz Female [...] Pressure BP (more content not included)... Normal [facility] Hematocrit Auto (Bld) [Volum e fraction]Ordered By: Johana Turner on 06-17-2024 Hematocrit (Bld) [Volume fraction] 27.7 % Low 37-47 [facility] Hemoglobin measurementOrdere d By: Johana Turner on 06-17-2024 Hemoglobin (Bld) [Mass/Vol] 8.6 g/dL Low 12.0-15.0 [facility] L509.8000on 06-17-2024 Syphilis Abs Non-Reactive Normal [facility] Comment on above: Performed By: #### L 501.4100, L501.0900, L501.1105, L100.0500, L501.1400, L501.4405 #### [facility] [address] [facility] [place], [address] Laboratory - Chemistry and C hemistry - challengeOrdered By: Johana Turner on 06-17-2024 AST [Catalytic activity/Vol] 13 U/L Low 15-37 [facility] MCV (mean corpuscular volume ) determinationOrdered By: Johana Turner on 06-17-2024 MCV (RBC) [Entitic vol] 79.8 fL Low 81-99 [facility] Mean corpuscular hemoglobin (MCH) determinationOrdered By: Johana Turner on 06-17-2024 MCH (RBC) [Entitic mass] 24.8 pg Low 27.0-32.0 [facility] Mean corpuscular hemoglobin concentration (MCHC) determinationOrdered By: Johana Turner on 06-17-2024 MCHC (RBC) [Mass/Vol] 31.0 g/dL Low 32-36 [facility] Mean platelet volume determi nationOrdered By: Johana Turner on 06-17-2024 Platelet mean volume (Bld) [Entitic vol] 12.5 fL High 6.2-12.0 [facility] Methadone, urineOrdered By: Johana Turner on 06-17-2024 Urine Methadone Screen Negative < 300 ng/mL [facility] No Panel InformationOrdered By: Johana Turenr on 06-17-2024 Urine Drug Screen Comment [facility] Comment on above: CONFIRMATORY TESTING FOR ALL [...] Platelets (Bld) [#/Vol] 143 10*3/uL Low 150-450 [facility] Protein+Creatinine Ratio,Uri neon 06-17-2024 PROT:CRE RATIO 218 mg/g CRE High 0-200 [facility] Comment on above: Performed By: #### L 501.4100, L501.0900, L501.1105, L100.0500, L501.1400, L501.4405 #### [facility] [address] [place], [place] [address]rd[place], [address] Protein (U) [Mass/Vol] 30.5 mg/dL High <11.9 [facility] Comment on above: Performed By: #### L 501.4100, L501.0900, L501.1105, L100.0500, L501.1400, L501.4405 #### [facility] [address] [place], [address] UR CREAT 140.00 mg/dL Normal NO RANGE EST. [facility] Comment on above: Performed By: #### L 501.4100, L501.0900, L501.1105, L100.0500, L501.1400, L501.4405 #### [facility] [address] [place], [address] Protein/Creatinine (U) [Mass ratio]Ordered By: Johana Turner on 06-17-2024 Urine Protein/Creatinine Ratio 218 mg/g CRE High 0-200 [facility] Quantitative urine opiates m easurementOrdered By: Johana Turner on 06-17-2024 Opiates Ql (U) Negative < 300 ng/mL [facility] RBC Auto (Bld) [#/Vol]Ordere d By: Johana Turner on 06-17-2024 RBC (Bld) [#/Vol] 3.47 10*6/uL Low 4.2-5.4 [facility] Random urine protein measure mentOrdered By: Johana Turner on 06-17-2024 Protein (U) [Mass/Vol] 30.5 mg/dL High 0.0-11.8 [facility] Serum Creatinine AND GFRon 1 08-18-2023 Creatinine [Mass/Vol] 0.48 mg/dL Low 0.55-1.02 [facility] Comment on above: Result Comment: The validity of the calculated GFR GFRAA in patients over 70 years has not been determined. Clinical correlation is essential. Performed By: #### L 501.4100, L501.0900, L501.1105, L100.0500, L501.1400, L501.4405 #### [facility] [address] [place], [address] ECRCL 191.32 ml/min Normal [facility] Comment on above: Performed By: #### L 501.4100, L501.0900, L501.1105, L100.0500, L501.1400, L501.4405 #### [facility] [address] [place], [place], [id number] EST GFR - AA 198 mL/min Normal >60 [facility] Comment on above: Result Comment: Afri can Pakistani GFR Calc Performed By: #### L 501.4100, L501.0900, L501.1105, L100.0500, L501.1400, L501.4405 #### [facility] [address] [place], [place], [address] GFR/1.73 sq M.predicted among non-blacks MDRD (S/P/Bld) [Vol rate/Area] 164 mL/min/{1.73_m2} Normal >60 [facility] Comment on above: Result Comment: Non- GFR Calc Performed By: #### L 501.4100, L501.0900, L501.1105, L100.0500, L501.1400, L501.4405 #### [facility] [address] [place], [place], [address] Serum or plasma alanine rivero otransferase (ALT) measurementOrdered By: Johana Turner on 06-17-2024 ALT [Catalytic activity/Vol] 15 U/L 13-56 [facility] Serum or plasma creatinine m easurement (mass/volume)Ordered By: Johana Turner on 06-17-2024 Creatinine [Mass/Vol] 0.48 mg/dL Low 0.55-1.02 [facility] Comment on above: The validity of the calculated GFR & GFRAA in patients over 70 years has not been determined. Clinical correlation is essential. Serum or plasma uric acid me asurement (mass/volume)Ordered By: Johana Turner on 06-17-2024 Urate [Mass/Vol] 4.2 mg/dL 2.6-6.0 [facility] Comment on above: The drugs N-Acetylcy steine and Metamizole may falsely depress this assay. Treponema sp Ab Ql (S)Ordere d By: Soy Cassidy on 06-17-2024 Syphilis Total Antibody Non-Reactive [facility] Type AND Screenon 06-17-2024 ABO and Rh group Nom (Bld) Blood group A Rh(D) positive Normal [facility] Comment on above: Order Comment: Labor Performed By: #### L 501.4100, L501.0900, L501.1105, L100.0500, L501.1400, L501.4405 #### [facility] [address] [place], [place], [id number] (135 URINE OB DIP B/Oon Glucose Ql (U) Negative Neg mg/dL [facility] Protein.monoclonal (U) [Mass/Vol] Negative Neg mg/dL [facility] Uric Acidon 06-17-2024 URIC 4.2 mg/dL Normal 2.6-6.0 [facility] Comment on above: Result Comment: The drugs N-Acetylcysteine and Metamizole may falsely depress this assay. Performed By: #### L 501.4100, L501.0900, L501.1105, L100.0500, L501.1400, L501.4405 #### [facility] [address] [place], [place], [address] Urine Drug Screen (VISTA)on 06-17-2024 AMPHETAMINES Negative Normal <1000 ng/mL [facility] Comment on above: Order Comment: amphe tamines Performed By: #### L 501.4100, L501.0900, L501.1105, L100.0500, L501.1400, L501.4405 #### [facility] [address] [place], [address] BARBITIURATES Negative Normal < 200 ng/mL [facility] Comment on above: Order Comment: amphe tamines Performed By: #### L 501.4100, L501.0900, L501.1105, L100.0500, L501.1400, L501.4405 #### [facility] [address] [place], [address] BENZODIAZIPINE Negative Normal < 200 ng/mL [facility] Comment on above: Order Comment: amphe tamines Performed By: #### L 501.4100, L501.0900, L501.1105, L100.0500, L501.1400, L501.4405 #### [facility] [address] [place], [address] COCAINE Negative Normal < 300 ng/mL [facility] Comment on above: Order Comment: amphe tamines Performed By: #### L 501.4100, L501.0900, L501.1105, L100.0500, L501.1400, L501.4405 #### [facility] [address] [place], [place], [facility] ECSTACY Negative Normal < 500 ng/mL [facility] Comment on above: Order Comment: amphe tamines Performed By: #### L 501.4100, L501.0900, L501.1105, L100.0500, L501.1400, L501.4405 #### [facility] [address] [place], [place], [facility] METHADONE Negative Normal < 300 ng/mL [facility] Comment on above: Order Comment: amphe tamines Performed By: #### L 501.4100, L501.0900, L501.1105, L100.0500, L501.1400, L501.4405 #### [facility] [address] [place], [address] OPIATES Negative Normal < 300 ng/mL [facility] Comment on above: Order Comment: amphe tamines Performed By: #### L 501.4100, L501.0900, L501.1105, L100.0500, L501.1400, L501.4405 #### [facility] [address] [place], [address] PCP Negative Normal < 25 ng/mL [facility] Comment on above: Order Comment: amphe tamines Performed By: #### L 501.4100, L501.0900, L501.1105, L100.0500, L501.1400, L501.4405 #### [facility] [address] [place], [address] THC Negative Normal < 50 ng/mL [facility] Comment on above: Order Comment: amphe tamines Performed By: #### L 501.4100, L501.0900, L501.1105, L100.0500, L501.1400, L501.4405 #### [facility] [address] [place], [address] VISTA UDS PH 5 Normal [facility] Comment on above: Order Comment: amphe tamines Performed By: #### L 501.4100, L501.0900, L501.1105, L100.0500, L501.1400, L501.4405 #### [facility] [address] [place], [address] Urine amphetamine measuremen tOrdered By: Johana Turner on 06-17-2024 Amphetamines Ql (U) Negative <1000 ng/mL [facility] Urine barbiturates measureme ntOrdered By: Johana Turner on 06-17-2024 Urine Barbiturates Screen Negative < 200 ng/mL [facility] Urine benzodiazepine levelOr dered By: Johana Turner on 06-17-2024 Benzodiazepines Ql (U) Negative < 200 ng/mL [facility] Urine cocaine levelOrdered B y: Johana Turner on 06-17-2024 Cocaine Ql (U) Negative < 300 ng/mL [facility] Urine creatinine measurement (mass/volume)Ordered By: Johana Turner on 06-17-2024 Creatinine (U) [Mass/Vol] 140.00 mg/dL NO RANGE EST. [facility] Urine exeip-1-vdfalqjfxzblmg abinol (THC) measurementOrdered By: Johana Turner on 06-17-2024 Cannabinoids Screen Ql (U) Negative < 50 ng/mL [facility] Urine methylenedioxymethamph etamine (MDMA) measurementOrdered By: Johana Turner on 06-17-2024 MDMA (Ecstasy) Screen Negative < 500 ng/mL [facility] Urine phencyclidine (PCP) de tectionOrdered By: Johana Turner on 06-17-2024 Phencyclidine Ql (U) Negative < 25 ng/mL [facility] White blood cell (WBC) count Ordered By: Johana Turner on 06-17-2024 WBC (Bld) [#/Vol] 10.8 10*3/uL 4.4-11.0 [facility] CNPNon 06-14-2024 CNPN Telephone (OBGYWM) SHILPA HOANG ([id number]) 1995 F Date Time Provider Department 06/14/24 SARAH HUBER OBGY During your visit today, we recorded the following information about you: Jennifer Roldan 06/14/2024 10:30 AM Signed [facility] is requesting HANDP to be faxed to [phone]. Margarita Hearn RN 06/14/2024 11:06 AM Signed Faxed via R&V. Margarita Hearn RN Allergies As of Date: [...] Status:Closed by MARGARITA HEARN on 06/14/24 Normal [facility] Examination level ultrasound on 06-12-2024 [facility] Examination level ultrasound on 06-11-2024 Radiology Study observation (narrative) [facility] ROUTINE, GROUP B ST REP PCRon 06-11-2024 ROUTINE, GROUP B STREP PCR GROUP B STREP PCR: Positive for Group B Streptococcus by PCR. Abnormal [facility] Comment on above: Performed By: #### G BPCR ####[facility] LABCLIA [id number] [place] [address] [place] URINE OB DIP B/Oon Glucose Ql (U) Negative Neg mg/dL [facility] Protein.monoclonal (U) [Mass/Vol] trace Neg mg/dL [facility] FERRITINon 06-05-2024 Ferritin [Mass/Vol] 11.4 ng/mL Low 14.7 - 2 05.1 ng/mL [facility] Ferritin [Mass/Vol]on 2023 Interpretation and review of laboratory results Abnormal [facility] Iron and Iron binding capaci ty panelon 06-05-2024 Interpretation and review of laboratory results Abnormal [facility] Iron [Mass/Vol] 25 ug/dL Low 41 - 186 ug/dL [facility] Iron binding capacity [Mass/Vol] 490 ug/dL High 232 - 386 ug/dL [facility] Iron/TIBC [Molar ratio] 5.1 % Low 15.0 - 57.0 % [facility] Ferritin SerPl-mCncon 2023 Ferritin [Mass/Vol] 11.4 ng/mL Low 14.7-205.1 [facility] Comment on above: Order Comment: Speci men Type: BLOOD SPECIMENOrdering Facility: [facility] Address: [address] [place] [address] Performed By: #### 5 0190-8, 2275- ####[facility] LABIA [id number] [address] STATES OF [facility] Iron and Iron binding capaci ty panelon 06-04-2024 Iron [Mass/Vol] 25 ug/dL Low 41-186 [facility] Comment on above: Order Comment: Speci men Type: BLOOD SPECIMENOrdering Facility: [facility] Address: [address] [place] [address] Performed By: #### 5 0190-8, 2275- ####[facility] LABCLIA [id number] [address] Iron binding capacity [Mass/Vol] 490 ug/dL High 232-386 [facility] Comment on above: Order Comment: Speci men Type: BLOOD SPECIMENOrdering Facility: [facility] Address: [address] [place] [address] Performed By: #### 5 0190-8, 2275-4 ####[facility] LABCLIA [id number] [place] [address] [place] Iron/TIBC [Molar ratio] 5.1 % Low 15.0-57.0 [facility] Comment on above: Order Comment: Speci men Type: BLOOD SPECIMENOrdering Facility: [facility] Address: [address] [place] [address] Performed By: #### 5 0190-8, 2275-4 ####[facility] LABCLIA [id number] [place] [address] [place] CBC panel Auto (Bld)on 06-03 Erythrocyte distribution width (RBC) [Ratio] 16.8 % High 11.5 - 15.0 % [facility] Hematocrit (Bld) [Volume fraction] 27.9 % Low 36.0 - 46.0 % [facility] Hemoglobin (Bld) [Mass/Vol] 8.8 g/dL Low 11.5 - 15.5 g/dL [facility] Interpretation and review of laboratory results Abnormal [facility] MCH (RBC) [Entitic mass] 26.0 pg 26.0 - 34.0 pg [facility] MCHC (RBC) [Mass/Vol] 31.5 g/dL 30.5 - 36.0 g/dL [facility] MCV (RBC) [Entitic vol] 82.3 fL 80.0 - 100.0 fL [facility] Nucleated RBC (Bld) [#/Vol] NINF [facility] Platelet mean volume (Bld) [Entitic vol] 12.5 fL 9.0 - 12.7 fL [facility] Platelets (Bld) [#/Vol] 123 10*3/uL Low [facility] Comment on above: No clot detected. RBC (Bld) [#/Vol] 3.39 10*6/uL Low 3.90 - 5.2 0 m/uL [facility] WBC (Bld) [#/Vol] 9.56 10*3/uL [facility] Erythrocyte distribution width (RBC) [Ratio] 16.8 % High 11.5-15.0 [facility] Comment on above: Order Comment: Speci men Type: BLOOD SPECIMEN [facility] Address: [address] [place] [address] Performed By: #### 7 3752-8 #### [facility] CLIA [id number] [address] [place] [address] [place] Hematocrit (Bld) [Volume fraction] 27.9 % Low 36.0-46.0 [facility] Comment on above: Order Comment: Speci men Type: BLOOD SPECIMEN [facility] Address: [address] [place] [address] Performed By: #### 7 3752-8 #### [facility] CLIA [id number] [address] [place] [address] [place] Hemoglobin (Bld) [Mass/Vol] 8.8 g/dL Low 11.5-15.5 [facility] Comment on above: Order Comment: Speci men Type: BLOOD SPECIMEN [facility] Address: [address] [place] [address] Performed By: #### 7 3752-8 #### [facility] CLIA [id number] [address] [place] [address] [place] MCH (RBC) [Entitic mass] 26.0 pg Normal 26.0-34.0 [facility] Comment on above: Order Comment: Speci men Type: BLOOD SPECIMEN [facility] Address: [address] [place] [address] Performed By: #### 7 3752-8 #### [facility] CLIA [id number] [address] [place] [address] [place] MCHC (RBC) [Mass/Vol] 31.5 g/dL Normal 30.5-36.0 [facility] Comment on above: Order Comment: Speci men Type: BLOOD SPECIMEN [facility] Address: [address] [place] [address] Performed By: #### 7 3752-8 #### [facility] CLIA [id number] [address] [place] [address] [place] MCV (RBC) [Entitic vol] 82.3 fL Normal 80.0-100.0 [facility] Comment on above: Order Comment: Speci men Type: BLOOD SPECIMEN [facility] Address: [address] [place] [address] Performed By: #### 7 3752-8 #### [facility] CLIA [id number] [address] [place] [address] [place] Nucleated RBC (Bld) [#/Vol] 10*3/uL Normal <0.01 [facility] Comment on above: Order Comment: Speci men Type: BLOOD SPECIMEN [facility] Address: [address] [place] [address] Performed By: #### 7 3752-8 #### [facility] CLIA [id number] [address] [place] [address] [place] Platelet mean volume (Bld) [Entitic vol] 12.5 fL Normal 9.0-12.7 [facility] Comment on above: Order Comment: Speci men Type: BLOOD SPECIMEN [facility] Address: [address] [place] [address] Performed By: #### 7 3752-8 #### [facility] CLIA [id number] [address] [place] [address] [place] Platelets (Bld) [#/Vol] 123 10*3/uL Low 150-400 [facility] Comment on above: Order Comment: Speci men Type: BLOOD SPECIMEN [facility] Address: [address] [place] [address] Result Comment: No c lot detected. Performed By: #### 7 3752-8 #### [facility] CLIA [id number] [address] [id number] [address] [place] RBC (Bld) [#/Vol] 3.39 10*6/uL Low 3.90-5.20 [facility] Comment on above: Order Comment: Costa bergeron Type: BLOOD SPECIMEN [facility] Address: [address] [place] [address] Performed By: #### 7 3752-8 #### [facility] CLIA [id number] [address] [place] [address] [place] WBC (Bld) [#/Vol] 9.56 10*3/uL Normal 3.70-11.00 [facility] Comment on above: Order Comment: Costa bergeron Type: BLOOD SPECIMEN [facility] Address: [address] [place] [address] Performed By: #### 7 3752-8 #### [facility] CLIA [id number] [address] [place] [address] OF [facility] Tay 06-03-2024 RUTH Telephone (OBGYWM) SHILPA HOANG ([id number]) 1995 F Date Time Provider Department 06/03/24 HALLE ORELLANA During your visit today, we recorded the following information about you: Halle Orellana APRN.CNP 06/03/2024 3:08 PM Signed Hemoglobin 8.8. Blood management referral placed. Please assist in arranging. Halle Orellana APRN.Margarita Quintanilla, CHANA 06/03/2024 3:16 PM Signed Patient will need to have iron studies drawn first before Blood Management can work on referral. Please file pending orders. Will then call patient. CHANA Gonzalez JenniferCHANA 06/03/2024 3:54 PM Signed 35w4d Patient notified. Will have iron studies drawn tomorrow. Margarita Hearn RN Allergies As of Date: 06/03/2024 Noted Allergy Reaction [place] 11/10/2023 10 - Anaphylaxis CORN 11/10/2023 5 - Intolerance SEASONAL ALLERGIES 11/10/2023 3 - Cough Date Reviewed: 06/03/2024 Reviewed by: Halle Orellana APRN.COSTUME SHOP COORDINATOR - Fully Assessed Reason for Visit: Results [95] Primary Visit Diagnosis:Anemia complicating , third trimester [O99.013] Other Visit Diagnosis:Antepartum anemia complicating in third trimester [O99.013] Order(s):BLOOD MANAGEMENT REFERRAL [[id number]] Order #: [id number]: 1 FERRITIN [SQFERR] Order #: [id number] FUTURE IRON AND TIBC [SQIRON] Order #: [id number] FUTURE Prescriptions as of 06/07/2024 - FLUoxetine [...] Encounter Status:Closed by KHUSHBOO ABRAHAM on 06/07/24 [facility] DIP B/OOrdered By: Alicia Holliday on 06-03-2024 Glucose Ql (U) Negative Neg mg/dL [facility] Interpretation and review of laboratory results Normal [facility] Protein.monoclonal (U) [Mass/Vol] Negative Neg mg/dL [facility] OB Triage Physician Noteon 1 07-29-2023 OB Triage Physician Note [facility] Medical Records Department [address] [place] [address] OB Triage Physician Note 05/28/24 1239 MR#: [id number] Acct: [id number] Name: SHILPA HOANG Rep #: [id number] : 1995 28 From: Jeanette Patel MD PCP: Dr. David Mckinney MD Status:DEP CLI Y Location: [email or web address] HPI - General General Date of Service: [...] Medications ???Medication ???Instructions ???Recorded ???Last Taken ???Type pohlbtuz-ngt-Mf-FA 1 mg 1 tab PO DAILY 09/13/21 [...] 02/09/17 Piper 41 live - full term [id number] Female 18 epidural [facility] [place] 11/13/18 Bethany 39 live - full term 8lb2oz Female 13 epidural WC Be nekos NST FHR Rate Baby A [...] MD; Dr. Jeanette Patel MD Signed Normal [facility] URINE OB DIP B/Oon 4 Glucose Ql (U) Negative Neg mg/dL [facility] Interpretation and review of laboratory results Normal [facility] Protein.monoclonal (U) [Mass/Vol] Negative Neg mg/dL [facility] Examination level ultrasound on 05-12-2024 [facility] Radiology [facility]ative[facility] Tay 04-29-2024 KAITLYNNN Telephone (OBGYWM) SHILPA HOANG ([id number]) 1995 F Date Time Provider Department 04/29/24 MARGARITA ALCALA OBERIKAWNilda During your visit today, we recorded the following information about you: Nicci Mckeon RN 04/29/2024 9:36 AM Signed Margarita Alcala MD P [facility] Ob-Supervisor [employer] This patient is also suppose to be weekly NSTs at 32 weeks because of HX of IUFD ([facility] recommended) She was suppose to schedule [...] Encounter Status:Closed by NICCI MCKEON on 04/29/24 Normal [facility] 04-22-2024 CNPN Telephone (OBGYWM) SHILPA HOANG ([id number]) 1995 F Date Time Provider Department 04/22/24 JOHANA TURNER OBGYWM During your visit today, we recorded [...] Signed Left detailed message on identified voicemail. aMrgarita Hearn RN Allergies As of Date: 04/22/2024 [...] Encounter Status:Closed by JOHANA TURNER on 04/22/24 [facility] 04-19-2024 CNPN Telephone (OGFVWE) SHILPA HOANG ([id number]) 1995 F Date Time Provider Department 04/19/24 [employer] FRVW LIPSCOMB OGFVWE During your visit today, we recorded [...] Status:Closed by CARLA MCKINNEY on 04/19/24 Normal [facility] Examination level ultrasound on 04-14-2024 [facility] Radiology Study observation (narrative) [facility] CBC W Auto Differential pane l (Bld)on 04-13-2024 Basophils (Bld) [#/Vol] 0.04 10*3/uL Normal <0.11 [facility] Comment on above: Order Comment: Speci men Type: BLOOD SPECIMENOrdering Facility: [facility] Address: [address] [place] [address] Performed By: #### 5 7021-8 ####[facility] [id number] [place] [address] [place] Basophils/100 WBC (Bld) 0.4 % Normal [facility] Comment on above: Order Comment: Speci men Type: BLOOD SPECIMENOrdering Facility: [facility] Address: [address] [place] [address] Performed By: #### 5 7021-8 ####[facility] [id number] [place] [address] [place] Differential cell count method Nom (Bld) Auto Normal [facility] Comment on above: Order Comment: Speci men Type: BLOOD SPECIMENOrdering Facility: [facility] Address: [address] [place] [address] Performed By: #### 5 7021-8 ####[facility] CASEYJamalNCMICHELLE [id number] [place] [address] [place] Eosinophils (Bld) [#/Vol] 0.21 10*3/uL Normal <0.46 [facility] Comment on above: Order Comment: Speci men Type: BLOOD SPECIMENOrdering Facility: [facility] Address: [address] [place] [address] Performed By: #### 5 7021-8 ####[facility]ITAL[facility] [id number] [place] [address] [place] Eosinophils/100 WBC (Bld) 2.3 % Normal [facility] Comment on above: Order Comment: Speci men Type: BLOOD SPECIMENOrdering Facility: [facility] Address: [address] [place] [address] Performed By: #### 5 7021-8 ####[facility]ITALNCGAR[facility] [id number] [place] [address] [place] Erythrocyte distribution width (RBC) [Ratio] 13.7 % Normal 11.5-15.0 [facility] Comment on above: Order Comment: Speci men Type: BLOOD SPECIMENOrdering Facility: [facility] Address: [address] [place] [address] Performed By: #### 5 7021-8 ####[facility]ITALNCLIA [id number] [place] [address] [place] Hematocrit (Bld) [Volume fraction] 32.2 % Low 36.0-46.0 [facility] Comment on above: Order Comment: Speci men Type: BLOOD SPECIMENOrdering Facility: [facility] Address: [address] [place] [address] Performed By: #### 5 7021-8 ####[facility]ITALNCLIA [id number] [place] [address] [place] Hemoglobin (Bld) [Mass/Vol] 10.2 g/dL Low 11.5-15.5 [facility] Comment on above: Order Comment: Speci men Type: BLOOD SPECIMENOrdering Facility: [facility] Address: [address] [place] [address] Performed By: #### 5 7021-8 ####[facility]ITALNCLIA [id number] [place] [address] [place] Immature granulocytes (Bld) [#/Vol] 0.14 10*3/uL High <0.10 [facility] Comment on above: Order Comment: Speci men Type: BLOOD SPECIMENOrdering Facility: [facility] Address: [address] [place] [address] Performed By: #### 5 7021-8 ####[facility]ITALNCLIA [id number] [place] [address] [place] Immature granulocytes/100 WBC (Bld) 1.5 % Normal [facility] Comment on above: Order Comment: Speci men Type: BLOOD SPECIMENOrdering Facility: [facility] Address: [address] [place] [address] Performed By: #### 5 7021-8 ####[facility]ITALNCLIA [id number] [place] [address] [place] Lymphocytes (Bld) [#/Vol] 2.19 10*3/uL Normal 1.00-4.00 [facility] Comment on above: Order Comment: Speci men Type: BLOOD SPECIMENOrdering Facility: [facility] Address: [address] [place] [address] Performed By: #### 5 7021-8 ####[facility] SPRINGFIELDLIMere [id number] [place] [address] [place] Lymphocytes/100 WBC (Bld) 23.5 % Normal [facility] Comment on above: Order Comment: Speci men Type: BLOOD SPECIMENOrdering Facility: [facility] Address: [address] [place] [address] Performed By: #### 5 7021-8 ####[facility] HOSPITALJOON [id number] [place] [address] [place] MCH (RBC) [Entitic mass] 26.6 pg Normal 26.0-34.0 [facility] Comment on above: Order Comment: Speci men Type: BLOOD SPECIMENOrdering Facility: [facility] Address: [address] [place] [address] Performed By: #### 5 7021-8 ####[facility] HOSPITALJOON [id number] [place] [address] [place] MCHC (RBC) [Mass/Vol] 31.7 g/dL Normal 30.5-36.0 [facility] Comment on above: Order Comment: Speci men Type: BLOOD SPECIMENOrdering Facility: [facility] Address: [address] [place] [address] Performed By: #### 5 7021-8 ####[facility] HOSPITALJOON [id number] [place] [address] [place] MCV (RBC) [Entitic vol] 83.9 fL Normal 80.0-100.0 [facility] Comment on above: Order Comment: Speci men Type: BLOOD SPECIMENOrdering Facility: [facility] Address: [address] [place] [address] Performed By: #### 5 7021-8 ####[facility] SPRINGFIELDMICHELLE [id number] [place] [address] [place] Monocytes (Bld) [#/Vol] 0.49 10*3/uL Normal <0.87 [facility] Comment on above: Order Comment: Speci men Type: BLOOD SPECIMENOrdering Facility: [facility] Address: [address] [place] [address] Performed By: #### 5 7021-8 ####[facility] SPRINGFIELDLIA [id number] [place] [address] [place] Monocytes/100 WBC (Bld) 5.3 % Normal [facility] Comment on above: Order Comment: Speci men Type: BLOOD SPECIMENOrdering Facility: [facility] Address: [address] [place] [address] Performed By: #### 5 7021-8 ####[facility] [id number] [place] [address] [place] Neutrophils (Bld) [#/Vol] 6.23 10*3/uL Normal 1.45-7.50 [facility] Comment on above: Order Comment: Speci men Type: BLOOD SPECIMENOrdering Facility: [facility] Address: [address] [place] [address] Performed By: #### 5 7021-8 ####[facility] [id number] [place] [address] [place] Neutrophils/100 WBC (Bld) 67.0 % Normal [facility] Comment on above: Order Comment: Speci men Type: BLOOD SPECIMENOrdering Facility: [facility] Address: [address] [place] [address] Performed By: #### 5 7021-8 ####[facility] [id number] [place] [address] [place] Nucleated RBC (Bld) [#/Vol] 10*3/uL Normal <0.01 [facility] Comment on above: Order Comment: Speci men Type: BLOOD SPECIMENOrdering Facility: [facility] Address: [address] [place] [address] Performed By: #### 5 7021-8 ####[facility] CASEYJamalNCLIA [id number] [place] [address] [place] Nucleated RBC/100 WBC (Bld) [Ratio] 0.0 /100 WBC Normal [facility] Comment on above: Order Comment: Speci men Type: BLOOD SPECIMENOrdering Facility: [facility] Address: [address] [place] [address] Performed By: #### 5 7021-8 ####[facility]ITALNCLIA [id number] [place] [address] [place] Platelet mean volume (Bld) [Entitic vol] 11.5 fL Normal 9.0-12.7 [facility] Comment on above: Order Comment: Speci men Type: BLOOD SPECIMENOrdering Facility: [facility] Address: [address] [place] [address] Performed By: #### 5 7021-8 ####[facility]ITALNCLIA [id number] [place] [address] [place] Platelets (Bld) [#/Vol] 176 10*3/uL Normal 150-400 [facility] Comment on above: Order Comment: Speci men Type: BLOOD SPECIMENOrdering Facility: [facility] Address: [address] [place] [address] Performed By: #### 5 7021-8 ####[facility]ITALNCLIA [id number] [place] [address] [place] RBC (Bld) [#/Vol] 3.84 10*6/uL Low 3.90-5.20 [facility] Comment on above: Order Comment: Speci men Type: BLOOD SPECIMENOrdering Facility: [facility] Address: [address] [place] [address] Performed By: #### 5 7021-8 ####[facility]ITALNCLIA [id number] [place] [address] [place] WBC (Bld) [#/Vol] 9.30 10*3/uL Normal 3.70-11.00 [facility] Comment on above: Order Comment: Speci men Type: BLOOD SPECIMENOrdering Facility: [facility] Address: [address] [place] [address] Performed By: #### 5 7021-8 ####[facility] [id number] [place] [address] [place] GESTATIONAL GLUCOSE SCREEN, 1-HOUR, 50 GRAM, NON-FASTINGon 04-13-2024 Glucose [Mass/Vol] 119 mg/dL Normal 74-134 [facility] Comment on above: Order Comment: Speci men Type: BLOOD SPECIMEN [facility] Address: [address] [place] [address] Result Comment: [facility] Congress of Obstetricians and Gynecologists (Mccullough/Coucarlie) guidelines state a gestational diabetes mellitus positive screen is made, in women not previously diagnosed with overt diabetes, when the 1 hr plasma glucose level is equal to or above 140 mg/dL. The [facility] [employer] and [facility] [place] recommends a 135 mg/dL cutoff. Performed By: #### 7 3752-8 #### [facility] CLIA [id number] [address] [place] [address] [place] [place] Reagin and Treponema pallidu m IgG and IgM [Interp]on 04-13-2024 T. pallidum IgG+IgM IA Ql (S) Non-Reactive Normal Nonreactive [facility] Comment on above: Order Comment: Speci men Type: BLOOD SPECIMEN Ordering Facility: [facility] Address: [address] [place] [address] Performed By: #### [id number] #### [facility] CLIA [id number] [address] [place] [address] [place] Reagin+T pallidum IgG+IgM Se rPl-Impon 04-13-2024 Reagin and Treponema pallidum IgG and IgM [Interp] Cannot exclude recent Treponemal infection if specimen collected within 7-10 days after appearance of suspect lesions or 2-3 weeks after an exposure. Clinical correlation is required. Normal [facility] Comment on above: Order Comment: Speci men Type: BLOOD SPECIMEN Ordering Facility: [facility] Address: [address] [place] [address] Performed By: #### 7 [id number] #### [facility] CLIA [id number] [address] [place] [address] [place] [address] [place] Examination level ultrasound on 03-17-2024 [facility] Radiology Study observation (narrative) [facility] Examination level ultrasound on 02-17-2024 Indication [...] 12 oz EFW by: Hadlock (HC-AC-FL) Extended Human Machine Interface Engineer 5.9 mm CM 2.1 mm <1% Nicolaides [...] normal LVOT view: normal 3-vessel view: normal 8-xnhtoc-skarxea view: normal Heart / Thorax Situs: situs [...] Performed By: Yue Milan RDMS Read By: Vilma Farrell M.D. MATERNAL MEDICINE [facility] Radiology Study observation (narrative) [facility] CBC panel Auto (Bld)on 12-31 Erythrocyte distribution width (RBC) [Ratio] 14.2 % 11.5 - 15.0 % [facility] Hematocrit (Bld) [Volume fraction] 37.5 % 36.0 - 46.0 % [facility] Hemoglobin (Bld) [Mass/Vol] 12.4 g/dL 11.5 - 15.5 g/dL [facility] Interpretation and review of laboratory results Normal [facility] MCH (RBC) [Entitic mass] 28.1 pg 26.0 - 34.0 pg [facility] MCHC (RBC) [Mass/Vol] 33.1 g/dL 30.5 - 36.0 g/dL [facility] MCV (RBC) [Entitic vol] 85.0 fL 80.0 - 100.0 fL [facility] Nucleated RBC (Bld) [#/Vol] NINF [facility] Platelet mean volume (Bld) [Entitic vol] 12.1 fL 9.0 - 12.7 fL [facility] Platelets (Bld) [#/Vol] 181 10*3/uL [facility] RBC (Bld) [#/Vol] 4.41 10*6/uL 3.90 - 5.2 0 m/uL [facility] WBC (Bld) [#/Vol] 9.21 10*3/uL [facility] nuchal translucency me asured by on 01-01-2024 Indication First trimester anatomic survey IUFD 26 weeks, Obesity, BMI >30 Impression REMOTE READ The patient is referred for a first trimester anatomy scan including nuchal translucency measurement as clinically indicated. - Single, live, intrauterine . - [place] rump length measurement is consistent with the [...] view: normal 4-chamber view with color: normal 1-tpcfct-xpomxkb view: normal Abdominal cord insertion: normal Stomach: [...] By: Khushboo Easley, THEODORE, RVT Read By: Vilma Farrell M.D. MATERNAL MEDICINE [facility] Radiology Study observation (narrative) [facility] C. trachomatis+N. gonorrhoea e DNA OFELIA+probe Ql (Unsp spec)on 11-14-2023 C. trachomatis rRNA OFELIA+probe Ql (Unsp spec) Negative Negative for Chlamydia trachomatis by amplificaton [facility] Interpretation and review of laboratory results Normal [facility] N. gonorrhoeae rRNA OFELIA+probe Ql (Unsp spec) Negative Negative for Neisseria gonorrhoeae by amplification [facility] POC AUDIOLOGY ASSISTANT ULTRASOUNDon 11-13-19 Indication Confirmation of intrauterine . Confirmation of cardiac activity Impression 1. Single, live, intrauterine . 2. An intrauterine gestational sac with a yolk sac and pole are present. 3. [place] rump length measurement is consistent with the [...] Sharda Valero CNP MATERNAL MEDICINE [facility] Radiology Study observation (narrative) [facility] Absolute lymphocyte countOrd ered By: Kuldeep Vanegas on 08-10-2023 Lymphocytes Auto (Unsp spec) [#/Vol] 1.57 10*3/uL 0.83-4.51 [facility] Automated lymphocyte count a s percentage of total leukocytesOrdered By: Kuldeep Vanegas on 08-10-2023 Lymphocytes/100 WBC Auto (Unsp spec) 32.8 % 19-41 [facility] Basophil percentageOrdered B y: Kuldeep Vanegas on 08-10-2023 Basophil percentage 5-10 SEEN /hpf 0-5 [facility] Basophils/100 WBC (Bld) 0.6 % 0-1 [facility] Bilirubin [Mass/Vol] 0.30 mg/dL 0.20-1.00 [facility] Comment on above: For patients on eltr ombopag therapy, use of Dimension [place] TBIL is not recommended. Chloride [Moles/Vol] 112 mmol/L 98-107 [facility] Eosinophils/100 WBC (Bld) 6.1 % 0-5 [facility] Glucose [Mass/Vol] 85 mg/dL 74-106 [facility] Hemoglobin (Bld) [Mass/Vol] 12.1 g/dL 12.0-15.0 [facility] Monocytes/100 WBC (Bld) 9.4 % 0-10 [facility] Neutrophils (Bld) [#/Vol] 2.4 10*3/uL 2.0-7.7 [facility] Neutrophils/100 WBC (Bld) 50.9 % 47-70 [facility] Potassium [Moles/Vol] 3.8 mmol/L 3.5-5.1 [facility] Protein [Mass/Vol] 7.0 g/dL 6.4-8.2 [facility] Sodium [Moles/Vol] 139 mmol/L 136-145 [facility] WBC (Bld) [#/Vol] 4.8 10*3/uL 4.4-11.0 [facility] Bilirubin Test strip Ql (U)O rdered By: Kuldeep Vanegas on 08-10-2023 Bilirubin Ql (U) Negative Negative [facility] Determination of erythrocyte mean corpuscular volume (MCV)Ordered By: Kuldeep Vanegas on 08-10-2023 MCV (RBC) [Entitic vol] 85.3 fL 81-99 [facility] Erythrocyte distribution wid th ratioOrdered By: Kuldeep Vanegas on 08-10-2023 Erythrocyte distribution width (RBC) [Ratio] 13.1 % 11.6-14.6 [facility] Erythrocyte distribution wid th standard deviationOrdered By: Kuldeep Vanegas on 08-10-2023 Erythrocyte distribution width (RBC) [Entitic vol] 39.9 fL 35.1-43.9 [facility] Hematocrit Auto (Bld) [Volum e fraction]Ordered By: Kuldeep Vanegas on 08-10-2023 Hematocrit (Bld) [Volume fraction] 37.7 % 37-47 [facility] Immature granulocytes/100 WB C Auto (Bld)Ordered By: Kuldeep Vanegas on 08-10-2023 Immature granulocytes/100 WBC (Bld) 0.200 % 0.0-0.9 [facility] Comment on above: IG% - Immature Granu locytes (promyelocytes, myelocytes and metamyelocytes) > 1% indicates that a LEFT SHIFT is Present. Ketones Test strip Ql (U)Ord ered By: Kuldeep Vanegas on 08-10-2023 Ketones Ql (U) Negative Negative [facility] Laboratory - Chemistry and C hemistry - challengeOrdered By: Kuldeep Vanegas on 08-10-2023 HCG ( test) Ql (U) Negative [facility] Comment on above: Very dilute urine sp ecimens, as indicated by a low specificgravity, may not contain passenger service representative levels of hCG. If is still suspected, a first morning urinespecimen should be collected 48 hours later and tested. Albumin/Globulin [Mass ratio] 0.9 {ratio} 0.9-2.4 [facility] ALP [Catalytic activity/Vol] 104 U/L 45-117 [facility] ALT [Catalytic activity/Vol] 46 U/L 13-56 [facility] CO2 [Moles/Vol] 24.0 mmol/L 21.0-32.0 [facility] Globulin (S) [Mass/Vol] 3.7 g/dL 2.2-4.2 [facility] Urea nitrogen/Creatinine [Mass ratio] 15.1 mg/mg 10-20 [facility] Laboratory - Hematology and Cell countsOrdered By: Kuldeep Vanegas on 02-18-2024 MCH (RBC) [Entitic mass] 27.4 pg 27.0-32.0 [facility] MCHC (RBC) [Mass/Vol] 32.1 g/dL 32-36 [facility] Nucleated RBC/100 WBC (Bld) [Ratio] 0 % 0-5 [facility] Platelet mean volume (Bld) [Entitic vol] 12.2 fL 6.2-12.0 [facility] Platelets (Bld) [#/Vol] 187 10*3/uL 150-450 [facility] - Microbiology an d Antimicrobial susceptibilityOrdered By: Kuldeep Vanegas on 08-10-2023 SARS-CoV-2 (COVID-19) RNA OFELIA+probe Ql (Unsp spec) [facility] Mucus LM Ql (Urine sed)Order ed By: Kuldeep Vanegas on 08-10-2023 Mucus Ql (Urine sed) 0 SEEN /hpf [facility] Nitrite Test strip Ql (U)Ord ered By: Kuldeep Vanegas on 08-10-2023 Nitrite Ql (U) Negative Negative [facility] No Panel InformationOrdered By: Kuldeep Vanegas on 08-10-2023 Urine RBC 0 SEEN /hpf 0-5 [facility] Estimated Creatinine Clearance Calc 155.99 ml/min [facility] Estimated GFR (MDRD) Amer 156 mL/min >60 [facility] Comment on above: GFR Calc Estimated GFR (MDRD) Non-Af Amer 129 mL/min >60 [facility] Comment on above: Non- GFR Calc Protein Test strip Ql (U)Ord ered By: Kuldeep Vanegas on 08-10-2023 Protein Ql (U) Negative Negative [facility] RBC Auto (Bld) [#/Vol]Ordere d By: Kuldeep Vanegas on 08-10-2023 RBC (Bld) [#/Vol] 4.42 10*6/uL 4.2-5.4 [facility] Serum or plasma calcium roopa urement (mass/volume)Ordered By: Kuldeep Vanegas on 08-10-2023 Calcium [Mass/Vol] 8.7 mg/dL 8.5-10.1 [facility] Serum or plasma creatinine m easurement (mass/volume)Ordered By: Kuldeep Vanegas on 08-10-2023 Creatinine [Mass/Vol] 0.60 mg/dL 0.55-1.02 [facility] Comment on above: The validity of the calculated GFR & GFRAA in patients over 70 years has not been determined. Clinical correlation is essential. Serum or plasma urea nitroge n measurement (mass/volume)Ordered By: Kuldeep Vanegas on 08-10-2023 Urea nitrogen [Mass/Vol] 9 mg/dL 7-18 [facility] Squamous epithelial cells de tection in urine sediment by light microscopyOrdered By: Kuldeep Vanegas on 08-10-2023 Epithelial cells.squamous LM Ql (Urine sed) 10-25 SEEN /hpf 5-10 [facility] Thin prep Papanicolaou smear with manual screeningOrdered By: Kuldeep Vanegas on 08-10-2023 Thin prep Papanicolaou smear with manual screening 3.3 g/dL 3.2-5.0 [facility] Thin prep Papanicolaou smear with manual screening 25 U/L 15-37 [facility] Thin prep Papanicolaou smear with manual screening 3 5-15 [facility] Urine blood detectionOrdered By: Kuldeep Vanegas on 08-10-2023 RBC Ql (U) Negative Negative [facility] Urine clarityOrdered By: Iker Vanegas on 08-10-2023 Clarity (U) Sl. Cloudy Clear [facility] Urine color determinationOrd ered By: Kuldeep Vanegas on 08-10-2023 Color (U) Yellow Yellow [facility] Urine glucose detectionOrder ed By: Kuldeep Vanegas on 08-10-2023 Glucose Ql (U) Normal mg/dl Normal [facility] Urine leukocyte esterase det ection by dipstickOrdered By: Kuldeep Vanegas on 08-10-2023 Leukocyte esterase Test strip Ql (U) 500 /ul Negative [facility] Urine pHOrdered By: Kuldeep patel on 08-10-2023 pH (U) 6.0 [pH] 5.0 - 8.0 [facility] Urine sediment bacteria coun t by microscopy (number/high power field)Ordered By: Kuldeep Vanegas on 08-10-2023 Bacteria LM.HPF (Urine sed) [#/Area] 3 /[HPF] None Seen [facility] Urine specific gravity measu rementOrdered By: Kuldeep Vanegas on 08-10-2023 Specific gravity (U) [Rel density] 1.015 1.002-1.030 [facility] Urine urobilinogen measureme ntOrdered By: Kuldeep Vanegas on 08-10-2023 Urobilinogen Ql (U) 1 mg/dl Normal [facility] Absolute lymphocyte countOrd ered By: David Mckinney on 07-04-2023 Lymphocytes Auto (Unsp spec) [#/Vol] 2.38 10*3/uL 0.83-4.51 [facility] Basophil percentageOrdered B y: David Mckinney on 07-04-2023 Basophil percentage 5-10 SEEN /hpf 0-5 [facility] Basophils/100 WBC (Bld) 0.8 % 0-1 [facility] Eosinophils/100 WBC (Bld) 7.3 % 0-5 [facility] Neutrophils (Bld) [#/Vol] 6.4 10*3/uL 2.0-7.7 [facility] Neutrophils/100 WBC (Bld) 63.4 % 47-70 [facility] WBC (Bld) [#/Vol] 10.1 10*3/uL 4.4-11.0 [facility] Beta hCG serum qualOrdered B y: David Mckinney on 07-04-2023 Beta HCG ( test) Ql Negative [facility] Bilirubin Test strip Ql (U)O rdered By: David Mckinney on 07-04-2023 Bilirubin Ql (U) Negative Negative [facility] Blood erythrocytes count (nu mber/volume)Ordered By: David Mckinney on 07-04-2023 RBC (Bld) [#/Vol] 4.70 10*6/uL 4.2-5.4 [facility] Blood hemoglobin measurement (mass/volume)Ordered By: David Mckinney on 07-04-2023 Hemoglobin (Bld) [Mass/Vol] 13.1 g/dL 12.0-15.0 [facility] Blood lymphocytes/100 leukoc ytesOrdered By: David Mckinney on 07-04-2023 Lymphocytes/100 WBC (Bld) 23.5 % 19-41 [facility] Blood monocytes/100 leukocyt esOrdered By: David Mckinney on 07-04-2023 Monocytes/100 WBC (Bld) 4.6 % 0-10 [facility] Blood platelet mean volumeOr dered By: David Mckinney on 07-04-2023 Platelet mean volume (Bld) [Entitic vol] 12.6 fL 6.2-12.0 [facility] Culture, urineOrdered By: Davidson Mckinney on 07-04-2023 Bacteria identified Cx Nom (U) Escherichia coli [facility] Determination of erythrocyte mean corpuscular volume (MCV)Ordered By: David Mckinney on 07-04-2023 MCV (RBC) [Entitic vol] 88.3 fL 81-99 [facility] Hematocrit Auto (Bld) [Volum e fraction]Ordered By: David Mckinney on 07-04-2023 Hematocrit (Bld) [Volume fraction] 41.5 % 37-47 [facility] Ketones Test strip Ql (U)Ord ered By: David Mckinney on 07-04-2023 Ketones Ql (U) Negative Negative [facility] Laboratory - Hematology and Cell countsOrdered By: David Mckinney on 07-04-2023 Erythrocyte distribution width (RBC) [Entitic vol] 40.8 fL 35.1-43.9 [facility] Erythrocyte distribution width (RBC) [Ratio] 12.5 % 11.6-14.6 [facility] Immature granulocytes/100 WBC (Bld) 0.400 % 0.0-0.9 [facility] Comment on above: IG% - Immature Granu locytes (promyelocytes, myelocytes and metamyelocytes) > 1% indicates that a LEFT SHIFT is Present. MCH (RBC) [Entitic mass] 27.9 pg 27.0-32.0 [facility] Nucleated RBC/100 WBC (Bld) [Ratio] 0 % 0-5 [facility] MCHC Auto (RBC) [Mass/Vol]Or dered By: David Mckinney on 07-04-2023 MCHC (RBC) [Mass/Vol] 31.6 g/dL 32-36 [facility] Mucus LM Ql (Urine sed)Order ed By: David Mckinney on 07-04-2023 Mucus Ql (Urine sed) 0 SEEN /hpf [facility] Nitrite Test strip Ql (U)Ord ered By: David Mckinney on 07-04-2023 Nitrite Ql (U) Positive Negative [facility] Platelets bldOrdered By: Maya Mckinney on 07-04-2023 Platelets (Bld) [#/Vol] 218 10*3/uL 150-450 [facility] Protein Test strip Ql (U)Ord ered By: David Mckinney on 07-04-2023 Protein Ql (U) Negative Negative [facility] Serum or plasma progesterone measurement (mass/volume)Ordered By: David Mckinney on 07-04-2023 Progesterone [Mass/Vol] 2.17 ng/mL See Comment [facility] Comment on above: Progesterone Referen ce Table: [...] Ql (Urine sed) 5-10 SEEN /hpf 5-10 [facility] Urine blood detectionOrdered By: David Mckinney on 07-04-2023 RBC Ql (U) 10 /ul Negative [facility] RBC Ql (U) 0 SEEN /hpf 0-5 [facility] Urine clarityOrdered By: Maya Mckinney on 07-04-2023 Clarity (U) Cloudy Clear [facility] Urine color determinationOrd ered By: David Mckinney on 07-04-2023 Color (U) Yellow Yellow [facility] Urine glucose detectionOrder ed By: David Mckinney on 07-04-2023 Glucose Ql (U) Normal mg/dl Normal [facility] Urine leukocyte esterase det ection by dipstickOrdered By: David Mckinney on 07-04-2023 Leukocyte esterase Test strip Ql (U) 100 /ul Negative [facility] Urine pHOrdered By: aDvid aviles on 07-04-2023 pH (U) 6.0 [pH] 5.0 - 8.0 [facility] Urine sediment bacteria coun t by microscopy (number/high power field)Ordered By: David Mckinney on 07-04-2023 Bacteria LM.HPF (Urine sed) [#/Area] 3 /[HPF] None Seen [facility] Urine specific gravity measu rementOrdered By: David Mckinney on 07-04-2023 Specific gravity (U) [Rel density] 1.015 1.002-1.030 [facility] Urobilinogen Auto test strip Ql (U)Ordered By: David Mckinney on 07-04-2023 Urobilinogen Ql (U) Normal mg/dl Normal [facility] Beta hCG serum qualOrdered B y: Alex Fridadariana on 06-10-2023 Beta HCG ( test) Ql Negative [facility] Influenza virus A and B and SARS-CoV-2 (COVID-19) Ag panel - Upper respiratory specimOrdered By: Chantal Perez on 05-11-2023 SARS-CoV-2 (COVID-19) RNA OFELIA+probe Ql (Resp) [facility] Upper respiratory specimen i nfluenza A virus, influenza B virus, and severe acute respiratory syndromOrdered By: Chantal Perez on 05-11-2023 Upper respiratory specimen influenza A virus, influenza B virus, and severe acute respiratory syndrom [facility] Absolute lymphocyte countOrd ered By: David Mckinney on 05-01-2023 Lymphocytes Auto (Unsp spec) [#/Vol] 2.12 10*3/uL 0.83-4.51 [facility] Basophil percentageOrdered B y: David Mckinney on 05-01-2023 Basophils/100 WBC (Bld) 0.9 % 0-1 [facility] Bilirubin [Mass/Vol] 0.30 mg/dL 0.20-1.00 [facility] Comment on above: For patients on eltr ombopag therapy, use of Dimension [place] TBIL is not recommended. Chloride [Moles/Vol] 106 mmol/L 98-107 [facility] Eosinophils/100 WBC (Bld) 5.4 % 0-5 [facility] Glucose [Mass/Vol] 90 mg/dL 74-106 [facility] Neutrophils (Bld) [#/Vol] 4.3 10*3/uL 2.0-7.7 [facility] Neutrophils/100 WBC (Bld) 58.5 % 47-70 [facility] Potassium [Moles/Vol] 3.7 mmol/L 3.5-5.1 [facility] Protein [Mass/Vol] 7.8 g/dL 6.4-8.2 [facility] Sodium [Moles/Vol] 138 mmol/L 136-145 [facility] WBC (Bld) [#/Vol] 7.4 10*3/uL 4.4-11.0 [facility] Blood erythrocytes count (nu mber/volume)Ordered By: David Mckinney on 05-01-2023 RBC (Bld) [#/Vol] 4.73 10*6/uL 4.2-5.4 [facility] Blood hemoglobin measurement (mass/volume)Ordered By: David Mckinney on 05-01-2023 Hemoglobin (Bld) [Mass/Vol] 13.1 g/dL 12.0-15.0 [facility] Blood lymphocytes/100 leukoc ytesOrdered By: David Mckinney on 05-01-2023 Lymphocytes/100 WBC (Bld) 28.7 % 19-41 [facility] Blood monocytes/100 leukocyt esOrdered By: David Mckinney on 05-01-2023 Monocytes/100 WBC (Bld) 6.2 % 0-10 [facility] Blood platelet mean volumeOr dered By: David Mckinney on 05-01-2023 Platelet mean volume (Bld) [Entitic vol] 13.0 fL 6.2-12.0 [facility] Determination of erythrocyte mean corpuscular volume (MCV)Ordered By: David Mckinney on 05-01-2023 MCV (RBC) [Entitic vol] 88.8 fL 81-99 [facility] Hematocrit Auto (Bld) [Volum e fraction]Ordered By: David Mckinney on 05-01-2023 Hematocrit (Bld) [Volume fraction] 42.0 % 37-47 [facility] Laboratory - Chemistry and C hemistry - challengeOrdered By: David Mckinney on 05-01-2023 ALP [Catalytic activity/Vol] 95 U/L 45-117 [facility] ALT [Catalytic activity/Vol] 33 U/L 13-56 [facility] CO2 [Moles/Vol] 26.0 mmol/L 21.0-32.0 [facility] Globulin (S) [Mass/Vol] 3.9 g/dL 2.2-4.2 [facility] Urea nitrogen/Creatinine [Mass ratio] 25.6 mg/mg 10-20 [facility] Laboratory - Hematology and Cell countsOrdered By: David Mckinney on 05-01-2023 Erythrocyte distribution width (RBC) [Entitic vol] 41.9 fL 35.1-43.9 [facility] Erythrocyte distribution width (RBC) [Ratio] 12.8 % 11.6-14.6 [facility] Immature granulocytes/100 WBC (Bld) 0.300 % 0.0-0.9 [facility] Comment on above: IG% - Immature Granu locytes (promyelocytes, myelocytes and metamyelocytes) > 1% indicates that a LEFT SHIFT is Present. MCH (RBC) [Entitic mass] 27.7 pg 27.0-32.0 [facility] Nucleated RBC/100 WBC (Bld) [Ratio] 0 % 0-5 [facility] MCHC Auto (RBC) [Mass/Vol]Or dered By: David Mckinney on 05-01-2023 MCHC (RBC) [Mass/Vol] 31.2 g/dL 32-36 [facility] No Panel InformationOrdered By: David Mckinney on 05-01-2023 Estimated GFR (MDRD) Amer 129 mL/min >60 [facility] Comment on above: GFR Calc Estimated GFR (MDRD) Non-Af Amer 107 mL/min >60 [facility] Comment on above: Non- GFR Calc Thyroid Stimulating Hormone (TSH) 0.63 uIU/mL 0.358-3.74 [facility] Platelets bldOrdered By: Maya Mckinney on 05-01-2023 Platelets (Bld) [#/Vol] 215 10*3/uL 150-450 [facility] Serum or plasma albumin roopa urement (mass/volume)Ordered By: David Mckinney on 05-01-2023 Albumin [Mass/Vol] 3.9 g/dL 3.2-5.0 [facility] Serum or plasma albumin/glob ulin mass ratioOrdered By: David Mckinney on 05-01-2023 Albumin/Globulin [Mass ratio] 1.0 {ratio} 0.9-2.4 [facility] Serum or plasma calcium roopa urement (mass/volume)Ordered By: David Mckinney on 05-01-2023 Calcium [Mass/Vol] 8.8 mg/dL 8.5-10.1 [facility] Serum or plasma creatinine m easurement (mass/volume)Ordered By: David Mckinney on 05-01-2023 Creatinine [Mass/Vol] 0.70 mg/dL 0.55-1.02 [facility] Comment on above: The validity of the calculated GFR & GFRAA in patients over 70 years has not been determined. Clinical correlation is essential. Serum or plasma prolactin me asurement (mass/volume)Ordered By: David Mckinney on 05-01-2023 Prolactin [Mass/Vol] 17.6 ng/mL [facility] Comment on above: NORMAL REFERENCE RAN GES FEMALE NON- 2.2 - 30.3 ng/mL 8.1 - 347.6 ng/mL POST-MENOPAUSAL 0.7 - 31.5 ng/mL MALE 2.5 - 17.4 ng/mL Serum or plasma urea nitroge n measurement (mass/volume)Ordered By: David Mckinney on 05-01-2023 Urea nitrogen [Mass/Vol] 18 mg/dL 7-18 [facility] Thin prep Papanicolaou smear with manual screeningOrdered By: David Mckinney on 05-01-2023 Thin prep Papanicolaou smear with manual screening 12 U/L 15-37 [facility] Thin prep Papanicolaou smear with manual screening 6 5-15 [facility] Absolute lymphocyte countOrd ered By: David Mckinney on 03-12-2023 Lymphocytes Auto (Unsp spec) [#/Vol] 1.89 10*3/uL 0.83-4.51 [facility] Alternaria alternata IgE ser umOrdered By: David Mckinney on 03-12-2023 A. alternata IgE Qn (S) <0.10 kU/L Class 0 [facility] A. alternata IgE Qn (S) Not Reportable [facility] Basophil percentageOrdered B y: David Mckinney on 03-12-2023 Basophils/100 WBC (Bld) 0.7 % 0-1 [facility] Eosinophils/100 WBC (Bld) 4.7 % 0-5 [facility] Neutrophils (Bld) [#/Vol] 3.4 10*3/uL 2.0-7.7 [facility] Neutrophils/100 WBC (Bld) 56.4 % 47-70 [facility] WBC (Bld) [#/Vol] 6.0 10*3/uL [facility]4-[facility] count (nu mber/volume)Ordered By: David Mckinney on 03-12-2023 RBC (Bld) [#/Vol] 4.94 10*6/uL 4.2-5.4 [facility] Blood hemoglobin measurement (mass/volume)Ordered By: David Mckinney on 03-12-2023 Hemoglobin (Bld) [Mass/Vol] 13.3 g/dL 12.0-15.0 [facility] Blood lymphocytes/100 leukoc ytesOrdered By: David Mckinney on 03-12-2023 Lymphocytes/100 WBC (Bld) 31.8 % 19-41 [facility] Blood monocytes/100 leukocyt esOrdered By: David Mckinney on 03-12-2023 Monocytes/100 WBC (Bld) 6.2 % 0-10 [facility] Blood platelet mean volumeOr dered By: David Mckinney on 03-12-2023 Platelet mean volume (Bld) [Entitic vol] 12.7 fL 6.2-12.0 [facility] Chocolate RASTOrdered By: Davidson Mckinney on 03-12-2023 Chocolate IgE Qn (S) <0.10 kU/L Class 0 [facility] Comment on above: Effective March 24, 2023 [id number] Allergen Profile, BasicFood be made non-orderable. [facility] offers [id number](14). Determination of erythrocyte mean corpuscular volume (MCV)Ordered By: David Mckinney on 03-12-2023 MCV (RBC) [Entitic vol] 86.0 fL 81-99 [facility] Hematocrit Auto (Bld) [Volum e fraction]Ordered By: David Mckinney on 03-12-2023 Hematocrit (Bld) [Volume fraction] 42.5 % 37-47 [facility] Laboratory - AllergyOrdered By: David Mckinney on 03-12-2023 Sweet gum IgE RAST class (S) <0.10 kU/L Class 0 [facility] Laboratory - Hematology and Cell countsOrdered By: David Mckinney on 03-12-2023 Erythrocyte distribution width (RBC) [Entitic vol] 40.7 fL 35.1-43.9 [facility] Erythrocyte distribution width (RBC) [Ratio] 13.1 % 11.6-14.6 [facility] Immature granulocytes/100 WBC (Bld) 0.200 % 0.0-0.9 [facility] Comment on above: IG% - Immature Granu locytes (promyelocytes, myelocytes and metamyelocytes) > 1% indicates that a LEFT SHIFT is Present. MCH (RBC) [Entitic mass] 26.9 pg 27.0-32.0 [facility] Nucleated RBC/100 WBC (Bld) [Ratio] 0 % 0-5 [facility] Laboratory - Miscellaneous t estsOrdered By: David Mckinney on 03-12-2023 Service comment (Unsp spec) [Interp] Comment . [facility] Comment on above: Levels of Specific I [...] 03-12-2023 MCHC (RBC) [Mass/Vol] 31.3 g/dL 32-36 [facility] No Panel InformationOrdered By: David Mckinney on 03-12-2023 Aspergillus fumigatus Allergen <0.10 kU/L Class 0 [facility] Common Ragweed (Short) Allergen <0.10 kU/L Class 0 [facility] East Timorese Plantain Allergen (RAST) <0.10 kU/L Class 0 [facility] Maple (Lupton) Allergen IgE Ab 0.27 kU/L Class 0/I [facility] Seafood Group Allergens (RAST) Negative . [facility] Comment on above: Allergens in this mi x are: Blue mussel Fish [place] Shrimp TunaEffective March 24, 2023 [id number] Food Mix(Seafoods) will be made non-orderable. [facility] [id number] Allergens(5). Datil Tree Allergen <0.10 kU/L Class 0 [facility] Cat Hair Allergen Not Reportable [facility] Immunoglobulin E See comment [facility] Comment on above: TEST RESULT LIMITSCl ass Description: Levels of Specific IgE Class Description of Class ----- < 0.10 0 Negative 0.10 - 0.31 0/I Equivocal/Low 0.32 - 0.55 I Low 0.56 - 1.40 II Moderate 1.41 - 3.90 III High 3.91 - 19.00 IV Very High19.01 - 100.00 V Very High >100.00 Very YlsgW482-UzW D pteronyssinus <0.10 kU/L Class 4W657-HsT D farinae <0.10 kU/L Class 4Y440-OjR Cat Dander <0.10 kU/L Class 7E535-FmL Dog Dander <0.10 kU/L Class 6R051-WjZ Bermuda Grass 0.11 Abnormal kU/L Class 0/GV440-OcS [place] Grass, Perennial <0.10 kU/L Class 0Y887-BlF Reece Grass 0.10 Abnormal kU/L Class 0/AX419-HeB Bahia Grass <0.10 kU/L Class 0*M433-JyZ Cockroach, Pakistani <0.10 kU/L Class 0A824-IaG Penicillium chrysogen <0.10 kU/L Class 9W311-ShK Cladosporium herbarum <0.10 kU/L Class 0Z620-QhJ Aspergillus fumigatus <0.10 kU/L Class 5H032-OkE Mucor racemosus <0.10 kU/L Class 5D552-YhY Alternaria alternata <0.10 kU/L Class 0S645-NjU Stemphylium herbarum <0.10 kU/L Class 0J699-SgY Elm, Pakistani 0.27 Abnormal kU/L Class 0/ZN672-JsL Eucalyptus <0.10 kU/L Class 6E658-RxJ Maple/[place] 0.37 Abnormal kU/L Class BT374-BrX [place], Arabic <0.10 kU/L Class 0*W097-RlM Pepper Tree 0.20 Abnormal kU/L Class 0/I*B411-QsA [place], Live/Radha <0.10 kU/L Class 9R745-BvC Privet, Common <0.10 kU/L Class 0*H814-XoO Bayberry/Sweet Gale <0.10 kU/L Class 0B031-JsA Palm, Batista <0.10 kU/L Class 5G711-YhS Ragweed, Short 0.11 Abnormal kU/L Class 0/FH717-WdN Plantain, East Timorese <0.10 kU/L Class 9C458-BzG [place] <0.10 kU/L Class 6O970-VpJ Sheep [place] <0.10 kU/L Class 0*T698-TvY Fennel, Dog <0.10 kU/L Class 0Tests with asterisk (*) were developed and had performancecharacteristics determined by [facility]. These tests have not been cleared or approved by the U.S. Food and Drug Administration.The FDA has determined that such clearance or approval is notnecessary. These tests are used for clinical purposes. These tests should not be regarded as investigational or for research. ____ TESTING PERFORMED AT [facility]. ORIGINAL REPORT ON FILE IN LAB CONTAINS ADDITIONAL TEST SITE INFORMATION. Mouse Urine Allergen IgE Antibody Not Reportable [facility] Platelets bldOrdered By: Maya Mckinney on 03-12-2023 Platelets (Bld) [#/Vol] 183 10*3/uL 150-450 [facility] Rough pigweed specific IgE a ntibody assayOrdered By: David Mckinney on 03-12-2023 Rough Pigweed IgE Qn (S) <0.10 kU/L Class 0 [facility] Serum Aspergillus fumigatus IgE antibody assay (units/volume)Ordered By: David Mckinney on 03-12-2023 A. fumigatus IgE Qn (S) Not Reportable [facility] Serum Bermuda grass IgE anti body assay (units/volume)Ordered By: David Mckinney on 03-12-2023 Bermuda grass IgE Qn (S) 0.12 kU/L Class 0/I [facility] Bermuda grass IgE Qn (S) Not Reportable [facility] Serum Cladosporium herbarum IgE antibody assay (units/volume)Ordered By: David Mckinney on 03-12-2023 C. herbarum IgE Qn (S) <0.10 kU/L Class 0 [facility] C. herbarum IgE Qn (S) Not Reportable [facility] Serum Dermatophagoides farin ae specific IgE antibody assay (units/volume)Ordered By: David Mckinney on 03-12-2023 Pakistani house dust mite IgE Qn (S) <0.10 kU/L Class 0 [facility] Serum house dust mi te IgE antibody assay (units/volume)Ordered By: David Mckinney on 03-12-2023 house dust mite IgE Qn (S) <0.10 kU/L Class 0 [facility] house dust mite IgE Qn (S) Not Reportable [facility] Serum Reece grass IgE anti body assay (units/volume)Ordered By: David Mckinney on 03-12-2023 Reece grass IgE Qn (S) 0.12 kU/L Class 0/I [facility] Serum [place] blue grass Ig E antibody assay (units/volume)Ordered By: David Mckinney on 03-12-2023 [place] blue grass IgE Qn (S) <0.10 kU/L Class 0 [facility] Serum Mucor racemosus IgE an tibody assay (units/volume)Ordered By: David Mckinney on 03-12-2023 Mucor racemosus IgE Qn (S) <0.10 kU/L Class 0 [facility] Serum Penicillium notatum Ig E antibody assay (units/volume)Ordered By: David Mckinney on 03-12-2023 P. notatum IgE Qn (S) <0.10 kU/L Class 0 [facility] Serum Periplaneta americana IgE antibody assay (units/volume)Ordered By: David Mckinney on 03-12-2023 Pakistani Cockroach IgE Qn (S) <0.10 kU/L Class 0 [facility] Serum Ugandan thistle specif ic IgE antibody assayOrdered By: David Mckinney on 03-12-2023 Saltwort IgE Qn (S) Not Reportable [facility] Serum bahia grass IgE antibo dy assay (units/volume)Ordered By: David Mckinney on 03-12-2023 Bahia grass IgE Qn (S) <0.10 kU/L Class 0 [facility] Serum beef IgE antibody assa y (units/volume)Ordered By: David Mckinney on 03-12-2023 Beef IgE Qn (S) <0.10 kU/L Class 0 [facility] Serum birch specific IgE ant ibody assayOrdered By: David Mckinney on 03-12-2023 Silver Birch IgE Qn (S) Not Reportable [facility] Serum black walnut IgE antib pinky assay (units/volume)Ordered By: David Mckinney on 03-12-2023 Black Rives IgE Qn (S) 0.72 kU/L Class II [facility] Comment on above: Performed at: [address] [id number] Director: Jordan Chew MD, Phone: [phone] Black Rives IgE Qn (S) Not Reportable [facility] Serum cat dander IgE antibod y assay (units/volume)Ordered By: David Mckinney on 03-12-2023 Cat dander IgE Qn (S) <0.10 kU/L Class 0 [facility] Serum corn IgE antibody assa y (units/volume)Ordered By: David Mckinney on 03-12-2023 [place] IgE Qn (S) 0.60 kU/L Class II [facility] Serum cottonwood IgE antibod y assay (units/volume)Ordered By: David Mckinney on 03-12-2023 [place] IgE Qn (S) Not Reportable [facility] Serum cow milk IgE antibody assay (units/volume)Ordered By: David Mckinney on 03-12-2023 Cow milk IgE Qn (S) <0.10 kU/L Class 0 [facility] Serum dog epithelium IgE ant ibody assay (units/volume)Ordered By: David Mckinney on 03-12-2023 Dog epithelium IgE Qn (S) <0.10 kU/L Class 0 [facility] Serum hazelnut pollen IgE an tibody assay (units/volume)Ordered By: David Mckinney on 03-12-2023 Hazelnut Pollen IgE Qn (S) <0.10 kU/L Class 0 [facility] Serum mountain cedar specifi c IgE antibody assayOrdered By: David Mckinney on 03-12-2023 Mountain Juniper IgE Qn (S) <0.10 kU/L Class 0 [facility] Serum mugwort IgE antibody a ssay (units/volume)Ordered By: David Mckinney on 03-12-2023 Mugwort IgE Qn (S) <0.10 kU/L Class 0 [facility] Serum nettle IgE antibody as say (units/volume)Ordered By: David Mckinney on 03-12-2023 Nettle IgE Qn (S) <0.10 kU/L Class 0 [facility] Serum peanut IgE antibody as say (units/volume)Ordered By: David Mckinney on 03-12-2023 Peanut IgE Qn (S) 0.77 kU/L Class II [facility] Serum pecan or hickory nut I gE antibody assay (units/volume)Ordered By: David Mckinney on 03-12-2023 Pecan or [place] Nut IgE Qn (S) Not Reportable [facility] Serum pork IgE antibody assa y (units/volume)Ordered By: David Mckinney on 03-12-2023 Pork IgE Qn (S) <0.10 kU/L Class 0 [facility] Serum sheep sorrel IgE antib pinky assay (units/volume)Ordered By: David Mckinney on 03-12-2023 Sheep [place] IgE Qn (S) <0.10 kU/L Class 0 [facility] Sheep [place] IgE Qn (S) Not Reportable [facility] Serum soybean IgE antibody a ssay (units/volume)Ordered By: David Mckinney on 03-12-2023 Soybean IgE Qn (S) <0.10 kU/L Class 0 [facility] Serum prosper IgE antibody a ssay (units/volume)Ordered By: David Mckinney on 03-12-2023 Prosper IgE Qn (S) Not Reportable [facility] Serum wheat IgE antibody ass ay (units/volume)Ordered By: David Mckinney on 03-12-2023 Wheat IgE Qn (S) 0.16 kU/L Class 0/I [facility] Serum white deandre IgE antibody assay (units/volume)Ordered By: David Mckinney on 03-12-2023 White Deandre IgE Qn (S) Not Reportable [facility] Serum white elm IgE antibody assay (units/volume)Ordered By: David Mckinney on 03-12-2023 White Elm IgE Qn (S) 0.27 kU/L Class 0/I [facility] White Elm IgE Qn (S) Not Reportable [facility] Serum white hickory IgE anti body assay (units/volume)Ordered By: David Mckinney on 03-12-2023 White [place] IgE Qn (S) <0.10 kU/L Class 0 [facility] Serum white mulberry IgE ant ibody assay (units/volume)Ordered By: David Mckinney on 03-12-2023 White mulberry IgE Qn (S) 0.18 kU/L Class 0/I [facility] White mulberry IgE Qn (S) Not Reportable [facility] Serum white oak IgE antibody assay (units/volume)Ordered By: David Mckinney on 03-12-2023 [place] IgE Qn (S) <0.10 kU/L Class 0 [facility] Serum whole egg IgE antibody assay (units/volume)Ordered By: David Mckinney on 03-12-2023 Whole Egg IgE Qn (S) <0.10 kU/L Class 0 [facility] Stemphylium herbarum IgE ser umOrdered By: David Mckinney on 03-12-2023 Stemphylium botryosum IgE Qn (S) <0.10 kU/L Class 0 [facility] Influenza virus A and B and SARS-CoV-2 (COVID-19) Ag panel - Upper respiratory specimOrdered By: Margarita Griggs on 02-24-2023 SARS-CoV-2 (COVID-19) RNA OFELIA+probe Ql (Resp) [facility] SARS-CoV-2 (COVID-19) RNA OFELIA+probe Ql (Resp) [facility] Throat Streptococcus pyogene s antigen detection by immunofluorescenceOrdered By: Margarita Griggs on 02-24-2023 S. pyogenes Ag IF Ql (Throat) [facility] S. pyogenes Ag IF Ql (Throat) [facility] Absolute lymphocyte countOrd ered By: Zamzam Olson on 12-26-2022 Lymphocytes Auto (Unsp spec) [#/Vol] 1.94 10*3/uL 0.83-4.51 [facility] Basophil percentageOrdered B y: Zamzam Olson on 12-26-2022 Basophils/100 WBC (Bld) 1.2 % 0-1 [facility] Eosinophils/100 WBC (Bld) 5.6 % 0-5 [facility] Neutrophils (Bld) [#/Vol] 3.1 10*3/uL 2.0-7.7 [facility] Neutrophils/100 WBC (Bld) 52.9 % 47-70 [facility] WBC (Bld) [#/Vol] 5.9 10*3/uL 4.4-11.0 [facility] Blood erythrocytes count (nu mber/volume)Ordered By: Zamzam Olson on 12-26-2022 RBC (Bld) [#/Vol] 5.10 10*6/uL 4.2-5.4 [facility] Blood hemoglobin measurement (mass/volume)Ordered By: Zamzam Olson on 12-26-2022 Hemoglobin (Bld) [Mass/Vol] 14.0 g/dL 12.0-15.0 [facility] Blood lymphocytes/100 leukoc ytesOrdered By: Zamzam Olson on 12-26-2022 Lymphocytes/100 WBC (Bld) 33.0 % 19-41 [facility] Blood monocytes/100 leukocyt esOrdered By: Zamzam Olson on 12-26-2022 Monocytes/100 WBC (Bld) 7.1 % 0-10 [facility] Blood platelet mean volumeOr dered By: Zamzam Olson on 12-26-2022 Platelet mean volume (Bld) [Entitic vol] 12.6 fL 6.2-12.0 [facility] Culture, urineOrdered By: Ame Olson on 12-26-2022 Bacteria identified Cx Nom (U) Escherichia coli [facility] Determination of erythrocyte mean corpuscular volume (MCV)Ordered By: Zamzam Olson on 12-26-2022 MCV (RBC) [Entitic vol] 85.3 fL 81-99 [facility] Hematocrit Auto (Bld) [Volum e fraction]Ordered By: Zamzam Olson on 12-26-2022 Hematocrit (Bld) [Volume fraction] 43.5 % 37-47 [facility] Iron measurement (mass/mass) Ordered By: Zamzam Olson on 12-26-2022 Iron (Unsp spec) [Mass/Mass] 74 ug/dL 50-170 [facility] Laboratory - Hematology and Cell countsOrdered By: Zamzam Olson on 12-26-2022 Erythrocyte distribution width (RBC) [Entitic vol] 39.5 fL 35.1-43.9 [facility] Erythrocyte distribution width (RBC) [Ratio] 12.7 % 11.6-14.6 [facility] Immature granulocytes/100 WBC (Bld) 0.200 % 0.0-0.9 [facility] Comment on above: IG% - Immature Granu locytes (promyelocytes, myelocytes and metamyelocytes) > 1% indicates that a LEFT SHIFT is Present. MCH (RBC) [Entitic mass] 27.5 pg 27.0-32.0 [facility] Nucleated RBC/100 WBC (Bld) [Ratio] 0 % 0-5 [facility] MCHC Auto (RBC) [Mass/Vol]Or dered By: Zamzam Olson on 12-26-2022 MCHC (RBC) [Mass/Vol] 32.2 g/dL 32-36 [facility] No Panel InformationOrdered By: Zamzam Olson on 12-26-2022 Total Iron Binding Capacity 447 ug/dL 250-450 [facility] Platelets bldOrdered By: Elizabeth Olson on 12-26-2022 Platelets (Bld) [#/Vol] 215 10*3/uL 150-450 [facility] Serum or plasma ferritin naresh surement (mass/volume)Ordered By: Zamzam Wesley on 12-26-2022 Ferritin [Mass/Vol] 11 ng/mL 8-252 [facility] Serum or plasma iron saturat ion measurement (mass fraction)Ordered By: Zamzam Olson on 12-26-2022 Iron saturation [Mass fraction] 16.6 % 15.0-55.0 [facility] Cervical or vagninal specime n microscopic examination by cytology stain (reported asOrdered By: Jose Alfredo Ewing on 10-30-2022 Cytology report Cyto stain Doc (Cvx/Vag) Comment . [facility] Comment on above: The Pap smear is a s creening test designed to aid in thedetection of premalignant and malignant conditions of theuterine cervix. It is not a diagnostic procedure andshould not be used as the sole means of detecting cervicalcancer. Both false-positive and false-negative reports dooccur. Laboratory - CytologyOrdered By: Jose Alfredo Ewing on 10-30-2022 Typesetter Perforator Operator Cyto stain Nom (Cvx/Vag) [ID] Comment . [facility] Comment on above: Francesco Waslh totskylerologist (ASCP) Laboratory - Miscellaneous t estsOrdered By: Jose Alfredo Ewing on 10-30-2022 Service comment (Unsp spec) [Interp] Comment . [facility] Comment on above: This liquid based Th inPrep(R) pap test was screened withthe use of an image guided system. Service comment (Unsp spec) [Interp] . . [facility] No Panel InformationOrdered By: Jose Alfredo Ewing on 10-30-2022 Human Papillomavirus Screen Comment . [facility] Comment on above: The HPV DNA reflex c riteria were not met with this specimenresult therefore, no HPV testing was performed.Performed at: [facility] Lab[address]Johan briggs [place] [id number] Director: Autunm Cancino MD, Phone: [phone] Pathology report final diagnosis Narrative Comment . [facility] Comment on above: NEGATIVE FOR INTRAEP ITHELIAL LESION OR MALIGNANCY.TRICHOMONAS VAGINALIS IS PRESENT. Culture, urineOrdered By: Dr Tameka Ewing on 08-17-2022 Bacteria identified Cx Nom (U) Positive [facility] Basophil percentageon 2021 Basophil percentage 10-25 SEEN /hpf 0-5 [facility] Work Phone: [phone] Bilirubin [Mass/Vol] 0.40 mg/dL 0.20-1.00 [facility] Work Phone: [phone] Comment on above: For patients on eltr ombopag therapy, use of Dimension [place] TBIL is not recommended. Chloride [Moles/Vol] 108 mmol/L 98-107 [facility] Work Phone: Glucose [Mass/Vol] 59 mg/dL 74-106 [facility] Work Phone: Potassium [Moles/Vol] 3.8 mmol/L 3.5-5.1 [facility] Work Phone: [phone] Protein [Mass/Vol] 6.6 g/dL 6.4-8.2 [facility] Work Phone: [phone] Sodium [Moles/Vol] 137 mmol/L 136-145 [facility] Work Phone: [phone] WBC (Bld) [#/Vol] 10.5 10*3/uL 4.4-11.0 [facility] Work Phone: [phone] Bilirubin Test strip Ql (U)o n 02-20-2022 Bilirubin Ql (U) Negative Negative [facility] Work Phone: [phone] Blood erythrocytes count (nu mber/volume)on 02-20-2022 RBC (Bld) [#/Vol] 3.83 10*6/uL 4.2-5.4 [facility] Work Phone: Blood hemoglobin measurement (mass/volume)on 02-20-2022 Hemoglobin (Bld) [Mass/Vol] 10.1 g/dL 12.0-15.0 [facility] Work Phone: Blood platelet mean volumeon 02-20-2022 Platelet mean volume (Bld) [Entitic vol] 12.8 fL 6.2-12.0 [facility] Work Phone: Determination of erythrocyte mean corpuscular volume (MCV)on 02-20-2022 MCV (RBC) [Entitic vol] 83.3 fL 81-99 [facility] Work Phone: Hematocrit Auto (Bld) [Volum e fraction]on 02-20-2022 Hematocrit (Bld) [Volume fraction] 31.9 % 37-47 [facility] Work Phone: Ketones Test strip Ql (U)on 02-20-2022 Ketones Ql (U) Negative Negative [facility] Work Phone: Laboratory - Chemistry and C hemistry - challengeon 02-20-2022 ALP [Catalytic activity/Vol] 194 U/L 45-117 [facility] Work Phone: ALT [Catalytic activity/Vol] 16 U/L 13-56 [facility] Work Phone: CO2 [Moles/Vol] 22.0 mmol/L 21.0-32.0 [facility] Work Phone: Globulin (S) [Mass/Vol] 4.0 g/dL 2.2-4.2 [facility] Work Phone: Urea nitrogen/Creatinine [Mass ratio] 18.0 mg/mg 10-20 [facility] Work Phone: Laboratory - Drug toxicology on 02-20-2022 Benzodiazepines Ql (U) Negative < 200 ng/mL [facility] Work Phone: Cannabinoids Screen Ql (U) Negative < 50 ng/mL [facility] Work Phone: Cocaine Ql (U) Negative < 300 ng/mL [facility] Work Phone: Opiates Ql (U) Negative < 300 ng/mL [facility] Work Phone: Laboratory - Hematology and Cell countson 02-20-2022 Erythrocyte distribution width (RBC) [Entitic vol] 44.0 fL 35.1-43.9 [facility] Work Phone: Erythrocyte distribution width (RBC) [Ratio] 14.6 % 11.6-14.6 [facility] Work Phone: MCH (RBC) [Entitic mass] 26.4 pg 27.0-32.0 [facility] Work Phone: MCHC Auto (RBC) [Mass/Vol]on 02-20-2022 MCHC (RBC) [Mass/Vol] 31.7 g/dL 32-36 [facility] Work Phone: Mucus LM Ql (Urine sed)on Mucus Ql (Urine sed) 1+ /hpf [facility] Work Phone: Nitrite Test strip Ql (U)on 02-20-2022 Nitrite Ql (U) Negative Negative [facility] Work Phone: No Panel Informationon 02-20 MDMA (Ecstasy) Screen Negative < 500 ng/mL [facility] Work Phone: Urine Barbiturates Screen Negative < 200 ng/mL [facility] Work Phone: Urine Drug Screen Comment [facility] Work Phone: Comment on above: CONFIRMATORY TESTING [...] Methadone Screen Negative < 300 ng/mL [facility] Work Phone: Urine Trichomonas 0-5 SEEN /hpf None Seen [facility] Work Phone: Estimated Creatinine Clearance Calc 198.42 ml/min [facility] Work Phone: Estimated GFR (MDRD) Amer 259 mL/min >60 [facility] Work Phone: Comment on above: GFR Calc Estimated GFR (MDRD) Non-Af Amer 214 mL/min >60 [facility] Work Phone: Comment on above: Non- GFR Calc Platelets bldon 02-20-2022 Platelets (Bld) [#/Vol] 171 10*3/uL 150-450 [facility] Work Phone: Protein Test strip Ql (U)on 02-20-2022 Protein Ql (U) 15 mg/dl Negative [facility] Work Phone: Serum or plasma albumin roopa urement (mass/volume)on 02-20-2022 Albumin [Mass/Vol] 2.6 g/dL 3.2-5.0 [facility] Work Phone: Serum or plasma albumin/glob ulin mass ratioon 02-20-2022 Albumin/Globulin [Mass ratio] 0.6 {ratio} 0.9-2.4 [facility] Work Phone: Serum or plasma calcium roopa urement (mass/volume)on 02-20-2022 Calcium [Mass/Vol] 8.7 mg/dL 8.5-10.1 [facility] Work Phone: Serum or plasma creatinine m easurement (mass/volume)on 02-20-2022 Creatinine [Mass/Vol] 0.39 mg/dL 0.55-1.02 [facility] Work Phone: Comment on above: The validity of the calculated GFR & GFRAA in patients over 70 years has not been determined. Clinical correlation is essential. Serum or plasma urea nitroge n measurement (mass/volume)on 02-20-2022 Urea nitrogen [Mass/Vol] 7 mg/dL 7-18 [facility] Work Phone: Serum or plasma uric acid me asurement (mass/volume)on 02-20-2022 Urate [Mass/Vol] 3.9 mg/dL 2.6-6.0 [facility] Work Phone: Comment on above: The drugs N-Acetylcy steine and Metamizole may falsely depress this assay. Squamous epithelial cells de tection in urine sediment by light microscopyon 02-20-2022 Epithelial cells.squamous LM Ql (Urine sed) 10-25 SEEN /hpf 5-10 [facility] Work Phone: Thin prep Papanicolaou smear with manual screeningon 02-20-2022 Thin prep Papanicolaou smear with manual screening 16 U/L 15-37 [facility] Work Phone: Thin prep Papanicolaou smear with manual screening 7 5-15 [facility] Work Phone: Thin prep Papanicolaou smear with manual screening 170 U/L 84-246 [facility] Work Phone: Urine amphetamine measuremen t (moles/volume)on 02-20-2022 Amphetamine (U) [Moles/Vol] Negative <1000 ng/mL [facility] Work Phone: Urine blood detectionon - RBC Ql (U) 250 /ul Negative [facility] Work Phone: RBC Ql (U) 5-10 SEEN /hpf 0-5 [facility] Work Phone: Urine clarityon 02-20-2022 Clarity (U) Sl. Cloudy Clear [facility] Work Phone: Urine color determinationon 02-20-2022 Color (U) Yellow Yellow [facility] Work Phone: Urine creatinine measurement (mass/volume)on 02-20-2022 Creatinine (U) [Mass/Vol] 109.00 mg/dL NO RANGE EST. [facility] Work Phone: Urine glucose detectionon Glucose Ql (U) 250 mg/dl Normal [facility] Work Phone: Urine leukocyte esterase det ection by dipstickon 02-20-2022 Leukocyte esterase Test strip Ql (U) 500 /ul Negative [facility] Work Phone: [phone] Urine pHon 02-20-2022 pH (U) 6.0 [pH] 5.0 - 8.0 [facility] Work Phone: Urine phencyclidine (PCP) de tectionon 02-20-2022 Phencyclidine Ql (U) Negative < 25 ng/mL [facility] Work Phone: Urine protein measurement (m ass/volume)on 02-20-2022 Protein (U) [Mass/Vol] 20.4 mg/dL 0.0-11.8 [facility] Work Phone: Urine protein/creatinine mas s ratioon 02-20-2022 Protein/Creatinine (U) [Mass ratio] 187 mg/g CRE 0-200 [facility] Work Phone: Urine sediment bacteria coun t by microscopy (number/high power field)on 02-20-2022 Bacteria LM.HPF (Urine sed) [#/Area] 4 /[HPF] None Seen [facility] Work Phone: Urine specific gravity measu rementon 02-20-2022 Specific gravity (U) [Rel density] 1.020 1.002-1.030 [facility] Work Phone: Urobilinogen Auto test strip Ql (U)on 02-20-2022 Urobilinogen Ql (U) 1 mg/dl Normal [facility] Work Phone: No Panel Informationon 02-17 Vaginal Amniotic Fluid Detection Negative Negative [facility] Work Phone: Comment on above: Amniotic fluid not p resent indicates No Rupture of FetalMembranes at time of specimen collection. Basophil percentageon 2021 WBC (Bld) [#/Vol] 9.9 10*3/uL 4.4-11.0 [facility] Work Phone: Blood erythrocytes count (nu mber/volume)on 12-13-2021 RBC (Bld) [#/Vol] 3.71 10*6/uL 4.2-5.4 [facility] Work Phone: Blood hemoglobin measurement (mass/volume)on 12-13-2021 Hemoglobin (Bld) [Mass/Vol] 9.9 g/dL 12.0-15.0 [facility] Work Phone: Blood platelet mean volumeon 12-13-2021 Platelet mean volume (Bld) [Entitic vol] 11.9 fL 6.2-12.0 [facility] Work Phone: Determination of erythrocyte mean corpuscular volume (MCV)on 12-13-2021 MCV (RBC) [Entitic vol] 85.2 fL 81-99 [facility] Work Phone: Gestational diabetes screen 1-hour screen with 50g oral glucose loadon 12-13-2021 Glucose 1 Hr post 50 g glucose PO [Mass/Vol] 129 mg/dL 70-140 [facility] Work Phone: Hematocrit Auto (Bld) [Volum e fraction]on 12-13-2021 Hematocrit (Bld) [Volume fraction] 31.6 % 37-47 [facility] Work Phone: Laboratory - Hematology and Cell countson 12-13-2021 Erythrocyte distribution width (RBC) [Entitic vol] 48.6 fL 35.1-43.9 [facility] Work Phone: Erythrocyte distribution width (RBC) [Ratio] 15.7 % 11.6-14.6 [facility] Work Phone: MCH (RBC) [Entitic mass] 26.7 pg 27.0-32.0 [facility] Work Phone: [phone] MCHC Auto (RBC) [Mass/Vol]on 12-13-2021 MCHC (RBC) [Mass/Vol] 31.3 g/dL 32-36 [facility] Work Phone: Platelets bldon 12-13-2021 Platelets (Bld) [#/Vol] 172 10*3/uL 150-450 [facility] Work Phone: Absolute lymphocyte counton 11-04-2021 Lymphocytes Auto (Unsp spec) [#/Vol] 2.73 10*3/uL 0.83-4.51 [facility] Work Phone: Basophil percentageon 2021 Basophils/100 WBC (Bld) 0.4 % 0-1 [facility] Work Phone: Eosinophils/100 WBC (Bld) 3.1 % 0-5 [facility] Work Phone: Neutrophils (Bld) [#/Vol] 5.5 10*3/uL 2.0-7.7 [facility] Work Phone: Neutrophils/100 WBC (Bld) 58.8 % 47-70 [facility] Work Phone: WBC (Bld) [#/Vol] 9.4 10*3/uL 4.4-11.0 [facility] Work Phone: Blood erythrocytes count (nu mber/volume)on 11-04-2021 RBC (Bld) [#/Vol] 3.42 10*6/uL 4.2-5.4 [facility] Work Phone: Blood hemoglobin measurement (mass/volume)on 11-04-2021 Hemoglobin (Bld) [Mass/Vol] 9.0 g/dL 12.0-15.0 [facility] Work Phone: Blood lymphocytes/100 leukoc yteson 11-04-2021 Lymphocytes/100 WBC (Bld) 29.1 % 19-41 [facility] Work Phone: Blood monocytes/100 leukocyt eson 11-04-2021 Monocytes/100 WBC (Bld) 7.4 % 0-10 [facility] Work Phone: Blood platelet mean volumeon 11-04-2021 Platelet mean volume (Bld) [Entitic vol] 11.7 fL 6.2-12.0 [facility] Work Phone: [phone] Determination of erythrocyte mean corpuscular volume (MCV)on 11-04-2021 MCV (RBC) [Entitic vol] 84.8 fL 81-99 [facility] Work Phone: [phone] Hematocrit Auto (Bld) [Volum e fraction]on 11-04-2021 Hematocrit (Bld) [Volume fraction] 29.0 % 37-47 [facility] Work Phone: Laboratory - Hematology and Cell countson 11-04-2021 Erythrocyte distribution width (RBC) [Entitic vol] 46.1 fL 35.1-43.9 [facility] Work Phone: [phone] Erythrocyte distribution width (RBC) [Ratio] 15.0 % 11.6-14.6 [facility] Work Phone: [phone] Immature granulocytes/100 WBC (Bld) 1.200 % 0.0-0.9 [facility] Work Phone: [phone] Comment on above: IG% - Immature Granu locytes (promyelocytes, myelocytes and metamyelocytes) > 1% indicates that a LEFT SHIFT is Present. MCH (RBC) [Entitic mass] 26.3 pg 27.0-32.0 [facility] Work Phone: [phone] Nucleated RBC/100 WBC (Bld) [Ratio] 0 % 0-5 [facility] Work Phone: [phone] MCHC Auto (RBC) [Mass/Vol]on 11-04-2021 MCHC (RBC) [Mass/Vol] 31.0 g/dL 32-36 [facility] Work Phone: Platelets bldon 11-04-2021 Platelets (Bld) [#/Vol] 184 10*3/uL 150-450 [facility] Work Phone: [phone] INR in Blood by Coagulation assayon 11-03-2021 INR Coag (Bld) [Relative time] 1.1 {INR} [facility] Work Phone: Laboratory - Coagulationon 0 11-03-2021 aPTT Coag (Bld) [Time] 27.0 s 24.1-36.2 [facility] Work Phone: PT Coag (PPP) [Time] 13.4 s 11.7-14.9 [facility] Work Phone: Laboratory - Drug toxicology on 11-03-2021 Amphetamines Ql (U) Negative <1000 ng/mL [facility] Work Phone: Benzodiazepines Ql (U) Negative < 200 ng/mL [facility] Work Phone: Cannabinoids Screen Ql (U) Negative < 50 ng/mL [facility] Work Phone: Cocaine Ql (U) Negative < 300 ng/mL [facility] Work Phone: Opiates Ql (U) Negative < 300 ng/mL [facility] Work Phone: No Panel Informationon 11-03 MDMA (Ecstasy) Screen Negative < 500 ng/mL [facility] Work Phone: Urine Barbiturates Screen Negative < 200 ng/mL [facility] Work Phone: Urine Drug Screen Comment [facility] Work Phone: Comment on above: CONFIRMATORY TESTING [...] Urine Methadone Screen Negative < 300 ng/mL [facility] Work Phone: Urine phencyclidine (PCP) de tectionon 11-03-2021 Phencyclidine Ql (U) Negative < 25 ng/mL [facility] Work Phone: Absolute lymphocyte counton 09-13-2021 Lymphocytes Auto (Unsp spec) [#/Vol] 1.80 10*3/uL 0.83-4.51 [facility] Work Phone: Basophil percentageon 2021 Basophils/100 WBC (Bld) 0.4 % 0-1 [facility] Work Phone: Chloride [Moles/Vol] 107 mmol/L 98-107 [facility] Work Phone: Eosinophils/100 WBC (Bld) 3.9 % 0-5 [facility] Work Phone: Glucose [Mass/Vol] 78 mg/dL 74-106 [facility] Work Phone: Neutrophils (Bld) [#/Vol] 5.6 10*3/uL 2.0-7.7 [facility] Work Phone: Neutrophils/100 WBC (Bld) 67.2 % 47-70 [facility] Work Phone: Potassium [Moles/Vol] 4.0 mmol/L 3.5-5.1 [facility] Work Phone: Sodium [Moles/Vol] 136 mmol/L 136-145 [facility] Work Phone: WBC (Bld) [#/Vol] 8.3 10*3/uL 4.4-11.0 [facility] Work Phone: Blood erythrocytes count (nu mber/volume)on 09-13-2021 RBC (Bld) [#/Vol] 4.28 10*6/uL 4.2-5.4 [facility] Work Phone: Blood hemoglobin measurement (mass/volume)on 09-13-2021 Hemoglobin (Bld) [Mass/Vol] 11.6 g/dL 12.0-15.0 [facility] Work Phone: Blood lymphocytes/100 leukoc yteson 09-13-2021 Lymphocytes/100 WBC (Bld) 21.8 % 19-41 [facility] Work Phone: Blood monocytes/100 leukocyt eson 09-13-2021 Monocytes/100 WBC (Bld) 6.1 % 0-10 [facility] Work Phone: Blood platelet mean volumeon 09-13-2021 Platelet mean volume (Bld) [Entitic vol] 10.7 fL 6.2-12.0 [facility] Work Phone: [phone] Determination of erythrocyte mean corpuscular volume (MCV)on 09-13-2021 MCV (RBC) [Entitic vol] 83.2 fL 81-99 [facility] Work Phone: Hematocrit Auto (Bld) [Volum e fraction]on 09-13-2021 Hematocrit (Bld) [Volume fraction] 35.6 % 37-47 [facility] Work Phone: [phone] Laboratory - Chemistry and C hemistry - challengeon 09-13-2021 CO2 [Moles/Vol] 26.0 mmol/L 21.0-32.0 [facility] Work Phone: [phone] Urea nitrogen/Creatinine [Mass ratio] 14.5 mg/mg 10-20 [facility] Work Phone: Laboratory - Hematology and Cell countson 09-13-2021 Erythrocyte distribution width (RBC) [Entitic vol] 47.2 fL 35.1-43.9 [facility] Work Phone: [phone] Erythrocyte distribution width (RBC) [Ratio] 15.8 % 11.6-14.6 [facility] Work Phone: [phone] Immature granulocytes/100 WBC (Bld) 0.600 % 0.0-0.9 [facility] Work Phone: [phone] Comment on above: IG% - Immature Granu locytes (promyelocytes, myelocytes and metamyelocytes) > 1% indicates that a LEFT SHIFT is Present. MCH (RBC) [Entitic mass] 27.1 pg 27.0-32.0 [facility] Work Phone: Nucleated RBC/100 WBC (Bld) [Ratio] 0 % 0-5 [facility] Work Phone: MCHC Auto (RBC) [Mass/Vol]on 09-13-2021 MCHC (RBC) [Mass/Vol] 32.6 g/dL 32-36 [facility] Work Phone: No Panel Informationon 09-13 Estimated Creatinine Clearance Calc 141.92 ml/min [facility] Work Phone: Estimated GFR (MDRD) Amer 174 mL/min >60 [facility] Work Phone: Comment on above: GFR Calc Estimated GFR (MDRD) Non-Af Amer 144 mL/min >60 [facility] Work Phone: Comment on above: Non- GFR Calc Platelets bldon 09-13-2021 Platelets (Bld) [#/Vol] 190 10*3/uL 150-450 [facility] Work Phone: Serum or plasma calcium roopa urement (mass/volume)on 09-13-2021 Calcium [Mass/Vol] 8.9 mg/dL 8.5-10.1 [facility] Work Phone: Serum or plasma creatinine m easurement (mass/volume)on 09-13-2021 Creatinine [Mass/Vol] 0.55 mg/dL 0.55-1.02 [facility] Work Phone: Comment on above: The validity of the calculated GFR & GFRAA in patients over 70 years has not been determined. Clinical correlation is essential. Serum or plasma urea nitroge n measurement (mass/volume)on 09-13-2021 Urea nitrogen [Mass/Vol] 8 mg/dL 7-18 [facility] Work Phone: Thin prep Papanicolaou smear with manual screeningon 09-13-2021 Thin prep Papanicolaou smear with manual screening 3 5-15 [facility] Work Phone: Absolute lymphocyte counton 08-01-2021 Lymphocytes Auto (Unsp spec) [#/Vol] 1.99 10*3/uL 0.83-4.51 [facility] Work Phone: Basophil percentageon 2021 Basophils/100 WBC (Bld) 0.4 % 0-1 [facility] Work Phone: Eosinophils/100 WBC (Bld) 4.4 % 0-5 [facility] Work Phone: Neutrophils (Bld) [#/Vol] 4.4 10*3/uL 2.0-7.7 [facility] Work Phone: Neutrophils/100 WBC (Bld) 60.7 % 47-70 [facility] Work Phone: WBC (Bld) [#/Vol] 7.2 10*3/uL 4.4-11.0 [facility] Work Phone: [phone] Bilirubin Test strip Ql (U)o n 08-01-2021 Bilirubin Ql (U) Negative Negative [facility] Work Phone: [phone] Blood erythrocytes count (nu mber/volume)on 08-01-2021 RBC (Bld) [#/Vol] 4.52 10*6/uL 4.2-5.4 [facility] Work Phone: [phone] Blood hemoglobin measurement (mass/volume)on 08-01-2021 Hemoglobin (Bld) [Mass/Vol] 12.2 g/dL 12.0-15.0 [facility] Work Phone: Blood lymphocytes/100 leukoc yteson 08-01-2021 Lymphocytes/100 WBC (Bld) 27.6 % 19-41 [facility] Work Phone: Blood monocytes/100 leukocyt eson 08-01-2021 Monocytes/100 WBC (Bld) 6.5 % 0-10 [facility] Work Phone: Blood platelet mean volumeon 08-01-2021 Platelet mean volume (Bld) [Entitic vol] 11.8 fL 6.2-12.0 [facility] Work Phone: [phone] Culture, urineon 08-01-2021 Bacteria identified Cx Nom (U) Positive [facility] Work Phone: Determination of erythrocyte mean corpuscular volume (MCV)on 08-01-2021 MCV (RBC) [Entitic vol] 80.5 fL 81-99 [facility] Work Phone: HIV 1 and HIV-2 antibody ass ay with HIV-1 p24 antigen detectionon 08-01-2021 HIV 1+2 Ab+HIV1 p24 Ag IA Ql Non-Reactive Nonreactive [facility] Work Phone: Hematocrit Auto (Bld) [Volum e fraction]on 08-01-2021 Hematocrit (Bld) [Volume fraction] 36.4 % 37-47 [facility] Work Phone: Ketones Test strip Ql (U)on 08-01-2021 Ketones Ql (U) Negative Negative [facility] Work Phone: Laboratory - Drug toxicology on 08-01-2021 Amphetamines Ql (U) Negative [facility] Work Phone: Benzodiazepines Ql (U) Negative [facility] Work Phone: Cannabinoids Screen Ql (U) Negative [facility] Work Phone: Cocaine Ql (U) Negative [facility] Work Phone: Opiates Ql (U) Negative [facility] Work Phone: Laboratory - Hematology and Cell countson 08-01-2021 Erythrocyte distribution width (RBC) [Entitic vol] 47.8 fL 35.1-43.9 [facility] Work Phone: Erythrocyte distribution width (RBC) [Ratio] 16.2 % 11.6-14.6 [facility] Work Phone: Immature granulocytes/100 WBC (Bld) 0.400 % 0.0-0.9 [facility] Work Phone: Comment on above: IG% - Immature Granu locytes (promyelocytes, myelocytes and metamyelocytes) > 1% indicates that a LEFT SHIFT is Present. MCH (RBC) [Entitic mass] 27.0 pg 27.0-32.0 [facility] Work Phone: Nucleated RBC/100 WBC (Bld) [Ratio] 0 % 0-5 [facility] Work Phone: MCHC Auto (RBC) [Mass/Vol]on 08-01-2021 MCHC (RBC) [Mass/Vol] 33.5 g/dL 32-36 [facility] Work Phone: Nitrite Test strip Ql (U)on 08-01-2021 Nitrite Ql (U) Negative Negative [facility] Work Phone: No Panel Informationon 08-01 Hepatitis B Surface Antigen Non-Reactive Nonreactive [facility] Work Phone: Hepatitis C Antibody Non-Reactive Nonreactive [facility] Work Phone: Comment on above: Non Reactive: < 0.8 Equivocal: >/= 0.8 to < 1.0 Reactive: >/= 1.0The CDC recommends that a reactive/equivocal HCV antibody result be followed up by the HCV Nucleic Acid Amplificationtest (486696) Rubella IgG Antibody Reactive Nonreactive [facility] Work Phone: Comment on above: Antibody Results Int erpretation of Immune Status Non Reactive Presumed Non-Immune Equivocal Equivocal Reactive Presumed Immune Thyroid Stimulating Hormone (TSH) 0.43 uIU/mL 0.358-3.74 [facility] Work Phone: Urine Barbiturates Screen Negative [facility] Work Phone: Urine Drug Screen Comment [facility] Work Phone: Comment on above: CONFIRMATORY TESTING [...] USE TESTMNEMONIC: [facility] Urine Methadone Screen Negative [facility] Work Phone: Urine Methamphetamine-MDMA Screen Negative [facility] Work Phone: [phone] Platelets bldon 08-01-2021 Platelets (Bld) [#/Vol] 208 10*3/uL 150-450 [facility] Work Phone: Protein Test strip Ql (U)on 08-01-2021 Protein Ql (U) Negative Negative [facility] Work Phone: [phone] Serum Treponema species anti body detectionon 08-01-2021 Treponema sp Ab Ql (S) Non-Reactive [facility] Work Phone: Urine blood detectionon - RBC Ql (U) Negative Negative [facility] Work Phone: Urine clarityon 08-01-2021 Clarity (U) Sl. Cloudy Clear [facility] Work Phone: Urine color determinationon 08-01-2021 Color (U) Yellow Yellow [facility] Work Phone: Urine glucose detectionon Glucose Ql (U) Normal mg/dl Normal [facility] Work Phone: [phone] Urine leukocyte esterase det ection by dipstickon 08-01-2021 Leukocyte esterase Test strip Ql (U) 100 /ul Negative [facility] Work Phone: [phone] Urine pHon 08-01-2021 pH (U) 8.0 [pH] [facility] Work Phone: [phone] Urine phencyclidine (PCP) de tectionon 08-01-2021 Phencyclidine Ql (U) Negative [facility] Work Phone: Urine specific gravity measu rementon 08-01-2021 Specific gravity (U) [Rel density] 1.015 [facility] Work Phone: Urobilinogen Auto test strip Ql (U)on 08-01-2021 Urobilinogen Ql (U) Normal mg/dl Normal [facility] Work Phone: No Panel Informationon 07-19 POC SARS CoV-2 Antigen Negative [facility] Work Phone: Serum or plasma choriogonado tropin detectionon 07-09-2021 HCG ( test) Ql 15578 mIU/mL <4 [facility] Work Phone: Comment on above: hCG levels with Gest ational AgeGestational Age hCG mIU/mL (IU/L)0.2 - 1 week 5 - 501-2 weeks 50 - 5002-3 weeks 100 - 93203-0 weeks 500 - 264842-7 weeks 1000 - 375828-5 weeks 43310 - 100,0006-8 weeks 33633 - 200,0002-3 months 18390 - 100,000 No Panel Information Group B Streptococcus Culture Group B Beta Streptococcus is not isolated. [facility] Work Phone: Vital Signs Date Time Vital Sign Value Performing Clinician Facility 03-10-2025 14:53-0400 Body temperature 97 [degF] Dr. David Mckinney MD Work Phone: [facility] 03-10-2025 14:53-0400 Diastolic blood pressure 79 mm[Hg] Dr. David Mckinney MD Work Phone: [facility] 03-10-2025 14:53-0400 Heart rate 98 /min Dr. David Mckinney MD Work Phone: [facility] 03-10-2025 14:53-0400 Respiratory rate 14 /min Dr. David Mckinney MD Work Phone: [facility] 03-10-2025 14:53-0400 SaO2% (BldA) [Mass fraction] 98 % Dr. David Mckinney MD Work Phone: [facility] 03-10-2025 14:53-0400 Systolic blood pressure 115 mm[Hg] Dr. David Mckinney MD Work Phone: [facility] 03-10-2025 12:30-0400 Body height 165.[address] David Mckinney MD Work Phone: [facility] 03-10-2025 12:30-0400 Body mass index (BMI) [Ratio] 28.3 kg/m2 Dr. David Mckinney MD Work Phone: [facility] 03-10-2025 12:30-0400 Body weight 77.[address] David Mckinney MD Work Phone: [facility] 02-09-2025 09:49-0400 Body mass index (BMI) [Ratio] 28.79 kg/m2 Jt Lugo MD Work Phone: [facility] 02-09-2025 09:49-0400 Body weight 78.47 kg Jt Lugo MD Work Phone: [facility] 02-09-2025 09:49-0400 Diastolic blood pressure 60 mm[Hg] Jt Lugo MD Work Phone: [facility] 02-09-2025 09:49-0400 Systolic blood pressure 106 mm[Hg] Jt Lugo MD Work Phone: [facility] 01-28-2025 10:32-0400 Body height 165.[address] David Mckinney MD Work Phone: [facility] 01-12-2025 09:53-0400 Body mass index (BMI) [Ratio] 28.12 kg/m2 Sarah Solomon MD Work Phone: [facility] 01-12-2025 09:53-0400 Body weight 76.66 kg Sarah Solomon MD Work Phone: [facility] 01-12-2025 09:53-0400 Diastolic blood pressure 70 mm[Hg] Sarah Solomon MD Work Phone: [facility] 01-12-2025 09:53-0400 Systolic blood pressure 108 mm[Hg] Sarah Solomon MD Work Phone: [facility] 12-31-2024 13:21-0400 Body mass index (BMI) [Ratio] 26.63 kg/m2 Soy Cassidy MD Work Phone: [facility] 12-31-2024 13:21-0400 Body weight 72.58 kg Soy Cassidy MD Work Phone: [facility] 12-31-2024 13:21-0400 Diastolic blood pressure 88 mm[Hg] Soy Cassidy MD Work Phone: [facility] 12-31-2024 13:21-0400 Systolic blood pressure 128 mm[Hg] Soy Cassidy MD Work Phone: [facility] 12-11-2024 13:47-0400 Body height 165.[address] David Mckinney MD Work Phone: [facility] 12-11-2024 13:47-0400 Body mass index (BMI) [Ratio] 28.6 kg/m2 Dr. David Mckinney MD Work Phone: [facility] 12-11-2024 13:47-0400 Body temperature 98.8 [degF] Dr. David Mckinney MD Work Phone: [facility] 12-11-2024 13:47-0400 Body weight 78.[address] David Mckinney MD Work Phone: [facility] 12-11-2024 13:47-0400 Diastolic blood pressure 79 mm[Hg] Dr. David Mckinney MD Work Phone: [facility] 12-11-2024 13:47-0400 Heart rate 93 /min Dr. David Mckinney MD Work Phone: [facility] 12-11-2024 13:47-0400 Respiratory rate 16 /min Dr. David Mckinney MD Work Phone: [facility] 12-11-2024 13:47-0400 SaO2% (BldA) [Mass fraction] 99 % Dr. David Mckinney MD Work Phone: [facility] 12-11-2024 13:47-0400 Systolic blood pressure 132 mm[Hg] Dr. David Mckinney MD Work Phone: [facility] 11-18-2024 13:12-0400 Body height 165.1 cm Johana Turner FITNESS AND WELLNESS DIRECTOR.CNM Work Phone: [facility] 11-18-2024 13:12-0400 Body mass index (BMI) [Ratio] 26.79 kg/m2 Johana Turner FITNESS AND WELLNESS DIRECTOR.CNM Work Phone: [facility] 11-18-2024 13:12-0400 Body weight 73.03 kg Johana Turner FITNESS AND WELLNESS DIRECTOR.CNM Work Phone: [facility] 11-18-2024 13:12-0400 Diastolic blood pressure 82 mm[Hg] Johana Turner FITNESS AND WELLNESS DIRECTOR.CNM Work Phone: [facility] 11-18-2024 13:12-0400 Systolic blood pressure 118 mm[Hg] Johana Turner FITNESS AND WELLNESS DIRECTOR.CNM Work Phone: [facility] 10-12-2024 01:32-0400 Diastolic blood pressure 89 mm[Hg] Dr. David Mckinney MD Work Phone: [facility] 10-12-2024 01:32-0400 Heart rate 83 /min Dr. David Mckinney MD Work Phone: [facility] 10-12-2024 01:32-0400 Respiratory rate 12 /min Dr. David Mckinney MD Work Phone: [facility] 10-12-2024 01:32-0400 SaO2% (BldA) [Mass fraction] 97 % Dr. David Mckinney MD Work Phone: [facility] 10-12-2024 01:32-0400 Systolic blood pressure 136 mm[Hg] Dr. David Mckinney MD Work Phone: [facility] 10-11-2024 23:39-0400 Body height 165.[address] David Mckinney MD Work Phone: [facility] 10-11-2024 23:39-0400 Body mass index (BMI) [Ratio] 26.7 kg/m2 Dr. David Mckinney MD Work Phone: [facility] 10-11-2024 23:39-0400 Body temperature 97.8 [degF] Dr. David Mckinney MD Work Phone: [phone] [place] [address] 10-11-2024 23:39-0400 Body weight 72.[address] David Mckinney MD Work Phone: [phone] [place], [place] [address] 10-02-2024 23:04-0400 Body temperature 96.8 [degF] Dr. David Mckinney MD Work Phone: 0(113)[phone] [place] [address] 10-02-2024 23:04-0400 Diastolic blood pressure 80 mm[Hg] Dr. David Mckinney MD Work Phone: 1(409)690-485241 [place] [address] 10-02-2024 23:04-0400 Heart rate 100 /min Dr. David Mckinney MD Work Phone: 5(723)957-695241 [place] [address] 10-02-2024 23:04-0400 Respiratory rate 16 /min Dr. David Mckinney MD Work Phone: 6(942)984-870241 [place] [address] 10-02-2024 23:04-0400 SaO2% (BldA) [Mass fraction] 98 % Dr. David Mckinney MD Work Phone: 3(627)875-251241 [place] [address] 10-02-2024 23:04-0400 Systolic blood pressure 132 mm[Hg] Dr. David Mckinney MD Work Phone: 7(948)453-866741 [place] [address] 10-02-2024 22:37-0400 Body height 165.[address] David Mckinney MD Work Phone: 5(724)545-745841 [place] [address] 10-02-2024 22:37-0400 Body mass index (BMI) [Ratio] 26.1 kg/m2 Dr. David Mckinney MD Work Phone: 0(331)879-225441 [place] [address] 10-02-2024 22:37-0400 Body weight 71.[address] David Mckinney MD Work Phone: 3(359)179-868841 [place] [address] 09-16-2024 14:38-0400 Body mass index (BMI) [Ratio] 27.88 kg/m2 Hortencia Gould APRN.[employer]UME [employer] COORDINATOR Work Phone: [facility] 09-16-2024 14:38-0400 Body weight 73.66 kg Hortencia Gould FITNESS AND WELLNESS DIRECTOR.[employer]UME [employer] COORDINATOR Work Phone: [facility] 09-16-2024 14:38-0400 Diastolic blood pressure 65 mm[Hg] Hortencia Gould FITNESS AND WELLNESS DIRECTOR.COSTUME SHOP COORDINATOR Work Phone: [facility] 09-16-2024 14:38-0400 Systolic blood pressure 106 mm[Hg] Hortencia Gould FITNESS AND WELLNESS DIRECTOR.COSTUME SHOP COORDINATOR Work Phone: [facility] 07-29-2024 13:20-0500 Body height 162.6 cm Sharda Anjum FITNESS AND WELLNESS DIRECTOR.COSTUME SHOP COORDINATOR Work Phone: [facility] 07-29-2024 13:20-0500 Body mass index (BMI) [Ratio] 29.01 kg/m2 Sharda Wiley FITNESS AND WELLNESS DIRECTOR.COSTUME SHOP COORDINATOR Work Phone: [facility] 07-29-2024 13:20-0500 Body weight 76.66 kg Sharda Anjum FITNESS AND WELLNESS DIRECTOR.COSTUME SHOP COORDINATOR Work Phone: [facility] 07-29-2024 13:20-0500 Diastolic blood pressure 76 mm[Hg] Sharda Wiley FITNESS AND WELLNESS DIRECTOR.COSTUME SHOP COORDINATOR Work Phone: [facility] 07-29-2024 13:20-0500 Systolic blood pressure 112 mm[Hg] Sharda Anjum FITNESS AND WELLNESS DIRECTOR.CO[employer]UME SHOP COORDINATOR Work Phone: [facility] 07-01-2024 11:22-0500 Body mass index (BMI) [Ratio] 28.97 kg/m2 Jeanette Patel MD Work Phone: [facility] 07-01-2024 11:22-0500 Body weight 76.57 kg Jeanette Patel MD Work Phone: [facility] 07-01-2024 11:22-0500 Diastolic blood pressure 84 mm[Hg] Jeanette Patel MD Work Phone: [facility] 07-01-2024 11:22-0500 Systolic blood pressure 120 mm[Hg] Jeanette Patel MD Work Phone: [facility] 06-19-2024 14:07-0500 Diastolic blood pressure 86 mm[Hg] Dr. David Mckinney MD Work Phone: [facility] 06-19-2024 14:07-0500 Heart rate 76 /min Dr. David Mckinney MD Work Phone: [facility] 06-19-2024 14:07-0500 Systolic blood pressure 135 mm[Hg] Dr. David Mckinney MD Work Phone: [facility] 06-19-2024 14:00-0500 Body temperature 98 [degF] Dr. David Mckinney MD Work Phone: [facility] 06-19-2024 14:00-0500 Respiratory rate 16 /min Dr. David Mckinney MD Work Phone: [facility] 06-19-2024 04:05-0500 SaO2% (BldA) [Mass fraction] 97 % Dr. David Mckinney MD Work Phone: [facility] 06-17-2024 11:34-0500 Body mass index (BMI) [Ratio] 31.7 kg/m2 Dr. David Mckinney MD Work Phone: [facility] 06-17-2024 11:34-0500 Body weight 86.[address] David Mckinney MD Work Phone: [facility] 06-17-2024 08:46-0500 Body mass index (BMI) [Ratio] 32.61 kg/m2 Nst Wstr Work Phone: [facility] 06-17-2024 08:46-0500 Body weight 86.18 kg Nst Wstr Work Phone: [facility] 06-17-2024 08:46-0500 Diastolic blood pressure 88 mm[Hg] Nst Wstr Work Phone: [facility] 06-17-2024 08:46-0500 Systolic blood pressure 131 mm[Hg] Nst Wstr Work Phone: [facility] 06-11-2024 10:53-0500 Body mass index (BMI) [Ratio] 33.3 kg/m2 Sarah Solomon MD Work Phone: [facility] 06-11-2024 10:53-0500 Body weight 88 kg Sarah Solomon MD Work Phone: [facility] 06-11-2024 10:53-0500 Diastolic blood pressure 82 mm[Hg] Sarah Solomon MD Work Phone: [facility] 06-11-2024 10:53-0500 Systolic blood pressure 124 mm[Hg] Sarah Solomon MD Work Phone: [facility] 06-03-2024 13:57-0500 Body mass index (BMI) [Ratio] 33.47 kg/m2 Halle Haury FITNESS AND WELLNESS DIRECTOR.CO[employer]UME SHOP COORDINATOR Work Phone: [facility] 06-03-2024 13:57-0500 Body weight 88.45 kg Halle Haury FITNESS AND WELLNESS DIRECTOR.COSTUME SHOP COORDINATOR Work Phone: [facility] 06-03-2024 13:57-0500 Diastolic blood pressure 83 mm[Hg] Halle Haury FITNESS AND WELLNESS DIRECTOR.COSTUME SHOP COORDINATOR Work Phone: [facility] 06-03-2024 13:57-0500 Systolic blood pressure 121 mm[Hg] Halle Haury FITNESS AND WELLNESS DIRECTOR.COSTUME SHOP COORDINATOR Work Phone: [facility] 05-25-2024 13:29-0500 Body mass index (BMI) [Ratio] 33.64 kg/m2 Jeanette Patel MD Work Phone: [facility] 05-25-2024 13:29-0500 Body weight 88.91 kg Jeanette Patel MD Work Phone: [facility] 05-25-2024 13:29-0500 Diastolic blood pressure 79 mm[Hg] Jeanette Patel MD Work Phone: [facility] Comment on above: machine (LT) arm 05-25-2024 13:29-0500 Systolic blood pressure 122 mm[Hg] Jeanette Patel MD Work Phone: [facility] Comment on above: machine (LT) arm 05-12-2024 15:35-0500 Body mass index (BMI) [Ratio] 31.93 kg/m2 Sarah Solomon MD Work Phone: [facility] 05-12-2024 15:35-0500 Body weight 84.37 kg Sarah Solomon MD Work Phone: [facility] 05-12-2024 15:35-0500 Diastolic blood pressure 74 mm[Hg] Sarah Solomon MD Work Phone: [facility] 05-12-2024 15:35-0500 Systolic blood pressure 110 mm[Hg] Sarah Solomon MD Work Phone: [facility] 04-28-2024 13:36-0500 Body mass index (BMI) [Ratio] 31.76 kg/m2 Margarita Alcala MD Work Phone: [facility] 04-28-2024 13:36-0500 Body weight 83.92 kg Margarita Alcala MD Work Phone: [facility] 04-28-2024 13:36-0500 Diastolic blood pressure 78 mm[Hg] Margarita Alcala MD Work Phone: [facility] 04-28-2024 13:36-0500 Systolic blood pressure 122 mm[Hg] Margarita Alcala MD Work Phone: [facility] 04-14-2024 10:28-0400 Body mass index (BMI) [Ratio] 30.97 kg/m2 Margarita Alcala MD Work Phone: [facility] 04-14-2024 10:28-0400 Body weight 81.83 kg Margarita Alcala MD Work Phone: [facility] 04-14-2024 10:28-0400 Diastolic blood pressure 62 mm[Hg] Margarita Alcala MD Work Phone: [facility] 04-14-2024 10:28-0400 Systolic blood pressure 100 mm[Hg] Margarita Alcala MD Work Phone: [facility] 04-02-2024 16:17-0400 Body mass index (BMI) [Ratio] 30.73 kg/m2 Marcela Connors FITNESS AND WELLNESS DIRECTOR.CNM Work Phone: [facility] 04-02-2024 16:17-0400 Body weight 81.19 kg Marcela Connors FITNESS AND WELLNESS DIRECTOR.CNM Work Phone: [facility] 04-02-2024 16:17-0400 Diastolic blood pressure 68 mm[Hg] Marcela Connors FITNESS AND WELLNESS DIRECTOR.CNM Work Phone: [facility] 04-02-2024 16:17-0400 Systolic blood pressure 116 mm[Hg] Marcela Connors FITNESS AND WELLNESS DIRECTOR.CNM Work Phone: [facility] 03-17-2024 15:01-0400 Body mass index (BMI) [Ratio] 30.04 kg/m2 Jt Lugo MD Work Phone: [facility] 03-17-2024 15:01-0400 Body weight 79.38 kg Jt Lugo MD Work Phone: [facility] 03-17-2024 15:01-0400 Diastolic blood pressure 62 mm[Hg] Jt Lugo MD Work Phone: [facility] 03-17-2024 15:01-0400 Systolic blood pressure 114 mm[Hg] Jt Lugo MD Work Phone: [facility] 02-17-2024 11:06-0400 Body mass index (BMI) [Ratio] 29.7 kg/m2 Margarita Alcala MD Work Phone: [facility] 02-17-2024 11:06-0400 Body weight 78.47 kg Margarita Alcala MD Work Phone: [facility] 02-17-2024 11:06-0400 Diastolic blood pressure 76 mm[Hg] Margarita Alcala MD Work Phone: [facility] 02-17-2024 11:06-0400 Systolic blood pressure 116 mm[Hg] Margarita Alcala MD Work Phone: [facility] 02-17-2024 08:30-0400 Body mass index (BMI) [Ratio] 29.7 kg/m2 Vilma Farrell MD Work Phone: [facility] 02-17-2024 08:30-0400 Body weight 78.47 kg Vilma Farrell MD Work Phone: [facility] 02-17-2024 08:30-0400 Diastolic blood pressure 76 mm[Hg] Vilma Farrell MD Work Phone: [facility] 02-17-2024 08:30-0400 Systolic blood pressure 116 mm[Hg] Vilma Farrell MD Work Phone: [facility] 01-20-2024 14:21-0400 Body mass index (BMI) [Ratio] 29.18 kg/m2 Sarah Solomon MD Work Phone: [facility] 01-20-2024 14:21-0400 Body weight 77.11 kg Sarah Solomon MD Work Phone: [facility] 01-20-2024 14:21-0400 Diastolic blood pressure 78 mm[Hg] Sarah Solomon MD Work Phone: [facility] 01-20-2024 14:21-0400 Systolic blood pressure 114 mm[Hg] Sarah Solomon MD Work Phone: [facility] 01-01-2024 09:55-0400 Body mass index (BMI) [Ratio] 30.38 kg/m2 Jeanette Patel MD Work Phone: [facility] 01-01-2024 09:55-0400 Body weight 80.29 kg Jeanette Patel MD Work Phone: [facility] 01-01-2024 09:55-0400 Diastolic blood pressure 68 mm[Hg] Jeanette Patel MD Work Phone: [facility] 01-01-2024 09:55-0400 Systolic blood pressure 110 mm[Hg] Jeanette Patel MD Work Phone: [facility] 12-01-2023 12:02-0400 Body mass index (BMI) [Ratio] 30.73 kg/m2 Tyshawn Lorenzana MD Work Phone: [facility] 12-01-2023 12:02-0400 Body weight 81.19 kg Tyshawn Lorenzana MD Work Phone: [facility] 12-01-2023 12:02-0400 Diastolic blood pressure 76 mm[Hg] Tyshawn Lorenzana MD Work Phone: [facility] 12-01-2023 12:02-0400 Systolic blood pressure 112 mm[Hg] Tyshawn Lorenzana MD Work Phone: [facility] 11-13-2023 14:35-0400 Body height 162.6 cm Sharda Wiley FITNESS AND WELLNESS DIRECTOR.COSTUME SHOP COORDINATOR Work Phone: [facility] 11-13-2023 14:35-0400 Body mass index (BMI) [Ratio] 30.52 kg/m2 Sharda Anjum FITNESS AND WELLNESS DIRECTOR.COSTUME SHOP COORDINATOR Work Phone: [facility] 11-13-2023 14:35-0400 Body weight 80.65 kg Sharda Wiley FITNESS AND WELLNESS DIRECTOR.COSTUME SHOP COORDINATOR Work Phone: [facility] 11-13-2023 14:35-0400 Diastolic blood pressure 80 mm[Hg] Sharda Anjum FITNESS AND WELLNESS DIRECTOR.COSTUME SHOP COORDINATOR Work Phone: [facility] 11-13-2023 14:35-0400 Systolic blood pressure 120 mm[Hg] Sharda Wiley FITNESS AND WELLNESS DIRECTOR.COSTUME SHOP COORDINATOR Work Phone: [facility] 08-10-2023 12:47-0500 Body temperature 98.1 [degF] [facility] 08-10-2023 12:47-0500 Diastolic blood pressure 87 mm[Hg] [facility] 08-10-2023 12:47-0500 Heart rate 62 /min [facility] 08-10-2023 12:47-0500 Respiratory rate 14 /min [facility] 08-10-2023 12:47-0500 SaO2% (BldA) [Mass fraction] 100 % [facility] 08-10-2023 12:47-0500 Systolic blood pressure 124 mm[Hg] [facility] 08-10-2023 10:18-0500 Body height 167.64 cm [facility] 08-10-2023 10:18-0500 Body mass index (BMI) [Ratio] 30.2 kg/m2 [facility] 08-10-2023 10:18-0500 Body weight 84.91 kg [facility] 07-17-2023 15:42-0500 Body height 167.64 cm [facility] 07-17-2023 15:42-0500 Body mass index (BMI) [Ratio] 30.1 kg/m2 [facility] 07-17-2023 15:42-0500 Body temperature 97.6 [degF] [facility] 07-17-2023 15:42-0500 Body weight 84.68 kg [facility] 07-17-2023 15:42-0500 Diastolic blood pressure 87 mm[Hg] [facility] 07-17-2023 15:42-0500 Heart rate 89 /min [facility] 07-17-2023 15:42-0500 Respiratory rate 18 /min [facility] 07-17-2023 15:42-0500 SaO2% (BldA) [Mass fraction] 100 % [facility] 07-17-2023 15:42-0500 Systolic blood pressure 121 mm[Hg] [facility] 06-10-2023 10:55-0500 Body height 167.64 cm [facility] 06-10-2023 10:55-0500 Body mass index (BMI) [Ratio] 29.4 kg/m2 [facility] 06-10-2023 10:55-0500 Body temperature 97.1 [degF] [facility] 06-10-2023 10:55-0500 Body weight 82.59 kg [facility] 06-10-2023 10:55-0500 Diastolic blood pressure 82 mm[Hg] [facility] 06-10-2023 10:55-0500 Heart rate 74 /min [facility] 06-10-2023 10:55-0500 Respiratory rate 16 /min [facility] 06-10-2023 10:55-0500 SaO2% (BldA) [Mass fraction] 100 % [facility] 06-10-2023 10:55-0500 Systolic blood pressure 118 mm[Hg] [facility] 05-11-2023 17:06-0500 Body height 167.64 cm [facility] 05-11-2023 17:06-0500 Body mass index (BMI) [Ratio] 29.5 kg/m2 [facility] 05-11-2023 17:06-0500 Body temperature 97.5 [degF] [facility] 05-11-2023 17:06-0500 Body weight 83 kg [facility] 05-11-2023 17:06-0500 Diastolic blood pressure 98 mm[Hg] [facility] 05-11-2023 17:06-0500 Heart rate 101 /min [facility] 05-11-2023 17:06-0500 Respiratory rate 16 /min [facility] 05-11-2023 17:06-0500 SaO2% (BldA) [Mass fraction] 98 % [facility] 05-11-2023 17:06-0500 Systolic blood pressure 119 mm[Hg] [facility] 02-24-2023 15:52-0400 Body height 167.64 cm [facility] 02-24-2023 15:52-0400 Body mass index (BMI) [Ratio] 29 kg/m2 [facility] 02-24-2023 15:52-0400 Body temperature 97.3 [degF] [facility] 02-24-2023 15:52-0400 Body weight 81.78 kg [facility] 02-24-2023 15:52-0400 Diastolic blood pressure 79 mm[Hg] [facility] 02-24-2023 15:52-0400 Heart rate 106 /min [facility] 02-24-2023 15:52-0400 Respiratory rate 18 /min [facility] 02-24-2023 15:52-0400 SaO2% (BldA) [Mass fraction] 98 % [facility] 02-24-2023 15:52-0400 Systolic blood pressure 120 mm[Hg] [facility] 01-08-2023 16:23-0400 Body temperature 97.8 [degF] [facility] 01-08-2023 16:23-0400 Diastolic blood pressure 76 mm[Hg] [facility] 01-08-2023 16:23-0400 Heart rate 78 /min [facility] 01-08-2023 16:23-0400 Respiratory rate 14 /min [facility] 01-08-2023 16:23-0400 SaO2% (BldA) [Mass fraction] 99 % [facility] 01-08-2023 16:23-0400 Systolic blood pressure 126 mm[Hg] [facility] 01-08-2023 15:15-0400 Body height 167.64 cm [facility] 01-08-2023 15:15-0400 Body mass index (BMI) [Ratio] 29.6 kg/m2 [facility] 01-08-2023 15:15-0400 Body weight 83.27 kg [facility] 06-07-2022 18:58-0500 Body temperature 98.6 [degF] Everardo Patel APRN.COSTUME SHOP COORDINATOR Work Phone: [facility] 06-07-2022 18:58-0500 Body weight 78.74 kg Everardo Patel APRN.COSTUME SHOP COORDINATOR Work Phone: [facility] 06-07-2022 18:58-0500 Diastolic blood pressure 84 mm[Hg] Everardo Patel APRN.COSTUME SHOP COORDINATOR Work Phone: [facility] 06-07-2022 18:58-0500 Heart rate 66 /min Everardo Patel APRN.COSTUME SHOP COORDINATOR Work Phone: [facility] 06-07-2022 18:58-0500 Respiratory rate 18 /min Everardo Patel APRN.COSTUME SHOP COORDINATOR Work Phone: [facility] 06-07-2022 18:58-0500 SaO2% (BldA) [Mass fraction] 100 % Everardo Patel APRN.COSTUME SHOP COORDINATOR Work Phone: [facility] 06-07-2022 18:58-0500 Systolic blood pressure 136 mm[Hg] Everardo Patel APRN.COSTUME SHOP COORDINATOR Work Phone: [facility] 02-22-2022 16:09-0400 Body temperature 98.7 [degF] [facility] Work Phone: 02-22-2022 16:09-0400 Diastolic blood pressure 77 mm[Hg] [facility] Work Phone: 02-22-2022 16:09-0400 Heart rate 72 /min [facility] Work Phone: 02-22-2022 16:09-0400 Respiratory rate 16 /min [facility] Work Phone: 02-22-2022 16:09-0400 SaO2% (BldA) [Mass fraction] 98 % [facility] Work Phone: 02-22-2022 16:09-0400 Systolic blood pressure 116 mm[Hg] [facility] Work Phone: 02-20-2022 16:39-0400 Body height 165.1 cm [facility] Work Phone: 02-20-2022 16:39-0400 Body mass index (BMI) [Ratio] 33.1 kg/m2 [facility] Work Phone: 02-20-2022 16:39-0400 Body weight 90.26 kg [facility] Work Phone: 02-17-2022 14:57-0400 Heart rate 95 /min [facility] Work Phone: 02-17-2022 14:57-0400 SaO2% (BldA) [Mass fraction] 97 % [facility] Work Phone: 02-17-2022 13:22-0400 Body temperature 98.4 [degF] [facility] Work Phone: 02-17-2022 13:22-0400 Diastolic blood pressure 69 mm[Hg] [facility] Work Phone: 02-17-2022 13:22-0400 Systolic blood pressure 139 mm[Hg] [facility] Work Phone: 02-17-2022 12:53-0400 Body height 165.1 cm [facility] Work Phone: 02-17-2022 12:53-0400 Body mass index (BMI) [Ratio] 33.1 kg/m2 [facility] Work Phone: 02-17-2022 12:53-0400 Body weight 90.26 kg [facility] Work Phone: 12-22-2021 21:18-0400 Body height 165.1 cm [facility] Work Phone: 12-22-2021 21:18-0400 Body mass index (BMI) [Ratio] 31.6 kg/m2 [facility] Work Phone: 12-22-2021 21:18-0400 Body temperature 97.8 [degF] [facility] Work Phone: 12-22-2021 21:18-0400 Body weight 86.18 kg [facility] Work Phone: 12-22-2021 21:18-0400 Diastolic blood pressure 96 mm[Hg] [facility] Work Phone: 12-22-2021 21:18-0400 Heart rate 89 /min [facility] Work Phone: 12-22-2021 21:18-0400 Respiratory rate 16 /min [facility] Work Phone: 12-22-2021 21:18-0400 SaO2% (BldA) [Mass fraction] 97 % [facility] Work Phone: 12-22-2021 21:18-0400 Systolic blood pressure 115 mm[Hg] [facility] Work Phone: 11-22-2021 13:53-0400 Diastolic blood pressure 57 mm[Hg] [facility] Work Phone: 11-22-2021 13:53-0400 Heart rate 91 /min [facility] Work Phone: 11-22-2021 13:53-0400 Systolic blood pressure 123 mm[Hg] [facility] Work Phone: 11-22-2021 13:52-0400 Body temperature 98.2 [degF] [facility] Work Phone: 11-22-2021 13:52-0400 SaO2% (BldA) [Mass fraction] 99 % [facility] Work Phone: 11-22-2021 13:43-0400 Body height 165.1 cm [facility] Work Phone: 11-22-2021 13:43-0400 Body mass index (BMI) [Ratio] 30.7 kg/m2 [facility] Work Phone: 11-22-2021 13:43-0400 Body weight 83.9 kg [facility] Work Phone: 11-04-2021 06:53-0400 Heart rate 80 /min Dr. David Mckinney Work Phone: [facility] Work Phone: 11-04-2021 06:53-0400 SaO2% (BldA) [Mass fraction] 98 % Dr. David Mckinney Work Phone: [facility] Work Phone: 11-04-2021 04:23-0400 Body temperature 97.8 [degF] Dr. David Mckinney Work Phone: [facility] Work Phone: 11-04-2021 04:23-0400 Diastolic blood pressure 57 mm[Hg] Dr. David Mckinney Work Phone: [facility] Work Phone: 11-04-2021 04:23-0400 Systolic blood pressure 106 mm[Hg] Dr. David Mckinney Work Phone: [facility] Work Phone: 11-03-2021 21:27-0400 Body height 165.[address] David Mckinney Work Phone: [facility] Work Phone: 11-03-2021 21:27-0400 Body mass index (BMI) [Ratio] 29.9 kg/m2 Dr. David Mckinney Work Phone: [facility] Work Phone: 11-03-2021 21:27-0400 Body weight 81.[address] David Mckinney Work Phone: [facility] Work Phone: 09-13-2021 14:46-0400 Heart rate 68 /min Dr. David Mckinney Work Phone: [facility] Work Phone: 09-13-2021 14:46-0400 Respiratory rate 16 /min Dr. David Mckinney Work Phone: [facility] Work Phone: 09-13-2021 14:46-0400 SaO2% (BldA) [Mass fraction] 98 % Dr. David Mckinney Work Phone: [facility] Work Phone: 09-13-2021 14:29-0400 Diastolic blood pressure 74 mm[Hg] Dr. David Mckinney Work Phone: [facility] Work Phone: 09-13-2021 14:29-0400 Systolic blood pressure 109 mm[Hg] Dr. David Mckinney Work Phone: [facility] Work Phone: 09-13-2021 11:20-0400 Body mass index (BMI) [Ratio] 27.3 kg/m2 Dr. David Mckinney Work Phone: [facility] Work Phone: 09-13-2021 11:20-0400 Body temperature 98 [degF] Dr. David Mckinney Work Phone: [facility] Work Phone: 09-13-2021 11:20-0400 Body weight 74.[address] David Mckinney Work Phone: [facility] Work Phone: 07-19-2021 09:45-0500 Body mass index (BMI) [Ratio] 27.9 kg/m2 Dr. David Mckinney Work Phone: [facility] Work Phone: 07-19-2021 09:45-0500 Body temperature 98 [degF] Dr. David Mckinney Work Phone: [facility] Work Phone: 07-19-2021 09:45-0500 Body weight 76.[address] David Mckinney Work Phone: [facility] Work Phone: 07-19-2021 09:45-0500 Diastolic blood pressure 72 mm[Hg] Dr. David Mckinney Work Phone: [facility] Work Phone: 07-19-2021 09:45-0500 Heart rate 111 /min Dr. David Mckinney Work Phone: [facility] Work Phone: 07-19-2021 09:45-0500 Respiratory rate 16 /min Dr. David Mckinney Work Phone: [facility] Work Phone: 07-19-2021 09:45-0500 SaO2% (BldA) [Mass fraction] 99 % Dr. David Mckinney Work Phone: [facility] Work Phone: 07-19-2021 09:45-0500 Systolic blood pressure 116 mm[Hg] Dr. David cMkinney Work Phone: [facility] Work Phone: Encounters Encounter Date Encounter Type Care Provider Facility Start: 03-22-2025 End: 03-22-2025 ambulatory JT LUGO Facility:[facility] Start: 03-17-2025 End: 03-17-2025 ambulatory JEANETTE PATEL Facility:[facility] Start: 03-10-2025 End: 03-10-2025 Emergency department patient visit Dr. David Mckinney MD Work Phone: -Emergency Department Work Phone: Start: 02-10-2025 End: 02-10-2025 ambulatory JT LUGO Facility:[facility] Start: 02-09-2025 End: 02-09-2025 Patient encounter procedure Jt Lugo MD Work Phone: OB/Gynecology Comment on above: Encounter for superv ision of high risk in second trimester, antepartum (HCC) (Primary Dx); Chronic hypertension complicating or reason for care during childbirth (HCC); Late care (HCC); 24 weeks gestation of (HCC); Nicotine use; Heartburn during in second trimester (HCC); Iron deficiency anemia secondary to inadequate dietary iron intake; Screening for diabetes mellitus Start: 02-09-2025 End: 02-09-2025 ambulatory JT LUGO Facility:[facility] Start: 02-03-2025 End: 02-03-[address] David Mckinney MD Work Phone: -Laboratory Specimen Start: 02-03-2025 End: 02-03-[address] David Mckinney MD -Laboratory Specimen Work Phone: Start: 02-03-2025 End: 02-03-2025 willow Mckinney Facility:[facility] Start: 02-01-2025 End: 02-01-[address] David Mckinney MD Work Phone: -Laboratory [facility] Start: 02-01-2025 End: 02-01-[address] David Mckinney MD -Laboratory [facility] Start: 02-01-2025 End: 02-01-2025 ambulatory David Mckinney Facility:[facility] Start: 01-28-2025 End: 01-28-2025 Patient encounter procedure Kale Zimmerman [place] [facility] Work Phone: Start: 01-28-2025 End: 01-28-[address] David Mckinney MD Work Phone: [facility] Start: 01-13-2025 End: 01-13-2025 Telephone encounter Nurse Fire Production Operator Shelley Mathews Work Phone: Obstetrics/Gynecology Comment on [...] 20 weeks gestation of (HCC) Encounter for leatha seals screening for malformation using ultrasound (HCC) (Primary Dx); 20 weeks gestation of (HCC) Start: 01-12-2025 End: 01-12-2025 ambulatory JOHANA TURNER Facility:[facility] Start: 01-10-2025 End: 01-10-2025 ambulatory SOY CASSIDY Facility:[facility] Start: 12-31-2024 End: 12-31-2024 ambulatory SOY CASSIDY Facility:[facility] Start: 12-31-2024 End: 12-31-2024 Patient encounter [...] End: 2024 ambulatory Jo Sweeney RN NURSE TAX EVALUATOR Comment on above: Headache Start: 12-11-2024 End: 12-11-2024 Emergency department patient visit Dr. David Mckinney MD Work Phone: -Emergency Department Work Phone: Start: 11-25-2024 End: 01-25-2025 Follow-up encounter Johana Turner APRN.CNM Work Phone: OB/Gynecology Start: 11-19-2024 End: 11-19-2024 ambulatory JOHANA TURNER Facility:[facility] Start: 11-19-2024 End: 11-19-2024 Telephone encounter [...] Start: 11-18-2024 End: 11-18-2024 ambulatory JOHANA TURNER Facility:[facility] Start: 11-11-2024 End: 11-11-2024 ambulatory SHARDA NIEVESF Facility:[facility] Start: 10-22-2024 End: 10-22-2024 E-mail encounter from caregiver Halle Orellana APRN.CNP Work Phone: OB/Gynecology Start: 10-22-2024 End: 10-22-2024 Patient encounter procedure Halle Orellana APRN.CNP Work Phone: OB/Gynecology Comment on above: New Ob appointment Start: 10-21-2024 End: 10-21-[address] David Mckinney MD Work Phone: [facility] Work Phone: Start: 10-21-2024 End: 10-21-2024 Patient encounter procedure Rizwan Cárdenas DO -Ultrasound, [facility] Work Phone: Start: 10-21-2024 End: 10-21-[address] [facility] Facility:[facility] Start: 10-11-2024 End: 10-12-2024 Emergency department patient visit Dr. David Mckinney MD Work Phone: -Emergency Department Work Phone: Start: 10-08-2024 End: 10-13-2024 Telephone encounter Margarita Hernandez RN Maternal Medicine Comment on above: Mill Dresser - O ther (Initial OB RN CC pool/) Start: 10-02-2024 End: 10-02-2024 Emergency department patient visit Dr. David Mckinney MD Work Phone: -Emergency Department Work Phone: Start: 09-16-2024 End: 09-16-2024 ambulatory [facility] Facility:[facility] Start: 09-16-2024 End: 09-16-2024 Patient encounter procedure Hortencia Gould APRN.COSTUME SHOP COORDINATOR Work Phone: OB/Gynecology Comment on above: Encounter for IUD in sertion (Primary Dx) Start: 08-06-2024 End: 10-06-2024 Follow-up encounter Sharda Valero APRN.COSTUME SHOP COORDINATOR Work Phone: OB/Gynecology Comment on above: Results Start: 07-29-2024 End: 07-29-2024 ambulatory [facility] Facility:[facility] Start: 07-29-2024 End: 07-29-2024 Patient encounter procedure Sharda Valero APRN.COSTUME SHOP COORDINATOR Work Phone: OB/Gynecology Comment on above: care and examination (Primary Dx); Screening for malignant neoplasm of cervix; Encounter for other general counseling or advice on contraception Start: 07-14-2024 Encounter for genera l adult medical examination without abnormal findings Marcela Connors [facility] Start: 07-01-2024 End: 07-01-2024 ambulatory MARGARITA ALCALA Facility:[facility] Start: 07-01-2024 End: 07-01-2024 Patient encounter procedure Jeanette Patel MD Work Phone: OB/Gynecology Comment on above: care and examination immediately after delivery (Primary Dx) Start: 06-18-2024 End: 06-21-2024 ambulatory Margarita Alcala MD Work Phone: OB/Gynecology Comment on above: Ob Delivery Note Start: 06-17-2024 End: 06-19-2024 Evaluation and management of inpatient Johanaad Turner CNM [facility] Work Phone: Start: 06-17-2024 End: 06-17-2024 ambulatory JOHANA TURNER Facility:[facility] Start: 06-17-2024 End: 06-17-2024 Patient encounter procedure Johana Johnny FITNESS AND WELLNESS DIRECTOR.CNM Work Phone: OB/Gynecology Comment on above: Supervision [...] Start: 06-14-2024 End: 06-14-2024 ambulatory Marcela Connors Facility:[facility] Start: 06-14-2024 End: 06-14-2024 Patient encounter procedure Marcela Connors CNM [facility] Work Phone: Start: 06-11-2024 End: 06-11-2024 ambulatory SARAH SOLOMON Facility:[facility] Start: 06-11-2024 End: 06-11-2024 Patient encounter [...] Start: 06-09-2024 End: 06-09-2024 ambulatory Carlos Morales RNgeneral worker [place] in [place] [address] Comment on above: Blood Management Start: 06-04-2024 End: 06-04-2024 ambulatory HALLE ORELLANA Facility:[facility] Start: 06-03-2024 End: 06-03-2024 Patient encounter [...] Start: 06-03-2024 End: 06-03-2024 ambulatory HALLE ORELLANA Facility:[facility] Start: 06-03-2024 End: 06-07-2024 Telephone encounter Halle Orellana APRN.CNP Work Phone: OB/Gynecology Comment on above: Results Start: 05-25-2024 End: 05-25-2024 ambulatory JEANETTE PATEL Facility:[facility] Start: 05-25-2024 End: 05-25-2024 Patient encounter procedure Jeanette Patel MD Work Phone: OB/Gynecology Comment on above: Supervision of high risk in third trimester (Primary Dx); 34 weeks gestation of Start: 05-20-2024 End: 05-20-2024 ambulatory Deanna Olivares RN NURSE TAX EVALUATOR Comment on above: Patient Update Start: 05-12-2024 End: 05-12-2024 Patient encounter procedure Whi Tech 1 Fire Production Operator [employer] Maternal Medicine Comment on [...] Start: 05-12-2024 End: 05-12-2024 ambulatory JT LUGO Facility:[facility] Start: 04-29-2024 End: 04-29-2024 Telephone encounter Margarita Alcala MD Work Phone: OB/Gynecology Start: 04-28-2024 End: 04-28-2024 ambulatory MARGARITA ALCALA Facility:[facility] Start: 04-28-2024 End: 04-28-2024 Office outpatient visit 15 minutes Margarita Alcala MD Work Phone: OB/Gynecology Comment on above: Supervision of high risk in third trimester (Primary Dx); 30 weeks gestation of ; History of IUFD Start: 04-22-2024 End: 04-22-2024 Telephone encounter Johana Turner APRN.CNM Work Phone: OB/Gynecology Comment on above: OB Pain Start: 04-19-2024 End: 04-19-2024 Telephone encounter Nurse Fire Production Operator Shelley Mathews Work Phone: Obstetrics/Gynecology Comment on above: PRAF Start: 04-14-2024 End: 04-14-2024 Patient encounter procedure Fire Production Operator [employer] Work Phone: Maternal Medicine Comment on above: Encounter for ultras ound to check growth (Primary Dx); History of IUFD; 28 weeks gestation of ; Polyhydramnios in third trimester complication, single or unspecified fetus Supervision of other high risk pregnancies, third trimester (Primary Dx); Polyhydramnios in third trimester complication, single or unspecified fetus; History of IUFD Start: 04-14-2024 End: 04-14-2024 ambulatory MARGARITA ALCALA Facility:[facility] Start: 04-14-2024 End: 04-14-2024 Office outpatient visit 15 minutes Margarita Alcala MD Work Phone: OB/Gynecology Comment on above: 28 weeks gestation o f (Primary Dx); Supervision of high risk in second trimester; History of IUFD; Need for vaccination Start: 04-13-2024 End: 04-13-2024 ambulatory JT LUGO Facility:[facility] Start: 04-02-2024 End: 04-02-2024 Patient encounter procedure Marcela Connors APRN.CNM Work Phone: OB/Gynecology Comment on above: Supervision of high risk in second trimester (Primary Dx); Abdominal pain during in second trimester; 26 weeks gestation of Start: 03-17-2024 End: 03-17-2024 Patient encounter procedure Jt Lugo MD Work Phone: OB/Gynecology Comment on above: Supervision of high risk in second trimester (Primary Dx); History of IUFD; History of gestational hypertension; 24 weeks gestation of Encounter for ultras ound to check growth (Primary Dx); History of IUFD; 24 weeks gestation of Start: 02-18-2024 End: 02-18-2024 Telephone encounter Nurse Fire Production Operator Shelley Mathews Work Phone: Obstetrics/Gynecology Comment on above: PRAF Start: 02-17-2024 End: 02-17-2024 Office outpatient visit 15 minutes Margarita Alcala MD Work Phone: OB/Gynecology Comment on above: Encounter for superv ision of other normal in second trimester (Primary Dx); 20 weeks gestation of ; History of IUFD; History of gestational hypertension Start: 02-17-2024 End: 02-17-2024 Patient encounter procedure Vilma Farrell MD Work Phone: Maternal Medicine Comment on above: History of IUFD (Loida yaniv Dx); Encounter for supervision of other normal in second trimester; History of gestational hypertension; History of drug abuse (HCC); 20 weeks gestation of ; Obesity affecting in second trimester, unspecified obesity type History of IUFD (Loida yaniv Dx) Start: 01-20-2024 End: 01-20-2024 Patient encounter procedure [...] 08-10-2023 End: 08-10-2023 Emergency department patient visit [facility] Work Phone: Start: 07-17-2023 End: 07-17-2023 Emergency department patient visit [facility] Work Phone: Start: 07-04-2023 End: 07-04-2023 ambulatory [facility] Work Phone: Start: 07-04-2023 End: 07-04-2023 Patient encounter procedure [facility] Start: 06-10-2023 End: 06-10-2023 Emergency department patient visit [facility]Emergency Department Work Phone: Start: 05-11-2023 End: 05-11-2023 Emergency department patient visit [facility] Work Phone: Start: 05-01-2023 End: 05-01-2023 ambulatory [facility] Work Phone: Start: 05-01-2023 End: 05-01-2023 Patient encounter procedure [facility] Start: 04-02-2023 End: 04-02-2023 ambulatory [facility] Work Phone: Start: 04-02-2023 End: 04-02-2023 Discharged Recurring [facility]-Physical Therapy Work Phone: Start: 03-12-2023 End: 03-12-2023 Patient encounter procedure [facility] Work Phone: Start: 02-24-2023 End: 02-24-2023 Emergency department patient visit [facility]Emer[facility] Work Phone: Start: 01-08-2023 End: 01-08-2023 Emergency department patient visit [facility] Work Phone: Start: 12-26-2022 End: 12-26-2022 ambulatory [facility] Work Phone: Start: 12-26-2022 End: 12-26-2022 Patient encounter procedure [facility] Start: 10-30-2022 End: 10-30-2022 ambulatory [facility] Work Phone: Start: 10-30-2022 End: 10-30-2022 [facility] Start: 08-16-2022 End: 08-16-2022 ambulatory [facility] Work Phone: Start: 08-16-2022 End: 08-16-2022 [facility] Start: 06-07-2022 End: 06-07-2022 Patient encounter procedure Everardo Jose Alfredo [facility] Work Phone: [facility] Comment on above: Acute otitis media, right (Primary Dx); URI, acute Start: 02-20-2022 End: 02-22-2022 Evaluation and management of inpatient [facility] Start: 02-17-2022 End: 02-17-2022 ambulatory [facility] Work Phone: Start: 02-17-2022 End: 02-17-2022 Patient encounter procedure [facility] Outpatients Start: 02-13-2022 End: 02-13-2022 ambulatory [facility] Work Phone: Start: 02-13-2022 End: 02-13-2022 Patient encounter procedure [facility], Specimen Start: 12-23-2021 End: 12-23-2021 Patient encounter procedure [facility] Start: 12-22-2021 End: 12-22-2021 Emergency department patient visit [facility]Emergency Department Start: 12-13-2021 End: 12-13-2021 Patient encounter procedure [facility], [place] setup operator Off Start: 11-22-2021 End: 11-22-2021 Patient encounter procedure [facility] Outpatients Start: 11-03-2021 End: 11-04-[address] David Mckinney Work Phone: [facility], Outpatients Start: 09-13-2021 End: 09-13-2021 Emergency department patient visit Dr. David Mckinney Work Phone: [facility]Emergency Department Start: 08-01-2021 End: 08-01-[address] David Mckinney Work Phone: [facility]Laboratory, [place] setup operator Off Start: 07-19-2021 End: 07-19-[address] David Mckinney Work Phone: [facility] Start: 07-09-2021 End: 07-09-[address] [facility] Mckinney [facility] [place] setup [facility] Off Procedures Date Procedure Procedure Detail Performing Clinician Start: 03-10-2025 SARS-CoV-2, Influenz a & RSV (PCR) Dr. David Mckinney MD Work Phone: Start: 02-09-2025 Urnls dip stick/tabl et rgnt non-auto w/o micrscp Jt Lugo MD Work Phone: Start: 02-03-2025 Urnls dip stick/tabl et reagent auto microscopy Dr. David Mckinney MD Work Phone: Start: 02-03-[address] David Mckinney MD Work Phone: Start: 01-12-2025 Us preg uterus after 1st trimest / gestation Johana Turner FITNESS AND WELLNESS DIRECTOR.CNM Work Phone: Start: 12-11-2024 Urnls dip stick/tabl et reagent auto microscopy Dr. David Mckinney MD Work Phone: Start: 12-11-[address] David Mckinney MD Work Phone: Start: 11-18-2024 Us uterus l imited 1/> fetuses Johana Turner FITNESS AND WELLNESS DIRECTOR.CNM Work Phone: Start: 11-11-2024 Antibody screen JT LUGO Comment on above: Order Comment: Speci men Type: BLOOD SPECIMENOrdering Facility: [facility] Address: [address] [place] [address] Performed By: #### T SPN ####CC [facility] BLOOD BANKCLIA [id number] MARIKAJemma BICKMORERADHA [id number] [place] [id number] [place] Start: 10-21-2024 Transvaginal obstetr ic ultrasonography Dr. aDvid Mckinney MD Work Phone: Start: 10-12-[address] David Mckinney MD Work Phone: Start: 10-12-2024 Urnls dip stick/tabl et reagent auto microscopy Dr. David Mckinney MD Work Phone: Start: 10-12-[address] David Mckinney MD Work Phone: Start: 09-16-2024 UA DIP,URINE HCG (POC) Hortencia Gould APRN.COSTUME SHOP COORDINATOR Work Phone: Start: 06-17-2024 Urnls dip stick/tabl et rgnt non-auto w/o micrscp Johana Turner FITNESS AND WELLNESS DIRECTOR.CNM Work Phone: Start: 06-11-2024 Urnls dip stick/tabl et rgnt non-auto w/o micrscp Sarah Solomon MD Work Phone: Start: 06-11-2024 Us preg uterus after 1st trimest 06/23 gestation Jt Lugo MD Work Phone: Start: 06-03-2024 Urnls dip stick/tabl et rgnt non-auto w/o micrscp Halle Orellana FITNESS AND WELLNESS DIRECTOR.COSTUME SHOP COORDINATOR Work Phone: Start: 05-25-2024 Urnls dip stick/tabl et rgnt non-auto w/o micrscp Jeanette Patel MD Work Phone: Start: 05-12-2024 RSV VACCINE, BIVALEN T (ABRYSVO) Sarah Solomon MD Work Phone: Start: 05-12-2024 Us preg uterus after 1st trimest 1/ gestation Jt Lugo MD Work Phone: Start: 04-14-2024 Us preg uterus after 1st trimest / gestation Jeanette Patel MD Work Phone: Start: 03-17-2024 Us preg uterus after 1st trimest / gestation Jeanette Patel MD Work Phone: Start: 02-17-2024 Us preg uterus after 1st trimest 06/23 gestation Jeanette Patel MD Work Phone: Start: 01-01-2024 Us nuchal moncada slucency 1st gestation Sharda Anjum FITNESS AND WELLNESS DIRECTOR.COSTUME SHOP COORDINATOR Work Phone: Start: 11-13-2023 Iadna chlamydia trac homatis amplified probe tq [facility]Wiley FITNESS AND WELLNESS DIRECTOR.COSTUME SHOP COORDINATOR Work Phone: Start: 11-13-2023 Us uterus l imited fetuses Sharda Wiley FITNESS AND WELLNESS DIRECTOR.COSTUME SHOP COORDINATOR Work Phone: Start: 08-10-2023 SARS-CoV-2, Influenz a [...] (8 - Td or Tdap) [facility] Start: 07-29-2027 Screening for malign ant neoplasm of cervix Cervical Cancer Screening [facility] Start: 08-01-2025 End: 08-01-2025 Patient encounter procedure 08/01/2025 3:30 PM EST Office Visit OB/Gynecology [address] [place] [address] Sharda Valero APRN.COSTUME SHOP COORDINATOR [address] [place] [address] Annual OB/Gynecology Comment on above: Annual Start: 05-04-2025 End: 05-04-2025 Patient encounter procedure Maternal Medicine Comment on above: Growth Growth /OB Start: 04-06-2025 End: 04-06-2025 Patient encounter procedure Maternal Medicine Comment on above: Growth ob Start: 03-23-2025 End: 03-23-2025 Patient encounter procedure 03/23/2025 10:10 AM EDT Routine Office Visit OB/Gynecology [address] [place] [address] Jt Lugo MD [address] [place] [address] OB OB/Gynecology Comment on above: OB Start: 03-09-2025 End: 03-09-2025 ambulatory 03/09/2025 11:00 AM EDT Results Only Bari Medina [facility] [address] [place] [address] LAB [facility] Comment on above: LAB Start: 03-09-2025 End: 03-09-2025 Patient encounter procedure Maternal Medicine Comment on above: Growth Growth /OB Start: 02-21-2025 Influenza vaccination [facility] Start: 02-09-2025 End: 05-11-2025 ANEMIA REFLEX PANEL ANEMIA REFLEX PANEL Lab Routine Encounter for supervision of high risk in second trimester, antepartum (HCC) Chronic hypertension complicating or reason for care during childbirth (HCC) Late care (HCC) Expected: 02/09/2025, Expires: 05/11/2025 [facility] Comment on above: Expected: 02/09/2025 , Expires: 05/11/2025 Start: 02-09-2025 End: 02-09-2026 GESTATIONAL GLUCOSE SCREEN, 1-HOUR, 50 GRAM, NON-FASTING GESTATIONAL GLUCOSE SCREEN, 1-HOUR, 50 GRAM, NON-FASTING Lab Routine Encounter for supervision of high risk in second trimester, antepartum (HCC) Chronic hypertension complicating or reason for care during childbirth (HCC) Late care (HCC) Expected: 02/09/2025, Expires: 02/09/2026 [facility] Work Phone: Comment on above: Expected: 02/09/2025 , Expires: 02/09/2026 Start: 02-09-2025 End: 02-09-2026 SYPHILIS TREPONEMAL W/REFLEX SYPHILIS TREPONEMAL W/REFLEX Lab Routine Encounter for supervision of high risk in second trimester, antepartum (HCC) Chronic hypertension complicating or reason for care during childbirth (HCC) Late care (HCC) Expected: 02/09/2025, Expires: 02/09/2026 [facility] Comment on above: Expected: 02/09/2025 , Expires: 02/09/2026 Start: 02-09-2025 End: 02-09-2025 Patient encounter procedure 02/09/2025 10:10 AM EDT Routine Office Visit OB/Gynecology [address] [place], [place] [id number] Jt Lugo MD [address] [place] [address] OB OB/Gynecology Comment on above: OB Start: 01-12-2025 End: 01-12-2025 Patient encounter procedure Maternal Medicine Comment on above: Anatomy Anatomy US at 9am /O B Start: 12-31-2024 End: 04-01-2025 Bacteria identified in Urine by Culture BACTERIAL CULTURE, URINE Microbiology Routine Dysuria Expected: 12/31/2024, Expires: 04/01/2025 [facility] Comment on above: Expected: 12/31/2024 , Expires: 04/01/2025 Start: 12-31-2024 End: 04-01-2025 CBC panel - Blood by Automated count COMPLETE BLOOD COUNT Lab Routine History of gestational hypertension 18 weeks gestation of (HCC) Expected: 12/31/2024, Expires: 04/01/2025 [facility] Comment on above: Expected: 12/31/2024 , Expires: 04/01/2025 Start: 12-31-2024 End: 04-01-2025 Comprehensive metabolic 2000 panel - Serum or Plasma COMPREHENSIVE METABOLIC PANEL Lab Routine History of gestational hypertension Expected: 12/31/2024, Expires: 04/01/2025 [facility] Work Phone: Comment on above: Expected: 12/31/2024 , Expires: 04/01/2025 Start: 12-31-2024 End: 04-01-2025 Protein/Creatinine [Mass Ratio] in Urine PROTEIN / CREATININE RATIO Lab Routine History of gestational hypertension Expected: 12/31/2024, Expires: 04/01/2025 [facility] Comment on above: Expected: 12/31/2024 , Expires: 04/01/2025 Start: 12-31-2024 End: 04-01-2025 TOXICOLOGY SCREEN, ROUTINE URINE TOXICOLOGY SCREEN, ROUTINE URINE Lab Routine History of drug abuse ([facility]) Expected: 12/31/2024 (Approximate), Expires: 04/01/2025 [facility] Comment on above: Expected: 12/31/2024 (Approximate), Expires: 04/01/2025 Start: 12-31-2024 End: 12-31-2024 Patient encounter procedure 12/31/2024 1:10 PM EDT Routine Office Visit OB/Gynecology [address] [place] [address] Soy Cassidy MD [address] [place] [address] 1st OB - LMP 08/19/24 OB/Gynecology Comment on above: 1st OB - LMP 08/19/24 Start: 12-17-2024 End: 12-17-2024 Patient encounter procedure 12/17/2024 12:50 PM EDT Routine Office Visit OB/Gynecology [address] [place] [address] Margarita Alcala MD [address] [place] [address] 1st OB - LMP 08/19/24 OB/Gynecology Comment on above: 1st OB - LMP 08/19/24 Start: 12-11-2024 [facility] Start: 12-11-2024 [facility] Start: 11-22-2024 End: 11-22-2024 Patient encounter procedure 11/22/2024 12:50 PM EDT Routine Office Visit OB/Gynecology [address] [place] [address] Margarita Alcala MD [address] [place] [address] New ob lmp 08/19/24 OB/Gynecology Comment on above: New ob lmp 08/19/24 Start: 11-18-2024 End: 02-17-2025 Chromosome 21 trisomy [Presence] in Blood or Tissue by Cytogenetics [facility] Comment on above: Expected: 11/18/2024 , Expires: 02/17/2025 Start: 11-18-2024 End: 11-18-2025 OBSTETRIC ULTRASOUND WHI OBSTETRIC ULTRASOUND WHI Anc Imaging Routine with uncertain dates, antepartum (HCC) 12 weeks gestation of (HCC) Expected: 11/18/2024, Expires: 11/18/2025 [facility] Comment on above: Expected: 11/18/2024 , Expires: 11/18/2025 Start: 11-18-2024 End: 02-17-2025 TYPE + SCREEN TYPE + SCREEN Blood Bank Routine with uncertain dates, antepartum (HCC) 12 weeks gestation of (HCC) Expected: 11/18/2024, Expires: 02/17/2025 [facility] Work Phone: Comment on above: Expected: 11/18/2024 , Expires: 02/17/2025 Start: 11-12-2024 End: 02-11-2025 CBC panel - Blood by Automated count COMPLETE BLOOD COUNT Lab Routine 6 weeks gestation of care, subsequent in first trimester Expected: 11/12/2024, Expires: 02/11/2025 [facility] Work Phone: Comment on above: Expected: 11/12/2024 , Expires: 02/11/2025 Start: 11-12-2024 End: 02-11-2025 Hemoglobin A1c in Blood HEMOGLOBIN A1C Lab Routine 6 weeks gestation of care, subsequent in first trimester Expected: 11/12/2024, Expires: 02/11/2025 [facility] Comment on above: Expected: 11/12/2024 , Expires: 02/11/2025 Start: 11-12-2024 End: 02-11-2025 Hepatitis B virus surface Ag [Presence] in Serum HEPATITIS B SURFACE ANTIGEN Lab Routine 6 weeks gestation of care, subsequent in first trimester Expected: 11/12/2024, Expires: 02/11/2025 [facility] Comment on above: Expected: 11/12/2024 , Expires: 02/11/2025 Start: 11-12-2024 End: 02-11-2025 Hepatitis C virus Ab [Presence] in Serum HEPATITIS C ANTIBODY IA WITH CONFIRMATION Lab Routine 6 weeks gestation of care, subsequent in first trimester Expected: 11/12/2024, Expires: 02/11/2025 [facility] Comment on above: Expected: 11/12/2024 , Expires: 02/11/2025 Start: 11-12-2024 End: 02-11-2025 HIV 1+2 Ab [Presence] in Serum or Plasma by Immunoassay HIV 1/2 COMBO WITH REFLEX TO DIFFERENTIATION Lab Routine 6 weeks gestation of care, subsequent in first trimester Expected: 11/12/2024, Expires: 02/11/2025 [facility] Comment on above: Expected: 11/12/2024 , Expires: 02/11/2025 Start: 11-12-2024 End: 02-11-2025 RUBELLA IGG ANTIBODY RUBELLA IGG ANTIBODY Lab Routine 6 weeks gestation of care, subsequent in first trimester Expected: 11/12/2024, Expires: 02/11/2025 [facility] Comment on above: Expected: 11/12/2024 , Expires: 02/11/2025 Start: 11-12-2024 End: 02-11-2025 SYPHILIS TOTAL W/REFLEX SYPHILIS TOTAL W/REFLEX Lab Routine 6 weeks gestation of care, subsequent in first trimester Expected: 11/12/2024, Expires: 02/11/2025 [facility] Comment on above: Expected: 11/12/2024 , Expires: 02/11/2025 Start: 11-12-2024 End: 02-11-2025 TYPE + SCREEN TYPE + SCREEN Blood Bank Routine 6 weeks gestation of care, subsequent in first trimester Expected: 11/12/2024, Expires: 02/11/2025 [facility] Comment on above: Expected: 11/12/2024 , Expires: 02/11/2025 Start: 11-12-2024 End: 11-12-2024 ambulatory 11/12/2024 11:15 AM EDT Results Only [place] [facility] Laboratory [address] [place] [address] [facility] Start: 10-25-2024 End: 10-25-2024 Patient encounter procedure 10/25/2024 11:00 AM EDT Initial Office Visit OB/Gynecology [address] [place] [address] Halle Orellana APRN.[employer] COORDINATOR [address] [place] [address] New ob lmp 08/19/24 OB/Gynecology Comment on above: New ob lmp 08/19/24 Start: 10-12-2024 Bacteria identified in Urine by Culture Urine Culture [facility] Start: 10-12-2024 Transvaginal obstetr ic ultrasonography [facility] Start: 10-12-2024 [facility] Start: 10-02-2024 End: 10-02-2024 [facility] Start: 08-03-2024 End: 08-03-2024 Patient encounter procedure 08/03/2024 9:30 AM EST Office Visit OB/Gynecology [address] [place] [address] Sharda Valero APRN.[employer] COORDINATOR [address] [place] [address] IUD insert OB/Gynecology Comment on above: IUD insert Start: 07-29-2024 End: 07-29-2024 Patient encounter procedure 07/29/2024 1:30 PM EST Office Visit OB/Gynecology [address] [place] [address] Sharda Valero, [employer] COORDINATOR [address] [place] [address] PP OB/Gynecology Comment on above: PP Start: 07-05-2024 End: 07-05-2024 ambulatory 07/05/2024 1:30 PM EST Infusion Center Hematology/Oncology [address] [place] [address] 200 MG IRON SUCROSE 5/ 5 DOSES AUTH 06/22 * Hematology/Oncology Comment on above: 200 MG IRON SUCROSE 5/ 5 DOSES AUTH 06/22 * Start: 06-30-2024 End: 06-30-2024 ambulatory 06/30/2024 3:00 PM EST Infusion Center Hematology/Oncology [address] [place] [address] 200 MG IRON SUCROSE 3/ 5 DOSES AUTH 06/22 * Hematology/Oncology Comment on above: 200 MG IRON SUCROSE 3/ 5 DOSES AUTH 06/22 * Start: 06-28-2024 End: 06-28-2024 ambulatory 06/28/2024 9:00 AM EST Infusion Center Hematology/Oncology [address] [place] [address] 200 MG IRON SUCROSE / 5 DOSES AUTH EXP 06/22 * Hematology/Oncology Comment on above: 200 MG IRON SUCROSE / 5 DOSES AUTH EXP 06/22 * Start: 06-22-2024 End: 06-22-2024 ambulatory 06/22/2024 8:[address] [facility] Infusion Center Hematology/Oncology [address] [place] [address] 200 MG IRON SUCROSE 2/ 5 DOSES AUTH EXP 06/22 * Hematology/Oncology Comment on above: 200 MG IRON SUCROSE 2/ 5 DOSES AUTH EXP 06/22 * Start: 06-19-2024 Patient discharge [facility] Start: 06-18-2024 Administration of medication [facility] Start: 06-18-2024 Application of ice collar, cap or bag [facility] Start: 06-18-2024 Catheterization of vein [facility] Start: 06-18-2024 Introduction of urin liu catheter [facility] Start: 06-18-2024 Measuring intake and output [facility] Start: 06-18-2024 Notification of physician [facility] Start: 06-18-2024 Procedure discontinued [facility] Start: 06-18-2024 Provision of activit y privileges [facility] Start: 06-18-2024 Vital signs measurements [facility] Start: 06-18-2024 End: 06-18-2024 [facility] Start: 06-18-2024 Documentation procedure [facility] Start: 06-17-2024 Admission procedure [facility] Start: 06-17-2024 End: 06-17-2024 ambulatory 06/17/2024 3:[address] [facility] Infusion Center Hematology/Oncology [address] [place] [address] START 200 MG IRON SUCROSE 1/ 5 DOSES AUTH EXP 06/22 * Hematology/Oncology Comment on above: START 200 MG IRON FLYNN CROSE 1/ 5 DOSES AUTH EXP 06/22 * Start: 06-17-2024 End: 06-17-2024 Patient encounter procedure OB/Gynecology Comment on above: OB Routine OB/NST Start: 06-17-2024 Consultation [facility] Start: 06-14-2024 Jerzy's obstetrical version Version with Anesthesia (Not Applicable) [facility] Start: 06-14-2024 Catheterization of vein [facility] Start: 06-14-2024 Nonstress test [facility] Start: 06-14-2024 [facility] Start: 06-11-2024 End: 06-11-2024 Patient encounter [...] (1 - Risk 1-dose series) [facility] Start: 04-28-2024 End: 04-28-2024 Patient encounter procedure 04/28/2024 1:30 PM EST Routine Office Visit OB/Gynecology [address] [place] [address] Margarita Alcala MD [address] [place] [address] Routine OB OB/Gynecology Comment on above: Routine OB Start: 04-14-2024 End: 04-14-2024 Patient encounter procedure [facility] Comment on above: Growth US OB Routine OB/Growth Start: 04-13-2024 End: 04-13-2024 Patient encounter procedure OB/Gynecology Comment on above: [facility] Start: 03-19-2024 End: 03-19-2024 ambulatory 03/19/2024 2:00 PM EDT Results Only [place] [facility] Laboratory [address] [place] [address] [place] [facility] Start: 03-17-2024 End: 03-17-2024 Patient encounter procedure OB/Gynecology Comment on above: growth OB Start: 03-17-2024 End: 06-16-2024 CBC W Auto Differential panel - Blood COMPLETE BLOOD COUNT AND DIFFERENTIAL Lab Routine History of IUFD History of gestational hypertension Supervision of high risk in second trimester 24 weeks gestation of Expected: 03/17/2024, Expires: 06/16/2024 [facility] Comment on above: Expected: 03/17/2024 , Expires: 06/16/2024 Start: 03-17-2024 End: 06-16-2024 GESTATIONAL GLUCOSE SCREEN, 1-HOUR, 50 GRAM, NON-FASTING GESTATIONAL GLUCOSE SCREEN, 1-HOUR, 50 GRAM, NON-FASTING Lab Routine History of IUFD History of gestational hypertension Supervision of high risk in second trimester 24 weeks gestation of Expected: 03/17/2024, Expires: 06/16/2024 [facility] Work Phone: Comment on above: Expected: 03/17/2024 , Expires: 06/16/2024 Start: 03-17-2024 End: 06-16-2024 SYPHILIS TOTAL W/REFLEX SYPHILIS TOTAL W/REFLEX Lab Routine History of IUFD History of gestational hypertension Supervision of high risk in second trimester 24 weeks gestation of Expected: 03/17/2024, Expires: 06/16/2024 [facility] Comment on above: Expected: 03/17/2024 , Expires: 06/16/2024 Start: 03-16-2024 End: 03-16-2024 Patient encounter procedure 03/16/2024 10:10 AM EDT Routine Office Visit OB/Gynecology [address] [place] [id number] Jt Lugo MD [address] [place] [id number] [facility] OB/Gynecology Comment on above: [facility] Start: 02-22-2024 Covid-19 Vaccine ( season) Covid-19 Vaccine () [facility] Start: 02-22-2024 Influenza vaccination [facility] Start: 02-17-2024 End: 02-17-2024 Patient encounter procedure [facility]aternal [facility] Comment on above: Anatomy OB AnatomyMFM consult Start: 01-20-2024 End: 01-20-2024 Patient encounter procedure [facility]aternal [facility] Comment on above: Growth/MFM CONSULT OB Start: 01-01-2024 End: 04-01-2024 Hemoglobin A1c in Blood [facility] Comment on above: Expected: 01/01/2024 , Expires: 04/01/2024 Start: 01-01-2024 End: 04-01-2024 Hepatitis B virus surface Ag [Presence] in Serum [facility] Comment on above: Expected: 01/01/2024 , Expires: 04/01/2024 Start: 01-01-2024 End: 04-01-2024 Hepatitis C virus Ab [Presence] in Serum [facility] Comment on above: Expected: 01/01/2024 , Expires: 04/01/2024 Start: 01-01-2024 End: 04-01-2024 HIV 1+2 Ab [Presence] in Serum or Plasma by Immunoassay [facility] Comment on above: Expected: 01/01/2024 , Expires: 04/01/2024 Start: 01-01-2024 End: 12-31-2024 OBSTETRIC ULTRASOUND WHI OBSTETRIC ULTRASOUND WHI Anc Imaging Routine Encounter for supervision of other normal in second trimester History of IUFD Expected: 01/01/2024, Expires: 12/31/2024 [facility] Work Phone: Comment on above: Expected: 01/01/2024 , Expires: 12/31/2024 Start: 01-01-2024 End: 04-01-2024 RUBELLA IGG ANTIBODY [facility] Comment on above: Expected: 01/01/2024 , Expires: 04/01/2024 Start: 01-01-2024 End: 04-01-2024 SEQUENTIAL SCN FIRST TRIMESTER [facility] Comment on above: Expected: 01/01/2024 , Expires: 04/01/2024 Start: 01-01-2024 End: 04-01-2024 SEQUENTIAL SCN SECOND TRIM SEQUENTIAL SCN SECOND TRIM Lab Routine Encounter for supervision of other normal in second trimester Expected: 01/01/2024, Expires: 04/01/2024 [facility] Comment on above: Expected: 01/01/2024 , Expires: 04/01/2024 Start: 01-01-2024 End: 04-01-2024 SYPHILIS TOTAL W/REFLEX [facility] Comment on above: Expected: 01/01/2024 , Expires: 04/01/2024 Start: 01-01-2024 End: 04-01-2024 TYPE + SCREEN [facility] Comment on above: Expected: 01/01/2024 , Expires: 04/01/2024 Start: 01-01-2024 End: 01-01-2024 Patient encounter procedure OB/Gynecology Comment on above: Nuchal ob LMP 09/27 Start: 11-13-2023 End: 11-12-2024 NUCHAL TRANSLUCENCY WHI NUCHAL TRANSLUCENCY WHI Anc Imaging Routine 6 weeks gestation of Expected: 11/13/2023, Expires: 11/12/2024 [facility] Comment on above: Expected: 11/13/2023 , Expires: 11/12/2024 Start: 08-10-2023 [facility] Start: 07-17-2023 [facility] Start: 06-23-2023 Behavioral Health Screening Behavioral Health Screening [facility] Start: 02-24-2023 [facility] Start: 02-24-2023 Streptococcus pyogen es antigen assay Group A Streptococcus Rapid Screen [facility] Start: 02-21-2023 Covid-19 Vaccine ( season) Covid-19 Vaccine () [facility] Start: 06-07-2022 End: 06-21-2022 Influenza virus A and B RNA and SARS-CoV-2 (COVID-19) N gene panel - Respiratory specimen by OFELIA with probe detection [facility] Work Phone: Comment on above: Expected: 06/07/2022 , Expires: 06/21/2022 Start: 02-22-2022 Patient discharge [facility] Work Phone: Start: 02-22-2022 Consultation [facility] Work Phone: Start: 02-21-2022 Influenza vaccination INFLUENZA (#1) [facility] Start: 02-21-2022 Administration of medication [facility] Work Phone: Start: 02-21-2022 Application of ice collar, cap or bag [facility] Work Phone: Start: 02-21-2022 Catheterization of vein [facility] Work Phone: Start: 02-21-2022 Introduction of urin liu catheter [facility] Work Phone: Start: 02-21-2022 Measuring intake and output [facility] Work Phone: Start: 02-21-2022 Notification of physician [facility] Work Phone: Start: 02-21-2022 Procedure discontinued [facility] Work Phone: Start: 02-21-2022 Provision of activit y privileges [facility] Work Phone: Start: 02-21-2022 Vital signs measurements [facility] Work Phone: Start: 02-21-2022 [facility] Work Phone: Start: 02-20-2022 Admission procedure [facility] Work Phone: Start: 02-17-2022 Eval c/v amniotic fl uid protein qual ea specimen EVAL AMNIOTIC FLUID PROTEIN [facility] Work Phone: Start: 02-17-2022 monitoring lab or phys written report MONITOR W/REPORT [facility] Work Phone: Start: 02-17-2022 nonstress test NON-STRES S TEST [facility] Work Phone: Start: 02-17-2022 Nonstress test [facility] Work Phone: Start: 02-17-2022 Obstetric monitoring [facility] Work Phone: Start: 02-17-2022 Vital signs measurements [facility] Work Phone: Start: 02-17-2022 [facility] Work Phone: Start: 02-17-2022 Patient discharge [facility] Work Phone: Start: 12-22-2021 US.doppler Lower extremity vein [facility] Work Phone: Start: 12-22-2021 [facility] Work Phone: Start: 11-22-2021 Nonstress test [facility] Work Phone: Start: 11-22-2021 Obstetric monitoring [facility] Work Phone: Start: 11-22-2021 Vital signs measurements [facility] Work Phone: Start: 11-22-2021 [facility] Work Phone: Start: 11-04-2021 [facility] Start: 11-03-2021 Nonstress test [facility] Work Phone: Start: 11-03-2021 Obstetric monitoring [facility] Work Phone: Start: 11-03-2021 Vital signs measurements [facility] Work Phone: Start: 11-03-2021 End: 11-03-2021 [facility] Work Phone: Start: 06-23-2021 DEPRESSION ASSESSMENT DEPRESSION ASS ESSMENT [facility] Start: 03-13-2021 COVID-19 VACCINE (2 - Moderna series) COVID-19 VACCINE (2 - Moderna series) [facility] Start: 03-19-2020 Urine microalbumin profile DTaP,Tdap,Td Vaccine (7 - Td or Tdap) [facility] Start: 2017 PAP TESTING PAP TESTING [facility] Start: 2017 Screening for malign ant neoplasm of cervix [facility] Start: 12-28-2015 Urine microalbumin profile DTAP,TDAP,TD (1 - Tdap) [facility] Start: 2014 Anxiety Screening Anxiety Screening [facility] Start: 2014 Depression Screening Depression Scre aaron [facility] Start: 2014 HEPATITIS C SCREENING HEPATITIS C [facility] Start: 2014 Hepatitis C screening Hepatitis C [facility] Start: 2014 HIV SCREENING HIV SCREENING [facility] Start: 2014 HIV screening HIV Screening [facility] Start: 2010 PEDS TO ADULT TRANSI TION ANNUAL ASSESSMENT PEDS TO ADULT TRANSITION ANNUAL ASSESSMENT [facility] Start: 2008 PEDS TO ADULT TRANSI TION INITIAL DISCUSSION PEDS TO ADULT TRANSITION INITIAL DISCUSSION [facility] Start: 12-28-2007 HPV VACCINE (1 - 2-d ose series) HPV VACCINE (1 - 2-dose series) [facility] Start: 1996 HEPATITIS B (1 of 3 - 3-dose series) HEPATITIS B (1 of 3 - 3-dose series) [facility] Bacteria identified in Urine by Culture URINE CULTURE Microbiology Routine 6 weeks gestation of care, subsequent in first trimester 11/13/2023 3:27 PM EDT [facility] Bilirubin measuremen t, urine [facility] Chlamydia trachomatis+Neisseria gonorrhoeae DNA [Presence] in Unspecified specimen by OFELIA with probe detection GONORRHEA/CHLAMYDIA NAAT Lab Routine with uncertain dates, antepartum (HCC) 12 weeks gestation of (HCC) 11/18/2024 1:57 PM EDT [facility] nonstress test NON-S TRESS TEST Procedures Routine History of IUFD Ordered: 04/28/2024 [facility] Work Phone: Comment on above: Ordered: 04/28/2024 Hemoglobin [Presence ] in Urine [facility] Insertion intrauteri ne device iud INSERT INTRAUTERINE DEVICE Procedures Routine Encounter for other general counseling or advice on contraception Ordered: 07/29/2024 [facility] Work Phone: Comment on above: Ordered: 07/29/2024 Measurement of keton es in urine using dipstick [facility] Microscopic urinalysis [facility] End: 04-16-2024 OBSTETRIC ULTRASOUND WHI OBSTETRIC ULTRASOUND WHI Anc Imaging Routine History of IUFD Once per month for 2 Occurrences starting 02/17/2024 until 04/16/2024 [facility] Work Phone: Comment on above: Once per month for 2 Occurrences starting 02/17/2024 until 04/16/2024 End: 07-23-2024 OBSTETRIC ULTRASOUND WHI OBSTETRIC ULTRASOUND I Anc Imaging Routine Supervision of other high risk pregnancies, third trimester Polyhydramnios in third trimester complication, single or unspecified fetus History of IUFD Every 3 weeks for 3 Occurrences starting 04/14/2024 until 07/23/2024 [facility] Work Phone: Comment on above: Every 3 weeks for 3 Occurrences starting 04/14/2024 until 07/23/2024 End: 05-31-2025 OBSTETRIC ULTRASOUND WHI OBSTETRIC ULTRASOUND I Anc Imaging Routine Encounter for supervision of high risk in second trimester, antepartum (HCC) Chronic hypertension complicating or reason for care during childbirth (HCC) Once per month for 6 Occurrences starting 01/12/2025 until 05/31/2025 [facility] Work Phone: Comment on above: Once per month for 6 Occurrences starting 01/12/2025 until 05/31/2025 Organism count, microscopic method [facility] PAP TEST PAP TEST Lab [facility] salvatore care and examination Screening for malignant neoplasm of cervix 07/29/2024 1:48 PM EST [facility] report.final Dx Spec [facility] Patient Education [facility] Work Phone: Patient referral [facility] Work Phone: pH of Urine [facility] ROUTINE, GR OUP B STREP PCR ROUTINE, GROUP B STREP PCR Microbiology Routine 36 weeks gestation of 06/11/2024 11:55 AM EST [facility] Work Phone: Specific gravity of Urine [facility] Urine culture [facility] Urine dipstick for glucose [facility] Urine dipstick for leukocyte esterase [facility] Urine dipstick for nitrite [facility] Urine dipstick for protein [facility] Urine examination [facility] Urine microscopy: epithelial cells [facility] Urine microscopy: re d cells [facility] URINE OB DIP B/O URINE OB DIP B/ O Lab Routine Encounter for supervision of normal in multigravida in first trimester 9 weeks gestation of Ordered: 12/01/2023 [facility] Work Phone: Comment on above: Ordered: 12/01/2023 Urobilinogen [Presen ce] in Urine [facility] White blood cell count [facility] Immunizations Immunization Date Immunization Notes Care Provider Fa cility 05-12-2024 respiratory syncytia l virus (RSV) vaccine, bivalent (ABRYSVO) Whi Mob [facility] 04-14-2024 tetanus toxoid, redu anju diphtheria toxoid, and acellular pertussis vaccine, adsorbed Margarita Alcala MD Work Phone: [facility] 02-13-2021 COVID-19 original vaccine, full dose, monovalent (MODERNA) Margarita Alcala MD Work Phone: [facility] 02-10-2017 measles, mumps and rubella virus vaccine Dr. David Mckinney Work Phone: [facility] 01-05-2014 human papilloma viru s vaccine, quadrivalent Margarita Alcala MD Work Phone: [facility] 03-19-2010 human papilloma viru s vaccine, quadrivalent Margarita Alcala MD Work Phone: [facility] 03-19-2010 tetanus toxoid, redu anju diphtheria toxoid, and acellular pertussis vaccine, adsorbed Margarita Alcala MD Work Phone: [facility] 03-19-2010 varicella virus vaccine Jo-Ann Alcala MD Work Phone: [facility] 01-05-2001 diphtheria, tetanus toxoids and acellular pertussis vaccine, unspecified formulation Margarita Alcala MD Work Phone: [facility] 01-05-2001 measles, mumps and rubella virus vaccine Margarita Alcala MD Work Phone: [facility] 01-05-2001 poliovirus vaccine, inactivated Margarita Alcala MD Work Phone: [facility] 09-20-1999 varicella virus vaccine Jo-Ann Alcala MD Work Phone: [facility] 09-10-1999 diphtheria, tetanus toxoids and acellular pertussis vaccine, unspecified formulation Margarita Alcala MD Work Phone: [facility] 11-13-1998 diphtheria, tetanus toxoids and acellular pertussis vaccine, unspecified formulation Margarita Alcala MD Work Phone: [facility] 11-13-1998 poliovirus vaccine, inactivated Margarita Alcala MD Work Phone: [facility] [employer] 02-21-1998 haemophilus influenz ae type b vaccine, HbOC conjugate Margarita Alcala MD Work Phone: [facility] 02-21-1998 hepatitis B vaccine, pediatric or pediatric/adolescent dosage Margarita Alcala MD Work Phone: [facility] 02-21-1998 measles, mumps and rubella virus vaccine Margarita Alcala MD Work Phone: [facility] 12-20-1997 diphtheria, tetanus toxoids and acellular pertussis vaccine, unspecified formulation Margarita Alcala MD Work Phone: [facility] 12-20-1997 haemophilus influenz ae type b vaccine, HbOC conjugate Margarita Alcala MD Work Phone: [facility] 12-20-1997 poliovirus vaccine, inactivated Margarita Alcala MD Work Phone: [facility] 11-11-1997 diphtheria, tetanus toxoids and acellular pertussis vaccine, unspecified formulation Margarita Alcala MD Work Phone: [facility] 11-11-1997 haemophilus influenz ae type b vaccine, HbOC conjugate Margarita Alcala MD Work Phone: [facility] 11-11-1997 hepatitis B vaccine, pediatric or pediatric/adolescent dosage Margarita Alcala MD Work Phone: [facility] 11-11-1997 poliovirus vaccine, inactivated Margarita Alcala MD Work Phone: [facility] 1996 hepatitis B vaccine, pediatric or pediatric/adolescent dosage Margarita Alcala MD Work Phone: [facility] Payers Date Payer Category Payer Self-pay [id number] 2022 Medicaid [id number] 2017 Unknown [id number] 2017 Unknown [id number] Unknown [id number] 2.16.8 [id number] Unknown [id number] 2.16.8 [id number] Unknown [id number] 2.16.8 [id number] Unknown [id number] 2.16.8 [id number] Unknown [id number] 2.16.8 [id number] Unknown [id number] 2.16.8 [id number] Unknown [id number] 2.16.8 [id number] Unknown [id number] 2.16.8 [id number] Unknown [id number] 2.16.8 [id number] Unknown [id number] 2.16.8 [id number] Unknown [id number] 2.16.8 [id number] Social History Date Type Detail Facility [facility] Work Phone: Start: 11-03-2021 End: 08-10-2023 Tobacco smoking status NHIS Unknown if ever smoked [facility] Start: 01-13-2020 None [facility] Start: 1995 Sex Assigned At Female [facility] Start: 06-07-2022 End: 11-13-2023 Tobacco smoking status NHIS Never smoked tobacco [facility] Start: 06-07-2022 End: 02-17-2024 Tobacco use and exposure Smokeless tobacco non-user [facility] Start: 1995 Sex Assigned At Not on file [facility] History of tobacco use Passive smoker [facility] Start: 11-13-2023 End: 12-31-2024 Alcohol intake Ex-drinker (finding) [facility] Start: 11-13-2023 End: 11-18-2024 History of Social function [facility] Start: 11-13-2023 End: 11-18-2024 Tobacco use panel [facility] Start: 05-24-2012 National Score (1-100), lower number is lower risk 90 [facility] Start: 11-10-2023 Education 13 [facility] Start: 10-12-2023 [facility] Start: 11-12-2023 Gender identity Identifies as female gender (finding) [facility] Start: 11-12-2023 Sexual orientation Heterosexual (fin ding) [facility] Start: 02-17-2024 End: 03-10-2025 Tobacco smoking status NHIS Ex-smoker [facility] History of tobacco use Current smoker [facility] History of tobacco use Cigarette Smoker [facility] Start: 10-02-2024 End: 10-12-2024 Sex Female (finding) [facility] NEGATED: Highlighted row [facility] Goals Date Patient Goal Desired Activity /State Personal health goal Personal health goal Mental Status Date Assessment Result Facility 08-10-2023 Cognitive function Level Of Cons ciousness Awake;Alert;Appropriate;Follow s Commands [facility] Work Phone: 06-10-2023 Cognitive function Level Of Cons ciousness Awake;Alert;Appropriate;Drowsy [facility] Work Phone: 05-11-2023 Cognitive function Level Of Cons ciousness Awake;Alert;Appropriate [facility] Work Phone: 02-24-2023 Cognitive function Level Of Cons ciousness Awake;Alert;Appropriate [facility] Work Phone: 09-13-2021 Cognitive function Level Of Cons ciousness Awake;Alert;Appropriate;Follow s Commands [facility] Work Phone: Clinical Notes 02-22-2022 to 03-17-2025 Note Date & Type Note Facility 03-17-2025 Note HNO ID: [id number] Author: IDA CISNEROS MA Service: ? Author Type: Livestock Sl[employer] Type: Progress Notes Filed: 03/17/2025 12:32 Note Text: Patient identified by name and [...] severely ill: Yes Patient denies history of Guillain-Thomson Syndrome (a severe paralytic illness): Yes Tdap Adacel injection was given without incident. See immunizations for details of immunizations administered today. VIS sheet provided: Yes Provider Jeanette Patel MD was present in office at time of injection. Ida Cisneros MA [facility] 03-10-2025 Discharge summary [facility] 03-10-2025 Discharge summary Note Date/Time March 10, 2025 2:55pm [facility] Medical Records Department [address] [place] [address] Emergency Department Summary 03/10/25 MR#: [id number] Acct: [id number] Name: SHILPA HOANG Rep #:[id number] : 1995 29 From: Mindy Parker PCP: Dr. David Mckinney MD Status:DEP ER Location: ED HPI HPI - URI History of Present Illness Chief Complaint: Cough Informant: patient Narrative Narrative: Patient is a 29-year-old female is currently 28 weeks presenting for URI symptoms and headache. States that she has had 3 days of nonproductive cough, fatigue, headache that is pressure in her head, congestion and some mild shortness of breath. Denies any nausea or vomiting. Notes some mild swelling of her legs but not sure along its been there. She thought she was fatigued andwas anemic but then developed more URI symptoms. Was worried her headache couldbe related to her blood pressure being high or preeclampsia so she came to the ER. She denies any vaginal bleeding, leakage of fluids and reports good movement from the baby. Follows with [facility] HISTORICAL INTERPRETER. Been taking Tylenol for symptoms her last dose was last night. No other complaints or concerns reported at this time. Unsure of any sick contacts. ROS ROS ED Constitutional Constitutional ED: Denies chills or fever(s) ENT ENT ED: Reports ear pain, rhinorrhea, sore throat and other Details: Nasal congestion Cardiovascular Cardiovascular: Denies chest pain Respiratory/Chest Respiratory/Chest: Reports cough and dyspnea Gastrointestinal Gastrointestinal: Denies nausea or vomiting Genitourinary Genitourinary ED: Reports other Details: 28 weeks . Denies any leakage of fluid or vaginal bleeding ; Denies urinary frequency Musculoskeletal Musculoskeletal: Denies arthralgias or myalgias Neurologic Neurologic: Reports headache(s); Denies paresthesias or weakness Hematologic/Lymphatic Hematologic/Lymphatic: Denies easy bleeding or easy bruising [facility] Medical History (spontaneous vaginal delivery) Depression Family history of hearing loss at age younger than 7 years Gestational HTN Stillborn, normal History of placental abruption Trauma depression Anxiety Cervical myofascial strain Home Medications ?Medication ?Instructions ?Recorded ?Last Taken ?Type bvibrwxt-lje-Ae-FA 1 mg 1 tab PO DAILY pregna ncy 09/13/21 02/17/22 09:00 History tablet amoxicillin 500 mg capsule 500 mg PO TID 7 days #21 ca ps 10/12/24 Unknown Rx ondansetron 4 mg disintegrating 4 mg PO TID PRN nausea and 10/12/24 Unknown Rx tablet vomiting #21 tabs nitrofurantoin 100 mg PO Q12 #10 CAPSULES 0 12/11/24 Unknown Rx monohydrate/macrocrystals 100 mg capsule fluticasone propionate 50 1 spray intranasal BID 2 wee ks #16 03/10/25 Unknown Rx mcg/actuation nasal grams spray,suspension (Flonase Allergy Relief) pseudoephedrine-guaifenesin ER 120 1 tab PO Q12H PRN c old symptoms 03/10/25 Unknown Rx mg-1,200 mg tab,extend release #20 tabs 12hr (Mucinex D Maximum Strength) Allergy/AdvReac Type Severity Reaction Status Date / Time walnut (walnuts) Allergy Severe Swelling Verified 03/10/25 12:31 corn AdvReac Other Verified 03/10/25 12:31 Social History number of children: 2 Smoking Status: Former smoker alcohol intake: former 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 EXAM Physical Exam Const Vital Signs: 03/10/25 12:30 03/10/25 12:47 03/10/25 14:30 Temperature 98 F Temperature Source Temporal Pulse Rate 90 81 Respiratory Rate 18 14 Respiratory Depth Normal Respiratory Pattern Normal Blood Pressure 119/89 H 121/79 H Blood Pressure Mean 99 93 Pulse Ox 98 98 Oxygen Delivery Method Room Air Room Air Room Air 03/10/25 14:53 Temperature 97 F L Temperature Source Pulse Rate 98 Respiratory Rate 14 Respiratory Depth Respiratory Pattern Blood Pressure 115/79 Blood Pressure Mean 91 Pulse Ox 98 Oxygen Delivery Method Positive well nourished and well developed General Appearance ED: well developed HEENT Reports moist mucous membranes HEENT Narrative: Uvula midline. No trismus. Slightly hoarse voice consistent with laryngitis. Nasal congestion present. Normal bilateral tympanic membranes and ear canals. Serous fluid noted behind the left TM. Face and Sinus: sinus tenderness Throat: posterior oropharynx normal; Negative for tonsils abnormal Neck supple, no meningeal signs and no JVD Resp normal respiratory effort Cardio no murmurs Rate: regular rate Rhythm: regular rhythm GI non-tender and non-distended GI Narrative: Gravid abdomen above the level of the umbilicus present. Extremity normal to inspection Extremity Narrative: Trace pitting edema lower legs. Neuro oriented x3 Sensorium / Orientation: alert Psych mental status grossly normal Skin Lesions: no lesions Rashes: no rashes MDM MDM MDM Narrative Medical decision making narrative: Patient evaluated for 3 days of worsening viral symptoms. Also has associated headache. Is approximately 28 weeks . Differential includes sinus headache, viral syndrome, COVID. Blood pressure normal in the ER low suspicion for preeclampsia/eclampsia. Headache is consistent with her viral syndrome. She is clear breath sounds bilaterally and no fever so lower suspicion for pneumonia. Patient treated symptomatically ER with Mucinex and Tylenol. On repeat evaluation she does seem more comfortable. Case is discussed with HISTORICAL INTERPRETER call for [facility], Dr. Lugo. She is comfortable with patient be discharged home with symptomatic treatment. Confirms that decongestants are safe in at this point. Patient be discharged home with prescription for Mucinex DM and Flonase. Also counseled she can use Afrin but not to use it for more than 3 days in a row because of therisk of rebound rhinorrhea. Can also take Tylenol as needed for headache. Given return precautions. Discharged home in stable condition. Management Discussion w/another healthcare provider: [employer] Director Discharge Plan Triage Chief Complaint: Cough ED Provider: Mindy Jorge Dx/Rx/DC Orders Clinical Impression: Acute viral syndrome Instructions: ED Viral Syndrome (Adult) Prescriptions: New fluticasone propionate [Flonase Allergy Relief] 50 mcg/actuation spray,suspension 1 spray intranasal BID 14 Days Qty: 16 0RF Rx Instructions: administer into each nostril pseudoephedrine-guaifenesin [Mucinex D Maximum Strength] 120-1,200 mg tablet extended release 12 hr 1 tab PO Q12H PRN (Reason: cold symptoms) Qty: 20 0RF No Action llvidfxo-vxo-Wk-FA 1 mg Tablet 1 tab PO DAILY amoxicillin 500 mg capsule 500 mg PO TID 7 Days Qty: 21 0RF ondansetron 4 mg tablet,disintegrating 4 mg PO TID PRN (Reason: nausea and vomiting) Qty: 21 2RF nitrofurantoin monohyd/m-cryst 100 mg capsule 100 mg PO Q12 Qty: 10 0RF Primary Care Provider: David Mckinney Referrals: David Mckinney MD [Primary Care Provider, Family Practice] Activity Restrictions/Additional Instructions: Follow up with your family doctor and HISTORICAL INTERPRETER. You may take gmgc-ixh-hxixpge decongestant such as Tylenol Cold and flu or Mucinex DM. You been given a prescription for Mucinex DM. You may also use Flonase which is available zleb-aqw-wjjfxtf. Use as directed do not use for more than 3 days because of the increased risk of rebound congestion. If you have worsening symptoms, feveror difficulty breathing please return to the emergency room. Print Language: [place]se Disposition Disposition: Home, Self Care Discharge Date/Time: 03/10/25 14:55 What to do if you have Problems For any increased pain, shortness of breath, bleeding, nausea or vomiting, chestpain, or any unexpected problems, contact your Primary Care Provider. Call [facility] ([phone]) or report to the closest Emergency Room. Call 911 if necessary. 03/10/25 1630 <Electronically signed by Mindy Jorge DO> Cosigner Signature (if applicable): CC: Dr. David Mckinney MD ~ Signed [facility] Work Phone: 1(948) 722-889808-20-2025 Progress note* Quick Notes - Jt Lugo MD - 02/09/2025 10:19 AM EDT RR- VB No. LOF No. CTXS No. Movement: present. Other c/o: bp at home 110s-120s/60s-70s. [place]. Medication list reviewed. SENSITIVE EXAM: Sensitive exam not performed. Physical Exam See Flow Sheet Abd: soft, nontender, gravid Ext: edema: Trace A/P 24w1d Estimated Date of Delivery: 05/31/25 ASSESSMENT/PLAN: 1. Encounter for supervision of high risk in second trimester, antepartum ([facility]) - ICD9: V23.9, ICD10: O09.92 (primary diagnosis) 28 week labs next visit - GESTATIONAL GLUCOSE SCREEN, 1-HOUR, 50 GRAM, NON-FASTING - SYPHILIS TREPONEMAL W/REFLEX - ANEMIA REFLEX PANEL - URINE OB DIP B/O 2. Chronic hypertension complicating or reason for care during childbirth ([facility]) - ICD9: 642.01, ICD10: O10.92 cont. labetalol, bp stable, won't decrease meds since was difficult to get under control previously. Monitoring at home - GESTATIONAL GLUCOSE SCREEN, 1-HOUR, 50 GRAM, NON-FASTING - SYPHILIS TREPONEMAL W/REFLEX - ANEMIA REFLEX PANEL - URINE OB DIP B/O 3. Late care (HCC) - ICD9: V23.7, ICD10: O09.30 plans regular appointment.s - GESTATIONAL GLUCOSE SCREEN, 1-HOUR, 50 GRAM, NON-FASTING - SYPHILIS TREPONEMAL W/REFLEX - ANEMIA REFLEX PANEL - URINE OB DIP B/O 4. heartburn, plans to start tums prn 5. 24 weeks gestation of ([facility]) - ICD9: V22.2, ICD10: Z3A.24 - URINE OB DIP B/O 6. Nicotine use - ICD9: 305.1, ICD10: Z72.0 hasn't smoked this entire , quit 3-4 year ago. ant. anemia- recheck levels next visit cont. Fe and PNV growth scans q 4 weeks starting next visit cont. zofran prn Jt Lugo MD [facility]08-20-2025 Miscellaneous Notes* Quick Notes - Jt Lugo MD - 02/09/2025 10:19 AM EDT RR- VB No. LOF No. CTXS No. Movement: present. Other c/o: bp at home 110s-120s/60s-70s. [place]. Medication list reviewed. SENSITIVE EXAM: Sensitive exam not performed. Physical Exam See Flow Sheet Abd: soft, nontender, gravid Ext: edema: Trace A/P 24w1d Estimated Date of Delivery: 05/31/25 ASSESSMENT/PLAN: 1. Encounter for supervision of high risk in second trimester, antepartum ([facility]) - ICD9: V23.9, ICD10: O09.92 (primary diagnosis) 28 week labs next visit - GESTATIONAL GLUCOSE SCREEN, 1-HOUR, 50 GRAM, NON-FASTING - SYPHILIS TREPONEMAL W/REFLEX - ANEMIA REFLEX PANEL - URINE OB DIP B/O 2. Chronic hypertension complicating or reason for care during childbirth ([facility]) - ICD9: 642.01, ICD10: O10.92 cont. labetalol, bp stable, won't decrease meds since was difficult to get under control previously. Monitoring at home - GESTATIONAL GLUCOSE SCREEN, 1-HOUR, 50 GRAM, NON-FASTING - SYPHILIS TREPONEMAL W/REFLEX - ANEMIA REFLEX PANEL - URINE OB DIP B/O 3. Late care ([facility]) - ICD9: V23.7, ICD10: O09.30 plans regular appointment.s - GESTATIONAL GLUCOSE SCREEN, 1-HOUR, 50 GRAM, NON-FASTING - SYPHILIS TREPONEMAL W/REFLEX - ANEMIA REFLEX PANEL - URINE OB DIP B/O 4. heartburn, plans to start tums prn 5. 24 weeks gestation of (HCC) - ICD9: V22.2, ICD10: Z3A.24 - URINE OB DIP B/O 6. Nicotine use - ICD9: 305.1, ICD10: Z72.0 hasn't smoked this entire , quit 3-4 year ago. ant. anemia- recheck levels next visit cont. Fe and PNV growth scans q 4 weeks starting next visit cont. zofran prn Jt Lugo MD [facility] Instructions* Patient Instructions* La Bowden MA - 02/09/2025 9:56 AM EDT SEQUENTIAL SCREENINGS The [facility] offers sequential screenings for women who are [...] testing. It will require an appointment withour transportation planning technician. This is not an ultrasound performed [...] the above symptoms, contact our office at [phone] and ask to speak with anurse. After hours, you can call [employer] [facility] at [phone] OR call [facility] at [phone] ask to have the doctor director of in service education paged. If you consider this an emergency, dial 9-- or go to your nearest emergency department. NEED HELP? Are you dealing with a violent or abusive relationship? Are you a victim of rape or sexual assult? Call [facility] ([place]) 24 hour Crisis Hotline: 103.346.9312 or 548-783-3284. MANUAL Your Guide to a Healthy manual is now on-line. Visit [email or web address] to download your free copy documented in this [facility] Telephone encounter Note * Telephone Encounter - Carla Mckinney RN - 01/13/2025 9:59 AM EDT 2nd risk assessment form submitted 01/13/25 Carla Mckinney RN [facility]07-24-2025 Miscellaneous Notes* Telephone Encounter - Carla Mckinney RN - 01/13/2025 9:59 AM EDT 2nd risk assessment form submitted 01/13/25 Carla Mckinney RN documented in this encounter[facility] Progress note* Quick Notes - Sarah Huber MD - 01/12/2025 10:08 AM EDT DM-Pt doing well. Denies vaginal Bleeding, [...] 4 wks Sarah Warner MD [facility]07-23-2025 Miscellaneous Notes* Quick Notes - Sarah Huber MD - 01/12/2025 10:08 AM EDT DM-Pt doing well. Denies vaginal Bleeding, [...] wks Sarah Warner MD documented in this encounter[facility] Instructions* Patient Instructions* Terrie Ramirez MA - 01/12/2025 9:10 AM EDT SEQUENTIAL SCREENINGS The [facility] offers sequential screenings for women who are [...] testing. It will require an appointment withour transportation planning technician. This is not an ultrasound performed [...] the above symptoms, contact our office at [phone] and ask to speak with anurse. After hours, you can call doctors registry at [phone] OR call [facility] at [phone] ask to have the doctor director of in service education paged. If you consider this an emergency, dial 1-1-3 or go to your nearest emergency department. NEED HELP? Are you dealing with a violent or abusive relationship? Are you a victim of rape or sexual assult? Call [facility] ([place]) 24 hour Crisis Hotline: 491.103.4475 or 603-287-9879. MANUAL Your Guide to a Healthy manual is now on-line. Visit [email or web address] to download your free copy documented in this encounter[facility]-2025 NoteHNO ID: [id number] Author: SOY CASSIDY MD Service: ? Author [...] US RTO for anatomy [facility] History of Present illness Narrative* Soy Cassidy MD - 01/04/2025 8:29 AM EDT SW- pt doing well. No pain, vb, [...] visit Soy Cassidy DO documented in this encounterSelect [facility] Progress note* Quick Notes - Soy Cassidy MD - 12/31/2024 1:49 PM EDT SW- No pain, vb, lof. Feeling flutters [...] - Sober for 6 year [facility]07-11-2025 Miscellaneous Notes* Quick Notes - Soy Cassidy MD - 12/31/2024 1:49 PM EDT SW- No pain, vb, lof. Feeling flutters [...] Sober for 6 year documented in this encounterSelect [facility] Instructions* Patient Instructions* Emily Scott LPN - 12/31/2024 1:17 PM EDT SEQUENTIAL SCREENINGS The [facility] offers sequential screenings for women who are [...] testing. It will require an appointment withour transportation planning technician. This is not an ultrasound performed [...] the above symptoms, contact our office at [phone] and ask to speak with anurse. After hours, you can call doctors registry at [phone] OR call [facility] at [phone] ask to have the doctor director of in service education paged. If you consider this an emergency, dial 5-9-8 or go to your nearest emergency department. NEED HELP? Are you dealing with a violent or abusive relationship? Are you a victim of rape or sexual assult? Call [facility] ([place]) 24 hour Crisis Hotline: 962.189.6776 or 758-220-9210. MANUAL Your Guide to a Healthy manual is now on-line. Visit [email or web address] to download your free copy documented in this encounterSelect [facility] Telephone encounter Note * Telephone Encounter - Jo Sweeney RN - 2024 8:55 PM EDT Reason for Call: H/A and numbness of the right side of her face Outcome: She is calling 911 [facility]07-07-2025 Miscellaneous Notes* Telephone Encounter - Jo Sweeney RN - 2024 8:55 PM EDT Reason for Call: H/A and numbness of the right side of her face Outcome: She is calling 911 * Telephone Encounter - Jo Sweeney RN - 2024 8:50 PM EDT Reason for Disposition [1] Numbness of the face, arm or leg on one side of the body AND [2] new-onset C/o 8/10 H/A and numbness of the right side of her face. Protocols used: - Mcwwyvyw-MKAFM-TW documented in this encounterSelect [facility] Telephone encounter Note * Telephone Encounter - Jo Sweeney RN - 2024 8:50 PM EDT Reason for Disposition [1] Numbness of the face, arm or leg on one side of the body AND [2] new-onset C/o 8/10 H/A and numbness of the right side of her face. Protocols used: - Ajraqudo-CAYZI-CO [facility]05-30-2025 Telephone encounter Note* Telephone Encounter - Justin Valentino RN - 11/19/2024 8:27 AM EDT 1st risk assessment form submitted 11/19/24. Justin Valentino RN [facility]05-30-2025 Miscellaneous Notes* Telephone Encounter - Justin Valentino RN - 11/19/2024 8:27 AM EDT 1st risk assessment form submitted 11/19/24. Justin Valentino RN documented in this encounterSelect [facility] Progress note* Quick Notes - Johana Turner APRN.CNM - 11/18/2024 1:57 PM EDT Patient is at 12w4d gestation here for NOB. This is patient's first visit. See progress note. Johana Turner APRN.CNM [facility]05-29-2025 Miscellaneous Notes* Quick Notes - Johana Turner APRN.CNM - 11/18/2024 1:57 PM EDT Patient is at 12w4d gestation here for NOB. This is patient's first visit. See progress note. Johana Turner APRN.CNM documented in this encounterSelect [facility] Instructions* Patient Instructions* Shahzad Romero MA - 11/18/2024 12:58 PM EDT Please select the following link to access the [facility] Your Guide to a Healthy . [email or web address] documented in this encounterSelect Medical [facility]-2025 NoteHNO ID: [id number] Author: JOHANA TURNER APRN.CNM Service: ? Author Type: Express Clerk Type: Progress Notes Filed: 11/18/2024 14:45 Note [...] the following (please check all that apply)? Express Clerk care Social History: Do you have any [...] Status: Partner: Name: Sarath Age: 33 Occupation: [employer] Gender: Male PAST MEDICAL HISTORY Diagnosis Date Drug addiction in remission ([facility]) Generalized anxiety disorder Polyhydramnios in third trimester ([facility]) 05/14/2024 PAST SURGICAL HISTORY Procedure Laterality Date [...] facility-administered medications for this (more content not included)...[facility]05-29-2025 History of Present illness Narrative* Johana Turner APRN.[facility] - 11/18/2024 12:57 PM EDT OB point of care ultrasound was performed. [...] than or equal to4 cm) or effacement? No How many pregnancies [...] the following (please check all that apply)? Express Clerk care Social History: Do you have any [...] Status: Partner: Name: Sarath Age: 33 Occupation: [employer] Gender: Male PAST MEDICAL HISTORY Diagnosis Date Drug addiction in remission ([facility]) Generalized anxiety disorder Polyhydramnios in third trimester ([facility]) 05/14/2024 PAST SURGICAL HISTORY Procedure Laterality Date [...] Anxiety, Depression, Memory loss Hx of depression. [facility] physician . Zoloft 50 mg PO daily- stopped when found out SKIN: Negative for: Rash, Itching GENITOURINARY: Negative for: vaginal itching, vaginal discharge, hematuria or dysuria SENSITIVE EXAM: The sensitive examination was discussed with the Patient or Patient's Authorized Touch Up Carver. As applicable, any other physician, advance practice provider, medical student, or other health professional student that will be observing or involved in the sensitive examination for educational or training purposes was discussed with the Patient or Authorized Touch Up Carver. The Patient or Authorized Touch Up Carver has agreed to proceed with the sensitive [...] activity, and crown-rump length 12w 2 days [facility] to room for dating verification SBIRT [...] Your guide to a health and the Wire Winding Machine Operator. 2) Screening: Hemoglobin A1C: ordered Baby Aspirin: [...] about the risks of tobacco use during pregnancyand cessation has been recommended. Patient declines cessation referral and/or resources. Follow up in 4 weeks for PEGGY or sooner prn. Johana Turner APRN.CNM documented in this encounter[facility] Radiology Diagnostic study note [facility] [address] [place] [address] Transvaginal w/Preg US MR#: [id number] Acct: [id number] Name: SHILPA HOANG Rep #: [id number] : 1995 F 28 From: Peggy Tapia MD PCP: Dr. Daivd Mckinney MD Status: REG CLI Study:Transvaginal w/Preg US Date of Exam: 10/21/24 Exam# [id number] Ordering Dr: Chelsi Cárdenas DO PROCEDURE: TRANSVAGINAL [...] 2.6 x 2.7 x 1 cm. The ovariesappear within limits. No evidence of adnexal mass. [...] weeks 1 day, JANE 05/25/2025. Reading Location: [id number] CC: Dr. David Mckinney MD; DO Corby Wood Banquet Manager: Signed [facility]04-23-2025 Telephone encounter Note* Telephone Encounter - Carla Mckinney RN - 10/13/2024 10:27 AM EDT Patient has appt - closing encounter. Carla Mckinney RN [facility]04-23-2025 Miscellaneous Notes* Telephone Encounter - Carla Mckinney RN - 10/13/2024 10:27 AM EDT Patient has appt - closing encounter. Carla Mckinney RN * Telephone Encounter - Margarita Hernandez RN - 10/08/2024 1:36 PM EDT Call placed to patient to triage for [...] Office/provider patient wishes to establish care to? [place] Patient aware to sign up for My Chart if she does not already have it, so she can receive the carecompanion messages. Will forward this encounter to the schedulers in this office. * Telephone Encounter - Margarita Hernandez RN - 10/08/2024 1:36 PM EDT ----- Message from Jennifer Carrizales sent at [...] Return call to: self Call patient at: [phone] (cell), it is OK to leave message Payor: [facility] MEDICAID / Plan: [facility] MEDICAID / Product Type: Medicaid / Jennifer Roldan documented in this encounterSelect [facility]04-[facility]2025 Telephone encounter Note * Telephone Encounter - Margarita Hernandez RN - 10/08/2024 1:36 PM EDT Call placed to patient to triage for [...] have it, so she can receive the carecompanion messages. Will forward this encounter to the schedulers in this office. [facility]04-18-2025 Telephone encounter Note* Telephone Encounter - Margarita Hernandez RN - 10/08/2024 1:36 PM EDT ----- Message from Jennifer Carrizales sent at 10/08/2024 1:32 PM EDT ----- Regarding: New OB - Answered yes to condition that could affect Patient has been identified by name and Date of : Yes Patient: Shilpa Hoang Date of : 1995 Provider for this encounter : [facility] Reason for call: 1st OB visit Was an appointment scheduled: No Reason for requesting visit (RFV/signs and symptoms/diagnosis) : New , patient answered yes to having condition that could affect (hypertension) Person calling: self Return call to: self Call patient at: [phone] (cell), it is OK to leave message Payor: [facility] MEDICAID / Plan: [facility] MEDICAID / Product Type: Medicaid / Jennifer Roldan [facility]03-27-2025 NoteHNO ID: [id number] Author: HORTENCIA GOULD APRN.COSTUME SHOP COORDINATOR Service: ? 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 Shilpa presents today for IUD insertion for [...] which included preparing to see the patient, [id number] patient care, completing clinical documentation, obtaining and/or reviewing separately obtained history, performing a medically appropriate examination, counseling and educating the patient/family/caregiver, and ordering medications, tests, or procedures. 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 Shilpa presents today for IUD insertion for [...] which included preparing to see the patient, gjli-su-ixwx patient care, completing clinical documentation, obtaining and/or reviewing separately obtained history, performing a medically appropriate examination, counseling and educating the pat ient/family/caregiver, and ordering medications, tests, or procedures. documented in this encounterSelect [facility]03-27-2025 Instructions* Patient Instructions* Babita Blankenship LPN - 09/16/2024 1:33 PM [...] please contact the office. documented in this encounterSelect [facility]02-14-2025 Telephone encounter Note * Telephone Encounter - Sharda Valero APRN.CNP - 08/06/2024 4:35 PM EST Please let the pt know that her Pap is normal, but it showed that she was Trich positive. I would like her to come in for a vaginal culture to confirm as pap is not the reliable test. Sharda Valero APRN.CNP [facility]02-14-2025 Miscellaneous Notes* Telephone Encounter - Sharda Valero APRN.CNP - 08/06/2024 4:35 PM EST Please let the pt know that her Pap is normal, but it showed that she was Trich positive. I would like her to come in for a vaginal culture to confirm as pap is not the reliable test. Sharda Valero APRN.CNP documented in this encounterSelect [facility]02-[facility]-2025 NoteHNO ID: [id number] Author: SHARDA VALERO APRN.CNP Service: ? Author Type: Nurse Practitioner Type: Progress Notes Filed: 07/29/2024 13:46 Note Text: VISIT Shilpa Hoang is a 28 year old year old here for visit. Delivery Summary: 06/18/24 ROS/ Recovery: Feeding: Bottle feeding problems: n/a Menses since delivery: n/a Menstrual pattern prior to : Regular periods [place] since delivery: Not resumed Depression: denies symptoms [...] discussed with the Patient or Patient's Authorized Touch Up Carver. As applicable, any other physician, advance practice provider, medical student, or other health professional student that will be observing or involved in the sensitive examination for educational or training purposes was discussed with the Patient or Authorized Touch Up Carver. The Patient or Authorized Touch Up Carver has agreed to proceed with the sensitive [...] external genitalia normal, normal Bartholin's glands, urethra, Le Flore's glands, no vulvar lesions, no cervical lesions, physiologic discharge present, normal appearing perineal body and perianal region BIMANUAL: uterus normal size, shape and consistency, no adnexal masses, and non-tender NEURO: alert and oriented x3,exam grossly non-focal EXTREMITIES: normal ASSESSMENT AND PLAN: 28 year old status post with normal course. Contraception plan: IUD - Mirena Follow up: RTC for insertion of IUD Sharda Valero APRN.CNPSelect [facility] History of Present illness Narrative* Sharda Valero APRN.CNP - 07/29/2024 1:17 PM EST VISIT Shilpa Hoang is a 28 year old year old here for visit. Delivery Summary: 06/18/24 ROS/ Recovery: Feeding: Bottle feeding problems: n/a Menses since delivery: n/a Menstrual pattern prior to : Regular periods [place] since delivery: Not resumed Depression: denies symptoms [...] discussed with the Patient or Patient's Authorized Touch Up Carver. As applicable, any other physician, advance practice provider, medical student, or other health professional student that will be observing or involved in the sensitive examination for educational or training purposes was discussed with the Patient or Authorized Touch Up Carver. The Patient or Authorized Touch Up Carver has agreed to proceed with the sensitive [...] external genitalia normal, normal Bartholin's glands, urethra, Le Flore's glands, no vulvar lesions, no cervical lesions, physiologic discharge present, normal appearing perineal body and perianal region BIMANUAL: uterus normal size, shape and consistency, no adnexal masses, and non-tender NEURO: alert and oriented x3,exam grossly non-focal EXTREMITIES: normal ASSESSMENT AND PLAN: 28 year old status post with normal course. Contraception plan: IUD - Mirena Follow up: RTC for insertion of IUD Sharda Valero APRN.CNP documented in this encounterSelect [facility]01-[facility]-2025 NoteHNO ID: [id number] Author: JEANETTE PATEL MD Service: ? Author [...] in bassinet/crib in parent's room, feels rested [place] since delivery: Not resumed Emotional support: Yes [...] week visit and as needed Jeanette Patel [facility]01-09-2025 History of Present illness Narrative* Jeanette Patel MD - 07/01/2024 11:17 AM EST EARLY VISIT Shilpa Hoang is a 28 [...] in bassinet/crib in parent's room, feels rested [place] since delivery: Not resumed Emotional support: Yes [...] needed Jeanette Patel MD documented in this encounterSelect [facility]12-30-2024 NoteHNO ID: [id number] Author: MARGARITA HEARN RN Service: ? Author Type: Registered Nurse Type: Progress Notes Filed: 06/21/2024 10:56 Note Text: Patient delivered via at [facility] on 06/18/24 per Margarita Alcala MD . See OB Outcome note. Margarita Hearn RNSelect [facility]12-30-2024 History of Present illness Narrative* Margarita Hearn RN - 06/21/2024 10:54 AM EST Patient delivered via at [facility] on 06/18/24 per Margarita Alcala MD . See OB Outcome note. Margarita Hearn RN documented in this encounterSelect Medical [facility]12-28-2024 [facility] Medical Records Department [address] [place] [address] Discharge Summary 06/19/24 0448 MR#: [id number] Acct: [id number] Name: SHILPA HOANG Rep #: [id number] : 1995 28 From: Margarita lAcala MD PCP: Dr. David Mckinney MD Status:DIS IN Location: [id number] Providers Date of Admission: 06/17/24 Date of [...] on 06/22 Medications at Discharge Home Medications durcilbd-brq-Uf-FA 1 mg tablet 1 tab PO DAILY [...] instructions: No Please Follow Up With: Jt Luog MD When: Follow up with our office in 1-2 and 6 weeks or as needed. [phone] Meaningful Use Info Meaningful Use Meaningful Use [...] Provider: David Mckinney Discharge Orders/Prescriptions Prescriptions: Continued yzdqbjwc-iwg-Ao-FA 1 mg Tablet 1 tab PO DAILY [...] can be placed): Home, Self Care 06/20/24 8985 Cosigner Signature (if applicable): CC: Dr. David Mckinney MD; Dr. Margarita Alcala MD [facility]12-26-2024 Evaluation note* Diagnosis Onset Date Resolution Status Admit Date 37 weeks gestation of acut e June 17, 2024 3:30pm Anemia affecting i n third trimester acute June 17, 2 024 3:30pm Gestational hypertension acute June 17, 2024 3:30pm Gestational thrombocytopenia acute June 17, 2024 3:30pm History of drug use acute Decem kadie 2023 3:30pm Positive GBS test acute Decembe r 2023 3:30pm hypertension acute D ecember 2023 3:30pm (spontaneous vaginal delivery) acute June 17, 2 024 3:30pm [facility] Work Phone: 1(960) 599-280612-26-2024 Progress note* Quick Notes - Johana Turner [...] RTO 1 week for MADI/PEGGY Turner APRN.CNM [facility]12-26-2024 Miscellaneous Notes* Quick Notes - Johana Turner [...] for NST/PEGGY Turner APRN.CNM documented in this encounterSelect Medical [facility]12-26-2024 NoteHNO ID: [id number] Author: JOHANA TURNER APRN.CNM Service: ? Author Type: Express Clerk Type: Progress Notes Filed: 06/17/2024 10:25 Note [...] TOCO: None Interpretation: Reactive SIGNATURE: [facility] History of Present illness Narrative* Johana [...] Turner APRN.CNM documented in this encounterSelect Medical [facility]12-26-2024 Instructions* Patient Instructions* Terrie Ramirez MA - 06/17/2024 8:43 AM EST SEQUENTIAL SCREENINGS The [facility] offers sequential screenings for women who are [...] testing. It will require an appointment withour transportation planning technician. This is not an ultrasound performed [...] the above symptoms, contact our office at [phone] and ask to speak with anurse. After hours, you can call doctors registry at [phone] OR call [facility] at [phone] ask to have the doctor director of in service education paged. If you consider this an emergency, dial 9-- or go to your nearest emergency department. NEED HELP? Are you dealing with a violent or abusive relationship? Are you a victim of rape or sexual assult? Call [facility] ([place]) 24 hour Crisis Hotline: 512.860.4691 or 769-276-5116. MANUAL Your Guide to a Healthy manual is now on-line. Visit [email or web address] to download your free copy documented in this encounterSelect Medical [facility]12-23-2024 Telephone encounter Note * Telephone Encounter - Margarita Hearn RN - 06/14/2024 11:06 AM EST Faxed via R&V. Margarita Hearn RN [facility]12-23-2024 Miscellaneous Notes* Telephone Encounter - Margarita Hearn RN - 06/14/2024 11:06 AM EST Faxed via R&V. Margarita Hearn RN * Telephone Encounter - Jennifer Roldan - 06/14/2024 10:28 AM EST [facility] OB is requesting H&P to be faxed to [phone]. documented in this encounterSelect Medical [facility]12-23-2024 Telephone encounter Note * Telephone Encounter - Jennifer Roldan - 06/14/2024 10:28 AM EST [facility] OB is requesting H&P to be faxed to [phone]. [facility]12-21-2024 Note Indication Evaluation of growth, Evaluation of [...] The placenta is posterior, fundal. - BPP /8. - No malformations visualized on a limited [...] 98% 323.5 94% 299.4 87% 57.9 10% 2153 66% 06/11/2024 36w 5d 94.5 95% 346.7 [...] 15 oz EFW by: Hadlock (HC-AC-FL) Extended Human Machine Interface Engineer 5.7 mm Extremities / Bony Struc [place] [...] By: Khushboo Easley RDMS, RVT Read By: Vilma Farrell M.D.MATERNAL [id number] NoteHNO ID: [id number] Author: SARAH HUBER MD Service: ? Author [...] Category I and Reactive SIGNATURE: Sarah Warner [facility]12-20-2024 History of Present illness Narrative* Sarah [...] Warner MD documented in this encounterSelect Medical Special[facility]12-20-2024 Progress note* Quick Notes - Sarah Huber [...] STREP PCR Sarah Warner MD [facility]12-20-2024 Miscellaneous Notes* Quick Notes - Sarah Huber [...] Warner MD documented in this encounterSelect Medical Special[facility]12-20-2024 Instructions* Patient Instructions* Terrie Ramirez MA - 06/11/2024 10:48 AM EST SEQUENTIAL SCREENINGS The [facility] offers sequential screenings for women who are [...] testing. It will require an appointment withour transportation planning technician. This is not an ultrasound performed [...] the above symptoms, contact our office at [phone] and ask to speak with anurse. After hours, you can call doctors registry at [phone] OR call [facility] at [phone] ask to have the doctor director of in service education paged. If you consider this an emergency, dial 9-7-7 or go to your nearest emergency department. NEED HELP? Are you dealing with a violent or abusive relationship? Are you a victim of rape or sexual assult? Call [facility] ([place]) 24 hour Crisis Hotline: 269.315.2423 or 769-803-9555. MANUAL Your Guide to a Healthy manual is now on-line. Visit [email or web address] to download your free copy documented in this encounterSelect Medical Specialty [facility]12-18-2024 NoteHNO ID: [id number] Author: CARLOS MORALES RN Service: ? Author [...] a provider for review and evaluation for treatment.[facility]12-18-2024 History of Present illness Narrative* Carlos Morales [...] for treatment. documented in this encounterSelect Medical Specialty [facility]12-12-2024 Telephone encounter Note * Telephone Encounter - Margarita Hearn RN - 06/03/2024 3:54 PM EST 35w4d Patient notified. Will have iron studies drawn tomorrow. Margarita Hearn RN [facility]12-12-2024 Miscellaneous Notes* Telephone Encounter - Margarita Hearn [...] Orellana APRN.CNP documented in this encounterSelect Medical Specialty [facility]12-12-2024 Telephone encounter Note * Telephone Encounter - Margarita Hearn RN - 06/03/2024 3:15 PM EST Patient will need to have iron studies drawn first before Blood Management can work on referral. Please file pending orders. Will then call patient. Margarita Hearn RN [facility]12-12-2024 Telephone encounter Note* Telephone Encounter - Halle Orellana APRN.CNP - 06/03/2024 3:07 PM EST Hemoglobin 8.8. Blood management referral placed. Please assist in arranging. Halle Orellana APRN.CNP [facility]12-12-2024 NoteHNO ID: [id number] Author: HALLE ORELLANA APRN.CNP Service: ? Author Type: Nurse Practitioner Type: Procedures Filed: 06/03/2024 14:58 Note Text: NST SUMMARY PROVIDER ASSESSMENT AND INTERPRETATION Indications for NST: Previous IUFD Baseline: 120 Variability: Moderate Accelerations: Present 15 X 15 Decelerations: None Interpretation: Reactive SIGNATURE: Halle Orellana APRN.CNPSelect Medical Specialty [facility]12-12-2024 Procedure note* Halle Orellana APRN.CNP - 06/03/2024 2:04 PM EST NST SUMMARY PROVIDER ASSESSMENT AND INTERPRETATION Indications for NST: Previous IUFD Baseline: 120 Variability: Moderate Accelerations: Present 15 X 15 Decelerations: None Interpretation: Reactive SIGNATURE: Halle Orellana APRN.CNP [facility]12-12-2024 Procedure note* Halle Orellana APRN.CNP - 06/03/2024 2:04 PM EST NST SUMMARY PROVIDER ASSESSMENT AND INTERPRETATION Indications for NST: Previous IUFD Baseline: 120 Variability: Moderate Accelerations: Present 15 X 15 Decelerations: None Interpretation: Reactive SIGNATURE: Halle Orellana APRN.CNP documented in this encounterSelect Medical Special[facility]12-12-2024 Progress note* Quick Notes - Halle Orellana [...] or sooner as needed. Halle Orellana APRN.CNP [facility]12-12-2024 Miscellaneous Notes* Quick Notes - Halle Orellana [...] week or sooner as needed. Halle Orellana APRN.COSTUME SHOP COORDINATOR documented in this encounterSelect Medical Specialty [facility]12-12-2024 Instructions* Patient Instructions* Alicia Holliday MA - 06/03/2024 1:45 PM EST SEQUENTIAL SCREENINGS The [facility] offers sequential screenings for women who are [...] testing. It will require an appointment withour transportation planning technician. This is not an ultrasound performed [...] the above symptoms, contact our office at [phone] and ask to speak with anurse. After hours, you can call doctors registry at [phone] OR call [facility] at [phone] ask to have the doctor director of in service education paged. If you consider this an emergency, dial 2-2-0 or go to your nearest emergency department. NEED HELP? Are you dealing with a violent or abusive relationship? Are you a victim of rape or sexual assult? Call [facility] ([place]) 24 hour Crisis Hotline: 907.115.9060 or 883-823-9357. MANUAL Your Guide to a Healthy manual is now on-line. Visit [email or web address] to download your free copy documented in this encounterSelect Medical Specialty [facility]12-03-2024 NoteHNO ID: [id number] Author: JEANETTE PATEL MD Service: ? Author [...] None Contractions: TOCO: None Interpretation: Reactive SIGNATURE: LIZZ[facility]12-[facility] History of Present illness Narrative* Jeanette [...] Patel MD documented in this encounterSelect Medical Specialty [facility]12-03-2024 Progress note* Quick Notes - Jeanette Patel [...] counts reviewed. Jeanette Patel MD [facility]12-03-2024 Miscellaneous Notes* Quick Notes - Jeanette Patel [...] Patel MD documented in this encounterSelect Medical Specialty [facility]12-03-2024 Instructions* Patient Instructions* Babita Blankenship LPN - 05/25/2024 1:15 PM EST SEQUENTIAL SCREENINGS The [facility] offers sequential screenings for women who are [...] testing. It will require an appointment withour transportation planning technician. This is not an ultrasound performed [...] the above symptoms, contact our office at [phone] and ask to speak with anurse. After hours, you can call doctors registry at [phone] OR call [facility] at [phone] ask to have the doctor director of in service education paged. If you consider this an emergency, dial 9-0-7 or go to your nearest emergency department. NEED HELP? Are you dealing with a violent or abusive relationship? Are you a victim of rape or sexual assult? Call [facility] ([place]) 24 hour Crisis Hotline: 395.307.8271 or 310-630-8441. MANUAL Your Guide to a Healthy manual is now on-line. Visit [email or web address] to download your free copy documented in this encounter[facility] Telephone encounter Note * Telephone Encounter - Rex Nam RN - 05/20/2024 3:57 PM EST Reason for call: Patient's calling regarding HISTORICAL INTERPRETER page sent. Patient missed the call fromprovider, requesting that another page be sent. Outcome: Conferenced to [place] HISTORICAL INTERPRETER Answering Service [ ] to speak with provider oncwendi for Dr. Alcala. Per Boo at answering service, calls needs to be handled by [place]. Transferred to [facility] screwdown operator (), states that page was sent for HISTORICAL INTERPRETER director of in service education. Updated patient's on plan of care, verbalized understanding, no further questions/concerns at this time. GO TO THE EMERGENCY ROOM OR CALL 911 IF: * You develop any new symptoms * Your condition worsens * You are concerned or anxious about your condition for any other reason. If you have any questions, you can call Nurse acquisition cost estimator back. [facility]11-28-[facility] Miscellaneous Notes* Telephone Encounter - Rex Nam RN - 05/20/2024 3:57 PM EST Reason for call: Patient's calling regarding HISTORICAL INTERPRETER page sent. Patient missed the call fromprovider, requesting that another page be sent. Outcome: Conferenced to [place] HISTORICAL INTERPRETER Answering Service [ ] to speak with provider priscilla for Dr. Alcala. Per Boo at answering service, calls needs to be handled by [place]. Transferred to [facility] screwdown operator (), states that page was sent for HISTORICAL INTERPRETER director of in service education. Updated patient's on plan of care, verbalized understanding, no further questions/concerns at this time. GO TO THE EMERGENCY ROOM OR CALL 911 IF: * You develop any new symptoms * Your condition worsens * You are concerned or anxious about your condition for any other reason. If you have any questions, you can call Nurse acquisition cost estimator back. documented in this encounterSelect [facility]11-28-2024 Telephone encounter Note * Telephone Encounter - Deanna Olivares RN - 05/20/2024 3:36 PM EST Patient calling regarding she is 34 weeks and is having swelling in her feet and hands. Conferenced to [place] HISTORICAL INTERPRETER Answering [phone] to speak with provider director of in service education for Dr. Margarita Alcala. [facility]11-28-2024 Miscellaneous Notes* Telephone Encounter - Deanna Olivares RN - 05/20/2024 3:36 PM EST Patient calling regarding she is 34 weeks and is having swelling in her feet and hands. Conferenced to [place] HISTORICAL INTERPRETER Answering [phone] to speak with provider director of in service education for Dr. Margarita Alcala. documented in this encounterSelect [facility]11-20-2024 Progress note* Quick Notes - Sarah Huber [...] start Iron Sarah Warner MD [facility]11-20-2024 Miscellaneous Notes* Quick Notes - Sarah Huber [...] Warner MD documented in this encounterSelect [facility]11-20-2024 Note Indication Evaluation of growth, Evaluation of [...] The placenta is anterior, fundal. - BPP 8/8. - No malformations visualized on a limited [...] 12 oz EFW by: Hadlock (HC-AC-FL) Extended Human Machine Interface Engineer 3.5 mm Extremities / Bony Struc [place] [...] Wants to know sex: yes Performed By: Khushobo Easley RDMS, RVT Read By: Vilma Farrell M.D.MATERNAL [id number] Instructions* Patient Instructions* Terrie Ramirez MA - 05/12/2024 3:26 PM EST SEQUENTIAL SCREENINGS The [facility] offers sequential screenings for women who are [...] testing. It will require an appointment withour transportation planning technician. This is not an ultrasound performed [...] the above symptoms, contact our office at [phone] and ask to speak with anurse. After hours, you can call doctors registry at [phone] OR call [facility] at [phone] ask to have the doctor director of in service education paged. If you consider this an emergency, dial 9-1-6 or go to your nearest emergency department. NEED HELP? Are you dealing with a violent or abusive relationship? Are you a victim of rape or sexual assult? Call [facility] ([facility] 24 hour Crisis Hotline: 800.716.4025 or 539-420-7548. MANUAL Your Guide to a Healthy manual is now on-line. Visit [email or web address] to download your free copy documented in this encounterSelect [facility]11-07-2024 Telephone encounter Note * Telephone Encounter - Nicci Mckeon RN - 04/29/2024 9:35 AM EST Pt notified of need for weekly NSTs starting at 32 weeks. Appointments set up for next 3 weeks. Nicci Mckeon RN [facility]11-07-2024 Telephone encounter Note* Telephone Encounter - Nicci Mckeon RN - 04/29/2024 9:35 AM EST Images from the original note were not included. Margarita Alcala MD [facility] Ob-Supervisor [employer] [place] This patient is also suppose to be weekly NSTs at 32 weeks because of HX of IUFD ([facility] recommended) She was suppose to schedule theses as she left and it does not appear she did. [facility]-2024 Miscellaneous Notes* Telephone Encounter - Nicci Mckeon RN - 04/29/2024 9:35 AM EST Pt notified of need for weekly NSTs starting at 32 weeks. Appointments set up for next 3 weeks. Nicci Mckeon RN * Telephone Encounter - Nicci Mckeon RN - 04/29/2024 9:35 AM EST Images from the original note were not included. Margarita Alcala MD [facility] Ob-Supervisor [employer] [place] This patient is also suppose to be weekly NSTs at 32 weeks because of HX of IUFD ([facility] recommended) She was suppose to schedule theses as she left and it does not appear she did. documented in this encounterSelect [facility]11-06-2024 Progress note* Quick Notes - Margarita Alcala [...] NON-STRESS TEST Margarita Alcala MD [facility]11-06-2024 Miscellaneous Notes* Quick Notes - Margarita Alcala [...] Alcala MD documented in this encounterSelect [facility]11-06-2024 Instructions* Patient Instructions* Terrie Ramirez MA - 04/28/2024 1:29 PM EST SEQUENTIAL SCREENINGS The [facility] offers sequential screenings for women who are [...] testing. It will require an appointment withour transportation planning technician. This is not an ultrasound performed [...] the above symptoms, contact our office at [phone] and ask to speak with anurse. After hours, you can call doctors registry at [phone] OR call [facility] at [phone] ask to have the doctor director of in service education paged. If you consider this an emergency, dial 9-9-3 or go to your nearest emergency department. NEED HELP? Are you dealing with a violent or abusive relationship? Are you a victim of rape or sexual assult? Call [facility] ([place]) 24 hour Crisis Hotline: 388.434.1283 or 386-650-8617. MANUAL Your Guide to a Healthy manual is now on-line. Visit [email or web address] to download your free copy documented in this encounterSelect [facility]10-31-2024 Telephone encounter Note * Telephone Encounter - Margarita Hearn RN - 04/22/2024 4:43 PM EDT Left detailed message on identified voicemail. Margarita Hearn RN [facility]10-31-2024 Miscellaneous Notes* Telephone Encounter - Margarita Hearn [...] Hearn RN documented in this encounterSelect [facility]10-31-2024 Telephone encounter Note * Telephone Encounter - Johana Turner APRN.CNM - 04/22/2024 3:06 PM EDT If patient is not having any current pain or cramping, and feeling positive movement, I am fine forher to monitor at home. She can be seen tomorrow in office if needed. Johana Turner APRN.CNM [facility] Work Phone: [phone] Telephone encounter Note* Telephone Encounter - Margarita [...] be added. Thank you. Margarita Hearn RN [facility]10-28-2024 Telephone encounter Note* Telephone Encounter - Carla Mckinney RN - 04/19/2024 8:48 AM EDT 3rd risk assessment form submitted 04/19/24 Carla Mckinney RN [facility]10-28-2024 Miscellaneous Notes* Telephone Encounter - Carla Mckinney RN - 04/19/2024 8:48 AM EDT 3rd risk assessment form submitted 04/19/24 Carla Mckinney RN documented in this encounterSelect [facility]10-23-2024 Note Indication Evaluation of growth Maternal obesity, [...] 9 oz EFW by: Hadlock (HC-AC-FL) Extended Human Machine Interface Engineer 3.5 mm Extremities / Bony Struc [place] [...] By: Khushboo Easley RDMS, RVT Read By: Vilma Farrell M.D.MATERNAL [id number] Progress note* Quick Notes - Margarita Alcala [...] Tdap today Margarita Alcala MD [facility]10-23-2024 Miscellaneous Notes* Quick Notes - Margarita Alcala [...] Alcala MD documented in this encounterSelect [facility]10-23-2024 NoteHNO ID: [id number] Author: IDA CISNEROS MA Service: ? Author Type: Livestock Slaughterer Type: Progress Notes Filed: 04/14/2024 11:09 Note [...] severely ill: Yes Patient denies history of Guillain-Thomson Syndrome (a severe paralytic illness): Yes Tdap Adacel injection was given without incident. See immunizations for details of immunizations administered today. VIS sheet provided: Yes Provider Margarita Alcala MD was present in office at time of injection. Ida Cisneros [facility]10-23-2024 History of Present illness Narrative* Ida Cisneros [...] severely ill: Yes Patient denies history of Guillain-Thomson Syndrome (a severe paralytic illness): Yes Tdap Adacel injection was given without incident. See immunizations for details of immunizations administered today. VIS sheet provided: Yes Provider Margarita Alcala MD was present in office at time of injection. Ida Cisneros MA documented in this encounterSelect Medical [facility]10-23-2024 Instructions* Patient Instructions* Ida Cisneros MA - 04/14/2024 10:26 AM EDT SEQUENTIAL SCREENINGS The [facility] offers sequential screenings for women who are [...] testing. It will require an appointment withour transportation planning technician. This is not an ultrasound performed [...] the above symptoms, contact our office at [phone] and ask to speak with anurse. After hours, you can call doctors registry at [phone] OR call [facility] at [phone] ask to have the doctor director of in service education paged. If you consider this an emergency, dial 3-4-9 or go to your nearest emergency department. NEED HELP? Are you dealing with a violent or abusive relationship? Are you a victim of rape or sexual assult? Call [facility] ([place]) 24 hour Crisis Hotline: 753.131.1214 or 711-907-7918. MANUAL Your Guide to a Healthy manual is now on-line. Visit [email or web address] to download your free copy documented in this encounterSelect [facility]10-11-2024 Progress note* Quick Notes - Marcela Connors [...] routine visit Marcela Connors APRN.CNM [facility] Work Phone: [phone] Miscellaneous Notes* Quick Notes - Marcela Connors [...] Connors APRN.CNM documented in this encounterSelect Medical Specialty [facility]10-11-2024 Instructions* Patient Instructions* Shahzad Romero MA - 04/02/2024 4:18 PM EDT SEQUENTIAL SCREENINGS The [facility] offers sequential screenings for women who are [...] testing. It will require an appointment withour transportation planning technician. This is not an ultrasound performed [...] the above symptoms, contact our office at [phone] and ask to speak with anurse. After hours, you can call doctors registry at [phone] OR call [facility] at [phone] ask to have the doctor director of in service education paged. If you consider this an emergency, dial 9-6-4 or go to your nearest emergency department. NEED HELP? Are you dealing with a violent or abusive relationship? Are you a victim of rape or sexual assult? Call [facility] ([place]) 24 hour Crisis Hotline: 393.560.3207 or 125-095-4267. MANUAL Your Guide to a Healthy manual is now on-line. Visit [email or web address] to download your free copy documented in this encounterSelect Medical [facility]ty [facility]09-25-2024 Note Indication Evaluation of growth IUFD 26 [...] by U/S 24 w + 4 d JAEN by U/S: 07/03/2024 Assigned: based on the [...] 9 oz EFW by: Hadlock (HC-AC-FL) Extended Human Machine Interface Engineer 3.3 mm Extremities / Bony Struc [place] [...] By: Khushboo Easley RDMS, RVT Read By: Vilma Farrell M.D.MATERNAL [id number] Progress note* Quick Notes - Jt Lugo [...] W/REFLEX; Future Jt Lugo M.D. [facility]09-25-2024 Miscellaneous Notes* Quick Notes - Jt Lugo [...] Lugo M.D. documented in this encounterSelect Medical Specialty [facility]09-25-2024 Instructions* Patient Instructions* Babita Blankenship LPN - 03/17/2024 2:46 PM EDT SEQUENTIAL SCREENINGS The [facility] offers sequential screenings for women who are [...] testing. It will require an appointment withour transportation planning technician. This is not an ultrasound performed [...] the above symptoms, contact our office at [phone] and ask to speak with anurse. After hours, you can call doctors registry at [phone] OR call [facility] at [phone] ask to have the doctor director of in service education paged. If you consider this an emergency, dial 91-8 or go to your nearest emergency department. NEED HELP? Are you dealing with a violent or abusive relationship? Are you a victim of rape or sexual assult? Call [facility] ([place]) 24 hour Crisis Hotline: 949.292.3291 or 807-146-7415. MANUAL Your Guide to a Healthy manual is now on-line. Visit [email or web address] to download your free copy SEQUENTIAL SCREENINGS The [facility] offers sequential screenings for women who are [...] testing. It will require an appointment withour transportation planning technician. This is not an ultrasound performed [...] the above symptoms, contact our office at [phone] and ask to speak with anurse. After hours, you can call doctors registry at [phone] OR call [facility] at [phone] ask to have the doctor director of in service education paged. If you consider this an emergency, dial 02-21- or go to your nearest emergency department. NEED HELP? Are you dealing with a violent or abusive relationship? Are you a victim of rape or sexual assult? Call [facility] ([place]) 24 hour Crisis Hotline: 136.964.4705 or 955-917-4906. MANUAL Your Guide to a Healthy manual is now on-line. Visit [email or web address] to download your free copy documented in this encounterSelect [facility]08-28-2024 Telephone encounter Note * Telephone Encounter - Carla Mckinney RN - 02/18/2024 9:53 AM EDT 2nd risk assessment form submitted 02/18/24 Carla Mckinney RN [facility]08-28-2024 Miscellaneous Notes* Telephone Encounter - Carla Mckinney RN - 02/18/2024 9:53 AM EDT 2nd risk assessment form submitted 02/18/24 Carla Mckinney RN documented in this encounterSelect Medical [facility]08-27-2024 Progress note* Quick Notes - Margarita Alcala [...] Nml BP Margarita Alcala MD [facility]08-27-2024 Miscellaneous Notes* Quick Notes - Margarita Alcala [...] Alcala MD documented in this encounterSelect Medical Specialty [facility]08-27-2024 Instructions* Patient Instructions* Ida Cisneros MA - 02/17/2024 9:23 AM EDT SEQUENTIAL SCREENINGS The [facility] offers sequential screenings for women who are [...] testing. It will require an appointment withour transportation planning technician. This is not an ultrasound performed [...] the above symptoms, contact our office at [phone] and ask to speak with anurse. After hours, you can call doctors registry at [phone] OR call [facility] at [phone] ask to have the doctor director of in service education paged. If you consider this an emergency, dial 9-5- or go to your nearest emergency department. NEED HELP? Are you dealing with a violent or abusive relationship? Are you a victim of rape or sexual assult? Call [facility] ([place]) 24 hour Crisis Hotline: 120.993.5827 or 864-079-5734. MANUAL Your Guide to a Healthy manual is now on-line. Visit [email or web address] to download your free copy documented in this encounterSelect Medical Specialty [facility]08-27-2024 History of Present illness Narrative* Vilma Farrell MD - 02/17/2024 9:08 AM EDT Images from the original note were not included. 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 Denies vaginal Bleeding, Leaking fluid, or regular Contractions. Pt reports good movement Physical Exam: Gen: female in no apparent distress Abd: soft, Gravid. Non tender to palpation. See flow sheet A/P: @ 16.2 weeks 1) anatomy us scheduled with [facility] 2) continue ASA 3) second trimester screen today 4) RTO 4 wks. Sarah Warner MD documented in this encounterSelect Medical [facility]07-30-2024 Progress note* Quick Notes - Sarah Huber MD - 01/20/2024 3:03 PM EDT DM-Pt doing well. Denies vaginal Bleeding, Leaking fluid, or regular Contractions. Pt reports good movement Physical Exam: Gen: female in no apparent distress Abd: soft, Gravid. Non tender to palpation. See flow sheet A/P: @ 16.2 weeks 1) anatomy us scheduled with [facility] 2) continue ASA 3) second trimester screen today 4) RTO 4 wks. Sarah Warner MD [facility]07-19-2024 Telephone encounter Note* Telephone Encounter - Jeanette Patel MD - 01/09/2024 10:37 AM EDT Noted & agree Jeanette Patel MD [facility]07-19-2024 Miscellaneous Notes* Telephone Encounter - Jeanette Patel [...] Hearn RN documented in this encounterSelect [facility]07-19-2024 Telephone encounter Note * Telephone Encounter - [...] develops pain. Margarita Hearn RN [facility]07-11-2024 Progress note* Quick Notes - Jeanette Patel [...] continue aspirin Jeanette Patel MD [facility]07-11-2024 Miscellaneous Notes* Quick Notes - Jeanette Patel [...] Patel MD documented in this encounterSelect [facility]07-11-2024 Instructions* Patient Instructions* Shahzad Romero MA - 01/01/2024 9:55 AM EDT SEQUENTIAL SCREENINGS The [facility] offers sequential screenings for women who are [...] testing. It will require an appointment withour transportation planning technician. This is not an ultrasound performed [...] the above symptoms, contact our office at [phone] and ask to speak with anurse. After hours, you can call doctors registry at [phone] OR call [facility] at [phone] ask to have the doctor director of in service education paged. If you consider this an emergency, dial 4-8-6 or go to your nearest emergency department. NEED HELP? Are you dealing with a violent or abusive relationship? Are you a victim of rape or sexual assult? Call [facility] ([facility] 24 hour Crisis Hotline: 408.484.9937 or 430-367-8896. MANUAL Your Guide to a Healthy manual is now on-line. Visit [email or web address] to download your free copy documented in this encounterSelect [facility]07-01-2024 Telephone encounter Note * Telephone Encounter - Sarah Huber MD - 12/22/2023 3:06 PM EDT signed [facility]07-01-2024 Miscellaneous Notes* Telephone Encounter - Sarah Huber [...] Hearn RN documented in this encounterSelect [facility]07-01-2024 Telephone encounter Note * Telephone Encounter - Khushboo Abraham RN - 12/22/2023 3:04 PM EDT Patient notified and voiced understanding. Please file pended order. Khushboo Abraham RN [facility]07-01-2024 Telephone encounter Note* Telephone Encounter - Sarah Huber MD - 12/22/2023 2:51 PM EDT Phenergan ordered [facility]07-01-2024 Telephone encounter Note* Telephone Encounter - Margarita [...] for her? Margarita Hearn RN [facility]06-10-2024 Progress note* Quick Notes - Tyshawn Lorenzana MD - 12/01/2023 12:16 PM EDT Pt is a multip presenting at 9w1d with c/o cramping in the absence of UTI and concerns regarding status. Recent trips t0 [facility] ER with dx of URI/viral and currently on amox per Dr. Irina Mckinney, Pt denies bleeding and is refraining from intercourse (last time 2 days ago) with exacerbation of cramps. Trans abdominal sono reveals heart activity. IMP viable IUP at 9w1d Plan no intercourse and otherwise activity other than heavy lifting. RTO PNC as scheduled Tyshawn Lorenzana MD . [facility] Work Phone: 1(261) 395-937906-10-2024 Miscellaneous Notes* Quick Notes - Tyshawn Lorenzana MD - 12/01/2023 12:16 PM EDT Pt is a multip presenting at 9w1d with c/o cramping in the absence of UTI and concerns regarding status. Recent trips t0 [facility] ER with dx of URI/viral and [...] MD . documented [facility] Instructions* Patient Instructions* La Bowden MA - 12/01/2023 12:00 PM EDT SEQUENTIAL SCREENINGS The [facility] offers sequential screenings for women who are [...] testing. It will require an appointment withour transportation planning technician. This is not an ultrasound performed [...] the above symptoms, contact our office at [phone] and ask to speak with anurse. After hours, you can call doctors registry at [phone] OR call [facility] at [phone] ask to have the doctor director of in service education paged. If you consider this an emergency, dial [phone] or go to your nearest emergency department. NEED HELP? Are you dealing with a violent or abusive relationship? Are you a victim of rape or sexual assult? Call [facility] ([place]) 24 hour Crisis Hotline: 345.747.9034 or 708-466-0507. MANUAL Your Guide to a Healthy manual is now on-line. Visit [email or web address] to download your free copy documented in this encounter[facility]05-[facility]24 Telephone encounter Note * Telephone Encounter - Liza Champagne RN - 11/14/2023 9:56 AM EDT 1st risk assessment form submitted 11/14/2023 6w 5d today [facility]-24-[facility]24 Miscellaneous Notes* Telephone Encounter - Liza Champagne RN - 11/14/2023 9:56 AM EDT 1st risk assessment form submitted 11/14/2023 6w 5d today documented in this encounter[facility] History of Present illness Narrative* Sharda Valero, ADONIS.KAITLYNN - 11/10/2023 3:12 PM EDT INITIAL OB [...] Status:Co-habitating Partner: Name: Sarath Age: 31 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 Sharda Valero, FITNESS AND WELLNESS DIRECTOR.COSTUME SHOP COORDINATOR ASSESSMENT: 27 year old No obstetric history on file. at Unknown wks gestational age PLAN: 1) Patient oriented to practice. Patient given new OB orientation folder. Discussed nutrition, folic acid supplementation, dietary guidelines, exercise, smoking, alcohol, caffeine, and drug use. Discussed gestational weight gain guidelines. Discussed routine OB labs including STD/HIV. Discussed how to access Your guide to a health and the Wire Winding Machine Operator. Discussed hemoglobin electrophoresis. Patient: Declines Reviewed midwifery and button sewer services that are available. 2) Screening: Hemoglobin [...] Follow up in 5 weeks or sooner lucia. Sharda Valero APRN.KAITLYNN documented in this encounter[facility]05-20-[facility]24 Instructions* Patient Instructions* Rachana Montanez LPN - 11/10/2023 3:12 PM EDT Please select the following link to access the [facility] Your Guide to a Healthy . [email or web address] Please select the following link to access the [facility] Your Guide to a Healthy . [email or web address] documented in this encounterSelect [facility]01-25-2024 Discharge summary Author Piter Bertrand [facility] July 17, 2023 4:54pm Note Date/Time July 17, 2023 4 :55pm [facility] Medical Records Department [address] [place] [address] Emergency Department Summary 07/17/23 MR#: [id number] Acct: [id number] Name: SHILPA HOANG Rep #:[id number] : [...] depression (spontaneous vaginal delivery) Trauma Home Medications unvlntag-jus-Ts-[id number] 1 mg tablet 1 tab PO DAILY [...] and lower extremities. 5 out of 5 terra cotta setter strength bilaterally. Dorsi plantarflexion intact. Mild tenderness right posterior upper shoulder no bruising. Full range of motion of the right shoulder. Able to lift her arm overhead. Full flexion extension of the right elbow nontender. Minimal tenderness to the dorsum of the right wrist no deformity normal radial pulse normal terra cotta setter strength and sensation of the right hand. [...] Signed: Norman Ryder MD at 16:49 EST , Wrist X-Ray 07/17/23 15:45 IMPRESSION: Normal [...] problems, contact your Primary Care Provider. Call [facility] ([phone]) or report to the closest Emergency Room. Call 911 if necessary. 07/17/23 1654 <Electronically signed by Piter Bertrand MD> Cosigner Signature (if applicable): CC: Dr. David Mckinney MD ~ Signed [facility] Work Phone: 1(697) 145-834910-25-2023 Discharge summary Author Joanna England [facility] April 16, 2023 11:19am Note Date/Time April 16, 2023 1 1:19am [facility] Physical Therapy [facility] [address] [place] [address] / REHABILITATION SERVICES DISCHARGE SUMMARY MR#: [id number] Acct: [id number] Name: SHILPA HOANG Rep #: [id number] : 1995 27 From: Joanna England PT, Cert. MDT Referring Dr.: Dr. David Mckinney MD Status: REG R Insurance: [facility] SELF PAY INSURANCE Patient Information Patient Information: [...] signed by Farhat Paredes PT. MDT> 04/16/23 1110 CC: Dr. David Mckinney MD ~ DENICE Signed [facility] Work Phone: 1(606) 744-711105-10-2023 NotePap Smear Specimen AdequacyMay 2022 1:29pmComment.Satisfactory for evaluation. Endocervical and/or squamous metaplasticcells (endocervical component)are present.Areas of partially obscuring inflammatory exudate are present.[facility] INTER[facility]ACED A#[id number] Clinic FoundationComment on above:Satisfactory for evaluation. Endocervical and/or squamous metaplasticcells (endocervical component)are present.Areas of partially obscuring inflammatory exudate are present.10-30-2022 NotePap Smear Specimen AdequacyMay 2022 1:29pmComment.Satisfactory for evaluation. Endocervical and/or squamous metaplasticcells (endocervical component)are present.Areas of partially obscuring inflammatory exudate are present.[facility] INTER[facility]ACED A#[id number] Clinic FoundationComment on above:Satisfactory for evaluation. Endocervical and/or squamous metaplasticcells (endocervical component)are present.Areas of partially obscuring inflammatory exudate are present.10-30-2022 NotePap Smear Specimen AdequacyMay 2022 1:29pmComment. Satisfactory for evaluation. Endocervical and/or squamous metaplasticcells (endocervical component)are present.Areas of partially obscuring inflammatory exudate are present.[facility] INTER[facility]ACED A#[id number] Clinic Foundation Comment on above:Satisfactory for evaluation. Endocervical and/or squamous metaplasticcells (endocervical component)are present.Areas of partially obscuring inflammatory exudate are present.06-07-2022 Miscellaneous Notes* Addendum Note - Everardo Patel APRN.CNP - 06/07/2022 7:56 PM ESTAddended by: EVERARDO PATEL on: 06/07/2022 07:56 PM Modules accepted: Orders documented in this encounterSelect [facility]12-16-2022 History of Present illness Narrative* Everardo Patel [...] Patient agreeable to treatment plan. Everardo Patel APRN.COSTUME SHOP COORDINATOR documented in this encounterSelect [facility]09-02-2022 Hospital Discharge instructions Additional Instructions Regular diet. Weightbearing as tolerated. Okay to shower. No intercourse for 4 to 6 weeks. Call if chest pain, shortness of breath increased bleeding. Follow-up 1 week for blood pressure check, 4 to 6 weeks for visit Date of Discharge: 02/22/22[facility] Work Phone: [employer] note* Diagnosis Onset Date Resolution Status 22 weeks gestation of acute Vaginal bleeding during , antepartum acute [facility] Work Phone: [phone] note* Diagnosis Onset Date Resolution Status 22 weeks gestation of acute Vaginal bleeding during , antepartum acute [facility] Work Phone: [phone] note* Diagnosis Onset Date Resolution Status 22 weeks gestation of acute Vaginal bleeding during , antepartum acute acute Irregular contractions acute Gestational hypertension acu [facility] Work Phone: [employer] note* Diagnosis Acute otitis media, right- Primary Unspecified otitis media URI, acute Acute upper respiratory infections of unspecified site documented in this encounter [facility] IncEvalunem[facility] [place] noteNo assessment information availableWBethesda North Hospital Work Phone: [employer] note* Diagnosis 6 weeks gestation of - Primary state, incidental care, subsequent in first trimester Encounter for supervision of normal in multigravida in first trimester History of gestational hypertension History of IUFD documented in this encounter [facility]* Diagnosis Encounter for supervision of other normal in second trimester- Primary 13 weeks gestation of state, incidental History of IUFD documented in this encounter [facility] IncEvalunem[facility] [place] note* Diagnosis Encounter for (NT) nuchal translucency scan- Primary Other specified screening 13 weeks gestation of state, incidental Encounter for screening for malformation using ultrasound documented [facility] [place] [facility]* Diagnosis Supervision of high risk in second trimester- Primary Unspecified high-risk History of IUFD History of gestational hypertension 16 weeks gestation of state, incidental documented in this encounter [facility] [place] [facility]* Diagnosis History of IUFD- Primary Encounter for supervision of other normal in second trimester History of gestational hypertension History of drug abuse (HCC) Other, mixed, or unspecified nondependent drug abuse, in remission 20 weeks gestation of state, incidental Obesity affecting in second trimester, unspecified obesity type * Assessment & Plan Note - Vilma Farrell MD - 02/17/2024 8:48 AM EDTAssociated Problem(s): History of drug abuse (HCC) Currently in remission * Assessment & Plan Note - Vilma Farrell MD - 02/17/2024 8:48 AM EDTAssociated Problem(s): History of gestational hypertension Continue baby aspirin * Assessment & Plan Note - Vilma Farrell MD - 02/17/2024 8:47 AM EDTAssociated [...] at 32 weeks [facility]* Diagnosis History of IUFD- Primary Encounter [...] of gestational hypertension documented in this encounter [facility] note* Diagnosis History of IUFD- Primary Encounter for supervision of other normal in second trimester History of gestational hypertension History of drug abuse (HCC) Other, mixed, or unspecified nondependent drug abuse, in remission 20 weeks gestation of state, incidental Obesity affecting in second trimester, unspecified obesity type History of IUFD- Primary documented in this encounter [facility] note* Diagnosis History of IUFD- Primary Encounter [...] TOTAL W/REFLEX; Future documented in this encounter [facility] [place] [facility]* Diagnosis History of IUFD- Primary Encounter [...] of state, incidental documented in this encounter [facility] note* Diagnosis History of IUFD- Primary Encounter [...] of state, incidental documented in this encounter [facility] note* Diagnosis History of IUFD- Primary Encounter [...] unspecified single disease documented in this encounter [facility] note* Diagnosis History of IUFD- Primary Encounter [...] or unspecified fetus documented in this encounter [facility] [place] [facility]* Diagnosis History of IUFD- Primary Encounter [...] History of IUFD documented in this encounter [facility] [place] [facility]* Diagnosis Encounter for supervision of normal in multigravida in first trimester- Primary 9 weeks gestation of state, incidental documented in this encounter [facility] [place] [facility]* Diagnosis History of IUFD- Primary Encounter [...] IUFD documented in this encounter [facility] [place] [facility]* Diagnosis History of IUFD- Primary Encounter [...] of state, incidental documented in this encounter [facility] note* Diagnosis History of IUFD- Primary Encounter [...] History of IUFD documented in this encounter [facility] note* Diagnosis History of IUFD- Primary Encounter [...] of state, incidental documented in this encounter [facility] note* Diagnosis History of IUFD- Primary Encounter [...] unspecified obesity type documented in this encounter [facility] note* Diagnosis History of IUFD- Primary Encounter [...] in third trimester documented in this encounter [facility] note* Diagnosis History of IUFD- Primary Encounter [...] third trimester- Primary documented in this encounter [facility] note* Diagnosis History of IUFD- Primary Encounter [...] poly at 28cm) documented in this encounter [facility] note* Diagnosis History of IUFD- Primary Encounter [...] of state, incidental documented in this encounter [facility] note* Diagnosis History of IUFD- Primary Encounter [...] History of IUFD documented in this encounter [facility] note* Diagnosis History of IUFD- Primary Encounter [...] Primary documented in this encounter [facility]* Diagnosis History of IUFD- Primary [...] advice on contraception documented in this [facility] [place] [facility]* Diagnosis History of IUFD- Primary Encounter [...] intrauterine contraceptive device documented in this encounter [facility] IncEvalunem[facility] [place] note* Diagnosis History of IUFD- Primary Encounter for supervision of other normal in second trimester ([facility]) History of gestational hypertension History of drug abuse ([facility]) Other, mixed, or unspecified nondependent drug abuse, in remission 20 weeks gestation of ([facility]) state, incidental Obesity affecting in second trimester, unspecified obesity type ([facility]) Supervision of high risk in second trimester ([facility])- Primary Unspecified high-risk History of IUFD History of gestational hypertension 24 weeks gestation of ([facility]) state, incidental Supervision of high risk in third trimester ([facility])- Primary Unspecified high-risk Antepartum anemia complicating in third trimester ([facility]) History of gestational hypertension History of IUFD Leg swelling in in third trimester ([facility]) Breech presentation with problem, single or unspecified fetus ([facility]) 36 weeks gestation of ([facility]) state, incidental with uncertain dates, antepartum ([facility])- Primary state, incidental 12 weeks gestation of ([facility]) state, incidental History of gestational hypertension Late care ([facility]) Insufficient care Generalized anxiety disorder History of drug abuse ([facility]) Other, mixed, or unspecified nondependent drug abuse, in remission Vapes nicotine containing substance Encounter for supervision of high risk in second trimester, antepartum ([facility]) History of IUFD documented in this encounter [facility] note* Diagnosis History of IUFD- Primary Encounter for supervision of other normal in second trimester ([facility]) History of gestational hypertension History of drug abuse ([facility]) Other, mixed, or unspecified nondependent drug abuse, in remission 20 weeks gestation of ([facility]) state, incidental Obesity affecting in second trimester, unspecified obesity type ([facility]) Supervision of high risk in second trimester ([facility])- Primary Unspecified high-risk History of IUFD History of gestational hypertension 24 weeks gestation of ([facility]) state, incidental Supervision of high risk in third trimester ([facility])- Primary Unspecified high-risk Antepartum anemia complicating in third trimester ([facility]) History of gestational hypertension History of IUFD Leg swelling in in third trimester ([facility]) Breech presentation with problem, single or unspecified fetus ([facility]) 36 weeks gestation of ([facility]) state, incidental History of gestational hypertension- Primary History of drug abuse ([facility]) Other, mixed, or unspecified nondependent drug abuse, in remission Late care ([facility]) Insufficient care Encounter for supervision of high risk in second trimester, antepartum ([facility]) Vapes nicotine containing substance Generalized anxiety disorder 18 weeks gestation of ([facility]) state, incidental Dysuria Elevated blood pressure reading without diagnosis of hypertension documented in this encounter [facility] note* Diagnosis History of IUFD- Primary Encounter for supervision of other normal in second trimester ([facility]) History of gestational hypertension History of drug abuse ([facility]) Other, mixed, or unspecified nondependent drug abuse, in remission 20 weeks gestation of ([facility]) state, incidental Obesity affecting in second trimester, unspecified obesity type ([facility]) Supervision of high risk in second trimester ([facility])- Primary Unspecified high-risk History of IUFD History of gestational hypertension 24 weeks gestation of ([facility]) state, incidental Supervision of high risk in third trimester ([facility])- Primary Unspecified high-risk Antepartum anemia complicating in third trimester (HCC) History of gestational hypertension History of IUFD Leg swelling in in third trimester (HCC) Breech presentation with problem, single or unspecified fetus (HCC) 36 weeks gestation of (HCC) state, incidental Encounter for supervision of high risk in second trimester, antepartum (HCC)- Primary Chronic hypertension complicating or reason for care during childbirth (HCC) Benign essential hypertension complicating , childbirth, and the puerperium, unspecified as to episode of care Late care (HCC) Insufficient care History of gestational hypertension History of drug abuse (HCC) Other, mixed, or unspecified nondependent drug abuse, in remission Vapes nicotine containing substance 20 weeks gestation of (HCC) state, incidental * Assessment & Plan Note - Sarah Huber MD - 01/12/2025 10:10 AM EDTAssociated Problem(s): Encounter for supervision of high risk in second trimester, antepartum ([facility]) Orders: OBSTETRIC ULTRASOUND WHI; Standing * Assessment [...] substance documented in this encounter [facility]* Diagnosis History of IUFD- Primary Encounter for supervision of other normal in second trimester ([facility]) History of gestational hypertension History of drug abuse ([facility]) Other, mixed, or unspecified nondependent drug abuse, in remission 20 weeks gestation of ([facility]) state, incidental Obesity affecting in second trimester, unspecified obesity type ([facility]) Supervision of high risk in second trimester ([facility])- Primary Unspecified high-risk History of IUFD History of gestational hypertension 24 weeks gestation of ([facility]) state, incidental Supervision of high risk in third trimester ([facility])- Primary Unspecified high-risk Antepartum anemia complicating in third trimester ([facility]) History of gestational hypertension History of IUFD Leg swelling in in third trimester ([facility]) Breech presentation with problem, single or unspecified fetus ([facility]) 36 weeks gestation of ([facility]) state, incidental Encounter for screening for malformation using ultrasound ([facility])- Primary 20 weeks gestation of ([facility]) state, incidental Encounter for supervision of high risk in second trimester, antepartum ([facility])- Primary Chronic hypertension complicating or reason for care during childbirth ([facility]) Benign essential hypertension complicating , childbirth, and the puerperium, unspecified as to episode of care Late care ([facility]) Insufficient care History of gestational hypertension History of drug abuse (HCC) Other, mixed, or unspecified nondependent drug abuse, in remission Vapes nicotine containing substance 20 weeks gestation of (HCC) state, incidental documented in this encounter [facility]* Diagnosis History of IUFD- Primary Encounter for supervision of other normal in second trimester ([facility]) History of gestational hypertension History of drug abuse (HCC) Other, mixed, or unspecified nondependent drug abuse, in remission 20 weeks gestation of (HCC) state, incidental Obesity affecting in second trimester, unspecified obesity type ([facility]) Supervision of high risk in second trimester ([facility])- Primary Unspecified high-risk History of IUFD History of gestational hypertension 24 weeks gestation of ([facility]) state, incidental Supervision of high risk in third trimester ([facility])- Primary Unspecified high-risk Antepartum anemia complicating in third trimester ([facility]) History of gestational hypertension History of IUFD Leg swelling in in third trimester ([facility]) Breech presentation with problem, single or unspecified fetus ([facility]) 36 weeks gestation of ([facility]) state, incidental Encounter for supervision of high risk in second trimester, antepartum ([facility])- Primary Chronic hypertension complicating or reason for care during childbirth ([facility]) Benign essential hypertension complicating , childbirth, and the puerperium, unspecified as to episode of care Late care ([facility]) Insufficient care History of gestational hypertension History of drug abuse (HCC) Other, mixed, or unspecified nondependent drug abuse, in remission Vapes nicotine containing substance 20 weeks gestation of ([facility]) state, incidental Encounter for supervision of high risk in second trimester, antepartum ([facility])- Primary Chronic hypertension complicating or reason for care during childbirth ([facility]) Benign essential hypertension complicating , childbirth, and the puerperium, unspecified as to episode of care Late care ([facility]) Insufficient care 24 weeks gestation of ([facility]) state, incidental Nicotine use Heartburn during in second trimester ([facility]) Iron deficiency anemia secondary to inadequate dietary iron intake Screening for diabetes mellitus [facility] Work Phone: Hospital Discharge instructionsAmbulatory Orders* ON- CALL NEEDED: [facility] Doppler Study Ordered Location: None Selected Additional Instructions You will be called tomorrow to come in for venous ultrasound of your leg. This will ensure there is no evidence of a blood clot. Please use Tylenol as needed for pain.[facility] Work Phone: Hospital Discharge instructionsWBethesda North Hospital Work Phone: Hospital Discharge instructions Additional Instructions Follow-up with your PCP, return for any worsening of your symptoms. You can take [id number] cold and flu medications. Stay well-hydrated. Try [...] day 10 you may resume life is normal.[facility] Work Phone: Hospital Discharge instructions Additional Instructions Please ensure that you drink enough water. Please return here for any worsening symptomsWBethesda North Hospital Work Phone: Hospital Discharge instructions Additional [...] follow-up with your doctor to have it reevaluated.[facility] Work Phone: Hospital Discharge instructions Additional Instructions [...] care physician for further outpatient evaluation and management.[facility] Work Phone: Hospital Discharge instructions Additional Instructions [...] handout/resources provided) for further outpatient evaluation and management.[facility] Work Phone: Hospital Discharge instructions Additional Instructions [...] please return to the ER for repeat evaluation.[facility] Work Phone: Hospital Discharge instructions Additional Instructions heart rate 154 on bedside ultrasound. Your abdominal labs were normal. Your urine results were pending however you needed to leave before results. No urinary symptoms. Keep your follow-up with your OB team.[facility] Work Phone: Hospital Discharge instructionsAdditional Instructions Follow up with your family doctor and HISTORICAL INTERPRETER. You may take ylvn-jlt-tpjafot decongestant such as Tylenol Cold and flu or Mucinex DM. You been given a prescription for Mucinex DM. You may also use Flonase which is available yovq-dri-[id number]. Use as directed do not use for more than 3 days because of the increased risk of rebound congestion. If you have worsening symptoms, fever or difficulty breathing please return to the emergency room.[facility] Work Phone: Reason for referral (narrative)* Diagnostic Procedure Only (Routine) - Authorized Specialty Diagnoses / Procedures Referred By Contac t Referred To Contact [facility] Diagnoses 6 weeks gestation of Procedures NUCHAL TRANSLUCENCY WHI US NUCHAL TRANSLUCENCY 1ST GESTATION Sharda Valero APRN.CNP [address] [place] [address] [facility] [address] [place] [id number] Referral ID Status Reason Start Date Expiration Date Visits Requested Visits Authorized [id number] Authorized Auto-Generat ed Referral 11/13/2023 11/12/2024 1 1 [facility] for referral (narrative)* Diagnostic Procedure Only (Routine) - New Request Specialty Diagnoses / Procedures Referred By Contac t Referred To Contact [facility] Diagnoses History of IUFD Procedures OBSTETRIC ULTRASOUND WHI US PREG UTERUS AFTER 1ST TRIMEST GESTATION Jeanette Patel MD [address] [place] [address] [facility] [place] [address] [place] [address] Referral ID Status Reason Start Date Expiration Date Visits Requested Visits Authorized [id number] New Request Auto-Generat ed Referral 02/17/2024 02/16/2025 2 1 [facility] for referral (narrative)* Diagnostic Procedure Only (Routine) - New Request Specialty Diagnoses / Procedures Referred By Contac t Referred To [facility] Diagnoses Supervision of other high risk pregnancies, third trimester Polyhydramnios in third trimester complication, single or unspecified fetus History of IUFD Procedures OBSTETRIC ULTRASOUND WHI US PREG UTERUS AFTER 1ST TRIMEST GESTATION Jt Lugo MD [address] [place] [address] [facility] [place] [address] [place] [id number] Referral ID Status Reason Start Date Expiration Date Visits Requested Visits Authorized [id number] New Request Auto-Generat ed Referral 04/14/2025 3 1 [facility] for referral (narrative)* Outpatient Procedure (Routine) - New Request Specialty Diagnoses / Procedures Referred By Nina salazar Referred To Contact [facility] Diagnoses History of IUFD Procedures NON-STRESS TEST NON-STRESS TEST Margarita Alcala MD [address] [place] [address] [address] Referral ID Status Reason Start Date Expiration Date Visits Requested Visits Authorized [id number] New Request Auto-Generat ed Referral 04/28/2024 04/28/2025 1 1 [facility] for referral (narrative)* Outpatient Procedure (Routine) - Authorized Specialty Diagnoses / Procedures Referred By Nina saalzar Referred To Contact [facility] Diagnoses Encounter for other general counseling or advice on contraception Procedures INSERT INTRAUTERINE DEVICE LEVONORGESTREL IU 52MG 5 YR INSERT INTRAUTERINE DEVICE Sharda Valero APRN.CNP [address] [place] [address] [address] Referral ID Status Reason Start Date Expiration Date Visits Requested Visits Authorized [id number] Authorized Auto-Generat ed Referral 07/29/2024 07/29/2025 1 1 [facility] for referral (narrative)No reason for referral information availableWBethesda North Hospital Work Phone: Chief Complaint and Reason for [...] 2 024 3:30pm (spontaneous vaginal delivery) Decem 2023 3:30pm Chief Complaint Admit Date VERSION [...] 1:46 pm [facility] January 28, 2 025 10:34am Chief Complaint Admit Date NAUSEA October 11, 2024 11: 39pm ABD PAIN October 21, 2024 4:31pm abd pain December 11, 2024 1:46 pm [facility] ONLY DID BA T January 28, 2025 10:34am Chief Complaint Admit Date ABD PAIN October 21, 2024 4:31pm abd pain December 11, 2024 1:46 pm [facility] ONLY DID BA T January 28, 2025 10:34am Chief Complaint Admit Date abd pain December 11, 2024 1:46 pm [facility] ONLY DID BA T January 28, 2025 10:34am CONGESTION March 10, 2025 12:30pm Advance Directives No Advanced Directives Records Found Advance Directive Response Recorded Date/ Time Advance Directives No June 30, 2016 6:49pm Living Will No September 13, 2021 11:23am Power of Residential Appraiser No September 13 11:23am Advance Directive Response Recorded Date/ Time Advance Directives No June 30, 2016 6:49pm Living Will No December 22, 2021 9 :23pm Power of Residential Appraiser No December 22, 2021 9:23pm Advance Directive Response Recorded Date/ Time Advance Directives No June 30, 2016 6:49pm Living Will No February 20 5:12pm Power of Residential Appraiser No February 20 022 5:12pm Advance Directive Response Recorded Date/ Time Advance Directives No June 30, 2016 5:49pm Living Will No February 20 4:12pm Power of Residential Appraiser No February 20 4:12pm Advance Directive Response Recorded Date/ Time Advance Directives No June 30, 2016 6:49pm Living Will No January 08, 2023 3:14pm Power of Residential Appraiser No January 08 3:14pm Advance Directive Response Recorded Date/ Time Advance Directives No June 30, 2016 6:49pm Living Will No February 24, 2 023 4:26pm Power of Residential Appraiser No February 24, 2023 4:26pm Advance Directive Response Recorded Date/ Time Advance Directives No June 30, 2016 5:49pm Living Will No February 24, 2 023 3:26pm Power of Residential Appraiser No February 24, 2023 3:26pm Advance Directive Response Recorded Date/ Time Advance Directives No June 30, 2016 5:49pm Living Will No May 11, 2 023 5:41pm Power of Residential Appraiser No May 11, 2023 5:41pm Advance Directive Response Recorded Date/ Time Advance Directives No June 30, 2016 5:49pm Living Will No June 10, 2 023 12:08pm Power of Residential Appraiser No June 10, 2023 12:08pm Advance Directive Response Recorded Date/ Time Advance Directives No June 30, 2016 5:49pm Living Will No July 17 4:36pm Power of Residential Appraiser No July 17, 2023 4:36pm Advance Directive Response Recorded Date/ Time Advance Directives No June 30, 2016 5:49pm Living Will No August 10 024 10:41am Power of Residential Appraiser No August 10, 2023 10:41am Advance Directive Response Recorded Date/ Time Living Will No October 02, 2024 10:46pm Do you have a Healthcare Power of Residential Appraiser? No October 02, 2024 10:46pm Living Will No June 17, 024 4:41pm Do you have a Healthcare Power of Residential Appraiser? No June 17, 2024 4:41pm Advance Directives No June 30, 2016 6:49pm Advance Directive Response Recorded Date/ Time Living Will No October 02, 2024 10:46pm Do you have a Healthcare Power of Residential Appraiser? No October 02, 2024 10:46pm Living Will No June 17 024 4:41pm Do you have a Healthcare Power of Residential Appraiser? No June 17, 2024 4:41pm Living Will No October 11, 2024 11:41pm Do you have a Healthcare Power of Residential Appraiser? No October 11, 2024 11:41pm Advance Directives No June 30, 2016 6:49pm Advance Directive Response Recorded Date/ Time Living Will No October 02, 2024 10:46pm Do you have a Healthcare Power of Residential Appraiser? No October 02, 2024 10:46pm Living Will No October 11, 2024 11:41pm Do you have a Healthcare Power of Residential Appraiser? No October 11, 2024 11:41pm Advance Directives No June 30, 2016 6:49pm Advance Directive Response Recorded Date/ Time Living Will No October 02, 2024 10:46pm Do you have a Healthcare Power of Residential Appraiser? No October 02, 2024 10:46pm Living Will No October 11, 2024 11:41pm Do you have a Healthcare Power of Residential Appraiser? No October 11, 2024 11:41pm Do you have a Healthcare Power of Residential Appraiser? No December 11, 2024 2:19pm Advance Directives No June 30, 2016 6:49pm Advance Directive Response Recorded Date/ Time Advance Directives No January 28 025 10:32am Living Will No October 02, 2024 10:46pm Do you have a Healthcare Power of Residential Appraiser? No October 02, 2024 10:46pm Living Will No October 11, 2024 11:41pm Do you have a Healthcare Power of Residential Appraiser? No October 11, 2024 11:41pm Do you have a Healthcare Power of Residential Appraiser? No December 11, 2024 2:19pm Advance Directive Response Recorded Date/ Time Advance Directives No January 28 025 10:32am Living Will No October 11, 2024 11:41pm Do you have a Healthcare Power of Residential Appraiser? No October 11, 2024 11:41pm Do you have a Healthcare Power of Residential Appraiser? No December 11, 2024 2:19pm Advance Directive Response Recorded Date/ Time Advance Directives No January 28 025 10:32am Do you have a Healthcare Power of Residential Appraiser? No December 11, 2024 2:19pm Advance Directive Response Recorded Date/ Time Advance Directives No January 28 025 10:32am Do you have a Healthcare Power of Residential Appraiser? No March 10, 2025 12:47pm Do you have a Healthcare Power of Residential Appraiser? No December 11, 2024 2:19pm Health Concerns Infection Onset Date Last Indicated Resolved Time COVID-19 Rule-Out 06/07/2022 06/07/2022 Reason for Referral Specialty Diagnoses / Procedures Referred By Nina salazar Referred To Contact Diagnoses History of IUFD Procedures CONSULT TO MATERNAL MEDI OFFICE/OUTPATIENT [facility] 60 MINUTES Jeanette Patel MD [address] [place] [address] Referral ID Status Reason Start Date Expiration Date Visits Requested Visits Authorized [id number] Authorized PCP Requested Referral Auto-Generate d Referral 01/01/2024 12/31/2024 1 1 Specialty Diagnoses / Procedures Referred By Nina salazar Referred To Contact [facility] Diagnoses Encounter for supervision of other normal in second trimester History of IUFD Procedures OBSTETRIC ULTRASOUND WHI US PREG UTERUS AFTER 1ST TRIMEST GESTATION Jeanette Patel MD [address] [place] [address] [facility] [place] [address] [place] [address] Referral ID Status Reason Start Date Expiration Date Visits Requested Visits Authorized [id number] Authorized Auto-Generat ed Referral 01/01/2024 12/31/2024 1 [...] any alcohol or drug abuse patient.[facility], IncIn the event this information is protected by the Federal Confidentiality of Alcohol and Drug Abuse Patient Records regulations: The Federal rules restrict any use of the information to criminally investigate or prosecute any alcohol or drug abuse patient.[facility], IncIn the event this information is protected by the Federal Confidentiality of Alcohol and Drug Abuse Patient Records regulations: The Federal rules restrict any use of the information to criminally investigate or prosecute any alcohol or drug abuse patient.[facility], IncIn the event this information is protected by the Federal Confidentiality of Alcohol and Drug Abuse Patient Records regulations: The Federal rules restrict any use of the information to criminally investigate or prosecute any alcohol or drug abuse patient.[facility], IncIn the event this information is protected by the Federal Confidentiality of Alcohol and Drug Abuse Patient Records regulations: The Federal rules restrict any use of the information to criminally investigate or prosecute any alcohol or drug abuse patient.[facility], IncIn the event this information is protected by the Federal Confidentiality of Alcohol and Drug Abuse Patient Records regulations: The Federal rules restrict any use of the information to criminally investigate or prosecute any alcohol or drug abuse patient.[facility], IncIn the event this information is protected by the Federal Confidentiality of Alcohol and Drug Abuse Patient Records regulations: The Federal rules restrict any use of the information to criminally investigate or prosecute any alcohol or drug abuse patient.[facility], IncIn the event this information is protected by the Federal Confidentiality of Alcohol and Drug Abuse Patient Records regulations: The Federal rules restrict any use of the information to criminally investigate or prosecute any alcohol or drug abuse patient.[facility], IncIn the event this information is protected by the Federal Confidentiality of Alcohol and Drug Abuse Patient Records regulations: The Federal rules restrict any use of the information to criminally investigate or prosecute any alcohol or drug abuse patient.[facility], IncIn the event this information is protected by the Federal Confidentiality of Alcohol and Drug Abuse Patient Records regulations: The Federal rules restrict any use of the information to criminally investigate or prosecute any alcohol or drug abuse patient.[facility], IncIn the event this information is protected by the Federal Confidentiality of Alcohol and Drug Abuse Patient Records regulations: The Federal rules restrict any use of the information to criminally investigate or prosecute any alcohol or drug abuse patient.[facility], IncIn the event this information is protected by the Federal Confidentiality of Alcohol and Drug Abuse Patient Records regulations: The Federal rules restrict any use of the information to criminally investigate or prosecute any alcohol or drug abuse patient.[facility], IncIn the event this information is protected by the Federal Confidentiality of Alcohol and Drug Abuse Patient Records regulations: The Federal rules restrict any use of the information to criminally investigate or prosecute any alcohol or drug abuse patient.[facility], IncIn the event this information is protected by the Federal Confidentiality of Alcohol and Drug Abuse Patient Records regulations: The Federal rules restrict any use of the information to criminally investigate or prosecute any alcohol or drug abuse patient.[facility], IncIn the event this information is protected by the Federal Confidentiality of Alcohol and Drug Abuse Patient Records regulations: The Federal rules restrict any use of the information to criminally investigate or prosecute any alcohol or drug abuse patient.[facility], IncIn the event this information is protected by the Federal Confidentiality of Alcohol and Drug Abuse Patient Records regulations: The Federal rules restrict any use of the information to criminally investigate or prosecute any alcohol or drug abuse patient.[facility], IncIn the event this information is protected by the Federal Confidentiality of Alcohol and Drug Abuse Patient Records regulations: The Federal rules restrict any use of the information to criminally investigate or prosecute any alcohol or drug abuse patient.[facility], IncIn the event this information is protected by the Federal Confidentiality of Alcohol and Drug Abuse Patient Records regulations: The Federal rules restrict any use of the information to criminally investigate or prosecute any alcohol or drug abuse patient.[facility], IncIn the event this information is protected by the Federal Confidentiality of Alcohol and Drug Abuse Patient Records regulations: The Federal rules restrict any use of the information to criminally investigate or prosecute any alcohol or drug abuse patient.[facility], IncIn the event this information is protected by the Federal Confidentiality of Alcohol and Drug Abuse Patient Records regulations: The Federal rules restrict any use of the information to criminally investigate or prosecute any alcohol or drug abuse patient.[facility], IncIn the event this information is protected by the Federal Confidentiality of Alcohol and Drug Abuse Patient Records regulations: The Federal rules restrict any use of the information to criminally investigate or prosecute any alcohol or drug abuse patient.[facility], IncIn the event this information is protected by the Federal Confidentiality of Alcohol and Drug Abuse Patient Records regulations: The Federal rules restrict any use of the information to criminally investigate or prosecute any alcohol or drug abuse patient.[facility], IncIn the event this information is protected by the Federal Confidentiality of Alcohol and Drug Abuse Patient Records regulations: The Federal rules restrict any use of the information to criminally investigate or prosecute any alcohol or drug abuse patient.[facility], IncIn the event this information is protected by the Federal Confidentiality of Alcohol and Drug Abuse Patient Records regulations: The Federal rules restrict any use of the information to criminally investigate or prosecute any alcohol or drug abuse patient.[facility], IncIn the event this information is protected by the Federal Confidentiality of Alcohol and Drug Abuse Patient Records regulations: The Federal rules restrict any use of the information to criminally investigate or prosecute any alcohol or drug abuse patient.[facility], IncIn the event this information is protected by the Federal Confidentiality of Alcohol and Drug Abuse Patient Records regulations: The Federal rules restrict any use of the information to criminally investigate or prosecute any alcohol or drug abuse patient.[facility], IncIn the event this information is protected by the Federal Confidentiality of Alcohol and Drug Abuse Patient Records regulations: The Federal rules restrict any use of the information to criminally investigate or prosecute any alcohol or drug abuse patient.[facility], IncIn the event this information is protected by the Federal Confidentiality of Alcohol and Drug Abuse Patient Records regulations: The Federal rules restrict any use of the information to criminally investigate or prosecute any alcohol or drug abuse patient.[facility], IncIn the event this information is protected by the Federal Confidentiality of Alcohol and Drug Abuse Patient Records regulations: The Federal rules restrict any use of the information to criminally investigate or prosecute any alcohol or drug abuse patient.[facility], IncIn the event this information is protected by the Federal Confidentiality of Alcohol and Drug Abuse Patient Records regulations: The Federal rules restrict any use of the information to criminally investigate or prosecute any alcohol or drug abuse patient.[facility], IncIn the event this information is protected by the Federal Confidentiality of Alcohol and Drug Abuse Patient Records regulations: The Federal rules restrict any use of the information to criminally investigate or prosecute any alcohol or drug abuse patient.[facility], IncIn the event this information is protected by the Federal Confidentiality of Alcohol and Drug Abuse Patient Records regulations: The Federal rules restrict any use of the information to criminally investigate or prosecute any alcohol or drug abuse patient.[facility], IncIn the event this information is protected by the Federal Confidentiality of Alcohol and Drug Abuse Patient Records regulations: The Federal rules restrict any use of the information to criminally investigate or prosecute any alcohol or drug abuse patient.[facility], IncIn the event this information is protected by the Federal Confidentiality of Alcohol and Drug Abuse Patient Records regulations: The Federal rules restrict any use of the information to criminally investigate or prosecute any alcohol or drug abuse patient.[facility], IncIn the event this information is protected by the Federal Confidentiality of Alcohol and Drug Abuse Patient Records regulations: The Federal rules restrict any use of the information to criminally investigate or prosecute any alcohol or drug abuse patient.[facility], IncIn the event this information is protected by the Federal Confidentiality of Alcohol and Drug Abuse Patient Records regulations: The Federal rules restrict any use of the information to criminally investigate or prosecute any alcohol or drug abuse patient.[facility], IncIn the event this information is protected by the Federal Confidentiality of Alcohol and Drug Abuse Patient Records regulations: The Federal rules restrict any use of the information to criminally investigate or prosecute any alcohol or drug abuse patient.[facility], IncIn the event this information is protected by the Federal Confidentiality of Alcohol and Drug Abuse Patient Records regulations: The Federal rules restrict any use of the information to criminally investigate or prosecute any alcohol or drug abuse patient.[facility], IncIn the event this information is protected by the Federal Confidentiality of Alcohol and Drug Abuse Patient Records regulations: The Federal rules restrict any use of the information to criminally investigate or prosecute any alcohol or drug abuse patient.[facility], IncIn the event this information is protected by the Federal Confidentiality of Alcohol and Drug Abuse Patient Records regulations: The Federal rules restrict any use of the information to criminally investigate or prosecute any alcohol or drug abuse patient.[facility], IncIn the event this information is protected by the Federal Confidentiality of Alcohol and Drug Abuse Patient Records regulations: The Federal rules restrict any use of the information to criminally investigate or prosecute any alcohol or drug abuse patient.[facility], IncIn the event this information is protected by the Federal Confidentiality of Alcohol and Drug Abuse Patient Records regulations: The Federal rules restrict any use of the information to criminally investigate or prosecute any alcohol or drug abuse patient.[facility], IncIn the event this information is protected by the Federal Confidentiality of Alcohol and Drug Abuse Patient Records regulations: The Federal rules restrict any use of the information to criminally investigate or prosecute any alcohol or drug abuse patient.[facility], IncIn the event this information is protected by the Federal Confidentiality of Alcohol and Drug Abuse Patient Records regulations: The Federal rules restrict any use of the information to criminally investigate or prosecute any alcohol or drug abuse patient.[facility], IncIn the event this information is protected by the Federal Confidentiality of Alcohol and Drug Abuse Patient Records regulations: The Federal rules restrict any use of the information to criminally investigate or prosecute any alcohol or drug abuse patient.[facility], IncIn the event this information is protected by the Federal Confidentiality of Alcohol and Drug Abuse Patient Records regulations: The Federal rules restrict any use of the information to criminally investigate or prosecute any alcohol or drug abuse patient.[facility], IncIn the event this information is protected by the Federal Confidentiality of Alcohol and Drug Abuse Patient Records regulations: The Federal rules restrict any use of the information to criminally investigate or prosecute any alcohol or drug abuse patient.[facility], IncIn the event this information is protected by the Federal Confidentiality of Alcohol and Drug Abuse Patient Records regulations: The Federal rules restrict any use of the information to criminally investigate or prosecute any alcohol or drug abuse patient.[facility], IncIn the event this information is protected by the Federal Confidentiality of Alcohol and Drug Abuse Patient Records regulations: The Federal rules restrict any use of the information to criminally investigate or prosecute any alcohol or drug abuse patient.[facility], IncIn the event this information is protected by the Federal Confidentiality of Alcohol and Drug Abuse Patient Records regulations: The Federal rules restrict any use of the information to criminally investigate or prosecute any alcohol or drug abuse patient.[facility], IncIn the event this information is protected by the Federal Confidentiality of Alcohol and Drug Abuse Patient Records regulations: The Federal rules restrict any use of the information to criminally investigate or prosecute any alcohol or drug abuse patient.[facility], IncIn the event this information is protected by the Federal Confidentiality of Alcohol and Drug Abuse Patient Records regulations: The Federal rules restrict any use of the information to criminally investigate or prosecute any alcohol or drug abuse patient.[facility] Reason for Visit (unrecogniz ed section and content) Reason Comments Ear Pain Bilateral ear pain a nd HERNADEZ-exposed to flu Reason Comments Initial OB Visit Reason Comments PRAF Reason Comments OB N/V Reason Onset Date Comments Care 01/01/2024 Reason Comments US Specialty Diagnoses / Procedures Referred By Nina t Referred To Contact [facility] Diagnoses 6 weeks gestation of Procedures NUCHAL TRANSLUCENCY WHI US NUCHAL TRANSLUCENCY 1ST GESTATION Sharda Valero, ADONIS.[employer] COORDINATOR [address] [place] [address] [facility] [address] [place] [address] Referral ID Status Reason Start Date Expiration Date V isits Requested Visits Authorized [id number] Closed Auto-Generate d Referral 11/13/2023 11/12/2024 1 1 Reason Comments Consult Ordered by Dr. Patel Specialty Diagnoses / Procedures Referred By Contjerry t Referred To Contact [facility] Diagnoses Encounter for supervision of other normal in second trimester History of IUFD Procedures OBSTETRIC ULTRASOUND WHI US PREG UTERUS AFTER 1ST TRIMEST GESTATION Jeanette Patel MD [address] [place] [address] [facility] [place] [address] [place] [address] Referral ID Status Reason Start Date Expiration Date V isits Requested Visits Authorized [id number] Closed Auto-Generate d Referral 01/01/2024 12/31/2024 1 1 Reason Onset Date Comments Care 02/17/2024 Reason Onset Date Comments Care 03/17/2024 Pt reported inte rmittent bilateral swelling feet. Specialty Diagnoses / Procedures Referred By Contac t Referred To Contact [facility] Diagnoses History of IUFD Procedures OBSTETRIC ULTRASOUND WHI US PREG UTERUS AFTER 1ST TRIMEST GESTATION Jeanette Patel MD [address] [place] [address] [facility] [place] [address] [place] [address] Referral ID Status Reason Start Date Expiration Date V isits Requested Visits Authorized [id number] Closed Auto-Generate d Referral 02/17/2024 02/16/2025 2 1 Reason Onset Date Comments Care 04/02/2024 Reason Onset Date Comments Care 04/14/2024 Reason Comments Opened In Error Reason Onset Date Comments Care 12/01/2023 Reason Comments OB Pain Reason Onset Date Comments Care 04/28/2024 Specialty Diagnoses / Procedures Referred By Contac t Referred To Contact [facility] Diagnoses Supervision of other high risk pregnancies, third trimester Polyhydramnios in third trimester complication, single or unspecified fetus History of IUFD Procedures OBSTETRIC ULTRASOUND WHI US PREG UTERUS AFTER 1ST TRIMEST GESTATION Jt Lugo MD [address] [place] [address] [facility] [place] [address] [place] [address] Referral ID Status Reason Start Date Expiration Date Visits Requested Visits Authorized [id number] Authorized Auto-Generat ed Referral 06/22/2024 3 3 [...] Referred By Contac t Referred To Contact [facility] Diagnoses Encounter for other general counseling or advice on contraception Procedures INSERT INTRAUTERINE DEVICE LEVONORGESTREL IU 52MG 5 YR INSERT INTRAUTERINE DEVICE Sharda Valero APRN.[employer] COORDINATOR [address] [place] [address] Phone: tel: fax:[phone] [facility] [place] [address] Referral ID Status Reason Start Date Expiration Date V isits Requested Visits Authorized [id number] Closed Auto-Generate d Referral 07/29/2024 07/29/2025 1 1 Reason Onset Date Comments Results 08/06/2024 Reason Comments 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 Initial OB CHANA saravia Reason Comments Headache Reason Onset Date Comments Care 12/31/2024 Reason Onset Date Comments Care 01/12/2025 Specialty Diagnoses / Procedures Referred By Contac t Referred To Contact [facility] Diagnoses with uncertain dates, antepartum (HCC) 13 weeks gestation of (HCC) Procedures OBSTETRIC ULTRASOUND WHI US PREG UTERUS AFTER 1ST TRIMEST GESTATION Johana Turner APRN.CNM [address] [place] [address] Phone: tel: fax: [facility] [place] [place] [address] Referral ID Status Reason Start Date Expiration Date V isits Requested Visits Authorized [id number] Closed Auto-Generate d Referral 11/18/2024 11/18/2025 1 1 Reason Onset Date Comments Care 02/09/2025 Care Teams (unrecognized sec tion and content) Team Status: Active Member Role Status Dates Dr. David Mckinney MD Family Provider Active Dr. David Mckinney MD Primary Care Provider Active Team Status: Inactive Member Role Status Dates Dr. David Mckinney MD Primary Care Provider Active Dr. Jose Alfredo Ewing MD Attending Provider Active Team Status: [...] Inactive Member Role Status Dates Dr. David Mckniney MD Primary Care Provider Active Dr. Nicolas [...] 14, 2024 End: June 14, 2024 Marcela oCnnors CNM Attending Provider Active St art: June [...] 28, 2025 End: January 28, 2025 Kale Erasmo PA, PA Attending Provider Active Sta rt: January 28, 2025 End: January 28, 2025 Team Status: Inactive Member Role/Relationship Status Dates [...] January 28, 2025 End: January 28, 2025 DARIO Patrick Attending Provider Active Sta rt: January 28, 2025 End: January 28, 2025 Team Status: Inactive Member Role/Relationship Status Dates Dr. David Mckinney MD Primary Care Provider Active Start: February 01, 2025 End: February 01, 2025 Dr. David Mckinney MD Attending Provider Active St art: February 01, 2025 End: February 01, 2025 Dr. David Mckinney MD Referring Provider Active St art: February 01, 2025 End: February 01, 2025 Team Status: Active Member Role/Relationship Status Dates Dr. David Mckinney MD Primary Care Provider Active Start: February 03, 2025 Dr. David Mckinney MD Attending Provider Active St art: February 03, 2025 Dr. David Mckinney MD Referring Provider Active St art: February 03, 2025 Team Status: Inactive Member Role/Relationship Status Dates [...] January 28, 2025 End: January 28, 2025 Team Status: Inactive Member Role/Relationship Status Dates Dr. David Mckinney MD Primary Care Provider Active Start: February 01, 2025 End: February 01, 2025 Dr. David Mckinney MD Attending Provider Active St art: February 01, 2025 End: February 01, 2025 Dr. David Mckinney MD Referring Provider Active St art: February 01, 2025 End: February 01, 2025 Team Status: Inactive Member Role/Relationship Status Dates Dr. David Mckinney MD Primary Care Provider Active Start: February 03, 2025 End: February 03, 2025 Dr. David Mckinney MD Attending Provider Active St art: February 03, 2025 End: February 03, 2025 Dr. David Mckinney MD Referring Provider Active St art: February 03, 2025 End: February 03, 2025 Team Status: Active Member Role/Relationship Status Dates Dr. David Mckinney MD Primary care physician Active Team Status: Inactive Member Role/Relationship Status Dates Dr. David Mckinney MD Primary care physician Active Start: December 11, 2024 End: December 11, 2024 Dr. Lake Mirza DO Attending physician Active Star t: December 11, 2024 End: December 11, 2024 Dr. Lake Mirza DO Emergency Department Physician Active Start: December 11, 2024 End: December 11, 2024 Team Status: Inactive Member Role/Relationship Status Dates Dr. David Mckinney MD Primary care physician Active Start: January 28, 2025 End: January 28, 2025 Dr. David Mckinney MD Referring Provider Active St art: January 28, 2025 End: January 28, 2025 Kale BISHOP, PA Attending physician Active St art: January 28, 2025 End: January 28, 2025 Team Status: Inactive Member Role/Relationship Status Dates Dr. David Mckinney MD Primary care physician Active Start: February 01, 2025 End: February 01, 2025 Dr. David Mckinney MD Attending physician Active S tart: February 01, 2025 End: February 01, 2025 Dr. David Mckinney MD Referring Provider Active St art: February 01, 2025 End: February 01, 2025 Team Status: Inactive Member Role/Relationship Status Dates Dr. David Mckinney MD Primary care physician Active Start: February 03, 2025 End: February 03, 2025 Dr. David Mckinney MD Attending physician Active S tart: February 03, 2025 End: February 03, 2025 Dr. David Mckinney MD Referring Provider Active St art: February 03, 2025 End: February 03, 2025 Team Status: Inactive Member Role/Relationship Status Dates Dr. David Mckinney MD Primary care physician Active Start: March 10, 2025 End: March 10, 2025 Dr. Mindy Jorge DO Emergency Departm ent Physician Active Start: March 10, 2025 End: March 10, 2025 INFORMATION SOURCE (unrecogn ized section and content) DATE CREATED AUTHOR 03/15/2025 [facility] DATE CREATED AUTHOR AUTHOR'S ORGANIZ ATION 04/02/2025 [facility] FOR RECORDS PERTAINING TO PATIENTS WHO ARE [...] BE BASED ON THE PRIMARY CLINICAL RECORDS. [facility] [employer] [facility]. provides no warranty or guarantee of the accuracy or completeness of information in this document.
--- NOTE | 2025-04-09 17:38 | EDS_ITS ---
HPI History of Present Illness Chief Complaint: Lower Extremity Injury Narrative Narrative: 29-year-old female approximately 36 weeks gestation presents with injury to her left ankle that she sustained prior to arrival. Her mother states that patient was going to stand up but did not realize that her left foot was asleep. She twisted her left ankle. She did not fall or hit her head or abdomen. She denies any problems with her , but complains of swelling at her left lateral ankle, and pain radiating up to her left knee as well as down to her foot. Denies other injuries. PFSH PFS Medical History (spontaneous vaginal delivery) Depression Family history of hearing loss at age younger than 7 years Gestational HTN Stillborn, normal History of placental abruption Trauma depression Anxiety Cervical myofascial strain Home Medications ?Medication ?Instructions ?Recorded ?Last Taken ?Type ojcbvwif-ays-Ql-FA 1 mg 1 tab PO DAILY pregna ncy 09/13/21 02/17/22 09:00 History tablet Allergy/AdvReac Type Severity Reaction Status Date / Time walnut (walnuts) Allergy Severe Swelling Verified 04/09/25 16:12 corn AdvReac Other Verified 04/09/25 16:12 Family History no significant family his Social History number of children: 2 Smoking Status: Former smoker alcohol intake: former 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 Worse with standing and ambulating/movement. Denies other injuries. Radiates towards knee and down foot. EXAM Physical Exam Narrative Exam Narrative: GCS 15. ABCs are intact. Cardiovascular examination reveals regular rate and rhythm. Lungs are clear to auscultation bilaterally. Abdomen is soft with gravid uterus. Focused examination of the left ankle shows mild swelling in the left lateral malleolus area. Is also in the left talofibular ligament area. Palpable dorsalis pedis pulse. No crepitance. No pain at the base of the fifth metatarsal. No palpable Achilles tendon deficit. Mild tenderness palpation left proximal fibular head. Const Vital Signs: 04/09/25 16:11 Temperature 98 F Temperature Source Oral Pulse Rate 120 H Respiratory Rate 18 Blood Pressure 135/90 H Blood Pressure Mean 105 Pulse Ox 99 Oxygen Delivery Method Room Air MDM MDM MDM Narrative Medical decision making narrative: Differential diagnosis includes but not limited to Maisonneuve fracture versus left ankle sprain versus fracture. I have low suspicion for foot fracture based on her clinical exam. She was administered Tylenol orally and has been using an ice pack. X-rays were obtained of the left knee and 2 views as to limit radiation, and protocol x-ray for left ankle ordered as well. On my individual interpretation of the x-ray of the left ankle, there is no e vidence of an acute fracture, no dislocation. I also independently interpreted the x-rays of the left knee which shows no evidence of an acute fracture or dislocation as well. I reviewed the radiology reports for both x-rays which confirms my independent interpretations. At this point in time, she was placed in an Aircast on her left ankle. She will continue Tylenol. She was instructed not to use NSAIDs given her third trimester . She will continue ice and elevation of her left ankle at home. She was told to be partial weightbearing for stability on her left ankle as she requested crutches but declined a walker. I do not feel that she needs admission or observation. Disposition is discharged home in stable condition. History & Record Review Discussion w/independent historian: Patient and Family (Mother) Radiography Diagnostic Testing: Clinical Impression(s) from Imaging Studies Ankle X-Ray 04/09/25 17:40 IMPRESSION: No acute fracture or dislocation. Reading Location: [facility] Knee X-Ray 04/09/25 17:40 IMPRESSION: No acute fracture or dislocation. Reading Location: [facility] Discharge Plan Triage Chief Complaint: Lower Extremity Injury ED Provider: Torres Abraham Dx/Rx/DC Orders Clinical Impression: Left ankle sprain, Instructions: ED Ankle Sprain (Adult) Prescriptions: No Action dhevbogu-aqa-Pc-FA 1 mg Tablet 1 tab PO DAILY Primary Care Provider: David Mckinney Referrals: David Mckinney MD [Primary Care Provider, Family Practice] - 1 Week if not improving Activity Restrictions/Additional Instructions: Partial weightbearing on your left ankle. Wear your Aircast. You may remove it for bathing or sleeping. Use your crutches for stability and ambulating. Tylenol as needed for pain. Do not take any NSAIDs. Elevate your left lower extremity when possible. Print Language: Wolof Disposition Disposition: Home, Self Care
--- NOTE | 2025-04-09 17:40 | RAD_ITS ---
PROCEDURE: LEFT KNEE 1 OR 2 VIEWS 04/09/2025 REASON FOR EXAM: PAIN TECHNIQUE: Procedure Code: RADK Modality: DX Procedure: KNEE 1 OR 2 VIEWS Laterality: Left COMPARISON: None. FINDINGS: No acute fracture or dislocation. Alignment is anatomic. Preserved joint spaces. No joint effusion. No aggressive osseous lesion. No marked soft tissue swelling or radiopaque foreign body. RAD/Knee 1 or 2 Views IMPRESSION: No acute fracture or dislocation. Reading Location: [id number]
--- NOTE | 2025-04-09 17:40 | RAD_ITS ---
PROCEDURE: LEFT ANKLE MIN 3 VIEWS 04/09/2025 REASON FOR EXAM: FALL TECHNIQUE: Procedure Code: RADANK Modality: DX Procedure: ANKLE MIN 3 VIEWS Laterality: Left COMPARISON: None. FINDINGS: No acute fracture or dislocation. Alignment is anatomic. Preserved joint spaces. No aggressive osseous lesion. No marked soft tissue swelling or radiopaque foreign body. RAD/Ankle min 3 Views IMPRESSION: No acute fracture or dislocation. Reading Location: [id number]
== END 2025-04-09 19:29 | disposition home or self-care (01) ==
PROVIDERS: Emergency Provider Emergency Medicine; PCP Family Medicine; Visit Provider Emergency Medicine
DX: O9A.213 Injury, poisoning and certain other consequences of external causes complicating pregnancy, third trimester (principal); Z87.891 Personal history of nicotine dependence; S93.402A Sprain of unspecified ligament of left ankle, initial encounter; Z3A.36 36 weeks gestation of pregnancy; X58.XXXA Exposure to other specified factors, initial encounter
CPT/HCPCS: 73560; 73610; 99284

== ENCOUNTER 2025-04-18 13:00 | Outpatient (CLI) | payer MEDICAID, SELFPAY ==
[2025-04-18] VITALS (16 sets, daily range): BP systolic 134; BP diastolic 84; PULSE 65–100; RESP 12; TEMP 36.2; O2SAT 98–100; BMI 28.0
--- NOTE | 2025-04-18 13:10 | OB.TRI.HP_ITS ---
HPI - General General Date of Service: 04/18/25 HPI Narrative SHILPA HOANG, is a 29 F @ 33.6 weeks who presents c/o contractions and pressure. pt reports no VB, LOF. pt reports ctx are intermittent since waking up today. PFSH PFS Medical History (spontaneous vaginal delivery) Depression Family history of hearing loss at age younger than 7 years Gestational HTN Stillborn, normal History of placental abruption Trauma depression Anxiety Cervical myofascial strain Home Medications Medication Instructions Recorded Last Taken Type ciutekrn-emh-Qj-FA 1 mg 1 tab PO DAILY pregna ncy 09/13/21 02/17/22 09:00 History tablet Allergy/AdvReac Type Severity Reaction Status Date / Time walnut (walnuts) Allergy Severe Swelling Verified 04/09/25 16:12 corn AdvReac Other Verified 04/09/25 16:12 Family History no significant family his Social History number of children: 2 Smoking Status: Former smoker alcohol intake: former 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 Date Name GA/Weeks Outcome Route Bth Weight Gen Labor Lgth Anesthesia Del Locatn Provider FOB 02/09/17 [place] 41 live - full term [id number] Female 18 epi dural [facility] Trey Alejandre 11/13/18 [place] 39 live - full term [id number] Female 13 ep idural [facility] Be nekos Physical Exam Const alert and oriented x3 General Appearance: cooperative HEENT normocephalic GI GI Narrative: Gravid, non tender to palpation. OB / External & Speculum: external exam normal Extremity normal to inspection Skin no rashes or lesions noted Neuro oriented x3 and CN's II-XII intact bilaterally Psych Appearance: grossly normal NST FHR Rate Baby A Baseline: 130 Variability:: Moderate Accelerations:: 15 x 15 Decelerations:: None NST Reactive:: Yes FHR Category:: Category I Uterine Activity:: uterine irritability at times Assessment & Plan (1) 33 weeks gestation of : PLAN: Plan @ 33.6 weeks with pressure/abdominal pain 1) will send urine 2) cervical exam- finger tip/thick/high - reassurance given 3) PO hydration 4) likely dc home after NST and urine 5) follow up in office as scheduled
[2025-04-18 13:32] LABS: Color, Urine Yellow (Yellow); Glucose, Dipstick Normal (Normal); Ketone-Dipstick Negative (Negative); Leukocyte Esterase-Dipstick 500 /ul (Negative); Nitrite-Dipstick Negative (Negative); Occult Blood-Urine Negative /ul (Negative); Protein-Dipstick Negative (Negative); Specific Gravity, Urine 1.005 (1.002-1.030); Urine Bilirubin Dipstick Negative (Negative)
== END 2025-04-18 14:45 | disposition home or self-care (01) ==
LOC: WPOUT 13:02 → WP 13:02
PROVIDERS: PCP Family Medicine; Referring Provider Obstetrics & Gynecology; Visit Provider Obstetrics & Gynecology
DX: O47.03 False labor before 37 completed weeks of gestation, third trimester (principal); Z3A.33 33 weeks gestation of pregnancy; Z87.891 Personal history of nicotine dependence
CPT/HCPCS: 59025; 59050; 81002; 99221; G0378

== ENCOUNTER 2025-05-02 17:03 | Emergency (ER) | payer MEDICAID, SELFPAY ==
[2025-05-02 17:04] VITALS: BP 139/99; PULSE 79; RESP 20; TEMP 36.2; O2SAT 98; BMI 29.8
[2025-05-02] MEDS: DiphenhydrAMINE 50 MG/ML Syringe IV (17:14)
[2025-05-02] MEDS: Famotidine 200 MG/20 ML MDV 40 MG in 0.9% Normal Saline (Pres. free 6 ML 300 MG IV (17:34)
--- NOTE | 2025-05-02 17:45 | EX.ED.DYSGE1 ---
HPI History of Present Illness Chief Complaint: Allergic Reaction Informant: patient and spouse/S.O. Narrative Narrative: 29-year-old female presenting to the emergency room with acute allergic reaction. 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 Just prior to arrival she ate a cookie that contained small amount of walnuts and began to experience hives. She was unable to find her EpiPen. She states she is 36 weeks . She denies vomiting or diarrhea. She denies wheezing. Patient is 36 weeks . She states that from a standpoint she is doing well. [facility] Medical History (spontaneous vaginal delivery) Depression Family history of hearing loss at age younger than 7 years Gestational HTN Stillborn, normal History of placental abruption Trauma depression Anxiety Cervical myofascial strain Home Medications ?Medication ?Instructions ?Recorded ?Last Taken ?Type [id number]-[id number]-FA 1 mg 1 tab PO DAILY 09/13/21 05/01/25 History tablet acetaminophen 500 mg tablet 1,000 mg PO TID PRN PRN pain 05/02/25 05/01/25 History albuterol sulfate 90 mcg/actuation 1 inh inhalation Q6H PRN shortness 05/02/25 Unknown History aerosol inhaler of breath or wheezing epinephrine 0.3 mg/0.3 mL 0.3 mg (0.3 mL) IM Q10M PRN PRN 05/02/25 Unknown Rx injection, auto-injector (EpiPen anaphylaxis #2 ea 2-Hero) fluticasone propionate 50 1 spray intranasal BID 05/02/25 Unknown History mcg/actuation nasal spray,suspension ondansetron 4 mg disintegrating 4 mg PO TID PRN PRN nausea/vomiting 05/02/25 05/01/25 History tablet prednisone 20 mg tablet 60 mg (3 x 20 mg) PO DAILY #9 05/02/25 Unknown Rx TABLETS Allergy/AdvReac Type Severity Reaction Status Date / Time walnut (walnuts) Allergy Severe Swelling Verified 05/02/25 17:04 corn AdvReac Other Verified 05/02/25 17:04 Social History number of children: 2 Smoking Status: Former smoker alcohol intake: former 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 ROS ROS ED Constitutional Constitutional ED: Denies chills, fever(s) or weight loss Eyes Eyes: Denies change in vision or diplopia ENT ENT ED: Denies ear pain, rhinorrhea or sore throat Cardiovascular Cardiovascular: Denies chest pain, orthopnea, palpitations or racing heartbeat Respiratory/Chest Respiratory/Chest: Denies cough, dyspnea or orthopnea Gastrointestinal Gastrointestinal: Denies abdominal pain, diarrhea, nausea or vomiting Genitourinary Genitourinary ED: Denies dysuria, hematuria or urinary frequency Musculoskeletal Musculoskeletal: Denies arthralgias or myalgias Integumentary Reports other Details: Hives ; Denies abscess or rash Neurologic Neurologic: Denies headache(s) or weakness Psychiatric Psychiatric: Denies anxiety, depression, suicidal ideation or suicidal thoughts Endocrine Endocrinology: Denies polydipsia, polyphagia or polyuria Allergic/Immunologic Allergic/Immunologic ED: Denies mouth swelling, tongue swelling or urticaria EXAM Physical Exam Const Vital Signs: 05/02/25 17:04 05/02/25 18:03 05/02/25 19:00 Temperature 97.1 F L Temperature Source Temporal Pulse Rate 79 72 74 Respiratory Rate 20 H 15 16 Blood Pressure 139/99 H 132/84 H 125/88 H Blood Pressure Mean 112 100 100 Pulse Ox 98 98 97 Oxygen Delivery Method Room Air Room Air 05/02/25 19:29 Temperature 98 F Temperature Source Pulse Rate 76 Respiratory Rate 16 Blood Pressure 129/88 H Blood Pressure Mean 101 Pulse Ox 98 Oxygen Delivery Method Positive well nourished and well developed General Appearance ED: well developed and NAD HEENT Reports normocephalic, head/scalp atraumatic and moist mucous membranes HEENT Narrative: There is no tongue lip or uvula swelling. Handling secretions normally Eyes PERRL and EOMs intact bilaterally Neck no lymphadenopathy, supple and no JVD Resp normal respiratory effort and clear to auscultation bilaterally Cardio regular rate, regular rhythm and no murmurs GI normal to inspection, nondistended, normoactive bowel sounds and non-tender GI Narrative: Gravid uterus Palpation: soft Back/Spine no CVA tenderness and normal ROM Extremity normal to inspection General Extremety ED: Negative for edema General Extremity: Negative for edema Neuro oriented x3 and CN's II-XII intact bilaterally Sensorium / Orientation: alert Motor Exam: strength 5/5 throughout Psych mental status grossly normal Mood & Affect: Negative for depressed or tearful Skin no wounds Skin Narrative: Patient has hives on her face. She has mild itching noted. MDM MDM MDM Narrative Medical decision making narrative: Differential diagnosis includes high is not allergy anaphylaxis bronchospasm hypotension vomiting diarrhea Patient received Benadryl Solu-Medrol and Pepcid. She observed in the department and is improving. She states that she has had no further development of symptoms and her symptoms are abating. We talked about taking a dose of Benadryl before bed tonight. She is to fill the prescription for the EpiPen's so that she has them available should she need them. I can also write for a short course of prednisone if she has continued symptoms tomorrow. Patient to return if worsening or concerns. History & Record Review Discussion w/independent historian: Patient and Significant other Discharge Plan Triage Chief Complaint: Allergic Reaction ED Provider: Germain Fabian Dx/Rx/DC Orders Clinical Impression: Allergic reaction, Third trimester Instructions: ED Food Allergy Prescriptions: New epinephrine [EpiPen 2-Hero] 0.3 mg/0.3 mL auto-injector 0.3 mg IM Q10M PRN PRN (Reason: anaphylaxis) Qty: 2 0RF Rx Instructions: for 2 doses prednisone 20 mg tablet 60 mg PO DAILY Qty: 9 0RF No Action pksaawlf-oqv-Yn-FA 1 mg Tablet 1 tab PO DAILY albuterol sulfate 90 mcg/actuation HFA aerosol inhaler 1 inh inhalation Q6H PRN (Reason: shortness of breath or wheezing) acetaminophen 500 mg tablet 1,000 mg PO TID PRN PRN (Reason: pain) ondansetron 4 mg tablet,disintegrating 4 mg PO TID PRN PRN (Reason: nausea/vomiting) fluticasone propionate 50 mcg/actuation spray,suspension 1 spray INTRANASAL BID Primary Care Provider: David Mckinney Referrals: David Mckinney MD [Primary Care Provider, Family Practice] - As Needed Print Language: Georgian Disposition Disposition: Home, Self Care Discharge Date/Time: 05/02/25 19:33
[2025-05-02 18:03] VITALS: BP 132/84; PULSE 72; RESP 15; O2SAT 98
[2025-05-02 19:00] VITALS: BP 125/88; PULSE 74; RESP 16; O2SAT 97
[2025-05-02 19:29] VITALS: BP 129/88; PULSE 76; RESP 16; TEMP 36.6; O2SAT 98
== END 2025-05-02 19:33 | disposition home or self-care (01) ==
PROVIDERS: Emergency Provider Emergency Medicine; PCP Family Medicine; Visit Provider Emergency Medicine
DX: O9A.213 Injury, poisoning and certain other consequences of external causes complicating pregnancy, third trimester (principal); T78.40XA Allergy, unspecified, initial encounter; Z87.891 Personal history of nicotine dependence; Z3A.36 36 weeks gestation of pregnancy
CPT/HCPCS: 96375; 99284; A4216

== ENCOUNTER 2025-05-03 02:21 | Emergency (ER) | payer MEDICAID, SELFPAY ==
[2025-05-03 02:23] VITALS: PULSE 78; RESP 18; TEMP 36.9; O2SAT 100
[2025-05-03 02:49] VITALS: BP 135/80; PULSE 86; RESP 16; TEMP 36.9; O2SAT 98
--- NOTE | 2025-05-03 02:50 | EDS_ITS ---
HPI History of Present Illness Chief Complaint: General Illness Informant: patient Narrative Narrative: Patient is a G2, P1 approximate 37 weeks . She was seen earlier today after an allergic reaction to cookie containing walnuts. She was given IV Solu-Medrol Benadryl and Pepcid and was doing better and discharged home. She states this evening she was sleeping and reports she was sleeping on her left side. She awoke with pain in the bilateral lower legs she states from the knee down. She reports that there has been no trauma or excessive activity. She denies any need to use epinephrine with an injection to either leg once she was discharged. She states has been no bouts of vomiting or diarrhea that would suggest dehydration. She also denies any vaginal bleeding or discharge. She states that she is unsure why she felt the discomfort and secondary to this comes in for evaluation. [facility] Medical History (spontaneous vaginal delivery) Depression Family history of hearing loss at age younger than 7 years Gestational HTN Stillborn, normal History of placental abruption Trauma depression Anxiety Cervical myofascial strain Home Medications Medication Instructions Recorded Last Taken Type [id number]-gem-[id number]-FA 1 mg 1 tab PO DAILY pregna ncy 09/13/21 05/01/25 History tablet acetaminophen 500 mg tablet 1,000 mg PO TID PRN PRN pa in 05/02/25 05/01/25 History albuterol sulfate 90 mcg/actuation 1 inh inhalation Q6 H PRN shortness 05/02/25 Unknown History aerosol inhaler of breath or wheezing epinephrine 0.3 mg/0.3 mL 0.3 mg (0.3 mL) IM Q10M PRN PRN 05/02/25 Unknown Rx injection, auto-injector (EpiPen anaphylaxis #2 ea 2-Hero) fluticasone propionate 50 1 spray intranasal BID 05/02 Unknown History mcg/actuation nasal spray,suspension ondansetron 4 mg disintegrating 4 mg PO TID PRN PRN na usea/vomiting 05/02/25 05/01/25 History tablet prednisone 20 mg tablet 60 mg (3 x 20 mg) PO DAILY # 9 05/02/25 Unknown Rx TABLETS Allergy/AdvReac Type Severity Reaction Status Date / Time walnut (walnuts) Allergy Severe Swelling Verified 05/03/25 02:22 corn AdvReac Other Verified 05/03/25 02:22 Social History number of children: 2 Smoking Status: Former smoker alcohol intake: former 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 ROS ROS ED Constitutional Constitutional ED: Denies chills or fever(s) Eyes Eyes: Denies change in vision ENT ENT ED: Denies sore throat Cardiovascular Cardiovascular: Denies chest pain Respiratory/Chest Respiratory/Chest: Denies cough or dyspnea Gastrointestinal Gastrointestinal: Denies abdominal pain, diarrhea, nausea or vomiting Genitourinary Genitourinary ED: Reports other Details: Negative vaginal bleeding or discharge ; Denies dysuria Musculoskeletal Musculoskeletal: Reports other Details: Positive bilateral leg pain from knee down reported ; Denies back pain Integumentary Denies Abrasions or rash Neurologic Neurologic: Denies headache(s) or paresthesias Hematologic/Lymphatic Hematologic/Lymphatic: Denies easy bleeding or easy bruising Allergic/Immunologic Allergic/Immunologic ED: Denies mouth swelling or tongue swelling EXAM Physical Exam Const Vital Signs: 05/03/25 02:23 05/03/25 02:23 05/03/25 02:49 Temperature 98.5 F 98.5 F Temperature Source Oral Pulse Rate 78 86 Respiratory Rate 18 16 Respiratory Effort Normal Respiratory Pattern Normal Blood Pressure 135/80 H Blood Pressure Mean 98 Pulse Ox 100 98 Oxygen Delivery Method Room Air Positive well nourished and well developed General Appearance ED: well developed; Negative for pallor HEENT HEENT Narrative: Normocephalic atraumatic Eyes PERRL and EOMs intact bilaterally General Eye ED: Negative for scleral icterus Neck supple Resp normal respiratory effort and clear to auscultation bilaterally Cardio regular rate and regular rhythm Rate: other Other Details: Heart is regular rate and rhythm without murmurs rubs or gallops Radial and carotid pulses are equal and symmetric GI GI Narrative: Abdomen is gravid with fundus consistent with reported gestational age Back/Spine Back/Spine Narrative: No bony deformity or step-off of the thoracic or lumbar spine no midline tenderness to palpation No saddle anesthesia. Negative straight leg raise. No clonus or Babinski. Patellar reflexes are plus 2 out of 4 bilaterally. No overlying soft tissue changes to suggest trauma or infection Extremity Extremity Narrative: Nonpitting edema to the bilateral lower extremities especially from the ankle to just below the knee that is equal and symmetric Negative Homans' sign bilaterally Bilateral patellar tendons are intact and the ligaments are stable All compartments are soft and compressible going against compartment syndrome Bilateral lower extremities are neurovascularly intact Neuro oriented x3, CN's II-XII intact bilaterally and no sensory deficits noted Sensorium / Orientation: alert Motor Exam: strength 5/5 throughout Psych mental status grossly normal Skin no rashes or lesions noted and no wounds General Skin Exam: Negative for jaundice or pallor MDM MDM MDM Narrative Medical decision making narrative: Patient arrived to the ER with stable vitals. She reported she was sleeping when she awoke with cramping sensation in both legs essentially from the knee down. There is no report or signs of trauma. She denies any recent back procedures or loss of bowel or bladder control. She denies any IV drug use. She denies any vaginal bleeding or discharge. Therefore at this time because she denies these risk factors I have low concern for cauda equina or epidural abscess or osteomyelitis or discitis. I have low concern that this is complication such as labor. Clinically pain is in both legs without asymmetric swelling or Homans' sign so I feel that even though she is at higher risk for clot being that 1 is not present at this time. However in order to rule this out as a cause of her lower leg pain a outpatient venous duplex will be ordered as I cannot perform 1 at this time of night. Chart review reveals that Protonix can cause arthralgias and myalgias and as she was given an IV dose of this there is concern that she is simply having adverse med ication reaction. Without report of significant vomiting or diarrhea I have low concern this is electrolyte abnormality and therefore no need for laboratory study. Therefore this time patient's concerns have been answered she will be evaluated as an outpatient for potential DVT but otherwise with stable vitals and physical exam showing no sign of infection or neurovascular compromise she is otherwise safe for discharge. History & Record Review Discussion w/independent historian: Patient Discharge Plan Triage Chief Complaint: General Illness ED Provider: Rizwan Cárdenas Dx/Rx/DC Orders Clinical Impression: Bilateral leg pain, Third trimester Clinical Impression: (Ruled Out): 37 weeks gestation of Instructions: ED Leg Cramps Prescriptions: No Action [id number]-FA 1 mg Tablet 1 tab PO DAILY albuterol sulfate 90 mcg/actuation HFA aerosol inhaler 1 inh inhalation Q6H PRN (Reason: shortness of breath or wheezing) acetaminophen 500 mg tablet 1,000 mg PO TID PRN PRN (Reason: pain) ondansetron 4 mg tablet,disintegrating 4 mg PO TID PRN PRN (Reason: nausea/vomiting) fluticasone propionate 50 mcg/actuation spray,suspension 1 spray INTRANASAL BID epinephrine [EpiPen 2-Hero] 0.3 mg/0.3 mL auto-injector 0.3 mg IM Q10M PRN PRN (Reason: anaphylaxis) Qty: 2 0RF Rx Instructions: for 2 doses prednisone 20 mg tablet 60 mg PO DAILY Qty: 9 0RF Other Ambulatory Orders: Venous Duplex US - Giovanni Extrem (Stat) Facility: [facility] - Location: [facility] Ordered By: Dr. Rizwan Cárdenas Primary Care Provider: David Mckinney Referrals: David Mckinney MD [Primary Care Provider, Family Practice] Activity Restrictions/Additional Instructions: Please refrain from taking Pepcid as chart review reveals that this medication can sometimes lead to sensation of muscle aches or spasms. With you receiving this medication earlier for your allergic reaction there is a high likelihood that it caused your symptoms this evening. However because you are and have a higher risk for producing clots obtain your outpatient venous duplex of your legs to rule this out. Return to the ER should you have any further concern Print Language: Nigerien Disposition Disposition: Home, Self Care Discharge Date/Time: 05/03/25 02:55
--- OUTSIDE RECORDS SUMMARY | 2025-05-03 02:54 | XMS RPT_ITS | CCD ---
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 [address] [place], [address] PROT DIPSTX Negative Normal Negative [facility] Comment on above: Order Comment: CLEAN CATCH Performed By: #### L 400.2010 #### [facility] [address] [place], [address] SP.GR. DIPSTX 1.005 Normal 1.002-1.030 [facility] Comment on above: Order Comment: CLEAN CATCH Performed By: #### L 400.2010 #### [facility] [address] [place], [place], [id number] UROBILI 1 mg/dl Abnormal Normal [facility] Comment on above: Order Comment: CLEAN CATCH Performed By: #### L 400.2010 #### [facility] [address] [place], [place], [address] Urine clarityOrdered By: Neal on 04-18-2025 Clarity (U) Sl. Cloudy Normal Clear [facility] Comment on above: Order Comment: CLEAN CATCH Performed By: #### L 400.2010 #### [facility] [address] [place], [address] Urine color determinationOrd ered By: Sarah Warner on 04-18-2025 Color (U) Yellow Normal Yellow [facility] Comment on above: Order Comment: CLEAN CATCH Performed By: #### L 400.2010 #### [facility] [address] [place], [place], [address] Urine glucose detectionOrder ed By: Sarah Warnre on 04-18-2025 Glucose Ql (U) Normal mg/dl Normal [facility] Urine leukocyte esterase det ection by dipstickOrdered By: Sarah Solomon on 04-18-2025 Leukocyte esterase Test strip Ql (U) 500 /ul High Negative [facility] Urine nitrite test by dipsti ckOrdered By: Sarah Warner on 04-18-2025 Nitrite Ql (U) Negative Normal Negative [facility] Comment on above: Order Comment: CLEAN CATCH Performed By: #### L 400.2010 #### [facility] [address] [place], [place], [address] Urine pHOrdered By: Sarah Castro on 04-18-2025 pH (U) 7.0 [pH] 5.0 - 8.0 [facility] Urine specific gravity measu rementOrdered By: Sarah UriarteSolomon on 04-18-2025 Specific gravity (U) [Rel density] 1.005 1.002-1.030 [facility] Urine urobilinogen measureme ntOrdered By: Sarah WhitejustinChakaSolomon on 04-18-2025 Urobilinogen Ql (U) 1 mg/dl High Normal [facility] Ankle min 3 Viewson 04-09-20 Ankle min 3 Views [facility] [address] [place] [address] Ankle min 3 Views MR#: [id number] Acct: [id number] Name: SHILPA HOANG Rep #: [id number] : 1995 F 29 From: Antoine York MD PCP: Dr. David Mckinney MD Status: REG ER Study: Ankle min 3 Views Date of Exam: 04/09/25 Exam# [id number] Ordering Dr: Torres Abraham MD PROCEDURE: LEFT ANKLE MIN 3 VIEWS 04/09/2025 REASON FOR EXAM: FALL TECHNIQUE: Procedure Code: RADANK Modality: DX Procedure: ANKLE MIN 3 VIEWS Laterality: Left COMPARISON: None. FINDINGS: No acute fracture or dislocation. Alignment is anatomic. Preserved joint spaces. No aggressive osseous lesion. No marked soft tissue swelling or radiopaque foreign body. RAD/Ankle min 3 Views IMPRESSION: No acute fracture or dislocation. Reading Location: [id number] CC: Dr. Torres Abraham MD; Dr. David Mckinney MD Sharepoint Application Developer: Signed Normal [facility] Emergency Department Summary on 04-09-2025 Emergency Department Summary [facility] Medical Records Department [address] [place] [address] Emergency Department Summary 04/09/25 MR#: [id number] Acct: [id number] Name: SHILPA HOANG Rep #: [id number] : 1995 29 From: Torres Abraham MD PCP: Dr. David Mckinney MD Status:REG ER Location: ED HPI History of Present Illness Chief Complaint: Lower Extremity Injury Narrative Narrative: 29-year-old female approximately 36 weeks gestation presents with injury to her left ankle that she sustained prior to arrival. Her mother states that patient was going to stand up but did not re nupur that her left foot was asleep. She twisted her left ankle. She did not fall or hit her head or abdomen. She denies any problems with her , but complains of swelling at her left lateral ankle, and pain radiating up to her left knee as well as down to her foot. Denies other injuries. [facility] Medical History (spontaneous vaginal delivery) Depression Family history of hearing loss at age younger than 7 years Gestational HTN Stillborn, normal History of placental abruption Trauma depression Anxiety Cervical myofascial strain Home Medications ???Medication ???Instructions ???Recorded ???Last Taken ???Type dczciwsr-ain-Va-FA 1 mg 1 tab PO DAILY 09/13/21 02/17/22 09:00 History tablet Allergy/AdvReac Type Severity Reaction Status Date / Time walnut (walnuts) Allergy Severe Swelling Verified 04/09/25 16:12 corn AdvReac Other Verified 04/09/25 16:12 Family History no significant family his Social History number of children: 2 Smoking Status: Former smoker alcohol intake: former 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 Worse with standing and ambulating/movement. Denies other injuries. Radiates towards knee and down foot. EXAM Physical Exam Narrative Exam Narrative: GCS 15. ABCs are intact. Cardiovascular examination reveals regular rate and rhythm. Lungs are clear to auscultation bilaterally. Abdomen is soft with gravid uterus. Focused examination of the left ankle shows mild swelling in the left lateral malleolus area. Is also in the left talofibular ligament area. Palpable dorsalis pedis pulse. No crepitance. No pain at the base of the fifth metatarsal. No palpable Achilles tendon deficit. Mild tenderness palpation left proximal fibular head. Const Vital Signs: 04/09/25 16:11 Temperature 98 F Temperature Source Oral Pulse Rate 120 H Respiratory Rate 18 Blood Pressure 135/90 H Blood Pressure Mean 105 Pulse Ox 99 Oxygen Delivery Method Room Air MDM MDM MDM Narrative Medical decision making narrative: Differential diagnosis includes but not limited to Maisonneuve fracture versus left ankle sprain versus fracture. I have low suspicion for foot fracture based on her clinical exam. She was administered Tylenol orally and has been using an ice pack. X-rays were obtained of the left knee and 2 views as to limit radiation, and protocol x-ray for left ankle ordered as well. On my individual interpretation of the x-ray of the left ankle, there is no evidence of an acute fracture, no dislocation. I also independently interpreted the x-rays of the left knee which shows no evidence of an acute fracture or dislocation as well. I reviewed the radiology reports for both x-rays which confirms my independent interpretations. At this point in time, she was placed in an Aircast on her left ankle. She will continue Tylenol. She was instructed not to use NSAIDs given her third trimester . She will continue ice and elevation of her left ankle at home. She was told to be partial weightbearing for stability on her left ankle as she requested crutches but declined a walker. I do not feel that she needs admission or observation. Disposition is discharged home in stable condition. History Record Review Discussion w/independent historian: Patient and Family (Mother) Radiography Diagnostic Testing: Clinical Impression(s) from Imaging Studies Ankle X-Ray 04/09/25 17:40 IMPRESSION: No acute fracture or dislocation. Reading Location: [facility] Knee X-Ray 04/09/25 17:40 IMPRESSION: No acute fracture or dislocation. Reading Location: [facility] Discharge Plan Triage Chief Complaint: Lower Extremity Injury ED Provider: Torres Abraham Dx/Rx/DC Orders Clinical Impression: Left ankle sprain, I (more content not included)... Normal [facility] Knee 1 or 2 Viewson 04-09-20 Knee 1 or 2 Views Imaging Services [address] [place] [id number] Knee 1 or 2 Views MR#: [id number] Acct: [id number] Name: SHILPA HOANG Rep #: [id number] : 1995 F 29 From: Antoine York MD PCP: Dr. David Mckinney MD Status: REG ER Study: Knee 1 or 2 Views Date of Exam: 04/09/25 Exam# [id number] Ordering Dr: Torres Abraham MD PROCEDURE: LEFT KNEE 1 OR 2 VIEWS 04/09/2025 REASON FOR EXAM: PAIN TECHNIQUE: Procedure Code: RADK Modality: DX Procedure: KNEE 1 OR 2 VIEWS Laterality: Left COMPARISON: None. FINDINGS: No acute fracture or dislocation. Alignment is anatomic. Preserved joint spaces. No joint effusion. No aggressive osseous lesion. No marked soft tissue swelling or radiopaque foreign body. RAD/Knee 1 or 2 Views IMPRESSION: No acute fracture or dislocation. Reading Location: [id number] CC: Dr. Torres Abraham MD; Dr. David Mckinney MD Sharepoint Application Developer: Signed [facility] ([id number]) 1995 F Date Time Provider Department 03/31/25 JEANETTE PATEL OBGYWM During your visit today, we recorded [...] tablet by mouth once daily. - PNV no.372-incc-anpzlsyljvy e 29-1 mg tab Take 1 tablet [...] sterilization [Z30.2] 03/17/2025 Encounter Status:Closed by MARGARITA HAERN on 03/31/25 Normal [facility] GESTATIONAL GLUCOSE SCREEN, 1-HOUR, 50 GRAM, NON-FASTINGon 03-22-2025 Glucose [Mass/Vol] 112 mg/dL Normal 74-134 [facility] Comment on above: Order Comment: Speci men Type: BLOOD SPECIMEN Ordering Facility: [facility] Address: [address] [place] [address] Result Comment: er [facility] Congress of Obstetricians and Gynecologists (Jamel/Amber) guidelines state a gestational diabetes mellitus positive screen is made, in women not previously diagnosed with overt diabetes, when the 1 hr plasma glucose level is equal to or above 140 mg/dL. The [facility] Cart Attendant and [facility] recommends a 135 mg/dL cutoff. Performed By: #### M AT21 #### [facility] CLIA [id number] [address] [place] [address] Emergency Department Summary on 03-10-2025 Emergency Department Summary [facility] Medical Records Department [address] [place] [address] Emergency Department Summary 03/10/25 MR#: [id number] Acct: [id number] Name: SHILPA HOANG Rep #: [id number] : 1995 29 From: Mindy Jorge DO [...] good movement from the baby. Follows with [facility] CDC ASSOCIATE. Been taking Tylenol for symptoms her last [...] Medications ???Medication ???Instructions ???Recorded ???Last Taken ???Type kvmualbb-igp-Vp-FA 1 mg 1 tab PO DAILY 09/13/21 [...] and non-diste (more content not included)... Normal [facility] Influenza virus A and B and SARS-CoV-2 (COVID-19) and Respiratory syncytial virus RNAOrdered By: Mindy Jorge on 03-10-2025 SARS-CoV-2 (COVID-19) RNA OFELIA+probe Ql (Unsp spec) [facility] SARS-CoV-2 (COVID-19) RNA OFELIA+probe Ql (Unsp spec) [facility] M100.678on 03-10-2025 M100.678 Normal Reference Ran ge = Negative GeneXpert Instrument, PCR method SARS-CoV-2 (COVID 19) Negative INFLUENZA A Negative INFLUENZA B Negative RSV PCR Negative Normal [facility] Comment on above: Performed By: #### L 501.4100, L501.0900, L501.1105, L100.0500, L501.1400, L501.4405 #### [facility] [address] [place], [place], [id number] CBC W Auto Differential pane l (Bld)on 02-10-2025 Basophils (Bld) [#/Vol] 0.05 10*3/uL Normal <0.11 [facility] Comment on above: Order Comment: Costa bergeron Type: BLOOD SPECIMEN Ordering Facility: [facility] Address: [address] [place] [address] Performed By: #### M AT21 #### [facility] CLIA [id number] [address] [place] [address] Basophils/100 WBC (Bld) 0.4 % Normal C [facility] Comment on above: Order Comment: Costa bergeron Type: BLOOD SPECIMEN Ordering Facility: [facility] Address: [address] [place] [address] Performed By: #### M AT21 #### [facility] CLIA [id number] [address] [place] [address] Differential cell count method Nom (Bld) Auto Normal [facility] Comment on above: Order Comment: Costa bergeron Type: BLOOD SPECIMEN Ordering Facility: [facility] Address: [address] [place] [address] Performed By: #### M AT21 #### [facility] CLIA [id number] [address] [place] [address] Eosinophils (Bld) [#/Vol] 0.47 10*3/uL High <0.46 [facility] Comment on above: Order Comment: Speci men Type: BLOOD SPECIMEN Ordering Facility: [facility] Address: [address] [place] [address] Performed By: #### M AT21 #### [facility] CLIA [id number] [address] [place] [address] Eosinophils/100 WBC (Bld) 4.0 % Normal [facility] Comment on above: Order Comment: Speci men Type: BLOOD SPECIMEN Ordering Facility: [facility] Address: [address] [place] [address] Performed By: #### M AT21 #### [facility] CLIA [id number] [address] [place] [address] Erythrocyte distribution width (RBC) [Ratio] 14.9 % Normal 11.5-15.0 [facility] Comment on above: Order Comment: Speci men Type: BLOOD SPECIMEN Ordering Facility: [facility] Address: [address] [place] [address] Performed By: #### M AT21 #### [facility] CLIA [id number] [address] [place] [address] Hematocrit (Bld) [Volume fraction] 34.0 % Low 36.0-46.0 [facility] Comment on above: Order Comment: Speci men Type: BLOOD SPECIMEN Ordering Facility: [facility] Address: [address] [place] [address] Performed By: #### M AT21 #### [facility] CLIA [id number] [address] [place] [address] Hemoglobin (Bld) [Mass/Vol] 10.5 g/dL Low 11.5-15.5 [facility] Comment on above: Order Comment: Speci men Type: BLOOD SPECIMEN Ordering Facility: [facility] Address: [address] [place] [address] Performed By: #### M AT21 #### [facility] CLIA [id number] [address] [place] [address] Immature granulocytes (Bld) [#/Vol] 0.12 10*3/uL High <0.10 [facility] Comment on above: Order Comment: Speci men Type: BLOOD SPECIMEN Ordering Facility: [facility] Address: [address] [place] [address] Performed By: #### M AT21 #### [facility] CLIA [id number] [address] [place] [address] Immature granulocytes/100 WBC (Bld) 1.0 % Normal [facility] Comment on above: Order Comment: Speci men Type: BLOOD SPECIMEN Ordering Facility: [facility] Address: [address] [place] [address] Performed By: #### M AT21 #### [facility] CLIA [id number] [address] [place] [address] Lymphocytes (Bld) [#/Vol] 2.78 10*3/uL Normal 1.00-4.00 [facility] Comment on above: Order Comment: Speci men Type: BLOOD SPECIMEN Ordering Facility: [facility] Address: [address] [place] [address] Performed By: #### M AT21 #### [facility] CLIA [id number] [address] [place] [address] Lymphocytes/100 WBC (Bld) 23.4 % Normal [facility] Comment on above: Order Comment: Speci men Type: BLOOD SPECIMEN Ordering Facility: [facility] Address: [address] [place] [address] Performed By: #### M AT21 #### [facility] CLIA [id number] [address] [place] [address] MCH (RBC) [Entitic mass] 27.0 pg Normal 26.0-34.0 [facility] Comment on above: Order Comment: Speci men Type: BLOOD SPECIMEN Ordering Facility: [facility] Address: [address] [place] [address] Performed By: #### M AT21 #### [facility] CLIA [id number] [address] [place] [address] MCHC (RBC) [Mass/Vol] 30.9 g/dL Normal 30.5-36.0 [facility] Comment on above: Order Comment: Speci men Type: BLOOD SPECIMEN Ordering Facility: [facility] Address: [address] [place] [address] Performed By: #### M AT21 #### [facility] CLIA [id number] [address] [place] [address] MCV (RBC) [Entitic vol] 87.4 fL Normal 80.0-100.0 [facility] Comment on above: Order Comment: Speci men Type: BLOOD SPECIMEN Ordering Facility: [facility] Address: [address] [place] [address] Performed By: #### M AT21 #### [facility] CLIA [id number] [address] [place] [address] Monocytes (Bld) [#/Vol] 0.86 10*3/uL Normal <0.87 [facility] Comment on above: Order Comment: Speci men Type: BLOOD SPECIMEN Ordering Facility: [facility] Address: [address] [place] [address] Performed By: #### M AT21 #### [facility] CLIA [id number] [address] [place] [address] Monocytes/100 WBC (Bld) 7.2 % Normal C [facility] Comment on above: Order Comment: Speci men Type: BLOOD SPECIMEN Ordering Facility: [facility] Address: [address] [place] [address] Performed By: #### M AT21 #### [facility] CLIA [id number] [address] [place] [address] Neutrophils (Bld) [#/Vol] 7.61 10*3/uL High 1.45-7.50 [facility] Comment on above: Order Comment: Speci men Type: BLOOD SPECIMEN Ordering Facility: [facility] Address: [address] [place] [address] Performed By: #### M AT21 #### [facility] CLIA [id number] [address] [place] [address] Neutrophils/100 WBC (Bld) 64.0 % Normal [facility] Comment on above: Order Comment: Speci men Type: BLOOD SPECIMEN Ordering Facility: [facility] Address: [address] [place] [address] Performed By: #### M AT21 #### [facility] CLIA [id number] [address] [place] [address] Nucleated RBC (Bld) [#/Vol] 10*3/uL Normal <0.01 [facility] Comment on above: Order Comment: Speci men Type: BLOOD SPECIMEN Ordering Facility: [facility] Address: [address] [place] [address] Performed By: #### M AT21 #### [facility] CLIA [id number] [address] [place] [address] Nucleated RBC/100 WBC (Bld) [Ratio] 0.0 /100 WBC Normal [facility] Comment on above: Order Comment: Speci men Type: BLOOD SPECIMEN Ordering Facility: [facility] Address: [address] [place] [address] Performed By: #### M AT21 #### [facility] CLIA [id number] [address] [place] [address] Platelet mean volume (Bld) [Entitic vol] 12.4 fL Normal 9.0-12.7 [facility] Comment on above: Order Comment: Speci men Type: BLOOD SPECIMEN Ordering Facility: [facility] Address: [address] [place] [address] Performed By: #### M AT21 #### [facility] CLIA [id number] [address] [place] [address] Platelets (Bld) [#/Vol] 223 10*3/uL Normal 150-400 [facility] Comment on above: Order Comment: Speci men Type: BLOOD SPECIMEN Ordering Facility: [facility] Address: [address] [place] [address] Performed By: #### M AT21 #### [facility] CLIA [id number] [address] [place] [address] RBC (Bld) [#/Vol] 3.89 10*6/uL Low 3.90-5.20 [facility] Comment on above: Order Comment: Speci men Type: BLOOD SPECIMEN Ordering Facility: [facility] Address: [address] [place] [address] Performed By: #### M AT21 #### [facility] CLIA [id number] [address] [place] [address] WBC (Bld) [#/Vol] 11.89 10*3/uL High 3.70-11.00 [facility] Comment on above: Order Comment: Speci men Type: BLOOD SPECIMEN Ordering Facility: [facility] Address: [address] [place] [address] Performed By: #### M AT21 #### [facility] CLIA [id number] [address] [place] [address] Ferritin SerPl-mCncon 2024 Ferritin [Mass/Vol] 16.4 ng/mL Normal 14.7-205.1 [facility] Comment on above: Order Comment: Speci men Type: BLOOD SPECIMEN Ordering Facility: [facility] Address: [address] [place] [address] Performed By: #### M AT21 #### [facility] CLIA [id number] [address] [place] [address] Iron and Iron binding capaci ty panelon 02-10-2025 Iron [Mass/Vol] 60 ug/dL Normal 41-186 [facility] Comment on above: Order Comment: Speci men Type: BLOOD SPECIMEN Ordering Facility: [facility] Address: [address] [place] [address] Performed By: #### M AT21 #### [facility] CLIA [id number] [address] [place] [address] Iron binding capacity [Mass/Vol] >560 High 232-386 [facility] Comment on above: Order Comment: Speci men Type: BLOOD SPECIMEN Ordering Facility: [facility] Address: [address] [place] [address] Performed By: #### M AT21 #### [facility] CLIA [id number] [address] [place] [address] Iron/TIBC [Molar ratio] <10.7 Low 15.0-57.0 C [facility] Comment on above: Order Comment: Speci men Type: BLOOD SPECIMEN Ordering Facility: [facility] Address: [address] [place] [address] Performed By: #### M AT21 #### [facility] CLIA [id number] [address] [place] [address] Reagin and Treponema pallidu m IgG and IgM [Interp]on 02-10-2025 T. pallidum IgG+IgM IA Ql (S) Non-Reactive Normal Nonreactive [facility] Comment on above: Order Comment: Speci men Type: BLOOD SPECIMEN Ordering Facility: [facility] Address: [address] [place] [address] Performed By: #### 2 276-4, 56206-6 #### [facility] CLIA [id number] [address] [place], [place] [address] [place] [address] [place] Reagin+T pallidum IgG+IgM Se rPl-Impon 02-10-2025 Reagin and Treponema pallidum IgG and IgM [Interp] Cannot exclude recent Treponemal infection if specimen collected within 7-10 days after appearance of suspect lesions or 2-3 weeks after an exposure. Clinical correlation is required. Normal [facility] Comment on above: Order Comment: Speci men Type: BLOOD SPECIMEN Ordering Facility: [facility] Address: [address] [place] [address] Performed By: #### 2 276-4, 37423-7 #### [facility] CLIA [id number] [address] [place], [place] [address] [address] [address] [place] URINE OB DIP B/Oon Glucose Ql (U) Negative Neg mg/dL [facility] Interpretation and review of laboratory results Normal [facility] Protein.monoclonal (U) [Mass/Vol] Negative Neg mg/dL [facility] Urine Cultureon 02-05-2025 [facility] Below infection leve l. Mixed Gram Positive Organisms [place] Count 1000-10,000 [facility] Mixed contaminants. Submit a new specimen if indicated. Normal [facility] Comment on above: Performed By: #### M 100.2200, L400.0001 #### [facility] [address] [place], [address] Bilirubin Test strip Ql (U)O rdered By: David Mckinney on 02-03-2025 Bilirubin Ql (U) Negative Negative [facility] Ketones Test strip Ql (U)Ord ered By: David Mckinney on 02-03-2025 Ketones Ql (U) Negative Negative [facility] Microscopic analysis of urin e for red blood cells (RBC)Ordered By: David Mckinney on 02-03-2025 Microscopic analysis of urine for red blood cells (RBC) 0-5 SEEN /hpf 0-5 [facility] Mucus LM Ql (Urine sed)Order ed By: David Mckinney on 02-03-2025 Mucus Ql (Urine sed) 0 SEEN /hpf [facility] Nitrite Test strip Ql (U)Ord ered By: David Mckinney on 02-03-2025 Nitrite Ql (U) Negative Negative [facility] Protein Test strip Ql (U)Ord ered By: David Mckinney on 02-03-2025 Protein Ql (U) Negative Negative [facility] Squamous epithelial cells de tection in urine sediment by light microscopyOrdered By: David Mckinney on 02-03-2025 Epithelial cells.squamous LM Ql (Urine sed) 0-5 SEEN /hpf 5-10 [facility] Urinalysis, Completeon 02-03 EPI,SQUAMOUS 0-5 SEEN Normal 5-10 [facility] Comment on above: Order Comment: CLEAN CATCH Performed By: #### M 100.2200, L400.0001 #### [facility] [address] [place], [address] RBC 0-5 SEEN Normal 0-5 [facility] Comment on above: Order Comment: CLEAN CATCH Performed By: #### M 100.2200, L400.0001 #### [facility] [address] [place], [address] WBC 0-5 SEEN Normal 0-5 [facility] Comment on above: Order Comment: CLEAN CATCH Performed By: #### M 100.2200, L400.0001 #### [facility] [address] [place], [address] BACTERIA 0 SEEN Normal None Seen [facility] Comment on above: Order Comment: CLEAN CATCH Performed By: #### M 100.2200, L400.0001 #### [facility] [address] [place], [address] Mucus Ql (Urine sed) 0 SEEN Normal [facility] Comment on above: Order Comment: CLEAN CATCH Performed By: #### M 100.2200, L400.0001 #### [facility] [address] [place], [address] Urine clarityOrdered By: Maya Mckinney on 02-03-2025 Clarity (U) Clear Clear [facility] Urine color determinationOrd ered By: David Mckinney on 02-03-2025 Color (U) Yellow Yellow [facility] Urine cultureOrdered By: Maya Mckinney on 02-03-2025 Bacteria identified Cx Nom (U) Positive Abnormal [facility] Bacteria identified Cx Nom (U) Positive Abnormal [facility] Urine glucose detectionOrder ed By: David Mckinney on 02-03-2025 Glucose Ql (U) Normal mg/dl Normal [facility] Urine leukocyte esterase det ection by dipstickOrdered By: David Mckinney on 02-03-2025 Leukocyte esterase Test strip Ql (U) Negative Negative [facility] Urine pHOrdered By: David aviles on 02-03-2025 pH (U) 7.0 [pH] 5.0 - 8.0 [facility] Urine sediment bacteria coun t by microscopy (number/high power field)Ordered By: David Mckinney on 02-03-2025 Bacteria LM.HPF (Urine sed) [#/Area] 0 /[HPF] None Seen [facility] Urine specific gravity measu rementOrdered By: David Mckinney on 02-03-2025 Specific gravity (U) [Rel density] 1.010 1.002-1.030 [facility] Urine urobilinogen measureme ntOrdered By: David Mckinney on 02-03-2025 Urobilinogen Ql (U) Normal mg/dl Normal [facility] White blood cell countOrdere d By: David Mckinney on 02-03-2025 White blood cell count 0-5 SEEN /hpf 0-5 [facility] Office Visit Reporton 2024 Office Visit Report [facility] [address] [place] [address] OFFICE VISIT Date of Service: 01/28/25 MR#: [id number] Acct: [id number] Patient: SHILPA HOANG Rep #: [id number] : 1995 Provider: DARIO Pizano Age/Sex: 29/F Location: [facility] Status: Signed Intake Vital Signs 12/11/24 13:47 01/28/25 10:32 Height 5 ft 5 in 5 ft 5 in Intake Visit Reasons: [employer] BAT/[employer].. ONLY DID BAT Allergies walnut (walnuts) Allergy (Severe, Verified 12/11/24 13:47) Swelling corn Adverse Reaction (Verified 12/11/24 13:47) Other Office Procedures [facility] Billing Sheet Testing Breath Alcohol in [facility]: Yes 02/03/25 1079 Date Kale BISHOP Cosigner Signature: Date (if applicable) CC: Normal [facility] Absolute lymphocyte countOrd ered By: David Mckinney on 02-01-2025 Lymphocytes Auto (Unsp spec) [#/Vol] 2.15 10*3/uL 0.83-4.51 [facility] Absolute neutrophil countOrd ered By: David Mckinney on 02-01-2025 Neutrophils (Bld) [#/Vol] 5.4 10*3/uL 2.0-7.7 [facility] Anion gap in Serum or Plasma Ordered By: David Mckinney on 02-01-2025 Anion gap [Moles/Vol] 12 mmol/L - [facility] Automated lymphocyte count a s percentage of total leukocytesOrdered By: David Mckinney on 02-01-2025 Lymphocytes/100 WBC Auto (Unsp spec) 25.6 % - [facility] BUN/creatinine ratioOrdered By: David Mckinney on 02-01-2025 Urea nitrogen/Creatinine [Mass ratio] 10.3 mg/mg 10- [facility] Basophil percentageOrdered B y: David Mckinney on 02-01-2025 Basophils/100 WBC (Bld) 0.5 % 0- [facility] Bilirubin, totalOrdered By: David Mckinney on 02-01-2025 Bilirubin [Mass/Vol] 0.17 mg/dL 0.00-1.30 [facility] CBC W/Diff, Automatedon 01-21 Absolute Lymph 2.15 X10 3/uL Normal 0.83-4.51 [facility] Comment on above: Performed By: #### L 501.4100, L501.0900, L501.1105, L100.0500, L501.1400, L501.4405 #### [facility] [address] [place], [place], [id number] Absolute Neut 5.4 X10 3/uL Normal 2.0-7.7 [facility] Comment on above: Performed By: #### L 501.4100, L501.0900, L501.1105, L100.0500, L501.1400, L501.4405 #### [facility] [address] [place], [address] Basophils/100 WBC (Bld) 0.5 % Normal 0-1 [facility] Comment on above: Performed By: #### L 501.4100, L501.0900, L501.1105, L100.0500, L501.1400, L501.4405 #### [facility] [address] [place], [address] Eosinophils/100 WBC (Bld) 5.1 % High 0-5 [facility] Comment on above: Performed By: #### L 501.4100, L501.0900, L501.1105, L100.0500, L501.1400, L501.4405 #### [facility] [address] [place], [address] Erythrocyte distribution width (RBC) [Ratio] 14.9 % High 11.6-14.6 [facility] Comment on above: Performed By: #### L 501.4100, L501.0900, L501.1105, L100.0500, L501.1400, L501.4405 #### [facility] [address] [place], [address] Hematocrit (Bld) [Volume fraction] 30.6 % Low 37-47 [facility] Comment on above: Performed By: #### L 501.4100, L501.0900, L501.1105, L100.0500, L501.1400, L501.4405 #### [facility] [address] [place], [address] Hemoglobin (Bld) [Mass/Vol] 10.0 g/dL Low 12.0-15.0 [facility] Comment on above: Performed By: #### L 501.4100, L501.0900, L501.1105, L100.0500, L501.1400, L501.4405 #### [facility] [address] [place], [address] IG% 0.600 Normal 0.0-0.9 [facility] Comment on above: Result Comment: IG% - Immature Granulocytes (promyelocytes, myelocytes and metamyelocytes) > 1% indicates that a LEFT SHIFT is Present. Performed By: #### L 501.4100, L501.0900, L501.1105, L100.0500, L501.1400, L501.4405 #### [facility] [address] [place], [address] Lymphocytes/100 WBC (Bld) 25.6 % Normal 19-41 [facility] Comment on above: Performed By: #### L 501.4100, L501.0900, L501.1105, L100.0500, L501.1400, L501.4405 #### [facility] [address] [place], [address] MCH (RBC) [Entitic mass] 28.0 pg Normal 27.0-32.0 [facility] Comment on above: Performed By: #### L 501.4100, L501.0900, L501.1105, L100.0500, L501.1400, L501.4405 #### [facility] [address] [place], [address] MCHC (RBC) [Mass/Vol] 32.7 g/dL Normal 32-36 [facility] Comment on above: Performed By: #### L 501.4100, L501.0900, L501.1105, L100.0500, L501.1400, L501.4405 #### [facility] [address] [place], [address] MCV (RBC) [Entitic vol] 85.7 fL Normal 81-99 [facility] Comment on above: Performed By: #### L 501.4100, L501.0900, L501.1105, L100.0500, L501.1400, L501.4405 #### [facility] [address] [place], [address] Monocytes/100 WBC (Bld) 4.5 % Normal 0-10 [facility] Comment on above: Performed By: #### L 501.4100, L501.0900, L501.1105, L100.0500, L501.1400, L501.4405 #### [facility] [address] [place], [address] Neutrophils/100 WBC (Bld) 63.7 % Normal 47-70 [facility] Comment on above: Performed By: #### L 501.4100, L501.0900, L501.1105, L100.0500, L501.1400, L501.4405 #### [facility] [address] [place], [address] Nucleated RBC (Bld) [#/Vol] 0 10*3/uL Normal 0-5 [facility] Comment on above: Performed By: #### L 501.4100, L501.0900, L501.1105, L100.0500, L501.1400, L501.4405 #### [facility] [address] [place], [address] Platelet mean volume (Bld) [Entitic vol] 12.6 fL High 6.2-12.0 [facility] Comment on above: Performed By: #### L 501.4100, L501.0900, L501.1105, L100.0500, L501.1400, L501.4405 #### [facility] [address] [place], [address] Platelets (Bld) [#/Vol] 180 10*3/uL Normal 150-450 [facility] Comment on above: Performed By: #### L 501.4100, L501.0900, L501.1105, L100.0500, L501.1400, L501.4405 #### [facility] [address] [place] [place], [address] RBC (Bld) [#/Vol] 3.57 10*6/uL Low 4.2-5.4 [facility] Comment on above: Performed By: #### L 501.4100, L501.0900, L501.1105, L100.0500, L501.1400, L501.4405 #### [facility] [address] [place], [address] RDW SD 46.1 fl High 35.1-43.9 [facility] Comment on above: Performed By: #### L 501.4100, L501.0900, L501.1105, L100.0500, L501.1400, L501.4405 #### [facility] [address] [place], [address] WBC (Bld) [#/Vol] 8.4 10*3/uL Normal 4.4-11.0 [facility] Comment on above: Performed By: #### L 501.4100, L501.0900, L501.1105, L100.0500, L501.1400, L501.4405 #### [facility] [address] [place] [place], [address] Carbon dioxide, total [Moles /volume] in Central venous bloodOrdered By: David Mckinney on 02-01-2025 CO2 [Moles/Vol] 19.0 mmol/L Low 21.0-32.0 [facility] Chloride assayOrdered By: Davidson Mckinney on 02-01-2025 Chloride [Moles/Vol] 106 mmol/L 98-108 [facility] Comprehensive Metabolic Prof ilon 02-01-2025 Albumin [Mass/Vol] 3.1 g/dL Low 3.5-5.0 [facility] Comment on above: Performed By: #### L 501.4100, L501.0900, L501.1105, L100.0500, L501.1400, L501.4405 #### [facility] [address] [place], [address] Albumin/Globulin [Mass ratio] 1.1 {ratio} Normal 0.9-2.4 [facility] Comment on above: Performed By: #### L 501.4100, L501.0900, L501.1105, L100.0500, L501.1400, L501.4405 #### [facility] [address] [place], [address] ALK PHOS 99 U/L Normal 35-104 [facility] Comment on above: Performed By: #### L 501.4100, L501.0900, L501.1105, L100.0500, L501.1400, L501.4405 #### [facility] [address] [place], [address] ALT [Catalytic activity/Vol] 11 U/L Normal <=34 [facility] Comment on above: Performed By: #### L 501.4100, L501.0900, L501.1105, L100.0500, L501.1400, L501.4405 #### [facility] [address] [place], [address] AST [Catalytic activity/Vol] 12 U/L Normal <=31 [facility] Comment on above: Performed By: #### L 501.4100, L501.0900, L501.1105, L100.0500, L501.1400, L501.4405 #### [facility] [address] [place], [address] Bilirubin [Mass/Vol] 0.17 mg/dL Normal 0.00-1.30 [facility] Comment on above: Performed By: #### L 501.4100, L501.0900, L501.1105, L100.0500, L501.1400, L501.4405 #### [facility] [address] [place], [address] BUN/CRE 10.3 RATIO Normal 10-20 [facility] Comment on above: Performed By: #### L 501.4100, L501.0900, L501.1105, L100.0500, L501.1400, L501.4405 #### [facility] [address] [place], [address] Calcium [Mass/Vol] 8.2 mg/dL Normal 7.6-11.0 [facility] Comment on above: Performed By: #### L 501.4100, L501.0900, L501.1105, L100.0500, L501.1400, L501.4405 #### [facility] [address] [place], [address] Chloride [Moles/Vol] 106 mmol/L Normal 98-108 [facility] Comment on above: Performed By: #### L 501.4100, L501.0900, L501.1105, L100.0500, L501.1400, L501.4405 #### [facility] [address] [place], [address] CO2 [Moles/Vol] 19.0 mmol/L Low 21.0-32.0 [facility] Comment on above: Performed By: #### L 501.4100, L501.0900, L501.1105, L100.0500, L501.1400, L501.4405 #### [facility] [address] [place], [address] Creatinine [Mass/Vol] 0.45 mg/dL Low 0.70-1.20 [facility] Comment on above: Performed By: #### L 501.4100, L501.0900, L501.1105, L100.0500, L501.1400, L501.4405 #### [facility] [address] [place], [address] GAP 12 Normal 5-15 [facility] Comment on above: Performed By: #### L 501.4100, L501.0900, L501.1105, L100.0500, L501.1400, L501.4405 #### [facility] [address] [place], [address] GFR/1.73 sq M.predicted among non-blacks MDRD (S/P/Bld) [Vol rate/Area] 134 mL/min/{1.73_m2} Normal >60 [facility] Comment on above: Result Comment: mL/m in/1.73m2 CKD-EPI Creatinine Equation (2020) Performed By: #### L 501.4100, L501.0900, L501.1105, L100.0500, L501.1400, L501.4405 #### [facility] [address] [place], [address] Globulin (S) [Mass/Vol] 2.8 g/dL Normal 2.2-4.2 [facility] Comment on above: Performed By: #### L 501.4100, L501.0900, L501.1105, L100.0500, L501.1400, L501.4405 #### [facility] [address] [place], [address] Glucose [Mass/Vol] 94 mg/dL Normal 70-99 [facility] Comment on above: Performed By: #### L 501.4100, L501.0900, L501.1105, L100.0500, L501.1400, L501.4405 #### [facility] [address] [place], [address] Potassium [Moles/Vol] 3.3 mmol/L Normal 3.3-5.1 [facility] Comment on above: Performed By: #### L 501.4100, L501.0900, L501.1105, L100.0500, L501.1400, L501.4405 #### [facility] [address] [place], [address] Sodium [Moles/Vol] 137 mmol/L Normal 133-145 [facility] Comment on above: Performed By: #### L 501.4100, L501.0900, L501.1105, L100.0500, L501.1400, L501.4405 #### [facility] [address] [place], [address] T PROT 5.9 g/dL Normal 5.9-8.4 [facility] Comment on above: Performed By: #### L 501.4100, L501.0900, L501.1105, L100.0500, L501.1400, L501.4405 #### [facility] [address] [place], [address] Urea nitrogen [Mass/Vol] 5 mg/dL Normal 4-19 [facility] Comment on above: Performed By: #### L 501.4100, L501.0900, L501.1105, L100.0500, L501.1400, L501.4405 #### [facility] [address] [place], [address] Eosinophil percentageOrdered By: David Mckinney on 02-01-2025 Eosinophils/100 WBC (Bld) 5.1 % High 0-5 [facility] Erythrocyte distribution wid th ratioOrdered By: David Mckinney on 02-01-2025 Erythrocyte distribution width (RBC) [Ratio] 14.9 % High 11.6-14.6 [facility] Erythrocyte distribution wid th standard deviationOrdered By: David Mckinney on 02-01-2025 Erythrocyte distribution width (RBC) [Ratio] 46.1 fl High 35.1-43.9 [facility] Ferritinon 02-01-2025 Ferritin [Mass/Vol] 11 ng/mL Low 22-378 [facility] Comment on above: Performed By: #### L 501.4100, L501.0900, L501.1105, L100.0500, L501.1400, L501.4405 #### [facility] [address] [place], [address] Glomerular filtration rate ( GFR) estimation/1.73 sq m using serum, plasma, or whole bOrdered By: David Mckinney on 02-01-2025 GFR/1.73 sq M.predicted among non-blacks MDRD (S/P/Bld) [Vol rate/Area] 134 mL/min/{1.73_m2} >60 [facility] Comment on above: mL/min/1.73m2 CKD-EP I Creatinine Equation (2020) Hematocrit Auto (Bld) [Volum e fraction]Ordered By: David Mckinney on 02-01-2025 Hematocrit (Bld) [Volume fraction] 30.6 % Low 37-47 [facility] Hemoglobin measurementOrdere d By: David Mckinney on 02-01-2025 Hemoglobin (Bld) [Mass/Vol] 10.0 g/dL Low 12.0-15.0 [facility] Immature granulocytes/100 WB C Auto (Bld)Ordered By: David Mckinney on 02-01-2025 Immature granulocytes/100 WBC (Bld) 0.600 % 0.0-0.9 [facility] Comment on above: IG% - Immature Granu locytes (promyelocytes, myelocytes and metamyelocytes) > 1% indicates that a LEFT SHIFT is Present. Laboratory - Chemistry and C hemistry - challengeOrdered By: David Mckinney on 02-01-2025 AST [Catalytic activity/Vol] 12 U/L <32 [facility] MCV (mean corpuscular volume ) determinationOrdered By: David Mckinney on 02-01-2025 MCV (RBC) [Entitic vol] 85.7 fL 81-99 [facility] Mean corpuscular hemoglobin (MCH) determinationOrdered By: Davdi Mckinney on 02-01-2025 MCH (RBC) [Entitic mass] 28.0 pg 27.0-32.0 [facility] Mean corpuscular hemoglobin concentration (MCHC) determinationOrdered By: David Mckinney on 02-01-2025 MCHC (RBC) [Mass/Vol] 32.7 g/dL 32-36 [facility] Mean platelet volume determi nationOrdered By: David Mckinney on 02-01-2025 Platelet mean volume (Bld) [Entitic vol] 12.6 fL High 6.2-12.0 [facility] Monocyte percentageOrdered B y: David Mckinney on 02-01-2025 Monocytes/100 WBC (Bld) 4.5 % 0-10 [facility] Neutrophil percentageOrdered By: David Mckinney on 02-01-2025 Neutrophils/100 WBC (Bld) 63.7 % 47-70 [facility] Nucleated red blood cell per centageOrdered By: David Mckinney on 02-01-2025 Nucleated RBC/100 WBC (Bld) [Ratio] 0 % 0-5 [facility] Platelet countOrdered By: Davidson Mckinney on 02-01-2025 Platelets (Bld) [#/Vol] 180 10*3/uL 150-450 [facility] Potassium measurement (mass/ volume)Ordered By: David Mckinney on 02-01-2025 Potassium (Unsp spec) [Mass/Vol] 3.3 mmol/L 3.3-5.1 [facility] RBC Auto (Bld) [#/Vol]Ordere d By: David Mckinney on 02-01-2025 RBC (Bld) [#/Vol] 3.57 10*6/uL Low 4.2-5.4 [facility] Serum creatinine measurement (mass/volume)Ordered By: David Mckinney on 02-01-2025 Creatinine [Mass/Vol] 0.45 mg/dL Low 0.70-1.20 [facility] Serum globulin measurementOr dered By: David Mckinney on 02-01-2025 Globulin (S) [Mass/Vol] 2.8 g/dL 2.2-4.2 [facility] Serum glucose measurement (m ass/volume)Ordered By: David Mckinney on 02-01-2025 Glucose [Mass/Vol] 94 mg/dL 70-99 [facility] Serum or plasma alanine rivero otransferase (ALT) measurementOrdered By: David Mckinney on 02-01-2025 ALT [Catalytic activity/Vol] 11 U/L <35 [facility] Serum or plasma albumin roopa urement (mass/volume)Ordered By: David Mckinney on 02-01-2025 Albumin [Mass/Vol] 3.1 g/dL Low 3.5-5.0 [facility] Serum or plasma albumin/glob ulin mass ratioOrdered By: David Mckinney on 02-01-2025 Albumin/Globulin [Mass ratio] 1.1 {ratio} 0.9-2.4 [facility] Serum or plasma alkaline robert sphatase measurementOrdered By: David Mckinney on 02-01-2025 ALP [Catalytic activity/Vol] 99 U/L 35-104 [facility] Serum or plasma calcium roopa urement (mass/volume)Ordered By: David Mckinney on 02-01-2025 Calcium [Mass/Vol] 8.2 mg/dL 7.6-11.0 [facility] Serum or plasma ferritin naresh surement (mass/volume)Ordered By: David Mckinney on 02-01-2025 Ferritin [Mass/Vol] 11 ng/mL Low 22-378 [facility] Serum or plasma urea nitroge n measurement (mass/volume)Ordered By: David Mckinney on 02-01-2025 Urea nitrogen [Mass/Vol] 5 mg/dL 4-19 [facility] Sodium levelOrdered By: David Mckinney on 02-01-2025 Sodium [Moles/Vol] 137 mmol/L 133-145 [facility] TSH DL <= 0.005 mIU/L QnOrde red By: David Mckinney on 02-01-2025 TSH Qn 0.340 uIU/mL 0.300-4.200 [facility] Thyroid Stim Hormone (TSH)on 02-01-2025 TSH 0.340 uIU/mL Normal 0.300-4.200 [facility] Comment on above: Performed By: #### L 501.4100, L501.0900, L501.1105, L100.0500, L501.1400, L501.4405 #### [facility] 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 - PNV no.[id number] e 29-1 mg tab Take 1 tablet [...] Status:Closed by CARLA MCKINNEY on 01/13/25 Normal [facility] Examination level ultrasound on 01-12-2025 Indication [...] by U/S 20 w + 1 d AJNE by U/S: 05/31/2025 Assigned: based on stated [...] 12 oz EFW by: Hadlock (HC-AC-FL) Extended Business Continuity Management Director 6.0 mm CM 4.1 mm 22% Nicolaides [...] normal LVOT view: normal 3-vessel view: normal 5-ozgddf-bhflcqi view: normal Heart / Thorax Situs: situs [...] Vilma Farrell M.D. MATERNAL MEDICINE [facility] Radiology Study observation (narrative) Judie easton [facility] Bacteria Ur Culton 5 Bacteria identified Cx Nom (U) ORGANISM ID: 1 10,000 -<50,000 CFU/ml Normal urogenital casimiro Normal [facility] Comment on above: Performed By: #### 6 30-4 ####[facility] [id number] [address] [place] CBC panel Auto (Bld)on 01-10 Erythrocyte distribution width (RBC) [Ratio] 14.5 % Normal 11.5-15.0 [facility] Comment on above: Order Comment: Speci men Type: BLOOD SPECIMENOrdering Facility: [facility] Address: [address] [place] [address] Performed By: #### 5 8410-2 ####[facility] [id number] [address] [place] Hematocrit (Bld) [Volume fraction] 33.7 % Low 36.0-46.0 [facility] Comment on above: Order Comment: Speci men Type: BLOOD SPECIMENOrdering Facility: [facility] Address: [address] [place] [address] Performed By: #### 5 8410-2 ####[facility] [id number] [address] [place] Hemoglobin (Bld) [Mass/Vol] 11.2 g/dL Low 11.5-15.5 [facility] Comment on above: Order Comment: Speci men Type: BLOOD SPECIMENOrdering Facility: [facility] Address: [address] [place] [address] Performed By: #### 5 8410-2 ####[facility] [id number] [place] [address] [place] MCH (RBC) [Entitic mass] 27.7 pg Normal 26.0-34.0 [facility] Comment on above: Order Comment: Speci men Type: BLOOD SPECIMENOrdering Facility: [facility] Address: [address] [place], [place] [id number] Performed By: #### 5 8410-2 ####[facility] MILLBHAVIKWNCLIA [id number] [place] [address] [place] MCHC (RBC) [Mass/Vol] 33.2 g/dL Normal 30.5-36.0 [facility] Comment on above: Order Comment: Speci men Type: BLOOD SPECIMENOrdering Facility: [facility] Address: [address] [place] [address] Performed By: #### 5 8410-2 ####[facility]ILL[facility]CL[facility] [id number] [place] [address] [place] MCV (RBC) [Entitic vol] 83.2 fL Normal 80.0-100.0 [facility] Comment on above: Order Comment: Speci men Type: BLOOD SPECIMENOrdering Facility: [facility] Address: [address] [place] [address] Performed By: #### 5 8410-2 ####[facility]LEBRENDALIA [id number] [place] [address] [place] Nucleated RBC (Bld) [#/Vol] 10*3/uL Normal <0.01 [facility] Comment on above: Order Comment: Speci men Type: BLOOD SPECIMENOrdering Facility: [facility] Address: [address] [place] [address] Performed By: #### 5 8410-2 ####[facility]LE[facility]ENDALIA [id number] [place] [address] [place] Platelet mean volume (Bld) [Entitic vol] 11.5 fL Normal 9.0-12.7 [facility] Comment on above: Order Comment: Speci men Type: BLOOD SPECIMENOrdering Facility: [facility] Address: [address] [place] [address] Performed By: #### 5 8410-2 ####[facility] [id number] [place] [address] [place] Platelets (Bld) [#/Vol] 203 10*3/uL Normal 150-400 [facility] Comment on above: Order Comment: Speci men Type: BLOOD SPECIMENOrdering Facility: [facility] Address: [address] [place] [address] Performed By: #### 5 8410-2 ####[facility] [id number] [place] [address] [place] RBC (Bld) [#/Vol] 4.05 10*6/uL Normal 3.90-5.20 [facility] Comment on above: Order Comment: Speci men Type: BLOOD SPECIMENOrdering Facility: [facility] Address: [address] [place] [address] Performed By: #### 5 8410-2 ####[facility] [id number] [place] [address] [place] WBC (Bld) [#/Vol] 11.61 10*3/uL High 3.70-11.00 [facility] Comment on above: Order Comment: Speci men Type: BLOOD SPECIMENOrdering Facility: [facility] Address: [address] [place] [address] Performed By: #### 5 8410-2 ####[facility] [id number] [place] [address] [place] Comprehensive metabolic 2000 panelon 01-10-2025 Albumin [Mass/Vol] 3.7 g/dL Low 3.9-4.9 [facility] Comment on above: Order Comment: Speci men Type: BLOOD SPECIMEN Ordering Facility: [facility] Address: [address] [place] [address] Performed By: #### 2 276-4, 85746-8 #### [facility] CLIA [id number] [address] [place] [address] [place] ALP [Catalytic activity/Vol] 97 U/L Normal 34-123 [facility] Comment on above: Order Comment: Speci men Type: BLOOD SPECIMEN Ordering Facility: [facility] Address: [address] [place] [address] Performed By: #### 2 276-4, 24398-3 #### [facility] CLIA [id number] [address] [place] [address] [place] ALT [Catalytic activity/Vol] 7 U/L Normal 7-38 [facility] Comment on above: Order Comment: Speci men Type: BLOOD SPECIMEN Ordering Facility: [facility] Address: [address] [place] [address] Performed By: #### 2 276-4, 43217-6 #### [facility] CLIA [id number] [address] [place] [address] [place] Anion gap [Moles/Vol] 14 mmol/L Normal 8-15 [facility] Comment on above: Order Comment: Speci men Type: BLOOD SPECIMEN Ordering Facility: [facility] Address: [address] [place] [address] Performed By: #### 2 276-4, 67106-4 #### [facility] CLIA [id number] [address] [place] [address] [place] AST [Catalytic activity/Vol] 9 U/L Low 13-35 [facility] Comment on above: Order Comment: Speci men Type: BLOOD SPECIMEN Ordering Facility: [facility] Address: [address] [place] [address] Performed By: #### 2 276-4, 17758-7 #### [facility] CLIA [id number] [address] [place] [address] [place] Bilirubin [Mass/Vol] 0.2 mg/dL Normal 0.2-1.3 [facility] Comment on above: Order Comment: Speci men Type: BLOOD SPECIMEN Ordering Facility: [facility] Address: [address] [place] [address] Performed By: #### 2 276-4, 55887-3 #### [facility] CLIA [id number] [address] [place] [address] [place] Calcium [Mass/Vol] 9.1 mg/dL Normal 8.5-10.2 [facility] Comment on above: Order Comment: Speci men Type: BLOOD SPECIMEN Ordering Facility: [facility] Address: [address] [place] [address] Performed By: #### 2 276-4, 06071-9 #### [facility] CLIA [id number] [address] [place] [address] [place] Chloride [Moles/Vol] 102 mmol/L Normal 98-107 [facility] Comment on above: Order Comment: Speci men Type: BLOOD SPECIMEN [facility]ing Facility: [facility] Address: [address] [place] [address] Performed By: #### 2 276-4, 87820-9 #### [facility] CLIA [id number] [address] [place] [address] [place] CO2 [Moles/Vol] 19 mmol/L Low 22-30 [facility] Comment on above: Order Comment: Speci men Type: BLOOD SPECIMEN [facility]ing Facility: [facility] Address: [address] [place] [address] Performed By: #### 2 276-4, 98859-1 #### [facility] CLIA [id number] [address] [place] [address] [place] Creatinine [Mass/Vol] 0.45 mg/dL Low 0.58-0.96 [facility] Comment on above: Order Comment: Speci men Type: BLOOD SPECIMEN Ordering Facility: [facility] Address: [address] [place] [address] Performed By: #### 2 276-4, 99048-4 #### [facility] CLIA [id number] [address] [place] [address] [place] eGFRcr SerPlBld CKD-EPI 2020 135 mL/min/1.73m??? Normal >=60 [facility] Comment on above: Order Comment: Costa bergeron Type: BLOOD SPECIMEN Ordering Facility: [facility] Address: [address] [place] [address] Result Comment: Sameera mated Glomerular Filtration Rate [...] reflect actual GFR. Performed By: #### 2 276-4, 53931-7 #### [facility] CLIA [id number] [address] [place] [address] [place] Glucose [Mass/Vol] 105 mg/dL High 74-99 [facility] Comment on above: Order Comment: Costa bergeorn Type: BLOOD SPECIMEN Ordering Facility: [facility] Address: [address] [place] [address] Result Comment: The [place] Diabetes Association (ADA) provides guidance for cutoff [...] Standards of Medical Care in Diabetes 2016, [place] [employer] Association. Diabetes Care. 2016.39(Suppl 1). Performed By: #### 2 276-4, 96726-9 #### [facility] CLIA [id number] [address] [place] [address] [place] Potassium [Moles/Vol] 4.2 mmol/L Normal 3.7-5.1 [facility] Comment on above: Order Comment: Speci men Type: BLOOD SPECIMEN Ordering Facility: [facility] Address: [address] [place] [address] Performed By: #### 2 276-4, 08161-0 #### [facility] CLIA [id number] [address] [place] [address] [place] Protein [Mass/Vol] 6.8 g/dL Normal 6.3-8.0 [facility] Comment on above: Order Comment: Speci men Type: BLOOD SPECIMEN [facility]ing Facility: [facility] Address: [address] [place] [address] Performed By: #### 2 276-4, 82129-5 #### [facility] CLIA [id number] [address] [place] [address] [place] Sodium [Moles/Vol] 135 mmol/L Low 136-144 [facility] Comment on above: Order Comment: Speci men Type: BLOOD SPECIMEN [facility]ing [facility]: [facility] Address: [address] [place] [address] Performed By: #### 2 276-4, 88107-7 #### [facility] CLIA [id number] [address] [place] [address] [place] Urea nitrogen [Mass/Vol] 9 mg/dL Normal 7-21 [facility] Comment on above: Order Comment: Speci men Type: BLOOD SPECIMEN [facility]ing [facility]: [facility] Address: [address] [place] [address] Performed By: #### 2 276-4, 75393-8 #### [facility] CLIA [id number] [address] [place] [address] [place] AONDRFNA32 PLUSon 01-10-2025 Cell-free DNA./Cell-free DNA.total Dosage of chromosome-specific cfDNA (cfDNA) [Molar fraction] Normal [facility] Comment on above: Order Comment: Speci men Type: BLOOD SPECIMEN [facility]ing Facility: [facility] Address: [address] [place] [address] Performed By: #### M AT21 #### [facility] CLIA [id number] [address] [place] [address] Chr 13+18+21+X+Y aneuploidy Dosage of chromosome-specific cfDNA Ql (cfDNA) Abnormal [facility] Comment on above: Order Comment: Speci men Type: BLOOD SPECIMEN [facility]ing Facility: [facility] Address: [address] [place] [address] Result Comment: Test not performed. Performed By: #### M AT21 #### [facility] CLIA [id number] [address] [place] [address] Citation Jose (Reference lab test) Comment Normal [facility] Comment on above: Order Comment: Speci men Type: BLOOD SPECIMEN Ordering Facility: [facility] Address: [address] [place] [address] Result Comment: 1. P sonali HAYS, et al. Jahaira Med. 2012;14(3):296-305. 2. Latha WADE, et al. Prenat Diag. 2013;33(6):591-597. 3. Bryn C, et al. Clin Chem. 2015 Apr;61(4):608-616. 4. Paul HAYS, et al. Jahaira Med. 2011;13(11):913-920. 5. ACOG/SMFM Practice Bulletin No. 226, Mar 2020. Performed By: #### M AT21 #### [facility] CLIA [id number] [address] [place] [address] Gestational age Estimated from conception date Marquez Normal [facility] Comment on above: Order Comment: Speci men Type: BLOOD SPECIMEN Ordering Facility: [facility] Address: [address] [place] [address] Performed By: #### M AT21 #### [facility] CLIA [id number] [address] [place] [address] GESTATIONALAGE AGE > OR = 9W Yes Normal [facility] Comment on above: Order Comment: Costa bergeron Type: BLOOD SPECIMEN Ordering Facility: [facility] Address: [address] [place] [address] Performed By: #### M AT21 #### [facility] CLIA [id number] [address] [place] [address] Laboratory comment Jose (Report) Comment Normal [facility] Comment on above: Order Comment: Costa bergeron Type: BLOOD SPECIMEN Ordering [facility]: [facility] Address: [address] [place] [address] Result Comment: The MaterniT(R) 21 PLUS laboratory-developed test (LDT) analyzes circulating cell-free DNA from a maternal blood sample. This test is used for screening purposes and not diagnostic. Clinical correlation is recommended. Validation data on twin pregnancies is limited and the ability of this test to detect aneuploidy in higher multiple gestations has not yet been validated. Performed By: #### M AT21 #### [facility] CLIA [id number] [address] [place] [id number] director staffing name Nom (Provider) Comment Normal [facility] Comment on above: Order Comment: Costa bergeron Type: BLOOD SPECIMEN Ordering Facility: [facility] Address: [address] [place] [address] Result Comment: Test not performed. Duplicate tests ordered. For inquiries, the physician may contact Client Services at [phone]. Comment Torito Butler MD, PhD, Director, Khush Performed By: #### M AT21 #### [facility] CLIA [id number] [address] [place] [id number] LIMITATIONS OF THE TEST Comment Normal [facility] Comment on above: Order Comment: Costa bergeron Type: BLOOD SPECIMEN Ordering Facility: [facility] Address: [address] [place] [address] Result Comment: Whil e the results of these tests are highly [...] and Fragmin(R)). Performed By: #### M AT21 #### [facility] CLIA [id number] [address] [place] [address] NEGATIVE PREDICTIVE VALUE Comment Normal [facility] Comment on above: Order Comment: Speci men Type: BLOOD SPECIMEN Ordering Facility: [facility] Address: [address] [place] [id number] Result Comment: The Negative Predictive Value (NPV) for trisomy 21, 18, and 13 is greater than 99%. The NPV for SCA and ESS cannot be calculated as SCA and ESS are only reported when an abnormality is detected. Performed By: #### M AT21 #### [facility] [id number] [address] [place] [address] PERFORMANCE CHARACTERISTICS Comment Normal [facility] Comment on above: Order Comment: Speci men Type: BLOOD SPECIMEN Ordering Facility: [facility] Address: [address] [place] [id number] Result Comment: ! Sex ! Accuracy: 99.4% [...] ! ! ! * As reported in [employer] | [employer] database nstd37 [https://www.ncbi.nlm.nih.gov/dbvar/studies/nstd37/ ] # Estimated Sensitivity. [...] gestation only. Performed By: #### M AT21 #### [facility] CLIA [id number] [address] [place] [address] Reference Lab Test Method Comment Normal [facility] Comment on above: Order Comment: Speci men Type: BLOOD SPECIMEN Ordering Facility: [facility] Address: [address] [place] [address] Result Comment: Circ ulating cell-free DNA was [...] and 22. Performed By: #### M AT21 #### [facility] CLIA [id number] [address] [place] [address] Service comment (Unsp spec) [Interp] Comment Normal [facility] Comment on above: Order Comment: Costa bergeron Type: BLOOD SPECIMEN Ordering Facility: [facility] Address: [address] [place] [address] Result Comment: [employer] is a subsidiary of [employer], using the brand [employer]. This test was developed and its performance characteristics determined by [employer]. It has not been cleared or approved by the Food and Drug Administration. This laboratory is certified under the Clinical Laboratory Improvement Amendments (CLIA) as qualified to perform high complexity clinical laboratory testing and accredited by the College of [place] [employer] (CAP). Performed By: #### M AT21 #### [facility] CLIA [id number] [address] [place] [address] Test performance information Jose (Unsp spec) Comment Normal [facility] Comment on above: Order Comment: Speci elyssa Type: BLOOD SPECIMEN Ordering Facility: [facility] Address: [address] [place] [address] Result Comment: The performance characteristics of the MaterniT(R) 21 PLUS laboratory-developed test (LDT) have been determined in a clinical validation study with women at increased risk for chromosomal aneuploidy.[1-4] Performed By: #### M AT21 #### [facility] CLIA [id number] [address] [place] [address] Prot/Creat Uron 01-10-2025 Protein/Creatinine (U) [Mass ratio] 0.14 mg/mg Normal <0.15 [facility] Comment on above: Order Comment: Gingeri elyssa Type: URINE SPECIMENOrdering Facility: [facility] Address: [address] [place] [address] Result Comment: Adul t Proteinuria Categories: <0.15 mg/mg is considered normal to mildly increased 0.15 - 0.50 mg/mg is considered moderately increased >0.50 mg/mg is considered severely increased KDIGO. (2013). KDIGO 2012 Clinical Practice Guideline for the Evaluation and Management of Chronic Kidney Disease. Official Journal of the International Society of Nephrology, 3(1), 1-150. Performed By: #### 2 890-2, UTOX2 ####[facility] [id number] [address] [address] [place] Protein/Creatinine (U) [Mass ratio]on 01-10-2025 Creatinine (U) [Mass/Vol] 79.9 mg/dL Normal 20.0-300.0 [facility] Comment on above: Order Comment: Speci men Type: URINE SPECIMENOrdering Facility: [facility] Address: [address] [place] [address] Performed By: #### 2 890-2, UTOX2 ####[facility] [id number] [place] [address] [place] Protein (U) [Mass/Vol] 11 mg/dL Normal 0-20 [facility] Comment on above: Order Comment: Speci men Type: URINE SPECIMENOrdering Facility: [facility] Address: [address] [place] [address] Performed By: #### 2 890-2, UTOX2 ####[facility] [id number] [place] [address] [place] TOXICOLOGY SCREEN, ROUTINE U RINEon 01-10-2025 Amphetamines Confirm (U) [Mass/Vol] Negative Normal Negative [facility] Comment on above: Order Comment: Speci men Type: URINE SPECIMENOrdering Facility: [facility] Address: [address] [place] [address] Result Comment: Cuto ff threshold at 1000 ng/mL. Performed By: #### 2 890-2, UTOX2 ####[facility] [id number] [place] [id number] [place] BARBITURATES, URINE Negative Normal Negative [facility] Comment on above: Order Comment: Speci men Type: URINE SPECIMENOrdering Facility: [facility] Address: [address] [place] [address] Result Comment: Cuto ff threshold at 200 ng/mL. Performed By: #### 2 890-2, UTOX2 ####[facility] [id number] [place] [address] [place] BENZODIAZEPINES, URINE Negative Normal Negative Cl [facility] Comment on above: Order Comment: Speci men Type: URINE SPECIMENOrdering Facility: [facility] Address: [address] [place] [address] Result Comment: Cuto ff threshold at 200 ng/mL. Performed By: #### 2 890-2, UTOX2 ####[facility] [id number] [place] [address] [place] Cannabinoids Screen Ql (U) Negative Normal Negative [facility] Comment on above: Order Comment: Speci men Type: URINE SPECIMENOrdering Facility: [facility] Address: [address] [place] [address] Result Comment: Cuto ff threshold at 50 ng/mL. Performed By: #### 2 890-2, UTOX2 ####[facility] [id number] [place] [address] [place] Cocaine Ql (U) Negative Normal Negative [facility] Comment on above: Order Comment: Speci men Type: URINE SPECIMENOrdering Facility: [facility] Address: [address] [place] [address] Result Comment: Cuto ff threshold at 300 ng/mL. Performed By: #### 2 890-2, UTOX2 ####[facility] [id number] [place] [address] [place] Ethanol (U) [Mass/Vol] <11 Normal <11 [facility] Comment on above: Order Comment: Speci men Type: URINE SPECIMENOrdering Facility: [facility] Address: [address] [place] [address] Performed By: #### 2 890-2, UTOX2 ####[facility] [id number] [place] [address] [place] fentaNYL Screen Ql (U) Negative Normal Negative [facility] Comment on above: Order Comment: Speci men Type: URINE SPECIMENOrdering Facility: [facility] Address: [address] [place] [address] Result Comment: Cuto ff threshold at 5 ng/mL. Performed By: #### 2 890-2, UTOX2 ####[facility] [id number] [place] [address] [place] Opiates Screen Ql (U) Negative Normal Negative [facility] Comment on above: Order Comment: Speci men Type: URINE SPECIMENOrdering Facility: [facility] Address: [address] [place] [address] Result Comment: Cuto ff threshold at 300 ng/mL. Performed By: #### 2 890-2, UTOX2 ####[facility] [id number] [place] [address] [place] oxyCODONE cutoff Screen (U) [Mass/Vol] Negative Normal Negative [facility] Comment on above: Order Comment: Speci men Type: URINE SPECIMENOrdering Facility: [facility] Address: [address] [place] [address] Result Comment: Cuto ff threshold at 100 ng/mL. Performed By: #### 2 890-2, UTOX2 ####[facility] [id number] [place] [address] [place] Phencyclidine Ql (U) Negative Normal Negative [facility] Comment on above: Order Comment: Speci men Type: URINE SPECIMENOrdering Facility: [facility] Address: [address] [place] [address] Result Comment: Cuto ff threshold at 25 ng/mL. Performed By: #### 2 890-2, UTOX2 ####[facility] [id number] [address] [place] 12 Lead EKGon 12-11-2024 12 Lead EKG [facility] [address] [place] [address] 12 Lead EKG 12/11/24 1413 MR#: [id number] Acct: [id number] Name: SHILPA HOANG Rep #: [id number] : 1995 28 From: Josh Dudley MD [...] Normal ECG Confirmed by Josh Dudley ([id number]), editor & co founder IDA OSPINA ([id number]) on 12/14/2024 11:47:52 AM Referred By: UG Confirmed By: Josh Dudley 12/14/24 1147 Date Josh Dudley MD CC: Dr. David Mckinney MD; Dr. Lake Mirza DO Signed Normal [facility] Absolute lymphocyte countOrd ered By: Lake Mirza on 12-11-2024 Lymphocytes Auto (Unsp spec) [#/Vol] 1.53 10*3/uL 0.83-4.51 [facility] Absolute neutrophil countOrd ered By: Lake Mirza on 12-11-2024 Neutrophils (Bld) [#/Vol] 5.2 10*3/uL 2.0-7.7 [facility] Anion gap in Serum or Plasma Ordered By: Lake Mirza on 12-11-2024 Anion gap [Moles/Vol] 12 mmol/L 5-15 [facility] Automated lymphocyte count a s percentage of total leukocytesOrdered By: Lake Mirza on 12-11-2024 Lymphocytes/100 WBC Auto (Unsp spec) 20.5 % - [facility] BUN/creatinine ratioOrdered By: Lake Mirza on 12-11-2024 Urea nitrogen/Creatinine [Mass ratio] 12.0 mg/mg 10-20 [facility] Basophil percentageOrdered B y: [place] Mirza on 12-11-2024 Basophils/100 WBC (Bld) 0.5 % 0-1 [facility] Bilirubin Test strip Ql (U)O rdered By: Lake Mirza on 12-11-2024 Bilirubin Ql (U) Negative Negative [facility] Bilirubin, totalOrdered By: Lake Mirza on 12-11-2024 Bilirubin [Mass/Vol] 0.24 mg/dL 0.00-1.30 [facility] CBC W/Diff, Automatedon 11-22 Absolute Lymph 1.53 X10 3/uL Normal 0.83-4.51 [facility] Comment on above: Performed By: #### L 501.4100, L501.0900, L501.1105, L100.0500, L501.1400, L501.4405 #### [facility] [address] [place], [address] Absolute Neut 5.2 X10 3/uL Normal 2.0-7.7 [facility] Comment on above: Performed By: #### L 501.4100, L501.0900, L501.1105, L100.0500, L501.1400, L501.4405 #### [facility] [address] [place], [address] Basophils/100 WBC (Bld) 0.5 % Normal 0-1 [facility] Comment on above: Performed By: #### L 501.4100, L501.0900, L501.1105, L100.0500, L501.1400, L501.4405 #### [facility] [address] [place], [address] Eosinophils/100 WBC (Bld) 4.7 % Normal 0-5 [facility] Comment on above: Performed By: #### L 501.4100, L501.0900, L501.1105, L100.0500, L501.1400, L501.4405 #### [facility] [address] [place], [address] Erythrocyte distribution width (RBC) [Ratio] 14.6 % Normal 11.6-14.6 [facility] Comment on above: Performed By: #### L 501.4100, L501.0900, L501.1105, L100.0500, L501.1400, L501.4405 #### [facility] [address] [place], [address] Hematocrit (Bld) [Volume fraction] 34.1 % Low 37-47 [facility] Comment on above: Performed By: #### L 501.4100, L501.0900, L501.1105, L100.0500, L501.1400, L501.4405 #### [facility] [address] [place], [address] Hemoglobin (Bld) [Mass/Vol] 11.0 g/dL Low 12.0-15.0 [facility] Comment on above: Performed By: #### L 501.4100, L501.0900, L501.1105, L100.0500, L501.1400, L501.4405 #### [facility] [address] [place], [address] IG% 0.400 Normal 0.0-0.9 [facility] Comment on above: Result Comment: IG% - Immature Granulocytes (promyelocytes, myelocytes and metamyelocytes) > 1% indicates that a LEFT SHIFT is Present. Performed By: #### L 501.4100, L501.0900, L501.1105, L100.0500, L501.1400, L501.4405 #### [facility] [address] [place], [address] Lymphocytes/100 WBC (Bld) 20.5 % Normal 19-41 [facility] Comment on above: Performed By: #### L 501.4100, L501.0900, L501.1105, L100.0500, L501.1400, L501.4405 #### [facility] [address] [place], [address] MCH (RBC) [Entitic mass] 27.6 pg Normal 27.0-32.0 [facility] Comment on above: Performed By: #### L 501.4100, L501.0900, L501.1105, L100.0500, L501.1400, L501.4405 #### [facility] [address] [place], [address] MCHC (RBC) [Mass/Vol] 32.3 g/dL Normal 32-36 [facility] Comment on above: Performed By: #### L 501.4100, L501.0900, L501.1105, L100.0500, L501.1400, L501.4405 #### [facility] [address] [place], [address] MCV (RBC) [Entitic vol] 85.7 fL Normal 81-99 [facility] Comment on above: Performed By: #### L 501.4100, L501.0900, L501.1105, L100.0500, L501.1400, L501.4405 #### [facility] [address] [place], [address] Monocytes/100 WBC (Bld) 4.6 % Normal 0-10 [facility] Comment on above: Performed By: #### L 501.4100, L501.0900, L501.1105, L100.0500, L501.1400, L501.4405 #### [facility] [address] [place], [address] Neutrophils/100 WBC (Bld) 69.3 % Normal 47-70 [facility] Comment on above: Performed By: #### L 501.4100, L501.0900, L501.1105, L100.0500, L501.1400, L501.4405 #### [facility] [address] [place], [address] Nucleated RBC (Bld) [#/Vol] 0 10*3/uL Normal 0-5 [facility] Comment on above: Performed By: #### L 501.4100, L501.0900, L501.1105, L100.0500, L501.1400, L501.4405 #### [facility] [address] [place], [address] Platelet mean volume (Bld) [Entitic vol] 12.0 fL Normal 6.2-12.0 [facility] Comment on above: Performed By: #### L 501.4100, L501.0900, L501.1105, L100.0500, L501.1400, L501.4405 #### [facility] [address] [place], [address] Platelets (Bld) [#/Vol] 176 10*3/uL Normal 150-450 [facility] Comment on above: Performed By: #### L 501.4100, L501.0900, L501.1105, L100.0500, L501.1400, L501.4405 #### [facility] [address] [place], [address] RBC (Bld) [#/Vol] 3.98 10*6/uL Low 4.2-5.4 [facility] Comment on above: Performed By: #### L 501.4100, L501.0900, L501.1105, L100.0500, L501.1400, L501.4405 #### [facility] [address] [place], [address] RDW SD 45.6 fl High 35.1-43.9 [facility] Comment on above: Performed By: #### L 501.4100, L501.0900, L501.1105, L100.0500, L501.1400, L501.4405 #### [facility] [address] [place], [address] WBC (Bld) [#/Vol] 7.5 10*3/uL Normal 4.4-11.0 [facility] Comment on above: Performed By: #### L 501.4100, L501.0900, L501.1105, L100.0500, L501.1400, L501.4405 #### [facility] [address] [place], [address] Carbon dioxide, total [Moles /volume] in Central venous bloodOrdered By: Lake Mirza on 12-11-2024 CO2 [Moles/Vol] 18.6 mmol/L Low 21.0-32.0 [facility] Chloride assayOrdered By: Bhavik Mirza on 12-11-2024 Chloride [Moles/Vol] 107 mmol/L 98-108 [facility] Comprehensive Metabolic Prof ilon 12-11-2024 Albumin [Mass/Vol] 3.3 g/dL Low 3.5-5.0 [facility] Comment on above: Performed By: #### L 501.4100, L501.0900, L501.1105, L100.0500, L501.1400, L501.4405 #### [facility] [address] [place], [address] Albumin/Globulin [Mass ratio] 1.1 {ratio} Normal 0.9-2.4 [facility] Comment on above: Performed By: #### L 501.4100, L501.0900, L501.1105, L100.0500, L501.1400, L501.4405 #### [facility] [address] [place], [address] ALK PHOS 85 U/L Normal 35-104 [facility] Comment on above: Performed By: #### L 501.4100, L501.0900, L501.1105, L100.0500, L501.1400, L501.4405 #### [facility] [address] [place], [address] ALT [Catalytic activity/Vol] 16 U/L Normal <=34 [facility] Comment on above: Performed By: #### L 501.4100, L501.0900, L501.1105, L100.0500, L501.1400, L501.4405 #### [facility] [address] [place], [address] AST [Catalytic activity/Vol] 17 U/L Normal <=31 [facility] Comment on above: Performed By: #### L 501.4100, L501.0900, L501.1105, L100.0500, L501.1400, L501.4405 #### [facility] [address] [place], [address] Bilirubin [Mass/Vol] 0.24 mg/dL Normal 0.00-1.30 [facility] Comment on above: Performed By: #### L 501.4100, L501.0900, L501.1105, L100.0500, L501.1400, L501.4405 #### [facility] [address] [place], [address] BUN/CRE 12.0 RATIO Normal 10-20 [facility] Comment on above: Performed By: #### L 501.4100, L501.0900, L501.1105, L100.0500, L501.1400, L501.4405 #### [facility] [address] [place], [address] Calcium [Mass/Vol] 8.5 mg/dL Normal 7.6-11.0 [facility] Comment on above: Performed By: #### L 501.4100, L501.0900, L501.1105, L100.0500, L501.1400, L501.4405 #### [facility] [address] [place], [address] Chloride [Moles/Vol] 107 mmol/L Normal 98-108 [facility] Comment on above: Performed By: #### L 501.4100, L501.0900, L501.1105, L100.0500, L501.1400, L501.4405 #### [facility] [address] [place], [address] CO2 [Moles/Vol] 18.6 mmol/L Low 21.0-32.0 [facility] Comment on above: Performed By: #### L 501.4100, L501.0900, L501.1105, L100.0500, L501.1400, L501.4405 #### [facility] [address] [place], [address] Creatinine [Mass/Vol] 0.53 mg/dL Low 0.70-1.20 [facility] Comment on above: Performed By: #### L 501.4100, L501.0900, L501.1105, L100.0500, L501.1400, L501.4405 #### [facility] [address] [place], [address] ECRCL 164.63 ml/min Normal 50-250 [facility] Comment on above: Performed By: #### L 501.4100, L501.0900, L501.1105, L100.0500, L501.1400, L501.4405 #### [facility] [address] [place], [address] GAP 12 Normal 5-15 [facility] Comment on above: Performed By: #### L 501.4100, L501.0900, L501.1105, L100.0500, L501.1400, L501.4405 #### [facility] [address] [place] [place], [address] GFR/1.73 sq M.predicted among non-blacks MDRD (S/P/Bld) [Vol rate/Area] 130 mL/min/{1.73_m2} Normal >60 [facility] Comment on above: Result Comment: mL/m in/1.73m2 CKD-EPI Creatinine Equation (2020) Performed By: #### L 501.4100, L501.0900, L501.1105, L100.0500, L501.1400, L501.4405 #### [facility] [address] [place], [address] Globulin (S) [Mass/Vol] 2.9 g/dL Normal 2.2-4.2 [facility] Comment on above: Performed By: #### L 501.4100, L501.0900, L501.1105, L100.0500, L501.1400, L501.4405 #### [facility] [address] [place], [address] Glucose [Mass/Vol] 125 mg/dL High 70-99 [facility] Comment on above: Performed By: #### L 501.4100, L501.0900, L501.1105, L100.0500, L501.1400, L501.4405 #### [facility] [address] [place], [address] Potassium [Moles/Vol] 3.5 mmol/L Normal 3.3-5.1 [facility] Comment on above: Performed By: #### L 501.4100, L501.0900, L501.1105, L100.0500, L501.1400, L501.4405 #### [facility] [address] [place], [address] Sodium [Moles/Vol] 137 mmol/L Normal 133-145 [facility] Comment on above: Performed By: #### L 501.4100, L501.0900, L501.1105, L100.0500, L501.1400, L501.4405 #### [facility] [address] [place], [address] T PROT 6.2 g/dL Normal 5.9-8.4 [facility] Comment on above: Performed By: #### L 501.4100, L501.0900, L501.1105, L100.0500, L501.1400, L501.4405 #### [facility] [address] [place], [address] Urea nitrogen [Mass/Vol] 6 mg/dL Normal 4-19 [facility] Comment on above: Performed By: #### L 501.4100, L501.0900, L501.1105, L100.0500, L501.1400, L501.4405 #### [facility] [address] [place], [address] Emergency Department Summary on 12-11-2024 Emergency Department Summary [facility] Medical Records Department [address] [place] [address] Emergency Department Summary 12/11/24 MR#: [id number] Acct: [id number] Name: SHILPA HOANG Rep #: [id number] : 1995 28 From: [place] PCP: Dr. David Mckinney MD Status:DEP ER Location: ED HPI HPI - GI History of Present Illness Chief Complaint: Abd Pain Informant: patient Narrative Narrative: G5, P4 15-16 with gestation followed by [facility]. Awake and abdominal discomfort this morning [...] Medications ???Medication ???Instructions ???Recorded ???Last Taken ???Type hanfbmyk-soy-Zw-FA 1 mg 1 tab PO DAILY 09/13/21 [...] results. 22 (more content not included)... Normal [facility] Eosinophil percentageOrdered By: [place] Mirza on 12-11-2024 Eosinophils/100 WBC (Bld) 4.7 % 0-5 [facility] Erythrocyte distribution wid th ratioOrdered By: [place] Mirza on 12-11-2024 Erythrocyte distribution width (RBC) [Ratio] 14.6 % 11.6-14.6 [facility] Erythrocyte distribution wid th standard deviationOrdered By: [place] Mirza on 12-11-2024 Erythrocyte distribution width (RBC) [Ratio] 45.6 fl High 35.1-43.9 [facility] Glomerular filtration rate ( GFR) estimation/1.73 sq m using serum, plasma, or whole bOrdered By: [place] Mirza on 12-11-2024 GFR/1.73 sq M.predicted among non-blacks MDRD (S/P/Bld) [Vol rate/Area] 130 mL/min/{1.73_m2} >60 [facility] Comment on above: mL/min/1.73m2 CKD-EP I Creatinine Equation (2020) Hematocrit Auto (Bld) [Volum e fraction]Ordered By: [place] Mirza on 12-11-2024 Hematocrit (Bld) [Volume fraction] 34.1 % Low 37-47 [facility] Hemoglobin measurementOrdere d By: [place] Mirza on 12-11-2024 Hemoglobin (Bld) [Mass/Vol] 11.0 g/dL Low 12.0-15.0 [facility] Immature granulocytes/100 WB C Auto (Bld)Ordered By: [place] Mirza on 12-11-2024 Immature granulocytes/100 WBC (Bld) 0.400 % 0.0-0.9 [facility] Comment on above: IG% - Immature Granu locytes (promyelocytes, myelocytes and metamyelocytes) > 1% indicates that a LEFT SHIFT is Present. Ketones Test strip Ql (U)Ord ered By: [place] Mirza on 12-11-2024 Ketones Ql (U) Negative Negative [facility] - Chemistry and C hemistry - challengeOrdered By: Lake Mirza on 12-11-2024 AST [Catalytic activity/Vol] 17 U/L <32 [facility] Lipaseon 12-11-2024 Lipase [Catalytic activity/Vol] 22 U/L Normal 13-75 [facility] Comment on above: Result Comment: Raj redman note: LIPASE revised reference range effective 22. New Lipase methodology. Expected to produce lower values than the previous assay method. NEW Reference Range: 13 - 75 U/L Performed By: #### L 501.4100, L501.0900, L501.1105, L100.0500, L501.1400, L501.4405 #### [facility] [address] [place], [address] Lipase measurementOrdered By : [place] Mirza on 12-11-2024 Lipase [Catalytic activity/Vol] 22 U/L 13-75 [facility] Comment on above: Please note:LIPASE r evised reference range effective 22. New Lipase methodology. Expected to produce lower values than the previous assay method. NEW Reference Range: 13 - 75 U/L MCV (mean corpuscular volume ) determinationOrdered By: [place] Mirza on 12-11-2024 MCV (RBC) [Entitic vol] 85.7 fL 81-99 [facility] Mean corpuscular hemoglobin (MCH) determinationOrdered By: [place] Mirza on 12-11-2024 MCH (RBC) [Entitic mass] 27.6 pg 27.0-32.0 [facility] Mean corpuscular hemoglobin concentration (MCHC) determinationOrdered By: Lake Mirza on 12-11-2024 MCHC (RBC) [Mass/Vol] 32.3 g/dL 32-36 [facility] Mean platelet volume determi nationOrdered By: [place] Mirza on 12-11-2024 Platelet mean volume (Bld) [Entitic vol] 12.0 fL 6.2-12.0 [facility] Microscopic analysis of urin e for red blood cells (RBC)Ordered By: [place] Mirza on 12-11-2024 Microscopic analysis of urine for red blood cells (RBC) 0-5 SEEN /hpf 0-5 [facility] Monocyte percentageOrdered B y: [place] Mirza on 12-11-2024 Monocytes/100 WBC (Bld) 4.6 % 0-10 [facility] Mucus LM Ql (Urine sed)Order ed By: [place] Mirza on 12-11-2024 Mucus Ql (Urine sed) 0 SEEN /hpf [facility] Neutrophil percentageOrdered By: Lake Mirza on 12-11-2024 Neutrophils/100 WBC (Bld) 69.3 % 47-70 [facility] Nitrite Test strip Ql (U)Ord ered By: [place]za on 12-11-2024 Nitrite Ql (U) Negative Negative [facility] Nucleated red blood cell per centageOrdered By: [place] Mirza on 12-11-2024 Nucleated RBC/100 WBC (Bld) [Ratio] 0 % 0-5 [facility] Platelet countOrdered By: Bhavik Mirza on 12-11-2024 Platelets (Bld) [#/Vol] 176 10*3/uL 150-450 [facility] Potassium measurement (mass/ volume)Ordered By: [place] Mirza on 12-11-2024 Potassium (Unsp spec) [Mass/Vol] 3.5 mmol/L 3.3-5.1 [facility] Protein Test strip Ql (U)Ord ered By: [place]za on 12-11-2024 Protein Ql (U) 15 mg/dl High Negative [facility] RBC Auto (Bld) [#/Vol]Ordere d By: [place] Mirza on 12-11-2024 RBC (Bld) [#/Vol] 3.98 10*6/uL Low 4.2-5.4 [facility] Serum creatinine measurement (mass/volume)Ordered By: [place] Mirza on 12-11-2024 Creatinine [Mass/Vol] 0.53 mg/dL Low 0.70-1.20 [facility] Serum globulin measurementOr dered By: [place] Mirza on 12-11-2024 Globulin (S) [Mass/Vol] 2.9 g/dL 2.2-4.2 [facility] Serum glucose measurement (m ass/volume)Ordered By: [place] Mirza on 12-11-2024 Glucose [Mass/Vol] 125 mg/dL High 70-99 [facility] Serum or plasma alanine rivero otransferase (ALT) measurementOrdered By: [place] Mirza on 12-11-2024 ALT [Catalytic activity/Vol] 16 U/L <35 [facility] Serum or plasma albumin roopa urement (mass/volume)Ordered By: [place] Mirza on 12-11-2024 Albumin [Mass/Vol] 3.3 g/dL Low 3.5-5.0 [facility] Serum or plasma albumin/glob ulin mass ratioOrdered By: [place] Mirza on 12-11-2024 Albumin/Globulin [Mass ratio] 1.1 {ratio} 0.9-2.4 [facility] Serum or plasma alkaline robert sphatase measurementOrdered By: Lake Mirza on 12-11-2024 ALP [Catalytic activity/Vol] 85 U/L 35-104 [facility] Serum or plasma calcium roopa urement (mass/volume)Ordered By: [place] Mirza on 12-11-2024 Calcium [Mass/Vol] 8.5 mg/dL 7.6-11.0 [facility] Serum or plasma urea nitroge n measurement (mass/volume)Ordered By: [place] Mirza on 12-11-2024 Urea nitrogen [Mass/Vol] 6 mg/dL 4-19 [facility] Sodium levelOrdered By: Lake Le on 12-11-2024 Sodium [Moles/Vol] 137 mmol/L 133-145 [facility] Squamous epithelial cells de tection in urine sediment by light microscopyOrdered By: Lake Mirza on 12-11-2024 Epithelial cells.squamous LM Ql (Urine sed) 0-5 SEEN /hpf 5- [facility] Total proteinOrdered By: Danny Mirza on 12-11-2024 Protein [Mass/Vol] 6.2 g/dL 5.9-8.4 [facility] Urinalysis, Completeon 12-11 BACTERIA 2+ /hpf Normal None Seen [facility] Comment on above: Order Comment: CLEAN CATCH Performed By: #### L 501.4100, L501.0900, L501.1105, L100.0500, L501.1400, L501.4405 #### [facility] [address] [place], [address] EPI,SQUAMOUS 0-5 SEEN Normal 5-10 [facility] Comment on above: Order Comment: CLEAN CATCH Performed By: #### L 501.4100, L501.0900, L501.1105, L100.0500, L501.1400, L501.4405 #### [facility] [address] [place], [address] RBC 0-5 SEEN Normal 0-5 [facility] Comment on above: Order Comment: CLEAN CATCH Performed By: #### L 501.4100, L501.0900, L501.1105, L100.0500, L501.1400, L501.4405 #### [facility] [address] [place], [address] WBC 10-25 SEEN Normal 0-5 [facility] Comment on above: Order Comment: CLEAN CATCH Performed By: #### L 501.4100, L501.0900, L501.1105, L100.0500, L501.1400, L501.4405 #### [facility] [address] [place], [address] Mucus Ql (Urine sed) 0 SEEN Normal [facility] Comment on above: Order Comment: CLEAN CATCH Performed By: #### L 501.4100, L501.0900, L501.1105, L100.0500, L501.1400, L501.4405 #### [facility] [address] [place], [place], [address] Urine clarityOrdered By: Danny Mirza on 12-11-2024 Clarity (U) Cloudy Clear [facility] Urine color determinationOrd ered By: [place] Mirza on 12-11-2024 Color (U) Straw Yellow [facility] Urine glucose detectionOrder ed By: Lake Mirza on 12-11-2024 Glucose Ql (U) Normal mg/dl Normal [facility] Urine leukocyte esterase det ection by dipstickOrdered By: [place] Mirza on 12-11-2024 Leukocyte esterase Test strip Ql (U) 500 /ul High Negative [facility] Urine pHOrdered By: [place] Mirza on 12-11-2024 pH (U) 6.0 [pH] 5.0 - 8.0 [facility] Urine sediment bacteria coun t by microscopy (number/high power field)Ordered By: Lake Mirza on 12-11-2024 Bacteria LM.HPF (Urine sed) [#/Area] 2 /[HPF] None Seen [facility] Urine specific gravity measu rementOrdered By: Lake Mirza on 12-11-2024 Specific gravity (U) [Rel density] 1.025 1.002-1.030 [facility] Urine urobilinogen measureme ntOrdered By: Lake Mirza on 12-11-2024 Urobilinogen Ql (U) Normal mg/dl Normal [facility] White blood cell (WBC) count Ordered By: [place] Mirza on 12-11-2024 WBC (Bld) [#/Vol] 7.5 10*3/uL 4.4-11.0 [facility] White blood cell countOrdere d By: Lake Le on 12-11-2024 White blood cell count 10-25 SEEN /hpf 0-5 [facility] CNPNon 11-19-2024 CNPN Telephone (TANO) SHILPA HOANG ([id number]) 1995 F Date Time Provider Department 11/19/24 [...] tablet by mouth once daily. - PNV no.726-ckws-ykapmejazxl e 29-1 mg tab Take 1 tablet [...] Status:Closed by JUSTIN VALENTINO on 11/19/24 Normal [facility] [id number] PLUSon 11-19-2024 Cell-free DNA./Cell-free DNA.total Dosage of chromosome-specific cfDNA (cfDNA) [Molar fraction] 16% Normal [facility] Comment on above: Order Comment: Speci men Type: BLOOD SPECIMENOrdering Facility: [facility] Address: [address] [place] [address] Performed By: #### M AT21 ####[facility] LABCLIA [id number] [facility] [place] [address] Chr 13+18+21+X+Y aneuploidy Dosage of chromosome-specific cfDNA Ql (cfDNA) Negative Normal [facility] Comment on above: Order Comment: Speci men Type: BLOOD SPECIMENOrdering Facility: [facility] Address: [address], [place] [address] Performed By: #### M AT21 ####[facility] LABCLIA [id number] [place] [address] Chr 21 trisomy Dosage of chromosome-specific cfDNA Ql (cfDNA) Negative Normal [facility] Comment on above: Order Comment: Speci men Type: BLOOD SPECIMENOrdering Facility: [facility] Address: [address] [place] [address] Performed By: #### M AT21 ####[facility] LABCLIA [id number] [place] [address] Chr X and Y aneuploidy risk Sequencing Ql (cfDNA) [Interp] Not detected Normal [facility] Comment on above: Order Comment: Speci men Type: BLOOD SPECIMENOrdering Facility: [facility] Address: [address] [place] [address] Result Comment: Not Detected Not Detected Performed By: #### M AT21 ####[facility] LABCLIA [id number] [place] [id number] Citation Jose (Reference lab test) Comment Normal [facility] Comment on above: Order Comment: Speci men Type: BLOOD SPECIMENOrdering Facility: [facility] Address: [address] [place] [address] Result Comment: 1. P sonali HAYS, et al. Jahaira Med. 2012;14(3):296-305. 2. Latha WADE et al. Prenat Diag. 2013;33(6):591-597. 3. Bryn C, et al. Clin Chem. 2015 Apr;61(4):608-616. 4. Paul HAYS et al. Jahaira Med. 2011;13(11):913-920. 5. ACOG/SMFM Practice Bulletin No. 226, Mar 2020. Performed By: #### M AT21 ####[facility] LABCLIA [id number] [place] [address] Gestational age Estimated from conception date Marquez Normal [facility] Comment on above: Order Comment: Speci men Type: BLOOD SPECIMENOrdering Facility: [facility] Address: [address] [place] [address] Performed By: #### M AT21 ####[facility] LABCLIA [id number] [place] [address] GESTATIONALAGE AGE > OR = 9W Yes Normal [facility] Comment on above: Order Comment: Speci men Type: BLOOD SPECIMENOrdering Facility: [facility] Address: [address] [place] [address] Performed By: #### M AT21 ####[facility] LABCLIA [id number] [place] [address] Laboratory comment Jose (Report) Comment Normal [facility] Comment on above: Order Comment: Speci men Type: BLOOD SPECIMENOrdering Facility: [facility] Address: [address] [place] [address] Result Comment: The MaterniT(R) 21 PLUS laboratory-developed test (LDT) analyzes circulating cell-free DNA from a maternal blood sample. This test is used for screening purposes and not diagnostic. Clinical correlation is recommended. Validation data on twin pregnancies is limited and the ability of this test to detect aneuploidy in higher multiple gestations has not yet been validated. Performed By: #### M AT21 ####[facility] LABCLIA [id number] [place] [address] director staffing name Nom (Provider) Comment Normal [facility] Comment on above: Order Comment: Speci men Type: BLOOD SPECIMENOrdering Facility: [facility] Address: [address] [place] [address] Result Comment: This specimen showed an expected representation of chromosome 21, 18 and 13 material. Clinical correlation is suggested. Comment Torito Butler MD, PhD, Director, Khush Performed By: #### M AT21 ####[employer] [facility] [facility] LABCLIA [id number] [place] [address] LIMITATIONS OF THE TEST Comment Normal [facility] Comment on above: Order Comment: Speci men Type: BLOOD SPECIMENOrdering Facility: [facility] Address: [address] [place] [address] Result Comment: Whil e the results of these tests are highly [...] and Fragmin(R)). Performed By: #### M AT21 ####[facility] LABIA [id number] [place] [address] Monosomy X risk Dosage of chromosome-specific cfDNA Ql (Plasma cell-free+WBC DNA) [Interp] Not detected Normal [facility] Comment on above: Order Comment: Costa elyssa Type: BLOOD SPECIMENOrdering Facility: [facility] Address: [address] [place] [address] Performed By: #### M AT21 ####[facility] LABCLIA [id number] [place] [address] NEGATIVE PREDICTIVE VALUE Note Normal [facility] Comment on above: Order Comment: Gingerraul bergeron Type: BLOOD SPECIMENOrdering Facility: [facility] Address: [address] [place] [address] Result Comment: The Negative Predictive Value (NPV) for trisomy 21, 18, and 13 is greater than 99%. The NPV for SCA and ESS cannot be calculated as SCA and ESS are only reported when an abnormality is detected. Performed By: #### M AT21 ####[facility] LABCLIA [id number] [place] [address] PERFORMANCE CHARACTERISTICS Note Normal [facility] Comment on above: Order Comment: Costa bergeron Type: BLOOD SPECIMENOrdering Facility: [facility] Address: [address] [place] [address] Result Comment: ! Sex ! Accuracy: 99.4% [...] gestation only. Performed By: #### M AT21 ####[facility] [id number] [facility] [place] [address] POSITIVE PREDICTIVE VALUE N/A Normal [facility] Comment on above: Order Comment: Speci men Type: BLOOD SPECIMENOrdering Facility: [facility] Address: [address] [place] [address] Performed By: #### M AT21 ####[facility] LABCLIA [id number] [place] [id number] Reference Lab Test Method Comment Normal [facility] Comment on above: Order Comment: Speci men Type: BLOOD SPECIMENOrdering Facility: [facility] Address: [address] [place] [address] Result Comment: See Notes Circulating cell-free DNA [...] and 22. Performed By: #### M AT21 ####[facility] LABIA [id number] [place] [address] Service comment (Unsp spec) [Interp] Comment Normal [facility] Comment on above: Order Comment: Speci men Type: BLOOD SPECIMENOrdering Facility: [facility] Address: [address] [place] [address] Result Comment: See Notes [employer] is a subsidiary of [employer], using the brand [employer]. This test was developed and its performance characteristics determined by [employer]. It has not been cleared or approved by the Food and Drug Administration. This laboratory is certified under the Clinical Laboratory Improvement Amendments (CLIA) as qualified to perform high complexity clinical laboratory testing and accredited by the [employer] (CAP). If there is future clinical need for adding MaterniT GENOME testing, this specimen will be available until term. [facility] samples will not be retained beyond 60 days. [facility] patients will have to send a new sample for re-sequencing ([facility] Test Code: 697284). Performed By: #### M AT21 ####[facility] LABCLIA [id number] [place] [address] Sex Dosage of chromosome-specific cfDNA Nom (cfDNA) Comment Normal [facility] Comment on above: Order Comment: Speci men Type: BLOOD SPECIMENOrdering Facility: [facility] Address: [address] [place] [address] Result Comment: Cons istent with Female Performed By: #### M AT21 ####[facility] LABCLIA [id number] [place] [address] Test performance information Jose (Unsp spec) Comment Normal [facility] Comment on above: Order Comment: Speci men Type: BLOOD SPECIMENOrdering Facility: [facility] Address: [address] [place] [address] Result Comment: The performance characteristics of the MaterniT(R) 21 PLUS laboratory-developed test (LDT) have been determined in a clinical validation study with women at increased risk for chromosomal aneuploidy.[1-4] Performed By: #### M AT21 ####[facility] LABCLIA [id number] [place] [address] Trisomy 13 risk Dosage of chromosome-specific cfDNA Ql (cfDNA) [Interp] Negative Normal [facility] Comment on above: Order Comment: Speci men Type: BLOOD SPECIMENOrdering Facility: [facility] Address: [address] [place] [address] Performed By: #### M AT21 ####[facility] LABCLIA [id number] [place] [address] Trisomy 18 risk Dosage of chromosome-specific cfDNA Ql (Plasma cell-free+WBC DNA) [Interp] Negative Normal [facility] Comment on above: Order Comment: Speci men Type: BLOOD SPECIMENOrdering Facility: [facility] Address: [address] [place] [address] Performed By: #### M AT21 ####[facility] LABCLIA [id number] [place] [address] C. trachomatis+N. gonorrhoea e DNA OFELIA+probe Ql (Unsp spec)on 11-18-2024 C. trachomatis rRNA OFELIA+probe Ql (Unsp spec) Not detected Normal Not detected [facility] Comment on above: Order Comment: Speci men Type: SWABOrdering Facility: [facility] Address: [address] [place] [address] Performed By: #### 3 6902-5 ####[facility] LABCLIA [id number] [address] N. gonorrhoeae rRNA OFELIA+probe Ql (Unsp spec) Not detected Normal Not detected [facility] Comment on above: Order Comment: Speci men Type: SWABOrdering Facility: [facility] Address: [address] [place] [address] Performed By: #### 3 6902-5 ####[facility] LABCLIA [id number] [address] [place] POC CARD WRITER HAND ULTRASOUNDon 11-19-19 25 Indication Viability; confirm cardiac [...] MEDICINE [facility] Radiology Study observation (narrative) [facility] CBC panel Auto (Bld)on 11-11 Erythrocyte distribution width (RBC) [Ratio] 15.1 % High 11.5-15.0 [facility] Comment on above: Order Comment: Speci men Type: BLOOD SPECIMEN Ordering Facility: [facility] Address: [address] [place] [address] Performed By: #### 2 276-4, 18877-5 #### [facility] LAB CLIA [id number] [address] [place] [address] [place] Hematocrit (Bld) [Volume fraction] 34.1 % Low 36.0-46.0 [facility] Comment on above: Order Comment: Speci men Type: BLOOD SPECIMEN Ordering Facility: [facility] Address: [address] [place] [address] Performed By: #### 2 276-4, 23247-4 #### [facility] CLIA [id number] [address] [place] [address] [place] Hemoglobin (Bld) [Mass/Vol] 11.0 g/dL Low 11.5-15.5 [facility] Comment on above: Order Comment: Speci men Type: BLOOD SPECIMEN [facility]ing Facility: [facility] Address: [address] [place] [address] Performed By: #### 2 276-4, 68032-0 #### [facility] CLIA [id number] [address] [place] [address] [place] MCH (RBC) [Entitic mass] 26.8 pg Normal 26.0-34.0 [facility] Comment on above: Order Comment: Speci men Type: BLOOD SPECIMEN Ordering Facility: [facility] Address: [address] [place] [address] Performed By: #### 2 276-4, 06375-0 #### [facility] CLIA [id number] [address] [place] [address] [place] MCHC (RBC) [Mass/Vol] 32.3 g/dL Normal 30.5-36.0 [facility] Comment on above: Order Comment: Speci men Type: BLOOD SPECIMEN [facility]ing [facility] Address: [address] [place] [address] Performed By: #### 2 276-4, 04010-6 #### [facility] CLIA [id number] [address] [place] [address] [place] MCV (RBC) [Entitic vol] 83.2 fL Normal 80.0-100.0 [facility] Comment on above: Order Comment: Speci men Type: BLOOD SPECIMEN [facility]ing Facility: [facility] Address: [address] [place] [address] Performed By: #### 2 276-4, 88283-9 #### [facility] CLIA [id number] [address] [place] [address] [place] Nucleated RBC (Bld) [#/Vol] 10*3/uL Normal <0.01 [facility] Comment on above: Order Comment: Speci men Type: BLOOD SPECIMEN [facility]ing [facility]: [facility] Address: [address] [place] [address] Performed By: #### 2 276-4, 06426-5 #### [facility] CLIA [id number] [address] [place] [address] [place] Platelet mean volume (Bld) [Entitic vol] 10.9 fL Normal 9.0-12.7 [facility] Comment on above: Order Comment: Speci men Type: BLOOD SPECIMEN [facility]ing [facility]: [facility] Address: [address] [place] [address] Performed By: #### 2 276-4, 67637-3 #### [facility] CLIA [id number] [address] [place] [address] [place] Platelets (Bld) [#/Vol] 197 10*3/uL Normal 150-400 [facility] Comment on above: Order Comment: Speci men Type: BLOOD SPECIMEN [facility]ing [facility]: [facility] Address: [address] [place] [address] Performed By: #### 2 276-4, 00305-4 #### [facility] CLIA [id number] [address] [place] [address] [place] RBC (Bld) [#/Vol] 4.10 10*6/uL Normal 3.90-5.20 [facility] Comment on above: Order Comment: Speci men Type: BLOOD SPECIMEN [facility]ing [facility]: [facility] Address: [address] [place] [address] Performed By: #### 2 276-4, 69924-8 #### [facility] CLIA [id number] [address] [place] [address] [place] WBC (Bld) [#/Vol] 6.72 10*3/uL Normal 3.70-11.00 [facility] Comment on above: Order Comment: Speci men Type: BLOOD SPECIMEN [facility]ing [facility]: [facility] Address: [address] [place] [address] Performed By: #### 2 276-4, 28590-0 #### [facility] CLIA [id number] [address] [place] [address] [place] HBV surface Ag Ser Qlon 10-22 HBV surface Ag Ql (S) Negative Normal Negative [facility] Comment on above: Order Comment: Speci men Type: BLOOD SPECIMEN [facility]: [facility] Address: [address] [place] [address] Performed By: #### 2 276-4, 40080-9 #### [facility] CLIA [id number] [address] [place] [address] [place] HCV Ab Ser Qlon 11-11-2024 HCV Ab Ql (S) Negative Normal Negative [facility] Comment on above: Order Comment: Speci men Type: BLOOD SPECIMENOrdering Facility: [facility] Address: [address] [place] [address] Result Comment: The result suggests no evidence of infection with Hepatitis C virus. Should recent infection be suspected, repeat testing may be considered 4-6 weeks after this draw. Performed By: #### 1 6128-1 ####[facility] LABCLIA [id number] [place] [address] [place] HIV 1+2 Ab IA Qlon 5 HIV 1 and 2 Ab IA.rapid Nom (S/P/Bld) Normal [facility] Comment on above: Order Comment: Speci men Type: BLOOD SPECIMEN Ordering Facility: [facility] Address: [address] [place] [address] Result Comment: Test not indicated. Performed By: #### 2 276-4, 73166-2 #### [facility] CLIA [id number] [address] [place] [address] [place] HIV 1+2 Ab+HIV1 p24 Ag IA Ql Non-Reactive Normal Nonreactive [facility] Comment on above: Order Comment: Speci men Type: BLOOD SPECIMEN [facility]ing [facility]: [facility] Address: [address] [place] [address] Performed By: #### 2 276-4, 32280-2 #### [facility] CLIA [id number] [address] [place] [address] [place] HIV immunoassay testing algorithm interpretation (S/P/Bld) [Interp] Normal [facility] Comment on above: Order Comment: Speci elyssa Type: BLOOD SPECIMEN Ordering Facility: [facility] Address: [address] [place] [address] Result Comment: No e vidence of HIV-1 or HIV-2 infection. Should recent infection be suspected, repeat testing may be considered 2-3 weeks after this draw. [place] Rev. Code 3701.243(E): This information has been [...] test results or diagnoses. Performed By: #### 2 276-4, 95845-3 #### [facility] CLIA [id number] [address] [place] [address] OF [facility] HbA1c (Bld)on 11-11-2024 Average glucose Estimated from glycated hemoglobin (Bld) [Mass/Vol] 88 mg/dL Normal [facility] Comment on above: Order Comment: Speci men Type: BLOOD SPECIMENOrdering Facility: [facility] Address: [address] [place] [address] Result Comment: eAG: (Estimated average glucose) is a calculated value from HgbA1c and is retail field representative of the average blood glucose level in the last 2-3 month period. Performed By: #### 5 5454-3 ####[facility] LABCLIA [id number] [address] HbA1c (Bld) [Mass fraction] 4.7 % Normal 4.3-5.6 [facility] Comment on above: Order Comment: Speci [facility] Type: BLOOD SPECIMENOrdering Facility: [facility] Address: [address] [place] [address] Result Comment: [place] Diabetes Association guidelines indicate that patients with HgbA1c in the range 5.7-6.4% are at increased risk for development of diabetes, and intervention by lifestyle modification may be beneficial. HgbA1c greater or equal to 6.5% is considered diagnostic of diabetes. Performed By: #### 5 5454-3 ####[facility] LABCLIA [id number] [address] OF [place] RUBELLA IGG ANTIBODYon 11-11 RUBELLA IGG AB, QUAL Positive Normal Positive [facility] Comment on above: Order Comment: Speci men Type: BLOOD SPECIMENOrdering Facility: [facility] Address: [address] [place] [address] Result Comment: The result suggests recent or past exposure to Rubella virus or history of Rubella vaccination. Positive result may also be seen due to presence of passively-transferred antibodies. Please correlate with patient's history. Performed By: #### R UBIGG ####[facility] LABCLIA [id number] [place] [address] [place] Reagin and Treponema pallidu m IgG and IgM [Interp]on 11-11-2024 T. pallidum IgG+IgM IA Ql (S) Non-Reactive Normal Nonreactive [facility] Comment on above: Order Comment: Speci men Type: BLOOD SPECIMEN [facility]ing [facility] Address: [address] [place] [address] Performed By: #### 2 276-4, 96721-1 #### [facility] CLIA [id number] [address] [place] [address] [place] Reagin+T pallidum IgG+IgM Se rPl-Impon 11-11-2024 Reagin and Treponema pallidum IgG and IgM [Interp] Cannot exclude recent Treponemal infection if specimen collected within 7-10 days after appearance of suspect lesions or 2-3 weeks after an exposure. Clinical correlation is required. Normal [facility] Comment on above: Order Comment: Speci men Type: BLOOD SPECIMEN [facility]ing [facility] Address: [address] [place] [address] Performed By: #### 2 276-4, 13986-7 #### [facility] CLIA [id number] [address] [place] [address] [place] TYPE + SCREEN PRENATALon ABO A Normal [facility] Comment on above: Order Comment: Speci men Type: BLOOD SPECIMEN [facility]ing [facility] Address: [address] [place] [address] Performed By: #### M AT21 #### [facility] CLIA [id number] [address] [place] [address] Rh Nom (Bld) Positive Normal [facility] Comment on above: Order Comment: Speci men Type: BLOOD SPECIMEN Ordering Facility: [facility] Address: [address] [place] [address] [place] [address] Performed By: #### M AT21 #### [facility] CLIA [id number] [address] [place] [address] TYPE AND SCREEN EXPIRATION 11/14/2024 23:59 Normal [facility] Comment on above: Order Comment: Speci men Type: BLOOD SPECIMEN Ordering Facility: [facility] Address: [address] [place] [address] Performed By: #### M AT21 #### [facility] CLIA [id number] [address] [place] [address] Transvaginal w/Preg USon Transvaginal w/Preg [facility] [address] [place] [address] Transvaginal w/Preg US MR#: [id number] Acct: [id number] Name: SHILPA HOANG Rep #: [id number] : 1995 F 28 From: [place]on Tapia MD PCP: Dr. David Mckinney MD Status: REG CLI Study: Transvaginal w/Preg US Date of Exam: 10/21/24 Exam# [id number] Ordering Dr: Rizwan Cárdenas DO PROCEDURE: TRANSVAGINAL [...] weeks 1 day, JANE 05/25/2025. Reading Location: [id number] CC: Dr. David Mckinney MD; Rizwan Cárdenas DO Sharepoint Application Developer: Signed Normal [facility] Urine Cultureon 10-14-2024 URC Below infection leve l. Mixed Gram Positive Organisms [place] Count 1000-10,000 MIXC Mixed contaminants. Submit a new specimen if indicated. Normal [facility] Comment on above: Performed By: #### L 501.4100, L501.0900, L501.1105, L100.0500, L501.1400, L501.4405 #### [facility] [address] [place], [address] [facility] 10-13-2024 [facility] Telephone (OBGYWM) SHILPA HOANG ([id number]) 1995 F Date Time Provider Department 10/13/24 SARAH HUBER During your visit today, we recorded the following information about you: Emily Scott LPN 10/13/2024 4:39 PM Signed Lmp: 08/18/24 and was seen at [facility] for cramping yesterday and was told she was . Patient dx w/ UTI and given amoxicillin and zofran [place] nausea. [place] [address] and ED doctor told her she was 10 to 12 weeks. Denies vaginal bleeding, no fever. Patient has new ob appointment 10/25/24. Patient asking if she needs seen sooner for ED f/u. Sarah Huebr MD 10/13/2024 5:36 PM Signed No- 10/25 [...] Date Reviewed: 09/16/2024 Reviewed by: Hortencia Gould, ADONIS.FACILITY OPERATIONS MANAGER - Fully Assessed Reason for Visit: Patient [...] Status:Closed by ANCA BROUSSARD on 10/14/24 Normal [facility] Absolute lymphocyte countOrd ered By: Rizwan Cárdenas on 10-12-2024 Lymphocytes Auto (Unsp spec) [#/Vol] 2.83 10*3/uL 0.83-4.51 [facility] Absolute neutrophil countOrd ered By: Rizwan Cárdenas on 10-12-2024 Neutrophils (Bld) [#/Vol] 4.0 10*3/uL 2.0-7.7 [facility] Amorphous sediment detection in urine sediment by light microscopyOrdered By: Rizwan Cárdenas on 10-12-2024 Amorphous sediment LM Ql (Urine sed) 2+ [facility] Anion gap in Serum or Plasma Ordered By: Rizwan Cárdenas on 10-12-2024 Anion gap [Moles/Vol] 11 mmol/L 5-15 [facility] Automated lymphocyte count a s percentage of total leukocytesOrdered By: Rizwan Cárdenas on 10-12-2024 Lymphocytes/100 WBC Auto (Unsp spec) 35.3 % 19-41 [facility] [id number] 10-12-2024 ABO and Rh group Nom (Bld) Blood group A Rh(D) positive Normal [facility] Comment on above: Performed By: #### L 501.4100, L501.0900, L501.1105, L100.0500, L501.1400, L501.4405 #### [facility] [address] [place], [address] BUN/creatinine ratioOrdered By: Rizwan Cárdenas on 10-12-2024 Urea nitrogen/Creatinine [Mass ratio] 17.4 mg/mg - [facility] Basic Metabolic Profile (BMP )on 10-12-2024 BUN/CRE 17.4 RATIO Normal - [facility] Comment on above: Performed By: #### L 501.4100, L501.0900, L501.1105, L100.0500, L501.1400, L501.4405 #### [facility] [address] [place], [address] Calcium [Mass/Vol] 9.2 mg/dL Normal 7.6-11.0 [facility] Comment on above: Performed By: #### L 501.4100, L501.0900, L501.1105, L100.0500, L501.1400, L501.4405 #### [facility] [address] [place], [address] Chloride [Moles/Vol] 104 mmol/L Normal 98-108 [facility] Comment on above: Performed By: #### L 501.4100, L501.0900, L501.1105, L100.0500, L501.1400, L501.4405 #### [facility] [address] [place], [address] CO2 [Moles/Vol] 22.3 mmol/L Normal 21.0-32.0 [facility] Comment on above: Performed By: #### L 501.4100, L501.0900, L501.1105, L100.0500, L501.1400, L501.4405 #### [facility] [address] [place], [address] Creatinine [Mass/Vol] 0.87 mg/dL Normal 0.70-1.20 [facility] Comment on above: Performed By: #### L 501.4100, L501.0900, L501.1105, L100.0500, L501.1400, L501.4405 #### [facility] [address] [place], [address] ECRCL 97.15 ml/min Normal 50-250 [facility] Comment on above: Performed By: #### L 501.4100, L501.0900, L501.1105, L100.0500, L501.1400, L501.4405 #### [facility] [address] [place], [address] GAP 11 Normal 5-15 [facility] Comment on above: Performed By: #### L 501.4100, L501.0900, L501.1105, L100.0500, L501.1400, L501.4405 #### [facility] [address] [place], [address] GFR/1.73 sq M.predicted among non-blacks MDRD (S/P/Bld) [Vol rate/Area] 94 mL/min/{1.73_m2} Normal >60 [facility] Comment on above: Result Comment: mL/m in/1.73m2 CKD-EPI Creatinine Equation (2020) Performed By: #### L 501.4100, L501.0900, L501.1105, L100.0500, L501.1400, L501.4405 #### [facility] [address] [place], [address] Glucose [Mass/Vol] 100 mg/dL High 70-99 [facility] Comment on above: Performed By: #### L 501.4100, L501.0900, L501.1105, L100.0500, L501.1400, L501.4405 #### [facility] [address] [place], [address] Potassium [Moles/Vol] 4.0 mmol/L Normal 3.3-5.1 [facility] Comment on above: Performed By: #### L 501.4100, L501.0900, L501.1105, L100.0500, L501.1400, L501.4405 #### [facility] [address] [place], [place], [address] Sodium [Moles/Vol] 137 mmol/L Normal 133-145 [facility] Comment on above: Performed By: #### L 501.4100, L501.0900, L501.1105, L100.0500, L501.1400, L501.4405 #### [facility] [address] [place], [place], [address] Urea nitrogen [Mass/Vol] 15 mg/dL Normal 4-19 [facility] Comment on above: Performed By: #### L 501.4100, L501.0900, L501.1105, L100.0500, L501.1400, L501.4405 #### [facility] [address] [place], [place], [address] Basophil percentageOrdered B y: Rizwan Cárdenas on 10-12-2024 Basophils/100 WBC (Bld) 0.5 % 0-1 [facility] Bilirubin Test strip Ql (U)O rdered By: Rizwan Cárdenas on 10-12-2024 Bilirubin Ql (U) Negative Negative [facility] Bilirubin directOrdered By: Rizwan Cárdenas on 10-12-2024 Bilirubin.direct [Mass/Vol] 0.11 mg/dL 0.00-0.30 [facility] Bilirubin, totalOrdered By: Rizwan Cárdenas on 10-12-2024 Bilirubin [Mass/Vol] 0.25 mg/dL 0.00-1.30 [facility] CBC W/Diff, Automatedon 09-22 Absolute Lymph 2.83 X10 3/uL Normal 0.83-4.51 [facility] Comment on above: Performed By: #### L 501.4100, L501.0900, L501.1105, L100.0500, L501.1400, L501.4405 #### [facility] [address] [place], [address] Absolute Neut 4.0 X10 3/uL Normal 2.0-7.7 [facility] Comment on above: Performed By: #### L 501.4100, L501.0900, L501.1105, L100.0500, L501.1400, L501.4405 #### [facility] [address] [place], [address] Basophils/100 WBC (Bld) 0.5 % Normal 0-1 [facility] Comment on above: Performed By: #### L 501.4100, L501.0900, L501.1105, L100.0500, L501.1400, L501.4405 #### [facility] [address] [place], [address] Eosinophils/100 WBC (Bld) 6.5 % High 0-5 [facility] Comment on above: Performed By: #### L 501.4100, L501.0900, L501.1105, L100.0500, L501.1400, L501.4405 #### [facility] [address] [place], [address] Erythrocyte distribution width (RBC) [Ratio] 14.3 % Normal 11.6-14.6 [facility] Comment on above: Performed By: #### L 501.4100, L501.0900, L501.1105, L100.0500, L501.1400, L501.4405 #### [facility] [address] [place], [address] Hematocrit (Bld) [Volume fraction] 37.6 % Normal 37-47 [facility] Comment on above: Performed By: #### L 501.4100, L501.0900, L501.1105, L100.0500, L501.1400, L501.4405 #### [facility] [address] [place], [address] Hemoglobin (Bld) [Mass/Vol] 12.2 g/dL Normal 12.0-15.0 [facility] Comment on above: Performed By: #### L 501.4100, L501.0900, L501.1105, L100.0500, L501.1400, L501.4405 #### [facility] [address] [place] [place], [address] IG% 0.200 Normal 0.0-0.9 [facility] Comment on above: Result Comment: IG% - Immature Granulocytes (promyelocytes, myelocytes and metamyelocytes) > 1% indicates that a LEFT SHIFT is Present. Performed By: #### L 501.4100, L501.0900, L501.1105, L100.0500, L501.1400, L501.4405 #### [facility] [address] [place], [address] Lymphocytes/100 WBC (Bld) 35.3 % Normal 19-41 [facility] Comment on above: Performed By: #### L 501.4100, L501.0900, L501.1105, L100.0500, L501.1400, L501.4405 #### [facility] [address] [place], [address] MCH (RBC) [Entitic mass] 26.1 pg Low 27.0-32.0 [facility] Comment on above: Performed By: #### L 501.4100, L501.0900, L501.1105, L100.0500, L501.1400, L501.4405 #### [facility] [address] [place], [address] MCHC (RBC) [Mass/Vol] 32.4 g/dL Normal 32-36 [facility] Comment on above: Performed By: #### L 501.4100, L501.0900, L501.1105, L100.0500, L501.1400, L501.4405 #### [facility] [address] [place], [address] MCV (RBC) [Entitic vol] 80.5 fL Low 81-99 [facility] Comment on above: Performed By: #### L 501.4100, L501.0900, L501.1105, L100.0500, L501.1400, L501.4405 #### [facility] [address] [place], [address] Monocytes/100 WBC (Bld) 7.4 % Normal 0-10 [facility] Comment on above: Performed By: #### L 501.4100, L501.0900, L501.1105, L100.0500, L501.1400, L501.4405 #### [facility] [address] [place], [address] Neutrophils/100 WBC (Bld) 50.1 % Normal 47-70 [facility] Comment on above: Performed By: #### L 501.4100, L501.0900, L501.1105, L100.0500, L501.1400, L501.4405 #### [facility] [address] [place], [address] Nucleated RBC (Bld) [#/Vol] 0 10*3/uL Normal 0-5 [facility] Comment on above: Performed By: #### L 501.4100, L501.0900, L501.1105, L100.0500, L501.1400, L501.4405 #### [facility] [address] [place], [address] Platelet mean volume (Bld) [Entitic vol] 11.3 fL Normal 6.2-12.0 [facility] Comment on above: Performed By: #### L 501.4100, L501.0900, L501.1105, L100.0500, L501.1400, L501.4405 #### [facility] [address] [place], [address] Platelets (Bld) [#/Vol] 213 10*3/uL Normal 150-450 [facility] Comment on above: Performed By: #### L 501.4100, L501.0900, L501.1105, L100.0500, L501.1400, L501.4405 #### [facility] [address] [place], [address] RBC (Bld) [#/Vol] 4.67 10*6/uL Normal 4.2-5.4 [facility] Comment on above: Performed By: #### L 501.4100, L501.0900, L501.1105, L100.0500, L501.1400, L501.4405 #### [facility] [address] [place], [address] RDW SD 41.6 fl Normal 35.1-43.9 [facility] Comment on above: Performed By: #### L 501.4100, L501.0900, L501.1105, L100.0500, L501.1400, L501.4405 #### [facility] [address] [place], [address] WBC (Bld) [#/Vol] 8.0 10*3/uL Normal 4.4-11.0 [facility] Comment on above: Performed By: #### L 501.4100, L501.0900, L501.1105, L100.0500, L501.1400, L501.4405 #### [facility] [address] [place], [address] Carbon dioxide, total [Moles /volume] in Central venous bloodOrdered By: Rizwan Cárdenas on 10-12-2024 CO2 [Moles/Vol] 22.3 mmol/L 21.0-32.0 [facility] Chloride assayOrdered By: Chelsi Cárdenas on 10-12-2024 Chloride [Moles/Vol] 104 mmol/L 98-108 [facility] Emergency Department Summary on 10-12-2024 Emergency Department Summary [facility] Medical Records Department [address] [place] [address] Emergency Department Summary 10/12/24 MR#: [id number] Acct: [id number] Name: SHILPA HOANG Rep #: [id number] : 1995 28 From: Rizwan Cárdenas DO [...] secondary to this comes in for evaluation. [facility] Medical History (Updated 10/12/24 @ 02:[address] Rizwan Cárdenas DO) (spontaneous vaginal delivery) Depression Family history of hearing loss at age younger than 7 years Gestational HTN Stillborn, normal History of placental abruption Trauma depression Anxiety Cervical myofascial strain Home Medications ???Medication ???Instructions ???Recorded ???Last Taken ???Type gznqsbbw-[id number]-[id number]-[id number] 1 mg 1 tab PO DAILY 09/13/21 [...] CN's II-XI (more content not included)... Normal [facility] Eosinophil percentageOrdered By: Rizwan Cárdenas on 10-12-2024 Eosinophils/100 WBC (Bld) 6.5 % High 0-5 [facility] Epithelial cells.squamous LM Ql (Urine sed)Ordered By: Rizwan Cárdenas on 10-12-2024 Epithelial cells.squamous LM.HPF (Urine sed) [#/Area] 25 /[HPF] 5-10 [facility] Erythrocyte distribution wid th (RBC) [Ratio]Ordered By: Rizwan Cárdenas on 10-12-2024 Erythrocyte distribution width (RBC) [Entitic vol] 41.6 fL 35.1-43.9 [facility] Erythrocyte distribution wid th ratioOrdered By: Rizwan Cárdenas on 10-12-2024 Erythrocyte distribution width (RBC) [Ratio] 14.3 % 11.6-14.6 [facility] Erythrocyte distribution wid th standard deviationOrdered By: Rizwan Cárdenas on 10-12-2024 Erythrocyte distribution width (RBC) [Ratio] 41.6 fl 35.1-43.9 [facility] Estimation of creatinine morgan aranceOrdered By: Rizwan Cárdenas on 10-12-2024 Estimated Creatinine Clearance Calc 97.15 ml/min 50-250 [facility] GFR/1.73 sq M.predicted ankita g non-blacks MDRD (S/P/Bld) [Vol rate/Area]Ordered By: Rizwan Cárdenas on 10-12-2024 Estimated GFR (MDRD) Non-Af Amer 94 >60 [facility] Comment on above: mL/min/1.73m2 CKD-EP I Creatinine Equation (2020) Glomerular filtration rate ( GFR) estimation/1.73 sq m using serum, plasma, or whole bOrdered By: Rizwan Cárdenas on 10-12-2024 GFR/1.73 sq M.predicted among non-blacks MDRD (S/P/Bld) [Vol rate/Area] 94 mL/min/{1.73_m2} >60 [facility] Comment on above: mL/min/1.73m2 CKD-EP I Creatinine Equation (2020) Glucose Ql (U)Ordered By: Chelsi Cárdenas on 10-12-2024 Urine Glucose (UA) Normal mg/dl Normal [facility] HCG ( test) QlOrder ed By: Rizwan Cárdenas on 10-12-2024 Human Chorionic Gonadotropin, Quant 13173 mIU/mL High <9 [facility] Comment on above: Gestational Age0.2-1 Week: 5-50 mIU/mL1-2 Weeks: 50-500 mIU/mL2-3 Weeks: 100-5000 mIU/mL3-4 Weeks: 500-10,000 mIU/mL4-5 Weeks:1000-50,000 mIU/mL5-6 Weeks: 10,000-100,000 mIU/mL6-8 Weeks: 15,000-200,000 mIU/mL2-3 Months:10,000-100,000 mIU/mL Hematocrit Auto (Bld) [Volum e fraction]Ordered By: Rizwan Cárdenas on 10-12-2024 Hematocrit (Bld) [Volume fraction] 37.6 % 37-47 [facility] Hemoglobin measurementOrdere d By: Rizwan Cárdenas on 10-12-2024 Hemoglobin (Bld) [Mass/Vol] 12.2 g/dL 12.0-15.0 [facility] Immature granulocytes/100 WB C Auto (Bld)Ordered By: Rizwan Cárdenas on 10-12-2024 Immature granulocytes/100 WBC (Bld) 0.200 % 0.0-0.9 [facility] Comment on above: IG% - Immature Granu locytes (promyelocytes, myelocytes and metamyelocytes) > 1% indicates that a LEFT SHIFT is Present. Ketones Test strip Ql (U)Ord ered By: Rizwan Cárdenas on 10-12-2024 Ketones Ql (U) Negative Negative [facility] - Chemistry and C hemistry - challengeOrdered By: Rizwan Cárdenas on 10-12-2024 AST [Catalytic activity/Vol] 14 U/L <32 [facility] Lipaseon 10-12-2024 Lipase [Catalytic activity/Vol] 26 U/L Normal 13-75 [facility] Comment on above: Result Comment: Raj redman note: LIPASE revised reference range effective 22. New Lipase methodology. Expected to produce lower values than the previous assay method. NEW Reference Range: 13 - 75 U/L Performed By: #### L 501.4100, L501.0900, L501.1105, L100.0500, L501.1400, L501.4405 #### [facility] [address] [place], [address] Lipase measurementOrdered By : Rizwan Cárdenas on 10-12-2024 Lipase [Catalytic activity/Vol] 26 U/L 13-75 [facility] Comment on above: Please note:LIPASE r evised reference range effective 22. New Lipase methodology. Expected to produce lower values than the previous assay method. NEW Reference Range: 13 - 75 U/L Liver Profileon 10-12-2024 Albumin [Mass/Vol] 4.3 g/dL Normal 3.5-5.0 [facility] Comment on above: Performed By: #### L 501.4100, L501.0900, L501.1105, L100.0500, L501.1400, L501.4405 #### [facility] [address] [place], [address] ALK PHOS 92 U/L Normal 35-104 [facility] Comment on above: Performed By: #### L 501.4100, L501.0900, L501.1105, L100.0500, L501.1400, L501.4405 #### [facility] [address] [place], [address] ALT [Catalytic activity/Vol] 14 U/L Normal <=34 [facility] Comment on above: Performed By: #### L 501.4100, L501.0900, L501.1105, L100.0500, L501.1400, L501.4405 #### [facility] [address] [place], [address] AST [Catalytic activity/Vol] 14 U/L Normal <=31 [facility] Comment on above: Performed By: #### L 501.4100, L501.0900, L501.1105, L100.0500, L501.1400, L501.4405 #### [facility] [address] [place], [address] Bilirubin [Mass/Vol] 0.25 mg/dL Normal 0.00-1.30 [facility] Comment on above: Performed By: #### L 501.4100, L501.0900, L501.1105, L100.0500, L501.1400, L501.4405 #### [facility] [address] [place], [address] Bilirubin.direct [Mass/Vol] 0.11 mg/dL Normal 0.00-0.30 [facility] Comment on above: Performed By: #### L 501.4100, L501.0900, L501.1105, L100.0500, L501.1400, L501.4405 #### [facility] [address] [place], [address] Globulin (S) [Mass/Vol] 3.1 g/dL Normal 2.2-4.2 [facility] Comment on above: Performed By: #### L 501.4100, L501.0900, L501.1105, L100.0500, L501.1400, L501.4405 #### [facility] [address] [place], [address] T PROT 7.4 g/dL Normal 5.9-8.4 [facility] Comment on above: Performed By: #### L 501.4100, L501.0900, L501.1105, L100.0500, L501.1400, L501.4405 #### [facility] [address] [place], [address] Lymphocytes Auto (Unsp spec) [#/Vol]Ordered By: Rizwan Cárdenas on 10-12-2024 Lymphocytes (Bld) [#/Vol] 2.83 10*3/uL 0.83-4.51 [facility] Lymphocytes/100 WBC Auto (Un sp spec)Ordered By: Rizwan Cárdenas on 10-12-2024 Lymphocytes/100 WBC (Bld) 35.3 % 19-41 [facility] MCV (mean corpuscular volume ) determinationOrdered By: Rizwan Cárdenas on 10-12-2024 MCV (RBC) [Entitic vol] 80.5 fL Low 81-99 [facility] Mean corpuscular hemoglobin (MCH) determinationOrdered By: Rizwan Cárdenas on 10-12-2024 MCH (RBC) [Entitic mass] 26.1 pg Low 27.0-32.0 [facility] Mean corpuscular hemoglobin concentration (MCHC) determinationOrdered By: Rizwan Cárdenas on 10-12-2024 MCHC (RBC) [Mass/Vol] 32.4 g/dL 32-36 [facility] Mean platelet volume determi nationOrdered By: Rizwan Cárdenas on 10-12-2024 Platelet mean volume (Bld) [Entitic vol] 11.3 fL 6.2-12.0 [facility] Microscopic analysis of urin e for red blood cells (RBC)Ordered By: Rizwan Cárdenas on 10-12-2024 Microscopic analysis of urine for red blood cells (RBC) 0 SEEN /hpf 0-5 [facility] Urine RBC 0 SEEN /hpf 0-5 [facility] Monocyte percentageOrdered B y: Rizwan Cárdenas on 10-12-2024 Monocytes/100 WBC (Bld) 7.4 % 0-10 [facility] Mucus LM Ql (Urine sed)Order ed By: Rizwan Cárdenas on 10-12-2024 Mucus Ql (Urine sed) 0 SEEN /hpf [facility] Neutrophil percentageOrdered By: Rizwan Cárdenas on 10-12-2024 Neutrophils/100 WBC (Bld) 50.1 % 47-70 [facility] Nitrite Test strip Ql (U)Ord ered By: Rizwan Cárdenas on 10-12-2024 Nitrite Ql (U) Negative Negative [facility] Nucleated red blood cell per centageOrdered By: Rizwan Cárdenas on 10-12-2024 Nucleated RBC/100 WBC (Bld) [Ratio] 0 % 0-5 [facility] Platelet countOrdered By: Chelsi Cárdenas on 10-12-2024 Platelets (Bld) [#/Vol] 213 10*3/uL 150-450 [facility] Potassium (Unsp spec) [Mass/ Vol]Ordered By: Rizwan Cárdenas on 10-12-2024 Potassium [Moles/Vol] 4.0 mmol/L 3.3-5.1 [facility] Potassium measurement (mass/ volume)Ordered By: Rizwan Cárdenas on 10-12-2024 Potassium (Unsp spec) [Mass/Vol] 4.0 mmol/L 3.3-5.1 [facility] Protein Test strip Ql (U)Ord ered By: Rizwan Cárdenas on 10-12-2024 Protein Ql (U) 15 mg/dl High Negative [facility] RBC Auto (Bld) [#/Vol]Ordere d By: Rizwan Cárdenas on 10-12-2024 RBC (Bld) [#/Vol] 4.67 10*6/uL 4.2-5.4 [facility] Serum creatinine measurement (mass/volume)Ordered By: Rizwan Cárdenas on 10-12-2024 Creatinine [Mass/Vol] 0.87 mg/dL 0.70-1.20 [facility] Serum globulin measurementOr dered By: Rizwan Cárdenas on 10-12-2024 Globulin (S) [Mass/Vol] 3.1 g/dL 2.2-4.2 [facility] Serum glucose measurement (m ass/volume)Ordered By: Rizwan Cárdenas on 10-12-2024 Glucose [Mass/Vol] 100 mg/dL High 70-99 [facility] Serum human chorionic gonado tropin detection for pregnancyOrdered By: Rizwan Cárdenas on 10-12-2024 HCG ( test) Ql [address] mIU/mL High <9 [facility] Comment on above: Gestational Age0.2-1 Week: 5-50 mIU/mL1-2 Weeks: 50-500 mIU/mL2-3 Weeks: 100-5000 mIU/mL3-4 Weeks: 500-10,000 mIU/mL4-5 Weeks:1000-50,000 mIU/mL5-6 Weeks: 10,000-100,000 mIU/mL6-8 Weeks: 15,000-200,000 mIU/mL2-3 Months:10,000-100,000 mIU/mL Serum or plasma alanine rivero otransferase (ALT) measurementOrdered By: Rizwan Cárdenas on 10-12-2024 ALT [Catalytic activity/Vol] 14 U/L <35 [facility] Serum or plasma albumin roopa urement (mass/volume)Ordered By: Rizwan Cárdenas on 10-12-2024 Albumin [Mass/Vol] 4.3 g/dL 3.5-5.0 [facility] Serum or plasma alkaline robert sphatase measurementOrdered By: Rizwan Cárdenas on 10-12-2024 ALP [Catalytic activity/Vol] 92 U/L 35-104 [facility] Serum or plasma calcium roopa urement (mass/volume)Ordered By: Rizwan Cárdenas on 10-12-2024 Calcium [Mass/Vol] 9.2 mg/dL 7.6-11.0 [facility] Serum or plasma urea nitroge n measurement (mass/volume)Ordered By: Rizwan Cárdenas on 10-12-2024 Urea nitrogen [Mass/Vol] 15 mg/dL 4-19 [facility] Sodium levelOrdered By: Nav Cárdenas on 10-12-2024 Sodium [Moles/Vol] 137 mmol/L 133-145 [facility] Squamous epithelial cells de tection in urine sediment by light microscopyOrdered By: Rizwan Cárdenas on 10-12-2024 Epithelial cells.squamous LM Ql (Urine sed) 25-50 SEEN /hpf 5-10 [facility] Total proteinOrdered By: Giancarlo Cárdenas on 10-12-2024 Protein [Mass/Vol] 7.4 g/dL 5.9-8.4 [facility] Urinalysis, Completeon 10-12 AMORPHOUS 2+ Normal [facility] Comment on above: Order Comment: CLEAN CATCH Performed By: #### L 501.7600, L501.0900, L501.1105, L100.0500, L501.1400, L501.4405 #### [facility] [address] [place], [address] BACTERIA 2+ /hpf Normal None Seen [facility] Comment on above: Order Comment: CLEAN CATCH Performed By: #### L 501.4100, L501.0900, L501.1105, L100.0500, L501.1400, L501.4405 #### [facility] [address] [place], [address] EPI,SQUAMOUS 25-50 SEEN Normal 5-10 [facility] Comment on above: Order Comment: CLEAN CATCH Performed By: #### L 501.4100, L501.0900, L501.1105, L100.0500, L501.1400, L501.4405 #### [facility] [address] [place], [address] WBC >100 SEEN Normal 0-5 [facility] Comment on above: Order Comment: CLEAN CATCH Performed By: #### L 501.4100, L501.0900, L501.1105, L100.0500, L501.1400, L501.4405 #### [facility] [address] [place], [address] BILIRUBIN URINE Negative Normal Negative [facility] Comment on above: Order Comment: CLEAN CATCH Performed By: #### L 501.4100, L501.0900, L501.1105, L100.0500, L501.1400, L501.4405 #### [facility] [address] [place], [address] Clarity (U) Sl. Cloudy Normal Clear [facility] Comment on above: Order Comment: CLEAN CATCH Performed By: #### L 501.4100, L501.0900, L501.1105, L100.0500, L501.1400, L501.4405 #### [facility] [address] [place], [address] Color (U) Yellow Normal Yellow [facility] Comment on above: Order Comment: CLEAN CATCH Performed By: #### L 501.4100, L501.0900, L501.1105, L100.0500, L501.1400, L501.4405 #### [facility] [address] [place], [address] GLUCOSE, UR Normal Normal Normal [facility] Comment on above: Order Comment: CLEAN CATCH Performed By: #### L 501.4100, L501.0900, L501.1105, L100.0500, L501.1400, L501.4405 #### [facility] [address] [place], [address] KETONE UR Negative Normal Negative [facility] Comment on above: Order Comment: CLEAN CATCH Performed By: #### L 501.4100, L501.0900, L501.1105, L100.0500, L501.1400, L501.4405 #### [facility] [address] [place], [address] LEUK ESTERASE 500 /ul Abnormal Negative [facility] Comment on above: Order Comment: CLEAN CATCH Performed By: #### L 501.4100, L501.0900, L501.1105, L100.0500, L501.1400, L501.4405 #### [facility] [address] [place], [address] Mucus Ql (Urine sed) 0 SEEN Normal [facility] Comment on above: Order Comment: CLEAN CATCH Performed By: #### L 501.4100, L501.0900, L501.1105, L100.0500, L501.1400, L501.4405 #### [facility] [address] [place], [address] Nitrite Ql (U) Negative Normal Negative [facility] Comment on above: Order Comment: CLEAN CATCH Performed By: #### L 501.4100, L501.0900, L501.1105, L100.0500, L501.1400, L501.4405 #### [facility] [address] [place], [address] OCCULT BLOOD-UR Negative Normal Negative [facility] Comment on above: Order Comment: CLEAN CATCH Performed By: #### L 501.4100, L501.0900, L501.1105, L100.0500, L501.1400, L501.4405 #### [facility] [address] [place], [address] pH UR 6.5 Normal 5.0 - 8.0 [facility] Comment on above: Order Comment: CLEAN CATCH Performed By: #### L 501.4100, L501.0900, L501.1105, L100.0500, L501.1400, L501.4405 #### [facility] [address] [place], [address] PROT DIPSTX 15 mg/dl Abnormal Negative [facility] Comment on above: Order Comment: CLEAN CATCH Performed By: #### L 501.4100, L501.0900, L501.1105, L100.0500, L501.1400, L501.4405 #### [facility] [address] [place], [address] RBC 0 SEEN Normal 0-5 [facility] Comment on above: Order Comment: CLEAN CATCH Performed By: #### L 501.4100, L501.0900, L501.1105, L100.0500, L501.1400, L501.4405 #### [facility] [address] [place], [address] SP.GR. DIPSTX 1.015 Normal 1.002-1.030 [facility] Comment on above: Order Comment: CLEAN CATCH Performed By: #### L 501.4100, L501.0900, L501.1105, L100.0500, L501.1400, L501.4405 #### [facility] [address] [place], [address] UROBILI Normal Normal Normal [facility] Comment on above: Order Comment: CLEAN CATCH Performed By: #### L 501.4100, L501.0900, L501.1105, L100.0500, L501.1400, L501.4405 #### [facility] [address] [place], [address] Urine blood detectionOrdered By: Rizwan Cárdenas on 10-12-2024 Urine Occult Blood Negative Negative [facility] Urine clarityOrdered By: Giancarlo Cárdenas on 10-12-2024 Clarity (U) Sl. Cloudy Clear [facility] Urine color determinationOrd ered By: Rizwan Cárdenas on 10-12-2024 Color (U) Yellow Yellow [facility] Urine cultureOrdered By: Giancarlo Cárdenas on 10-12-2024 Bacteria identified Cx Nom (U) Positive Abnormal [facility] Urine glucose detectionOrder ed By: Rizwan Cárdenas on 10-12-2024 Glucose Ql (U) Normal mg/dl Normal [facility] Urine leukocyte esterase det ection by dipstickOrdered By: Rizwan Cárdenas on 10-12-2024 Leukocyte esterase Test strip Ql (U) 500 /ul High Negative [facility] Urine pHOrdered By: Rizwan rivera on 10-12-2024 pH (U) 6.5 [pH] 5.0 - 8.0 [facility] Urine sediment bacteria coun t by microscopy (number/high power field)Ordered By: Rizwan Cárdenas on 10-12-2024 Bacteria LM.HPF (Urine sed) [#/Area] 2 /[HPF] None Seen [facility] Urine specific gravity measu rementOrdered By: Rizwan Cárdenas on 10-12-2024 Specific gravity (U) [Rel density] 1.015 1.002-1.030 [facility] Urine urobilinogen measureme ntOrdered By: Rizwan Cárdenas on 10-12-2024 Urobilinogen Ql (U) Normal mg/dl Normal [facility] Urobilinogen Ql (U)Ordered B y: Rizwan Cárdenas on 10-12-2024 Urine Urobilinogen Normal mg/dl Normal [facility] White blood cell (WBC) count Ordered By: Rizwan Cárdenas on 10-12-2024 WBC (Bld) [#/Vol] 8.0 10*3/uL 4.4-11.0 [facility] White blood cell countOrdere d By: Rizwan Cárdenas on 10-12-2024 Urine WBC >100 SEEN /hpf 0-5 [facility] White blood cell count >100 SEEN /hpf 0-5 [facility] hCG Titer Quant., Serumon HCG QUANT. 78127 mIU/mL High <9 non-preg [facility] Comment on above: Result Comment: Gest ational Age 0.2-1 Week: 5-50 mIU/mL 1-2 Weeks: 50-500 mIU/mL 2-3 Weeks: 100-5000 mIU/mL 3-4 Weeks: 500-10,000 mIU/mL 4-5 Weeks:1000-50,000 mIU/mL 5-6 Weeks: 10,000-100,000 mIU/mL 6-8 Weeks: 15,000-200,000 mIU/mL 2-3 Months:10,000-100,000 mIU/mL Performed By: #### L 501.4100, L501.0900, L501.1105, L100.0500, L501.1400, L501.4405 #### [facility] [address] [place], [address] CNPKaelyn 10-08-2024 CNPN Telephone ([id number]) SHILPA HOANG ([id number]) 1995 F Date Time Provider Department 10/08/24 MARGARITA HERNANDEZ [id number] During your visit today, we recorded the [...] Return call to: self Call patient at: [phone] (cell), it is OK to leave message Payor: [facility] [facility] MEDICAID / Plan: [facility] MEDICAID / Product Type: Medicaid / [...] Office/provider patient wishes to establish care to? [place] Patient aware to sign up for My Chart if she does not already have it, so she can receive the "weekend caregiver" messages. Will forward this encounter to the schedulers in this office. Carla Mckinney, RN 10/13/2024 10:27 AM Signed Patient has appt - closing encounter. 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 David Mckinney MD Status:DEP ER Location: ED HPI History of Present Illness Chief Complaint: Dental PFSH PFSH Medical History (Updated 10/02/24 @ 23:[address] Kuldeep Vanegas DO) (spontaneous vaginal delivery) Depression Family history of hearing loss at age younger than 7 years Gestational HTN Stillborn, normal History of placental abruption Trauma depression Anxiety Cervical myofascial strain Home Medications ???Medication ???Instructions ???Recorded ???Last Taken ???Type faggrgks-dke-Xa-FA 1 mg 1 tab PO DAILY 09/13/21 [...] obtained from others: Significant other Consults: none [facility] Narrative: The patient was initially hemodynamically stable, [...] significant/life t (more content not included)... Normal [facility] CNOVon 09-16-2024 CNOV Office Visit (OBGYWM ) SHILPA HOANG ([id number]) 1995 F Date Time Provider Department 09/16/24 2:30 PM HORTENCIA GOULD During your visit today, we recorded the following information about you: Blood pressure Weight Last Period 106/65 73.7 kg 08/19/24 Hortencia Gould APRN.CNP 09/16/2024 5:11 PM Signed Patient declined seaport planning manager. Shilpa presents today for IUD insertion [...] All questions answered to her satisfaction. Hortencia oGuld APRN.KAITLYNN I spent a total of 15 minutes on the date of the service which included preparing to see the patient, [id number]-jnub patient care, completing clinical documentation, obtaining and/or [...] contact the office. Referring Provider: SHARDA VALERO [[id number]] Allergies As of Date: 09/16/2024 Noted Allergy Reaction WALNUT 11/10/2023 10 - Anaphylaxis CORN 11/10/2023 5 - Intolerance SEASONAL ALLERGIES 11/10/2023 3 - Cough Date Reviewed: 09/16/2024 Reviewed by: Hortencia Gould APRN.FACILITY OPERATIONS MANAGER - Fully Assessed Reason for Visit: Insertion Of IUD [291] Primary Visit Diagnosis:Encounter for IUD insertion [Z30.430] Order(s):UA DIP,URINE HCG (POC) [7743547] Order #: [id number]. #:[id number] Prescriptions as of 09/16/2024 - albuterol [...] Status:Closed by HORTENCIA GOULD on 09/16/24 Normal [facility] UA DIP,URINE HCG (POC)on Beta HCG ( test) Ql (U) Negative Negative [facility] Comment on above: Location:[facility], [address], [place], [address] Label Press Operator (POCT) Internal QC [facility] Location:[facility], [address], [place], [address] [facility] POINT OF CARE [facility] CNCOon 08-12-2024 CNCO Letter Text Normal [facility] PAP TESTon 07-29-2024 ADEQUACY Normal [facility] Comment on above: Order Comment: Speci men Type: BLOOD SPECIMEN Ordering Facility: [facility] Address: [facility] [place] [id number] Result Comment: Sati sfactory for interpretation. Obscuring inflammation Performed By: #### M AT21 #### [facility] CLIA [id number] [address] [place] [address] CASE REPORT Normal [facility] Comment on above: Order Comment: Speci men Type: BLOOD SPECIMEN Ordering Facility: [facility] Address: [address] [place] [address] Result Comment: Gyne cologic Cytology Report Case: [id number] Authorizing Provider: Sharda Valero APRN.FACILITY OPERATIONS MANAGER Collected: 07/29/2024 01:48 PM Ordering Location: OB/Gynecology Received: 07/29/2024 04:10 PM First Screen: Aramouni, Ailyn, CT, ASCP Specimen: Pap Test, ThinPrep, Cervix Performed By: #### M AT21 #### [facility] CLIA [id number] [address] [place] [address] CLINICAL HISTORY, CYTOLOGY, CV/CVN CV TSC SYSTEM OPERATOR Normal [facility] Comment on above: Order Comment: Speci men Type: BLOOD SPECIMEN Ordering Facility: [facility] Address: [address] [place] [address] Result Comment: Post (Indicate Weeks) No Menses, Other (Specify) Performed By: #### M AT21 #### [facility] CLIA [id number] [address] [place] [address] CYTOLOGY PAP OTHER INTERPRETATION Trichomonas vaginalis. Normal [facility] Comment on above: Order Comment: Speci men Type: BLOOD SPECIMEN Ordering Facility: [facility] Address: [address] [place] [address] Performed By: #### M AT21 #### [facility] CLIA [id number] [address] [place] [address] FINAL PERFORMING LAB Normal [facility] Comment on above: Order Comment: Speci men Type: BLOOD SPECIMEN Ordering Facility: [facility] Address: [address] [place] [address] Result Comment: Tech nical component, hospice admitting clerk screening performed at [facility], [address] [place], [place] [id number] CLIA# [id number] Diagnostic interpretation performed at [facility], [address] [place] [address] CLIA# [id number] Apigee Developer: Cordell Shields M.D. Performed By: #### M AT21 #### [facility] CLIA [id number] [address] [place] [address] INTERPRETATION, CYTOLOGY, CV/CVN CV TSC SYSTEM OPERATOR Normal [facility] Comment on above: Order Comment: Speci men Type: BLOOD SPECIMEN Ordering Facility: [facility] Address: [address] [place] [address] Result Comment: Nega tive for intraepithelial lesion or malignancy. at 1633 EST Performed By: #### M AT21 #### [facility] CLIA [id number] [address] [place] [address] PAP DISCLAIMER COMMENT The Pap Smear is a screening test for cervical cancer. False negative results occur with all screening tests, emphasizing the need for rescreening at recommended intervals, and clinical correlation. Normal [facility] Comment on above: Order Comment: Speci elyssa Type: BLOOD SPECIMEN Ordering Facility: [facility] Address: [address] [place] [address] Performed By: #### M AT21 #### [facility] CLIA [id number] [address] [place] [address] MR/OB.VAGDELIon 06-18-2024 MR/OB.VAGDELI [facility] Medical Records Department [address] [place] [address] OB VAGINAL DELIVERY 06/18/24 1315 MR#: [id number] Acct: [id number] Name: SHILPA HOANG Rep #: [id number] : 1995 28 From: Margarita Alcala MD PCP: Dr. David Mckinney MD Status:ADM IN Location: [id number] Assessment Plan (1) Gestational hypertension: QUALIFIERS: Trimester: [...] (5 minute): 9 Delayed Cord Clamping: Yes Funeral Director'S Assistant room service bellhop: No Post Vaginal Deli Medications given after delivery: IV Pitocin Episiotomy Description: None Laceration: None Complication Complications: No 06/18/241801 Cosigner Signature (if applicable): CC: RUBINA Turner; Dr. David Mckinney MD; Dr. Margarita Alcala MD Signed Normal [facility] Urine Drug Screen (VISTA)on 06-18-2024 AMPHETAMINES Normal <1000 ng/mL [facility] Comment on above: Result Comment: Canc elled via OM: Ordered Performed By: #### L 505.5000 #### [facility] [address] [place], [address] BARBITIURATES Normal < 200 ng/mL [facility] Comment on above: Result Comment: Canc elled via OM: MD Ordered Performed By: #### L 505.5000 #### [facility] [address] [place], [address] BENZODIAZIPINE Normal < 200 ng/mL [facility] Comment on above: Result Comment: Canc elled via OM: MD Ordered Performed By: #### L 505.5000 #### [facility] [address] [place], [address] COCAINE Normal < 300 ng/mL [facility] Comment on above: Result Comment: Canc elled via OM: MD Ordered Performed By: #### L 505.5000 #### [facility] [address] [place], [address] DRUG CONFIRM Normal [facility] Comment on above: Result Comment: Canc elled via OM: MD Ordered Performed By: #### L 505.5000 #### [facility] [address] [place], [address] ECSTACY Normal < 500 ng/mL [facility] Comment on above: Result Comment: Canc elled via OM: MD Ordered Performed By: #### L 505.5000 #### [facility] [address] [place], [address] METHADONE Normal < 300 ng/mL [facility] Comment on above: Result Comment: Canc elled via OM: MD Ordered Performed By: #### L 505.5000 #### [facility] [address] [place], [address] OPIATES Normal < 300 ng/mL [facility] Comment on above: Result Comment: Canc elled via OM: MD Ordered Performed By: #### L 505.5000 #### [facility] [address] [place], [address] PCP Normal < 25 ng/mL [facility] Comment on above: Result Comment: Canc elled via OM: MD Ordered Performed By: #### L 505.5000 #### [facility] [address] [place], [address] THC Normal < 50 ng/mL [facility] Comment on above: Result Comment: Canc elled via OM: MD Ordered Performed By: #### L 505.5000 #### [facility] [address] [place], [address] VISTA UDS PH Normal [facility] Comment on above: Result Comment: Canc elled via OM: MD Ordered Performed By: #### L 505.5000 #### [facility] [address] [place], [address] AST(SGOT)on 06-17-2024 AST [Catalytic activity/Vol] 13 U/L Low 15-37 [facility] Comment on above: Performed By: #### L 501.4100, L501.0900, L501.1105, L100.0500, L501.1400, L501.4405 #### [facility] [address] [place], [address] Alanine Aminotransferas (SGP T)on 06-17-2024 ALT [Catalytic activity/Vol] 15 U/L Normal 13-56 [facility] Comment on above: Performed By: #### L 501.4100, L501.0900, L501.1105, L100.0500, L501.1400, L501.4405 #### [facility] [address] [place], [address] CBC-Complete Blood Cnt No Di ffon 06-17-2024 Erythrocyte distribution width (RBC) [Ratio] 17.0 % High 11.6-14.6 [facility] Comment on above: Performed By: #### L 501.4100, L501.0900, L501.1105, L100.0500, L501.1400, L501.4405 #### [facility] [address] [place], [address] Hematocrit (Bld) [Volume fraction] 27.7 % Low 37-47 [facility] Comment on above: Performed By: #### L 501.4100, L501.0900, L501.1105, L100.0500, L501.1400, L501.4405 #### [facility] [address] [place], [address] Hemoglobin (Bld) [Mass/Vol] 8.6 g/dL Low 12.0-15.0 [facility] Comment on above: Performed By: #### L 501.4100, L501.0900, L501.1105, L100.0500, L501.1400, L501.4405 #### [facility] [address] [place], [address] MCH (RBC) [Entitic mass] 24.8 pg Low 27.0-32.0 [facility] Comment on above: Performed By: #### L 501.4100, L501.0900, L501.1105, L100.0500, L501.1400, L501.4405 #### [facility] [address] [place] [place], [address] MCHC (RBC) [Mass/Vol] 31.0 g/dL Low 32-36 [facility] Comment on above: Performed By: #### L 501.4100, L501.0900, L501.1105, L100.0500, L501.1400, L501.4405 #### [facility] [address] [place], [address] MCV (RBC) [Entitic vol] 79.8 fL Low 81-99 [facility] Comment on above: Performed By: #### L 501.4100, L501.0900, L501.1105, L100.0500, L501.1400, L501.4405 #### [facility] [address] [place], [address] Platelet mean volume (Bld) [Entitic vol] 12.5 fL High 6.2-12.0 [facility] Comment on above: Performed By: #### L 501.4100, L501.0900, L501.1105, L100.0500, L501.1400, L501.4405 #### [facility] [address] [place], [address] Platelets (Bld) [#/Vol] 143 10*3/uL Low 150-450 [facility] Comment on above: Performed By: #### L 501.4100, L501.0900, L501.1105, L100.0500, L501.1400, L501.4405 #### [facility] [address] [place], [address] RBC (Bld) [#/Vol] 3.47 10*6/uL Low 4.2-5.4 [facility] Comment on above: Performed By: #### L 501.4100, L501.0900, L501.1105, L100.0500, L501.1400, L501.4405 #### [facility] [address] [place], [address] RDW SD 48.8 fl High 35.1-43.9 [facility] Comment on above: Performed By: #### L 501.4100, L501.0900, L501.1105, L100.0500, L501.1400, L501.4405 #### [facility] [address] [place], [address] WBC (Bld) [#/Vol] 10.8 10*3/uL Normal 4.4-11.0 [facility] Comment on above: Performed By: #### L 501.4100, L501.0900, L501.1105, L100.0500, L501.1400, L501.4405 #### [facility] [address] [place], [address] Erythrocyte distribution wid th (RBC) [Ratio]Ordered By: Johana Turner on 06-17-2024 Erythrocyte distribution width (RBC) [Entitic vol] 48.8 fL High 35.1-43.9 [facility] Erythrocyte distribution wid th ratioOrdered By: Johana Turner on 06-17-2024 Erythrocyte distribution width (RBC) [Ratio] 17.0 % High 11.6-14.6 [facility] Estimated glomerular filtrat ion rate (GFR) AmericanOrdered By: Johana Turner on 06-17-2024 Estimated GFR (MDRD) Amer 198 mL/min >60 [facility] Comment on above: GFR Calc Estimation of creatinine morgan aranceOrdered By: Johana Turenr on 06-17-2024 Estimated Creatinine Clearance Calc 191.32 ml/min [facility] Glomerular filtration rate ( GFR) estimationOrdered By: Johana Turner on 06-17-2024 Estimated GFR (MDRD) Non-Af Amer 164 mL/min >60 [facility] Comment on above: Non- GFR Calc H AND P Exam - OB/GYNon 05-24 H&P Exam - CDC ASSOCIATE [facility] Medical Records Department [address] [place] [address] H P Exam - CDC ASSOCIATE 06/17/24 1705 MR#: [id number] Acct: [id number] Name: SHILPA HOANG Rep #: [id number] : 1995 28 From: Johana Turner CNNilda PCP: Dr. David Mckinney MD Status:ADM IN Location: [id number] HPI - General General Date of Admission: 06/17/24 HPI Narrative SHILPA HOANG, is a 28 F who presents from the office for elevated blood pressures. Maternal Data Information JANE Calculator Estimated Delivery Date Method Current WG Current Estimate 07/04/24 Manual 37w 4d PFSH PFS Medical History (Updated 06/17/24 @ 17:08 by Johana Turner CNM) Depression Family history of hearing loss at age younger than 7 years Gestational HTN Stillborn, normal History of placental abruption Trauma depression Anxiety Cervical myofascial strain (spontaneous vaginal delivery) Home Medications ???Medication ???Instructions ???Recorded ???Last Taken ???Type sosrzplh-bns-Vx-FA 1 mg 1 tab PO DAILY 09/13/21 [...] Date Name GA/Weeks Outcome Route Bth Weight Gen Labor Lgth Anesthesia Del Locatn Provider FOB 02/09/17 Piper 41 live - full term [id number] Female 19 epidural [facility] [...] Pressure BP (more content not included)... Normal [facility] Hematocrit Auto (Bld) [Volum e fraction]Ordered By: Johana Turner on 06-17-2024 Hematocrit (Bld) [Volume fraction] 27.7 % Low 37-47 [facility] Hemoglobin measurementOrdere d By: Joahna Turner on 06-17-2024 Hemoglobin (Bld) [Mass/Vol] 8.6 g/dL Low 12.0-15.0 [facility] L509.8000on 06-17-2024 Syphilis Abs Non-Reactive Normal [facility] Comment on above: Performed By: #### L 501.4100, L501.0900, L501.1105, L100.0500, L501.1400, L501.4405 #### [facility] [address] [place], [address] Laboratory - Chemistry and C hemistry - challengeOrdered By: Johana Turner on 06-17-2024 AST [Catalytic activity/Vol] 13 U/L Low 15-37 [facility] MCV (mean corpuscular volume ) determinationOrdered By: Johana Turner on 06-17-2024 MCV (RBC) [Entitic vol] 79.8 fL Low 81-99 [facility] Mean corpuscular hemoglobin (MCH) determinationOrdered By: Johana Turner on 06-17-2024 MCH (RBC) [Entitic mass] 24.8 pg Low 27.0-32.0 [facility] Mean corpuscular hemoglobin concentration (MCHC) determinationOrdered By: Johana Turner on 06-17-2024 MCHC (RBC) [Mass/Vol] 31.0 g/dL Low 32-36 [facility] Mean platelet volume determi nationOrdered By: Johana Turner on 06-17-2024 Platelet mean volume (Bld) [Entitic vol] 12.5 fL High 6.2-12.0 [facility] Methadone, urineOrdered By: Johana Turner on 06-17-2024 Urine Methadone Screen Negative < 300 ng/mL [facility] No Panel InformationOrdered By: Johana Turner on 06-17-2024 Urine Drug Screen Comment [facility] Comment on above: CONFIRMATORY TESTING FOR ALL POSITIVE URINE DRUG SCREENRESULTS WILL ONLY BE SENT OUT UPON PHYSICIAN ORDER. VISTA Urine Drug Screen methods provide only preliminaryanalytical test results. A more specific alternate chemicalmethod must be used in order to obtain a confirmedanalytical result. Gas chromatography/mass spectrometery(GC/MS) is the preferred confirmatory method. Clinicaluniversity of missouri children's hospitalsideration and professional judgement should be appliedto any drug of abuse test result, particularly whenpreliminary positive results are used. URINE TCA TESTING MUST BE ORDERED SEPARATELY. USE TESTMNEMONIC: UTCA Platelet countOrdered By: Alanna Turner on 06-17-2024 Platelets (Bld) [#/Vol] 143 10*3/uL Low 150-450 [facility] Protein+Creatinine Ratio,Uri neon 06-17-2024 PROT:CRE RATIO 218 mg/g CRE High 0-200 [facility] Comment on above: Performed By: #### L 501.4100, L501.0900, L501.1105, L100.0500, L501.1400, L501.4405 #### [facility] [address] [place], [address] Protein (U) [Mass/Vol] 30.5 mg/dL High <11.9 [facility] Comment on above: Performed By: #### L 501.4100, L501.0900, L501.1105, L100.0500, L501.1400, L501.4405 #### [facility] [address] [place], [address] UR CREAT 140.00 mg/dL Normal NO RANGE EST. [facility] Comment on above: Performed By: #### L 501.4100, L501.0900, L501.1105, L100.0500, L501.1400, L501.4405 #### [facility] [address] [place], [address] Protein/Creatinine (U) [Mass ratio]Ordered By: Johana Turner on 06-17-2024 Urine Protein/Creatinine Ratio 218 mg/g CRE High 0-200 [facility] Quantitative urine opiates m easurementOrdered By: Johana Turner on 06-17-2024 Opiates Ql (U) Negative < 300 ng/mL [facility] RBC Auto (Bld) [#/Vol]Ordere d By: Johana Turner on 06-17-2024 RBC (Bld) [#/Vol] 3.47 10*6/uL Low 4.2-5.4 [facility] Random urine protein measure mentOrdered By: Johana Turner on 06-17-2024 Protein (U) [Mass/Vol] 30.5 mg/dL High 0.0-11.8 [facility] Serum Creatinine AND GFRon 1 08-18-2023 Creatinine [Mass/Vol] 0.48 mg/dL Low 0.55-1.02 [facility] Comment on above: Result Comment: The validity of the calculated GFR GFRAA in patients over 70 years has not been determined. Clinical correlation is essential. Performed By: #### L 501.4100, L501.0900, L501.1105, L100.0500, L501.1400, L501.4405 #### [facility] [address] [place], [address] ECRCL 191.32 ml/min Normal [facility] Comment on above: Performed By: #### L 501.4100, L501.0900, L501.1105, L100.0500, L501.1400, L501.4405 #### [facility] [address] [place], [address] EST GFR - AA 198 mL/min Normal >60 [facility] Comment on above: Result Comment: Afri can [place]ib[place]ian GFR Calc Performed By: #### L 501.4100, L501.0900, L501.1105, L100.0500, L501.1400, L501.4405 #### [facility] [address] [place], [address] GFR/1.73 sq M.predicted among non-blacks MDRD (S/P/Bld) [Vol rate/Area] 164 mL/min/{1.73_m2} Normal >60 [facility] Comment on above: Result Comment: Non- GFR Calc Performed By: #### L 501.4100, L501.0900, L501.1105, L100.0500, L501.1400, L501.4405 #### [facility] [address] [place], [address] Serum or plasma alanine rivero otransferase (ALT) measurementOrdered By: Johana Turner on 06-17-2024 ALT [Catalytic activity/Vol] 15 U/L 13-56 [facility] Serum or plasma creatinine m easurement (mass/volume)Ordered By: Johana Turner on 06-17-2024 Creatinine [Mass/Vol] 0.48 mg/dL Low 0.55-1.02 [facility] Comment on above: The validity of the calculated GFR & GFRAA in patients over 70 years has not been determined. Clinical correlation is essential. Serum or plasma uric acid me asurement (mass/volume)Ordered By: Johana Turner on 06-17-2024 Urate [Mass/Vol] 4.2 mg/dL 2.6-6.0 [facility] Comment on above: The drugs N-Acetylcy steine and Metamizole may falsely depress this assay. Treponema sp Ab Ql (S)Ordere d By: Soy Cassidy on 06-17-2024 Syphilis Total Antibody Non-Reactive [facility] Type AND Screenon 06-17-2024 ABO and Rh group Nom (Bld) Blood group A Rh(D) positive Normal [facility] Comment on above: Order Comment: Labor Performed By: #### L 501.4100, L501.0900, L501.1105, L100.0500, L501.1400, L501.4405 #### [facility] [address] [place], [place], [address] URINE OB DIP B/Oon Glucose Ql (U) Negative Neg mg/dL [facility] Protein.monoclonal (U) [Mass/Vol] Negative Neg mg/dL [facility] Uric Acidon 06-17-2024 URIC 4.2 mg/dL Normal 2.6-6.0 [facility] Comment on above: Result Comment: The drugs N-Acetylcysteine and Metamizole may falsely depress this assay. Performed By: #### L 501.4100, L501.0900, L501.1105, L100.0500, L501.1400, L501.4405 #### [facility] [address] [place], [address] Urine Drug Screen (VISTA)on 06-17-2024 AMPHETAMINES Negative Normal <1000 ng/mL [facility] Comment on above: Order Comment: amphe tamines Performed By: #### L 501.4100, L501.0900, L501.1105, L100.0500, L501.1400, L501.4405 #### [facility] [address] [place], [address] BARBITIURATES Negative Normal < 200 ng/mL [facility] Comment on above: Order Comment: amphe tamines Performed By: #### L 501.4100, L501.0900, L501.1105, L100.0500, L501.1400, L501.4405 #### [facility] [place], [address] BENZODIAZIPINE Negative Normal < 200 ng/mL [facility] Comment on above: Order Comment: amphe tamines Performed By: #### L 501.4100, L501.0900, L501.1105, L100.0500, L501.1400, L501.4405 #### [facility] [place], [address] COCAINE Negative Normal < 300 ng/mL [facility] Comment on above: Order Comment: amphe tamines Performed By: #### L 501.4100, L501.0900, L501.1105, L100.0500, L501.1400, L501.4405 #### [facility] [address] [place], [address] ECSTACY Negative Normal < 500 ng/mL [facility] Comment on above: Order Comment: amphe tamines Performed By: #### L 501.4100, L501.0900, L501.1105, L100.0500, L501.1400, L501.4405 #### [facility] [address] [place], [address] METHADONE Negative Normal < 300 ng/mL [facility] Comment on above: Order Comment: amphe tamines Performed By: #### L 501.4100, L501.0900, L501.1105, L100.0500, L501.1400, L501.4405 #### [facility] [address] [place], [address] OPIATES Negative Normal < 300 ng/mL [facility] Comment on above: Order Comment: amphe tamines Performed By: #### L 501.4100, L501.0900, L501.1105, L100.0500, L501.1400, L501.4405 #### [facility] [place], [address] PCP Negative Normal < 25 ng/mL [facility] Comment on above: Order Comment: amphe tamines Performed By: #### L 501.4100, L501.0900, L501.1105, L100.0500, L501.1400, L501.4405 #### [facility] [address] [place], [address] THC Negative Normal < 50 ng/mL [facility] Comment on above: Order Comment: amphe tamines Performed By: #### L 501.4100, L501.0900, L501.1105, L100.0500, L501.1400, L501.4405 #### [facility] [address] [place], [address] VISTA UDS PH 5 Normal [facility] Comment on above: Order Comment: amphe tamines Performed By: #### L 501.4100, L501.0900, L501.1105, L100.0500, L501.1400, L501.4405 #### [facility] [place], [address] Urine amphetamine measuremen tOrdered By: Johana Turner on 06-17-2024 Amphetamines Ql (U) Negative <1000 ng/mL [facility] Urine barbiturates measureme ntOrdered By: Johana Turner on 06-17-2024 Urine Barbiturates Screen Negative < 200 ng/mL [facility] Urine benzodiazepine levelOr dered By: Johana Turner on 06-17-2024 Benzodiazepines Ql (U) Negative < 200 ng/mL [facility] Urine cocaine levelOrdered B y: Johana Turner on 06-17-2024 Cocaine Ql (U) Negative < 300 ng/mL [facility] Urine creatinine measurement (mass/volume)Ordered By: Johana Turner on 06-17-2024 Creatinine (U) [Mass/Vol] 140.00 mg/dL NO RANGE EST. [facility] Urine cbgfh-1-lesrqaofslldoa abinol (THC) measurementOrdered By: Johana Turner on 06-17-2024 Cannabinoids Screen Ql (U) Negative < 50 ng/mL [facility] Urine methylenedioxymethamph etamine (MDMA) measurementOrdered By: Johana Turner on 06-17-2024 MDMA (Ecstasy) Screen Negative < 500 ng/mL [facility] Urine phencyclidine (PCP) de tectionOrdered By: Johana Turner on 06-17-2024 Phencyclidine Ql (U) Negative < 25 ng/mL [facility] White blood cell (WBC) count Ordered By: Johana Turner on 06-17-2024 WBC (Bld) [#/Vol] 10.8 10*3/uL 4.4-11.0 [facility] CNPKaelyn 06-14-2024 RUTH Telephone (OBGYWM) NATALYASHILPA ([id number]) 1995 F Date Time Provider Department 06/14/24 SARAH HUBER During your visit today, we recorded the following information about you: Jennifer Roldan 06/14/2024 10:30 AM Signed [facility] OB is requesting HANDP to be faxed to [phone]. Margarita Hearn RN 06/14/2024 11:06 AM Signed Faxed via [employer]. Margarita Hearn RN Allergies As of Date: [...] Status:Closed by MARGARITA HEARN on 06/14/24 Normal [facility] Examination level ultrasound on 06-12-2024 [facility] Examination level ultrasound on 06-11-2024 Radiology Study observation (narrative) [facility] ROUTINE, GROUP B ST REP PCRon 06-11-2024 ROUTINE, GROUP B STREP PCR GROUP B STREP PCR: Positive for Group B Streptococcus by PCR. Abnormal [facility] Comment on above: Performed By: #### G BPCR ####[facility] [id number] [place] [address] [place] URINE OB DIP B/Oon Glucose Ql (U) Negative Neg mg/dL [facility] Protein.monoclonal (U) [Mass/Vol] trace Neg mg/dL [facility] FERRITINon 06-05-2024 Ferritin [Mass/Vol] 11.4 ng/mL Low 14.7 - 2 05.1 ng/mL [facility] Ferritin [Mass/Vol]on 2023 Interpretation and review of laboratory results Abnormal [facility] Iron and Iron binding capaci ty panelon 06-05-2024 Interpretation and review of laboratory results Abnormal [facility] Iron [Mass/Vol] 25 ug/dL Low 41 - 186 ug/dL [facility] Iron binding capacity [Mass/Vol] 490 ug/dL High 232 - 386 ug/dL [facility] Iron/TIBC [Molar ratio] 5.1 % Low 15.0 - 57.0 % [facility] Ferritin SerPl-mCncon 2023 Ferritin [Mass/Vol] 11.4 ng/mL Low 14.7-205.1 [facility] Comment on above: Order Comment: Speci men Type: BLOOD SPECIMEN Ordering Facility: [facility] Address: [address] [place] [address] Performed By: #### 2 276-4, 10514-0 #### [facility] CLIA [id number] [address] [place] [address] [place] Iron and Iron binding capaci ty panelon 06-04-2024 Iron [Mass/Vol] 25 ug/dL Low 41-186 [facility] Comment on above: Order Comment: Speci men Type: BLOOD SPECIMEN Ordering Facility: [facility] Address: [address] [place] [address] Performed By: #### 2 276-4, 12227-0 #### [facility] CLIA [id number] [address] [place] [address] [place] Iron binding capacity [Mass/Vol] 490 ug/dL High 232-386 [facility] Comment on above: Order Comment: Speci men Type: BLOOD SPECIMEN Ordering Facility: [facility] Address: [address] [place] [address] Performed By: #### 2 276-4, 05534-1 #### [facility] CLIA [id number] [address] [place] [address] [place] Iron/TIBC [Molar ratio] 5.1 % Low 15.0-57.0 [facility] Comment on above: Order Comment: Speci men Type: BLOOD SPECIMEN Ordering Facility: [facility] Address: [address] [place] [address] Performed By: #### 2 276-4, 34338-1 #### [facility] CLIA [id number] [address] [place] [address] [place] CBC panel Auto (Bld)on 06-03 Erythrocyte distribution width (RBC) [Ratio] 16.8 % High 11.5 - 15.0 % [facility] Hematocrit (Bld) [Volume fraction] 27.9 % Low 36.0 - 46.0 % [facility] Hemoglobin (Bld) [Mass/Vol] 8.8 g/dL Low 11.5 - 15.5 g/dL [facility] Interpretation and review of laboratory results Abnormal [facility] MCH (RBC) [Entitic mass] 26.0 pg 26.0 - 34.0 pg [facility] MCHC (RBC) [Mass/Vol] 31.5 g/dL 30.5 - 36.0 g/dL [facility] MCV (RBC) [Entitic vol] 82.3 fL 80.0 - 100.0 fL [facility] Nucleated RBC (Bld) [#/Vol] NINF [facility] Platelet mean volume (Bld) [Entitic vol] 12.5 fL 9.0 - 12.7 fL [facility] Platelets (Bld) [#/Vol] 123 10*3/uL Low [facility] Comment on above: No clot detected. RBC (Bld) [#/Vol] 3.39 10*6/uL Low 3.90 - 5.2 0 m/uL [facility] WBC (Bld) [#/Vol] 9.56 10*3/uL [facility] Erythrocyte distribution width (RBC) [Ratio] 16.8 % High 11.5-15.0 [facility] Comment on above: Order Comment: Speci men Type: BLOOD SPECIMEN Ordering Facility: [facility] Address: [address] [place] [address] Performed By: #### 2 276-4, 54307-1 #### [facility] CLIA [id number] [address] [place] [address] [place] Hematocrit (Bld) [Volume fraction] 27.9 % Low 36.0-46.0 [facility] Comment on above: Order Comment: Speci men Type: BLOOD SPECIMEN Ordering Facility: [facility] Address: [address] [place] [address] Performed By: #### 2 276-4, 03861-7 #### [facility] CLIA [id number] [address] [place] [address] [place] Hemoglobin (Bld) [Mass/Vol] 8.8 g/dL Low 11.5-15.5 [facility] Comment on above: Order Comment: Speci men Type: BLOOD SPECIMEN Ordering Facility: [facility] Address: [address] [place] [address] Performed By: #### 2 276-4, 81672-7 #### [facility] CLIA [id number] [address] [place] [address] [place] MCH (RBC) [Entitic mass] 26.0 pg Normal 26.0-34.0 [facility] Comment on above: Order Comment: Speci men Type: BLOOD SPECIMEN Ordering Facility: [facility] Address: [address] [place] [address] Performed By: #### 2 276-4, 09845-1 #### [facility] CLIA [id number] [address] [place] [address] [place] MCHC (RBC) [Mass/Vol] 31.5 g/dL Normal 30.5-36.0 [facility] Comment on above: Order Comment: Speci men Type: BLOOD SPECIMEN Ordering Facility: [facility] Address: [address] [place] [address] Performed By: #### 2 276-4, 29016-8 #### [facility] CLIA [id number] [address] [place] [address] [place] MCV (RBC) [Entitic vol] 82.3 fL Normal 80.0-100.0 [facility] Comment on above: Order Comment: Speci men Type: BLOOD SPECIMEN Ordering Facility: [facility] Address: [address] [place] [address] Performed By: #### 2 276-4, 44333-8 #### [facility] CLIA [id number] [address] [place] [address] [place] Nucleated RBC (Bld) [#/Vol] 10*3/uL Normal <0.01 [facility] Comment on above: Order Comment: Speci men Type: BLOOD SPECIMEN Ordering Facility: [facility] Address: [address] [place] [address] Performed By: #### 2 276-4, 66877-0 #### [facility] CLIA [id number] [address] [place] [address] [place] Platelet mean volume (Bld) [Entitic vol] 12.5 fL Normal 9.0-12.7 [facility] Comment on above: Order Comment: Speci men Type: BLOOD SPECIMEN Ordering Facility: [facility] Address: [address] [place] [address] Performed By: #### 2 276-4, 98996-3 #### [facility] CLIA [id number] [address] [place] [address] [place] Platelets (Bld) [#/Vol] 123 10*3/uL Low 150-400 [facility] Comment on above: Order Comment: Speci men Type: BLOOD SPECIMEN Ordering Facility: [facility] Address: [address] [place] [address] Result Comment: No c lot detected. Performed By: #### 2 276-4, 03630-2 #### [facility] CLIA [id number] [address] [place] [address] [place] RBC (Bld) [#/Vol] 3.39 10*6/uL Low 3.90-5.20 [facility] Comment on above: Order Comment: Speci men Type: BLOOD SPECIMEN Ordering Facility: [facility] Address: [address] [place] [address] Performed By: #### 2 276-4, 64755-6 #### [facility] CLIA [id number] [address] [place] [address] [place] WBC (Bld) [#/Vol] 9.56 10*3/uL Normal 3.70-11.00 [facility] Comment on above: Order Comment: Speci men Type: BLOOD SPECIMEN Ordering Facility: [facility] Address: [address] [place] [address] Performed By: #### 2 276-4, 74031-8 #### [facility] CLIA [id number] [address] [place] [address] [place] CNPNon 12-12-2024 CNPN Telephone (OBGYWM) NATALYASHILPA ([id number]) 1995 F Date Time Provider Department 06/03/24 HALLE ORELLANA OBGYWM During your visit today, we recorded the following information about you: Halle Orellana APRN.KAITLYNN 06/03/2024 3:08 PM Signed Hemoglobin 8.8. Blood [...] Date Reviewed: 06/03/2024 Reviewed by: Halle Orellana APRN.FACILITY OPERATIONS MANAGER - Fully Assessed Reason for Visit: Results [95] Primary Visit Diagnosis:Anemia complicating , third trimester [O99.013] Other Visit Diagnosis:Antepartum anemia complicating in third trimester [O99.013] Order(s):BLOOD MANAGEMENT REFERRAL [[id number]] Order #: [id number]: 1 FERRITIN [SQFERR] Order #: [id number] FUTURE IRON AND TIBC [SQIRON] Order #: [id number] FUTURE Prescriptions as of 06/07/2024 - FLUoxetine [...] Status:Closed by KHUSHBOO ABRAHAM on 06/07/24 Normal [facility] URINE OB DIP B/OOrdered By: Alicia Holliday on 06-03-2024 Glucose Ql (U) Negative Neg mg/dL [facility] Interpretation and review of laboratory results Normal [facility] Protein.monoclonal (U) [Mass/Vol] Negative Neg mg/dL [facility] OB Triage Physician Noteon 1 07-29-2023 OB Triage Physician Note Medical Records Department [address] [place] [address] OB Triage Physician Note 05/28/24 1239 MR#: [id number] Acct: [id number] Name: SHILPA HOANG Rep #: [id number] : 1995 28 From: Jeanette Patel MD PCP: Dr. David Mckinney MD Status:DEP KENYI Y Location: [facility] HPI - General General Date of Service: 05/20/24 HPI Narrative SHILPA HOANG, is a 28 F who presents with decreased FM. Maternal Data Information JANE Calculator Estimated Delivery Date Method Current WG Current Estimate 07/04/24 Manual 34w 5d Final JANE: 07/04/24 [facility] Medical History History of placental abruption Trauma depression Anxiety Cervical myofascial strain (spontaneous vaginal delivery) Home Medications ???Medication ???Instructions ???Recorded ???Last Taken ???Type cppeigxl-vzt-Pr-FA 1 mg 1 tab PO DAILY 09/13/21 [...] 02/09/17 Piper 41 live - full term [id number] Female 18 epidural [facility] [place] 11/13/18 Radha 39 live - full term 8lb2oz Female 13 epidural [facility] Be nek[place] NST FHR Rate Baby A [...] Date CC: Dr. David Mckinney MD; Dr. eJanette Patel MD Signed Normal [facility] URINE OB DIP B/Oon Glucose Ql (U) Negative Neg mg/dL [facility] Interpretation and review of laboratory results Normal [facility] Protein.monoclonal (U) [Mass/Vol] Negative Neg mg/dL [facility] Examination level ultrasound on 05-12-2024 [facility] Radiology Study observation (narrative) [facility] CNPNon 04-29-2024 CNPN Telephone (OBGYWM) SHILPA HOANG ([id number]) 1995 F Date Time Provider Department 04/29/24 MARGARITA ALCALA During your visit today, we recorded the following information about you: Nicci Mckeon RN 04/29/2024 9:36 AM Signed Margarita Alcala MD P Wstr Ob-Trigonometry Teacher Pool This patient is also suppose to be weekly NSTs at 32 weeks because of HX of IUFD ([facility] recommended) She was suppose to schedule [...] Status:Closed by NICCI MCKEON on 04/29/24 Normal [facility] Examination level ultrasound on 04-14-2024 [facility] Radiology Study observation (narrative) [facility] Examination level ultrasound on 03-17-2024 [facility] Radiology Study observation (narrative) [facility] Examination level ultrasound on 02-17-2024 Indication [...] 12 oz EFW by: Hadlock (HC-AC-FL) Extended Business Continuity Management Director 5.9 mm CM 2.1 mm <1% Nicolaides [...] normal LVOT view: normal 3-vessel view: normal 4-ymqswu-atshnvh view: normal Heart / Thorax Situs: situs [...] Vilma Farrell M.D. MATERNAL MEDICINE [facility] Radiology Study observation (narrative) [facility] CBC panel Auto (Bld)on 12-31 Erythrocyte distribution width (RBC) [Ratio] 14.2 % 11.5 - 15.0 % [facility] Hematocrit (Bld) [Volume fraction] 37.5 % 36.0 - 46.0 % [facility] Hemoglobin (Bld) [Mass/Vol] 12.4 g/dL 11.5 - 15.5 g/dL [facility] Interpretation and review of laboratory results Normal [facility] MCH (RBC) [Entitic mass] 28.1 pg 26.0 - 34.0 pg [facility] MCHC (RBC) [Mass/Vol] 33.1 g/dL 30.5 - 36.0 g/dL [facility] MCV (RBC) [Entitic vol] 85.0 fL 80.0 - 100.0 fL [facility] Nucleated RBC (Bld) [#/Vol] NINF [facility] Platelet mean volume (Bld) [Entitic vol] 12.1 fL 9.0 - 12.7 fL [facility] Platelets (Bld) [#/Vol] 181 10*3/uL [facility] RBC (Bld) [#/Vol] 4.41 10*6/uL 3.90 - 5.2 0 m/uL [facility] WBC (Bld) [#/Vol] 9.21 10*3/uL [facility] nuchal translucency me asured by on 01-01-2024 Indication First trimester anatomic survey IUFD 26 weeks, Obesity, BMI >30 Impression REMOTE READ The patient is referred for a first trimester anatomy scan including nuchal translucency measurement as clinically indicated. - Single, live, intrauterine . - [place] rump length measurement is consistent with the [...] view: normal 4-chamber view with color: normal 7-zxiymc-ibnxytn view: normal Abdominal cord insertion: normal Stomach: [...] ovary Vol 7.6 cm Performed By: Khushboo Easley RDMS, RVT Read By: Vilma Farrell M.D. MATERNAL MEDICINE [facility] Radiology Study observation (narrative) [facility] C. trachomatis+N. gonorrhoea e DNA OFELIA+probe Ql (Unsp spec)on 11-14-2023 C. trachomatis rRNA OFELIA+probe Ql (Unsp spec) Negative Negative for Chlamydia trachomatis by amplificaton [facility] Interpretation and review of laboratory results Normal [facility] N. gonorrhoeae rRNA OFELIA+probe Ql (Unsp spec) Negative Negative for Neisseria gonorrhoeae by amplification [facility] POC CARD WRITER HAND ULTRASOUNDon 11-13-19 Indication Confirmation of intrauterine . Confirmation of cardiac activity Impression 1. Single, live, intrauterine . 2. An intrauterine gestational sac with a yolk sac and pole are present. 3. [place] rump length measurement is consistent with the [...] MEDICINE [facility] Radiology Study observation (narrative) [facility] Absolute lymphocyte countOrd ered By: Kuldeep Vanegas on 08-10-2023 Lymphocytes Auto (Unsp spec) [#/Vol] 1.57 10*3/uL 0.83-4.51 [facility] Automated lymphocyte count a s percentage of total leukocytesOrdered By: Kuldeep Vanegas on 08-10-2023 Lymphocytes/100 WBC Auto (Unsp spec) 32.8 % 19-41 [facility] Basophil percentageOrdered B y: Kuldeep Vanegas on 08-10-2023 Basophil percentage 5-10 SEEN /hpf 0-5 [facility] Basophils/100 WBC (Bld) 0.6 % 0-1 [facility] Bilirubin [Mass/Vol] 0.30 mg/dL 0.20-1.00 [facility] Comment on above: For patients on eltr ombopag therapy, use of Dimension Shepherd TBIL is not recommended. Chloride [Moles/Vol] 112 mmol/L 98-107 [facility] Eosinophils/100 WBC (Bld) 6.1 % 0-5 [facility] Glucose [Mass/Vol] 85 mg/dL 74-106 [facility] Hemoglobin (Bld) [Mass/Vol] 12.1 g/dL 12.0-15.0 [facility] Monocytes/100 WBC (Bld) 9.4 % 0-10 [facility] Neutrophils (Bld) [#/Vol] 2.4 10*3/uL 2.0-7.7 [facility] Neutrophils/100 WBC (Bld) 50.9 % 47-70 [facility] Potassium [Moles/Vol] 3.8 mmol/L 3.5-5.1 [facility] Protein [Mass/Vol] 7.0 g/dL 6.4-8.2 [facility] Sodium [Moles/Vol] 139 mmol/L 136-145 [facility] WBC (Bld) [#/Vol] 4.8 10*3/uL 4.4-11.0 [facility] Bilirubin Test strip Ql (U)O rdered By: Kuldeep Vanegas on 08-10-2023 Bilirubin Ql (U) Negative Negative [facility] Determination of erythrocyte mean corpuscular volume (MCV)Ordered By: Kuldeep Vanegas on 08-10-2023 MCV (RBC) [Entitic vol] 85.3 fL 81-99 [facility] Erythrocyte distribution wid th ratioOrdered By: Kuldeep Vanegas on 08-10-2023 Erythrocyte distribution width (RBC) [Ratio] 13.1 % 11.6-14.6 [facility] Erythrocyte distribution wid th standard deviationOrdered By: Kuldeep Vanegas on 08-10-2023 Erythrocyte distribution width (RBC) [Entitic vol] 39.9 fL 35.1-43.9 [facility] Hematocrit Auto (Bld) [Volum e fraction]Ordered By: Kuldeep Vanegas on 08-10-2023 Hematocrit (Bld) [Volume fraction] 37.7 % 37-47 [facility] Immature granulocytes/100 WB C Auto (Bld)Ordered By: Kuldeep Vanegas on 08-10-2023 Immature granulocytes/100 WBC (Bld) 0.200 % 0.0-0.9 [facility] Comment on above: IG% - Immature Granu locytes (promyelocytes, myelocytes and metamyelocytes) > 1% indicates that a LEFT SHIFT is Present. Ketones Test strip Ql (U)Ord ered By: Kuldeep Vanegas on 08-10-2023 Ketones Ql (U) Negative Negative [facility] - Chemistry and C hemistry - challengeOrdered By: Kuldeep Vanegas on 08-10-2023 HCG ( test) Ql (U) Negative [facility] Comment on above: Very dilute urine sp ecimens, as indicated by a low specificgravity, may not contain retail field representative levels of hCG. If is still suspected, a first morning urinespecimen should be collected 48 hours later and tested. Albumin/Globulin [Mass ratio] 0.9 {ratio} 0.9-2.4 [facility] ALP [Catalytic activity/Vol] 104 U/L 45-117 [facility] ALT [Catalytic activity/Vol] 46 U/L 13-56 [facility] CO2 [Moles/Vol] 24.0 mmol/L 21.0-32.0 [facility] Globulin (S) [Mass/Vol] 3.7 g/dL 2.2-4.2 [facility] Urea nitrogen/Creatinine [Mass ratio] 15.1 mg/mg 10-20 [facility] - Hematology and Cell countsOrdered By: Kuldeep Vanegas on 08-10-2023 MCH (RBC) [Entitic mass] 27.4 pg 27.0-32.0 [facility] MCHC (RBC) [Mass/Vol] 32.1 g/dL 32-36 [facility] Nucleated RBC/100 WBC (Bld) [Ratio] 0 % 0-5 [facility] Platelet mean volume (Bld) [Entitic vol] 12.2 fL 6.2-12.0 [facility] Platelets (Bld) [#/Vol] 187 10*3/uL 150-450 [facility] - Microbiology an d Antimicrobial susceptibilityOrdered By: Kuldeep Vanegas on 08-10-2023 SARS-CoV-2 (COVID-19) RNA OFELIA+probe Ql (Unsp spec) [facility] Mucus LM Ql (Urine sed)Order ed By: Kuldeep Vanegas on 08-10-2023 Mucus Ql (Urine sed) 0 SEEN /hpf [facility] Nitrite Test strip Ql (U)Ord ered By: Kuldeep Vanegas on 08-10-2023 Nitrite Ql (U) Negative Negative [facility] No Panel InformationOrdered By: Kuldeep Vanegas on 08-10-2023 Urine RBC 0 SEEN /hpf 0-5 [facility] Estimated Creatinine Clearance Calc 155.99 ml/min [facility] Estimated GFR (MDRD) Amer 156 mL/min >60 [facility] Comment on above: GFR Calc Estimated GFR (MDRD) Non-Af Amer 129 mL/min >60 [facility] Comment on above: Non- GFR Calc Protein Test strip Ql (U)Ord ered By: Kuldeep Vanegas on 08-10-2023 Protein Ql (U) Negative Negative [facility] RBC Auto (Bld) [#/Vol]Ordere d By: Kuldeep Vanegas on 08-10-2023 RBC (Bld) [#/Vol] 4.42 10*6/uL 4.2-5.4 [facility] Serum or plasma calcium roopa urement (mass/volume)Ordered By: Kuldeep Vanegas on 08-10-2023 Calcium [Mass/Vol] 8.7 mg/dL 8.5-10.1 [facility] Serum or plasma creatinine m easurement (mass/volume)Ordered By: Kuldeep Vanegas on 08-10-2023 Creatinine [Mass/Vol] 0.60 mg/dL 0.55-1.02 [facility] Comment on above: The validity of the calculated GFR & GFRAA in patients over 70 years has not been determined. Clinical correlation is essential. Serum or plasma urea nitroge n measurement (mass/volume)Ordered By: Kuldeep Vanegas on 08-10-2023 Urea nitrogen [Mass/Vol] 9 mg/dL 7-18 [facility] Squamous epithelial cells de tection in urine sediment by light microscopyOrdered By: Kuldeep Vanegas on 08-10-2023 Epithelial cells.squamous LM Ql (Urine sed) 10-25 SEEN /hpf 5-10 [facility] Thin prep Papanicolaou smear with manual screeningOrdered By: Kuldeep Vanegas on 08-10-2023 Thin prep Papanicolaou smear with manual screening 3.3 g/dL 3.2-5.0 [facility] Thin prep Papanicolaou smear with manual screening 25 U/L 15-37 [facility] Thin prep Papanicolaou smear with manual screening 3 5-15 [facility] Urine blood detectionOrdered By: Kuldeep Vanegas on 08-10-2023 RBC Ql (U) Negative Negative [facility] Urine clarityOrdered By: Iker Vanegas on 08-10-2023 Clarity (U) Sl. Cloudy Clear [facility] Urine color determinationOrd ered By: Kuldeep Vanegas on 08-10-2023 Color (U) Yellow Yellow [facility] Urine glucose detectionOrder ed By: Kuldeep Vanegas on 08-10-2023 Glucose Ql (U) Normal mg/dl Normal [facility] Urine leukocyte esterase det ection by dipstickOrdered By: Kuldeep Vanegas on 08-10-2023 Leukocyte esterase Test strip Ql (U) 500 /ul Negative [facility] Urine pHOrdered By: Kuldeep patel on 08-10-2023 pH (U) 6.0 [pH] 5.0 - 8.0 [facility] Urine sediment bacteria coun t by microscopy (number/high power field)Ordered By: Kuldeep Vanegas on 08-10-2023 Bacteria LM.HPF (Urine sed) [#/Area] 3 /[HPF] None Seen [facility] Urine specific gravity measu rementOrdered By: Kuldeep Vanegas on 08-10-2023 Specific gravity (U) [Rel density] 1.015 1.002-1.030 [facility] Urine urobilinogen measureme ntOrdered By: Kuldeep Vanegas on 08-10-2023 Urobilinogen Ql (U) 1 mg/dl Normal [facility] Absolute lymphocyte countOrd ered By: Dvaid Mckinney on 07-04-2023 Lymphocytes Auto (Unsp spec) [#/Vol] 2.38 10*3/uL 0.83-4.51 [facility] Basophil percentageOrdered B y: David Mckinney on 07-04-2023 Basophil percentage 5-10 SEEN /hpf 0-5 [facility] Basophils/100 WBC (Bld) 0.8 % 0-1 [facility] Eosinophils/100 WBC (Bld) 7.3 % 0-5 [facility] Neutrophils (Bld) [#/Vol] 6.4 10*3/uL 2.0-7.7 [facility] Neutrophils/100 WBC (Bld) 63.4 % 47-70 [facility] WBC (Bld) [#/Vol] 10.1 10*3/uL 4.4-11.0 [facility] Beta hCG serum qualOrdered B y: David Mckinney on 07-04-2023 Beta HCG ( test) Ql Negative [facility] Bilirubin Test strip Ql (U)O rdered By: David Mckinney on 01-12-2024 Bilirubin Ql (U) Negative Negative [facility] Blood erythrocytes count (nu mber/volume)Ordered By: David Mckinney on 07-04-2023 RBC (Bld) [#/Vol] 4.70 10*6/uL 4.2-5.4 [facility] Blood hemoglobin measurement (mass/volume)Ordered By: David Mckinney on 07-04-2023 Hemoglobin (Bld) [Mass/Vol] 13.1 g/dL 12.0-15.0 [facility] Blood lymphocytes/100 leukoc ytesOrdered By: David Mckinney on 07-04-2023 Lymphocytes/100 WBC (Bld) 23.5 % 19-41 [facility] Blood monocytes/100 leukocyt esOrdered By: David Mckinney on 07-04-2023 Monocytes/100 WBC (Bld) 4.6 % 0-10 [facility] Blood platelet mean volumeOr dered By: David Mckinney on 07-04-2023 Platelet mean volume (Bld) [Entitic vol] 12.6 fL 6.2-12.0 [facility] Culture, urineOrdered By: Davidson Mckinney on 07-04-2023 Bacteria identified Cx Nom (U) Escherichia coli [facility] Determination of erythrocyte mean corpuscular volume (MCV)Ordered By: David Mckinney on 07-04-2023 MCV (RBC) [Entitic vol] 88.3 fL 81-99 [facility] Hematocrit Auto (Bld) [Volum e fraction]Ordered By: David Mckinney on 07-04-2023 Hematocrit (Bld) [Volume fraction] 41.5 % 37-47 [facility] Ketones Test strip Ql (U)Ord ered By: David Mckinney on 07-04-2023 Ketones Ql (U) Negative Negative [facility] Laboratory - Hematology and Cell countsOrdered By: David Mckinney on 07-04-2023 Erythrocyte distribution width (RBC) [Entitic vol] 40.8 fL 35.1-43.9 [facility] Erythrocyte distribution width (RBC) [Ratio] 12.5 % 11.6-14.6 [facility] Immature granulocytes/100 WBC (Bld) 0.400 % 0.0-0.9 [facility] Comment on above: IG% - Immature Granu locytes (promyelocytes, myelocytes and metamyelocytes) > 1% indicates that a LEFT SHIFT is Present. MCH (RBC) [Entitic mass] 27.9 pg 27.0-32.0 [facility] Nucleated RBC/100 WBC (Bld) [Ratio] 0 % 0-5 [facility] MCHC Auto (RBC) [Mass/Vol]Or dered By: David Mckinney on 07-04-2023 MCHC (RBC) [Mass/Vol] 31.6 g/dL 32-36 [facility] Mucus LM Ql (Urine sed)Order ed By: David Mckinney on 07-04-2023 Mucus Ql (Urine sed) 0 SEEN /hpf [facility] Nitrite Test strip Ql (U)Ord ered By: David Mckinney on 07-04-2023 Nitrite Ql (U) Positive Negative [facility] Platelets bldOrdered By: Maya Mckinney on 07-04-2023 Platelets (Bld) [#/Vol] 218 10*3/uL 150-450 [facility] Protein Test strip Ql (U)Ord ered By: David Mckinney on 07-04-2023 Protein Ql (U) Negative Negative [facility] Serum or plasma progesterone measurement (mass/volume)Ordered By: David Mckinney on 07-04-2023 Progesterone [Mass/Vol] 2.17 ng/mL See Comment [facility] Comment on above: Progesterone Referen ce [...] Ql (Urine sed) 5-10 SEEN /hpf 5-10 [facility] Urine blood detectionOrdered By: David Mckinney on 07-04-2023 RBC Ql (U) 10 /ul Negative [facility] RBC Ql (U) 0 SEEN /hpf 0-5 [facility] Urine clarityOrdered By: Maya Mckinney on 07-04-2023 Clarity (U) Cloudy Clear [facility] Urine color determinationOrd ered By: David Mckinney on 07-04-2023 Color (U) Yellow Yellow [facility] Urine glucose detectionOrder ed By: David Mckinney on 07-04-2023 Glucose Ql (U) Normal mg/dl Normal [facility] Urine leukocyte esterase det ection by dipstickOrdered By: David Mckinney on 07-04-2023 Leukocyte esterase Test strip Ql (U) 100 /ul Negative [facility] Urine pHOrdered By: David aviles on 07-04-2023 pH (U) 6.0 [pH] 5.0 - 8.0 [facility] Urine sediment bacteria coun t by microscopy (number/high power field)Ordered By: David Mckinney on 07-04-2023 Bacteria LM.HPF (Urine sed) [#/Area] 3 /[HPF] None Seen [facility] Urine specific gravity measu rementOrdered By: David Mckinney on 07-04-2023 Specific gravity (U) [Rel density] 1.015 1.002-1.030 [facility] Urobilinogen Auto test strip Ql (U)Ordered By: Daivd Mckinney on 07-04-2023 Urobilinogen Ql (U) Normal mg/dl Normal [facility] Beta hCG serum qualOrdered B y: Alex Dubois on 06-10-2023 Beta HCG ( test) Ql Negative [facility] Influenza virus A and B and SARS-CoV-2 (COVID-19) Ag panel - Upper respiratory specimOrdered By: Chantal Perez on 05-11-2023 SARS-CoV-2 (COVID-19) RNA OFELIA+probe Ql (Resp) [facility] Upper respiratory specimen i nfluenza A virus, influenza B virus, and severe acute respiratory syndromOrdered By: Chantal Perez on 05-11-2023 Upper respiratory specimen influenza A virus, influenza B virus, and severe acute respiratory syndrom [facility] Absolute lymphocyte countOrd ered By: David Mckinney on 05-01-2023 Lymphocytes Auto (Unsp spec) [#/Vol] 2.12 10*3/uL 0.83-4.51 [facility] Basophil percentageOrdered B y: David Mckinney on 05-01-2023 Basophils/100 WBC (Bld) 0.9 % 0-1 [facility] Bilirubin [Mass/Vol] 0.30 mg/dL 0.20-1.00 [facility] Comment on above: For patients on eltr ombopag therapy, use of Dimension Shepherd TBIL is not recommended. Chloride [Moles/Vol] 106 mmol/L 98-107 [facility] Eosinophils/100 WBC (Bld) 5.4 % 0-5 [facility] Glucose [Mass/Vol] 90 mg/dL 74-106 [facility] Neutrophils (Bld) [#/Vol] 4.3 10*3/uL 2.0-7.7 [facility] Neutrophils/100 WBC (Bld) 58.5 % 47-70 [facility] Potassium [Moles/Vol] 3.7 mmol/L 3.5-5.1 [facility] Protein [Mass/Vol] 7.8 g/dL 6.4-8.2 [facility] Sodium [Moles/Vol] 138 mmol/L 136-145 [facility] WBC (Bld) [#/Vol] 7.4 10*3/uL 4.4-11.0 [facility] Blood erythrocytes count (nu mber/volume)Ordered By: David Mckinney on 05-01-2023 RBC (Bld) [#/Vol] 4.73 10*6/uL 4.2-5.4 [facility] Blood hemoglobin measurement (mass/volume)Ordered By: David Mckinney on 05-01-2023 Hemoglobin (Bld) [Mass/Vol] 13.1 g/dL 12.0-15.0 [facility] Blood lymphocytes/100 leukoc ytesOrdered By: David Mckinney on 05-01-2023 Lymphocytes/100 WBC (Bld) 28.7 % 19-41 [facility] Blood monocytes/100 leukocyt esOrdered By: David Mckinney on 05-01-2023 Monocytes/100 WBC (Bld) 6.2 % 0-10 [facility] Blood platelet mean volumeOr dered By: David Mckinney on 05-01-2023 Platelet mean volume (Bld) [Entitic vol] 13.0 fL 6.2-12.0 [facility] Determination of erythrocyte mean corpuscular volume (MCV)Ordered By: David Mckinney on 05-01-2023 MCV (RBC) [Entitic vol] 88.8 fL 81-99 [facility] Hematocrit Auto (Bld) [Volum e fraction]Ordered By: David Mckinney on 05-01-2023 Hematocrit (Bld) [Volume fraction] 42.0 % 37-47 [facility] Laboratory - Chemistry and C hemistry - challengeOrdered By: David Mckinney on 05-01-2023 ALP [Catalytic activity/Vol] 95 U/L 45-117 [facility] ALT [Catalytic activity/Vol] 33 U/L 13-56 [facility] CO2 [Moles/Vol] 26.0 mmol/L 21.0-32.0 [facility] Globulin (S) [Mass/Vol] 3.9 g/dL 2.2-4.2 [facility] Urea nitrogen/Creatinine [Mass ratio] 25.6 mg/mg 10-20 [facility] Laboratory - Hematology and Cell countsOrdered By: David Mckinney on 05-01-2023 Erythrocyte distribution width (RBC) [Entitic vol] 41.9 fL 35.1-43.9 [facility] Erythrocyte distribution width (RBC) [Ratio] 12.8 % 11.6-14.6 [facility] Immature granulocytes/100 WBC (Bld) 0.300 % 0.0-0.9 [facility] Comment on above: IG% - Immature Granu locytes (promyelocytes, myelocytes and metamyelocytes) > 1% indicates that a LEFT SHIFT is Present. MCH (RBC) [Entitic mass] 27.7 pg 27.0-32.0 [facility] Nucleated RBC/100 WBC (Bld) [Ratio] 0 % 0-5 [facility] MCHC Auto (RBC) [Mass/Vol]Or dered By: David Mckinney on 05-01-2023 MCHC (RBC) [Mass/Vol] 31.2 g/dL 32-36 [facility] No Panel InformationOrdered By: David Mckinney on 05-01-2023 Estimated GFR (MDRD) Amer 129 mL/min >60 [facility] Comment on above: GFR Calc Estimated GFR (MDRD) Non-Af Amer 107 mL/min >60 [facility] Comment on above: Non- GFR Calc Thyroid Stimulating Hormone (TSH) 0.63 uIU/mL 0.358-3.74 [facility] Platelets bldOrdered By: Maya Mckinney on 05-01-2023 Platelets (Bld) [#/Vol] 215 10*3/uL 150-450 [facility] Serum or plasma albumin roopa urement (mass/volume)Ordered By: David Mckinney on 05-01-2023 Albumin [Mass/Vol] 3.9 g/dL 3.2-5.0 [facility] Serum or plasma albumin/glob ulin mass ratioOrdered By: David Mckinney on 05-01-2023 Albumin/Globulin [Mass ratio] 1.0 {ratio} 0.9-2.4 [facility] Serum or plasma calcium roopa urement (mass/volume)Ordered By: David Mckinney on 05-01-2023 Calcium [Mass/Vol] 8.8 mg/dL 8.5-10.1 [facility] Serum or plasma creatinine m easurement (mass/volume)Ordered By: David Mckinney on 05-01-2023 Creatinine [Mass/Vol] 0.70 mg/dL 0.55-1.02 [facility] Comment on above: The validity of the calculated GFR & GFRAA in patients over 70 years has not been determined. Clinical correlation is essential. Serum or plasma prolactin me asurement (mass/volume)Ordered By: David Mckinney on 05-01-2023 Prolactin [Mass/Vol] 17.6 ng/mL [facility] Comment on above: NORMAL REFERENCE RAN GES FEMALE NON- 2.2 - 30.3 ng/mL 8.1 - 347.6 ng/mL POST-MENOPAUSAL 0.7 - 31.5 ng/mL MALE 2.5 - 17.4 ng/mL Serum or plasma urea nitroge n measurement (mass/volume)Ordered By: David Mckinney on 05-01-2023 Urea nitrogen [Mass/Vol] 18 mg/dL 7-18 [facility] Thin prep Papanicolaou smear with manual screeningOrdered By: David Mckinney on 05-01-2023 Thin prep Papanicolaou smear with manual screening 12 U/L 15-37 [facility] Thin prep Papanicolaou smear with manual screening 6 5-15 [facility] Absolute lymphocyte countOrd ered By: David Mckinney on 03-12-2023 Lymphocytes Auto (Unsp spec) [#/Vol] 1.89 10*3/uL 0.83-4.51 [facility] Alternaria alternata IgE ser umOrdered By: David Mckinney on 03-12-2023 A. alternata IgE Qn (S) <0.10 kU/L Class 0 [facility] A. alternata IgE Qn (S) Not Reportable [facility] Basophil percentageOrdered B y: David Mckinney on 03-12-2023 Basophils/100 WBC (Bld) 0.7 % 0-1 [facility] Eosinophils/100 WBC (Bld) 4.7 % 0-5 [facility] Neutrophils (Bld) [#/Vol] 3.4 10*3/uL 2.0-7.7 [facility] Neutrophils/100 WBC (Bld) 56.4 % 47-70 [facility] WBC (Bld) [#/Vol] 6.0 10*3/uL 4.4-11.0 [facility] Blood erythrocytes count (nu mber/volume)Ordered By: David Mckinney on 03-12-2023 RBC (Bld) [#/Vol] 4.94 10*6/uL 4.2-5.4 [facility] Blood hemoglobin measurement (mass/volume)Ordered By: David Mckinney on 03-12-2023 Hemoglobin (Bld) [Mass/Vol] 13.3 g/dL 12.0-15.0 [facility] Blood lymphocytes/100 leukoc ytesOrdered By: David Mckinney on 03-12-2023 Lymphocytes/100 WBC (Bld) 31.8 % 19-41 [facility] Blood monocytes/100 leukocyt esOrdered By: David Mckinney on 03-12-2023 Monocytes/100 WBC (Bld) 6.2 % 0-10 [facility] Blood platelet mean volumeOr dered By: David Mckinney on 03-12-2023 Platelet mean volume (Bld) [Entitic vol] 12.7 fL 6.2-12.0 [facility] Chocolate RASTOrdered By: Davidson Mckinney on 03-12-2023 Chocolate IgE Qn (S) <0.10 kU/L Class 0 [facility] Comment on above: Effective March 24, 2023 [id number] Allergen Profile, BasicFood be made non-orderable. [facility] offers [id number](14). Determination of erythrocyte mean corpuscular volume (MCV)Ordered By: David Mckinney on 03-12-2023 MCV (RBC) [Entitic vol] 86.0 fL 81-99 [facility] Hematocrit Auto (Bld) [Volum e fraction]Ordered By: David Mckinney on 03-12-2023 Hematocrit (Bld) [Volume fraction] 42.5 % 37-47 [facility] Laboratory - AllergyOrdered By: David Mckinney on 03-12-2023 Sweet gum IgE RAST class (S) <0.10 kU/L Class 0 [facility] Laboratory - Hematology and Cell countsOrdered By: David Mckinney on 03-12-2023 Erythrocyte distribution width (RBC) [Entitic vol] 40.7 fL 35.1-43.9 [facility] Erythrocyte distribution width (RBC) [Ratio] 13.1 % 11.6-14.6 [facility] Immature granulocytes/100 WBC (Bld) 0.200 % 0.0-0.9 [facility] Comment on above: IG% - Immature Granu locytes (promyelocytes, myelocytes and metamyelocytes) > 1% indicates that a LEFT SHIFT is Present. MCH (RBC) [Entitic mass] 26.9 pg 27.0-32.0 [facility] Nucleated RBC/100 WBC (Bld) [Ratio] 0 % 0-5 [facility] Laboratory - Miscellaneous t estsOrdered By: David Mckinney on 03-12-2023 Service comment (Unsp spec) [Interp] Comment . [facility] Comment on above: Levels of Specific [...] 03-12-2023 MCHC (RBC) [Mass/Vol] 31.3 g/dL 32-36 [facility] No Panel InformationOrdered By: David Mckinney on 03-12-2023 Aspergillus fumigatus Allergen <0.10 kU/L Class 0 [facility] Common Ragweed (Short) Allergen <0.10 kU/L Class 0 [facility] Syrian Plantain Allergen (RAST) <0.10 kU/L Class 0 [facility] Maple (Piqua) Allergen IgE Ab 0.27 kU/L Class 0/I [facility] Seafood Group Allergens (RAST) Negative . [facility] Comment on above: Allergens in this mi x are: Blue mussel Fish [place] Shrimp TunaEffective March 24, 2023 [id number] Food Mix(Seafoods) will be made non-orderable. [facility] [id number] Allergens(5). [place] Tree Allergen <0.10 kU/L Class 0 [facility] Cat Hair Allergen Not Reportable [facility] Immunoglobulin E See comment [facility] Comment on above: TEST RESULT LIMITSCl ass Description: Levels of Specific IgE Class Description of Class ----- < 0.10 0 Negative 0.10 - 0.31 0/I Equivocal/Low 0.32 - 0.55 I Low 0.56 - 1.40 II Moderate 1.41 - 3.90 III High 3.91 - 19.00 IV Very High19.01 - 100.00 V Very High >100.00 Very NgrlG268-CaN D pteronyssinus <0.10 kU/L Class 4A885-ImX D farinae <0.10 kU/L Class 4D374-EnA Cat Dander <0.10 kU/L Class 2M874-KvZ Dog Dander <0.10 kU/L Class 8F000-LcM Bermuda Grass 0.11 Abnormal kU/L Class 0/IK104-AhY [place] Grass, Perennial <0.10 kU/L Class 1R592-ZkF Reece Grass 0.10 Abnormal kU/L Class 0/LY031-JlB Bahia Grass <0.10 kU/L Class 0*D793-QuE Cockroach, [place]ib[place]ian <0.10 kU/L Class 8E450-QyQ Penicillium chrysogen <0.10 kU/L Class 5B593-LgV Cladosporium herbarum <0.10 kU/L Class 1A696-TxY Aspergillus fumigatus <0.10 kU/L Class 6U347-OqU Mucor racemosus <0.10 kU/L Class 1F630-TwS Alternaria alternata <0.10 kU/L Class 0Y684-YeV Stemphylium herbarum <0.10 kU/L Class 7J166-XtL Elm, Djiboutian 0.27 Abnormal kU/L Class 0/GB605-DnW Eucalyptus <0.10 kU/L Class 1E672-QfR Maple/Piqua 0.37 Abnormal kU/L Class ZO011-VpZ [place], Panamanian <0.10 kU/L Class 0*Y623-IwS Pepper Tree 0.20 Abnormal kU/L Class 0/I*N675-ArO [place], Live/Radha <0.10 kU/L Class 2Y767-LiE Privet, Common <0.10 kU/L Class 0*T092-JoH [place]/Sweet Gale <0.10 kU/L Class 7W660-GbJ Palm, Batista <0.10 kU/L Class 1B015-MqR Ragweed, Short 0.11 Abnormal kU/L Class 0/ML215-MnI Plantain, Syrian <0.10 kU/L Class 7R114-GkG [place] <0.10 kU/L Class 5L282-XsX Sheep [place] <0.10 kU/L Class 0*U945-UqU Fennel, Dog <0.10 kU/L Class 0Tests with asterisk (*) were developed and had performancecharacteristics determined by [facility]. These tests have not been cleared or approved by the U.S. Food and Drug Administration.The FDA has determined that such clearance or approval is notnecessary. These tests are used for clinical purposes. These tests should not be regarded as investigational or for research. ____ TESTING PERFORMED AT [facility]. ORIGINAL REPORT ON FILE IN LAB CONTAINS ADDITIONAL TEST SITE INFORMATION. Mouse Urine Allergen IgE Antibody Not Reportable [facility] Platelets bldOrdered By: Maya Mckinney on 03-12-2023 Platelets (Bld) [#/Vol] 183 10*3/uL 150-450 [facility] Rough pigweed specific IgE a ntibody assayOrdered By: David Mckinney on 03-12-2023 Rough Pigweed IgE Qn (S) <0.10 kU/L Class 0 [facility] Serum Aspergillus fumigatus IgE antibody assay (units/volume)Ordered By: David Mckinney on 03-12-2023 A. fumigatus IgE Qn (S) Not Reportable [facility] Serum Bermuda grass IgE anti body assay (units/volume)Ordered By: David Mckinney on 03-12-2023 Bermuda grass IgE Qn (S) 0.12 kU/L Class 0/I [facility] Bermuda grass IgE Qn (S) Not Reportable [facility] Serum Cladosporium herbarum IgE antibody assay (units/volume)Ordered By: David Mckinney on 03-12-2023 C. herbarum IgE Qn (S) <0.10 kU/L Class 0 [facility] C. herbarum IgE Qn (S) Not Reportable [facility] Serum Dermatophagoides farin ae specific IgE antibody assay (units/volume)Ordered By: David Mckinney on 03-12-2023 Djib[place]ian house dust mite IgE Qn (S) <0.10 kU/L Class 0 [facility] Serum house dust mi te IgE antibody assay (units/volume)Ordered By: David Mckinney on 03-12-2023 house dust mite IgE Qn (S) <0.10 kU/L Class 0 [facility] house dust mite IgE Qn (S) Not Reportable [facility] Serum Reece grass IgE anti body assay (units/volume)Ordered By: David Mckinney on 03-12-2023 Reece grass IgE Qn (S) 0.12 kU/L Class 0/I [facility] Serum [place] blue grass Ig E antibody assay (units/volume)Ordered By: David Mckinney on 03-12-2023 [place] blue grass IgE Qn (S) <0.10 kU/L Class 0 [facility] Serum Mucor racemosus IgE an tibody assay (units/volume)Ordered By: David Mckinney on 03-12-2023 Mucor racemosus IgE Qn (S) <0.10 kU/L Class 0 [facility] Serum Penicillium notatum Ig E antibody assay (units/volume)Ordered By: David Mckinney on 03-12-2023 P. notatum IgE Qn (S) <0.10 kU/L Class 0 [facility] Serum Periplaneta americana IgE antibody assay (units/volume)Ordered By: David Mckinney on 03-12-2023 [place]ian Cockroach IgE Qn (S) <0.10 kU/L Class 0 [facility] Serum South Sudanese thistle specif ic IgE antibody assayOrdered By: David Mckinney on 03-12-2023 Saltwort IgE Qn (S) Not Reportable [facility] Serum bahia grass IgE antibo dy assay (units/volume)Ordered By: David Mckinney on 03-12-2023 Bahia grass IgE Qn (S) <0.10 kU/L Class 0 [facility] Serum beef IgE antibody assa y (units/volume)Ordered By: David Mckinney on 03-12-2023 Beef IgE Qn (S) <0.10 kU/L Class 0 [facility] Serum birch specific IgE ant ibody assayOrdered By: David Mckinney on 03-12-2023 Silver Birch IgE Qn (S) Not Reportable [facility] Serum black walnut IgE antib pinky assay (units/volume)Ordered By: David Mckinney on 03-12-2023 [place] IgE Qn (S) 0.72 kU/L Class II [facility] Comment on above: Performed at: [address] [id number] Director: Jordan Chew MD, Phone: [phone] [place] IgE Qn (S) Not Reportable [facility] Serum cat dander IgE antibod y assay (units/volume)Ordered By: David Mckinney on 03-12-2023 Cat dander IgE Qn (S) <0.10 kU/L Class 0 [facility] Serum corn IgE antibody assa y (units/volume)Ordered By: David Mckinney on 03-12-2023 [place] IgE Qn (S) 0.60 kU/L Class II [facility] Serum cottonwood IgE antibod y assay (units/volume)Ordered By: David Mckinney on 03-12-2023 [place] IgE Qn (S) Not Reportable [facility] Serum cow milk IgE antibody assay (units/volume)Ordered By: David Mckinney on 03-12-2023 Cow milk IgE Qn (S) <0.10 kU/L Class 0 [facility] Serum dog epithelium IgE ant ibody assay (units/volume)Ordered By: David Mckinney on 03-12-2023 Dog epithelium IgE Qn (S) <0.10 kU/L Class 0 [facility] Serum hazelnut pollen IgE an tibody assay (units/volume)Ordered By: David Mckinney on 03-12-2023 Hazelnut Pollen IgE Qn (S) <0.10 kU/L Class 0 [facility] Serum mountain cedar specifi c IgE antibody assayOrdered By: David Mckinney on 03-12-2023 Mountain Juniper IgE Qn (S) <0.10 kU/L Class 0 [facility] Serum mugwort IgE antibody a ssay (units/volume)Ordered By: David Mckinney on 03-12-2023 Mugwort IgE Qn (S) <0.10 kU/L Class 0 [facility] Serum nettle IgE antibody as say (units/volume)Ordered By: David Mckinney on 03-12-2023 Nettle IgE Qn (S) <0.10 kU/L Class 0 [facility] Serum peanut IgE antibody as say (units/volume)Ordered By: David Mckinney on 03-12-2023 Peanut IgE Qn (S) 0.77 kU/L Class II [facility] Serum pecan or hickory nut I gE antibody assay (units/volume)Ordered By: aDvid Mckinney on 03-12-2023 Pecan or [place] Nut IgE Qn (S) Not Reportable [facility] Serum pork IgE antibody assa y (units/volume)Ordered By: David Mckinney on 03-12-2023 Pork IgE Qn (S) <0.10 kU/L Class 0 [facility] Serum sheep sorrel IgE antib pinky assay (units/volume)Ordered By: David Mckinney on 03-12-2023 Sheep [place]on IgE Qn (S) <0.10 kU/L Class 0 [facility] Sheep Weston IgE Qn (S) Not Reportable [facility] Serum soybean IgE antibody a ssay (units/volume)Ordered By: David Mckinney on 03-12-2023 Soybean IgE Qn (S) <0.10 kU/L Class 0 [facility] Serum prosper IgE antibody a ssay (units/volume)Ordered By: David Mckinney on 03-12-2023 Prosper IgE Qn (S) Not Reportable [facility] Serum wheat IgE antibody ass ay (units/volume)Ordered By: David Mckinney on 03-12-2023 Wheat IgE Qn (S) 0.16 kU/L Class 0/I [facility] Serum white deandre IgE antibody assay (units/volume)Ordered By: David Mckinney on 03-12-2023 White Deandre IgE Qn (S) Not Reportable [facility] Serum white elm IgE antibody assay (units/volume)Ordered By: David Mckinney on 03-12-2023 White Elm IgE Qn (S) 0.27 kU/L Class 0/I [facility] White Elm IgE Qn (S) Not Reportable [facility] Serum white hickory IgE anti body assay (units/volume)Ordered By: David Mckinney on 03-12-2023 White Hyde IgE Qn (S) <0.10 kU/L Class 0 [facility] Serum white mulberry IgE ant ibody assay (units/volume)Ordered By: David Mckinney on 03-12-2023 White mulberry IgE Qn (S) 0.18 kU/L Class 0/I [facility] White mulberry IgE Qn (S) Not Reportable [facility] Serum white oak IgE antibody assay (units/volume)Ordered By: David Mckinney on 03-12-2023 [place] IgE Qn (S) <0.10 kU/L Class 0 [facility] Serum whole egg IgE antibody assay (units/volume)Ordered By: David Mckinney on 03-12-2023 Whole Egg IgE Qn (S) <0.10 kU/L Class 0 [facility] Stemphylium herbarum IgE ser umOrdered By: David Mckinney on 03-12-2023 Stemphylium botryosum IgE Qn (S) <0.10 kU/L Class 0 [facility] Influenza virus A and B and SARS-CoV-2 (COVID-19) Ag panel - Upper respiratory specimOrdered By: Margarita Griggs on 02-24-2023 SARS-CoV-2 (COVID-19) RNA OFELIA+probe Ql (Resp) [facility] SARS-CoV-2 (COVID-19) RNA OFELIA+probe Ql (Resp) [facility] Throat Streptococcus pyogene s antigen detection by immunofluorescenceOrdered By: Margarita Griggs on 02-24-2023 S. pyogenes Ag IF Ql (Throat) [facility] S. pyogenes Ag IF Ql (Throat) [facility] Absolute lymphocyte countOrd ered By: Zamzam Olson on 12-26-2022 Lymphocytes Auto (Unsp spec) [#/Vol] 1.94 10*3/uL 0.83-4.51 [facility] Basophil percentageOrdered B y: Zamzam Olson on 12-26-2022 Basophils/100 WBC (Bld) 1.2 % 0-1 [facility] Eosinophils/100 WBC (Bld) 5.6 % 0-5 [facility] Neutrophils (Bld) [#/Vol] 3.1 10*3/uL 2.0-7.7 [facility] Neutrophils/100 WBC (Bld) 52.9 % 47-70 [facility] WBC (Bld) [#/Vol] 5.9 10*3/uL 4.4-11.0 [facility] Blood erythrocytes count (nu mber/volume)Ordered By: Zamzam Olson on 12-26-2022 RBC (Bld) [#/Vol] 5.10 10*6/uL 4.2-5.4 [facility] Blood hemoglobin measurement (mass/volume)Ordered By: Zamzam Olson on 12-26-2022 Hemoglobin (Bld) [Mass/Vol] 14.0 g/dL 12.0-15.0 [facility] Blood lymphocytes/100 leukoc ytesOrdered By: Zamzam Olson on 12-26-2022 Lymphocytes/100 WBC (Bld) 33.0 % 19-41 [facility] Blood monocytes/100 leukocyt esOrdered By: Zamzam Olson on 12-26-2022 Monocytes/100 WBC (Bld) 7.1 % 0-10 [facility] Blood platelet mean volumeOr dered By: Zamzam Olson on 12-26-2022 Platelet mean volume (Bld) [Entitic vol] 12.6 fL 6.2-12.0 [facility] Culture, urineOrdered By: Ame Olson on 12-26-2022 Bacteria identified Cx Nom (U) Escherichia coli [facility] Determination of erythrocyte mean corpuscular volume (MCV)Ordered By: Zamzam Olson on 12-26-2022 MCV (RBC) [Entitic vol] 85.3 fL 81-99 [facility] Hematocrit Auto (Bld) [Volum e fraction]Ordered By: Zamzam Olson on 12-26-2022 Hematocrit (Bld) [Volume fraction] 43.5 % 37-47 [facility] Iron measurement (mass/mass) Ordered By: Zamzam Olson on 12-26-2022 Iron (Unsp spec) [Mass/Mass] 74 ug/dL 50-170 [facility] Laboratory - Hematology and Cell countsOrdered By: Zamzam Olson on 12-26-2022 Erythrocyte distribution width (RBC) [Entitic vol] 39.5 fL 35.1-43.9 [facility] Erythrocyte distribution width (RBC) [Ratio] 12.7 % 11.6-14.6 [facility] Immature granulocytes/100 WBC (Bld) 0.200 % 0.0-0.9 [facility] Comment on above: IG% - Immature Granu locytes (promyelocytes, myelocytes and metamyelocytes) > 1% indicates that a LEFT SHIFT is Present. MCH (RBC) [Entitic mass] 27.5 pg 27.0-32.0 [facility] Nucleated RBC/100 WBC (Bld) [Ratio] 0 % 0-5 [facility] MCHC Auto (RBC) [Mass/Vol]Or dered By: Zamzam Olson on 12-26-2022 MCHC (RBC) [Mass/Vol] 32.2 g/dL 32-36 [facility] No Panel InformationOrdered By: Zamzam Olson on 12-26-2022 Total Iron Binding Capacity 447 ug/dL 250-450 [facility] Platelets bldOrdered By: Elizabeth Olson on 12-26-2022 Platelets (Bld) [#/Vol] 215 10*3/uL 150-450 [facility] Serum or plasma ferritin naresh surement (mass/volume)Ordered By: Zamzam Olson on 12-26-2022 Ferritin [Mass/Vol] 11 ng/mL 8-252 [facility] Serum or plasma iron saturat ion measurement (mass fraction)Ordered By: Zamzam Olson on 12-26-2022 Iron saturation [Mass fraction] 16.6 % 15.0-55.0 [facility] Cervical or vagninal specime n microscopic examination by cytology stain (reported asOrdered By: Jorge Ewing on 10-30-2022 Cytology report Cyto stain Doc (Cvx/Vag) Comment . [facility] Comment on above: The Pap smear is a s creening test designed to aid in thedetection of premalignant and malignant conditions of theuterine cervix. It is not a diagnostic procedure andshould not be used as the sole means of detecting cervicalcancer. Both false-positive and false-negative reports dooccur. Laboratory - CytologyOrdered By: Jorge Ewing on 10-30-2022 Student Development Coordinator Cyto stain Nom (Cvx/Vag) [ID] Comment . [facility] Comment on above: Francesco Walsh totechnologist (ASCP) Laboratory - Miscellaneous t estsOrdered By: Jorge Ewing on 10-30-2022 Service comment (Unsp spec) [Interp] Comment . [facility] Comment on above: This liquid based Th inPrep(R) pap test was screened withthe use of an image guided system. Service comment (Unsp spec) [Interp] . . [facility] No Panel InformationOrdered By: Jorge Ewing on 10-30-2022 Human Papillomavirus Screen Comment . [facility] Comment on above: The HPV DNA reflex c tenisha were not met with this specimenresult therefore, no HPV testing was performed.Performed at: [facility] [id number] Director: Autumn Cancino MD, Phone: [phone] Pathology report final diagnosis Narrative Comment . [facility] Comment on above: NEGATIVE FOR INTRAEP ITHELIAL LESION OR MALIGNANCY.TRICHOMONAS VAGINALIS IS PRESENT. Culture, urineOrdered By: Dr Tameka Ewing on 08-17-2022 Bacteria identified Cx Nom (U) Positive [facility] Basophil percentageon 2021 Basophil percentage 10-25 SEEN /hpf 0-5 [facility] Work Phone: [phone] Bilirubin [Mass/Vol] 0.40 mg/dL 0.20-1.00 [facility] Work Phone: [phone] Comment on above: For patients on eltr ombopag therapy, use of Dimension Shepherd TBIL is not recommended. Chloride [Moles/Vol] 108 mmol/L 98-107 [facility] Work Phone: Glucose [Mass/Vol] 59 mg/dL 74-106 [facility] Work Phone: Potassium [Moles/Vol] 3.8 mmol/L 3.5-5.1 [facility] Work Phone: Protein [Mass/Vol] 6.6 g/dL 6.4-8.2 [facility] Work Phone: [phone] Sodium [Moles/Vol] 137 mmol/L 136-145 [facility]: [phone] WBC (Bld) [#/Vol] 10.5 10*3/uL 4.4-11.0 [facility] Work Phone: [phone] Bilirubin Test strip Ql (U)o n 02-20-2022 Bilirubin Ql (U) Negative Negative [facility] Work Phone: [phone] Blood erythrocytes count (nu mber/volume)on 02-20-2022 RBC (Bld) [#/Vol] 3.83 10*6/uL 4.2-5.4 [facility] Work Phone: [phone] Blood hemoglobin measurement (mass/volume)on 02-20-2022 Hemoglobin (Bld) [Mass/Vol] 10.1 g/dL 12.0-15.0 [facility] Work Phone: [phone] Blood platelet mean volumeon 02-20-2022 Platelet mean volume (Bld) [Entitic vol] 12.8 fL 6.2-12.0 [facility] Work Phone: [phone] Determination of erythrocyte mean corpuscular volume (MCV)on 02-20-2022 MCV (RBC) [Entitic vol] 83.3 fL 81-99 [facility] Work Phone: [phone] Hematocrit Auto (Bld) [Volum e fraction]on 02-20-2022 Hematocrit (Bld) [Volume fraction] 31.9 % 37-47 [facility] Work Phone: [phone] Ketones Test strip Ql (U)on 02-20-2022 Ketones Ql (U) Negative Negative [facility] Work Phone: [phone] Laboratory - Chemistry and C hemistry - challengeon 02-20-2022 ALP [Catalytic activity/Vol] 194 U/L 45-117 [facility] Work Phone: [phone] ALT [Catalytic activity/Vol] 16 U/L 13-56 [facility] Work Phone: [phone] CO2 [Moles/Vol] 22.0 mmol/L 21.0-32.0 [facility] Work Phone: Globulin (S) [Mass/Vol] 4.0 g/dL 2.2-4.2 [facility] Work Phone: Urea nitrogen/Creatinine [Mass ratio] 18.0 mg/mg 10-20 [facility] Work Phone: Laboratory - Drug toxicology on 02-20-2022 Benzodiazepines Ql (U) Negative < 200 ng/mL [facility] Work Phone: Cannabinoids Screen Ql (U) Negative < 50 ng/mL [facility] Work Phone: Cocaine Ql (U) Negative < 300 ng/mL [facility] Work Phone: Opiates Ql (U) Negative < 300 ng/mL [facility] Work Phone: Laboratory - Hematology and Cell countson 02-20-2022 Erythrocyte distribution width (RBC) [Entitic vol] 44.0 fL 35.1-43.9 [facility] Work Phone: Erythrocyte distribution width (RBC) [Ratio] 14.6 % 11.6-14.6 [facility] Work Phone: MCH (RBC) [Entitic mass] 26.4 pg 27.0-32.0 [facility] Work Phone: MCHC Auto (RBC) [Mass/Vol]on 02-20-2022 MCHC (RBC) [Mass/Vol] 31.7 g/dL 32-36 [facility] Work Phone: Mucus LM Ql (Urine sed)on Mucus Ql (Urine sed) 1+ /hpf [facility] Work Phone: Nitrite Test strip Ql (U)on 02-20-2022 Nitrite Ql (U) Negative Negative [facility] Work Phone: No Panel Informationon 02-20 MDMA (Ecstasy) Screen Negative < 500 ng/mL [facility] Work Phone: Urine Barbiturates Screen Negative < 200 ng/mL [facility] Work Phone: Urine Drug Screen Comment [facility] Work Phone: Comment on above: CONFIRMATORY [...] Methadone Screen Negative < 300 ng/mL [facility] Work Phone: Urine Trichomonas 0-5 SEEN /hpf None Seen [facility] Work Phone: Estimated Creatinine Clearance Calc 198.42 ml/min [facility] Work Phone: Estimated GFR (MDRD) Amer 259 mL/min >60 [facility] Work Phone: Comment on above: GFR Calc Estimated GFR (MDRD) Non-Af Amer 214 mL/min >60 [facility] Work Phone: Comment on above: Non- GFR Calc Platelets bldon 02-20-2022 Platelets (Bld) [#/Vol] 171 10*3/uL 150-450 [facility] Work Phone: Protein Test strip Ql (U)on 02-20-2022 Protein Ql (U) 15 mg/dl Negative [facility] Work Phone: Serum or plasma albumin roopa urement (mass/volume)on 02-20-2022 Albumin [Mass/Vol] 2.6 g/dL 3.2-5.0 [facility] Work Phone: Serum or plasma albumin/glob ulin mass ratioon 02-20-2022 Albumin/Globulin [Mass ratio] 0.6 {ratio} 0.9-2.4 [facility] Work Phone: Serum or plasma calcium roopa urement (mass/volume)on 02-20-2022 Calcium [Mass/Vol] 8.7 mg/dL 8.5-10.1 [facility] Work Phone: Serum or plasma creatinine m easurement (mass/volume)on 02-20-2022 Creatinine [Mass/Vol] 0.39 mg/dL 0.55-1.02 [facility] Work Phone: Comment on above: The validity of the calculated GFR & GFRAA in patients over 70 years has not been determined. Clinical correlation is essential. Serum or plasma urea nitroge n measurement (mass/volume)on 02-20-2022 Urea nitrogen [Mass/Vol] 7 mg/dL 7-18 [facility] Work Phone: Serum or plasma uric acid me asurement (mass/volume)on 02-20-2022 Urate [Mass/Vol] 3.9 mg/dL 2.6-6.0 [facility] Work Phone: Comment on above: The drugs N-Acetylcy steine and Metamizole may falsely depress this assay. Squamous epithelial cells de tection in urine sediment by light microscopyon 02-20-2022 Epithelial cells.squamous LM Ql (Urine sed) 10-25 SEEN /hpf 5-10 [facility] Work Phone: Thin prep Papanicolaou smear with manual screeningon 02-20-2022 Thin prep Papanicolaou smear with manual screening 16 U/L 15-37 [facility] Work Phone: Thin prep Papanicolaou smear with manual screening 7 5-15 [facility] Work Phone: Thin prep Papanicolaou smear with manual screening 170 U/L 84-246 [facility] Work Phone: Urine amphetamine measuremen t (moles/volume)on 02-20-2022 Amphetamine (U) [Moles/Vol] Negative <1000 ng/mL [facility] Work Phone: Urine blood detectionon 08-3 RBC Ql (U) 250 /ul Negative [facility] Work Phone: RBC Ql (U) 5-10 SEEN /hpf 0-5 [facility] Work Phone: [phone] Urine clarityon 02-20-2022 Clarity (U) Sl. Cloudy Clear [facility] Work Phone: [phone] Urine color determinationon 02-20-2022 Color (U) Yellow Yellow [facility] Work Phone: [phone] Urine creatinine measurement (mass/volume)on 02-20-2022 Creatinine (U) [Mass/Vol] 109.00 mg/dL NO RANGE EST. [facility] Work Phone: [phone] Urine glucose detectionon Glucose Ql (U) 250 mg/dl Normal [facility] Work Phone: [phone] Urine leukocyte esterase det ection by dipstickon 02-20-2022 Leukocyte esterase Test strip Ql (U) 500 /ul Negative [facility] Work Phone: [phone] Urine pHon 02-20-2022 pH (U) 6.0 [pH] 5.0 - 8.0 [facility] Work Phone: [phone] Urine phencyclidine (PCP) de tectionon 02-20-2022 Phencyclidine Ql (U) Negative < 25 ng/mL [facility] Work Phone: [phone] Urine protein measurement (m ass/volume)on 02-20-2022 Protein (U) [Mass/Vol] 20.4 mg/dL 0.0-11.8 [facility] Work Phone: [phone] Urine protein/creatinine mas s ratioon 02-20-2022 Protein/Creatinine (U) [Mass ratio] 187 mg/g CRE 0-200 [facility] Work Phone: [phone] Urine sediment bacteria coun t by microscopy (number/high power field)on 02-20-2022 Bacteria LM.HPF (Urine sed) [#/Area] 4 /[HPF] None Seen [facility] Work Phone: [phone] Urine specific gravity measu rementon 02-20-2022 Specific gravity (U) [Rel density] 1.020 1.002-1.030 [facility] Work Phone: Urobilinogen Auto test strip Ql (U)on 02-20-2022 Urobilinogen Ql (U) 1 mg/dl Normal [facility] Work Phone: No Panel Informationon 02-17 Vaginal Amniotic Fluid Detection Negative Negative [facility] Work Phone: Comment on above: Amniotic fluid not p resent indicates No Rupture of FetalMembranes at time of specimen collection. Basophil percentageon 2021 WBC (Bld) [#/Vol] 9.9 10*3/uL 4.4-11.0 [facility] Work Phone: Blood erythrocytes count (nu mber/volume)on 12-13-2021 RBC (Bld) [#/Vol] 3.71 10*6/uL 4.2-5.4 [facility] Work Phone: Blood hemoglobin measurement (mass/volume)on 12-13-2021 Hemoglobin (Bld) [Mass/Vol] 9.9 g/dL 12.0-15.0 [facility] Work Phone: Blood platelet mean volumeon 12-13-2021 Platelet mean volume (Bld) [Entitic vol] 11.9 fL 6.2-12.0 [facility] Work Phone: Determination of erythrocyte mean corpuscular volume (MCV)on 12-13-2021 MCV (RBC) [Entitic vol] 85.2 fL 81-99 [facility] Work Phone: Gestational diabetes screen 1-hour screen with 50g oral glucose loadon 12-13-2021 Glucose 1 Hr post 50 g glucose PO [Mass/Vol] 129 mg/dL 70-140 [facility] Work Phone: Hematocrit Auto (Bld) [Volum e fraction]on 12-13-2021 Hematocrit (Bld) [Volume fraction] 31.6 % 37-47 [facility] Work Phone: Laboratory - Hematology and Cell countson 12-13-2021 Erythrocyte distribution width (RBC) [Entitic vol] 48.6 fL 35.1-43.9 [facility] Work Phone: Erythrocyte distribution width (RBC) [Ratio] 15.7 % 11.6-14.6 [facility] Work Phone: MCH (RBC) [Entitic mass] 26.7 pg 27.0-32.0 [facility] Work Phone: MCHC Auto (RBC) [Mass/Vol]on 12-13-2021 MCHC (RBC) [Mass/Vol] 31.3 g/dL 32-36 [facility] Work Phone: Platelets bldon 12-13-2021 Platelets (Bld) [#/Vol] 172 10*3/uL 150-450 [facility] Work Phone: Absolute lymphocyte counton 11-04-2021 Lymphocytes Auto (Unsp spec) [#/Vol] 2.73 10*3/uL 0.83-4.51 [facility] Work Phone: Basophil percentageon 2021 Basophils/100 WBC (Bld) 0.4 % 0-1 [facility] Work Phone: Eosinophils/100 WBC (Bld) 3.1 % 0-5 [facility] Work Phone: Neutrophils (Bld) [#/Vol] 5.5 10*3/uL 2.0-7.7 [facility] Work Phone: Neutrophils/100 WBC (Bld) 58.8 % 47-70 [facility] Work Phone: WBC (Bld) [#/Vol] 9.4 10*3/uL 4.4-11.0 [facility] Work Phone: Blood erythrocytes count (nu mber/volume)on 11-04-2021 RBC (Bld) [#/Vol] 3.42 10*6/uL 4.2-5.4 [facility] Work Phone: Blood hemoglobin measurement (mass/volume)on 11-04-2021 Hemoglobin (Bld) [Mass/Vol] 9.0 g/dL 12.0-15.0 [facility] Work Phone: Blood lymphocytes/100 leukoc yteson 11-04-2021 Lymphocytes/100 WBC (Bld) 29.1 % 19-41 [facility] Work Phone: Blood monocytes/100 leukocyt eson 11-04-2021 Monocytes/100 WBC (Bld) 7.4 % 0-10 [facility] Work Phone: Blood platelet mean volumeon 11-04-2021 Platelet mean volume (Bld) [Entitic vol] 11.7 fL 6.2-12.0 [facility] Work Phone: Determination of erythrocyte mean corpuscular volume (MCV)on 11-04-2021 MCV (RBC) [Entitic vol] 84.8 fL 81-99 [facility] Work Phone: Hematocrit Auto (Bld) [Volum e fraction]on 11-04-2021 Hematocrit (Bld) [Volume fraction] 29.0 % 37-47 [facility] Work Phone: [phone] Laboratory - Hematology and Cell countson 11-04-2021 Erythrocyte distribution width (RBC) [Entitic vol] 46.1 fL 35.1-43.9 [facility] Work Phone: [phone] Erythrocyte distribution width (RBC) [Ratio] 15.0 % 11.6-14.6 [facility] Work Phone: Immature granulocytes/100 WBC (Bld) 1.200 % 0.0-0.9 [facility] Work Phone: [phone] Comment on above: IG% - Immature Granu locytes (promyelocytes, myelocytes and metamyelocytes) > 1% indicates that a LEFT SHIFT is Present. MCH (RBC) [Entitic mass] 26.3 pg 27.0-32.0 [facility] Work Phone: Nucleated RBC/100 WBC (Bld) [Ratio] 0 % 0-5 [facility] Work Phone: MCHC Auto (RBC) [Mass/Vol]on 11-04-2021 MCHC (RBC) [Mass/Vol] 31.0 g/dL 32-36 [facility] Work Phone: [phone] Platelets bldon 11-04-2021 Platelets (Bld) [#/Vol] 184 10*3/uL 150-450 [facility] Work Phone: [phone] INR in Blood by Coagulation assayon 11-03-2021 INR Coag (Bld) [Relative time] 1.1 {INR} [facility] Work Phone: [phone] Laboratory - Coagulationon 0 11-03-2021 aPTT Coag (Bld) [Time] 27.0 s 24.1-36.2 [facility] Work Phone: [phone] PT Coag (PPP) [Time] 13.4 s 11.7-14.9 [facility] Work Phone: Laboratory - Drug toxicology on 11-03-2021 Amphetamines Ql (U) Negative <1000 ng/mL [facility] Work Phone: Benzodiazepines Ql (U) Negative < 200 ng/mL [facility] Work Phone: Cannabinoids Screen Ql (U) Negative < 50 ng/mL [facility] Work Phone: Cocaine Ql (U) Negative < 300 ng/mL [facility] Work Phone: Opiates Ql (U) Negative < 300 ng/mL [facility] Work Phone: No Panel Informationon 11-03 MDMA (Ecstasy) Screen Negative < 500 ng/mL [facility] Work Phone: Urine Barbiturates Screen Negative < 200 ng/mL [facility] Work Phone: Urine Drug Screen Comment [facility] Work Phone: Comment on above: CONFIRMATORY [...] Methadone Screen Negative < 300 ng/mL [facility] Work Phone: Urine phencyclidine (PCP) de tectionon 11-03-2021 Phencyclidine Ql (U) Negative < 25 ng/mL [facility] Work Phone: Absolute lymphocyte counton 09-13-2021 Lymphocytes Auto (Unsp spec) [#/Vol] 1.80 10*3/uL 0.83-4.51 [facility] Work Phone: Basophil percentageon 2021 Basophils/100 WBC (Bld) 0.4 % 0-1 [facility] Work Phone: Chloride [Moles/Vol] 107 mmol/L 98-107 [facility] Work Phone: Eosinophils/100 WBC (Bld) 3.9 % 0-5 [facility] Work Phone: Glucose [Mass/Vol] 78 mg/dL 74-106 [facility] Work Phone: Neutrophils (Bld) [#/Vol] 5.6 10*3/uL 2.0-7.7 [facility] Work Phone: Neutrophils/100 WBC (Bld) 67.2 % 47-70 [facility] Work Phone: Potassium [Moles/Vol] 4.0 mmol/L 3.5-5.1 [facility] Work Phone: Sodium [Moles/Vol] 136 mmol/L 136-145 [facility] Work Phone: WBC (Bld) [#/Vol] 8.3 10*3/uL 4.4-11.0 [facility] Work Phone: [phone] Blood erythrocytes count (nu mber/volume)on 09-13-2021 RBC (Bld) [#/Vol] 4.28 10*6/uL 4.2-5.4 [facility] Work Phone: [phone] Blood hemoglobin measurement (mass/volume)on 09-13-2021 Hemoglobin (Bld) [Mass/Vol] 11.6 g/dL 12.0-15.0 [facility] Work Phone: Blood lymphocytes/100 leukoc yteson 09-13-2021 Lymphocytes/100 WBC (Bld) 21.8 % 19-41 [facility] Work Phone: Blood monocytes/100 leukocyt eson 09-13-2021 Monocytes/100 WBC (Bld) 6.1 % 0-10 [facility] Work Phone: Blood platelet mean volumeon 09-13-2021 Platelet mean volume (Bld) [Entitic vol] 10.7 fL 6.2-12.0 [facility] Work Phone: [phone] Determination of erythrocyte mean corpuscular volume (MCV)on 09-13-2021 MCV (RBC) [Entitic vol] 83.2 fL 81-99 [facility] Work Phone: Hematocrit Auto (Bld) [Volum e fraction]on 09-13-2021 Hematocrit (Bld) [Volume fraction] 35.6 % 37-47 [facility] Work Phone: [phone] Laboratory - Chemistry and C hemistry - challengeon 09-13-2021 CO2 [Moles/Vol] 26.0 mmol/L 21.0-32.0 [facility] Work Phone: [phone] Urea nitrogen/Creatinine [Mass ratio] 14.5 mg/mg 10-20 [facility] Work Phone: Laboratory - Hematology and Cell countson 09-13-2021 Erythrocyte distribution width (RBC) [Entitic vol] 47.2 fL 35.1-43.9 [facility] Work Phone: Erythrocyte distribution width (RBC) [Ratio] 15.8 % 11.6-14.6 [facility] Work Phone: Immature granulocytes/100 WBC (Bld) 0.600 % 0.0-0.9 [facility] Work Phone: Comment on above: IG% - Immature Granu locytes (promyelocytes, myelocytes and metamyelocytes) > 1% indicates that a LEFT SHIFT is Present. MCH (RBC) [Entitic mass] 27.1 pg 27.0-32.0 [facility] Work Phone: Nucleated RBC/100 WBC (Bld) [Ratio] 0 % 0-5 [facility] Work Phone: MCHC Auto (RBC) [Mass/Vol]on 09-13-2021 MCHC (RBC) [Mass/Vol] 32.6 g/dL 32-36 [facility] Work Phone: No Panel Informationon 09-13 Estimated Creatinine Clearance Calc 141.92 ml/min [facility] Work Phone: Estimated GFR (MDRD) Amer 174 mL/min >60 [facility] Work Phone: Comment on above: GFR Calc Estimated GFR (MDRD) Non-Af Amer 144 mL/min >60 [facility] Work Phone: Comment on above: Non- GFR Calc Platelets bldon 09-13-2021 Platelets (Bld) [#/Vol] 190 10*3/uL 150-450 [facility] Work Phone: Serum or plasma calcium roopa urement (mass/volume)on 09-13-2021 Calcium [Mass/Vol] 8.9 mg/dL 8.5-10.1 [facility] Work Phone: Serum or plasma creatinine m easurement (mass/volume)on 09-13-2021 Creatinine [Mass/Vol] 0.55 mg/dL 0.55-1.02 [facility] Work Phone: Comment on above: The validity of the calculated GFR & GFRAA in patients over 70 years has not been determined. Clinical correlation is essential. Serum or plasma urea nitroge n measurement (mass/volume)on 09-13-2021 Urea nitrogen [Mass/Vol] 8 mg/dL 7-18 [facility] Work Phone: Thin prep Papanicolaou smear with manual screeningon 09-13-2021 Thin prep Papanicolaou smear with manual screening 3 5-15 [facility] Work Phone: Absolute lymphocyte counton 08-01-2021 Lymphocytes Auto (Unsp spec) [#/Vol] 1.99 10*3/uL 0.83-4.51 [facility] Work Phone: Basophil percentageon 2021 Basophils/100 WBC (Bld) 0.4 % 0-1 [facility] Work Phone: Eosinophils/100 WBC (Bld) 4.4 % 0-5 [facility] Work Phone: Neutrophils (Bld) [#/Vol] 4.4 10*3/uL 2.0-7.7 [facility] Work Phone: Neutrophils/100 WBC (Bld) 60.7 % 47-70 [facility] Work Phone: WBC (Bld) [#/Vol] 7.2 10*3/uL 4.4-11.0 [facility] Work Phone: [phone] Bilirubin Test strip Ql (U)o n 08-01-2021 Bilirubin Ql (U) Negative Negative [facility] Work Phone: Blood erythrocytes count (nu mber/volume)on 08-01-2021 RBC (Bld) [#/Vol] 4.52 10*6/uL 4.2-5.4 [facility] Work Phone: Blood hemoglobin measurement (mass/volume)on 08-01-2021 Hemoglobin (Bld) [Mass/Vol] 12.2 g/dL 12.0-15.0 [facility] Work Phone: Blood lymphocytes/100 leukoc yteson 08-01-2021 Lymphocytes/100 WBC (Bld) 27.6 % 19-41 [facility] Work Phone: Blood monocytes/100 leukocyt eson 08-01-2021 Monocytes/100 WBC (Bld) 6.5 % 0-10 [facility] Work Phone: Blood platelet mean volumeon 08-01-2021 Platelet mean volume (Bld) [Entitic vol] 11.8 fL 6.2-12.0 [facility] Work Phone: Culture, urineon 08-01-2021 Bacteria identified Cx Nom (U) Positive [facility] Work Phone: Determination of erythrocyte mean corpuscular volume (MCV)on 08-01-2021 MCV (RBC) [Entitic vol] 80.5 fL 81-99 [facility] Work Phone: HIV 1 and HIV-2 antibody ass ay with HIV-1 p24 antigen detectionon 08-01-2021 HIV 1+2 Ab+HIV1 p24 Ag IA Ql Non-Reactive Nonreactive [facility] Work Phone: Hematocrit Auto (Bld) [Volum e fraction]on 08-01-2021 Hematocrit (Bld) [Volume fraction] 36.4 % 37-47 [facility] Work Phone: Ketones Test strip Ql (U)on 08-01-2021 Ketones Ql (U) Negative Negative [facility] Work Phone: Laboratory - Drug toxicology on 08-01-2021 Amphetamines Ql (U) Negative [facility] Work Phone: Benzodiazepines Ql (U) Negative [facility] Work Phone: Cannabinoids Screen Ql (U) Negative [facility] Work Phone: Cocaine Ql (U) Negative [facility] Work Phone: Opiates Ql (U) Negative [facility] Work Phone: Laboratory - Hematology and Cell countson 08-01-2021 Erythrocyte distribution width (RBC) [Entitic vol] 47.8 fL 35.1-43.9 [facility] Work Phone: Erythrocyte distribution width (RBC) [Ratio] 16.2 % 11.6-14.6 [facility] Work Phone: Immature granulocytes/100 WBC (Bld) 0.400 % 0.0-0.9 [facility] Work Phone: Comment on above: IG% - Immature Granu locytes (promyelocytes, myelocytes and metamyelocytes) > 1% indicates that a LEFT SHIFT is Present. MCH (RBC) [Entitic mass] 27.0 pg 27.0-32.0 [facility] Work Phone: Nucleated RBC/100 WBC (Bld) [Ratio] 0 % 0-5 [facility] Work Phone: MCHC Auto (RBC) [Mass/Vol]on 08-01-2021 MCHC (RBC) [Mass/Vol] 33.5 g/dL 32-36 [facility] Work Phone: Nitrite Test strip Ql (U)on 08-01-2021 Nitrite Ql (U) Negative Negative [facility] Work Phone: No Panel Informationon 08-01 Hepatitis B Surface Antigen Non-Reactive Nonreactive [facility] Work Phone: Hepatitis C Antibody Non-Reactive Nonreactive [facility] Work Phone: Comment on above: Non Reactive: < 0.8 Equivocal: >/= 0.8 to < 1.0 Reactive: >/= 1.0The CDC recommends that a reactive/equivocal HCV antibody result be followed up by the HCV Nucleic Acid Amplificationtest (589444) Rubella IgG Antibody Reactive Nonreactive [facility] Work Phone: Comment on above: Antibody Results Int erpretation of Immune Status Non Reactive Presumed Non-Immune Equivocal Equivocal Reactive Presumed Immune Thyroid Stimulating Hormone (TSH) 0.43 uIU/mL 0.358-3.74 [facility] Work Phone: Urine Barbiturates Screen Negative [facility] Work Phone: Urine Drug Screen Comment [facility] Work Phone: Comment on above: CONFIRMATORY [...] USE TESTMNEMONIC: [facility] Urine Methadone Screen Negative [facility] Work Phone: Urine Methamphetamine-MDMA Screen Negative [facility] Work Phone: Platelets bldon 08-01-2021 Platelets (Bld) [#/Vol] 208 10*3/uL 150-450 [facility] Work Phone: Protein Test strip Ql (U)on 08-01-2021 Protein Ql (U) Negative Negative [facility] Work Phone: Serum Treponema species anti body detectionon 08-01-2021 Treponema sp Ab Ql (S) Non-Reactive [facility] Work Phone: Urine blood detectionon 02-0 RBC Ql (U) Negative Negative [facility] Work Phone: Urine clarityon 08-01-2021 Clarity (U) Sl. Cloudy Clear [facility] Work Phone: Urine color determinationon 08-01-2021 Color (U) Yellow Yellow [facility] Work Phone: Urine glucose detectionon Glucose Ql (U) Normal mg/dl Normal [facility] Work Phone: Urine leukocyte esterase det ection by dipstickon 08-01-2021 Leukocyte esterase Test strip Ql (U) 100 /ul Negative [facility] Work Phone: Urine pHon 08-01-2021 pH (U) 8.0 [pH] [facility] Work Phone: Urine phencyclidine (PCP) de tectionon 08-01-2021 Phencyclidine Ql (U) Negative [facility] Work Phone: Urine specific gravity measu rementon 08-01-2021 Specific gravity (U) [Rel density] 1.015 [facility] Work Phone: Urobilinogen Auto test strip Ql (U)on 08-01-2021 Urobilinogen Ql (U) Normal mg/dl Normal [facility] Work Phone: No Panel Informationon 07-19 POC SARS CoV-2 Antigen Negative [facility] Work Phone: Serum or plasma choriogonado tropin detectionon 07-09-2021 HCG ( test) Ql 79652 mIU/mL <4 [facility] Work Phone: Comment on above: hCG levels with Gest ational AgeGestational Age hCG mIU/mL (IU/L)0.2 - 1 week 5 - 501-2 weeks 50 - 5002-3 weeks 100 - 30062-7 weeks 500 - 136367-7 weeks 1000 - 726905-4 weeks 65587 - 100,0006-8 weeks 13254 - 200,0002-3 months 94773 - 100,000 No Panel Information Group B Streptococcus Culture Group B Beta Streptococcus is not isolated. [facility] Work Phone: Vital Signs Date Time Vital Sign Value Performing Clinician Facility 04-18-2025 14:24-0400 Heart rate 85 /min Dr. David Mckinney MD Work Phone: [facility] 04-18-2025 14:24-0400 SaO2% (BldA) [Mass fraction] 100 % Dr. David Mckinney MD Work Phone: [facility] 04-18-2025 13:30-0400 Body temperature 97.2 [degF] Dr. David Mckinney MD Work Phone: [facility] 04-18-2025 13:30-0400 Respiratory rate 12 /min Dr. David Mckinney MD Work Phone: 0(585)487-336181 [place] [address] 04-18-2025 13:15-0400 Diastolic blood pressure 84 mm[Hg] Dr. David Mckinney MD Work Phone: 9(180)160-077281 [place] [address] 04-18-2025 13:15-0400 Systolic blood pressure 134 mm[Hg] Dr. David Mckinney MD Work Phone: 3(892)696-511401 [place] [address] 04-18-2025 13:07-0400 Body height 167.[address] David Mckinney MD Work Phone: 8(252)750-121001 [place] [address] 04-18-2025 13:07-0400 Body mass index (BMI) [Ratio] 28 kg/m2 Dr. David Mckinney MD Work Phone: 9(896)859-766301 [place] [address] 04-18-2025 13:07-0400 Body weight 78.[address] David Mckinney MD Work Phone: 6(634)174-362701 [place] [address] 04-09-2025 16:11-0400 Body temperature 98 [degF] Dr. David Mckinney MD Work Phone: 9(274)613-138901 [place] [address] 04-09-2025 16:11-0400 Diastolic blood pressure 90 mm[Hg] Dr. Dvaid Mckinney MD Work Phone: 7(480)528-119401 [place] [address] 04-09-2025 16:11-0400 Heart rate 120 /min Dr. David Mckinney MD Work Phone: 3(654)470-778081 [place] [address] 04-09-2025 16:11-0400 Respiratory rate 18 /min Dr. David Mckinney MD Work Phone: 3(737)058-277581 [place] [address] 04-09-2025 16:11-0400 SaO2% (BldA) [Mass fraction] 99 % Dr. David Mckinney MD Work Phone: 2(691)948-608581 [place] [address] 04-09-2025 16:11-0400 Systolic blood pressure 135 mm[Hg] Dr. David Mckinney MD Work Phone: 2(477)971-943828 [address] 03-10-2025 14:53-0400 Body temperature 97 [degF] Dr. David Mckinney MD Work Phone: [facility] 03-10-2025 14:53-0400 Diastolic blood pressure 79 mm[Hg] Dr. David Mckinney MD Work Phone: [facility] 03-10-2025 14:53-0400 Heart rate 98 /min Dr. David Mckinney MD Work Phone: [facility] 03-10-2025 14:53-0400 Respiratory rate 14 /min Dr. David Mckinney MD Work Phone: [facility] 03-10-2025 14:53-0400 SaO2% (BldA) [Mass fraction] 98 % Dr. David Mckinney MD Work Phone: [facility] 03-10-2025 14:53-0400 Systolic blood pressure 115 mm[Hg] Dr. David Mckinney MD Work Phone: [facility] 03-10-2025 12:30-0400 Body height 165.[address] David Mckinney MD Work Phone: [facility] 03-10-2025 12:30-0400 Body mass index (BMI) [Ratio] 28.3 kg/m2 Dr. David Mckinney MD Work Phone: [facility] 03-10-2025 12:30-0400 Body weight 77.[address] David Mckinney MD Work Phone: [facility] 02-09-2025 09:49-0400 Body mass index (BMI) [Ratio] 28.79 kg/m2 Jt Lugo MD Work Phone: [facility] 02-09-2025 09:49-0400 Body weight 78.47 kg Jt Lugo MD Work Phone: [facility] 02-09-2025 09:49-0400 Diastolic blood pressure 60 mm[Hg] Jt Lugo MD Work Phone: [facility] 02-09-2025 09:49-0400 Systolic blood pressure 106 mm[Hg] Jt Lugo MD Work Phone: [facility] 01-28-2025 10:32-0400 Body height 165.[address] David Mckinney MD Work Phone: [facility] 01-12-2025 09:53-0400 Body mass index (BMI) [Ratio] 28.12 kg/m2 Sarah Solomon MD Work Phone: [facility] 01-12-2025 09:53-0400 Body weight 76.66 kg Sarah Solomon MD Work Phone: [facility] 01-12-2025 09:53-0400 Diastolic blood pressure 70 mm[Hg] Sarah Solomon MD Work Phone: [facility] 01-12-2025 09:53-0400 Systolic blood pressure 108 mm[Hg] Sarah Solomon MD Work Phone: [facility] 12-31-2024 13:21-0400 Body mass index (BMI) [Ratio] 26.63 kg/m2 Soy Cassidy MD Work Phone: [facility] 12-31-2024 13:21-0400 Body weight 72.58 kg Soy Cassidy MD Work Phone: [facility] 12-31-2024 13:21-0400 Diastolic blood pressure 88 mm[Hg] Soy Cassidy MD Work Phone: [facility] 12-31-2024 13:21-0400 Systolic blood pressure 128 mm[Hg] Soy Cassidy MD Work Phone: [facility] 12-11-2024 13:47-0400 Body height 165.[address] David Mckinney MD Work Phone: [facility] 12-11-2024 13:47-0400 Body mass index (BMI) [Ratio] 28.6 kg/m2 Dr. David Mckinney MD Work Phone: [facility] 12-11-2024 13:47-0400 Body temperature 98.8 [degF] Dr. David Mckinney MD Work Phone: [facility] 12-11-2024 13:47-0400 Body weight 78.[address] David Mckinney MD Work Phone: [facility] 12-11-2024 13:47-0400 Diastolic blood pressure 79 mm[Hg] Dr. David Mckinney MD Work Phone: [facility] 12-11-2024 13:47-0400 Heart rate 93 /min Dr. David Mckinney MD Work Phone: [facility] 12-11-2024 13:47-0400 Respiratory rate 16 /min Dr. David Mckinney MD Work Phone: [facility] 12-11-2024 13:47-0400 SaO2% (BldA) [Mass fraction] 99 % Dr. David Mckinney MD Work Phone: [facility] 12-11-2024 13:47-0400 Systolic blood pressure 132 mm[Hg] Dr. David Mckinney MD Work Phone: [facility] 11-18-2024 13:12-0400 Body height 165.1 cm Johana Turner FULL TIME.CNM Work Phone: [facility] 11-18-2024 13:12-0400 Body mass index (BMI) [Ratio] 26.79 kg/m2 Johana Turner FULL TIME.CNM Work Phone: [facility] 11-18-2024 13:12-0400 Body weight 73.03 kg Johana Turner FULL TIME.CNM Work Phone: [facility] 11-18-2024 13:12-0400 Diastolic blood pressure 82 mm[Hg] Johana Turner FULL TIME.CNM Work Phone: [facility] 11-18-2024 13:12-0400 Systolic blood pressure 118 mm[Hg] Johana Turner FULL TIME.CNM Work Phone: [facility] 10-12-2024 01:32-0400 Diastolic blood pressure 89 mm[Hg] Dr. David Mckinney MD Work Phone: [facility] 10-12-2024 01:32-0400 Heart rate 83 /min Dr. David Mckinney MD Work Phone: 0(305)953-563701 [place] [address] 10-12-2024 01:32-0400 Respiratory rate 12 /min Dr. David Mckinney MD Work Phone: 8(993)105-839101 [place] [address] 10-12-2024 01:32-0400 SaO2% (BldA) [Mass fraction] 97 % Dr. David Mckinney MD Work Phone: 5(260)985-057801 [place] [address] 10-12-2024 01:32-0400 Systolic blood pressure 136 mm[Hg] Dr. David Mckinney MD Work Phone: 8(047)547-858501 [place] [address] 10-11-2024 23:39-0400 Body height 165.[address] David Mckinney MD Work Phone: 0(000)072-683301 [place] [address] 10-11-2024 23:39-0400 Body mass index (BMI) [Ratio] 26.7 kg/m2 Dr. David Mckinney MD Work Phone: 5(879)959-061801 [place] [address] 10-11-2024 23:39-0400 Body temperature 97.8 [degF] Dr. David Mckinney MD Work Phone: 8(868)802-663001 [place] [address] 10-11-2024 23:39-0400 Body weight 72.[address] David Mckinney MD Work Phone: 2(354)801-407481 [place] [address] 10-02-2024 23:04-0400 Body temperature 96.8 [degF] Dr. David Mckinney MD Work Phone: 1(063)997-471801 [place] [address] 10-02-2024 23:04-0400 Diastolic blood pressure 80 mm[Hg] Dr. David Mckinney MD Work Phone: 1(948)771-835701 [place] [address] 10-02-2024 23:04-0400 Heart rate 100 /min Dr. David Mckinney MD Work Phone: 2(165)572-765281 [place] [address] 10-02-2024 23:04-0400 Respiratory rate 16 /min Dr. David Mckinney MD Work Phone: [facility] 10-02-2024 23:04-0400 SaO2% (BldA) [Mass fraction] 98 % Dr. David Mckinney MD Work Phone: [facility] 10-02-2024 23:04-0400 Systolic blood pressure 132 mm[Hg] Dr. David Mckinney MD Work Phone: [facility] 10-02-2024 22:37-0400 Body height 165.[address] David Mckinney MD Work Phone: [facility] 10-02-2024 22:37-0400 Body mass index (BMI) [Ratio] 26.1 kg/m2 Dr. David Mckinney MD Work Phone: [facility] 10-02-2024 22:37-0400 Body weight 71.[address] David Mckinney MD Work Phone: [facility] 09-16-2024 14:38-0400 Body mass index (BMI) [Ratio] 27.88 kg/m2 Hortencia Gould APRN.FACILITY OPERATIONS MANAGER Work Phone: [facility] 09-16-2024 14:38-0400 Body weight 73.66 kg Hortencia Gould APRN.FACILITY OPERATIONS MANAGER Work Phone: [facility] 09-16-2024 14:38-0400 Diastolic blood pressure 65 mm[Hg] Hortencia Gould APRN.FACILITY OPERATIONS MANAGER Work Phone: [facility] 09-16-2024 14:38-0400 Systolic blood pressure 106 mm[Hg] Hortencia Gould APRN.FACILITY OPERATIONS MANAGER Work Phone: [facility] 07-29-2024 13:20-0500 Body height 162.6 cm Sharda Ashfordcalf FULL TIME.FACILITY OPERATIONS MANAGER Work Phone: [facility] 07-29-2024 13:20-0500 Body mass index (BMI) [Ratio] 29.01 kg/m2 Sharda Langley FULL TIME.FACILITY OPERATIONS MANAGER Work Phone: [facility] 07-29-2024 13:20-0500 Body weight 76.66 kg Sharda Anjum FULL TIME.FACILITY OPERATIONS MANAGER Work Phone: [facility] 07-29-2024 13:20-0500 Diastolic blood pressure 76 mm[Hg] Sharda Langley FULL TIME.FACILITY OPERATIONS MANAGER Work Phone: [facility] 07-29-2024 13:20-0500 Systolic blood pressure 112 mm[Hg] Sharda Anjum FULL TIME.FACILITY OPERATIONS MANAGER Work Phone: [facility] 07-01-2024 11:22-0500 Body mass index (BMI) [Ratio] 28.97 kg/m2 Jeanette Patel MD Work Phone: [facility] 07-01-2024 11:22-0500 Body weight 76.57 kg Jeanette Patel MD Work Phone: [facility] 07-01-2024 11:22-0500 Diastolic blood pressure 84 mm[Hg] Jeanette Patel MD Work Phone: [facility] 07-01-2024 11:22-0500 Systolic blood pressure 120 mm[Hg] Jeanette Patel MD Work Phone: [facility] 06-19-2024 14:07-0500 Diastolic blood pressure 86 mm[Hg] Dr. David Mckinney MD Work Phone: [facility] 06-19-2024 14:07-0500 Heart rate 76 /min Dr. David Mckinney MD Work Phone: [facility] 06-19-2024 14:07-0500 Systolic blood pressure 135 mm[Hg] Dr. David Mckinney MD Work Phone: [facility] 06-19-2024 14:00-0500 Body temperature 98 [degF] Dr. David Mckinney MD Work Phone: [facility] 06-19-2024 14:00-0500 Respiratory rate 16 /min Dr. David Mckinney MD Work Phone: [facility] 06-19-2024 04:05-0500 SaO2% (BldA) [Mass fraction] 97 % Dr. David Mckinney MD Work Phone: [facility] 06-17-2024 11:34-0500 Body mass index (BMI) [Ratio] 31.7 kg/m2 Dr. David Mckinney MD Work Phone: [facility] 06-17-2024 11:34-0500 Body weight 86.[address] David Mckinney MD Work Phone: [facility] 06-17-2024 08:46-0500 Body mass index (BMI) [Ratio] 32.61 kg/m2 Nst Wstr Work Phone: [facility] 06-17-2024 08:46-0500 Body weight 86.18 kg Nst Wstr Work Phone: [facility] 06-17-2024 08:46-0500 Diastolic blood pressure 88 mm[Hg] Nst Wstr Work Phone: [facility] 06-17-2024 08:46-0500 Systolic blood pressure 131 mm[Hg] Nst Wstr Work Phone: [facility] 06-11-2024 10:53-0500 Body mass index (BMI) [Ratio] 33.3 kg/m2 Sarah Solomon MD Work Phone: [facility] 06-11-2024 10:53-0500 Body weight 88 kg Sarah Solomon MD Work Phone: [facility] 06-11-2024 10:53-0500 Diastolic blood pressure 82 mm[Hg] Sarah Soolmon MD Work Phone: [facility] 06-11-2024 10:53-0500 Systolic blood pressure 124 mm[Hg] Sarah Solomon MD Work Phone: [facility] 06-03-2024 13:57-0500 Body mass index (BMI) [Ratio] 33.47 kg/m2 Halle Orellana APRN.FACILITY OPERATIONS MANAGER Work Phone: [facility] 06-03-2024 13:57-0500 Body weight 88.45 kg Halle Orellana FULL TIME.FACILITY OPERATIONS MANAGER Work Phone: [facility] 06-03-2024 13:57-0500 Diastolic blood pressure 83 mm[Hg] Halle Orellana FULL TIME.FACILITY OPERATIONS MANAGER Work Phone: [facility] 06-03-2024 13:57-0500 Systolic blood pressure 121 mm[Hg] Halle Orellana FULL TIME.FACILITY OPERATIONS MANAGER Work Phone: [facility] 05-25-2024 13:29-0500 Body mass index (BMI) [Ratio] 33.64 kg/m2 Jeanette Patel MD Work Phone: [facility] 05-25-2024 13:29-0500 Body weight 88.91 kg Jeanette Patel MD Work Phone: [facility] 05-25-2024 13:29-0500 Diastolic blood pressure 79 mm[Hg] Jeanette Patel MD Work Phone: [facility] Comment on above: machine (LT) arm 05-25-2024 13:29-0500 Systolic blood pressure 122 mm[Hg] Jeanette Patel MD Work Phone: [facility] Comment on above: machine (LT) arm 05-12-2024 15:35-0500 Body mass index (BMI) [Ratio] 31.93 kg/m2 Sarah Solomon MD Work Phone: [facility] 05-12-2024 15:35-0500 Body weight 84.37 kg Sarah Solomon MD Work Phone: [facility] 05-12-2024 15:35-0500 Diastolic blood pressure 74 mm[Hg] Sarah Solomon MD Work Phone: [facility] 05-12-2024 15:35-0500 Systolic blood pressure 110 mm[Hg] Sarah Solomon MD Work Phone: [facility] 04-28-2024 13:36-0500 Body mass index (BMI) [Ratio] 31.76 kg/m2 Margarita Alcala MD Work Phone: [facility] [facility] 04-28-2024 13:36-0500 Body weight 83.92 kg Margarita Alcala MD Work Phone: [facility] 04-28-2024 13:36-0500 Diastolic blood pressure 78 mm[Hg] Margarita Alcala MD Work Phone: [facility] 04-28-2024 13:36-0500 Systolic blood pressure 122 mm[Hg] Margarita Alcala MD Work Phone: [facility] 04-14-2024 10:28-0400 Body mass index (BMI) [Ratio] 30.97 kg/m2 Margarita Alcala MD Work Phone: [facility] 04-14-2024 10:28-0400 Body weight 81.83 kg Margarita Alcala MD Work Phone: [facility] 04-14-2024 10:28-0400 Diastolic blood pressure 62 mm[Hg] Margarita Alcala MD Work Phone: [facility] 04-14-2024 10:28-0400 Systolic blood pressure 100 mm[Hg] Margarita Alcala MD Work Phone: [facility] 04-02-2024 16:17-0400 Body mass index (BMI) [Ratio] 30.73 kg/m2 Marcela Connors APRN.CNM Work Phone: [facility] 04-02-2024 16:17-0400 Body weight 81.19 kg Marcela Connors APRN.CNM Work Phone: [facility] 04-02-2024 16:17-0400 Diastolic blood pressure 68 mm[Hg] Marcela Connors APRN.CNM Work Phone: [facility] 04-02-2024 16:17-0400 Systolic blood pressure 116 mm[Hg] Marcela Connors APRN.CNM Work Phone: [facility] 09-25-2024 15:01-0400 Body mass index (BMI) [Ratio] 30.04 kg/m2 Jt Lugo MD Work Phone: [facility] 03-17-2024 15:01-0400 Body weight 79.38 kg Jt Lugo MD Work Phone: [facility] 03-17-2024 15:01-0400 Diastolic blood pressure 62 mm[Hg] Jt Lugo MD Work Phone: [facility] 03-17-2024 15:01-0400 Systolic blood pressure 114 mm[Hg] Jt Lugo MD Work Phone: [facility] 02-17-2024 11:06-0400 Body mass index (BMI) [Ratio] 29.7 kg/m2 Margarita Alcala MD Work Phone: [facility] 02-17-2024 11:06-0400 Body weight 78.47 kg Margarita Alcala MD Work Phone: [facility] 02-17-2024 11:06-0400 Diastolic blood pressure 76 mm[Hg] Margarita Alcala MD Work Phone: [facility] 02-17-2024 11:06-0400 Systolic blood pressure 116 mm[Hg] Margarita Alcala MD Work Phone: [facility] 02-17-2024 08:30-0400 Body mass index (BMI) [Ratio] 29.7 kg/m2 Vilma Farrell MD Work Phone: [facility] 02-17-2024 08:30-0400 Body weight 78.47 kg Vilma Farrell MD Work Phone: [facility] 02-17-2024 08:30-0400 Diastolic blood pressure 76 mm[Hg] Vilma Farrell MD Work Phone: [facility] 02-17-2024 08:30-0400 Systolic blood pressure 116 mm[Hg] Vlima Farrell MD Work Phone: [facility] 01-20-2024 14:21-0400 Body mass index (BMI) [Ratio] 29.18 kg/m2 Sarah Solomon MD Work Phone: [facility] 01-20-2024 14:21-0400 Body weight 77.11 kg Sarah Solomon MD Work Phone: [facility] 01-20-2024 14:21-0400 Diastolic blood pressure 78 mm[Hg] Sarah Solomon MD Work Phone: [facility] 01-20-2024 14:21-0400 Systolic blood pressure 114 mm[Hg] Sarah Solomon MD Work Phone: [facility] 01-01-2024 09:55-0400 Body mass index (BMI) [Ratio] 30.38 kg/m2 Jeanette Patel MD Work Phone: [facility] 01-01-2024 09:55-0400 Body weight 80.29 kg Jeanette Patel MD Work Phone: [facility] 01-01-2024 09:55-0400 Diastolic blood pressure 68 mm[Hg] Jeanette Patel MD Work Phone: [facility] 01-01-2024 09:55-0400 Systolic blood pressure 110 mm[Hg] Jeanette Patel MD Work Phone: [facility] 12-01-2023 12:02-0400 Body mass index (BMI) [Ratio] 30.73 kg/m2 Tyshawn Lorenzana MD Work Phone: [facility] 12-01-2023 12:02-0400 Body weight 81.19 kg Tyshawn Lorenzana MD Work Phone: [facility] 12-01-2023 12:02-0400 Diastolic blood pressure 76 mm[Hg] Tyshawn Lorenzana MD Work Phone: [facility] 12-01-2023 12:02-0400 Systolic blood pressure 112 mm[Hg] Tyshawn Lorenzana MD Work Phone: [facility] 11-13-2023 14:35-0400 Body height 162.6 cm [facility] FULL TIME.FACILITY OPERATIONS MANAGER Work Phone: [facility] 11-13-2023 14:35-0400 Body mass index (BMI) [Ratio] 30.52 kg/m2 Sharda Anjum FULL TIME.FACILITY OPERATIONS MANAGER Work Phone: [facility] 11-13-2023 14:35-0400 Body weight 80.65 kg Sharda Anjum FULL TIME.FACILITY OPERATIONS MANAGER Work Phone: [facility] 11-13-2023 14:35-0400 Diastolic blood pressure 80 mm[Hg] Sharda Anjum FULL TIME.FACILITY OPERATIONS MANAGER Work Phone: [facility] 11-13-2023 14:35-0400 Systolic blood pressure 120 mm[Hg] [facility] FULL TIME.FACILITY OPERATIONS MANAGER Work Phone: [facility] 08-10-2023 12:47-0500 Body temperature 98.1 [degF] [facility] 08-10-2023 12:47-0500 Diastolic blood pressure 87 mm[Hg] [facility] 08-10-2023 12:47-0500 Heart rate 62 /min [facility] 08-10-2023 12:47-0500 Respiratory rate 14 /min [facility] 08-10-2023 12:47-0500 SaO2% (BldA) [Mass fraction] 100 % [facility] 08-10-2023 12:47-0500 Systolic blood pressure 124 mm[Hg] [facility] 08-10-2023 10:18-0500 Body height 167.[address] [facility] 08-10-2023 10:18-0500 Body mass index (BMI) [Ratio] 30.2 kg/m2 [facility] 08-10-2023 10:18-0500 Body weight 84.[address] [facility] 07-17-2023 15:42-0500 Body height 167.[address] [facility] 07-17-2023 15:42-0500 Body mass index (BMI) [Ratio] 30.1 kg/m2 [facility] 07-17-2023 15:42-0500 Body temperature 97.6 [degF] [facility] 07-17-2023 15:42-0500 Body weight 84.[address] [facility] 07-17-2023 15:42-0500 Diastolic blood pressure 87 mm[Hg] [facility] 07-17-2023 15:42-0500 Heart rate 89 /min [facility] 07-17-2023 15:42-0500 Respiratory rate 18 /min [facility] 07-17-2023 15:42-0500 SaO2% (BldA) [Mass fraction] 100 % [facility] 07-17-2023 15:42-0500 Systolic blood pressure 121 mm[Hg] [facility] 06-10-2023 10:55-0500 Body height 167.[address] [facility] 06-10-2023 10:55-0500 Body mass index (BMI) [Ratio] 29.4 kg/m2 [facility] 06-10-2023 10:55-0500 Body temperature 97.1 [degF] [facility] 06-10-2023 10:55-0500 Body weight 82.[address] [facility] 06-10-2023 10:55-0500 Diastolic blood pressure 82 mm[Hg] [facility] 06-10-2023 10:55-0500 Heart rate 74 /min [facility] 06-10-2023 10:55-0500 Respiratory rate 16 /min [facility] 06-10-2023 10:55-0500 SaO2% (BldA) [Mass fraction] 100 % [facility] 06-10-2023 10:55-0500 Systolic blood pressure 118 mm[Hg] [facility] 05-11-2023 17:06-0500 Body height 167.[address] [facility] 05-11-2023 17:06-0500 Body mass index (BMI) [Ratio] 29.5 kg/m2 [facility] 05-11-2023 17:06-0500 Body temperature 97.5 [degF] [facility] 05-11-2023 17:06-0500 Body weight [address] [facility] 05-11-2023 17:06-0500 Diastolic blood pressure 98 mm[Hg] [facility] 05-11-2023 17:06-0500 Heart rate 101 /min [facility] 05-11-2023 17:06-0500 Respiratory rate 16 /min [facility] 05-11-2023 17:06-0500 SaO2% (BldA) [Mass fraction] 98 % [facility] 05-11-2023 17:06-0500 Systolic blood pressure 119 mm[Hg] [facility] 02-24-2023 15:52-0400 Body height 167.[address] [facility] 02-24-2023 15:52-0400 Body mass index (BMI) [Ratio] 29 kg/m2 [facility] 02-24-2023 15:52-0400 Body temperature 97.3 [degF] [facility] 02-24-2023 15:52-0400 Body weight 81.[address] [facility] 02-24-2023 15:52-0400 Diastolic blood pressure 79 mm[Hg] [facility] 02-24-2023 15:52-0400 Heart rate 106 /min [facility] 02-24-2023 15:52-0400 Respiratory rate 18 /min [facility] 02-24-2023 15:52-0400 SaO2% (BldA) [Mass fraction] 98 % [facility] 02-24-2023 15:52-0400 Systolic blood pressure 120 mm[Hg] [facility] 01-08-2023 16:23-0400 Body temperature 97.8 [degF] [facility] 01-08-2023 16:23-0400 Diastolic blood pressure 76 mm[Hg] [facility] 01-08-2023 16:23-0400 Heart rate 78 /min [facility] 01-08-2023 16:23-0400 Respiratory rate 14 /min [facility] 01-08-2023 16:23-0400 SaO2% (BldA) [Mass fraction] 99 % [facility] 01-08-2023 16:23-0400 Systolic blood pressure 126 mm[Hg] [facility] 01-08-2023 15:15-0400 Body height 167.[address] [facility] 01-08-2023 15:15-0400 Body mass index (BMI) [Ratio] 29.6 kg/m2 [facility] 01-08-2023 15:15-0400 Body weight 83.[address] [facility] 06-07-2022 18:58-0500 Body temperature 98.6 [degF] Everardo Patel APRN.FACILITY OPERATIONS MANAGER Work Phone: [facility] 06-07-2022 18:58-0500 Body weight 78.74 kg Everardo Patel APRN.FACILITY OPERATIONS MANAGER Work Phone: [facility] 06-07-2022 18:58-0500 Diastolic blood pressure 84 mm[Hg] Everardo Patel APRN.FACILITY OPERATIONS MANAGER Work Phone: [facility] 06-07-2022 18:58-0500 Heart rate 66 /min Everardo Patel APRN.FACILITY OPERATIONS MANAGER Work Phone: [facility] 06-07-2022 18:58-0500 Respiratory rate 18 /min Everardo Patel APRN.FACILITY OPERATIONS MANAGER Work Phone: [facility] 06-07-2022 18:58-0500 SaO2% (BldA) [Mass fraction] 100 % Everardo Patel APRN.FACILITY OPERATIONS MANAGER Work Phone: [facility] 06-07-2022 18:58-0500 Systolic blood pressure 136 mm[Hg] Everardo Ptael APRN.FACILITY OPERATIONS MANAGER Work Phone: [facility] 02-22-2022 16:09-0400 Body temperature 98.7 [degF] [facility] Work Phone: 02-22-2022 16:09-0400 Diastolic blood pressure 77 mm[Hg] [facility] Work Phone: 02-22-2022 16:09-0400 Heart rate 72 /min [facility] Work Phone: 02-22-2022 16:09-0400 Respiratory rate 16 /min [facility] Work Phone: 02-22-2022 16:09-0400 SaO2% (BldA) [Mass fraction] 98 % [facility] Work Phone: 02-22-2022 16:09-0400 Systolic blood pressure 116 mm[Hg] [facility] Work Phone: 02-20-2022 16:39-0400 Body height 165.[address] [facility] Work Phone: 02-20-2022 16:39-0400 Body mass index (BMI) [Ratio] 33.1 kg/m2 [facility] Work Phone: 02-20-2022 16:39-0400 Body weight 90.[address] [facility] Work Phone: 02-17-2022 14:57-0400 Heart rate 95 /min [facility] Work Phone: 02-17-2022 14:57-0400 SaO2% (BldA) [Mass fraction] 97 % [facility] Work Phone: 02-17-2022 13:22-0400 Body temperature 98.4 [degF] [facility] Work Phone: 02-17-2022 13:22-0400 Diastolic blood pressure 69 mm[Hg] [facility] Work Phone: 02-17-2022 13:22-0400 Systolic blood pressure 139 mm[Hg] [facility] Work Phone: 02-17-2022 12:53-0400 Body height 165.[address] [facility] Work Phone: 02-17-2022 12:53-0400 Body mass index (BMI) [Ratio] 33.1 kg/m2 [facility] Work Phone: 02-17-2022 12:53-0400 Body weight 90.[address] [facility] Work Phone: 12-22-2021 21:18-0400 Body height 165.[address] [facility] Work Phone: 12-22-2021 21:18-0400 Body mass index (BMI) [Ratio] 31.6 kg/m2 [facility] Work Phone: 12-22-2021 21:18-0400 Body temperature 97.8 [degF] [facility] Work Phone: 12-22-2021 21:18-0400 Body weight 86.[address] [facility] Work Phone: 12-22-2021 21:18-0400 Diastolic blood pressure 96 mm[Hg] [facility] Work Phone: 12-22-2021 21:18-0400 Heart rate 89 /min [facility] Work Phone: 12-22-2021 21:18-0400 Respiratory rate 16 /min [facility] Work Phone: 12-22-2021 21:18-0400 SaO2% (BldA) [Mass fraction] 97 % [facility] Work Phone: 12-22-2021 21:18-0400 Systolic blood pressure 115 mm[Hg] [facility] Work Phone: 11-22-2021 13:53-0400 Diastolic blood pressure 57 mm[Hg] [facility] Work Phone: 11-22-2021 13:53-0400 Heart rate 91 /min [facility] Work Phone: 11-22-2021 13:53-0400 Systolic blood pressure 123 mm[Hg] [facility] Work Phone: 11-22-2021 13:52-0400 Body temperature 98.2 [degF] [facility] Work Phone: 11-22-2021 13:52-0400 SaO2% (BldA) [Mass fraction] 99 % [facility] Work Phone: 11-22-2021 13:43-0400 Body height 165.[address] [facility] Work Phone: 11-22-2021 13:43-0400 Body mass index (BMI) [Ratio] 30.7 kg/m2 [facility] Work Phone: 11-22-2021 13:43-0400 Body weight 83.[address] [facility] Work Phone: 11-04-2021 06:53-0400 Heart rate 80 /min Dr. David Mckinney Work Phone: [facility] Work Phone: 11-04-2021 06:53-0400 SaO2% (BldA) [Mass fraction] 98 % Dr. David Mckinney Work Phone: [facility] Work Phone: 11-04-2021 04:23-0400 Body temperature 97.8 [degF] Dr. David Mckinney Work Phone: [facility] Work Phone: 11-04-2021 04:23-0400 Diastolic blood pressure 57 mm[Hg] Dr. David Mckinney Work Phone: [facility] Work Phone: 11-04-2021 04:23-0400 Systolic blood pressure 106 mm[Hg] Dr. David Mckinney Work Phone: [facility] Work Phone: 11-03-2021 21:27-0400 Body height 165.[address] David Mckinney Work Phone: [facility] Work Phone: 11-03-2021 21:27-0400 Body mass index (BMI) [Ratio] 29.9 kg/m2 Dr. David Mckinney Work Phone: [facility] Work Phone: 11-03-2021 21:27-0400 Body weight 81.[address] David Mckinney Work Phone: [facility] Work Phone: 09-13-2021 14:46-0400 Heart rate 68 /min Dr. David Mckinney Work Phone: [facility] Work Phone: 09-13-2021 14:46-0400 Respiratory rate 16 /min Dr. David Mckinney Work Phone: [facility] Work Phone: 09-13-2021 14:46-0400 SaO2% (BldA) [Mass fraction] 98 % Dr. David Mckinney Work Phone: [facility] Work Phone: 09-13-2021 14:29-0400 Diastolic blood pressure 74 mm[Hg] Dr. David Mckinney Work Phone: [facility] Work Phone: 09-13-2021 14:29-0400 Systolic blood pressure 109 mm[Hg] Dr. David Mckinney Work Phone: [facility] Work Phone: 09-13-2021 11:20-0400 Body mass index (BMI) [Ratio] 27.3 kg/m2 Dr. David Mckinney Work Phone: [facility] Work Phone: 09-13-2021 11:20-0400 Body temperature 98 [degF] Dr. David Mckinney Work Phone: [facility] Work Phone: 09-13-2021 11:20-0400 Body weight 74.[address] David Mckinney Work Phone: [facility] Work Phone: 07-19-2021 09:45-0500 Body mass index (BMI) [Ratio] 27.9 kg/m2 Dr. David Mckinney Work Phone: [facility] Work Phone: 07-19-2021 09:45-0500 Body temperature 98 [degF] Dr. David Mckinney Work Phone: [facility] Work Phone: 07-19-2021 09:45-0500 Body weight 76.[address] David Mckinney Work Phone: [facility] Work Phone: 07-19-2021 09:45-0500 Diastolic blood pressure 72 mm[Hg] Dr. David Mckinney Work Phone: [facility] Work Phone: 07-19-2021 09:45-0500 Heart rate 111 /min Dr. David Mckinney Work Phone: [facility] Work Phone: 07-19-2021 09:45-0500 Respiratory rate 16 /min Dr. David Mckinney Work Phone: [facility] Work Phone: 07-19-2021 09:45-0500 SaO2% (BldA) [Mass fraction] 99 % Dr. David Mckinney Work Phone: [facility] Work Phone: 07-19-2021 09:45-0500 Systolic blood pressure 116 mm[Hg] Dr. David Mckinney Work Phone: [facility] Work Phone: Encounters Encounter Date Encounter Type Care Provider Facility Start: 04-18-2025 End: 04-18-2025 ambulatory David Mckinney Facility:[facility] Start: 04-14-2025 End: 04-14-2025 ambulatory SARAH SOLOMON Facility:[facility] Start: 04-09-2025 End: 04-09-2025 Emergency department patient visit Dr. Torres Abraham MD -Emergency Department Work Phone: Start: 03-22-2025 End: 03-22-2025 ambulatory JT LUGO Facility:[facility] Start: 03-17-2025 End: 03-17-2025 ambulatory JEANETTE PATEL Facility:[facility] Start: 03-10-2025 End: 03-10-2025 Emergency department patient visit Dr. David Mckinney MD Work Phone: -Emergency Department Work Phone: Start: 02-10-2025 End: 02-10-2025 ambulatory JT LUGO Facility:[facility] Start: 02-09-2025 End: 02-09-2025 Patient [...] Start: 02-09-2025 End: 02-09-2025 ambulatory JT LUGO Facility:[facility] Start: 02-03-2025 End: 02-03-[address] David Mckinney MD Work Phone: -Laboratory Specimen Start: 02-03-2025 End: 02-03-[address] David Mckinney MD -Laboratory Specimen Work Phone: Start: 02-03-2025 End: 02-03-2025 ambulatory David Mckinney Facility:[facility] Start: 02-01-2025 End: 02-01-[address] David Mckinney MD Work Phone: -Laboratory [facility] Start: 02-01-2025 End: 02-01-[address] David Mckinney MD -Laboratory [facility] Start: 02-01-2025 End: 02-01-2025 ambulatory aDvid Mckinney Facility:[facility] Start: 01-28-2025 End: 01-28-2025 Patient encounter procedure Kale Zimmerman [place] -[facility] Work Phone: Start: 01-28-2025 End: 01-28-[address] 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 Shelley Mathews Work Phone: Obstetrics/Gynecology Comment on [...] nicotine containing substance; 20 weeks gestation of ([facility]) Encounter for leatha seals screening for malformation using ultrasound ([facility]) (Primary Dx); 20 weeks gestation of (HCC) Start: 01-12-2025 End: 01-12-2025 ambulatory SARAH SOLOMON Facility:[facility] Start: 01-10-2025 End: 01-10-2025 ambulatory SOY CASSIDY Facility:[facility] Start: 12-31-2024 End: 12-31-2024 ambulatory SOY CASSIDY Facility:[facility] Start: 12-31-2024 End: 12-31-2024 Patient encounter procedure Soy Cassidy MD Work Phone: OB/Gynecology Comment on above: History of gestation al hypertension (Primary Dx); History of drug abuse (HCC); Late care ([facility]); Encounter for supervision of high risk in second trimester, antepartum ([facility]); Vapes nicotine containing substance; Generalized anxiety disorder; 18 weeks gestation of ([facility]); Dysuria; Elevated blood pressure reading without diagnosis of hypertension Start: 2024 End: 2024 ambulatory Jo Sweeney RN NURSE CHEMICAL EDUCATOR Comment on above: Headache Start: 12-11-2024 End: 12-11-2024 Emergency department patient visit Dr. David Mckinney MD Work Phone: -Emergency Department Work Phone: Start: 11-25-2024 End: 01-25-2025 Follow-up encounter Johana Turner APRN.CNM Work Phone: OB/Gynecology Start: 11-19-2024 End: 11-19-2024 ambulatory JOHANA [facility] Facility:[facility] Start: 11-19-2024 End: 11-19-2024 Telephone encounter [...] of [facility] Start: 11-18-2024 End: 11-18-2024 ambulatory [facility] Facility:[facility] Start: 11-11-2024 End: 11-11-2024 ambulatory [facility] Facility:[facility] Start: 10-22-2024 End: 10-22-2024 E-mail encounter from caregiver Halle Orellana GLORIA Work Phone: OB/Gynecology Start: 10-22-2024 End: 10-22-2024 Patient encounter procedure Halle Orellana APRN.CNP Work Phone: OB/Gynecology Comment on above: New Ob appointment Start: 10-21-2024 End: 10-21-[address] David Mckinney MD Work Phone: [facility] Work Phone: Start: 10-21-2024 End: 10-21-2024 Patient encounter procedure Rizwan Cárdenas DO -Ultrasound, [facility] Work Phone: Start: 10-21-2024 End: 10-21-2024 ambulatory Rizwan Cárdenas Facility:[facility] Start: 10-11-2024 End: 10-12-2024 Emergency department patient visit Dr. 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 David Mckinney MD Work Phone: -Emergency Department Work Phone: Start: 09-16-2024 End: 09-16-2024 ambulatory HORTENCIA GOULD Facility:[facility] Start: 09-16-2024 End: 09-16-2024 Patient encounter procedure Hortencia Gould APRN.FACILITY OPERATIONS MANAGER Work Phone: OB/Gynecology Comment on above: Encounter for IUD in sertion (Primary Dx) Start: 08-06-2024 End: 10-06-2024 Follow-up encounter Sharda Valero APRN.FACILITY OPERATIONS MANAGER Work Phone: OB/Gynecology Comment on above: Results Start: 07-29-2024 End: 07-29-2024 ambulatory SHARDA VALERO Facility:[facility] Start: 07-29-2024 End: 07-29-2024 Patient encounter procedure Sharda Valero APRN.FACILITY OPERATIONS MANAGER Work Phone: OB/Gynecology Comment on above: care and examination (Primary Dx); Screening for malignant neoplasm of cervix; Encounter for other general counseling or advice on contraception Start: 07-14-2024 Encounter for genera l adult medical examination without abnormal findings [facility] Start: 07-01-2024 End: 07-01-2024 ambulatory JEANETTE PATEL Facility:[facility] Start: 07-01-2024 End: 07-01-2024 Patient encounter [...] Start: 06-17-2024 End: 06-17-2024 ambulatory JOHANA TURNER Facility:[facility] Start: 06-17-2024 End: 06-17-2024 Patient encounter procedure Johana Turner FULL TIME.CNM Work Phone: OB/Gynecology Comment on above: Supervision [...] Start: 06-14-2024 End: 06-14-2024 ambulatory Marcela Connors Facility:[facility] Start: 06-14-2024 End: 06-14-2024 Patient encounter procedure Marcela [facility] Work Phone: Start: 06-11-2024 End: 06-11-2024 ambulatory SARAH SOLOMON Facility:[facility] Start: 06-11-2024 End: 06-11-2024 Patient encounter [...] Start: 06-09-2024 End: 06-09-2024 ambulatory Carlos Morales RNsolution design and analysis manager [facility] Comment on above: Blood Management Start: 06-04-2024 End: 06-04-2024 ambulatory HALLE ORELLANA Facility:[facility] Start: 06-03-2024 End: 06-03-2024 Patient encounter procedure Halle Hernadezrebecca RIVERAFACILITY OPERATIONS MANAGER Work Phone: OB/Gynecology Comment on above: Supervision of high risk in third trimester (Primary Dx); 35 weeks gestation of ; Polyhydramnios in third trimester complication, single or unspecified fetus; History of IUFD; History of gestational hypertension; Antepartum anemia complicating in third trimester; Obesity affecting in third trimester, unspecified obesity type Start: 06-03-2024 End: 06-03-2024 ambulatory HALLEDONNIE ORELLANA Facility:[facility] Start: 06-03-2024 End: 06-07-2024 Telephone encounter Halle Orellana APRN.FACILITY OPERATIONS MANAGER Work Phone: OB/Gynecology Comment on above: Results Start: 05-25-2024 End: 05-25-2024 ambulatory JEANETTE PATEL Facility:[facility] Start: 05-25-2024 End: 05-25-2024 Patient encounter procedure Jeanette Patel MD Work Phone: OB/Gynecology Comment on above: Supervision of high risk in third trimester (Primary Dx); 34 weeks gestation of Start: 05-20-2024 End: 05-20-2024 ambulatory Deanna Olivares RN NURSE CHEMICAL EDUCATOR Comment on above: Patient Update Start: 05-12-2024 End: 05-12-2024 Patient encounter procedure Whi Tech 1 [employer]erglass Pipe Covering Supervisor [facility] Maternal Medicine Comment on [...] Start: 05-12-2024 End: 05-12-2024 ambulatory JT LUGO Facility:[facility] Start: 04-29-2024 End: 04-29-2024 Telephone encounter Margarita Alcala MD Work Phone: OB/Gynecology Start: 04-28-2024 End: 04-28-2024 ambulatory MARGARITA ALCALA Facility:[facility] Start: 04-28-2024 End: 04-28-2024 Office outpatient visit 15 minutes Margarita Alcala MD Work Phone: OB/Gynecology Comment on above: Supervision of high risk in third trimester (Primary Dx); 30 weeks gestation of ; History of IUFD Start: 04-22-2024 End: 04-22-2024 Telephone encounter Johana Turner APRN.CNM Work Phone: OB/Gynecology Comment on above: OB Pain Start: 04-19-2024 End: 04-19-2024 Telephone encounter Nurse [employer]erg[employer] Pipe Covering Supervisor [facility] Work Phone: Obstetrics/Gynecology Comment on above: PRAF Start: 04-14-2024 End: 04-14-2024 Patient encounter procedure Fiberg[employer] Pipe Covering Supervisor [facility] Work Phone: Maternal Medicine Comment on above: Encounter for ultras ound to check growth (Primary Dx); History of IUFD; 28 weeks gestation of ; Polyhydramnios in third trimester complication, single or unspecified fetus Supervision of other high risk pregnancies, third trimester (Primary Dx); Polyhydramnios in third trimester complication, single or unspecified fetus; History of IUFD Start: 04-14-2024 End: 04-14-2024 Office outpatient visit 15 minutes Margarita Alcala MD Work Phone: OB/Gynecology Comment on above: 28 weeks gestation o f (Primary Dx); Supervision of high risk in second trimester; History of IUFD; Need for vaccination Start: 04-02-2024 End: 04-02-2024 Patient encounter procedure [...] Start: 02-18-2024 End: 02-18-2024 Telephone encounter Nurse Fiberglass Pipe Covering Supervisor margarita Shelby Work Phone: Obstetrics/Gynecology Comment on above: PRAF [...] 08-10-2023 End: 08-10-2023 Emergency department patient visit [facility]-Emergency Department Work Phone: Start: 07-17-2023 End: 07-17-2023 Emergency department patient visit [facility]Emergency Department Work Phone: Start: 07-04-2023 End: 07-04-2023 ambulatory [facility] Work Phone: Start: 07-04-2023 End: 07-04-2023 Patient encounter procedure [facility] Start: 06-10-2023 End: 06-10-2023 Emergency department patient visit [facility]Emergency Department Work Phone: Start: 05-11-2023 End: 05-11-2023 Emergency department patient visit [facility]Emergency Department Work Phone: Start: 05-01-2023 End: 05-01-2023 ambulatory [facility] Work Phone: Start: 05-01-2023 End: 05-01-2023 Patient encounter procedure [facility] Start: 04-02-2023 End: 04-02-2023 ambulatory [facility] Work Phone: Start: 04-02-2023 End: 04-02-2023 Discharged Recurring [facility]-Physical Therapy Work Phone: Start: 03-12-2023 End: 03-12-2023 Patient encounter procedure [facility] Work Phone: Start: 02-24-2023 End: 02-24-2023 Emergency department patient visit [facility]Emergency Department Work Phone: Start: 01-08-2023 End: 01-08-2023 Emergency department patient visit [facility]Emergency Department Work Phone: Start: 12-26-2022 End: 12-26-2022 ambulatory [facility] Work Phone: Start: 12-26-2022 End: 12-26-2022 Patient encounter procedure [facility] Start: 10-30-2022 End: 10-30-2022 ambulatory [facility] Work Phone: Start: 10-30-2022 End: 10-30-2022 [facility] Start: 08-16-2022 End: 08-16-2022 ambulatory [facility] Work Phone: Start: 08-16-2022 End: 08-16-2022 Patient encounter procedure [facility]-Laboratory, Specimen Start: 06-07-2022 End: 06-07-2022 Patient encounter procedure Everardo Patel APRN.FACILITY OPERATIONS MANAGER Work Phone: [facility] Comment on above: Acute otitis media, right (Primary Dx); URI, acute Start: 02-20-2022 End: 02-22-2022 Evaluation and management of inpatient [facility] Start: 02-17-2022 End: 02-17-2022 ambulatory [facility] Work Phone: Start: 02-17-2022 End: 02-17-2022 Patient encounter procedure [facility], Outpatients Start: 02-13-2022 End: 02-13-2022 ambulatory [facility] Work Phone: Start: 02-13-2022 End: 02-13-2022 Patient encounter procedure [facility]-Laboratory, Specimen Start: 12-23-2021 End: 12-23-2021 Patient encounter procedure [facility]-Vascular Lab Start: 12-22-2021 End: 12-22-2021 [facility] Start: 12-13-2021 End: 12-13-2021 [facility] [place] [facility] Start: 11-22-2021 End: 11-22-2021 Patient encounter procedure [facility], Outpatients Start: 11-03-2021 End: 11-04-[address] David Mckinney Work Phone: [facility], Outpatients Start: 09-13-2021 End: 09-13-2021 Emergency department patient visit Dr. David Mckinney Work Phone: [facility]-Emergency Department Start: 08-01-2021 End: 08-01-[address] [facility] Mckinney [facility] [place] [facility] Start: 07-19-2021 End: 07-19-[address] David Mckinney Work Phone: [facility] Start: 07-09-2021 End: 07-09-[address] David Mckinney [facility] [place] [facility] Procedures Date Procedure Procedure Detail Performing Clinician Start: 04-18-2025 Urnls dip stick/tabl et reagent auto microscopy Dr. David Mckinney MD Work Phone: Start: 04-09-2025 Radex ankle complete minimum [address] David Mckinney MD Work Phone: Start: 03-10-2025 SARS-CoV-2, Influenz a & RSV (PCR) Dr. David Mckinney MD Work Phone: Start: 02-09-2025 Urnls dip stick/tabl et rgnt non-auto w/o micrscp Jt Lugo MD Work Phone: Start: 02-03-2025 Urnls dip stick/tabl et reagent auto microscopy Dr. David Mckinney MD Work Phone: Start: 02-03-[address] David Mckinney MD Work Phone: Start: 01-12-2025 Us preg uterus after 1st trimest 1/ gestation Johana Johnny FULL TIME.CNM Work Phone: Start: 12-11-2024 Urnls dip stick/tabl et reagent auto microscopy Dr. David Mckinney MD Work Phone: Start: 12-11-[address] David Mckinney MD Work Phone: Start: 11-18-2024 Us uterus l imited 1/> fetuses Johanaad Turner FULL TIME.CNM Work Phone: Start: 11-11-2024 Antibody screen HALLE DURBIN Comment on above: Order Comment: Speci men Type: BLOOD SPECIMEN Ordering Facility: [facility] Address: [address] [place] [id number] Performed By: #### M AT21 #### [facility] CLIA [id number] [address] [place] [address] Start: 10-21-2024 Transvaginal obstetr ic ultrasonography Dr. David Mckinney MD Work Phone: Start: 10-12-[address] David Mckinney MD Work Phone: Start: 10-12-2024 Urnls dip stick/tabl et reagent auto microscopy Dr. David Mckinney MD Work Phone: Start: 10-12-[address] David Mckinney MD Work Phone: Start: 09-16-2024 UA DIP,URINE HCG (POC) Hortencia Gould FULL TIME.FACILITY OPERATIONS MANAGER Work Phone: Start: 06-17-2024 Urnls dip stick/tabl et rgnt non-auto w/o micrscp Johana Turner FULL TIME.CNM Work Phone: Start: 06-11-2024 Urnls dip stick/tabl et rgnt non-auto w/o micrscp Sarah Solomon MD Work Phone: Start: 06-11-2024 Us preg uterus after 1st trimest 06/23 gestation Jt Lugo MD Work Phone: Start: 06-03-2024 Urnls dip stick/tabl et rgnt non-auto w/o micrscp Halle Hernadezrebecca FULL TIME.FACILITY OPERATIONS MANAGER Work Phone: Start: 05-25-2024 Urnls dip stick/tabl [...] nuchal moncada slucency 1st gestation Sharda Laif FULL TIME.FACILITY OPERATIONS MANAGER Work Phone: Start: 11-13-2023 Iadna chlamydia trac homatis amplified probe tq Sharda Valero FULL TIME.FACILITY OPERATIONS MANAGER Work Phone: Start: 11-13-2023 Us uterus l imited 1/> fetuses Shardadodie Laif FULL TIME.FACILITY OPERATIONS MANAGER Work Phone: Start: 08-10-2023 SARS-CoV-2, Influenz a [...] Tdap) [facility] Start: 07-29-2027 Screening for malign ant neoplasm of cervix Cervical Cancer Screening [facility] Start: 08-01-2025 End: 08-01-2025 Patient encounter procedure 08/01/2025 3:30 PM EST Office Visit OB/Gynecology [address] [place] [address] Sharda Valero APRN.FACILITY OPERATIONS MANAGER [address] [place] [address] Annual OB/Gynecology Comment on above: Annual Start: 05-04-2025 End: 05-04-2025 Patient encounter procedure Maternal Medicine Comment on above: Growth Growth /OB Start: 04-18-2025 Nonstress test [facility] Start: 04-18-2025 Obstetric monitoring [facility] Start: 04-18-2025 Vital signs measurements [facility] Start: 04-18-2025 [facility] Start: 04-18-2025 End: 04-18-2025 Patient encounter procedure 33 weeks gestation of [facility] Work Phone: Start: 04-18-2025 Patient discharge [facility] Start: 04-06-2025 End: 04-06-2025 Patient encounter procedure Maternal Medicine Comment on above: Growth ob Start: 03-23-2025 End: 03-23-2025 Patient encounter procedure 03/23/2025 10:10 AM EDT Routine Office Visit OB/Gynecology [address] [place] [address] Jt Lugo MD [address] [place] [address] OB OB/Gynecology Comment on above: OB Start: 03-09-2025 End: 03-09-2025 ambulatory 03/09/2025 11:00 AM EDT Results Only Bari Medina [facility] Laboratory [address] [place] [address] LAB Bari Forreston [facility] Laboratory Comment on above: LAB Start: 03-09-2025 End: 03-09-2025 Patient encounter procedure Maternal Medicine Comment on above: Growth Growth /OB Start: 02-21-2025 Influenza vaccination [facility] Start: 02-09-2025 End: 05-11-2025 ANEMIA REFLEX PANEL ANEMIA REFLEX PANEL Lab Routine Encounter for supervision of high risk in second trimester, antepartum (HCC) Chronic hypertension complicating or reason for care during childbirth (HCC) Late care (HCC) Expected: 02/09/2025, Expires: 05/11/2025 [facility] Comment on above: Expected: 02/09/2025 , Expires: 05/11/2025 Start: 02-09-2025 End: 02-09-2026 GESTATIONAL GLUCOSE SCREEN, 1-HOUR, 50 GRAM, NON-FASTING GESTATIONAL GLUCOSE SCREEN, 1-HOUR, 50 GRAM, NON-FASTING Lab Routine Encounter for supervision of high risk in second trimester, antepartum (HCC) Chronic hypertension complicating or reason for care during childbirth (HCC) Late care (HCC) Expected: 02/09/2025, Expires: 02/09/2026 [facility] Work Phone: Comment on above: Expected: 02/09/2025 , Expires: 02/09/2026 Start: 02-09-2025 End: 02-09-2026 SYPHILIS TREPONEMAL W/REFLEX SYPHILIS TREPONEMAL W/REFLEX Lab Routine Encounter for supervision of high risk in second trimester, antepartum (HCC) Chronic hypertension complicating or reason for care during childbirth (HCC) Late care (HCC) Expected: 02/09/2025, Expires: 02/09/2026 [facility] Comment on above: Expected: 02/09/2025 , Expires: 02/09/2026 Start: 02-09-2025 End: 02-09-2025 Patient encounter procedure 02/09/2025 10:10 AM EDT Routine Office Visit OB/Gynecology [address] [place], [place] [address] Jt Lugo MD [address] [place] [address] OB OB/Gynecology Comment on above: OB Start: 01-12-2025 End: 01-12-2025 Patient encounter procedure Maternal Medicine Comment on above: Anatomy Anatomy US at 9am /O B Start: 12-31-2024 End: 04-01-2025 Bacteria identified in Urine by Culture BACTERIAL CULTURE, URINE Microbiology Routine Dysuria Expected: 12/31/2024, Expires: 04/01/2025 [facility] Comment on above: Expected: 12/31/2024 , Expires: 04/01/2025 Start: 12-31-2024 End: 04-01-2025 CBC panel - Blood by Automated count COMPLETE BLOOD COUNT Lab Routine History of gestational hypertension 18 weeks gestation of (HCC) Expected: 12/31/2024, Expires: 04/01/2025 [facility] Comment on above: Expected: 12/31/2024 , Expires: 04/01/2025 Start: 12-31-2024 End: 04-01-2025 Comprehensive metabolic 2000 panel - Serum or Plasma COMPREHENSIVE METABOLIC PANEL Lab Routine History of gestational hypertension Expected: 12/31/2024, Expires: 04/01/2025 [facility] Work Phone: Comment on above: Expected: 12/31/2024 , Expires: 04/01/2025 Start: 12-31-2024 End: 04-01-2025 Protein/Creatinine [Mass Ratio] in Urine PROTEIN / CREATININE RATIO Lab Routine History of gestational hypertension Expected: 12/31/2024, Expires: 04/01/2025 [facility] Comment on above: Expected: 12/31/2024 , Expires: 04/01/2025 Start: 12-31-2024 End: 04-01-2025 TOXICOLOGY SCREEN, ROUTINE URINE TOXICOLOGY SCREEN, ROUTINE URINE Lab Routine History of drug abuse ([facility]) Expected: 12/31/2024 (Approximate), Expires: 04/01/2025 [facility] Comment on above: Expected: 12/31/2024 (Approximate), Expires: 04/01/2025 Start: 12-31-2024 End: 12-31-2024 Patient encounter procedure 12/31/2024 1:10 PM EDT Routine Office Visit OB/Gynecology [address] [place] [id number] Soy Cassidy MD [address] [id number] 1st OB - LMP 08/19/24 OB/Gynecology Comment on above: 1st OB - LMP 08/19/24 Start: 12-17-2024 End: 12-17-2024 Patient encounter procedure 12/17/2024 12:50 PM EDT Routine Office Visit OB/Gynecology [address] [place] [address] Margarita Alcala MD [address] [place] [address] 1st OB - LMP 08/19/24 OB/Gynecology Comment on above: 1st OB - LMP 08/19/24 Start: 12-11-2024 [facility] Start: 12-11-2024 [facility] Start: 11-22-2024 End: 11-22-2024 Patient encounter procedure 11/22/2024 12:50 PM EDT Routine Office Visit OB/Gynecology [address] [place] [address] Margarita Alcala MD [address] [place] [address] New ob lmp 08/19/24 OB/Gynecology Comment on above: New ob lmp 08/19/24 Start: 11-18-2024 End: 02-17-2025 Chromosome 21 trisomy [Presence] in Blood or Tissue by Cytogenetics [facility] Comment on above: Expected: 11/18/2024 , Expires: 02/17/2025 Start: 11-18-2024 End: 11-18-2025 OBSTETRIC ULTRASOUND WHI OBSTETRIC ULTRASOUND WHI Anc Imaging Routine with uncertain dates, antepartum (HCC) 12 weeks gestation of (HCC) Expected: 11/18/2024, Expires: 11/18/2025 [facility] Comment on above: Expected: 11/18/2024 , Expires: 11/18/2025 Start: 11-18-2024 End: 02-17-2025 TYPE + SCREEN TYPE + SCREEN Blood Bank Routine with uncertain dates, antepartum (HCC) 12 weeks gestation of (HCC) Expected: 11/18/2024, Expires: 02/17/2025 [facility] Work Phone: Comment on above: Expected: 11/18/2024 , Expires: 02/17/2025 Start: 11-12-2024 End: 02-11-2025 CBC panel - Blood by Automated count COMPLETE BLOOD COUNT Lab Routine 6 weeks gestation of care, subsequent in first trimester Expected: 11/12/2024, Expires: 02/11/2025 [facility] Work Phone: Comment on above: Expected: 11/12/2024 , Expires: 02/11/2025 Start: 11-12-2024 End: 02-11-2025 Hemoglobin A1c in Blood HEMOGLOBIN A1C Lab Routine 6 weeks gestation of care, subsequent in first trimester Expected: 11/12/2024, Expires: 02/11/2025 [facility] Comment on above: Expected: 11/12/2024 , Expires: 02/11/2025 Start: 11-12-2024 End: 02-11-2025 Hepatitis B virus surface Ag [Presence] in Serum HEPATITIS B SURFACE ANTIGEN Lab Routine 6 weeks gestation of care, subsequent in first trimester Expected: 11/12/2024, Expires: 02/11/2025 [facility] Comment on above: Expected: 11/12/2024 , Expires: 02/11/2025 Start: 11-12-2024 End: 02-11-2025 Hepatitis C virus Ab [Presence] in Serum HEPATITIS C ANTIBODY IA WITH CONFIRMATION Lab Routine 6 weeks gestation of care, subsequent in first trimester Expected: 11/12/2024, Expires: 02/11/2025 [facility] Comment on above: Expected: 11/12/2024 , Expires: 02/11/2025 Start: 11-12-2024 End: 02-11-2025 HIV 1+2 Ab [Presence] in Serum or Plasma by Immunoassay HIV 1/2 COMBO WITH REFLEX TO DIFFERENTIATION Lab Routine 6 weeks gestation of care, subsequent in first trimester Expected: 11/12/2024, Expires: 02/11/2025 [facility] Comment on above: Expected: 11/12/2024 , Expires: 02/11/2025 Start: 11-12-2024 End: 02-11-2025 RUBELLA IGG ANTIBODY RUBELLA IGG ANTIBODY Lab Routine 6 weeks gestation of care, subsequent in first trimester Expected: 11/12/2024, Expires: 02/11/2025 [facility] Comment on above: Expected: 11/12/2024 , Expires: 02/11/2025 Start: 11-12-2024 End: 02-11-2025 SYPHILIS TOTAL W/REFLEX SYPHILIS TOTAL W/REFLEX Lab Routine 6 weeks gestation of care, subsequent in first trimester Expected: 11/12/2024, Expires: 02/11/2025 [facility] Comment on above: Expected: 11/12/2024 , Expires: 02/11/2025 Start: 11-12-2024 End: 02-11-2025 TYPE + SCREEN TYPE + SCREEN Blood Bank Routine 6 weeks gestation of care, subsequent in first trimester Expected: 11/12/2024, Expires: 02/11/2025 [facility] Comment on above: Expected: 11/12/2024 , Expires: 02/11/2025 Start: 11-12-2024 End: 11-12-2024 ambulatory 11/12/2024 11:15 AM EDT Results Only [facility] [address] [place] [address] [facility] Start: 10-25-2024 End: 10-25-2024 Patient encounter procedure 10/25/2024 11:00 AM EDT Initial Office Visit OB/Gynecology [address] [place] [address] Halle Orellana APRN.FACILITY OPERATIONS MANAGER [address] [place] [address] New ob lmp 08/19/24 OB/Gynecology Comment on above: New ob lmp 08/19/24 Start: 10-12-2024 Bacteria identified in Urine by Culture Urine Culture [facility] Start: 10-12-2024 Transvaginal obstetr ic ultrasonography [facility] Start: 10-12-2024 [facility] Start: 10-02-2024 End: 10-02-2024 [facility] Start: 08-03-2024 End: 08-03-2024 Patient encounter procedure 08/03/2024 9:30 AM EST Office Visit OB/Gynecology [address] [place] [address] Sharda Valero APRN.FACILITY OPERATIONS MANAGER [address] [place] [address] IUD insert OB/Gynecology Comment on above: IUD insert Start: 07-29-2024 End: 07-29-2024 Patient encounter procedure 07/29/2024 1:30 PM EST Office Visit OB/Gynecology [address] [place] [address] Sharda Valero, FULL TIME.FACILITY OPERATIONS MANAGER [address] [place] [address] PP OB/Gynecology Comment on above: PP Start: 07-05-2024 End: 07-05-2024 ambulatory 07/05/2024 1:30 PM EST Infusion Center Hematology/Oncology [address] [place] [address] 200 MG IRON SUCROSE 5/ 5 DOSES AUTH 06/22 * Hematology/Oncology Comment on above: 200 MG IRON SUCROSE 5/ 5 DOSES AUTH 06/22 * Start: 06-30-2024 End: 06-30-2024 ambulatory 06/30/2024 3:00 PM EST Infusion Center Hematology/Oncology [address] [place] [address] 200 MG IRON SUCROSE 3/ 5 DOSES AUTH 06/22 * Hematology/Oncology Comment on above: 200 MG IRON SUCROSE 3/ 5 DOSES AUTH 06/22 * Start: 06-28-2024 End: 06-28-2024 ambulatory 06/28/2024 9:00 AM EST Infusion Center Hematology/Oncology [address] [place] [address] 200 MG IRON SUCROSE / 5 DOSES AUTH 06/22 * Hematology/Oncology Comment on above: 200 MG IRON SUCROSE / 5 DOSES AUTH EXP 06/22 * Start: 06-22-2024 End: 06-22-2024 ambulatory 06/22/2024 8:30 AM EST Infusion Center Hematology/Oncology [address] [place] [address] 200 MG IRON SUCROSE 2/ 5 DOSES AUTH EXP 06/22 * Hematology/Oncology Comment on above: 200 MG IRON SUCROSE 2/ 5 DOSES AUTH EXP 06/22 * Start: 06-19-2024 Patient discharge [facility] Start: 06-18-2024 Administration of medication [facility] Start: 06-18-2024 Application of ice collar, cap or bag [facility] Start: 06-18-2024 Catheterization of vein [facility] Start: 06-18-2024 Introduction of urin liu catheter [facility] Start: 06-18-2024 Measuring intake and output [facility] Start: 06-18-2024 Notification of physician [facility] Start: 06-18-2024 Procedure discontinued [facility] Start: 06-18-2024 Provision of activit y privileges [facility] Start: 06-18-2024 Vital signs measurements [facility] Start: 06-18-2024 End: 06-18-2024 [facility] Start: 06-18-2024 Documentation procedure [facility] Start: 06-17-2024 Admission procedure [facility] Start: 06-17-2024 End: 06-17-2024 ambulatory 06/17/2024 3:00 PM [facility] Infusion Center Hematology/Oncology [address] [place] [address] START 200 MG IRON SUCROSE 1/ 5 DOSES AUTH EXP 06/22 * Hematology/Oncology Comment on above: START 200 MG IRON FLYNN CROSE 1/ 5 DOSES AUTH 06/22 * Start: 06-17-2024 End: 06-17-2024 Patient encounter procedure OB/Gynecology Comment on above: OB Routine OB/NST Start: 06-17-2024 Consultation [facility] Start: 06-14-2024 Bertrand's obstetrical version Version with Anesthesia (Not Applicable) [facility] Start: 06-14-2024 Catheterization of vein [facility] Start: 06-14-2024 Nonstress test [facility] Start: 06-14-2024 [facility] Start: 06-11-2024 End: 06-11-2024 Patient encounter procedure [...] series) [facility] Start: 04-28-2024 End: 04-28-2024 Patient encounter procedure 04/28/2024 1:30 PM EST Routine Office Visit OB/Gynecology [address] [place] [address] Margarita Alcala MD [address] [place] [address] Routine OB OB/Gynecology Comment on above: Routine OB Start: 04-14-2024 End: 04-14-2024 Patient encounter procedure Maternal Medicine Comment on above: Growth US OB Routine OB/Growth Start: 04-13-2024 End: 04-13-2024 Patient encounter procedure OB/Gynecology Comment on above: PEGGY Start: 03-19-2024 End: 03-19-2024 ambulatory 03/19/2024 2:00 PM EDT Results Only Bari Medina [facility] Laboratory [address] [place] [address] Bari Forreston [facility] Start: 03-17-2024 End: 03-17-2024 Patient encounter procedure OB/Gynecology Comment on above: growth OB Start: 03-17-2024 End: 06-16-2024 CBC W Auto Differential panel - Blood COMPLETE BLOOD COUNT AND DIFFERENTIAL Lab Routine History of IUFD History of gestational hypertension Supervision of high risk in second trimester 24 weeks gestation of Expected: 03/17/2024, Expires: 06/16/2024 [facility] Comment on above: Expected: 03/17/2024 , Expires: 06/16/2024 Start: 03-17-2024 End: 06-16-2024 GESTATIONAL GLUCOSE SCREEN, 1-HOUR, 50 GRAM, NON-FASTING GESTATIONAL GLUCOSE SCREEN, 1-HOUR, 50 GRAM, NON-FASTING Lab Routine History of IUFD History of gestational hypertension Supervision of high risk in second trimester 24 weeks gestation of Expected: 03/17/2024, Expires: 06/16/2024 [facility] Work Phone: Comment on above: Expected: 03/17/2024 , Expires: 06/16/2024 Start: 03-17-2024 End: 06-16-2024 SYPHILIS TOTAL W/REFLEX SYPHILIS TOTAL W/REFLEX Lab Routine History of IUFD History of gestational hypertension Supervision of high risk in second trimester 24 weeks gestation of Expected: 03/17/2024, Expires: 06/16/2024 [facility] Comment on above: Expected: 03/17/2024 , Expires: 06/16/2024 Start: 03-16-2024 End: 03-16-2024 Patient encounter procedure 03/16/2024 10:10 AM EDT Routine Office Visit OB/Gynecology [address] [place] [id number] Jt Lugo MD [address] [place] [address] PEGGY OB/Gynecology Comment on above: PEGGY Start: 02-22-2024 Covid-19 Vaccine ( season) Covid-19 Vaccine ( season) [facility] Start: 02-22-2024 Influenza vaccination [facility] Start: 02-17-2024 End: 02-17-2024 Patient encounter procedure Maternal Medicine Comment on above: Anatomy OB AnatomyMFM consult Start: 01-20-2024 End: 01-20-2024 Patient encounter procedure Maternal Medicine Comment on above: Growth/MFM CONSULT OB Start: 01-01-2024 End: 04-01-2024 Hemoglobin A1c in Blood [facility] Comment on above: Expected: 01/01/2024 , Expires: 04/01/2024 Start: 01-01-2024 End: 04-01-2024 Hepatitis B virus surface Ag [Presence] in Serum [facility] Comment on above: Expected: 01/01/2024 , Expires: 04/01/2024 Start: 01-01-2024 End: 04-01-2024 Hepatitis C virus Ab [Presence] in Serum [facility] Comment on above: Expected: 01/01/2024 , Expires: 04/01/2024 Start: 01-01-2024 End: 04-01-2024 HIV 1+2 Ab [Presence] in Serum or Plasma by Immunoassay [facility] Comment on above: Expected: 01/01/2024 , Expires: 04/01/2024 Start: 01-01-2024 End: 12-31-2024 OBSTETRIC ULTRASOUND WHI OBSTETRIC ULTRASOUND WHI Anc Imaging Routine Encounter for supervision of other normal in second trimester History of IUFD Expected: 01/01/2024, Expires: 12/31/2024 [facility] Work Phone: Comment on above: Expected: 01/01/2024 , Expires: 12/31/2024 Start: 01-01-2024 End: 04-01-2024 RUBELLA IGG ANTIBODY [facility] Comment on above: Expected: 01/01/2024 , Expires: 04/01/2024 Start: 01-01-2024 End: 04-01-2024 SEQUENTIAL SCN FIRST TRIMESTER [facility] Comment on above: Expected: 01/01/2024 , Expires: 04/01/2024 Start: 01-01-2024 End: 04-01-2024 SEQUENTIAL SCN SECOND TRIM SEQUENTIAL SCN SECOND TRIM Lab Routine Encounter for supervision of other normal in second trimester Expected: 01/01/2024, Expires: 04/01/2024 [facility] Comment on above: Expected: 01/01/2024 , Expires: 04/01/2024 Start: 01-01-2024 End: 04-01-2024 SYPHILIS TOTAL W/REFLEX [facility] Comment on above: Expected: 01/01/2024 , Expires: 04/01/2024 Start: 01-01-2024 End: 04-01-2024 TYPE + SCREEN [facility] Comment on above: Expected: 01/01/2024 , Expires: 04/01/2024 Start: 01-01-2024 End: 01-01-2024 Patient encounter procedure OB/Gynecology Comment on above: Nuchal ob LMP 09/27 Start: 11-13-2023 End: 11-12-2024 NUCHAL TRANSLUCENCY WHI NUCHAL TRANSLUCENCY WHI Anc Imaging Routine 6 weeks gestation of Expected: 11/13/2023, Expires: 11/12/2024 [facility] Comment on above: Expected: 11/13/2023 , Expires: 11/12/2024 Start: 08-10-2023 [facility] Start: 07-17-2023 [facility] Start: 06-23-2023 Behavioral Health Screening Behavioral Health Screening [facility] Start: 02-24-2023 [facility] Start: 02-24-2023 Streptococcus pyogen es antigen assay Group A Streptococcus Rapid Screen [facility] Start: 02-21-2023 Covid-19 Vaccine ( season) Covid-19 Vaccine ( season) [facility] Start: 06-07-2022 End: 06-21-2022 Influenza virus A and B RNA and SARS-CoV-2 (COVID-19) N gene panel - Respiratory specimen by OFELIA with probe detection [facility] Work Phone: Comment on above: Expected: 06/07/2022 , Expires: 06/21/2022 Start: 02-22-2022 Patient discharge [facility] Work Phone: Start: 02-22-2022 Consultation [facility] Work Phone: Start: 02-21-2022 Influenza vaccination INFLUENZA (#1) [facility] Start: 02-21-2022 Administration of medication [facility] Work Phone: Start: 02-21-2022 Application of ice collar, cap or bag [facility] Work Phone: Start: 02-21-2022 Catheterization of vein [facility] Work Phone: Start: 02-21-2022 Introduction of urin liu catheter [facility] Work Phone: Start: 02-21-2022 Measuring intake and output [facility] Work Phone: Start: 02-21-2022 Notification of physician [facility] Work Phone: Start: 02-21-2022 Procedure discontinued [facility] Work Phone: Start: 02-21-2022 Provision of activit y privileges [facility] Work Phone: Start: 02-21-2022 Vital signs measurements [facility] Work Phone: Start: 02-21-2022 [facility] Work Phone: Start: 02-20-2022 Admission procedure [facility] Work Phone: Start: 02-17-2022 Eval c/v amniotic fl uid protein qual ea specimen EVAL AMNIOTIC FLUID PROTEIN [facility] Work Phone: Start: 02-17-2022 monitoring lab or phys written report MONITOR W/REPORT [facility] Work Phone: Start: 02-17-2022 nonstress test NON-STRES S TEST [facility] Work Phone: Start: 02-17-2022 Nonstress test [facility] Work Phone: Start: 02-17-2022 Obstetric monitoring [facility] Work Phone: Start: 02-17-2022 Vital signs measurements [facility] Work Phone: Start: 02-17-2022 [facility] Work Phone: Start: 02-17-2022 [facility] Start: 12-22-2021 US.doppler Lower extremity vein [facility] Work Phone: Start: [facility] Start: 11-22-2021 Nonstress test [facility] Work Phone: Start: 11-22-2021 Obstetric monitoring [facility] Work Phone: Start: 11-22-2021 Vital signs measurements [facility] Work Phone: Start: [facility] Start: 11-04-2021 [facility]: Start: 11-03-2021 Nonstress test [facility] Work Phone: Start: 11-03-2021 Obstetric monitoring [facility] Work Phone: Start: 11-03-2021 Vital signs measurements [facility] Work Phone: Start: 11-03-2021 End: 11-03-2021 [facility] Work Phone: Start: 06-23-2021 DEPRESSION ASSESSMENT DEPRESSION ASS ESSMENT [facility] Start: 03-13-2021 COVID-19 VACCINE (2 - Moderna series) COVID-19 VACCINE (2 - Moderna series) [facility] Start: 03-19-2020 Urine microalbumin profile DTaP,Tdap,Td Vaccine (7 - Td or Tdap) [facility] Start: 2017 PAP TESTING PAP TESTING [facility] Start: 2017 Screening for malign ant neoplasm of cervix [facility] Start: 12-28-2015 Urine microalbumin profile DTAP,TDAP,TD (1 - Tdap) [facility] Start: 2014 Anxiety Screening Anxiety Screening [facility] Start: 2014 Depression Screening Depression Scre ening [facility] Start: 2014 HEPATITIS C SCREENING HEPATITIS C [facility] Start: 2014 Hepatitis C screening Hepatitis C [facility] Start: 2014 HIV SCREENING HIV SCREENING [facility] Start: 2014 HIV screening HIV Screening [facility] Start: 2010 PEDS TO ADULT TRANSI TION ANNUAL ASSESSMENT PEDS TO ADULT TRANSITION ANNUAL ASSESSMENT [facility] Start: 2008 PEDS TO ADULT TRANSI TION INITIAL DISCUSSION PEDS TO ADULT TRANSITION INITIAL DISCUSSION [facility] Start: 12-28-2007 HPV VACCINE (1 - 2-d ose series) HPV VACCINE (1 - 2-dose series) [facility] Start: 1996 HEPATITIS B (1 of 3 - 3-dose series) HEPATITIS B (1 of 3 - 3-dose series) [facility] Bacteria identified in Urine by Culture URINE CULTURE Microbiology Routine 6 weeks gestation of care, subsequent in first trimester 11/13/2023 3:27 PM EDT [facility] Bilirubin measuremen t, urine [facility] Chlamydia trachomatis+Neisseria gonorrhoeae DNA [Presence] in Unspecified specimen by OFELIA with probe detection GONORRHEA/CHLAMYDIA NAAT Lab Routine with uncertain dates, antepartum (HCC) 12 weeks gestation of (HCC) 11/18/2024 1:57 PM EDT [facility] nonstress test NON-S TRESS TEST Procedures Routine History of IUFD Ordered: 04/28/2024 [facility] Work Phone: Comment on above: Ordered: 04/28/2024 Hemoglobin [Presence ] in Urine [facility] Insertion intrauteri ne device iud INSERT INTRAUTERINE DEVICE Procedures Routine Encounter for other general counseling or advice on contraception Ordered: 07/29/2024 [facility] Work Phone: Comment on above: Ordered: 07/29/2024 Measurement of keton es in urine using dipstick [facility] Microscopic urinalysis [facility] End: 04-16-2024 OBSTETRIC ULTRASOUND WHI OBSTETRIC ULTRASOUND WHI Anc Imaging Routine History of IUFD Once per month for 2 Occurrences starting 02/17/2024 until 04/16/2024 [facility] Work Phone: Comment on above: Once per month for 2 Occurrences starting 02/17/2024 until 04/16/2024 End: 07-23-2024 OBSTETRIC ULTRASOUND WHI OBSTETRIC ULTRASOUND WHI Anc Imaging Routine Supervision of other high risk pregnancies, third trimester Polyhydramnios in third trimester complication, single or unspecified fetus History of IUFD Every 3 weeks for 3 Occurrences starting 04/14/2024 until 07/23/2024 [facility] Work Phone: Comment on above: Every 3 weeks for 3 Occurrences starting 04/14/2024 until 07/23/2024 End: 05-31-2025 OBSTETRIC ULTRASOUND WHI OBSTETRIC ULTRASOUND WHI Anc Imaging Routine Encounter for supervision of high risk in second trimester, antepartum (HCC) Chronic hypertension complicating or reason for care during childbirth (HCC) Once per month for 6 Occurrences starting 01/12/2025 until 05/31/2025 [facility] Work Phone: Comment on above: Once per month for 6 Occurrences starting 01/12/2025 until 05/31/2025 Organism count, microscopic method [facility] PAP TEST PAP TEST Lab Tonny chase care and examination Screening for malignant neoplasm of cervix 07/29/2024 1:48 PM EST [facility] Path report.final Dx Spec [facility] Patient Education [facility] Work Phone: Patient referral [facility] Work Phone: pH of Urine [facility] ROUTINE, GR OUP B STREP PCR ROUTINE, GROUP B STREP PCR Microbiology Routine 36 weeks gestation of 06/11/2024 11:[address] [facility] Work Phone: Specific gravity of Urine [facility] Urine culture [facility] Urine dipstick for glucose [facility] Urine dipstick for leukocyte esterase [facility] Urine dipstick for nitrite [facility] Urine dipstick for protein [facility] Urine examination [facility] Urine microscopy: epithelial cells [facility] Urine microscopy: re d cells [facility] URINE OB DIP B/O URINE OB DIP B/ O Lab Routine Encounter for supervision of normal in multigravida in first trimester 9 weeks gestation of Ordered: 12/01/2023 [facility] Work Phone: Comment on above: Ordered: 12/01/2023 Urobilinogen [Presen ce] in Urine [facility] White blood cell count [facility] Immunizations Immunization Date Immunization Notes Care Provider Darya mallory 05-12-2024 respiratory syncytia l virus (RSV) vaccine, bivalent (ABRYSVO) Whi [facility] 04-14-2024 tetanus toxoid, redu anju diphtheria toxoid, and acellular pertussis vaccine, adsorbed Margarita Alcala MD Work Phone: [facility] 02-13-2021 COVID-19 original vaccine, full dose, monovalent (MODERNA) Margarita Alcala MD Work Phone: [facility] 02-10-2017 measles, mumps and rubella virus vaccine Dr. David Mckinney Work Phone: [facility] 01-05-2014 human papilloma viru s vaccine, quadrivalent Margarita Alcala MD Work Phone: [facility] 03-19-2010 human papilloma viru s vaccine, quadrivalent Margarita Alcala MD Work Phone: [facility] 03-19-2010 tetanus toxoid, redu anju diphtheria toxoid, and acellular pertussis vaccine, adsorbed Margarita Alcala MD Work Phone: [facility] 03-19-2010 varicella virus vaccine Jo-Ann Alcala MD Work Phone: [facility] 01-05-2001 diphtheria, tetanus toxoids and acellular pertussis vaccine, unspecified formulation Margarita Alcala MD Work Phone: [facility] 01-05-2001 measles, mumps and rubella virus vaccine Margarita Alcala MD Work Phone: [facility] 01-05-2001 poliovirus vaccine, inactivated Margarita Alcala MD Work Phone: [facility] 09-20-1999 varicella virus vaccine Jo-Ann Alcala MD Work Phone: [facility] 09-10-1999 diphtheria, tetanus toxoids and acellular pertussis vaccine, unspecified formulation Margarita Alcala MD Work Phone: [facility] 11-13-1998 diphtheria, tetanus toxoids and acellular pertussis vaccine, unspecified formulation Margarita Alcala MD Work Phone: [facility] 11-13-1998 poliovirus vaccine, inactivated Margarita Alcala MD Work Phone: [facility] 02-21-1998 haemophilus influenz ae type b vaccine, HbOC conjugate Margarita Alcala MD Work Phone: [facility] 02-21-1998 hepatitis B vaccine, pediatric or pediatric/adolescent dosage Margarita Alcala MD Work Phone: [facility] 02-21-1998 measles, mumps and rubella virus vaccine Margarita Alcala MD Work Phone: [facility] 12-20-1997 diphtheria, tetanus toxoids and acellular pertussis vaccine, unspecified formulation Margarita Alcala MD Work Phone: [facility] 12-20-1997 haemophilus influenz ae type b vaccine, HbOC conjugate Margarita Alcala MD Work Phone: [facility] 12-20-1997 poliovirus vaccine, inactivated Margarita Alcala MD Work Phone: [facility] 11-11-1997 diphtheria, tetanus toxoids and acellular pertussis vaccine, unspecified formulation Margarita Alcala MD Work Phone: [facility] 11-11-1997 haemophilus influenz ae type b vaccine, HbOC conjugate Margarita Alcala MD Work Phone: [facility] 11-11-1997 hepatitis B vaccine, pediatric or pediatric/adolescent dosage Margarita Alcala MD Work Phone: [facility] 11-11-1997 poliovirus vaccine, inactivated Margarita Alcala MD Work Phone: [facility] 1996 hepatitis B vaccine, pediatric or pediatric/adolescent dosage Margarita Alcala MD Work Phone: [facility] Payers Date Payer Category Payer Self-pay [id number] 2022 Medicaid [id number] 2017 Unknown [id number] 2017 Unknown [id number] Unknown [id number] 2.16.8 [id number] Unknown [id number] 2.16.8 [id number] Unknown [id number] 2.16.8 [id number] Unknown [id number] 2.16.8 [id number] Unknown [id number] 2.16.8 [id number] Unknown [id number] 2.16.8 [id number] Unknown [id number] 2.16.8 [id number] Unknown [id number] 2.16.8 [id number] Unknown [id number] 2.16.8 [id number] Unknown [id number] 2.16.8 [id number] Unknown [id number] 2.16.8 [id number] Unknown [id number] 2.16.8 [id number] Unknown [id number] 2.16.8 [id number] Social History Date Type Detail Facility [facility] Work Phone: Start: 11-03-2021 End: 08-10-2023 Tobacco smoking status NHIS Unknown if ever smoked [facility] Start: 01-13-2020 None [facility] Start: 1995 Sex Assigned At Female [facility] Start: 06-07-2022 End: 11-13-2023 Tobacco smoking status NHIS Never smoked tobacco [facility] Start: 06-07-2022 End: 02-17-2024 Tobacco use and exposure Smokeless tobacco non-user [facility] Start: 1995 Sex Assigned At Not on file [facility] History of tobacco use Passive smoker [facility] Start: 11-13-2023 End: 12-31-2024 Alcohol intake Ex-drinker (finding) [facility] Start: 11-13-2023 End: 11-18-2024 History of Social function [facility] Start: 11-13-2023 End: 11-18-2024 Tobacco use panel [facility] Start: 05-24-2012 National Score (1-100), lower number is lower risk 90 [facility] Start: 11-10-2023 Education 13 [facility] Start: 10-12-2023 [facility] Start: 11-12-2023 Gender identity Identifies as female gender (finding) [facility] Start: 11-12-2023 Sexual orientation Heterosexual (fin ding) [facility] Start: 02-17-2024 End: 04-09-2025 Tobacco smoking status NHIS Ex-smoker [facility] History of tobacco use Current smoker [facility] History of tobacco use Cigarette Smoker [facility] Start: 10-02-2024 End: 10-12-2024 Sex Female (finding) [facility] NEGATED: Highlighted row [facility] Goals Date Patient Goal Desired Activity /State Personal health goal Personal health goal Mental Status Date Assessment Result Facility 08-10-2023 Cognitive function Level Of Cons ciousness Awake;Alert;Appropriate;Follow s Commands [facility] Work Phone: 06-10-2023 Cognitive function Level Of Cons ciousness Awake;Alert;Appropriate;Drowsy [facility] Work Phone: 05-11-2023 Cognitive function Level Of Cons ciousness Awake;Alert;Appropriate [facility] Work Phone: 02-24-2023 Cognitive function Level Of Cons ciousness Awake;Alert;Appropriate [facility] Work Phone: 09-13-2021 Cognitive function Level Of Cons ciousness Awake;Alert;Appropriate;Follow s Commands [facility] Work Phone: Clinical Notes 02-22-2022 to 04-09-2025 Note Date & Type Note Facility 04-09-2025 Discharge summary [facility] 04-09-2025 Radiology Diagnostic study note Imaging Services [address] [place] [address] Knee 1 or 2 Views MR#: [id number] Acct: [id number] Name: SHILPA HOANG Rep #: [id number] : 1995 F 29 From: Damon York MD PCP: Dr. David Mckinney MD Status: [facility] ER Study:Knee 1 or 2 Views Date of Exam: Exam# [id number] Ordering Dr: Torres Abraham MD PROCEDURE: LEFT KNEE 1 OR 2 VIEWS 04/09/2025 REASON FOR EXAM: PAIN TECHNIQUE: Procedure Code: RADK Modality: DX Procedure: KNEE 1 OR 2 VIEWS Laterality: Left COMPARISON: None. FINDINGS: No acute fracture or dislocation. Alignment is anatomic. Preserved joint spaces. No joint effusion. No aggressive osseous lesion. No marked soft tissue swelling or radiopaque foreign body. RAD/Knee 1 or 2 Views IMPRESSION: No acute fracture or dislocation. Reading Location: [id number] CC: Dr. Torres Abraham MD; Dr. David Mckinney MD ~ Sharepoint Application Developer: Signed [facility] 04-09-2025 Radiology Diagnostic study note Imaging Services [address] [place] [address] Ankle min 3 Views MR#: [id number] Acct: [id number] Name: SHILPA HOANG ZAINAB Rep #: [id number] : 1995 F 29 From: Damon York MD PCP: Dr. David Mckinney MD Status: REG ER Study:Ankle min 3 Views Date of Exam: Exam# [id number] Ordering Dr: Torres Abraham MD PROCEDURE: LEFT ANKLE MIN 3 VIEWS 04/09/2025 REASON FOR EXAM: FALL TECHNIQUE: Procedure Code: RADANK Modality: DX Procedure: ANKLE MIN 3 VIEWS Laterality: Left COMPARISON: None. FINDINGS: No acute fracture or dislocation. Alignment is anatomic. Preserved joint spaces.No aggressive osseous lesion. No marked soft tissue swelling or radiopaque foreign body. RAD/Ankle min 3 Views IMPRESSION: No acute fracture or dislocation. Reading Location: [facility] CC: Dr. Torres Abraham MD; Dr. David Mckinney MD ~ Sharepoint Application Developer: Signed [facility] 04-09-2025 Discharge summary Note Date/Time April 09, 2025 8:07pm [facility] Medical Records Department [address] [place] [address] Emergency Department Summary 04/09/25 MR#: [id number] Acct: [id number] Name: SHILPA HOANG Rep #:[id number] : 1995 29 From: Torres Abraham MD PCP: Dr. David Mckineny MD Status:REG ER Location: ED HPI History of Present Illness Chief Complaint: Lower Extremity Injury Narrative Narrative: 29-year-old female approximately 36 weeks gestation presents with injury to her left ankle that she sustained prior to arrival. Her mother states that patient was going to stand up but did not realize that her left foot was asleep. She twisted her left ankle. She did not fall or hit her head or abdomen. She denies any problems with her , but complains of swelling at her left lateral ankle, and pain radiating up to her left knee as well as down to her foot. Denies other injuries. [facility] Medical History (spontaneous vaginal delivery) Depression Family history of hearing loss at age younger than 7 years Gestational HTN Stillborn, normal History of placental abruption Trauma depression Anxiety Cervical myofascial strain Home Medications ?Medication ?Instructions ?Recorded ?Last Taken ?Type feqemisc-ndu-Hm-FA 1 mg 1 tab PO DAILY pregna ncy 09/13/21 02/17/22 09:00 History tablet Allergy/AdvReac Type Severity Reaction Status Date / Time walnut (walnuts) Allergy Severe Swelling Verified 04/09/25 16:12 corn AdvReac Other Verified 04/09/25 16:12 Family History no significant family his Social History number of children: 2 Smoking Status: Former smoker alcohol intake: former 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 Worse with standing and ambulating/movement. Denies other injuries. Radiates towards knee and down foot. EXAM Physical Exam Narrative Exam Narrative: GCS 15. ABCs are intact. Cardiovascular examination reveals regular rate and rhythm. Lungs are clear to auscultation bilaterally. Abdomen is soft with gravid uterus. Focused examination of the left ankle shows mild swelling in theleft lateral malleolus area. Is also in the left talofibular ligament area. Palpable dorsalis pedis pulse. No crepitance. No pain at the base of the fifthmetatarsal. No palpable Achilles tendon deficit. Mild tenderness palpation left proximal fibular head. Const Vital Signs: 04/09/25 16:11 Temperature 98 F Temperature Source Oral Pulse Rate 120 H Respiratory Rate 18 Blood Pressure 135/90 H Blood Pressure Mean 105 Pulse Ox 99 Oxygen Delivery Method Room Air MDM MDM MDM Narrative Medical decision making narrative: Differential diagnosis includes but not limited to Maisonneuve fracture versus left ankle sprain versus fracture. I have low suspicion for foot fracture basedon her clinical exam. She was administered Tylenol orally and has been using anice pack. X-rays were obtained of the left knee and 2 views as to limit radiation, and protocol x-ray for left ankle ordered as well. On my individual interpretation of the x-ray of the left ankle, there is no evidence of an acute fracture, no dislocation. I also independently interpretedthe x-rays of the left knee which shows no evidence of an acute fracture or dislocation as well. I reviewed the radiology reports for both x-rays which confirms my independent interpretations. At this point in time, she was placed in an Aircast on her left ankle. She willcontinue Tylenol. She was instructed not to use NSAIDs given her third trimester . She will continue ice and elevation of her left ankle at home. She was told to be partial weightbearing for stability on her left ankle as she requested crutches but declined a walker. I do not feel that she needs admission or observation. Disposition is discharged home in stable condition. History & Record Review Discussion w/independent historian: Patient and Family (Mother) Radiography Diagnostic Testing: Clinical Impression(s) from Imaging Studies Ankle X-Ray 04/09/25 17:40 IMPRESSION: No acute fracture or dislocation. Reading Location: [facility] Knee X-Ray 04/09/25 17:40 IMPRESSION: No acute fracture or dislocation. Reading Location: [facility] Discharge Plan Triage Chief Complaint: Lower Extremity Injury ED Provider: Torres Abraham Dx/Rx/DC Orders Clinical Impression: Left ankle sprain, Instructions: ED Ankle Sprain (Adult) Prescriptions: No Action fopkltlg-cio-Sn-FA 1 mg Tablet 1 tab PO DAILY Primary Care Provider: David Mckinney Referrals: David Mckinney MD [Primary Care Provider, Family Practice] - 1 Week if not improving Activity Restrictions/Additional Instructions: Partial weightbearing on your left ankle. Wear your Aircast. You may remove itfor bathing or sleeping. Use your crutches for stability and ambulating. Tylenol as needed for pain. Do not take any NSAIDs. Elevate your left lower extremity when possible. Print Language: Syrian Disposition Disposition: Home, Self Care What to do if you have Problems For any increased pain, shortness of breath, bleeding, nausea or vomiting, chestpain, or any unexpected problems, contact your Primary Care Provider. Call [employer] [facility] ([phone]) or report to the closest Emergency Room. Call 911 if necessary. 04/09/25 1056 <Electronically signed by Torres Abraham MD> Cosigner Signature (if applicable): CC: Dr. David Mckinney MD ~ Signed [facility] Work Phone: 1(317) 511-998009-25-2025 NoteHNO ID: [id number] Author: IDA CISNEROS MA Service: ? Author Type: Auto Parts Handler Type: Progress Notes Filed: 03/17/2025 12:32 Note [...] severely ill: Yes Patient denies history of Guillain-Bremen Syndrome (a severe paralytic illness): Yes Tdap Adacel injection was given without incident. See immunizations for details of immunizations administered today. VIS sheet provided: Yes Provider Jeanette Patel MD was present in office at time of injection. [facility] Medical Records Department [address] [place] [address] Emergency Department Summary 03/10/25 MR#: [id number] Acct: [id number] Name: SHILPA HOANG Rep #:[id number] : [...] there. She thought she was fatigued andwas anemicbut then developed more URI symptoms. Was worried her headache couldbe related to her blood pressure being high or preeclampsia so she came to the ER. She denies any vaginal bleeding, leakage of fluids and reports good movement from the baby. Follows with [facility] CDC ASSOCIATE. Been taking Tylenol for symptoms her last [...] Hematologic/Lymphatic: Denies easy bleeding or easy bruising [facility] Medical History (spontaneous vaginal delivery) Depression Family history of hearing loss at age younger than 7 years Gestational HTN Stillborn, normal History of placental abruption Trauma depression Anxiety Cervical myofascial strain Home Medications ?Medication ?Instructions ?Recorded ?Last Taken ?Type vbmqegwm-zvt-Oe-FA 1 mg 1 tab PO DAILY pregna [...] seem more comfortable. Case is discussed with CDC ASSOCIATE call for [facility], Dr. Lugo. She is comfortable with patient [...] stable condition. Management Discussion w/another healthcare provider: Associate Professor Of Geology Discharge Plan Triage Chief Complaint: Cough ED [...] cold symptoms) Qty: 20 0RF No Action ipflwpgn-xup-Pq-FA 1 mg Tablet 1 tab PO DAILY [...] Follow up with your family doctor and CDC ASSOCIATE. You may take huta-ehk-yuehvvl decongestant such as Tylenol Cold and flu or Mucinex DM. You been given a prescription for Mucinex DM. You may also use Flonase which is available rrit-iwk-wghdaca. Use as directed do not use for more than 3 days because ofthe increased risk of rebound congestion. If you have worsening symptoms, feveror difficulty breathing please return to the emergency room. Print Language: Syrian Disposition Disposition: Home, Self Care Discharge Date/Time: 03/10/25 14:55 What to do if you have Problems For any increased pain, shortness of breath, bleeding, nausea or vomiting, chestpain, or any unexpected problems, contact your Primary Care Provider. Call [employer] [facility] ([phone]) or report tothe closest Emergency Room. Call 911 if necessary. 03/10/25 1630 Cosigner Signature (if applicable): CC: Dr. David Mckinney MD ~ Signed [facility]09-18-2025 Discharge summary [facility] Note Date/Time March 10, 2025 2:55pm [facility] Medical Records Department [address] [place] [address] Emergency Department Summary 03/10/25 MR#: [id number] Acct: [id number] Name: SHILPA HOANG Rep #:[id number] : [...] good movement from the baby. Follows with [facility] CDC ASSOCIATE. Been taking Tylenol for symptoms her last [...] Denies easy bleeding or easy bruising PFSH PFS Medical History (spontaneous vaginal delivery) Depression Family history of hearing loss at age younger than 7 years Gestational HTN Stillborn, normal History of placental abruption Trauma depression Anxiety Cervical myofascial strain Home Medications ?Medication ?Instructions ?Recorded ?Last Taken ?Type rpoqpoug-onq-Wc-FA 1 mg 1 tab PO DAILY pregna [...] seem more comfortable. Case is discussed with CDC ASSOCIATE call for [facility], Dr. Lugo. She is comfortable with patient [...] stable condition. Management Discussion w/another healthcare provider: Associate Professor Of Geology Discharge Plan Triage Chief Complaint: Cough ED [...] cold symptoms) Qty: 20 0RF No Action sofxcobr-dto-Pn-FA 1 mg Tablet 1 tab PO DAILY [...] Follow up with your family doctor and CDC ASSOCIATE. You may take dxll-hpo-bclxpft decongestant such as Tylenol Cold and flu or Mucinex DM. You been given a prescription for Mucinex DM. You may also use Flonase which is available bvfq-hvw-uldmfyt. Use as directed do not use for more than 3 days because of the increased risk of rebound congestion. If you have worsening symptoms, feveror difficulty breathing please return to the emergency room. Print Language: Syrian Disposition Disposition: Home, Self Care Discharge Date/Time: 03/10/25 14:55 What to do if you have Problems For any increased pain, shortness of breath, bleeding, nausea or vomiting, chestpain, or any unexpected problems, contact your Primary Care Provider. Call [facility] ([phone]) or report to the closest Emergency Room. Call 911 if necessary. 03/10/25 1630 <Electronically signed by Mindy Jorge DO> Cosigner Signature (if applicable): CC: Dr. David Mckinney MD ~ Signed [facility] Work Phone: 1(160) 500-205508-20-2025 Progress note* Quick Notes - Jt Lugo [...] of high risk in second trimester, antepartum ([facility]) - ICD9: V23.9, ICD10: O09.92 (primary diagnosis) 28 week labs next visit - GESTATIONAL GLUCOSE SCREEN, 1-HOUR, 50 GRAM, NON-FASTING - SYPHILIS TREPONEMAL W/REFLEX - ANEMIA REFLEX PANEL - URINE OB DIP B/O 2. Chronic hypertension complicating or reason for care during childbirth ([facility]) - ICD9: 642.01, ICD10: O10.92 cont. labetalol, bp stable, won't decrease meds since was difficult to get under control previously. Monitoring at home - GESTATIONAL GLUCOSE SCREEN, 1-HOUR, 50 GRAM, NON-FASTING - SYPHILIS TREPONEMAL W/REFLEX - ANEMIA REFLEX PANEL - URINE OB DIP B/O 3. Late care ([facility]) - ICD9: V23.7, ICD10: O09.30 plans regular appointment.s - GESTATIONAL GLUCOSE SCREEN, 1-HOUR, 50 GRAM, NON-FASTING - SYPHILIS TREPONEMAL W/REFLEX - ANEMIA REFLEX PANEL - URINE OB DIP B/O 4. heartburn, plans to start tums prn 5. 24 weeks gestation of ([facility]) - ICD9: V22.2, ICD10: Z3A.24 - URINE OB DIP B/O 6. Nicotine use - ICD9: 305.1, ICD10: Z72.0 hasn't smoked this entire , quit 3-4 year ago. ant. anemia- recheck levels next visit cont. Fe and PNV growth scans q 4 weeks starting next visit cont. zofran prn Jt Lugo MD [facility]08-20-2025 Miscellaneous Notes* Quick Notes - Jt Lugo [...] of high risk in second trimester, antepartum ([facility]) - ICD9: V23.9, ICD10: O09.92 (primary diagnosis) 28 week labs next visit - GESTATIONAL GLUCOSE SCREEN, 1-HOUR, 50 GRAM, NON-FASTING - SYPHILIS TREPONEMAL W/REFLEX - ANEMIA REFLEX PANEL - URINE OB DIP B/O 2. Chronic hypertension complicating or reason for care during childbirth ([facility]) - ICD9: 642.01, ICD10: O10.92 cont. labetalol, bp stable, won't decrease meds since was difficult to get under control previously. Monitoring at home - GESTATIONAL GLUCOSE SCREEN, 1-HOUR, 50 GRAM, NON-FASTING - SYPHILIS TREPONEMAL W/REFLEX - ANEMIA REFLEX PANEL - URINE OB DIP B/O 3. Late care ([facility]) - ICD9: V23.7, ICD10: O09.30 plans regular appointment.s - GESTATIONAL GLUCOSE SCREEN, 1-HOUR, 50 GRAM, NON-FASTING - SYPHILIS TREPONEMAL W/REFLEX - ANEMIA REFLEX PANEL - URINE OB DIP B/O 4. heartburn, plans to start tums prn 5. 24 weeks gestation of ([facility]) - ICD9: V22.2, ICD10: Z3A.24 - URINE OB DIP B/O 6. Nicotine use - ICD9: 305.1, ICD10: Z72.0 hasn't smoked this entire , quit 3-4 year ago. ant. anemia- recheck levels next visit cont. Fe and PNV growth scans q 4 weeks starting next visit cont. zofran prn Jt Lugo MD documented in this encounter[facility] Instructions* Patient Instructions* La Bowden MA - 02/09/2025 9:56 AM EDT SEQUENTIAL SCREENINGS The [facility] offers sequential screenings for women who are [...] testing. It will require an appointment withour golf technician. This is not an ultrasound performed [...] the above symptoms, contact our office at [phone] and ask to speak with anurse. After hours, you can call doctors registry at [phone] OR call [facility] at [phone] ask to have the doctor phone specialist paged. If you consider this an emergency, dial 9-1- or go to your nearest emergency department. NEED HELP? Are you dealing with a violent or abusive relationship? Are you a victim of rape or sexual assult? Call [facility] ([place]) 24 hour Crisis Hotline: 960.993.8549 or 900-002-0143. MANUAL Your Guide to a Healthy manual is now on-line. Visit [email or web address] to download your free copy documented in this encounterSelect [facility] Telephone encounter Note * Telephone Encounter - Carla Mckinney RN - 01/13/2025 9:59 AM EDT 2nd risk assessment form submitted 01/13/25 Carla Mckinney RN [facility]07-24-2025 Miscellaneous Notes* Telephone Encounter - Carla Mckinney, RN - 01/13/2025 9:59 AM EDT 2nd risk assessment form submitted 01/13/25 Carla Mckinney RN documented in this encounterSelect [facility] Progress note* Quick Notes - Sarah Huber [...] of high risk in second trimester, antepartum ([facility]) Orders: OBSTETRIC ULTRASOUND WHI; Standing Chronic hypertension complicating or reason for care during childbirth ([facility]) Continue Labetalol 100mg tid Continue PO ASA Discussed changing positions slowly if has frequent low BP notify office. Orders: OBSTETRIC ULTRASOUND WHI; Standing Late care (HCC) History of gestational hypertension Continue ASA History of drug abuse ([facility]) Vapes nicotine containing substance 20 weeks gestation of ([facility]) Anatomy us pending today RTO 4 wks Sarah Warner MD [facility]07-23-2025 Miscellaneous Notes* Quick Notes - Sarah Huber [...] nicotine containing substance 20 weeks gestation of ([facility]) Anatomy us pending today RTO 4 wks Sarah Warner MD documented in this encounterSelect [facility]-20[facility] Instructions* Patient Instructions* Terrie Ramirez MA - 01/12/2025 9:10 AM EDT SEQUENTIAL SCREENINGS The [facility] offers sequential screenings for women who are [...] testing. It will require an appointment withour golf technician. This is not an ultrasound performed [...] the above symptoms, contact our office at [phone] and ask to speak with anurse. After hours, you can call doctors registry at [phone] OR call [facility] at [phone] ask to have the doctor phone specialist paged. If you consider this an emergency, dial 5-4-7 or go to your nearest emergency department. NEED HELP? Are you dealing with a violent or abusive relationship? Are you a victim of rape or sexual assult? Call [facility] ([place]) 24 hour Crisis Hotline: 135.644.2208 or 886-307-7543. MANUAL Your Guide to a Healthy manual is now on-line. Visit [email or web address] to download your free copy documented in this encounterSelect Medical [facility]-15-2025 NoteHNO ID: [id number] Author: SOY CASSIDY MD Service: ? Author [...] RTO for anatomy [facility] History of Present illness Narrative* Soy [...] Cassidy DO documented in this encounterSelect [facility]-2025 Progress note* Quick Notes - Soy Cassidy [...] year [facility]07-11-2025 Miscellaneous Notes* Quick Notes - Soy Cassidy [...] 7 year documented in this encounterSelect [facility]-2025 Instructions* Patient Instructions* Emily Scott LPN - 12/31/2024 1:17 PM EDT SEQUENTIAL SCREENINGS The [facility] offers sequential screenings for women who are [...] testing. It will require an appointment withour golf technician. This is not an ultrasound performed [...] the above symptoms, contact our office at [phone] and ask to speak with anurse. After hours, you can call doctors registry at [phone] OR call [facility] at [phone] ask to have the doctor phone specialist paged. If you consider this an emergency, dial or go to your nearest emergency department. NEED HELP? Are you dealing with a violent or abusive relationship? Are you a victim of rape or sexual assult? Call [facility] ([place]) 24 hour Crisis Hotline: 899.262.4190 or 913-974-5197. MANUAL Your Guide to a Healthy manual is now on-line. Visit [email or web address] to download your free copy documented in this encounterSelect [facility]-2025 Telephone encounter Note * Telephone Encounter - Jo Sweeney RN - 2024 8:55 PM EDT Reason for Call: H/A and numbness of the right side of her face Outcome: She is calling 911 [facility]07-07-2025 Miscellaneous Notes* Telephone Encounter - Jo Sweeney [...] side of her face. Protocols used: - Vihnkyve-FQXRK-GB documented in this encounterSelect Medical [facility]-2025 Telephone encounter Note * Telephone Encounter - Jo Sweeney RN - 2024 8:50 PM EDT Reason for Disposition [1] Numbness of the face, arm or leg on one side of the body AND [2] new-onset C/o 8/10 H/A and numbness of the right side of her face. Protocols used: - Rqgowdmq-KYTWM-ET [facility]05-30-2025 Telephone encounter Note* Telephone Encounter - Justin Valentino RN - 11/19/2024 8:27 AM EDT 1st risk assessment form submitted 11/19/24. Justin Valentino RN [facility]05-30-2025 Miscellaneous Notes* Telephone Encounter - Justin Valentino RN - 11/19/2024 8:27 AM EDT 1st risk assessment form submitted 11/19/24. Justin Valentino RN documented in this encounterSelect Medical [facility]05-29-2025 Progress note* Quick Notes - Johana Turner APRN.CNM - 11/18/2024 1:57 PM EDT Patient is at 12w4d gestation here for NOB. This is patient's first visit. See progress note. Johana Turner APRN.CNM [facility]05-29-2025 Miscellaneous Notes* Quick Notes - Johana Turner APRN.CNM - 11/18/2024 1:57 PM EDT Patient is at 12w4d gestation here for NOB. This is patient's first visit. See progress note. Johana Turner APRN.CNM documented in this encounterSelect Medical [facility]-29-2025 Instructions* Patient Instructions* Shahzad Romero MA - 11/18/2024 12:58 PM EDT Please select the following link to access the [facility] Your Guide to a Healthy . [email or web address] documented in this encounterSelect Medical [facility]-29-2025 NoteHNO ID: [id number] Author: JOHANA TURNER APRN.CNM Service: ? Author Type: Car Top Bolter Type: Progress Notes Filed: 11/18/2024 14:45 Note [...] pre-existing diabetes: No No results found for: "ABORHD" BMI 26.79 kg/(m2) Last Pap: 08/06/2024 History [...] the following (please check all that apply)? Car Top Bolter care Social History: Do you have any [...] Status: Partner: Name: Sarath Age: 33 Occupation: [employer] Gender: Male PAST MEDICAL HISTORY Diagnosis Date Drug addiction in remission ([facility]) Generalized anxiety disorder Polyhydramnios in third trimester ([facility]) 05/14/2024 PAST SURGICAL HISTORY Procedure [...] facility-administered medications for this (more content not included)...[facility]05-29-2025 History of Present illness Narrative* Latonia TurnerADONIS white.CN - 11/18/2024 12:57 PM EDT OB point [...] pre-existing diabetes: No No results found for: "ABORHD" BMI 26.79 kg/(m^2) Last Pap: 08/06/2024 History [...] the following (please check all that apply)? Car Top Bolter care Social History: Do you have any [...] Status: Partner: Name: Sarath Age: 32 Occupation: [employer] Gender: Male PAST MEDICAL HISTORY Diagnosis Date Drug addiction in remission ([facility]) Generalized anxiety disorder Polyhydramnios in third trimester ([facility]) 05/14/2024 PAST SURGICAL HISTORY Procedure [...] Anxiety, Depression, Memory loss Hx of depression. [facility] physician . Zoloft 50 mg PO daily- stopped when found out SKIN: Negative for: Rash, Itching GENITOURINARY: Negative for: vaginal itching, vaginal discharge, hematuria or dysuria SENSITIVE EXAM: The sensitive examination was discussed with the Patient or Patient's Authorized E Learning Manager. As applicable, any other physician, advance practice provider, medical student, or other health professional student that will be observing or involved in the sensitive examination for educational or training purposes was discussed with the Patient or Authorized E Learning Manager. The Patient or Authorized E Learning Manager has agreed to proceed with the sensitive examination. (Sensitive examination includes inspection and/or palpation of the breasts, pelvis, prostate and anorectal regions). PHYSICAL EXAM: BP 118/82 Ht 5' 5" (1.65m) Wt 161 lb (73.0kg) LMP 08/19/2024 [...] activity, and crown-rump length 12w 2 days [facility] to room for dating verification SBIRT [...] Your guide to a health and the Ski Edge Painter. 2) Screening: Hemoglobin A1C: ordered Baby Aspirin: [...] in 4 weeks for PEGGY or sooner prnTameka Turner APRN.CNM documented in this encounterSelect [facility] Radiology Diagnostic study note Imaging Services [address] [place] [address] Transvaginal w/Preg US MR#: [id number] Acct: [id number] Name: SHILPA HOANG Rep #: [id number] : 1995 F 28 From: Peggy Tapia MD PCP: Dr. David Mckinney MD Status: REG CLI Study:Transvaginal w/Preg US Date of Exam: 10/21/24 Exam# [id number] Ordering Dr: Chelsi Cárdenas DO PROCEDURE: TRANSVAGINAL [...] weeks 1 day, JANE 05/25/2025. Reading Location: [id number] CC: Dr. David Mckinney MD; DO Corby Wood Sharepoint Application Developer: Signed [facility]04-23-2025 Telephone encounter Note* Telephone Encounter - Carla Mckinney RN - 10/13/2024 10:27 AM EDT Patient has appt - closing encounter. Carla Mckinney RN [facility]04-23-2025 Miscellaneous Notes* Telephone Encounter - Carla Mckinney [...] have it, so she can receive the "carecompanion" messages. Will forward this encounter to the [...] Return call to: self Call patient at: [phone] (cell), it is OK to leave message Payor: [facility] MEDICAID / Plan: [facility] MEDICAID / Product Type: Medicaid / Jennifer Roldan documented in this encounterSelect Medical [facility]04-18-2025 Telephone encounter Note * Telephone Encounter - [...] have it, so she can receive the "carecompanion" messages. Will forward this encounter to the schedulers in this office. [facility]04-18-2025 Telephone encounter Note* Telephone Encounter - Margarita [...] Return call to: self Call patient at: [phone] (cell), it is OK to leave message Payor: [facility] MEDICAID / Plan: [facility] MEDICAID / Product Type: Medicaid / Jeninfer Roldan [facility]03-27-2025 NoteHNO ID: [id number] Author: HORTENCIA GOULD APRN.CNP Service: ? Author Type: Nurse Practitioner Type: Progress Notes Filed: 09/16/2024 17:11 Note Text: Patient declined seaport planning manager. Shilpa presents today for IUD insertion [...] which included preparing to see the patient, xmjg-vo-owjm patient care, completing clinical documentation, obtaining and/or reviewing separately obtained history, performing a medically appropriate examination, counseling and educating the patient/family/caregiver, and ordering medications, tests, or procedures. [facility]03-27-2025 History of Present illness Narrative* Hortencia Gould APRN.CNP - 09/16/2024 1:33 PM EDT Patient declined seaport planning manager. Shilpa presents today for IUD insertion [...] which included preparing to see the patient, mnwi-kn-mcui patient care, completing clinical documentation, obtaining and/or reviewing separately obtained history, performing a medically appropriate examination, counseling and educating the pat ient/family/caregiver, and ordering medications, tests, or procedures. documented in this encounterSelect Medical [facility]03-27-2025 Instructions* Patient Instructions* Babita Blankenship LPN - [...] the office. documented in this encounterSelect Medical [facility]02-14-2025 Telephone encounter Note * Telephone Encounter - Sharda Valero APRN.CNP - 08/06/2024 4:35 PM EST Please let the pt know that her Pap is normal, but it showed that she was Trich positive. I would like her to come in for a vaginal culture to confirm as pap is not the reliable test. Sharda Valero APRN.CNP [facility]02-14-2025 Miscellaneous Notes* Telephone Encounter - Sharda Valero APRN.CNP - 08/06/2024 4:35 PM EST Please let the pt know that her Pap is normal, but it showed that she was Trich positive. I would like her to come in for a vaginal culture to confirm as pap is not the reliable test. Sharda Valero APRN.CNP documented in this encounterSelect Medical [facility]02-06-2025 NoteHNO ID: [id number] Author: SHARDA VALERO APRN.CNP Service: ? Author Type: Nurse Practitioner Type: Progress Notes Filed: 07/29/2024 13:46 Note Text: VISIT Shilpa Hoang is a 28 year old year old here for visit. Delivery Summary: 06/18/24 ROS/ Recovery: Feeding: Bottle feeding problems: n/a Menses since delivery: n/a Menstrual pattern prior to : Regular periods Grandfalls since delivery: Not resumed Depression: denies symptoms [...] discussed with the Patient or Patient's Authorized E Learning Manager. As applicable, any other physician, advance practice provider, medical student, or other health professional student that will be observing or involved in the sensitive examination for educational or training purposes was discussed with the Patient or Authorized E Learning Manager. The Patient or Authorized E Learning Manager has agreed to proceed with the sensitive examination. (Sensitive examination includes inspection and/or palpation of the breasts, pelvis, prostate and anorectal regions). BP 112/76 Ht 5' 4" (1.63m) Wt 169 lb (76.7kg) LMP 09/28/2023 [...] external genitalia normal, normal Bartholin's glands, urethra, [place]ripp[place]'s glands, no vulvar lesions, no cervical lesions, physiologic discharge present, normal appearing perineal body and perianal region BIMANUAL: uterus normal size, shape and consistency, no adnexal masses, and non-tender NEURO: alert and oriented x3,exam grossly non-focal EXTREMITIES: normal ASSESSMENT AND PLAN: 28 year old status post with normal course. Contraception plan: IUD - Mirena Follow up: RTC for insertion of IUD Sharda Valero APRN.CNPHigh[facility]02-06-2025 History of Present illness Narrative* Sharda Valero APRN.KAITLYNN - 07/29/2024 1:17 PM EST VISIT Shilpa Hoang is a 28 year old year old here for visit. Delivery Summary: 06/18/24 ROS/ Recovery: Feeding: Bottle feeding problems: n/a Menses since delivery: n/a Menstrual pattern prior to : Regular periods Grandfalls since delivery: Not resumed Depression: denies symptoms [...] discussed with the Patient or Patient's Authorized E Learning Manager. As applicable, any other physician, advance practice provider, medical student, or other health professional student that will be observing or involved in the sensitive examination for educational or training purposes was discussed with the Patient or Authorized E Learning Manager. The Patient or Authorized E Learning Manager has agreed to proceed with the sensitive examination. (Sensitive examination includes inspection and/or palpation of the breasts, pelvis, prostate and anorectal regions). BP 112/76 Ht 5' 4" (1.63m) Wt 169 lb (76.7kg) LMP 09/28/2023 [...] external genitalia normal, normal Bartholin's glands, urethra, Cripp[place]'s glands, no vulvar lesions, no cervical lesions, [...] this encounterSelect [facility]01-09-2025 NoteHNO ID: [id number] Author: JEANETTE PATEL MD Service: ? Author [...] in bassinet/crib in parent's room, feels rested Grandfalls since delivery: Not resumed Emotional support: Yes [...] week visit and as needed Jeanette Patel [facility]01-09-2025 History of Present illness Narrative* Jeanette [...] in bassinet/crib in parent's room, feels rested Grandfalls since delivery: Not resumed Emotional support: Yes [...] this encounterSelect Medical [facility]12-30-2024 NoteHNO ID: [id number] Author: MARGARITA HEARN RN Service: ? Author Type: Registered Nurse Type: Progress Notes Filed: 06/21/2024 10:56 Note Text: Patient delivered via at [facility] on 06/18/24 per Margarita Alcala MD . See OB Outcome note. Margarita Hearn RNHighland District Hospital12-30-2024 History of Present illness Narrative* Margarita Hearn RN - 06/21/2024 10:54 AM EST Patient delivered via at [facility] on 06/18/24 per Margarita Alcala MD . See OB Outcome note. Margarita Hearn RN documented in this encounterSelect Medical [facility]12-28-2024 [facility] Medical Records Department [address] [place] [address] Discharge Summary 06/19/24 0448 MR#: [id number] Acct: [id number] Name: SHILPA HOANG Rep #: [id number] : 1995 28 From: Margarita Alcala MD PCP: Dr. David Mckinney MD Status:DIS IN Location: [facility] MY368-2 Providers Date of Admission: 06/17/24 Date of [...] on 06/22 Medications at Discharge Home Medications fhoeipta-mzy-Gu-FA 1 mg tablet 1 tab PO DAILY [...] 1-2 and 6 weeks or as needed. [phone] Meaningful Use Info Meaningful Use Meaningful Use [...] Provider: David Mckinney Discharge Orders/Prescriptions Prescriptions: Continued ggwwgvcu-btp-Pk-FA 1 mg Tablet 1 tab PO DAILY [...] can be placed): Home, Self Care 06/20/24 9075 Cosigner Signature (if applicable): CC: Dr. David Mckinney MD; Dr. Margarita Alcala MD [facility]12-26-2024 Evaluation note* Diagnosis Onset Date Resolution Status [...] delivery) acute June 17, 2 024 3:30pm [facility] Work Phone: [phone]) 505-399512-26-2024 Progress note* Quick Notes - Johana Turner [...] care - RTO 1 week for NST/PEGGY Johana Turner APRN.CNM [facility]12-26-2024 Miscellaneous Notes* Quick Notes - Johana Turner [...] care - RTO 1 week for NST/PEGGY Johana Turner APRN.CNM documented in this encounterSelect Medical [facility]12-26-2024 NoteHNO ID: [id number] Author: JOHANA TURNER APRN.CNM Service: ? Author Type: Car Top Bolter Type: Progress Notes Filed: 06/17/2024 10:25 Note [...] TOCO: None Interpretation: Reactive SIGNATURE: Johana Turner APRN.CNCleveland Clinic Luther[facility]12-26-2024 History of Present illness Narrative* Johana [...] this encounterSelect Medical [facility]12-26-2024 Instructions* Patient Instructions* Terrie Ramirez MA - 06/17/2024 8:43 AM EST SEQUENTIAL SCREENINGS The [facility] offers sequential screenings for women who are [...] testing. It will require an appointment withour golf technician. This is not an ultrasound performed [...] the above symptoms, contact our office at [phone] and ask to speak with anurse. After hours, you can call doctors registry at [phone] OR call [facility] at [phone] ask to have the doctor phone specialist paged. If you consider this an emergency, dial 9-1-2 or go to your nearest emergency department. NEED HELP? Are you dealing with a violent or abusive relationship? Are you a victim of rape or sexual assult? Call [facility] [place] ([facility] 24 hour Crisis Hotline: 802.628.2251 or 425-983-7289. MANUAL Your Guide to a Healthy manual is now on-line. Visit [email or web address] to download your free copy documented in this encounterSelect Medical [facility]12-23-2024 Telephone encounter Note * Telephone Encounter - Margarita Hearn RN - 06/14/2024 11:06 AM EST Faxed via [employer]. Margarita Hearn RN [facility]12-23-2024 Miscellaneous Notes* Telephone Encounter - Margarita Hearn RN - 06/14/2024 11:06 AM EST Faxed via [employer]. Margarita Hearn RN * Telephone Encounter - Jennifer Roldan - 06/14/2024 10:28 AM EST [facility] OB is requesting H&P to be faxed to [phone]. documented in this encounterSelect Medical [facility]12-23-2024 Telephone encounter Note * Telephone Encounter - Jennifer Roldan - 06/14/2024 10:28 AM EST [facility] OB is requesting H&P to be faxed to [phone]. [facility]12-21-2024 Note Indication Evaluation of growth, Evaluation of [...] 15 oz EFW by: Hadlock (HC-AC-FL) Extended Business Continuity Management Director 5.7 mm Extremities / Bony Struc [place] [...] RDMS, RVT Read By: Vilma Farrell M.D.MATERNAL [id number] NoteHNO ID: [id number] Author: SARAH HUBER MD Service: ? Author [...] Interpretation: Category I and Reactive SIGNATURE: LIZZETTE LaneAkron [facility]12-[facility]-2024 History of Present illness Narrative* Sarah [...] this encounterSelect Medical [facility]12-20-2024 Progress note* Quick Notes - Sarah Huber [...] MD [facility]12-20-2024 Miscellaneous Notes* Quick Notes - Sarah Huber [...] this encounterSelect Medical [facility]12-20-2024 Instructions* Patient Instructions* Terrie Ramirez MA - 06/11/2024 10:48 AM EST SEQUENTIAL SCREENINGS The [facility] offers sequential screenings for women who are [...] testing. It will require an appointment withour golf technician. This is not an ultrasound performed [...] the above symptoms, contact our office at [phone] and ask to speak with anurse. After hours, you can call doctors registry at [phone] OR call [facility] at [phone] ask to have the doctor phone specialist paged. If you consider this an emergency, dial 1-0-7 or go to your nearest emergency department. NEED HELP? Are you dealing with a violent or abusive relationship? Are you a victim of rape or sexual assult? Call [facility] ([place]) 24 hour Crisis Hotline: 634.174.7733 or 794-587-2045. MANUAL Your Guide to a Healthy manual is now on-line. Visit [email or web address] to download your free copy documented in this encounterSelect Medical [facility]12-18-2024 NoteHNO ID: [id number] Author: CARLOS MORALES RN Service: ? Author [...] a provider for review and evaluation for treatment.[facility]12-18-2024 History of Present illness Narrative* Carlos [...] this encounterSelect Medical [facility]12-12-2024 Telephone encounter Note * Telephone Encounter - Margarita Hearn RN - 06/03/2024 3:54 PM EST [id number] Patient notified. Will have iron studies drawn tomorrow. Margarita Hearn RN [facility]12-12-2024 Miscellaneous Notes* Telephone Encounter - Margarita Hearn [...] this encounterSelect Medical [facility]12-12-2024 Telephone encounter Note * Telephone Encounter - Margarita Hearn RN - 06/03/2024 3:15 PM EST Patient will need to have iron studies drawn first before Blood Management can work on referral. Please file pending orders. Will then call patient. Margarita Hearn RN [facility]12-12-2024 Telephone encounter Note* Telephone Encounter - Halle Orellana APRN.CNP - 06/03/2024 3:07 PM EST Hemoglobin 8.8. Blood management referral placed. Please assist in arranging. Halle Orellana APRN.CNP [facility]12-12-2024 NoteHNO ID: [id number] Author: HALLE ORELLANA APRN.CNP Service: ? Author Type: Nurse Practitioner Type: Procedures Filed: 06/03/2024 14:58 Note Text: NST SUMMARY PROVIDER ASSESSMENT AND INTERPRETATION Indications for NST: Previous IUFD Baseline: 120 Variability: Moderate Accelerations: Present 15 X 15 Decelerations: None Interpretation: Reactive SIGNATURE: Halle Orellana APRN.CNPHighland District Hospital12-12-2024 Procedure note* Halle Orellana APRN.CNP - 06/03/2024 2:04 PM EST NST SUMMARY PROVIDER ASSESSMENT AND INTERPRETATION Indications for NST: Previous IUFD Baseline: 120 Variability: Moderate Accelerations: Present 15 X 15 Decelerations: None Interpretation: Reactive SIGNATURE: Halle Orellana APRN.CNP [facility]12-12-2024 Procedure note* Halle Orellana APRN.CNP - 06/03/2024 2:04 PM EST NST SUMMARY PROVIDER ASSESSMENT AND INTERPRETATION Indications for NST: Previous IUFD Baseline: 120 Variability: Moderate Accelerations: Present 15 X 15 Decelerations: None Interpretation: Reactive SIGNATURE: Halle Orellana APRN.CNP documented in this encounterSelect Medical [facility]12-12-2024 Progress note* Quick Notes - Halle Orellana [...] week or sooner as needed. Halle Orellana APRN.FACILITY OPERATIONS MANAGER [facility]12-12-2024 Miscellaneous Notes* Quick Notes - Halle Orellana APRN.FACILITY OPERATIONS MANAGER - 06/03/2024 1:46 PM EST EH - [...] week or sooner as needed. Halle Orellana APRN.FACILITY OPERATIONS MANAGER documented in this encounterSelect Medical Cleveland Clinic [facility]12-12-2024 Instructions* Patient Instructions* Alicia Holliday MA - 06/03/2024 1:45 PM EST SEQUENTIAL SCREENINGS The [facility] offers sequential screenings for women who are [...] testing. It will require an appointment withour golf technician. This is not an ultrasound performed [...] the above symptoms, contact our office at [phone] and ask to speak with anurse. After hours, you can call doctors registry at [phone] OR call [facility] at [phone] ask to have the doctor phone specialist paged. If you consider this an emergency, dial 7-8-2 or go to your nearest emergency department. NEED HELP? Are you dealing with a violent or abusive relationship? Are you a victim of rape or sexual assult? Call [facility] ([place]) 24 hour Crisis Hotline: 839.792.3508 or 667-540-3016. MANUAL Your Guide to a Healthy manual is now on-line. Visit [email or web address] to download your free copy documented in this encounterSelect Medical [facility]12-03-2024 NoteHNO ID: [id number] Author: JEANETTE PATEL MD Service: ? Author [...] Contractions: TOCO: None Interpretation: Reactive SIGNATURE: LIZZETTE MarreroAkron Children's [facility]12-03-2024 History of Present illness Narrative* Jeanette [...] this encounterSelect Medical [facility]12-03-2024 Progress note* Quick Notes - Jeanette Patel [...] MD [facility]12-03-2024 Miscellaneous Notes* Quick Notes - Jeanette Patel [...] this encounterSelect Medical [facility]12-03-2024 Instructions* Patient Instructions* Babita Blankenship LPN - 05/25/2024 1:15 PM EST SEQUENTIAL SCREENINGS The [facility] offers sequential screenings for women who are [...] testing. It will require an appointment withour golf technician. This is not an ultrasound performed [...] the above symptoms, contact our office at [phone] and ask to speak with anurse. After hours, you can call doctors registry at [phone] OR call [facility] at [phone] ask to have the doctor phone specialist paged. If you consider this an emergency, dial 9-1-4 or go to your nearest emergency department. NEED HELP? Are you dealing with a violent or abusive relationship? Are you a victim of rape or sexual assult? Call [facility] ([place]) 24 hour Crisis Hotline: 892.307.8517 or 624-978-2027. MANUAL Your Guide to a Healthy manual is now on-line. Visit [email or web address] to download your free copy documented in this encounterSelect Medical [facility]11-28-2024 Telephone encounter Note * Telephone Encounter - Rex Nam RN - 05/20/2024 3:57 PM EST Reason for call: Patient's calling regarding CDC ASSOCIATE page sent. Patient missed the [facility], requesting that another page be sent. Outcome: Conferenced to [place] CDC ASSOCIATE Answering Service [ ] to speak with provider priscilla for Dr. Alcala. Per Boo at answering service, calls needs to be handled by Means. Transferred to [facility] electronic heat seal operator (), states that page was sent for CDC ASSOCIATE phone specialist. Updated patient's on plan of care, verbalized understanding, no further questions/concerns at this time. GO TO THE EMERGENCY ROOM OR CALL 911 IF: * You develop any new symptoms * Your condition worsens * You are concerned or anxious about your condition for any other reason. If you have any questions, you can call Nurse automobile brake bonder back. [facility]11-28-2024 Miscellaneous Notes* Telephone Encounter - Rex Nam RN - 05/20/2024 3:57 PM EST Reason for call: Patient's calling regarding CDC ASSOCIATE page sent. Patient missed the call fromprovider, requesting that another page be sent. Outcome: Conferenced to [place] CDC ASSOCIATE Answering Service [ ] to speak with provider oncall for Dr. Alcala. Per Boo at answering service, calls needs to be handled by Means. Transferred to [facility] electronic heat seal operator (), states that page was sent for CDC ASSOCIATE phone specialist. Updated patient's on plan of care, verbalized understanding, no further questions/concerns at this time. GO TO THE EMERGENCY ROOM OR CALL 911 IF: * You develop any new symptoms * Your condition worsens * You are concerned or anxious about your condition for any other reason. If you have any questions, you can call Nurse automobile brake bonder back. documented in this encounterSelect Medical [facility]11-28-2024 Telephone encounter Note * Telephone Encounter - Deanna Olivares RN - 05/20/2024 3:36 PM EST Patient calling regarding she is 34 weeks and is having swelling in her feet and hands. Conferenced to [place] CDC ASSOCIATE Answering [phone] to speak with provider phone specialist for Dr. Margarita Alcala. [facility]11-28-2024 Miscellaneous Notes* Telephone Encounter - Deanna Olivares RN - 05/20/2024 3:36 PM EST Patient calling regarding she is 34 weeks and is having swelling in her feet and hands. Conferenced to [place] CDC ASSOCIATE Answering [phone] to speak with provider phone specialist for Dr. Margarita Alcala. documented in this encounterSelect Medical Cleveland [facility]11-20-2024 Progress note* Quick Notes - Sarah Huber MD - 05/12/2024 3:59 PM EST DM-Pt doing well. Denies vaginal Bleeding, Leaking fluid, or regular Contractions. Pt reports good movement. Had growth us and bpp today. Physical Exam: Gen: female in no apparent distress Abd: soft, Gravid. Non tender to palpation. See flow sheet @ 32.3 [facility] Assessment & Plan Supervision of high risk in third trimester History of IUFD 32 weeks gestation of Orders: RSV VACCINE, BIVALENT (ABRYSVO) weekly NSTs Kick counts , RTO 2 wks routine OB, NST weekly Needs to start Iron Sarah Warner MD [facility]11-20-2024 Miscellaneous Notes* Quick Notes - Sarah Huber MD - 05/12/2024 3:59 PM EST DM-Pt doing well. Denies vaginal Bleeding, Leaking fluid, or regular Contractions. Pt reports good movement. Had growth us and bpp today. Physical Exam: Gen: female in no apparent distress Abd: soft, Gravid. Non tender to palpation. See flow sheet @ 32.3 [facility] Assessment & Plan Supervision of high risk in third trimester History of IUFD 32 weeks gestation of Orders: RSV VACCINE, BIVALENT (ABRYSVO) weekly NSTs Kick counts , RTO 2 wks routine OB, NST weekly Needs to start Iron Sarah Warner MD documented in this encounter[facility] Note Indication Evaluation of growth, Evaluation of [...] 12 oz EFW by: Hadlock (HC-AC-FL) Extended Business Continuity Management Director 3.5 mm Extremities / Bony Struc [place] [...] RDMS, RVT Read By: Vilma Farrell M.D.MATERNAL [id number] Instructions* Patient Instructions* Terrie Ramirez MA - 05/12/2024 3:26 PM EST SEQUENTIAL SCREENINGS The [facility] offers sequential screenings for women who are [...] testing. It will require an appointment withour golf technician. This is not an ultrasound performed [...] the above symptoms, contact our office at [phone] and ask to speak with anurse. After hours, you can call doctors registry at [phone] OR call [facility] at [phone] ask to have the doctor phone specialist paged. If you consider this an emergency, dial 9--2 or go to your nearest emergency department. NEED HELP? Are you dealing with a violent or abusive relationship? Are you a victim of rape or sexual assult? Call [facility] ([place]) 24 hour Crisis Hotline: 291.617.6159 or 442-010-4867. MANUAL Your Guide to a Healthy manual is now on-line. Visit [email or web address] to download your free copy documented in this encounterSelect [facility] Telephone encounter Note * Telephone Encounter - Nicci Mckeon RN - 04/29/2024 9:35 AM EST Pt notified of need for weekly NSTs starting at 32 weeks. Appointments set up for next 3 weeks. Nicci Mckeon RN [facility]11-07-2024 Telephone encounter Note* Telephone Encounter - Nicci Mckeon RN - 04/29/2024 9:35 AM EST Images from the original note were not included. Margarita Alcala MD P tr Ob-Trigonometry Teacher Pool This patient is also suppose to be weekly NSTs at 32 weeks because of HX of IUFD (M recommended) She was suppose to schedule theses as she left and it does not appear she did. [facility]11-07-2024 Miscellaneous Notes* Telephone Encounter - Nicci Mckeon RN - 04/29/2024 9:35 AM EST Pt notified of need for weekly NSTs starting at 32 weeks. Appointments set up for next 3 weeks. Nicci Mckeon RN * Telephone Encounter - Nicci Mckeon RN - 04/29/2024 9:35 AM EST Images from the original note were not included. Margarita Alcala MD P tr Ob-Trigonometry Teacher Pool This patient is also suppose to be weekly NSTs at 32 weeks because of HX of IUFD (M recommended) She was suppose to schedule theses as she left and it does not appear she did. documented in this encounterSelect [facility] Progress note* Quick Notes - Margarita Alcala [...] MD [facility]11-06-2024 Miscellaneous Notes* Quick Notes - Margarita Alcala [...] this encounterSelect [facility]-2024 Instructions* Patient Instructions* Terrie Ramirez MA - 04/28/2024 1:29 PM EST SEQUENTIAL SCREENINGS The [facility] offers sequential screenings for women who are [...] testing. It will require an appointment withour golf technician. This is not an ultrasound performed [...] the above symptoms, contact our office at [phone] and ask to speak with anurse. After hours, you can call doctors registry at [phone] OR call [facility] at [phone] ask to have the doctor phone specialist paged. If you consider this an emergency, dial 9-1-8 or go to your nearest emergency department. NEED HELP? Are you dealing with a violent or abusive relationship? Are you a victim of rape or sexual assult? Call [facility] ([place]) 24 hour Crisis Hotline: 923.109.9434 or 984-090-2218. MANUAL Your Guide to a Healthy manual is now on-line. Visit [email or web address] to download your free copy documented in this encounterSelect [facility] Telephone encounter Note * Telephone Encounter - Margarita Hearn RN - 04/22/2024 4:43 PM EDT Left detailed message on identified voicemail. Margarita Hearn RN [facility]10-31-2024 Miscellaneous Notes* Telephone Encounter - Margarita Hearn [...] this encounterSelect [facility]24 Telephone encounter Note * Telephone Encounter - Johana Turner APRN.CNM - 04/22/2024 3:06 PM EDT If patient is not having any current pain or cramping, and feeling positive movement, I am fine forher to monitor at home. She can be seen tomorrow in office if needed. Johana Turner APRN.CNM [facility] Work Phone: 1(149) 503-289410-31-2024 Telephone encounter Note* Telephone Encounter - Margarita [...] Thank you. Margarita Hearn RN [facility]10-28-2024 Telephone encounter Note* Telephone Encounter - Carla Mckinney RN - 04/19/2024 8:48 AM EDT 3rd risk assessment form submitted 04/19/24 Carla Mckinney RN [facility]10-28-2024 Miscellaneous Notes* Telephone Encounter - Carla Mckinney RN - 04/19/2024 8:48 AM EDT 3rd risk assessment form submitted 04/19/24 Carla Mckinney RN documented in this encounterSelect [facility] Note Indication Evaluation of growth Maternal obesity, [...] 9 oz EFW by: Hadlock (HC-AC-FL) Extended Business Continuity Management Director 3.5 mm Extremities / Bony Struc [place] [...] know sex: yes Performed By: Khushboo Easley, [facility], RVT Read By: Vilma Farrell M.D.MATERNAL [id number] Progress note* Quick Notes - Margarita Alcala [...] MD [facility]10-23-2024 Miscellaneous Notes* Quick Notes - Margarita Alcala [...] this encounterSelect [facility] History of Present illness Narrative* Ida Cisneros MA - 04/14/2024 10:28 AM EDT Patient identified by name and date of . Shipla Hoang presents today for a vaccination of Tdap. Patient denies an allergy to latex: yes Patient denies a severe (life-threatening) allergy to a previous dose of Tdap, DTP, DTaP, DT or Td vaccine. Yes Patient denies history of epilepsy or neurological problems: Yes Patient is afebrile and denies being moderately or severely ill: Yes Patient denies history of Guillain-Bremen Syndrome (a severe paralytic illness): Yes Tdap Adacel injection was given without incident. See immunizations for details of immunizations administered today. VIS sheet provided: Yes Provider Margarita Alcala MD was present in office at time of injection. Ida Cisneros MA documented in this encounterSelect [facility] Instructions* Patient Instructions* Ida Cisneros MA - 04/14/2024 10:26 AM EDT SEQUENTIAL SCREENINGS The [facility] offers sequential screenings for women who are [...] testing. It will require an appointment withour golf technician. This is not an ultrasound performed [...] the above symptoms, contact our office at [phone] and ask to speak with anurse. After hours, you can call doctors registry at [phone] OR call [facility] at [phone] ask to have the doctor phone specialist paged. If you consider this an emergency, dial 4-5-7 or go to your nearest emergency department. NEED HELP? Are you dealing with a violent or abusive relationship? Are you a victim of rape or sexual assult? Call [facility] ([place]) 24 hour Crisis Hotline: 605.901.8842 or 442-833-6121. MANUAL Your Guide to a Healthy manual is now on-line. Visit [email or web address] to download your free copy documented in this encounterSelect [facility]-2024 Progress note* Quick Notes - Marcela Connors [...] APRN.CNM [facility] Work Phone: 1(106) 973-675010-11-2024 Miscellaneous Notes* Quick Notes - Marcela Connors [...] this encounterSelect [facility]-2024 Instructions* Patient Instructions* Shahzad Romero MA - 04/02/2024 4:18 PM EDT SEQUENTIAL SCREENINGS The [facility] offers sequential screenings for women who are [...] testing. It will require an appointment withour golf technician. This is not an ultrasound performed [...] the above symptoms, contact our office at [phone] and ask to speak with anurse. After hours, you can call doctors registry at [phone] OR call [facility] at [phone] ask to have the doctor phone specialist paged. If you consider this an emergency, dial 9-1- or go to your nearest emergency department. NEED HELP? Are you dealing with a violent or abusive relationship? Are you a victim of rape or sexual assult? Call [facility] ([facility] 24 hour Crisis Hotline: 383.679.9184 or 635-500-1668. MANUAL Your Guide to a Healthy manual is now on-line. Visit [email or web address] to download your free copy documented in this encounterSelect [facility]09-[facility] Note Indication Evaluation of growth IUFD 26 [...] 9 oz EFW by: Hadlock (HC-AC-FL) Extended Business Continuity Management Director 3.3 mm Extremities / Bony Struc [place] [...] RDMS, RVT Read By: Vilma Farrell M.D.MATERNAL [id number] Progress note* Quick Notes - Jt Lugo [...] M.D. [facility]09-25-2024 Miscellaneous Notes* Quick Notes - Jt Lugo [...] this encounterSelect [facility]09-25-2024 Instructions* Patient Instructions* Babita Blankenship LPN - 03/17/2024 2:46 PM EDT SEQUENTIAL SCREENINGS The [facility] offers sequential screenings for women who are [...] testing. It will require an appointment withour golf technician. This is not an ultrasound performed [...] the above symptoms, contact our office at [phone] and ask to speak with anurse. After hours, you can call doctors registry at [phone] OR call [facility] at [phone] ask to have the doctor phone specialist paged. If you consider this an emergency, dial 91-7 or go to your nearest emergency department. NEED HELP? Are you dealing with a violent or abusive relationship? Are you a victim of rape or sexual assult? Call [facility] [place] ([facility] 24 hour Crisis Hotline: 295.131.8936 or 637-806-6853. MANUAL Your Guide to a Healthy manual is now on-line. Visit [email or web address] to download your free copy SEQUENTIAL SCREENINGS The [facility] offers sequential screenings for women who are [...] testing. It will require an appointment withour golf technician. This is not an ultrasound performed [...] the above symptoms, contact our office at [phone] and ask to speak with anurse. After hours, you can call doctors registry at [phone] OR call [facility] at [phone] ask to have the doctor phone specialist paged. If you consider this an emergency, dial 02-21-1 or go to your nearest emergency department. NEED HELP? Are you dealing with a violent or abusive relationship? Are you a victim of rape or sexual assult? Call [facility] ([place]) 24 hour Crisis Hotline: 628.282.4526 or 924-217-8134. MANUAL Your Guide to a Healthy manual is now on-line. Visit [email or web address] to download your free copy documented in this encounterSelect Medical [facility]08-[facility]-2024 Telephone encounter Note * Telephone Encounter - Carla Mckinney RN - 02/18/2024 9:53 AM EDT 2nd risk assessment form submitted 02/18/24 Carla Mckinney RN [facility]08-28-2024 Miscellaneous Notes* Telephone Encounter - Carla Mckinney RN - 02/18/2024 9:53 AM EDT 2nd risk assessment form submitted 02/18/24 Carla Mckinney RN documented in this encounterSelect [facility]08-27-2024 Progress note* Quick Notes - Margarita Alcala [...] MD [facility]08-27-2024 Miscellaneous Notes* Quick Notes - Margarita Alcala [...] this encounterSelect Medical [facility]08-27-2024 Instructions* Patient Instructions* Ida Cisneros MA - 02/17/2024 9:23 AM EDT SEQUENTIAL SCREENINGS The [facility] offers sequential screenings for women who are [...] testing. It will require an appointment withour golf technician. This is not an ultrasound performed [...] the above symptoms, contact our office at [phone] and ask to speak with anurse. After hours, you can call doctors registry at [phone] OR call [facility] at [phone] ask to have the doctor phone specialist paged. If you consider this an emergency, dial 9-1-1 or go to your nearest emergency department. NEED HELP? Are you dealing with a violent or abusive relationship? Are you a victim of rape or sexual assult? Call [facility] ([facility] 24 hour Crisis Hotline: 485.750.1157 or 174-660-2849. MANUAL Your Guide to a Healthy manual is now on-line. Visit [email or web address] to download your free copy documented in this encounterSelect Medical [facility]08-27-2024 History of Present illness Narrative* Vilma Farrell MD - 02/17/2024 9:08 AM EDT Images from the original note were not included. Cart Attendant [place] OUTPATIENT VISIT DATE February 17, 2024 OUTPATIENT VISIT TYPE CONSULT REFERRING PROVIDER: Jeanette Patel MD Recommendations from today's consultation will be conveyed through the electronic medical record. History of Present Illness: 28 year old at 20w2d with Estimated Date of Delivery: 07/04/24 presenting for consultation with Maternal- Medicine at the [facility] in the setting of complicated history of [...] Living: Demise, Comments: IUFD, placenta fragmented-manually removed, [id number], pt went to [facility] for fever and [...] Reported on 02/17/2024) Allergies: ALLERGIES Allergen Reactions [place] Anaphylaxis [place] Intolerance Seasonal Allergies Cough Social History: Social [...] Recommendations: Problem List Items Addressed This Visit CDC ASSOCIATE History of gestational hypertension - Primary Current [...] this encounterSelect [facility]-30-2024 Miscellaneous Notes* Quick Notes - Sarah Huber MD - 01/20/2024 3:03 PM EDT DM-Pt doing well. Denies vaginal Bleeding, Leaking fluid, or regular Contractions. Pt reports good movement Physical Exam: Gen: female in no apparent distress Abd: soft, Gravid. Non tender to palpation. See flow sheet A/P: @ 16.2 weeks 1) anatomy us scheduled with [facility] 2) continue ASA 3) second trimester screen today 4) RTO 4 wks. Sarah Warner MD documented in this encounterSelect Medical [facility]-2024 Progress note* Quick Notes - Sarah Huber MD - 01/20/2024 3:03 PM EDT DM-Pt doing well. Denies vaginal Bleeding, Leaking fluid, or regular Contractions. Pt reports good movement Physical Exam: Gen: female in no apparent distress Abd: soft, Gravid. Non tender to palpation. See flow sheet A/P: @ 16.2 weeks 1) anatomy us scheduled with [facility] 2) continue ASA 3) second trimester screen today 4) RTO 4 wks. Sarah Warner MD [facility]07-19-2024 Telephone encounter Note* Telephone Encounter - Jeanette Patel MD - 01/09/2024 10:37 AM EDT Noted & agree Jeanette Patel MD [facility]07-19-2024 Miscellaneous Notes* Telephone Encounter - Jeanette Patel [...] this encounterSelect Medical [facility]07-[facility]-2024 Telephone encounter Note * Telephone Encounter - [...] RN [facility]07-11-2024 Progress note* Quick Notes - Jeanette Patel [...] MD [facility]07-11-2024 Miscellaneous Notes* Quick Notes - Jeanette Patel [...] this encounterSelect Medical [facility]07-11-2024 Instructions* Patient Instructions* Shahzad Romero MA - 01/01/2024 9:55 AM EDT SEQUENTIAL SCREENINGS The [facility] offers sequential screenings for women who are [...] testing. It will require an appointment withour golf technician. This is not an ultrasound performed [...] the above symptoms, contact our office at [phone] and ask to speak with anurse. After hours, you can call doctors registry at [phone] OR call [facility] at [phone] ask to have the doctor phone specialist paged. If you consider this an emergency, dial 9-5 or go to your nearest emergency department. NEED HELP? Are you dealing with a violent or abusive relationship? Are you a victim of rape or sexual assult? Call [facility] ([place]) 24 hour Crisis Hotline: 295.615.7056 or 660-058-2902. MANUAL Your Guide to a Healthy manual is now on-line. Visit [email or web address] to download your free copy documented in this encounterSelect Medical [facility]07-[facility]-2024 Telephone encounter Note * Telephone Encounter - Sarah Huber MD - 12/22/2023 3:06 PM EDT signed [facility]07-01-2024 Miscellaneous Notes* Telephone Encounter - Sarah Huber [...] this encounterSelect Medical [facility]07-[facility]-2024 Telephone encounter Note * Telephone Encounter - Khushboo Abraham RN - 12/22/2023 3:04 PM EDT Patient notified and voiced understanding. Please file pended order. Khushboo Abraham RN [facility]07-01-2024 Telephone encounter Note* Telephone Encounter - Sarah Huber MD - 12/22/2023 2:51 PM EDT Phener[place] ordered [facility]07-01-2024 Telephone encounter Note* Telephone Encounter - Margarita [...] RN [facility]06-10-2024 Progress note* Quick Notes - Tyshawn Lorenzana MD - 12/01/2023 12:16 PM EDT Pt is a multip presenting at 9w1d with c/o cramping in the absence of UTI and concerns regarding status. Recent trips t0 [facility] ER with dx of URI/viral and currently [...] . [facility] Work Phone: 1(127) 874-629706-10-2024 Miscellaneous Notes* Quick Notes - Tyshawn Lorenzana MD - 12/01/2023 12:16 PM EDT Pt is a multip presenting at 9w1d with c/o cramping in the absence of UTI and concerns regarding status. Recent trips t0 [facility] ER with dx of URI/viral and currently [...] this encounterSelect [facility]06-10-2024 Instructions* Patient Instructions* La Bowden MA - 12/01/2023 12:00 PM EDT SEQUENTIAL SCREENINGS The [facility] offers sequential screenings for women who are [...] testing. It will require an appointment withour golf technician. This is not an ultrasound performed [...] the above symptoms, contact our office at [phone] and ask to speak with anurse. After hours, you can call doctors registry at [phone] OR call [facility] at [phone] ask to have the doctor phone specialist paged. If you consider this an emergency, dial 9-1-0 or go to your nearest emergency department. NEED HELP? Are you dealing with a violent or abusive relationship? Are you a victim of rape or sexual assult? Call [facility] ([place]) 24 hour Crisis Hotline: 423.831.5121 or 188-221-7012. MANUAL Your Guide to a Healthy manual is now on-line. Visit [email or web address] to download your free copy documented in this encounterSelect Medical [facility]24 Telephone encounter Note * Telephone Encounter - Liza Champagne RN - 11/14/2023 9:56 AM EDT 1st risk assessment form submitted 11/14/2023 6w 5d today [facility]05-24-2024 Miscellaneous Notes* Telephone Encounter - Liza Champagne RN - 11/14/2023 9:56 AM EDT 1st risk assessment form submitted 11/14/2023 6w 5d today documented in this encounterSelect Medical [facility] History of Present illness Narrative* Sharda Valero [...] pre-existing diabetes: No No results found for: "ABORHD" No weight on file for this encounter. 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 Sharda Anjum, FULL TIME.FACILITY OPERATIONS MANAGER ASSESSMENT: 27 year old No obstetric history on file. at Unknown wks gestational age PLAN: 1) Patient oriented to practice. Patient given new OB orientation folder. Discussed nutrition, folic acid supplementation, dietary guidelines, exercise, smoking, alcohol, caffeine, and drug use. Discussed gestational weight gain guidelines. Discussed routine OB labs including STD/HIV. Discussed how to access Your guide to a health and the [employer]. Discussed hemoglobin electrophoresis. Patient: Declines Reviewed midwifery and home housekeeper services that are available. 2) Screening: Hemoglobin [...] this encounterSelect [facility]-2024 Instructions* Patient Instructions* Rachana Montanez LPN - 11/10/2023 3:12 PM EDT Please select the following link to access the [facility] Your Guide to a Healthy . [email or web address] Please select the following link to access the [facility] Your Guide to a Healthy . [email or web address] documented in this encounter[facility] Discharge summary Author Piter Bertrand [facility] July 17, 2023 4:54pm Note Date/Time July 17, 2023 4 :55pm [facility] Medical Records Department [address] [place] [address] Emergency Department Summary 07/17/23 MR#: [id number] Acct: [id number] Name: SHILPA HOANG Rep #:[id number] : [...] depression (spontaneous vaginal delivery) Trauma Home Medications oiljnfjg-zjq-Ne-FA 1 mg tablet 1 tab PO DAILY [...] and lower extremities. 5 out of 5 hospital food service worker strength bilaterally. Dorsi plantarflexion intact. Mild tenderness right posterior upper shoulder no bruising. Full range of motion of the right shoulder. Able to lift her arm overhead. Full flexion extension of the right elbow nontender. Minimal tenderness to the dorsum of the right wrist no deformity normal radial pulse normal hospital food service worker strength and sensation of the right hand. [...] your Primary Care Provider. Call [facility] ([phone]) or report to the closest Emergency Room. Call 911 if necessary. 07/17/23 1654 <Electronically signed by Piter Bertrand MD> Cosigner Signature (if applicable): CC: Dr. David Mckinney MD ~ Signed [facility] Work Phone: 1(919) 142-715010-25-2023 Discharge summary Author Joanna England [facility] April 16, 2023 11:19am Note Date/Time April 16, 2023 1 1:19am [facility] Physical Therapy [facility] [facility] [place] [address] / REHABILITATION SERVICES DISCHARGE SUMMARY MR#: [id number] Acct: [id number] Name: SHILPA HOANG Rep #: [id number] : 1995 27 From: Joanna England PT, Cert. T Referring Dr.: Dr. David Mckinney MD Status: [facility] Insurance: [facility] [place] PAY INSURANCE Patient Information Patient Information: SHILPA [...] Dr. David Mckinney MD ~ DENICE Signed [facility] Work Phone: 1(884) 974-146005-10-2023 NotePap Smear Specimen AdequacyMay 2022 1:29pmComment.Satisfactory for evaluation. Endocervical and/or squamous metaplasticcells (endocervical component)are present.Areas of partially obscuring inflammatory exudate are present.[facility] A#[id number] West [facility] HospitalComment on above:Satisfactory for evaluation. Endocervical and/or squamous metaplasticcells (endocervical component)are present.Areas of partially obscuring inflammatory exudate are present.10-30-2022 NotePap Smear Specimen AdequacyMay 2022 1:29pmComment.Satisfactory for evaluation. Endocervical and/or squamous metaplasticcells (endocervical component)are present.Areas of partially obscuring inflammatory exudate are present.[facility] INTER[facility] A#[id number] West [facility] HospitalComment on above:Satisfactory for evaluation. Endocervical and/or squamous metaplasticcells (endocervical component)are present.Areas of partially obscuring inflammatory exudate are present.10-30-2022 NotePap Smear Specimen AdequacyMay 2022 1:29pmComment. Satisfactory for evaluation. Endocervical and/or squamous metaplasticcells (endocervical component)are present.Areas of partially obscuring inflammatory exudate are present.[facility] A#[id number] [facility] Comment on above:Satisfactory for evaluation. Endocervical and/or squamous metaplasticcells (endocervical component)are present.Areas of partially obscuring inflammatory exudate are present.06-07-2022 Miscellaneous Notes* Addendum Note - Everardo Patel APRN.KAITLYNN - 06/07/2022 7:56 PM ESTAddended by: EVERARDO PATEL on: 06/07/2022 07:56 PM Modules accepted: Orders documented in this encounterSelect [facility]12-[facility]-2022 History of Present illness Narrative* Everardo Patel [...] plan. Everardo Patel APRN.KAITLYNN documented in this encounter[facility]09-[facility]22 Hospital Discharge instructions Additional Instructions Regular diet. Weightbearing as tolerated. Okay to shower. No intercourse for 4 to 6 weeks. Call if chest pain, shortness of breath increased bleeding. Follow-up 1 week for blood pressure check, 4 to 6 weeks for visit [facility]: [facility] Work Phone: [place] [employer] note* Diagnosis Onset Date Resolution Status 22 weeks gestation of acute Vaginal bleeding during , antepartum [facility] Work Phone: [phone] note* Diagnosis Onset Date Resolution Status 22 weeks gestation of acute Vaginal bleeding during , antepartum acute [facility] Work Phone: [phone] note* Diagnosis Onset Date Resolution Status 22 weeks gestation of acute Vaginal bleeding during , antepartum acute acute Irregular contractions acute Gestational hypertension [facility] Work Phone: [phone] note* Diagnosis Acute otitis media, right- Primary Unspecified otitis media URI, acute Acute upper respiratory infections of unspecified site documented in this encounter [facility] noteNo assessment information availableWChillicothe [facility] Center Work Phone: [phone] note* Diagnosis 6 weeks gestation of - Primary state, incidental care, subsequent in first trimester Encounter for supervision of normal in multigravida in first trimester History of gestational hypertension History of IUFD documented in this encounter [facility] note* Diagnosis Encounter for supervision of other normal in second trimester- Primary 13 weeks gestation of state, incidental History of IUFD documented in this encounter [facility] note* Diagnosis Encounter for (NT) nuchal translucency scan- Primary Other specified screening 13 weeks gestation of state, incidental Encounter for screening for malformation using ultrasound documented in this encounter [facility] note* Diagnosis Supervision of high risk in second trimester- Primary Unspecified high-risk History of IUFD History of gestational hypertension 16 weeks gestation of state, incidental documented in this encounter [facility] note* Diagnosis History of IUFD- [...] at 32 weeks documented in this encounter [facility] note* Diagnosis History of IUFD- [...] of gestational hypertension documented in this encounter [facility] note* Diagnosis History of IUFD- Primary Encounter for supervision of other normal in second trimester History of gestational hypertension History of drug abuse (HCC) Other, mixed, or unspecified nondependent drug abuse, in remission 20 weeks gestation of state, incidental Obesity affecting in second trimester, unspecified obesity type History of IUFD- Primary documented in this encounter [facility] note* Diagnosis History of IUFD- [...] TOTAL W/REFLEX; Future documented in this encounter [facility] note* Diagnosis History of IUFD- [...] of state, incidental documented in this encounter [facility] note* Diagnosis History of IUFD- [...] of state, incidental documented in this encounter [facility] note* Diagnosis History of IUFD- [...] unspecified single disease documented in this encounter [facility] note* Diagnosis History of IUFD- [...] or unspecified fetus [facility]* Diagnosis History of IUFD- Primary Encounter [...] History of IUFD documented [facility]* Diagnosis Encounter for supervision of normal in multigravida in first trimester- Primary 9 weeks gestation of state, incidental documented [facility] this [facility]* Diagnosis History of IUFD- Primary Encounter [...] History of IUFD documented in [facility]* Diagnosis History of IUFD- Primary Encounter [...] of state, incidental documented in this encounter [facility] note* Diagnosis History of IUFD- [...] History of IUFD documented in this encounter [facility] note* Diagnosis History of IUFD- [...] of state, incidental documented in this encounter [facility] note* Diagnosis History of IUFD- [...] unspecified obesity type documented in this encounter [facility] note* Diagnosis History of IUFD- [...] in third trimester documented in this encounter [facility] note* Diagnosis History of IUFD- [...] third trimester- Primary documented in this [facility]* Diagnosis History of IUFD- Primary Encounter [...] poly at 28cm) documented in this encounter [facility] note* Diagnosis History of IUFD- [...] of state, incidental [facility] [...] History of IUFD [facility]* Diagnosis History of IUFD- Primary Encounter [...] encounter [facility]* Diagnosis History of IUFD- Primary Encounter [...] encounter [facility]* Diagnosis History of IUFD- Primary Encounter [...] device documented in this [facility]* Diagnosis History of IUFD- Primary Encounter for supervision of other normal in second trimester ([facility]) History of gestational hypertension History of drug abuse (HCC) Other, mixed, or unspecified nondependent drug abuse, in remission 20 weeks gestation of ([facility]) state, incidental Obesity affecting in second trimester, unspecified obesity type ([facility]) Supervision of high risk in second trimester ([facility])- Primary Unspecified high-risk History of IUFD History of gestational hypertension 24 weeks gestation of ([facility]) state, incidental Supervision of high risk in third trimester ([facility])- Primary Unspecified high-risk Antepartum anemia complicating in third trimester ([facility]) History of gestational hypertension History of IUFD Leg swelling in in third trimester ([facility]) Breech presentation with problem, single or unspecified fetus (HCC) 36 weeks gestation of ([facility]) state, incidental with uncertain dates, antepartum ([facility])- Primary state, incidental 12 weeks gestation of ([facility]) state, incidental History of gestational hypertension Late care ([facility]) Insufficient care Generalized anxiety disorder History of drug abuse ([facility]) Other, mixed, or unspecified nondependent drug abuse, in remission Vapes nicotine containing substance Encounter for supervision of high risk in second trimester, antepartum ([facility]) History of IUFD documented in this encounter [facility] note* Diagnosis History of IUFD- Primary Encounter for supervision of other normal in second trimester ([facility]) History of gestational hypertension History of drug abuse ([facility]) Other, mixed, or unspecified nondependent drug abuse, in remission 20 weeks gestation of ([facility]) state, incidental Obesity affecting in second trimester, unspecified obesity type ([facility]) Supervision of high risk in second trimester ([facility])- Primary Unspecified high-risk History of IUFD History of gestational hypertension 24 weeks gestation of ([facility]) state, incidental Supervision of high risk in third trimester ([facility])- Primary Unspecified high-risk Antepartum anemia complicating in third trimester ([facility]) History of gestational hypertension History of IUFD Leg swelling in in third trimester ([facility]) Breech presentation with problem, single or unspecified fetus ([facility]) 36 weeks gestation of ([facility]) state, incidental History of gestational hypertension- Primary History of drug abuse ([facility]) Other, mixed, or unspecified nondependent drug abuse, in remission Late care ([facility]) Insufficient care Encounter for supervision of high risk in second trimester, antepartum ([facility]) Vapes nicotine containing substance Generalized anxiety disorder 18 weeks gestation of ([facility]) state, incidental Dysuria Elevated blood pressure reading without diagnosis of hypertension documented in this encounter [facility] note* Diagnosis History of IUFD- Primary Encounter for supervision of other normal in second trimester ([facility]) History of gestational hypertension History of drug abuse ([facility]) Other, mixed, or unspecified nondependent drug abuse, in remission 20 weeks gestation of ([facility]) state, incidental Obesity affecting in second trimester, unspecified obesity type ([facility]) Supervision of high risk in second trimester ([facility])- Primary Unspecified high-risk History of IUFD History of gestational hypertension 24 weeks gestation of (HCC) state, incidental Supervision of high risk in third trimester (HCC)- Primary Unspecified high-risk Antepartum anemia complicating in third trimester ([facility]) History of gestational hypertension History of IUFD Leg swelling in in third trimester ([facility]) Breech presentation with problem, single or unspecified fetus (HCC) 36 weeks gestation of (HCC) state, incidental Encounter for supervision of high risk in second trimester, antepartum ([facility])- Primary Chronic hypertension complicating or reason for care during childbirth ([facility]) Benign essential hypertension complicating , childbirth, and the puerperium, unspecified as to episode of care Late care ([facility]) Insufficient care History of gestational hypertension History of drug abuse ([facility]) Other, mixed, or unspecified nondependent drug abuse, in remission Vapes nicotine containing substance 20 weeks gestation of ([facility]) state, incidental * Assessment & Plan Note - Sarah Huber MD - 01/12/2025 10:10 AM EDTAssociated Problem(s): Encounter for supervision of high risk in second trimester, antepartum ([facility]) Orders: OBSTETRIC ULTRASOUND WHI; Standing * Assessment & Plan Note - Sarah Huber MD - 01/12/2025 10:10 AM EDTAssociated Problem(s): Chronic hypertension complicating or reason for care during childbirth ([facility]) Continue Labetalol 100mg tid Continue PO ASA [...] encounter [facility]* Diagnosis History of IUFD- Primary Encounter for supervision of other normal in second trimester ([facility]) History of gestational hypertension History of drug abuse ([facility]) Other, mixed, or unspecified nondependent drug abuse, in remission 20 weeks gestation of ([facility]) state, incidental Obesity affecting in second trimester, unspecified obesity type ([facility]) Supervision of high risk in second trimester ([facility])- Primary Unspecified high-risk History of IUFD History of gestational hypertension 24 weeks gestation of ([facility]) state, incidental Supervision of high risk in third trimester ([facility])- Primary Unspecified high-risk Antepartum anemia complicating in third trimester ([facility]) History of gestational hypertension History of IUFD Leg swelling in in third trimester ([facility]) Breech presentation with problem, single or unspecified fetus ([facility]) 36 weeks gestation of ([facility]) state, incidental Encounter for screening for malformation using ultrasound ([facility])- Primary 20 weeks gestation of ([facility]) state, incidental Encounter for supervision of high risk in second trimester, antepartum ([facility])- Primary Chronic hypertension complicating or reason for care during childbirth ([facility]) Benign essential hypertension complicating , childbirth, and the puerperium, unspecified as to episode of care Late care ([facility]) Insufficient care History of gestational hypertension History of drug abuse (HCC) Other, mixed, or unspecified nondependent drug abuse, in remission Vapes nicotine containing substance 20 weeks gestation of ([facility]) state, incidental documented in this encounter [facility]* Diagnosis History of IUFD- Primary Encounter for supervision of other normal in second trimester ([facility]) History of gestational hypertension History of drug abuse ([facility]) Other, mixed, or unspecified nondependent drug abuse, in remission 20 weeks gestation of ([facility]) state, incidental Obesity affecting in second trimester, unspecified obesity type ([facility]) Supervision of high risk in second trimester ([facility])- Primary Unspecified high-risk History of IUFD History of gestational hypertension 24 weeks gestation of ([facility]) state, incidental Supervision of high risk in third trimester ([facility])- Primary Unspecified high-risk Antepartum anemia complicating in third trimester ([facility]) History of gestational hypertension History of IUFD Leg swelling in in third trimester ([facility]) Breech presentation with problem, single or unspecified fetus ([facility]) 36 weeks gestation of ([facility]) state, incidental Encounter for supervision of high risk in second trimester, antepartum ([facility])- Primary Chronic hypertension complicating or reason for care during childbirth ([facility]) Benign essential hypertension complicating , childbirth, and the puerperium, unspecified as to episode of care Late care ([facility]) Insufficient care History of gestational hypertension History of drug abuse ([facility]) Other, mixed, or unspecified nondependent drug abuse, in remission Vapes nicotine containing substance 20 weeks gestation of ([facility]) state, incidental Encounter for supervision of high risk in second trimester, antepartum ([facility])- Primary Chronic hypertension complicating or reason for care during childbirth ([facility]) Benign essential hypertension complicating , childbirth, and the puerperium, unspecified as to episode of care Late care ([facility]) Insufficient care 24 weeks gestation of ([facility]) state, incidental Nicotine use Heartburn during in second trimester (HCC) Iron deficiency anemia secondary to inadequate dietary iron intake Screening for diabetes mellitus documented in this encounter [facility]* Diagnosis Onset Date Resolution Status Admit Date 33 weeks gestation of acute April 18 1:00pm [facility] Work Phone: Hospital Discharge instructionsWChillic[facility] Work Phone: Hospital Discharge instructionsAmbulatory Orders* ON- CALL NEEDED: Notify [facility] - Doppler Study Ordered Location: None Selected Additional Instructions You will be called tomorrow to come in for venous ultrasound of your leg. This will ensure there is no evidence of a blood clot. Please use Tylenol as needed for pain.[facility] Work Phone: Hospital Discharge instructionsWChillicothe [facility] Work Phone: Hospital Discharge instructions Additional Instructions Follow-up with your PCP, return for any worsening of your symptoms. You can take llbm-krj-usvxfyn cold and flu medications. Stay well-hydrated. Try [...] day 10 you may resume life is normal.[facility] Work Phone: Hospital Discharge instructions Additional Instructions Please ensure that you drink enough water. Please return here for any worsening symptomsWChillicothe VA [facility] Center Work Phone: Hospital Discharge instructions Additional Instructions [...] follow-up with your doctor to have it reevaluated.[facility] Work Phone: Hospital Discharge instructions Additional [...] care physician for further outpatient evaluation and management.[facility] Work Phone: Hospital Discharge instructions Additional [...] handout/resources provided) for further outpatient evaluation and management.[facility] Work Phone: Hospital Discharge instructions Additional [...] please return to the ER for repeat evaluation.[facility] Work Phone: Hospital Discharge instructions Additional Instructions heart rate 154 on bedside ultrasound. Your abdominal labs were normal. Your urine results were pending however you needed to leave before results. No urinary symptoms. Keep your follow-up with your OB team.[facility] Work Phone: Hospital Discharge instructionsAdditional Instructions Follow up with your family doctor and CDC ASSOCIATE. You may take keve-ajs-llhprsq decongestant such as Tylenol Cold and flu or Mucinex DM. You been given a prescription for Mucinex DM. You may also use Flonase which is available jlib-snt-mewawaf. Use as directed do not use for more than 3 days because of the increased risk of rebound congestion. If you have worsening symptoms, fever or difficulty breathing please return to the emergency room.[facility] Work Phone: Hospital Discharge instructionsAdditional Instructions Partial weightbearing on your left ankle. Wear your Aircast. You may remove it for bathing or sleeping. Use your crutches for stability and ambulating. Tylenol as needed for pain. Do not take any NSAIDs. Elevate your left lower extremity when possible.[facility] Work Phone: Reason for referral (narrative)* Diagnostic Procedure Only (Routine) - Authorized Specialty Diagnoses / Procedures Referred By Nina t Referred To Contact [facility] Diagnoses 6 weeks gestation of Procedures NUCHAL TRANSLUCENCY WHI US NUCHAL TRANSLUCENCY 1ST GESTATION Sharda Valero APRN.CNP [address] [place] [address] [facility] [place] [address] Referral ID Status Reason Start Date Expiration Date Visits Requested Visits Authorized [id number] Authorized Auto-Generat ed Referral 11/13/2023 11/12/2024 1 1 [facility] for referral (narrative)* Diagnostic Procedure Only (Routine) - New Request Specialty Diagnoses / Procedures Referred By Nina salazar Referred To Contact [facility] Diagnoses History of IUFD Procedures OBSTETRIC ULTRASOUND WHI US PREG UTERUS AFTER 1ST TRIMEST GESTATION Jeanette Patel MD [address] [place] [address] [facility] [place] [address] Referral ID Status Reason Start Date Expiration Date Visits Requested Visits Authorized [id number] New Request Auto-Generat ed Referral 02/17/2024 02/16/2025 2 1 [facility] for referral (narrative)* Diagnostic Procedure Only (Routine) - New Request Specialty Diagnoses / Procedures Referred By Contac t Referred To Contact [facility] Diagnoses Supervision of other high risk pregnancies, third trimester Polyhydramnios in third trimester complication, single or unspecified fetus History of IUFD Procedures OBSTETRIC ULTRASOUND WHI US PREG UTERUS AFTER 1ST TRIMEST GESTATION Jt Lugo MD [address] [place] [address] [address] Referral ID Status Reason Start Date Expiration Date Visits Requested Visits Authorized [id number] New Request Auto-Generat ed Referral 04/14/2025 3 1 [facility] for referral (narrative)* Outpatient Procedure (Routine) - New Request Specialty Diagnoses / Procedures Referred By Contac t Referred To Contact [facility] Diagnoses History of IUFD Procedures NON-STRESS TEST NON-STRESS TEST Margarita Alcala MD [address] [place] [address] [address] Referral ID Status Reason Start Date Expiration Date Visits Requested Visits Authorized [id number] New Request Auto-Generat ed Referral 04/28/2024 04/28/2025 1 1 [facility] for referral (narrative)* Outpatient Procedure (Routine) - Authorized Specialty Diagnoses / Procedures Referred By Contac t Referred To Contact [facility] Diagnoses Encounter for other general counseling or advice on contraception Procedures INSERT INTRAUTERINE DEVICE LEVONORGESTREL IU 52MG 5 YR INSERT INTRAUTERINE DEVICE Sharda Valero APRN.KAITLYNN [address] [place] [address] [address] Referral ID Status Reason Start Date Expiration Date Visits Requested Visits Authorized [id number] Authorized Auto-Generat ed Referral 07/29/2024 07/29/2025 1 1 [facility]No reason for referral information [facility]: Chief Complaint and Reason [...] 2025 10:34am CONGESTION March 10, 2025 12:30pm Chief Complaint Admit Date [facility].. ONLY DID BA T January 28, 2025 10:34am CONGESTION March 10, 2025 12:30pm Ankle injury April 09, 2025 4 :10pm R/O LABOR April 18, 2025 1 :00pm Reason for Visit Admit Date 33 weeks gestation of April 18, 2025 1:00pm Advance Directives No Advanced Directives Records Found Advance Directive Response Recorded Date/ Time Advance Directives No June 30, 2016 6:49pm Living Will No September 13, 2021 11:23am Power of Office Automation Technician No September 13 11:23am Advance Directive Response Recorded Date/ Time Advance Directives No June 30, 2016 6:49pm Living Will No December 22, 2021 9 :23pm Power of Office Automation Technician No December 22, 2021 9:23pm Advance Directive Response Recorded Date/ Time Advance Directives No June 30, 2016 6:49pm Living Will No February 20 5:12pm Power of Office Automation Technician No February 20 022 5:12pm Advance Directive Response Recorded Date/ Time Advance Directives No June 30, 2016 5:49pm Living Will No February 20 4:12pm Power of Office Automation Technician No February 20 4:12pm Advance Directive Response Recorded Date/ Time Advance Directives No June 30, 2016 6:49pm Living Will No January 08, 2023 3:14pm Power of Office Automation Technician No January 08 3:14pm Advance Directive Response Recorded Date/ Time Advance Directives No June 30, 2016 6:49pm Living Will No February 24, 2 023 4:26pm Power of Office Automation Technician No February 24, 2023 4:26pm Advance Directive Response Recorded Date/ Time Advance Directives No June 30, 2016 5:49pm Living Will No February 24, 2 023 3:26pm Power of Office Automation Technician No February 24, 2023 3:26pm Advance Directive Response Recorded Date/ Time Advance Directives No June 30, 2016 5:49pm Living Will No May 11, 2 023 5:41pm Power of Office Automation Technician No May 11, 2023 5:41pm Advance Directive Response Recorded Date/ Time Advance Directives No June 30, 2016 5:49pm Living Will No June 10, 2 023 12:08pm Power of Office Automation Technician No June 10, 2023 12:08pm Advance Directive Response Recorded Date/ Time Advance Directives No June 30, 2016 5:49pm Living Will No July 17 4:36pm Power of Office Automation Technician No July 17, 2023 4:36pm Advance Directive Response Recorded Date/ Time Advance Directives No June 30, 2016 5:49pm Living Will No August 10 10:41am Power of Office Automation Technician No August 10, 2023 10:41am Advance Directive Response Recorded Date/ Time Living Will No October 02, 2024 10:46pm Do you have a Healthcare Power of Office Automation Technician? No October 02, 2024 10:46pm Living Will No June 17 4:41pm Do you have a Healthcare Power of Office Automation Technician? No June 17, 2024 4:41pm Advance Directives No June 30, 2016 6:49pm Advance Directive Response Recorded Date/ Time Living Will No October 02, 2024 10:46pm Do you have a Healthcare Power of Office Automation Technician? No October 02, 2024 10:46pm Living Will No June 17 4:41pm Do you have a Healthcare Power of Office Automation Technician? No June 17, 2024 4:41pm Living Will No October 11, 2024 11:41pm Do you have a Healthcare Power of Office Automation Technician? No October 11, 2024 11:41pm Advance Directives No June 30, 2016 6:49pm Advance Directive Response Recorded Date/ Time Living Will No October 02, 2024 10:46pm Do you have a Healthcare Power of Office Automation Technician? No October 02, 2024 10:46pm Living Will No October 11, 2024 11:41pm Do you have a Healthcare Power of Office Automation Technician? No October 11, 2024 11:41pm Advance Directives No June 30, 2016 6:49pm Advance Directive Response Recorded Date/ Time Living Will No October 02, 2024 10:46pm Do you have a Healthcare Power of Office Automation Technician? No October 02, 2024 10:46pm Living Will No October 11, 2024 11:41pm Do you have a Healthcare Power of Office Automation Technician? No October 11, 2024 11:41pm Do you have a Healthcare Power of Office Automation Technician? No December 11, 2024 2:19pm Advance Directives No June 30, 2016 6:49pm Advance Directive Response Recorded Date/ Time Advance Directives No January 28 10:32am Living Will No October 02, 2024 10:46pm Do you have a Healthcare Power of Office Automation Technician? No October 02, 2024 10:46pm Living Will No October 11, 2024 11:41pm Do you have a Healthcare Power of Office Automation Technician? No October 11, 2024 11:41pm Do you have a Healthcare Power of Office Automation Technician? No December 11, 2024 2:19pm Advance Directive Response Recorded Date/ Time Advance Directives No January 28, 025 10:32am Living Will No October 11, 2024 11:41pm Do you have a Healthcare Power of Office Automation Technician? No October 11, 2024 11:41pm Do you have a Healthcare Power of Office Automation Technician? No December 11, 2024 2:19pm Advance Directive Response Recorded Date/ Time Advance Directives No January 28 10:32am Do you have a Healthcare Power of Office Automation Technician? No December 11, 2024 2:19pm Advance Directive Response Recorded Date/ Time Advance Directives No January 28 10:32am Do you have a Healthcare Power of Office Automation Technician? No March 10, 2025 12:47pm Do you have a Healthcare Power of Office Automation Technician? No December 11, 2024 2:19pm Advance Directive Response Recorded Date/ Time Advance Directives No January 28 9:32am Do you have a Healthcare Power of Office Automation Technician? No March 10, 2025 11:47am Do you have a Healthcare Power of Office Automation Technician? No April 09, 2025 4:15pm Health Concerns Infection Onset Date Last Indicated Resolved Time COVID-19 Rule-Out 06/07/2022 06/07/2022 Reason for Referral Specialty Diagnoses / Procedures Referred By Nina salazar Referred To Contact Diagnoses History of IUFD Procedures CONSULT TO MATERNAL MEDI OFFICE/OUTPATIENT NEW HIGH MDM 60 MINUTES Jeanette Patel MD [address] [place] [address] Referral ID Status Reason Start Date Expiration Date Visits Requested Visits Authorized [id number] Authorized PCP Requested Referral Auto-Generate d Referral 01/01/2024 12/31/2024 1 1 Specialty Diagnoses / Procedures Referred By Nina salazar Referred To Contact [facility] Diagnoses Encounter for supervision of other normal in second trimester History of IUFD Procedures OBSTETRIC ULTRASOUND WHI US PREG UTERUS AFTER 1ST TRIMEST GESTATION Jeanette Patel MD [address] [place] [address] [facility] [address] [place] [address] Referral ID Status Reason Start Date Expiration Date Visits Requested Visits Authorized [id number] Authorized Auto-Generat ed Referral 01/01/2024 12/31/2024 1 [...] abuse patient.[facility] ShawIn the event this information is protected by the Federal Confidentiality of Alcohol and Drug Abuse Patient Records regulations: The Federal rules restrict any use of the information to criminally investigate or prosecute any alcohol or drug abuse patient.[facility] ShawIn the event this information is protected by the Federal Confidentiality of Alcohol and Drug Abuse Patient Records regulations: The Federal rules restrict any use of the information to criminally investigate or prosecute any alcohol or drug abuse patient.[facility] ShawIn the event this information is protected by the Federal Confidentiality of Alcohol and Drug Abuse Patient Records regulations: The Federal rules restrict any use of the information to criminally investigate or prosecute any alcohol or drug abuse patient.[facility] ShawIn the event this information is protected by the Federal Confidentiality of Alcohol and Drug Abuse Patient Records regulations: The Federal rules restrict any use of the information to criminally investigate or prosecute any alcohol or drug abuse patient.[facility] ShawIn the event this information is protected by the Federal Confidentiality of Alcohol and Drug Abuse Patient Records regulations: The Federal rules restrict any use of the information to criminally investigate or prosecute any alcohol or drug abuse patient.[facility] ShawIn the event this information is protected by the Federal Confidentiality of Alcohol and Drug Abuse Patient Records regulations: The Federal rules restrict any use of the information to criminally investigate or prosecute any alcohol or drug abuse patient.[facility] ShawIn the event this information is protected by the Federal Confidentiality of Alcohol and Drug Abuse Patient Records regulations: The Federal rules restrict any use of the information to criminally investigate or prosecute any alcohol or drug abuse patient.[facility] ShawIn the event this information is protected by the Federal Confidentiality of Alcohol and Drug Abuse Patient Records regulations: The Federal rules restrict any use of the information to criminally investigate or prosecute any alcohol or drug abuse patient.[facility] ShawIn the event this information is protected by the Federal Confidentiality of Alcohol and Drug Abuse Patient Records regulations: The Federal rules restrict any use of the information to criminally investigate or prosecute any alcohol or drug abuse patient.[facility] ShawIn the event this information is protected by the Federal Confidentiality of Alcohol and Drug Abuse Patient Records regulations: The Federal rules restrict any use of the information to criminally investigate or prosecute any alcohol or drug abuse patient.[facility] ShawIn the event this information is protected by the Federal Confidentiality of Alcohol and Drug Abuse Patient Records regulations: The Federal rules restrict any use of the information to criminally investigate or prosecute any alcohol or drug abuse patient.[facility] ShawIn the event this information is protected by the Federal Confidentiality of Alcohol and Drug Abuse Patient Records regulations: The Federal rules restrict any use of the information to criminally investigate or prosecute any alcohol or drug abuse patient.[facility] ShawIn the event this information is protected by the Federal Confidentiality of Alcohol and Drug Abuse Patient Records regulations: The Federal rules restrict any use of the information to criminally investigate or prosecute any alcohol or drug abuse patient.[facility] ShawIn the event this information is protected by the Federal Confidentiality of Alcohol and Drug Abuse Patient Records regulations: The Federal rules restrict any use of the information to criminally investigate or prosecute any alcohol or drug abuse patient.[facility] ShawIn the event this information is protected by the Federal Confidentiality of Alcohol and Drug Abuse Patient Records regulations: The Federal rules restrict any use of the information to criminally investigate or prosecute any alcohol or drug abuse patient.[facility] ShawIn the event this information is protected by the Federal Confidentiality of Alcohol and Drug Abuse Patient Records regulations: The Federal rules restrict any use of the information to criminally investigate or prosecute any alcohol or drug abuse patient.[facility] ShawIn the event this information is protected by the Federal Confidentiality of Alcohol and Drug Abuse Patient Records regulations: The Federal rules restrict any use of the information to criminally investigate or prosecute any alcohol or drug abuse patient.[facility] ShawIn the event this information is protected by the Federal Confidentiality of Alcohol and Drug Abuse Patient Records regulations: The Federal rules restrict any use of the information to criminally investigate or prosecute any alcohol or drug abuse patient.[facility] ShawIn the event this information is protected by the Federal Confidentiality of Alcohol and Drug Abuse Patient Records regulations: The Federal rules restrict any use of the information to criminally investigate or prosecute any alcohol or drug abuse patient.[facility] ShawIn the event this information is protected by the Federal Confidentiality of Alcohol and Drug Abuse Patient Records regulations: The Federal rules restrict any use of the information to criminally investigate or prosecute any alcohol or drug abuse patient.[facility] ShawIn the event this information is protected by the Federal Confidentiality of Alcohol and Drug Abuse Patient Records regulations: The Federal rules restrict any use of the information to criminally investigate or prosecute any alcohol or drug abuse patient.[facility] ShawIn the event this information is protected by the Federal Confidentiality of Alcohol and Drug Abuse Patient Records regulations: The Federal rules restrict any use of the information to criminally investigate or prosecute any alcohol or drug abuse patient.[facility] ShawIn the event this information is protected by the Federal Confidentiality of Alcohol and Drug Abuse Patient Records regulations: The Federal rules restrict any use of the information to criminally investigate or prosecute any alcohol or drug abuse patient.[facility] ShawIn the event this information is protected by the Federal Confidentiality of Alcohol and Drug Abuse Patient Records regulations: The Federal rules restrict any use of the information to criminally investigate or prosecute any alcohol or drug abuse patient.[facility] ShawIn the event this information is protected by the Federal Confidentiality of Alcohol and Drug Abuse Patient Records regulations: The Federal rules restrict any use of the information to criminally investigate or prosecute any alcohol or drug abuse patient.[facility] ShawIn the event this information is protected by the Federal Confidentiality of Alcohol and Drug Abuse Patient Records regulations: The Federal rules restrict any use of the information to criminally investigate or prosecute any alcohol or drug abuse patient.[facility] ShawIn the event this information is protected by the Federal Confidentiality of Alcohol and Drug Abuse Patient Records regulations: The Federal rules restrict any use of the information to criminally investigate or prosecute any alcohol or drug abuse patient.[facility] ShawIn the event this information is protected by the Federal Confidentiality of Alcohol and Drug Abuse Patient Records regulations: The Federal rules restrict any use of the information to criminally investigate or prosecute any alcohol or drug abuse patient.[facility] ShawIn the event this information is protected by the Federal Confidentiality of Alcohol and Drug Abuse Patient Records regulations: The Federal rules restrict any use of the information to criminally investigate or prosecute any alcohol or drug abuse patient.[facility] ShawIn the event this information is protected by the Federal Confidentiality of Alcohol and Drug Abuse Patient Records regulations: The Federal rules restrict any use of the information to criminally investigate or prosecute any alcohol or drug abuse patient.[facility] ShawIn the event this information is protected by the Federal Confidentiality of Alcohol and Drug Abuse Patient Records regulations: The Federal rules restrict any use of the information to criminally investigate or prosecute any alcohol or drug abuse patient.[facility] ShawIn the event this information is protected by the Federal Confidentiality of Alcohol and Drug Abuse Patient Records regulations: The Federal rules restrict any use of the information to criminally investigate or prosecute any alcohol or drug abuse patient.[facility] ShawIn the event this information is protected by the Federal Confidentiality of Alcohol and Drug Abuse Patient Records regulations: The Federal rules restrict any use of the information to criminally investigate or prosecute any alcohol or drug abuse patient.[facility] ShawIn the event this information is protected by the Federal Confidentiality of Alcohol and Drug Abuse Patient Records regulations: The Federal rules restrict any use of the information to criminally investigate or prosecute any alcohol or drug abuse patient.[facility] ShawIn the event this information is protected by the Federal Confidentiality of Alcohol and Drug Abuse Patient Records regulations: The Federal rules restrict any use of the information to criminally investigate or prosecute any alcohol or drug abuse patient.[facility] ShawIn the event this information is protected by the Federal Confidentiality of Alcohol and Drug Abuse Patient Records regulations: The Federal rules restrict any use of the information to criminally investigate or prosecute any alcohol or drug abuse patient.[facility] ShawIn the event this information is protected by the Federal Confidentiality of Alcohol and Drug Abuse Patient Records regulations: The Federal rules restrict any use of the information to criminally investigate or prosecute any alcohol or drug abuse patient.[facility] ShawIn the event this information is protected by the Federal Confidentiality of Alcohol and Drug Abuse Patient Records regulations: The Federal rules restrict any use of the information to criminally investigate or prosecute any alcohol or drug abuse patient.[facility] ShawIn the event this information is protected by the Federal Confidentiality of Alcohol and Drug Abuse Patient Records regulations: The Federal rules restrict any use of the information to criminally investigate or prosecute any alcohol or drug abuse patient.[facility] ShawIn the event this information is protected by the Federal Confidentiality of Alcohol and Drug Abuse Patient Records regulations: The Federal rules restrict any use of the information to criminally investigate or prosecute any alcohol or drug abuse patient.[facility] ShawIn the event this information is protected by the Federal Confidentiality of Alcohol and Drug Abuse Patient Records regulations: The Federal rules restrict any use of the information to criminally investigate or prosecute any alcohol or drug abuse patient.[facility] ShawIn the event this information is protected by the Federal Confidentiality of Alcohol and Drug Abuse Patient Records regulations: The Federal rules restrict any use of the information to criminally investigate or prosecute any alcohol or drug abuse patient.[facility] ShawIn the event this information is protected by the Federal Confidentiality of Alcohol and Drug Abuse Patient Records regulations: The Federal rules restrict any use of the information to criminally investigate or prosecute any alcohol or drug abuse patient.[facility] ShawIn the event this information is protected by the Federal Confidentiality of Alcohol and Drug Abuse Patient Records regulations: The Federal rules restrict any use of the information to criminally investigate or prosecute any alcohol or drug abuse patient.[facility] ShawIn the event this information is protected by the Federal Confidentiality of Alcohol and Drug Abuse Patient Records regulations: The Federal rules restrict any use of the information to criminally investigate or prosecute any alcohol or drug abuse patient.[facility] ShawIn the event this information is protected by the Federal Confidentiality of Alcohol and Drug Abuse Patient Records regulations: The Federal rules restrict any use of the information to criminally investigate or prosecute any alcohol or drug abuse patient.[facility] ShawIn the event this information is protected by the Federal Confidentiality of Alcohol and Drug Abuse Patient Records regulations: The Federal rules restrict any use of the information to criminally investigate or prosecute any alcohol or drug abuse patient.[facility] [facility] the event this information is protected by the Federal Confidentiality of Alcohol and Drug Abuse Patient Records regulations: The Federal rules restrict any use of the information to criminally investigate or prosecute any alcohol or drug abuse patient.[facility] the event this information is protected by the Federal Confidentiality of Alcohol and Drug Abuse Patient Records regulations: The Federal rules restrict any use of the information to criminally investigate or prosecute any alcohol or drug abuse patient.[facility] the event this information is protected by the Federal Confidentiality of Alcohol and Drug Abuse Patient Records regulations: The Federal rules restrict any use of the information to criminally investigate or prosecute any alcohol or drug abuse patient.[facility] the event this information is protected by the Federal Confidentiality of Alcohol and Drug Abuse Patient Records regulations: The Federal rules restrict any use of the information to criminally investigate or prosecute any alcohol or drug abuse patient.[facility] Reason for Visit (unrecogniz ed section and content) Reason Comments Ear Pain Bilateral ear pain a nd HERNADEZ-exposed to flu Reason Comments Initial OB Visit Reason Comments PRAF Reason Comments OB N/V Reason Onset Date Comments Care 01/01/2024 Reason Comments US Specialty Diagnoses / Procedures Referred By Nina t Referred To Contact [facility] Diagnoses 6 weeks gestation of Procedures NUCHAL TRANSLUCENCY WHI US NUCHAL TRANSLUCENCY 1ST GESTATION Sharda Valero, ADONIS.KAITLYNN [address] [place] [address] [address] Referral ID Status Reason Start Date Expiration Date V isits Requested Visits Authorized [id number] Closed Auto-Generate d Referral 11/13/2023 11/12/2024 1 1 Reason Comments Consult Ordered by Dr. Patel Specialty Diagnoses / Procedures Referred By Nina t Referred To Contact [facility] Diagnoses Encounter for supervision of other normal in second trimester History of IUFD Procedures OBSTETRIC ULTRASOUND WHI US PREG UTERUS AFTER 1ST TRIMEST GESTATION Jeanette Patel MD [address] [place] [address] [facility] [address] [place] [id number] Referral ID Status Reason Start Date Expiration Date V isits Requested Visits Authorized [id number] Closed Auto-Generate d Referral 01/01/2024 12/31/2024 1 1 Reason Onset Date Comments Care 02/17/2024 Reason Onset Date Comments Care 03/17/2024 Pt reported inte rmittent bilateral swelling feet. Specialty Diagnoses / Procedures Referred By Nina t Referred To Contact [facility] Diagnoses History of IUFD Procedures OBSTETRIC ULTRASOUND WHI US PREG UTERUS AFTER 1ST TRIMEST GESTATION Jeanette Patel MD [address] [place] [address] [facility] [address] [place] [address] Referral ID Status Reason Start Date Expiration Date V isits Requested Visits Authorized [id number] Closed Auto-Generate d Referral 02/17/2024 02/16/2025 2 1 Reason Onset Date Comments Care 04/02/2024 Reason Onset Date Comments Care 04/14/2024 Reason Comments Opened In Error Reason Onset Date Comments Care 12/01/2023 Reason Comments OB Pain Reason Onset Date Comments Care 04/28/2024 Specialty Diagnoses / Procedures Referred By Nina salazar Referred To Contact [facility] Diagnoses Supervision of other high risk pregnancies, third trimester Polyhydramnios in third trimester complication, single or unspecified fetus History of IUFD Procedures OBSTETRIC ULTRASOUND WHI US PREG UTERUS AFTER 1ST TRIMEST GESTATION Jt Lugo MD [address] [place] [address] [facility] [address] [place] [address] Referral ID Status Reason Start Date Expiration Date Visits Requested Visits Authorized [id number] Authorized Auto-Generat ed Referral 06/22/2024 3 3 [...] 09/16/2024 Specialty Diagnoses / Procedures Referred By Nina salazar Referred To Contact [facility] Diagnoses Encounter for other general counseling or advice on contraception Procedures INSERT INTRAUTERINE DEVICE LEVONORGESTREL IU 52MG 5 YR INSERT INTRAUTERINE DEVICE Sharda Valero APRN.FACILITY OPERATIONS MANAGER [address] [place] [address] Phone: tel: fax: [address] [phone] Referral ID Status Reason Start Date Expiration Date V isits Requested Visits Authorized [id number] Closed Auto-Generate d Referral 07/29/2024 07/29/2025 1 1 Reason Onset Date Comments Results 08/06/2024 Reason Comments 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 Rug Maker - Other Initial OB RN Bruce saravia Reason Comments Headache Reason Onset Date Comments Care 12/31/2024 Reason Onset Date Comments Care 01/12/2025 Specialty Diagnoses / Procedures Referred By Contac t Referred To Contact [facility] Diagnoses with uncertain dates, antepartum (HCC) 13 weeks gestation of (HCC) Procedures OBSTETRIC ULTRASOUND WHI US PREG UTERUS AFTER 1ST TRIMEST GESTATION Johana Turner APRN.CNM [address] [place] [address] Phone: tel: fax: [address] [phone] Referral ID Status Reason Start Date Expiration Date V isits Requested Visits Authorized [id number] Closed Auto-Generate d Referral 11/18/2024 11/18/2025 1 [...] End: January 28, 2025 DARIO Patrick Attending physician Active St art: January 28, [...] 10, 2025 Dr. Mindy Jorge DO Emergency [facility] ent Physician Active Start: March 10, 2025 End: March 10, 2025 Team Status: Inactive Member Role/Relationship Status [...] March 10, 2025 Dr. Mindy Jorge DO Attending physician Active Start: March 10, 2025 End: March 10, 2025 Dr. Mindy Jorge DO Emergency Departm ent Physician Active Start: March 10, 2025 End: March 10, 2025 Team Status: Inactive Member Role/Relationship Status Dates Dr. David Mckinney MD Primary care physician Active Start: April 09, 2025 End: April 09, 2025 Torres Abraham MD Attending physician Active Sta rt: April 09, 2025 End: April 09, 2025 Torres Abraham MD Emergency Department Physician Activ e Start: April 09, 2025 End: April 09, 2025 Team Status: Inactive Member Role/Relationship Status Dates Dr. David Mckinney MD Primary care physician Active Start: April 18, 2025 End: April 18, 2025 Dr. Sarah Warner MD Attending physician Active Start: April 18, 2025 End: April 18, 2025 Dr. Sarah Warner MD Referring Provider Active Start: April 18, 2025 End: April 18, 2025 INFORMATION SOURCE (unrecogn ized section and content) DATE CREATED AUTHOR 04/24/2025 [facility] DATE CREATED AUTHOR AUTHOR'S ORGANIZ ATION 04/29/[address] [facility] FOR RECORDS PERTAINING TO PATIENTS WHO [...] BE BASED ON THE PRIMARY CLINICAL RECORDS. [employer] provides no warranty or guarantee of the accuracy or completeness of information in this document.
== END 2025-05-03 02:55 | disposition home or self-care (01) ==
PROVIDERS: Emergency Provider Emergency Medicine; PCP Family Medicine; Visit Provider Emergency Medicine
DX: O99.891 Other specified diseases and conditions complicating pregnancy (principal); Z87.891 Personal history of nicotine dependence; Z3A.37 37 weeks gestation of pregnancy; M79.604 Pain in right leg; M79.605 Pain in left leg
CPT/HCPCS: 93970; 99282

== ENCOUNTER → 2025-05-03 | Outpatient (CLI) | payer MEDICAID, SELFPAY ==
--- NOTE | 2025-05-03 13:07 | VDLE_ITS ---
Reason For Study Reason For Study: Bilateral leg pain RIGHT LEFT GSV is normal. GSV is normal. CFV is compressible, spontaneous, phasic, competent CFV is compressible, spontaneous, phasic, competent, and demonstrates normal augmentation. and demonstrates normal augmentation. FV is compressible, spontaneous, phasic, competent FV is compressible, spontaneous, phasic, competent and demonstrates normal augmentation. and demonstrates normal augmentation. POP V is compressible, spontaneous, phasic, competent POP V is compressible, spontaneous, phasic, competent and demonstrates normal augmentation. and demonstrates normal augmentation. T/P Trunk is compressible. T/P Trunk is compressible. PTV is compressible. PTV is compressible. RT PerV is compressible. LT PerV is compressible. Procedure This is a venous duplex using B-mode, color flow and spectral Doppler. Exam performed in department. A preliminary report was called and/or faxed to PCP: Dr. Mckinney and OBGYN: AUGUSTIN SKELTON. VL/Venous Duplex US - Giovanni Extrem Interpretation Summary Deep veins of the lower extremities are bilaterally patent and compressible seg mentally. There is no evidence of deep vein thrombosis on either side. Valvular competence appears intact within the p roximal deep venous systems bilaterally. The great saphenous veins appear bilaterally patent and compressible segmentall y. Ordering Physician: Rizwan Cárdenas Referring Physician: David Mckinney MD Performed By: Nazanin Laurent RVT
== END | disposition home or self-care (01) ==
LOC: CVS 13:06
PROVIDERS: PCP Family Medicine; Referring Provider Emergency Medicine; Visit Provider Emergency Medicine
DX: M79.605 Pain in left leg (principal); M79.604 Pain in right leg
CPT/HCPCS: 93970

== ENCOUNTER 2025-05-12 07:15 | Inpatient (IN) | payer MEDICAID, SELFPAY ==
[2025-05-12] VITALS (52 sets, daily range): BP systolic 118–144; BP diastolic 69–94; PULSE 66–88; RESP 16; TEMP 36.3–37.1; O2SAT 93–100; BMI 29.9
--- OUTSIDE RECORDS SUMMARY | 2025-05-12 07:37 | XMS RPT_ITS | CCD ---
Author Organization [facility] Care Team Providers Care Tnt Powder Worker Name Role Phone Dr. David Mckinney Primary Care Provider Dr. David Mckinney Referring Provider [phone] Lucila BISHOP, DARIO Munguia Attending Provider [...] [place] DO Attending Provider Dr. David Mciknney MD Referring Provider Kale Woo Attending Provider Hank TURNER Dr. David Primary Care Provider Hank TURNER, Dr. Hernandez Attending Provider [phone] Hank TURNER, Dr. Hernandez Primary Care Provider Dr. Rizwan Cárdenas DO Attending Provider Hank TURNER, Dr. Hernandez Primary Care Physician Yuki BECKER, Dr. Bethea Attending Physician [phone] Yuki BECKER, Dr. Bethea Emergency Department Physician Kale Woo Attending Physician Hank TURNER, Dr. Hernandez Attending Physician [phone] Mindy Jorge DO Emergency Department Physi pa Hank TURNER, Dr. Hernandez Primary Care Physician Hank TURNER, Dr. Hernandez Referring Provider [phone] Kale Woo Attending Physician Hank TURNER, Dr. Hernandez Attending Physician [phone] Mindy Jorge DO Attending Physician Dr. Mindy Jorge DO Emergency Department Physi pa Torres Abraham MD Attending Physician Torres Abraham MD Emergency Department Physician Dr. Sarah Warner MD Attending Physic laura Dr. Sarah Warner MD Referring Provid er Mckinney, David Primary Care Unavailable Rizwan Cárdenas Attending Unavailable [place] Attending Unavailable Mckinney, David Primary Care Unavailable Mckinney, David Primary Care Unavailable Sarah Warner Referring Unavail able Sarah Warner Attending Unavail able Kuldeep Vanegas Attending Unavailable Mckinney, David Primary Care Unavailable Mindy Jorge Attending Unavailable Mckinney, David Primary Care Unavailable Torres Abraham Attending Unavailable Mckinney, David Primary Care Unavailable Mckinney, David Primary Care Unavailable Marcela Connors Referring Unavailable Marcela Connors Attending Unavailable Plotts, Johana Referring Unavailable Plotts, Johana Attending Unavailable Plotts, Johana Admitting Unavailable Mckinney, David Primary Care Unavailable Mckinney, David Primary Care Unavailable Jeanette Patel Attending Unavailable Mckinney, David Primary Care Unavailable Rizwan Cárdenas Referring Unavailable AndRizwan daly Attending Unavailable Mckinney, David Referring Unavailable Mckinney, David Attending Unavailable Mckinney, David Primary Care Unavailable Mckinney, David Referring Unavailable Mckinney, David Attending Unavailable Mckinney, David Primary Care Unavailable Mckinney, David Primary Care Unavailable Germain Fabian Attending Unavailable Mckinney, David Primary Care Unavailable Rizwan Cárdenas Attending Unavailable AndNav dalyin Referring Unavailable Mckinney, David Primary Care Unavailable Rizwan Cárdenas Attending Unavailable Mckinney, David Referring Unavailable Kale Woo Attending Unavailable Mckinney, David Primary Care Unavailable SHARDA VALERO Attending Unavailable ANJUMSHARDA Referring Unavailable JT LUGO Referring Unavailable NEROJELIOT SOLOMON, SARAH Attending Unavail able SOY CASSIDY Attending Unavailable HAKEYON, HALLE Attending Unavailable JESS, MARGARITA Referring Unavailable HAURY, HALLE Referring Unavailable PARISH JT Shaun Referring Unavailable NEROJELIOT SOLOMON, SARAH Attending Unavail able PARISH JT Shaun Referring Unavailable JEANETTE PATEL Attending Unavailable HORTENCIA GOULD Unavailable SHELL VALEROEE Referring Unavailable WISEMMA SOY Referring Unavailable JORGE KARSAUL Referring Unavailable JESS, MARGARITA Referring Unavailable PLOTTS, JOHANA Referring Unavailable MALLORY ALCALAFER Attending Unavailable NEYHART SOLOMON, SARAH Referring Unavail able JT LUGO Attending Unavailable PARISH JT Shaun Referring Unavailable NEYHART SOLOMON, SARAH Referring Unavail able NEYHART SOLOMON, SARAH Referring Unavail able JEANETTE PATEL Attending Unavailable NEYHART SOLOMON, SARAH Referring Unavail able NEYHART SOLOMON, SARAH Attending Unavail able PLOTTS, JOHANA Referring Unavailable PARISH JT L Referring Unavailable NEYHART SOLOMON, SARAH Referring Unavail able PLOTTS, JOHANA Attending Unavailable NEYHART SOLOMON, SARAH Referring Unavail able PLOTTS, JOHANA Attending Unavailable PLOTTS, JOHANA Referring Unavailable HAURY, HALLE Referring Unavailable PLOTTS, JOHANA Attending Unavailable JT LUGO Referring Unavailable JEANETTE PATEL Attending Unavailable MARGARITA ALCALA Referring Unavailable Allergies Allergy Classification Reported Allergen(s) Allergy Type Date of Onset Reaction(s) Facility (20 sources) [place] silk preparation; Translations: [CORN] Drug Allergy 11-10-[address] [facility] (20 sources) Seasonal allergy; Translations: [SEASONAL ALLERGIES] Allergy to substance 11-10-[address] [facility] (20 sources) walnut allergenic extract; Translations: [WALNUT] Drug Allergy 11-10-[address] [facility] (9 sources) corn allergenic extract Drug Allergy 10-02-2024 Other [facility] Comment on above: intolerance (1 source) corn extract Drug Allergy 05-03-2025 [facility] Repository (1 source) walnut Drug allergy (disorder) 05-03-2025 [facility] Repository Medications Current Medications Medication Drug Class(es) Dates Sig (Normalized) Sig (Original) [id number] 200 actuat albuterol 0.09 mg/actuat metered dose [...] daily. 30 tablet 2 11/18/2024 Active PNV no.408-nkad-vchkjzq olate 29-1 mg tab (9 sources) Start: 11-18-2024 take 1 tablet by mouth once daily PNV no.733-qmat-agjjw lfolate 29-1 mg tab Indications: with uncertain dates, antepartum (HCC) , 12 weeks gestation of (HCC) Take 1 tablet by mouth once daily. 30 tablet 1 11/18/2024 Active Uqzjsdip-Ono-Xm-Fa ( + Iron) 1 mg Tablet (20 sources) Start: 09-13-2021 take 1 tablet by mouth once daily Ljltpvrk-Ssm-Lo-F a ( + Iron) 1 mg Tablet Active 1 TABLET PO DAILY September 13, 2021 11:23am Start: 09-13-2021 take 1 tablet by jennifer th once daily Wkibmysg-Rdk-Nj-Fa ( + Iron) 1 mg Tablet Active 1 TABLET PO DAILY September 12, 2021 11:00pm Start: 09-13-2021 take 1 tablet by jennifer th once daily Qvvcpmao-Blp-Fd-Fa ( + Iron) 1 mg Tablet Active 1 TABLET PO DAILY September 13, 2021 12:00am Dmvgvgfs-Dfz-Vr-Fa 1 mg Tablet (9 sources) Start: 09-13-2021 take 1 tablet by jennifer th once daily Start: 09-13-2021 take 1 tablet by jennifer th once daily Pfgxbozh-Olc-Go-Fa 1 mg Tablet Active 1 {tbl} PO DAILY September 13, 2021 12:00am Complies with drug therapy Start: 09-13-2021 take 1 tablet by jennifer th once daily Jijbvrxe-Xug-Zu-Fa 1 mg Tablet Active 1 {tbl} PO DAILY September 13, 2021 12:00am Start: 09-13-2021 take 1 tablet by jennifer th once daily Vmcrkosk-Ack-Dn-Fa 1 mg Tablet Active 1 {tbl} PO [...] 500 mg PO EVERY 6 HOURS 12 January 05, 2024 11:00pm May 20, 2024 [...] NMA INTRANASAL TWICE A DAY 16 14 0 March 09, 2025 11:00pm April 09, 2025 [...] Discontinued 100 mg PO EVERY 12 HOURS December 10, 2024 11:00pm April 09, 2025 [...] , third trimester] Onset: 04-13-2025 Episodic Other complications of (1 source) Supervision of high risk , unspecified, third trimester; Translations: [Encounter for supervision of high risk in third trimester, antepartum (HCC)] Onset: 05-04-2025 Episodic Other complications of (1 source) Supervision of with insufficient care, unspecified trimester; Translations: [Late care (HCC)] Onset: 02-09-2025 Episodic Other complications of (1 source) Other specified related conditions, second trimester; Translations: [Heartburn during in second trimester (HCC)] Onset: 02-09-2025 Episodic Other connective tissue disease (2 sources) Pain in right leg; Translations: [Pain in right leg] Onset: 05-03-2025 Episodic Other connective tissue disease (2 sources) Pain in left leg; Translations: [Pain in left leg] Onset: 05-03-2025 Episodic Other gastrointestinal disorders (1 source) Heartburn; [...] Onset: 11-18-2024 02-09-2025 Episodic Residual codes; unclassified (2 sources) Gestation period, 33 weeks; Translations: [33 weeks gestation of ] 04-18-2025 Episodic Residual codes; unclassified (1 source) 36 weeks gestation of ; Translations: [36 weeks gestation of ([facility])] Onset: 05-04-2025 Episodic Residual codes; unclassified (1 source) 33 weeks gestation of ; Translations: [33 weeks gestation of ([facility])] Onset: 04-14-2025 Episodic Residual codes; unclassified (1 source) 29 weeks gestation of ; Translations: [29 weeks gestation of ([facility])] Onset: 03-17-2025 Episodic Residual codes; unclassified (1 source) 24 weeks gestation of ; Translations: [24 weeks gestation of ([facility])] Onset: 02-09-2025 Episodic Residual codes; unclassified (2 sources) Tobacco use; Translations: [Nicotine use] Onset: 11-18-2024 Episodic Sprains and strains (20 sources) Strain [...] trimester] Onset: 10-05-2024 Episodic Other complications of (1 source) Supervision [...] Test Name Value Interpretation Reference Range Facility [facility] SHILPA HOANG ([id number]) 1995 F Date Time Provider Department 05/03/25 MARCELA CONNORS During your visit today, we recorded the following information about you: Margarita Hearn RN 05/03/2025 2:37 PM Signed [id number] Received Preliminary venous duplex results from [facility] Scan on 05/03/2025 1:43 PM by Provider, Ccf: Venous Duplex Bilateral at [facility] Jt Lugo MD 05/03/2025 3:08 PM Signed neg for DVT MD Hiram Harris Tara, RN 05/03/2025 3:20 PM Signed Pt notified and voiced understanding. Nicci Mckeon RN Allergies As of Date: 05/03/2025 Noted Allergy Reaction WALNUT 11/10/2023 10 - Anaphylaxis CORN 11/10/2023 5 - Intolerance SEASONAL ALLERGIES 11/10/2023 3 - Cough Date Reviewed: 04/14/2025 Reviewed by: Claudio Darden LPN - Fully Assessed Reason for Visit: Venous Duplex Results [Other] Prescriptions as of 05/03/2025 - labetalol (TRANDATE) 100 mg tablet Take [...] FOR NAUSEA and FOR VOMITING - PNV no.001-nbog-eaxequwtowj e 29-1 mg tab Take 1 tablet by mouth once daily. Problem List As Of Date 05/03/2025 Noted Resolved Supervision of high risk in [...] for sterilization [Z30.2] 03/17/2025 Encounter Status:Closed by NICCI MCKEON on 05/03/25 Normal [facility] Emergency Department Summary on 05-03-2025 Emergency Department Summary [facility] Medical Records Department [address] [place] [address] Emergency Department Summary 05/03/25 MR#: [id number] Acct: [id number] Name: SHILPA HOANG Rep #: [id number] : 1995 29 From: Rizwan Cárdenas DO PCP: Dr. David Mckinney MD Status:DEP ER Location: ED HPI History of Present Illness Chief Complaint: General Illness Informant: patient Narrative Narrative: Patient is a G2, P1 approximate 37 weeks . She was seen earlier today after an allergic reaction to cookie containing walnuts. She was given IV Solu-Medrol Benadryl and Pepcid and was doing better and discharged home. She states this evening she was sleeping and reports she was sleeping on her left side. She awoke with pain in the bilateral lower legs she states from the knee down. She reports that there has been no trauma or excessive activity. She denies any need to use epinephrine with an injection to either leg once she was discharged. She states has been no bouts of vomiting or diarrhea that would suggest dehydration. She also denies any vaginal bleeding or discharge. She states that she is unsure why she felt the discomfort and secondary to this comes in for evaluation. [facility] Medical History (spontaneous vaginal delivery) Depression Family history of hearing loss at age younger than 7 years Gestational HTN Stillborn, normal History of placental abruption Trauma depression Anxiety Cervical myofascial strain Home Medications ???Medication ???Instructions ???Recorded ???Last Taken ???Type aprememq-nhh-Cp-FA 1 mg 1 tab PO DAILY 09/13/21 05/01/25 History tablet acetaminophen 500 mg tablet 1,000 mg PO TID PRN PRN pain 05/0205/01/25 History albuterol sulfate 90 mcg/actuation 1 inh inhalation Q6H PRN shortne ss 05/02/25 Unknown History aerosol inhaler of breath or wheezing epinephrine 0.3 mg/0.3 mL 0.3 mg (0.3 mL) IM Q10M PRN PRN Unknown Rx injection, auto-injector (EpiPen anaphylaxis #2 ea 2-Hero) fluticasone propionate 50 1 spray intranasal BID 05/02/25 Un known History mcg/actuation nasal spray,suspension ondansetron 4 mg disintegrating 4 mg PO TID PRN PRN nausea/vomitin g 05/02/25 05/01/25 History tablet prednisone 20 mg tablet 60 mg (3 x 20 mg) PO DAILY #9 04/23 Unknown Rx TABLETS Allergy/AdvReac Type Severity Reaction Status Date / Time walnut (walnuts) Allergy Severe Swelling Verified 05/03/25 02:22 corn AdvReac Other Verified 05/03/25 02:22 Social History number of children: 2 Smoking Status: Former smoker alcohol intake: former 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 ROS ROS ED Constitutional Constitutional ED: Denies chills or fever(s) Eyes Eyes: Denies change in vision ENT ENT ED: Denies sore throat Cardiovascular Cardiovascular: Denies chest pain Respiratory/Chest Respiratory/Chest: Denies cough or dyspnea Gastrointestinal Gastrointestinal: Denies abdominal pain, diarrhea, nausea or vomiting Genitourinary Genitourinary ED: Reports other Details: Negative vaginal bleeding or discharge ; Denies dysuria Musculoskeletal Musculoskeletal: Reports other Details: Positive bilateral leg pain from knee down reported ; Denies back pain Integumentary Denies Abrasions or rash Neurologic Neurologic: Denies headache(s) or paresthesias Hematologic/Lymphatic Hematologic/Lymphatic: Denies easy bleeding or easy bruising Allergic/Immunologic Allergic/Immunologic ED: Denies mouth swelling or tongue swelling EXAM Physical Exam Const Vital Signs: 05/03/25 02:23 05/03/25 02:23 05/03/25 02:49 Temperature 98.5 F 98.5 F Temperature Source Oral Pulse Rate 78 86 Respiratory Rate 18 16 Respiratory Effort Normal Respiratory Pattern Normal Blood Pressure 135/80 H Blood Pressure Mean 98 Pulse Ox 100 98 Oxygen Delivery Method Room Air Positive well nourished and well developed General Appearance ED: well developed; Negative for pallor HEENT HEENT Narrative: Normocephalic atraumatic Eyes PERRL and EOMs intact bilaterally General Eye ED: Negative for scleral icterus Neck supple Resp normal respiratory effort and clear to auscultation bilaterally Cardio regular rate and regular rhythm Rate: other Other Details: Heart is regular rate and rhythm without murmurs rubs or gallops Radial and carotid pulses are equal and symmetric GI GI Narrative: Abdomen is gravid with fundus consistent with reported gestational age Back/Spine Back/Spine Narrative: No bony deformity or step-off of the thoracic or lumbar spine no midline tenderness to palpation (more content not included)... Normal [facility] Venous Duplex US - Giovanni [facility] 05-03-2025 Venous Duplex US - Giovanni Extrem [facility] Cardiovascular [facility] [address] [place] [address] Venous Duplex US - Giovanni Extrem 05/03/25 1322 MR#: [id number] Acct: [id number] Name: SHILPA HOANG Rep #: [id number] : 1995 29 From: Jake Shin MD Attending Dr: Rizwan Cárdenas DO Status: REG CLI Ordering Dr: Rizwan Cárdenas DO Date: 05/03/25 Location: CVS Sex: F C Admitted: Reason For Study Reason For Study: Bilateral leg pain RIGHT LEFT GSV is normal. GSV is normal. CFV is compressible, spontaneous, phasic, competent CFV is compressible, spontaneous, phasic, competent, and demonstrates normal augmentation. and demonstrates normal augmentation. FV is compressible, spontaneous, phasic, competent FV is compressible, spontaneous, phasic, competent and demonstrates normal augmentation. and demonstrates normal augmentation. POP V is compressible, spontaneous, phasic, competent POP V is compressible, spontaneous, phasic, competent and demonstrates normal augmentation. and demonstrates normal augmentation. T/P Trunk is compressible. T/P Trunk is compressible. PTV is compressible. PTV is compressible. RT PerV is compressible. LT PerV is compressible. Procedure This is a venous duplex using B-mode, color flow and spectral Doppler. Exam performed in department. A preliminary report was called and/or faxed to PCP: Dr. Mckinney and OBGYN: CCUyen OBKAYLA. VL/Venous Duplex US - Giovanni Extrem Interpretation Summary Deep veins of the lower extremities are bilaterally patent and compressible segmentally. There is no evidence of deep vein thrombosis on either side. Valvular competence appears intact within the proximal deep venous systems bilaterally. The great saphenous veins appear bilaterally patent and compressible segmentally. Ordering Physician: Rizwan Cárdenas Referring Physician: David Mckinney MD Performed By: Nazanin Laurent RVT 05/03/25 1740 Date Jake Shin MD CC: Dr. David Mckinney MD; Rizwan Cárdenas DO Date Dictated: 05/03/25 1322 Date Transcribed: 05/03/251739 Material Man: Signed Normal [facility] Emergency Department Summary on 05-02-2025 Emergency Department Summary [facility] Medical Records Department [address] [place] [address] Emergency Department Summary 05/02/25 MR#: [id number] Acct: [id number] Name: SHILPA HOANG Rep #: [id number] : 1995 29 From: Germain Fabian DO PCP: Dr. David Mckinney MD Status:DEP ER Location: ED HPI History of Present Illness Chief Complaint: Allergic Reaction Informant: patient and spouse/S.O. Narrative Narrative: 29-year-old female presenting to the emergency room with acute allergic reaction. 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 Just prior to arrival she ate a cookie that contained small amount of walnuts and began to experience hives. She was unable to find her EpiPen. She states she is 36 weeks . She denies vomiting or diarrhea. She denies wheezing. Patient is 36 weeks . She states that from a standpoint she is doing well. [facility] Medical History (spontaneous vaginal delivery) Depression Family history of hearing loss at age younger than 7 years Gestational HTN Stillborn, normal History of placental abruption Trauma depression Anxiety Cervical myofascial strain Home Medications ???Medication ???Instructions ???Recorded ???Last Taken ???Type xymbgrhh-uaf-Hn-FA 1 mg 1 tab PO DAILY 09/13/21 05/01/25 History tablet acetaminophen 500 mg tablet 1,000 mg PO TID PRN PRN pain 05/0205/01/25 History albuterol sulfate 90 mcg/actuation 1 inh inhalation Q6H PRN shortne ss 05/02/25 Unknown History aerosol inhaler of breath or wheezing epinephrine 0.3 mg/0.3 mL 0.3 mg (0.3 mL) IM Q10M PRN PRN Unknown Rx injection, auto-injector (EpiPen anaphylaxis #2 ea 2-Hero) fluticasone propionate 50 1 spray intranasal BID 05/02/25 Un known History mcg/actuation nasal spray,suspension ondansetron 4 mg disintegrating 4 mg PO TID PRN PRN nausea/vomitin g 05/02/25 05/01/25 History tablet prednisone 20 mg tablet 60 mg (3 x 20 mg) PO DAILY #9 04/23 Unknown Rx TABLETS Allergy/AdvReac Type Severity Reaction Status Date / Time walnut (walnuts) Allergy Severe Swelling Verified 05/02/25 17:04 corn AdvReac Other Verified 05/02/25 17:04 Social History number of children: 2 Smoking Status: Former smoker alcohol intake: former 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 ROS ROS ED Constitutional Constitutional ED: Denies chills, fever(s) or weight loss Eyes Eyes: Denies change in vision or diplopia ENT ENT ED: Denies ear pain, rhinorrhea or sore throat Cardiovascular Cardiovascular: Denies chest pain, orthopnea, palpitations or racing heartbeat Respiratory/Chest Respiratory/Chest: Denies cough, dyspnea or orthopnea Gastrointestinal Gastrointestinal: Denies abdominal pain, diarrhea, nausea or vomiting Genitourinary Genitourinary ED: Denies dysuria, hematuria or urinary frequency Musculoskeletal Musculoskeletal: Denies arthralgias or myalgias Integumentary Reports other Details: Hives ; Denies abscess or rash Neurologic Neurologic: Denies headache(s) or weakness Psychiatric Psychiatric: Denies anxiety, depression, suicidal ideation or suicidal thoughts Endocrine Endocrinology: Denies polydipsia, polyphagia or polyuria Allergic/Immunologic Allergic/Immunologic ED: Denies mouth swelling, tongue swelling or urticaria EXAM Physical Exam Const Vital Signs: 05/02/25 17:04 05/02/25 18:03 05/02/25 19:00 Temperature 97.1 F L Temperature Source Temporal Pulse Rate 79 72 74 Respiratory Rate 20 H 15 16 Blood Pressure 139/99 H 132/84 H 125/88 H Blood Pressure Mean 112 100 100 Pulse Ox 98 98 97 Oxygen Delivery Method Room Air Room Air 05/02/25 19:29 Temperature 98 F Temperature Source Pulse Rate 76 Respiratory Rate 16 Blood Pressure 129/88 H Blood Pressure Mean 101 Pulse Ox 98 Oxygen Delivery Method Positive well nourished and well developed General Appearance ED: well developed and NAD HEENT Reports normocephalic, head/scalp atraumatic and moist mucous membranes HEENT Narrative: There is no tongue lip or uvula swelling. Handling secretions normally Eyes PERRL and EOMs intact bilaterally Neck no lymphadenopathy, supple and no JVD Resp normal respiratory effort and clear to auscultation bilaterally Cardio regular rate, regular rhythm and no murmurs GI normal to inspection, nondistended, normoactive bowel sounds and non-tender GI Narrative: Gravid uterus Palpation: soft Back/Spine no CVA tenderness and normal ROM Extremity normal to inspection General Extremety ED: Negative for edema General Extrem (more content not included)... 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 [facility] During your visit today, we recorded [...] LPN - Fully Assessed Reason for Visit: [facility] [[id number]] Prescriptions as of 04/22/2025 - labetalol [...] FOR NAUSEA and FOR VOMITING - PNV no.066-cebg-dmjtryleftp e 29-1 mg tab Take 1 tablet [...] Status:Closed by CARLA MCKINNEY on 04/22/25 Normal [facility] Bilirubin Test strip Ql (U)O rdered By: Sarah Warner on 04-18-2025 Bilirubin Ql (U) Negative Negative [facility] Ketones Test strip Ql (U)Ord ered By: Sarah Warner on 04-18-2025 Ketones Ql (U) Negative Negative [facility] OB Triage Physician Noteon 1 OB Triage Physician Note [facility] Medical Records Department [address] [place] [address] OB Triage Physician Note 04/18/25 1310 MR#: [id number] Acct: [id number] Name: SHILPA HOANG Rep #: [id number] : 1995 29 From: Sarah Warner MD PCP: Dr. David Mckinney MD Status:REG CLI Y Location: XP992-0 HPI - General General Date of Service: [...] Medications ???Medication ???Instructions ???Recorded ???Last Taken ???Type auqzwqxy-ltt-Pw-FA 1 mg 1 tab PO DAILY 09/13/21 [...] 02/09/17 [place] 41 live - full term [id number] Female 18 epidural [facility] [place] 11/13/18 Uledi 39 live - full term 8lb2oz Female 13 epidural [facility] [place] Physical Exam Const alert and [...] MD; Dr. David Mckinney MD Signed Normal [facility] Protein Test strip Ql (U)Ord ered By: Sarah Warner on 04-18-2025 Protein Ql (U) Negative Negative [facility] Urinalysis, Routine (Dipstic k)on 04-18-2025 BILIRUBIN URINE Negative Normal Negative [facility] Comment on above: Order Comment: CLEAN CATCH Performed By: #### L 400.2010 #### [facility] Laboratory [address] [place], [address] GLUCOSE, UR Normal Normal Normal [facility] Comment on above: Order Comment: CLEAN CATCH Performed By: #### L 400.2010 #### [facility] [facility] [address] [place], [address] KETONE UR Negative Normal Negative [facility] Comment on above: Order Comment: CLEAN CATCH Performed By: #### L 400.2010 #### [facility] [address] [place], [address] LEUK ESTERASE 500 /ul Abnormal Negative [facility] Comment on above: Order Comment: CLEAN CATCH Performed By: #### L 400.2010 #### [facility] [address] [place], [address] OCCULT BLOOD-UR Negative Normal Negative [facility] Comment on above: Order Comment: CLEAN CATCH Performed By: #### L 400.2010 #### [facility] [address] [place], [address] pH UR 7.0 Normal 5.0 - 8.0 [facility] Comment on above: Order Comment: CLEAN CATCH Performed By: #### L 400.2010 #### [facility] [address] [place], [address] PROT DIPSTX Negative Normal Negative [facility] Comment on above: Order Comment: CLEAN CATCH Performed By: #### L 400.2010 #### [facility] [address] [place], [address] SP.GR. DIPSTX 1.005 Normal 1.002-1.030 [facility] Comment on above: Order Comment: CLEAN CATCH Performed By: #### L 400.2010 #### [facility] [address] [place], [place], [address] UROBILI 1 mg/dl Abnormal Normal [facility] Comment on above: Order Comment: CLEAN CATCH Performed By: #### L 400.2010 #### [facility] [address] [place], [place], [address] Urine clarityOrdered By: Neal on 04-18-2025 Clarity (U) Sl. Cloudy Normal Clear [facility] Comment on above: Order Comment: CLEAN CATCH Performed By: #### L 400.2010 #### [facility] [address] [place], [place], [address] Urine color determinationOrd ered By: Sarah Warner on 04-18-2025 Color (U) Yellow Normal Yellow [facility] Comment on above: Order Comment: CLEAN CATCH Performed By: #### L 400.2010 #### [facility] [address] [place], [place], [address] Urine glucose detectionOrder ed By: Sraah Warner on 04-18-2025 Glucose Ql (U) Normal mg/dl Normal [facility] Urine leukocyte esterase det ection by dipstickOrdered By: Sarah Solomon on 04-18-2025 Leukocyte esterase Test strip Ql (U) 500 /ul High Negative [facility] Urine nitrite test by dipsti ckOrdered By: Sarah Warner on 04-18-2025 Nitrite Ql (U) Negative Normal Negative [facility] Comment on above: Order Comment: CLEAN CATCH Performed By: #### L 400.2010 #### [facility] [address] [place], [place], [address] Urine pHOrdered By: Sarah Castro on 04-18-2025 pH (U) 7.0 [pH] 5.0 - 8.0 [facility] Urine specific gravity measu rementOrdered By: Sarah NeycasandraSolomon on 04-18-2025 Specific gravity (U) [Rel density] 1.005 1.002-1.030 [facility] Urine urobilinogen measureme ntOrdered By: Sarah KarintrevorSolomon on 04-18-2025 Urobilinogen Ql (U) 1 mg/dl High Normal [facility] Ankle min 3 Viewson 04-09-20 Ankle min 3 Views [facility] Services [address] [place] [address] Ankle min 3 Views MR#: [id number] Acct: [id number] Name: SHILPA HOANG Rep #: [id number] : 1995 F 29 From: Antoine York MD PCP: Dr. David Mckinney MD Status: [facility] ER Study: Ankle min 3 Views Date of Exam: 04/09/25 Exam# [id number] Ordering Dr: Torres Abraham MD PROCEDURE: LEFT [...] No acute fracture or dislocation. Reading Location: [id number] CC: Dr. Torres Abraham MD; Dr. David Mckinney MD Material Man: Signed Normal [facility] Emergency Department Summary on 04-09-2025 Emergency Department Summary [facility] Medical Records Department [address] [place] [address] Emergency Department Summary 04/09/25 MR#: [id number] Acct: [id number] Name: SHILPA HOANGN Rep #: [id number] : 1995 29 From: Torres Abraham MD [...] down to her foot. Denies other injuries. PFSH PFS Medical History (spontaneous vaginal delivery) Depression Family history of hearing loss at age younger than 7 years Gestational HTN Stillborn, normal History of placental abruption Trauma depression Anxiety Cervical myofascial strain Home Medications ???Medication ???Instructions ???Recorded ???Last Taken ???Type atvbyvwg-ywr-Ew-FA 1 mg 1 tab PO DAILY 09/13/21 [...] No acute fracture or dislocation. Reading Location: [facility] Knee X-Ray 04/09/25 17:40 IMPRESSION: No acute fracture or dislocation. Reading Location: [facility] Discharge Plan Triage Chief Complaint: Lower Extremity Injury ED Provider: Torres Abraham Dx/Rx/DC Orders Clinical Impression: Left ankle sprain, I (more content not included)... Normal [facility] Knee 1 or 2 Viewson 04-09-20 25 Knee 1 or 2 Views [facility] Imaging Services [address] [place] [address] Knee 1 or 2 Views MR#: [id number] Acct: [id number] Name: SHILPA HOANG Rep #: [id number] : 1995 F 29 From: Antoine York MD PCP: Dr. David Mckinney MD Status: [facility] ER Study: Knee 1 or 2 Views Date of Exam: 04/09/25 Exam# [id number] Ordering Dr: Torres Abraham MD PROCEDURE: LEFT [...] No acute fracture or dislocation. Reading Location: [id number] CC: Dr. Torres Abraham MD; Dr. David Mckinney MD Material Man: Signed Normal [facility] 03-31-2025 CNPN Telephone (OBGYWM) SHILPA HOANG ([id number]) 1995 F Date Time Provider Department 03/31/25 [...] tablet by mouth once daily. - PNV no.042-xlor-oasdllfugqb e 29-1 mg tab Take 1 tablet [...] 03-22-2025 Glucose [Mass/Vol] 112 mg/dL Normal 74-134 [facility] Comment on above: Order Comment: Speci men Type: BLOOD SPECIMENOrdering Facility: [facility] Address: [address] [place] [address] Result Comment: [facility] Congress of Obstetricians and Gynecologists (Jamel/Amber) guidelines state a gestational diabetes mellitus positive screen is made, in women not previously diagnosed with overt diabetes, when the 1 hr plasma glucose level is equal to or above 140 mg/dL. [facility] Lead Quality Control Technician and [facility] [place] recommends a 135 mg/dL cutoff. Performed By: #### G LTGST ####[facility] [id number] [place] [address] [place] Emergency Department Summary on 03-10-2025 Emergency Department Summary [facility] Medical Records Department [address] [place] [address] Emergency Department Summary 03/10/25 MR#: [id number] Acct: [id number] Name: SHILPA HOANG Rep #: [id number] : 1995 29 From: Mindy Jorge DO [...] good movement from the baby. 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 Been taking Tylenol for symptoms her last [...] Medications ???Medication ???Instructions ???Recorded ???Last Taken ???Type ztswsjdy-kuk-Vk-FA 1 mg 1 tab PO DAILY 09/13/21 [...] and non-diste (more content not included)... Normal [facility] Influenza virus A and B and SARS-CoV-2 (COVID-19) and Respiratory syncytial virus RNAOrdered By: Mindy Jorge on 03-10-2025 SARS-CoV-2 (COVID-19) RNA OFELIA+probe Ql (Unsp spec) [facility] SARS-CoV-2 (COVID-19) RNA OFELIA+probe Ql (Unsp spec) [facility] M100.678on 03-10-2025 M100.678 Normal Reference Ran ge = Negative GeneXpert Instrument, PCR method SARS-CoV-2 (COVID 19) Negative INFLUENZA A Negative INFLUENZA B Negative RSV PCR Negative Normal [facility] Comment on above: Performed By: #### L 100.0100, L501.9520, L500.4050, L503.6550 #### [facility] [address] [place], [address] CBC W Auto Differential pane l (Bld)on 02-10-2025 Basophils (Bld) [#/Vol] 0.05 10*3/uL Normal <0.11 [facility] Comment on above: Order Comment: Speci men Type: BLOOD SPECIMENOrdering Facility: [facility] Address: [address] [place] [address] Performed By: #### 5 7021-8 ####[facility] LABIA [id number] [place] [address] [place] Basophils/100 WBC (Bld) 0.4 % Normal [facility] Comment on above: Order Comment: Speci men Type: BLOOD SPECIMENOrdering Facility: [facility] Address: [address] [place] [address] Performed By: #### 5 7021-8 ####[facility] LABIA [id number] [place] [id number] [place] Differential cell count method Nom (Bld) Auto Normal [facility] Comment on above: Order Comment: Speci men Type: BLOOD SPECIMENOrdering Facility: [facility] Address: [address] [place] [address] Performed By: #### 5 7021-8 ####[facility] LABCLIA [id number] [place] [address] [place] Eosinophils (Bld) [#/Vol] 0.47 10*3/uL High <0.46 [facility] Comment on above: Order Comment: Speci men Type: BLOOD SPECIMENOrdering Facility: [facility] Address: [address] [place] [address] Performed By: #### 5 7021-8 ####[facility] LABCLIA [id number] [place] [address] [place] Eosinophils/100 WBC (Bld) 4.0 % Normal [facility] Comment on above: Order Comment: Speci men Type: BLOOD SPECIMENOrdering Facility: [facility] Address: [address] [place] [address] Performed By: #### 5 7021-8 ####[facility] LABCLIA [id number] [place] [address] [place] Erythrocyte distribution width (RBC) [Ratio] 14.9 % Normal 11.5-15.0 [facility] Comment on above: Order Comment: Speci men Type: BLOOD SPECIMENOrdering Facility: [facility] Address: [address] [place] [address] Performed By: #### 5 7021-8 ####[facility] LABCLIA [id number] [place] [address] [place] Hematocrit (Bld) [Volume fraction] 34.0 % Low 36.0-46.0 [facility] Comment on above: Order Comment: Speci men Type: BLOOD SPECIMENOrdering Facility: [facility] Address: [address] [place] [address] Performed By: #### 5 7021-8 ####[facility] LABCLIA [id number] [place] [address] [place] Hemoglobin (Bld) [Mass/Vol] 10.5 g/dL Low 11.5-15.5 [facility] Comment on above: Order Comment: Speci men Type: BLOOD SPECIMENOrdering Facility: [facility] Address: [address] [place] [address] Performed By: #### 5 7021-8 ####[facility] LABCLIA [id number] [place] [address] [place] Immature granulocytes (Bld) [#/Vol] 0.12 10*3/uL High <0.10 [facility] Comment on above: Order Comment: Speci men Type: BLOOD SPECIMENOrdering Facility: [facility] Address: [address] [place] [address] Performed By: #### 5 7021-8 ####[facility] LABIA [id number] [place] [address] [place] Immature granulocytes/100 WBC (Bld) 1.0 % Normal [facility] Comment on above: Order Comment: Speci men Type: BLOOD SPECIMENOrdering Facility: [facility] Address: [address] [place] [address] Performed By: #### 5 7021-8 ####[facility] LABCLIA [id number] [place] [address] [place] Lymphocytes (Bld) [#/Vol] 2.78 10*3/uL Normal 1.00-4.00 [facility] Comment on above: Order Comment: Speci men Type: BLOOD SPECIMENOrdering Facility: [facility] Address: [address] [place] [address] Performed By: #### 5 7021-8 ####[facility] LABCLIA [id number] [address] [place] Lymphocytes/100 WBC (Bld) 23.4 % Normal [facility] Comment on above: Order Comment: Speci men Type: BLOOD SPECIMENOrdering Facility: [facility] Address: [address] [place] [address] Performed By: #### 5 7021-8 ####[facility] LABCLIA [id number] [place] [address] [place] MCH (RBC) [Entitic mass] 27.0 pg Normal 26.0-34.0 [facility] Comment on above: Order Comment: Speci men Type: BLOOD SPECIMENOrdering Facility: [facility] Address: [address] [place] [address] Performed By: #### 5 7021-8 ####[facility] LABIA [id number] [address] [place] MCHC (RBC) [Mass/Vol] 30.9 g/dL Normal 30.5-36.0 [facility] Comment on above: Order Comment: Speci men Type: BLOOD SPECIMENOrdering Facility: [facility] Address: [address] [place] [address] Performed By: #### 5 7021-8 ####[facility] LABIA [id number] [place] [address] [place] MCV (RBC) [Entitic vol] 87.4 fL Normal 80.0-100.0 C [facility] Comment on above: Order Comment: Speci men Type: BLOOD SPECIMENOrdering Facility: [facility] Address: [address] [place] [address] Performed By: #### 5 7021-8 ####[facility] LABCLIA [id number] [place] [address] [place] Monocytes (Bld) [#/Vol] 0.86 10*3/uL Normal <0.87 [facility] Comment on above: Order Comment: Speci men Type: BLOOD SPECIMENOrdering Facility: [facility] Address: [address] [place] [address] Performed By: #### 5 7021-8 ####[facility] LABCLIA [id number] [address] [address] [place] Monocytes/100 WBC (Bld) 7.2 % Normal [facility] Comment on above: Order Comment: Speci men Type: BLOOD SPECIMENOrdering Facility: [facility] Address: [address] [place] [address] Performed By: #### 5 7021-8 ####[facility] LABCLIA [id number] [place] [address] [place] Neutrophils (Bld) [#/Vol] 7.61 10*3/uL High 1.45-7.50 [facility] Comment on above: Order Comment: Speci men Type: BLOOD SPECIMENOrdering Facility: [facility] Address: [address] [place] [address] Performed By: #### 5 7021-8 ####[facility] LABCLIA [id number] [address] [place] Neutrophils/100 WBC (Bld) 64.0 % Normal [facility] Comment on above: Order Comment: Speci men Type: BLOOD SPECIMENOrdering Facility: [facility] Address: [address] [place] [address] Performed By: #### 5 7021-8 ####[facility] LABCLIA [id number] [address] [address] [place] Nucleated RBC (Bld) [#/Vol] 10*3/uL Normal <0.01 [facility] Comment on above: Order Comment: Speci men Type: BLOOD SPECIMENOrdering Facility: [facility] Address: [address] [place] [address] Performed By: #### 5 7021-8 ####[facility] LABCLIA [id number] [place] [address] [place] Nucleated RBC/100 WBC (Bld) [Ratio] 0.0 /100 WBC Normal [facility] Comment on above: Order Comment: Speci men Type: BLOOD SPECIMENOrdering Facility: [facility] Address: [address] [place] [address] Performed By: #### 5 7021-8 ####[facility] LABIA [id number] [address], [place] [address] [place] Platelet mean volume (Bld) [Entitic vol] 12.4 fL Normal 9.0-12.7 [facility] Comment on above: Order Comment: Speci men Type: BLOOD SPECIMENOrdering Facility: [facility] Address: [address] [place] [address] Performed By: #### 5 7021-8 ####[facility] LABIA [id number] [place] [address] [place] Platelets (Bld) [#/Vol] 223 10*3/uL Normal 150-400 [facility] Comment on above: Order Comment: Speci men Type: BLOOD SPECIMENOrdering Facility: [facility] Address: [address] [place] [address] Performed By: #### 5 7021-8 ####[facility] LABIA [id number] [address], [place] [address] [place] RBC (Bld) [#/Vol] 3.89 10*6/uL Low 3.90-5.20 [facility] Comment on above: Order Comment: Speci men Type: BLOOD SPECIMENOrdering Facility: [facility] Address: [address] [place] [address] Performed By: #### 5 7021-8 ####[facility] LABCLIA [id number] [address] [place] [address] [place] WBC (Bld) [#/Vol] 11.89 10*3/uL High 3.70-11.00 [facility] Comment on above: Order Comment: Speci men Type: BLOOD SPECIMENOrdering Facility: [facility] Address: [address] [place] [address] Performed By: #### 5 7021-8 ####[facility] LABCLIA [id number] [address] [address] [place] Ferritin SerPl-mCncon 2024 Ferritin [Mass/Vol] 16.4 ng/mL Normal 14.7-205.1 [facility] Comment on above: Order Comment: Speci men Type: BLOOD SPECIMEN [facility] Address: [address] [place] [address] Performed By: #### 2 4323-8 #### [facility] [id number] [address] [place] [address] [place] Iron and Iron binding capaci ty panelon 02-10-2025 Iron [Mass/Vol] 60 ug/dL Normal 41-186 [facility] Comment on above: Order Comment: Speci men Type: BLOOD SPECIMEN [facility] Address: [address] [place] [address] Performed By: #### 2 4323-8 #### [facility] [id number] [address] [place] [address] [place] Iron binding capacity [Mass/Vol] >560 High 232-386 [facility] Comment on above: Order Comment: Speci men Type: BLOOD SPECIMEN [facility] Address: [address] [place] [address] Performed By: #### 2 4323-8 #### [facility] CLIA [id number] [address] [place] [address] [place] Iron/TIBC [Molar ratio] <10.7 Low 15.0-57.0 [facility] Comment on above: Order Comment: Speci men Type: BLOOD SPECIMEN [facility] Address: [address] [place] [address] Performed By: #### 2 4323-8 #### [facility] CLIA [id number] [address] [place] [address] [place] Reagin and Treponema pallidu m IgG and IgM [Interp]on 02-10-2025 T. pallidum IgG+IgM IA Ql (S) Non-Reactive Normal Nonreactive [facility] Comment on above: Order Comment: Speci men Type: BLOOD SPECIMEN [facility] Address: [address] [place] [address] Performed By: #### 2 4323-8 #### [facility] [id number] [address] [place] [address] [place] Reagin+T pallidum IgG+IgM Se rPl-Impon 02-10-2025 Reagin and Treponema pallidum IgG and IgM [Interp] Cannot exclude recent Treponemal infection if specimen collected within 7-10 days after appearance of suspect lesions or 2-3 weeks after an exposure. Clinical correlation is required. Normal [facility] Comment on above: Order Comment: Speci men Type: BLOOD SPECIMEN [facility] Address: [address] [place] [address] Performed By: #### 2 4323-8 #### [facility] [id number] [address] [place] [address] [place] URINE OB DIP B/Oon Glucose Ql (U) Negative Neg mg/dL [facility] Interpretation and review of laboratory results Normal [facility] Protein.monoclonal (U) [Mass/Vol] Negative Neg mg/dL [facility] Urine Cultureon 02-05-2025 URC Below infection leve l. Mixed Gram Positive Organisms [place] Count 1000-10,000 MIXC Mixed contaminants. Submit a new specimen if indicated. Normal [facility] Comment on above: Performed By: #### M 100.2200, L400.0001 #### [facility] [address] [place], [place], [address] Bilirubin Test strip Ql (U)O rdered By: David Mckinney on 02-03-2025 Bilirubin Ql (U) Negative Negative [facility] Ketones Test strip Ql (U)Ord ered By: David Mckinney on 02-03-2025 Ketones Ql (U) Negative Negative [facility] Microscopic analysis of urin e for red blood cells (RBC)Ordered By: David Mckinney on 02-03-2025 Microscopic analysis of urine for red blood cells (RBC) 0-5 SEEN /hpf 0-5 [facility] Mucus LM Ql (Urine sed)Order ed By: David Mckinney on 02-03-2025 Mucus Ql (Urine sed) 0 SEEN /hpf [facility] Nitrite Test strip Ql (U)Ord ered By: David Mckinney on 02-03-2025 Nitrite Ql (U) Negative Negative [facility] Protein Test strip Ql (U)Ord ered By: David Mckinney on 02-03-2025 Protein Ql (U) Negative Negative [facility] Squamous epithelial cells de tection in urine sediment by light microscopyOrdered By: David Mckinney on 02-03-2025 Epithelial cells.squamous LM Ql (Urine sed) 0-5 SEEN /hpf 5-10 [facility] Urinalysis, Completeon 02-03 EPI,SQUAMOUS 0-5 SEEN Normal 5-10 [facility] Comment on above: Order Comment: CLEAN CATCH Performed By: #### M 100.2200, L400.0001 #### [facility] [address] [place], [address] RBC 0-5 SEEN Normal 0-5 [facility] Comment on above: Order Comment: CLEAN CATCH Performed By: #### M 100.2200, L400.0001 #### [facility] [address] [place], [address] WBC 0-5 SEEN Normal 0-5 [facility] Comment on above: Order Comment: CLEAN CATCH Performed By: #### M 100.2200, L400.0001 #### [facility] [address] [place], [address] BACTERIA 0 SEEN Normal None Seen [facility] Comment on above: Order Comment: CLEAN CATCH Performed By: #### M 100.2200, L400.0001 #### [facility] [address] [place], [address] Mucus Ql (Urine sed) 0 SEEN Normal [facility] Comment on above: Order Comment: CLEAN CATCH Performed By: #### M 100.2200, L400.0001 #### [facility] [address] [place], [address] Urine clarityOrdered By: Maya Mckinney on 02-03-2025 Clarity (U) Clear Clear [facility] Urine color determinationOrd ered By: David Mckinney on 02-03-2025 Color (U) Yellow Yellow [facility] Urine cultureOrdered By: Maya Mckinney on 02-03-2025 Bacteria identified Cx Nom (U) Positive Abnormal [facility] Bacteria identified Cx Nom (U) Positive Abnormal [facility] [facility] Urine glucose detectionOrder ed By: David Mckinney on 02-03-2025 Glucose Ql (U) Normal mg/dl Normal [facility] Urine leukocyte esterase det ection by dipstickOrdered By: David Mckinney on 02-03-2025 Leukocyte esterase Test strip Ql (U) Negative Negative [facility] Urine pHOrdered By: David aviles on 02-03-2025 pH (U) 7.0 [pH] 5.0 - 8.0 [facility] Urine sediment bacteria coun t by microscopy (number/high power field)Ordered By: David Mckinney on 02-03-2025 Bacteria LM.HPF (Urine sed) [#/Area] 0 /[HPF] None Seen [facility] Urine specific gravity measu rementOrdered By: Davdi Mckinney on 02-03-2025 Specific gravity (U) [Rel density] 1.010 1.002-1.030 [facility] Urine urobilinogen measureme ntOrdered By: David Mckinney on 02-03-2025 Urobilinogen Ql (U) Normal mg/dl Normal [facility] White blood cell countOrdere d By: David Mckinney on 02-03-2025 White blood cell count 0-5 SEEN /hpf 0-5 [facility] Office Visit Reporton 2024 Office Visit Report [facility] [address] [place] [address] OFFICE VISIT Date of Service: 01/28/25 MR#: [id number] Acct: [id number] Patient: SHILPA HOANG Rep #: [id number] : 1995 Provider: DARIO Pizano Age/Sex: 29/F [place] [facility] Status: Signed Intake Vital Signs 12/11/24 13:47 [...] Cosigner Signature: Date (if applicable) CC: Normal [facility] Absolute lymphocyte countOrd ered By: David Mckinney on 02-01-2025 Lymphocytes Auto (Unsp spec) [#/Vol] 2.15 10*3/uL 0.83-4.51 [facility] Absolute neutrophil countOrd ered By: David Mckinney on 02-01-2025 Neutrophils (Bld) [#/Vol] 5.4 10*3/uL 2.0-7.7 [facility] Anion gap in Serum or Plasma Ordered By: David Mckinney on 02-01-2025 Anion gap [Moles/Vol] 12 mmol/L 5-15 [facility] Automated lymphocyte count a s percentage of total leukocytesOrdered By: David Mckinney on 02-01-2025 Lymphocytes/100 WBC Auto (Unsp spec) 25.6 % 19-41 [facility] BUN/creatinine ratioOrdered By: David Mckinney on 02-01-2025 Urea nitrogen/Creatinine [Mass ratio] 10.3 mg/mg 10-20 [facility] Basophil percentageOrdered B y: David Mckinney on 02-01-2025 Basophils/100 WBC (Bld) 0.5 % 0-1 [facility] Bilirubin, totalOrdered By: David Mckinney on 02-01-2025 Bilirubin [Mass/Vol] 0.17 mg/dL 0.00-1.30 [facility] CBC W/Diff, Automatedon 01-21-2024 Absolute Lymph 2.15 X10 3/uL Normal 0.83-4.51 [facility] Comment on above: Performed By: #### L 100.0100, L501.9520, L500.4050, L503.6550 #### [facility] Laboratory [address] [place], [address] Absolute Neut 5.4 X10 3/uL Normal 2.0-7.7 [facility] Comment on above: Performed By: #### L 100.0100, L501.9520, L500.4050, L503.6550 #### [facility] [address] [place], [address] Basophils/100 WBC (Bld) 0.5 % Normal 0-1 [facility] Comment on above: Performed By: #### L 100.0100, L501.9520, L500.4050, L503.6550 #### [facility] [address] [place], [address] Eosinophils/100 WBC (Bld) 5.1 % High 0-5 [facility] Comment on above: Performed By: #### L 100.0100, L501.9520, L500.4050, L503.6550 #### [facility] [address] [place], [address] Erythrocyte distribution width (RBC) [Ratio] 14.9 % High 11.6-14.6 [facility] Comment on above: Performed By: #### L 100.0100, L501.9520, L500.4050, L503.6550 #### [facility] [address] [place], [address] Hematocrit (Bld) [Volume fraction] 30.6 % Low 37-47 [facility] Comment on above: Performed By: #### L 100.0100, L501.9520, L500.4050, L503.6550 #### [facility] [address] [place], [address] Hemoglobin (Bld) [Mass/Vol] 10.0 g/dL Low 12.0-15.0 [facility] Comment on above: Performed By: #### L 100.0100, L501.9520, L500.4050, L503.6550 #### [facility] [address] [place], [address] IG% 0.600 Normal 0.0-0.9 [facility] Comment on above: Result Comment: IG% - Immature Granulocytes (promyelocytes, myelocytes and metamyelocytes) > 1% indicates that a LEFT SHIFT is Present. Performed By: #### L 100.0100, L501.9520, L500.4050, L503.6550 #### [facility] [address] [place], [address] Lymphocytes/100 WBC (Bld) 25.6 % Normal 19-41 [facility] Comment on above: Performed By: #### L 100.0100, L501.9520, L500.4050, L503.6550 #### [facility] [address] [place], [address] MCH (RBC) [Entitic mass] 28.0 pg Normal 27.0-32.0 [facility] Comment on above: Performed By: #### L 100.0100, L501.9520, L500.4050, L503.6550 #### [facility] [address] [place], [address] MCHC (RBC) [Mass/Vol] 32.7 g/dL Normal 32-36 [facility] Comment on above: Performed By: #### L 100.0100, L501.9520, L500.4050, L503.6550 #### [facility] [address] [place], [address] MCV (RBC) [Entitic vol] 85.7 fL Normal 81-99 [facility] Comment on above: Performed By: #### L 100.0100, L501.9520, L500.4050, L503.6550 #### [facility] [address] [place] [place], [address] Monocytes/100 WBC (Bld) 4.5 % Normal 0-10 [facility] Comment on above: Performed By: #### L 100.0100, L501.9520, L500.4050, L503.6550 #### [facility] [address] [place], [address] Neutrophils/100 WBC (Bld) 63.7 % Normal 47-70 [facility] Comment on above: Performed By: #### L 100.0100, L501.9520, L500.4050, L503.6550 #### [facility] [address] [place], [address] Nucleated RBC (Bld) [#/Vol] 0 10*3/uL Normal 0-5 [facility] Comment on above: Performed By: #### L 100.0100, L501.9520, L500.4050, L503.6550 #### [facility] [address] [place], [address] Platelet mean volume (Bld) [Entitic vol] 12.6 fL High 6.2-12.0 [facility] Comment on above: Performed By: #### L 100.0100, L501.9520, L500.4050, L503.6550 #### [facility] [address] [place], [address] Platelets (Bld) [#/Vol] 180 10*3/uL Normal 150-450 [facility] Comment on above: Performed By: #### L 100.0100, L501.9520, L500.4050, L503.6550 #### [facility] [address] [place], [address] RBC (Bld) [#/Vol] 3.57 10*6/uL Low 4.2-5.4 [facility] Comment on above: Performed By: #### L 100.0100, L501.9520, L500.4050, L503.6550 #### [facility] [address] [place], [address] RDW SD 46.1 fl High 35.1-43.9 [facility] Comment on above: Performed By: #### L 100.0100, L501.9520, L500.4050, L503.6550 #### [facility] [address] [place], [address] WBC (Bld) [#/Vol] 8.4 10*3/uL Normal 4.4-11.0 [facility] Comment on above: Performed By: #### L 100.0100, L501.9520, L500.4050, L503.6550 #### [facility] [address] [place], [address] Carbon dioxide, total [Moles /volume] in Central venous bloodOrdered By: David Mckinney on 02-01-2025 CO2 [Moles/Vol] 19.0 mmol/L Low 21.0-32.0 [facility] Chloride assayOrdered By: Davidson Mckinney on 02-01-2025 Chloride [Moles/Vol] 106 mmol/L 98-108 [facility] Comprehensive Metabolic Prof ilon 02-01-2025 Albumin [Mass/Vol] 3.1 g/dL Low 3.5-5.0 [facility] Comment on above: Performed By: #### L 100.0100, L501.9520, L500.4050, L503.6550 #### [facility] [address] [place], [address] Albumin/Globulin [Mass ratio] 1.1 {ratio} Normal 0.9-2.4 [facility] Comment on above: Performed By: #### L 100.0100, L501.9520, L500.4050, L503.6550 #### [facility] [address] [place], [address] ALK PHOS 99 U/L Normal 35-104 [facility] Comment on above: Performed By: #### L 100.0100, L501.9520, L500.4050, L503.6550 #### [facility] [address] [place], [address] ALT [Catalytic activity/Vol] 11 U/L Normal <=34 [facility] Comment on above: Performed By: #### L 100.0100, L501.9520, L500.4050, L503.6550 #### [facility] [address] [place], [address] AST [Catalytic activity/Vol] 12 U/L Normal <=31 [facility] Comment on above: Performed By: #### L 100.0100, L501.9520, L500.4050, L503.6550 #### [facility] [address] [place], [address] Bilirubin [Mass/Vol] 0.17 mg/dL Normal 0.00-1.30 [facility] Comment on above: Performed By: #### L 100.0100, L501.9520, L500.4050, L503.6550 #### [facility] [address] [place], [address] BUN/CRE 10.3 RATIO Normal 10-20 [facility] Comment on above: Performed By: #### L 100.0100, L501.9520, L500.4050, L503.6550 #### [facility] [address] [place], [address] Calcium [Mass/Vol] 8.2 mg/dL Normal 7.6-11.0 [facility] Comment on above: Performed By: #### L 100.0100, L501.9520, L500.4050, L503.6550 #### [facility] [address] [place], [address] Chloride [Moles/Vol] 106 mmol/L Normal 98-108 [facility] Comment on above: Performed By: #### L 100.0100, L501.9520, L500.4050, L503.6550 #### [facility] [address] [place], [address] CO2 [Moles/Vol] 19.0 mmol/L Low 21.0-32.0 [facility] Comment on above: Performed By: #### L 100.0100, L501.9520, L500.4050, L503.6550 #### [facility] [address] [place], [address] Creatinine [Mass/Vol] 0.45 mg/dL Low 0.70-1.20 [facility] Comment on above: Performed By: #### L 100.0100, L501.9520, L500.4050, L503.6550 #### [facility] [address] [place], [address] GAP 12 Normal 5-15 [facility] Comment on above: Performed By: #### L 100.0100, L501.9520, L500.4050, L503.6550 #### [facility] [address] [place], [address] GFR/1.73 sq M.predicted among non-blacks MDRD (S/P/Bld) [Vol rate/Area] 134 mL/min/{1.73_m2} Normal >60 [facility] Comment on above: Result Comment: mL/m in/1.73m2 CKD-EPI Creatinine Equation (2020) Performed By: #### L 100.0100, L501.9520, L500.4050, L503.6550 #### [facility] [address] [place], [address] Globulin (S) [Mass/Vol] 2.8 g/dL Normal 2.2-4.2 [facility] Comment on above: Performed By: #### L 100.0100, L501.9520, L500.4050, L503.6550 #### [facility] [address] [place], [address] Glucose [Mass/Vol] 94 mg/dL Normal 70-99 [facility] Comment on above: Performed By: #### L 100.0100, L501.9520, L500.4050, L503.6550 #### [facility] [address] [place], [address] Potassium [Moles/Vol] 3.3 mmol/L Normal 3.3-5.1 [facility] Comment on above: Performed By: #### L 100.0100, L501.9520, L500.4050, L503.6550 #### [facility] [address] [place] [place], [address] Sodium [Moles/Vol] 137 mmol/L Normal 133-145 [facility] Comment on above: Performed By: #### L 100.0100, L501.9520, L500.4050, L503.6550 #### [facility] [address] [place] [place], [address] T PROT 5.9 g/dL Normal 5.9-8.4 [facility] Comment on above: Performed By: #### L 100.0100, L501.9520, L500.4050, L503.6550 #### [facility] [address] [place], [address] Urea nitrogen [Mass/Vol] 5 mg/dL Normal 4-19 [facility] Comment on above: Performed By: #### L 100.0100, L501.9520, L500.4050, L503.6550 #### [facility] [address] [place], [address] Eosinophil percentageOrdered By: David Mckinney on 02-01-2025 Eosinophils/100 WBC (Bld) 5.1 % High 0-5 [facility] Erythrocyte distribution wid th ratioOrdered By: David Mckinney on 02-01-2025 Erythrocyte distribution width (RBC) [Ratio] 14.9 % High 11.6-14.6 [facility] Erythrocyte distribution wid th standard deviationOrdered By: David Mckinney on 02-01-2025 Erythrocyte distribution width (RBC) [Ratio] 46.1 fl High 35.1-43.9 [facility] Ferritinon 02-01-2025 Ferritin [Mass/Vol] 11 ng/mL Low 22-378 [facility] Comment on above: Performed By: #### L 100.0100, L501.9520, L500.4050, L503.6550 #### [facility] [address] [place], [address] Glomerular filtration rate ( GFR) estimation/1.73 sq m using serum, plasma, or whole bOrdered By: David Mckinney on 02-01-2025 GFR/1.73 sq M.predicted among non-blacks MDRD (S/P/Bld) [Vol rate/Area] 134 mL/min/{1.73_m2} >60 [facility] Comment on above: mL/min/1.73m2 CKD-EP I Creatinine Equation (2020) Hematocrit Auto (Bld) [Volum e fraction]Ordered By: David Mckinney on 02-01-2025 Hematocrit (Bld) [Volume fraction] 30.6 % Low 37-47 [facility] Hemoglobin measurementOrdere d By: David Mckinney on 02-01-2025 Hemoglobin (Bld) [Mass/Vol] 10.0 g/dL Low 12.0-15.0 [facility] Immature granulocytes/100 WB C Auto (Bld)Ordered By: David Mckinney on 02-01-2025 Immature granulocytes/100 WBC (Bld) 0.600 % 0.0-0.9 [facility] Comment on above: IG% - Immature Granu locytes (promyelocytes, myelocytes and metamyelocytes) > 1% indicates that a LEFT SHIFT is Present. Laboratory - Chemistry and C hemistry - challengeOrdered By: David Mckinney on 02-01-2025 AST [Catalytic activity/Vol] 12 U/L <32 [facility] MCV (mean corpuscular volume ) determinationOrdered By: David Mckinney on 02-01-2025 MCV (RBC) [Entitic vol] 85.7 fL 81-99 [facility] Mean corpuscular hemoglobin (MCH) determinationOrdered By: David Mckinney on 02-01-2025 MCH (RBC) [Entitic mass] 28.0 pg 27.0-32.0 [facility] Mean corpuscular hemoglobin concentration (MCHC) determinationOrdered By: David Mckinney on 02-01-2025 MCHC (RBC) [Mass/Vol] 32.7 g/dL 32-36 [facility] Mean platelet volume determi nationOrdered By: David Mckinney on 02-01-2025 Platelet mean volume (Bld) [Entitic vol] 12.6 fL High 6.2-12.0 [facility] Monocyte percentageOrdered B y: David Mckinney on 02-01-2025 Monocytes/100 WBC (Bld) 4.5 % 0-10 [facility] Neutrophil percentageOrdered By: David Mckinney on 02-01-2025 Neutrophils/100 WBC (Bld) 63.7 % 47-70 [facility] Nucleated red blood cell per centageOrdered By: David Mckinney on 02-01-2025 Nucleated RBC/100 WBC (Bld) [Ratio] 0 % 0-5 [facility] Platelet countOrdered By: Davidson Mckinney on 02-01-2025 Platelets (Bld) [#/Vol] 180 10*3/uL 150-450 [facility] Potassium measurement (mass/ volume)Ordered By: David Mckinney on 02-01-2025 Potassium (Unsp spec) [Mass/Vol] 3.3 mmol/L 3.3-5.1 [facility] RBC Auto (Bld) [#/Vol]Ordere d By: David Mckinney on 02-01-2025 RBC (Bld) [#/Vol] 3.57 10*6/uL Low 4.2-5.4 [facility] Serum creatinine measurement (mass/volume)Ordered By: David Mckinney on 02-01-2025 Creatinine [Mass/Vol] 0.45 mg/dL Low 0.70-1.20 [facility] Serum globulin measurementOr dered By: David Mckinney on 02-01-2025 Globulin (S) [Mass/Vol] 2.8 g/dL 2.2-4.2 [facility] Serum glucose measurement (m ass/volume)Ordered By: David Mckinney on 02-01-2025 Glucose [Mass/Vol] 94 mg/dL 70-99 [facility] Serum or plasma alanine rivero otransferase (ALT) measurementOrdered By: David Mckinney on 02-01-2025 ALT [Catalytic activity/Vol] 11 U/L <35 [facility] Serum or plasma albumin roopa urement (mass/volume)Ordered By: David Mckinney on 02-01-2025 Albumin [Mass/Vol] 3.1 g/dL Low 3.5-5.0 [facility] Serum or plasma albumin/glob ulin mass ratioOrdered By: David Mckinney on 02-01-2025 Albumin/Globulin [Mass ratio] 1.1 {ratio} 0.9-2.4 [facility] Serum or plasma alkaline robert sphatase measurementOrdered By: David Mckinney on 02-01-2025 ALP [Catalytic activity/Vol] 99 U/L 35-104 [facility] Serum or plasma calcium roopa urement (mass/volume)Ordered By: David Mckinney on 02-01-2025 Calcium [Mass/Vol] 8.2 mg/dL 7.6-11.0 [facility] Serum or plasma ferritin naresh surement (mass/volume)Ordered By: David Mckinney on 02-01-2025 Ferritin [Mass/Vol] 11 ng/mL Low 22-378 [facility] Serum or plasma urea nitroge n measurement (mass/volume)Ordered By: David Mckinney on 02-01-2025 Urea nitrogen [Mass/Vol] 5 mg/dL 4-19 [facility] Sodium levelOrdered By: David Mckinney on 02-01-2025 Sodium [Moles/Vol] 137 mmol/L 133-145 [facility] TSH DL <= 0.005 mIU/L QnOrde red By: David Mckinney on 02-01-2025 TSH Qn 0.340 uIU/mL 0.300-4.200 [facility] Thyroid Stim Hormone (TSH)on 02-01-2025 TSH 0.340 uIU/mL Normal 0.300-4.200 [facility] Comment on above: Performed By: #### L 100.0100, L501.9520, L500.4050, L503.6550 #### [facility] [address] [place] [address], [address] Total proteinOrdered By: Maya Mckinney on 02-01-2025 Protein [Mass/Vol] 5.9 g/dL 5.9-8.4 [facility] White blood cell (WBC) count Ordered By: David Mckinney on 02-01-2025 WBC (Bld) [#/Vol] 8.4 10*3/uL 4.4-11.0 [facility] CNPNon 01-13-2025 CNPN Telephone ([facility]) SHILPA HOANG ([id number]) 1995 F Date Time Provider Department 01/13/25 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 - PNV no.922-[id number]-qwmbvejtilv e 29-1 mg tab Take 1 tablet [...] 12 oz EFW by: Hadlock (HC-AC-FL) Extended Bit Tripoler 6.0 mm CM 4.1 mm 22% Nicolaides [...] normal LVOT view: normal 3-vessel view: normal [id number] view: normal Heart / Thorax Situs: situs [...] Read By: Vilma Farrell M.D. MATERNAL MEDICINE [facility] Radiology Study observation (narrative) [facility] Bacteria Ur Culton Bacteria identified Cx Nom (U) ORGANISM ID: 1 10,000 -<50,000 CFU/ml Normal urogenital casimiro Normal [facility] Comment on above: Performed By: #### 6 30-4 ####[facility] LABCLIA [id number] [place] [address] [place] CBC panel Auto (Bld)on 01-10 Erythrocyte distribution width (RBC) [Ratio] 14.5 % Normal 11.5-15.0 [facility] Comment on above: Order Comment: Speci men Type: BLOOD SPECIMEN Ordering Facility: [facility] Address: [address] [id number] Performed By: #### 5 8410-2 #### [facility] CLIA [id number] [address] [place] [address] [place] Hematocrit (Bld) [Volume fraction] 33.7 % Low 36.0-46.0 [facility] Comment on above: Order Comment: Speci men Type: BLOOD SPECIMEN Ordering Facility: [facility] Address: [address] [place] [address] Performed By: #### 5 8410-2 #### [facility] CLIA [id number] [address] [place] [address] [place] Hemoglobin (Bld) [Mass/Vol] 11.2 g/dL Low 11.5-15.5 [facility] Comment on above: Order Comment: Speci men Type: BLOOD SPECIMEN Ordering Facility: [facility] Address: [address] [place] [address] Performed By: #### 5 8410-2 #### [facility] CLIA [id number] [address] [place] [address] [place] MCH (RBC) [Entitic mass] 27.7 pg Normal 26.0-34.0 [facility] Comment on above: Order Comment: Speci men Type: BLOOD SPECIMEN Ordering Facility: [facility] Address: [address] [place] [address] Performed By: #### 5 8410-2 #### [facility] CLIA [id number] [address] [place] [address] [place] MCHC (RBC) [Mass/Vol] 33.2 g/dL Normal 30.5-36.0 [facility] Comment on above: Order Comment: Speci men Type: BLOOD SPECIMEN Ordering Facility: [facility] Address: [address] [place] [address] Performed By: #### 5 8410-2 #### [facility] CLIA [id number] [address] [place] [address] [place] MCV (RBC) [Entitic vol] 83.2 fL Normal 80.0-100.0 [facility] Comment on above: Order Comment: Speci men Type: BLOOD SPECIMEN Ordering Facility: [facility] Address: [address] [place] [address] Performed By: #### 5 8410-2 #### [facility] CLIA [id number] [address] [place] [address] [place] Nucleated RBC (Bld) [#/Vol] 10*3/uL Normal <0.01 [facility] Comment on above: Order Comment: Speci men Type: BLOOD SPECIMEN Ordering Facility: [facility] Address: [address] [place] [address] Performed By: #### 5 8410-2 #### [id number] [address] [place] [address] [place] Platelet mean volume (Bld) [Entitic vol] 11.5 fL Normal 9.0-12.7 [facility] Comment on above: Order Comment: Speci men Type: BLOOD SPECIMEN Ordering Facility: [facility] Address: [address] [place] [address] Performed By: #### 5 8410-2 #### [id number] [address] [place] [address] [place] Platelets (Bld) [#/Vol] 203 10*3/uL Normal 150-400 [facility] Comment on above: Order Comment: Speci men Type: BLOOD SPECIMEN Ordering Facility: [facility] Address: [address] [place] [address] Performed By: #### 5 8410-2 #### [facility] CLIA [id number] [address] [place] [address] [place] RBC (Bld) [#/Vol] 4.05 10*6/uL Normal 3.90-5.20 [facility] Comment on above: Order Comment: Speci men Type: BLOOD SPECIMEN Ordering Facility: [facility] Address: [address] [place] [address] Performed By: #### 5 8410-2 #### [facility] CLIA [id number] [address] [place] [address] [place] WBC (Bld) [#/Vol] 11.61 10*3/uL High 3.70-11.00 [facility] Comment on above: Order Comment: Speci men Type: BLOOD SPECIMEN Ordering Facility: [facility] Address: [address] [place] [address] Performed By: #### 5 8410-2 #### [facility] CLIA [id number] [address] [place] [address] [place] Comprehensive metabolic 2000 panelon 01-10-2025 Albumin [Mass/Vol] 3.7 g/dL Low 3.9-4.9 [facility] Comment on above: Order Comment: Speci men Type: BLOOD SPECIMEN Ordering Facility: [facility] Address: [address] [place] [address] Performed By: #### 2 4323-8 #### [facility] CLIA [id number] [address] [place] [address] [place] ALP [Catalytic activity/Vol] 97 U/L Normal 34-123 [facility] Comment on above: Order Comment: Speci men Type: BLOOD SPECIMEN Ordering Facility: [facility] Address: [address] [place] [address] Performed By: #### 2 4323-8 #### [facility] CLIA [id number] [address] [place] [address] [place] ALT [Catalytic activity/Vol] 7 U/L Normal 7-38 [facility] Comment on above: Order Comment: Speci men Type: BLOOD SPECIMEN Ordering Facility: [facility] Address: [address] [place] [address] Performed By: #### 2 4323-8 #### [facility] CLIA [id number] [address] [place] [address] [place] Anion gap [Moles/Vol] 14 mmol/L Normal 8-15 [facility] Comment on above: Order Comment: Speci men Type: BLOOD SPECIMEN Ordering Facility: [facility] Address: [address] [place] [address] Performed By: #### 2 4323-8 #### [facility] CLIA [id number] [address] [place] [address] [place] AST [Catalytic activity/Vol] 9 U/L Low 13-35 [facility] Comment on above: Order Comment: Speci men Type: BLOOD SPECIMEN Ordering Facility[facility] Address: [address] [place] [address] Performed By: #### 2 4323-8 #### [facility] CLIA [id number] [address] [place] [address] [place] Bilirubin [Mass/Vol] 0.2 mg/dL Normal 0.2-1.3 [facility] Comment on above: Order Comment: Speci men Type: BLOOD SPECIMEN Ordering Facility: [facility] Address: [address] [place] [address] Performed By: #### 2 4323-8 #### [facility] CLIA [id number] [address] [place] [address] [place] Calcium [Mass/Vol] 9.1 mg/dL Normal 8.5-10.2 [facility] Comment on above: Order Comment: Speci men Type: BLOOD SPECIMEN Ordering Facility: [facility] Address: [address] [place] [address] Performed By: #### 2 4323-8 #### [facility] CLIA [id number] [address] [place] [address] [place] Chloride [Moles/Vol] 102 mmol/L Normal 98-107 [facility] Comment on above: Order Comment: Speci men Type: BLOOD SPECIMEN Ordering Facility: [facility] Address: [address] [place] [address] Performed By: #### 2 4323-8 #### [facility] CLIA [id number] [address] [place] [address] [place] CO2 [Moles/Vol] 19 mmol/L Low 22-30 [facility] Comment on above: Order Comment: Speci men Type: BLOOD SPECIMEN Ordering Facility: [facility] Address: [address] [place] [address] Performed By: #### 2 4323-8 #### [facility] CLIA [id number] [address] [place] [address] [place] Creatinine [Mass/Vol] 0.45 mg/dL Low 0.58-0.96 [facility] Comment on above: Order Comment: Speci men Type: BLOOD SPECIMEN Ordering Facility[facility] Address: [address] [place] [address] Performed By: #### 2 4323-8 #### [facility] CLIA [id number] [address] [place] [address] [place] eGFRcr SerPlBld CKD-EPI 2020 135 mL/min/1.73m??? Normal >=60 [facility] Comment on above: Order Comment: Speci men Type: BLOOD SPECIMEN Ordering Facility: [facility] Address: [address] [place], [place] [id number] Result Comment: Sameera mated Glomerular Filtration Rate [...] actual GFR. Performed By: #### 2 4323-8 #### [facility] CLIA [id number] [address] [place] [address] [place] Glucose [Mass/Vol] 105 mg/dL High 74-99 [facility] Comment on above: Order Comment: Costa bergeron Type: BLOOD SPECIMEN Order[facility] Address: [address] [place] [address] Result Comment: The [place] Diabetes Association (ADA) provides guidance for cutoff [...] Standards of Medical Care in Diabetes 2016, [place] Diabetes Association. Diabetes Care. 2016.39(Suppl 1). Performed By: #### 2 4323-8 #### [id number] [address] [place] [address] [place] Potassium [Moles/Vol] 4.2 mmol/L Normal 3.7-5.1 [facility] Comment on above: Order Comment: Costa bergeron Type: BLOOD SPECIMEN Ordering Facility[facility] Address: [address] [place] [address] Performed By: #### 2 4323-8 #### [facility] [id number] [address] [place] [address] [place] Protein [Mass/Vol] 6.8 g/dL Normal 6.3-8.0 [facility] Comment on above: Order Comment: Costa bergeron Type: BLOOD SPECIMEN Ordering Facility: [facility] Address: [address] [place] [address] Performed By: #### 2 4323-8 #### [facility] CLIA [id number] [address] [place] [address] [place] Sodium [Moles/Vol] 135 mmol/L Low 136-144 [facility] Comment on above: Order Comment: Speci men Type: BLOOD SPECIMEN Order[facility] Address: [address] [place] [address] Performed By: #### 2 4323-8 #### [facility] CLIA [id number] [address] [place] [address] [place] Urea nitrogen [Mass/Vol] 9 mg/dL Normal 7-21 [facility] Comment on above: Order Comment: Speci men Type: BLOOD SPECIMEN Order[facility] Address: [address] [place] [address] Performed By: #### 2 4323-8 #### [facility] CLIA [id number] [address] [place] [address] [place] [id number] PLUSon 01-10-2025 Cell-free DNA./Cell-free DNA.total Dosage of chromosome-specific cfDNA (cfDNA) [Molar fraction] Normal [facility] Comment on above: Order Comment: Speci men Type: BLOOD SPECIMENOrdering Facility: [facility] Address: [address] [place] [address] Performed By: #### M AT21 ####[facility] LABCLIA [id number] [place] [address] Chr 13+18+21+X+Y aneuploidy Dosage of chromosome-specific cfDNA Ql (cfDNA) Abnormal [facility] Comment on above: Order Comment: Speci men Type: BLOOD SPECIMENOrdering Facility: [facility] Address: [address] [place] [address] Result Comment: Test not performed. Performed By: #### M AT21 ####[facility] [facility] LABCLIA [id number] [place] [address] Citation Jose (Reference lab test) Comment Normal [facility] Comment on above: Order Comment: Specraul men Type: BLOOD SPECIMENOrdering Facility: [facility] Address: [address] [place] [address] Result Comment: 1. P sonali HAYS, et al. Jahaira Med. 2012;14(3):296-305. 2. Latha WADE et al. Prenat Diag. 2013;33(6):591-597. 3. Bryn Barrera, et al. Clin Chem. 2015 Apr;61(4):608-616. 4. Paul HAYS et al. Jahaira Med. 2011;13(11):913-920. 5. ACOG/SMFM Practice Bulletin No. 226, Mar 2020. Performed By: #### M AT21 ####[facility] LABCLIA [id number] [place] [address] Gestational age Estimated from conception date Marquez Normal [facility] Comment on above: Order Comment: Costa bergeron Type: BLOOD SPECIMENOrdering Facility: [facility] Address: [address] [place] [address] Performed By: #### M AT21 ####[employer] [facility] LABCLIA [id number] [place] [address] GESTATIONALAGE AGE > OR = 9W Yes Normal [facility] Comment on above: Order Comment: Costa bergeron Type: BLOOD SPECIMENOrdering Facility: [facility] Address: [address] [place] [address] Performed By: #### M AT21 ####[employer] [facility] LABCLIA [id number] [place] [address] Laboratory comment Jose (Report) Comment Normal [facility] Comment on above: Order Comment: Costa bergeron Type: BLOOD SPECIMENOrdering Facility: [facility] Address: [address] [place] [address] Result Comment: The MaterniT(R) 21 PLUS laboratory-developed test (LDT) analyzes circulating cell-free DNA from a maternal blood sample. This test is used for screening purposes and not diagnostic. Clinical correlation is recommended. Validation data on twin pregnancies is limited and the ability of this test to detect aneuploidy in higher multiple gestations has not yet been validated. Performed By: #### M AT21 ####[facility] LABCLIA [id number] [place] [address] band director name Nom (Provider) Comment Normal [facility] Comment on above: Order Comment: Speci men Type: BLOOD SPECIMENOrdering Facility: [facility] Address: [address] [place] [address] Result Comment: Test not performed. Duplicate tests ordered. For inquiries, the physician may contact Client Services at [phone]. Comment Torito Butler MD, PhD, Director, [facility] Performed By: #### M AT21 ####[facility] [facility] LABCLIA [id number] [place] [address] LIMITATIONS OF THE TEST Comment Normal [facility] Comment on above: Order Comment: Speci men Type: BLOOD SPECIMENOrdering Facility: [facility] Address: [address] [place] [address] Result Comment: Kayli talbot the results of [...] and Fragmin(R)). Performed By: #### M AT21 ####[employer] [id number] [place] [address] NEGATIVE PREDICTIVE VALUE Comment Normal [facility] Comment on above: Order Comment: Costa bergeron Type: BLOOD SPECIMENOrdering Facility: [facility] Address: [address] [place] [address] Result Comment: The Negative Predictive Value (NPV) for trisomy 21, 18, and 13 is greater than 99%. The NPV for SCA and ESS cannot be calculated as SCA and ESS are only reported when an abnormality is detected. Performed By: #### M AT21 ####[facility] BasslineIA [id number] [place] [address] PERFORMANCE CHARACTERISTICS Comment Normal [facility] Comment on above: Order Comment: Costa bergeron Type: BLOOD SPECIMENOrdering Facility: [facility] Address: [address] [place] [address] Result Comment: ! Sex ! Accuracy: 99.4% [...] ! ! ! * As reported in [facility] database nstd37 [https://www.ncbi.nlm.nih.gov/dbvar/studies/nstd37/ ] # Estimated Sensitivity. [...] gestation only. Performed By: #### M AT21 ####[employer] LABCLIA [id number] [place] [id number] Reference Lab Test Method Comment Normal [facility] Comment on above: Order Comment: Speci men Type: BLOOD SPECIMENOrdering Facility: [facility] Address: [address] [place] [address] Result Comment: Circ ulating cell-free DNA was [...] and 22. Performed By: #### M AT21 ####[facility] [facility] LABCLIA [id number] [place] [id number] Service comment (Unsp spec) [Interp] Comment Normal [facility] Comment on above: Order Comment: Speci men Type: BLOOD SPECIMENOrdering Facility: [facility] Address: [address] [place] [address] Result Comment: [employer] is a subsidiary of [employer], using the brand [employer]. This test was developed and its performance characteristics determined by [employer]. It has not been cleared or approved by the Food and Drug Administration. This laboratory is certified under the Clinical Laboratory Improvement Amendments (CLIA) as qualified to perform high complexity clinical laboratory testing and accredited by the College of [place] [employer] (CAP). Performed By: #### M AT21 ####[employer] [facility] LABCLIA [id number] [place] [address] Test performance information Jose (Unsp spec) Comment Normal [facility] Comment on above: Order Comment: Speci men Type: BLOOD SPECIMENOrdering Facility: [facility] Address: [address] [place] [address] Result Comment: The performance characteristics of the MaterniT(R) 21 PLUS laboratory-developed test (LDT) have been determined in a clinical validation study with women at increased risk for chromosomal aneuploidy.[1-4] Performed By: #### M AT21 ####[employer] [facility] LABCLIA [id number] [place] [address] Prot/Creat Uron 01-10-2025 Protein/Creatinine (U) [Mass ratio] 0.14 mg/mg Normal <0.15 [facility] Comment on above: Order Comment: Speci men Type: URINE SPECIMENOrdering Facility: [facility] Address: [address] [place] [address] Result Comment: Adul t Proteinuria Categories: <0.15 mg/mg is considered normal to mildly increased 0.15 - 0.50 mg/mg is considered moderately increased >0.50 mg/mg is considered severely increased KDIGO. (2013). KDIGO 2012 Clinical Practice Guideline for the Evaluation and Management of Chronic Kidney Disease. Official Journal of the International Society of Nephrology, 3(1), 1-150. Performed By: #### 2 890-2, UTOX2 ####[facility] LABCLIA [id number] [place] [address] [place] Protein/Creatinine (U) [Mass ratio]on 01-10-2025 Creatinine (U) [Mass/Vol] 79.9 mg/dL Normal 20.0-300.0 [facility] Comment on above: Order Comment: Speci men Type: URINE SPECIMENOrdering Facility: [facility] Address: [address] [place] [address] Performed By: #### 2 890-2, UTOX2 ####[facility] LABCLIA [id number] [place] [address] [place] Protein (U) [Mass/Vol] 11 mg/dL Normal 0-[address] [facility] Comment on above: Order Comment: Speci men Type: URINE SPECIMENOrdering Facility: [facility] Address: [address] [place] [address] Performed By: #### 2 890-2, UTOX2 ####[facility] LABIA [id number] [place] [address] [place] TOXICOLOGY SCREEN, ROUTINE U RINEon 01-10-2025 Amphetamines Confirm (U) [Mass/Vol] Negative Normal Negative [facility] Comment on above: Order Comment: Speci men Type: URINE SPECIMENOrdering Facility: [facility] Address: [address] [place] [address] Result Comment: Cuto ff threshold at 1000 ng/mL. Performed By: #### 2 890-2, UTOX2 ####[facility] LABIA [id number] [place] [address] [place] BARBITURATES, URINE Negative Normal Negative [facility] Comment on above: Order Comment: Speci men Type: URINE SPECIMENOrdering Facility: [facility] Address: [address] [place] [address] Result Comment: Cuto ff threshold at 200 ng/mL. Performed By: #### 2 890-2, UTOX2 ####[facility] LABIA [id number] [place] [address] [place] BENZODIAZEPINES, URINE Negative Normal Negative [facility] Comment on above: Order Comment: Speci men Type: URINE SPECIMENOrdering Facility: [facility] Address: [address] [place] [address] Result Comment: Cuto ff threshold at 200 ng/mL. Performed By: #### 2 890-2, UTOX2 ####[facility] LABCLIA [id number] [place] [address] [place] Cannabinoids Screen Ql (U) Negative Normal Negative [facility] Comment on above: Order Comment: Speci men Type: URINE SPECIMENOrdering Facility: [facility] Address: [address] [place] [address] Result Comment: Cuto ff threshold at 50 ng/mL. Performed By: #### 2 890-2, UTOX2 ####[facility] LABCLIA [id number] [place] [address] [place] Cocaine Ql (U) Negative Normal Negative [facility] Comment on above: Order Comment: Speci men Type: URINE SPECIMENOrdering Facility: [facility] Address: [address] [place] [address] Result Comment: Cuto ff threshold at 300 ng/mL. Performed By: #### 2 890-2, UTOX2 ####[facility] LABCLIA [id number] [place] [address] [place] Ethanol (U) [Mass/Vol] <11 Normal <[address] [facility] Comment on above: Order Comment: Speci men Type: URINE SPECIMENOrdering Facility: [facility] Address: [address] [place] [address] Performed By: #### 2 890-2, UTOX2 ####[facility] LABCLIA [id number] [place] [address] [place] fentaNYL Screen Ql (U) Negative Normal Negative [facility] Comment on above: Order Comment: Speci men Type: URINE SPECIMENOrdering Facility: [facility] Address: [address] [place] [address] Result Comment: Cuto ff threshold at 5 ng/mL. Performed By: #### 2 890-2, UTOX2 ####[facility] LABCLIA [id number] [place] [address] [place] Opiates Screen Ql (U) Negative Normal Negative [facility] Comment on above: Order Comment: Speci men Type: URINE SPECIMENOrdering Facility: [facility] Address: [address] [place] [address] Result Comment: Cuto ff threshold at 300 ng/mL. Performed By: #### 2 890-2, UTOX2 ####[facility] LABCLIA [id number] [place] [address] [place] oxyCODONE cutoff Screen (U) [Mass/Vol] Negative Normal Negative [facility] Comment on above: Order Comment: Speci men Type: URINE SPECIMENOrdering Facility: [facility] Address: [address] [place] [address] Result Comment: Cuto ff threshold at 100 ng/mL. Performed By: #### 2 890-2, UTOX2 ####[facility] LABIA [id number] [place] [address] [place] Phencyclidine Ql (U) Negative Normal Negative [facility] Comment on above: Order Comment: Speci men Type: URINE SPECIMENOrdering Facility: [facility] Address: [address] [place] [address] Result Comment: Cuto ff threshold at 25 ng/mL. Performed By: #### 2 890-2, UTOX2 ####[facility] LABCLIA [id number] [place] [address] [place] 12 Lead EKGon 12-11-2024 12 Lead EKG [facility] [address] [place] [address] 12 Lead EKG 12/11/24 1413 MR#: [id number] Acct: [id number] Name: SHILPA HOANG Rep #: [id number] : 1995 28 From: Josh Dudley MD [...] rhythm Normal ECG Confirmed by Josh Dudley ([id number]), acquisition editor IDA OSPINA ([id number]) on 12/14/2024 11:47:52 AM Referred By: UG Confirmed By: Josh Dudley 12/14/24 1147 Date Josh Dudley MD CC: Dr. David Mckinney MD; Dr. Lake Mirza, DO Signed Normal [facility] Absolute lymphocyte countOrd ered By: Lake Mirza on 12-11-2024 Lymphocytes Auto (Unsp spec) [#/Vol] 1.53 10*3/uL 0.83-4.51 [facility] Absolute neutrophil countOrd ered By: Lake Mirza on 12-11-2024 Neutrophils (Bld) [#/Vol] 5.2 10*3/uL 2.0-7.7 [facility] Anion gap in Serum or Plasma Ordered By: Lake Mirza on 12-11-2024 Anion gap [Moles/Vol] 12 mmol/L 5-15 [facility] Automated lymphocyte count a s percentage of total leukocytesOrdered By: Lake Mirza on 12-11-2024 Lymphocytes/100 WBC Auto (Unsp spec) 20.5 % 19-41 [facility] BUN/creatinine ratioOrdered By: Lake Mirza on 12-11-2024 Urea nitrogen/Creatinine [Mass ratio] 12.0 mg/mg 10-20 [facility] Basophil percentageOrdered B y: Lake Mirza on 12-11-2024 Basophils/100 WBC (Bld) 0.5 % 0-1 [facility] Bilirubin Test strip Ql (U)O rdered By: Lake Mirza on 12-11-2024 Bilirubin Ql (U) Negative Negative [facility] Bilirubin, totalOrdered By: Lake Mirza on 12-11-2024 Bilirubin [Mass/Vol] 0.24 mg/dL 0.00-1.30 [facility] CBC W/Diff, Automatedon 11-22 Absolute Lymph 1.53 X10 3/uL Normal 0.83-4.51 [facility] Comment on above: Performed By: #### L 100.0100, L500.4050, L501.2450 #### [facility] Laboratory [address] [place], [address] Absolute Neut 5.2 X10 3/uL Normal 2.0-7.7 [facility] Comment on above: Performed By: #### L 100.0100, L500.4050, L501.2450 #### [facility] [address] [place], [address] Basophils/100 WBC (Bld) 0.5 % Normal 0-1 [facility] Comment on above: Performed By: #### L 100.0100, L500.4050, L501.2450 #### [facility] [address] [place], [address] Eosinophils/100 WBC (Bld) 4.7 % Normal 0-5 [facility] Comment on above: Performed By: #### L 100.0100, L500.4050, L501.2450 #### [facility] [address] [place], [address] Erythrocyte distribution width (RBC) [Ratio] 14.6 % Normal 11.6-14.6 [facility] Comment on above: Performed By: #### L 100.0100, L500.4050, L501.2450 #### [facility] [address] [place], [address] Hematocrit (Bld) [Volume fraction] 34.1 % Low 37-47 [facility] Comment on above: Performed By: #### L 100.0100, L500.4050, L501.2450 #### [facility] [address] [place], [address] Hemoglobin (Bld) [Mass/Vol] 11.0 g/dL Low 12.0-15.0 [facility] Comment on above: Performed By: #### L 100.0100, L500.4050, L501.2450 #### [facility] [address] [place], [address] IG% 0.400 Normal 0.0-0.9 [facility] Comment on above: Result Comment: IG% - Immature Granulocytes (promyelocytes, myelocytes and metamyelocytes) > 1% indicates that a LEFT SHIFT is Present. Performed By: #### L 100.0100, L500.4050, L501.2450 #### [facility] [address] [place], [address] Lymphocytes/100 WBC (Bld) 20.5 % Normal 19-41 [facility] Comment on above: Performed By: #### L 100.0100, L500.4050, L501.2450 #### [facility] [address] [place], [address] MCH (RBC) [Entitic mass] 27.6 pg Normal 27.0-32.0 [facility] Comment on above: Performed By: #### L 100.0100, L500.4050, L501.2450 #### [facility] Laboratory [address] [place], [address] MCHC (RBC) [Mass/Vol] 32.3 g/dL Normal 32-36 [facility] Comment on above: Performed By: #### L 100.0100, L500.4050, L501.2450 #### [facility] [address] [place], [address] MCV (RBC) [Entitic vol] 85.7 fL Normal 81-99 [facility] Comment on above: Performed By: #### L 100.0100, L500.4050, L501.2450 #### [facility] [address] [place], [address] Monocytes/100 WBC (Bld) 4.6 % Normal 0-10 [facility] Comment on above: Performed By: #### L 100.0100, L500.4050, L501.2450 #### [facility] [address] [place], [address] Neutrophils/100 WBC (Bld) 69.3 % Normal 47-70 [facility] Comment on above: Performed By: #### L 100.0100, L500.4050, L501.2450 #### [facility] [address] [place], [address] Nucleated RBC (Bld) [#/Vol] 0 10*3/uL Normal 0-5 [facility] Comment on above: Performed By: #### L 100.0100, L500.4050, L501.2450 #### [facility] [address] [place], [address] Platelet mean volume (Bld) [Entitic vol] 12.0 fL Normal 6.2-12.0 [facility] Comment on above: Performed By: #### L 100.0100, L500.4050, L501.2450 #### [facility] [address] [place], [address] Platelets (Bld) [#/Vol] 176 10*3/uL Normal 150-450 [facility] Comment on above: Performed By: #### L 100.0100, L500.4050, L501.2450 #### [facility] [address] [place], [address] RBC (Bld) [#/Vol] 3.98 10*6/uL Low 4.2-5.4 [facility] Comment on above: Performed By: #### L 100.0100, L500.4050, L501.2450 #### [facility] [address] [place], [address] RDW SD 45.6 fl High 35.1-43.9 [facility] Comment on above: Performed By: #### L 100.0100, L500.4050, L501.2450 #### [facility] [address] [place], [address] WBC (Bld) [#/Vol] 7.5 10*3/uL Normal 4.4-11.0 [facility] Comment on above: Performed By: #### L 100.0100, L500.4050, L501.2450 #### [facility] [address] [place], [address] Carbon dioxide, total [Moles /volume] in Central venous bloodOrdered By: Lake Mizra on 12-11-2024 CO2 [Moles/Vol] 18.6 mmol/L Low 21.0-32.0 [facility] Chloride assayOrdered By: Bhavik Mirza on 12-11-2024 Chloride [Moles/Vol] 107 mmol/L 98-108 [facility] Comprehensive Metabolic Prof ilon 12-11-2024 Albumin [Mass/Vol] 3.3 g/dL Low 3.5-5.0 [facility] Comment on above: Performed By: #### M 100.2200, L400.0001 #### [facility] [address] [place], [address] Albumin/Globulin [Mass ratio] 1.1 {ratio} Normal 0.9-2.4 [facility] Comment on above: Performed By: #### M 100.2200, L400.0001 #### [facility] [address] [place], [address] ALK PHOS 85 U/L Normal 35-104 [facility] Comment on above: Performed By: #### M 100.2200, L400.0001 #### [facility] [address] [place], [address] ALT [Catalytic activity/Vol] 16 U/L Normal <=34 [facility] Comment on above: Performed By: #### M 100.2200, L400.0001 #### [facility] [address] [place], [address] AST [Catalytic activity/Vol] 17 U/L Normal <=31 [facility] Comment on above: Performed By: #### M 100.2200, L400.0001 #### [facility] [address] [place], [address] Bilirubin [Mass/Vol] 0.24 mg/dL Normal 0.00-1.30 [facility] Comment on above: Performed By: #### M 100.2200, L400.0001 #### [facility] [address] [place], [address] BUN/CRE 12.0 RATIO Normal 10-20 [facility] Comment on above: Performed By: #### M 100.2200, L400.0001 #### [facility] [address] [place], [address] Calcium [Mass/Vol] 8.5 mg/dL Normal 7.6-11.0 [facility] Comment on above: Performed By: #### M 100.2200, L400.0001 #### [facility] [address] [place], [address] Chloride [Moles/Vol] 107 mmol/L Normal 98-108 [facility] Comment on above: Performed By: #### M 100.2200, L400.0001 #### [facility] [address] [place], [address] CO2 [Moles/Vol] 18.6 mmol/L Low 21.0-32.0 [facility] Comment on above: Performed By: #### M 100.2200, L400.0001 #### [facility] [address] [place], [address] Creatinine [Mass/Vol] 0.53 mg/dL Low 0.70-1.20 [facility] Comment on above: Performed By: #### M 100.2200, L400.0001 #### [facility] [address] [place], [address] ECRCL 164.63 ml/min Normal 50-250 [facility] Comment on above: Performed By: #### M 100.2200, L400.0001 #### [facility] [address] [place], [address] GAP 12 Normal 5-15 [facility] Comment on above: Performed By: #### M 100.2200, L400.0001 #### [facility] [address] [place], [address] GFR/1.73 sq M.predicted among non-blacks MDRD (S/P/Bld) [Vol rate/Area] 130 mL/min/{1.73_m2} Normal >60 [facility] Comment on above: Result Comment: mL/m in/1.73m2 CKD-EPI Creatinine Equation (2020) Performed By: #### M 100.2200, L400.0001 #### [facility] [address] [place], [address] Globulin (S) [Mass/Vol] 2.9 g/dL Normal 2.2-4.2 [facility] Comment on above: Performed By: #### M 100.2200, L400.0001 #### [facility] [address] [place], [address] Glucose [Mass/Vol] 125 mg/dL High 70-99 [facility] Comment on above: Performed By: #### M 100.2200, L400.0001 #### [facility] [address] [place], [address] Potassium [Moles/Vol] 3.5 mmol/L Normal 3.3-5.1 [facility] Comment on above: Performed By: #### M 100.2200, L400.0001 #### [facility] [address] [place], [address] Sodium [Moles/Vol] 137 mmol/L Normal 133-145 [facility] Comment on above: Performed By: #### M 100.2200, L400.0001 #### [facility] [address] [place], [address] T PROT 6.2 g/dL Normal 5.9-8.4 [facility] Comment on above: Performed By: #### M 100.2200, L400.0001 #### [facility] [address] [place], [address] Urea nitrogen [Mass/Vol] 6 mg/dL Normal 4-19 [facility] Comment on above: Performed By: #### M 100.2200, L400.0001 #### [facility] Laboratory [address] [place], [address] Emergency Department Summary on 12-11-2024 Emergency Department Summary [facility] Medical Records Department [address] [place] [address] Emergency Department Summary 12/11/24 MR#: [id number] Acct: [id number] Name: SHILPA HOANG Rep #: [id number] : 1995 28 From: [place] PCP: Dr. David Mckinney MD Status:DEP ER Location: ED HPI HPI - GI History of Present Illness Chief Complaint: Abd Pain Informant: patient Narrative Narrative: G5, P4 15-16 with gestation followed by [facility]. Awake and abdominal discomfort this morning [...] Medications ???Medication ???Instructions ???Recorded ???Last Taken ???Type [id number] 1 mg 1 tab PO DAILY 09/13/21 [...] results. 22 (more content not included)... Normal [facility] Eosinophil percentageOrdered By: [place] Mirza on 12-11-2024 Eosinophils/100 WBC (Bld) 4.7 % 0-5 [facility] Erythrocyte distribution wid th ratioOrdered By: [place] Mirza on 12-11-2024 Erythrocyte distribution width (RBC) [Ratio] 14.6 % 11.6-14.6 [facility] Erythrocyte distribution wid th standard deviationOrdered By: [place] Mirza on 12-11-2024 Erythrocyte distribution width (RBC) [Ratio] 45.6 fl High 35.1-43.9 [facility] Glomerular filtration rate ( GFR) estimation/1.73 sq m using serum, plasma, or whole bOrdered By: [place] Mirza on 12-11-2024 GFR/1.73 sq M.predicted among non-blacks MDRD (S/P/Bld) [Vol rate/Area] 130 mL/min/{1.73_m2} >60 [facility] Comment on above: mL/min/1.73m2 CKD-EP I Creatinine Equation (2020) Hematocrit Auto (Bld) [Volum e fraction]Ordered By: [place] Mirza on 12-11-2024 Hematocrit (Bld) [Volume fraction] 34.1 % Low 37-47 [facility] Hemoglobin measurementOrdere d By: [place] Mirza on 12-11-2024 Hemoglobin (Bld) [Mass/Vol] 11.0 g/dL Low 12.0-15.0 [facility] Immature granulocytes/100 WB C Auto (Bld)Ordered By: [place] Mirza on 12-11-2024 Immature granulocytes/100 WBC (Bld) 0.400 % 0.0-0.9 [facility] Comment on above: IG% - Immature Granu locytes (promyelocytes, myelocytes and metamyelocytes) > 1% indicates that a LEFT SHIFT is Present. Ketones Test strip Ql (U)Ord ered By: [place] Mirza on 12-11-2024 Ketones Ql (U) Negative Negative [facility] Laboratory - Chemistry and C hemistry - challengeOrdered By: [place] Mirza on 12-11-2024 AST [Catalytic activity/Vol] 17 U/L <32 [facility] Lipaseon 12-11-2024 Lipase [Catalytic activity/Vol] 22 U/L Normal 13-75 [facility] Comment on above: Result Comment: Pleal redman note: LIPASE revised reference range effective 22. New Lipase methodology. Expected to produce lower values than the previous assay method. NEW Reference Range: 13 - 75 U/L Performed By: #### M 100.2200, L400.0001 #### [facility] [address] [place], [place], [address] Lipase measurementOrdered By : [place] Mirza on 12-11-2024 Lipase [Catalytic activity/Vol] 22 U/L 13-75 [facility] Comment on above: Please note:LIPASE r evised reference range effective 22. New Lipase methodology. Expected to produce lower values than the previous assay method. NEW Reference Range: 13 - 75 U/L MCV (mean corpuscular volume ) determinationOrdered By: [place] Mirza on 12-11-2024 MCV (RBC) [Entitic vol] 85.7 fL 81-99 [facility] Mean corpuscular hemoglobin (MCH) determinationOrdered By: [place] Mirza on 12-11-2024 MCH (RBC) [Entitic mass] 27.6 pg 27.0-32.0 [facility] Mean corpuscular hemoglobin concentration (MCHC) determinationOrdered By: [place] Mirza on 12-11-2024 MCHC (RBC) [Mass/Vol] 32.3 g/dL 32-36 [facility] Mean platelet volume determi nationOrdered By: [place] Mirza on 12-11-2024 Platelet mean volume (Bld) [Entitic vol] 12.0 fL 6.2-12.0 [facility] Microscopic analysis of urin e for red blood cells (RBC)Ordered By: [place] Mir[place] on 12-11-2024 Microscopic analysis of urine for red blood cells (RBC) 0-5 SEEN /hpf 0-5 [facility] Monocyte percentageOrdered B y: [place] Mir[place] on 12-11-2024 Monocytes/100 WBC (Bld) 4.6 % 0-10 [facility] Mucus LM Ql (Urine sed)Order ed By: [place]za on 12-11-2024 Mucus Ql (Urine sed) 0 SEEN /hpf [facility] Neutrophil percentageOrdered By: [place] Mirza on 12-11-2024 Neutrophils/100 WBC (Bld) 69.3 % 47-70 [facility] Nitrite Test strip Ql (U)Ord ered By: [place] on 12-11-2024 Nitrite Ql (U) Negative Negative [facility] Nucleated red blood cell per centageOrdered By: [place] Mirza on 12-11-2024 Nucleated RBC/100 WBC (Bld) [Ratio] 0 % 0-5 [facility] Platelet countOrdered By: Bhavik Mirza on 12-11-2024 Platelets (Bld) [#/Vol] 176 10*3/uL 150-450 [facility] Potassium measurement (mass/ volume)Ordered By: [place] Mirza on 12-11-2024 Potassium (Unsp spec) [Mass/Vol] 3.5 mmol/L 3.3-5.1 [facility] Protein Test strip Ql (U)Ord ered By: [place] on 12-11-2024 Protein Ql (U) 15 mg/dl High Negative [facility] RBC Auto (Bld) [#/Vol]Ordere d By: [place] Mirza on 12-11-2024 RBC (Bld) [#/Vol] 3.98 10*6/uL Low 4.2-5.4 [facility] Serum creatinine measurement (mass/volume)Ordered By: [place]za on 12-11-2024 Creatinine [Mass/Vol] 0.53 mg/dL Low 0.70-1.20 [facility] Serum globulin measurementOr dered By: [place] on 12-11-2024 Globulin (S) [Mass/Vol] 2.9 g/dL 2.2-4.2 [facility] Serum glucose measurement (m ass/volume)Ordered By: [place] on 12-11-2024 Glucose [Mass/Vol] 125 mg/dL High 70-99 [facility] Serum or plasma alanine rivero otransferase (ALT) measurementOrdered By: [place]za on 12-11-2024 ALT [Catalytic activity/Vol] 16 U/L <35 [facility] Serum or plasma albumin roopa urement (mass/volume)Ordered By: [place] on 12-11-2024 Albumin [Mass/Vol] 3.3 g/dL Low 3.5-5.0 [facility] Serum or plasma albumin/glob ulin mass ratioOrdered By: [place] Mir[place] on 12-11-2024 Albumin/Globulin [Mass ratio] 1.1 {ratio} 0.9-2.4 [facility] Serum or plasma alkaline robert sphatase measurementOrdered By: [place] Mirza 12-11-2024 ALP [Catalytic activity/Vol] 85 U/L 35-104 [facility] Serum or plasma calcium roopa urement (mass/volume)Ordered By: [place] on 12-11-2024 Calcium [Mass/Vol] 8.5 mg/dL 7.6-11.0 [facility] Serum or plasma urea nitroge n measurement (mass/volume)Ordered By: [place] on 12-11-2024 Urea nitrogen [Mass/Vol] 6 mg/dL 4-19 [facility] Sodium levelOrdered By: [place] Mirza on 12-11-2024 Sodium [Moles/Vol] 137 mmol/L 133-145 [facility] Squamous epithelial cells de tection in urine sediment by light microscopyOrdered By: [place] Mirza on 12-11-2024 Epithelial cells.squamous LM Ql (Urine sed) 0-5 SEEN /hpf 5-10 [facility] Total proteinOrdered By: Danny Mirza on 12-11-2024 Protein [Mass/Vol] 6.2 g/dL 5.9-8.4 [facility] Urinalysis, Completeon 12-11 BACTERIA 2+ /hpf Normal None Seen [facility] Comment on above: Order Comment: CLEAN CATCH Performed By: #### L 400.0001 #### [facility] Laboratory [address] [place], [address] EPI,SQUAMOUS 0-5 SEEN Normal 5-10 [facility] Comment on above: Order Comment: CLEAN CATCH Performed By: #### L 400.0001 #### [facility] Laboratory [address] [place], [address] RBC 0-5 SEEN Normal 0-5 [facility] Comment on above: Order Comment: CLEAN CATCH Performed By: #### L 400.0001 #### [facility] [address] [place], [address] WBC 10-25 SEEN Normal 0-5 [facility] Comment on above: Order Comment: CLEAN CATCH Performed By: #### L 400.0001 #### [facility] [address] [place], [address] Mucus Ql (Urine sed) 0 SEEN Normal [facility] Comment on above: Order Comment: CLEAN CATCH Performed By: #### L 400.0001 #### [facility] [address] [place], [address] Urine clarityOrdered By: Danny Mirza on 12-11-2024 Clarity (U) Cloudy Clear [facility] Urine color determinationOrd ered By: [place] Mirza on 12-11-2024 Color (U) Straw Yellow [facility] Urine glucose detectionOrder ed By: [place] Mirza on 12-11-2024 Glucose Ql (U) Normal mg/dl Normal [facility] Urine leukocyte esterase det ection by dipstickOrdered By: [place] Mirza on 12-11-2024 Leukocyte esterase Test strip Ql (U) 500 /ul High Negative [facility] Urine pHOrdered By: [place] Mirza on 12-11-2024 pH (U) 6.0 [pH] 5.0 - 8.0 [facility] Urine sediment bacteria coun t by microscopy (number/high power field)Ordered By: [place] Mirza on 12-11-2024 Bacteria LM.HPF (Urine sed) [#/Area] 2 /[HPF] None Seen [facility] Urine specific gravity measu rementOrdered By: [place] Mirza on 12-11-2024 Specific gravity (U) [Rel density] 1.025 1.002-1.030 [facility] Urine urobilinogen measureme ntOrdered By: [place] Mirza on 12-11-2024 Urobilinogen Ql (U) Normal mg/dl Normal [facility] White blood cell (WBC) count Ordered By: [place] on 12-11-2024 WBC (Bld) [#/Vol] 7.5 10*3/uL 4.4-11.0 [facility] White blood cell countOrdere d By: [place] on 12-11-2024 White blood cell count 10-25 SEEN /hpf 0-5 [facility] CNPNon 11-19-2024 CNPN Telephone (TANO) SHILPA HOANG ([id number]) 1995 F Date Time Provider Department 11/19/24 [...] tablet by mouth once daily. - PNV no.131-lneg-pyesbciuzql e 29-1 mg tab Take 1 tablet [...] Normal [facility] [id number] PLUSon 11-19-2024 Cell-free DNA./Cell-free DNA.total Dosage of chromosome-specific cfDNA (cfDNA) [Molar fraction] 16% Normal [facility] Comment on above: Order Comment: Speci men Type: BLOOD SPECIMENOrdering Facility: [facility] Address: [address] [place] [address] Performed By: #### M AT21 ####[employer] LABCLIA [id number] [place] [address] Chr 13+18+21+X+Y aneuploidy Dosage of chromosome-specific cfDNA Ql (cfDNA) Negative Normal [facility] Comment on above: Order Comment: Speci men Type: BLOOD SPECIMENOrdering Facility: [facility] Address: [address] [place] [address] Performed By: #### M AT21 ####[employer] LABCLIA [id number] [place] [address] Chr 21 trisomy Dosage of chromosome-specific cfDNA Ql (cfDNA) Negative Normal [facility] Comment on above: Order Comment: Speci men Type: BLOOD SPECIMENOrdering Facility: [facility] Address: [address] [place] [address] Performed By: #### M AT21 ####[employer] LABCLIA [id number] [place] [address] Chr X and Y aneuploidy risk Sequencing Ql (cfDNA) [Interp] Not detected Normal [facility] Comment on above: Order Comment: Speci men Type: BLOOD SPECIMENOrdering Facility: [facility] Address: [address] [place] [address] Result Comment: Not Detected Not Detected Performed By: #### M AT21 ####[facility] LABCLIA [id number] [place] [address] Citation Jose (Reference lab test) Comment Normal [facility] Comment on above: Order Comment: Speci men Type: BLOOD SPECIMENOrdering Facility: [facility] Address: [address] [place] [address] Result Comment: 1. P sonali HAYS, et al. Jahaira Med. 2012;14(3):296-305. 2. Latha WADE et al. Prenat Diag. 2013;33(6):591-597. 3. Bryn C, et al. Clin Chem. 2015 Apr;61(4):608-616. 4. Paul HAYS et al. Jahaira Med. 2011;13(11):913-920. 5. ACOG/SM[facility] Practice Bulletin No. 226, Mar 2020. Performed By: #### M AT21 ####[facility] LABCLIA [id number] [place] [address] Gestational age Estimated from conception date Marquez Normal [facility] Comment on above: Order Comment: Speci men Type: BLOOD SPECIMENOrdering Facility: [facility] Address: [address] [place] [address] Performed By: #### M AT21 ####[facility] LABCLIA [id number] [place] [address] GESTATIONALAGE AGE > OR = 9W Yes Normal [facility] Comment on above: Order Comment: Speci men Type: BLOOD SPECIMENOrdering Facility: [facility] Address: [address] [place] [address] Performed By: #### M AT21 ####[facility] LABCLIA [id number] [place] [address] Laboratory comment Jose (Report) Comment Normal [facility] Comment on above: Order Comment: Speci men Type: BLOOD SPECIMENOrdering Facility: [facility] Address: [address] [place] [address] Result Comment: The MaterniT(R) 21 PLUS laboratory-developed test (LDT) analyzes circulating cell-free DNA from a maternal blood sample. This test is used for screening purposes and not diagnostic. Clinical correlation is recommended. Validation data on twin pregnancies is limited and the ability of this test to detect aneuploidy in higher multiple gestations has not yet been validated. Performed By: #### M AT21 ####[employer] LABCLIA [id number] [place] [id number] band director name Nom (Provider) Comment Normal [facility] Comment on above: Order Comment: Speci men Type: BLOOD SPECIMENOrdering Facility: [facility] Address: [address] [place] [address] Result Comment: This specimen showed an expected representation of chromosome 21, 18 and 13 material. Clinical correlation is suggested. Comment Torito Butler MD, PhD, Director, [employer] Performed By: #### M AT21 ####[employer] LABCLIA [id number] [place] [address] LIMITATIONS OF THE TEST Comment Normal [facility] Comment on above: Order Comment: Speci men Type: BLOOD SPECIMENOrdering Facility: [facility] Address: [address] [place] [address] Result Comment: Kayli talbot the results of [...] and Fragmin(R)). Performed By: #### M AT21 ####[employer] [id number] [place] [address] Monosomy X risk Dosage of chromosome-specific cfDNA Ql (Plasma cell-free+WBC DNA) [Interp] Not detected Normal [facility] Comment on above: Order Comment: Costa bergeron Type: BLOOD SPECIMENOrdering Facility: [facility] Address: [address] [place] [address] Performed By: #### M AT21 ####[employer] LABCLIA [id number] [place] [address] NEGATIVE PREDICTIVE VALUE Note Normal [facility] Comment on above: Order Comment: Costa bergeron Type: BLOOD SPECIMENOrdering Facility: [facility] Address: [address] [place] [address] Result Comment: The Negative Predictive Value (NPV) for trisomy 21, 18, and 13 is greater than 99%. The NPV for SCA and ESS cannot be calculated as SCA and ESS are only reported when an abnormality is detected. Performed By: #### M AT21 ####[employer] [place] [facility]MISS[facility] [id number] [facility] [address] PERFORMANCE CHARACTERISTICS Note Normal [facility] Comment on above: Order Comment: Speci men Type: BLOOD SPECIMENOrdering Facility: [facility] Address: [address] [place] [address] Result Comment: ! Sex ! Accuracy: 99.4% [...] gestation only. Performed By: #### M AT21 ####[employer] LABCLIA [id number] [place] [address] POSITIVE PREDICTIVE VALUE N/A Normal [facility] Comment on above: Order Comment: Costa bergeron Type: BLOOD SPECIMENOrdering Facility: [facility] Address: [address] [place] [address] Performed By: #### M AT21 ####[employer] LABCLIA [id number] [place] [address] Reference Lab Test Method Comment Normal [facility] Comment on above: Order Comment: Costa bergeron Type: BLOOD SPECIMENOrdering Facility: [facility] Address: [address] [place] [address] Result Comment: See Notes Circulating cell-free DNA [...] and 22. Performed By: #### M AT21 ####[employer] LABCLIA [id number] [place] [address] Service comment (Unsp spec) [Interp] Comment Normal [facility] Comment on above: Order Comment: Speci men Type: BLOOD SPECIMENOrdering Facility: [facility] Address: [address] [place] [address] Result Comment: See Notes [employer]. is a subsidiary of [employer], using the brand [employer]. This test was developed and its performance characteristics determined by [employer]. It has not been cleared or approved by the Food and Drug Administration. This laboratory is certified under the Clinical Laboratory Improvement Amendments (CLIA) as qualified to perform high complexity clinical laboratory testing and accredited by the [employer] [place] [employer] (CAP). If there is future clinical need for adding MaterniT GENOME testing, this specimen will be available until term. [facility] samples will not be retained beyond 60 days. [facility] patients will have to send a new sample for re-sequencing ([facility] Test Code: [id number]). Performed By: #### M AT21 ####[employer] LABCLIA [id number] [place] [address] Sex Dosage of chromosome-specific cfDNA Nom (cfDNA) Comment Normal [facility] Comment on above: Order Comment: Speci men Type: BLOOD SPECIMENOrdering Facility: [facility] Address: [address] [place], [place] [address] Result Comment: Cons istent with Female Performed By: #### M AT21 ####[employer] LABCLIA [id number] [place] [address] Test performance information Jose (Unsp spec) Comment Normal [facility] Comment on above: Order Comment: Speci men Type: BLOOD SPECIMENOrdering Facility: [facility] Address: [address] [place], [place] [address] Result Comment: The performance characteristics of the MaterniT(R) 21 PLUS laboratory-developed test (LDT) have been determined in a clinical validation study with women at increased risk for chromosomal aneuploidy.[1-4] Performed By: #### M AT21 ####[employer]-Keen SystemsRP LABCLIA [id number] [place] [address] Trisomy 13 risk Dosage of chromosome-specific cfDNA Ql (cfDNA) [Interp] Negative Normal [facility] Comment on above: Order Comment: Speci men Type: BLOOD SPECIMENOrdering Facility: [facility] Address: [address] [place] [address] Performed By: #### M AT21 ####[employer] LABCLIA [id number] [place] [address] Trisomy 18 risk Dosage of chromosome-specific cfDNA Ql (Plasma cell-free+WBC DNA) [Interp] Negative Normal [facility] Comment on above: Order Comment: Speci men Type: BLOOD SPECIMENOrdering Facility: [facility] Address: [address] [place] [address] Performed By: #### M AT21 ####[employer] LABCLIA [id number] [place] [address] C. trachomatis+N. gonorrhoea e DNA OFELIA+probe Ql (Unsp spec)on 11-18-2024 C. trachomatis rRNA OFELIA+probe Ql (Unsp spec) Not detected Normal Not detected [facility] Comment on above: Order Comment: Speci men Type: SWABOrdering Facility: [facility] Address: [address] [place] [address] Performed By: #### 3 6902-5 ####[facility] LABCLIA [id number] [address] [place] N. gonorrhoeae rRNA OFELIA+probe Ql (Unsp spec) Not detected Normal Not detected [facility] Comment on above: Order Comment: Speci men Type: SWABOrdering Facility: [facility] Address: [address] [place] [address] Performed By: #### 3 6902-5 ####[facility] LABCLIA [id number] [place] [address] [place] POC 3D MODELER ULTRASOUNDon 11-19-19 Indication Viability; confirm cardiac activity, [...] Read By: Johana Turner CNM MATERNAL MEDICINE [facility] Radiology Study observation (narrative) [facility] CBC panel Auto (Bld)on 11-11 Erythrocyte distribution width (RBC) [Ratio] 15.1 % High 11.5-15.0 [facility] Comment on above: Order Comment: Speci elyssa Type: BLOOD SPECIMEN [facility] Address: [address] [place] [address] Performed By: #### 2 4323-8 #### [facility] CLIA [id number] [place] Hematocrit (Bld) [Volume fraction] 34.1 % Low 36.0-46.0 [facility] Comment on above: Order Comment: Costa bergeron Type: BLOOD SPECIMEN [facility] Address: [address] [place] [address] Performed By: #### 2 4323-8 #### [facility] CLIA [id number] [address] [place] [address] [place] Hemoglobin (Bld) [Mass/Vol] 11.0 g/dL Low 11.5-15.5 [facility] Comment on above: Order Comment: Speci men Type: BLOOD SPECIMEN [facility] Address: [address] [place] [address] Performed By: #### 2 4323-8 #### [facility] CLIA [id number] [address] [place] [address] [place] MCH (RBC) [Entitic mass] 26.8 pg Normal 26.0-34.0 [facility] Comment on above: Order Comment: Speci men Type: BLOOD SPECIMEN [facility] Address: [address] [place] [address] Performed By: #### 2 4323-8 #### [facility] [id number] [address] [place] [address] STATES [facility] MCHC (RBC) [Mass/Vol] 32.3 g/dL Normal 30.5-36.0 [facility] Comment on above: Order Comment: Speci men Type: BLOOD SPECIMEN [facility] Address: [address] [place] [address] Performed By: #### 2 4323-8 #### [facility] [id number] [address] [place] [address] [place] MCV (RBC) [Entitic vol] 83.2 fL Normal 80.0-100.0 C [facility] Comment on above: Order Comment: Speci men Type: BLOOD SPECIMEN [facility] Address: [address] [place] [address] Performed By: #### 2 4323-8 #### [facility] [id number] [address] [place] [address] [place] Nucleated RBC (Bld) [#/Vol] 10*3/uL Normal <0.01 [facility] Comment on above: Order Comment: Speci men Type: BLOOD SPECIMEN [facility] Address: [address] [place] [address] Performed By: #### 2 4323-8 #### [facility] CLIA [id number] [address] [place] [address] [place] Platelet mean volume (Bld) [Entitic vol] 10.9 fL Normal 9.0-12.7 [facility] Comment on above: Order Comment: Speci men Type: BLOOD SPECIMEN [facility] Address: [address] [place] [address] Performed By: #### 2 4323-8 #### [facility] CLIA [id number] [address] [place] [address] [place] Platelets (Bld) [#/Vol] 197 10*3/uL Normal 150-400 [facility] Comment on above: Order Comment: Speci men Type: BLOOD SPECIMEN [facility] Address: [address] [place] [address] Performed By: #### 2 4323-8 #### [facility] CLIA [id number] [address] [place] [address] [place] RBC (Bld) [#/Vol] 4.10 10*6/uL Normal 3.90-5.20 [facility] Comment on above: Order Comment: Speci men Type: BLOOD SPECIMEN [facility] Address: [address] [place] [address] Performed By: #### 2 4323-8 #### [facility] CLIA [id number] [address] [place] [address] [place] WBC (Bld) [#/Vol] 6.72 10*3/uL Normal 3.70-11.00 [facility] Comment on above: Order Comment: Speci men Type: BLOOD SPECIMEN [facility] Address: [address] [place] [address] Performed By: #### 2 4323-8 #### [facility] CLIA [id number] [address] [place] [address] [place] HBV surface Ag Ser Qlon 10-22 HBV surface Ag Ql (S) Negative Normal Negative [facility] Comment on above: Order Comment: Speci men Type: BLOOD SPECIMEN [facility] Address: [address] [place] [address] Performed By: #### 2 4323-8 #### [facility] CLIA [id number] [address] [place] [address] [place] HCV Ab Ser Qlon 11-11-2024 HCV Ab Ql (S) Negative Normal Negative [facility] Comment on above: Order Comment: Speci men Type: BLOOD SPECIMENOrdering Facility: [facility] Address: [address] [place] [address] Result Comment: The result suggests no evidence of infection with Hepatitis C virus. Should recent infection be suspected, repeat testing may be considered 4-6 weeks after this draw. Performed By: #### 1 6128-1 ####[facility] LABCLIA [id number] [place] [address] [place] HIV 1+2 Ab IA Qlon HIV 1 and 2 Ab IA.rapid Nom (S/P/Bld) Normal [facility] Comment on above: Order Comment: Speci men Type: BLOOD SPECIMEN [facility] Address: [address] [place] [address] Result Comment: Test not indicated. Performed By: #### 2 4323-8 #### [facility] CLIA [id number] [address] [place] [address] [place] HIV 1+2 Ab+HIV1 p24 Ag IA Ql Non-Reactive Normal Nonreactive [facility] Comment on above: Order Comment: Speci men Type: BLOOD SPECIMEN [facility] Address: [address] [place] [address] Performed By: #### 2 4323-8 #### [facility] [id number] [address] [place] [address] [place] HIV immunoassay testing algorithm interpretation (S/P/Bld) [Interp] Normal [facility] Comment on above: Order Comment: Speci men Type: BLOOD SPECIMEN [facility] Address: [address] [place] [address] Result Comment: No e vidence of HIV-1 or HIV-2 infection. Should recent infection be suspected, repeat testing may be considered 2-3 weeks after this draw. [place] Rev. Code 3701.243(E): This information has been [...] results or diagnoses. Performed By: #### 2 4323-8 #### [facility] [id number] [address] [place] [address] [place] HbA1c (Bld)on 11-11-2024 Average glucose Estimated from glycated hemoglobin (Bld) [Mass/Vol] 88 mg/dL Normal [facility] Comment on above: Order Comment: Speci men Type: BLOOD SPECIMENOrdering Facility: [facility] Address: [address] [place] [address] Result Comment: eAG: (Estimated average glucose) is a calculated value from HgbA1c and is computer help desk representative of the average blood glucose level in the last 2-3 month period. Performed By: #### 5 5454-3 ####[facility] LABCLIA [id number] [place] [address] [place] HbA1c (Bld) [Mass fraction] 4.7 % Normal 4.3-5.6 [facility] Comment on above: Order Comment: Specraul bergeron Type: BLOOD SPECIMENOrdering Facility: [facility] Address: [address] [place] [address] Result Comment: Amer [place] Diabetes Association guidelines indicate that patients with HgbA1c in the range 5.7-6.4% are at increased risk for development of diabetes, and intervention by lifestyle modification may be beneficial. HgbA1c greater or equal to 6.5% is considered diagnostic of diabetes. Performed By: #### 5 5454-3 ####[facility] LABCLIA [id number] [place] [address] [place] RUBELLA IGG ANTIBODYon 11-11 RUBELLA IGG AB, QUAL Positive Normal Positive [facility] Comment on above: Order Comment: Costa bergeron Type: BLOOD SPECIMENOrdering Facility: [facility] Address: [address] [place] [address] Result Comment: The result suggests recent or past exposure to Rubella virus or history of Rubella vaccination. Positive result may also be seen due to presence of passively-transferred antibodies. Please correlate with patient's history. Performed By: #### R UBIGG ####[facility] LABCLIA [id number] [place] [address] [place] Reagin and Treponema pallidu m IgG and IgM [Interp]on 11-11-2024 T. pallidum IgG+IgM IA Ql (S) Non-Reactive Normal Nonreactive [facility] Comment on above: Order Comment: Costa bergeron Type: BLOOD SPECIMEN [facility] Address: [address] [place] [address] Performed By: #### 2 4323-8 #### [facility] CLIA [id number] [address] [place] [address] [place] Reagin+T pallidum IgG+IgM Se rPl-Impon 11-11-2024 Reagin and Treponema pallidum IgG and IgM [Interp] Cannot exclude recent Treponemal infection if specimen collected within 7-10 days after appearance of suspect lesions or 2-3 weeks after an exposure. Clinical correlation is required. Normal [facility] Comment on above: Order Comment: Speci men Type: BLOOD SPECIMEN [facility] Address: [address] [place] [address] Performed By: #### 2 4323-8 #### [facility] CLIA [id number] [address] [place] [address] [place] TYPE + SCREEN PRENATALon ABO A Normal [facility] Comment on above: Order Comment: Speci men Type: BLOOD SPECIMENOrdering Facility: [facility] Address: [address] [place] [address] Performed By: #### T SPN ####[facility] BLOOD BANKCLIA [id number] [place] [address] [place] Rh Nom (Bld) Positive Normal [facility] Comment on above: Order Comment: Speci men Type: BLOOD SPECIMENOrdering Facility: [facility] Address: [address] [place] [address] Performed By: #### T SPN ####[facility] MA[facility] BLOOD BANKCLIA [id number] [place] [id number] [place] TYPE AND SCREEN EXPIRATION 11/14/2024 23:59 Normal [facility] Comment on above: Order Comment: Speci men Type: BLOOD SPECIMENOrdering Facility: [facility] Address: [address] [place] [address] Performed By: #### T SPN ####[facility] MA[facility] BLOOD BANKCLIA [id number] [place] [id number] [place] Transvaginal w/Preg USon Transvaginal w/Preg [facility] [address] [place], [place] [id number] Transvaginal w/Preg MR#: [id number] Acct: [id number] Name: SHILPA HOANG Rep #: [id number] : 1995 F 28 From: Keyon Tapia MD PCP: Dr. David Mckinney MD Status: REG CLI Study: Transvaginal w/Preg US Date of Exam: 10/21/24 Exam# [id number] Ordering Dr: Rizwan Cárdenas DO PROCEDURE: TRANSVAGINAL [...] weeks 1 day, JANE 05/25/2025. Reading Location: [facility] CC: Dr. David Mckinney MD; Rizwan Cárdenas DO Material Man: Signed Normal [facility] Urine Cultureon 04-24-2025 URC Below infection leve l. Mixed Gram Positive Organisms [place] Count 1000-10,000 MIXC Mixed contaminants. Submit a new specimen if indicated. Normal [facility] Comment on above: Performed By: #### L 505.5000 #### [facility] Laboratory [address] [place], [address] CNPNon 10-13-2024 CNPN Telephone (OBGYWM) SHILPA HOANG ([id number]) 1995 F Date Time Provider Department 10/13/24 SARAH HUBER OBGYWM During your visit today, we recorded the following information about you: Emily Scott LPN 10/13/2024 4:39 PM Signed Lmp: 08/18/24 and was seen at [facility] for cramping yesterday and was told she was . Patient dx w/ UTI and given amoxicillin and zofran [place] [address] and ED doctor told her she was [...] Date Reviewed: 09/16/2024 Reviewed by: Hortencia Gould APRN.CAMPAIGN MANAGEMENT SPECIALIST - Fully Assessed Reason for Visit: Patient [...] Auto (Unsp spec) [#/Vol] 2.83 10*3/uL 0.83-4.51 [facility] Absolute neutrophil countOrd ered By: Rizwan Cárdenas on 10-12-2024 Neutrophils (Bld) [#/Vol] 4.0 10*3/uL 2.0-7.7 [facility] Amorphous sediment detection in urine sediment by light microscopyOrdered By: Rizwan Cárdenas on 10-12-2024 Amorphous sediment LM Ql (Urine sed) 2+ [facility] Anion gap in Serum or Plasma Ordered By: Rizwan Cárdenas on 10-12-2024 Anion gap [Moles/Vol] 11 mmol/L 5-15 [facility] Automated lymphocyte count a s percentage of total leukocytesOrdered By: Rizwan Cárdenas on 10-12-2024 Lymphocytes/100 WBC Auto (Unsp spec) 35.3 % 19-41 [facility] [id number] 10-12-2024 ABO and Rh group Nom (Bld) Blood group A Rh(D) positive Normal [facility] Comment on above: Performed By: #### M 100.2200, L400.0001 #### [facility] Laboratory [address] [place], [address] BUN/creatinine ratioOrdered By: Rizwan Cárdenas on 10-12-2024 Urea nitrogen/Creatinine [Mass ratio] 17.4 mg/mg - [facility] Basic Metabolic Profile (BMP )on 10-12-2024 BUN/CRE 17.4 RATIO Normal - [facility] Comment on above: Performed By: #### M 100.2200, L400.0001 #### [facility] [address] [place], [address] Calcium [Mass/Vol] 9.2 mg/dL Normal 7.6-11.0 [facility] Comment on above: Performed By: #### M 100.2200, L400.0001 #### [facility] [address] [place], [address] Chloride [Moles/Vol] 104 mmol/L Normal 98-108 [facility] Comment on above: Performed By: #### M 100.2200, L400.0001 #### [facility] [address] [place], [address] CO2 [Moles/Vol] 22.3 mmol/L Normal 21.0-32.0 [facility] Comment on above: Performed By: #### M 100.2200, L400.0001 #### [facility] [address] [place], [address] Creatinine [Mass/Vol] 0.87 mg/dL Normal 0.70-1.20 [facility] Comment on above: Performed By: #### M 100.2200, L400.0001 #### [facility] [address] [place], [address] ECRCL 97.15 ml/min Normal 50-250 [facility] Comment on above: Performed By: #### M 100.2200, L400.0001 #### [facility] [address] [place], [address] GAP 11 Normal 5-15 [facility] Comment on above: Performed By: #### M 100.2200, L400.0001 #### [facility] [address] [place], [address] GFR/1.73 sq M.predicted among non-blacks MDRD (S/P/Bld) [Vol rate/Area] 94 mL/min/{1.73_m2} Normal >60 [facility] Comment on above: Result Comment: mL/m in/1.73m2 CKD-EPI Creatinine Equation (2020) Performed By: #### M 100.2200, L400.0001 #### [facility] [address] [place], [address] Glucose [Mass/Vol] 100 mg/dL High 70-99 [facility] Comment on above: Performed By: #### M 100.2200, L400.0001 #### [facility] [address] [place], [address] Potassium [Moles/Vol] 4.0 mmol/L Normal 3.3-5.1 [facility] Comment on above: Performed By: #### M 100.2200, L400.0001 #### [facility] [address] [place], [address] Sodium [Moles/Vol] 137 mmol/L Normal 133-145 [facility] Comment on above: Performed By: #### M 100.2200, L400.0001 #### [facility] [address] [place], [address] Urea nitrogen [Mass/Vol] 15 mg/dL Normal 4-19 [facility] Comment on above: Performed By: #### M 100.2200, L400.0001 #### [facility] [address] [place], [address] Basophil percentageOrdered B y: Rizwan Cárdenas on 10-12-2024 Basophils/100 WBC (Bld) 0.5 % 0-1 [facility] Bilirubin Test strip Ql (U)O rdered By: Rizwan Cárdenas on 10-12-2024 Bilirubin Ql (U) Negative Negative [facility] Bilirubin directOrdered By: Rizwan Cárdenas on 10-12-2024 Bilirubin.direct [Mass/Vol] 0.11 mg/dL 0.00-0.30 [facility] Bilirubin, totalOrdered By: Rizwan Cárdenas on 10-12-2024 Bilirubin [Mass/Vol] 0.25 mg/dL 0.00-1.30 [facility] CBC W/Diff, Automatedon 09-22 Absolute Lymph 2.83 X10 3/uL Normal 0.83-4.51 [facility] Comment on above: Performed By: #### M 100.2200, L400.0001 #### [facility] [address] [place], [address] Absolute Neut 4.0 X10 3/uL Normal 2.0-7.7 [facility] Comment on above: Performed By: #### M 100.2200, L400.0001 #### [facility] [address] [place], [address] Basophils/100 WBC (Bld) 0.5 % Normal 0-1 [facility] Comment on above: Performed By: #### M 100.2200, L400.0001 #### [facility] [address] [place], [address] Eosinophils/100 WBC (Bld) 6.5 % High 0-5 [facility] Comment on above: Performed By: #### M 100.2200, L400.0001 #### [facility] [address] [place], [address] Erythrocyte distribution width (RBC) [Ratio] 14.3 % Normal 11.6-14.6 [facility] Comment on above: Performed By: #### M 100.2200, L400.0001 #### [facility] [address] [place], [address] Hematocrit (Bld) [Volume fraction] 37.6 % Normal 37-47 [facility] Comment on above: Performed By: #### M 100.2200, L400.0001 #### [facility] [address] [place], [address] Hemoglobin (Bld) [Mass/Vol] 12.2 g/dL Normal 12.0-15.0 [facility] Comment on above: Performed By: #### M 100.2200, [id number] #### [facility] [address] [place], [address] IG% 0.200 Normal 0.0-0.9 [facility] Comment on above: Result Comment: IG% - Immature Granulocytes (promyelocytes, myelocytes and metamyelocytes) > 1% indicates that a LEFT SHIFT is Present. Performed By: #### M 100.2200, [id number] #### [facility] [address] [place], [address] Lymphocytes/100 WBC (Bld) 35.3 % Normal 19-41 [facility] Comment on above: Performed By: #### M 100.2200, [id number] #### [facility] [address] [place], [address] MCH (RBC) [Entitic mass] 26.1 pg Low 27.0-32.0 [facility] Comment on above: Performed By: #### M 100.2200, [id number] #### [facility] [address] [place], [address] MCHC (RBC) [Mass/Vol] 32.4 g/dL Normal 32-36 [facility] Comment on above: Performed By: #### M 100.2200, [id number] #### [facility] [address] [place], [address] MCV (RBC) [Entitic vol] 80.5 fL Low 81-99 [facility] Comment on above: Performed By: #### M 100.2200, [id number] #### [facility] [address] [place], [address] Monocytes/100 WBC (Bld) 7.4 % Normal 0-10 [facility] Comment on above: Performed By: #### M 100.2200, L400.0001 #### [facility] [address] [place], [address] Neutrophils/100 WBC (Bld) 50.1 % Normal 47-70 [facility] Comment on above: Performed By: #### M 100.2200, L400.0001 #### [facility] [address] [place], [address] Nucleated RBC (Bld) [#/Vol] 0 10*3/uL Normal 0-5 [facility] Comment on above: Performed By: #### M 100.2200, [id number] #### [facility] [address] [place], [address] Platelet mean volume (Bld) [Entitic vol] 11.3 fL Normal 6.2-12.0 [facility] Comment on above: Performed By: #### M 100.2200, [id number] #### [facility] [address] [place], [address] Platelets (Bld) [#/Vol] 213 10*3/uL Normal 150-450 [facility] Comment on above: Performed By: #### M 100.2200, L400.0001 #### [facility] [address] [place], [address] RBC (Bld) [#/Vol] 4.67 10*6/uL Normal 4.2-5.4 [facility] Comment on above: Performed By: #### M 100.2200, L400.0001 #### [facility] [address] [place], [address] RDW SD 41.6 fl Normal 35.1-43.9 [facility] Comment on above: Performed By: #### M 100.2200, L400.0001 #### [facility] [address] [place], [address] WBC (Bld) [#/Vol] 8.0 10*3/uL Normal 4.4-11.0 [facility] Comment on above: Performed By: #### M 100.2200, [id number] #### [facility] [address] [place], [address] Carbon dioxide, total [Moles /volume] in Central venous bloodOrdered By: Rizwan Cárdenas on 10-12-2024 CO2 [Moles/Vol] 22.3 mmol/L 21.0-32.0 [facility] Chloride assayOrdered By: Chelsi Cárdenas on 10-12-2024 Chloride [Moles/Vol] 104 mmol/L 98-108 [facility] Emergency Department Summary on 10-12-2024 Emergency Department Summary [facility] Medical Records Department [address] [place] [address] Emergency Department Summary 10/12/24 MR#: [id number] Acct: [id number] Name: SHILPA HOANG Rep #: [id number] : 1995 28 From: Rizwan Cárdenas DO [...] to this comes in for evaluation. [facility] Medical History (Updated 10/12/24 @ 02:[address] Rizwan Cárdenas DO) (spontaneous vaginal delivery) Depression Family history of hearing loss at age younger than 7 years Gestational HTN Stillborn, normal History of placental abruption Trauma depression Anxiety Cervical myofascial strain Home Medications ???Medication ???Instructions ???Recorded ???Last Taken ???Type [id number] 1 mg 1 tab PO DAILY 09/13/21 [...] CN's II-XI (more content not included)... Normal [facility] Eosinophil percentageOrdered By: Rizwan Cárdenas on 10-12-2024 Eosinophils/100 WBC (Bld) 6.5 % High 0-5 [facility] Epithelial cells.squamous LM Ql (Urine sed)Ordered By: Rizwan Cárdenas on 10-12-2024 Epithelial cells.squamous LM.HPF (Urine sed) [#/Area] 25 /[HPF] 5-10 [facility] Erythrocyte distribution wid th (RBC) [Ratio]Ordered By: Rizwan Cárdenas on 10-12-2024 Erythrocyte distribution width (RBC) [Entitic vol] 41.6 fL 35.1-43.9 [facility] Erythrocyte distribution wid th ratioOrdered By: Rizwan Cárdenas on 10-12-2024 Erythrocyte distribution width (RBC) [Ratio] 14.3 % 11.6-14.6 [facility] Erythrocyte distribution wid th standard deviationOrdered By: Rizwan Cárdenas on 10-12-2024 Erythrocyte distribution width (RBC) [Ratio] 41.6 fl 35.1-43.9 [facility] Estimation of creatinine morgan aranceOrdered By: Rizwan Cárdenas on 10-12-2024 Estimated Creatinine Clearance Calc 97.15 ml/min 50-250 [facility] GFR/1.73 sq M.predicted ankita g non-blacks MDRD (S/P/Bld) [Vol rate/Area]Ordered By: Rizwan Cárdenas on 10-12-2024 Estimated GFR (MDRD) Non-Af Amer 94 >60 [facility] Comment on above: mL/min/1.73m2 CKD-EP I Creatinine Equation (2020) Glomerular filtration rate ( GFR) estimation/1.73 sq m using serum, plasma, or whole bOrdered By: Rizwan Cárdenas on 10-12-2024 GFR/1.73 sq M.predicted among non-blacks MDRD (S/P/Bld) [Vol rate/Area] 94 mL/min/{1.73_m2} >60 [facility] Comment on above: mL/min/1.73m2 CKD-EP I Creatinine Equation (2020) Glucose Ql (U)Ordered By: Chelsi Cárdenas on 10-12-2024 Urine Glucose (UA) Normal mg/dl Normal [facility] HCG ( test) QlOrder ed By: Rizwan Cárdenas on 10-12-2024 Human Chorionic Gonadotropin, Quant 21308 mIU/mL High <9 [facility] Comment on above: Gestational Age0.2-1 Week: 5-50 mIU/mL1-2 Weeks: 50-500 mIU/mL2-3 Weeks: 100-5000 mIU/mL3-4 Weeks: 500-10,000 mIU/mL4-5 Weeks:1000-50,000 mIU/mL5-6 Weeks: 10,000-100,000 mIU/mL6-8 Weeks: 15,000-200,000 mIU/mL2-3 Months:10,000-100,000 mIU/mL Hematocrit Auto (Bld) [Volum e fraction]Ordered By: Rizwan Cárdenas on 10-12-2024 Hematocrit (Bld) [Volume fraction] 37.6 % 37-47 [facility] Hemoglobin measurementOrdere d By: Rizwan Cárdenas on 10-12-2024 Hemoglobin (Bld) [Mass/Vol] 12.2 g/dL 12.0-15.0 [facility] Immature granulocytes/100 WB C Auto (Bld)Ordered By: Rizwan Cárdenas on 10-12-2024 Immature granulocytes/100 WBC (Bld) 0.200 % 0.0-0.9 [facility] Comment on above: IG% - Immature Granu locytes (promyelocytes, myelocytes and metamyelocytes) > 1% indicates that a LEFT SHIFT is Present. Ketones Test strip Ql (U)Ord ered By: Rizwan Cárdenas on 10-12-2024 Ketones Ql (U) Negative Negative [facility] Laboratory - Chemistry and C hemistry - challengeOrdered By: Rizwan Cárdenas on 10-12-2024 AST [Catalytic activity/Vol] 14 U/L <32 [facility] Lipaseon 10-12-2024 Lipase [Catalytic activity/Vol] 26 U/L Normal 13-75 [facility] Comment on above: Result Comment: Raj redman note: LIPASE revised reference range effective 22. New Lipase methodology. Expected to produce lower values than the previous assay method. NEW Reference Range: 13 - 75 U/L Performed By: #### M 100.2200, L400.0001 #### [facility] [address] [place], [address] Lipase measurementOrdered By : Rizwan Cárdenas on 10-12-2024 Lipase [Catalytic activity/Vol] 26 U/L 13-75 [facility] Comment on above: Please note:LIPASE r evised reference range effective 22. New Lipase methodology. Expected to produce lower values than the previous assay method. NEW Reference Range: 13 - 75 U/L Liver Profileon 10-12-2024 Albumin [Mass/Vol] 4.3 g/dL Normal 3.5-5.0 [facility] Comment on above: Performed By: #### M 100.2200, [id number] #### [facility] [address] [place], [address] ALK PHOS 92 U/L Normal 35-104 [facility] Comment on above: Performed By: #### M 100.2200, L400.0001 #### [facility] [address] [place], [address] ALT [Catalytic activity/Vol] 14 U/L Normal <=34 [facility] Comment on above: Performed By: #### M 100.2200, [id number] #### [facility] [address] [place], [address] AST [Catalytic activity/Vol] 14 U/L Normal <=31 [facility] Comment on above: Performed By: #### M 100.2200, [id number] #### [facility] [address] [place], [address] Bilirubin [Mass/Vol] 0.25 mg/dL Normal 0.00-1.30 [facility] Comment on above: Performed By: #### M 100.2200, [id number] #### [facility] [address] [place], [address] Bilirubin.direct [Mass/Vol] 0.11 mg/dL Normal 0.00-0.30 [facility] Comment on above: Performed By: #### M 100.2200, [id number] #### [facility] [address] [place], [address] Globulin (S) [Mass/Vol] 3.1 g/dL Normal 2.2-4.2 [facility] Comment on above: Performed By: #### M 100.2200, L400.0001 #### [facility] [address] [place], [address] T PROT 7.4 g/dL Normal 5.9-8.4 [facility] Comment on above: Performed By: #### M 100.2200, [id number] #### [facility] [address] [place], [address] Lymphocytes Auto (Unsp spec) [#/Vol]Ordered By: Rizwan Cárdenas on 10-12-2024 Lymphocytes (Bld) [#/Vol] 2.83 10*3/uL 0.83-4.51 [facility] Lymphocytes/100 WBC Auto (Un sp spec)Ordered By: Rizwan Cárdenas on 10-12-2024 Lymphocytes/100 WBC (Bld) 35.3 % 19-41 [facility] MCV (mean corpuscular volume ) determinationOrdered By: Rizwan Cárdenas on 10-12-2024 MCV (RBC) [Entitic vol] 80.5 fL Low 81-99 [facility] Mean corpuscular hemoglobin (MCH) determinationOrdered By: Rizwan Cárdenas on 10-12-2024 MCH (RBC) [Entitic mass] 26.1 pg Low 27.0-32.0 [facility] Mean corpuscular hemoglobin concentration (MCHC) determinationOrdered By: Rizwan Cárdenas on 10-12-2024 MCHC (RBC) [Mass/Vol] 32.4 g/dL 32-36 [facility] Mean platelet volume determi nationOrdered By: Rizwan Cárdenas on 10-12-2024 Platelet mean volume (Bld) [Entitic vol] 11.3 fL 6.2-12.0 [facility] Microscopic analysis of urin e for red blood cells (RBC)Ordered By: Rizwan Cárdenas on 10-12-2024 Microscopic analysis of urine for red blood cells (RBC) 0 SEEN /hpf 0-5 [facility] Urine RBC 0 SEEN /hpf 0-5 [facility] Monocyte percentageOrdered B y: Rizwan Cárdenas on 10-12-2024 Monocytes/100 WBC (Bld) 7.4 % 0-10 [facility] Mucus LM Ql (Urine sed)Order ed By: Rizwan Cárdenas on 10-12-2024 Mucus Ql (Urine sed) 0 SEEN /hpf [facility] Neutrophil percentageOrdered By: Rizwan Cárdenas on 10-12-2024 Neutrophils/100 WBC (Bld) 50.1 % 47-70 [facility] Nitrite Test strip Ql (U)Ord ered By: Rizwan Cárdenas on 10-12-2024 Nitrite Ql (U) Negative Negative [facility] Nucleated red blood cell per centageOrdered By: iRzwan Cárdenas on 10-12-2024 Nucleated RBC/100 WBC (Bld) [Ratio] 0 % 0-5 [facility] Platelet countOrdered By: Chelsi Cárdenas on 10-12-2024 Platelets (Bld) [#/Vol] 213 10*3/uL 150-450 [facility] Potassium (Unsp spec) [Mass/ Vol]Ordered By: Rizwan Cárdenas on 10-12-2024 Potassium [Moles/Vol] 4.0 mmol/L 3.3-5.1 [facility] Potassium measurement (mass/ volume)Ordered By: Rizwan Cárdenas on 10-12-2024 Potassium (Unsp spec) [Mass/Vol] 4.0 mmol/L 3.3-5.1 [facility] Protein Test strip Ql (U)Ord ered By: Rizwan Cárdenas on 10-12-2024 Protein Ql (U) 15 mg/dl High Negative [facility] RBC Auto (Bld) [#/Vol]Ordere d By: Rizwan Cárdenas on 10-12-2024 RBC (Bld) [#/Vol] 4.67 10*6/uL 4.2-5.4 [facility] Serum creatinine measurement (mass/volume)Ordered By: Rizwan Cárdenas on 10-12-2024 Creatinine [Mass/Vol] 0.87 mg/dL 0.70-1.20 [facility] Serum globulin measurementOr dered By: Rizwan Cárdenas on 10-12-2024 Globulin (S) [Mass/Vol] 3.1 g/dL 2.2-4.2 [facility] Serum glucose measurement (m ass/volume)Ordered By: Rizwan Cárdenas on 10-12-2024 Glucose [Mass/Vol] 100 mg/dL High 70-99 [facility] Serum human chorionic gonado tropin detection for pregnancyOrdered By: Rizwan Cárdenas on 10-12-2024 HCG ( [place]l [address] mIU/mL High <9 [facility] Comment on above: Gestational Age0.2-1 Week: 5-50 mIU/mL1-2 Weeks: 50-500 mIU/mL2-3 Weeks: 100-5000 mIU/mL3-4 Weeks: 500-10,000 mIU/mL4-5 Weeks:1000-50,000 mIU/mL5-6 Weeks: 10,000-100,000 mIU/mL6-8 Weeks: 15,000-200,000 mIU/mL2-3 Months:10,000-100,000 mIU/mL Serum or plasma alanine rivero otransferase (ALT) measurementOrdered By: Rizwan Cárdenas on 10-12-2024 ALT [Catalytic activity/Vol] 14 U/L <35 [facility] Serum or plasma albumin roopa urement (mass/volume)Ordered By: Rizwan Cárdenas on 10-12-2024 Albumin [Mass/Vol] 4.3 g/dL 3.5-5.0 [facility] Serum or plasma alkaline robert sphatase measurementOrdered By: Rizwan Cárdenas on 10-12-2024 ALP [Catalytic activity/Vol] 92 U/L 35-104 [facility] Serum or plasma calcium roopa urement (mass/volume)Ordered By: Rizwan Cárdenas on 10-12-2024 Calcium [Mass/Vol] 9.2 mg/dL 7.6-11.0 [facility] Serum or plasma urea nitroge n measurement (mass/volume)Ordered By: Rizwan Cárdenas on 10-12-2024 Urea nitrogen [Mass/Vol] 15 mg/dL 4-19 [facility] Sodium levelOrdered By: Nav Cárdenas on 10-12-2024 Sodium [Moles/Vol] 137 mmol/L 133-145 [facility] Squamous epithelial cells de tection in urine sediment by light microscopyOrdered By: Rizwan Cárdenas on 10-12-2024 Epithelial cells.squamous LM Ql (Urine sed) 25-50 SEEN /hpf - [facility] Total proteinOrdered By: Giancarlo Cárdenas on 10-12-2024 Protein [Mass/Vol] 7.4 g/dL 5.9-8.4 [facility] Urinalysis, Completeon 10-12 AMORPHOUS 2+ Normal [facility] Comment on above: Order Comment: CLEAN CATCH Performed By: #### M 100.2200, [id number] #### [facility] [address] [place], [address] BACTERIA 2+ /hpf Normal None Seen [facility] Comment on above: Order Comment: CLEAN CATCH Performed By: #### M 100.2200, [id number] #### [facility] [address] [place], [address] EPI,SQUAMOUS 25-50 SEEN Normal - [facility] Comment on above: Order Comment: CLEAN CATCH Performed By: #### M 100.2200, [id number] #### [facility] [address] [place], [address] WBC >100 SEEN Normal 0-5 [facility] Comment on above: Order Comment: CLEAN CATCH Performed By: #### M 100.2200, [id number] #### [facility] [address] [place], [address] BILIRUBIN URINE Negative Normal Negative [facility] Comment on above: Order Comment: CLEAN CATCH Performed By: #### M 100.2200, [id number] #### [facility] [address] [place], [address] Clarity (U) Sl. Cloudy Normal Clear [facility] Comment on above: Order Comment: CLEAN CATCH Performed By: #### M 100.2200, [id number] #### [facility] [address] [place], [address] Color (U) Yellow Normal Yellow [facility] Comment on above: Order Comment: CLEAN CATCH Performed By: #### M 100.2200, [id number] #### [facility] [address] [place], [address] GLUCOSE, UR Normal Normal Normal [facility] Comment on above: Order Comment: CLEAN CATCH Performed By: #### M 100.2200, [id number] #### [facility] [address] [place], [address] KETONE UR Negative Normal Negative [facility] Comment on above: Order Comment: CLEAN CATCH Performed By: #### M 100.2200, L400.0001 #### [facility] [address] [place], [address] LEUK ESTERASE 500 /ul Abnormal Negative [facility] Comment on above: Order Comment: CLEAN CATCH Performed By: #### M 100.2200, [id number] #### [facility] [address] [place], [address] Mucus Ql (Urine sed) 0 SEEN Normal [facility] Comment on above: Order Comment: CLEAN CATCH Performed By: #### M 100.2200, [id number] #### [facility] [address] [place], [address] Nitrite Ql (U) Negative Normal Negative [facility] Comment on above: Order Comment: CLEAN CATCH Performed By: #### M 100.2200, [id number] #### [facility] [address] [place], [address] OCCULT BLOOD-UR Negative Normal Negative [facility] Comment on above: Order Comment: CLEAN CATCH Performed By: #### M 100.2200, [id number] #### [facility] [address] [place], [address] pH UR 6.5 Normal 5.0 - 8.0 [facility] Comment on above: Order Comment: CLEAN CATCH Performed By: #### M 100.2200, L400.0001 #### [facility] [address] [place], [address] PROT DIPSTX 15 mg/dl Abnormal Negative [facility] Comment on above: Order Comment: CLEAN CATCH Performed By: #### M 100.2200, [id number] #### [facility] [address] [place], [address] RBC 0 SEEN Normal 0-5 [facility] Comment on above: Order Comment: CLEAN CATCH Performed By: #### M 100.2200, L400.0001 #### [facility] [address] [place], [address] SP.GR. DIPSTX 1.015 Normal 1.002-1.030 [facility] Comment on above: Order Comment: CLEAN CATCH Performed By: #### M 100.2200, L400.0001 #### [facility] [address] [place], [address] UROBILI Normal Normal Normal [facility] Comment on above: Order Comment: CLEAN CATCH Performed By: #### M 100.2200, L400.0001 #### [facility] [address] [place], [address] Urine blood detectionOrdered By: Rizwan Cárdenas on 10-12-2024 Urine Occult Blood Negative Negative [facility] Urine clarityOrdered By: Giancarlo Cárdenas on 10-12-2024 Clarity (U) Sl. Cloudy Clear [facility] Urine color determinationOrd ered By: Rizwan Cárdenas on 10-12-2024 Color (U) Yellow Yellow [facility] Urine cultureOrdered By: Giancarlo Cárdenas on 10-12-2024 Bacteria identified Cx Nom (U) Positive Abnormal [facility] Urine glucose detectionOrder ed By: Rizwan Cárdenas on 10-12-2024 Glucose Ql (U) Normal mg/dl Normal [facility] Urine leukocyte esterase det ection by dipstickOrdered By: Rizwan Cárdenas on 10-12-2024 Leukocyte esterase Test strip Ql (U) 500 /ul High Negative [facility] Urine pHOrdered By: Rizwan rivera on 10-12-2024 pH (U) 6.5 [pH] 5.0 - 8.0 [facility] Urine sediment bacteria coun t by microscopy (number/high power field)Ordered By: Rizwan Cárdenas on 10-12-2024 Bacteria LM.HPF (Urine sed) [#/Area] 2 /[HPF] None Seen [facility] Urine specific gravity measu rementOrdered By: Rizwan Cárdenas on 10-12-2024 Specific gravity (U) [Rel density] 1.015 1.002-1.030 [facility] Urine urobilinogen measureme ntOrdered By: Rizwan Cárdenas on 10-12-2024 Urobilinogen Ql (U) Normal mg/dl Normal [facility] Urobilinogen Ql (U)Ordered B y: Rizwan Cárdenas on 10-12-2024 Urine Urobilinogen Normal mg/dl Normal [facility] White blood cell (WBC) count Ordered By: Rizwan Cárdenas on 10-12-2024 WBC (Bld) [#/Vol] 8.0 10*3/uL 4.4-11.0 [facility] White blood cell countOrdere d By: Rizwan Cárdenas on 10-12-2024 Urine WBC >100 SEEN /hpf 0-5 [facility] White blood cell count >100 SEEN /hpf 0-5 [facility] hCG Titer Quant., Serumon HCG QUANT. 41957 mIU/mL High <9 non-preg [facility] Comment on above: Result Comment: Gest ational Age 0.2-1 Week: 5-50 mIU/mL 1-2 Weeks: 50-500 mIU/mL 2-3 Weeks: 100-5000 mIU/mL 3-4 Weeks: 500-10,000 mIU/mL 4-5 Weeks:1000-50,000 mIU/mL 5-6 Weeks: 10,000-100,000 mIU/mL 6-8 Weeks: 15,000-200,000 mIU/mL 2-3 Months:10,000-100,000 mIU/mL Performed By: #### M 100.2200, L400.0001 #### [facility] [address] [place], [address] [facility] 10-08-2024 [facility] Telephone ([id number]) SHILPA HOANG ([id number]) 1995 F Date Time Provider Department 10/08/24 MARGARITA HERNANDEZ [id number] During your visit today, we recorded the [...] Return call to: self Call patient at: [phone] (cell), it is OK to leave message Payor: [facility] MEDICAID / Plan: [employer]ICA[employer] / Product Type: Medicaid / Jennifer Roldan Margarita Hernandez RN 10/08/2024 1:41 PM Signed Call placed [...] have it, 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 Will forward this encounter to the schedulers in this office. Carla Mckinney, CHANA 10/13/2024 10:27 AM Signed Patient has appt - closing encounter. Carla Mckinney RN Allergies As of Date: 10/08/2024 Noted Allergy Reaction WALNUT 11/10/2023 10 - Anaphylaxis CORN 11/10/2023 5 - Intolerance SEASONAL ALLERGIES 11/10/2023 3 - Cough Date Reviewed: 09/16/2024 Reviewed by: Hortencia Gould APRN.CAMPAIGN MANAGEMENT SPECIALIST - Fully Assessed Reason for Visit: Mat Maker - Other [3602] Cmt: Initial OB [...] Status:Closed by [place] on 10/13/24 Normal [facility] Emergency Department Summary on 10-02-2024 Emergency Department Summary [facility] Medical Records Department [address] [place] [id number] Emergency Department Summary 10/02/24 MR#: [id number] Acct: [id number] Name: SHILPA HOANG Rep #: [id number] : 1995 28 From: Kuldeep Vanegas DO PCP: Dr. David Mckinney MD Status:DEP ER Location: ED HPI History of Present Illness Chief Complaint: [facility] Medical History (Updated 10/02/24 @ 23:[address] Kuldeep Vanegas DO) (spontaneous vaginal delivery) Depression Family history of hearing loss at age younger than 7 years Gestational HTN Stillborn, normal History of placental abruption Trauma depression Anxiety Cervical myofascial strain Home Medications ???Medication ???Instructions ???Recorded ???Last Taken ???Type dfbgaczg-rmc-Kd-FA 1 mg 1 tab PO DAILY 09/13/21 [...] obtained from others: Significant other Consults: none [facility] Narrative: The patient was initially hemodynamically stable, [...] significant/life t (more content not included)... Normal [facility] CNOVon 09-16-2024 CNOV Office Visit (OBGYWM ) SHILPA HOANG ([id number]) 1995 F Date Time Provider Department 09/16/24 2:30 PM HORTENCIA GOULD During your visit today, we recorded the following information about you: Blood pressure Weight Last Period 106/65 73.7 kg 08/19/24 Hortencia Gould APRN.CAMPAIGN MANAGEMENT SPECIALIST 09/16/2024 5:11 PM Signed Patient declined camp cook. Shilpa presents today for IUD insertion for [...] which included preparing to see the patient, oqxw-[id number] patient care, completing clinical documentation, obtaining and/or [...] contact the office. Referring Provider: SHARDA VALERO [[id number]] Allergies As of Date: 09/16/2024 Noted Allergy Reaction WALNUT 11/10/2023 10 - Anaphylaxis CORN 11/10/2023 5 - Intolerance SEASONAL ALLERGIES 11/10/2023 3 - Cough Date Reviewed: 09/16/2024 Reviewed by: Hortencia Gould APRN.CAMPAIGN MANAGEMENT SPECIALIST - Fully Assessed Reason for Visit: Insertion Of IUD [291] Primary Visit Diagnosis:Encounter for IUD insertion [Z30.430] Order(s):UA DIP,URINE HCG (POC) [2720400] Order #: [id number]. #:[id number] Prescriptions as of 09/16/2024 - albuterol [...] HCG ( test) Ql (U) Negative Negative [facility] Comment on above: Location:[facility], [address] [place] [address], [place] [address] Recyclable Products Sorter (POCT) Internal QC [facility] Location:[facility], [facility] E [facility], [address] POINT OF CARE [facility] CNCOon 08-12-2024 CNCO Letter Text Normal [facility] PAP TESTon 07-29-2024 ADEQUACY Normal [facility] Comment on above: Order Comment: Speci men Type: FLUID SPECIMENOrdering Facility: [facility] Address: [address] [place] [address] Result Comment: Sati sfactory for interpretation. Obscuring inflammation Performed By: #### L [id number] ####[facility] LABCLIA [id number] [place] [address] [place] CASE REPORT Normal [facility] Comment on above: Order Comment: Speci men Type: FLUID SPECIMENOrdering Facility: [facility] Address: [address] [place] [address] Result Comment: Gyne cologic Cytology Report Case: [id number] Authorizing Provider: Sharda Valero APRN.CAMPAIGN MANAGEMENT SPECIALIST Collected: 07/29/2024 01:48 PM Ordering Location: OB/Gynecology Received: 07/29/2024 04:10 PM First Screen: Aramouni, Ailyn, CT, ASCP Specimen: Pap Test, ThinPrep, Cervix Performed By: #### L [id number] ####[facility] LABCLIA [id number] [place] [address] [place] CLINICAL HISTORY, CYTOLOGY, STEAM ROLLER OPERATOR Normal [facility] Comment on above: Order Comment: Speci men Type: FLUID SPECIMENOrdering Facility: [facility] Address: [address] [place] [address] Result Comment: Post (Indicate Weeks) No Menses, Other (Specify) Performed By: #### L [id number] ####[facility] LABCLIA [id number] [place] [address] [place] CYTOLOGY PAP OTHER INTERPRETATION Trichomonas vaginalis. Normal [facility] Comment on above: Order Comment: Speci men Type: FLUID SPECIMENOrdering Facility: [facility] Address: [address] [place] [address] Performed By: #### L [id number] ####[facility] LABCLIA [id number] [place] [address] [place] FINAL PERFORMING LAB Normal [facility] Comment on above: Order Comment: Speci men Type: FLUID SPECIMENOrdering Facility: [facility] Address: [address] [place] [address] Result Comment: Tech nical component, program officer screening performed at [facility], [address] [place], [place] [id number] CLIA# [id number] Diagnostic interpretation performed at [facility], [address] [place], [place] [address] CLIA# [id number] Cloth Hand: Cordell Shields M.D. Performed By: #### L [id number] ####[facility] LABCLIA [id number] [place] [address] [place] INTERPRETATION, CYTOLOGY, STEAM ROLLER OPERATOR Normal [facility] Comment on above: Order Comment: Speci men Type: FLUID SPECIMENOrdering Facility: [facility] Address: [address] [place] [address] Result Comment: Nega tive for intraepithelial lesion or malignancy. at 1633 EST Performed By: #### L [id number] ####[facility] LABIA [id number] [place] [address] [place] PAP DISCLAIMER COMMENT The Pap Smear is a screening test for cervical cancer. False negative results occur with all screening tests, emphasizing the need for rescreening at recommended intervals, and clinical correlation. Normal [facility] Comment on above: Order Comment: Speci men Type: FLUID SPECIMENOrdering Facility: [facility] Address: [address] [place] [address] Performed By: #### L [id number] ####[facility] [id number] [address] [place] MR/OB.VAGDELIon 06-18-2024 MR/OB.VAGDELI [facility] Medical Records Department [address] [place] [address] OB VAGINAL DELIVERY 06/18/24 1315 MR#: [id number] Acct: [id number] Name: SHILPA HOANG Rep #: [id number] : 1995 28 From: Margarita Alcala MD PCP: Dr. David Mckinney MD Status:ADM [place] Location: [place] [address] Assessment Plan (1) Gestational hypertension: QUALIFIERS: Trimester: [...] (5 minute): 9 Delayed Cord Clamping: Yes Mechanical Cad Designer cell builder: No Post Vaginal Deli Medications given after delivery: IV Pitocin Episiotomy Description: None Laceration: None Complication Complications: No 06/18/241801 Cosigner Signature (if applicable): CC: RUBINA Turner; Dr. David Mckinney MD; Dr. Margarita Alcala MD Signed Normal [facility] Urine Drug Screen (VISTA)on 06-18-2024 AMPHETAMINES Normal <1000 ng/mL [facility] Comment on above: Result Comment: Canc elled via OM: Ordered Performed By: #### L 505.5000 #### [facility] Laboratory [address] [facility] [address] BARBITIURATES Normal < 200 ng/mL [facility] Comment on above: Result Comment: Canc elled via OM: Ordered Performed By: #### L 505.5000 #### [facility] Laboratory [address] [facility] [id number] BENZODIAZIPINE Normal < 200 ng/mL [facility] Comment on above: Result Comment: Canc elled via OM: Ordered Performed By: #### L 505.5000 #### [facility] Laboratory [address] [place], [address] COCAINE Normal < 300 ng/mL [facility] Comment on above: Result Comment: Canc elled via OM: MD Ordered Performed By: #### L 505.5000 #### [facility] Laboratory [address] [place], [address] DRUG CONFIRM Normal [facility] Comment on above: Result Comment: Canc elled via OM: MD Ordered Performed By: #### L 505.5000 #### [facility] Laboratory [address] [place], [address] ECSTACY Normal < 500 ng/mL [facility] Comment on above: Result Comment: Canc elled via OM: MD Ordered Performed By: #### L 505.5000 #### [facility] Laboratory [address] [place], [address] METHADONE Normal < 300 ng/mL [facility] Comment on above: Result Comment: Canc elled via OM: MD Ordered Performed By: #### L 505.5000 #### [facility] Laboratory [address] [place], [address] OPIATES Normal < 300 ng/mL [facility] Comment on above: Result Comment: Canc elled via OM: MD Ordered Performed By: #### L 505.5000 #### [facility] Laboratory [address] [place], [address] PCP Normal < 25 ng/mL [facility] Comment on above: Result Comment: Canc elled via OM: MD Ordered Performed By: #### L 505.5000 #### [facility] Laboratory [address] [place], [address] THC Normal < 50 ng/mL [facility] Comment on above: Result Comment: Canc elled via OM: MD Ordered Performed By: #### L 505.5000 #### [facility] Laboratory [address] [place], [address] VISTA UDS PH Normal [facility] Comment on above: Result Comment: Brad rangel via OM: Ordered Performed By: #### L 505.5000 #### [facility] Laboratory [address] [place], [address] AST(SGOT)on 06-17-2024 AST [Catalytic activity/Vol] 13 U/L Low 15-37 [facility] Comment on above: Performed By: #### L 100.0100, L501.9520, L500.4050, L503.6550 #### [facility] Laboratory [address] [place], [address] Alanine Aminotransferas (SGP T)on 06-17-2024 ALT [Catalytic activity/Vol] 15 U/L Normal 13-56 [facility] Comment on above: Performed By: #### L 100.0100, L501.9520, L500.4050, L503.6550 #### [facility] Laboratory [address] [place], [address] CBC-Complete Blood Cnt No Di ffon 06-17-2024 Erythrocyte distribution width (RBC) [Ratio] 17.0 % High 11.6-14.6 [facility] Comment on above: Performed By: #### L 100.0100, L501.9520, L500.4050, L503.6550 #### [facility] Laboratory [address] [place], [address] Hematocrit (Bld) [Volume fraction] 27.7 % Low 37-47 [facility] Comment on above: Performed By: #### L 100.0100, L501.9520, L500.4050, L503.6550 #### [facility] Laboratory [address] [place], [address] Hemoglobin (Bld) [Mass/Vol] 8.6 g/dL Low 12.0-15.0 [facility] Comment on above: Performed By: #### L 100.0100, L501.9520, L500.4050, L503.6550 #### [facility] Laboratory [address] [place], [address] MCH (RBC) [Entitic mass] 24.8 pg Low 27.0-32.0 [facility] Comment on above: Performed By: #### L 100.0100, L501.9520, L500.4050, L503.6550 #### [facility] Laboratory [address] [place], [address] MCHC (RBC) [Mass/Vol] 31.0 g/dL Low 32-36 [facility] Comment on above: Performed By: #### L 100.0100, L501.9520, L500.4050, L503.6550 #### [facility] Laboratory [address] [place], [address] MCV (RBC) [Entitic vol] 79.8 fL Low 81-99 [facility] Comment on above: Performed By: #### L 100.0100, L501.9520, L500.4050, L503.6550 #### [facility] Laboratory [address] [place], [address] Platelet mean volume (Bld) [Entitic vol] 12.5 fL High 6.2-12.0 [facility] Comment on above: Performed By: #### L 100.0100, L501.9520, L500.4050, L503.6550 #### [facility] Laboratory [address] [place], [address] Platelets (Bld) [#/Vol] 143 10*3/uL Low 150-450 [facility] Comment on above: Performed By: #### L 100.0100, L501.9520, L500.4050, L503.6550 #### [facility] Laboratory [address] [place], [address] RBC (Bld) [#/Vol] 3.47 10*6/uL Low 4.2-5.4 [facility] Comment on above: Performed By: #### L 100.0100, L501.9520, L500.4050, L503.6550 #### [facility] Laboratory [address] [place], [address] RDW SD 48.8 fl High 35.1-43.9 [facility] Comment on above: Performed By: #### L 100.0100, L501.9520, L500.4050, L503.6550 #### [facility] Laboratory [address] [place], [address] WBC (Bld) [#/Vol] 10.8 10*3/uL Normal 4.4-11.0 [facility] Comment on above: Performed By: #### L 100.0100, L501.9520, L500.4050, L503.6550 #### [facility] Laboratory [address] [place], [address] Erythrocyte distribution wid th (RBC) [Ratio]Ordered By: Johana Turner on 06-17-2024 Erythrocyte distribution width (RBC) [Entitic vol] 48.8 fL High 35.1-43.9 [facility] Erythrocyte distribution wid th ratioOrdered By: Johana Turner on 06-17-2024 Erythrocyte distribution width (RBC) [Ratio] 17.0 % High 11.6-14.6 [facility] Estimated glomerular filtrat ion rate (GFR) AmericanOrdered By: Johana Turner on 06-17-2024 Estimated GFR (MDRD) Amer 198 mL/min >60 [facility] Comment on above: GFR Calc Estimation of creatinine morgan aranceOrdered By: Johana Turner on 06-17-2024 Estimated Creatinine Clearance Calc 191.32 ml/min [facility] Glomerular filtration rate ( GFR) estimationOrdered By: Johana Turner on 06-17-2024 Estimated GFR (MDRD) Non-Af Amer 164 mL/min >60 [facility] Comment on above: Non- GFR Calc H AND P Exam - OB/GYNon 12-2 H&P Exam - DIRECTOR OF RESTAURANT [facility] Medical Records Department [address] [place] [address] H P Exam - DIRECTOR OF RESTAURANT 06/17/24 1705 MR#: [id number] Acct: [id number] Name: SHILPA HOANG Rep #: [id number] : 1995 28 From: Johana Turner CNM PCP: Dr. David Mckinney MD Status:ADM IN Location: [id number] HPI - General General Date of Admission: [...] Medications ???Medication ???Instructions ???Recorded ???Last Taken ???Type qcnlkhgi-xnf-Mk-FA 1 mg 1 tab PO DAILY 09/13/21 [...] 02/09/17 Piper 42 live - full term [id number] Female 18 epidural [facility] [place] 11/13/18 Uledi 39 live - full term 8lb2oz Female [...] Pressure BP (more content not included)... Normal [facility] Hematocrit Auto (Bld) [Volum e fraction]Ordered By: Johana Turner on 06-17-2024 Hematocrit (Bld) [Volume fraction] 27.7 % Low 37-47 [facility] Hemoglobin measurementOrdere d By: Johana Turner on 06-17-2024 Hemoglobin (Bld) [Mass/Vol] 8.6 g/dL Low 12.0-15.0 [facility] L509.8000on 06-17-2024 Syphilis Abs Non-Reactive Normal [facility] Comment on above: Performed By: #### M 100.2200, L400.0001 #### [facility] Laboratory [facility] [place] [place], [place], [id number] Laboratory - Chemistry and C hemistry - challengeOrdered By: Johana Turner on 06-17-2024 AST [Catalytic activity/Vol] 13 U/L Low 15-37 [facility] MCV (mean corpuscular volume ) determinationOrdered By: Johana Turner on 06-17-2024 MCV (RBC) [Entitic vol] 79.8 fL Low 81-99 [facility] Mean corpuscular hemoglobin (MCH) determinationOrdered By: Johana Turner on 06-17-2024 MCH (RBC) [Entitic mass] 24.8 pg Low 27.0-32.0 [facility] Mean corpuscular hemoglobin concentration (MCHC) determinationOrdered By: Johana Turner on 06-17-2024 MCHC (RBC) [Mass/Vol] 31.0 g/dL Low 32-36 [facility] Mean platelet volume determi nationOrdered By: Johana Turner on 06-17-2024 Platelet mean volume (Bld) [Entitic vol] 12.5 fL High 6.2-12.0 [facility] Methadone, urineOrdered By: Johana Turner on 06-17-2024 Urine Methadone Screen Negative < 300 ng/mL [facility] No Panel InformationOrdered By: Johana Turner on 06-17-2024 Urine Drug Screen Comment [facility] Comment on above: CONFIRMATORY TESTING FOR ALL [...] Platelets (Bld) [#/Vol] 143 10*3/uL Low 150-450 [facility] Protein+Creatinine Ratio,Uri neon 06-17-2024 PROT:CRE RATIO 218 mg/g CRE High 0-200 [facility] Comment on above: Performed By: #### L 100.0100, L501.9520, L500.4050, L503.6550 #### [facility] Laboratory [address] [place], [address] Protein (U) [Mass/Vol] 30.5 mg/dL High <11.9 [facility] Comment on above: Performed By: #### L 100.0100, L501.9520, L500.4050, L503.6550 #### [facility] Laboratory [address] [place], [address] UR CREAT 140.00 mg/dL Normal NO RANGE EST. [facility] Comment on above: Performed By: #### L 100.0100, L501.9520, L500.4050, L503.6550 #### [facility] Laboratory [address] [place], [address] Protein/Creatinine (U) [Mass ratio]Ordered By: Johana Turner on 06-17-2024 Urine Protein/Creatinine Ratio 218 mg/g CRE High 0-200 [facility] Quantitative urine opiates m easurementOrdered By: Johana Turner on 06-17-2024 Opiates Ql (U) Negative < 300 ng/mL [facility] RBC Auto (Bld) [#/Vol]Ordere d By: Johana Turner on 06-17-2024 RBC (Bld) [#/Vol] 3.47 10*6/uL Low 4.2-5.4 [facility] Random urine protein measure mentOrdered By: Johana Ethanbruna on 06-17-2024 Protein (U) [Mass/Vol] 30.5 mg/dL High 0.0-11.8 [facility] Serum Creatinine AND GFRon 1 08-18-2023 Creatinine [Mass/Vol] 0.48 mg/dL Low 0.55-1.02 [facility] Comment on above: Result Comment: The validity of the calculated GFR GFRAA in patients over 70 years has not been determined. Clinical correlation is essential. Performed By: #### L 100.0100, L501.9520, L500.4050, L503.6550 #### [facility] Laboratory [address] [place], [address] ECRCL 191.32 ml/min Normal [facility] Comment on above: Performed By: #### L 100.0100, L501.9520, L500.4050, L503.6550 #### [facility] Laboratory [address] [place], [address] EST GFR - AA 198 mL/min Normal >60 [facility] Comment on above: Result Comment: Afri can [place] GFR Calc Performed By: #### L 100.0100, L501.9520, L500.4050, L503.6550 #### [facility] Laboratory [address] [place], [place], [address] GFR/1.73 sq M.predicted among non-blacks MDRD (S/P/Bld) [Vol rate/Area] 164 mL/min/{1.73_m2} Normal >60 [facility] Comment on above: Result Comment: Non- GFR Calc Performed By: #### L 100.0100, L501.9520, L500.4050, L503.6550 #### [facility] Laboratory [address] [place], [address] Serum or plasma alanine rivero otransferase (ALT) measurementOrdered By: Johana Turner on 06-17-2024 ALT [Catalytic activity/Vol] 15 U/L [facility] Serum or plasma creatinine m easurement (mass/volume)Ordered By: Johana Turner on 06-17-2024 Creatinine [Mass/Vol] 0.48 mg/dL Low 0.55-1.02 [facility] Comment on above: The validity of the calculated GFR & GFRAA in patients over 70 years has not been determined. Clinical correlation is essential. Serum or plasma uric acid me asurement (mass/volume)Ordered By: Johana Turner on 06-17-2024 Urate [Mass/Vol] 4.2 mg/dL 2.6-6.0 [facility] Comment on above: The drugs N-Acetylcy steine and Metamizole may falsely depress this assay. Treponema sp Ab Ql (S)Ordere d By: Soy Cassidy on 06-17-2024 Syphilis Total Antibody Non-Reactive [facility] Type AND Screenon 06-17-2024 ABO and Rh group Nom (Bld) Blood group A Rh(D) positive Normal [facility] Comment on above: Order Comment: Labor Performed By: #### L 505.5000 #### [facility] Laboratory [address] [place], [place], [id number] URINE OB DIP B/Oon Glucose Ql (U) Negative Neg mg/dL [facility] Protein.monoclonal (U) [Mass/Vol] Negative Neg mg/dL [facility] Uric Acidon 06-17-2024 URIC 4.2 mg/dL Normal 2.6-6.0 [facility] Comment on above: Result Comment: The drugs N-Acetylcysteine and Metamizole may falsely depress this assay. Performed By: #### L 100.0100, L501.9520, L500.4050, L503.6550 #### [facility] Laboratory [address] [place], [address] Urine Drug Screen (VISTA)on 06-17-2024 AMPHETAMINES Negative Normal <1000 ng/mL [facility] Comment on above: Order Comment: amphe tamines Performed By: #### L 505.5000 #### [facility] Laboratory [address] [place], [address] BARBITIURATES Negative Normal < 200 ng/mL [facility] Comment on above: Order Comment: amphe tamines Performed By: #### L 505.5000 #### [facility] Laboratory [address] [place], [address] BENZODIAZIPINE Negative Normal < 200 ng/mL [facility] Comment on above: Order Comment: amphe tamines Performed By: #### L 505.5000 #### [facility] Laboratory [address] [place], [address] COCAINE Negative Normal < 300 ng/mL [facility] Comment on above: Order Comment: amphe tamines Performed By: #### L 505.5000 #### [facility] Laboratory [address] [place], [address] ECSTACY Negative Normal < 500 ng/mL [facility] Comment on above: Order Comment: amphe tamines Performed By: #### L 505.5000 #### [facility] Laboratory [address] [place], [address] METHADONE Negative Normal < 300 ng/mL [facility] Comment on above: Order Comment: amphe tamines Performed By: #### L 505.5000 #### [facility] Laboratory [address] [place], [place], [id number] OPIATES Negative Normal < 300 ng/mL [facility] Comment on above: Order Comment: amphe tamines Performed By: #### L 505.5000 #### [facility] Laboratory [address] [place], [place], [id number] PCP Negative Normal < 25 ng/mL [facility] Comment on above: Order Comment: amphe tamines Performed By: #### L 505.5000 #### [facility] Laboratory [address] [place], [place], [id number] THC Negative Normal < 50 ng/mL [facility] Comment on above: Order Comment: amphe tamines Performed By: #### L 505.5000 #### [facility] Laboratory [address] [place], [place], [id number] VISTA UDS PH 5 Normal [facility] Comment on above: Order Comment: amphe tamines Performed By: #### L 505.5000 #### [facility] Laboratory [address] [place], [place], [id number] Urine amphetamine measuremen tOrdered By: Johana Turner on 06-17-2024 Amphetamines Ql (U) Negative <1000 ng/mL [facility] Urine barbiturates measureme ntOrdered By: Johana Turner on 06-17-2024 Urine Barbiturates Screen Negative < 200 ng/mL [facility] Urine benzodiazepine levelOr dered By: Johana Turner on 06-17-2024 Benzodiazepines Ql (U) Negative < 200 ng/mL [facility] Urine cocaine levelOrdered B y: Johana Turner on 06-17-2024 Cocaine Ql (U) Negative < 300 ng/mL [facility] Urine creatinine measurement (mass/volume)Ordered By: Johana Turner on 06-17-2024 Creatinine (U) [Mass/Vol] 140.00 mg/dL NO RANGE EST. [facility] Urine ngsux-6-qmlkcqpbiojelz abinol (THC) measurementOrdered By: Johana Turner on 06-17-2024 Cannabinoids Screen Ql (U) Negative < 50 ng/mL [facility] Urine methylenedioxymethamph etamine (MDMA) measurementOrdered By: Johana Turner on 06-17-2024 MDMA (Ecstasy) Screen Negative < 500 ng/mL [facility] Urine phencyclidine (PCP) de tectionOrdered By: Johana Turner on 06-17-2024 Phencyclidine Ql (U) Negative < 25 ng/mL [facility] White blood cell (WBC) count Ordered By: Johana Turner on 06-17-2024 WBC (Bld) [#/Vol] 10.8 10*3/uL 4.4-11.0 [facility] CNPNon 06-14-2024 CNPN Telephone (OBGYWM) SHILPA HOANG ([id number]) 1995 F Date Time Provider Department 06/14/24 SARAH HUBER During your visit today, we recorded the following information about you: Jennifer Roldan 06/14/2024 10:30 AM Signed [facility] OB is requesting HANDP to be faxed to [phone]. Margarita Hearn RN 06/14/2024 11:06 AM Signed Faxed via [employer]. Margarita Hearn RN Allergies As of Date: [...] - [place] Examination level ultrasound on 06-12-2024 [facility] Examination level ultrasound on 06-11-2024 Radiology Study observation (narrative) [facility] ROUTINE, GROUP B ST REP PCRon 06-11-2024 ROUTINE, GROUP B STREP PCR GROUP B STREP PCR: Positive for Group B Streptococcus by PCR. Abnormal [facility] Comment on above: Performed By: #### G BPCR ####[facility] LABCLIA [id number] [place] [address] [place] URINE OB DIP B/Oon Glucose Ql (U) Negative Neg mg/dL [facility] Protein.monoclonal (U) [Mass/Vol] trace Neg mg/dL [facility] FERRITINon 06-05-2024 Ferritin [Mass/Vol] 11.4 ng/mL Low 14.7 - 2 05.1 ng/mL [facility] Ferritin [Mass/Vol]on 2023 Interpretation and review of laboratory results Abnormal [facility] Iron and Iron binding capaci ty panelon 06-05-2024 Interpretation and review of laboratory results Abnormal [facility] Iron [Mass/Vol] 25 ug/dL Low 41 - 186 ug/dL [facility] Iron binding capacity [Mass/Vol] 490 ug/dL High 232 - 386 ug/dL [facility] Iron/TIBC [Molar ratio] 5.1 % Low 15.0 - 57.0 % [facility] Ferritin SerPl-mCncon 2023 Ferritin [Mass/Vol] 11.4 ng/mL Low 14.7-205.1 [facility] Comment on above: Order Comment: Speci men Type: BLOOD SPECIMENOrdering Facility: [facility] Address: [address] [place] [address] Performed By: #### 2 276-4, 97288-0 ####[facility] LABCLIA [id number] [place] [address] [place] Iron and Iron binding capaci ty panelon 06-04-2024 Iron [Mass/Vol] 25 ug/dL Low 41-186 [facility] Comment on above: Order Comment: Speci men Type: BLOOD SPECIMENOrdering Facility: [facility] Address: [address] [place] [address] Performed By: #### 2 276-4, 13506-1 ####[facility] LABCLIA [id number] [place] [address] [place] Iron binding capacity [Mass/Vol] 490 ug/dL High 232-386 [facility] Comment on above: Order Comment: Speci men Type: BLOOD SPECIMENOrdering Facility: [facility] Address: [address] [place] [address] Performed By: #### 2 276-4, 66944-0 ####[facility] LABCLIA [id number] [place] [address] [place] Iron/TIBC [Molar ratio] 5.1 % Low 15.0-57.0 [facility] Comment on above: Order Comment: Speci men Type: BLOOD SPECIMENOrdering Facility: [facility] Address: [address] [place] [address] Performed By: #### 2 276-4, 20920-8 ####[facility] LABCLIA [id number] [place] [id number] [place] CBC panel Auto (Bld)on 06-03 Erythrocyte distribution width (RBC) [Ratio] 16.8 % High 11.5 - 15.0 % [facility] Hematocrit (Bld) [Volume fraction] 27.9 % Low 36.0 - 46.0 % [facility] Hemoglobin (Bld) [Mass/Vol] 8.8 g/dL Low 11.5 - 15.5 g/dL [facility] Interpretation and review of laboratory results Abnormal [facility] MCH (RBC) [Entitic mass] 26.0 pg 26.0 - 34.[address] [facility] MCHC (RBC) [Mass/Vol] 31.5 g/dL 30.5 - 36.0 g/dL [facility] MCV (RBC) [Entitic vol] 82.3 fL 80.0 - 100.[address] [facility] Nucleated RBC (Bld) [#/Vol] NINF [facility] Platelet mean volume (Bld) [Entitic vol] 12.5 fL 9.0 - 12.[address] [facility] Platelets (Bld) [#/Vol] 123 10*3/uL Low [facility] Comment on above: No clot detected. RBC (Bld) [#/Vol] 3.39 10*6/uL Low 3.90 - 5.2 0 m/uL [facility] WBC (Bld) [#/Vol] 9.56 10*3/uL [facility] Erythrocyte distribution width (RBC) [Ratio] 16.8 % High 11.5-15.0 [facility] Comment on above: Order Comment: Speci men Type: BLOOD SPECIMEN [facility] Address: [address] [place] [address] Performed By: #### 2 4323-8 #### [facility] CLIA [id number] [address] [place] [address] [place] Hematocrit (Bld) [Volume fraction] 27.9 % Low 36.0-46.0 [facility] Comment on above: Order Comment: Speci men Type: BLOOD SPECIMEN [facility] Address: [address] [place] [address] Performed By: #### 2 4323-8 #### [facility] CLIA [id number] [address] [place] [address] [place] Hemoglobin (Bld) [Mass/Vol] 8.8 g/dL Low 11.5-15.5 [facility] Comment on above: Order Comment: Speci men Type: BLOOD SPECIMEN [facility] Address: [address] [place] [address] Performed By: #### 2 4323-8 #### [facility] CLIA [id number] [address] [place] [address] [place] MCH (RBC) [Entitic mass] 26.0 pg Normal 26.0-34.0 [facility] Comment on above: Order Comment: Speci men Type: BLOOD SPECIMEN [facility] Address: [address] [place] [address] Performed By: #### 2 4323-8 #### [facility] CLIA [id number] [address] [place] [address] [place] MCHC (RBC) [Mass/Vol] 31.5 g/dL Normal 30.5-36.0 [facility] Comment on above: Order Comment: Speci men Type: BLOOD SPECIMEN [facility] Address: [address] [place] [address] Performed By: #### 2 4323-8 #### [facility] CLIA [id number] [address] [place] [address] [place] MCV (RBC) [Entitic vol] 82.3 fL Normal 80.0-100.0 C [facility] Comment on above: Order Comment: Speci men Type: BLOOD SPECIMEN [facility] Address: [address] [place] [address] Performed By: #### 2 4323-8 #### [facility] CLIA [id number] [address] [place] [address] [place] Nucleated RBC (Bld) [#/Vol] 10*3/uL Normal <0.01 [facility] Comment on above: Order Comment: Speci men Type: BLOOD SPECIMEN [facility] Address: [address] [place] [address] Performed By: #### 2 4323-8 #### [facility] CLIA [id number] [address] [place] [address] [place] Platelet mean volume (Bld) [Entitic vol] 12.5 fL Normal 9.0-12.7 [facility] Comment on above: Order Comment: Speci men Type: BLOOD SPECIMEN [facility] Address: [address] [place] [address] Performed By: #### 2 4323-8 #### [facility] CLIA [id number] [address] [place] [address] [place] Platelets (Bld) [#/Vol] 123 10*3/uL Low 150-400 [facility] Comment on above: Order Comment: Speci men Type: BLOOD SPECIMEN [facility] Address: [address] [place] [address] Result Comment: No c lot detected. Performed By: #### 2 4323-8 #### [facility] CLIA [id number] [address] [place] [address] [place] RBC (Bld) [#/Vol] 3.39 10*6/uL Low 3.90-5.20 [facility] Comment on above: Order Comment: Speci men Type: BLOOD SPECIMEN [facility] Address: [address] [place], [place] [address] Performed By: #### 2 4323-8 #### [facility] CLIA [id number] [address] [place] [address] [place] WBC (Bld) [#/Vol] 9.56 10*3/uL Normal 3.70-11.00 [facility] Comment on above: Order Comment: Speci men Type: BLOOD SPECIMEN [facility] Address: [address] [place] [address] Performed By: #### 2 4323-8 #### [facility] CLIA [id number] [address] [place] [address] [facility] Tay 06-03-2024 CNPN Telephone (OBGYWM) SHILPA HOANG ([id number]) 1995 F Date Time Provider Department 06/03/24 [...] Date Reviewed: 06/03/2024 Reviewed by: Halle Orellana APRN.CAMPAIGN MANAGEMENT SPECIALIST - Fully Assessed Reason for Visit: Results [95] Primary Visit Diagnosis:Anemia complicating , third trimester [O99.013] Other Visit Diagnosis:Antepartum anemia complicating in third trimester [O99.013] Order(s):BLOOD MANAGEMENT REFERRAL [5882090] Order #: [id number]: 1 FERRITIN [SQFERR] Order #: [id number] FUTURE IRON AND TIBC [SQIRON] Order #: [id number] FUTURE Prescriptions as of 06/07/2024 - FLUoxetine [...] Status:Closed by KHUSHBOO ABRAHAM on 06/07/24 Normal [facility] URINE OB DIP B/OOrdered By: Alicia Holliday on 06-03-2024 Glucose Ql (U) Negative Neg mg/dL [facility] Interpretation and review of laboratory results Normal [facility] Protein.monoclonal (U) [Mass/Vol] Negative Neg mg/dL [facility] OB Triage Physician Noteon 1 07-29-2023 OB Triage Physician Note [facility] Medical Records Department [address] [place] [address] OB Triage Physician Note 05/28/24 1239 MR#: [id number] Acct: [id number] Name: SHILPA HOANG Rep #: [id number] : 1995 28 From: Jeanette Patel MD PCP: Dr. David Mckinney MD Status:DEP CLI Y Location: [facility] HPI - General General Date [...] Medications ???Medication ???Instructions ???Recorded ???Last Taken ???Type tmjmessg-yte-Sh-FA 1 mg 1 tab PO DAILY 09/13/21 [...] 02/09/17 Piper 41 live - full term [id number] Female 18 epidural [facility] [place] 11/13/18 Uledi 39 live - full term 8lb2oz Female 13 epidural [facility] Be nekos NST FHR Rate Baby [...] MD; Dr. Jeanette Patel MD Signed Normal [facility] URINE OB DIP B/Oon 4 Glucose Ql (U) Negative Neg mg/dL [facility] Interpretation and review of laboratory results Normal [facility] Protein.monoclonal (U) [Mass/Vol] Negative Neg mg/dL [facility] Examination level ultrasound on 05-12-2024 [facility] Radiology Study observation (narrative) [facility] Examination level ultrasound on 04-14-2024 [facility] Radiology Study observation (narrative) [facility] Examination level ultrasound on 03-17-2024 [facility] Radiology Study observation (narrative) [facility] Examination level ultrasound on 02-17-2024 Indication [...] 12 oz EFW by: Hadlock (HC-AC-FL) Extended Bit Tripoler 5.9 mm CM 2.1 mm <1% Nicolaides [...] normal LVOT view: normal 3-vessel view: normal 1-rxkivl-xfytfgl view: normal Heart / Thorax Situs: situs [...] Read By: Vilma Farrell M.D. MATERNAL MEDICINE [facility] Radiology Study observation (narrative) [facility] CBC panel Auto (Bld)on 12-31 Erythrocyte distribution width (RBC) [Ratio] 14.2 % 11.5 - 15.0 % [facility] Hematocrit (Bld) [Volume fraction] 37.5 % 36.0 - 46.0 % [facility] Hemoglobin (Bld) [Mass/Vol] 12.4 g/dL 11.5 - 15.5 g/dL [facility] Interpretation and review of laboratory results Normal [facility] MCH (RBC) [Entitic mass] 28.1 pg 26.0 - 34.[address] [facility] MCHC (RBC) [Mass/Vol] 33.1 g/dL 30.5 - 36.0 g/dL [facility] MCV (RBC) [Entitic vol] 85.0 fL 80.0 - 100.[address] [facility] Nucleated RBC (Bld) [#/Vol] NINF [facility] Platelet mean volume (Bld) [Entitic vol] 12.1 fL 9.0 - 12.[address] [facility] Platelets (Bld) [#/Vol] 181 10*3/uL [facility] RBC (Bld) [#/Vol] 4.41 10*6/uL 3.90 - 5.2 0 m/uL [facility] WBC (Bld) [#/Vol] 9.21 10*3/uL [facility] nuchal translucency me asured by USon 01-01-2024 Indication First trimester anatomic survey IUFD 26 weeks, Obesity, BMI >30 Impression REMOTE READ The patient is referred for a first trimester anatomy scan including nuchal translucency measurement as clinically indicated. - Single, live, intrauterine . - [place] rump length measurement is consistent with the [...] view: normal 4-chamber view with color: normal 4-yfymhn-cihqise view: normal Abdominal cord insertion: normal Stomach: [...] Read By: Vilma Farrell M.D. MATERNAL MEDICINE [facility] Radiology Study observation (narrative) [facility] C. trachomatis+N. gonorrhoea e DNA OFELIA+probe Ql (Unsp spec)on 11-14-2023 C. trachomatis rRNA OFELIA+probe Ql (Unsp spec) Negative Negative for Chlamydia trachomatis by amplificaton [facility] Interpretation and review of laboratory results Normal [facility] N. gonorrhoeae rRNA OFELIA+probe Ql (Unsp spec) Negative Negative for Neisseria gonorrhoeae by amplification [facility] POC 3D MODELER ULTRASOUNDon 11-13-19 Indication Confirmation of intrauterine . Confirmation of cardiac activity Impression 1. Single, live, intrauterine . 2. An intrauterine gestational sac with a yolk sac and pole are present. 3. [place] rump length measurement is consistent with the established gestational age. 4. heart tones are within normal limits. Recommendations Follow up as clinically indicated. Method Transvaginal ultrasound examination. View: Adequate visualization Marqeuz . Number of embryos: 1 Dating LMP [...] Read By: Sharda Valero CNP MATERNAL MEDICINE [facility] Radiology Study observation (narrative) [facility] Absolute lymphocyte countOrd ered By: Kuldeep Vanegas on 08-10-2023 Lymphocytes Auto (Unsp spec) [#/Vol] 1.57 10*3/uL 0.83-4.51 [facility] Automated lymphocyte count a s percentage of total leukocytesOrdered By: Kuldeep Vanegas on 08-10-2023 Lymphocytes/100 WBC Auto (Unsp spec) 32.8 % 19-41 [facility] Basophil percentageOrdered B y: Kuldeep Vanegas on 08-10-2023 Basophil percentage 5-10 SEEN /hpf 0-5 [facility] Basophils/100 WBC (Bld) 0.6 % 0-1 [facility] Bilirubin [Mass/Vol] 0.30 mg/dL 0.20-1.00 [facility] Comment on above: For patients on eltr ombopag therapy, use of Dimension [place] TBIL is not recommended. Chloride [Moles/Vol] 112 mmol/L 98-107 [facility] Eosinophils/100 WBC (Bld) 6.1 % 0-5 [facility] Glucose [Mass/Vol] 85 mg/dL 74-106 [facility] Hemoglobin (Bld) [Mass/Vol] 12.1 g/dL 12.0-15.0 [facility] Monocytes/100 WBC (Bld) 9.4 % 0-10 [facility] Neutrophils (Bld) [#/Vol] 2.4 10*3/uL 2.0-7.7 [facility] Neutrophils/100 WBC (Bld) 50.9 % 47-70 [facility] Potassium [Moles/Vol] 3.8 mmol/L 3.5-5.1 [facility] Protein [Mass/Vol] 7.0 g/dL 6.4-8.2 [facility] Sodium [Moles/Vol] 139 mmol/L 136-145 [facility] WBC (Bld) [#/Vol] 4.8 10*3/uL 4.4-11.0 [facility] Bilirubin Test strip Ql (U)O rdered By: Kuldeep Vanegas on 08-10-2023 Bilirubin Ql (U) Negative Negative [facility] Determination of erythrocyte mean corpuscular volume (MCV)Ordered By: Kuldeep Vanegas on 08-10-2023 MCV (RBC) [Entitic vol] 85.3 fL 81-99 [facility] Erythrocyte distribution wid th ratioOrdered By: Kuldeep Vanegas on 08-10-2023 Erythrocyte distribution width (RBC) [Ratio] 13.1 % 11.6-14.6 [facility] Erythrocyte distribution wid th standard deviationOrdered By: Kuldeep Vanegas on 08-10-2023 Erythrocyte distribution width (RBC) [Entitic vol] 39.9 fL 35.1-43.9 [facility] Hematocrit Auto (Bld) [Volum e fraction]Ordered By: Kuldeep Vanegas on 08-10-2023 Hematocrit (Bld) [Volume fraction] 37.7 % 37-47 [facility] Immature granulocytes/100 WB C Auto (Bld)Ordered By: Kuldeep Vanegas on 08-10-2023 Immature granulocytes/100 WBC (Bld) 0.200 % 0.0-0.9 [facility] Comment on above: IG% - Immature Granu locytes (promyelocytes, myelocytes and metamyelocytes) > 1% indicates that a LEFT SHIFT is Present. Ketones Test strip Ql (U)Ord ered By: Kuldeep Vanegas on 08-10-2023 Ketones Ql (U) Negative Negative [facility] Laboratory - Chemistry and C hemistry - challengeOrdered By: Kuldeep Vanegas on 08-10-2023 HCG ( test) Ql (U) Negative [facility] Comment on above: Very dilute urine sp ecimens, as indicated by a low specificgravity, may not contain computer help desk representative levels of hCG. If is still suspected, a first morning urinespecimen should be collected 48 hours later and tested. Albumin/Globulin [Mass ratio] 0.9 {ratio} 0.9-2.4 [facility] ALP [Catalytic activity/Vol] 104 U/L 45-117 [facility] ALT [Catalytic activity/Vol] 46 U/L 13-56 [facility] CO2 [Moles/Vol] 24.0 mmol/L 21.0-32.0 [facility] Globulin (S) [Mass/Vol] 3.7 g/dL 2.2-4.2 [facility] Urea nitrogen/Creatinine [Mass ratio] 15.1 mg/mg 10-20 [facility] Laboratory - Hematology and Cell countsOrdered By: Kuldeep Vanegas on 08-10-2023 MCH (RBC) [Entitic mass] 27.4 pg 27.0-32.0 [facility] MCHC (RBC) [Mass/Vol] 32.1 g/dL 32-36 [facility] Nucleated RBC/100 WBC (Bld) [Ratio] 0 % 0-5 [facility] Platelet mean volume (Bld) [Entitic vol] 12.2 fL 6.2-12.0 [facility] Platelets (Bld) [#/Vol] 187 10*3/uL 150-450 [facility] Laboratory - Microbiology an d Antimicrobial susceptibilityOrdered By: Kuldeep Vanegas on 08-10-2023 SARS-CoV-2 (COVID-19) RNA OFELIA+probe Ql (Unsp spec) [facility] Mucus LM Ql (Urine sed)Order ed By: Kuldeep Vanegas on 08-10-2023 Mucus Ql (Urine sed) 0 SEEN /hpf [facility] Nitrite Test strip Ql (U)Ord ered By: Kuldeep Vanegas on 08-10-2023 Nitrite Ql (U) Negative Negative [facility] No Panel InformationOrdered By: Kuldeep Vanegas on 08-10-2023 Urine RBC 0 SEEN /hpf 0-5 [facility] Estimated Creatinine Clearance Calc 155.99 ml/min [facility] Estimated GFR (MDRD) Amer 156 mL/min >60 [facility] Comment on above: GFR Calc Estimated GFR (MDRD) Non-Af Amer 129 mL/min >60 [facility] Comment on above: Non- GFR Calc Protein Test strip Ql (U)Ord ered By: Kuldeep Vanegas on 08-10-2023 Protein Ql (U) Negative Negative [facility] RBC Auto (Bld) [#/Vol]Ordere d By: Kuldeep Vanegas on 08-10-2023 RBC (Bld) [#/Vol] 4.42 10*6/uL 4.2-5.4 [facility] Serum or plasma calcium roopa urement (mass/volume)Ordered By: Kuldeep Vanegas on 08-10-2023 Calcium [Mass/Vol] 8.7 mg/dL 8.5-10.1 [facility] Serum or plasma creatinine m easurement (mass/volume)Ordered By: Kuldeep Vanegas on 08-10-2023 Creatinine [Mass/Vol] 0.60 mg/dL 0.55-1.02 [facility] Comment on above: The validity of the calculated GFR & GFRAA in patients over 70 years has not been determined. Clinical correlation is essential. Serum or plasma urea nitroge n measurement (mass/volume)Ordered By: Kuldeep Vanegas on 08-10-2023 Urea nitrogen [Mass/Vol] 9 mg/dL 7-18 [facility] Squamous epithelial cells de tection in urine sediment by light microscopyOrdered By: Kuldeep Vanegas on 08-10-2023 Epithelial cells.squamous LM Ql (Urine sed) 10-25 SEEN /hpf 5-10 [facility] Thin prep Papanicolaou smear with manual screeningOrdered By: Kuldeep Vanegas on 08-10-2023 Thin prep Papanicolaou smear with manual screening 3.3 g/dL 3.2-5.0 [facility] Thin prep Papanicolaou smear with manual screening 25 U/L 15-37 [facility] Thin prep Papanicolaou smear with manual screening 3 5-15 [facility] Urine blood detectionOrdered By: uKldeep Vanegas on 08-10-2023 RBC Ql (U) Negative Negative [facility] Urine clarityOrdered By: Iker Vanegas on 08-10-2023 Clarity (U) Sl. Cloudy Clear [facility] Urine color determinationOrd ered By: Kuldeep Vanegas on 08-10-2023 Color (U) Yellow Yellow [facility] Urine glucose detectionOrder ed By: Kuldeep Vanegas on 08-10-2023 Glucose Ql (U) Normal mg/dl Normal [facility] Urine leukocyte esterase det ection by dipstickOrdered By: Kuldeep Vanegas on 08-10-2023 Leukocyte esterase Test strip Ql (U) 500 /ul Negative [facility] Urine pHOrdered By: Kuldeep patel on 08-10-2023 pH (U) 6.0 [pH] 5.0 - 8.0 [facility] Urine sediment bacteria coun t by microscopy (number/high power field)Ordered By: Kuldeep Vanegas on 08-10-2023 Bacteria LM.HPF (Urine sed) [#/Area] 3 /[HPF] None Seen [facility] Urine specific gravity measu rementOrdered By: Kuldeep Vanegas on 08-10-2023 Specific gravity (U) [Rel density] 1.015 1.002-1.030 [facility] Urine urobilinogen measureme ntOrdered By: Kuldeep Vanegas on 08-10-2023 Urobilinogen Ql (U) 1 mg/dl Normal [facility] Absolute lymphocyte countOrd ered By: David Mckinney on 07-04-2023 Lymphocytes Auto (Unsp spec) [#/Vol] 2.38 10*3/uL 0.83-4.51 [facility] Basophil percentageOrdered B y: David Mckinney on 07-04-2023 Basophil percentage 5-10 SEEN /hpf 0-5 [facility] Basophils/100 WBC (Bld) 0.8 % 0-1 [facility] Eosinophils/100 WBC (Bld) 7.3 % 0-5 [facility] Neutrophils (Bld) [#/Vol] 6.4 10*3/uL 2.0-7.7 [facility] Neutrophils/100 WBC (Bld) 63.4 % 47-70 [facility] WBC (Bld) [#/Vol] 10.1 10*3/uL 4.4-11.0 [facility] Beta hCG serum qualOrdered B y: David Mckinney on 07-04-2023 Beta HCG ( test) Ql Negative [facility] Bilirubin Test strip Ql (U)O rdered By: David Mckinney on 07-04-2023 Bilirubin Ql (U) Negative Negative [facility] Blood erythrocytes count (nu mber/volume)Ordered By: David Mckinney on 07-04-2023 RBC (Bld) [#/Vol] 4.70 10*6/uL 4.2-5.4 [facility] Blood hemoglobin measurement (mass/volume)Ordered By: David Mckinney on 07-04-2023 Hemoglobin (Bld) [Mass/Vol] 13.1 g/dL 12.0-15.0 [facility] Blood lymphocytes/100 leukoc ytesOrdered By: David Mckinney on 07-04-2023 Lymphocytes/100 WBC (Bld) 23.5 % 19-41 [facility] Blood monocytes/100 leukocyt esOrdered By: David Mckinney on 07-04-2023 Monocytes/100 WBC (Bld) 4.6 % 0-10 [facility] Blood platelet mean volumeOr dered By: David Mckinney on 07-04-2023 Platelet mean volume (Bld) [Entitic vol] 12.6 fL 6.2-12.0 [facility] Culture, urineOrdered By: Davidson Mckinney on 07-04-2023 Bacteria identified Cx Nom (U) Escherichia coli [facility] Determination of erythrocyte mean corpuscular volume (MCV)Ordered By: David Mckinney on 07-04-2023 MCV (RBC) [Entitic vol] 88.3 fL 81-99 [facility] Hematocrit Auto (Bld) [Volum e fraction]Ordered By: David Mckinney on 07-04-2023 Hematocrit (Bld) [Volume fraction] 41.5 % 37-47 [facility] Ketones Test strip Ql (U)Ord ered By: David Mckinney on 07-04-2023 Ketones Ql (U) Negative Negative [facility] Laboratory - Hematology and Cell countsOrdered By: David Mckinney on 07-04-2023 Erythrocyte distribution width (RBC) [Entitic vol] 40.8 fL 35.1-43.9 [facility] Erythrocyte distribution width (RBC) [Ratio] 12.5 % 11.6-14.6 [facility] Immature granulocytes/100 WBC (Bld) 0.400 % 0.0-0.9 [facility] Comment on above: IG% - Immature Granu locytes (promyelocytes, myelocytes and metamyelocytes) > 1% indicates that a LEFT SHIFT is Present. MCH (RBC) [Entitic mass] 27.9 pg 27.0-32.0 [facility] Nucleated RBC/100 WBC (Bld) [Ratio] 0 % 0-5 [facility] MCHC Auto (RBC) [Mass/Vol]Or dered By: David Mckinney on 07-04-2023 MCHC (RBC) [Mass/Vol] 31.6 g/dL 32-36 [facility] Mucus LM Ql (Urine sed)Order ed By: David Mckinney on 07-04-2023 Mucus Ql (Urine sed) 0 SEEN /hpf [facility] Nitrite Test strip Ql (U)Ord ered By: David Mckinney on 07-04-2023 Nitrite Ql (U) Positive Negative [facility] Platelets bldOrdered By: Maya Mckinney on 07-04-2023 Platelets (Bld) [#/Vol] 218 10*3/uL 150-450 [facility] Protein Test strip Ql (U)Ord ered By: David Mckinney on 07-04-2023 Protein Ql (U) Negative Negative [facility] Serum or plasma progesterone measurement (mass/volume)Ordered By: David Mckinney on 07-04-2023 Progesterone [Mass/Vol] 2.17 ng/mL See Comment [facility] Comment on above: Progesterone Referen ce Table: [...] Ql (Urine sed) 5-10 SEEN /hpf 5-10 [facility] Urine blood detectionOrdered By: David Mckinney on 07-04-2023 RBC Ql (U) 10 /ul Negative [facility] RBC Ql (U) 0 SEEN /hpf 0-5 [facility] Urine clarityOrdered By: Maya Mckinney on 07-04-2023 Clarity (U) Cloudy Clear [facility] Urine color determinationOrd ered By: David Mckinney on 07-04-2023 Color (U) Yellow Yellow [facility] Urine glucose detectionOrder ed By: David Mckinney on 07-04-2023 Glucose Ql (U) Normal mg/dl Normal [facility] Urine leukocyte esterase det ection by dipstickOrdered By: David Mckinney on 07-04-2023 Leukocyte esterase Test strip Ql (U) 100 /ul Negative [facility] Urine pHOrdered By: David aviles on 07-04-2023 pH (U) 6.0 [pH] 5.0 - 8.0 [facility] Urine sediment bacteria coun t by microscopy (number/high power field)Ordered By: David Mckinney on 07-04-2023 Bacteria LM.HPF (Urine sed) [#/Area] 3 /[HPF] None Seen [facility] Urine specific gravity measu rementOrdered By: David Mckinney on 07-04-2023 Specific gravity (U) [Rel density] 1.015 1.002-1.030 [facility] Urobilinogen Auto test strip Ql (U)Ordered By: David Mckinney on 07-04-2023 Urobilinogen Ql (U) Normal mg/dl Normal [facility] Beta hCG serum qualOrdered B y: Alex Dubois on 06-10-2023 Beta HCG ( test) Ql Negative [facility] Influenza virus A and B and SARS-CoV-2 (COVID-19) Ag panel - Upper respiratory specimOrdered By: Chantal Perez on 05-11-2023 SARS-CoV-2 (COVID-19) RNA OFELIA+probe Ql (Resp) [facility] Upper respiratory specimen i nfluenza A virus, influenza B virus, and severe acute respiratory syndromOrdered By: Chantal Perez on 05-11-2023 Upper respiratory specimen influenza A virus, influenza B virus, and severe acute respiratory syndrom [facility] Absolute lymphocyte countOrd ered By: David Mckinney on 05-01-2023 Lymphocytes Auto (Unsp spec) [#/Vol] 2.12 10*3/uL 0.83-4.51 [facility] Basophil percentageOrdered B y: David Mckinney on 05-01-2023 Basophils/100 WBC (Bld) 0.9 % 0-1 [facility] Bilirubin [Mass/Vol] 0.30 mg/dL 0.20-1.00 [facility] Comment on above: For patients on eltr ombopag therapy, use of Dimension [place] TBIL is not recommended. Chloride [Moles/Vol] 106 mmol/L 98-107 [facility] Eosinophils/100 WBC (Bld) 5.4 % 0-5 [facility] Glucose [Mass/Vol] 90 mg/dL 74-106 [facility] Neutrophils (Bld) [#/Vol] 4.3 10*3/uL 2.0-7.7 [facility] Neutrophils/100 WBC (Bld) 58.5 % 47-70 [facility] Potassium [Moles/Vol] 3.7 mmol/L 3.5-5.1 [facility] Protein [Mass/Vol] 7.8 g/dL 6.4-8.2 [facility] Sodium [Moles/Vol] 138 mmol/L 136-145 [facility] WBC (Bld) [#/Vol] 7.4 10*3/uL 4.4-11.0 [facility] Blood erythrocytes count (nu mber/volume)Ordered By: David Mckinney on 05-01-2023 RBC (Bld) [#/Vol] 4.73 10*6/uL 4.2-5.4 [facility] Blood hemoglobin measurement (mass/volume)Ordered By: David Mckinney on 05-01-2023 Hemoglobin (Bld) [Mass/Vol] 13.1 g/dL 12.0-15.0 [facility] Blood lymphocytes/100 leukoc ytesOrdered By: David Mckinney on 05-01-2023 Lymphocytes/100 WBC (Bld) 28.7 % 19-41 [facility] Blood monocytes/100 leukocyt esOrdered By: David Mckinney on 05-01-2023 Monocytes/100 WBC (Bld) 6.2 % 0-10 [facility] Blood platelet mean volumeOr dered By: David Mckinney on 05-01-2023 Platelet mean volume (Bld) [Entitic vol] 13.0 fL 6.2-12.0 [facility] Determination of erythrocyte mean corpuscular volume (MCV)Ordered By: David Mckinney on 05-01-2023 MCV (RBC) [Entitic vol] 88.8 fL 81-99 [facility] Hematocrit Auto (Bld) [Volum e fraction]Ordered By: David Mckinney on 05-01-2023 Hematocrit (Bld) [Volume fraction] 42.0 % 37-47 [facility] Laboratory - Chemistry and C hemistry - challengeOrdered By: David Mckinney on 05-01-2023 ALP [Catalytic activity/Vol] 95 U/L 45-117 [facility] ALT [Catalytic activity/Vol] 33 U/L 13-56 [facility] CO2 [Moles/Vol] 26.0 mmol/L 21.0-32.0 [facility] Globulin (S) [Mass/Vol] 3.9 g/dL 2.2-4.2 [facility] Urea nitrogen/Creatinine [Mass ratio] 25.6 mg/mg 10-20 [facility] Laboratory - Hematology and Cell countsOrdered By: David Mckinney on 05-01-2023 Erythrocyte distribution width (RBC) [Entitic vol] 41.9 fL 35.1-43.9 [facility] Erythrocyte distribution width (RBC) [Ratio] 12.8 % 11.6-14.6 [facility] Immature granulocytes/100 WBC (Bld) 0.300 % 0.0-0.9 [facility] Comment on above: IG% - Immature Granu locytes (promyelocytes, myelocytes and metamyelocytes) > 1% indicates that a LEFT SHIFT is Present. MCH (RBC) [Entitic mass] 27.7 pg 27.0-32.0 [facility] Nucleated RBC/100 WBC (Bld) [Ratio] 0 % 0-5 [facility] MCHC Auto (RBC) [Mass/Vol]Or dered By: David Mckinney on 05-01-2023 MCHC (RBC) [Mass/Vol] 31.2 g/dL 32-36 [facility] No Panel InformationOrdered By: David Mckinney on 05-01-2023 Estimated GFR (MDRD) Amer 129 mL/min >60 [facility] Comment on above: GFR Calc Estimated GFR (MDRD) Non-Af Amer 107 mL/min >60 [facility] Comment on above: Non- GFR Calc Thyroid Stimulating Hormone (TSH) 0.63 uIU/mL 0.358-3.74 [facility] Platelets bldOrdered By: Maya Mckinney on 05-01-2023 Platelets (Bld) [#/Vol] 215 10*3/uL 150-450 [facility] Serum or plasma albumin roopa urement (mass/volume)Ordered By: David Mckinney on 05-01-2023 Albumin [Mass/Vol] 3.9 g/dL 3.2-5.0 [facility] Serum or plasma albumin/glob ulin mass ratioOrdered By: David Mckinney on 05-01-2023 Albumin/Globulin [Mass ratio] 1.0 {ratio} 0.9-2.4 [facility] Serum or plasma calcium roopa urement (mass/volume)Ordered By: David Mckinney on 05-01-2023 Calcium [Mass/Vol] 8.8 mg/dL 8.5-10.1 [facility] Serum or plasma creatinine m easurement (mass/volume)Ordered By: David Mckinney on 05-01-2023 Creatinine [Mass/Vol] 0.70 mg/dL 0.55-1.02 [facility] Comment on above: The validity of the calculated GFR & GFRAA in patients over 70 years has not been determined. Clinical correlation is essential. Serum or plasma prolactin me asurement (mass/volume)Ordered By: David Mckinney on 05-01-2023 Prolactin [Mass/Vol] 17.6 ng/mL [facility] Comment on above: NORMAL REFERENCE RAN GES FEMALE NON- 2.2 - 30.3 ng/mL 8.1 - 347.6 ng/mL POST-MENOPAUSAL 0.7 - 31.5 ng/mL MALE 2.5 - 17.4 ng/mL Serum or plasma urea nitroge n measurement (mass/volume)Ordered By: David Mckinney on 05-01-2023 Urea nitrogen [Mass/Vol] 18 mg/dL 7-18 [facility] Thin prep Papanicolaou smear with manual screeningOrdered By: David Mckinney on 05-01-2023 Thin prep Papanicolaou smear with manual screening 12 U/L 15-37 [facility] Thin prep Papanicolaou smear with manual screening 6 5-15 [facility] Absolute lymphocyte countOrd ered By: David Mckinney on 03-12-2023 Lymphocytes Auto (Unsp spec) [#/Vol] 1.89 10*3/uL 0.83-4.51 [facility] Alternaria alternata IgE ser umOrdered By: David Mckinney on 03-12-2023 A. alternata IgE Qn (S) <0.10 kU/L Class 0 [facility] A. alternata IgE Qn (S) Not Reportable [facility] Basophil percentageOrdered B y: David Mckinney on 03-12-2023 Basophils/100 WBC (Bld) 0.7 % 0-1 [facility] Eosinophils/100 WBC (Bld) 4.7 % 0-5 [facility] Neutrophils (Bld) [#/Vol] 3.4 10*3/uL 2.0-7.7 [facility] Neutrophils/100 WBC (Bld) 56.4 % 47-70 [facility] WBC (Bld) [#/Vol] 6.0 10*3/uL 4.4-11.0 [facility] Blood erythrocytes count (nu mber/volume)Ordered By: David Mckinney on 03-12-2023 RBC (Bld) [#/Vol] 4.94 10*6/uL 4.2-5.4 [facility] Blood hemoglobin measurement (mass/volume)Ordered By: David Mckinney on 03-12-2023 Hemoglobin (Bld) [Mass/Vol] 13.3 g/dL 12.0-15.0 [facility] Blood lymphocytes/100 leukoc ytesOrdered By: David Mckinney on 03-12-2023 Lymphocytes/100 WBC (Bld) 31.8 % 19-41 [facility] Blood monocytes/100 leukocyt esOrdered By: David Mckinney on 03-12-2023 Monocytes/100 WBC (Bld) 6.2 % 0-10 [facility] Blood platelet mean volumeOr dered By: David Mckinney on 03-12-2023 Platelet mean volume (Bld) [Entitic vol] 12.7 fL 6.2-12.0 [facility] Chocolate RASTOrdered By: Davidson Mckinney on 03-12-2023 Chocolate IgE Qn (S) <0.10 kU/L Class 0 [facility] Comment on above: Effective March 24, 2023 [id number] Allergen Profile, BasicFood be made non-orderable. [facility] offers [id number](14). Determination of erythrocyte mean corpuscular volume (MCV)Ordered By: David Mckinney on 03-12-2023 MCV (RBC) [Entitic vol] 86.0 fL 81-99 [facility] Hematocrit Auto (Bld) [Volum e fraction]Ordered By: David Mckinney on 03-12-2023 Hematocrit (Bld) [Volume fraction] 42.5 % 37-47 [facility] Laboratory - AllergyOrdered By: David Mckinney on 03-12-2023 Sweet gum IgE RAST class (S) <0.10 kU/L Class 0 [facility] Laboratory - Hematology and Cell countsOrdered By: David Mckinney on 03-12-2023 Erythrocyte distribution width (RBC) [Entitic vol] 40.7 fL 35.1-43.9 [facility] Erythrocyte distribution width (RBC) [Ratio] 13.1 % 11.6-14.6 [facility] Immature granulocytes/100 WBC (Bld) 0.200 % 0.0-0.9 [facility] Comment on above: IG% - Immature Granu locytes (promyelocytes, myelocytes and metamyelocytes) > 1% indicates that a LEFT SHIFT is Present. MCH (RBC) [Entitic mass] 26.9 pg 27.0-32.0 [facility] Nucleated RBC/100 WBC (Bld) [Ratio] 0 % 0-5 [facility] Laboratory - Miscellaneous t estsOrdered By: David Mckinney on 03-12-2023 Service comment (Unsp spec) [Interp] Comment . [facility] Comment on above: Levels of Specific I [...] MCHC (RBC) [Mass/Vol] 31.3 g/dL 32-36 [facility] No Panel InformationOrdered By: David Mckinney on 03-12-2023 Aspergillus fumigatus Allergen <0.10 kU/L Class 0 [facility] Common Ragweed (Short) Allergen <0.10 kU/L Class 0 [facility] Australian Plantain Allergen (RAST) <0.10 kU/L Class 0 [facility] Maple ([place]) Allergen IgE Ab 0.27 kU/L Class 0/I [facility] Seafood Group Allergens (RAST) Negative . [facility] Comment on above: Allergens in this mi x are: Blue mussel Fish [place] Shrimp TunaEffective March 24, 2023 [id number] Food Mix(Seafoods) will be made non-orderable. [facility] [id number] Allergens(5). [place] Tree Allergen <0.10 kU/L Class 0 [facility] Cat Hair Allergen Not Reportable [facility] Immunoglobulin E See comment [facility] Comment on above: TEST RESULT LIMITSCl ass Description: Levels of Specific IgE Class Description of Class ----- < 0.10 0 Negative 0.10 - 0.31 0/I Equivocal/Low 0.32 - 0.55 I Low 0.56 - 1.40 II Moderate 1.41 - 3.90 III High 3.91 - 19.00 IV Very High19.01 - 100.00 V Very High >100.00 Very [id number] D pteronyssinus <0.10 kU/L Class [id number]-GbE D farinae <0.10 kU/L Class 2B978-FxH Cat Dander <0.10 kU/L Class 3D806-IjW Dog Dander <0.10 kU/L Class 4U862-UdA [place] Grass 0.11 Abnormal kU/L Class 0/LM162-KmZ [place] Grass, Perennial <0.10 kU/L Class 4X583-MiY Reece Grass 0.10 Abnormal kU/L Class 0/VU333-DoQ [place] Grass <0.10 kU/L Class 0*N633-ViS Cockroach, [place] <0.10 kU/L Class 5R068-UbY Penicillium chrysogen <0.10 kU/L Class 5B819-WgZ Cladosporium herbarum <0.10 kU/L Class 1G949-JtF Aspergillus fumigatus <0.10 kU/L Class 5M825-QiC Mucor racemosus <0.10 kU/L Class 6G063-WgU Alternaria alternata <0.10 kU/L Class 6T771-EfM Stemphylium herbarum <0.10 kU/L Class 8N640-OnU Elm, [place] 0.27 Abnormal kU/L Class 0/TH775-BzR Eucalyptus <0.10 kU/L Class 4E888-YkF Maple/[place] 0.37 Abnormal kU/L Class DJ729-BpB [place], Montene[place]in <0.10 kU/L Class 0*U814-LeC Pepper Tree 0.20 Abnormal kU/L Class 0/I*C018-KqY [place], Live/Radha <0.10 kU/L Class 9A047-WcS Privet, Common <0.10 kU/L Class 0*A976-LyF Bayberry/Sweet Gale <0.10 kU/L Class 7P294-BpN Palm, Bat[place] <0.10 kU/L Class 2F897-GaP Ragweed, Short 0.11 Abnormal kU/L Class 0/CG888-UlV Plantain, Australian <0.10 kU/L Class 4N616-XgN [place] <0.10 kU/L Class 1M740-HvC Sheep [place] <0.10 kU/L Class 0*K837-PbJ Fennel, Dog <0.10 kU/L Class 0Tests with asterisk (*) were developed and had performancecharacteristics determined by [facility]. These tests have not been cleared or approved by the U.S. Food and Drug Administration.The FDA has determined that such clearance or approval is notnecessary. These tests are used for clinical purposes. These tests should not be regarded as investigational or for research. ____ TESTING PERFORMED AT [facility]. ORIGINAL REPORT ON FILE IN LAB CONTAINS ADDITIONAL TEST SITE INFORMATION. Mouse Urine Allergen IgE Antibody Not Reportable [facility] Platelets bldOrdered By: Maya Mckinney on 03-12-2023 Platelets (Bld) [#/Vol] 183 10*3/uL 150-450 [facility] Rough pigweed specific IgE a ntibody assayOrdered By: David Mckinney on 03-12-2023 Rough Pigweed IgE Qn (S) <0.10 kU/L Class 0 [facility] Serum Aspergillus fumigatus IgE antibody assay (units/volume)Ordered By: David Mckinney on 03-12-2023 A. fumigatus IgE Qn (S) Not Reportable [facility] Serum Bermuda grass IgE anti body assay (units/volume)Ordered By: David Mckinney on 03-12-2023 [place] grass IgE Qn (S) 0.12 kU/L Class 0/I [facility] B[place] grass IgE Qn (S) Not Reportable [facility] Serum Cladosporium herbarum IgE antibody assay (units/volume)Ordered By: David Mckinney on 03-12-2023 C. herbarum IgE Qn (S) <0.10 kU/L Class 0 [facility] C. herbarum IgE Qn (S) Not Reportable [facility] Serum Dermatophagoides farin ae specific IgE antibody assay (units/volume)Ordered By: David Mckinney on 03-12-2023 [place] house dust mite IgE Qn (S) <0.10 kU/L Class 0 [facility] Serum house dust mi te IgE antibody assay (units/volume)Ordered By: David Mckinney on 03-12-2023 house dust mite IgE Qn (S) <0.10 kU/L Class 0 [facility] house dust mite IgE Qn (S) Not Reportable [facility] Serum Reece grass IgE anti body assay (units/volume)Ordered By: David Mckinney on 03-12-2023 Reece grass IgE Qn (S) 0.12 kU/L Class 0/I [facility] Serum [place] blue grass Ig E antibody assay (units/volume)Ordered By: David Mckinney on 03-12-2023 [place] blue grass IgE Qn (S) <0.10 kU/L Class 0 [facility] Serum Mucor racemosus IgE an tibody assay (units/volume)Ordered By: David Mckinney on 03-12-2023 Mucor racemosus IgE Qn (S) <0.10 kU/L Class 0 [facility] Serum Penicillium notatum Ig E antibody assay (units/volume)Ordered By: David Mckinney on 03-12-2023 P. notatum IgE Qn (S) <0.10 kU/L Class 0 [facility] Serum Periplaneta americana IgE antibody assay (units/volume)Ordered By: David Mckinney on 03-12-2023 [place] Cockroach IgE Qn (S) <0.10 kU/L Class 0 [facility] Serum Albanian thistle specif ic IgE antibody assayOrdered By: David Mckinney on 03-12-2023 Saltwort IgE Qn (S) Not Reportable [facility] Serum bahia grass IgE antibo dy assay (units/volume)Ordered By: David Mckinney on 03-12-2023 Bahia grass IgE Qn (S) <0.10 kU/L Class 0 [facility] Serum beef IgE antibody assa y (units/volume)Ordered By: David Mckinney on 03-12-2023 Beef IgE Qn (S) <0.10 kU/L Class 0 [facility] Serum birch specific IgE ant ibody assayOrdered By: David Mckinney on 03-12-2023 Silver Birch IgE Qn (S) Not Reportable [facility] Serum black walnut IgE antib pinky assay (units/volume)Ordered By: David Mckinney on 03-12-2023 Black [place] IgE Qn (S) 0.72 kU/L Class II [facility] Comment on above: Performed at: [address] [id number] Director: Jordan Chew MD, Phone: [phone] [place] IgE Qn (S) Not Reportable [facility] Serum cat dander IgE antibod y assay (units/volume)Ordered By: aDvid Mckinney on 03-12-2023 Cat dander IgE Qn (S) <0.10 kU/L Class 0 [facility] Serum corn IgE antibody assa y (units/volume)Ordered By: David Mckinney on 03-12-2023 [place] IgE Qn (S) 0.60 kU/L Class II [facility] Serum cottonwood IgE antibod y assay (units/volume)Ordered By: David Mckinney on 03-12-2023 [place] IgE Qn (S) Not Reportable [facility] Serum cow milk IgE antibody assay (units/volume)Ordered By: David Mckinney on 03-12-2023 Cow milk IgE Qn (S) <0.10 kU/L Class 0 [facility] Serum dog epithelium IgE ant ibody assay (units/volume)Ordered By: David Mckinney on 03-12-2023 Dog epithelium IgE Qn (S) <0.10 kU/L Class 0 [facility] Serum hazelnut pollen IgE an tibody assay (units/volume)Ordered By: David Mckinney on 03-12-2023 Hazelnut Pollen IgE Qn (S) <0.10 kU/L Class 0 [facility] Serum mountain cedar specifi c IgE antibody assayOrdered By: David Mckinney on 03-12-2023 Mountain Juniper IgE Qn (S) <0.10 kU/L Class 0 [facility] Serum mugwort IgE antibody a ssay (units/volume)Ordered By: David Mckinney on 03-12-2023 Mugwort IgE Qn (S) <0.10 kU/L Class 0 [facility] Serum nettle IgE antibody as say (units/volume)Ordered By: David Mckinney on 03-12-2023 Nettle IgE Qn (S) <0.10 kU/L Class 0 [facility] Serum peanut IgE antibody as say (units/volume)Ordered By: David Mckinney on 03-12-2023 Peanut IgE Qn (S) 0.77 kU/L Class II [facility] Serum pecan or hickory nut I gE antibody assay (units/volume)Ordered By: David Mckinney on 03-12-2023 Pecan or [place] Nut IgE Qn (S) Not Reportable [facility] Serum pork IgE antibody assa y (units/volume)Ordered By: David Mckinney on 03-12-2023 Pork IgE Qn (S) <0.10 kU/L Class 0 [facility] Serum sheep sorrel IgE antib pinky assay (units/volume)Ordered By: David Mckinney on 03-12-2023 Sheep [place] IgE Qn (S) <0.10 kU/L Class 0 [facility] Sheep [place] IgE Qn (S) Not Reportable [facility] Serum soybean IgE antibody a ssay (units/volume)Ordered By: David Mckinney on 03-12-2023 Soybean IgE Qn (S) <0.10 kU/L Class 0 [facility] Serum prosper IgE antibody a ssay (units/volume)Ordered By: David Mckinney on 03-12-2023 Prosper IgE Qn (S) Not Reportable [facility] Serum wheat IgE antibody ass ay (units/volume)Ordered By: David Mckinney on 03-12-2023 Wheat IgE Qn (S) 0.16 kU/L Class 0/I [facility] Serum white deandre IgE antibody assay (units/volume)Ordered By: David Mckinney on 03-12-2023 White Deandre IgE Qn (S) Not Reportable [facility] Serum white elm IgE antibody assay (units/volume)Ordered By: David Mckinney on 03-12-2023 White Elm IgE Qn (S) 0.27 kU/L Class 0/I [facility] White Elm IgE Qn (S) Not Reportable [facility] Serum white hickory IgE anti body assay (units/volume)Ordered By: David Mckinney on 03-12-2023 White [place] IgE Qn (S) <0.10 kU/L Class 0 [facility] Serum white mulberry IgE ant ibody assay (units/volume)Ordered By: David Mckinney on 03-12-2023 White mulberry IgE Qn (S) 0.18 kU/L Class 0/I [facility] White mulberry IgE Qn (S) Not Reportable [facility] Serum white oak IgE antibody assay (units/volume)Ordered By: David Mckinney on 03-12-2023 [place] IgE Qn (S) <0.10 kU/L Class 0 [facility] Serum whole egg IgE antibody assay (units/volume)Ordered By: David Mckinney on 03-12-2023 Whole Egg IgE Qn (S) <0.10 kU/L Class 0 [facility] Stemphylium herbarum IgE ser umOrdered By: David Mckinney on 03-12-2023 Stemphylium botryosum IgE Qn (S) <0.10 kU/L Class 0 [facility] Influenza virus A and B and SARS-CoV-2 (COVID-19) Ag panel - Upper respiratory specimOrdered By: Margarita Griggs on 02-24-2023 SARS-CoV-2 (COVID-19) RNA OFELIA+probe Ql (Resp) [facility] SARS-CoV-2 (COVID-19) RNA OFELIA+probe Ql (Resp) [facility] Throat Streptococcus pyogene s antigen detection by immunofluorescenceOrdered By: Margarita Griggs on 02-24-2023 S. pyogenes Ag IF Ql (Throat) [facility] S. pyogenes Ag IF Ql (Throat) [facility] Absolute lymphocyte countOrd ered By: Zamzam Olson on 12-26-2022 Lymphocytes Auto (Unsp spec) [#/Vol] 1.94 10*3/uL 0.83-4.51 [facility] Basophil percentageOrdered B y: Zamzam Olson on 12-26-2022 Basophils/100 WBC (Bld) 1.2 % 0-1 [facility] Eosinophils/100 WBC (Bld) 5.6 % 0-5 [facility] Neutrophils (Bld) [#/Vol] 3.1 10*3/uL 2.0-7.7 [facility] Neutrophils/100 WBC (Bld) 52.9 % 47-70 [facility] WBC (Bld) [#/Vol] 5.9 10*3/uL 4.4-11.0 [facility] Blood erythrocytes count (nu mber/volume)Ordered By: Zamzam Olson on 12-26-2022 RBC (Bld) [#/Vol] 5.10 10*6/uL 4.2-5.4 [facility] Blood hemoglobin measurement (mass/volume)Ordered By: Zamzam Olson on 12-26-2022 Hemoglobin (Bld) [Mass/Vol] 14.0 g/dL 12.0-15.0 [facility] Blood lymphocytes/100 leukoc ytesOrdered By: Zamzam Olson on 12-26-2022 Lymphocytes/100 WBC (Bld) 33.0 % 19-41 [facility] Blood monocytes/100 leukocyt esOrdered By: Zamzam Olson on 12-26-2022 Monocytes/100 WBC (Bld) 7.1 % 0-10 [facility] Blood platelet mean volumeOr dered By: Zamzam Olson on 12-26-2022 Platelet mean volume (Bld) [Entitic vol] 12.6 fL 6.2-12.0 [facility] Culture, urineOrdered By: Ame Olson on 12-26-2022 Bacteria identified Cx Nom (U) Escherichia coli [facility] Determination of erythrocyte mean corpuscular volume (MCV)Ordered By: Zamzam Olson on 12-26-2022 MCV (RBC) [Entitic vol] 85.3 fL 81-99 [facility] Hematocrit Auto (Bld) [Volum e fraction]Ordered By: Zamzam Olson on 12-26-2022 Hematocrit (Bld) [Volume fraction] 43.5 % 37-47 [facility] Iron measurement (mass/mass) Ordered By: Zamzam Olson on 12-26-2022 Iron (Unsp spec) [Mass/Mass] 74 ug/dL 50-170 [facility] Laboratory - Hematology and Cell countsOrdered By: Zamzam Olson on 12-26-2022 Erythrocyte distribution width (RBC) [Entitic vol] 39.5 fL 35.1-43.9 [facility] Erythrocyte distribution width (RBC) [Ratio] 12.7 % 11.6-14.6 [facility] Immature granulocytes/100 WBC (Bld) 0.200 % 0.0-0.9 [facility] Comment on above: IG% - Immature Granu locytes (promyelocytes, myelocytes and metamyelocytes) > 1% indicates that a LEFT SHIFT is Present. MCH (RBC) [Entitic mass] 27.5 pg 27.0-32.0 [facility] Nucleated RBC/100 WBC (Bld) [Ratio] 0 % 0-5 [facility] MCHC Auto (RBC) [Mass/Vol]Or dered By: Zamzam Olson on 12-26-2022 MCHC (RBC) [Mass/Vol] 32.2 g/dL 32-36 [facility] No Panel InformationOrdered By: Zamzam Olson on 12-26-2022 Total Iron Binding Capacity 447 ug/dL 250-450 [facility] Platelets bldOrdered By: Elizabeth Olson on 12-26-2022 Platelets (Bld) [#/Vol] 215 10*3/uL 150-450 [facility] Serum or plasma ferritin naresh surement (mass/volume)Ordered By: Zamzam Olson on 12-26-2022 Ferritin [Mass/Vol] 11 ng/mL 8-252 [facility] Serum or plasma iron saturat ion measurement (mass fraction)Ordered By: Zamzam Olson on 12-26-2022 Iron saturation [Mass fraction] 16.6 % 15.0-55.0 [facility] Cervical or vagninal specime n microscopic examination by cytology stain (reported asOrdered By: Jorge Ewing on 10-30-2022 Cytology report Cyto stain Doc (Cvx/Vag) Comment . [facility] Comment on above: The Pap smear is a s creening test designed to aid in thedetection of premalignant and malignant conditions of theuterine cervix. It is not a diagnostic procedure andshould not be used as the sole means of detecting cervicalcancer. Both false-positive and false-negative reports dooccur. Laboratory - CytologyOrdered By: Jorge Ewing on 10-30-2022 Portfolio Accountant Cyto stain Nom (Cvx/Vag) [ID] Comment . [facility] Comment on above: Francesco Walsh totechnologist (ASCP) Laboratory - Miscellaneous t estsOrdered By: Jorge Ewing on 10-30-2022 Service comment (Unsp spec) [Interp] Comment . [facility] Comment on above: This liquid based Th inPrep(R) pap test was screened withthe use of an image guided system. Service comment (Unsp spec) [Interp] . . [facility] No Panel InformationOrdered By: Jorge Ewing on 10-30-2022 Human Papillomavirus Screen Comment . [facility] Comment on above: The HPV DNA reflex c tenisha were not met with this specimenresult therefore, no HPV testing was performed.Performed at: [address] [id number] Director: Autumn Cancino MD, Phone: [phone] Pathology report final diagnosis Narrative Comment . [facility] Comment on above: NEGATIVE FOR INTRAEP ITHELIAL LESION OR MALIGNANCY.TRICHOMONAS VAGINALIS IS PRESENT. Culture, urineOrdered By: Dr Tameka Ewing on 08-17-2022 Bacteria identified Cx Nom (U) Positive [facility] Basophil percentageon 2021 Basophil percentage 10-25 SEEN /hpf 0-5 [facility] Work Phone: Bilirubin [Mass/Vol] 0.40 mg/dL 0.20-1.00 [facility] Work Phone: Comment on above: For patients on eltr ombopag therapy, use of Dimension [place] TBIL is not recommended. Chloride [Moles/Vol] 108 mmol/L 98-107 [facility] Work Phone: Glucose [Mass/Vol] 59 mg/dL 74-106 [facility] Work Phone: [phone] Potassium [Moles/Vol] 3.8 mmol/L 3.5-5.1 [facility] Work Phone: [phone] Protein [Mass/Vol] 6.6 g/dL 6.4-8.2 [facility] Work Phone: [phone] Sodium [Moles/Vol] 137 mmol/L 136-145 [facility] Work Phone: [phone] WBC (Bld) [#/Vol] 10.5 10*3/uL 4.4-11.0 [facility] Work Phone: [phone] Bilirubin Test strip Ql (U)o n 02-20-2022 Bilirubin Ql (U) Negative Negative [facility] Work Phone: [phone] Blood erythrocytes count (nu mber/volume)on 02-20-2022 RBC (Bld) [#/Vol] 3.83 10*6/uL 4.2-5.4 [facility] Work Phone: [phone] Blood hemoglobin measurement (mass/volume)on 02-20-2022 Hemoglobin (Bld) [Mass/Vol] 10.1 g/dL 12.0-15.0 [facility] Work Phone: Blood platelet mean volumeon 02-20-2022 Platelet mean volume (Bld) [Entitic vol] 12.8 fL 6.2-12.0 [facility] Work Phone: [phone] Determination of erythrocyte mean corpuscular volume (MCV)on 02-20-2022 MCV (RBC) [Entitic vol] 83.3 fL 81-99 [facility] Work Phone: [phone] Hematocrit Auto (Bld) [Volum e fraction]on 02-20-2022 Hematocrit (Bld) [Volume fraction] 31.9 % 37-47 [facility] Work Phone: Ketones Test strip Ql (U)on 02-20-2022 Ketones Ql (U) Negative Negative [facility] Work Phone: Laboratory - Chemistry and C hemistry - challengeon 02-20-2022 ALP [Catalytic activity/Vol] 194 U/L 45-117 [facility] Work Phone: ALT [Catalytic activity/Vol] 16 U/L 13-56 [facility] Work Phone: CO2 [Moles/Vol] 22.0 mmol/L 21.0-32.0 [facility] Work Phone: Globulin (S) [Mass/Vol] 4.0 g/dL 2.2-4.2 [facility] Work Phone: Urea nitrogen/Creatinine [Mass ratio] 18.0 mg/mg 10-20 [facility] Work Phone: Laboratory - Drug toxicology on 02-20-2022 Benzodiazepines Ql (U) Negative < 200 ng/mL [facility] Work Phone: Cannabinoids Screen Ql (U) Negative < 50 ng/mL [facility] Work Phone: Cocaine Ql (U) Negative < 300 ng/mL [facility] Work Phone: Opiates Ql (U) Negative < 300 ng/mL [facility] Work Phone: Laboratory - Hematology and Cell countson 02-20-2022 Erythrocyte distribution width (RBC) [Entitic vol] 44.0 fL 35.1-43.9 [facility] Work Phone: Erythrocyte distribution width (RBC) [Ratio] 14.6 % 11.6-14.6 [facility] Work Phone: MCH (RBC) [Entitic mass] 26.4 pg 27.0-32.0 [facility] Work Phone: MCHC Auto (RBC) [Mass/Vol]on 02-20-2022 MCHC (RBC) [Mass/Vol] 31.7 g/dL 32-36 [facility]: Mucus LM Ql (Urine sed)on Mucus Ql (Urine sed) 1+ /hpf [facility] Work Phone: Nitrite Test strip Ql (U)on 02-20-2022 Nitrite Ql (U) Negative Negative [facility] Work Phone: No Panel Informationon 02-20 MDMA (Ecstasy) Screen Negative < 500 ng/mL [facility] Work Phone: Urine Barbiturates Screen Negative < 200 ng/mL [facility] Work Phone: Urine Drug Screen Comment [facility] Work Phone: Comment on above: CONFIRMATORY TESTING [...] Urine Methadone Screen Negative < 300 ng/mL [facility] Work Phone: Urine Trichomonas 0-5 SEEN /hpf None Seen [facility] Work Phone: Estimated Creatinine Clearance Calc 198.42 ml/min [facility] Work Phone: Estimated GFR (MDRD) Amer 259 mL/min >60 [facility] Work Phone: Comment on above: GFR Calc Estimated GFR (MDRD) Non-Af Amer 214 mL/min >60 [facility] Work Phone: Comment on above: Non- GFR Calc Platelets bldon 02-20-2022 Platelets (Bld) [#/Vol] 171 10*3/uL 150-450 [facility] Work Phone: Protein Test strip Ql (U)on 02-20-2022 Protein Ql (U) 15 mg/dl Negative [facility] Work Phone: Serum or plasma albumin roopa urement (mass/volume)on 02-20-2022 Albumin [Mass/Vol] 2.6 g/dL 3.2-5.0 [facility] Work Phone: Serum or plasma albumin/glob ulin mass ratioon 02-20-2022 Albumin/Globulin [Mass ratio] 0.6 {ratio} 0.9-2.4 [facility] Work Phone: Serum or plasma calcium roopa urement (mass/volume)on 02-20-2022 Calcium [Mass/Vol] 8.7 mg/dL 8.5-10.1 [facility] Work Phone: Serum or plasma creatinine m easurement (mass/volume)on 02-20-2022 Creatinine [Mass/Vol] 0.39 mg/dL 0.55-1.02 [facility] Work Phone: Comment on above: The validity of the calculated GFR & GFRAA in patients over 70 years has not been determined. Clinical correlation is essential. Serum or plasma urea nitroge n measurement (mass/volume)on 02-20-2022 Urea nitrogen [Mass/Vol] 7 mg/dL 7-18 [facility] Work Phone: Serum or plasma uric acid me asurement (mass/volume)on 02-20-2022 Urate [Mass/Vol] 3.9 mg/dL 2.6-6.0 [facility] Work Phone: Comment on above: The drugs N-Acetylcy steine and Metamizole may falsely depress this assay. Squamous epithelial cells de tection in urine sediment by light microscopyon 02-20-2022 Epithelial cells.squamous LM Ql (Urine sed) 10-25 SEEN /hpf 5-10 [facility] Work Phone: Thin prep Papanicolaou smear with manual screeningon 02-20-2022 Thin prep Papanicolaou smear with manual screening 16 U/L 15-37 [facility] Work Phone: Thin prep Papanicolaou smear with manual screening 7 5-15 [facility] Work Phone: Thin prep Papanicolaou smear with manual screening 170 U/L 84-246 [facility] Work Phone: Urine amphetamine measuremen t (moles/volume)on 02-20-2022 Amphetamine (U) [Moles/Vol] Negative <1000 ng/mL [facility] Work Phone: Urine blood detectionon 08-3 RBC Ql (U) 250 /ul Negative [facility] Work Phone: RBC Ql (U) 5-10 SEEN /hpf 0-5 [facility] Work Phone: Urine clarityon 02-20-2022 Clarity (U) Sl. Cloudy Clear [facility] Work Phone: Urine color determinationon 02-20-2022 Color (U) Yellow Yellow [facility] Work Phone: Urine creatinine measurement (mass/volume)on 02-20-2022 Creatinine (U) [Mass/Vol] 109.00 mg/dL NO RANGE EST. [facility] Work Phone: Urine glucose detectionon Glucose Ql (U) 250 mg/dl Normal [facility] Work Phone: Urine leukocyte esterase det ection by dipstickon 02-20-2022 Leukocyte esterase Test strip Ql (U) 500 /ul Negative [facility] Work Phone: [phone] Urine pHon 02-20-2022 pH (U) 6.0 [pH] 5.0 - 8.0 [facility] Work Phone: Urine phencyclidine (PCP) de tectionon 02-20-2022 Phencyclidine Ql (U) Negative < 25 ng/mL [facility] Work Phone: Urine protein measurement (m ass/volume)on 02-20-2022 Protein (U) [Mass/Vol] 20.4 mg/dL 0.0-11.8 [facility] Work Phone: Urine protein/creatinine mas s ratioon 02-20-2022 Protein/Creatinine (U) [Mass ratio] 187 mg/g CRE 0-200 [facility] Work Phone: Urine sediment bacteria coun t by microscopy (number/high power field)on 02-20-2022 Bacteria LM.HPF (Urine sed) [#/Area] 4 /[HPF] None Seen [facility] Work Phone: Urine specific gravity measu rementon 02-20-2022 Specific gravity (U) [Rel density] 1.020 1.002-1.030 [facility] Work Phone: Urobilinogen Auto test strip Ql (U)on 02-20-2022 Urobilinogen Ql (U) 1 mg/dl Normal [facility] Work Phone: No Panel Informationon 02-17 Vaginal Amniotic Fluid Detection Negative Negative [facility] Work Phone: Comment on above: Amniotic fluid not p resent indicates No Rupture of FetalMembranes at time of specimen collection. Basophil percentageon 2021 WBC (Bld) [#/Vol] 9.9 10*3/uL 4.4-11.0 [facility] Work Phone: Blood erythrocytes count (nu mber/volume)on 12-13-2021 RBC (Bld) [#/Vol] 3.71 10*6/uL 4.2-5.4 [facility] Work Phone: Blood hemoglobin measurement (mass/volume)on 12-13-2021 Hemoglobin (Bld) [Mass/Vol] 9.9 g/dL 12.0-15.0 [facility] Work Phone: Blood platelet mean volumeon 12-13-2021 Platelet mean volume (Bld) [Entitic vol] 11.9 fL 6.2-12.0 [facility] Work Phone: Determination of erythrocyte mean corpuscular volume (MCV)on 06-23-2022 MCV (RBC) [Entitic vol] 85.2 fL 81-99 [facility] Work Phone: Gestational diabetes screen 1-hour screen with 50g oral glucose loadon 12-13-2021 Glucose 1 Hr post 50 g glucose PO [Mass/Vol] 129 mg/dL 70-140 [facility] Work Phone: Hematocrit Auto (Bld) [Volum e fraction]on 12-13-2021 Hematocrit (Bld) [Volume fraction] 31.6 % 37-47 [facility] Work Phone: Laboratory - Hematology and Cell countson 12-13-2021 Erythrocyte distribution width (RBC) [Entitic vol] 48.6 fL 35.1-43.9 [facility] Work Phone: Erythrocyte distribution width (RBC) [Ratio] 15.7 % 11.6-14.6 [facility] Work Phone: MCH (RBC) [Entitic mass] 26.7 pg 27.0-32.0 [facility] Work Phone: MCHC Auto (RBC) [Mass/Vol]on 12-13-2021 MCHC (RBC) [Mass/Vol] 31.3 g/dL 32-36 [facility] Work Phone: Platelets bldon 12-13-2021 Platelets (Bld) [#/Vol] 172 10*3/uL 150-450 [facility] Work Phone: Absolute lymphocyte counton 11-04-2021 Lymphocytes Auto (Unsp spec) [#/Vol] 2.73 10*3/uL 0.83-4.51 [facility] Work Phone: Basophil percentageon 2021 Basophils/100 WBC (Bld) 0.4 % 0-1 [facility] Work Phone: Eosinophils/100 WBC (Bld) 3.1 % 0-5 [facility] Work Phone: Neutrophils (Bld) [#/Vol] 5.5 10*3/uL 2.0-7.7 [facility] Work Phone: Neutrophils/100 WBC (Bld) 58.8 % 47-70 [facility] Work Phone: WBC (Bld) [#/Vol] 9.4 10*3/uL 4.4-11.0 [facility] Work Phone: Blood erythrocytes count (nu mber/volume)on 11-04-2021 RBC (Bld) [#/Vol] 3.42 10*6/uL 4.2-5.4 [facility] Work Phone: Blood hemoglobin measurement (mass/volume)on 11-04-2021 Hemoglobin (Bld) [Mass/Vol] 9.0 g/dL 12.0-15.0 [facility] Work Phone: Blood lymphocytes/100 leukoc yteson 11-04-2021 Lymphocytes/100 WBC (Bld) 29.1 % 19-41 [facility] Work Phone: Blood monocytes/100 leukocyt eson 11-04-2021 Monocytes/100 WBC (Bld) 7.4 % 0-10 [facility] Work Phone: Blood platelet mean volumeon 11-04-2021 Platelet mean volume (Bld) [Entitic vol] 11.7 fL 6.2-12.0 [facility] Work Phone: Determination of erythrocyte mean corpuscular volume (MCV)on 11-04-2021 MCV (RBC) [Entitic vol] 84.8 fL 81-99 [facility] Work Phone: Hematocrit Auto (Bld) [Volum e fraction]on 11-04-2021 Hematocrit (Bld) [Volume fraction] 29.0 % 37-47 [facility] Work Phone: Laboratory - Hematology and Cell countson 11-04-2021 Erythrocyte distribution width (RBC) [Entitic vol] 46.1 fL 35.1-43.9 [facility] Work Phone: Erythrocyte distribution width (RBC) [Ratio] 15.0 % 11.6-14.6 [facility] Work Phone: [phone] Immature granulocytes/100 WBC (Bld) 1.200 % 0.0-0.9 [facility] Work Phone: Comment on above: IG% - Immature Granu locytes (promyelocytes, myelocytes and metamyelocytes) > 1% indicates that a LEFT SHIFT is Present. MCH (RBC) [Entitic mass] 26.3 pg 27.0-32.0 [facility] Work Phone: [phone] Nucleated RBC/100 WBC (Bld) [Ratio] 0 % 0-5 [facility] Work Phone: [phone] MCHC Auto (RBC) [Mass/Vol]on 11-04-2021 MCHC (RBC) [Mass/Vol] 31.0 g/dL 32-36 [facility] Work Phone: [phone] Platelets bldon 11-04-2021 Platelets (Bld) [#/Vol] 184 10*3/uL 150-450 [facility] Work Phone: [phone] INR in Blood by Coagulation assayon 11-03-2021 INR Coag (Bld) [Relative time] 1.1 {INR} [facility] Work Phone: Laboratory - Coagulationon 0 11-03-2021 aPTT Coag (Bld) [Time] 27.0 s 24.1-36.2 [facility] Work Phone: [phone] PT Coag (PPP) [Time] 13.4 s 11.7-14.9 [facility] Work Phone: Laboratory - Drug toxicology on 11-03-2021 Amphetamines Ql (U) Negative <1000 ng/mL [facility] Work Phone: [phone] Benzodiazepines Ql (U) Negative < 200 ng/mL [facility] Work Phone: [phone] Cannabinoids Screen Ql (U) Negative < 50 ng/mL [facility] Work Phone: [phone] Cocaine Ql (U) Negative < 300 ng/mL [facility] [facility] Work Phone: Opiates Ql (U) Negative < 300 ng/mL [facility] Work Phone: [phone] No Panel Informationon 11-03 MDMA (Ecstasy) Screen Negative < 500 ng/mL [facility] Work Phone: [phone] Urine Barbiturates Screen Negative < 200 ng/mL [facility] Work Phone: [phone] Urine Drug Screen Comment [facility] Work Phone: Comment on above: CONFIRMATORY TESTING [...] Methadone Screen Negative < 300 ng/mL [facility] Work Phone: [phone] Urine phencyclidine (PCP) de tectionon 11-03-2021 Phencyclidine Ql (U) Negative < 25 ng/mL [facility] Work Phone: [phone] Absolute lymphocyte counton 09-13-2021 Lymphocytes Auto (Unsp spec) [#/Vol] 1.80 10*3/uL 0.83-4.51 [facility] Work Phone: [phone] Basophil percentageon 2021 Basophils/100 WBC (Bld) 0.4 % 0-1 [facility] Work Phone: Chloride [Moles/Vol] 107 mmol/L 98-107 [facility] Work Phone: Eosinophils/100 WBC (Bld) 3.9 % 0-5 [facility] Work Phone: [phone] Glucose [Mass/Vol] 78 mg/dL 74-106 [facility] Work Phone: [phone] Neutrophils (Bld) [#/Vol] 5.6 10*3/uL 2.0-7.7 [facility] Work Phone: Neutrophils/100 WBC (Bld) 67.2 % 47-70 [facility] Work Phone: Potassium [Moles/Vol] 4.0 mmol/L 3.5-5.1 [facility] Work Phone: Sodium [Moles/Vol] 136 mmol/L 136-145 [facility] Work Phone: WBC (Bld) [#/Vol] 8.3 10*3/uL 4.4-11.0 [facility] Work Phone: Blood erythrocytes count (nu mber/volume)on 09-13-2021 RBC (Bld) [#/Vol] 4.28 10*6/uL 4.2-5.4 [facility]: Blood hemoglobin measurement (mass/volume)on 09-13-2021 Hemoglobin (Bld) [Mass/Vol] 11.6 g/dL 12.0-15.0 [facility] Work Phone: Blood lymphocytes/100 leukoc yteson 09-13-2021 Lymphocytes/100 WBC (Bld) 21.8 % 19-41 [facility] Work Phone: Blood monocytes/100 leukocyt eson 09-13-2021 Monocytes/100 WBC (Bld) 6.1 % 0-10 [facility] Work Phone: Blood platelet mean volumeon 09-13-2021 Platelet mean volume (Bld) [Entitic vol] 10.7 fL 6.2-12.0 [facility] Work Phone: Determination of erythrocyte mean corpuscular volume (MCV)on 09-13-2021 MCV (RBC) [Entitic vol] 83.2 fL 81-99 [facility] Work Phone: Hematocrit Auto (Bld) [Volum e fraction]on 09-13-2021 Hematocrit (Bld) [Volume fraction] 35.6 % 37-47 [facility] Work Phone: Laboratory - Chemistry and C hemistry - challengeon 09-13-2021 CO2 [Moles/Vol] 26.0 mmol/L 21.0-32.0 [facility] Work Phone: Urea nitrogen/Creatinine [Mass ratio] 14.5 mg/mg 10-20 [facility] Work Phone: Laboratory - Hematology and Cell countson 09-13-2021 Erythrocyte distribution width (RBC) [Entitic vol] 47.2 fL 35.1-43.9 [facility] Work Phone: Erythrocyte distribution width (RBC) [Ratio] 15.8 % 11.6-14.6 [facility] Work Phone: Immature granulocytes/100 WBC (Bld) 0.600 % 0.0-0.9 [facility] Work Phone: Comment on above: IG% - Immature Granu locytes (promyelocytes, myelocytes and metamyelocytes) > 1% indicates that a LEFT SHIFT is Present. MCH (RBC) [Entitic mass] 27.1 pg 27.0-32.0 [facility] Work Phone: Nucleated RBC/100 WBC (Bld) [Ratio] 0 % 0-5 [facility] Work Phone: MCHC Auto (RBC) [Mass/Vol]on 09-13-2021 MCHC (RBC) [Mass/Vol] 32.6 g/dL 32-36 [facility] Work Phone: No Panel Informationon 09-13 Estimated Creatinine Clearance Calc 141.92 ml/min [facility] Work Phone: Estimated GFR (MDRD) Amer 174 mL/min >60 [facility] Work Phone: Comment on above: GFR Calc Estimated GFR (MDRD) Non-Af Amer 144 mL/min >60 [facility] Work Phone: Comment on above: Non- GFR Calc Platelets bldon 09-13-2021 Platelets (Bld) [#/Vol] 190 10*3/uL 150-450 [facility] Work Phone: [phone] Serum or plasma calcium roopa urement (mass/volume)on 09-13-2021 Calcium [Mass/Vol] 8.9 mg/dL 8.5-10.1 [facility] Work Phone: [phone] Serum or plasma creatinine m easurement (mass/volume)on 09-13-2021 Creatinine [Mass/Vol] 0.55 mg/dL 0.55-1.02 [facility] Work Phone: [phone] Comment on above: The validity of the calculated GFR & GFRAA in patients over 70 years has not been determined. Clinical correlation is essential. Serum or plasma urea nitroge n measurement (mass/volume)on 09-13-2021 Urea nitrogen [Mass/Vol] 8 mg/dL 7-18 [facility] Work Phone: [phone] Thin prep Papanicolaou smear with manual screeningon 09-13-2021 Thin prep Papanicolaou smear with manual screening 3 5-15 [facility] Work Phone: [phone] Absolute lymphocyte counton 08-01-2021 Lymphocytes Auto (Unsp spec) [#/Vol] 1.99 10*3/uL 0.83-4.51 [facility] Work Phone: [phone] Basophil percentageon 2021 Basophils/100 WBC (Bld) 0.4 % 0-1 [facility] Work Phone: Eosinophils/100 WBC (Bld) 4.4 % 0-5 [facility] Work Phone: Neutrophils (Bld) [#/Vol] 4.4 10*3/uL 2.0-7.7 [facility] Work Phone: Neutrophils/100 WBC (Bld) 60.7 % 47-70 [facility] Work Phone: WBC (Bld) [#/Vol] 7.2 10*3/uL 4.4-11.0 [facility] Work Phone: [phone] Bilirubin Test strip Ql (U)o n 02-09-2022 Bilirubin Ql (U) Negative Negative [facility] Work Phone: Blood erythrocytes count (nu mber/volume)on 08-01-2021 RBC (Bld) [#/Vol] 4.52 10*6/uL 4.2-5.4 [facility] Work Phone: Blood hemoglobin measurement (mass/volume)on 08-01-2021 Hemoglobin (Bld) [Mass/Vol] 12.2 g/dL 12.0-15.0 [facility] Work Phone: [phone] Blood lymphocytes/100 leukoc yteson 08-01-2021 Lymphocytes/100 WBC (Bld) 27.6 % 19-41 [facility] Work Phone: Blood monocytes/100 leukocyt eson 08-01-2021 Monocytes/100 WBC (Bld) 6.5 % 0-10 [facility] Work Phone: Blood platelet mean volumeon 08-01-2021 Platelet mean volume (Bld) [Entitic vol] 11.8 fL 6.2-12.0 [facility] Work Phone: Culture, urineon 08-01-2021 Bacteria identified Cx Nom (U) Positive [facility] Work Phone: Determination of erythrocyte mean corpuscular volume (MCV)on 08-01-2021 MCV (RBC) [Entitic vol] 80.5 fL 81-99 [facility] Work Phone: HIV 1 and HIV-2 antibody ass ay with HIV-1 p24 antigen detectionon 08-01-2021 HIV 1+2 Ab+HIV1 p24 Ag IA Ql Non-Reactive Nonreactive [facility] Work Phone: Hematocrit Auto (Bld) [Volum e fraction]on 08-01-2021 Hematocrit (Bld) [Volume fraction] 36.4 % 37-47 [facility] Work Phone: Ketones Test strip Ql (U)on 08-01-2021 Ketones Ql (U) Negative Negative [facility] Work Phone: Laboratory - Drug toxicology on 08-01-2021 Amphetamines Ql (U) Negative [facility] Work Phone: Benzodiazepines Ql (U) Negative [facility] Work Phone: Cannabinoids Screen Ql (U) Negative [facility] Work Phone: Cocaine Ql (U) Negative [facility] Work Phone: Opiates Ql (U) Negative [facility] Work Phone: Laboratory - Hematology and Cell countson 08-01-2021 Erythrocyte distribution width (RBC) [Entitic vol] 47.8 fL 35.1-43.9 [facility] Work Phone: Erythrocyte distribution width (RBC) [Ratio] 16.2 % 11.6-14.6 [facility] Work Phone: Immature granulocytes/100 WBC (Bld) 0.400 % 0.0-0.9 [facility] Work Phone: Comment on above: IG% - Immature Granu locytes (promyelocytes, myelocytes and metamyelocytes) > 1% indicates that a LEFT SHIFT is Present. MCH (RBC) [Entitic mass] 27.0 pg 27.0-32.0 [facility] Work Phone: Nucleated RBC/100 WBC (Bld) [Ratio] 0 % 0-5 [facility] Work Phone: MCHC Auto (RBC) [Mass/Vol]on 08-01-2021 MCHC (RBC) [Mass/Vol] 33.5 g/dL 32-36 [facility] Work Phone: Nitrite Test strip Ql (U)on 08-01-2021 Nitrite Ql (U) Negative Negative [facility] Work Phone: No Panel Informationon 08-01 Hepatitis B Surface Antigen Non-Reactive Nonreactive [facility] Work Phone: Hepatitis C Antibody Non-Reactive Nonreactive [facility] Work Phone: Comment on above: Non Reactive: < 0.8 Equivocal: >/= 0.8 to < 1.0 Reactive: >/= 1.0The [facility] recommends that a reactive/equivocal HCV antibody result be followed up by the HCV Nucleic Acid Amplificationtest (206089) Rubella IgG Antibody Reactive Nonreactive [facility] Work Phone: Comment on above: Antibody Results Int erpretation of Immune Status Non Reactive Presumed Non-Immune Equivocal Equivocal Reactive Presumed Immune Thyroid Stimulating Hormone (TSH) 0.43 uIU/mL 0.358-3.74 [facility] Work Phone: Urine Barbiturates Screen Negative [facility] Work Phone: Urine Drug Screen Comment [facility] Work Phone: Comment on above: CONFIRMATORY TESTING [...] USE TESTMNEMONIC: [facility] Urine Methadone Screen Negative [facility] Work Phone: Urine Methamphetamine-MDMA Screen Negative [facility] Work Phone: Platelets bldon 08-01-2021 Platelets (Bld) [#/Vol] 208 10*3/uL 150-450 [facility] Work Phone: Protein Test strip Ql (U)on 08-01-2021 Protein Ql (U) Negative Negative [facility] Work Phone: Serum Treponema species anti body detectionon 08-01-2021 Treponema sp Ab Ql (S) Non-Reactive [facility] Work Phone: Urine blood detectionon 02-0 RBC Ql (U) Negative Negative [facility] Work Phone: Urine clarityon 08-01-2021 Clarity (U) Sl. Cloudy Clear [facility] Work Phone: Urine color determinationon 08-01-2021 Color (U) Yellow Yellow [facility] Work Phone: Urine glucose detectionon Glucose Ql (U) Normal mg/dl Normal [facility] Work Phone: Urine leukocyte esterase det ection by dipstickon 08-01-2021 Leukocyte esterase Test strip Ql (U) 100 /ul Negative [facility] Work Phone: Urine pHon 08-01-2021 pH (U) 8.0 [pH] [facility] Work Phone: Urine phencyclidine (PCP) de tectionon 08-01-2021 Phencyclidine Ql (U) Negative [facility] Work Phone: Urine specific gravity measu rementon 08-01-2021 Specific gravity (U) [Rel density] 1.015 [facility] Work Phone: Urobilinogen Auto test strip Ql (U)on 08-01-2021 Urobilinogen Ql (U) Normal mg/dl Normal [facility] Work Phone: No Panel Informationon 07-19 POC SARS CoV-2 Antigen Negative [facility] Work Phone: Serum or plasma choriogonado tropin detectionon 07-09-2021 HCG ( test) Ql 33962 mIU/mL <4 [facility] Work Phone: Comment on above: hCG levels with Gest ational AgeGestational Age hCG mIU/mL (IU/L)0.2 - 1 week 5 - 501-2 weeks 50 - 5002-3 weeks 100 - 88607-7 weeks 500 - 315952-1 weeks 1000 - 501588-0 weeks 06263 - 100,0006-8 weeks 10057 - 200,0002-3 months 89574 - 100,000 No Panel Information Group B Streptococcus Culture Group B Beta Streptococcus is not isolated. [facility] Work Phone: Vital Signs Date Time Vital Sign Value Performing Clinician Facility 04-18-2025 14:24-0400 Heart rate 85 /min Dr. David Mckinney MD Work Phone: 1(551)121-533822 [place] [address] 04-18-2025 14:24-0400 SaO2% (BldA) [Mass fraction] 100 % Dr. David Mckinney MD Work Phone: 2(045)918-847022 [place] [address] 04-18-2025 13:30-0400 Body temperature 97.2 [degF] Dr. David Mckinney MD Work Phone: 4(314)938-897922 [place] [address] 04-18-2025 13:30-0400 Respiratory rate 12 /min Dr. David Mckinney MD Work Phone: 8(605)693-973922 [place] [address] 04-18-2025 13:15-0400 Diastolic blood pressure 84 mm[Hg] Dr. David Mckinney MD Work Phone: 4(439)937-107122 [place] [address] 04-18-2025 13:15-0400 Systolic blood pressure 134 mm[Hg] Dr. David Mckinney MD Work Phone: 2(423)987-907522 [place] [address] 04-18-2025 13:07-0400 Body height 167.[address] David Mckinney MD Work Phone: 3(056)640-176822 [place] [address] 04-18-2025 13:07-0400 Body mass index (BMI) [Ratio] 28 kg/m2 Dr. David Mckinney MD Work Phone: 2(662)718-135622 [place] [address] 04-18-2025 13:07-0400 Body weight 78.[address] David Mckinney MD Work Phone: 9(253)343-162622 [place] [address] 04-09-2025 16:11-0400 Body temperature 98 [degF] Dr. David Mckinney MD Work Phone: 9(784)401-230222 [place] [address] 04-09-2025 16:11-0400 Diastolic blood pressure 90 mm[Hg] Dr. David Mckinney MD Work Phone: 9(006)957-496922 [place] [address] 04-09-2025 16:11-0400 Heart rate 120 /min Dr. David Mckinney MD Work Phone: 3(511)508-609222 [place] [address] 04-09-2025 16:11-0400 Respiratory rate 18 /min Dr. David Mckinney MD Work Phone: [facility] 04-09-2025 16:11-0400 SaO2% (BldA) [Mass fraction] 99 % Dr. David Mckinney MD Work Phone: 8(916)929-825655 [place] [address] 04-09-2025 16:11-0400 Systolic blood pressure 135 mm[Hg] Dr. David Mckinney MD Work Phone: 1(429)483-644622 [place] [address] 03-10-2025 14:53-0400 Body temperature 97 [degF] Dr. David Mckinney MD Work Phone: 5(394)152-966922 [place] [address] 03-10-2025 14:53-0400 Diastolic blood pressure 79 mm[Hg] Dr. David Mckinney MD Work Phone: 4(410)871-136622 [place] [address] 03-10-2025 14:53-0400 Heart rate 98 /min Dr. David Mckinney MD Work Phone: 0(013)206-828655 [place] [address] 03-10-2025 14:53-0400 Respiratory rate 14 /min Dr. David Mckinney MD Work Phone: 9(256)078-086660 [address] 03-10-2025 14:53-0400 SaO2% (BldA) [Mass fraction] 98 % Dr. David Mckinney MD Work Phone: 8(249)184-208555 [place] [address] 03-10-2025 14:53-0400 Systolic blood pressure 115 mm[Hg] Dr. David Mckinney MD Work Phone: 0(475)192-653255 [place] [address] 03-10-2025 12:30-0400 Body height 165.[address] David Mckinney MD Work Phone: 4(146)521-565455 [place] [address] 03-10-2025 12:30-0400 Body mass index (BMI) [Ratio] 28.3 kg/m2 Dr. David Mckinney MD Work Phone: 4(399)379-154655 [place] [address] 03-10-2025 12:30-0400 Body weight 77.[address] David Mckinney MD Work Phone: 7(341)061-321155 [place] [address] 02-09-2025 09:49-0400 Body mass index (BMI) [Ratio] 28.79 kg/m2 Jt Lugo MD Work Phone: [facility] 02-09-2025 09:49-0400 Body weight 78.47 kg Jt Lugo MD Work Phone: [facility] 02-09-2025 09:49-0400 Diastolic blood pressure 60 mm[Hg] Jt Lugo MD Work Phone: [facility] 02-09-2025 09:49-0400 Systolic blood pressure 106 mm[Hg] Jt Lugo MD Work Phone: [facility] 01-28-2025 10:32-0400 Body height 165.[address] David Mckinney MD Work Phone: [facility] 01-12-2025 09:53-0400 Body mass index (BMI) [Ratio] 28.12 kg/m2 Sarah Solomon MD Work Phone: [facility] 01-12-2025 09:53-0400 Body weight 76.66 kg Sarah Solomon MD Work Phone: [facility] 01-12-2025 09:53-0400 Diastolic blood pressure 70 mm[Hg] Sarah Solomon MD Work Phone: [facility] 01-12-2025 09:53-0400 Systolic blood pressure 108 mm[Hg] Sarah Solomon MD Work Phone: [facility] 12-31-2024 13:21-0400 Body mass index (BMI) [Ratio] 26.63 kg/m2 Soy Cassidy MD Work Phone: [facility] 12-31-2024 13:21-0400 Body weight 72.58 kg Soy Cassidy MD Work Phone: [facility] 12-31-2024 13:21-0400 Diastolic blood pressure 88 mm[Hg] Soy Cassidy MD Work Phone: [facility] 12-31-2024 13:21-0400 Systolic blood pressure 128 mm[Hg] Soy Cassidy MD Work Phone: [facility] 12-11-2024 13:47-0400 Body height 165.[address] David Mckinney MD Work Phone: [facility] 12-11-2024 13:47-0400 Body mass index (BMI) [Ratio] 28.6 kg/m2 Dr. David Mckinney MD Work Phone: [facility] 12-11-2024 13:47-0400 Body temperature 98.8 [degF] Dr. David Mckinney MD Work Phone: [facility] 12-11-2024 13:47-0400 Body weight 78.[address] David Mckinney MD Work Phone: [facility] 12-11-2024 13:47-0400 Diastolic blood pressure 79 mm[Hg] Dr. David Mckinney MD Work Phone: [facility] 12-11-2024 13:47-0400 Heart rate 93 /min Dr. David Mckinney MD Work Phone: [facility] 12-11-2024 13:47-0400 Respiratory rate 16 /min Dr. David Mckinney MD Work Phone: [facility] 12-11-2024 13:47-0400 SaO2% (BldA) [Mass fraction] 99 % Dr. David Mckinney MD Work Phone: [facility] 12-11-2024 13:47-0400 Systolic blood pressure 132 mm[Hg] Dr. David Mckinney MD Work Phone: [facility] 11-18-2024 13:12-0400 Body height 165.1 cm Johana Turner APRN.CNM Work Phone: [facility] 11-18-2024 13:12-0400 Body mass index (BMI) [Ratio] 26.79 kg/m2 Johana Turner APRN.CNM Work Phone: [facility] 11-18-2024 13:12-0400 Body weight 73.03 kg Johana Turner DIRECT RESPONSE CONSULTANT.CNM Work Phone: [facility] 11-18-2024 13:12-0400 Diastolic blood pressure 82 mm[Hg] Johana Turner DIRECT RESPONSE CONSULTANT.CNM Work Phone: [facility] 11-18-2024 13:12-0400 Systolic blood pressure 118 mm[Hg] Johana Turner DIRECT RESPONSE CONSULTANT.CNM Work Phone: [facility] 10-12-2024 01:32-0400 Diastolic blood pressure 89 mm[Hg] Dr. David Mckinney MD Work Phone: [facility] 10-12-2024 01:32-0400 Heart rate 83 /min Dr. David Mckinney MD Work Phone: [facility] 10-12-2024 01:32-0400 Respiratory rate 12 /min Dr. David Mckinney MD Work Phone: [facility] 10-12-2024 01:32-0400 SaO2% (BldA) [Mass fraction] 97 % Dr. David Mckinney MD Work Phone: [facility] 10-12-2024 01:32-0400 Systolic blood pressure 136 mm[Hg] Dr. David Mckinney MD Work Phone: [facility] 10-11-2024 23:39-0400 Body height 165.[address] David Mckinney MD Work Phone: [facility] 10-11-2024 23:39-0400 Body mass index (BMI) [Ratio] 26.7 kg/m2 Dr. David Mckinney MD Work Phone: [facility] 10-11-2024 23:39-0400 Body temperature 97.8 [degF] Dr. David Mckinney MD Work Phone: [facility] 10-11-2024 23:39-0400 Body weight 72.[address] David Mckinney MD Work Phone: 2(096)407-800355 [place] [address] 10-02-2024 23:04-0400 Body temperature 96.8 [degF] Dr. David Mckinney MD Work Phone: [facility] 10-02-2024 23:04-0400 Diastolic blood pressure 80 mm[Hg] Dr. David Mckinney MD Work Phone: 2(588)037-086155 [place] [address] 10-02-2024 23:04-0400 Heart rate 100 /min Dr. David Mckinney MD Work Phone: 6(688)031-988655 [place] [address] 10-02-2024 23:04-0400 Respiratory rate 16 /min Dr. David Mckinney MD Work Phone: 3(682)220-839855 [place] [address] 10-02-2024 23:04-0400 SaO2% (BldA) [Mass fraction] 98 % Dr. David Mckinney MD Work Phone: 9(832)810-358155 [place] [address] 10-02-2024 23:04-0400 Systolic blood pressure 132 mm[Hg] Dr. David Mckinney MD Work Phone: 0(010)608-812455 [place] [address] 10-02-2024 22:37-0400 Body height 165.[address] David Mckinney MD Work Phone: 4(498)719-585155 [place] [address] 10-02-2024 22:37-0400 Body mass index (BMI) [Ratio] 26.1 kg/m2 Dr. David Mckinney MD Work Phone: 1(454)337-633555 [place] [address] 10-02-2024 22:37-0400 Body weight 71.[address] David Mckinney MD Work Phone: [facility] 09-16-2024 14:38-0400 Body mass index (BMI) [Ratio] 27.88 kg/m2 Hortencia Gould APRN.CAMPAIGN MANAGEMENT SPECIALIST Work Phone: [facility] 09-16-2024 14:38-0400 Body weight 73.66 kg Hortencia Gould APRN.CAMPAIGN MANAGEMENT SPECIALIST Work Phone: [facility] 09-16-2024 14:38-0400 Diastolic blood pressure 65 mm[Hg] Hortencia Gould APRN.CAMPAIGN MANAGEMENT SPECIALIST Work Phone: [facility] 09-16-2024 14:38-0400 Systolic blood pressure 106 mm[Hg] Hortencia Gould DIRECT RESPONSE CONSULTANT.CAMPAIGN MANAGEMENT SPECIALIST Work Phone: [facility] 07-29-2024 13:20-0500 Body height 162.6 cm Sharda [place] DIRECT RESPONSE CONSULTANT.CAMPAIGN MANAGEMENT SPECIALIST Work Phone: [facility] 07-29-2024 13:20-0500 Body mass index (BMI) [Ratio] 29.01 kg/m2 Sharda Anjum DIRECT RESPONSE CONSULTANT.CAMPAIGN MANAGEMENT SPECIALIST Work Phone: [facility] 07-29-2024 13:20-0500 Body weight 76.66 kg Sharda Anjum DIRECT RESPONSE CONSULTANT.CAMPAIGN MANAGEMENT SPECIALIST Work Phone: [facility] 07-29-2024 13:20-0500 Diastolic blood pressure 76 mm[Hg] Sharda Anjum DIRECT RESPONSE CONSULTANT.CAMPAIGN MANAGEMENT SPECIALIST Work Phone: [facility] 07-29-2024 13:20-0500 Systolic blood pressure 112 mm[Hg] Sharda Anjum DIRECT RESPONSE CONSULTANT.CAMPAIGN MANAGEMENT SPECIALIST Work Phone: [facility] 07-01-2024 11:22-0500 Body mass index (BMI) [Ratio] 28.97 kg/m2 Jeanette Patel MD Work Phone: [facility] 07-01-2024 11:22-0500 Body weight 76.57 kg Jeanette Patel MD Work Phone: [facility] 07-01-2024 11:22-0500 Diastolic blood pressure 84 mm[Hg] Jeanette Patel MD Work Phone: [facility] 07-01-2024 11:22-0500 Systolic blood pressure 120 mm[Hg] Jeanette Patel MD Work Phone: [facility] 06-19-2024 14:07-0500 Diastolic blood pressure 86 mm[Hg] Dr. David Mckinney MD Work Phone: [facility] 06-19-2024 14:07-0500 Heart rate 76 /min Dr. David Mckinney MD Work Phone: [facility] [facility] 06-19-2024 14:07-0500 Systolic blood pressure 135 mm[Hg] Dr. David Mckinney MD Work Phone: [facility] 06-19-2024 14:00-0500 Body temperature 98 [degF] Dr. David Mckinney MD Work Phone: [facility] 06-19-2024 14:00-0500 Respiratory rate 16 /min Dr. David Mckinney MD Work Phone: [facility] 06-19-2024 04:05-0500 SaO2% (BldA) [Mass fraction] 97 % Dr. David Mckinney MD Work Phone: [facility] 06-17-2024 11:34-0500 Body mass index (BMI) [Ratio] 31.7 kg/m2 Dr. David Mckinney MD Work Phone: [facility] 06-17-2024 11:34-0500 Body weight 86.[address] David Mckinney MD Work Phone: [facility] 06-17-2024 08:46-0500 Body mass index (BMI) [Ratio] 32.61 kg/m2 Nst Wstr Work Phone: [facility] 06-17-2024 08:46-0500 Body weight 86.18 kg Nst Wstr Work Phone: [facility] 06-17-2024 08:46-0500 Diastolic blood pressure 88 mm[Hg] Nst Wstr Work Phone: [facility] 06-17-2024 08:46-0500 Systolic blood pressure 131 mm[Hg] Nst Wstr Work Phone: [facility] 06-11-2024 10:53-0500 Body mass index (BMI) [Ratio] 33.3 kg/m2 Sarah Solomon MD Work Phone: [facility] 06-11-2024 10:53-0500 Body weight 88 kg Sarah Solomon MD Work Phone: [facility] 06-11-2024 10:53-0500 Diastolic blood pressure 82 mm[Hg] Sarah Solomon MD Work Phone: [facility] 06-11-2024 10:53-0500 Systolic blood pressure 124 mm[Hg] Sarah Solomon MD Work Phone: [facility] 06-03-2024 13:57-0500 Body mass index (BMI) [Ratio] 33.47 kg/m2 Halle Haury DIRECT RESPONSE CONSULTANT.CAMPAIGN MANAGEMENT SPECIALIST Work Phone: [facility] 06-03-2024 13:57-0500 Body weight 88.45 kg Halle Haury DIRECT RESPONSE CONSULTANT.CAMPAIGN MANAGEMENT SPECIALIST Work Phone: [facility] 06-03-2024 13:57-0500 Diastolic blood pressure 83 mm[Hg] Halle Haury DIRECT RESPONSE CONSULTANT.CAMPAIGN MANAGEMENT SPECIALIST Work Phone: [facility] 06-03-2024 13:57-0500 Systolic blood pressure 121 mm[Hg] Halle Haury DIRECT RESPONSE CONSULTANT.CAMPAIGN MANAGEMENT SPECIALIST Work Phone: [facility] 05-25-2024 13:29-0500 Body mass index (BMI) [Ratio] 33.64 kg/m2 Jeanette Patel MD Work Phone: [facility] 05-25-2024 13:29-0500 Body weight 88.91 kg Jeanette Patel MD Work Phone: [facility] 05-25-2024 13:29-0500 Diastolic blood pressure 79 mm[Hg] Jeanette Patel MD Work Phone: [facility] Comment on above: machine (LT) arm 05-25-2024 13:29-0500 Systolic blood pressure 122 mm[Hg] Jeanette Patel MD Work Phone: [facility] Comment on above: machine (LT) arm 05-12-2024 15:35-0500 Body mass index (BMI) [Ratio] 31.93 kg/m2 Sarah Solomon MD Work Phone: [facility] 05-12-2024 15:35-0500 Body weight 84.37 kg Sarah Solomon MD Work Phone: [facility] 05-12-2024 15:35-0500 Diastolic blood pressure 74 mm[Hg] Sarah Solomon MD Work Phone: [facility] 05-12-2024 15:35-0500 Systolic blood pressure 110 mm[Hg] Sarah Solomon MD Work Phone: [facility] 04-28-2024 13:36-0500 Body mass index (BMI) [Ratio] 31.76 kg/m2 Margarita Alcala MD Work Phone: [facility] 04-28-2024 13:36-0500 Body weight 83.92 kg Margarita Alcala MD Work Phone: [facility] 04-28-2024 13:36-0500 Diastolic blood pressure 78 mm[Hg] Margarita Alcala MD Work Phone: [facility] 04-28-2024 13:36-0500 Systolic blood pressure 122 mm[Hg] Margarita Alcala MD Work Phone: [facility] 04-14-2024 10:28-0400 Body mass index (BMI) [Ratio] 30.97 kg/m2 Margarita Alcala MD Work Phone: [facility] 04-14-2024 10:28-0400 Body weight 81.83 kg Margarita Alcala MD Work Phone: [facility] 04-14-2024 10:28-0400 Diastolic blood pressure 62 mm[Hg] Margarita Alcala MD Work Phone: [facility] 04-14-2024 10:28-0400 Systolic blood pressure 100 mm[Hg] Margarita Alcala MD Work Phone: [facility] 04-02-2024 16:17-0400 Body mass index (BMI) [Ratio] 30.73 kg/m2 Marcela Connors APRN.CNM Work Phone: [facility] 04-02-2024 16:17-0400 Body weight 81.19 kg Marcela Connors DIRECT RESPONSE CONSULTANT.CNM Work Phone: [facility] 04-02-2024 16:17-0400 Diastolic blood pressure 68 mm[Hg] Marcela Connors DIRECT RESPONSE CONSULTANT.CNM Work Phone: [facility] 04-02-2024 16:17-0400 Systolic blood pressure 116 mm[Hg] Marcela Waylon DIRECT RESPONSE CONSULTANT.CNM Work Phone: [facility] 03-17-2024 15:01-0400 Body mass index (BMI) [Ratio] 30.04 kg/m2 Jt Lugo MD Work Phone: [facility] 03-17-2024 15:01-0400 Body weight 79.38 kg Jt Lugo MD Work Phone: [facility] 03-17-2024 15:01-0400 Diastolic blood pressure 62 mm[Hg] Jt Lugo MD Work Phone: [facility] 03-17-2024 15:01-0400 Systolic blood pressure 114 mm[Hg] Jt Lugo MD Work Phone: [facility] 02-17-2024 11:06-0400 Body mass index (BMI) [Ratio] 29.7 kg/m2 Margarita Alcala MD Work Phone: [facility] 02-17-2024 11:06-0400 Body weight 78.47 kg Margarita Alcala MD Work Phone: [facility] 02-17-2024 11:06-0400 Diastolic blood pressure 76 mm[Hg] Margarita Alcala MD Work Phone: [facility] 02-17-2024 11:06-0400 Systolic blood pressure 116 mm[Hg] Margarita Alcala MD Work Phone: [facility] 02-17-2024 08:30-0400 Body mass index (BMI) [Ratio] 29.7 kg/m2 Vilma Farrell MD Work Phone: [facility] 02-17-2024 08:30-0400 Body weight 78.47 kg Vilma Farrell MD Work Phone: [facility] 02-17-2024 08:30-0400 Diastolic blood pressure 76 mm[Hg] Vilma Farrell MD Work Phone: [facility] 02-17-2024 08:30-0400 Systolic blood pressure 116 mm[Hg] Vilma Farrell MD Work Phone: [facility] 01-20-2024 14:21-0400 Body mass index (BMI) [Ratio] 29.18 kg/m2 Sarah Solomon MD Work Phone: [facility] 01-20-2024 14:21-0400 Body weight 77.11 kg Sarah Solomon MD Work Phone: [facility] 01-20-2024 14:21-0400 Diastolic blood pressure 78 mm[Hg] Sarah Solomon MD Work Phone: [facility] 01-20-2024 14:21-0400 Systolic blood pressure 114 mm[Hg] Sarah Solomon MD Work Phone: [facility] 01-01-2024 09:55-0400 Body mass index (BMI) [Ratio] 30.38 kg/m2 Jeanette Patel MD Work Phone: [facility] 01-01-2024 09:55-0400 Body weight 80.29 kg Jeanette Patel MD Work Phone: [facility] 01-01-2024 09:55-0400 Diastolic blood pressure 68 mm[Hg] Jeanette Patel MD Work Phone: [facility] 01-01-2024 09:55-0400 Systolic blood pressure 110 mm[Hg] Jeanette Patel MD Work Phone: [facility] 12-01-2023 12:02-0400 Body mass index (BMI) [Ratio] 30.73 kg/m2 Tyshawn Lorenzana MD Work Phone: [facility] 12-01-2023 12:02-0400 Body weight 81.19 kg Tyshawn Lorenzana MD Work Phone: [facility] 12-01-2023 12:02-0400 Diastolic blood pressure 76 mm[Hg] Tyshawn Lorenzana MD Work Phone: [facility] 12-01-2023 12:02-0400 Systolic blood pressure 112 mm[Hg] Tyshawn Lorenzana MD Work Phone: [facility] 11-13-2023 14:35-0400 Body height 162.6 cm Sharda Anjum DIRECT RESPONSE CONSULTANT.CAMPAIGN MANAGEMENT SPECIALIST Work Phone: [facility] 11-13-2023 14:35-0400 Body mass index (BMI) [Ratio] 30.52 kg/m2 Sharda Anjum DIRECT RESPONSE CONSULTANT.CAMPAIGN MANAGEMENT SPECIALIST Work Phone: [facility] 11-13-2023 14:35-0400 Body weight 80.65 kg Sharda Anjum DIRECT RESPONSE CONSULTANT.CAMPAIGN MANAGEMENT SPECIALIST Work Phone: [facility] 11-13-2023 14:35-0400 Diastolic blood pressure 80 mm[Hg] Sharda [place] DIRECT RESPONSE CONSULTANT.CAMPAIGN MANAGEMENT SPECIALIST Work Phone: [facility] 11-13-2023 14:35-0400 Systolic blood pressure 120 mm[Hg] Sharda [place] DIRECT RESPONSE CONSULTANT.CAMPAIGN MANAGEMENT SPECIALIST Work Phone: [facility] 08-10-2023 12:47-0500 Body temperature 98.1 [degF] [facility] 08-10-2023 12:47-0500 Diastolic blood pressure 87 mm[Hg] [facility] 08-10-2023 12:47-0500 Heart rate 62 /min [facility] 08-10-2023 12:47-0500 Respiratory rate 14 /min [facility] 08-10-2023 12:47-0500 SaO2% (BldA) [Mass fraction] 100 % [facility] 08-10-2023 12:47-0500 Systolic blood pressure 124 mm[Hg] [facility] 08-10-2023 10:18-0500 Body height 167.[address] [facility] 08-10-2023 10:18-0500 Body mass index (BMI) [Ratio] 30.2 kg/m2 [facility] 08-10-2023 10:18-0500 Body weight 84.[address] [facility] 07-17-2023 15:42-0500 Body height 167.[address] [facility] 07-17-2023 15:42-0500 Body mass index (BMI) [Ratio] 30.1 kg/m2 [facility] 07-17-2023 15:42-0500 Body temperature 97.6 [degF] [facility] 07-17-2023 15:42-0500 Body weight 84.[address] [facility] 07-17-2023 15:42-0500 Diastolic blood pressure 87 mm[Hg] [facility] 07-17-2023 15:42-0500 Heart rate 89 /min [facility] 07-17-2023 15:42-0500 Respiratory rate 18 /min [facility] 07-17-2023 15:42-0500 SaO2% (BldA) [Mass fraction] 100 % [facility] 07-17-2023 15:42-0500 Systolic blood pressure 121 mm[Hg] [facility] 06-10-2023 10:55-0500 Body height 167.[address] [facility] 06-10-2023 10:55-0500 Body mass index (BMI) [Ratio] 29.4 kg/m2 [facility] 06-10-2023 10:55-0500 Body temperature 97.1 [degF] [facility] 06-10-2023 10:55-0500 Body weight 82.[address] [facility] 06-10-2023 10:55-0500 Diastolic blood pressure 82 mm[Hg] [facility] 06-10-2023 10:55-0500 Heart rate 74 /min [facility] 06-10-2023 10:55-0500 Respiratory rate 16 /min [facility] 06-10-2023 10:55-0500 SaO2% (BldA) [Mass fraction] 100 % [facility] 06-10-2023 10:55-0500 Systolic blood pressure 118 mm[Hg] [facility] 05-11-2023 17:06-0500 Body height 167.[address] [facility] 05-11-2023 17:06-0500 Body mass index (BMI) [Ratio] 29.5 kg/m2 [facility] 05-11-2023 17:06-0500 Body temperature 97.5 [degF] [facility] 05-11-2023 17:06-0500 Body weight [address] [facility] 05-11-2023 17:06-0500 Diastolic blood pressure 98 mm[Hg] [facility] 05-11-2023 17:06-0500 Heart rate 101 /min [facility] 05-11-2023 17:06-0500 Respiratory rate 16 /min [facility] 05-11-2023 17:06-0500 SaO2% (BldA) [Mass fraction] 98 % [facility] 05-11-2023 17:06-0500 Systolic blood pressure 119 mm[Hg] [facility] 02-24-2023 15:52-0400 Body height 167.[address] [facility] 02-24-2023 15:52-0400 Body mass index (BMI) [Ratio] 29 kg/m2 [facility] 02-24-2023 15:52-0400 Body temperature 97.3 [degF] [facility] 02-24-2023 15:52-0400 Body weight 81.[address] [facility] 02-24-2023 15:52-0400 Diastolic blood pressure 79 mm[Hg] [facility] 02-24-2023 15:52-0400 Heart rate 106 /min [facility] 02-24-2023 15:52-0400 Respiratory rate 18 /min [facility] 02-24-2023 15:52-0400 SaO2% (BldA) [Mass fraction] 98 % [facility] 02-24-2023 15:52-0400 Systolic blood pressure 120 mm[Hg] [facility] 01-08-2023 16:23-0400 Body temperature 97.8 [degF] [facility] 01-08-2023 16:23-0400 Diastolic blood pressure 76 mm[Hg] [facility] 01-08-2023 16:23-0400 Heart rate 78 /min [facility] 01-08-2023 16:23-0400 Respiratory rate 14 /min [facility] 01-08-2023 16:23-0400 SaO2% (BldA) [Mass fraction] 99 % [facility] 01-08-2023 16:23-0400 Systolic blood pressure 126 mm[Hg] [facility] 01-08-2023 15:15-0400 Body height 167.[address] [facility] 01-08-2023 15:15-0400 Body mass index (BMI) [Ratio] 29.6 kg/m2 [facility] 01-08-2023 15:15-0400 Body weight 83.[address] [facility] 06-07-2022 18:58-0500 Body temperature 98.6 [degF] Everardo Patel APRN.CAMPAIGN MANAGEMENT SPECIALIST Work Phone: [facility] 06-07-2022 18:58-0500 Body weight 78.74 kg Everardo Patel APRN.CAMPAIGN MANAGEMENT SPECIALIST Work Phone: [facility] 06-07-2022 18:58-0500 Diastolic blood pressure 84 mm[Hg] Everardo Patel APRN.CAMPAIGN MANAGEMENT SPECIALIST Work Phone: [facility] 06-07-2022 18:58-0500 Heart rate 66 /min Everardo Patel APRN.CAMPAIGN MANAGEMENT SPECIALIST Work Phone: [facility] 06-07-2022 18:58-0500 Respiratory rate 18 /min Everardo Patel APRN.CAMPAIGN MANAGEMENT SPECIALIST Work Phone: [facility] 06-07-2022 18:58-0500 SaO2% (BldA) [Mass fraction] 100 % Everardo Patel APRN.CAMPAIGN MANAGEMENT SPECIALIST Work Phone: [facility] 06-07-2022 18:58-0500 Systolic blood pressure 136 mm[Hg] Everardo Patel APRN.CAMPAIGN MANAGEMENT SPECIALIST Work Phone: [facility] 02-22-2022 16:09-0400 Body temperature 98.7 [degF] [facility] Work Phone: 02-22-2022 16:09-0400 Diastolic blood pressure 77 mm[Hg] [facility] Work Phone: 02-22-2022 16:09-0400 Heart rate 72 /min [facility] Work Phone: 02-22-2022 16:09-0400 Respiratory rate 16 /min [facility] Work Phone: 02-22-2022 16:09-0400 SaO2% (BldA) [Mass fraction] 98 % [facility] Work Phone: 02-22-2022 16:09-0400 Systolic blood pressure 116 mm[Hg] [facility] Work Phone: 02-20-2022 16:39-0400 Body height 165.[address] [facility] Work Phone: 02-20-2022 16:39-0400 Body mass index (BMI) [Ratio] 33.1 kg/m2 [facility] Work Phone: 02-20-2022 16:39-0400 Body weight 90.[address] [facility] Work Phone: 02-17-2022 14:57-0400 Heart rate 95 /min [facility] Work Phone: 02-17-2022 14:57-0400 SaO2% (BldA) [Mass fraction] 97 % [facility] Work Phone: 02-17-2022 13:22-0400 Body temperature 98.4 [degF] [facility] Work Phone: 02-17-2022 13:22-0400 Diastolic blood pressure 69 mm[Hg] [facility] Work Phone: 02-17-2022 13:22-0400 Systolic blood pressure 139 mm[Hg] [facility] Work Phone: 02-17-2022 12:53-0400 Body height 165.[address] [facility] Work Phone: 02-17-2022 12:53-0400 Body mass index (BMI) [Ratio] 33.1 kg/m2 [facility] Work Phone: 02-17-2022 12:53-0400 Body weight 90.[address] [facility] Work Phone: 12-22-2021 21:18-0400 Body height 165.[address] [facility] Work Phone: 12-22-2021 21:18-0400 Body mass index (BMI) [Ratio] 31.6 kg/m2 [facility] Work Phone: 12-22-2021 21:18-0400 Body temperature 97.8 [degF] [facility] Work Phone: 12-22-2021 21:18-0400 Body weight 86.[address] [facility] Work Phone: 12-22-2021 21:18-0400 Diastolic blood pressure 96 mm[Hg] [facility] Work Phone: 12-22-2021 21:18-0400 Heart rate 89 /min [facility] Work Phone: 12-22-2021 21:18-0400 Respiratory rate 16 /min [facility] Work Phone: 12-22-2021 21:18-0400 SaO2% (BldA) [Mass fraction] 97 % [facility] Work Phone: 12-22-2021 21:18-0400 Systolic blood pressure 115 mm[Hg] [facility] Work Phone: 11-22-2021 13:53-0400 Diastolic blood pressure 57 mm[Hg] [facility] Work Phone: 11-22-2021 13:53-0400 Heart rate 91 /min [facility] Work Phone: 11-22-2021 13:53-0400 Systolic blood pressure 123 mm[Hg] [facility] Work Phone: 11-22-2021 13:52-0400 Body temperature 98.2 [degF] [facility] Work Phone: 11-22-2021 13:52-0400 SaO2% (BldA) [Mass fraction] 99 % [facility] Work Phone: 11-22-2021 13:43-0400 Body height 165.[address] [facility] Work Phone: 11-22-2021 13:43-0400 Body mass index (BMI) [Ratio] 30.7 kg/m2 [facility] Work Phone: 11-22-2021 13:43-0400 Body weight 83.[address] [facility] Work Phone: 11-04-2021 06:53-0400 Heart rate 80 /min Dr. David Mckinney Work Phone: [facility] Work Phone: 11-04-2021 06:53-0400 SaO2% (BldA) [Mass fraction] 98 % Dr. David Mckinney Work Phone: [facility] Work Phone: 11-04-2021 04:23-0400 Body temperature 97.8 [degF] Dr. David Mckinney Work Phone: [facility] Work Phone: 11-04-2021 04:23-0400 Diastolic blood pressure 57 mm[Hg] Dr. David Mckinney Work Phone: [facility] Work Phone: 11-04-2021 04:23-0400 Systolic blood pressure 106 mm[Hg] Dr. David Mckinney Work Phone: [facility] Work Phone: 11-03-2021 21:27-0400 Body height 165.[address] David Mckinney Work Phone: [facility] Work Phone: 11-03-2021 21:27-0400 Body mass index (BMI) [Ratio] 29.9 kg/m2 Dr. David Mckinney Work Phone: [facility] Work Phone: 11-03-2021 21:27-0400 Body weight 81.[address] David Mckinney Work Phone: [facility] Work Phone: 09-13-2021 14:46-0400 Heart rate 68 /min Dr. David Mckinney Work Phone: [facility] Work Phone: 09-13-2021 14:46-0400 Respiratory rate 16 /min Dr. David Mckinney Work Phone: [facility] Work Phone: 09-13-2021 14:46-0400 SaO2% (BldA) [Mass fraction] 98 % Dr. David Mckinney Work Phone: [facility] Work Phone: 09-13-2021 14:29-0400 Diastolic blood pressure 74 mm[Hg] Dr. David Mckinney Work Phone: [facility] Work Phone: 09-13-2021 14:29-0400 Systolic blood pressure 109 mm[Hg] Dr. David Mckinney Work Phone: [facility] Work Phone: 09-13-2021 11:20-0400 Body mass index (BMI) [Ratio] 27.3 kg/m2 Dr. David Mckinney Work Phone: [facility] Work Phone: 09-13-2021 11:20-0400 Body temperature 98 [degF] Dr. David Mckinney Work Phone: [facility] Work Phone: 09-13-2021 11:20-0400 Body weight 74.[address] David Mckinney Work Phone: [facility] Work Phone: 07-19-2021 09:45-0500 Body mass index (BMI) [Ratio] 27.9 kg/m2 Dr. David Mckinney Work Phone: [facility] Work Phone: 07-19-2021 09:45-0500 Body temperature 98 [degF] Dr. David Mckinney Work Phone: [facility] Work Phone: 07-19-2021 09:45-0500 Body weight 76.[address] David Mckinney Work Phone: [facility] Work Phone: 07-19-2021 09:45-0500 Diastolic blood pressure 72 mm[Hg] Dr. David Mckinney Work Phone: [facility] Work Phone: 07-19-2021 09:45-0500 Heart rate 111 /min Dr. David Mckinney Work Phone: [facility] Work Phone: 07-19-2021 09:45-0500 Respiratory rate 16 /min Dr. David Mckinney Work Phone: [facility] Work Phone: 07-19-2021 09:45-0500 SaO2% (BldA) [Mass fraction] 99 % Dr. David Mckinney Work Phone: [facility] Work Phone: 07-19-2021 09:45-0500 Systolic blood pressure 116 mm[Hg] Dr. David Mckinney Work Phone: [facility] Work Phone: Encounters Encounter Date Encounter Type Care Provider Facility Start: 05-04-2025 End: 05-04-2025 ambulatory JEANETTE PATEL Facility:[facility] Start: 05-03-2025 ambulatory David Mckinney Facility:[facility] Start: 05-03-2025 End: 05-03-2025 Emergency department patient visit David Mckinney Facility:[facility] Start: 05-02-2025 End: 05-02-2025 Emergency department patient visit David Hank Facility:[facility] Start: 04-18-2025 End: 04-18-2025 ambulatory David Mckinney Facility:[facility] Start: 04-14-2025 End: 04-14-2025 ambulatory SARAH SOLOMON Facility:[facility] Start: 04-09-2025 End: 04-09-2025 Emergency department patient visit Dr. Torres Abraham MD -Emergency Department Work Phone: Start: 03-22-2025 End: 03-22-2025 ambulatory JT LUGO Facility:[facility] Start: 03-17-2025 End: 03-17-2025 ambulatory JEANETTE PATEL Facility:[facility] Start: 03-10-2025 End: 03-10-2025 Emergency department patient visit Dr. David Mckinney MD Work Phone: -Emergency Department Work Phone: Start: 02-10-2025 End: 02-10-2025 ambulatory JT LUGO Facility:[facility] Start: 02-09-2025 End: 02-09-2025 Patient encounter [...] Start: 02-09-2025 End: 02-09-2025 ambulatory JT LUGO Facility:[facility] Start: 02-03-2025 End: 02-03-[address] David Mckinney MD Work Phone: -Laboratory Specimen Start: 02-03-2025 End: 02-03-[address] David Mckinney MD -Laboratory Specimen Work Phone: Start: 02-03-2025 End: 02-03-2025 ambulatory David Mckinney Facility:[facility] Start: 02-01-2025 End: 02-01-[address] David Mckinney MD Work Phone: -Laboratory [facility] Start: 02-01-2025 End: 02-01-[address] David Mckinney MD -Laboratory [facility] Start: 02-01-2025 End: 02-01-2025 ambulatory David Mckinney Facility:[facility] Start: 01-28-2025 End: 01-28-2025 Patient encounter procedure Kale Zimmerman [facility] [facility] Work Phone: Start: 01-28-2025 End: 01-28-[address] David Mckinney MD Work Phone: [facility] Start: 01-13-2025 End: 01-13-2025 Telephone encounter Nurse Mail Processing Clerk Shelley Mathews Work Phone: Obstetrics/Gynecology Comment on [...] 20 weeks gestation of (HCC) Encounter for antena arnel screening for malformation using ultrasound (HCC) (Primary Dx); 20 weeks gestation of (HCC) Start: 01-12-2025 End: 01-12-2025 ambulatory SARAH SOLOMON Facility:[facility] Start: 01-10-2025 End: 01-10-2025 ambulatory SOY CASSIDY Facility:[facility] Start: 12-31-2024 End: 12-31-2024 ambulatory SOY CASSIDY Facility:[facility] Start: 12-31-2024 End: 12-31-2024 Patient encounter [...] End: 2024 ambulatory Jo Sweeney RN NURSE FITNESS SALES CONSULTANT Comment on above: Headache Start: 12-11-2024 End: 12-11-2024 Emergency department patient visit Dr. David Mckinney MD Work Phone: -Emergency Department Work Phone: Start: 11-25-2024 End: 01-25-2025 Follow-up encounter Johana Turner APRN.CNM Work Phone: OB/Gynecology Start: 11-19-2024 End: 11-19-2024 ambulatory JOHANA TURNER Facility:[facility] Start: 11-19-2024 End: 11-19-2024 Telephone encounter [...] History of IUFD Start: 11-18-2024 End: 11-18-2024 [facility] J[facility]ANA [facility] Facility:[facility] Start: 11-11-2024 End: 11-11-2024 ambulatory SHARDA VALERO Facility:[facility] Start: 10-22-2024 End: 10-22-2024 E-mail encounter from caregiver Halle Hernadezkeyon CASTRO Work Phone: OB/Gynecology Start: 10-22-2024 End: 10-22-2024 Patient encounter procedure Halle Reyna RIVERACAMPAIGN MANAGEMENT SPECIALIST Work Phone: OB/Gynecology Comment on above: New Ob appointment Start: 10-21-2024 End: 10-21-[address] David Mckinney MD Work Phone: [facility] Work Phone: Start: 10-21-2024 End: 10-21-2024 Patient encounter procedure Rizwan Cárdenas DO -Ultrasound, [facility] Work Phone: Start: 10-21-2024 End: 10-21-2024 ambulatory David Mckinney Facility:[facility] Start: 10-11-2024 End: 10-12-2024 Emergency department patient visit Dr. David Mckinney MD Work Phone: -Emergency Department Work Phone: Start: 10-08-2024 End: 10-13-2024 Telephone encounter Margarita Hernandez RN Maternal Medicine Comment on above: Mat Maker - O ther (Initial OB RN CC pool/) Start: 10-02-2024 End: 10-02-2024 Emergency department patient visit Dr. David Mckinney MD Work Phone: -Emergency Department Work Phone: Start: 09-16-2024 End: 09-16-2024 ambulatory HORTENCIA GOULD Facility:[facility] Start: 09-16-2024 End: 09-16-2024 Patient encounter procedure Hortencia Gould APRN.CAMPAIGN MANAGEMENT SPECIALIST Work Phone: OB/Gynecology Comment on above: Encounter for IUD in sertion (Primary Dx) Start: 08-06-2024 End: 10-06-2024 Follow-up encounter Sharda Valero APRN.CNP Work Phone: OB/Gynecology Comment on above: Results Start: 07-29-2024 End: 07-29-2024 ambulatory SHARDA VALERO Facility:[facility] Start: 07-29-2024 End: 07-29-2024 Patient encounter procedure Sharda Valero DIRECT RESPONSE CONSULTANT.CAMPAIGN MANAGEMENT SPECIALIST Work Phone: OB/Gynecology Comment on above: care and examination (Primary Dx); Screening for malignant neoplasm of cervix; Encounter for other general counseling or advice on contraception Start: 07-14-2024 Encounter for genera l adult medical examination without abnormal findings Marcela Connors [facility] Start: 07-01-2024 End: 07-01-2024 ambulatory JEANETTE PATEL Facility:[facility] Start: 07-01-2024 End: 07-01-2024 Patient encounter procedure Jeanette Patel MD Work Phone: OB/Gynecology Comment on above: care and examination immediately after delivery (Primary Dx) Start: 06-18-2024 End: 06-21-2024 ambulatory Margarita Alcala MD Work Phone: OB/Gynecology Comment on above: Ob Delivery Note Start: 06-17-2024 End: 06-19-2024 Evaluation and management of inpatient Johana Turner ANIL [facility] Work Phone: Start: 06-17-2024 End: 06-17-2024 ambulatory JOHANA TURNER Facility:[facility] Start: 06-17-2024 End: 06-17-2024 Patient encounter procedure Johana Turner DIRECT RESPONSE CONSULTANT.CNM Work Phone: OB/Gynecology Comment on above: Supervision [...] Start: 06-14-2024 End: 06-14-2024 ambulatory David Mckinney Facility:[facility] Start: 06-14-2024 End: 06-14-2024 Patient encounter procedure Marcela Waylon [facility] Work Phone: Start: 06-11-2024 End: 06-11-2024 ambulatory SARAH SOLOMON Facility:[facility] Start: 06-11-2024 End: 06-11-2024 Patient encounter [...] Start: 06-09-2024 End: 06-09-2024 ambulatory Carlos Morales RNcontent production specialist [facility] Comment on above: Blood Management Start: 06-04-2024 End: 06-04-2024 ambulatory HALLE ORELLANA Facility:[facility] Start: 06-03-2024 End: 06-03-2024 Patient encounter [...] Start: 06-03-2024 End: 06-03-2024 ambulatory HALLE ORELLANA Facility:[facility] Start: 06-03-2024 End: 06-07-2024 Telephone encounter Halle Orellana APRN.CNP Work Phone: OB/Gynecology Comment on above: Results Start: 05-25-2024 End: 05-25-2024 ambulatory JEANETTE PATEL Facility:[facility] Start: 05-25-2024 End: 05-25-2024 Patient encounter procedure Jeanette Patel MD Work Phone: OB/Gynecology Comment on above: Supervision of high risk in third trimester (Primary Dx); 34 weeks gestation of Start: 05-20-2024 End: 05-20-2024 ambulatory Deanna Olivares RN NURSE FITNESS SALES CONSULTANT Comment on above: Patient Update Start: 05-12-2024 End: 05-12-2024 Patient encounter procedure Whi Tech 1 Mail Processing Clerk [employer] Maternal Medicine Comment on [...] Start: 05-12-2024 End: 05-12-2024 ambulatory JT LUGO Facility:[facility] Start: 04-29-2024 End: 04-29-2024 Telephone encounter Margarita Alcala MD Work Phone: OB/Gynecology Start: 04-28-2024 End: 04-28-2024 Office outpatient visit 15 minutes Margarita Alcala MD Work Phone: OB/Gynecology Comment on above: Supervision of high risk in third trimester (Primary Dx); 30 weeks gestation of ; History of IUFD Start: 04-22-2024 End: 04-22-2024 Telephone encounter Johana Turner APRN.CNM Work Phone: OB/Gynecology Comment on above: OB Pain Start: 04-19-2024 End: 04-19-2024 Telephone encounter Nurse Mail Processing Clerk Shelley Mathews Work Phone: Obstetrics/Gynecology Comment on above: PRAF Start: 04-14-2024 End: 04-14-2024 Patient encounter procedure Mail Processing Clerk [employer] Work Phone: [...] Start: 02-18-2024 End: 02-18-2024 Telephone encounter Nurse Mail Processing Clerk Shelley Mathews Work Phone: Obstetrics/Gynecology Comment on [...] 08-10-2023 End: 08-10-2023 Emergency department patient visit [facility]-Emergency Department Work Phone: Start: 07-17-2023 End: 07-17-2023 Emergency department patient visit [facility]-Emergency Department Work Phone: Start: 07-04-2023 End: 07-04-2023 ambulatory [facility] Work Phone: Start: 07-04-2023 End: 07-04-2023 Patient encounter procedure [facility] Start: 06-10-2023 End: 06-10-2023 Emergency department patient visit [facility]-Emergency Department Work Phone: Start: 05-11-2023 End: 05-11-2023 Emergency department patient visit [facility]-Emergency Department Work Phone: Start: 05-01-2023 End: 05-01-2023 ambulatory [facility] Work Phone: Start: 05-01-2023 End: 05-01-2023 Patient encounter procedure [facility] Start: 04-02-2023 End: 04-02-2023 ambulatory [facility] Work Phone: Start: 04-02-2023 End: 04-02-2023 Discharged Recurring [facility]-Physical Therapy Work Phone: Start: 03-12-2023 End: 03-12-2023 Patient encounter procedure [facility] Work Phone: Start: 02-24-2023 End: 02-24-2023 Emergency department patient visit [facility]-Emergency Department Work Phone: Start: 01-08-2023 End: 01-08-2023 Emergency department patient visit [facility]-Emergency Department Work Phone: Start: 12-26-2022 End: 12-26-2022 ambulatory [facility] Work Phone: Start: 12-26-2022 End: 12-26-2022 Patient encounter procedure [facility]-Laboratory, Carol Dawkins Start: 10-30-2022 End: 10-30-2022 ambulatory [facility] Work Phone: Start: 10-30-2022 End: 10-30-2022 Patient encounter procedure [facility]-Laboratory, Specimen Start: 08-16-2022 End: 08-16-2022 ambulatory [facility] Work Phone: Start: 08-16-2022 End: 08-16-2022 [facility] Start: 06-07-2022 End: 06-07-2022 Patient encounter procedure [facility]el [facility] Work Phone: [facility] Comment on above: Acute otitis media, right (Primary Dx); URI, acute Start: 02-20-2022 End: 02-22-2022 [facility] and management [facility] Start: 02-17-2022 End: 02-17-2022 ambulatory [facility] Work Phone: Start: 02-17-2022 End: 02-17-2022 Patient encounter procedure [facility] [place] Start: 02-13-2022 End: 02-13-2022 ambulatory [facility] Work Phone: Start: 02-13-2022 End: 02-13-2022 Patient encounter procedure [facility]-Laboratory, Specimen Start: 12-23-2021 End: 12-23-2021 Patient encounter procedure [facility]-Vascular Lab Start: 12-22-2021 End: 12-22-2021 Emergency department patient visit [facility]-Emergency Department Start: 12-13-2021 End: 12-13-2021 Patient encounter procedure [facility]-Laboratory, [place] freight rate clerk Off Start: 11-22-2021 End: 11-22-2021 Patient encounter procedure [facility] Outpatients Start: 11-03-2021 End: 11-04-[address] David Mckinney [facility] Start: 09-13-2021 End: 09-13-2021 Emergency department patient visit Dr. David Mckinney Work Phone: [facility]-Emergency Department Start: 08-01-2021 End: 08-01-[address] David Mckinney [facility] [place] freight rate clerk Off Start: 07-19-2021 End: 07-19-[address] David Mckinney Work Phone: [facility] Start: 07-09-2021 End: 07-09-[address] David Mckinney Work Phone: [facility], [place] freight rate clerk Off Procedures Date Procedure Procedure Detail Performing [...] uterus after 1st trimest 1/ gestation Johana Turner DIRECT RESPONSE CONSULTANTCASSIUS Work Phone: Start: 12-11-2024 Urnls dip stick/tabl et reagent auto microscopy Dr. David Mckinney MD Work Phone: Start: 12-11-[address] David Mckinney MD Work Phone: Start: 11-18-2024 Us uterus l imited 1/> fetuses Johana Turner DIRECT RESPONSE CONSULTANT.CNM Work Phone: Start: 11-11-2024 Antibody screen SHARDA CAMACHO Comment on above: Order Comment: Speci men Type: BLOOD SPECIMENOrdering Facility: [facility] Address: [address] [place] [address] Performed By: #### T SPN ####CC MAIN BLOOD BANKCLIA [id number] [address] Start: 10-21-2024 Transvaginal obstetr ic ultrasonography Dr. David Mckinney MD Work Phone: Start: 10-12-[address] David Mckinney MD Work Phone: Start: 10-12-2024 Urnls dip stick/tabl et reagent auto microscopy Dr. David Mckinney MD Work Phone: Start: 10-12-[address] David Mckinney MD Work Phone: Start: 09-16-2024 UA DIP,URINE HCG (POC) Hortencia Gould DIRECT RESPONSE CONSULTANT.CAMPAIGN MANAGEMENT SPECIALIST Work Phone: Start: 06-17-2024 Urnls dip stick/tabl et rgnt non-auto w/o micrscp Johana Turner DIRECT RESPONSE CONSULTANT.CNM Work Phone: Start: 06-11-2024 Urnls dip stick/tabl et rgnt non-auto w/o micrscp Sarah Solomon MD Work Phone: Start: 06-11-2024 Us preg uterus after 1st trimest 1/ gestation Jt Lugo MD Work Phone: Start: 06-03-2024 Urnls dip stick/tabl et rgnt non-auto w/o micrscp Halle Haury DIRECT RESPONSE CONSULTANT.CAMPAIGN MANAGEMENT SPECIALIST Work Phone: Start: 05-25-2024 Urnls dip stick/tabl et rgnt non-auto w/o micrscp Jeanette Patel MD Work Phone: Start: 05-12-2024 RSV VACCINE, BIVALEN T (ABRYSVO) Sarah Solomon MD Work Phone: Start: 05-12-2024 Us preg uterus after 1st trimest 1/ gestation Jt Lugo MD Work Phone: Start: 04-14-2024 Us preg uterus after 1st trimest 1/ gestation Jeanette Patel MD Work Phone: Start: 03-17-2024 Us preg uterus after 1st trimest 1/ gestation Jeanette Patel MD Work Phone: Start: 02-17-2024 Us preg uterus after 1st trimest / gestation Jeanette Patel MD Work Phone: Start: 01-01-2024 Us nuchal moncada slucency 1st gestation Sharda [place] DIRECT RESPONSE CONSULTANT.CAMPAIGN MANAGEMENT SPECIALIST Work Phone: Start: 11-13-2023 Iadna chlamydia trac homatis amplified probe tq Sharda Anjum DIRECT RESPONSE CONSULTANT.CAMPAIGN MANAGEMENT SPECIALIST Work Phone: Start: 11-13-2023 Us uterus l imited / fetuses Sharda Anjum DIRECT RESPONSE CONSULTANT.CAMPAIGN MANAGEMENT SPECIALIST Work Phone: Start: 08-10-2023 SARS-CoV-2, Influenz a [...] DTaP,Tdap,Td Vaccine (8 - Td or Tdap) [facility] Start: 07-29-2027 Screening for malign ant neoplasm of cervix Cervical Cancer Screening [facility] Start: 08-01-2025 End: 08-01-2025 Patient encounter procedure 08/01/2025 3:30 PM EST Office Visit OB/Gynecology [address] [place] [address] Sharda Valero APRN.CAMPAIGN MANAGEMENT SPECIALIST [address] [place] [address] Annual OB/Gynecology Comment on above: Annual Start: 05-04-2025 End: 05-04-2025 Patient encounter procedure Maternal Medicine Comment on above: Growth Growth /OB Start: 04-18-2025 Nonstress test [facility] Start: 04-18-2025 Obstetric monitoring [facility] Start: 04-18-2025 Vital signs measurements [facility] Start: 04-18-2025 [facility] Start: 04-18-2025 End: 04-18-2025 Patient encounter procedure 33 weeks gestation of -[facility] Work Phone: Start: 04-18-2025 Patient discharge [facility] Start: 04-06-2025 End: 04-06-2025 Patient encounter procedure Maternal Medicine Comment on above: Growth ob Start: 03-23-2025 End: 03-23-2025 Patient encounter procedure 03/23/2025 10:10 AM EDT Routine Office Visit OB/Gynecology [address] [place] [address] Jt Lugo MD [address] [place] [address] OB OB/Gynecology Comment on above: OB Start: 03-09-2025 End: 03-09-2025 ambulatory 03/09/2025 11:00 AM EDT Results Only [facility] [address] [place] [address] LAB [facility] Comment on above: LAB Start: 03-09-2025 End: 03-09-2025 Patient encounter procedure Maternal Medicine Comment on above: Growth Growth /OB Start: 02-21-2025 Influenza vaccination [facility] Start: 02-09-2025 End: 05-11-2025 ANEMIA REFLEX PANEL ANEMIA REFLEX PANEL Lab Routine Encounter for supervision of high risk in second trimester, antepartum (HCC) Chronic hypertension complicating or reason for care during childbirth (HCC) Late care (HCC) Expected: 02/09/2025, Expires: 05/11/2025 [facility] Comment on above: Expected: 02/09/2025 , Expires: 05/11/2025 Start: 02-09-2025 End: 02-09-2026 GESTATIONAL GLUCOSE SCREEN, 1-HOUR, 50 GRAM, NON-FASTING GESTATIONAL GLUCOSE SCREEN, 1-HOUR, 50 GRAM, NON-FASTING Lab Routine Encounter for supervision of high risk in second trimester, antepartum (HCC) Chronic hypertension complicating or reason for care during childbirth (HCC) Late care (HCC) Expected: 02/09/2025, Expires: 02/09/2026 [facility] Work Phone: Comment on above: Expected: 02/09/2025 , Expires: 02/09/2026 Start: 02-09-2025 End: 02-09-2026 SYPHILIS TREPONEMAL W/REFLEX SYPHILIS TREPONEMAL W/REFLEX Lab Routine Encounter for supervision of high risk in second trimester, antepartum (HCC) Chronic hypertension complicating or reason for care during childbirth (HCC) Late care (HCC) Expected: 02/09/2025, Expires: 02/09/2026 [facility] Comment on above: Expected: 02/09/2025 , Expires: 02/09/2026 Start: 02-09-2025 End: 02-09-2025 Patient encounter procedure 02/09/2025 10:10 AM EDT Routine Office Visit OB/Gynecology [address] [place], [place] [id number] Jt Lugo MD [address] [place], [place] [id number] OB OB/Gynecology Comment on above: OB Start: 01-12-2025 End: 01-12-2025 Patient encounter procedure Maternal Medicine Comment on above: Anatomy Anatomy US at 9am /O B Start: 12-31-2024 End: 04-01-2025 Bacteria identified in Urine by Culture BACTERIAL CULTURE, URINE Microbiology Routine Dysuria Expected: 12/31/2024, Expires: 04/01/2025 [facility] Comment on above: Expected: 12/31/2024 , Expires: 04/01/2025 Start: 12-31-2024 End: 04-01-2025 CBC panel - Blood by Automated count COMPLETE BLOOD COUNT Lab Routine History of gestational hypertension 18 weeks gestation of (HCC) Expected: 12/31/2024, Expires: 04/01/2025 [facility] Comment on above: Expected: 12/31/2024 , Expires: 04/01/2025 Start: 12-31-2024 End: 04-01-2025 Comprehensive metabolic 2000 panel - Serum or Plasma COMPREHENSIVE METABOLIC PANEL Lab Routine History of gestational hypertension Expected: 12/31/2024, Expires: 04/01/2025 [facility] Work Phone: Comment on above: Expected: 12/31/2024 , Expires: 04/01/2025 Start: 12-31-2024 End: 04-01-2025 Protein/Creatinine [Mass Ratio] in Urine PROTEIN / CREATININE RATIO Lab Routine History of gestational hypertension Expected: 12/31/2024, Expires: 04/01/2025 [facility] Comment on above: Expected: 12/31/2024 , Expires: 04/01/2025 Start: 12-31-2024 End: 04-01-2025 TOXICOLOGY SCREEN, ROUTINE URINE TOXICOLOGY SCREEN, ROUTINE URINE Lab Routine History of drug abuse (HCC) Expected: 12/31/2024 (Approximate), Expires: 04/01/2025 [facility] Comment on above: Expected: 12/31/2024 (Approximate), Expires: 04/01/2025 Start: 12-31-2024 End: 12-31-2024 Patient encounter procedure 12/31/2024 1:10 PM EDT Routine Office Visit OB/Gynecology [address] [place] [address] Soy Cassidy MD [address] [place] [address] 1st OB - LMP 08/19/24 OB/Gynecology Comment on above: 1st OB - LMP 08/19/24 Start: 12-17-2024 End: 12-17-2024 Patient encounter procedure 12/17/2024 12:50 PM EDT Routine Office Visit OB/Gynecology [address] [place] [address] Margarita Alcala MD [address] [place] [address] 1st OB - LMP 08/19/24 OB/Gynecology Comment on above: 1st OB - LMP 08/19/24 Start: 12-11-2024 [facility] Start: 12-11-2024 [facility] Start: 11-22-2024 End: 11-22-2024 Patient encounter procedure 11/22/2024 12:50 PM EDT Routine Office Visit OB/Gynecology [address] [place] [address] Margarita Alcala MD [address] [place] [address] New ob lmp 08/19/24 OB/Gynecology Comment on above: New ob lmp 08/19/24 Start: 11-18-2024 End: 02-17-2025 Chromosome 21 trisomy [Presence] in Blood or Tissue by Cytogenetics [facility] Comment on above: Expected: 11/18/2024 , Expires: 02/17/2025 Start: 11-18-2024 End: 11-18-2025 OBSTETRIC ULTRASOUND WHI OBSTETRIC ULTRASOUND WHI Anc Imaging Routine with uncertain dates, antepartum (HCC) 12 weeks gestation of (HCC) Expected: 11/18/2024, Expires: 11/18/2025 [facility] Comment on above: Expected: 11/18/2024 , Expires: 11/18/2025 Start: 11-18-2024 End: 02-17-2025 TYPE + SCREEN TYPE + SCREEN Blood Bank Routine with uncertain dates, antepartum (HCC) 12 weeks gestation of (HCC) Expected: 11/18/2024, Expires: 02/17/2025 [facility] Work Phone: Comment on above: Expected: 11/18/2024 , Expires: 02/17/2025 Start: 11-12-2024 End: 02-11-2025 CBC panel - Blood by Automated count COMPLETE BLOOD COUNT Lab Routine 6 weeks gestation of care, subsequent in first trimester Expected: 11/12/2024, Expires: 02/11/2025 [facility] Work Phone: Comment on above: Expected: 11/12/2024 , Expires: 02/11/2025 Start: 11-12-2024 End: 02-11-2025 Hemoglobin A1c in Blood HEMOGLOBIN A1C Lab Routine 6 weeks gestation of care, subsequent in first trimester Expected: 11/12/2024, Expires: 02/11/2025 [facility] Comment on above: Expected: 11/12/2024 , Expires: 02/11/2025 Start: 11-12-2024 End: 02-11-2025 Hepatitis B virus surface Ag [Presence] in Serum HEPATITIS B SURFACE ANTIGEN Lab Routine 6 weeks gestation of care, subsequent in first trimester Expected: 11/12/2024, Expires: 02/11/2025 [facility] Comment on above: Expected: 11/12/2024 , Expires: 02/11/2025 Start: 11-12-2024 End: 02-11-2025 Hepatitis C virus Ab [Presence] in Serum HEPATITIS C ANTIBODY IA WITH CONFIRMATION Lab Routine 6 weeks gestation of care, subsequent in first trimester Expected: 11/12/2024, Expires: 02/11/2025 [facility] Comment on above: Expected: 11/12/2024 , Expires: 02/11/2025 Start: 11-12-2024 End: 02-11-2025 HIV 1+2 Ab [Presence] in Serum or Plasma by Immunoassay HIV 1/2 COMBO WITH REFLEX TO DIFFERENTIATION Lab Routine 6 weeks gestation of care, subsequent in first trimester Expected: 11/12/2024, Expires: 02/11/2025 [facility] Comment on above: Expected: 11/12/2024 , Expires: 02/11/2025 Start: 11-12-2024 End: 02-11-2025 RUBELLA IGG ANTIBODY RUBELLA IGG ANTIBODY Lab Routine 6 weeks gestation of care, subsequent in first trimester Expected: 11/12/2024, Expires: 02/11/2025 [facility] Comment on above: Expected: 11/12/2024 , Expires: 02/11/2025 Start: 11-12-2024 End: 02-11-2025 SYPHILIS TOTAL W/REFLEX SYPHILIS TOTAL W/REFLEX Lab Routine 6 weeks gestation of care, subsequent in first trimester Expected: 11/12/2024, Expires: 02/11/2025 [facility] Comment on above: Expected: 11/12/2024 , Expires: 02/11/2025 Start: 11-12-2024 End: 02-11-2025 TYPE + SCREEN TYPE + SCREEN Blood Bank Routine 6 weeks gestation of care, subsequent in first trimester Expected: 11/12/2024, Expires: 02/11/2025 [facility] Comment on above: Expected: 11/12/2024 , Expires: 02/11/2025 Start: 11-12-2024 End: 11-12-2024 ambulatory 11/12/2024 11:15 AM EDT Results Only [facility] [address] [place] [address] [facility] Start: 10-25-2024 End: 10-25-2024 Patient encounter procedure 10/25/2024 11:00 AM EDT Initial Office Visit OB/Gynecology [address] [place] [address] Halle Orellana APRN.CAMPAIGN MANAGEMENT SPECIALIST [address] [place] [address] New ob lmp 08/19/24 OB/Gynecology Comment on above: New ob lmp 08/19/24 Start: 10-12-2024 Bacteria identified in Urine by Culture Urine Culture [facility] Start: 10-12-2024 Transvaginal obstetr ic ultrasonography [facility] Start: 10-12-2024 [facility] Start: 10-02-2024 End: 10-02-2024 [facility] Start: 08-03-2024 End: 08-03-2024 Patient encounter procedure 08/03/2024 9:30 AM EST Office Visit OB/Gynecology [address] [place] [address] Sharda Valero APRN.CAMPAIGN MANAGEMENT SPECIALIST [address] [place] [address] IUD insert OB/Gynecology Comment on above: IUD insert Start: 07-29-2024 End: 07-29-2024 Patient encounter procedure 07/29/2024 1:30 PM EST Office Visit OB/Gynecology [address] [place] [address] Sharda Valero APRN.CAMPAIGN MANAGEMENT SPECIALIST [address] [place] [address] PP OB/Gynecology Comment on above: PP Start: 07-05-2024 End: 07-05-2024 ambulatory 07/05/2024 1:30 PM EST Infusion Center Hematology/Oncology [address] [place] [address] 200 MG IRON SUCROSE 5/ 5 DOSES AUTH EXP 06/22 * Hematology/Oncology Comment on above: 200 MG IRON SUCROSE 5/ 5 DOSES AUTH 06/22 * Start: 06-30-2024 End: 06-30-2024 ambulatory 06/30/2024 3:00 PM EST Infusion Center Hematology/Oncology [address] [place] [address] 200 MG IRON SUCROSE 3/ 5 DOSES AUTH EXP 06/22 * Hematology/Oncology Comment on above: 200 MG IRON SUCROSE 3/ 5 DOSES AUTH 06/22 * Start: 06-28-2024 End: 06-28-2024 ambulatory 06/28/2024 9:00 AM EST Infusion Center Hematology/Oncology [address] [place] [address] 200 MG IRON SUCROSE / 5 DOSES AUTH EXP 06/22 * Hematology/Oncology Comment on above: 200 MG IRON SUCROSE / 5 DOSES AUTH EXP 06/22 * Start: 06-22-2024 End: 06-22-2024 ambulatory 06/22/2024 8:30 AM EST Infusion Center Hematology/Oncology [address] [place] [address] 200 MG IRON SUCROSE 2/ 5 DOSES AUTH EXP 06/22 * Hematology/Oncology Comment on above: 200 MG IRON SUCROSE 2/ 5 DOSES AUTH EXP 06/22 * Start: 06-19-2024 Patient discharge [facility] Start: 06-18-2024 Administration of medication [facility] Start: 06-18-2024 Application of ice collar, cap or bag [facility] Start: 06-18-2024 Catheterization of vein [facility] Start: 06-18-2024 Introduction of urin liu catheter [facility] Start: 06-18-2024 Measuring intake and output [facility] Start: 06-18-2024 Notification of physician [facility] Start: 06-18-2024 Procedure discontinued [facility] Start: 06-18-2024 Provision of activit y privileges [facility] Start: 06-18-2024 Vital signs measurements [facility] Start: 06-18-2024 End: 06-18-2024 [facility] Start: 06-18-2024 Documentation procedure [facility] Start: 06-17-2024 Admission procedure [facility] Start: 06-17-2024 End: 06-17-2024 ambulatory 06/17/2024 3:00 PM EST Infusion Center Hematology/Oncology [address] [place] [address] START 200 MG IRON SUCROSE 1/ 5 DOSES AUTH EXP 06/22 * Hematology/Oncology Comment on above: START 200 MG IRON FLYNN CROSE 1/ 5 DOSES AUTH EXP 06/22 * Start: 06-17-2024 End: 06-17-2024 Patient encounter procedure OB/Gynecology Comment on above: OB Routine OB/NST Start: 06-17-2024 Consultation [facility] Start: 06-14-2024 Bertrand's obstetrical version Version with Anesthesia (Not Applicable) [facility] Start: 06-14-2024 Catheterization of vein [facility] Start: 06-14-2024 Nonstress test [facility] Start: 06-14-2024 [facility] Start: 06-11-2024 End: 06-11-2024 Patient encounter [...] RSV Vaccine (1 - Risk 1-dose series) [facility] Start: 04-28-2024 End: 04-28-2024 Patient encounter procedure 04/28/2024 1:30 PM EST Routine Office Visit OB/Gynecology [address] [place] [address] Margarita Alcala MD [address] [place] [address] Routine OB OB/Gynecology Comment on above: Routine OB Start: 04-14-2024 End: 04-14-2024 Patient encounter procedure [facility] Comment on above: Growth US OB Routine OB/Growth Start: 04-13-2024 End: 04-13-2024 Patient encounter procedure OB/Gynecology Comment on above: PEGGY Start: 03-19-2024 End: 03-19-2024 ambulatory 03/19/2024 2:00 PM EDT Results Only [facility] [address] [place] [address] [facility] Start: 03-17-2024 End: 03-17-2024 Patient encounter procedure OB/Gynecology Comment on above: growth OB Start: 03-17-2024 End: 06-16-2024 CBC W Auto Differential panel - Blood COMPLETE BLOOD COUNT AND DIFFERENTIAL Lab Routine History of IUFD History of gestational hypertension Supervision of high risk in second trimester 24 weeks gestation of Expected: 03/17/2024, Expires: 06/16/2024 [facility] Comment on above: Expected: 03/17/2024 , Expires: 06/16/2024 Start: 03-17-2024 End: 06-16-2024 GESTATIONAL GLUCOSE SCREEN, 1-HOUR, 50 GRAM, NON-FASTING GESTATIONAL GLUCOSE SCREEN, 1-HOUR, 50 GRAM, NON-FASTING Lab Routine History of IUFD History of gestational hypertension Supervision of high risk in second trimester 24 weeks gestation of Expected: 03/17/2024, Expires: 06/16/2024 [facility] Work Phone: Comment on above: Expected: 03/17/2024 , Expires: 06/16/2024 Start: 03-17-2024 End: 06-16-2024 SYPHILIS TOTAL W/REFLEX SYPHILIS TOTAL W/REFLEX Lab Routine History of IUFD History of gestational hypertension Supervision of high risk in second trimester 24 weeks gestation of Expected: 03/17/2024, Expires: 06/16/2024 [facility] Comment on above: Expected: 03/17/2024 , Expires: 06/16/2024 Start: 03-16-2024 End: 03-16-2024 Patient encounter procedure 03/16/2024 10:10 AM EDT Routine Office Visit OB/Gynecology [address] [place], [place] [address] Jt Lugo MD [address] [address] PEGGY OB/Gynecology Comment on above: PEGGY Start: 02-22-2024 Covid-19 Vaccine () Covid-[address] Vacc[address] () [facility] Start: 02-22-2024 Influenza vaccination [facility] Start: 02-17-2024 End: 02-17-2024 Patient encounter procedure [facility] Comment on above: Anatomy OB AnatomyMFM consult Start: 01-20-2024 End: 01-20-2024 Patient encounter procedure [facility]aternal [facility] Comment on above: Growth/MFM CONSULT OB Start: 01-01-2024 End: 04-01-2024 Hemoglobin A1c in Blood [facility] Comment on above: Expected: 01/01/2024 , Expires: 04/01/2024 Start: 01-01-2024 End: 04-01-2024 Hepatitis B virus surface Ag [Presence] in Serum [facility] Comment on above: Expected: 01/01/2024 , Expires: 04/01/2024 Start: 01-01-2024 End: 04-01-2024 Hepatitis C virus Ab [Presence] in Serum [facility] Comment on above: Expected: 01/01/2024 , Expires: 04/01/2024 Start: 01-01-2024 End: 04-01-2024 HIV 1+2 Ab [Presence] in Serum or Plasma by Immunoassay [facility] Comment on above: Expected: 01/01/2024 , Expires: 04/01/2024 Start: 01-01-2024 End: 12-31-2024 OBSTETRIC ULTRASOUND WHI OBSTETRIC ULTRASOUND WHI Anc Imaging Routine Encounter for supervision of other normal in second trimester History of IUFD Expected: 01/01/2024, Expires: 12/31/2024 [facility] Work Phone: Comment on above: Expected: 01/01/2024 , Expires: 12/31/2024 Start: 01-01-2024 End: 04-01-[address] [facility] Comment on above: Expected: 01/01/2024 , Expires: 04/01/2024 Start: 01-01-2024 End: 04-01-[address] TR[address] [facility] Comment on above: Expected: 01/01/2024 , Expires: 04/01/2024 Start: 01-01-2024 End: 04-01-2024 SEQUENTIAL SCN SECOND TRIM SEQUENTIAL SCN SECOND TRIM Lab Routine Encounter for supervision of other normal in second trimester Expected: 01/01/2024, Expires: 04/01/2024 [facility] Comment on above: Expected: 01/01/2024 , Expires: 04/01/2024 Start: 01-01-2024 End: 04-01-2024 SYPHILIS TOTAL W/REFLEX [facility] Comment on above: Expected: 01/01/2024 , Expires: 04/01/2024 Start: 01-01-2024 End: 04-01-2024 TYPE + SCREEN [facility] Comment on above: Expected: 01/01/2024 , Expires: 04/01/2024 Start: 01-01-2024 End: 01-01-2024 Patient encounter procedure OB/Gynecology Comment on above: Nuchal ob LMP 09/27 Start: 11-13-2023 End: 11-12-2024 NUCHAL TRANSLUCENCY WHI NUCHAL TRANSLUCENCY WHI Anc Imaging Routine 6 weeks gestation of Expected: 11/13/2023, Expires: 11/12/2024 [facility] Comment on above: Expected: 11/13/2023 , Expires: 11/12/2024 Start: 08-10-2023 [facility] Start: 07-17-2023 [facility] Start: 06-23-2023 Behavioral Health Screening Behavioral Health Screening [facility] Start: 02-24-2023 [facility] Start: 02-24-2023 Streptococcus pyogen es antigen assay Group A Streptococcus Rapid Screen [facility] Start: 02-21-2023 Covid-19 Vaccine ( season) Covid-[address] Vacc[address] () [facility] Start: 06-07-2022 End: 06-21-2022 Influenza virus A and B RNA and SARS-CoV-2 (COVID-19) N gene panel - Respiratory specimen by OFELIA with probe detection [facility] Work Phone: Comment on above: Expected: 06/07/2022 , Expires: 06/21/2022 Start: 02-22-2022 Patient discharge [facility] Work Phone: Start: 02-22-2022 Consultation [facility] Work Phone: Start: 02-21-2022 Influenza vaccination INFLUENZA (#1) [facility] Start: 02-21-2022 Administration of medication [facility] Work Phone: Start: 02-21-2022 Application of ice collar, cap or bag [facility] Work Phone: Start: 02-21-2022 Catheterization of vein [facility] Work Phone: Start: 02-21-2022 Introduction of urin liu catheter [facility] Work Phone: Start: 02-21-2022 Measuring intake and output [facility] Work Phone: Start: 02-21-2022 Notification of physician [facility] Work Phone: Start: 02-21-2022 Procedure discontinued [facility] Work Phone: Start: 02-21-2022 Provision of activit y privileges [facility] Work Phone: Start: 02-21-2022 Vital signs measurements [facility] Work Phone: Start: 02-21-2022 [facility] Work Phone: Start: 02-20-2022 Admission procedure [facility] Work Phone: Start: 02-17-2022 Eval c/v amniotic fl uid protein qual ea specimen EVAL AMNIOTIC FLUID PROTEIN [facility] Work Phone: Start: 02-17-2022 monitoring lab or phys written report MONITOR W/REPORT [facility] Work Phone: Start: 02-17-2022 nonstress test NON-STRES S TEST [facility] Work Phone: Start: 02-17-2022 Nonstress test [facility] Work Phone: Start: 02-17-2022 Obstetric monitoring [facility] Work Phone: Start: 02-17-2022 Vital signs measurements [facility] Work Phone: Start: 02-17-2022 [facility] Work Phone: Start: 02-17-2022 Patient discharge [facility] Work Phone: Start: 12-22-2021 US.doppler Lower extremity vein [facility] Work Phone: Start: 12-22-2021 [facility] Work Phone: Start: 11-22-2021 Nonstress test [facility] Work Phone: Start: 11-22-2021 Obstetric monitoring [facility] Work Phone: Start: 11-22-2021 Vital signs measurements [facility] Work Phone: Start: 11-22-2021 [facility] Work Phone: Start: 11-04-2021 Patient discharge [facility] Work Phone: Start: 11-03-2021 Nonstress test [facility] Work Phone: Start: 11-03-2021 Obstetric monitoring [facility] Work Phone: Start: 11-03-2021 Vital signs measurements [facility] Work Phone: Start: 11-03-2021 End: 11-03-2021 [facility] Work Phone: Start: 06-23-2021 DEPRESSION ASSESSMENT DEPRESSION ASS ESSMENT [facility] Start: 03-13-2021 COVID-19 VACCINE (2 - Moderna series) COVID-19 VACCINE (2 - Moderna series) [facility] Start: 03-19-2020 Urine microalbumin profile DTaP,Tdap,Td Vaccine (7 - Td or Tdap) [facility] Start: 2017 PAP TESTING PAP TESTING [facility] Start: 2017 Screening for malign ant neoplasm of cervix [facility] Start: 12-28-2015 Urine microalbumin profile DTAP,TDAP,TD (1 - Tdap) [facility] Start: 2014 Anxiety Screening Anxiety Screening [facility] Start: 2014 Depression Screening Depression Scre ening [facility] Start: 2014 HEPATITIS C SCREENING HEPATITIS C [facility] Start: 2014 Hepatitis C screening Hepatitis C [facility] Start: 2014 HIV SCREENING HIV SCREENING [facility] Start: 2014 HIV screening HIV Screening [facility] Start: 2010 PEDS TO ADULT TRANSI TION ANNUAL ASSESSMENT PEDS TO ADULT TRANSITION ANNUAL ASSESSMENT [facility] Start: 2008 PEDS TO ADULT TRANSI TION INITIAL DISCUSSION PEDS TO ADULT TRANSITION INITIAL DISCUSSION [facility] Start: 12-28-2007 HPV VACCINE (1 - 2-d ose series) HPV VACCINE (1 - 2-dose series) [facility] Start: 1996 HEPATITIS B (1 of 3 - 3-dose series) HEPATITIS B (1 of 3 - 3-dose series) [facility] Bacteria identified in Urine by Culture URINE CULTURE Microbiology Routine 6 weeks gestation of care, subsequent in first trimester 11/13/2023 3:[address] [facility] Bilirubin measuremen t, urine [facility] Chlamydia trachomatis+Neisseria gonorrhoeae DNA [Presence] in Unspecified specimen by OFELIA with probe detection GONORRHEA/CHLAMYDIA NAAT Lab Routine with uncertain dates, antepartum (HCC) 12 weeks gestation of (HCC) 11/18/2024 1:[address] [facility] nonstress test NON-S TRESS TEST Procedures Routine History of IUFD Ordered: 04/28/2024 [facility] Work Phone: Comment on above: Ordered: 04/28/2024 Hemoglobin [Presence ] in Urine [facility] Insertion intrauteri ne device iud INSERT INTRAUTERINE DEVICE Procedures Routine Encounter for other general counseling or advice on contraception Ordered: 07/29/2024 [facility] Work Phone: Comment on above: Ordered: 07/29/2024 Measurement of keton es in urine using dipstick [facility] Microscopic urinalysis [facility] End: 04-16-2024 OBSTETRIC ULTRASOUND WHI OBSTETRIC ULTRASOUND WHI Anc Imaging Routine History of IUFD Once per month for 2 Occurrences starting 02/17/2024 until 04/16/2024 [facility] Work Phone: Comment on above: Once per month for 2 Occurrences starting 02/17/2024 until 04/16/2024 End: 07-23-2024 OBSTETRIC ULTRASOUND WHI OBSTETRIC ULTRASOUND WHI Anc Imaging Routine Supervision of other high risk pregnancies, third trimester Polyhydramnios in third trimester complication, single or unspecified fetus History of IUFD Every 3 weeks for 3 Occurrences starting 04/14/2024 until 07/23/2024 [facility] Work Phone: Comment on above: Every 3 weeks for 3 Occurrences starting 04/14/2024 until 07/23/2024 End: 05-31-2025 OBSTETRIC ULTRASOUND WHI OBSTETRIC ULTRASOUND WHI Anc Imaging Routine Encounter for supervision of high risk in second trimester, antepartum (HCC) Chronic hypertension complicating or reason for care during childbirth ([facility]) Once per month for 6 Occurrences starting 01/12/2025 until 05/31/2025 [facility] Work Phone: Comment on above: Once per month for 6 Occurrences starting 01/12/2025 until 05/31/2025 Organism count, microscopic method [facility] PAP TEST PAP TEST Lab Tonny chase care and examination Screening for malignant neoplasm of cervix 07/29/2024 1:[address] [facility] Path report.final Dx Spec [facility] Patient Education [facility] Work Phone: Patient referral [facility] Work Phone: pH of Urine [facility] ROUTINE, GR OUP B STREP PCR ROUTINE, GROUP B STREP PCR Microbiology Routine 36 weeks gestation of 06/11/2024 11:55 AM EST [facility] Work Phone: Specific gravity of Urine [facility] Urine culture [facility] Urine dipstick for glucose [facility] Urine dipstick for leukocyte esterase [facility] Urine dipstick for nitrite [facility] Urine dipstick for protein [facility] Urine examination [facility] Urine microscopy: epithelial cells [facility] Urine microscopy: re d cells [facility] URINE OB DIP B/O URINE OB DIP B/ O Lab Routine Encounter for supervision of normal in multigravida in first trimester 9 weeks gestation of Ordered: 12/01/2023 [facility] Work Phone: Comment on above: Ordered: 12/01/2023 Urobilinogen [Presen ce] in Urine [facility] White blood cell count [facility] Immunizations Immunization Date Immunization Notes Care Provider Darya mallory 05-12-2024 respiratory syncytia l virus (RSV) vaccine, bivalent (ABRYSVO) Whi Mob [facility] 04-14-2024 tetanus toxoid, redu anju diphtheria toxoid, and acellular pertussis vaccine, adsorbed Margarita Alcala MD Work Phone: [facility] 02-13-2021 COVID-19 original vaccine, full dose, monovalent (MODERNA) Margarita Alcala MD Work Phone: [facility] 02-10-2017 measles, mumps and rubella virus vaccine Dr. David Mckinney Work Phone: [facility] 01-05-2014 human papilloma viru s vaccine, quadrivalent Margarita Alcala MD Work Phone: [facility] 03-19-2010 human papilloma viru s vaccine, quadrivalent Margarita Alcala MD Work Phone: [facility] 03-19-2010 tetanus toxoid, redu anju diphtheria toxoid, and acellular pertussis vaccine, adsorbed Margarita Alcala MD Work Phone: [facility] 03-19-2010 varicella virus vaccine Jo-Ann Alcala MD Work Phone: [facility] 01-05-2001 diphtheria, tetanus toxoids and acellular pertussis vaccine, unspecified formulation Margarita Alcala MD Work Phone: [facility] 01-05-2001 measles, mumps and rubella virus vaccine Margarita Alcala MD Work Phone: [facility] 01-05-2001 poliovirus vaccine, inactivated Margarita Alcala MD Work Phone: [facility] 09-20-1999 varicella virus vaccine Jo-Ann Alcala MD Work Phone: [facility] 09-10-1999 diphtheria, tetanus toxoids and acellular pertussis vaccine, unspecified formulation Margarita Alcala MD Work Phone: [facility] 11-13-1998 diphtheria, tetanus toxoids and acellular pertussis vaccine, unspecified formulation Margarita Alcala MD Work Phone: [facility] 11-13-1998 poliovirus vaccine, inactivated Margarita Alcala MD Work Phone: [facility] 02-21-1998 haemophilus influenz ae type b vaccine, HbOC conjugate Margarita Alcala MD Work Phone: [facility] 02-21-1998 hepatitis B vaccine, pediatric or pediatric/adolescent dosage Margarita Alcala MD Work Phone: [facility] 02-21-1998 measles, mumps and rubella virus vaccine Margarita Alcala MD Work Phone: [facility] 12-20-1997 diphtheria, tetanus toxoids and acellular pertussis vaccine, unspecified formulation Margarita Alcala MD Work Phone: [facility] 12-20-1997 haemophilus influenz ae type b vaccine, HbOC conjugate Margarita Alcala MD Work Phone: [facility] 12-20-1997 poliovirus vaccine, inactivated Margarita Alcala MD Work Phone: [facility] 11-11-1997 diphtheria, tetanus toxoids and acellular pertussis vaccine, unspecified formulation Margarita Alcala MD Work Phone: [facility] 11-11-1997 haemophilus influenz ae type b vaccine, HbOC conjugate Margarita Alcala MD Work Phone: [facility] 11-11-1997 hepatitis B vaccine, pediatric or pediatric/adolescent dosage Margarita Alcala MD Work Phone: [facility] 11-11-1997 poliovirus vaccine, inactivated Margarita Alcala MD Work Phone: [facility] 1996 hepatitis B vaccine, pediatric or pediatric/adolescent dosage Margarita Alcala MD Work Phone: [facility] Payers Date Payer Category Payer Self-pay [id number] 2022 Medicaid [id number] 2017 Unknown [id number] 2017 Unknown [id number] Unknown [id number] 2.16.8 [id number] Unknown [id number] 2.16.8 [id number] Unknown [id number] 2.16.8 [id number] Unknown [id number] 2.16.8 [id number] Unknown [id number] 2.16.8 [id number] Unknown [id number] 2.16.8 [id number] Unknown [id number] 2.16.8 [id number] Unknown [id number] 2.16.8 [id number] Unknown [id number] 2.16.8 [id number] Unknown [id number] 2.16.8 [id number] Unknown [id number] 2.16.8 [id number] Unknown [id number] 2.16.8 [id number] Unknown [id number] 2.16.8 [id number] Unknown [id number] 2.16.8 [id number] Unknown [id number] 2.16.8 [id number] Unknown [id number] 2.16.8 [id number] Social History Date Type Detail Facility [facility] Work Phone: Start: 11-03-2021 End: 08-10-2023 Tobacco smoking status PAIS Unknown if ever smoked [facility] Start: 01-13-2020 None [facility] Start: 1995 Sex Assigned At Female [facility] Start: 06-07-2022 End: 11-13-2023 Tobacco smoking status NHIS Never smoked tobacco [facility] Start: 06-07-2022 End: 02-17-2024 Tobacco use and exposure Smokeless tobacco non-user [facility] Start: 1995 Sex Assigned At Not on file [facility] History of tobacco use Passive smoker [facility] Start: 11-13-2023 End: 12-31-2024 Alcohol intake Ex-drinker (finding) [facility] Start: 11-13-2023 End: 11-18-2024 History of Social function [facility] Start: 11-13-2023 End: 11-18-2024 Tobacco use panel [facility] Start: 05-24-2012 National Score (1-100), lower number is lower risk 90 [facility] Start: 11-10-[address] [facility] Start: 10-12-2023 [facility] Start: 11-12-2023 Gender identity Identifies as female gender (finding) [facility] Start: 11-12-2023 Sexual orientation Heterosexual (fin ding) [facility] Start: 02-17-2024 End: 04-09-2025 Tobacco smoking status NHIS Ex-smoker [facility] History of tobacco use Current smoker [facility] History of tobacco use Cigarette Smoker [facility] Start: 10-02-2024 End: 10-12-2024 Sex Female (finding) [facility] NEGATED: Highlighted row [facility] Goals Date Patient Goal Desired Activity /State Personal health goal Personal health goal Mental Status Date Assessment Result Facility 08-10-2023 Cognitive function Level Of Cons ciousness Awake;Alert;Appropriate;Follow s Commands [facility] Work Phone: 06-10-2023 Cognitive function Level Of Cons ciousness Awake;Alert;Appropriate;Drowsy [facility] Work Phone: 05-11-2023 Cognitive function Level Of Cons ciousness Awake;Alert;Appropriate [facility] Work Phone: 02-24-2023 Cognitive function Level Of Cons ciousness Awake;Alert;Appropriate [facility] Work Phone: 09-13-2021 Cognitive function Level Of Cons ciousness Awake;Alert;Appropriate;Follow s Commands [facility] Work Phone: Clinical Notes 02-22-2022 to 05-04-2025 Note Date & Type Note Facility 05-04-2025 Note HNO ID: [id number] Author: MARGARITA ALCALA MD Service: ? Author Type: Physician Type: Progress Notes Filed: 05/04/2025 13:33 Note Text: NST SUMMARY PROVIDER ASSESSMENT AND INTERPRETATION Indications for NST: Chronic HTN Baseline: 130 Variability: Moderate Accelerations: Present 15 X 15 Decelerations: None Interpretation: Reactive SIGNATURE: Margarita Alcala MD [facility] 04-09-2025 Discharge summary [facility] 04-09-2025 Radiology Diagnostic study note [facility] Imaging Services [address], [place] [address] Knee 1 or 2 Views MR#: [id number] Acct: [id number] Name: SHILPA HOANG Rep #: [id number] : 1995 F 29 From: Damon York MD PCP: Dr. David Mckinney MD Status: REG ER Study:Knee 1 or 2 Views Date of Exam: Exam# [id number] Ordering Dr: Torres Abraham MD PROCEDURE: LEFT [...] No acute fracture or dislocation. Reading Location: [facility] CC: Dr. Torres Abraham MD; Dr. David Mckinney MD ~ Material Man: Signed [facility] 04-09-2025 Radiology Diagnostic study note [facility] Imaging Services [address], [place] [address] Ankle min 3 Views MR#: [id number] Acct: [id number] Name: SHILPA HOANG Rep #: [id number] : 1995 F 29 From: Damon York MD PCP: Dr. David Mckinney MD Status: REG ER Study:Ankle min 3 Views Date of Exam: Exam# [id number] Ordering Dr: Torres Abraham MD PROCEDURE: LEFT [...] No acute fracture or dislocation. Reading Location: [id number] CC: Dr. Torres Abraham MD; Dr. David Mckinney MD ~ Material Man: Signed [facility] 04-09-2025 Discharge summary Note Date/Time April 09, 2025 8:07pm [facility] Medical Records Department [address] [facility] [place] [address] Emergency Department Summary 04/09/25 MR#: [id number] Acct: [id number] Name: SHILPA HAONG Rep #:[id number] : 1995 29 From: [...] down to her foot. Denies other injuries. [facility] Medical History (spontaneous vaginal delivery) Depression Family history of hearing loss at age younger than 7 years Gestational HTN Stillborn, normal History of placental abruption Trauma depression Anxiety Cervical myofascial strain Home Medications ?Medication ?Instructions ?Recorded ?Last Taken ?Type ytbcziaz-not-Fu-FA 1 mg 1 tab PO DAILY pregna [...] No acute fracture or dislocation. Reading Location: [facility] Knee X-Ray 04/09/25 17:40 IMPRESSION: No acute fracture or dislocation. Reading Location: [facility] Discharge Plan Triage Chief Complaint: Lower Extremity Injury ED Provider: Torres Abraham Dx/Rx/DC Orders Clinical Impression: Left ankle sprain, Instructions: ED Ankle Sprain (Adult) Prescriptions: No Action ddqownrn-bgy-Ls-FA 1 mg Tablet 1 tab PO DAILY [...] left lower extremity when possible. Print Language: Australian Disposition Disposition: Home, Self Care What to do if you have Problems For any increased pain, shortness of breath, bleeding, nausea or vomiting, chestpain, or any unexpected problems, contact your Primary Care Provider. Call [facility] ([phone]) or report to the closest Emergency Room. Call 911 if necessary. 04/09/251906 <Electronically signed by Torres Abraham MD> Cosigner Signature (if applicable): CC: Dr. David Mckinney MD ~ Signed [facility] Work Phone: [phone] 353-932509-25-2025 NoteHNO ID: [id number] Author: IDA CISNEROS MA Service: ? Author Type: Sand Filler Type: Progress Notes Filed: 03/17/2025 12:32 Note Text: Patient identified by name and date of . Shilpa Latter-Day presents today for a vaccination of Tdap. Patient denies an allergy to latex: yes Patient denies a severe (life-threatening) allergy to a previous dose of Tdap, DTP, DTaP, DT or Td vaccine. Yes Patient denies history of epilepsy or neurological problems: Yes Patient is afebrile and denies being moderately or severely ill: Yes Patient denies history of Guillain-Seibert Syndrome (a severe paralytic illness): Yes Tdap Adacel injection was given without incident. See immunizations for details of immunizations administered today. VIS sheet provided: Yes Provider Jeanette Patel MD was present in office at time of injection. Ida Cisneros [facility]09-18-2025 Discharge summary [facility] Medical Records Department [address] [place] [address] Emergency Department Summary 03/10/25 MR#: [id number] Acct: [id number] Name: SHILPA HOANG Rep #:[id number] : [...] good movement from the baby. 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 Been taking Tylenol for symptoms her last [...] Medications ?Medication ?Instructions ?Recorded ?Last Taken ?Type exqaazak-fcz-Cz-FA 1 mg 1 tab PO DAILY pregna [...] seem more comfortable. Case is discussed with DIRECTOR OF RESTAURANT call for [facility], Dr. Lugo. She is comfortable with patient [...] stable condition. Management Discussion w/another healthcare provider: Boiler Room Operator Discharge Plan Triage Chief Complaint: Cough ED [...] cold symptoms) Qty: 20 0RF No Action aosvkorc-mha-Oj-FA 1 mg Tablet 1 tab PO DAILY [...] Follow up with your family doctor and DIRECTOR OF RESTAURANT. You may take qqug-jvt-ygsbmds decongestant such as Tylenol Cold and flu or Mucinex DM. You been given a prescription for Mucinex DM. You may also use Flonase which is available gqub-lxz-dfvmasn. Use as directed do not use for more than 3 days because ofthe increased risk of rebound congestion. If you have worsening symptoms, feveror difficulty breathing please return to the emergency room. Print Language: Australian Disposition Disposition: Home, Self Care Discharge Date/Time: 03/10/25 14:55 What to do if you have Problems For any increased pain, shortness of breath, bleeding, nausea or vomiting, chestpain, or any unexpected problems, contact your Primary Care Provider. Call [facility] ([phone]) or report tothe closest Emergency Room. Call 911 if necessary. 03/10/25 1630 Cosigner Signature (if applicable): CC: Dr. David Mckinney MD ~ Signed [facility]09-18-2025 Discharge summary Author Mindy Jorge [facility] Note Date/Time March 10, 2025 2:55pm [facility] Medical Records Department [address] [place] [address] Emergency Department Summary 03/10/25 MR#: [id number] Acct: [id number] Name: SHILPA HOANG Rep #:[id number] : [...] good movement from the baby. 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 Been taking Tylenol for symptoms her last [...] Denies easy bleeding or easy bruising PFSH [facility] Medical History (spontaneous vaginal delivery) Depression Family history of hearing loss at age younger than 7 years Gestational HTN Stillborn, normal History of placental abruption Trauma depression Anxiety Cervical myofascial strain Home Medications ?Medication ?Instructions ?Recorded ?Last Taken ?Type trbmxktr-ede-Ew-FA 1 mg 1 tab PO DAILY pregna [...] seem more comfortable. Case is discussed with DIRECTOR OF RESTAURANT call for [facility], Dr. Lugo. She is comfortable with patient [...] stable condition. Management Discussion w/another healthcare provider: Boiler Room Operator Discharge Plan Triage Chief Complaint: Cough ED [...] cold symptoms) Qty: 20 0RF No Action epoolkfh-qql-Sd-FA 1 mg Tablet 1 tab PO DAILY [...] Follow up with your family doctor and DIRECTOR OF RESTAURANT. You may take vcoa-qwq-eivddfa decongestant such as Tylenol Cold and flu or Mucinex DM. You been given a prescription for Mucinex DM. You may also use Flonase which is available jebe-kha-lgfyvom. Use as directed do not use for more than 3 days because of the increased risk of rebound congestion. If you have worsening symptoms, feveror difficulty breathing please return to the emergency room. Print Language: Australian Disposition Disposition: Home, Self Care Discharge Date/Time: 03/10/25 14:55 What to do if you have Problems For any increased pain, shortness of breath, bleeding, nausea or vomiting, chestpain, or any unexpected problems, contact your Primary Care Provider. Call [facility] ([phone]) or report to the closest Emergency Room. Call 911 if necessary. 03/10/25 1630 <Electronically signed by Mindy Jorge DO> Cosigner Signature (if applicable): CC: Dr. David Mckinney MD ~ Signed [facility] Work Phone: [phone]) 376-973308-20-2025 Progress note* Quick Notes - Jt Lugo [...] high risk in second trimester, antepartum (HCC) - ICD9: V23.9, ICD10: O09.92 (primary diagnosis) 28 week labs next visit - GESTATIONAL GLUCOSE SCREEN, 1-HOUR, 50 GRAM, NON-FASTING - SYPHILIS TREPONEMAL W/REFLEX - ANEMIA REFLEX PANEL - URINE OB DIP B/O 2. Chronic hypertension complicating or reason for care during childbirth ([facility]) - ICD9: 642.01, ICD10: O10.92 cont. labetalol, bp stable, won't decrease meds since was difficult to get under control previously. Monitoring at home - GESTATIONAL GLUCOSE SCREEN, 1-HOUR, 50 GRAM, NON-FASTING - SYPHILIS TREPONEMAL W/REFLEX - ANEMIA REFLEX PANEL - URINE OB DIP B/O 3. Late care ([facility]) - ICD9: V23.7, ICD10: O09.30 plans regular appointment.s - GESTATIONAL GLUCOSE SCREEN, 1-HOUR, 50 GRAM, NON-FASTING - SYPHILIS TREPONEMAL W/REFLEX - ANEMIA REFLEX PANEL - URINE OB DIP B/O 4. heartburn, plans to start tums prn 5. 24 weeks gestation of ([facility]) - ICD9: V22.2, ICD10: Z3A.24 - URINE OB DIP B/O 6. Nicotine use - ICD9: 305.1, ICD10: Z72.0 hasn't smoked this entire , quit 3-4 year ago. ant. anemia- recheck levels next visit cont. Fe and PNV growth scans q 4 weeks starting next visit cont. zofran prn Jt Lugo MD [facility]08-20-2025 Miscellaneous Notes* Quick Notes - Jt Lugo [...] of high risk in second trimester, antepartum ([facility]) - ICD9: V23.9, ICD10: O09.92 (primary diagnosis) 28 week labs next visit - GESTATIONAL GLUCOSE SCREEN, 1-HOUR, 50 GRAM, NON-FASTING - SYPHILIS TREPONEMAL W/REFLEX - ANEMIA REFLEX PANEL - URINE OB DIP B/O 2. Chronic hypertension complicating or reason for care during childbirth ([facility]) - ICD9: 642.01, ICD10: O10.92 cont. labetalol, bp stable, won't decrease meds since was difficult to get under control previously. Monitoring at home - GESTATIONAL GLUCOSE SCREEN, 1-HOUR, 50 GRAM, NON-FASTING - SYPHILIS TREPONEMAL W/REFLEX - ANEMIA REFLEX PANEL - URINE OB DIP B/O 3. Late care ([facility]) - ICD9: V23.7, ICD10: O09.30 plans regular appointment.s - GESTATIONAL GLUCOSE SCREEN, 1-HOUR, 50 GRAM, NON-FASTING - SYPHILIS TREPONEMAL W/REFLEX - ANEMIA REFLEX PANEL - URINE OB DIP B/O 4. heartburn, plans to start tums prn 5. 24 weeks gestation of ([facility]) - ICD9: V22.2, ICD10: Z3A.24 - URINE OB DIP B/O 6. Nicotine use - ICD9: 305.1, ICD10: Z72.0 hasn't smoked this entire , quit 3-4 year ago. ant. anemia- recheck levels next visit cont. Fe and PNV growth scans q 4 weeks starting next visit cont. zofran prn Jt Lugo MD documented in this encounterSt. [facility] Instructions* Patient Instructions* La Bowden MA - 02/09/2025 9:56 AM EDT SEQUENTIAL SCREENINGS The [facility] offers sequential screenings for women who are [...] testing. It will require an appointment withour motion picture camera lens technician. This is not an ultrasound performed [...] the above symptoms, contact our office at [phone] and ask to speak with anurse. After hours, you can call doctors registry at [phone] OR call [facility] at [phone] ask to have the doctor regulatory submissions associate paged. If you consider this an emergency, dial 8-4-5 or go to your nearest emergency department. NEED HELP? Are you dealing with a violent or abusive relationship? Are you a victim of rape or sexual assult? Call [facility] ([place]) 24 hour Crisis Hotline: 948.320.8970 or 882-434-6343. MANUAL Your Guide to a Healthy manual is now on-line. Visit [email or web address] to download your free copy documented in this encounterSt. [facility] Telephone encounter Note * Telephone Encounter - Carla Mckinney RN - 01/13/2025 9:59 AM EDT 2nd risk assessment form submitted 01/13/[address] [facility]07-24-2025 Miscellaneous Notes* Telephone Encounter - Carla Mckinney RN - 01/13/2025 9:59 AM EDT 2nd risk assessment form submitted 01/13/25 Carla Mckinney RN documented in this encounterSt. [facility] Progress note* Quick Notes - Sarah Huber [...] of high risk in second trimester, antepartum ([facility]) Orders: OBSTETRIC ULTRASOUND WHI; Standing Chronic hypertension complicating or reason for care during childbirth ([facility]) Continue Labetalol 100mg tid Continue PO ASA Discussed changing positions slowly if has frequent low BP notify office. Orders: OBSTETRIC ULTRASOUND WHI; Standing Late care ([facility]) History of gestational hypertension Continue ASA History of drug abuse ([facility]) Vapes nicotine containing substance 20 weeks gestation of ([facility]) Anatomy us pending today RTO 4 wks Sarah Warner MD [facility]07-23-2025 Miscellaneous Notes* Quick Notes - Sarah Huber [...] of high risk in second trimester, antepartum ([facility]) Orders: OBSTETRIC ULTRASOUND WHI; Standing Chronic hypertension complicating or reason for care during childbirth ([facility]) Continue Labetalol 100mg tid Continue PO ASA Discussed changing positions slowly if has frequent low BP notify office. Orders: OBSTETRIC ULTRASOUND WHI; Standing Late care (HCC) History of gestational hypertension Continue ASA History of drug abuse (HCC) Vapes nicotine containing substance 20 weeks gestation of (HCC) Anatomy us pending today RTO 4 wks Sarah Warner MD documented in this encounterSt. Mary[facility] Instructions* Patient Instructions* Terrie Ramirez MA - 01/12/2025 9:10 AM EDT SEQUENTIAL SCREENINGS The [facility] offers sequential screenings for women who are [...] testing. It will require an appointment withour motion picture camera lens technician. This is not an ultrasound performed [...] the above symptoms, contact our office at [phone] and ask to speak with anurse. After hours, you can call doctors registry at [phone] OR call [facility] at [phone] ask to have the doctor regulatory submissions associate paged. If you consider this an emergency, dial 9--1 or go to your nearest emergency department. NEED HELP? Are you dealing with a violent or abusive relationship? Are you a victim of rape or sexual assult? Call [facility] ([facility] 24 hour Crisis Hotline: 574.274.3659 or 198-261-5603. MANUAL Your Guide to a Healthy manual is now on-line. Visit [email or web address] to download your free copy documented in this encounterSt. Mary'[facility]07-[facility]-2025 NoteHNO ID: [id number] Author: SOY CASSIDY MD Service: ? Author [...] RTO for anatomy US and [facility] History of Present illness Narrative* Soy Cassidy [...] visit Soy Cassidy DO documented in this encounterSt. Mary'[facility]07[facility]20[facility] Progress note* Quick Notes - Soy Cassidy [...] urine CFC - Sober for [address] [facility]07-11-2025 Miscellaneous Notes* Quick Notes - Soy Cassidy [...] Sober for 6 year documented in this encounterSt. Mary'[facility]07[facility]-2025 Instructions* Patient Instructions* Emily Scott LPN - 12/31/2024 1:17 PM EDT SEQUENTIAL SCREENINGS The [facility] offers sequential screenings for women who are [...] testing. It will require an appointment withour motion picture camera lens technician. This is not an ultrasound performed [...] the above symptoms, contact our office at [phone] and ask to speak with anurse. After hours, you can call doctors registry at [phone] OR call [facility] at [phone] ask to have the doctor regulatory submissions associate paged. If you consider this an emergency, dial 9-1-3 or go to your nearest emergency department. NEED HELP? Are you dealing with a violent or abusive relationship? Are you a victim of rape or sexual assult? Call [facility] ([place]) 24 hour Crisis Hotline: 693.366.2689 or 375-788-7317. MANUAL Your Guide to a Healthy manual is now on-line. Visit [email or web address] to download your free copy documented in this encounterSt. Mary'[facility] Telephone encounter Note * Telephone Encounter - Jo Sweeney RN - 2024 8:55 PM EDT Reason for Call: H/A and numbness of the right side of her face Outcome: She is calling [address] [facility]07-07-2025 Miscellaneous Notes* Telephone Encounter - Jo Sweeney [...] side of her face. Protocols used: - Owdlhfat-OEQOG-ZE documented in this encounterSt. Mary'[facility] Telephone encounter Note * Telephone Encounter - Jo Sweeney RN - 2024 8:50 PM EDT Reason for Disposition [1] Numbness of the face, arm or leg on one side of the body AND [2] new-onset C/o 8/10 H/A and numbness of the right side of her face. Protocols used: - Wshfvkvl-VCWUZ-YN [facility]05-30-2025 Telephone encounter Note* Telephone Encounter - Justin Valentino RN - 11/19/2024 8:27 AM EDT 1st risk assessment form submitted 11/19/24. Justin Valentino RN [facility]05-30-2025 Miscellaneous Notes* Telephone Encounter - Justin Valentino RN - 11/19/2024 8:27 AM EDT 1st risk assessment form submitted 11/19/24. Justin Valentino RN documented in this encounterSt. Mary'[facility]05[facility] Progress note* Quick Notes - Johana Turner APRN.CNM - 11/18/2024 1:57 PM EDT Patient is at 12w4d gestation here for NOB. This is patient's first visit. See progress note. Johana Turner APRN.CNM [facility]05-29-2025 Miscellaneous Notes* Quick Notes - Johana Turner APRN.CNM - 11/18/2024 1:57 PM EDT Patient is at 12w4d gestation here for NOB. This is patient's first visit. See progress note. Johana Turner APRN.CNM documented in this encounterSt. Mary'[facility]05-[facility] Instructions* Patient Instructions* Shahzad Romero MA - 11/18/2024 12:58 PM EDT Please select the following link to access the [facility] Your Guide to a Healthy . [email or web address] documented in this encounterSt. Mary'[facility]05-[facility]-2025 NoteHNO ID: [id number] Author: JOHANA TURNER APRN.CNM Service: ? Author Type: Supervisor Glycerin Type: Progress Notes Filed: 11/18/2024 14:45 Note [...] the following (please check all that apply)? Supervisor Glycerin care Social History: Do you have any [...] Status: Partner: Name: Sarath Age: 33 Occupation: [employer] Gender: Male PAST MEDICAL HISTORY Diagnosis Date Drug addiction in remission ([facility]) Generalized anxiety disorder Polyhydramnios in third trimester ([facility]) 05/14/2024 PAST SURGICAL HISTORY Procedure Laterality [...] [facility]05-29-2025 History of Present illness Narrative* Johana TurnerADONIS.CNM - 11/18/2024 12:57 PM EDT OB point [...] the following (please check all that apply)? Supervisor Glycerin care Social History: Do you have any [...] Status: Partner: Name: Sarath Age: 33 Occupation: [employer] Gender: Male PAST MEDICAL HISTORY Diagnosis Date Drug addiction in remission ([facility]) Generalized anxiety disorder Polyhydramnios in third trimester ([facility]) 05/14/2024 PAST SURGICAL HISTORY Procedure Laterality [...] Anxiety, Depression, Memory loss Hx of depression. [facility] physician . Zoloft 50 mg PO daily- stopped when found out SKIN: Negative for: Rash, Itching GENITOURINARY: Negative for: vaginal itching, vaginal discharge, hematuria or dysuria SENSITIVE EXAM: The sensitive examination was discussed with the Patient or Patient's Authorized Beverage Distiller. As applicable, any other physician, advance practice provider, medical student, or other health professional student that will be observing or involved in the sensitive examination for educational or training purposes was discussed with the Patient or Authorized Beverage Distiller. The Patient or Authorized Beverage Distiller has agreed to proceed with the sensitive [...] activity, and crown-rump length 12w 2 days [facility] to room for dating verification SBIRT Shilpa [...] Your guide to a health and the Production Operator. 2) Screening: Hemoglobin A1C: ordered Baby [...] up in 4 weeks for PEGGY or jackson Turner APRN.CNM documented in this encounterSt. Mary'[facility]05[facility] Radiology Diagnostic study note [facility] Imaging Services [address], [place] [address] Transvaginal w/Preg US MR#: [id number] Acct: [id number] Name: SHILPA HOANG Rep #: [id number] : 1995 F 28 From: Peggy Tapia MD PCP: Dr. David Mckinney MD Status: REG CLI Study:Transvaginal w/Preg US Date of Exam: 10/21/24 Exam# [id number] Ordering Dr: Chelsi Cárdenas DO PROCEDURE: TRANSVAGINAL [...] 161 beats per minute. There is a dbei sac subchorionic hemorrhage measuring 2.4 x 0.9 x 1.5 cm. Estimated gestational age by ultrasound 7 weeks and 6 days, JANE 06/03/2025. Estimated gestational age by LMP 9 weeks 1 day, JANE 05/25/2025. Reading Location: [id number] CC: Dr. David Mckinney MD; DO Corby Wood Material Man: Signed [facility]04-23-2025 Telephone encounter Note* Telephone Encounter - Carla Mckinney RN - 10/13/2024 10:27 AM EDT Patient has appt - closing encounter. Carla Mckinney RN [facility]04-23-2025 Miscellaneous Notes* Telephone Encounter - Carla Mckinney [...] Return call to: self Call patient at: [phone] (cell), it is OK to leave message Payor: [facility] MEDICAID / Plan: [facility] MEDICAID / Product Type: Medicaid / Jennifer Roldan documented in this encounterSt. [facility] [facility] Telephone encounter Note * Telephone Encounter - [...] encounter to the schedulers in this office. [facility]04-18-2025 Telephone encounter Note* Telephone Encounter - Margarita [...] Return call to: self Call patient at: [phone] (cell), it is OK to leave message Payor: [facility] [place] / Plan: [facility] MEDICAID / Product Type: Medicaid / Jennifer Roldan [facility]03-27-2025 NoteHNO ID: [id number] Author: HORTENCIA GOULD APRN.CAMPAIGN MANAGEMENT SPECIALIST Service: ? Author Type: Nurse Practitioner Type: Progress Notes Filed: 09/16/2024 17:11 Note Text: Patient declined camp cook. Shilpa presents today for IUD insertion for [...] which included preparing to see the patient, ekya-sq-iptk patient care, completing clinical documentation, obtaining and/or reviewing separately obtained history, performing a medically appropriate examination, counseling and educating the patient/family/caregiver, and ordering medications, tests, or procedures. [facility]03-27-2025 History of Present illness Narrative* Hortencia Gould APRN.CNP - 09/16/2024 1:33 PM EDT Patient declined camp cook. Shilpa presents today for IUD insertion for [...] which included preparing to see the patient, svtq-lb-wbim patient care, completing clinical documentation, obtaining and/or reviewing separately obtained history, performing a medically appropriate examination, counseling and educating the pat ient/family/caregiver, and ordering medications, tests, or procedures. documented in this encounterSt. [facility] Instructions* Patient Instructions* Babita Blankenship LPN - [...] please contact the office. documented in this encounterSt. [facility] Telephone encounter Note * Telephone Encounter - Sharda Valero APRN.CNP - 08/06/2024 4:35 PM EST Please let the pt know that her Pap is normal, but it showed that she was Trich positive. I would like her to come in for a vaginal culture to confirm as pap is not the reliable test. Sharda Valero APRN.CNP [facility]02-14-2025 Miscellaneous Notes* Telephone Encounter - Sharda Valero APRN.CNP - 08/06/2024 4:35 PM EST Please let the pt know that her Pap is normal, but it showed that she was Trich positive. I would like her to come in for a vaginal culture to confirm as pap is not the reliable test. Sharda Valero APRN.CNP documented in this encounterSt. Mary'[facility]-2025 NoteHNO ID: [id number] Author: SHARDA VALERO APRN.CNP Service: ? Author Type: Nurse Practitioner Type: Progress Notes Filed: 07/29/2024 13:46 Note Text: VISIT Shilpa Hoang is a 28 year old year old here for visit. Delivery Summary: 06/18/24 ROS/ Recovery: Feeding: Bottle feeding problems: n/a Menses since delivery: n/a Menstrual pattern prior to : Regular periods [place] since delivery: Not resumed Depression: denies symptoms [...] discussed with the Patient or Patient's Authorized Beverage Distiller. As applicable, any other physician, advance practice provider, medical student, or other health professional student that will be observing or involved in the sensitive examination for educational or training purposes was discussed with the Patient or Authorized Beverage Distiller. The Patient or Authorized Beverage Distiller has agreed to proceed with the sensitive [...] external genitalia normal, normal Bartholin's glands, urethra, [place]'s glands, no vulvar lesions, no cervical lesions, [...] - 07/29/2024 1:17 PM EST VISIT Shilpa Haong is a 28 year old year old here for visit. Delivery Summary: 06/18/24 ROS/ Recovery: Feeding: Bottle feeding problems: n/a Menses since delivery: n/a Menstrual pattern prior to : Regular periods [place] since delivery: Not resumed Depression: denies symptoms [...] discussed with the Patient or Patient's Authorized Beverage Distiller. As applicable, any other physician, advance practice provider, medical student, or other health professional student that will be observing or involved in the sensitive examination for educational or training purposes was discussed with the Patient or Authorized Beverage Distiller. The Patient or Authorized Beverage Distiller has agreed to proceed with the sensitive [...] external genitalia normal, normal Bartholin's glands, urethra, [place]'s glands, no vulvar lesions, no cervical lesions, [...] IUD Sharda Valero APRN.KAITLYNN documented in this encounterSt. [facility] [facility]2025 NoteHNO ID: [id number] Author: JEANETTE PATEL MD Service: ? Author [...] in bassinet/crib in parent's room, feels rested [place] since delivery: Not resumed Emotional support: Yes [...] week visit and as needed Jeanette Patel [facility]01-09-2025 History of Present illness Narrative* Jeanette [...] in bassinet/crib in parent's room, feels rested [place] since delivery: Not resumed Emotional support: Yes [...] needed Jeanette Patel MD documented in this encounterSt. Mary'[facility] [facility]12-[facility]-2024 NoteHNO ID: [id number] Author: HIGHMAN, MARGARITA, RN Service: ? Author Type: Registered Nurse Type: Progress Notes Filed: 06/21/2024 10:56 Note Text: Patient delivered via at [facility] on 06/18/24 per Margarita Alcala MD . See OB Outcome note. Margarita Hearn RN[facility] History of Present illness Narrative* Margarita Hearn RN - 06/21/2024 10:54 AM EST Patient delivered via at [facility] on 06/18/24 per Margarita Alcala MD . See OB Outcome note. Margarita Hearn RN documented in this encounterSt. Mary'[facility] [facility]12-28-2024 [facility] Medical Records Department [address] [place] [address] Discharge Summary 06/19/24 0448 MR#: [id number] Acct: [id number] Name: SHILPA HOANG Rep #: [id number] : 1995 28 From: Margarita Alcala MD PCP: Dr. David Mckinney MD Status:DIS IN Location: BS313-4 Providers Date of Admission: 06/17/24 Date of [...] on 06/22 Medications at Discharge Home Medications xcuoygdi-zhp-Ih-FA 1 mg tablet 1 tab PO DAILY [...] 1-2 and 6 weeks or as needed. [phone] Meaningful Use Info Meaningful Use Meaningful Use [...] Provider: David Mckinney Discharge Orders/Prescriptions Prescriptions: Continued bofffqpq-omc-Tf-FA 1 mg Tablet 1 tab PO DAILY [...] can be placed): Home, Self Care 06/20/24 4347 Cosigner Signature (if applicable): CC: Dr. David Mckinney MD; Dr. Margarita Alcala MD [facility]12-26-2024 Evaluation note* Diagnosis Onset Date Resolution Status [...] vaginal delivery) acute June 17 024 3:30pm [facility] Work Phone: [phone] Progress note* Quick Notes - Johana Turner [...] 1 week for NST/PEGGY Johana Turner APRN.CNM [facility]12-26-2024 Miscellaneous Notes* Quick Notes - Johana Turner [...] NST/PEGGY Johana Turner APRN.CNM documented in this encounterSt. Mary'[facility] [facility]12-26-2024 NoteHNO ID: [id number] Author: JOHANA TURNER APRN.CNM Service: ? Author Type: Supervisor Glycerin Type: Progress Notes Filed: 06/17/2024 10:25 Note [...] TOCO: None Interpretation: Reactive SIGNATURE: [facility] History of Present illness Narrative* Johana [...] SIGNATURE: Johana Turner APRN.CNM documented in this encounterSt. Mary'[facility] [facility]12-26-2024 Instructions* Patient Instructions* Terrie Ramirez MA - 06/17/2024 8:43 AM EST SEQUENTIAL SCREENINGS The [facility] offers sequential screenings for women who are [...] testing. It will require an appointment withour motion picture camera lens technician. This is not an ultrasound performed [...] the above symptoms, contact our office at [phone] and ask to speak with anurse. After hours, you can call doctors registry at [phone] OR call [facility] at [phone] ask to have the doctor regulatory submissions associate paged. If you consider this an emergency, dial 9-1- or go to your nearest emergency department. NEED HELP? Are you dealing with a violent or abusive relationship? Are you a victim of rape or sexual assult? Call [facility] ([place]) 24 hour Crisis Hotline: 572.768.8972 or 602-506-9915. MANUAL Your Guide to a Healthy manual is now on-line. Visit [email or web address] to download your free copy documented in this encounterSt. Mary'[facility]12-23-2024 Telephone encounter Note * Telephone Encounter - Margarita Hearn RN - 06/14/2024 11:06 AM EST Faxed via [employer]. Margarita Hearn RN [facility]12-23-2024 Miscellaneous Notes* Telephone Encounter - Margarita Hearn RN - 06/14/2024 11:06 AM EST Faxed via [employer]. Margarita Highman, RN * Telephone Encounter - Jennifer Roldan - 06/14/2024 10:28 AM EST [facility] OB is requesting H&P to be faxed to [phone]. documented in this encounterSt. Mary'[facility]12-23-2024 Telephone encounter Note * Telephone Encounter - Jennifer Roldan - 06/14/2024 10:28 AM EST [facility] OB is requesting H&P to be faxed to [phone]. [facility]12-21-2024 Note Indication Evaluation of growth, Evaluation of [...] Suboptimal view: limited by late gestational age Marqeuz . Number of fetuses: 1 Dating LMP [...] 15 oz EFW by: Hadlock (HC-AC-FL) Extended Bit Tripoler 5.7 mm Extremities / Bony Struc FL [...] RDMS, RVT Read By: Vilma Farrell M.D.MATERNAL [id number] NoteHNO ID: [id number] Author: SARAH HUBER MD Service: ? Author [...] Category I and Reactive SIGNATURE: Sarah Warner [facility]12-20-2024 History of Present illness Narrative* [...] SIGNATURE: Sarah Warner MD documented in this encounterSt. Mary'[facility]12-20-2024 Progress note* Quick Notes - NeySarah Velez MD - 06/11/2024 12:00 PM EST DM-Pt doing well. Denies vaginal Bleeding, Leaking fluid, or regular Contractions. Pt reports good movement. Pt with rash - reports eczema all over body- legs/arm/face Physical Exam: Gen: female in no apparent distress Abd: soft, Gravid. Non tender to palpation. See flow sheet @ 36.5 weeks Assessment & Plan Supervision of high risk in third trimester BPP 68 -2 breathing, NST today Orders: URINE [...] GROUP B STREP PCR Sarah Warner MD [facility]12-20-2024 Miscellaneous Notes* Quick Notes - Sarah Huber [...] of high risk in third trimester BPP 68 -2 breathing, NST today Orders: URINE [...] PCR Sarah Warner MD documented in this encounterSt. Mary'[facility] [facility]12-20-2024 Instructions* Patient Instructions* Terrie Ramirez MA - 06/11/2024 10:48 AM EST SEQUENTIAL SCREENINGS The [facility] offers sequential screenings for women who are [...] testing. It will require an appointment withour motion picture camera lens technician. This is not an ultrasound performed [...] the above symptoms, contact our office at [phone] and ask to speak with anurse. After hours, you can call doctors registry at [phone] OR call [facility] at [phone] ask to have the doctor regulatory submissions associate paged. If you consider this an emergency, dial 9-3 or go to your nearest emergency department. NEED HELP? Are you dealing with a violent or abusive relationship? Are you a victim of rape or sexual assult? Call [facility] ([place]) 24 hour Crisis Hotline: 707.507.1610 or 963-529-0302. MANUAL Your Guide to a Healthy manual is now on-line. Visit [email or web address] to download your free copy documented in this encounterSt. Mary'[facility]12-18-2024 NoteHNO ID: [id number] Author: CARLOS MORALES RN Service: ? Author [...] and evaluation for treatment. documented in this encounterSt. Mary'S [facility]12-12-2024 Telephone encounter Note * Telephone Encounter - Margarita Hearn RN - 06/03/2024 3:54 PM EST 35w4d Patient notified. Will have iron studies drawn tomorrow. Margarita Hearn RN [facility]12-12-2024 Miscellaneous Notes* Telephone Encounter - Margarita Hearn [...] arranging. Halle Orellana APRN.CNP documented in this encounterSt. Mary'S [facility]12-12-2024 Telephone encounter Note * Telephone Encounter - Margarita Hearn RN - 06/03/2024 3:15 PM EST Patient will need to have iron studies drawn first before Blood Management can work on referral. Please file pending orders. Will then call patient. Margarita Hearn RN [facility]12-12-2024 Telephone encounter Note* Telephone Encounter - Halle Orellana APRN.CNP - 06/03/2024 3:07 PM EST Hemoglobin 8.8. Blood management referral placed. Please assist in arranging. Halle Orellana APRN.CNP [facility]12-12-2024 NoteHNO ID: [id number] Author: HALLE ORELLANA APRN.CNP Service: ? Author [...] None Interpretation: Reactive SIGNATURE: Halle Orellana APRN.CNP [facility]12-12-2024 Procedure note* Halle Orellana APRN.CNP - 06/03/2024 2:04 PM EST NST SUMMARY PROVIDER ASSESSMENT AND INTERPRETATION Indications for NST: Previous IUFD Baseline: 120 Variability: Moderate Accelerations: Present 15 X 15 Decelerations: None Interpretation: Reactive SIGNATURE: Halle Orellana APRN.CNP documented in this encounterSt. Mary'S [facility]12-12-2024 Progress note* Quick Notes - Halle Orellana [...] week or sooner as needed. Halle Orellana APRN.CAMPAIGN MANAGEMENT SPECIALIST [facility]12-12-2024 Miscellaneous Notes* Quick Notes - Halle Orellana APRN.CAMPAIGN MANAGEMENT SPECIALIST - 06/03/2024 1:46 PM EST EH - [...] week or sooner as needed. Halle Orellana APRN.CAMPAIGN MANAGEMENT SPECIALIST documented in this encounterSt. Mary'S [facility]12-12-2024 Instructions* Patient Instructions* Alicia Holliday MA - 06/03/2024 1:45 PM EST SEQUENTIAL SCREENINGS The [facility] offers sequential screenings for women who are [...] testing. It will require an appointment withour motion picture camera lens technician. This is not an ultrasound performed [...] the above symptoms, contact our office at [phone] and ask to speak with anurse. After hours, you can call doctors registry at [phone] OR call [facility] at [phone] ask to have the doctor regulatory submissions associate paged. If you consider this an emergency, dial 9-8 or go to your nearest emergency department. NEED HELP? Are you dealing with a violent or abusive relationship? Are you a victim of rape or sexual assult? Call [facility] ([place]) 24 hour Crisis Hotline: 631.862.2902 or 974-013-2783. MANUAL Your Guide to a Healthy manual is now on-line. Visit [email or web address] to download your free copy documented in this encounterSt. Mary'[facility]12-03-2024 NoteHNO ID: [id number] Author: JEANETTE PATEL MD Service: ? Author [...] TOCO: None Interpretation: Reactive SIGNATURE: Jeanette Patel [facility]12-03-2024 History of Present illness Narrative* [...] SIGNATURE: Jeanette Patel MD documented in this encounterSt. Mary'S [facility]12-[facility]-2024 Progress note* Quick Notes - Jeanette Patel MD - 05/25/2024 1:37 PM EST KJ - VB No. LOF No. CTXS No. Movement: present. Other c/o: No. Medication list reviewed. Physical Exam See Flow Sheet Gen: no accute distress, well appearing A/P 34w2d Estimated Date of Delivery: 07/04/24 H/o IUFD - continue weekly NSTs PTL precautions reviewed, Kick counts reviewed. Jeanette Patel MD [facility]12-03-2024 Miscellaneous Notes* Quick Notes - Jeanette Patel [...] reviewed. Jeanette Patel MD documented in this encounterSt. Mary'S [facility]12-03-2024 Instructions* Patient Instructions* Babita Blankenship LPN - 05/25/2024 1:15 PM EST SEQUENTIAL SCREENINGS The [facility] offers sequential screenings for women who are [...] testing. It will require an appointment withour motion picture camera lens technician. This is not an ultrasound performed [...] the above symptoms, contact our office at [phone] and ask to speak with anurse. After hours, you can call [employer] [facility] at [phone] OR call [facility] at [phone] ask to have the doctor regulatory submissions associate paged. If you consider this an emergency, dial 9--1 or go to your nearest emergency department. NEED HELP? Are you dealing with a violent or abusive relationship? Are you a victim of rape or sexual assult? Call [facility] ([place]) 24 hour Crisis Hotline: 935.661.7456 or 562-799-8645. MANUAL Your Guide to a Healthy manual is now on-line. Visit [email or web address] to download your free copy documented in this encounterSt. Mary'[facility]11-28-2024 Telephone encounter Note * Telephone Encounter - Rex Nam RN - 05/20/2024 3:57 PM EST Reason for call: Patient's calling regarding DIRECTOR OF RESTAURANT page sent. Patient missed the call fromprovider, requesting that another page be sent. Outcome: Conferenced to [place] DIRECTOR OF RESTAURANT Answering Service [ ] to speak with provider priscilla for Dr. Alcala. Per Boo at answering service, calls needs to be handled by Welch. Transferred to [facility] slag motor operator (), states that page was sent for DIRECTOR OF RESTAURANT regulatory submissions associate. Updated patient's on plan of care, verbalized understanding, no further questions/concerns at this time. GO TO THE EMERGENCY ROOM OR CALL 911 IF: * You develop any new symptoms * Your condition worsens * You are concerned or anxious about your condition for any other reason. If you have any questions, you can call Nurse supervisor electronics inspection back. [facility]11-28-2024 Miscellaneous Notes* Telephone Encounter - Rex Nam RN - 05/20/2024 3:57 PM EST Reason for call: Patient's calling regarding DIRECTOR OF RESTAURANT page sent. Patient missed the call fromprovider, requesting that another page be sent. Outcome: Conferenced to [place] DIRECTOR OF RESTAURANT Answering Service [ ] to speak with provider oncall for Dr. Alcala. Per Boo at answering service, calls needs to be handled by Welch. Transferred to [facility] slag motor operator (), states that page was sent for DIRECTOR OF RESTAURANT regulatory submissions associate. Updated patient's on plan of care, verbalized understanding, no further questions/concerns at this time. GO TO THE EMERGENCY ROOM OR CALL 911 IF: * You develop any new symptoms * Your condition worsens * You are concerned or anxious about your condition for any other reason. If you have any questions, you can call Nurse supervisor electronics inspection back. documented in this encounterSt. Mary'[facility]11-28-2024 Telephone encounter Note * Telephone Encounter - Deanna Olivares RN - 05/20/2024 3:36 PM EST Patient calling regarding she is 34 weeks and is having swelling in her feet and hands. Conferenced to [place] DIRECTOR OF RESTAURANT Answering [phone] to speak with provider regulatory submissions associate for Dr. Margarita Alcala. [facility]11-28-2024 Miscellaneous Notes* Telephone Encounter - Deanna Olivares RN - 05/20/2024 3:36 PM EST Patient calling regarding she is 34 weeks and is having swelling in her feet and hands. Conferenced to [place] DIRECTOR OF RESTAURANT Answering [phone] to speak with provider regulatory submissions associate for Dr. Margarita Alcala. documented in this encounterSt. Mary'[facility]11[facility]2024 Progress note* Quick Notes - Sarah Huber MD - 05/12/2024 3:59 PM EST DM-Pt doing well. Denies vaginal Bleeding, Leaking fluid, or regular Contractions. Pt reports good movement. Had growth us and bpp today. Physical Exam: Gen: female in no apparent distress Abd: soft, Gravid. Non tender to palpation. See flow sheet @ 32.[facility] Assessment & Plan Supervision of high risk in third trimester History of IUFD 32 weeks gestation of Orders: RSV VACCINE, BIVALENT (ABRYSVO) weekly NSTs Kick counts , RTO 2 wks routine OB, NST weekly Needs to start Iron Sarah Warner MD [facility]11-20-2024 Miscellaneous Notes* Quick Notes - Sarah Huber MD - 05/12/2024 3:59 PM EST DM-Pt doing well. Denies vaginal Bleeding, Leaking fluid, or regular Contractions. Pt reports good movement. Had growth us and bpp today. Physical Exam: Gen: female in no apparent distress Abd: soft, Gravid. Non tender to palpation. See flow sheet @ 32.[facility] Assessment & Plan Supervision of high risk in third trimester History of IUFD 32 weeks gestation of Orders: RSV VACCINE, BIVALENT (ABRYSVO) weekly NSTs Kick counts , RTO 2 wks routine OB, NST weekly Needs to start Iron Sarah Warner MD documented in this encounterSt. Mary'[facility]11[facility]2024 Note Indication Evaluation of growth, Evaluation of [...] movements 2: tone 2: Amniotic fluid volume 8/8 Biophysical profile score Growth Overview Exam date [...] 12 oz EFW by: Hadlock (HC-AC-FL) Extended Bit Tripoler 3.5 mm Extremities / Bony Struc FL [...] RDMS, RVT Read By: Vilma Farrell M.D.MATERNAL [id number] Instructions* Patient Instructions* Terrie Ramirez MA - 05/12/2024 3:26 PM EST SEQUENTIAL SCREENINGS The [facility] offers sequential screenings for women who are [...] testing. It will require an appointment withour motion picture camera lens technician. This is not an ultrasound performed [...] the above symptoms, contact our office at [phone] and ask to speak with anurse. After hours, you can call doctors registry at [phone] OR call [facility] at [phone] ask to have the doctor regulatory submissions associate paged. If you consider this an emergency, dial 9-- or go to your nearest emergency department. NEED HELP? Are you dealing with a violent or abusive relationship? Are you a victim of rape or sexual assult? Call [facility] ([place]) 24 hour Crisis Hotline: 139.668.5635 or 696-282-9806. MANUAL Your Guide to a Healthy manual is now on-line. Visit [email or web address] to download your free copy documented in this encounterSt. Mary'[facility]11[facility] Telephone encounter Note * Telephone Encounter - Nicci Mckeon RN - 04/29/2024 9:35 AM EST Pt notified of need for weekly NSTs starting at 32 weeks. Appointments set up for next [address] RN [facility]11-07-2024 Telephone encounter Note* Telephone Encounter - Nicci Mckeon RN - 04/29/2024 9:35 AM EST Images from the original note were not included. Margarita Alcala MD [facility] Ob-Rehabilitation Worker Pool This patient is also suppose to be weekly NSTs at 32 weeks because of HX of IUFD ([facility] recommended) She was suppose to schedule theses as she left and it does not appear she did. [facility]11-07-2024 Miscellaneous Notes* Telephone Encounter - Nicci Mckeon RN - 04/29/2024 9:35 AM EST Pt notified of need for weekly NSTs starting at 32 weeks. Appointments set up for next 3 weeks. Nicci Mckeon RN * Telephone Encounter - Nicci Mckeon RN - 04/29/2024 9:35 AM EST Images from the original note were not included. Margarita Alcala MD P [facility] Ob-Rehabilitation Worker Pool This patient is also suppose to be weekly NSTs at 32 weeks because of HX of IUFD (M recommended) She was suppose to schedule theses as she left and it does not appear she did. documented in this encounterSt. [facility] Progress note* Quick Notes - Margarita Alcala [...] weeks - NON-STRESS TEST Margarita Alcala MD [facility]11-06-2024 Miscellaneous Notes* Quick Notes - Margarita Alcala [...] TEST Margarita Alcala MD documented in this encounterSt. [facility] Instructions* Patient Instructions* Terrie Ramirez MA - 04/28/2024 1:29 PM EST SEQUENTIAL SCREENINGS The [facility] offers sequential screenings for women who are [...] testing. It will require an appointment withour motion picture camera lens technician. This is not an ultrasound performed [...] the above symptoms, contact our office at [phone] and ask to speak with anurse. After hours, you can call [employer] registry at [phone] OR call [facility] at [phone] ask to have the doctor regulatory submissions associate paged. If you consider this an emergency, dial 02-21-1 or go to your nearest emergency department. NEED HELP? Are you dealing with a violent or abusive relationship? Are you a victim of rape or sexual assult? Call [facility] ([place]) 24 hour Crisis Hotline: 807.737.3979 or 730-626-1610. MANUAL Your Guide to a Healthy manual is now on-line. Visit [email or web address] to download your free copy documented in this encounterSt. Mary[facility] Telephone encounter Note * Telephone Encounter - Margarita Hearn RN - 04/22/2024 4:43 PM EDT Left detailed message on identified voicemail. Margarita Hearn RN [facility]-31-2024 Miscellaneous Notes* Telephone Encounter - Margarita Hearn [...] you. Margarita Hearn RN documented in this encounterSt. Mary'[facility] Telephone encounter Note * Telephone Encounter - Johana Turner APRN.CNM - 04/22/2024 3:06 PM EDT If patient is not having any current pain or cramping, and feeling positive movement, I am fine forher to monitor at home. She can be seen tomorrow in office if needed. Johana Turner APRN.CNM [facility] Work Phone: [phone] 167-827710-31-2024 Telephone encounter Note* Telephone Encounter - Margarita [...] be added. Thank you. Margarita Hearn RN [facility]10-28-2024 Telephone encounter Note* Telephone Encounter - Carla Mckinney RN - 04/19/2024 8:48 AM EDT 3rd risk assessment form submitted 04/19/[address] [facility]10-28-2024 Miscellaneous Notes* Telephone Encounter - Carla Mckinney RN - 04/19/2024 8:48 AM EDT 3rd risk assessment form submitted 04/19/24 Carla Mckinney RN documented in this encounterSt. Mary'[facility]10-[facility] Note Indication Evaluation of growth Maternal obesity, [...] 9 oz EFW by: Hadlock (HC-AC-FL) Extended Bit Tripoler 3.5 mm Extremities / Bony Struc FL [...] Khushboo Easley RDMS, RVT Read By: Vilma Farrell, M.D.MATERNAL [id number] Progress note* Quick Notes - Margarita Alcala [...] ICD10: Z23 Tdap today Margarita Alcala MD [facility]10-23-2024 Miscellaneous Notes* Quick Notes - Margarita Alcala [...] today Margarita Alcala MD documented in this encounterSt. Mary'[facility]10-[facility] History of Present illness Narrative* Ida Cisneros [...] severely ill: Yes Patient denies history of Guillain-Seibert Syndrome (a severe paralytic illness): Yes Tdap Adacel injection was given without incident. See immunizations for details of immunizations administered today. VIS sheet provided: Yes Provider Margarita Alcala MD was present in office at time of injection. Ida Cisneros MA documented in this encounterSt. Mary'[facility]10-[facility] Instructions* Patient Instructions* Ida Cisneros MA - 04/14/2024 10:26 AM EDT SEQUENTIAL SCREENINGS The [facility] offers sequential screenings for women who are [...] testing. It will require an appointment withour motion picture camera lens technician. This is not an ultrasound performed [...] the above symptoms, contact our office at [phone] and ask to speak with anurse. After hours, you can call doctors registry at [phone] OR call [facility] at [phone] ask to have the doctor regulatory submissions associate paged. If you consider this an emergency, dial 3-4-1 or go to your nearest emergency department. NEED HELP? Are you dealing with a violent or abusive relationship? Are you a victim of rape or sexual assult? Call [facility] ([place]) 24 hour Crisis Hotline: 254.202.8911 or 127-659-3025. MANUAL Your Guide to a Healthy manual is now on-line. Visit [email or web address] to download your free copy documented in this encounterSt. Mary'[facility]10[facility] Progress note* Quick Notes - Marcela Connors [...] scheduled for routine visit Marcela Connors APRN.CNM [facility] Work Phone: 1(370) 589-224410-11-2024 Miscellaneous Notes* Quick Notes - Marcela Connors [...] visit Marcela Connors APRN.CNM documented in this encounterSt. Mary'[facility]10-[facility]-2024 Instructions* Patient Instructions* Shahzad Romero MA - 04/02/2024 4:18 PM EDT SEQUENTIAL SCREENINGS The [facility] offers sequential screenings for women who are [...] testing. It will require an appointment withour motion picture camera lens technician. This is not an ultrasound performed [...] the above symptoms, contact our office at [phone] and ask to speak with anurse. After hours, you can call doctors registry at [phone] OR call [facility] at [phone] ask to have the doctor regulatory submissions associate paged. If you consider this an emergency, dial 6-4-5 or go to your nearest emergency department. NEED HELP? Are you dealing with a violent or abusive relationship? Are you a victim of rape or sexual assult? Call [facility] ([place]) 24 hour Crisis Hotline: 169.674.1701 or 797-061-5759. MANUAL Your Guide to a Healthy manual is now on-line. Visit [email or web address] to download your free copy documented in this encounterSt. Mary'[facility]09-25-2024 Note Indication Evaluation of growth IUFD 26 [...] 9 oz EFW by: Hadlock (HC-AC-FL) Extended Bit Tripoler 3.3 mm Extremities / Bony Struc FL [...] RDMS, RVT Read By: Vilma Farrell M.D.MATERNAL [id number] Progress note* Quick Notes - Jt Lugo [...] SYPHILIS TOTAL W/REFLEX; Future Jt Lugo M.D. [facility]09-25-2024 Miscellaneous Notes* Quick Notes - Jt Lugo [...] Future Jt Lugo M.D. documented in this encounterSt. Mary'[facility]09-25-2024 Instructions* Patient Instructions* Babita Blankenship LPN - 03/17/2024 2:46 PM EDT SEQUENTIAL SCREENINGS The [facility] offers sequential screenings for women who are [...] testing. It will require an appointment withour motion picture camera lens technician. This is not an ultrasound performed [...] the above symptoms, contact our office at [phone] and ask to speak with anurse. After hours, you can call doctors registry at [phone] OR call [facility] at [phone] ask to have the doctor regulatory submissions associate paged. If you consider this an emergency, dial 0-- or go to your nearest emergency department. NEED HELP? Are you dealing with a violent or abusive relationship? Are you a victim of rape or sexual assult? Call [facility] ([place]) 24 hour Crisis Hotline: 757.672.9093 or 134-292-7224. MANUAL Your Guide to a Healthy manual is now on-line. Visit [email or web address] to download your free copy SEQUENTIAL SCREENINGS The [facility] offers sequential screenings for women who are [...] testing. It will require an appointment withour motion picture camera lens technician. This is not an ultrasound performed [...] the above symptoms, contact our office at [phone] and ask to speak with anurse. After hours, you can call doctors registry at [phone] OR call [facility] at [phone] ask to have the doctor regulatory submissions associate paged. If you consider this an emergency, dial 3 or go to your nearest emergency department. NEED HELP? Are you dealing with a violent or abusive relationship? Are you a victim of rape or sexual assult? Call [facility] ([place]) 24 hour Crisis Hotline: 480.212.3964 or 562-702-4764. MANUAL Your Guide to a Healthy manual is now on-line. Visit [email or web address] to download your free copy documented in this encounterSt. Mary'[facility]08-[facility] Telephone encounter Note * Telephone Encounter - Carla Mckinney RN - 02/18/2024 9:53 AM EDT 2nd risk assessment form submitted 02/18/[address] [facility]08-28-2024 Miscellaneous Notes* Telephone Encounter - Carla Mckinney RN - 02/18/2024 9:53 AM EDT 2nd risk assessment form submitted 02/18/24 Carla Mckinney RN documented in this encounterSt. Mary'S [facility]08-27-2024 Progress note* Quick Notes - Margarita Alcala [...] ICD10: Z87.59 Nml BP Margarita Alcala MD [facility]08-27-2024 Miscellaneous Notes* Quick Notes - Margarita Alcala [...] BP Margarita Alcala MD documented in this encounterSt. Mary'S [facility]08-27-2024 Instructions* Patient Instructions* Ida Cisneros MA - 02/17/2024 9:23 AM EDT SEQUENTIAL SCREENINGS The [facility] offers sequential screenings for women who are [...] testing. It will require an appointment withour motion picture camera lens technician. This is not an ultrasound performed [...] the above symptoms, contact our office at [phone] and ask to speak with anurse. After hours, you can call doctors registry at [phone] OR call [facility] at [phone] ask to have the doctor regulatory submissions associate paged. If you consider this an emergency, dial 0-1-1 or go to your nearest emergency department. NEED HELP? Are you dealing with a violent or abusive relationship? Are you a victim of rape or sexual assult? Call [facility] ([place]) 24 hour Crisis Hotline: 835.492.8655 or 518-889-5439. MANUAL Your Guide to a Healthy manual is now on-line. Visit [email or web address] to download your free copy documented in this encounterSt. Mary'S [facility]08-27-[facility] History of Present illness Narrative* Vilma Farrell MD - 02/17/2024 9:08 AM EDT Images from the original note were not included. Lead Quality Control Technician [place] OUTPATIENT VISIT DATE February 17, 2024 OUTPATIENT VISIT TYPE CONSULT REFERRING PROVIDER: Jeanette Patel MD Recommendations from today's consultation will be conveyed through the electronic medical record. History of Present Illness: 28 year old at 20w2d with Estimated Date of Delivery: 07/04/24 presenting for consultation with Maternal- Medicine at 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 Mary'S [facility]07-30-2024 Miscellaneous Notes* Quick Notes - Sarah Huber [...] trimester screen today 4) RTO 4 wks. Sarahtom Warner MD documented in this encounterSt. Mary'S [facility]07-30-2024 Progress note* Quick Notes - Sarah Huber [...] 4) RTO [address] Sarah Warner MD [facility]07-19-2024 Telephone encounter Note* Telephone Encounter - Jeanette Patel MD - 01/09/2024 10:37 AM EDT Noted & agree Jeanette Patel MD [facility]07-19-2024 Miscellaneous Notes* Telephone Encounter - Jeanette Patel [...] pain. Margarita Hearn RN documented in this encounterSt. Mary'S [facility]07-19-2024 Telephone encounter Note * Telephone Encounter - Margarita Hearn RN - 01/09/2024 8:36 AM EDT 14w5d Called and spoke with patient. She had light pink spotting during intercourse. Once intercourse discontinued, her spotting stopped. Not having any this morning. Denies pain last night or today. Advised to call the office if her bleeding returns or if she develops pain. Margarita Hearn RN [facility]07-11-2024 Progress note* Quick Notes - Jeanette Patel [...] hypertension - continue aspirin Jeanette Patel MD [facility]07-11-2024 Miscellaneous Notes* Quick Notes - Jeanette Patel [...] aspirin Jeanette Patel MD documented in this encounterSt. Mary'[facility]07-11-20[facility] Instructions* Patient Instructions* Shahzad Romero MA - 01/01/2024 9:55 AM EDT SEQUENTIAL SCREENINGS The [facility] offers sequential screenings for women who are [...] testing. It will require an appointment withour motion picture camera lens technician. This is not an ultrasound performed [...] the above symptoms, contact our office at [phone] and ask to speak with anurse. After hours, you can call doctors registry at [phone] OR call [facility] at [phone] ask to have the doctor regulatory submissions associate paged. If you consider this an emergency, dial 4-8-6 or go to your nearest emergency department. NEED HELP? Are you dealing with a violent or abusive relationship? Are you a victim of rape or sexual assult? Call [facility] ([facility] 24 hour Crisis Hotline: 346.807.8713 or 391-005-1309. MANUAL Your Guide to a Healthy manual is now on-line. Visit [email or web address] to download your free copy documented in this encounterSt. Mary'[facility]07-[facility] Telephone encounter Note * Telephone Encounter - Sarah Huber MD - 12/22/2023 3:[address] [facility]07-01-2024 Miscellaneous Notes* Telephone Encounter - Sarah Huber [...] her? Margarita Hearn RN documented in this encounterSt. Mary'[facility]07-[facility] Telephone encounter Note * Telephone Encounter - Khushboo Abraham RN - 12/22/2023 3:04 PM EDT Patient notified and voiced understanding. Please file pended order. Khushboo Abraham RN [facility]07-01-2024 Telephone encounter Note* Telephone Encounter - Sarah Huber MD - 12/22/2023 2:51 PM EDT Phenergan ordered [facility]07-01-2024 Telephone encounter Note* Telephone Encounter - Margarita Hearn RN - 12/22/2023 2:41 PM EDT 12w1d Patient asking for medication for N/V. Has tried Vitamin B6 without the Unisom and had little relief. Vomiting once a day. Keeping fluids down. Eating very little. Recommended patient eat small snacks and include some protein to keep BS regulated. Can something be called in for her? Margarita Hearn, RN [facility]06-[facility]-20[facility] Progress note* Quick Notes - Tyshawn Lorenzana MD - 12/01/2023 12:16 PM EDT Pt is a multip presenting at 9w1d with c/o cramping in the absence of UTI and concerns regarding status. Recent trips t0 [facility] ER with dx of URI/viral and currently on amox per Dr. Irina Mckinney, Pt denies bleeding and is refraining from intercourse (last time 2 days ago) with exacerbation of cramps. Trans abdominal sono reveals heart activity. IMP viable IUP at 9w1d Plan no intercourse and otherwise activity other than heavy lifting. RTO PNC as scheduled Tyshawn Lorenzana MD . [facility] Work Phone: [phone] Miscellaneous Notes* Quick Notes - Tyshawn Lorenzana MD - 12/01/2023 12:16 PM EDT Pt is a multip presenting at 9w1d with c/o cramping in the absence of UTI and concerns regarding status. Recent trips t0 [facility] ER with dx of URI/viral and currently on amox per Dr. Irina Mckinney, Pt denies bleeding and is refraining from intercourse (last time 2 days ago) with exacerbation of cramps. Trans abdominal sono reveals heart activity. IMP viable IUP at 9w1d Plan no intercourse and otherwise activity other than heavy lifting. RTO PNC as scheduled Tyshawn Lorenzana MD . documented in this encounterSt. Mary'[facility]06-[facility] Instructions* Patient Instructions* La Bowden MA - 12/01/2023 12:00 PM EDT SEQUENTIAL SCREENINGS The [facility] offers sequential screenings for women who are [...] testing. It will require an appointment withour motion picture camera lens technician. This is not an ultrasound performed [...] the above symptoms, contact our office at [phone] and ask to speak with anurse. After hours, you can call doctors registry at [phone] OR call [facility] at [phone] ask to have the doctor regulatory submissions associate paged. If you consider this an emergency, dial or go to your nearest emergency department. NEED HELP? Are you dealing with a violent or abusive relationship? Are you a victim of rape or sexual assult? Call [facility] ([place]) 24 hour Crisis Hotline: 133.961.4085 or 487-507-9301. MANUAL Your Guide to a Healthy manual is now on-line. Visit [email or web address] to download your free copy documented in this encounterSt. Mary'[facility]05[facility] Telephone encounter Note * Telephone Encounter - Liza Champagne RN - 11/14/2023 9:56 AM EDT 1st risk assessment form submitted 11/14/[address] [facility]05-24-2024 Miscellaneous Notes* Telephone Encounter - Liza Champagne RN - 11/14/2023 9:56 AM EDT 1st risk assessment form submitted 11/14/2023 6w 5d today documented in this encounterSt. 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 Sharda Valero, ADONIS.CAMPAIGN MANAGEMENT SPECIALIST ASSESSMENT: 27 year old No obstetric history on file. at Unknown wks gestational age PLAN: 1) Patient oriented to practice. Patient given new OB orientation folder. Discussed nutrition, folic acid supplementation, dietary guidelines, exercise, smoking, alcohol, caffeine, and drug use. Discussed gestational weight gain guidelines. Discussed routine OB labs including STD/HIV. Discussed how to access Your guide to a health and the Production Operator. Discussed hemoglobin electrophoresis. Patient: Declines Reviewed midwifery and color technician services that are available. 2) Screening: Hemoglobin [...] prn. Sharda Valero APRN.KAITLYNN documented in this encounterSt. Mary'[facility]05[facility] Instructions* Patient Instructions* Rachana Montanez LPN - 11/10/2023 3:12 PM EDT Please select the following link to access the [facility] Your Guide to a Healthy . [email or web address] Please select the following link to access the [facility] Your Guide to a Healthy . [email or web address] documented in this encounterSt. Mary'[facility] Discharge summary Author Piter Bertrand [facility] July 17, 2023 4:54pm Note Date/Time July 17, 2023 4 :55pm [facility] Medical Records Department [address] [place] [address] Emergency Department Summary 07/17/23 MR#: [id number] Acct: [id number] Name: SHILPA HOANG Rep #:[id number] : [...] depression (spontaneous vaginal delivery) Trauma Home Medications ahxyncoa-ant-Jt-FA 1 mg tablet 1 tab PO DAILY [...] and lower extremities. 5 out of 5 hand deicer element winder strength bilaterally. Dorsi plantarflexion intact. Mild tenderness right posterior upper shoulder no bruising. Full range of motion of the right shoulder. Able to lift her arm overhead. Full flexion extension of the right elbow nontender. Minimal tenderness to the dorsum of the right wrist no deformity normal radial pulse normal hand deicer element winder strength and sensation of the right hand. [...] pain) Qty: 20 0RF Primary Care Provider: aDvid Mckinney Referrals: David Mckinney MD [Primary Care [...] your Primary Care Provider. Call Doctors Registry ([phone]) or report to the closest Emergency Room. Call 911 if necessary. 07/17/23 [id number] <Electronically signed by Piter Bertrand MD> Cosigner Signature (if applicable): CC: Dr. David Mckinney MD ~ Signed [facility] Work Phone: 1(200) 353-514210-25-2023 Discharge summary Author Joanna England [facility] April 16, 2023 11:19am Note Date/Time April 16, 2023 1 1:19am [facility] Physical Therapy [facility] [address] [place] [address] / REHABILITATION SERVICES DISCHARGE SUMMARY MR#: [id number] Acct: [id number] Name: SHILPA HOANG Rep #: [id number] : 1995 27 From: Joanna England PT, Cert. MDT Referring Dr.: Dr. David Mckinney MD Status: REG RCR Insurance: [facility] SELF PAY INSURANCE Patient Information Patient [...] appropriate by the physician. Thank you! Joanna England, PT, Cert MDT Balance/Gait/Functional tests Balance/Special Test Scores Oswestry Low Back Score: 22 <Electronically signed by Joanna England PT, Cert. MDT> 04/16/23 1119 CC: Dr. David Mckinney MD ~ DENICE Signed [facility] Work Phone: 1(662) 707-701005-10-2023 NotePap Smear Specimen AdequacyMay 2022 1:29pmComment.Satisfactory for evaluation. Endocervical and/or squamous metaplasticcells (endocervical component)are present.Areas of partially obscuring inflammatory exudate are present.[facility] INTERFACED A#[id number] Hospitals Lake West Medical CenterComment on above:Satisfactory for evaluation. Endocervical and/or squamous metaplasticcells (endocervical component)are present.Areas of partially obscuring inflammatory exudate are present.10-30-2022 NotePap Smear Specimen AdequacyMay 2022 1:29pmComment.Satisfactory for evaluation. Endocervical and/or squamous metaplasticcells (endocervical component)are present.Areas of partially obscuring inflammatory exudate are present.[facility] INTERFACED A#[id number] Hospitals Lake West Medical CenterComment on above:Satisfactory for evaluation. Endocervical and/or squamous metaplasticcells (endocervical component)are present.Areas of partially obscuring inflammatory exudate are present.10-30-2022 NotePap Smear Specimen AdequacyMay 2022 1:29pmComment. Satisfactory for evaluation. Endocervical and/or squamous metaplasticcells (endocervical component)are present.Areas of partially obscuring inflammatory exudate are present.[facility] INTERFACED A#[id number] Hospitals Lake [facility] Medical Center Comment on above:Satisfactory for evaluation. Endocervical and/or squamous metaplasticcells (endocervical component)are present.Areas of partially obscuring inflammatory exudate are present.06-07-2022 Miscellaneous Notes* Addendum Note - Everardo Patel APRN.CAMPAIGN MANAGEMENT SPECIALIST - 06/07/2022 7:56 PM ESTAddended by: EVERARDO PATEL on: 06/07/2022 07:56 PM Modules accepted: [facility] History of Present illness Narrative* Everardo Patel APRN.CAMPAIGN MANAGEMENT SPECIALIST - 06/07/2022 7:04 PM EST CC: Patient [...] plan. Everardo Patel APRN.KAITLYNN documented in this encounterSt[facility] Hospital Discharge instructions Additional Instructions Regular diet. Weightbearing as tolerated. Okay to shower. No intercourse for 4 to 6 weeks. Call if chest pain, shortness of breath increased bleeding. Follow-up 1 week for blood pressure check, 4 to 6 weeks for visit Date of Dis[facility]: [facility]22[facility]: [phone] note* Diagnosis Onset Date Resolution Status 22 weeks gestation of acute Vaginal bleeding during , antepartum acute [facility] Work Phone: [phone] note* Diagnosis Onset Date Resolution Status 22 weeks gestation of acute Vaginal bleeding during , antepartum acute [facility] Work Phone: [phone] note* Diagnosis Onset Date Resolution Status 22 weeks gestation of acute Vaginal bleeding during , antepartum acute acute Irregular contractions acute Gestational hypertension acu te [facility] Work Phone: [employer] note* Diagnosis Acute otitis media, right- Primary Unspecified otitis media URI, acute Acute upper respiratory infections of unspecified site documented in this encounter [facility] noteNo assessment information availableUniversity [facility]als [facility] Work Phone: evaluation note* Diagnosis 6 weeks gestation of - Primary state, incidental care, subsequent in first trimester Encounter for supervision of normal in multigravida in first trimester History of gestational hypertension History of IUFD [facility]* Diagnosis Encounter for supervision of other normal in second trimester- Primary 13 weeks gestation of state, incidental History of IUFD documented in this encounter [facility] note* Diagnosis Encounter for (NT) nuchal translucency scan- Primary Other specified screening 13 weeks gestation of state, incidental Encounter for screening for malformation using ultrasound documented in this encounter [facility] note* Diagnosis Supervision of high risk in second trimester- Primary Unspecified high-risk History of IUFD History of gestational hypertension 16 weeks gestation of state, incidental [facility]* Diagnosis History of IUFD- Primary Encounter [...] at 32 weeks documented in this encounter [facility] note* Diagnosis History of IUFD- Primary [...] of gestational hypertension documented in this encounter [facility] note* Diagnosis History of IUFD- Primary Encounter for supervision of other normal in second trimester History of gestational hypertension History of drug abuse (HCC) Other, mixed, or unspecified nondependent drug abuse, in remission 20 weeks gestation of state, incidental Obesity affecting in second trimester, unspecified obesity type History of IUFD- Primary documented in this encounter [facility] note* Diagnosis History of IUFD- Primary [...] TOTAL W/REFLEX; Future documented in this encounter [facility] note* Diagnosis History of IUFD- Primary [...] of state, incidental documented in this encounter [facility] note* Diagnosis History of IUFD- Primary [...] of state, incidental documented in this encounter [facility] note* Diagnosis History of IUFD- Primary [...] unspecified single disease documented in this encounter [facility] note* Diagnosis History of IUFD- Primary [...] or unspecified fetus documented in this encounter [facility] note* Diagnosis History of IUFD- Primary [...] History of IUFD documented in this encounter [facility] note* Diagnosis Encounter for supervision of normal in multigravida in first trimester- Primary 9 weeks gestation of state, incidental documented in this encounter [facility] note* Diagnosis History of IUFD- Primary [...] History of IUFD documented in this encounter [facility] note* Diagnosis History of IUFD- Primary [...] of state, incidental documented in this encounter [facility] note* Diagnosis History of IUFD- Primary [...] History of IUFD documented in this encounter [facility] note* Diagnosis History of IUFD- Primary [...] of state, incidental documented in this encounter [facility] note* Diagnosis History of IUFD- Primary [...] unspecified obesity type [facility] Diagnosis History of IUFD- Primary [...] in third trimester documented in this encounter [facility] note* Diagnosis History of IUFD- Primary [...] third trimester- Primary documented in this encounter [facility] note* Diagnosis History of IUFD- Primary [...] poly at 28cm) documented in this encounter [facility] note* Diagnosis History of IUFD- Primary [...] of state, incidental documented in this encounter [facility] note* Diagnosis History of IUFD- Primary [...] History of IUFD [facility]* Diagnosis History of IUFD- Primary [...] after delivery- Primary documented in this encounter [facility] note* Diagnosis History of IUFD- Primary [...] advice on contraception [facility]* Diagnosis History of IUFD- Primary [...] intrauterine contraceptive device [facility]* Diagnosis History of IUFD- Primary Encounter for supervision of other normal in second trimester ([facility]) History of gestational hypertension History of drug abuse ([facility]) Other, mixed, or unspecified nondependent drug abuse, in remission 20 weeks gestation of ([facility]) state, incidental Obesity affecting in second trimester, unspecified obesity type ([facility]) Supervision of high risk in second trimester ([facility])- Primary Unspecified high-risk History of IUFD History of gestational hypertension 24 weeks gestation of ([facility]) state, incidental Supervision of high risk in third trimester ([facility])- Primary Unspecified high-risk Antepartum anemia complicating in third trimester ([facility]) History of gestational hypertension History of IUFD Leg swelling in in third trimester ([facility]) Breech presentation with problem, single or unspecified fetus ([facility]) 36 weeks gestation of ([facility]) state, incidental with uncertain dates, antepartum ([facility])- Primary state, incidental 12 weeks gestation of ([facility]) state, incidental History of gestational hypertension Late care ([facility]) Insufficient care Generalized anxiety disorder History of drug abuse ([facility]) Other, mixed, or unspecified nondependent drug abuse, in remission Vapes nicotine containing substance Encounter for supervision of high risk in second trimester, antepartum ([facility]) History of IUFD [facility]* Diagnosis History of IUFD- Primary Encounter for supervision of other normal in second trimester ([facility]) History of gestational hypertension History of drug abuse ([facility]) Other, mixed, or unspecified nondependent drug abuse, in remission 20 weeks gestation of ([facility]) state, incidental Obesity affecting in second trimester, unspecified obesity type ([facility]) Supervision of high risk in second trimester ([facility])- Primary Unspecified high-risk History of IUFD History of gestational hypertension 24 weeks gestation of ([facility]) state, incidental Supervision of high risk in third trimester ([facility])- Primary Unspecified high-risk Antepartum anemia complicating in third trimester ([facility]) History of gestational hypertension History of IUFD Leg swelling in in third trimester ([facility]) Breech presentation with problem, single or unspecified fetus ([facility]) 36 weeks gestation of ([facility]) state, incidental History of gestational hypertension- Primary History of drug abuse ([facility]) Other, mixed, or unspecified nondependent drug abuse, in remission Late care ([facility]) Insufficient care Encounter for supervision of high risk in second trimester, antepartum ([facility]) Vapes nicotine containing substance Generalized anxiety disorder 18 weeks gestation of ([facility]) state, incidental Dysuria Elevated blood pressure reading without diagnosis of hypertension documented in this encounter [facility] note* Diagnosis History of IUFD- Primary Encounter for supervision of other normal in second trimester ([facility]) History of gestational hypertension History of drug abuse ([facility]) Other, mixed, or unspecified nondependent drug abuse, in remission 20 weeks gestation of ([facility]) state, incidental Obesity affecting in second trimester, unspecified obesity type ([facility]) Supervision of high risk in second trimester ([facility])- Primary Unspecified high-risk History of IUFD History of gestational hypertension 24 weeks gestation of ([facility]) state, incidental Supervision of high risk in third trimester ([facility])- Primary Unspecified high-risk Antepartum anemia complicating in third trimester ([facility]) History of gestational hypertension History of IUFD Leg swelling in in third trimester ([facility]) Breech presentation with problem, single or unspecified fetus ([facility]) 36 weeks gestation of ([facility]) state, incidental Encounter for supervision of [...] antepartum (HCC) Orders: OBSTETRIC ULTRASOUND WHI; Standing * Assessment [...] nicotine containing substance [facility]* Diagnosis History of IUFD- Primary Encounter for supervision of other normal in second trimester ([facility]) History of gestational hypertension History of drug abuse ([facility]) Other, mixed, or unspecified nondependent drug abuse, in remission 20 weeks gestation of ([facility]) state, incidental Obesity affecting in second trimester, unspecified obesity type ([facility]) Supervision of high risk in second trimester ([facility])- Primary Unspecified high-risk History of IUFD History of gestational hypertension 24 weeks gestation of ([facility]) state, incidental Supervision of high risk in third trimester ([facility])- Primary Unspecified high-risk Antepartum anemia complicating in third trimester ([facility]) History of gestational hypertension History of IUFD Leg swelling in in third trimester ([facility]) Breech presentation with problem, single or unspecified fetus ([facility]) 36 weeks gestation of ([facility]) state, incidental Encounter for screening for malformation using ultrasound ([facility])- Primary 20 weeks gestation of ([facility]) state, incidental Encounter for supervision of high risk in second trimester, antepartum ([facility])- Primary Chronic hypertension complicating or reason for care during childbirth ([facility]) Benign essential hypertension complicating , childbirth, and the puerperium, unspecified as to episode of care Late care ([facility]) Insufficient care History of gestational hypertension History of drug abuse ([facility]) Other, mixed, or unspecified nondependent drug abuse, in remission Vapes nicotine containing substance 20 weeks gestation of ([facility]) state, incidental [facility]* Diagnosis History of IUFD- Primary Encounter for supervision of other normal in second trimester ([facility]) History of gestational hypertension History of drug abuse ([facility]) Other, mixed, or unspecified nondependent drug abuse, in remission 20 weeks gestation of ([facility]) state, incidental Obesity affecting in second trimester, unspecified obesity type ([facility]) Supervision of high risk in second trimester ([facility])- Primary Unspecified high-risk History of IUFD History of gestational hypertension 24 weeks gestation of ([facility]) state, incidental Supervision of high risk in third trimester ([facility])- Primary Unspecified high-risk Antepartum anemia complicating in third trimester ([facility]) History of gestational hypertension History of IUFD Leg swelling in in third trimester ([facility]) Breech presentation with problem, single or unspecified fetus ([facility]) 36 weeks gestation of ([facility]) state, incidental Encounter for supervision of high risk in second trimester, antepartum ([facility])- Primary Chronic hypertension complicating or reason for care during childbirth ([facility]) Benign essential hypertension complicating , childbirth, and the puerperium, unspecified as to episode of care Late care ([facility]) Insufficient care History of gestational hypertension History of drug abuse ([facility]) Other, mixed, or unspecified nondependent drug abuse, in remission Vapes nicotine containing substance 20 weeks gestation of ([facility]) state, incidental Encounter for supervision of high risk in second trimester, antepartum ([facility])- Primary Chronic hypertension complicating or reason for care during childbirth ([facility]) Benign essential hypertension complicating , childbirth, and the puerperium, unspecified as to episode of care Late care ([facility]) Insufficient care 24 weeks gestation of ([facility]) state, incidental Nicotine use Heartburn during in second trimester ([facility]) Iron deficiency anemia secondary to inadequate dietary iron intake Screening for diabetes mellitus documented in this encounter [facility] note* Diagnosis Onset Date Resolution Status Admit Date 33 weeks gestation of acute April 18 1:00pm [facility] Work Phone: Hospital Discharge instructionsWOhioHealth [facility] Work Phone: Hospital Discharge instructionsAmbulatory Orders* ON- CALL NEEDED: [facility] - Doppler Study Ordered Location: None Selected Additional Instructions You will be called tomorrow to come in for venous ultrasound of your leg. This will ensure there is no evidence of a blood clot. Please use Tylenol as needed for pain.[facility] Work Phone: Hospital Discharge instructionsWOhioHealth [facility] Medical Center Work Phone: Hospital Discharge instructions Additional Instructions Follow-up with your PCP, return for any worsening of your symptoms. You can take [id number]-ety-[id number] cold and flu medications. Stay well-hydrated. Try [...] day 10 you may resume life is normal.[facility] Work Phone: Hospital Discharge instructions Additional Instructions Please ensure that you drink enough water. Please return here for any worsening symptomsWOhioHealth [facility] Medical Center Work Phone: Hospital Discharge instructions [...] follow-up with your doctor to have it reevaluated.[facility] Work Phone: Hospital Discharge instructions [...] care physician for further outpatient evaluation and management.[facility] Work Phone: Hospital Discharge instructions [...] handout/resources provided) for further outpatient evaluation and management.[facility] Work Phone: Hospital Discharge instructions [...] please return to the ER for repeat evaluation.[facility] Work Phone: Hospital Discharge instructions Additional Instructions heart rate 154 on bedside ultrasound. Your abdominal labs were normal. Your urine results were pending however you needed to leave before results. No urinary symptoms. Keep your follow-up with your OB team.[facility] Work Phone: Hospital Discharge instructionsAdditional Instructions Follow up with your family doctor and DIRECTOR OF RESTAURANT. You may take umxo-btq-hjuajxb decongestant such as Tylenol Cold and flu or Mucinex DM. You been given a prescription for Mucinex DM. You may also use Flonase which is available tpgc-jlj-vtsmryg. Use as directed do not use for more than 3 days because of the increased risk of rebound congestion. If you have worsening symptoms, fever or difficulty breathing please return to the emergency room.[facility] Work Phone: Hospital Discharge instructionsAdditional Instructions Partial weightbearing on your left ankle. Wear your Aircast. You may remove it for bathing or sleeping. Use your crutches for stability and ambulating. Tylenol as needed for pain. Do not take any NSAIDs. Elevate your left lower extremity when possible.[facility] Work Phone: Reason for referral (narrative)* Diagnostic Procedure Only (Routine) - Authorized Specialty Diagnoses / Procedures Referred By Nina salazar Referred To Contact [facility] Diagnoses 6 weeks gestation of Procedures NUCHAL TRANSLUCENCY WHI US NUCHAL TRANSLUCENCY 1ST GESTATION Sharda Valero APRN.CNP [address] [place] [address] [id number] [place] [address] Referral ID Status Reason Start Date Expiration Date Visits Requested Visits Authorized [id number] Authorized Auto-Generat ed Referral 11/13/2023 11/12/2024 1 1 [facility] for referral (narrative)* Diagnostic Procedure Only (Routine) - New Request Specialty Diagnoses / Procedures Referred By Nina salazar Referred To Contact [facility] Diagnoses History of IUFD Procedures OBSTETRIC ULTRASOUND WHI US PREG UTERUS AFTER 1ST TRIMEST GESTATION Jeanette Patel MD [address] [place] [address] [facility] [address] [place] [address] Referral ID Status Reason Start Date Expiration Date Visits Requested Visits Authorized [id number] New Request Auto-Generat ed Referral 02/17/2024 02/16/2025 2 1 [facility] for referral (narrative)* Diagnostic Procedure Only (Routine) - New Request Specialty Diagnoses / Procedures Referred By Nina salazar Referred To Contact [facility] Diagnoses Supervision of other high risk pregnancies, third trimester Polyhydramnios in third trimester complication, single or unspecified fetus History of IUFD Procedures OBSTETRIC ULTRASOUND WHI US PREG UTERUS AFTER 1ST TRIMEST GESTATION Jt Lugo MD [address] [place] [address] [id number] [place] [address] Referral ID Status Reason Start Date Expiration Date Visits Requested Visits Authorized [id number] New Request Auto-Generat ed Referral 04/14/2025 3 1 [facility] for referral (narrative)* Outpatient Procedure (Routine) - New Request Specialty Diagnoses / Procedures Referred By Contac t Referred To Contact [facility] Diagnoses History of IUFD Procedures NON-STRESS TEST NON-STRESS TEST Margarita Alcala MD [address] [place] [address] [address] Referral ID Status Reason Start Date Expiration Date Visits Requested Visits Authorized [id number] New Request Auto-Generat ed Referral 04/28/2024 04/28/2025 1 1 [facility] for referral (narrative)* Outpatient Procedure (Routine) - Authorized Specialty Diagnoses / Procedures Referred By Contac t Referred To Contact [facility] Diagnoses Encounter for other general counseling or advice on contraception Procedures INSERT INTRAUTERINE DEVICE LEVONORGESTREL IU 52MG 5 YR INSERT INTRAUTERINE DEVICE Sharda Valero APRN.CNP [address] [place] [address] [address] Referral ID Status Reason Start Date Expiration Date Visits Requested Visits Authorized [id number] Authorized Auto-Generat ed Referral 07/29/2024 07/29/2025 1 1 [facility] for referral (narrative)No reason for referral information availableWOhioHealth [facility] Medical Center Work Phone: Chief Complaint and Reason for [...] No September 13, 2021 11:23am Power of Whipper No September 13 11:23am Advance Directive Response Recorded Date/ Time Advance Directives No June 30, 2016 6:49pm Living Will No December 22, 2021 9 :23pm Power of Whipper No December 22, 2021 9:23pm Advance Directive Response Recorded Date/ Time Advance Directives No June 30, 2016 6:49pm Living Will No February 20 5:12pm Power of Whipper No February 20 2 022 5:12pm Advance Directive Response Recorded Date/ Time Advance Directives No June 30, 2016 5:49pm Living Will No February 20 4:12pm Power of Whipper No February 20 2 022 4:12pm Advance Directive Response Recorded Date/ Time Advance Directives No June 30, 2016 6:49pm Living Will No January 08, 2023 3:14pm Power of Whipper No January 08 3:14pm Advance Directive Response Recorded Date/ Time Advance Directives No June 30, 2016 6:49pm Living Will No February 24, 2 023 4:26pm Power of Whipper No February 24, 2023 4:26pm Advance Directive Response Recorded Date/ Time Advance Directives No June 30, 2016 5:49pm Living Will No February 24, 2 023 3:26pm Power of Whipper No February 24, 2023 3:26pm Advance Directive Response Recorded Date/ Time Advance Directives No June 30, 2016 5:49pm Living Will No May 11, 2 023 5:41pm Power of Whipper No May 11, 2023 5:41pm Advance Directive Response Recorded Date/ Time Advance Directives No June 30, 2016 5:49pm Living Will No June 10, 2 023 12:08pm Power of Whipper No June 10, 2023 12:08pm Advance Directive Response Recorded Date/ Time Advance Directives No June 30, 2016 5:49pm Living Will No July 17 4:36pm Power of Whipper No July 17, 2023 4:36pm Advance Directive Response Recorded Date/ Time Advance Directives No June 30, 2016 5:49pm Living Will No August 10 024 10:41am Power of Whipper No August 10, 2023 10:41am Advance Directive Response Recorded Date/ Time Living Will No October 02, 2024 10:46pm Do you have a Healthcare Power of Whipper? No October 02, 2024 10:46pm Living Will No June 17, 2 024 4:41pm Do you have a Healthcare Power of Whipper? No June 17, 2024 4:41pm Advance Directives No June 30, 2016 6:49pm Advance Directive Response Recorded Date/ Time Living Will No October 02, 2024 10:46pm Do you have a Healthcare Power of Whipper? No October 02, 2024 10:46pm Living Will No June 17 4:41pm Do you have a Healthcare Power of Whipper? No June 17, 2024 4:41pm Living Will No October 11, 2024 11:41pm Do you have a Healthcare Power of Whipper? No October 11, 2024 11:41pm Advance Directives No June 30, 2016 6:49pm Advance Directive Response Recorded Date/ Time Living Will No October 02, 2024 10:46pm Do you have a Healthcare Power of Whipper? No October 02, 2024 10:46pm Living Will No October 11, 2024 11:41pm Do you have a Healthcare Power of Whipper? No October 11, 2024 11:41pm Advance Directives No June 30, 2016 6:49pm Advance Directive Response Recorded Date/ Time Living Will No October 02, 2024 10:46pm Do you have a Healthcare Power of Whipper? No October 02, 2024 10:46pm Living Will No October 11, 2024 11:41pm Do you have a Healthcare Power of Whipper? No October 11, 2024 11:41pm Do you have a Healthcare Power of Whipper? No December 11, 2024 2:19pm Advance Directives No June 30, 2016 6:49pm Advance Directive Response Recorded Date/ Time Advance Directives No January 28 025 10:32am Living Will No October 02, 2024 10:46pm Do you have a Healthcare Power of Whipper? No October 02, 2024 10:46pm Living Will No October 11, 2024 11:41pm Do you have a Healthcare Power of Whipper? No October 11, 2024 11:41pm Do you have a Healthcare Power of Whipper? No December 11, 2024 2:19pm Advance Directive Response Recorded Date/ Time Advance Directives No January 28 025 10:32am Living Will No October 11, 2024 11:41pm Do you have a Healthcare Power of Whipper? No October 11, 2024 11:41pm Do you have a Healthcare Power of Whipper? No December 11, 2024 2:19pm Advance Directive Response Recorded Date/ Time Advance Directives No January 28 10:32am Do you have a Healthcare Power of Whipper? No December 11, 2024 2:19pm Advance Directive Response Recorded Date/ Time Advance Directives No January 28 10:32am Do you have a Healthcare Power of Whipper? No March 10, 2025 12:47pm Do you have a Healthcare Power of Whipper? No December 11, 2024 2:19pm Advance Directive Response Recorded Date/ Time Advance Directives No January 28 9:32am Do you have a Healthcare Power of Whipper? No March 10, 2025 11:47am Do you have a Healthcare Power of Whipper? No April 09, 2025 4:15pm Health Concerns Infection Onset Date Last Indicated Resolved Time COVID-19 Rule-Out 06/07/2022 06/07/2022 Reason for Referral Specialty Diagnoses / Procedures Referred By Contac t Referred To Contact Diagnoses History of IUFD Procedures CONSULT TO MATERNAL MEDI OFFICE/OUTPATIENT [facility] 60 MINUTES Jeanette Patel MD [address] [place] [address] Referral ID Status Reason Start Date Expiration Date Visits Requested Visits Authorized [id number] Authorized PCP Requested Referral Auto-Generate d Referral 01/01/2024 12/31/2024 1 1 Specialty Diagnoses / Procedures Referred By Nina salazar Referred To Contact [facility] Diagnoses Encounter for supervision of other normal in second trimester History of IUFD Procedures OBSTETRIC ULTRASOUND WHI US PREG UTERUS AFTER 1ST TRIMEST GESTATION Jeanette Patel MD [address] [place] [address] [facility] [address] [place] [address] [place] [address] Referral ID Status Reason Start Date Expiration Date Visits Requested Visits Authorized [id number] Authorized Auto-Generat ed Referral 01/01/2024 12/31/2024 1 [...] or prosecute any alcohol or drug abuse patient.[facility] CampusIn the event this information is protected by the Federal Confidentiality of Alcohol and Drug Abuse Patient Records regulations: The Federal rules restrict any use of the information to criminally investigate or prosecute any alcohol or drug abuse patient.[facility] CampusIn the event this information is protected by the Federal Confidentiality of Alcohol and Drug Abuse Patient Records regulations: The Federal rules restrict any use of the information to criminally investigate or prosecute any alcohol or drug abuse patient.[facility] CampusIn the event this information is protected by the Federal Confidentiality of Alcohol and Drug Abuse Patient Records regulations: The Federal rules restrict any use of the information to criminally investigate or prosecute any alcohol or drug abuse patient.[facility] CampusIn the event this information is protected by the Federal Confidentiality of Alcohol and Drug Abuse Patient Records regulations: The Federal rules restrict any use of the information to criminally investigate or prosecute any alcohol or drug abuse patient.[facility] CampusIn the event this information is protected by the Federal Confidentiality of Alcohol and Drug Abuse Patient Records regulations: The Federal rules restrict any use of the information to criminally investigate or prosecute any alcohol or drug abuse patient.[facility] ClinicIn the event this information is protected by the Federal Confidentiality of Alcohol and Drug Abuse Patient Records regulations: The Federal rules restrict any use of the information to criminally investigate or prosecute any alcohol or drug abuse patient.[facility] CampusIn the event this information is protected by the Federal Confidentiality of Alcohol and Drug Abuse Patient Records regulations: The Federal rules restrict any use of the information to criminally investigate or prosecute any alcohol or drug abuse patient.[facility] [place] CampusIn the event this information is protected by the Federal Confidentiality of Alcohol and Drug Abuse Patient Records regulations: The Federal rules restrict any use of the information to criminally investigate or prosecute any alcohol or drug abuse patient.[facility] [place] CampusIn the event this information is protected by the Federal Confidentiality of Alcohol and Drug Abuse Patient Records regulations: The Federal rules restrict any use of the information to criminally investigate or prosecute any alcohol or drug abuse patient.[facility] [place] CampusIn the event this information is protected by the Federal Confidentiality of Alcohol and Drug Abuse Patient Records regulations: The Federal rules restrict any use of the information to criminally investigate or prosecute any alcohol or drug abuse patient.[facility] [place] CampusIn the event this information is protected by the Federal Confidentiality of Alcohol and Drug Abuse Patient Records regulations: The Federal rules restrict any use of the information to criminally investigate or prosecute any alcohol or drug abuse patient.[facility] [place] CampusIn the event this information is protected by the Federal Confidentiality of Alcohol and Drug Abuse Patient Records regulations: The Federal rules restrict any use of the information to criminally investigate or prosecute any alcohol or drug abuse patient.[facility] [place] CampusIn the event this information is protected by the Federal Confidentiality of Alcohol and Drug Abuse Patient Records regulations: The Federal rules restrict any use of the information to criminally investigate or prosecute any alcohol or drug abuse patient.[facility] [place] CampusIn the event this information is protected by the Federal Confidentiality of Alcohol and Drug Abuse Patient Records regulations: The Federal rules restrict any use of the information to criminally investigate or prosecute any alcohol or drug abuse patient.[facility] [place] CampusIn the event this information is protected by the Federal Confidentiality of Alcohol and Drug Abuse Patient Records regulations: The Federal rules restrict any use of the information to criminally investigate or prosecute any alcohol or drug abuse patient.[facility] [place] CampusIn the event this information is protected by the Federal Confidentiality of Alcohol and Drug Abuse Patient Records regulations: The Federal rules restrict any use of the information to criminally investigate or prosecute any alcohol or drug abuse patient.[facility] [place] CampusIn the event this information is protected by the Federal Confidentiality of Alcohol and Drug Abuse Patient Records regulations: The Federal rules restrict any use of the information to criminally investigate or prosecute any alcohol or drug abuse patient.[facility] [place] CampusIn the event this information is protected by the Federal Confidentiality of Alcohol and Drug Abuse Patient Records regulations: The Federal rules restrict any use of the information to criminally investigate or prosecute any alcohol or drug abuse patient.[facility] [place] CampusIn the event this information is protected by the Federal Confidentiality of Alcohol and Drug Abuse Patient Records regulations: The Federal rules restrict any use of the information to criminally investigate or prosecute any alcohol or drug abuse patient.[facility] [place] CampusIn the event this information is protected by the Federal Confidentiality of Alcohol and Drug Abuse Patient Records regulations: The Federal rules restrict any use of the information to criminally investigate or prosecute any alcohol or drug abuse patient.[facility] [place] CampusIn the event this information is protected by the Federal Confidentiality of Alcohol and Drug Abuse Patient Records regulations: The Federal rules restrict any use of the information to criminally investigate or prosecute any alcohol or drug abuse patient.[facility] [place] CampusIn the event this information is protected by the Federal Confidentiality of Alcohol and Drug Abuse Patient Records regulations: The Federal rules restrict any use of the information to criminally investigate or prosecute any alcohol or drug abuse patient.[facility] [place] CampusIn the event this information is protected by the Federal Confidentiality of Alcohol and Drug Abuse Patient Records regulations: The Federal rules restrict any use of the information to criminally investigate or prosecute any alcohol or drug abuse patient.[facility] [place] CampusIn the event this information is protected by the Federal Confidentiality of Alcohol and Drug Abuse Patient Records regulations: The Federal rules restrict any use of the information to criminally investigate or prosecute any alcohol or drug abuse patient.[facility] [place] CampusIn the event this information is protected by the Federal Confidentiality of Alcohol and Drug Abuse Patient Records regulations: The Federal rules restrict any use of the information to criminally investigate or prosecute any alcohol or drug abuse patient.[facility] [place] CampusIn the event this information is protected by the Federal Confidentiality of Alcohol and Drug Abuse Patient Records regulations: The Federal rules restrict any use of the information to criminally investigate or prosecute any alcohol or drug abuse patient.[facility] [place] CampusIn the event this information is protected by the Federal Confidentiality of Alcohol and Drug Abuse Patient Records regulations: The Federal rules restrict any use of the information to criminally investigate or prosecute any alcohol or drug abuse patient.[facility] [place] CampusIn the event this information is protected by the Federal Confidentiality of Alcohol and Drug Abuse Patient Records regulations: The Federal rules restrict any use of the information to criminally investigate or prosecute any alcohol or drug abuse patient.[facility] [place] CampusIn the event this information is protected by the Federal Confidentiality of Alcohol and Drug Abuse Patient Records regulations: The Federal rules restrict any use of the information to criminally investigate or prosecute any alcohol or drug abuse patient.[facility] [place] CampusIn the event this information is protected by the Federal Confidentiality of Alcohol and Drug Abuse Patient Records regulations: The Federal rules restrict any use of the information to criminally investigate or prosecute any alcohol or drug abuse patient.[facility] [place] CampusIn the event this information is protected by the Federal Confidentiality of Alcohol and Drug Abuse Patient Records regulations: The Federal rules restrict any use of the information to criminally investigate or prosecute any alcohol or drug abuse patient.[facility] [place] CampusIn the event this information is protected by the Federal Confidentiality of Alcohol and Drug Abuse Patient Records regulations: The Federal rules restrict any use of the information to criminally investigate or prosecute any alcohol or drug abuse patient.[facility] [place] CampusIn the event this information is protected by the Federal Confidentiality of Alcohol and Drug Abuse Patient Records regulations: The Federal rules restrict any use of the information to criminally investigate or prosecute any alcohol or drug abuse patient.[facility] [place] CampusIn the event this information is protected by the Federal Confidentiality of Alcohol and Drug Abuse Patient Records regulations: The Federal rules restrict any use of the information to criminally investigate or prosecute any alcohol or drug abuse patient.[facility] [place] CampusIn the event this information is protected by the Federal Confidentiality of Alcohol and Drug Abuse Patient Records regulations: The Federal rules restrict any use of the information to criminally investigate or prosecute any alcohol or drug abuse patient.[facility] [place] CampusIn the event this information is protected by the Federal Confidentiality of Alcohol and Drug Abuse Patient Records regulations: The Federal rules restrict any use of the information to criminally investigate or prosecute any alcohol or drug abuse patient.[facility] [place] CampusIn the event this information is protected by the Federal Confidentiality of Alcohol and Drug Abuse Patient Records regulations: The Federal rules restrict any use of the information to criminally investigate or prosecute any alcohol or drug abuse patient.[facility] [place] CampusIn the event this information is protected by the Federal Confidentiality of Alcohol and Drug Abuse Patient Records regulations: The Federal rules restrict any use of the information to criminally investigate or prosecute any alcohol or drug abuse patient.[facility] [place] CampusIn the event this information is protected by the Federal Confidentiality of Alcohol and Drug Abuse Patient Records regulations: The Federal rules restrict any use of the information to criminally investigate or prosecute any alcohol or drug abuse patient.[facility] [place] CampusIn the event this information is protected by the Federal Confidentiality of Alcohol and Drug Abuse Patient Records regulations: The Federal rules restrict any use of the information to criminally investigate or prosecute any alcohol or drug abuse patient.[facility] [place] CampusIn the event this information is protected by the Federal Confidentiality of Alcohol and Drug Abuse Patient Records regulations: The Federal rules restrict any use of the information to criminally investigate or prosecute any alcohol or drug abuse patient.[facility] [place] CampusIn the event this information is protected by the Federal Confidentiality of Alcohol and Drug Abuse Patient Records regulations: The Federal rules restrict any use of the information to criminally investigate or prosecute any alcohol or drug abuse patient.[facility] [place] CampusIn the event this information is protected by the Federal Confidentiality of Alcohol and Drug Abuse Patient Records regulations: The Federal rules restrict any use of the information to criminally investigate or prosecute any alcohol or drug abuse patient.[facility] [place] CampusIn the event this information is protected by the Federal Confidentiality of Alcohol and Drug Abuse Patient Records regulations: The Federal rules restrict any use of the information to criminally investigate or prosecute any alcohol or drug abuse patient.[facility] [place] CampusIn the event this information is protected by the Federal Confidentiality of Alcohol and Drug Abuse Patient Records regulations: The Federal rules restrict any use of the information to criminally investigate or prosecute any alcohol or drug abuse patient.[facility] [place] CampusIn the event this information is protected by the Federal Confidentiality of Alcohol and Drug Abuse Patient Records regulations: The Federal rules restrict any use of the information to criminally investigate or prosecute any alcohol or drug abuse patient.[facility] [place] CampusIn the event this information is protected by the Federal Confidentiality of Alcohol and Drug Abuse Patient Records regulations: The Federal rules restrict any use of the information to criminally investigate or prosecute any alcohol or drug abuse patient.[facility] [place] CampusIn the event this information is protected by the Federal Confidentiality of Alcohol and Drug Abuse Patient Records regulations: The Federal rules restrict any use of the information to criminally investigate or prosecute any alcohol or drug abuse patient.[facility] [place] CampusIn the event this information is protected by the Federal Confidentiality of Alcohol and Drug Abuse Patient Records regulations: The Federal rules restrict any use of the information to criminally investigate or prosecute any alcohol or drug abuse patient.[facility] [place] CampusIn the event this information is protected by the Federal Confidentiality of Alcohol and Drug Abuse Patient Records regulations: The Federal rules restrict any use of the information to criminally investigate or prosecute any alcohol or drug abuse patient.[facility] [place] CampusIn the event this information is protected by the Federal Confidentiality of Alcohol and Drug Abuse Patient Records regulations: The Federal rules restrict any use of the information to criminally investigate or prosecute any alcohol or drug abuse patient.[facility] Reason for Visit (unrecogniz ed section and content) Reason Comments Ear Pain Bilateral ear pain a nd HERNADEZ-exposed to flu Reason Comments Initial OB Visit Reason Comments PRAF Reason Comments OB N/V Reason Onset Date Comments Care 01/01/2024 Reason Comments US Specialty Diagnoses / Procedures Referred By Nina t Referred To Contact [facility] Diagnoses 6 weeks gestation of Procedures NUCHAL TRANSLUCENCY WHI US NUCHAL TRANSLUCENCY 1ST GESTATION Sharda Valero APRN.KAITLYNN [address] [place] [address] [facility] [address] [place] [address] Referral ID Status Reason Start Date Expiration Date V isits Requested Visits Authorized [id number] Closed Auto-Generate d Referral 11/13/2023 11/12/2024 1 1 Reason Comments Consult Ordered by Dr. Patel Specialty Diagnoses / Procedures Referred By Nina t Referred To Contact [facility] Diagnoses Encounter for supervision of other normal in second trimester History of IUFD Procedures OBSTETRIC ULTRASOUND WHI US PREG UTERUS AFTER 1ST TRIMEST GESTATION Jeanette Patel MD [address] [place] [address] [facility] [address] [place] [address] Referral ID Status Reason Start Date Expiration Date V isits Requested Visits Authorized [id number] Closed Auto-Generate d Referral 01/01/2024 12/31/2024 1 1 Reason Onset Date Comments Care 02/17/2024 Reason Onset Date Comments Care 03/17/2024 Pt reported inte rmittent bilateral swelling feet. Specialty Diagnoses / Procedures Referred By Nina salazar Referred To Contact [facility] Diagnoses History of IUFD Procedures OBSTETRIC ULTRASOUND WHI US PREG UTERUS AFTER 1ST TRIMEST GESTATION Jeanette Patel MD [address] [place] [address] [facility] [address] [place] [address] Referral ID Status Reason Start Date Expiration Date V isits Requested Visits Authorized [id number] Closed Auto-Generate d Referral 02/17/2024 02/16/2025 2 1 Reason Onset Date Comments Care 04/02/2024 Reason Onset Date Comments Care 04/14/2024 Reason Comments Opened In Error Reason Onset Date Comments Care 12/01/2023 Reason Comments OB Pain Reason Onset Date Comments Care 04/28/2024 Specialty Diagnoses / Procedures Referred By Nina t Referred To Contact [facility] Diagnoses Supervision of other high risk pregnancies, third trimester Polyhydramnios in third trimester complication, single or unspecified fetus History of IUFD Procedures OBSTETRIC ULTRASOUND WHI US PREG UTERUS AFTER 1ST TRIMEST GESTATION Jt Lugo MD [address] [place] [address] [facility] [address] [place] [address] Referral ID Status Reason Start Date Expiration Date Visits Requested Visits Authorized [id number] Authorized Auto-Generat ed Referral 4 06/22/2024 3 [...] Referred By Contac t Referred To Contact [facility] Diagnoses Encounter for other general counseling or advice on contraception Procedures INSERT INTRAUTERINE DEVICE LEVONORGESTREL IU 52MG 5 YR INSERT INTRAUTERINE DEVICE Sharda Valero APRN.CAMPAIGN MANAGEMENT SPECIALIST [address] [place] [address] Phone: tel: fax: [address] [address] Referral ID Status Reason Start Date Expiration Date V isits Requested Visits Authorized [id number] Closed Auto-Generate d Referral 07/29/2024 07/29/2025 1 1 Reason Onset Date Comments Results 08/06/2024 Reason Comments Mat Maker - Other Initial OB CHANA saravia Reason Comments Headache Reason Onset Date Comments Care 12/31/2024 Reason Onset Date Comments Care 01/12/2025 Specialty Diagnoses / Procedures Referred By Nina t Referred To Contact [facility] Diagnoses with uncertain dates, antepartum (HCC) 13 weeks gestation of (HCC) Procedures OBSTETRIC ULTRASOUND WHI US PREG UTERUS AFTER 1ST TRIMEST GESTATION Johana Turner APRN.CN [address] [place] [address] Phone: tel: fax: [facility] [address] [place] [address] Referral ID Status Reason Start Date Expiration Date V isits Requested Visits Authorized [id number] Closed Auto-Generate d Referral 11/18/2024 11/18/2025 1 [...] Status: Inactive Member Role Status Dates Dr. aDvid Mckinney MD Primary Care Provider, Attending jenaro Active Team Status: Inactive Member Role Status [...] David Felix DO Attending Provider, Emergency P jenaro Active Team Status: Inactive Member Role Status [...] 21, 2024 End: October 21, 2024 Dr. Rizawn Cárdenas DO Attending Provider Active Start: October [...] January 28, 2025 Kale BISHOP, PA Attending Provider Active Sta rt: January [...] Inactive Member Role/Relationship Status Dates Dr. David Mckinnye MD Primary Care Provider Active Start: December [...] 10, 2025 Dr. Mindy Jorge DO Emergency Depart ent Physician Active Start: March 10, 2025 [...] ized section and content) DATE CREATED AUTHOR 05/03/[address] [facility] DATE CREATED AUTHOR AUTHOR'S JONI PAULINO 05/05/2025 [facility] FOR [...] BE BASED ON THE PRIMARY CLINICAL RECORDS. [facility] [employer] [facility]. provides no warranty or guarantee of the accuracy or completeness of information in this document.
[2025-05-12] MEDS: Lactated Ringers 1,000 ML 50 ML IV (07:50)
[2025-05-12 08:10] LABS: Hematocrit 29.2 % (37-47); Hemoglobin 9.5 g/dL (12.0-15.0); Immature Granulocytes Count 0.220 X10^3/uL (0.0-0.0); Mean Corp Hgb Conc 32.5 g/dL (32-36); Mean Corpuscular Volume 76.6 fL (81-99); Mean Platelet Vol. 11.9 fl (6.2-12.0); NRBC Flagged by Analyzer 0 % (0-5); Platelet Count 179 K/mm3 (150-450); RBC Distribution Width CV 15.9 % (11.6-14.6); RBC Distribution Width SD 44.0 fl (35.1-43.9); Red Blood Count 3.81 M/mm3 (4.2-5.4); White Blood Count 13.6 K/mm3 (4.4-11.0)
[2025-05-12] MEDS: Oxytocin 15 Units/NS 250ml 15 UNITS/250 ML IV.SOLN 2 UNITS IV (08:19)
[2025-05-12 08:35] LABS: Syphilis Antibodies Nonreactive (Nonreactive)
[2025-05-12] MEDS: Penicillin G Pot 5,000,000 UNITS in 0.9% Normal Saline (100mL MB+) 100 ML 150 UNITS IV (09:13)
--- NOTE | 2025-05-12 10:13 | PCM.PN.BLA ---
Progress Note pt seen at bedside, VE: /-2 AROM performed- Clear. continue pitocin. planning epidural.
[2025-05-12 10:16] LABS: Barbiturate Urine NEGATIVE (< 200 ng/mL); Benzodiazepine Urine NEGATIVE (< 200 ng/mL); PCP Urine NEGATIVE (< 25 ng/mL); THC Urine NEGATIVE (< 50 ng/mL)
--- NOTE | 2025-05-12 10:17 | PCM.HP.OB ---
HPI - General General Date of Admission: 05/12/25 Date of Service: 05/12/25 Chief Complaint: induction of labor HPI Narrative SHILPA HOANG, is a 29 F who presents at 37+ gestational weeks for induction of labor due to chronic hypertension. complicated 8 by anxiety maternal iron deficient anemia in the third trimester. Nicotine use disorder, history of drug use but not during current . She is also known GBS carrier this . Maternal Data Information Final JANE: 05/24/25 Gestational age: 37 2/7 [facility] Medical History (Updated 05/12/25 @ 10:[address] Martha Kelly MD) Asthma Chronic hypertension Depression Family history of hearing loss at age younger than 7 years Gestational HTN Stillborn, normal History of placental abruption Trauma depression Anxiety Cervical myofascial strain (spontaneous vaginal delivery) Home Medications ?Medication ?Instructions ?Recorded ?Last Taken ?Type [id number] 1 mg 1 tab PO DAILY 09/13/21 05/01/25 History tablet acetaminophen 500 mg tablet 1,000 mg PO TID PRN PRN pain 05/02/25 05/01/25 History albuterol sulfate 90 mcg/actuation 1 inh inhalation Q6H PRN shortness 05/02/25 Unknown History aerosol inhaler of breath or wheezing epinephrine 0.3 mg/0.3 mL 0.3 mg (0.3 mL) IM Q10M PRN PRN 05/02/25 Unknown Rx injection, auto-injector (EpiPen anaphylaxis #2 ea 2-Hero) fluticasone propionate 50 1 spray intranasal BID sinus 05/02/25 Unknown History mcg/actuation nasal infection spray,suspension ondansetron 4 mg disintegrating 4 mg PO TID PRN PRN nausea/vomiting 05/02/25 05/01/25 History tablet Allergy/AdvReac Type Severity Reaction Status Date / Time walnut (walnuts) Allergy Severe Swelling Verified 05/12/25 07:43 corn AdvReac Other Verified 05/12/25 07:43 Social History number of children: 2 Smoking Status: Former smoker alcohol intake: former 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 Date Name GA/Weeks Outcome Route Bth Weight Gen Labor Lgth Anesthesia Del Locatn Provider FOB 02/09/17 Piper 41 live - full term [id number] Female 18 epidural [facility] Trey Alejandre 11/13/18 Radha 39 live - full term [id number] Female 13 epidural [facility] Fanny KOWALSKI Constitutional Constitutional: Denies fatigue, fever(s) or malaise Eyes Eyes: Denies change in vision ENT HEENT: Denies dizziness or headache(s) Cardiovascular Cardiovascular: Denies chest pain, dyspnea or lightheadedness Respiratory/Chest Respiratory/Chest: Denies cough or dyspnea Gastrointestinal Gastrointestinal: Denies change in bowel habits Genitourinary Genitourinary: Denies burning urination or genital lesions Integumentary Integumentary: Denies rash Neurologic Neurologic: Denies confusion, dizziness, headache(s), numbness or weakness Vital Signs Vital Signs Vital Signs: 05/12/25 08:10 05/12/25 08:10 05/12/25 08:10 Temperature Temperature Source Temporal Pulse Rate 85 Respiratory Rate Blood Pressure 137/86 H BP Systolic 137 BP Diastolic 86 Pulse Ox 05/12/25 08:10 05/12/25 08:10 05/12/25 08:10 Temperature 98.6 F Temperature Source Pulse Rate Respiratory Rate 16 Blood Pressure BP Systolic BP Diastolic Pulse Ox 98 05/12/25 09:07 05/12/25 09:07 05/12/25 09:07 Temperature Temperature Source Pulse Rate 87 Respiratory Rate Blood Pressure 129/94 H 118/80 BP Systolic 129 118 BP Diastolic 94 80 Pulse Ox 05/12/25 09:07 05/12/25 09:07 05/12/25 09:07 Temperature Temperature Source Temporal Pulse Rate 77 Respiratory Rate 16 Blood Pressure BP Systolic BP Diastolic Pulse Ox 05/12/25 09:07 05/12/25 09:07 05/12/25 09:08 Temperature 97.4 F L Temperature Source Pulse Rate 77 Respiratory Rate Blood Pressure BP Systolic BP Diastolic Pulse Ox 98 05/12/25 09:08 Temperature Temperature Source Pulse Rate Respiratory Rate Blood Pressure BP Systolic BP Diastolic Pulse Ox 100 Weight Weight: 81.6 kg Body Mass Index (BMI) 29.9 PRE- weight 73 kg PRE- Body Mass Index 26.7 (BMI) Physical Exam Const alert and no apparent distress General Appearance: cooperative HEENT normocephalic Resp normal respiratory effort Cardio regular rate GI soft to palpation GI Narrative: gravid, nontender, appropriate for gestational age Extremity no calf tenderness General Extremity: edema Skin no wounds Rashes: No rashes noted Psych activity/motor behavior normal Labs Labs Labs: Blood Type A POSITIVE Antibody Screen NEGATIVE Hct, (37-47) 29.2 % L Hgb, (12.0-15.0) 9.5 g/dL L Obstetrics Ultrasound Syphilis Total Ab, (Nonreactive) Nonreactive Rubella IgG Antibody, (Nonreactive) Reactive Hep Bs Antigen, (Nonreactive) Non-Reactive Hepatitis C Antibody, (Nonreactive) Non-Reactive Hepatitis C Ab (EIA), (0.0-0.9) <0.1 s/co ratio Chlamydia DNA (OFELIA), (Negative) Negative N.gonorrhoeae DNA (OFELIA), (Negative) Negative HIV 1&2 Antibody, (Nonreactive) Non-Reactive Glucose 1 Hr 50 gm, (70-140) 129 mg/dL Gest Glucose Tolerance MG/DL Group B Strep DNA, (Negative) Negative Rhogam given: No Assessment & Plan (1) High-risk , elderly multigravida in third trimester: PLAN: Risk-benefit alternatives to induction of labor discussed with patient and her questions were answered to her satisfaction she desires to proceed. Will proceed with artificial rupture membranes and Pitocin induction of labor. May have routine pain control measures as needed during labor. Estimated weight is less than 4500 g and pelvis clinically adequate to expect vaginal delivery. Monitor blood pressures closely. No evidence of preeclampsia at this time. (2) Chronic hypertension in obstetric context in third trimester: (3) 37 weeks gestation of :
[2025-05-12] MEDS: fentaNYL-bupivacaine (epidural) 100 ML BAG EPIDURAL (10:57)
[2025-05-12] MEDS: Lactated Ringers 1,000 ML 999 ML IV (11:06)
[2025-05-12] MEDS: Penicillin G 3,000,000 Units 50 ML 100 UNITS IV (13:45)
--- NOTE | 2025-05-12 14:46 | OB.VAGDELI_ITS ---
Maternal Data Information JANE Calculator Estimated Delivery Date Method Current WG Current Estimate 05/31/25 Manual 37w 2d Vaginal Delivery Maternal Presentation Maternal Presentation: Medically Indicated Induction Type of Induction: Pitocin and Amniotomy Vaginal Delivery Information Procedure Performed: Spontaneous Vaginal Delivery Surgeon/Practitioner: Kishor Veliz Date of Procedure: 05/12/25 Pre-Procedure Diagnosis: Chronic hypertension Post-Procedure Diagnosis: Same Type of anesthesia: Epidural Estimated Blood Loss: 100ml Findings Description of procedure: Called to room when patient C/C/+2. She was prepped & draped. Patient pushed well to deliver the head. head was gently guided to allow delivery of anterior and posterior shoulders. No excess traction placed on the head. The body delivered. 3VC clamped and cut in delayed fashion. Placenta delivered with gentle traction and good uterine tone obtained. Presentation: ROHIT Amniotic Membrane Rupture Type: Artificial Amniotic Fluid Description: Clear Placental Delivery Description: Expressed Placenta Disposition: [facility] Cord Vessel Description: 3 Vessels Cord Entanglement: None Infant A Gender: Female (1 minute): 9 (5 minute): 9 Delayed Cord Clamping: Yes [employer] Chief set making machine operator: No Post Vaginal Deli Medications given after delivery: IV Pitocin Episiotomy Description: None Laceration: None Complication Complications: No
[2025-05-12] MEDS: Oxytocin 15 Units/NS 250ml 15 UNITS/250 ML IV.SOLN 83 UNITS IV (15:07)
--- NOTE | 2025-05-12 16:16 | PCM.NUR.HP ---
Subjective Subjective: Objective Objective Data: 05/12/25 08:10 05/12/25 08:10 05/12/25 08:10 Temperature Temperature Source Temporal Pulse Rate 85 Respiratory Rate Blood Pressure 137/86 H BP Systolic 137 BP Diastolic 86 Pulse Ox 05/12/25 08:10 05/12/25 08:10 05/12/25 08:10 Temperature 98.6 F Temperature Source Pulse Rate Respiratory Rate 16 Blood Pressure BP Systolic BP Diastolic Pulse Ox 98 05/12/25 09:07 05/12/25 09:07 05/12/25 09:07 Temperature Temperature Source Pulse Rate 87 Respiratory Rate Blood Pressure 129/94 H 118/80 BP Systolic 129 118 BP Diastolic 94 80 Pulse Ox 05/12/25 09:07 05/12/25 09:07 05/12/25 09:07 Temperature Temperature Source Temporal Pulse Rate 77 Respiratory Rate 16 Blood Pressure BP Systolic BP Diastolic Pulse Ox 05/12/25 09:07 05/12/25 09:07 05/12/25 09:08 Temperature 97.4 F L Temperature Source Pulse Rate 77 Respiratory Rate Blood Pressure BP Systolic BP Diastolic Pulse Ox 98 05/12/25 09:08 05/12/25 10:48 05/12/25 10:48 Temperature Temperature Source Pulse Rate 87 Respiratory Rate Blood Pressure 140/92 H BP Systolic 140 BP Diastolic 92 Pulse Ox 100 05/12/25 10:48 05/12/25 10:48 05/12/25 10:48 Temperature Temperature Source Pulse Rate Respiratory Rate 16 Blood Pressure BP Systolic BP Diastolic Pulse Ox 100 98 05/12/25 10:53 05/12/25 10:53 05/12/25 10:53 Temperature Temperature Source Pulse Rate 81 Respiratory Rate Blood Pressure 137/90 H BP Systolic 137 BP Diastolic 90 Pulse Ox 97 05/12/25 10:53 05/12/25 10:53 05/12/25 10:57 Temperature Temperature Source Pulse Rate Respiratory Rate 16 Blood Pressure 137/91 H BP Systolic 137 BP Diastolic 91 Pulse Ox 98 05/12/25 10:57 05/12/25 10:57 05/12/25 10:57 Temperature Temperature Source Pulse Rate 77 Respiratory Rate 16 Blood Pressure BP Systolic BP Diastolic Pulse Ox 98 05/12/25 11:01 05/12/25 11:01 05/12/25 11:01 Temperature Temperature Source Pulse Rate 75 Respiratory Rate 16 Blood Pressure 141/76 H BP Systolic 141 BP Diastolic 76 Pulse Ox 05/12/25 11:01 05/12/25 11:02 05/12/25 11:02 Temperature Temperature Source Pulse Rate 76 Respiratory Rate Blood Pressure BP Systolic BP Diastolic Pulse Ox 97 100 05/12/25 11:03 05/12/25 11:03 05/12/25 11:03 Temperature Temperature Source Pulse Rate 70 Respiratory Rate 16 Blood Pressure 131/74 H BP Systolic 131 BP Diastolic 74 Pulse Ox 05/12/25 11:03 05/12/25 11:05 05/12/25 11:05 Temperature Temperature Source Pulse Rate 81 Respiratory Rate Blood Pressure 133/80 H BP Systolic 133 BP Diastolic 80 Pulse Ox 98 05/12/25 11:05 05/12/25 11:05 05/12/25 11:07 Temperature Temperature Source Pulse Rate 81 Respiratory Rate 16 Blood Pressure BP Systolic BP Diastolic Pulse Ox 98 05/12/25 11:07 05/12/25 11:07 05/12/25 11:07 Temperature Temperature Source Pulse Rate 76 Respiratory Rate Blood Pressure 129/85 H BP Systolic 129 BP Diastolic 85 Pulse Ox 100 05/12/25 11:07 05/12/25 11:07 05/12/25 11:12 Temperature Temperature Source Pulse Rate 79 Respiratory Rate 16 Blood Pressure BP Systolic BP Diastolic Pulse Ox 96 05/12/25 11:12 05/12/25 11:13 05/12/25 11:13 Temperature Temperature Source Pulse Rate 71 Respiratory Rate Blood Pressure 125/80 H BP Systolic 125 BP Diastolic 80 Pulse Ox 100 05/12/25 11:13 05/12/25 11:13 05/12/25 11:17 Temperature Temperature Source Pulse Rate 71 Respiratory Rate 16 Blood Pressure BP Systolic BP Diastolic Pulse Ox 98 05/12/25 11:17 05/12/25 11:18 05/12/25 11:18 Temperature Temperature Source Pulse Rate 68 Respiratory Rate Blood Pressure 132/78 H BP Systolic 132 BP Diastolic 78 Pulse Ox 100 05/12/25 11:18 05/12/25 11:18 05/12/25 11:22 Temperature Temperature Source Pulse Rate 74 Respiratory Rate 16 Blood Pressure BP Systolic BP Diastolic Pulse Ox 100 05/12/25 11:22 05/12/25 11:23 05/12/25 11:23 Temperature Temperature Source Pulse Rate 69 Respiratory Rate Blood Pressure 129/81 H BP Systolic 129 BP Diastolic 81 Pulse Ox 100 05/12/25 11:23 05/12/25 11:23 05/12/25 11:27 Temperature Temperature Source Pulse Rate 76 Respiratory Rate 16 Blood Pressure BP Systolic BP Diastolic Pulse Ox 98 05/12/25 11:27 05/12/25 11:28 05/12/25 11:28 Temperature Temperature Source Pulse Rate 72 Respiratory Rate Blood Pressure 129/79 H BP Systolic 129 BP Diastolic 79 Pulse Ox 100 05/12/25 11:28 05/12/25 11:28 05/12/25 11:32 Temperature Temperature Source Pulse Rate 67 Respiratory Rate 16 Blood Pressure BP Systolic BP Diastolic Pulse Ox 98 05/12/25 11:32 05/12/25 11:32 05/12/25 11:32 Temperature Temperature Source Pulse Rate 75 Respiratory Rate Blood Pressure 123/78 H BP Systolic 123 BP Diastolic 78 Pulse Ox 100 05/12/25 11:32 05/12/25 11:32 05/12/25 11:32 Temperature Temperature Source Temporal Pulse Rate Respiratory Rate 16 Blood Pressure BP Systolic BP Diastolic Pulse Ox 98 05/12/25 11:32 05/12/25 11:37 05/12/25 11:37 Temperature 97.8 F Temperature Source Pulse Rate 72 Respiratory Rate Blood Pressure BP Systolic BP Diastolic Pulse Ox 100 05/12/25 11:41 05/12/25 11:41 05/12/25 11:47 Temperature Temperature Source Pulse Rate 72 85 Respiratory Rate Blood Pressure BP Systolic BP Diastolic Pulse Ox 100 05/12/25 11:47 05/12/25 11:51 05/12/25 11:51 Temperature Temperature Source Pulse Rate 76 Respiratory Rate Blood Pressure BP Systolic BP Diastolic Pulse Ox 100 99 05/12/25 12:26 05/12/25 12:26 05/12/25 12:26 Temperature Temperature Source Pulse Rate 81 Respiratory Rate 16 Blood Pressure 125/76 H BP Systolic 125 BP Diastolic 76 Pulse Ox 05/12/25 12:26 05/12/25 12:26 05/12/25 12:26 Temperature 98.3 F Temperature Source Temporal Pulse Rate Respiratory Rate Blood Pressure BP Systolic BP Diastolic Pulse Ox 99 05/12/25 12:26 05/12/25 12:26 05/12/25 13:46 Temperature Temperature Source Pulse Rate 87 Respiratory Rate Blood Pressure 135/85 H BP Systolic 135 BP Diastolic 85 Pulse Ox 100 05/12/25 13:46 05/12/25 13:46 05/12/25 13:46 Temperature Temperature Source Pulse Rate 81 Respiratory Rate 16 Blood Pressure BP Systolic BP Diastolic Pulse Ox 100 05/12/25 13:46 05/12/25 14:23 05/12/25 14:23 Temperature Temperature Source Pulse Rate 78 Respiratory Rate Blood Pressure 123/88 H BP Systolic 123 BP Diastolic 88 Pulse Ox 98 05/12/25 14:43 05/12/25 14:43 05/12/25 14:43 Temperature Temperature Source Pulse Rate 81 Respiratory Rate Blood Pressure 134/83 H BP Systolic 134 BP Diastolic 83 Pulse Ox 99 05/12/25 14:43 05/12/25 14:43 05/12/25 14:43 Temperature Temperature Source Temporal Pulse Rate Respiratory Rate 16 Blood Pressure BP Systolic BP Diastolic Pulse Ox 99 05/12/25 14:43 05/12/25 14:48 05/12/25 14:48 Temperature 98.4 F Temperature Source Pulse Rate 77 Respiratory Rate Blood Pressure BP Systolic BP Diastolic Pulse Ox 100 05/12/25 14:53 05/12/25 14:53 05/12/25 14:58 Temperature Temperature Source Pulse Rate 78 Respiratory Rate Blood Pressure 137/87 H BP Systolic 137 BP Diastolic 87 Pulse Ox 100 05/12/25 14:58 05/12/25 14:58 05/12/25 14:58 Temperature Temperature Source Pulse Rate 78 77 Respiratory Rate Blood Pressure BP Systolic BP Diastolic Pulse Ox 100 05/12/25 14:58 05/12/25 14:58 05/12/25 15:03 Temperature Temperature Source Pulse Rate 73 Respiratory Rate 16 Blood Pressure BP Systolic BP Diastolic Pulse Ox 100 05/12/25 15:03 05/12/25 15:08 05/12/25 15:08 Temperature Temperature Source Pulse Rate 84 Respiratory Rate Blood Pressure BP Systolic BP Diastolic Pulse Ox 100 100 05/12/25 15:13 05/12/25 15:13 05/12/25 15:13 Temperature Temperature Source Pulse Rate 74 Respiratory Rate Blood Pressure 140/93 H BP Systolic 140 BP Diastolic 93 Pulse Ox 100 05/12/25 15:13 05/12/25 15:13 05/12/25 15:18 Temperature Temperature Source Pulse Rate 80 Respiratory Rate 16 Blood Pressure BP Systolic BP Diastolic Pulse Ox 98 05/12/25 15:18 05/12/25 15:23 05/12/25 15:23 Temperature Temperature Source Pulse Rate 80 Respiratory Rate Blood Pressure BP Systolic BP Diastolic Pulse Ox 100 100 05/12/25 15:28 05/12/25 15:28 05/12/25 15:28 Temperature Temperature Source Pulse Rate 76 78 Respiratory Rate Blood Pressure 144/90 H BP Systolic 144 BP Diastolic 90 Pulse Ox 05/12/25 15:28 05/12/25 15:28 05/12/25 15:28 Temperature Temperature Source Pulse Rate Respiratory Rate 16 Blood Pressure BP Systolic BP Diastolic Pulse Ox 100 98 05/12/25 15:33 05/12/25 15:33 05/12/25 15:38 Temperature Temperature Source Pulse Rate 66 85 Respiratory Rate Blood Pressure BP Systolic BP Diastolic Pulse Ox 99 05/12/25 15:38 05/12/25 15:43 05/12/25 15:43 Temperature Temperature Source Pulse Rate 75 Respiratory Rate Blood Pressure 142/87 H BP Systolic 142 BP Diastolic 87 Pulse Ox 100 05/12/25 15:43 05/12/25 15:43 05/12/25 15:43 Temperature Temperature Source Pulse Rate Respiratory Rate 16 Blood Pressure BP Systolic BP Diastolic Pulse Ox 100 98 05/12/25 15:45 05/12/25 15:45 05/12/25 15:48 Temperature Temperature Source Pulse Rate 81 81 Respiratory Rate Blood Pressure BP Systolic BP Diastolic Pulse Ox 93 05/12/25 15:48 05/12/25 15:53 05/12/25 15:53 Temperature Temperature Source Pulse Rate 77 Respiratory Rate Blood Pressure BP Systolic BP Diastolic Pulse Ox 100 100 05/12/25 15:58 05/12/25 15:58 05/12/25 15:58 Temperature Temperature Source Pulse Rate 77 82 Respiratory Rate Blood Pressure 128/69 H BP Systolic 128 BP Diastolic 69 Pulse Ox 05/12/25 15:58 05/12/25 15:58 05/12/25 15:58 Temperature Temperature Source Temporal Pulse Rate Respiratory Rate 16 Blood Pressure BP Systolic BP Diastolic Pulse Ox 100 05/12/25 15:58 05/12/25 15:58 05/12/25 16:03 Temperature 97.4 F L Temperature Source Pulse Rate 86 Respiratory Rate Blood Pressure BP Systolic BP Diastolic Pulse Ox 100 05/12/25 16:03 05/12/25 16:08 05/12/25 16:08 Temperature Temperature Source Pulse Rate 72 Respiratory Rate Blood Pressure BP Systolic BP Diastolic Pulse Ox 100 100 05/12/25 16:13 05/12/25 16:13 05/12/25 16:13 Temperature Temperature Source Pulse Rate 69 Respiratory Rate Blood Pressure 128/78 H BP Systolic 128 BP Diastolic 78 Pulse Ox 100 Weight: 81.6 kg Vital Signs Temp Pulse Resp BP Pulse Ox 05/12/25 16:13 100 05/12/25 16:13 69 05/12/25 16:13 128/78 H 05/12/25 16:08 100 05/12/25 16:08 72 05/12/25 16:03 100 05/12/25 16:03 86 05/12/25 15:58 97.4 F L 05/12/25 15:58 100 05/12/25 15:58 16 05/12/25 15:58 100 05/12/25 15:58 82 05/12/25 15:58 77 05/12/25 15:58 128/69 H 05/12/25 15:53 100 05/12/25 15:53 77 05/12/25 15:48 100 05/12/25 15:48 81 05/12/25 15:45 93 05/12/25 15:45 81 05/12/25 15:43 98 05/12/25 15:43 16 05/12/25 15:43 100 05/12/25 15:43 75 05/12/25 15:43 142/87 H 05/12/25 15:38 100 05/12/25 15:38 85 05/12/25 15:33 99 05/12/25 15:33 66 05/12/25 15:28 98 05/12/25 15:28 16 05/12/25 15:28 100 05/12/25 15:28 78 05/12/25 15:28 76 05/12/25 15:28 144/90 H 05/12/25 15:23 100 05/12/25 15:23 80 05/12/25 15:18 100 05/12/25 15:18 80 05/12/25 15:13 98 05/12/25 15:13 16 05/12/25 15:13 100 05/12/25 15:13 74 05/12/25 15:13 140/93 H 05/12/25 15:08 100 05/12/25 15:08 84 05/12/25 15:03 100 05/12/25 15:03 73 05/12/25 14:58 100 05/12/25 14:58 16 05/12/25 14:58 100 05/12/25 14:58 77 05/12/25 14:58 78 05/12/25 14:58 137/87 H 05/12/25 14:53 100 05/12/25 14:53 78 05/12/25 14:48 100 05/12/25 14:48 77 05/12/25 14:43 98.4 F 05/12/25 14:43 99 05/12/25 14:43 16 05/12/25 14:43 99 05/12/25 14:43 81 05/12/25 14:43 134/83 H 05/12/25 14:23 78 05/12/25 14:23 123/88 H 05/12/25 13:46 98 05/12/25 13:46 16 05/12/25 13:46 100 05/12/25 13:46 81 05/12/25 13:46 135/85 H 05/12/25 12:26 100 05/12/25 12:26 87 05/12/25 12:26 98.3 F 05/12/25 12:26 99 05/12/25 12:26 16 05/12/25 12:26 81 05/12/25 12:26 125/76 H 05/12/25 11:51 99 05/12/25 11:51 76 05/12/25 11:47 100 05/12/25 11:47 85 05/12/25 11:41 100 05/12/25 11:41 72 05/12/25 11:37 100 05/12/25 11:37 72 05/12/25 11:32 97.8 F 05/12/25 11:32 98 05/12/25 11:32 16 05/12/25 11:32 75 05/12/25 11:32 123/78 H 05/12/25 11:32 100 05/12/25 11:32 67 05/12/25 11:28 98 05/12/25 11:28 16 05/12/25 11:28 72 05/12/25 11:28 129/79 H 05/12/25 11:27 100 05/12/25 11:27 76 05/12/25 11:23 98 11/20/25 11:23 16 05/12/25 11:23 69 05/12/25 11:23 129/81 H 05/12/25 11:22 100 05/12/25 11:22 74 05/12/25 11:18 100 05/12/25 11:18 16 05/12/25 11:18 68 05/12/25 11:18 132/78 H 05/12/25 11:17 100 05/12/25 11:17 71 05/12/25 11:13 98 05/12/25 11:13 16 05/12/25 11:13 71 05/12/25 11:13 125/80 H 05/12/25 11:12 100 05/12/25 11:12 79 05/12/25 11:07 96 05/12/25 11:07 16 05/12/25 11:07 76 05/12/25 11:07 129/85 H 05/12/25 11:07 100 05/12/25 11:07 81 05/12/25 11:05 98 05/12/25 11:05 16 05/12/25 11:05 81 05/12/25 11:05 133/80 H 05/12/25 11:03 98 05/12/25 11:03 16 05/12/25 11:03 70 05/12/25 11:03 131/74 H 05/12/25 11:02 100 05/12/25 11:02 76 05/12/25 11:01 97 05/12/25 11:01 16 05/12/25 11:01 75 05/12/25 11:01 141/76 H 05/12/25 10:57 98 05/12/25 10:57 16 05/12/25 10:57 77 05/12/25 10:57 137/91 H 05/12/25 10:53 98 05/12/25 10:53 16 05/12/25 10:53 97 05/12/25 10:53 81 05/12/25 10:53 137/90 H 05/12/25 10:48 98 05/12/25 10:48 16 05/12/25 10:48 100 05/12/25 10:48 87 05/12/25 10:48 140/92 H 05/12/25 09:08 100 05/12/25 09:08 77 05/12/25 09:07 97.4 F L 05/12/25 09:07 98 05/12/25 09:07 16 05/12/25 09:07 77 05/12/25 09:07 118/80 05/12/25 09:07 87 05/12/25 09:07 129/94 H 05/12/25 08:10 98.6 F 05/12/25 08:10 98 05/12/25 08:10 16 05/12/25 08:10 85 05/12/25 08:10 137/86 H Lab tests last 48H 05/12/25 05/12/25 07:50 09:30 WBC 13.6 H RBC 3.81 L Hgb 9.5 L Hct 29.2 L MCV 76.6 L MCH 24.9 L MCHC 32.5 RDW Std Deviation 44.0 H RDW Coeff of Joe 15.9 H Plt Count 179 MPV 11.9 Immature Gran % (Auto) 1.600 H Neut % (Auto) 67.1 Lymph % (Auto) 21.9 Leslie % (Auto) 5.4 Eos % (Auto) 3.4 Baso % (Auto) 0.6 Absolute Neuts (auto) 9.1 H Absolute Lymphs (auto) 2.99 Nucleated RBC % 0 Urine Opiates Screen NEGATIVE U Buprenorphine Qual NEGATIVE Ur Oxycodone Screen NEGATIVE Urine Methadone Screen NEGATIVE Urine Fentanyl Screen NEGATIVE Ur Barbiturates Screen NEGATIVE Ur Phencyclidine Scrn NEGATIVE Ur Amphetamines Screen NEGATIVE U Benzodiazepines Scrn NEGATIVE Urine Cocaine Screen NEGATIVE U Cannabinoids Screen NEGATIVE Syphilis Total Ab Nonreactive Blood Type A POSITIVE Antibody Screen NEGATIVE Vital Signs Vital Signs Vital Signs: 05/12/25 08:10 05/12/25 08:10 05/12/25 08:10 Temperature Temperature Source Temporal Pulse Rate 85 Respiratory Rate Blood Pressure 137/86 H BP Systolic 137 BP Diastolic 86 Pulse Ox 05/12/25 08:10 05/12/25 08:10 05/12/25 08:10 Temperature 98.6 F Temperature Source Pulse Rate Respiratory Rate 16 Blood Pressure BP Systolic BP Diastolic Pulse Ox 98 05/12/25 09:07 05/12/25 09:07 05/12/25 09:07 Temperature Temperature Source Pulse Rate 87 Respiratory Rate Blood Pressure 129/94 H 118/80 BP Systolic 129 118 BP Diastolic 94 80 Pulse Ox 05/12/25 09:07 05/12/25 09:07 05/12/25 09:07 Temperature Temperature Source Temporal Pulse Rate 77 Respiratory Rate 16 Blood Pressure BP Systolic BP Diastolic Pulse Ox 05/12/25 09:07 05/12/25 09:07 05/12/25 09:08 Temperature 97.4 F L Temperature Source Pulse Rate 77 Respiratory Rate Blood Pressure BP Systolic BP Diastolic Pulse Ox 98 05/12/25 09:08 05/12/25 10:48 05/12/25 10:48 Temperature Temperature Source Pulse Rate 87 Respiratory Rate Blood Pressure 140/92 H BP Systolic 140 BP Diastolic 92 Pulse Ox 100 05/12/25 10:48 05/12/25 10:48 05/12/25 10:48 Temperature Temperature Source Pulse Rate Respiratory Rate 16 Blood Pressure BP Systolic BP Diastolic Pulse Ox 100 98 05/12/25 10:53 05/12/25 10:53 05/12/25 10:53 Temperature Temperature Source Pulse Rate 81 Respiratory Rate Blood Pressure 137/90 H BP Systolic 137 BP Diastolic 90 Pulse Ox 97 05/12/25 10:53 05/12/25 10:53 05/12/25 10:57 Temperature Temperature Source Pulse Rate Respiratory Rate 16 Blood Pressure 137/91 H BP Systolic 137 BP Diastolic 91 Pulse Ox 98 05/12/25 10:57 05/12/25 10:57 05/12/25 10:57 Temperature Temperature Source Pulse Rate 77 Respiratory Rate 16 Blood Pressure BP Systolic BP Diastolic Pulse Ox 98 05/12/25 11:01 05/12/25 11:01 05/12/25 11:01 Temperature Temperature Source Pulse Rate 75 Respiratory Rate 16 Blood Pressure 141/76 H BP Systolic 141 BP Diastolic 76 Pulse Ox 05/12/25 11:01 05/12/25 11:02 05/12/25 11:02 Temperature Temperature Source Pulse Rate 76 Respiratory Rate Blood Pressure BP Systolic BP Diastolic Pulse Ox 97 100 05/12/25 11:03 05/12/25 11:03 05/12/25 11:03 Temperature Temperature Source Pulse Rate 70 Respiratory Rate 16 Blood Pressure 131/74 H BP Systolic 131 BP Diastolic 74 Pulse Ox 05/12/25 11:03 05/12/25 11:05 05/12/25 11:05 Temperature Temperature Source Pulse Rate 81 Respiratory Rate Blood Pressure 133/80 H BP Systolic 133 BP Diastolic 80 Pulse Ox 98 05/12/25 11:05 05/12/25 11:05 05/12/25 11:07 Temperature Temperature Source Pulse Rate 81 Respiratory Rate 16 Blood Pressure BP Systolic BP Diastolic Pulse Ox 98 05/12/25 11:07 05/12/25 11:07 05/12/25 11:07 Temperature Temperature Source Pulse Rate 76 Respiratory Rate Blood Pressure 129/85 H BP Systolic 129 BP Diastolic 85 Pulse Ox 100 05/12/25 11:07 05/12/25 11:07 05/12/25 11:12 Temperature Temperature Source Pulse Rate 79 Respiratory Rate 16 Blood Pressure BP Systolic BP Diastolic Pulse Ox 96 05/12/25 11:12 05/12/25 11:13 05/12/25 11:13 Temperature Temperature Source Pulse Rate 71 Respiratory Rate Blood Pressure 125/80 H BP Systolic 125 BP Diastolic 80 Pulse Ox 100 05/12/25 11:13 05/12/25 11:13 05/12/25 11:17 Temperature Temperature Source Pulse Rate 71 Respiratory Rate 16 Blood Pressure BP Systolic BP Diastolic Pulse Ox 98 05/12/25 11:17 05/12/25 11:18 05/12/25 11:18 Temperature Temperature Source Pulse Rate 68 Respiratory Rate Blood Pressure 132/78 H BP Systolic 132 BP Diastolic 78 Pulse Ox 100 05/12/25 11:18 05/12/25 11:18 05/12/25 11:22 Temperature Temperature Source Pulse Rate 74 Respiratory Rate 16 Blood Pressure BP Systolic BP Diastolic Pulse Ox 100 05/12/25 11:22 05/12/25 11:23 05/12/25 11:23 Temperature Temperature Source Pulse Rate 69 Respiratory Rate Blood Pressure 129/81 H BP Systolic 129 BP Diastolic 81 Pulse Ox 100 05/12/25 11:23 05/12/25 11:23 05/12/25 11:27 Temperature Temperature Source Pulse Rate 76 Respiratory Rate 16 Blood Pressure BP Systolic BP Diastolic Pulse Ox 98 05/12/25 11:27 05/12/25 11:28 05/12/25 11:28 Temperature Temperature Source Pulse Rate 72 Respiratory Rate Blood Pressure 129/79 H BP Systolic 129 BP Diastolic 79 Pulse Ox 100 05/12/25 11:28 05/12/25 11:28 05/12/25 11:32 Temperature Temperature Source Pulse Rate 67 Respiratory Rate 16 Blood Pressure BP Systolic BP Diastolic Pulse Ox 98 05/12/25 11:32 05/12/25 11:32 05/12/25 11:32 Temperature Temperature Source Pulse Rate 75 Respiratory Rate Blood Pressure 123/78 H BP Systolic 123 BP Diastolic 78 Pulse Ox 100 05/12/25 11:32 05/12/25 11:32 05/12/25 11:32 Temperature Temperature Source Temporal Pulse Rate Respiratory Rate 16 Blood Pressure BP Systolic BP Diastolic Pulse Ox 98 05/12/25 11:32 05/12/25 11:37 05/12/25 11:37 Temperature 97.8 F Temperature Source Pulse Rate 72 Respiratory Rate Blood Pressure BP Systolic BP Diastolic Pulse Ox 100 05/12/25 11:41 05/12/25 11:41 05/12/25 11:47 Temperature Temperature Source Pulse Rate 72 85 Respiratory Rate Blood Pressure BP Systolic BP Diastolic Pulse Ox 100 05/12/25 11:47 05/12/25 11:51 05/12/25 11:51 Temperature Temperature Source Pulse Rate 76 Respiratory Rate Blood Pressure BP Systolic BP Diastolic Pulse Ox 100 99 05/12/25 12:26 05/12/25 12:26 05/12/25 12:26 Temperature Temperature Source Pulse Rate 81 Respiratory Rate 16 Blood Pressure 125/76 H BP Systolic 125 BP Diastolic 76 Pulse Ox 05/12/25 12:26 05/12/25 12:26 05/12/25 12:26 Temperature 98.3 F Temperature Source Temporal Pulse Rate Respiratory Rate Blood Pressure BP Systolic BP Diastolic Pulse Ox 99 05/12/25 12:26 05/12/25 12:26 05/12/25 13:46 Temperature Temperature Source Pulse Rate 87 Respiratory Rate Blood Pressure 135/85 H BP Systolic 135 BP Diastolic 85 Pulse Ox 100 05/12/25 13:46 05/12/25 13:46 05/12/25 13:46 Temperature Temperature Source Pulse Rate 81 Respiratory Rate 16 Blood Pressure BP Systolic BP Diastolic Pulse Ox 100 05/12/25 13:46 05/12/25 14:23 05/12/25 14:23 Temperature Temperature Source Pulse Rate 78 Respiratory Rate Blood Pressure 123/88 H BP Systolic 123 BP Diastolic 88 Pulse Ox 98 05/12/25 14:43 05/12/25 14:43 05/12/25 14:43 Temperature Temperature Source Pulse Rate 81 Respiratory Rate Blood Pressure 134/83 H BP Systolic 134 BP Diastolic 83 Pulse Ox 99 05/12/25 14:43 05/12/25 14:43 05/12/25 14:43 Temperature Temperature Source Temporal Pulse Rate Respiratory Rate 16 Blood Pressure BP Systolic BP Diastolic Pulse Ox 99 05/12/25 14:43 05/12/25 14:48 05/12/25 14:48 Temperature 98.4 F Temperature Source Pulse Rate 77 Respiratory Rate Blood Pressure BP Systolic BP Diastolic Pulse Ox 100 05/12/25 14:53 05/12/25 14:53 05/12/25 14:58 Temperature Temperature Source Pulse Rate 78 Respiratory Rate Blood Pressure 137/87 H BP Systolic 137 BP Diastolic 87 Pulse Ox 100 05/12/25 14:58 05/12/25 14:58 05/12/25 14:58 Temperature Temperature Source Pulse Rate 78 77 Respiratory Rate Blood Pressure BP Systolic BP Diastolic Pulse Ox 100 05/12/25 14:58 05/12/25 14:58 05/12/25 15:03 Temperature Temperature Source Pulse Rate 73 Respiratory Rate 16 Blood Pressure BP Systolic BP Diastolic Pulse Ox 100 05/12/25 15:03 05/12/25 15:08 05/12/25 15:08 Temperature Temperature Source Pulse Rate 84 Respiratory Rate Blood Pressure BP Systolic BP Diastolic Pulse Ox 100 100 05/12/25 15:13 05/12/25 15:13 05/12/25 15:13 Temperature Temperature Source Pulse Rate 74 Respiratory Rate Blood Pressure 140/93 H BP Systolic 140 BP Diastolic 93 Pulse Ox 100 05/12/25 15:13 05/12/25 15:13 05/12/25 15:18 Temperature Temperature Source Pulse Rate 80 Respiratory Rate 16 Blood Pressure BP Systolic BP Diastolic Pulse Ox 98 05/12/25 15:18 05/12/25 15:23 05/12/25 15:23 Temperature Temperature Source Pulse Rate 80 Respiratory Rate Blood Pressure BP Systolic BP Diastolic Pulse Ox 100 100 05/12/25 15:28 05/12/25 15:28 05/12/25 15:28 Temperature Temperature Source Pulse Rate 76 78 Respiratory Rate Blood Pressure 144/90 H BP Systolic 144 BP Diastolic 90 Pulse Ox 05/12/25 15:28 05/12/25 15:28 05/12/25 15:28 Temperature Temperature Source Pulse Rate Respiratory Rate 16 Blood Pressure BP Systolic BP Diastolic Pulse Ox 100 98 05/12/25 15:33 05/12/25 15:33 05/12/25 15:38 Temperature Temperature Source Pulse Rate 66 85 Respiratory Rate Blood Pressure BP Systolic BP Diastolic Pulse Ox 99 05/12/25 15:38 05/12/25 15:43 05/12/25 15:43 Temperature Temperature Source Pulse Rate 75 Respiratory Rate Blood Pressure 142/87 H BP Systolic 142 BP Diastolic 87 Pulse Ox 100 05/12/25 15:43 05/12/25 15:43 05/12/25 15:43 Temperature Temperature Source Pulse Rate Respiratory Rate 16 Blood Pressure BP Systolic BP Diastolic Pulse Ox 100 98 05/12/25 15:45 05/12/25 15:45 05/12/25 15:48 Temperature Temperature Source Pulse Rate 81 81 Respiratory Rate Blood Pressure BP Systolic BP Diastolic Pulse Ox 93 05/12/25 15:48 05/12/25 15:53 05/12/25 15:53 Temperature Temperature Source Pulse Rate 77 Respiratory Rate Blood Pressure BP Systolic BP Diastolic Pulse Ox 100 100 05/12/25 15:58 05/12/25 15:58 05/12/25 15:58 Temperature Temperature Source Pulse Rate 77 82 Respiratory Rate Blood Pressure 128/69 H BP Systolic 128 BP Diastolic 69 Pulse Ox 05/12/25 15:58 05/12/25 15:58 05/12/25 15:58 Temperature Temperature Source Temporal Pulse Rate Respiratory Rate 16 Blood Pressure BP Systolic BP Diastolic Pulse Ox 100 05/12/25 15:58 05/12/25 15:58 05/12/25 16:03 Temperature 97.4 F L Temperature Source Pulse Rate 86 Respiratory Rate Blood Pressure BP Systolic BP Diastolic Pulse Ox 100 05/12/25 16:03 05/12/25 16:08 05/12/25 16:08 Temperature Temperature Source Pulse Rate 72 Respiratory Rate Blood Pressure BP Systolic BP Diastolic Pulse Ox 100 100 05/12/25 16:13 05/12/25 16:13 05/12/25 16:13 Temperature Temperature Source Pulse Rate 69 Respiratory Rate Blood Pressure 128/78 H BP Systolic 128 BP Diastolic 78 Pulse Ox 100 Weight Weight: 81.6 kg Body Mass Index (BMI) 29.9 PRE- weight 73 kg PRE- Body Mass Index 26.7 (BMI) General Weight: 81.6 kg
[2025-05-13] VITALS (8 sets, daily range): BP systolic 117–132; BP diastolic 60–90; PULSE 62–88; RESP 14–16; TEMP 36.3–36.8; O2SAT 96–98
--- NOTE | 2025-05-13 08:45 | PCM.PN.OB ---
Subjective Subjective Patient is doing well. She denies headache or vision changes. She denies chest pain, shortness of breath, lightheadedness, dizziness, leg pain. She is ambulating and voiding without difficulty. She is tolerating a diet without nausea or vomiting. Lochia is normal. She is breast-feeding without complaint. She desires discharge today. Objective Data Objective Data Vital Signs: Vital Signs Temp Pulse Resp BP Pulse Ox O2 Del Method 98.3 F 73 16 117/60 98 Room Air 05/13/25 03:29 05/13/25 03:29 05/13/25 03:29 05/13/25 03:29 05/13/25 03:29 05/13/25 03:29 Oxygen Delivery Method Room Air Weight: 179 lb 14.355 oz Body Mass Index (BMI) 29.9 Intake & Output: Intake and Output for Last 24 Hours 05/11/25 05/12/25 05/13/25 23:59 23:59 23:59 Intake Total 2403.98 / 2403.98 Output Total 1150 / 1150 Balance 1253.98 / 1253.98 Lab / Micro Data 05/12/25 07:50 Labs: Laboratory Results - last 24 hr 05/12/25 07:50: Blood Type A POSITIVE, Antibody Screen NEGATIVE 05/12/25 09:30: Urine Opiates Screen NEGATIVE, U Buprenorphine Qual NEGATIVE, Ur Oxycodone Screen NEGATIVE, Urine Methadone Screen NEGATIVE, Urine Fentanyl Screen NEGATIVE, Ur Barbiturates Screen NEGATIVE, Ur Phencyclidine Scrn NEGATIVE, Ur Amphetamines Screen NEGATIVE, U Benzodiazepines Scrn NEGATIVE, Urine Cocaine Screen NEGATIVE, U Cannabinoids Screen NEGATIVE Physical Exam Const alert and no apparent distress Constitutional Narrative: General Appearance: comfortable Assessment & Plan (1) Chronic hypertension in obstetric context in third trimester: (2) Vaginal delivery: PLAN: Patient is day 1 from a vaginal delivery. She is doing well and desires discharge home. Preeclampsia precautions reviewed. Blood pressure has been normal since delivery and she has no preeclampsia symptoms. She will monitor her blood pressure over the weekend. She will return to the office in 1 week for blood pressure check. Discussed reasons to call. Discharge instructions reviewed.
--- NOTE | 2025-05-13 08:48 | DCINST_ITS ---
Discharge Instructions DC O2, CPAP, BIPAP needs Home O2 Discharge instructions: No Dressing / Incision Discharge Activity: May Drive and May Shower May resume sexual activity in: 6 weeks Additional Activity Instructions:: Check your blood pressure at home once-twice daily. Call if you have blood pressures 140/90 or higher, and/or if you have a severe persistent headache or persistent vision changes, persistent upper abdominal pain Dressing / Incision Call your doctor if you observe: Fever of 101 or Higher, Inability to have a bowel movement, Using more than 1 pad per hour, Shortness of breath, Dizziness, Swelling in the ankles, Chest pain, Increased palpitations (irregular heartbeat), Calf discomfort and Uncontrolled pain Cleanse incision/area with: Soap & Water Follow Up Care Please Follow Up With: Kishor Veliz MD When: 1 week for blood pressure check 6 week visit Test Results: Test results from this visit will be discussed in further detail at your follow- up appointment, if applicable. Discharge Plan Admission Admit Date/Time: 05/12/25 07:15 Primary Reason for Your Visit: delivery Attending Provider: Kishor Veliz Primary Care Provider: Davdi Mckinney Instructions Patient Instructions: After a Vaginal Delivery (WP) Discharge Orders/Prescriptions Prescriptions: Continued omaeqijc-ult-[id number]-FA 1 mg Tablet 1 tab PO DAILY albuterol sulfate 90 mcg/actuation HFA aerosol inhaler 1 inh inhalation Q6H PRN (Reason: shortness of breath or wheezing) acetaminophen 500 mg tablet 1,000 mg PO TID PRN PRN (Reason: pain) ondansetron 4 mg tablet,disintegrating 4 mg PO TID PRN PRN (Reason: nausea/vomiting) fluticasone propionate 50 mcg/actuation spray,suspension 1 spray INTRANASAL BID epinephrine [EpiPen 2-Hero] 0.3 mg/0.3 mL auto-injector 0.3 mg IM Q10M PRN PRN (Reason: anaphylaxis) Qty: 2 0RF Rx Instructions: for 2 doses Referrals / Follow Up: David Mckinney MD [Primary Care Provider, Family Practice] Disposition Disposition (needs filled in before D/C Order can be placed): Home, Self Care
--- NOTE | 2025-05-13 12:15 | CASEMGMT ---
Social Work Assessment Labor and Delivery Unit Patient Address: [address] [place] [address] Phone number: [phone] Date of Referral: 05/12/25 Time of Referral:?[id number] Referred By: Kishor Veliz MD Date of Intervention: 05/13/25 Time of Intervention:?5 Reason for Referral:?mental health, anxiety, depression, 26 week loss, history of meth 5 years ago History obtained from: medical records and mother of baby (MOB) Household composition: MOB reports that currently residing in her home is herself, her 4 children (8yo girl Judith, 6yo girl Radha, 3yo boy Octaviano, and 1yo boy Barry), MOB's mother, 5 out of 6 of maternal grandmother's children, and baby (Ivonne Allen) to be added to home when ready for discharge. MOB states that housing is safe and secure. MOB also confirmed there is appropriate bedding for all family members in the home. Currently, FOB is staying at a friend's house, but MOB states her immediate family is searching for an apartment for MOB, FOB, and MOB's 5 children. Patient's parent/guardian status:?MOB reports that father of baby (FOB) is Sarath Boateng. MOB and FOB have been together for 6 years. MOB reports that baby is the only child that MOB and FOB share. Medical History: AREN is 29 year old female who is 6, para 4 - now 5 following labor and delivery of . AREN faced a stillborn at 26 weeks after her 8 year old and 6 year old. AREN received [facility] during with [facility]. AREN presented to hospital for delivery at 37 weeks gestation on 05/12/2025. [place] baby girl, Ivonne Allen, was born weighing 6lb 8oz with apgars of 9 and 9 at one and five minutes of life respectively. AREN is attempting breast feeding, but reports likely needing formula to supplement as well. Baby will be followed by Dr David Mckinney for pediatrics. Educational Status:?MOB reports being a high school graduate. Financial Status: AREN is currently unemployed, though MOB states intent to eventually get a job as a [employer] internship at [employer]. 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 FOB reportedly works at a [employer] and can only take a little bit of time off work. Supplies: MOB has reportedly obtained all necessary baby supplies, including: car seat, safe sleep space, clothes, diapers, and wipes. MOB reports to have all needed bottles and nipples as well to feed baby when that time comes. Childcare/Caregiver(s):?MOB states that MOB will be the main caregiver due to being unemployed, but MOB lives with maternal grandmother who will also help to care for the baby. Transportation:?MOB reports her and FOB both have reliable transportation and MOB denies current needs. Programs/Agencies Involved: MOB reports that S is involved for food stamps, MOB has WIC services and [employer] help as well. Children Services/Legal Issues:?MOB states not having any active CSB cases. MOB did state having one CSB case with AREN's 3 year old son where MOB placed a deadbolt on the door for when people were sleeping to prevent the 3 year old son from escaping the room and falling down the basement stairs. MOB states someone was in their home inspecting something and reported it to CSB. MOB reports this being a very brief investigation and reportedly, nothing came of the investigation. Behavioral Health Issues: ??Mental Health History:?MOB states she has depression and anxiety and was prescribed Zoloft; MOB states last taking this over 6 months ago. MOB states not desiring to restart this unless absolutely necessary. FOB states not having any diagnosed mental health disorders. 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 MOB states going to rehab due to wanting to get my life back on track. FOB also reports being sober for 5 years from meth and other substances. FOB reports smoking nicotine, but doing so outside and never around the children. MOB reports being a former nicotine smoker as well. Family History:?MOB reports knowing there is mental health struggles within the family and reportedly understands the importance of being mindful of her triggers. MOB also understands the importance of ensuring that during this period, AREN is choosing healthy coping skills and talking with her OB as opposed to relapsing. Drug Screens: AREN's drug screen was negative on admission. Family/Social Stressors:? MOB denied any current concerns or stressors at this time as MOB expressed having a large support system. Support Systems: MOB identified having supports of MOB's mother, FOB, and multiple other family members. Depression/Shaken Baby/Safe Sleeping: SW educated MOB on signs and symptoms of baby blues and mood and anxiety disorders to be mindful of during this period. MOB states knowing due to experiencing some anxiety and depression following other deliveries and MOB states being able to talk with Dr Mckinney or her OB to restart Zoloft if necessary. SW ensured MOB knew about counseling options, including [facility]'s maternal mental health programming. SW educated MOB on shaken baby prevention and ABCs of safe sleep. MOB and FOB both expressed understanding. ASSESSMENT:?MOB and baby admitted following labor and delivery. MOB has mental health and substance use history, as well as a stillborn at 26 weeks. MOB states struggling with this loss after giving to her next baby, but reports the last two deliveries to be easier for MOB. This is MOB's 5th child and MOB has only had one CSB case from her 3 year old son's situation. This CSB case was investigated and reportedly the case was closed. MOB has linkage to [employer], [employer], and [facility]. MOB and FOB are not currently living together, though MOB reports looking for an apartment for their family to move into. MOB also has mental health history of anxiety and depression with previous prescription Zoloft, though MOB does not want to restart Zoloft unless needed. MOB talkative and open with SW during completion of assessment. MOB was observed holding baby appropriately while sitting up in the chair. MOB and FOB were receptive to resources provided and discussed. Safe Plan of Care for infant related to substance use:?N/A due to MOB and FOB both reporting being clean and sober from meth and all other substances for 5 years. PLAN:?? No other services requested or indicated. MOB and baby to be discharged when medically ready. Parents were provided literature regarding: signs and symptoms of baby blues and mood and anxiety disorders, Help Me Grow, shaken baby prevention, ABCs of safe sleep and a list of county resources that are available for them should any needs present themselves. Sarah Weinstein, INVESTMENT BANKING ANALYST, DATABASE DBA
--- NOTE | 2025-05-13 13:52 | CASEMGMT ---
Social work -- CSB report Due to MOB and FOB's history of substance use (specifically meth), SW made referral to [facility] (ph: [phone]). SUE spoke with hotline screener, Mandy. Mandy stated likely not needing to do anything with this referral except to document. Sarah Weinstein, TAPE FASTENER MACHINE OPERATOR, GUM MACHINE FILLER
== END 2025-05-13 16:30 | disposition home or self-care (01) | DRG 560 ==
PROVIDERS: Admitting Provider Obstetrics & Gynecology; PCP Family Medicine; Referring Provider Obstetrics & Gynecology; Visit Provider Obstetrics & Gynecology
DX: O10.02 Pre-existing essential hypertension complicating childbirth (principal); Z37.0 Single live birth; O26.23 Pregnancy care for patient with recurrent pregnancy loss, third trimester; D50.9 Iron deficiency anemia, unspecified; Z87.891 Personal history of nicotine dependence; Z3A.37 37 weeks gestation of pregnancy; O99.02 Anemia complicating childbirth
CPT/HCPCS: 59025; 59050; 80307; 85025; 86780; 86850; 86900; 86901; 99221; G0378

== ENCOUNTER → 2025-05-24 | Outpatient (CLI) | payer MEDICAID, SELFPAY ==
[2025-05-24 17:41] LABS: Hematocrit 32.8 % (37-47); Hemoglobin 10.0 g/dL (12.0-15.0); Immature Granulocytes Count 0.020 X10^3/uL (0.0-0.0); Immature Reticulocyte Fraction 17.00 % (3.00-15.90); Mean Corp Hgb Conc 30.5 g/dL (32-36); Mean Corpuscular Volume 79.2 fL (81-99); Mean Platelet Vol. 11.2 fl (6.2-12.0); NRBC Flagged by Analyzer 0 % (0-5); Platelet Count 284 K/mm3 (150-450); RBC Distribution Width CV 16.5 % (11.6-14.6); RBC Distribution Width SD 47.2 fl (35.1-43.9); Red Blood Count 4.14 M/mm3 (4.2-5.4); Reticulocyte Count 1.71 % (0.5-1.5); White Blood Count 7.8 K/mm3 (4.4-11.0)
[2025-05-24 18:26] LABS: AST(SGOT) 16 U/L (<=31); Alanine Aminotransfer ALT/SGPT 12 U/L (<=34); Albumin, Serum 3.8 g/dL (3.5-5.0); Alkaline Phosphatase 145 U/L (35-104); Anion Gap 10 (5-15); BUN 13 mg/dL (4-19); BUN/Creat Ratio 24.5 RATIO (10-20); Calcium,Total 9.0 mg/dL (7.6-11.0); Carbon Dioxide 25.6 mmol/L (21.0-32.0); Chloride 105 mmol/L (98-108); Ferritin 7 ng/mL (22-378); Globulin 3.3 g/dL (2.2-4.2); Glucose 95 mg/dL (70-99); Iron 32 ug/dL (50-170); Iron Binding Capacity,Unsat 495 ug/dL (228-428); Magnesium 2.0 mg/dL (1.5-2.2); Potassium 4.1 mmol/L (3.3-5.1); Vitamin B12 423 pg/mL (180-914)
[2025-05-24 18:39] LABS: Iron Binding Capacity,Total 527 ug/dL (250-450)
[2025-05-26 16:09] LABS: Folate, Hemolysate Test 359.0 ng/mL (Not Estab.); Folate, RBC (Hct) Test 33.5 % (34.0-46.6); Folates, RBC Test 1072 ng/mL (>498)
== END | disposition home or self-care (01) ==
LOC: MTLAB 16:34
PROVIDERS: PCP Family Medicine; Referring Provider Family Medicine; Visit Provider Family Medicine
DX: D50.9 Iron deficiency anemia, unspecified (principal); R19.7 Diarrhea, unspecified
CPT/HCPCS: 36415; 80053; 82607; 82728; 82747; 83540; 83550; 83735; 85014; 85025; 85045

== ENCOUNTER → 2025-05-25 | Outpatient (CLI) | payer MEDICAID, SELFPAY | END | disposition home or self-care (01) | LOC: MTLAB 10:56 | PROVIDERS: PCP Family Medicine; Referring Provider Family Medicine; Visit Provider Family Medicine | DX: R19.7 Diarrhea, unspecified (principal) | CPT/HCPCS: 87493; 87506 ==